=== PATIENT | male | born 1945 | race Two or more races ===

== ENCOUNTER 2021-07-24 15:26 | Emergency (ER) | payer MEDICARE, SELFPAY ==
--- NOTE | ~2021-07-24 | CT_ITS ---
EXAMINATION: CT SOFT TISSUE NECK WITHOUT CONTRAST CLINICAL INFORMATION: Left-sided neck pain. Dysphagia. Difficulty opening mouth. COMPARISON: None TECHNIQUE: Helical imaging was performed in the axial plane with generation of coronal and sagittal reformatted images. This CT examination was performed using dose optimization techniques as appropriate, variously including the following: *Automated exposure control *Adjustment of mA and/or kV according to patient size (this includes techniques or standardized protocols for targeted exams where dose is matched to indication/reason for exam; i.e. extremities or head) *Use of iterative reconstruction technique DLP: 623 mGy-cm FINDINGS: No cervical adenopathy is identified. The parotid glands are homogeneous in attenuation. The submandibular glands are normal. No contour abnormality or pathologic enhancement is seen within the oral cavity or pharyngeal mucosal space. The laryngeal structures are normal. The parapharyngeal fat is preserved. The carotid sheath vasculature opacify normally. No extra mucosal soft tissue mass or fluid collection is seen. No retropharyngeal fluid collection is seen. The thyroid gland is normal. The superior mediastinum is unremarkable. The lung apices are clear. The mastoid air cells and visualized portions of the paranasal sinuses are well-aerated. There is anterior subluxation of the main tibial condyles whereby the left condylar process is perched on the anterior temporal eminence, and the right condylar process is partially subluxed onto the anterior temporal eminence. The degree of subluxation is greater than expected for the positioning of the mandible (jaw relatively closed). End plate osteophytes present at C4-C5, C5-C6 and C6-C7 with accompanying loss of disc space height at C6-C7 and uncovertebral arthrosis. No periapical disease is identified. No osseous abnormalities are seen. The imaged portions of the brain parenchyma are unremarkable. CT/CT soft tissue neck wo con IMPRESSION: No acute soft tissue abnormality to explain the patient's symptom pathology. Anterior subluxation of the mandibular condyles with respect to the mandibular fossae, left greater than right. The clinical significance of this is unclear.
[2021-07-24 15:37] VITALS: BP 134/79; PULSE 80; RESP 18; TEMP 37; O2SAT 96; BMI 30.7
--- NOTE | 2021-07-24 16:46 | ED.GENADULT ---
HPI - General Adult General Chief complaint: General Medical Stated complaint: Neck pain Time Seen by Provider: 07/24/21 16:46 Source: patient and family Mode of arrival: ambulatory Limitations: no limitations History of Present Illness HPI narrative: 76 y/o male presenting with a sore, stiff neck for the last 2 days without any known injury. His pain is worse with movement. It is located on the left anteriolateral aspect of the neck. He reports he feels like something is poking him when he eats and swallows. He is also having a hard time completely opening his jaw because of the pain in his neck. No trouble closing his mouth. He has had no choking episodes. No fever, chills, headache, AMS, ear pain or dental pain. He has multiple medical comorbdities and just recently moved here from [place]. He does not have a PCP in the yet. He comes with his daughter who helps provide history and translate. MD complaint: left sided neck pain Onset (ago): day(s) (2) Location: neck Radiation: non-radiation Severity: moderate Severity scale (1-10): 6 Quality: aching Pain Consistency: intermittent Relieving factors: rest Exacerbating factors: movement Associated symptoms: denies other symptoms Treatments prior to arrival: none Related Data Previous Rx's Medication Instructions Recorded cyclobenzaprine 5 mg tablet 5 mg PO BID PRN #10 tab 07/24/21 Allergies Allergy/AdvReac Type Severity Reaction Status Date / Time No Known Allergies Allergy Verified 07/24/21 15:37 Review of Systems Review of Systems: Constitutional: No Fever, No Chills ENT/Mouth: No sore throat, No Rhinorrhea, No Swallowing Difficulty, No dental pain, No ear pain Eyes: No Eye Pain, No Swelling, No Redness Cardiovascular: No Chest Pain, No SOB, No Orthopnea, + Edema Respiratory: No Cough, No Sputum, No Wheezing, No dyspnea Gastrointestinal: No Nausea, No Vomiting, No Diarrhea, No abdominal Pain Genitourinary: No Dysuria, No Urinary Frequency, No Hematuria Musculoskeletal: + joint pain, + Myalgias Skin: + Skin Lesions, No rash Neuro: No Weakness, No Numbness, No Dizziness, No Headache Heme/Lymph: No Bruising, No Lymphadenopathy PMFSH Past Medical History Medical History (Updated 07/24/21 @ 18:44 by KENJI Koo) Alzheimer's dementia Diabetes HTN (hypertension) Kidney failure Social History Social History Advance Directives: No Advance Directives Information Provided: Yes Physical Exam Vital Signs: Vital Signs: Last Vital Signs Temp 98.5 F 07/24/21 18:29 Pulse 78 07/24/21 18:29 Resp 16 07/24/21 18:29 BP 168/88 H 07/24/21 18:29 Pulse Ox 98 07/24/21 18:29 Body Mass Index 30.7 Appearance: Alert, elderly male laying on the stretcher No acute distress. Eyes: Pupils equal, round and reactive to light. Cataracts present bilaterally ENT: Pharynx normal. Poor dentition without any dental tenderness. Normal TM's bilaterally. No mastoid tenderness. No mandibualr tenderness. Able to open and close jaw. No malocclusion Neck: increased anterior soft tissue/adipose tissue of the neck, no erythema or warmth. soft tissue tenderness on the left side along SCM. no LAD. Pain with rotation to the right. CVS: Normal heart rate and rhythm. Pulses normal. Respiratory: No respiratory distress. Breath sounds normal. Abdomen: Soft and nontender. +BS x4 Skin: Skin warm and dry. Normal skin color. Normal skin turgor. No rashes. Extremities: 2+ lower extremity edema. Neuro: awake and alert, speaks in clear sentences (Portuguese), moves all extremities, came in w/ wheelchair (uses walker at home) Course Course Course Narrative: 76 yo male presenting with nontraumatic left sided neck pain, worse with ROM and palpation. Also reports of FB sensation when he eats and difficulty opening mouth completely (not completely appreciated on exam but daughter reports this). Given his anatomy it is difficult to examine the soft tissues of his neck. Will get CT scan for further evaluation. Reevaluation(s) Reevaluation #1: CT scan showing anterior sublux L>R of the manibular condyles. He has full ROM of this mandible and no problem closing his jaw. Case was d/w and imaging reviewed by Dr. Pickens who also examined the patient. Most likely a chronic finding, possible TMJ. Will give medication to help with spasm in the neck/muscle strain and have him f/u with [facility]. Staff wreath and garland maker hand used to communicate findings and recommendations. Stable for d/c home with outpatient follow up. Discharge Plan Discharge Clinical Impression: TMJ (temporomandibular joint disorder) Neck muscle strain Qualifiers: Encounter type: initial encounter Qualified Code(s): S16.1XXA - Strain of muscle, fascia and tendon at neck level, initial encounter Patient Disposition: Home, Self-Care Instructions: Cervical Strain (ED), Temporomandibular Disorder (ED) Additional Instructions: CT scan showed loose joints in your jaw. No intervention is required at this time. Recommend following up with a oromaxofacial surgeon for further assessment. Take the prescribed medication as needed for neck pain. Use ice and/or heat to the side of your neck as needed for pain. If you develop new or worsening symptoms call 911 or come back to the ER for further evaluation. Prescriptions: New cyclobenzaprine 5 mg tablet 5 mg PO BID PRN (Reason: muscle spasm) Qty: 10 RF: 0 Interventions: ED Discharge Assessment Last Done: 07/24/21 19:53 Discharge Date/Time: 07/24/21 19:58 Print Language: Portuguese
[2021-07-24 18:29] VITALS: BP 168/88; PULSE 78; RESP 16; TEMP 36.9; O2SAT 98
== END 2021-07-24 19:58 | disposition home or self-care (01) ==
PROVIDERS: Emergency Provider Internal Medicine
DX: S16.1XXA Strain of muscle, fascia and tendon at neck level, initial encounter (principal); M54.2 Cervicalgia; M26.603 Bilateral temporomandibular joint disorder, unspecified; X58.XXXA Exposure to other specified factors, initial encounter; Y93.9 Activity, unspecified; Y92.9 Unspecified place or not applicable; Y99.9 Unspecified external cause status; Z79.899 Other long term (current) drug therapy
CPT/HCPCS: 70490; 99284

== ENCOUNTER 2021-09-05 15:18 | Inpatient (IN) | payer MEDICARE, MEDICAID, SELFPAY ==
--- NOTE | ~2021-09-05 | CT_ITS ---
CT HEAD WITHOUT CONTRAST CLINICAL INFORMATION: Confusion. COMPARISON: None available. TECHNIQUE: Contiguous axial imaging was performed from the skull base to vertex without intravenous administration of contrast. This CT examination was performed using dose optimization techniques as appropriate, variously including the following: *Automated exposure control *Adjustment of mA and/or kV according to patient size (this includes techniques or standardized protocols for targeted exams where dose is matched to indication/reason for exam; i.e. extremities or head) *Use of iterative reconstruction technique FINDINGS: There is global cerebral volume loss, there is moderate chronic microangiopathy, and there is atherosclerotic calcification throughout the intracranial arterial vasculature. There is no intracranial hemorrhage, hydrocephalus, extra-axial surface collection, midline shift, or other herniation pattern. Perez to white matter differentiation is diffusely maintained without evidence of an evolved acute territorial infarct. The basilar cisterns are preserved. No significant soft tissue abnormality. No acute osseous abnormality. The paranasal sinuses and the mastoid air cells are well aerated. CT/CT head/brain wo con IMPRESSION: - No acute intracranial abnormality. - There is global cerebral volume loss, there is moderate chronic microangiopathy, and there is atherosclerotic calcification throughout the intracranial arterial vasculature.
--- NOTE | ~2021-09-05 | XR_ITS ---
EXAMINATION: XR CHEST CLINICAL INFORMATION: Confusion COMPARISON: None TECHNIQUE: 2 views of the chest were obtained. FINDINGS: The cardiac silhouette is enlarged. Hilar and mediastinal contours are unremarkable. The lungs are clear. There is bilateral lateral pleural thickening. This may be related to prominent extra pleural fat. There is no pleural effusion. There are degenerative changes of the spine. XR/XR chest 2V IMPRESSION: Enlarged cardiac silhouette. Bilateral lateral pleural thickening probably related to prominent extrapleural fat.
[2021-09-05 15:29] VITALS: BP 135/60; PULSE 110; RESP 18; TEMP 37.3; O2SAT 92; BMI 39.1
--- NOTE | 2021-09-05 15:49 | ECG_ITS ---
Test Reason : WEAKNESS Blood Pressure : / mmHG Vent. Rate : 106 BPM Atrial Rate : 375 BPM P-R Int : 000 ms QRS Dur : 074 ms QT Int : 316 ms P-R-T Axes : 000 040 094 degrees QTc Int : 419 ms Atrial flutter with variable A-V block Low voltage QRS Abnormal ECG No previous ECGs available Referred By: Darius Wells Electronically Signed By:CRUZITO ACEVES MD
--- NOTE | 2021-09-05 15:53 | ED_ITS ---
HPI - General Adult General Chief complaint: General Medical Stated complaint: Weakness, difficulty ambulating Time Seen by Provider: 09/05/21 15:28 Source: patient and family History of Present Illness HPI narrative: Per the patient's son he is much weaker today than his baseline. He has recently been out of his medications from [place]. He has a history of insulin-dependent diabetes. No fevers chills or cough. Positive abdominal distension. No vomiting or diarrhea. Positive urinary incontinence. Positive bilateral pedal edema which is new. Apparently no prior history of similar issues. He denies any other significant focal pain. Related Data Home Medications Medication Instructions Recorded Confirmed allopurinol 300 mg tablet 1 tab PO DAILY 09/05/21 09/05/21 apixaban 5 mg tablet (Eliquis) 1 tab PO BID 09/05/21 09/05/21 citalopram 10 mg tablet 1 tab PO DAILY 09/05/21 09/05/21 donepezil 10 mg tablet 1 tab PO QPM 09/05/21 09/05/21 gabapentin 800 mg tablet 1 tab PO BID 09/05/21 09/05/21 glimepiride 4 mg tablet 1 tab PO BID 09/05/21 09/05/21 irbesartan 300 mg tablet 1 tab PO DAILY 09/05/21 09/05/21 magnesium oxide 1 tab PO DAILY 09/05/21 09/05/21 memantine 10 mg tablet 1 tab PO BID 09/05/21 09/05/21 metoprolol tartrate 100 mg tablet 1 tab PO BID 09/05/21 09/05/21 bcaxfvww-tge-hazje acid 0.4 1 tab PO DAILY 09/05/21 09/05/21 mg-lycopene 300 mcg-lutein 250 mcg tablet (CertaVite Senior) pantoprazole 40 mg tablet,delayed 1 tab PO DAILY 09/05/21 09/05/21 release Previous Rx's Medication Instructions Recorded atorvastatin 40 mg tablet (Lipitor) 40 mg PO BEDTIME #30 tab 09/09/21 bumetanide 1 mg tablet 1 tab PO DAILY #0 tab 09/09/21 Allergies Allergy/AdvReac Type Severity Reaction Status Date / Time No Known Allergies Allergy Verified 09/05/21 20:27 Review of Systems Constitutional: Constitutional: Denies fever(s) Comments: Confusion mental status changes and generalized weakness with inability to walk as of today Cardiovascular: Comments: No chest pain Respiratory: Comments: No dyspnea or cough Gastrointestinal: Comments: Positive abdominal distention without nausea vomiting or diarrhea Genitourinary: Comments: Urinary incontinence at home Musculoskeletal: Comments: Bilateral peripheral edema Integumentary/Breasts: Comments: Redness of bilateral feet and toes Neurologic: Comments: No focal weakness. Positive confusion. Positive generalized weakness PMFSH Past Medical History Medical History Alzheimer's dementia Diabetes HTN (hypertension) Kidney failure Social History Social History Household Members: Family and Children Housing: Apartment Do you presently have visiting nurse or other home services: No Unable to assess alcohol history related to: Unknown Alcohol intake: never Patient Tobacco Use Status: Tobacco use Unknown service: No Current occupational status: retired Physical Exam Vital Signs: Vital Signs: Last Vital Signs Temp 98.7 F 09/09/21 15:13 Pulse 72 09/09/21 15:13 Resp 19 09/09/21 15:13 BP 153/82 H 09/09/21 15:13 Pulse Ox 93 09/09/21 15:13 Body Mass Index 39.1 Const: Other: Generally weak appearing. No acute distress Resp: Other: Clear and equal bilaterally without wheezes rales or rhonchi Cardio: Other: Regular rate and rhythm without murmurs rubs or gallops GI: Other: Soft, nontender. Positive distention. Tympanic to percussion Skin: Other: Warm pink and dry. Bilateral feet with venous stasis changes. Left 3rd toe dorsal aspect with small 0.5 cm circumferential necrotic eschar. No significant surrounding erythema or discharge Neuro: Other: No focal findings Extrem: Other: Bilateral pedal edema, equal Course Course Course Narrative: Mental status change in a diabetic patient was been off his med hernandez. Diabetic ketoacidosis Sepsis Urinary tract infection Dehydration Electrolyte imbalance Acute kidney injury Intracranial hemorrhage or stroke less likely Abdominal distension. Ascites Liver failure Hepatic encephalopathy IV fluids Reevaluation(s) Reevaluation #1: 8:24 p.m.. Workup in emergency department so far shows persistent hyperglycemia despite IV fluids [place]. [place] [address]. D-dimer is normal Potassium is 6. Treated with calcium IV, Kayexalate p.o., insulin IV. Creatinine is 1.96 Continue IV fluids. Hospitalization 8:56 p.m.. Lactic acid is 4.3. Second L of IV fluid artery ordered. Patient is 5 ft 9 in tall. Patient is obese with a BMI > 39. [place] body weight of 70 kilos. Will order total of 2100 mL. No source of infection identified but patient with high white count and high lactic acid. Medical Decision Making Lab Data Result diagrams: 09/09/21 06:06 09/09/21 06:06 Labs: Lab Results 09/05/21 09/05/21 09/05/21 Range/Units 16:05 16:05 16:05 WBC 17.6 H (4.8-10.8) X10*3/uL RBC 4.28 L (4.60-5.80) X10*6/uL Hgb 15.1 (14.0-18.0) g/dl Hct 43.5 (42-52) % MCV 101.6 H (80-98) fL MCH 35.3 H (27.0-33.0) pg MCHC 34.7 (31.0-36.0) g/dl RDW 12.5 (11.0-16.0) % Plt Count 188 (160-400) X10*3/uL MPV 11.7 (9.4-12.4) fL Immature Gran % (Auto) 0.5 H (0.0-0.4) % Neut % (Auto) 86.9 H (45-73) % Lymph % (Auto) 5.9 L (20-40) % [place] % (Auto) 6.2 (2-11) % Eos % (Auto) 0.2 (0-4) % Baso % (Auto) 0.3 (0-2) % Lymph # (Auto) 1.0 L (1.2-4.9) X10*3/uL [place] # (Auto) 1.1 (0.1-1.2) X10*3/uL Eos # (Auto) 0.0 (0.0-0.4) X10*3/uL Baso # (Auto) 0.1 (0.0-0.2) X10*3/uL Abs Immat Gran (auto) 0.08 H (0.00-0.03) X10*3/uL Absolute Neuts (auto) 15.3 H (2.0-8.3) X10*3/uL Absolute Nucleated RBC 0.000 (0.0-0.012) X10*3/uL Nucleated RBC % (auto) 0.0 (0.0-0.2) /100WBC PT 14.9 H (9.9-13.0) SEC INR 1.3 H (0.9-1.1) D-Dimer < 200 NG/ML Sodium (135-145) mmol/L Potassium (3.3-5.1) mmol/L Chloride (96-108) mmol/L Carbon Dioxide (22-29) mmol/L Anion Gap (12-20) BUN (9-16) mg/dL Creatinine (0.5-1.4) mg/dL Estim Creat Clear Calc Estimated GFR POC Glucose (60-115) mg/dL Random Glucose (60-115) mg/dL Lactic Acid (0.5-2.0) mmol/L Lactic Acid Fup @ 2Hr (0.5-2.0) mmol/L Calcium (8.4-10.2) mg/dL Total Bilirubin (0.0-1.0) mg/dL AST (5-37) U/L ALT (0-40) U/L Alkaline Phosphatase (39-117) U/L Ammonia (13-55) umol/L Troponin I High Sens 14.3 (<3.5-35.0) ng/L B-Natriuretic Peptide 310 H (<100) pg/mL Total Protein (6.5-8.0) g/dL Albumin (3.5-5.0) g/dL Lipase (8-78) U/L TSH Urine Color Urine Appearance Urine pH (5.0-8.0) Ur Specific [place] (1.005-1.025) Urine Protein (NEG-TRACE) MG/DL Urine Glucose (UA) (NEG) MG/DL Urine Ketones (NEG) MG/DL Urine Blood (NEG) Urine Nitrite (NEG) Ur Leukocyte Esterase (NEG) Urine RBC (0) /HPF Urine WBC (0-4) /HPF Ur Squamous Epith Cells /LPF Urine Bacteria /LPF Hyaline Casts /LPF Urine Mucus /LPF Urine Opiates Screen (Not Detect) Urine Fentanyl Screen (Not Detect) Ur Barbiturates Screen (Not Detect) Ur Phencyclidine Scrn (Not Detect) Ur Amphetamines Screen (Not Detect) U Benzodiazepines Scrn (Not Detect) Urine Cocaine Screen (Not Detect) U Marijuana (THC) Screen (Not Detect) Ethyl Alcohol mg/dL Acetone, Qual Coronavirus (PCR) (Negative) Influenza Type A (PCR) (Negative) Influenza Type B (PCR) (Negative) RSV RNA Qual (PCR) (Negative) 09/05/21 09/05/21 09/05/21 Range/Units 16:05 16:05 16:05 WBC (4.8-10.8) X10*3/uL RBC (4.60-5.80) X10*6/uL Hgb (14.0-18.0) g/dl Hct (42-52) % MCV (80-98) fL MCH (27.0-33.0) pg MCHC (31.0-36.0) g/dl RDW (11.0-16.0) % Plt Count (160-400) X10*3/uL MPV (9.4-12.4) fL Immature Gran % (Auto) (0.0-0.4) % Neut % (Auto) (45-73) % Lymph % (Auto) (20-40) % [place] % (Auto) (2-11) % Eos % (Auto) (0-4) % Baso % (Auto) (0-2) % Lymph # (Auto) (1.2-4.9) X10*3/uL [place] # (Auto) (0.1-1.2) X10*3/uL Eos # (Auto) (0.0-0.4) X10*3/uL Baso # (Auto) (0.0-0.2) X10*3/uL Abs Immat Gran (auto) (0.00-0.03) X10*3/uL Absolute Neuts (auto) (2.0-8.3) X10*3/uL Absolute Nucleated RBC (0.0-0.012) X10*3/uL Nucleated RBC % (auto) (0.0-0.2) /100WBC PT (9.9-13.0) SEC INR (0.9-1.1) D-Dimer NG/ML Sodium (135-145) mmol/L Potassium (3.3-5.1) mmol/L Chloride (96-108) mmol/L Carbon Dioxide (22-29) mmol/L Anion Gap (12-20) BUN (9-16) mg/dL Creatinine (0.5-1.4) mg/dL Estim Creat Clear Calc Estimated GFR POC Glucose (60-115) mg/dL Random Glucose (60-115) mg/dL Lactic Acid (0.5-2.0) mmol/L Lactic Acid Fup @ 2Hr (0.5-2.0) mmol/L Calcium (8.4-10.2) mg/dL Total Bilirubin (0.0-1.0) mg/dL AST (5-37) U/L ALT (0-40) U/L Alkaline Phosphatase (39-117) U/L Ammonia (13-55) umol/L Troponin I High Sens (<3.5-35.0) ng/L B-Natriuretic Peptide (<100) pg/mL Total Protein (6.5-8.0) g/dL Albumin (3.5-5.0) g/dL Lipase (8-78) U/L TSH Cancelled Urine Color Urine Appearance Urine pH (5.0-8.0) Ur Specific [place] (1.005-1.025) Urine Protein (NEG-TRACE) MG/DL Urine Glucose (UA) (NEG) MG/DL Urine Ketones (NEG) MG/DL Urine Blood (NEG) Urine Nitrite (NEG) Ur Leukocyte Esterase (NEG) Urine RBC (0) /HPF Urine WBC (0-4) /HPF Ur Squamous Epith Cells /LPF Urine Bacteria /LPF Hyaline Casts /LPF Urine Mucus /LPF Urine Opiates Screen (Not Detect) Urine Fentanyl Screen (Not Detect) Ur Barbiturates Screen (Not Detect) Ur Phencyclidine Scrn (Not Detect) Ur Amphetamines Screen (Not Detect) U Benzodiazepines Scrn (Not Detect) Urine Cocaine Screen (Not Detect) U Marijuana (THC) Screen (Not Detect) Ethyl Alcohol < 10 mg/dL Acetone, Qual Cancelled Coronavirus (PCR) NEGATIVE (Negative) Influenza Type A (PCR) NEGATIVE (Negative) Influenza Type B (PCR) NEGATIVE (Negative) RSV RNA Qual (PCR) NEGATIVE (Negative) 09/05/21 09/05/21 09/05/21 Range/Units 17:26 17:26 17:26 WBC (4.8-10.8) X10*3/uL RBC (4.60-5.80) X10*6/uL Hgb (14.0-18.0) g/dl Hct (42-52) % MCV (80-98) fL MCH (27.0-33.0) pg MCHC (31.0-36.0) g/dl RDW (11.0-16.0) % Plt Count (160-400) X10*3/uL MPV (9.4-12.4) fL Immature Gran % (Auto) (0.0-0.4) % Neut % (Auto) (45-73) % Lymph % (Auto) (20-40) % [place] % (Auto) (2-11) % Eos % (Auto) (0-4) % Baso % (Auto) (0-2) % Lymph # (Auto) (1.2-4.9) X10*3/uL [place] # (Auto) (0.1-1.2) X10*3/uL Eos # (Auto) (0.0-0.4) X10*3/uL Baso # (Auto) (0.0-0.2) X10*3/uL Abs Immat Gran (auto) (0.00-0.03) X10*3/uL Absolute Neuts (auto) (2.0-8.3) X10*3/uL Absolute Nucleated RBC (0.0-0.012) X10*3/uL Nucleated RBC % (auto) (0.0-0.2) /100WBC PT (9.9-13.0) SEC INR (0.9-1.1) D-Dimer NG/ML Sodium 131 L (135-145) mmol/L Potassium 6.0 H* (3.3-5.1) mmol/L Chloride 96 (96-108) mmol/L Carbon Dioxide 25 (22-29) mmol/L Anion Gap 16 (12-20) BUN 42 H (9-16) mg/dL Creatinine 1.96 H (0.5-1.4) mg/dL Estim Creat Clear Calc 41.0 Estimated GFR 33 POC Glucose (60-115) mg/dL Random Glucose 467 H* (60-115) mg/dL Lactic Acid 3.6 H* (0.5-2.0) mmol/L Lactic Acid Fup @ 2Hr (0.5-2.0) mmol/L Calcium 8.7 (8.4-10.2) mg/dL Total Bilirubin 1.0 (0.0-1.0) mg/dL AST 15 (5-37) U/L ALT 13 (0-40) U/L Alkaline Phosphatase 103 (39-117) U/L Ammonia 17 (13-55) umol/L Troponin I High Sens (<3.5-35.0) ng/L B-Natriuretic Peptide (<100) pg/mL Total Protein 6.6 (6.5-8.0) g/dL Albumin 3.6 (3.5-5.0) g/dL Lipase 14 (8-78) U/L TSH 1.69 Urine Color Urine Appearance Urine pH (5.0-8.0) Ur Specific [place] (1.005-1.025) Urine Protein (NEG-TRACE) MG/DL Urine Glucose (UA) (NEG) MG/DL Urine Ketones (NEG) MG/DL Urine Blood (NEG) Urine Nitrite (NEG) Ur Leukocyte Esterase (NEG) Urine RBC (0) /HPF Urine WBC (0-4) /HPF Ur Squamous Epith Cells /LPF Urine Bacteria /LPF Hyaline Casts /LPF Urine Mucus /LPF Urine Opiates Screen (Not Detect) Urine Fentanyl Screen (Not Detect) Ur Barbiturates Screen (Not Detect) Ur Phencyclidine Scrn (Not Detect) Ur Amphetamines Screen (Not Detect) U Benzodiazepines Scrn (Not Detect) Urine Cocaine Screen (Not Detect) U Marijuana (THC) Screen (Not Detect) Ethyl Alcohol mg/dL Acetone, Qual Negative Coronavirus (PCR) (Negative) Influenza Type A (PCR) (Negative) Influenza Type B (PCR) (Negative) RSV RNA Qual (PCR) (Negative) 09/05/21 09/05/21 09/05/21 Range/Units 19:41 19:41 20:13 WBC (4.8-10.8) X10*3/uL RBC (4.60-5.80) X10*6/uL Hgb (14.0-18.0) g/dl Hct (42-52) % MCV (80-98) fL MCH (27.0-33.0) pg MCHC (31.0-36.0) g/dl RDW (11.0-16.0) % Plt Count (160-400) X10*3/uL MPV (9.4-12.4) fL Immature Gran % (Auto) (0.0-0.4) % Neut % (Auto) (45-73) % Lymph % (Auto) (20-40) % [place] % (Auto) (2-11) % Eos % (Auto) (0-4) % Baso % (Auto) (0-2) % Lymph # (Auto) (1.2-4.9) X10*3/uL [place] # (Auto) (0.1-1.2) X10*3/uL Eos # (Auto) (0.0-0.4) X10*3/uL Baso # (Auto) (0.0-0.2) X10*3/uL Abs Immat Gran (auto) (0.00-0.03) X10*3/uL Absolute Neuts (auto) (2.0-8.3) X10*3/uL Absolute Nucleated RBC (0.0-0.012) X10*3/uL Nucleated RBC % (auto) (0.0-0.2) /100WBC PT (9.9-13.0) SEC INR (0.9-1.1) D-Dimer NG/ML Sodium (135-145) mmol/L Potassium (3.3-5.1) mmol/L Chloride (96-108) mmol/L Carbon Dioxide (22-29) mmol/L Anion Gap (12-20) BUN (9-16) mg/dL Creatinine (0.5-1.4) mg/dL Estim Creat Clear Calc Estimated GFR POC Glucose 469 H* (60-115) mg/dL Random Glucose (60-115) mg/dL Lactic Acid (0.5-2.0) mmol/L Lactic Acid Fup @ 2Hr (0.5-2.0) mmol/L Calcium (8.4-10.2) mg/dL Total Bilirubin (0.0-1.0) mg/dL AST (5-37) U/L ALT (0-40) U/L Alkaline Phosphatase (39-117) U/L Ammonia (13-55) umol/L Troponin I High Sens (<3.5-35.0) ng/L B-Natriuretic Peptide (<100) pg/mL Total Protein (6.5-8.0) g/dL Albumin (3.5-5.0) g/dL Lipase (8-78) U/L TSH Urine Color YELLOW Urine Appearance CLEAR Urine pH 6.0 (5.0-8.0) Ur Specific [place] 1.010 (1.005-1.025) Urine Protein NEG (NEG-TRACE) MG/DL Urine Glucose (UA) >=1000 H (NEG) MG/DL Urine Ketones 5 (NEG) MG/DL Urine Blood TRACE (NEG) Urine Nitrite NEG (NEG) Ur Leukocyte Esterase NEG (NEG) Urine RBC 0-2 (0) /HPF Urine WBC 0 (0-4) /HPF Ur Squamous Epith Cells TRACE /LPF Urine Bacteria TRACE /LPF Hyaline Casts 1-4 /LPF Urine Mucus TRACE /LPF Urine Opiates Screen Not Detected (Not Detect) Urine Fentanyl Screen Not Detected (Not Detect) Ur Barbiturates Screen Not Detected (Not Detect) Ur Phencyclidine Scrn Not Detected (Not Detect) Ur Amphetamines Screen Not Detected (Not Detect) U Benzodiazepines Scrn Not Detected (Not Detect) Urine Cocaine Screen Not Detected (Not Detect) U Marijuana (THC) Screen Not Detected (Not Detect) Ethyl Alcohol mg/dL Acetone, Qual Coronavirus (PCR) (Negative) Influenza Type A (PCR) (Negative) Influenza Type B (PCR) (Negative) RSV RNA Qual (PCR) (Negative) 09/05/21 Range/Units 20:15 WBC (4.8-10.8) X10*3/uL RBC (4.60-5.80) X10*6/uL Hgb (14.0-18.0) g/dl Hct (42-52) % MCV (80-98) fL MCH (27.0-33.0) pg MCHC (31.0-36.0) g/dl RDW (11.0-16.0) % Plt Count (160-400) X10*3/uL MPV (9.4-12.4) fL Immature Gran % (Auto) (0.0-0.4) % Neut % (Auto) (45-73) % Lymph % (Auto) (20-40) % [place] % (Auto) (2-11) % Eos % (Auto) (0-4) % Baso % (Auto) (0-2) % Lymph # (Auto) (1.2-4.9) X10*3/uL [place] # (Auto) (0.1-1.2) X10*3/uL Eos # (Auto) (0.0-0.4) X10*3/uL Baso # (Auto) (0.0-0.2) X10*3/uL Abs Immat Gran (auto) (0.00-0.03) X10*3/uL Absolute Neuts (auto) (2.0-8.3) X10*3/uL Absolute Nucleated RBC (0.0-0.012) X10*3/uL Nucleated RBC % (auto) (0.0-0.2) /100WBC PT (9.9-13.0) SEC INR (0.9-1.1) D-Dimer NG/ML Sodium (135-145) mmol/L Potassium (3.3-5.1) mmol/L Chloride (96-108) mmol/L Carbon Dioxide (22-29) mmol/L Anion Gap (12-20) BUN (9-16) mg/dL Creatinine (0.5-1.4) mg/dL Estim Creat Clear Calc Estimated GFR POC Glucose (60-115) mg/dL Random Glucose (60-115) mg/dL Lactic Acid (0.5-2.0) mmol/L Lactic Acid Fup @ 2Hr 4.3 H* (0.5-2.0) mmol/L Calcium (8.4-10.2) mg/dL Total Bilirubin (0.0-1.0) mg/dL AST (5-37) U/L ALT (0-40) U/L Alkaline Phosphatase (39-117) U/L Ammonia (13-55) umol/L Troponin I High Sens (<3.5-35.0) ng/L B-Natriuretic Peptide (<100) pg/mL Total Protein (6.5-8.0) g/dL Albumin (3.5-5.0) g/dL Lipase (8-78) U/L TSH Urine Color Urine Appearance Urine pH (5.0-8.0) Ur Specific [place] (1.005-1.025) Urine Protein (NEG-TRACE) MG/DL Urine Glucose (UA) (NEG) MG/DL Urine Ketones (NEG) MG/DL Urine Blood (NEG) Urine Nitrite (NEG) Ur Leukocyte Esterase (NEG) Urine RBC (0) /HPF Urine WBC (0-4) /HPF Ur Squamous Epith Cells /LPF Urine Bacteria /LPF Hyaline Casts /LPF Urine Mucus /LPF Urine Opiates Screen (Not Detect) Urine Fentanyl Screen (Not Detect) Ur Barbiturates Screen (Not Detect) Ur Phencyclidine Scrn (Not Detect) Ur Amphetamines Screen (Not Detect) U Benzodiazepines Scrn (Not Detect) Urine Cocaine Screen (Not Detect) U Marijuana (THC) Screen (Not Detect) Ethyl Alcohol mg/dL Acetone, Qual Coronavirus (PCR) (Negative) Influenza Type A (PCR) (Negative) Influenza Type B (PCR) (Negative) RSV RNA Qual (PCR) (Negative) Discharge Plan Discharge Clinical Impression: Acute kidney injury, Acute hyperglycemia, Acute hyperkalemia Patient Disposition: Admitted As Inpatient Interventions: Admission Worksheet (ED) Last Done: 09/06/21 18:38 Discharge Date/Time: 09/06/21 18:54
[2021-09-05] MEDS: 0.9 % Sodium Chloride 500 ML IV ×2 (16:20→23:04)
[2021-09-05 16:31] LABS: Basophils Absolute Auto 0.1 X10*3/uL (0.0-0.2); Basophils Percent Auto 0.3 % (0-2); Eosinophils Percent Auto 0.2 % (0-4); Hematocrit 43.5 % (42-52); Hemoglobin 15.1 g/dl (14.0-18.0); Imm Gran Abs Auto 0.08 X10*3/uL (0.00-0.03); Imm Gran Pct Auto 0.5 % (0.0-0.4); Lymphocytes Percent Auto 5.9 % (20-40); MANUAL DIFF FLAG NO; Mean Corpuscular HGB Conc 34.7 g/dl (31.0-36.0); Mean Corpuscular Hemoglobin 35.3 pg (27.0-33.0); Mean Corpuscular Volume 101.6 fL (80-98); Mean Platelet Volume 11.7 fL (9.4-12.4); Monocytes Absolute Auto 1.1 X10*3/uL (0.1-1.2); Monocytes Percent Auto 6.2 % (2-11); Neutrophils Absolute Auto 15.3 X10*3/uL (2.0-8.3); Neutrophils Percent Auto 86.9 % (45-73); Platelet Count 188 X10*3/uL (160-400); Red Blood Count 4.28 X10*6/uL (4.60-5.80); Red Cell Distribution Width 12.5 % (11.0-16.0); White Blood Count 17.6 X10*3/uL (4.8-10.8)
[2021-09-05 16:37] LABS: INTERNATIONAL NORM RATIO 1.3 (0.9-1.1); Prothrombin Time 14.9 SEC (9.9-13.0)
[2021-09-05 16:48] LABS: D Dimer < 200 NG/ML
--- NOTE | 2021-09-05 16:50 | PC.NURSE ---
pt eating a large napper grinder and multiple drinks.
[2021-09-05 16:57] LABS: B Type Natriuretic Peptide 310 pg/mL (<100); Troponin-I High Sensitivity 14.3 ng/L (<3.5-35.0)
[2021-09-05 17:13] LABS: Ethanol < 10 mg/dL
[2021-09-05 17:15] VITALS: BP 132/62; PULSE 90; RESP 16; TEMP 36.9; O2SAT 96
[2021-09-05 17:49] LABS: Ammonia 17 umol/L (13-55)
[2021-09-05 18:05] LABS: Lactic Acid 3.6 mmol/L (0.5-2.0)
[2021-09-05 18:08] LABS: Alanine Aminotransferase 13 U/L (0-40); Albumin Level 3.6 g/dL (3.5-5.0); Alkaline Phosphatase 103 U/L (39-117); Anion Gap 16 (12-20); Aspartate Amino Transferase 15 U/L (5-37); Blood Urea Nitrogen 42 mg/dL (9-16); Calcium 8.7 mg/dL (8.4-10.2); Carbon Dioxide 25 mmol/L (22-29); Chloride 96 mmol/L (96-108); Estimated Glomerular Filt Rate 33; Glucose Random 467 mg/dL (60-115); Lipase 14 U/L (8-78); Sodium 131 mmol/L (135-145); Total Protein 6.6 g/dL (6.5-8.0)
[2021-09-05 18:12] LABS: Acetone, serum QL Negative (Negative)
[2021-09-05 18:23] LABS: Thyroid Stimulating Hormone 1.69 uIU/mL (0.32-4.0)
[2021-09-05] MEDS: Calcium Chloride 1 GM/10 ML SYRINGE IVPUSH (18:25)
[2021-09-05] MEDS: Sodium Polystyrene Sulfon/Sorb 15 GM/60 ML ORAL.SUSP 30 GM PO (18:25)
[2021-09-05] MEDS: Insulin Regular, Human 100 UNIT/ML 3 ML VIAL 10 UNIT IVPUSH ×2 (18:25→20:33)
[2021-09-05] MEDS: 0.9 % Sodium Chloride 1,000 ML 999 ML IV ×2 (18:27→20:30)
[2021-09-05 19:30] LABS: Reflex Lactate? Lactic Acid Added
[2021-09-05 19:48] LABS: Appearance Urine CLEAR; Color Urine YELLOW; Glucose Urine UA >=1000 MG/DL (NEG); Leukocyte Esterase Urine NEG (NEG); Nitrite Urine NEG (NEG); UACC Culture Trigger NO; Urine Blood TRACE (NEG); Urine Ketones 5 MG/DL (NEG); Urine Protein NEG (NEG-TRACE)
[2021-09-05 19:56] LABS: Squamous Epithelial Cell Urine TRACE /LPF
[2021-09-05 19:57] LABS: Bacteria Urine TRACE /LPF; Mucus Urine TRACE /LPF; RBC Urine 0-2 /HPF (0); WBC Urine 0 /HPF (0-4)
[2021-09-05 20:00] VITALS: BP 147/76; PULSE 79; RESP 16; TEMP 36.5; O2SAT 95
[2021-09-05 20:06] LABS: Amphetamine Screen Urine Not Detected (Not Detect); Barbiturates, Urine Not Detected (Not Detect); Benzodiazepines Screen Urine Not Detected (Not Detect); Cannabinoid Screen Urine Not Detected (Not Detect); Cocaine Screen Urine Not Detected (Not Detect); Fentanyl, urine Not Detected (Not Detect); Opiate Screen Urine Not Detected (Not Detect); Phencyclidine Screen Urine Not Detected (Not Detect)
[2021-09-05 20:18] LABS: Glucose, Whole Blood 469 mg/dL (60-115)
[2021-09-05] MEDS: Apixaban 5 MG TABLET PO (20:18)
[2021-09-05 20:25] VITALS: BP 162/77; PULSE 90; RESP 16; TEMP 37.1; O2SAT 96
--- NOTE | 2021-09-05 20:27 | PC.NURSE ---
Pt's POC glucose checked is 466. Dr Wells made aware. Plan for more insulin and fluids. Per Priscilla, pt ok for dinner
[2021-09-05 20:56] LABS: ~Lactic Acid-LAB USE ONLY 4.3 mmol/L (0.5-2.0)
[2021-09-05 21:11] LABS: Influenza A PCR NEGATIVE (Negative); Influenza B PCR NEGATIVE (Negative); Resp Syncy Virus RNA Qual PCR NEGATIVE (Negative); SARS COV2 PCR INHOUSE NEGATIVE (Negative)
[2021-09-05 22:20] LABS: Reflex Lactate? 2 Y
[2021-09-05 22:59] VITALS: BP 155/51; PULSE 92; RESP 19
[2021-09-05] MEDS: Piperacillin Sodium/Tazobactam 3.375 GM in 0.9 % Sodium Chloride 50 ML IV (23:04)
--- NOTE | 2021-09-05 23:08 | P.HPHOSP_ITS ---
History of Present Illness Date of Service: 09/05/21 Chief Complaint: Generalized weakness 76-year-old male with a past medical history of hypertension, hyperlipidemia, diabetes, dementia presented to the hospital with a chief complaint of generalized weakness. As reported by the patient's son at bedside patient usually needs help for his activities of daily living. Today patient noted to be more weak and brought him to the hospital for further management. Also mentioned that patient has been eating and drinking okay. Denies any falls or trauma. Denies patient complaining of any chest pain palpitations lightheadedness or dizziness. Complains of chronic cough. Denies any urinary symptoms. Denies any abdominal pain. pt's son not able to recal most pt medical hsitory; mentions the he helps with all pts ADLs Review of all other systems is negative except mentioned above ER course: Per ER team patient on presentation noted to have stable vital; on labs noted to have leukocytosis, lactic acidosis; urinalysis was negative chest x-ray was negative. Also noted to have elevated creatinine and potassium. Patient received insulin dextrose and Kayexalate in the ER. No EKG changes reported. Patient was given Zosyn. Admitted to the hospital for further management. [facility] Medical History (Updated 09/05/21 @ 20:30 by Darius Wells MD) Alzheimer's dementia Diabetes HTN (hypertension) Kidney failure Pertinent family history: Reviewed; diabetes runs in the family Social History Alcohol intake: never Smoked in Last 30 Days: No Use of substances other than those prescribed or required for medical reasons: No Advance Directives: No Advance Directives Information Provided: No Meds Allergies Allergy/AdvReac Type Severity Reaction Status Date / Time No Known Allergies Allergy Verified 09/05/21 20:27 Active Medications: Current Medications Acetaminophen (Acetaminophen 325 Mg Tablet) 650 mg PO Q6H PRN PRN Reason: Pain, Mild (Pain Scale 1-3) Dextrose (Dextrose 50 % 25 Gm/50 Ml Vial) 25 gm IVPUSH Q15M PRN; Protocol PRN Reason: per Hypoglycemia Standing Ord. Glucose (Glucose Gel 15 Gm Gel..Gram.) 15 gm PO Q15M PRN; Protocol PRN Reason: per Hypoglycemia Standing Ord. Sodium Chloride (Ns) 1,000 mls @ 50 mls/hr IVCONT .Q20H [facility] Piperacillin Sod/Tazobactam (Sod 2.25 gm/ Sodium Chloride) 50 mls @ 100 mls/hr IV Q6H [facility] Insulin Glargine (Insulin Glargine,Hum.Rec.Anlog 100 Unit/Ml 10 Ml Vial) 10 unit SUBCUT BEDTIME [facility] Insulin Human Lispro (Insulin Lispro 100 Unit/Ml 3 Ml Vial) 0 unit SUBCUT QIDACHS [facility]; Protocol Melatonin (Melatonin 3 Mg Tablet) 6 mg PO BEDTIME PRN PRN Reason: Insomnia Senna (Sennosides 8.6 Mg Tablet) 17.2 mg PO BEDTIME PRN PRN Reason: Constipation Sodium Chloride (0.9 % Sodium Chloride Flush 3 Ml Syringe) 3 ml IVFLUSH QSIAFT [facility] Home Medications Medication Instructions Recorded Confirmed Last Taken Type allopurinol 300 mg tablet 1 tab PO DAILY 09/05/21 09/05/21 Unknown History apixaban 5 mg tablet (Eliquis) 1 tab PO BID 09/05/21 09/05/21 Unknown History atorvastatin 10 mg tablet 1 tab PO DAILY 09/05/21 09/05/21 Unknown History bumetanide 1 mg tablet 1 tab PO BID 09/05/21 09/05/21 Unknown History citalopram 10 mg tablet 1 tab PO DAILY 09/05/21 09/05/21 Unknown History donepezil 10 mg tablet 1 tab PO QPM 09/05/21 09/05/21 Unknown History gabapentin 800 mg tablet 1 tab PO BID 09/05/21 09/05/21 Unknown History glimepiride 4 mg tablet 1 tab PO BID 09/05/21 09/05/21 Unknown History irbesartan 300 mg tablet 1 tab PO DAILY 09/05/21 09/05/21 Unknown History magnesium oxide 1 tab PO DAILY 09/05/21 09/05/21 Unknown History memantine 10 mg tablet 1 tab PO BID 09/05/21 09/05/21 Unknown History metoprolol tartrate 100 mg tablet 1 tab PO BID 09/05/21 09/05/21 Unknown History ovisfpha-qih-xqxvq acid 0.4 1 tab PO DAILY 09/05/21 09/05/21 Unknown History mg-lycopene 300 mcg-lutein 250 mcg tablet ([employer]ite Senior) pantoprazole 40 mg tablet,delayed 1 tab PO DAILY 09/05/21 09/05/21 Unknown History release Physical Exam Vital Signs and Narrative: Vital Signs: Last Vital Signs Temp 98.8 F 09/05/21 20:25 Pulse 92 09/05/21 22:59 Resp 19 09/05/21 22:59 BP 155/51 H 09/05/21 22:59 Pulse Ox 96 09/05/21 20:25 Body Mass Index 39.1 Gen: Appears be in no acute distress HEENT: NCAT, Moist mucosa. Pulmonary: Vesicular breath sounds, fair air entry CVS: Normal S1-S2 Abdomen: BS+, Soft, Nontender Extremities: Warm well perfused Neuro: Alert and awake. Results Labs CBC and Chem 7: 09/05/21 16:05 09/05/21 23:24 Labs: Laboratory Results - last 24 hr 09/05/21 09/05/21 09/05/21 16:05 16:05 16:05 MCV 101.6 H MCH 35.3 H MCHC 34.7 RDW 12.5 Plt Count 188 MPV 11.7 Immature Gran % (Auto) 0.5 H Neut % (Auto) 86.9 H Lymph % (Auto) 5.[address] [place] % (Auto) 6.2 Eos % (Auto) 0.2 Baso % (Auto) 0.3 Lymph # (Auto) 1.[address] [place] # (Auto) 1.1 Eos # (Auto) 0.0 Baso # (Auto) 0.1 Abs Immat Gran (auto) 0.08 H Absolute Neuts (auto) 15.3 H Absolute Nucleated RBC 0.000 Nucleated RBC % (auto) 0.0 PT 14.9 H INR 1.3 H D-Dimer < 200 Anion Gap Estim Creat Clear Calc Estimated GFR POC Glucose Random Glucose Lactic Acid Lactic Acid Fup @ 2Hr Calcium Total Bilirubin AST ALT Alkaline Phosphatase Ammonia Troponin I High Sens 14.3 B-Natriuretic Peptide 310 H Total Protein Albumin Lipase TSH Urine Color Urine Appearance Urine pH Ur Specific [place] Urine Protein Urine Glucose (UA) Urine Ketones Urine Blood Urine Nitrite Ur Leukocyte Esterase Urine RBC Urine WBC Ur Squamous Epith Cells Urine Bacteria Hyaline Casts Urine Mucus Urine Opiates Screen Urine Fentanyl Screen Ur Barbiturates Screen Ur Phencyclidine Scrn Ur Amphetamines Screen U Benzodiazepines Scrn Urine Cocaine Screen U Marijuana (THC) Screen Ethyl Alcohol Acetone, Qual Coronavirus (PCR) Influenza Type A (PCR) Influenza Type B (PCR) RSV RNA Qual (PCR) 09/05/21 09/05/21 09/05/21 16:05 16:05 16:05 MCV MCH MCHC RDW Plt Count MPV Immature Gran % (Auto) Neut % (Auto) Lymph % (Auto) [place] % (Auto) Eos % (Auto) Baso % (Auto) Lymph # (Auto) [place] # (Auto) Eos # (Auto) Baso # (Auto) Abs Immat Gran (auto) Absolute Neuts (auto) Absolute Nucleated RBC Nucleated RBC % (auto) PT INR D-Dimer Anion Gap Estim Creat Clear Calc Estimated GFR POC Glucose Random Glucose Lactic Acid Lactic Acid Fup @ 2Hr Calcium Total Bilirubin AST ALT Alkaline Phosphatase Ammonia Troponin I High Sens B-Natriuretic Peptide Total Protein Albumin Lipase TSH Cancelled Urine Color Urine Appearance Urine pH Ur Specific [place] Urine Protein Urine Glucose (UA) Urine Ketones Urine Blood Urine Nitrite Ur Leukocyte Esterase Urine RBC Urine WBC Ur Squamous Epith Cells Urine Bacteria Hyaline Casts Urine Mucus Urine Opiates Screen Urine Fentanyl Screen Ur Barbiturates Screen Ur Phencyclidine Scrn Ur Amphetamines Screen U Benzodiazepines Scrn Urine Cocaine Screen U Marijuana (THC) Screen Ethyl Alcohol < 10 Acetone, Qual Cancelled Coronavirus (PCR) NEGATIVE Influenza Type A (PCR) NEGATIVE Influenza Type B (PCR) NEGATIVE RSV RNA Qual (PCR) NEGATIVE 09/05/21 09/05/21 09/05/21 17:26 17:26 17:26 MCV MCH MCHC RDW Plt Count MPV Immature Gran % (Auto) Neut % (Auto) Lymph % (Auto) [place] % (Auto) Eos % (Auto) Baso % (Auto) Lymph # (Auto) [place] # (Auto) Eos # (Auto) Baso # (Auto) Abs Immat Gran (auto) Absolute Neuts (auto) Absolute Nucleated RBC Nucleated RBC % (auto) PT INR D-Dimer Anion Gap 16 Estim Creat Clear Calc 41.0 Estimated GFR 33 POC Glucose Random Glucose 467 H* Lactic Acid 3.6 H* Lactic Acid Fup @ 2Hr Calcium 8.7 Total Bilirubin 1.0 AST 15 ALT 13 Alkaline Phosphatase 103 Ammonia 17 Troponin I High Sens B-Natriuretic Peptide Total Protein 6.6 Albumin 3.6 Lipase 14 TSH 1.69 Urine Color Urine Appearance Urine pH Ur Specific [place] Urine Protein Urine Glucose (UA) Urine Ketones Urine Blood Urine Nitrite Ur Leukocyte Esterase Urine RBC Urine WBC Ur Squamous Epith Cells Urine Bacteria Hyaline Casts Urine Mucus Urine Opiates Screen Urine Fentanyl Screen Ur Barbiturates Screen Ur Phencyclidine Scrn Ur Amphetamines Screen U Benzodiazepines Scrn Urine Cocaine Screen U Marijuana (THC) Screen Ethyl Alcohol Acetone, Qual Negative Coronavirus (PCR) Influenza Type A (PCR) Influenza Type B (PCR) RSV RNA Qual (PCR) 09/05/21 09/05/21 09/05/21 19:41 19:41 20:13 MCV MCH MCHC RDW Plt Count MPV Immature Gran % (Auto) Neut % (Auto) Lymph % (Auto) [place] % (Auto) Eos % (Auto) Baso % (Auto) Lymph # (Auto) [place] # (Auto) Eos # (Auto) Baso # (Auto) Abs Immat Gran (auto) Absolute Neuts (auto) Absolute Nucleated RBC Nucleated RBC % (auto) PT INR D-Dimer Anion Gap Estim Creat Clear Calc Estimated GFR POC Glucose 469 H* Random Glucose Lactic Acid Lactic Acid Fup @ 2Hr Calcium Total Bilirubin AST ALT Alkaline Phosphatase Ammonia Troponin I High Sens B-Natriuretic Peptide Total Protein Albumin Lipase TSH Urine Color YELLOW Urine Appearance CLEAR Urine pH 6.0 Ur Specific [place] 1.010 Urine Protein NEG Urine Glucose (UA) >=1000 H Urine Ketones 5 Urine Blood TRACE Urine Nitrite NEG Ur Leukocyte Esterase NEG Urine RBC 0-2 Urine WBC 0 Ur Squamous Epith Cells TRACE Urine Bacteria TRACE Hyaline Casts 1-4 Urine Mucus TRACE Urine Opiates Screen Not Detected Urine Fentanyl Screen Not Detected Ur Barbiturates Screen Not Detected Ur Phencyclidine Scrn Not Detected Ur Amphetamines Screen Not Detected U Benzodiazepines Scrn Not Detected Urine Cocaine Screen Not Detected U Marijuana (THC) Screen Not Detected Ethyl Alcohol Acetone, Qual Coronavirus (PCR) Influenza Type A (PCR) Influenza Type B (PCR) RSV RNA Qual (PCR) 09/05/21 20:15 MCV MCH MCHC RDW Plt Count MPV Immature Gran % (Auto) Neut % (Auto) Lymph % (Auto) [place] % (Auto) Eos % (Auto) Baso % (Auto) Lymph # (Auto) [place] # (Auto) Eos # (Auto) Baso # (Auto) Abs Immat Gran (auto) Absolute Neuts (auto) Absolute Nucleated RBC Nucleated RBC % (auto) PT INR D-Dimer Anion Gap Estim Creat Clear Calc Estimated GFR POC Glucose Random Glucose Lactic Acid Lactic Acid Fup @ 2Hr 4.3 H* Calcium Total Bilirubin AST ALT Alkaline Phosphatase Ammonia Troponin I High Sens B-Natriuretic Peptide Total Protein Albumin Lipase TSH Urine Color Urine Appearance Urine pH Ur Specific [place] Urine Protein Urine Glucose (UA) Urine Ketones Urine Blood Urine Nitrite Ur Leukocyte Esterase Urine RBC Urine WBC Ur Squamous Epith Cells Urine Bacteria Hyaline Casts Urine Mucus Urine Opiates Screen Urine Fentanyl Screen Ur Barbiturates Screen Ur Phencyclidine Scrn Ur Amphetamines Screen U Benzodiazepines Scrn Urine Cocaine Screen U Marijuana (THC) Screen Ethyl Alcohol Acetone, Qual Coronavirus (PCR) Influenza Type A (PCR) Influenza Type B (PCR) RSV RNA Qual (PCR) Imaging Radiologist's Impressions: Impressions Head CT 09/05/21 15:49 IMPRESSION: - No acute intracranial abnormality. - There is global cerebral volume loss, there is moderate chronic microangiopathy, and there is atherosclerotic calcification throughout the intracranial arterial vasculature. Chest X-Ray 09/05/21 15:50 IMPRESSION: Enlarged cardiac silhouette. Bilateral lateral pleural thickening probably related to prominent extrapleural fat. Assessment and Plan (1) Acute kidney injury: Status: Acute (2) Acute hyperglycemia: Status: Acute (3) Acute hyperkalemia: Status: Acute 76-year-old male with a past medical history of hypertension, hyperlipidemia, diabetes, dementia presented to the hospital with a chief complaint of generalized weakness. Noted to have JAMES/hyperkalemia/question sepsis with a clear source. Admitted for further management. Generalized weakness: Multifactorial. Supportive care. Gentle IV fluids. JAMES: ? hx CKD - unknown baseline. Continue IV fluids. Monitor renal function. Avoid nephrotoxins. Hold home Bulmaro inhibitors. Hold home bumex for now. Hyperkalemia: Reportedly EKG showed no acute findings. Received insulin dextrose. Repeat BMP. Patient was also given Kayexalate in the ER. Sepsis: Patient noted to have lactic acidosis, tachycardia, leukocytosis. Unclear source. Patient complains of chronic dry cough. Continue Zosyn. Follow the fever curve. Diabetes: Insulin sliding scale. Hold home medications. Dementia: Continue home donepezil. Hx Afib:on eliquis; rate controlled; c/ home metoprolol for all other chronic medical conditions c/w home meds Will defer to AM team to obtain records from PCP DVT prophylaxis: SCD boots Code status: Full code Quality Stroke Does the patient have a stroke diagnosis?: No VTE Prior VTE?: No VTE Risk Level:: Medical - low VTE Device Contraindication: Treatment Not Indicated VTE Drug Contraindication: N/A - Med Ordered
[2021-09-05 23:22] LABS: Glucose, Whole Blood 410 mg/dL (60-115)
--- NOTE | 2021-09-05 23:43 | PC.NURSE ---
Med rec prformed by this RN at 2300. All meds confirmed by pharmacy and bottles provided by family. When report given to Jasmin LANE, Jasmin made aware that insulin is only medication still outstanding in med rec pending confirmation of dosing from family
[2021-09-05 23:55] LABS: ~Lactic Acid-LAB USE ONLY 3.1 mmol/L (0.5-2.0)
[2021-09-05 23:56] LABS: Anion Gap 15 (12-20); Blood Urea Nitrogen 38 mg/dL (9-16); Calcium 8.8 mg/dL (8.4-10.2); Carbon Dioxide 24 mmol/L (22-29); Chloride 99 mmol/L (96-108); Creatinine Clr Calc Pharmacy 43.9; Estimated Glomerular Filt Rate 36; Glucose Random 467 mg/dL (60-115); Potassium 5.1 mmol/L (3.3-5.1); Sodium 133 mmol/L (135-145)
[2021-09-06] VITALS (9 sets, daily range): BP systolic 124–172; BP diastolic 62–90; PULSE 82–103; RESP 14–20; TEMP 36.7; O2SAT 97–100
--- NOTE | 2021-09-06 | ECG_ITS ---
Test Reason : HIGH POTASSIUM Blood Pressure : / mmHG Vent. Rate : 069 BPM Atrial Rate : 070 BPM P-R Int : 000 ms QRS Dur : 082 ms QT Int : 404 ms P-R-T Axes : 000 072 096 degrees QTc Int : 432 ms Atrial fibrillation Low voltage QRS Nonspecific ST and T wave abnormality Abnormal ECG When compared with ECG of 05-SEP-2021 16:11, Atrial fibrillation has replaced Atrial flutter Vent. rate has decreased BY 37 BPM Referred By: Sue Wild Electronically Signed By:CRUZITO ACEVES MD
--- NOTE | 2021-09-06 | ECG_ITS ---
Test Reason : REPEAT EKG Blood Pressure : / mmHG Vent. Rate : 071 BPM Atrial Rate : 065 BPM P-R Int : 000 ms QRS Dur : 082 ms QT Int : 392 ms P-R-T Axes : 000 067 083 degrees QTc Int : 425 ms Atrial fibrillation Nonspecific T wave abnormality Abnormal ECG When compared with ECG of 06-SEP-2021 14:20, No significant change was found Referred By: Anum Hall Electronically Signed By:CRUZITO ACEVES MD
[2021-09-06 00:20] LABS: Troponin-I High Sensitivity 94.6 ng/L (<3.5-35.0)
[2021-09-06] MEDS: 0.9 % Sodium Chloride 1,000 ML 50 ML IVCONT (00:26)
[2021-09-06] MEDS: Piperacillin Sodium/Tazobactam 2.25 GM in 0.9 % Sodium Chloride 50 ML IV ×4 (04:50→23:41)
--- NOTE | 2021-09-06 04:52 | PC.NURSE ---
medication due at 0330 is not available till pharmacy comes in.
[2021-09-06 07:15] LABS: MANUAL DIFF FLAG NO
[2021-09-06 07:23] LABS: Basophils Percent Auto 0.3 % (0-2); Eosinophils Absolute Auto 0.2 X10*3/uL (0.0-0.4); Eosinophils Percent Auto 1.8 % (0-4); Hematocrit 39.2 % (42-52); Hemoglobin 13.3 g/dl (14.0-18.0); Imm Gran Abs Auto 0.03 X10*3/uL (0.00-0.03); Imm Gran Pct Auto 0.3 % (0.0-0.4); Lymphocytes Absolute Auto 1.1 X10*3/uL (1.2-4.9); Lymphocytes Percent Auto 11.5 % (20-40); Mean Corpuscular HGB Conc 33.9 g/dl (31.0-36.0); Mean Corpuscular Hemoglobin 34.5 pg (27.0-33.0); Mean Corpuscular Volume 101.6 fL (80-98); Mean Platelet Volume 10.9 fL (9.4-12.4); Monocytes Absolute Auto 0.9 X10*3/uL (0.1-1.2); Monocytes Percent Auto 9.2 % (2-11); Neutrophils Absolute Auto 7.1 X10*3/uL (2.0-8.3); Neutrophils Percent Auto 76.9 % (45-73); Platelet Count 152 X10*3/uL (160-400); Red Blood Count 3.86 X10*6/uL (4.60-5.80); Red Cell Distribution Width 12.3 % (11.0-16.0); White Blood Count 9.3 X10*3/uL (4.8-10.8)
[2021-09-06 07:48] LABS: Anion Gap 13 (12-20); Blood Urea Nitrogen 32 mg/dL (9-16); Calcium 8.7 mg/dL (8.4-10.2); Carbon Dioxide 26 mmol/L (22-29); Chloride 101 mmol/L (96-108); Creatinine Clr Calc Pharmacy 53.2; Estimated Glomerular Filt Rate 45; Glucose Random 361 mg/dL (60-115); Potassium 4.5 mmol/L (3.3-5.1); Sodium 135 mmol/L (135-145)
[2021-09-06 08:10] LABS: Glucose, Whole Blood 316 mg/dL (60-115)
[2021-09-06] MEDS: Insulin Lispro 100 UNIT/ML 3 ML VIAL SUBCUT ×4 (08:14→20:42)
[2021-09-06] MEDS: Omeprazole 20 MG CAPSULE.DR PO (08:15)
[2021-09-06] MEDS: Atorvastatin Calcium 10 MG TABLET PO (08:15)
[2021-09-06] MEDS: Memantine HCl 10 MG TABLET PO ×2 (08:15→20:46)
[2021-09-06] MEDS: Apixaban 5 MG TABLET PO (08:15)
[2021-09-06] MEDS: Gabapentin 400 MG CAPSULE 800 MG PO ×2 (08:15→20:24)
[2021-09-06] MEDS: Escitalopram Oxalate 5 MG TABLET PO (08:15)
[2021-09-06] MEDS: allopurinoL 300 MG TABLET PO (08:15)
[2021-09-06] MEDS: Multivitamin TABLET 1 TAB PO (08:15)
[2021-09-06] MEDS: 0.9 % Sodium Chloride Flush 3 ML SYRINGE IVFLUSH ×2 (08:37→23:41)
[2021-09-06] MEDS: Metoprolol Tartrate 100 MG TABLET PO ×2 (08:38→20:46)
[2021-09-06 09:41] LABS: Troponin-I High Sensitivity 275.5 ng/L (<3.5-35.0)
[2021-09-06 09:47] LABS: Alanine Aminotransferase 13 U/L (0-40); Albumin Level 3.4 g/dL (3.5-5.0); Alkaline Phosphatase 93 U/L (39-117); Aspartate Amino Transferase 16 U/L (5-37); Bilirubin Direct 0.4 mg/dL (0.0-0.5); Total Protein 6.2 g/dL (6.5-8.0)
[2021-09-06 11:17] LABS: Glucose, Whole Blood 321 mg/dL (60-115)
[2021-09-06] MEDS: Lactated Ringers 1,000 ML 100 ML IVCONT ×2 (11:24→22:58)
--- NOTE | 2021-09-06 11:31 | MHC.CM.PN ---
Attempted to meet with patient in regards to discharge planning. Nursing care currently being provided. Will attempt to meet again. Continue to monitor for d/c needs.
--- NOTE | 2021-09-06 13:24 | PM.IMPN ---
Progress Note: A&P (1) NSTEMI (non-ST elevated myocardial infarction): Status: Acute (2) Atrial fibrillation: Status: Acute (3) Acute kidney injury: Status: Acute (4) Diabetes mellitus: Status: Acute Assessment and Plan: 76-year-old male with a past medical history of hypertension, hyperlipidemia, diabetes, dementia presented to the hospital with a chief complaint of generalized weakness.? Noted to have JAMES/hyperkalemia/question sepsis with a clear source.? Admitted for further management. NSTEMI. Troponin range 14.3, 64.6, 275.5 ? secondary OK from hyperglycemia, dehydration Start heparin at 8pm (last dose of eliquis at 0800) Echo Cardiology following JAMES ? hx CKD unknown baseline. Continue IV fluids.? Monitor renal function.? Avoid nephrotoxins.? Hold home Bulmaro inhibitors and bumex for now. Hyperkalemia. resolved EKG showed no acute findings.? Received insulin dextrose, Kayexalate in the ER. Repeat BMP.? Diabetes with hyperglemia Insulin sliding scale.? Hold home medications. Dementia Continue home donepezil. Hx Afib rate controlled; c/ home metoprolol DVT prophylaxis:?Heparin drip Code status:? Full code Attending Dr. Morel Subjective Subjective Date of Service: 09/06/21 Review of Systems Follow up weakness, hyperglycemia denies chest pain, sob, nausea, vomiting Physical Exam Vital Signs: Vital Signs: Last Vital Signs Temp 98.8 F 09/05/21 20:25 Pulse 82 09/06/21 11:35 Resp 20 09/06/21 11:35 BP 124/74 09/06/21 11:35 Pulse Ox 97 09/06/21 11:35 Body Mass Index 39.1 Appearing in no acute distress lung sounds are clear to auscultation heart regular rate rhythm, clear S1, S2 positive bowel sounds, abdomen is soft, nontender neuro patient is alert x3, no focal deficits Objective Data Current Medications Acetaminophen (Acetaminophen 325 Mg Tablet) 650 mg PO Q6H PRN PRN Reason: Pain, Mild (Pain Scale 1-3) Allopurinol (Allopurinol 300 Mg Tablet) 300 mg PO DAILY [facility] Last Admin: 09/06/21 08:15 Dose: 300 mg Documented by: Apixaban (Apixaban 5 Mg Tablet) 5 mg PO BID [facility] Last Admin: 09/06/21 08:15 Dose: 5 mg Documented by: Atorvastatin Calcium (Atorvastatin Calcium 10 Mg Tablet) 10 mg PO DAILY [facility] Last Admin: 09/06/21 08:15 Dose: 10 mg Documented by: Dextrose (Dextrose 50 % 25 Gm/50 Ml Vial) 25 gm IVPUSH Q15M PRN; Protocol PRN Reason: per Hypoglycemia Standing Ord. Donepezil HCl (Donepezil Hcl 10 Mg Tablet) 10 mg PO BEDTIME [facility] Last Admin: 09/06/21 07:27 Dose: Not Given Documented by: Escitalopram Oxalate (Escitalopram Oxalate 5 Mg Tablet) 5 mg PO DAILY [facility] Last Admin: 09/06/21 08:15 Dose: 5 mg Documented by: Gabapentin (Gabapentin 400 Mg Capsule) 800 mg PO BID [facility] Last Admin: 09/06/21 08:15 Dose: 800 mg Documented by: Glucose (Glucose Gel 15 Gm Gel..Gram.) 15 gm PO Q15M PRN; Protocol PRN Reason: per Hypoglycemia Standing Ord. Piperacillin Sod/Tazobactam (Sod 2.25 gm/ Sodium Chloride) 50 mls @ 100 mls/hr IV Q6H [facility] Last Admin: 09/06/21 11:24 Dose: 100 mls/hr Documented by: Lactated Ringer's (Lr) 1,000 mls @ 100 mls/hr IVCONT .Q10H [facility] Last Admin: 09/06/21 11:24 Dose: 100 mls/hr Documented by: Insulin Glargine (Insulin Glargine,Hum.Rec.Anlog 100 Unit/Ml 10 Ml Vial) 10 unit SUBCUT BEDTIME [facility] Insulin Human Lispro (Insulin Lispro 100 Unit/Ml 3 Ml Vial) 0.1 - 10 unit SUBCUT QIDACHS [facility]; Protocol Last Admin: 09/06/21 11:23 Dose: 8 unit Documented by: Melatonin (Melatonin 3 Mg Tablet) 6 mg PO BEDTIME PRN PRN Reason: Insomnia Memantine (Memantine Hcl 10 Mg Tablet) 10 mg PO BID [facility] Last Admin: 09/06/21 08:15 Dose: 10 mg Documented by: Metoprolol Tartrate (Metoprolol Tartrate 100 Mg Tablet) 100 mg PO BID [facility]; Protocol Last Admin: 09/06/21 08:38 Dose: 100 mg Documented by: Multivitamins/Vitamin C (Multivitamin Tablet) 1 tab PO DAILY [facility] Last Admin: 09/06/21 08:15 Dose: 1 tab Documented by: Omeprazole (Omeprazole 20 Mg Capsule.Dr) 20 mg PO DAILY [facility] Last Admin: 09/06/21 08:15 Dose: 20 mg Documented by: Senna (Sennosides 8.6 Mg Tablet) 17.2 mg PO BEDTIME PRN PRN Reason: Constipation Sodium Chloride (0.9 % Sodium Chloride Flush 3 Ml Syringe) 3 ml IVFLUSH QSHIFT [facility] Last Admin: 09/06/21 08:37 Dose: 3 ml Documented by: Labs CBC & Chem 7: 09/06/21 07:05 09/06/21 07:05 Labs: Laboratory Results - last 24 hr 09/05/21 09/05/21 09/05/21 16:05 16:05 16:05 MCV 101.6 H MCH 35.3 H MCHC 34.7 RDW 12.5 Plt Count 188 MPV 11.7 Immature Gran % (Auto) 0.5 H Neut % (Auto) 86.9 H Lymph % (Auto) 5.9 L [place] % (Auto) 6.2 Eos % (Auto) 0.2 Baso % (Auto) 0.3 Lymph # (Auto) 1.0 L [place] # (Auto) 1.1 Eos # (Auto) 0.0 Baso # (Auto) 0.1 Abs Immat Gran (auto) 0.08 H Absolute Neuts (auto) 15.3 H Absolute Nucleated RBC 0.000 Nucleated RBC % (auto) 0.0 PT 14.9 H INR 1.3 H D-Dimer < 200 Anion Gap Estim Creat Clear Calc Estimated GFR POC Glucose Random Glucose Lactic Acid Lactic Acid Fup @ 2Hr Lactic Acid Fup @ 4Hr Calcium Total Bilirubin Direct Bilirubin AST ALT Alkaline Phosphatase Ammonia Troponin I High Sens 14.3 B-Natriuretic Peptide 310 H Total Protein Albumin Lipase TSH Urine Color Urine Appearance Urine pH Ur Specific [place] Urine Protein Urine Glucose (UA) Urine Ketones Urine Blood Urine Nitrite Ur Leukocyte Esterase Urine RBC Urine WBC Ur Squamous Epith Cells Urine Bacteria Hyaline Casts Urine Mucus Urine Opiates Screen Urine Fentanyl Screen Ur Barbiturates Screen Ur Phencyclidine Scrn Ur Amphetamines Screen U Benzodiazepines Scrn Urine Cocaine Screen U Marijuana (THC) Screen Ethyl Alcohol Acetone, Qual Coronavirus (PCR) Influenza Type A (PCR) Influenza Type B (PCR) RSV RNA Qual (PCR) 10/11/21 10/11/21 10/11/21 16:05 16:05 16:05 MCV MCH MCHC RDW Plt Count MPV Immature Gran % (Auto) Neut % (Auto) Lymph % (Auto) [place] % (Auto) Eos % (Auto) Baso % (Auto) Lymph # (Auto) [place] # (Auto) Eos # (Auto) Baso # (Auto) Abs Immat Gran (auto) Absolute Neuts (auto) Absolute Nucleated RBC Nucleated RBC % (auto) PT INR D-Dimer Anion Gap Estim Creat Clear Calc Estimated GFR POC Glucose Random Glucose Lactic Acid Lactic Acid Fup @ 2Hr Lactic Acid Fup @ 4Hr Calcium Total Bilirubin Direct Bilirubin AST ALT Alkaline Phosphatase Ammonia Troponin I High Sens B-Natriuretic Peptide Total Protein Albumin Lipase TSH Cancelled Urine Color Urine Appearance Urine pH Ur Specific [place] Urine Protein Urine Glucose (UA) Urine Ketones Urine Blood Urine Nitrite Ur Leukocyte Esterase Urine RBC Urine WBC Ur Squamous Epith Cells Urine Bacteria Hyaline Casts Urine Mucus Urine Opiates Screen Urine Fentanyl Screen Ur Barbiturates Screen Ur Phencyclidine Scrn Ur Amphetamines Screen U Benzodiazepines Scrn Urine Cocaine Screen U Marijuana (THC) Screen Ethyl Alcohol < 10 Acetone, Qual Cancelled Coronavirus (PCR) NEGATIVE Influenza Type A (PCR) NEGATIVE Influenza Type B (PCR) NEGATIVE RSV RNA Qual (PCR) NEGATIVE 09/05/21 09/05/21 09/05/21 17:26 17:26 17:26 MCV MCH MCHC RDW Plt Count MPV Immature Gran % (Auto) Neut % (Auto) Lymph % (Auto) [place] % (Auto) Eos % (Auto) Baso % (Auto) Lymph # (Auto) [place] # (Auto) Eos # (Auto) Baso # (Auto) Abs Immat Gran (auto) Absolute Neuts (auto) Absolute Nucleated RBC Nucleated RBC % (auto) PT INR D-Dimer Anion Gap 16 Estim Creat Clear Calc 41.0 Estimated GFR 33 POC Glucose Random Glucose 467 H* Lactic Acid 3.6 H* Lactic Acid Fup @ 2Hr Lactic Acid Fup @ 4Hr Calcium 8.7 Total Bilirubin 1.0 Direct Bilirubin AST 15 ALT 13 Alkaline Phosphatase 103 Ammonia 17 Troponin I High Sens B-Natriuretic Peptide Total Protein 6.6 Albumin 3.6 Lipase 14 TSH 1.69 Urine Color Urine Appearance Urine pH Ur Specific [place] Urine Protein Urine Glucose (UA) Urine Ketones Urine Blood Urine Nitrite Ur Leukocyte Esterase Urine RBC Urine WBC Ur Squamous Epith Cells Urine Bacteria Hyaline Casts Urine Mucus Urine Opiates Screen Urine Fentanyl Screen Ur Barbiturates Screen Ur Phencyclidine Scrn Ur Amphetamines Screen U Benzodiazepines Scrn Urine Cocaine Screen U Marijuana (THC) Screen Ethyl Alcohol Acetone, Qual Negative Coronavirus (PCR) Influenza Type A (PCR) Influenza Type B (PCR) RSV RNA Qual (PCR) 09/05/21 09/05/21 09/05/21 19:41 19:41 20:13 MCV MCH MCHC RDW Plt Count MPV Immature Gran % (Auto) Neut % (Auto) Lymph % (Auto) [place] % (Auto) Eos % (Auto) Baso % (Auto) Lymph # (Auto) Good[place] # (Auto) Eos # (Auto) Baso # (Auto) Abs Immat Gran (auto) Absolute Neuts (auto) Absolute Nucleated RBC Nucleated RBC % (auto) PT INR D-Dimer Anion Gap Estim Creat Clear Calc Estimated GFR POC Glucose 469 H* Random Glucose Lactic Acid Lactic Acid Fup @ 2Hr Lactic Acid Fup @ 4Hr Calcium Total Bilirubin Direct Bilirubin AST ALT Alkaline Phosphatase Ammonia Troponin I High Sens B-Natriuretic Peptide Total Protein Albumin Lipase TSH Urine Color YELLOW Urine Appearance CLEAR Urine pH 6.0 Ur Specific [place] 1.010 Urine Protein NEG Urine Glucose (UA) >=1000 H Urine Ketones 5 Urine Blood TRACE Urine Nitrite NEG Ur Leukocyte Esterase NEG Urine RBC 0-2 Urine WBC 0 Ur Squamous Epith Cells TRACE Urine Bacteria TRACE Hyaline Casts 1-4 Urine Mucus TRACE Urine Opiates Screen Not Detected Urine Fentanyl Screen Not Detected Ur Barbiturates Screen Not Detected Ur Phencyclidine Scrn Not Detected Ur Amphetamines Screen Not Detected U Benzodiazepines Scrn Not Detected Urine Cocaine Screen Not Detected U Marijuana (THC) Screen Not Detected Ethyl Alcohol Acetone, Qual Coronavirus (PCR) Influenza Type A (PCR) Influenza Type B (PCR) RSV RNA Qual (PCR) 09/05/21 09/05/21 09/05/21 20:15 22:57 23:24 MCV MCH MCHC RDW Plt Count MPV Immature Gran % (Auto) Neut % (Auto) Lymph % (Auto) [place] % (Auto) Eos % (Auto) Baso % (Auto) Lymph # (Auto) [place] # (Auto) Eos # (Auto) Baso # (Auto) Abs Immat Gran (auto) Absolute Neuts (auto) Absolute Nucleated RBC Nucleated RBC % (auto) PT INR D-Dimer Anion Gap Estim Creat Clear Calc Estimated GFR POC Glucose 410 H* Random Glucose Lactic Acid Lactic Acid Fup @ 2Hr 4.3 H* Lactic Acid Fup @ 4Hr 3.1 H* Calcium Total Bilirubin Direct Bilirubin AST ALT Alkaline Phosphatase Ammonia Troponin I High Sens B-Natriuretic Peptide Total Protein Albumin Lipase TSH Urine Color Urine Appearance Urine pH Ur Specific [place] Urine Protein Urine Glucose (UA) Urine Ketones Urine Blood Urine Nitrite Ur Leukocyte Esterase Urine RBC Urine WBC Ur Squamous Epith Cells Urine Bacteria Hyaline Casts Urine Mucus Urine Opiates Screen Urine Fentanyl Screen Ur Barbiturates Screen Ur Phencyclidine Scrn Ur Amphetamines Screen U Benzodiazepines Scrn Urine Cocaine Screen U Marijuana (THC) Screen Ethyl Alcohol Acetone, Qual Coronavirus (PCR) Influenza Type A (PCR) Influenza Type B (PCR) RSV RNA Qual (PCR) 09/05/21 09/05/21 09/06/21 23:24 23:24 07:05 MCV 101.6 H MCH 34.5 H MCHC 33.9 RDW 12.3 Plt Count 152 L MPV 10.9 Immature Gran % (Auto) 0.3 Neut % (Auto) 76.9 H Lymph % (Auto) 11.5 L [place] % (Auto) 9.2 Eos % (Auto) 1.8 Baso % (Auto) 0.3 Lymph # (Auto) 1.1 L [place] # (Auto) 0.9 Eos # (Auto) 0.2 Baso # (Auto) 0.0 Abs Immat Gran (auto) 0.03 Absolute Neuts (auto) 7.1 Absolute Nucleated RBC 0.000 Nucleated RBC % (auto) 0.0 PT INR D-Dimer Anion Gap 15 Estim Creat Clear Calc 43.9 Estimated GFR 36 POC Glucose Random Glucose 467 H* Lactic Acid Lactic Acid Fup @ 2Hr Lactic Acid Fup @ 4Hr Calcium 8.8 Total Bilirubin Direct Bilirubin AST ALT Alkaline Phosphatase Ammonia Troponin I High Sens 94.6 H* D B-Natriuretic Peptide Total Protein Albumin Lipase TSH Urine Color Urine Appearance Urine pH Ur Specific [place] Urine Protein Urine Glucose (UA) Urine Ketones Urine Blood Urine Nitrite Ur Leukocyte Esterase Urine RBC Urine WBC Ur Squamous Epith Cells Urine Bacteria Hyaline Casts Urine Mucus Urine Opiates Screen Urine Fentanyl Screen Ur Barbiturates Screen Ur Phencyclidine Scrn Ur Amphetamines Screen U Benzodiazepines Scrn Urine Cocaine Screen U Marijuana (THC) Screen Ethyl Alcohol Acetone, Qual Coronavirus (PCR) Influenza Type A (PCR) Influenza Type B (PCR) RSV RNA Qual (PCR) 09/06/21 09/06/21 09/06/21 07:05 07:05 08:06 MCV MCH MCHC RDW Plt Count MPV Immature Gran % (Auto) Neut % (Auto) Lymph % (Auto) [place] % (Auto) Eos % (Auto) Baso % (Auto) Lymph # (Auto) [place] # (Auto) Eos # (Auto) Baso # (Auto) Abs Immat Gran (auto) Absolute Neuts (auto) Absolute Nucleated RBC Nucleated RBC % (auto) PT INR D-Dimer Anion Gap 13 Estim Creat Clear Calc 53.2 Estimated GFR 45 POC Glucose 316 H Random Glucose 361 H* Lactic Acid Lactic Acid Fup @ 2Hr Lactic Acid Fup @ 4Hr Calcium 8.7 Total Bilirubin 1.0 Direct Bilirubin 0.4 AST 16 ALT 13 Alkaline Phosphatase 93 Ammonia Troponin I High Sens 275.5 H* D B-Natriuretic Peptide Total Protein 6.2 L Albumin 3.4 L Lipase TSH Urine Color Urine Appearance Urine pH Ur Specific [place] Urine Protein Urine Glucose (UA) Urine Ketones Urine Blood Urine Nitrite Ur Leukocyte Esterase Urine RBC Urine WBC Ur Squamous Epith Cells Urine Bacteria Hyaline Casts Urine Mucus Urine Opiates Screen Urine Fentanyl Screen Ur Barbiturates Screen Ur Phencyclidine Scrn Ur Amphetamines Screen U Benzodiazepines Scrn Urine Cocaine Screen U Marijuana (THC) Screen Ethyl Alcohol Acetone, Qual Coronavirus (PCR) Influenza Type A (PCR) Influenza Type B (PCR) RSV RNA Qual (PCR) 09/06/21 11:14 MCV MCH MCHC RDW Plt Count MPV Immature Gran % (Auto) Neut % (Auto) Lymph % (Auto) [place] % (Auto) Eos % (Auto) Baso % (Auto) Lymph # (Auto) [place] # (Auto) Eos # (Auto) Baso # (Auto) Abs Immat Gran (auto) Absolute Neuts (auto) Absolute Nucleated RBC Nucleated RBC % (auto) PT INR D-Dimer Anion Gap Estim Creat Clear Calc Estimated GFR POC Glucose 321 H Random Glucose Lactic Acid Lactic Acid Fup @ 2Hr Lactic Acid Fup @ 4Hr Calcium Total Bilirubin Direct Bilirubin AST ALT Alkaline Phosphatase Ammonia Troponin I High Sens B-Natriuretic Peptide Total Protein Albumin Lipase TSH Urine Color Urine Appearance Urine pH Ur Specific [place] Urine Protein Urine Glucose (UA) Urine Ketones Urine Blood Urine Nitrite Ur Leukocyte Esterase Urine RBC Urine WBC Ur Squamous Epith Cells Urine Bacteria Hyaline Casts Urine Mucus Urine Opiates Screen Urine Fentanyl Screen Ur Barbiturates Screen Ur Phencyclidine Scrn Ur Amphetamines Screen U Benzodiazepines Scrn Urine Cocaine Screen U Marijuana (THC) Screen Ethyl Alcohol Acetone, Qual Coronavirus (PCR) Influenza Type A (PCR) Influenza Type B (PCR) RSV RNA Qual (PCR) Quality Stroke Does the patient have a stroke diagnosis?: No VTE Prior VTE?: No VTE Risk Level:: Medical - low VTE Device Contraindication: Treatment Not Indicated VTE Drug Contraindication: N/A - Med Ordered
--- NOTE | 2021-09-06 14:17 | MHC.CM.PN ---
Addendum entered by Chaya Saul 09/06/21 14:19: Patient received 2 covid vaccines in [place]. Original Note: Attempted to meet with patient in regards to discharge planning. Patient has a history of dementia. Met with patient's daughter in law, Migd[place] and senior clinical research associate. Patient was living in [place] until about 2 months ago. Patient is now living with his son and daughter in law, uses a walker for mobility and had no services prior to coming to the hospital. PCP verified as Shasta Villafana. However, his first appointment with her is 09/28/2021. Services will not be able to be obtained until this PCP appointment is completed. Copy of HCP obtained from [facility]. IMM explained and signed. Patient will need BLS transportation when medically stable. Continue to monitor for d/c needs.
[2021-09-06 15:20] LABS: Troponin-I High Sensitivity 691.6 ng/L (<3.5-35.0)
--- NOTE | 2021-09-06 15:41 | PM.CNCAR ---
History of Present Illness History of Present Illness Date of Service: 09/06/21 Requesting physician: Sue Wild Consult reason: atrial fibrillation and troponin elevation Chief complaint: Hyperkalemia Narrative: I was requested to see [place] in cardiology consultation today for elevated troponins. History was obtained from the chart and from his [id number]. Patient not able to provide much history. He on however questioning denies any chest pain or shortness of breath. He was brought in by family because he was extremely weak and he had urinary accident yesterday. He was not able to get up or function and therefore the family got concerned and brought him to the emergency room. Day before he did have similar symptoms but that subsided. He has had no fever or chills. He does have cough but nonproductive. Denies any urinary symptoms. No chest pain or shortness of breath. No palpitations. He was recently brought back from [place] by his son who has not seen him in 7 years. This was due to poor care in [place] by his extended family members. He does have dementia but recently his memory has worsened. He does have prior history of diabetes. No prior history of any cardiac issues as per the daughter in law. Not known atrial fibrillation as per her. He has never had a heart attack or any cardiac revascularization procedures. On admission noted to have marked hyperglycemia, acute kidney injury, lactic acidosis, leukocytosis. He has been started on antibiotics. Source of infection is unknown at this point in time. He has been hydrated. His creatinine is down trended. His troponin was done for unclear reasons as patient did not have any ischemic symptoms. There been rising with last troponin in the 600 range. Review of Systems Review of Systems: Yes Unobtainable due to mental status Neurologic: Reports confusion Psychiatric: Psychiatric: Reports confusion [facility] Past Medical History Medical History Alzheimer's dementia Diabetes HTN (hypertension) Kidney failure Social History Social History Alcohol intake: never Smoked in Last 30 Days: No Use of substances other than those prescribed or required for medical reasons: No Advance Directives: No Advance Directives Information Provided: No service: No Current occupational status: retired Meds Allergies Allergy/AdvReac Type Severity Reaction Status Date / Time No Known Allergies Allergy Verified 09/05/21 20:27 Active Medications: Current Medications Acetaminophen (Acetaminophen 325 Mg Tablet) 650 mg PO Q6H PRN PRN Reason: Pain, Mild (Pain Scale 1-3) Allopurinol (Allopurinol 300 Mg Tablet) 300 mg PO DAILY [facility] Last Admin: 09/06/21 08:15 Dose: 300 mg Documented by: Atorvastatin Calcium (Atorvastatin Calcium 10 Mg Tablet) 10 mg PO DAILY [facility] Last Admin: 09/06/21 08:15 Dose: 10 mg Documented by: Dextrose (Dextrose 50 % 25 Gm/50 Ml Vial) 25 gm IVPUSH Q15M PRN; Protocol PRN Reason: per Hypoglycemia Standing Ord. Donepezil HCl (Donepezil Hcl 10 Mg Tablet) 10 mg PO BEDTIME [facility] Last Admin: 09/06/21 07:27 Dose: Not Given Documented by: Escitalopram Oxalate (Escitalopram Oxalate 5 Mg Tablet) 5 mg PO DAILY [facility] Last Admin: 09/06/21 08:15 Dose: 5 mg Documented by: Gabapentin (Gabapentin 400 Mg Capsule) 800 mg PO BID [facility] Last Admin: 09/06/21 08:15 Dose: 800 mg Documented by: Glucose (Glucose Gel 15 Gm Gel..Gram.) 15 gm PO Q15M PRN; Protocol PRN Reason: per Hypoglycemia Standing Ord. Heparin Sodium (Porcine) (Heparin Sodium,Porcine 5,000 Unit/Ml Vial) 4,800 unit 40 unit/kg (4800 unit) IVPUSH PROTOCOL BOLUS PRN; Protocol PRN Reason: 40 unit/kg - Heparin Protocol Heparin Sodium (Porcine) (Heparin Sodium,Porcine 5,000 Unit/Ml Vial) 9,600 unit 80 unit/kg (9600 unit) IVPUSH PROTOCOL BOLUS PRN; Protocol PRN Reason: 80 unit/kg - Heparin Protocol Piperacillin Sod/Tazobactam (Sod 2.25 gm/ Sodium Chloride) 50 mls @ 100 mls/hr IV Q6H [facility] Last Infusion: 09/06/21 13:37 Dose: Infused Documented by: Lactated Ringer's (Lr) 1,000 mls @ 100 mls/hr IVCONT .Q10H [facility] Last Admin: 09/06/21 11:24 Dose: 100 mls/hr Documented by: Heparin Sodium/Sodium Chloride () 25,000 unit in 250 mls @ 0 mls/hr IVCONT .Q0M [facility]; Protocol Insulin Glargine (Insulin Glargine,Hum.Rec.Anlog 100 Unit/Ml 10 Ml Vial) 10 unit SUBCUT BEDTIME [facility] Insulin Human Lispro (Insulin Lispro 100 Unit/Ml 3 Ml Vial) 0.1 - 10 unit SUBCUT QIDACHS [facility]; Protocol Last Admin: 09/06/21 11:23 Dose: 8 unit Documented by: Melatonin (Melatonin 3 Mg Tablet) 6 mg PO BEDTIME PRN PRN Reason: Insomnia Memantine (Memantine Hcl 10 Mg Tablet) 10 mg PO BID [facility] Last Admin: 09/06/21 08:15 Dose: 10 mg Documented by: Metoprolol Tartrate (Metoprolol Tartrate 100 Mg Tablet) 100 mg PO BID [facility]; Protocol Last Admin: 09/06/21 08:38 Dose: 100 mg Documented by: Multivitamins/Vitamin C (Multivitamin Tablet) 1 tab PO DAILY [facility] Last Admin: 09/06/21 08:15 Dose: 1 tab Documented by: Omeprazole (Omeprazole 20 Mg Capsule.Dr) 20 mg PO DAILY [facility] Last Admin: 09/06/21 08:15 Dose: 20 mg Documented by: Senna (Sennosides 8.6 Mg Tablet) 17.2 mg PO BEDTIME PRN PRN Reason: Constipation Sodium Chloride (0.9 % Sodium Chloride Flush 3 Ml Syringe) 3 ml IVFLUSH QSHIFT [facility] Last Admin: 09/06/21 08:37 Dose: 3 ml Documented by: Home Medications Medication Instructions Recorded Confirmed Last Taken Type allopurinol 300 mg tablet 1 tab PO DAILY 09/05/21 09/05/21 Unknown History apixaban 5 mg tablet (Eliquis) 1 tab PO BID 09/05/21 09/05/21 Unknown History atorvastatin 10 mg tablet 1 tab PO DAILY 09/05/21 09/05/21 Unknown History bumetanide 1 mg tablet 1 tab PO BID 09/05/21 09/05/21 Unknown History citalopram 10 mg tablet 1 tab PO DAILY 09/05/21 09/05/21 Unknown History donepezil 10 mg tablet 1 tab PO QPM 09/05/21 09/05/21 Unknown History gabapentin 800 mg tablet 1 tab PO BID 09/05/21 09/05/21 Unknown History glimepiride 4 mg tablet 1 tab PO BID 09/05/21 09/05/21 Unknown History irbesartan 300 mg tablet 1 tab PO DAILY 09/05/21 09/05/21 Unknown History magnesium oxide 1 tab PO DAILY 09/05/21 09/05/21 Unknown History memantine 10 mg tablet 1 tab PO BID 09/05/21 09/05/21 Unknown History metoprolol tartrate 100 mg tablet 1 tab PO BID 09/05/21 09/05/21 Unknown History hiqjggmn-[id number] acid 0.4 1 tab PO DAILY 09/05/21 09/05/21 Unknown History mg-lycopene 300 mcg-lutein 250 mcg tablet (CertaVite Senior) pantoprazole 40 mg tablet,delayed 1 tab PO DAILY 09/05/21 09/05/21 Unknown History release Physical Exam Vital Signs: Vital Signs: Last Vital Signs Temp 98.8 F 09/05/21 20:25 Pulse 82 09/06/21 11:35 Resp 20 09/06/21 11:35 BP 124/74 09/06/21 11:35 Pulse Ox 97 09/06/21 11:35 Body Mass Index 39.1 Const: General: cooperative, comfortable, confusion and lethargic Nutritional Appearance: obese Orientation/consciousness: confusion and lethargic HENMT: Head: Yes normocephalic and Yes atraumatic Neck: Neck: Yes trachea midline, Yes supple and Yes no JVD Resp: Effort & Inspection: normal respiratory effort Auscultation: clear to auscultation bilaterally Cardio: Jugular venous distension: no JVD Palpation: normal PMI Rate: regular rate Rhythm: abnormal rhythm irregularly irregular Heart sounds: S1 normal heart sound present, S2 normal heart sound present, no click, no gallops, no murmurs and no rubs GI: Inspection: Yes obesity Auscultation: normal bowel sounds Skin: General skin exam: no rashes or lesions noted Neuro: General: no focal motor deficits and confusion Extrem: General: Yes no clubbing, cyanosis or edema Results Labs and Meds Result diagrams: 09/06/21 07:05 09/06/21 07:05 Lab results: Laboratory Results - last 24 hr 09/05/21 09/05/21 09/05/21 16:05 16:05 16:05 WBC 17.6 H RBC 4.28 L Hgb 15.1 Hct 43.5 MCV 101.6 H MCH 35.3 H MCHC 34.7 RDW 12.5 Plt Count 188 MPV 11.7 Immature Gran % (Auto) 0.5 H Neut % (Auto) 86.9 H Lymph % (Auto) 5.9 L Morrison % (Auto) 6.2 Eos % (Auto) 0.2 Baso % (Auto) 0.3 Lymph # (Auto) 1.0 L Morrison # (Auto) 1.1 Eos # (Auto) 0.0 Baso # (Auto) 0.1 Abs Immat Gran (auto) 0.08 H Absolute Neuts (auto) 15.3 H Absolute Nucleated RBC 0.000 Nucleated RBC % (auto) 0.0 PT 14.9 H INR 1.3 H D-Dimer < 200 Sodium Potassium Chloride Carbon Dioxide Anion Gap BUN Creatinine Estim Creat Clear Calc Estimated GFR POC Glucose Random Glucose Lactic Acid Lactic Acid Fup @ 2Hr Lactic Acid Fup @ 4Hr Calcium Total Bilirubin Direct Bilirubin AST ALT Alkaline Phosphatase Ammonia Troponin I High Sens 14.3 B-Natriuretic Peptide 310 H Total Protein Albumin Lipase TSH Urine Color Urine Appearance Urine pH Ur Specific [place] Urine Protein Urine Glucose (UA) Urine Ketones Urine Blood Urine Nitrite Ur Leukocyte Esterase Urine RBC Urine WBC Ur Squamous Epith Cells Urine Bacteria Hyaline Casts Urine Mucus Urine Opiates Screen Urine Fentanyl Screen Ur Barbiturates Screen Ur Phencyclidine Scrn Ur Amphetamines Screen U Benzodiazepines Scrn Urine Cocaine Screen U Marijuana (THC) Screen Ethyl Alcohol Acetone, Qual Coronavirus (PCR) Influenza Type A (PCR) Influenza Type B (PCR) RSV RNA Qual (PCR) 09/05/21 09/05/21 09/05/21 16:05 16:05 16:05 WBC RBC Hgb Hct MCV MCH MCHC RDW Plt Count MPV Immature Gran % (Auto) Neut % (Auto) Lymph % (Auto) Morrison % (Auto) Eos % (Auto) Baso % (Auto) Lymph # (Auto) [place] # (Auto) Eos # (Auto) Baso # (Auto) Abs Immat Gran (auto) Absolute Neuts (auto) Absolute Nucleated RBC Nucleated RBC % (auto) PT INR D-Dimer Sodium Potassium Chloride Carbon Dioxide Anion Gap BUN Creatinine Estim Creat Clear Calc Estimated GFR POC Glucose Random Glucose Lactic Acid Lactic Acid Fup @ 2Hr Lactic Acid Fup @ 4Hr Calcium Total Bilirubin Direct Bilirubin AST ALT Alkaline Phosphatase Ammonia Troponin I High Sens B-Natriuretic Peptide Total Protein Albumin Lipase TSH Cancelled Urine Color Urine Appearance Urine pH Ur Specific [place] Urine Protein Urine Glucose (UA) Urine Ketones Urine Blood Urine Nitrite Ur Leukocyte Esterase Urine RBC Urine WBC Ur Squamous Epith Cells Urine Bacteria Hyaline Casts Urine Mucus Urine Opiates Screen Urine Fentanyl Screen Ur Barbiturates Screen Ur Phencyclidine Scrn Ur Amphetamines Screen U Benzodiazepines Scrn Urine Cocaine Screen U Marijuana (THC) Screen Ethyl Alcohol < 10 Acetone, Qual Cancelled Coronavirus (PCR) NEGATIVE Influenza Type A (PCR) NEGATIVE Influenza Type B (PCR) NEGATIVE RSV RNA Qual (PCR) NEGATIVE 09/05/21 09/05/21 09/05/21 17:26 17:26 17:26 WBC RBC Hgb Hct MCV MCH MCHC RDW Plt Count MPV Immature Gran % (Auto) Neut % (Auto) Lymph % (Auto) [place] % (Auto) Eos % (Auto) Baso % (Auto) Lymph # (Auto) [place] # (Auto) Eos # (Auto) Baso # (Auto) Abs Immat Gran (auto) Absolute Neuts (auto) Absolute Nucleated RBC Nucleated RBC % (auto) PT INR D-Dimer Sodium 131 L Potassium 6.0 H* Chloride 96 Carbon Dioxide 25 Anion Gap 16 BUN 42 H Creatinine 1.96 H Estim Creat Clear Calc 41.0 Estimated GFR 33 POC Glucose Random Glucose 467 H* Lactic Acid 3.6 H* Lactic Acid Fup @ 2Hr Lactic Acid Fup @ 4Hr Calcium 8.7 Total Bilirubin 1.0 Direct Bilirubin AST 15 ALT 13 Alkaline Phosphatase 103 Ammonia 17 Troponin I High Sens B-Natriuretic Peptide Total Protein 6.6 Albumin 3.6 Lipase 14 TSH 1.69 Urine Color Urine Appearance Urine pH Ur Specific [place] Urine Protein Urine Glucose (UA) Urine Ketones Urine Blood Urine Nitrite Ur Leukocyte Esterase Urine RBC Urine WBC Ur Squamous Epith Cells Urine Bacteria Hyaline Casts Urine Mucus Urine Opiates Screen Urine Fentanyl Screen Ur Barbiturates Screen Ur Phencyclidine Scrn Ur Amphetamines Screen U Benzodiazepines Scrn Urine Cocaine Screen U Marijuana (THC) Screen Ethyl Alcohol Acetone, Qual Negative Coronavirus (PCR) Influenza Type A (PCR) Influenza Type B (PCR) RSV RNA Qual (PCR) 09/05/21 09/05/21 09/05/21 19:41 19:41 20:13 WBC RBC Hgb Hct MCV MCH MCHC RDW Plt Count MPV Immature Gran % (Auto) Neut % (Auto) Lymph % (Auto) [place] % (Auto) Eos % (Auto) Baso % (Auto) Lymph # (Auto) [place] # (Auto) Eos # (Auto) Baso # (Auto) Abs Immat Gran (auto) Absolute Neuts (auto) Absolute Nucleated RBC Nucleated RBC % (auto) PT INR D-Dimer Sodium Potassium Chloride Carbon Dioxide Anion Gap BUN Creatinine Estim Creat Clear Calc Estimated GFR POC Glucose 469 H* Random Glucose Lactic Acid Lactic Acid Fup @ 2Hr Lactic Acid Fup @ 4Hr Calcium Total Bilirubin Direct Bilirubin AST ALT Alkaline Phosphatase Ammonia Troponin I High Sens B-Natriuretic Peptide Total Protein Albumin Lipase TSH Urine Color YELLOW Urine Appearance CLEAR Urine pH 6.0 Ur Specific [place] 1.010 Urine Protein NEG Urine Glucose (UA) >=1000 H Urine Ketones 5 Urine Blood TRACE Urine Nitrite NEG Ur Leukocyte Esterase NEG Urine RBC 0-2 Urine WBC 0 Ur Squamous Epith Cells TRACE Urine Bacteria TRACE Hyaline Casts 1-4 Urine Mucus TRACE Urine Opiates Screen Not Detected Urine Fentanyl Screen Not Detected Ur Barbiturates Screen Not Detected Ur Phencyclidine Scrn Not Detected Ur Amphetamines Screen Not Detected U Benzodiazepines Scrn Not Detected Urine Cocaine Screen Not Detected U Marijuana (THC) Screen Not Detected Ethyl Alcohol Acetone, Qual Coronavirus (PCR) Influenza Type A (PCR) Influenza Type B (PCR) RSV RNA Qual (PCR) 09/05/21 09/05/21 09/05/21 20:15 22:57 23:24 WBC RBC Hgb Hct MCV MCH MCHC RDW Plt Count MPV Immature Gran % (Auto) Neut % (Auto) Lymph % (Auto) [place] % (Auto) Eos % (Auto) Baso % (Auto) Lymph # (Auto) [place] # (Auto) Eos # (Auto) Baso # (Auto) Abs Immat Gran (auto) Absolute Neuts (auto) Absolute Nucleated RBC Nucleated RBC % (auto) PT INR D-Dimer Sodium Potassium Chloride Carbon Dioxide Anion Gap BUN Creatinine Estim Creat Clear Calc Estimated GFR POC Glucose 410 H* Random Glucose Lactic Acid Lactic Acid Fup @ 2Hr 4.3 H* Lactic Acid Fup @ 4Hr 3.1 H* Calcium Total Bilirubin Direct Bilirubin AST ALT Alkaline Phosphatase Ammonia Troponin I High Sens B-Natriuretic Peptide Total Protein Albumin Lipase TSH Urine Color Urine Appearance Urine pH Ur Specific [place] Urine Protein Urine Glucose (UA) Urine Ketones Urine Blood Urine Nitrite Ur Leukocyte Esterase Urine RBC Urine WBC Ur Squamous Epith Cells Urine Bacteria Hyaline Casts Urine Mucus Urine Opiates Screen Urine Fentanyl Screen Ur Barbiturates Screen Ur Phencyclidine Scrn Ur Amphetamines Screen U Benzodiazepines Scrn Urine Cocaine Screen U Marijuana (THC) Screen Ethyl Alcohol Acetone, Qual Coronavirus (PCR) Influenza Type A (PCR) Influenza Type B (PCR) RSV RNA Qual (PCR) 09/05/21 09/05/21 09/06/21 23:24 23:24 07:05 WBC 9.3 RBC 3.86 L Hgb 13.3 L Hct 39.2 L MCV 101.6 H MCH 34.5 H MCHC 33.9 RDW 12.3 Plt Count 152 L MPV 10.9 Immature Gran % (Auto) 0.3 Neut % (Auto) 76.9 H Lymph % (Auto) 11.5 L [place] % (Auto) 9.2 Eos % (Auto) 1.8 Baso % (Auto) 0.3 Lymph # (Auto) 1.1 L [place] # (Auto) 0.9 Eos # (Auto) 0.2 Baso # (Auto) 0.0 Abs Immat Gran (auto) 0.03 Absolute Neuts (auto) 7.1 Absolute Nucleated RBC 0.000 Nucleated RBC % (auto) 0.0 PT INR D-Dimer Sodium 133 L Potassium 5.1 Chloride 99 Carbon Dioxide 24 Anion Gap 15 BUN 38 H Creatinine 1.83 H Estim Creat Clear Calc 43.9 Estimated GFR 36 POC Glucose Random Glucose 467 H* Lactic Acid Lactic Acid Fup @ 2Hr Lactic Acid Fup @ 4Hr Calcium 8.8 Total Bilirubin Direct Bilirubin AST ALT Alkaline Phosphatase Ammonia Troponin I High Sens 94.6 H* D B-Natriuretic Peptide Total Protein Albumin Lipase TSH Urine Color Urine Appearance Urine pH Ur Specific [place] Urine Protein Urine Glucose (UA) Urine Ketones Urine Blood Urine Nitrite Ur Leukocyte Esterase Urine RBC Urine WBC Ur Squamous Epith Cells Urine Bacteria Hyaline Casts Urine Mucus Urine Opiates Screen Urine Fentanyl Screen Ur Barbiturates Screen Ur Phencyclidine Scrn Ur Amphetamines Screen U Benzodiazepines Scrn Urine Cocaine Screen U Marijuana (THC) Screen Ethyl Alcohol Acetone, Qual Coronavirus (PCR) Influenza Type A (PCR) Influenza Type B (PCR) RSV RNA Qual (PCR) 09/06/21 09/06/21 09/06/21 07:05 07:05 08:06 WBC RBC Hgb Hct MCV MCH MCHC RDW Plt Count MPV Immature Gran % (Auto) Neut % (Auto) Lymph % (Auto) [place] % (Auto) Eos % (Auto) Baso % (Auto) Lymph # (Auto) [place] # (Auto) Eos # (Auto) Baso # (Auto) Abs Immat Gran (auto) Absolute Neuts (auto) Absolute Nucleated RBC Nucleated RBC % (auto) PT INR D-Dimer Sodium 135 Potassium 4.5 Chloride 101 Carbon Dioxide 26 Anion Gap 13 BUN 32 H Creatinine 1.51 H Estim Creat Clear Calc 53.2 Estimated GFR 45 POC Glucose 316 H Random Glucose 361 H* Lactic Acid Lactic Acid Fup @ 2Hr Lactic Acid Fup @ 4Hr Calcium 8.7 Total Bilirubin 1.0 Direct Bilirubin 0.4 AST 16 ALT 13 Alkaline Phosphatase 93 Ammonia Troponin I High Sens 275.5 H* D B-Natriuretic Peptide Total Protein 6.2 L Albumin 3.4 L Lipase TSH Urine Color Urine Appearance Urine pH Ur Specific [place] Urine Protein Urine Glucose (UA) Urine Ketones Urine Blood Urine Nitrite Ur Leukocyte Esterase Urine RBC Urine WBC Ur Squamous Epith Cells Urine Bacteria Hyaline Casts Urine Mucus Urine Opiates Screen Urine Fentanyl Screen Ur Barbiturates Screen Ur Phencyclidine Scrn Ur Amphetamines Screen U Benzodiazepines Scrn Urine Cocaine Screen U Marijuana (THC) Screen Ethyl Alcohol Acetone, Qual Coronavirus (PCR) Influenza Type A (PCR) Influenza Type B (PCR) RSV RNA Qual (PCR) 09/06/21 09/06/21 11:14 14:27 WBC RBC Hgb Hct MCV MCH MCHC RDW Plt Count MPV Immature Gran % (Auto) Neut % (Auto) Lymph % (Auto) [place] % (Auto) Eos % (Auto) Baso % (Auto) Lymph # (Auto) [place] # (Auto) Eos # (Auto) Baso # (Auto) Abs Immat Gran (auto) Absolute Neuts (auto) Absolute Nucleated RBC Nucleated RBC % (auto) PT INR D-Dimer Sodium Potassium Chloride Carbon Dioxide Anion Gap BUN Creatinine Estim Creat Clear Calc Estimated GFR POC Glucose 321 H Random Glucose Lactic Acid Lactic Acid Fup @ 2Hr Lactic Acid Fup @ 4Hr Calcium Total Bilirubin Direct Bilirubin AST ALT Alkaline Phosphatase Ammonia Troponin I High Sens 691.6 H* D B-Natriuretic Peptide Total Protein Albumin Lipase TSH Urine Color Urine Appearance Urine pH Ur Specific [place] Urine Protein Urine Glucose (UA) Urine Ketones Urine Blood Urine Nitrite Ur Leukocyte Esterase Urine RBC Urine WBC Ur Squamous Epith Cells Urine Bacteria Hyaline Casts Urine Mucus Urine Opiates Screen Urine Fentanyl Screen Ur Barbiturates Screen Ur Phencyclidine Scrn Ur Amphetamines Screen U Benzodiazepines Scrn Urine Cocaine Screen U Marijuana (THC) Screen Ethyl Alcohol Acetone, Qual Coronavirus (PCR) Influenza Type A (PCR) Influenza Type B (PCR) RSV RNA Qual (PCR) Imaging Radiologist's impression: Impressions Head CT 09/05/21 15:49 IMPRESSION: - No acute intracranial abnormality. - There is global cerebral volume loss, there is moderate chronic microangiopathy, and there is atherosclerotic calcification throughout the intracranial arterial vasculature. Chest X-Ray 09/05/21 15:50 IMPRESSION: Enlarged cardiac silhouette. Bilateral lateral pleural thickening probably related to prominent extrapleural fat. Assessment and Plan (1) NSTEMI (non-ST elevated myocardial infarction): Status: Acute Elevated troponin rising with no symptoms and EKG changes. It appears to be secondary to his acute medical process including acidosis and acute kidney injury. Patient has no ischemic symptoms at this point time. However as he has underlying atrial fibrillation can start him on IV heparin and then switch him to oral anticoagulant therapy. Echocardiogram needs to be pursued. Continue to trend troponin to see the peak. Metoprolol and high-intensity statin therapy. (2) Atrial fibrillation: Status: Acute Atrial fibrillation currently rate control. Unknown duration. Continue metoprolol therapy as above. Echocardiogram as above. Eventually will switch from IV heparin to oral anticoagulant therapy with Eliquis based on his renal function improvement. Most likely will be 5 mg b.i.d.. Will follow with you Procedures Date of Service Date of Service: 09/06/21
[2021-09-06 15:52] LABS: Hematocrit 40.1 % (42-52); Hemoglobin 13.4 g/dl (14.0-18.0); Mean Corpuscular HGB Conc 33.4 g/dl (31.0-36.0); Mean Corpuscular Hemoglobin 34.3 pg (27.0-33.0); Mean Corpuscular Volume 102.6 fL (80-98); Mean Platelet Volume 11.1 fL (9.4-12.4); Platelet Count 159 X10*3/uL (160-400); Red Blood Count 3.91 X10*6/uL (4.60-5.80); Red Cell Distribution Width 12.6 % (11.0-16.0)
[2021-09-06 15:57] LABS: INTERNATIONAL NORM RATIO 1.3 (0.9-1.1); Prothrombin Time 14.9 SEC (9.9-13.0)
[2021-09-06 16:00] LABS: PTT Heparin Drip 38.5 SEC (53-77.9)
--- NOTE | 2021-09-06 17:12 | PC.NURSE ---
Updated pt and family on plan of care.
[2021-09-06 17:25] LABS: Glucose, Whole Blood 294 mg/dL (60-115)
[2021-09-06] MEDS: Aspirin 81 MG TAB.CHEW PO (18:01)
[2021-09-06 20:17] LABS: Glucose, Whole Blood 416 mg/dL (60-115)
[2021-09-06] MEDS: Heparin Sodium,Porcine/1/2NS 25,000 UNIT/250 ML IV.SOLN 16.83 UNIT IVCONT (20:20)
[2021-09-06] MEDS: Donepezil HCl 10 MG TABLET PO (20:24)
[2021-09-06] MEDS: Insulin Glargine,Hum.rec.anlog 100 UNIT/ML 10 ML VIAL 10 UNIT SUBCUT (20:38)
[2021-09-06] MEDS: Atorvastatin Calcium 40 MG TABLET PO (20:49)
[2021-09-07] VITALS (7 sets, daily range): BP systolic 116–154; BP diastolic 70–85; PULSE 68–99; RESP 15–17; TEMP 36.2–36.8; O2SAT 95–98
--- NOTE | 2021-09-07 00:37 | PC.NURSE ---
This nurse started Heparin gtt @2000 running at 14u/kg/hr based off of weight 124.6kg. PTTHD to be drawn at 0200. POC 416 Patient received 10units Lantus, 10units Humalog reported to and there was no additional humalog ordered to be given at this time.
[2021-09-07 02:30] LABS: PTT Heparin Drip 162.1 SEC (53-77.9)
[2021-09-07 04:35] LABS: Hematocrit 38.5 % (42-52); Hemoglobin 13.3 g/dl (14.0-18.0); Mean Corpuscular HGB Conc 34.5 g/dl (31.0-36.0); Mean Corpuscular Hemoglobin 35.4 pg (27.0-33.0); Mean Corpuscular Volume 102.4 fL (80-98); Mean Platelet Volume 10.7 fL (9.4-12.4); Platelet Count 150 X10*3/uL (160-400); Red Blood Count 3.76 X10*6/uL (4.60-5.80); Red Cell Distribution Width 12.5 % (11.0-16.0); White Blood Count 7.2 X10*3/uL (4.8-10.8)
[2021-09-07 04:45] LABS: PTT Heparin Drip 65.1 SEC (53-77.9)
[2021-09-07 05:10] LABS: Anion Gap 12 (12-20); Blood Urea Nitrogen 27 mg/dL (9-16); Calcium 8.3 mg/dL (8.4-10.2); Carbon Dioxide 28 mmol/L (22-29); Chloride 102 mmol/L (96-108); Creatinine Clr Calc Pharmacy 53.6; Estimated Glomerular Filt Rate 46; Glucose Random 359 mg/dL (60-115); Potassium 4.8 mmol/L (3.3-5.1); Sodium 137 mmol/L (135-145)
[2021-09-07] MEDS: Piperacillin Sodium/Tazobactam 2.25 GM in 0.9 % Sodium Chloride 50 ML IV (05:35)
[2021-09-07] MEDS: Lactated Ringers 1,000 ML 100 ML IVCONT (05:39)
--- NOTE | 2021-09-07 06:14 | PC.NURSE ---
care assumed 23:15...napping overnight..easily aroused..denies pain or sob...heparin drip 14 units/kg/hr...2am ptt-sr=870.1 heparin drip held per protocol...serial ptt's drawn...heparin drip restarted 10 units/kg/hr at 5am after ptt down to <93...for 11am ptt-hd....respirations easy...sao2 96-97% with 2 l/m cannula...asleep cyclic sao2 trends from 97% to transient 86%..? undiagnosed sleep apnea...asymptomatic when awakened
[2021-09-07 07:03] LABS: INTERNATIONAL NORM RATIO 1.2 (0.9-1.1); Prothrombin Time 13.6 SEC (9.9-13.0)
[2021-09-07 07:13] LABS: Glucose, Whole Blood 320 mg/dL (60-115)
[2021-09-07] MEDS: Insulin Lispro 100 UNIT/ML 3 ML VIAL SUBCUT ×6 (07:24→21:18)
[2021-09-07] MEDS: Gabapentin 400 MG CAPSULE 800 MG PO ×2 (07:25→21:17)
[2021-09-07] MEDS: Memantine HCl 10 MG TABLET PO ×2 (07:25→21:17)
[2021-09-07] MEDS: Metoprolol Tartrate 100 MG TABLET PO ×2 (07:25→21:16)
[2021-09-07] MEDS: allopurinoL 300 MG TABLET PO (07:25)
[2021-09-07] MEDS: Escitalopram Oxalate 5 MG TABLET PO (07:26)
[2021-09-07] MEDS: Atorvastatin Calcium 40 MG TABLET PO (07:26)
[2021-09-07] MEDS: Omeprazole 20 MG CAPSULE.DR PO (07:26)
[2021-09-07] MEDS: Aspirin 81 MG TAB.CHEW PO (07:26)
[2021-09-07] MEDS: Multivitamin TABLET 1 TAB PO (07:26)
[2021-09-07 08:01] LABS: Troponin-I High Sensitivity 443.5 ng/L (<3.5-35.0)
--- NOTE | 2021-09-07 09:30 | CA_ITS ---
Transthoracic Echocardiogram Patient (Last, First, Middle): Dayton Corcoran, Gender: Male Date of : 1945 Age: 76 Procedure Date: 09/07/2021 Procedure Type: Transthoracic Echocardiogram Location: ICU Height: 175.26 cm Weight: 120.2 kg BSA: 2.33 m2 Heart Rate: bpm BP: 116 / 70 mmHg Clinic Administrator: THIERRY Referring MD: Sue Wild NP [employer]: Luke Chavarria MD Symptoms: Nstemi Study Quality: Fair ECG Rhythm: Sinus Conclusions: - 1. Normal LV systolic function with mild LVH 2. Mildly dilated left atrium 3. Normal cardiac valvular Doppler 4. Normal RV systolic pressure 5. No gross pericardial effusion Findings Procedure Information Contrast agent, definity, is being given per protocol without apparent complications. Left Ventricle Normal left ventricular size and systolic function. There is mildly increased left ventricular wall thickness. The visually estimated ejection fraction is between 60-65%. There is no evidence of regional wall motion abnormalities. Diastolic function is indeterminate on the basis of available data. Right Ventricle Normal right ventricular cavity size and systolic function. Atria The left atrium is mildly dilated. Interatrial shunt cannot be excluded. The right atrium is normal in size. Aortic Valve Normal aortic valve structure and function. There is no aortic valve stenosis. There is no aortic valve regurgitation. Mitral Valve There is mild anterior mitral leaflet thickening. There is trace mitral valve regurgitation. There is no mitral valve stenosis. Pulmonic Valve The pulmonic valve was not well visualized. Tricuspid Valve Likely normal tricuspid valve structure and function. There is trace tricuspid valve regurgitation. The right ventricular systolic pressure is normal. The right ventricular systolic pressure is 19 mmHg. Normal right atrial pressure. There is no evidence of pulmonary hypertension. Great Vessels All visible segments of the aorta are normal in size. The pulmonary artery was not well visualized. Venous The inferior vena cava is normal in size and collapses greater than 50% with inspiration. Pericardium/Pleural There is no evidence of pericardial effusion. Prior Study Comparison No prior study available for comparison. Measurements 2D Linear Measurements IVSd: 1.22 0.6-0.9/0.6-1.0 cm LVIDd: 4.85 3.9-5.3/4.2-5.9 cm LVIDd Index: 2.08 2.4-3.2/2.2-3.1 cm/m2 LVIDs: 3.43 2.0-3.6 cm LVPWd: 1.26 0.7-1.1 cm Ao Root: 3.80 2.1-3.5 cm LA Diam: 4.40 2.7-3.8/3.0-4.0 cm LAIDs Index: 1.89 1.5-2.3 cm/m2 LV Mass: 290.94 67-162/88-224 g LV Mass Index: 124.87 43-95/49-115 g/m2 LVOT Diam: 2.30 3.0+(-)1.3 cm 2D Systolic Function EF 4C: 60.50 >55% EF 2C: 66.20 >55% EF BiP: 64.00 >55% Mitral Valve MV Pk E: 1.16 MV Decel Time: 160.00 E'Lateral: 10.10 E'Medial: 11.10 E/E' Med: 10.50 E/E' Lat: 11.50 PHT: 47.00 MVA PHT: 4.68 Decel Harmon: 7.25 Aortic Valve AoV Pk Fuentes: 1.13 AoV Mn Fuentes: 0.67 AoV VTI: 0.29 AoV Pk Grad: 5.00 Aov Mn Grad: 2.00 ELENA Cont.VTI: 2.36 LVOT LVOT Pk Fuentes: 0.71 LVOT Mn Fuentes: 0.45 LVOT VTI: 0.17 LVOT Pk Grad: 2.00 LVOT Mn Grad: 1.00 LVOT Diam: 2.30 LVOT Area: 4.15 Diastolic Function MV Pk E: 1.16 E'Medial: 11.10 E/E' Med: 10.50 E' Laterial: 10.10 E/E' Lat: 11.50 Tricuspid Valve TR Pk Fuentes: 2.01 TR Pk Grad: 16.00 RA Press: 3.00 RVSP: 19.00 Great Vessels Aorta Ao Root-2D: 3.80 2.0-3.7 cm Ao Asc: 3.60 2.1-3.4 cm Pulmonary Valve PV Pk Fuentes: 0.88 Peak PV Grad: 3.00 Updated in Other Vendor System with Status of Final Luke Chavarria MD electronically signed on 09/07/2021 4:29:24 PM with status of Final
[2021-09-07 11:11] LABS: Glucose, Whole Blood 255 mg/dL (60-115)
--- NOTE | 2021-09-07 11:43 | P.PNIM_ITS ---
Progress Note: A&P (1) Diabetes mellitus: Status: Acute (2) Atrial fibrillation: Status: Acute (3) NSTEMI (non-ST elevated myocardial infarction): Status: Acute (4) Acute kidney injury: Status: Acute Assessment and Plan: 76-year-old male with a past medical history of hypertension, hyperlipidemia, diabetes, dementia presented to the hospital with a chief complaint of generalized weakness.? Noted to have JAMES/hyperkalemia/question sepsis with a c lear source.? Admitted for further management. NSTEMI. Troponin range 14.3, 64.6, 275.5, 691.6 trending down ? secondary AK from hyperglycemia, dehydration Start heparin at 8pm 09/06 (last dose of eliquis at 0800) Echo pending asa, statin Cardiology following JAMES ? hx CKD unknown baseline. Continue IV fluids.? Monitor renal function.? Avoid nephrotoxins.? Hold home Bulmaro inhibitors and bumex for now. Hyperkalemia.? resolved EKG showed no acute findings.? Received insulin dextrose, Kayexalate in the ER. Repeat BMP.? Diabetes with hyperglemia Insulin sliding scale.? Hold home medications. Dementia Continue home donepezil. Hx Afib rate controlled; c/ home metoprolol DVT prophylaxis:?Heparin drip Code status:? Full code Attending Dr. Morel Subjective Subjective Date of Service: 09/07/21 Review of Systems Follow up NSTEMI no chest pain or sob resting in bed good appetite Physical Exam Vital Signs: Vital Signs: Last Vital Signs Temp 97.1 F 09/07/21 08:00 Pulse 71 09/07/21 08:00 Resp 17 09/07/21 08:00 BP 144/85 H 09/07/21 08:00 Pulse Ox 98 09/07/21 08:00 Body Mass Index 39.1 Appearing in no acute distress lung sounds are clear to auscultation heart regular rate rhythm, clear S1, S2 positive bowel sounds, abdomen is soft, nontender neuro patient is alert x3, no focal deficits Objective Data Current Medications Acetaminophen (Acetaminophen 325 Mg Tablet) 650 mg PO Q6H PRN PRN Reason: Pain, Mild (Pain Scale 1-3) Allopurinol (Allopurinol 300 Mg Tablet) 300 mg PO DAILY [facility] Last Admin: 09/07/21 07:25 Dose: 300 mg Documented by: Aspirin (Aspirin 81 Mg Tab.Chew) 81 mg PO DAILY [facility] Last Admin: 09/07/21 07:26 Dose: 81 mg Documented by: Atorvastatin Calcium (Atorvastatin Calcium 40 Mg Tablet) 40 mg PO DAILY [facility] Last Admin: 09/07/21 07:26 Dose: 40 mg Documented by: Dextrose (Dextrose 50 % 25 Gm/50 Ml Vial) 25 gm IVPUSH Q15M PRN; Protocol PRN Reason: per Hypoglycemia Standing Ord. Donepezil HCl (Donepezil Hcl 10 Mg Tablet) 10 mg PO BEDTIME [facility] Last Admin: 09/06/21 20:24 Dose: 10 mg Documented by: Escitalopram Oxalate (Escitalopram Oxalate 5 Mg Tablet) 5 mg PO DAILY [facility] Last Admin: 09/07/21 07:26 Dose: 5 mg Documented by: Gabapentin (Gabapentin 400 Mg Capsule) 800 mg PO BID [facility] Last Admin: 09/07/21 07:25 Dose: 800 mg Documented by: Glucose (Glucose Gel 15 Gm Gel..Gram.) 15 gm PO Q15M PRN; Protocol PRN Reason: per Hypoglycemia Standing Ord. Heparin Sodium (Porcine) (Heparin Sodium,Porcine 5,000 Unit/Ml Vial) 4,800 unit 40 unit/kg (4800 unit) IVPUSH PROTOCOL BOLUS PRN; Protocol PRN Reason: 40 unit/kg - Heparin Protocol Heparin Sodium (Porcine) (Heparin Sodium,Porcine 5,000 Unit/Ml Vial) 9,600 unit 80 unit/kg (9600 unit) IVPUSH PROTOCOL BOLUS PRN; Protocol PRN Reason: 80 unit/kg - Heparin Protocol Piperacillin Sod/Tazobactam (Sod 2.25 gm/ Sodium Chloride) 50 mls @ 100 mls/hr IV Q6H [facility] Last Infusion: 09/07/21 06:12 Dose: Infused Documented by: Lactated Ringer's (Lr) 1,000 mls @ 100 mls/hr IVCONT .Q10H [facility] Last Admin: 09/07/21 05:39 Dose: 100 mls/hr Documented by: Heparin Sodium/Sodium Chloride () 25,000 unit in 250 mls @ 0 mls/hr IVCONT .Q0M [facility]; Protocol Last Titration: 09/07/21 05:00 Dose: 10 units/kg/hr, 12.02 mls/hr Documented by: Insulin Glargine (Insulin Glargine,Hum.Rec.Anlog 100 Unit/Ml 10 Ml Vial) 10 unit SUBCUT BEDTIME [facility] Last Admin: 09/06/21 20:38 Dose: 10 unit Documented by: Insulin Human Lispro (Insulin Lispro 100 Unit/Ml 3 Ml Vial) 0.1 - 10 unit SUBCUT QIDACHS [facility]; Protocol Last Admin: 09/07/21 07:24 Dose: 8 unit Documented by: Melatonin (Melatonin 3 Mg Tablet) 6 mg PO BEDTIME PRN PRN Reason: Insomnia Memantine (Memantine Hcl 10 Mg Tablet) 10 mg PO BID [facility] Last Admin: 09/07/21 07:25 Dose: 10 mg Documented by: Metoprolol Tartrate (Metoprolol Tartrate 100 Mg Tablet) 100 mg PO BID [facility]; Protocol Last Admin: 09/07/21 07:25 Dose: 100 mg Documented by: Multivitamins/Vitamin C (Multivitamin Tablet) 1 tab PO DAILY [facility] Last Admin: 09/07/21 07:26 Dose: 1 tab Documented by: Omeprazole (Omeprazole 20 Mg Capsule.) 20 mg PO DAILY [facility] Last Admin: 09/07/21 07:26 Dose: 20 mg Documented by: Senna (Sennosides 8.6 Mg Tablet) 17.2 mg PO BEDTIME PRN PRN Reason: Constipation Sodium Chloride (0.9 % Sodium Chloride Flush 3 Ml Syringe) 3 ml IVFLUSH QSHIFT [facility] Last Admin: 09/07/21 09:10 Dose: Not Given Documented by: Labs CBC & Chem 7: 09/07/21 04:28 09/07/21 04:28 Labs: Laboratory Results - last 24 hr 09/06/21 09/06/21 09/06/21 14:27 15:46 15:46 MCV 102.6 H MCH 34.3 H MCHC 33.4 RDW 12.6 Plt Count 159 L MPV 11.1 Absolute Nucleated RBC 0.000 Nucleated RBC % (auto) 0.0 PT 14.9 H INR 1.3 H PTT (Heparin Protocol) 38.5 L Anion Gap Estim Creat Clear Calc Estimated GFR POC Glucose Random Glucose Calcium Troponin I High Sens 691.6 H* D 09/06/21 09/06/21 09/07/21 17:16 20:10 01:55 MCV MCH MCHC RDW Plt Count MPV Absolute Nucleated RBC Nucleated RBC % (auto) PT 13.6 H INR 1.2 H PTT (Heparin Protocol) 162.1 H* D Anion Gap Estim Creat Clear Calc Estimated GFR POC Glucose 294 H 416 H* Random Glucose Calcium Troponin I High Sens 09/07/21 09/07/21 09/07/21 03:24 04:28 04:28 MCV 102.4 H MCH 35.4 H MCHC 34.5 RDW 12.5 Plt Count 150 L MPV 10.7 Absolute Nucleated RBC 0.000 Nucleated RBC % (auto) 0.0 PT Cancelled INR Cancelled PTT (Heparin Protocol) 103.0 H D Anion Gap Estim Creat Clear Calc Estimated GFR POC Glucose Random Glucose Calcium Troponin I High Sens 09/07/21 09/07/21 09/07/21 04:28 04:28 04:28 MCV MCH MCHC RDW Plt Count MPV Absolute Nucleated RBC Nucleated RBC % (auto) PT INR PTT (Heparin Protocol) 65.1 D Anion Gap 12 Estim Creat Clear Calc 53.6 Estimated GFR 46 POC Glucose Random Glucose 359 H* Calcium 8.3 L Troponin I High Sens 443.5 H* 09/07/21 09/07/21 07:10 11:08 MCV MCH MCHC RDW Plt Count MPV Absolute Nucleated RBC Nucleated RBC % (auto) PT INR PTT (Heparin Protocol) Anion Gap Estim Creat Clear Calc Estimated GFR POC Glucose 320 H 255 H Random Glucose Calcium Troponin I High Sens Microbiology Microbiology Results: Microbiology 09/05/21 17:26 Blood - Venous Blood Culture - Preliminary No growth after 24 hours. 09/05/21 16:05 Blood - Venous Blood Culture - Preliminary No growth after 24 hours. Quality Stroke Does the patient have a stroke diagnosis?: No VTE Prior VTE?: No VTE Risk Level:: Medical - low VTE Device Contraindication: Treatment Not Indicated VTE Drug Contraindication: N/A - Med Ordered
[2021-09-07 11:53] LABS: PTT Heparin Drip 92.1 SEC (53-77.9)
[2021-09-07 16:50] LABS: Glucose, Whole Blood 348 mg/dL (60-115)
[2021-09-07] MEDS: Heparin Sodium,Porcine/1/2NS 25,000 UNIT/250 ML IV.SOLN 9.62 UNIT IVCONT (16:54)
[2021-09-07 19:30] LABS: PTT Heparin Drip 76.4 SEC (53-77.9)
[2021-09-07 20:43] LABS: Glucose, Whole Blood 294 mg/dL (60-115)
[2021-09-07] MEDS: Donepezil HCl 10 MG TABLET PO (21:16)
[2021-09-07] MEDS: Insulin Glargine,Hum.rec.anlog 100 UNIT/ML 10 ML VIAL 18 UNIT SUBCUT (21:19)
[2021-09-07] MEDS: 0.9 % Sodium Chloride Flush 3 ML SYRINGE IVFLUSH (21:19)
[2021-09-08] VITALS (9 sets, daily range): BP systolic 130–174; BP diastolic 70–87; PULSE 67–89; RESP 15–18; TEMP 36.2–36.8; O2SAT 93–99
[2021-09-08 02:59] LABS: PTT Heparin Drip 58.3 SEC (53-77.9)
[2021-09-08 06:18] LABS: PTT Heparin Drip 73.6 SEC (53-77.9)
[2021-09-08 07:32] LABS: Glucose, Whole Blood 215 mg/dL (60-115)
[2021-09-08] MEDS: Metoprolol Tartrate 100 MG TABLET PO ×2 (07:58→21:44)
[2021-09-08] MEDS: Atorvastatin Calcium 40 MG TABLET PO (07:59)
[2021-09-08] MEDS: Memantine HCl 10 MG TABLET PO ×2 (07:59→21:42)
[2021-09-08] MEDS: Gabapentin 400 MG CAPSULE 800 MG PO ×2 (07:59→21:42)
[2021-09-08] MEDS: allopurinoL 300 MG TABLET PO (07:59)
[2021-09-08] MEDS: Multivitamin TABLET 1 TAB PO (07:59)
[2021-09-08] MEDS: Omeprazole 20 MG CAPSULE.DR PO (08:00)
[2021-09-08] MEDS: Aspirin 81 MG TAB.CHEW PO (08:00)
[2021-09-08] MEDS: Escitalopram Oxalate 5 MG TABLET PO (08:00)
[2021-09-08] MEDS: Insulin Lispro 100 UNIT/ML 3 ML VIAL SUBCUT ×8 (08:01→21:43)
[2021-09-08 11:37] LABS: Glucose, Whole Blood 363 mg/dL (60-115)
--- NOTE | 2021-09-08 12:45 | P.PNIM_ITS ---
Subjective Subjective Date of Service: 09/08/21 Interval History: Seen and examined this morning Follow-up for NSTEMI No chest pain, palpitations Review of Systems Review of Systems: Yes all other systems are reviewed and are negative Constitutional Constitutional: Denies chills and Denies fever(s) Cardiovascular Cardiovascular: Denies chest pain Respiratory Respiratory: Denies cough Gastrointestinal Gastrointestinal: Denies abdominal pain Physical Exam Vital Signs: Vital Signs: Last Vital Signs Temp 97.1 F 09/08/21 12:00 Pulse 78 09/08/21 12:00 Resp 18 09/08/21 07:22 BP 130/78 09/08/21 12:00 Pulse Ox 96 09/08/21 12:00 Body Mass Index 39.1 Const: Nutritional Appearance: overweight Orientation/consciousness: patient oriented x3 HENMT: Head: Yes normocephalic and Yes atraumatic Eyes: Sclerae: sclerae normal Chest: Chest palpation & inspection: normal inspection of the chest Resp: Effort & Inspection: normal respiratory effort and no respiratory distress Cardio: Rate: regular rate Rhythm: regular rhythm GI: Palpation (GI): Soft to palpation and nontender Neuro: General: patient oriented x3 Cranial nerves: Yes CN's II-XII intact bilaterally and Yes Bilaterally intact EOM present Extrem: Other: no leg edema Objective Data Active Medications Acetaminophen (Acetaminophen 325 Mg Tablet) 650 mg PO Q6H PRN PRN Reason: Pain, Mild (Pain Scale 1-3) Allopurinol (Allopurinol 300 Mg Tablet) 300 mg PO DAILY [facility] Last Admin: 09/08/21 07:59 Dose: 300 mg Documented by: RAFITA Aspirin (Aspirin 81 Mg Tab.Chew) 81 mg PO DAILY [facility] Last Admin: 09/08/21 08:00 Dose: 81 mg Documented by: RAFITA Atorvastatin Calcium (Atorvastatin Calcium 40 Mg Tablet) 40 mg PO DAILY [facility] Last Admin: 09/08/21 07:59 Dose: 40 mg Documented by: RAFITA Dextrose (Dextrose 50 % 25 Gm/50 Ml Vial) 25 gm IVPUSH Q15M PRN; Protocol PRN Reason: per Hypoglycemia Standing Ord. Donepezil HCl (Donepezil Hcl 10 Mg Tablet) 10 mg PO BEDTIME [facility] Last Admin: 09/07/21 21:16 Dose: 10 mg Documented by: JOSEPHINE Escitalopram Oxalate (Escitalopram Oxalate 5 Mg Tablet) 5 mg PO DAILY [facility] Last Admin: 09/08/21 08:00 Dose: 5 mg Documented by: RAFITA Gabapentin (Gabapentin 400 Mg Capsule) 800 mg PO BID [facility] Last Admin: 09/08/21 07:59 Dose: 800 mg Documented by: RAFITA Glucose (Glucose Gel 15 Gm Gel..Gram.) 15 gm PO Q15M PRN; Protocol PRN Reason: per Hypoglycemia Standing Ord. Heparin Sodium (Porcine) (Heparin Sodium,Porcine 5,000 Unit/Ml Vial) 4,800 unit 40 unit/kg (4800 unit) IVPUSH PROTOCOL BOLUS PRN; Protocol PRN Reason: 40 unit/kg - Heparin Protocol Heparin Sodium (Porcine) (Heparin Sodium,Porcine 5,000 Unit/Ml Vial) 9,600 unit 80 unit/kg (9600 unit) IVPUSH PROTOCOL BOLUS PRN; Protocol PRN Reason: 80 unit/kg - Heparin Protocol Heparin Sodium/Sodium Chloride () 25,000 unit in 250 mls @ 0 mls/hr IVCONT .Q0M [facility]; Protocol Stop: 09/08/21 19:59 Last Titration: 09/08/21 06:22 Dose: 8 units/kg/hr, 9.62 mls/hr Documented by: JOSE ARMANDO Cosigned by: TRACI Insulin Glargine (Insulin Glargine,Hum.Rec.Anlog 100 Unit/Ml 10 Ml Vial) 18 unit SUBCUT BEDTIME [facility] Last Admin: 09/07/21 21:19 Dose: 18 unit Documented by: JOSEPHINE Insulin Human Lispro (Insulin Lispro 100 Unit/Ml 3 Ml Vial) 0.1 - 10 unit SUBCUT QIDAS [facility]; Protocol Last Admin: 09/08/21 12:23 Dose: 10 unit Documented by: NAWAF Insulin Human Lispro (Insulin Lispro 100 Unit/Ml 3 Ml Vial) 2 unit SUBCUT QIDAS [facility] Last Admin: 09/08/21 12:24 Dose: 2 unit Documented by: NAWAF Melatonin (Melatonin 3 Mg Tablet) 6 mg PO BEDTIME PRN PRN Reason: Insomnia Memantine (Memantine Hcl 10 Mg Tablet) 10 mg PO BID [facility] Last Admin: 09/08/21 07:59 Dose: 10 mg Documented by: HO.N-ASKEP Metoprolol Tartrate (Metoprolol Tartrate 100 Mg Tablet) 100 mg PO BID [facility]; Protocol Last Admin: 09/08/21 07:58 Dose: 100 mg Documented by: ANTON-ROOPA Multivitamins/Vitamin C (Multivitamin Tablet) 1 tab PO DAILY [facility] Last Admin: 09/08/21 07:59 Dose: 1 tab Documented by: ANTON-ASKEP Omeprazole (Omeprazole 20 Mg Capsule.Dr) 20 mg PO DAILY [facility] Last Admin: 09/08/21 08:00 Dose: 20 mg Documented by: ANTON-JUAN FRANCISCOEP Senna (Sennosides 8.6 Mg Tablet) 17.2 mg PO BEDTIME PRN PRN Reason: Constipation Sodium Chloride (0.9 % Sodium Chloride Flush 3 Ml Syringe) 3 ml IVFLUSH QSHIFT [facility] Last Admin: 09/08/21 08:06 Dose: Not Given Documented by: ANTON-ROOPA Non-Admin Reason: IV Running Labs CBC & Chem 7: 09/07/21 04:28 09/07/21 04:28 Labs: Laboratory Results - last 24 hr 09/07/21 09/07/21 09/07/21 16:46 19:08 20:40 PTT (Heparin Protocol) 76.4 POC Glucose 348 H 294 H 09/08/21 09/08/21 09/08/21 02:45 05:44 07:29 PTT (Heparin Protocol) 58.3 D 73.6 D POC Glucose 215 H 09/08/21 11:32 PTT (Heparin Protocol) POC Glucose 363 H* Microbiology Microbiology Results: Microbiology 09/05/21 17:26 Blood Culture - Preliminary Blood - Venous No growth after 48 hours. 09/05/21 16:05 Blood Culture - Preliminary Blood - Venous No growth after 48 hours. Assessment and Plan (1) Atrial fibrillation: Status: Acute (2) NSTEMI (non-ST elevated myocardial infarction): Status: Acute (3) Diabetes mellitus: Status: Acute Assessment and Plan: 76-year-old male with a past medical history of hypertension, hyperlipidemia, diabetes, dementia presented to the hospital with a chief complaint of generalized weakness.? Noted to have JAMES/hyperkalemia/question sepsis with unclear source.? Admitted for further management. NSTEMI. Troponin range 14.3, 64.6, 275.5, 691.6 no chest pain, EKG changes heparin x 48 hours Echo LVEF 60-65% no WMA continue asa, statin dose increased Cardiology following Afib rate controlled continue home dose metoprolol resume home eliquis after 48 hrs of heparin Renal insufficiency unknown baseline. Creatinine trending down Monitor renal function.? Hold home Bulmaro inhibitors and bumex for now. Hyperkalemia.? resolved EKG showed no acute findings.? Received insulin dextrose, Kayexalate in the ER. Repeat BMP.? Diabetes with hyperglemia Insulin sliding scale.? Premeal insulin added, lantus increased Glimepiride on hold Dementia Continue home donepezil, aricept Mood continue SSRI DVT prophylaxis:?Heparin drip Code status:? Full code Attending Dr. Morel Quality Stroke Does the patient have a stroke diagnosis?: No VTE Prior VTE?: No VTE Risk Level:: Medical - low VTE Device Contraindication: Treatment Not Indicated VTE Drug Contraindication: N/A - Med Ordered
[2021-09-08 16:04] LABS: Glucose, Whole Blood 283 mg/dL (60-115)
[2021-09-08] MEDS: Heparin Sodium,Porcine/1/2NS 25,000 UNIT/250 ML IV.SOLN 9.62 UNIT IVCONT (16:11)
--- NOTE | 2021-09-08 20:07 | CONS_ITS ---
DATE OF SERVICE: 09/07/2021 REASON FOR CONSULTATION: I was asked to see this patient to assist in evaluation and management of patient's acute kidney injury as reflected by creatinine of 1.96 on admission on , which come down to 1.5 on September 07. HISTORY OF PRESENT ILLNESS: In summary, the patient is a 76-year-old gentleman with history of hypertension, hyperlipidemia, diabetes, dementia, was admitted to the hospital with generalized weakness. The patient is a poor historian. Information obtained from electronic medical record. In the emergency room, the patient is noted to have elevated white blood cell count, lactic acidosis, acute kidney injury, and potassium is 6.0. His hospital course included IV fluids, antibiotics, and renal functions improved. Creatinine down to 1.5. Potassium is now in the normal range. PAST MEDICAL HISTORY: Notable for diabetes, hypertension, stage 3 chronic kidney disease, appears to be his baseline creatinine 1.5 along with dementia. MEDICATIONS: His medications on admission include allopurinol, Eliquis, Lipitor, Bumex, Neurontin, Amaryl, Avapro, , metoprolol, and Protonix. His Avapro has been placed on hold as has Bumex. ALLERGIES: HE HAS NO KNOWN DRUG ALLERGIES. REVIEW OF SYSTEMS: Unobtainable. PHYSICAL EXAMINATION: VITAL SIGNS: Blood pressure 140/70, heart rate in the 70s. HEAD: Atraumatic, normocephalic. Mucous membranes moist. NECK: Supple. LUNGS: Breath sounds bilaterally. CARDIAC: Regular rate and rhythm. ABDOMEN: Soft. Nontender. Good bowel sounds. No CVA tenderness. EXTREMITIES: Shows no edema. LABORATORY DATA: Showed a serum creatinine of 1.96 on admission, now down to 1.5 today. Potassium was 6.0 on admission, now down to 4.8. Hemoglobin of 13.3, hematocrit 38.5, white blood count 7.2, platelet count 150. Urine studies showed marked sugar in the urine. No protein by dipstick. IMPRESSION: A 76-year-old with multiple chronic medical problems, admitted with acute kidney injury and hyperkalemia along with generalized weakness. 1. Acute kidney injury. Renal function is better. Now on on IV fluids. Suspect he is at his baseline with creatinine 1.5. 2. Stage 3 chronic kidney disease. 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 3. Hypertension. Need to monitor him and have to need increase his blood pressure medications now as outpatient. 4. Generalized weakness. Seems to be getting better. SUGGESTIONS: At this time include continue to check renal function, urine output, and blood pressure. We will check urine protein-creatinine ratio. Continue to hold the NSAID, and continue to hold the LEI inhibitor and diuretic at this time. We will follow with the team. MD OSEAS Hayes/SANDEEP / [phone]
[2021-09-08 20:36] LABS: Glucose, Whole Blood 338 mg/dL (60-115)
[2021-09-08] MEDS: 0.9 % Sodium Chloride Flush 3 ML SYRINGE IVFLUSH (21:42)
[2021-09-08] MEDS: Donepezil HCl 10 MG TABLET PO (21:42)
[2021-09-08] MEDS: Insulin Glargine,Hum.rec.anlog 100 UNIT/ML 10 ML VIAL 18 UNIT SUBCUT (21:43)
[2021-09-09] VITALS (7 sets, daily range): BP systolic 138–169; BP diastolic 72–82; PULSE 62–81; RESP 18–20; TEMP 36–37.1; O2SAT 93–98
[2021-09-09 06:15] LABS: Hematocrit 40.8 % (42-52); Mean Corpuscular HGB Conc 34.3 g/dl (31.0-36.0); Mean Corpuscular Hemoglobin 35.1 pg (27.0-33.0); Mean Corpuscular Volume 102.3 fL (80-98); Platelet Count 173 X10*3/uL (160-400); Red Blood Count 3.99 X10*6/uL (4.60-5.80); Red Cell Distribution Width 12.2 % (11.0-16.0); White Blood Count 8.2 X10*3/uL (4.8-10.8)
[2021-09-09 06:28] LABS: PTT Heparin Drip 73.5 SEC (53-77.9)
--- NOTE | 2021-09-09 06:59 | P.CDIC_ITS ---
CDI Concurrent Query Documentation Clarification: PHYSICIAN'S DOCUMENTATION REQUEST Date of Query: 09/09/21 0659 Patient Name: Dayton Corcoran Admit Date: 09/05/21 Dear Doctor, A review of the medical record indicates additional documentation may be needed. Please review below and update the documentation accordingly. Risk Factors/Clinical Indicators/Treatments WBC 17 LA 4.3 Blood culture negative Per H&P: ? Sepsis Recognized standard criteria for this condition and other infectious definitions includes: Sepsis Systemic manifestations of infection, with 2 or more SIRS criteria which include: * Fever > 100.4?F or hypothermia < 96.8?F * Leukocytosis ? WBC > 12,000 or leukopenia, WBC < 4,000, or > 10% bands * Tachycardia- > 90 beats/minute * Tachypnea- RR > 20 breaths/minute or PaCO2 < 32mmHg Source: [employer] Manual 2013 Documentation should include the known or suspected organism, and the underlying infection, such as UTI or pneumonia Severe Sepsis Sepsis with associated acute organ dysfunction, such as renal or respiratory failure Documentation should indicate the association between the sepsis and the organ dysfunction Septic Shock Severe sepsis with associated with circulatory failure, evidenced by hypotension and hypoperfusion Based on the above information and the recognized standard for sepsis, could you please clarify in the Progress Notes if this diagnoses is still accurate and reflective of the patient's condition to ensure quality of the medical record. * Sepsis is/was present and is a clinical diagnosis based on (please include this additional support in the medical record) * After study, Sepsis has been ruled out * Other (please specify) * Unable to determine Use of terms such as suspected, likely, concern for, or probable (associated with a specific diagnosis that is being evaluated, monitored, or treated as if it exists) are acceptable and can be coded in the inpatient setting, when documented at the time of discharge. Thank you, Juanita Jeong RN Extension: [phone] Please use your independent medical judgment in providing your response. THIS QUERY IS PART OF THE PERMANENT MEDICAL RECORD Provider Response: Other Other Diagnosis: No sepsis
[2021-09-09 07:08] LABS: Anion Gap 15 (12-20); Blood Urea Nitrogen 18 mg/dL (9-16); Calcium 9.4 mg/dL (8.4-10.2); Carbon Dioxide 29 mmol/L (22-29); Chloride 98 mmol/L (96-108); Creatinine Clr Calc Pharmacy 59.5; Estimated Glomerular Filt Rate 51; Glucose Random 256 mg/dL (60-115); Sodium 137 mmol/L (135-145)
[2021-09-09 07:27] LABS: Glucose, Whole Blood 232 mg/dL (60-115)
[2021-09-09] MEDS: 0.9 % Sodium Chloride Flush 3 ML SYRINGE IVFLUSH (07:42)
[2021-09-09] MEDS: Insulin Lispro 100 UNIT/ML 3 ML VIAL SUBCUT ×6 (07:42→17:11)
[2021-09-09] MEDS: Gabapentin 400 MG CAPSULE 800 MG PO (09:15)
[2021-09-09] MEDS: Atorvastatin Calcium 40 MG TABLET PO (09:16)
[2021-09-09] MEDS: allopurinoL 300 MG TABLET PO (09:16)
[2021-09-09] MEDS: Omeprazole 20 MG CAPSULE.DR PO (09:16)
[2021-09-09] MEDS: Metoprolol Tartrate 100 MG TABLET PO (09:17)
[2021-09-09] MEDS: Memantine HCl 10 MG TABLET PO (09:17)
[2021-09-09] MEDS: Multivitamin TABLET 1 TAB PO (09:17)
[2021-09-09] MEDS: Escitalopram Oxalate 5 MG TABLET PO (09:18)
[2021-09-09] MEDS: Aspirin 81 MG TAB.CHEW PO (09:18)
[2021-09-09] MEDS: Apixaban 5 MG TABLET PO (09:18)
[2021-09-09 11:26] LABS: Glucose, Whole Blood 280 mg/dL (60-115)
[2021-09-09 12:06] LABS: Creatinine Urine 59.33 mg/dL; Total Protein Urine Random 23 mg/dL (<12)
--- NOTE | 2021-09-09 12:28 | P.DS_ITS ---
DS: Providers Provider Date of Service: 09/09/21 Date of admission: 09/05/21 22:47 Date of discharge: 09/09/21 Primary care physician: Kathy Villafana MD Consults: 09/05/21 23:06 Consult to Nephrology Routine Consulting Provider: Everett Matthews Reason for consultation: JAMES/hyperkalemia 09/06/21 09:49 Consult to Cardiology Routine Consulting Provider: Luke Chavarria Reason for consultation: elevated troponin Has provider been notified: No Attending physician on discharge: Oscar Morel Discharging clinician: Anum Hall DS: Diagnosis Discharge Diagnosis (1) NSTEMI (non-ST elevated myocardial infarction): Status: Acute (2) Atrial fibrillation: Status: Acute (3) Diabetes mellitus: Status: Acute DS: Summary Hospital Course Hospital Course: From H&P on day of admission 76-year-old male with a past medical history of hypertension, hyperlipidemia, diabetes, dementia presented to the hospital with a chief complaint of generalized weakness. As reported by the patient's son at bedside patient usually needs help for his activities of daily living.? Today patient noted to be more weak and brought him to the hospital for further management. Also mentioned that patient has been eating and drinking okay.? Denies any falls or trauma. Denies patient complaining of any chest pain palpitations lightheadedness or dizziness. Complains of chronic cough. Denies any urinary symptoms. Denies any abdominal pain. pt's son not able to recal most pt medical hsitory; mentions the he helps with all pts ADLs Review of all other systems is negative except mentioned above ER course: Per ER team patient on presentation noted to have stable vital; on labs noted to have leukocytosis, lactic acidosis; urinalysis was negative chest x-ray was negative.? Also noted to have elevated creatinine and potassium.? Patient received insulin dextrose and Kayexalate in the ER.? No EKG changes reported. Patient was given Zosyn.? Admitted to the hospital for further management. NSTEMI. Troponin range 14.3, 64.6, 275.5, 691.6. He was not noted to have any chest pain, no EKG changes. He was evaluated by Cardiology and recommended to be treated with heparin x 48 hours. He had Echo which showed LVEF 60-65% no WMA. He was continued on asa and dose of statin was increased from 10 mg to 40 mg. The patient does not require any further inpatient cardiac workup. He should call to schedule follow-up appointment with Cardiology as an outpatient. Afib.Rate has remained controlled. He was continued on home dose metoprolol. His dose of Eliquis was resumed after completing 48 hours of anticoagulation with heparin. Renal insufficiency. unknown baseline.? Creatinine was initially 1.96. His Bumex and Arb were held and Creatinine has been trending down and is 1.35 on day of discharge. dose of bumex will be reduced to once daily. should have outpat ient follow up with pcp to follow renal function. hyperkalemia resolved with kayexalate, insulin and dextrose in ED Initially there was concern for infection due to leukocytosis and elevated lacti c acid. No source of infection was identified. Urinalysis, chest x-ray were unremarkable and blood cultures have remained negative Leukocytosis may have been secondary to dehydration/hemoconcentration and resolved on day 2 of admission. Time Spent with Patient Time attestation: Total time spent providing and/or coordinating discharge services: Discharge coordination time: Greater than 30 minutes Quality: Stroke Does the patient have a stroke diagnosis?: No Physical Exam Vital Signs: Vital Signs: Last Vital Signs Temp 96.8 F 09/09/21 10:57 Pulse 62 09/09/21 10:57 Resp 18 09/09/21 10:57 BP 138/72 09/09/21 10:57 Pulse Ox 96 09/09/21 10:57 Body Mass Index 39.1 Const: Nutritional Appearance: overweight Orientation/consciousness: patient oriented x3 HENMT: Head: Yes normocephalic and Yes atraumatic Eyes: Sclerae: sclerae normal Chest: Chest palpation & inspection: normal inspection of the chest Resp: Effort & Inspection: normal respiratory effort and no respiratory distress GI: Palpation (GI): Soft to palpation and nontender Neuro: General: patient oriented x3 Cranial nerves: Yes CN's II-XII intact bilaterally and Yes Bilaterally intact EOM present Extrem: Other: no leg edema DS: Data Data Completed and Pending Labs on day of discharge: Laboratory Results - last 24 hr 09/08/21 09/08/21 09/09/21 16:00 20:31 06:06 WBC RBC Hgb Hct MCV MCH MCHC RDW Plt Count MPV Absolute Nucleated RBC Nucleated RBC % (auto) PTT (Heparin Protocol) 73.5 Sodium Potassium Chloride Carbon Dioxide Anion Gap BUN Creatinine Estim Creat Clear Calc Estimated GFR POC Glucose 283 H 338 H Random Glucose Calcium U Random Total Protein Urine Creatinine 09/09/21 09/09/21 09/09/21 06:06 06:06 07:21 WBC 8.2 RBC 3.99 L Hgb 14.0 Hct 40.8 L MCV 102.3 H MCH 35.1 H MCHC 34.3 RDW 12.2 Plt Count 173 MPV 11.0 Absolute Nucleated RBC 0.000 Nucleated RBC % (auto) 0.0 PTT (Heparin Protocol) Sodium 137 Potassium 5.0 Chloride 98 Carbon Dioxide 29 Anion Gap 15 BUN 18 H Creatinine 1.35 Estim Creat Clear Calc 59.5 Estimated GFR 51 POC Glucose 232 H Random Glucose 256 H Calcium 9.4 D U Random Total Protein Urine Creatinine 09/09/21 09/09/21 10:57 11:38 WBC RBC Hgb Hct MCV MCH MCHC RDW Plt Count MPV Absolute Nucleated RBC Nucleated RBC % (auto) PTT (Heparin Protocol) Sodium Potassium Chloride Carbon Dioxide Anion Gap BUN Creatinine Estim Creat Clear Calc Estimated GFR POC Glucose 280 H Random Glucose Calcium U Random Total Protein 23 H Urine Creatinine 59.33 Preliminary micro results at discharge 09/05/21 17:26 Blood Culture - Preliminary Blood - Venous No growth after 48 hours. 09/05/21 16:05 Blood Culture - Preliminary Blood - Venous No growth after 48 hours. Discharge Plan Discharge Patient Disposition: Home, Self-Care Discharge Diagnosis: NSTEMI DM afib Referrals: Kathy Villafana MD [Primary Care Provider] - 1 Week Luke Chavarria MD [Physician] - 1 Week Discharge Medications: New atorvastatin [Lipitor] 40 mg tablet 40 mg PO BEDTIME Qty: 30 RF: 0 Continued metoprolol tartrate 100 mg tablet 1 tab PO BID RF: 0 citalopram 10 mg tablet 1 tab PO DAILY RF: 0 gabapentin 800 mg tablet 1 tab PO BID RF: 0 glimepiride 4 mg tablet 1 tab PO BID RF: 0 memantine 10 mg tablet 1 tab PO BID RF: 0 Eliquis 5 mg tablet 1 tab PO BID RF: 0 donepezil 10 mg tablet 1 tab PO QPM RF: 0 pantoprazole 40 mg tablet,delayed release (/EC) 1 tab PO DAILY RF: 0 allopurinol 300 mg tablet 1 tab PO DAILY RF: 0 irbesartan 300 mg tablet 1 tab PO DAILY RF: 0 magnesium oxide 250 mg magnesium tablet 1 tab PO DAILY RF: 0 CertaVite Senior 0.4-300-250 mg-mcg-mcg tablet 1 tab PO DAILY RF: 0 Changed bumetanide 1 mg tablet 1 tab PO DAILY Qty: 0 RF: 0 Discontinued atorvastatin 10 mg tablet 1 tab PO DAILY RF: 0 Discharge Orders: Discharge Order (Routine); Ordered 09/09/21 Ordered By: Anum Hall Diet: advance to usual diet Activity on Discharge: As tolerated Stand Alone Forms: Patient Portal Discharge page Care Plan Goals: Stay healthy and the hospital Health Concerns: NSTEMI atrial fibrillation uncontrolled Diabetes Plan of Treatment: Call to schedule follow-up appointment with PCP for follow up of blood pressure and blood sugar. Call to schedule follow-up with programmer operator numerical control. Dose of Lipitor has been increased Dose of bumex has been decreased to once daily. monitor for shortness of breath and leg swelling. monitor weight daily. follow low sodium diet Assessment: 76 year old male who presented with weakness, found to have NSTEMI s/p 48 hours of heparin
--- NOTE | 2021-09-09 13:49 | PC.NURSE ---
Addendum entered by Gloria Calvo RN 09/09/21 17:39: AMBULANCE ELECTRICAL MACHINE BUILDER NOW. FAMILY (DAUGHTER IN LAW DHARA) CALLED AND NOTIFIED THAT PATIENT IS LEAVING NOW. BELONGINGS SENT WITH AMBULANCE. Original Note: SON BELTRAN BEDSIDE TO REVIEW DISCHARGE INSTRUCTIONS WITH PATIENT AND DAIRY NUTRITION SPECIALIST. SON TAKING BELONGINGS HOME. AMBULANCE SCHEDULED FOR 1500. IV AND TELEPACK REMOVED.
[2021-09-09 16:42] LABS: Glucose, Whole Blood 312 mg/dL (60-115)
== END 2021-09-09 17:39 | disposition home or self-care (01) | DRG 637 ==
LOC: HO.ED 20:30 → HO.EDOVER 22:55 → HO.ICU 09-06 17:58 → HO.IMC 09-08 00:28
PROVIDERS: Family Medicine; Internal Medicine Nephrology; Nurse Practitioner Acute Care; Admitting Provider Hospitalist; Emergency Provider Emergency Medicine; PCP General Practice; Visit Provider Physician Assistant Medical
DX: E11.10 Type 2 diabetes mellitus with ketoacidosis without coma (principal); I21.A1 Myocardial infarction type 2; N39.0 Urinary tract infection, site not specified; N17.9 Acute kidney failure, unspecified; E87.5 Hyperkalemia; E78.5 Hyperlipidemia, unspecified; I48.91 Unspecified atrial fibrillation; Z20.822 Contact with and (suspected) exposure to COVID-19; G30.9 Alzheimer's disease, unspecified; E86.0 Dehydration; F02.80 Dementia in other diseases classified elsewhere, unspecified severity, without behavioral disturbance, psychotic disturbance, mood disturbance, and anxiety; I12.9 Hypertensive chronic kidney disease with stage 1 through stage 4 chronic kidney disease, or unspecified chronic kidney disease; E11.22 Type 2 diabetes mellitus with diabetic chronic kidney disease; N18.30 Chronic kidney disease, stage 3 unspecified; Z79.01 Long term (current) use of anticoagulants; Z79.899 Other long term (current) drug therapy
CPT/HCPCS: 0241U; 36415; 70450; 71046; 80048; 80053; 80076; 80307; 81001; 82009; 82077; 82140; 82947; 83605; 83690; 83880; 84156; 84443; 84484; 85025; 85027; 85379; 85610; 85730; 87040; 93005; 93306; 96361; 96365; 96375; 96376; 99285; J2543

== ENCOUNTER → 2021-10-04 08:20 | Outpatient (REF) | payer MEDICARE, MEDICAID, SELFPAY ==
--- NOTE | ~2021-10-04 | NM_ITS ---
Myocardial perfusion study Indication: Atrial fibrillation with abnormal troponin during hospitalization to evaluate for myocardial ischemia Technique: The patient was brought in for a Lexiscan perfusion study on 10/04/2021. Patient performed low-level exercise and was injected 0.4 mg of Lexiscan intravenously. Within a minute of injection, 40 mCi of sestamibi was given intravenously. Images were obtained using the SPECT gamma camera interlaced with the gating device. Images were obtained in supine position. Resting perfusion study was performed on 10/05/2021. Patient was administered 40 mCi of sestamibi intravenously at rest. Images were then obtained in supine position. Images obtained with and without CT attenuation. Total DLP 127 mGy-cm. Images were processed with the software and compared side to side in short axis, horizontal long axis and vertical long axis views. Findings: The stress perfusion study showed nonattenuated images show mildly to moderately reduced uptake in the distal anterior and moderately reduced uptake in the apex of the LV myocardium. Attenuation corrected images show severely reduced apex and moderately reduced uptake in the distal anterior and mildly reduced uptake septum of the LV myocardium.. The gated study shows normal LV systolic function with calculated LVEF of 59%. LV cavity is normal in size. The gated study shows normal systolic wall thickening and contraction of segments. Resting study shows nonattenuated images show normal uptake of radiotracer in all segments of LV myocardium. Gating at rest reveals normal systolic wall motion with ejection fraction at greater than 55%. The findings are consistent with mild to moderate intensity reversible defect in the distal anterior and apex of the LV myocardium suggestive of ischemia in the mid to distal LAD territory.. NM/NM roseann perf SPECT rest & str Impression: 1. Myocardial perfusion imaging study shows mild to moderate intensity mid to distal LAD territory ischemia 2. Gated LVEF is 59% 3. Transient ischemic dilatation not present EKG is nondiagnostic for ischemia
--- NOTE | 2021-10-04 08:26 | CA_ITS ---
Acquisition Time: 2021-10-04 08:37:56 Total Exercise Time: 00:02:00 Test Indications: ABN EKG, AFIB Medications: SEE CHART Protocol: LEXISCAN Max HR: 092 BPM 63% of Pred: 144 BPM Max BP: 128/088 mmHG Max Work Load: 1.0 METS Pharmacological stress test with Lexiscan injection, while sitting and kicking his legs, without anginal symptoms, with isolated PVCs, with normotensive response to injection, with nondiagnostic EKG for ischemia. Nuclear images pending. Test reviewed with Dr Salguero. Referred By: Luke Chavarria Overread By: VELVET LOYOLA
--- NOTE | 2021-10-04 08:26 | HM_ITS ---
Conclusion: 1. Patient was monitored for 3 days and 2 hours. 2. Baseline rhythm is atrial fibrillation with average heart rate of 69 beats per minute. 3. No significant pauses greater than 3 seconds noted 4. Total of 230 PVCs noted consistent with 0.23% of total burden consistent with occasional PVCs 5. No patient reported events MTDD
== END ==
LOC: HO.CARD 08:20
PROVIDERS: PCP General Practice; Visit Provider Internal Medicine Cardiovascular Disease
DX: I21.4 Non-ST elevation (NSTEMI) myocardial infarction (principal); I48.91 Unspecified atrial fibrillation; E11.9 Type 2 diabetes mellitus without complications
CPT/HCPCS: 78452; 93017; 93242; A9500; J0280; J2785

== ENCOUNTER 2021-10-07 10:37 | Inpatient (IN) | payer MEDICARE, MEDICAID, SELFPAY ==
--- NOTE | ~2021-10-07 | US_ITS ---
EXAMINATION: US VENOUS ULTRASOUND WITH DOPPLER LOWER EXTREMITY, RIGHT CLINICAL INFORMATION: Infection distally.. Rule out DVT. COMPARISON: None TECHNIQUE: Ultrasound of the deep veins is performed from the hip to the calf with compression sonography and color and pulse Doppler assessment. Spectral analysis with color-flow imaging is performed. FINDINGS: There is normal venous compression and respiratory variation and augmented flow. The visualized common femoral vein, superficial femoral vein, profunda femoral vein, popliteal vein, and the trifurcation region shows no evidence of deep venous thrombosis. There is no significant popliteal fossa cyst. No popliteal artery aneurysm. US/US venous duplex LE RT IMPRESSION: No acute DVT demonstrated in the right lower extremity.
--- NOTE | ~2021-10-07 | XR_ITS ---
EXAMINATION: XR FOOT, RIGHT CLINICAL INFORMATION: Wound with swelling and process. COMPARISON: None TECHNIQUE: AP, lateral, and oblique views of the right foot. FINDINGS: There is a healing fracture of the distal fibula with some periosteal new bone formation and fracture lines still evident but with probable bony union. There is no evidence of acute fracture or dislocation of the right foot. Calcaneal spurs sites of insertion of Achilles and plantar tendons are evident. There is posttraumatic change seen involving the base of the first proximal phalanx. There is soft tissue prominence about the medial aspect of the first interphalangeal joint with soft tissue defect consistent. No gas within the soft tissues identified and no erosive change of adjacent bone is seen. There also appears to be some soft tissue prominence about the second and third phalanges with a soft tissue defect about the medial aspect of the second toe. Joint spaces are maintained. There is a 1 mm radiopaque density seen about the plantar aspect mid metatarsals without adjacent bony abnormality. XR/XR foot RT 2V IMPRESSION: Healing distal right fibular fracture. Calcaneal spurs. Edema involving the first through third toes with asymmetric soft tissue density about the medial aspect of the first phalanx with soft tissue defects present involving the first and second toes which may represent lacerations or drainage sites.
--- NOTE | ~2021-10-07 | XR_ITS ---
EXAMINATION: XR CHEST CLINICAL INFORMATION: Lower extremity swelling COMPARISON: September 05, 2021 TECHNIQUE: 2 views of the chest were obtained. FINDINGS: There is no evidence of acute parenchymal disease, pneumothorax, or pleural effusion. The cardiopericardial silhouette is enlarged. No evidence of pulmonary edema. There is calcific tendinitis of the left shoulder. Powerpack and leads seen about the anterior left chest wall extending to the left axilla. Bilateral pleural thickening again seen consistent with endothoracic fat deposition. XR/XR chest 2V IMPRESSION: No acute disease. Cardiomegaly without pulmonary edema.
--- NOTE | ~2021-10-07 | US_ITS ---
EXAMINATION: DUPLEX DOPPLER ULTRASOUND OF THE RIGHT LOWER EXTREMITY ARTERIAL SYSTEM. CLINICAL INFORMATION: Distal infection COMPARISON: None TECHNIQUE: Real-time ultrasound and Doppler techniques (integrating B-mode 2D vascular images, Doppler spectral analysis and color flow Doppler imaging) were utilized to interrogate the right lower extremity arterial system. FINDINGS: The common femoral artery has a triphasic waveform with peak systolic velocity of 84 cm/s. The profunda femoral artery has a triphasic waveform with peak systolic velocity of 71 cm/s. The proximal superficial femoral artery has a triphasic waveform with peak systolic velocity of 90 cm/s. The mid superficial femoral artery has a triphasic waveform with peak systolic velocity of 143 cm/s. The distal superficial femoral artery has a triphasic waveform with peak systolic velocity of 64 cm/s. The popliteal artery has a triphasic waveform with peak systolic velocity of 91 cm/s. The distal posterior tibial artery has a triphasic waveform with peak soft velocity of 82 cm second. US/US arterial duplex LE RT IMPRESSION: No evidence of hemodynamically significant stenosis of visualized portions of the right lower extremity arterial system.
[2021-10-07 10:47] VITALS: BP 100/61; PULSE 84; RESP 18; TEMP 36.8; O2SAT 93; BMI 28.7
--- NOTE | 2021-10-07 11:08 | ED.EXTPRO ---
HPI - Extremity Problem General Chief complaint: Extremity Problem <Dianne Murphy NP - Last Filed: 10/07/21 16:38> Stated complaint: swollen feet <Dianne Murphy NP - Last Filed: 10/07/21 16:38> Time Seen by Provider: 10/07/21 10:59 <Dianne Murphy NP - Last Filed: 10/07/21 16:38> Source: family and logistics operations director <Dianne Murphy NP - Last Filed: 10/07/21 16:38> Mode of arrival: wheelchair <Dianne Murphy NP - Last Filed: 10/07/21 16:38> Limitations: language barrier and altered mental status (dementia) <Dianne Murphy NP - Last Filed: 10/07/21 16:38> History of Present Illness HPI Narrative: 76 yo male with pmh afib on eliquis, NIDDM, HTN, dementia, HLD here with complaints of lower extremity swelling bilateral R >L over the last several days. Today with waking son noticed right lower extremity wounds. No known injury or trauma. Patient denies pain. HPI limited d/t dementia so obtained from both family and son at bedside. NO SOB, chest pain, fevers, chills, pain in the LE or weight gain. Of note the patient was discharged from this facility on 09/09/2021 after being admitted for an acute kidney injury/NSTEMI (Had echo which showed EF 60-65% with no WMA). The patient's Bumex was held during admission and was decreased from 1 mg twice daily to 1 mg daily on discharge. <Dianne Murphy NP - Last Filed: 10/07/21 16:38> Related Data Home medications: Home Medications Medication Instructions Recorded Confirmed apixaban 5 mg tablet (Eliquis) 1 tab PO BID 09/05/21 10/07/21 citalopram 10 mg tablet 1 tab PO DAILY 09/05/21 10/07/21 donepezil 10 mg tablet 1 tab PO QPM 09/05/21 10/07/21 gabapentin 800 mg tablet 1 tab PO BID 09/05/21 10/07/21 glimepiride 4 mg tablet 1 tab PO BID 09/05/21 10/07/21 irbesartan 300 mg tablet 1 tab PO DAILY 09/05/21 10/07/21 magnesium oxide 1 tab PO DAILY 09/05/21 10/07/21 memantine 10 mg tablet 1 tab PO BID 09/05/21 10/07/21 metoprolol tartrate 100 mg tablet 1 tab PO BID 09/05/21 10/07/21 agmvfuhz-qvd-fhxst acid 0.4 1 tab PO DAILY 09/05/21 10/07/21 mg-lycopene 300 mcg-lutein 250 mcg tablet (CertaVite Senior) pantoprazole 40 mg tablet,delayed 1 tab PO DAILY 09/05/21 10/07/21 release acetaminophen 500 mg tablet 1 tab PO Q6H PRN 10/07/21 10/07/21 allopurinol 100 mg tablet 0.5 tab PO DAILY 10/07/21 10/07/21 carboxymethylcellulose sodium 0.5 1 drp OPHTHALMIC (EYE) Q4-6H PRN 10/07/21 10/07/21 % eye drops (Refresh Tears) diphenhydramine HCl 25 mg tablet 0.5 tab PO BEDTIME PRN 10/07/21 10/07/21 (Banophen) insulin glargine 100 unit/mL (3 30 unit SUBCUT QPM 10/07/21 10/07/21 mL) subcutaneous pen (Lantus Solostar U-100 Insulin) insulin lispro 200 unit/mL (3 mL) 0 - 14 unit SUBCUT TIDAC 10/07/21 10/07/21 subcutaneous pen (Humalog KwikPen U-200 Insulin) Previous Rx's Medication Instructions Recorded atorvastatin 40 mg tablet (Lipitor) 40 mg PO BEDTIME #30 tab 09/09/21 bumetanide 1 mg tablet 1 tab PO DAILY #0 tab 09/09/21 <Dianne Murphy NP - Last Filed: 10/07/21 16:38> Allergies/Adverse reactions: Allergies Allergy/AdvReac Type Severity Reaction Status Date / Time No Known Allergies Allergy Verified 09/05/21 20:27 <Dianne Murphy NP - Last Filed: 10/07/21 16:38> Review of Systems Review of Systems: Yes all other systems are reviewed and are negative <Dianne Murphy NP - Last Filed: 10/07/21 16:38> Constitutional: Constitutional: Reports no additional constitutional complaints, Denies body ache(s), Denies chills, Denies fever(s), Denies headache(s) and Denies weakness <Dianne Murphy NP - Last Filed: 10/07/21 16:38> Eyes: Eyes: Reports no additional eye complaints and Denies change in vision <Dianne Murphy NAVAL SCIENCE TEACHER - Last Filed: 10/07/21 16:38> ENT: Reports system reviewed and no additional complaints, except as documented, Denies dizziness, Denies headache(s), Denies nasal congestion, Denies nasal discharge and Denies neck pain <Dianne Murphy NP - Last Filed: 10/07/21 16:38> Cardiovascular: Cardiovascular: Reports no additional cardiovascular complaints, Denies chest pain, Reports leg edema and Denies dyspnea <Dianne Murphy NP - Last Filed: 10/07/21 16:38> Respiratory: Respiratory: Reports no additional respiratory complaints, Denies cough and Denies dyspnea <Dianne Murphy NAVAL SCIENCE TEACHER - Last Filed: 10/07/21 16:38> Gastrointestinal: Gastrointestinal: Reports no additional gastrointestinal complaints, Denies abdominal pain, Denies diarrhea, Denies nausea and Denies vomiting <Dianne Murphy NP - Last Filed: 10/07/21 16:38> Genitourinary: Genitourinary: Denies urinary incontinence <Dianne Murphy NP - Last Filed: 10/07/21 16:38> Musculoskeletal: Musculoskeletal: Reports no additional musculoskeletal complaints, Denies back pain, Denies arthralgias, Denies joint swelling, Denies neck pain, Denies numbness and Denies tingling <Dianne Murphy NP - Last Filed: 10/07/21 16:38> Integumentary/Breasts: Skin/Breast: Reports system reviewed and no additional complaints, except as docu, Denies rash and Reports wounds <Dianne Murphy NP - Last Filed: 10/07/21 16:38> Neurologic: Reports system reviewed and no additional complaints, except as documented, Denies Abnormal speech present, Denies dizziness, Denies headache(s), Denies numbness, Denies tingling and Denies weakness <Dianne Murphy NP - Last Filed: 10/07/21 16:38> PMFSH Past Medical History Attestation statement: The following information was validated with the patient. <Dianne Murphy NP - Last Filed: 10/07/21 16:38> Source: old records reviewed and nursing notes reviewed <Dianne Murphy NP - Last Filed: 10/07/21 16:38> Medical History: Medical History (Updated 10/07/21 @ 16:26 by KENJI Holland) Alzheimer's dementia Atrial fibrillation Diabetes Heart failure with preserved ejection fraction HLD (hyperlipidemia) HTN (hypertension) Kidney failure NSTEMI (non-ST elevated myocardial infarction) <Dianne Murphy NP - Last Filed: 10/07/21 16:38> Surgical History: Surgical History No pertinent past surgical history <Dianne Murphy NP - Last Filed: 10/07/21 16:38> Social History Social History: Social History (Updated 10/07/21 @ 16:21 by KENJI Holland) Household Members: Family and Children Housing: Apartment Do you presently have visiting nurse or other home services: No Alcohol intake: never Patient Tobacco Use Status: Never used Tobacco Use of substances other than those prescribed or required for medical reasons: No Advance Directives: No service: No Current occupational status: retired <Dainne Murphy NP - Last Filed: 10/07/21 16:38> Physical Exam Vital Signs: Vital Signs: Last Vital Signs Temp 98.8 F 10/07/21 15:33 Pulse 84 10/07/21 15:33 Resp 14 10/07/21 15:33 BP 118/52 L 10/07/21 15:33 Pulse Ox 96 10/07/21 15:33 Body Mass Index 28.7 <Dianne Murphy NP - Last Filed: 10/07/21 16:38> Vital Signs: Last Vital Signs Temp 98.8 F 10/07/21 15:33 Pulse 84 10/07/21 15:33 Resp 14 10/07/21 15:33 BP 118/52 L 10/07/21 15:33 Pulse Ox 96 10/07/21 15:33 Body Mass Index 28.7 <Iain Spaulding MD - Last Filed: 10/07/21 14:06> Const: General: cooperative, healthy appearing, comfortable and no acute distress <Dianne Murphy NP - Last Filed: 10/07/21 16:38> Orientation/consciousness: patient oriented x3 <Dianne Murphy NP - Last Filed: 10/07/21 16:38> Limitations: no limitations <Dianne Murphy NP - Last Filed: 10/07/21 16:38> HENMT: Head: Yes normal to inspection <Dianne Murphy NP - Last Filed: 10/07/21 16:38> Ears: hearing grossly normal bilaterally <Dianne Murphy NP - Last Filed: 10/07/21 16:38> General nose exam: Normal external nose present <Dianne Murphy NP - Last Filed: 10/07/21 16:38> Face and sinus: Yes normal facial exam <Dianne Murphy NP - Last Filed: 10/07/21 16:38> Mouth: Normal oral and palatal mucosa present <Dianne Murphy NP - Last Filed: 10/07/21 16:38> Throat: Yes posterior oropharynx normal <Dianne Murphy NP - Last Filed: 10/07/21 16:38> Eyes: General: appearance normal, both eyes and all related structures <Dianne Murphy NP - Last Filed: 10/07/21 16:38> Pupils: Equal, round and reactive pupils present <Dianne Murphy NP - Last Filed: 10/07/21 16:38> Neck: Neck: Yes normal visual inspection <Dianne Murphy NP - Last Filed: 10/07/21 16:38> Chest: Chest palpation & inspection: normal inspection of the chest <Dianne Murphy NP - Last Filed: 10/07/21 16:38> Resp: Effort & Inspection: normal respiratory effort <Dianne Murphy NP - Last Filed: 10/07/21 16:38> Auscultation: clear to auscultation bilaterally <Dianne Murphy NP - Last Filed: 10/07/21 16:38> Cardio: Rate: regular rate <Dianne Murphy NAVAL SCIENCE TEACHER - Last Filed: 10/07/21 16:38> Rhythm: regular rhythm <Dianne Murphy NAVAL SCIENCE TEACHER - Last Filed: 10/07/21 16:38> Peripheral pulses: Peripheral pulses 2+ throughout <Dianne Murphy NAVAL SCIENCE TEACHER - Last Filed: 10/07/21 16:38> GI: Inspection: Yes normal to inspection <Dianne Murphy NAVAL SCIENCE TEACHER - Last Filed: 10/07/21 16:38> Palpation (GI): Soft to palpation and nontender <Dianne Murphy NAVAL SCIENCE TEACHER - Last Filed: 10/07/21 16:38> Auscultation: normal bowel sounds <Dianne Murphy NAVAL SCIENCE TEACHER - Last Filed: 10/07/21 16:38> Back/Spine/Pelvis: Thoracic/Lumbar Spine: thoracic and lumbar spine normal to inspection <Dianne Murphy NAVAL SCIENCE TEACHER - Last Filed: 10/07/21 16:38> Skin: General skin exam: no rashes or lesions noted <Dianne Murphy NAVAL SCIENCE TEACHER - Last Filed: 10/07/21 16:38> Neuro: General: patient oriented x3, no focal motor deficits and normal sensation to monofilament <Dianne Murphy NAVAL SCIENCE TEACHER - Last Filed: 10/07/21 16:38> Cranial nerves: Yes Equal, round and reactive pupils present <Dianne Murphy NAVAL SCIENCE TEACHER - Last Filed: 10/07/21 16:38> Cognition (Neuro): normal cognition <Dianne Murphy NP - Last Filed: 10/07/21 16:38> Speech: No Abnormal speech present <Dianne Murphy NP - Last Filed: 10/07/21 16:38> Gait exam (Neuro): Normal gait present <Dianne Murphy NP - Last Filed: 10/07/21 16:38> Motor exam (neuro): 5/5 motor strength present throughout <Dianne Murphy NP - Last Filed: 10/07/21 16:38> Extrem: Other: +DP pulse. Difficult to palpte PT pulse. FROM. Sensation normal. <Dianne Murphy NP - Last Filed: 10/07/21 16:38> General: Yes normal to inspection <Dianne Murphy NP - Last Filed: 10/07/21 16:38> Course Course Course Narrative: 76-year-old male with a past medical history of dementia here with his son who is his primary caregiver with complaints of bilateral lower extremity swelling right greater than left noticed over the last few days with wounds noticed on the right foot today with waking. No known injury or trauma. No fevers, chills, weight gain, shortness of breath, chest pain. Patient's Bumex was decreased on his last discharge summary and August after being admitted for an acute kidney injury. On exam the patient has wounds noted over the right 1st through 4th digits with blistering and erythema. Palpable DP pulses. Difficult to palpate a PT pulse but patient has full range of motion and sensation is intact. Likely underlying vascular disease. Due to dementia it is difficult to determine if there was any injury or trauma. Therefore, will check x-rays, obtain labs, US(arterial/venous). Son expresses concern over taking care of his father at home as his father requires total care and his son has been doing most of this at home. He is seeking additional help in the home and is interested in home care nursing or [employer] services. He does not want his father placed in a short-term rehab. Therefore, will involve case management 1400-reviewed labs. Labs show James with mild hyper K. No EKG changes. Gentle hydration ordered. Imaging unremarkable. Due to underlying diabetes will admit for IV antibiotics. Patient meeting SIRS criteria. Inflammatory markers are pending. At this time infection suspected. Antibiotics ordered. 1445-Spoke to Dr Regan who accepted admission. <Dianne Murphy NP - Last Filed: 10/07/21 16:38> Reevaluation(s) Reevaluation #1: Discussed with SOIL BIOLOGY TEACHER, patient with severly infected foot will admit for antibiotics and rule out osteo <Iain Spaulding MD - Last Filed: 10/07/21 14:06> Time: 14:06 <Iain Spaulding MD - Last Filed: 10/07/21 14:06> MDM - Extremity (Nontraumatic) Medical Records Attestation: I reviewed the patient's medical records. <Dianne Murphy NP - Last Filed: 10/07/21 16:38> Lab Data Attestation: I reviewed the patient's lab results. <Dianne Murphy NP - Last Filed: 10/07/21 16:38> Result diagrams: : 10/07/21 12:49 10/07/21 13:27 <Dianne Murphy NP - Last Filed: 10/07/21 16:38> Labs: Lab Results 10/07/21 10/07/21 10/07/21 Range/Units 12:49 12:49 12:49 WBC 10.7 (4.8-10.8) X10*3/uL RBC 4.31 L (4.60-5.80) X10*6/uL Hgb 15.0 (14.0-18.0) g/dl Hct 44.1 (42.0-52.0) % MCV 102.3 H (80.0-98.0) fL MCH 34.8 H (27.0-33.0) pg MCHC 34.0 (31.0-36.0) g/dl RDW 12.7 (11.0-16.0) % Plt Count 147 L (160-400) X10*3/uL MPV 11.5 (9.4-12.4) fL Immature Gran % (Auto) 0.4 (0.0-0.4) % Neut % (Auto) 77.7 H (45-73) % Lymph % (Auto) 11.9 L (20-40) % [place] % (Auto) 8.0 (2-11) % Eos % (Auto) 1.7 (0-4) % Baso % (Auto) 0.3 (0-2) % Lymph # (Auto) 1.3 (1.2-4.9) X10*3/uL [place] # (Auto) 0.9 (0.1-1.2) X10*3/uL Eos # (Auto) 0.2 (0.0-0.4) X10*3/uL Baso # (Auto) 0.0 (0.0-0.2) X10*3/uL Abs Immat Gran (auto) 0.04 H (0.00-0.03) X10*3/uL Absolute Neuts (auto) 8.3 (2.0-8.3) x10*3/uL Absolute Nucleated RBC 0.000 (0.0-0.012) X10*3/uL Nucleated RBC % (auto) 0.0 (0.0-0.2) /100WBC ESR (0-15) MM/HR Sodium (135-145) mmol/L Potassium (3.3-5.1) mmol/L Chloride (96-108) mmol/L Carbon Dioxide (22-29) mmol/L Anion Gap (12-20) BUN (9-16) mg/dL Creatinine (0.5-1.4) mg/dL Estim Creat Clear Calc Estimated GFR Random Glucose (60-115) mg/dL Lactic Acid (0.5-2.0) mmol/L Calcium (8.4-10.2) mg/dL Magnesium (1.6-2.6) mg/dL Total Bilirubin (0.0-1.0) mg/dL Direct Bilirubin (0.0-0.5) mg/dL AST (5-37) U/L ALT (0-40) U/L Alkaline Phosphatase (39-117) U/L Troponin I High Sens 4.7 D (<3.5-35.0) ng/L C-Reactive Protein (< or = 0.50) mg/dL B-Natriuretic Peptide 164 H Cancelled (<100) pg/mL Total Protein (6.5-8.0) g/dL Albumin (3.5-5.0) g/dL 10/07/21 10/07/21 10/07/21 Range/Units 12:49 13:27 13:27 WBC (4.8-10.8) X10*3/uL RBC (4.60-5.80) X10*6/uL Hgb (14.0-18.0) g/dl Hct (42.0-52.0) % MCV (80.0-98.0) fL MCH (27.0-33.0) pg MCHC (31.0-36.0) g/dl RDW (11.0-16.0) % Plt Count (160-400) X10*3/uL MPV (9.4-12.4) fL Immature Gran % (Auto) (0.0-0.4) % Neut % (Auto) (45-73) % Lymph % (Auto) (20-40) % [place] % (Auto) (2-11) % Eos % (Auto) (0-4) % Baso % (Auto) (0-2) % Lymph # (Auto) (1.2-4.9) X10*3/uL [place] # (Auto) (0.1-1.2) X10*3/uL Eos # (Auto) (0.0-0.4) X10*3/uL Baso # (Auto) (0.0-0.2) X10*3/uL Abs Immat Gran (auto) (0.00-0.03) X10*3/uL Absolute Neuts (auto) (2.0-8.3) x10*3/uL Absolute Nucleated RBC (0.0-0.012) X10*3/uL Nucleated RBC % (auto) (0.0-0.2) /100WBC ESR 42 H (0-15) MM/HR Sodium 134 L (135-145) mmol/L Potassium 5.3 H (3.3-5.1) mmol/L Chloride 94 L (96-108) mmol/L Carbon Dioxide 29 (22-29) mmol/L Anion Gap 16 (12-20) BUN 42 H D (9-16) mg/dL Creatinine 1.97 H (0.5-1.4) mg/dL Estim Creat Clear Calc 36.1 Estimated GFR 33 Random Glucose 298 H (60-115) mg/dL Lactic Acid 1.8 (0.5-2.0) mmol/L Calcium 9.5 (8.4-10.2) mg/dL Magnesium 1.9 (1.6-2.6) mg/dL Total Bilirubin 1.3 H (0.0-1.0) mg/dL Direct Bilirubin 0.5 (0.0-0.5) mg/dL AST 21 (5-37) U/L ALT 18 (0-40) U/L Alkaline Phosphatase 108 (39-117) U/L Troponin I High Sens (<3.5-35.0) ng/L C-Reactive Protein 2.26 H (< or = 0.50) mg/dL B-Natriuretic Peptide (<100) pg/mL Total Protein 7.6 D (6.5-8.0) g/dL Albumin 4.0 (3.5-5.0) g/dL <Dianne Murphy NP - Last Filed: 10/07/21 16:38> Lab Results 10/07/21 10/07/21 10/07/21 Range/Units 12:49 12:49 12:49 WBC 10.7 (4.8-10.8) X10*3/uL RBC 4.31 L (4.60-5.80) X10*6/uL Hgb 15.0 (14.0-18.0) g/dl Hct 44.1 (42.0-52.0) % MCV 102.3 H (80.0-98.0) fL MCH 34.8 H (27.0-33.0) pg MCHC 34.0 (31.0-36.0) g/dl RDW 12.7 (11.0-16.0) % Plt Count 147 L (160-400) X10*3/uL MPV 11.5 (9.4-12.4) fL Immature Gran % (Auto) 0.4 (0.0-0.4) % Neut % (Auto) 77.7 H (45-73) % Lymph % (Auto) 11.9 L (20-40) % [place] % (Auto) 8.0 (2-11) % Eos % (Auto) 1.7 (0-4) % Baso % (Auto) 0.3 (0-2) % Lymph # (Auto) 1.3 (1.2-4.9) X10*3/uL [place] # (Auto) 0.9 (0.1-1.2) X10*3/uL Eos # (Auto) 0.2 (0.0-0.4) X10*3/uL Baso # (Auto) 0.0 (0.0-0.2) X10*3/uL Abs Immat Gran (auto) 0.04 H (0.00-0.03) X10*3/uL Absolute Neuts (auto) 8.3 (2.0-8.3) x10*3/uL Absolute Nucleated RBC 0.000 (0.0-0.012) X10*3/uL Nucleated RBC % (auto) 0.0 (0.0-0.2) /100WBC ESR (0-15) MM/HR Sodium (135-145) mmol/L Potassium (3.3-5.1) mmol/L Chloride (96-108) mmol/L Carbon Dioxide (22-29) mmol/L Anion Gap (12-20) BUN (9-16) mg/dL Creatinine (0.5-1.4) mg/dL Estim Creat Clear Calc Estimated GFR Random Glucose (60-115) mg/dL Lactic Acid (0.5-2.0) mmol/L Calcium (8.4-10.2) mg/dL Magnesium (1.6-2.6) mg/dL Total Bilirubin (0.0-1.0) mg/dL Direct Bilirubin (0.0-0.5) mg/dL AST (5-37) U/L ALT (0-40) U/L Alkaline Phosphatase (39-117) U/L Troponin I High Sens 4.7 D (<3.5-35.0) ng/L C-Reactive Protein (< or = 0.50) mg/dL B-Natriuretic Peptide 164 H Cancelled (<100) pg/mL Total Protein (6.5-8.0) g/dL Albumin (3.5-5.0) g/dL 10/07/21 10/07/21 10/07/21 Range/Units 12:49 13:27 13:27 WBC (4.8-10.8) X10*3/uL RBC (4.60-5.80) X10*6/uL Hgb (14.0-18.0) g/dl Hct (42.0-52.0) % MCV (80.0-98.0) fL MCH (27.0-33.0) pg MCHC (31.0-36.0) g/dl RDW (11.0-16.0) % Plt Count (160-400) X10*3/uL MPV (9.4-12.4) fL Immature Gran % (Auto) (0.0-0.4) % Neut % (Auto) (45-73) % Lymph % (Auto) (20-40) % [place] % (Auto) (2-11) % Eos % (Auto) (0-4) % Baso % (Auto) (0-2) % Lymph # (Auto) (1.2-4.9) X10*3/uL [place] # (Auto) (0.1-1.2) X10*3/uL Eos # (Auto) (0.0-0.4) X10*3/uL Baso # (Auto) (0.0-0.2) X10*3/uL Abs Immat Gran (auto) (0.00-0.03) X10*3/uL Absolute Neuts (auto) (2.0-8.3) x10*3/uL Absolute Nucleated RBC (0.0-0.012) X10*3/uL Nucleated RBC % (auto) (0.0-0.2) /100WBC ESR 42 H (0-15) MM/HR Sodium 134 L (135-145) mmol/L Potassium 5.3 H (3.3-5.1) mmol/L Chloride 94 L (96-108) mmol/L Carbon Dioxide 29 (22-29) mmol/L Anion Gap 16 (12-20) BUN 42 H D (9-16) mg/dL Creatinine 1.97 H (0.5-1.4) mg/dL Estim Creat Clear Calc 36.1 Estimated GFR 33 Random Glucose 298 H (60-115) mg/dL Lactic Acid 1.8 (0.5-2.0) mmol/L Calcium 9.5 (8.4-10.2) mg/dL Magnesium 1.9 (1.6-2.6) mg/dL Total Bilirubin 1.3 H (0.0-1.0) mg/dL Direct Bilirubin 0.5 (0.0-0.5) mg/dL AST 21 (5-37) U/L ALT 18 (0-40) U/L Alkaline Phosphatase 108 (39-117) U/L Troponin I High Sens (<3.5-35.0) ng/L C-Reactive Protein 2.26 H (< or = 0.50) mg/dL B-Natriuretic Peptide (<100) pg/mL Total Protein 7.6 D (6.5-8.0) g/dL Albumin 4.0 (3.5-5.0) g/dL <Iain Spaulding MD - Last Filed: 10/07/21 14:06> Imaging Data foot xray: Attestation: I personally reviewed and interpreted this imaging study as follows: <Dianne Murphy NP - Last Filed: 10/07/21 16:38> Radiologist's impression: IMPRESSION: Healing distal right fibular fracture. ? Calcaneal spurs. ? Edema involving the first through third toes with asymmetric soft tissue density about the medial aspect of the first phalanx with soft tissue defects present involving the first and second toes which may represent lacerations or drainage sites. <Dianne Murphy NP - Last Filed: 10/07/21 16:38> Chest x-ray: Attestation: I personally reviewed and interpreted this imaging study as follows: <Dianne Murphy NP - Last Filed: 10/07/21 16:38> Radiologist's impression: [place] [id number] XRay Report Signed Patient: Dayton Corcoran MR#: [id number] : 1945 Acct:[id number] Age/Sex: 76 / M ADM Date: 10/07/21 Loc: HO.ED Attending Dr: Ordering Physician: Dianne Murphy NP Date of Service: 10/07/21 Procedure(s): XR chest 2V Accession Number(s): [id number] cc: Dianne Murphy NP~ EXAMINATION: XR CHEST CLINICAL INFORMATION: Lower extremity swelling COMPARISON: September 05, 2021 TECHNIQUE: 2 views of the chest were obtained. FINDINGS: There is no evidence of acute parenchymal disease, pneumothorax, or pleural effusion. The cardiopericardial silhouette is enlarged. No evidence of pulmonary edema. There is calcific tendinitis of the left shoulder. Powerpack and leads seen about the anterior left chest wall extending to the left axilla. Bilateral pleural thickening again seen consistent with endothoracic fat deposition. XR/XR chest 2V IMPRESSION: No acute disease. ? Cardiomegaly without pulmonary edema. <Dianne Murphy NP - Last Filed: 10/07/21 16:38> Venous US: Attestation: I personally reviewed and interpreted this imaging study as follows: <Dianne Murphy NP - Last Filed: 10/07/21 16:38> Radiologist's impression: FINDINGS: There is normal venous compression and respiratory variation and augmented flow. The visualized common femoral vein, superficial femoral vein, profunda femoral vein, popliteal vein, and the trifurcation region shows no evidence of deep venous thrombosis. ? There is no significant popliteal fossa cyst. No popliteal artery aneurysm. US/US venous duplex LE RT IMPRESSION: No acute DVT demonstrated in the right lower extrem <Dianne Murphy NP - Last Filed: 10/07/21 16:38> arterial US: Attestation: I personally reviewed and interpreted this imaging study as follows: <Dianne Murphy NP - Last Filed: 10/07/21 16:38> Radiologist's impression: FINDINGS: The common femoral artery has a triphasic waveform with peak systolic velocity of 84 cm/s. The profunda femoral artery has a triphasic waveform with peak systolic velocity of 71 cm/s. The proximal superficial femoral artery has a triphasic waveform with peak systolic velocity of 90 cm/s. The mid superficial femoral artery has a triphasic waveform with peak systolic velocity of 143 cm/s. The distal superficial femoral artery has a triphasic waveform with peak systolic velocity of 64 cm/s. The popliteal artery has a triphasic waveform with peak systolic velocity of 91 cm/s. The distal posterior tibial artery has a triphasic waveform with peak soft velocity of 82 cm second.? US/US arterial duplex LE RT IMPRESSION: No evidence of hemodynamically significant stenosis of visualized portions of the right lower extremity arterial system.? <Dianne Murphy NP - Last Filed: 10/07/21 16:38> ECG Data Attestation EKG: I personally reviewed and interpreted this ECG as follows: <Dianne Murphy NP - Last Filed: 10/07/21 16:38> ECG interpretation date: 10/07/21 <Dianne Murphy NP - Last Filed: 10/07/21 16:38> ECG interpretation time: 13:15 <Dianne Murphy NP - Last Filed: 10/07/21 16:38> Interpretation: AFib with rate of 95 normal QRS, normal QT <Dianne Murphy NP - Last Filed: 10/07/21 16:38> Discharge Plan Discharge Clinical Impression: Cellulitis, JAMES (acute kidney injury) <Dianne Murphy NP - Last Filed: 10/07/21 16:38> Patient Disposition: Admitted As Inpatient <Dianne Murphy NP - Last Filed: 10/07/21 16:38>
--- NOTE | 2021-10-07 11:18 | ECG_ITS ---
Test Reason : EXTREMITY PROB Blood Pressure : / mmHG Vent. Rate : 095 BPM Atrial Rate : 000 BPM P-R Int : 000 ms QRS Dur : 080 ms QT Int : 336 ms P-R-T Axes : 000 043 064 degrees QTc Int : 422 ms Atrial fibrillation Low voltage QRS Nonspecific T wave abnormality Abnormal ECG Heart rate has increased T wave amplitude has decreased in Lateral leads Referred By: Dianne Murphy Electronically Signed By:CRUZITO ACEVES MD
[2021-10-07 12:54] LABS: MANUAL DIFF FLAG NO
[2021-10-07 12:58] LABS: Basophils Percent Auto 0.3 % (0-2); Eosinophils Absolute Auto 0.2 X10*3/uL (0.0-0.4); Eosinophils Percent Auto 1.7 % (0-4); Hematocrit 44.1 % (42.0-52.0); Imm Gran Abs Auto 0.04 X10*3/uL (0.00-0.03); Imm Gran Pct Auto 0.4 % (0.0-0.4); Lymphocytes Absolute Auto 1.3 X10*3/uL (1.2-4.9); Lymphocytes Percent Auto 11.9 % (20-40); Mean Corpuscular Hemoglobin 34.8 pg (27.0-33.0); Mean Corpuscular Volume 102.3 fL (80.0-98.0); Mean Platelet Volume 11.5 fL (9.4-12.4); Monocytes Absolute Auto 0.9 X10*3/uL (0.1-1.2); Neutrophils Absolute Auto 8.3 x10*3/uL (2.0-8.3); Neutrophils Percent Auto 77.7 % (45-73); Platelet Count 147 X10*3/uL (160-400); Red Blood Count 4.31 X10*6/uL (4.60-5.80); Red Cell Distribution Width 12.7 % (11.0-16.0); White Blood Count 10.7 X10*3/uL (4.8-10.8)
[2021-10-07 13:20] LABS: Troponin-I High Sensitivity 4.7 ng/L (<3.5-35.0)
[2021-10-07 13:28] LABS: B Type Natriuretic Peptide 164 pg/mL (<100)
[2021-10-07 13:50] LABS: Lactic Acid 1.8 mmol/L (0.5-2.0)
[2021-10-07 13:55] LABS: Alanine Aminotransferase 18 U/L (0-40); Alkaline Phosphatase 108 U/L (39-117); Anion Gap 16 (12-20); Aspartate Amino Transferase 21 U/L (5-37); Bilirubin Direct 0.5 mg/dL (0.0-0.5); Bilirubin Total 1.3 mg/dL (0.0-1.0); Blood Urea Nitrogen 42 mg/dL (9-16); Calcium 9.5 mg/dL (8.4-10.2); Carbon Dioxide 29 mmol/L (22-29); Chloride 94 mmol/L (96-108); Creatinine Clr Calc Pharmacy 36.1; Estimated Glomerular Filt Rate 33; Glucose Random 298 mg/dL (60-115); Magnesium 1.9 mg/dL (1.6-2.6); Potassium 5.3 mmol/L (3.3-5.1); Sodium 134 mmol/L (135-145); Total Protein 7.6 g/dL (6.5-8.0)
[2021-10-07 14:11] LABS: C Reactive Protein 2.26 mg/dL (< or = 0.50)
--- NOTE | 2021-10-07 14:29 | PHA.MEDREC ---
Pharmacy Consult ? Medication Reconciliation Pharmacy has completed the medication reconciliation. Patient had prescription bottles for Allopurinol 300 mg and 100 mg 1/2. Called [facility] to verify patient should only be taking 100 mg 1/2 tablet daily. Vickie Puentes, LenyD
[2021-10-07 14:48] LABS: Erythrocyte Sedimentation Rate 42 MM/HR (0-15)
[2021-10-07] MEDS: Piperacillin Sodium/Tazobactam 3.375 GM in 0.9 % Sodium Chloride 50 ML IV (14:58)
[2021-10-07] MEDS: 0.9 % Sodium Chloride 500 ML 999 ML IV (14:59)
[2021-10-07 15:33] VITALS: BP 118/52; PULSE 84; RESP 14; TEMP 37.1; O2SAT 96
[2021-10-07 15:48] LABS: Appearance Urine CLEAR; Color Urine YELLOW; Glucose Urine UA >=1000 MG/DL (NEG); Leukocyte Esterase Urine NEG (NEG); Nitrite Urine NEG (NEG); UACC Culture Trigger NO; Urine Blood TRACE (NEG); Urine Ketones NEG (NEG); Urine Protein NEG (NEG-TRACE)
--- NOTE | 2021-10-07 15:51 | PM.IMHP ---
History of Present Illness Date of Service: 10/07/21 Attending physician on admission: Ariel Koch Chief Complaint: Right foot wound This is a 76-year-old Haitian-speaking male who presents to the emergency department with right foot wound. History is primarily obtained from his nfvgrroo-kl-xip at the bedside. The patient was in his usual state of health when he woke up this morning and his granddaughter noticed redness, swelling and blistering of his right foot. They maintain that his foot looked absolutely normal yesterday when he went to bed. He denies any pain, fever, chills. He does have somewhat decreased sensation in his right leg but denies any recent trauma. He was given a bath last night and he denies that the water was too hot. Today he had a large blister on his great toe and when they took off his sandal, the blister opened. Today in the emergency department he was afebrile, lab work revealed no leukocytosis. He was noted to have acute kidney injury with a creatinine of 1.97 with associated hyperkalemia with potassium of 5.3. His wylxessf-xe-prs states his dose of allopurinol was changed from 300 mg daily to 50 mg daily but yesterday he was accidentally given both doses. X-ray of the right foot showed edema. Arterial Doppler showed no evidence of hemodynamically significant stenosis of the right lower extremity and venous duplex showed no evidence of acute DVT. He was given a dose of IV antibiotics in the decision was made to admit him for further management. Review of Systems Review of Systems: Yes all other systems are reviewed and are negative Constitutional: Constitutional: Denies chills and Denies fever(s) Cardiovascular: Cardiovascular: Denies chest pain Respiratory: Respiratory: Denies cough Gastrointestinal: Gastrointestinal: Denies abdominal pain [facility] Medical History (Updated 10/07/21 @ 16:26 by KENJI Holland) Alzheimer's dementia Atrial fibrillation Diabetes Heart failure with preserved ejection fraction HLD (hyperlipidemia) HTN (hypertension) Kidney failure NSTEMI (non-ST elevated myocardial infarction) Functional capacity: uses cane/walker Pertinent family history: There is no history of heart disease or stroke in his mother or father. Surgical History No pertinent past surgical history Social History (Updated 10/07/21 @ 16:21 by KENJI Holland) Household Members: Family and Children Housing: Apartment Do you presently have visiting nurse or other home services: No Alcohol intake: never Patient Tobacco Use Status: Never used Tobacco Use of substances other than those prescribed or required for medical reasons: No Advance Directives: No service: No Current occupational status: retired Meds Allergies Allergy/AdvReac Type Severity Reaction Status Date / Time No Known Allergies Allergy Verified 09/05/21 20:27 Active Medications: Current Medications Acetaminophen (Acetaminophen 325 Mg Tablet) 650 mg PO Q6H PRN PRN Reason: Pain, Mild (Pain Scale 1-3) Apixaban (Apixaban 5 Mg Tablet) 5 mg PO BID [facility] Atorvastatin Calcium (Atorvastatin Calcium 40 Mg Tablet) 40 mg PO BEDTIME [facility] Dextrose (Dextrose 50 % 25 Gm/50 Ml Vial) 25 gm IVPUSH Q15M PRN; Protocol PRN Reason: per Hypoglycemia Standing Ord. Diphenhydramine HCl (Diphenhydramine Hcl 25 Mg Tablet) 12.5 mg PO BEDTIME PRN PRN Reason: Insomnia Docusate Sodium (Docusate Sodium 100 Mg Capsule) 100 mg PO DAILY PRN PRN Reason: Constipation Donepezil HCl (Donepezil Hcl 10 Mg Tablet) 10 mg PO QPM [facility] Glucose (Glucose Gel 15 Gm Gel..Gram.) 15 gm PO Q15M PRN; Protocol PRN Reason: per Hypoglycemia Standing Ord. Vancomycin HCl 1,250 mg/ (Sodium Chloride) 250 mls @ 166.667 mls/hr IV ONCE ONE Stop: 10/07/21 16:16 Piperacillin Sod/Tazobactam (Sod 2.25 gm/ Sodium Chloride) 50 mls @ 100 mls/hr IV Q6H [facility] Insulin Glargine (Insulin Glargine,Hum.Rec.Anlog 100 Unit/Ml 10 Ml Vial) 30 unit SUBCUT QPM [facility] Insulin Human Lispro (Insulin Lispro 100 Unit/Ml 3 Ml Vial) 0 unit SUBCUT QIDACHS [facility]; Protocol Memantine (Memantine Hcl 10 Mg Tablet) 10 mg PO BID [facility] Metoprolol Tartrate (Metoprolol Tartrate 100 Mg Tablet) 100 mg PO BID [facility]; Protocol Multivitamins/Vitamin C (Multivitamin Tablet) 1 tab PO DAILY [facility] Non-Formulary Medication (Citalopram) 1 tab PO DAILY [facility] Non-Formulary Medication (Magnesium Oxide) 1 tab PO DAILY [facility] Non-Formulary Medication (Carboxymethylcellulose Sodium [Refresh Tears]) 1 drop EYE-BOTH Q4-6H PRN PRN Reason: Dry Eye(S) Non-Formulary Medication (Pantoprazole) 1 tab PO DAILY [facility] Ondansetron HCl (Ondansetron Hcl 4 Mg/2 Ml Vial) 4 mg IVPUSH Q8H PRN PRN Reason: Nausea and Vomiting Pharmacy Consult (Consult Rx Perform Med Rec) 1 each MISCELLANE ONCE PRN PRN Reason: Consult order Pharmacy Consult (Consult Rx Vancomycin Dosing) 1 each MISCELLANE DAILY PRN PRN Reason: Consult order Sodium Chloride (0.9 % Sodium Chloride Flush 3 Ml Syringe) 3 ml IVFLUSH QSHIFT [facility] Home Medications Medication Instructions Recorded Confirmed Last Taken Type apixaban 5 mg tablet (Eliquis) 1 tab PO BID 09/05/21 10/07/21 10/06/21 History citalopram 10 mg tablet 1 tab PO DAILY 09/05/21 10/07/21 10/06/21 History donepezil 10 mg tablet 1 tab PO QPM 09/05/21 10/07/21 10/06/21 History gabapentin 800 mg tablet 1 tab PO BID 09/05/21 10/07/21 10/06/21 History glimepiride 4 mg tablet 1 tab PO BID 09/05/21 10/07/21 10/06/21 History irbesartan 300 mg tablet 1 tab PO DAILY 09/05/21 10/07/21 10/06/21 History magnesium oxide 1 tab PO DAILY 09/05/21 10/07/21 10/06/21 History memantine 10 mg tablet 1 tab PO BID 09/05/21 10/07/21 10/06/21 History metoprolol tartrate 100 mg tablet 1 tab PO BID 09/05/21 10/07/21 10/06/21 History jdqooeki-qpk-zcnhy acid 0.4 1 tab PO DAILY 09/05/21 10/07/21 10/06/21 History mg-lycopene 300 mcg-lutein 250 mcg tablet ([facility]) pantoprazole 40 mg tablet,delayed 1 tab PO DAILY 09/05/21 10/07/21 10/06/21 History release acetaminophen 500 mg tablet 1 tab PO Q6H PRN 10/07/21 10/07/21 10/06/21 History allopurinol 100 mg tablet 0.5 tab PO DAILY 10/07/21 10/07/21 10/06/21 History carboxymethylcellulose sodium 0.5 1 drp OPHTHALMIC (EYE) Q4-6H PRN 10/07/21 10/07/21 Unknown History % eye drops (Refresh Tears) diphenhydramine HCl 25 mg tablet 0.5 tab PO BEDTIME PRN 10/07/21 10/07/21 Unknown History (Banophen) insulin glargine 100 unit/mL (3 30 unit SUBCUT QPM 10/07/21 10/07/21 10/06/21 History mL) subcutaneous pen (Lantus Solostar U-100 Insulin) insulin lispro 200 unit/mL (3 mL) 0 - 14 unit SUBCUT TIDAC 10/07/21 10/07/21 10/06/21 History subcutaneous pen (Humalog KwikPen U-200 Insulin) Physical Exam Vital Signs and Narrative: Vital Signs: Last Vital Signs Temp 98.8 F 10/07/21 15:33 Pulse 84 10/07/21 15:33 Resp 14 10/07/21 15:33 BP 118/52 L 10/07/21 15:33 Pulse Ox 96 10/07/21 15:33 Body Mass Index 28.7 Const: General: healthy appearing, comfortable, no acute distress, alert and awake Eyes: Pupils: Equal, round and reactive pupils present Resp: Effort & Inspection: normal respiratory effort, able to speak in complete sentences and no respiratory distress Cardio: Jugular venous distension: no JVD Rate: regular rate Heart sounds: S1 normal heart sound present and S2 normal heart sound present GI: Inspection: No distended Palpation (GI): Soft to palpation and nontender Skin: Other: Neuro: Cranial nerves: Yes Equal, round and reactive pupils present Extrem: Other: palpable DP pulse right leg Results Labs CBC and Chem 7: 10/07/21 12:49 10/07/21 13:27 Labs: Laboratory Results - last 24 hr 10/07/21 10/07/21 10/07/21 12:49 12:49 12:49 MCV 102.3 H MCH 34.8 H MCHC 34.0 RDW 12.7 Plt Count 147 L MPV 11.5 Immature Gran % (Auto) 0.4 Neut % (Auto) 77.7 H Lymph % (Auto) 11.9 L [place] % (Auto) 8.0 Eos % (Auto) 1.7 Baso % (Auto) 0.3 Lymph # (Auto) 1.3 [place] # (Auto) 0.9 Eos # (Auto) 0.2 Baso # (Auto) 0.0 Abs Immat Gran (auto) 0.04 H Absolute Neuts (auto) 8.3 Absolute Nucleated RBC 0.000 Nucleated RBC % (auto) 0.0 ESR Anion Gap Estim Creat Clear Calc Estimated GFR Random Glucose Lactic Acid Calcium Magnesium Total Bilirubin Direct Bilirubin AST ALT Alkaline Phosphatase Troponin I High Sens 4.7 D C-Reactive Protein B-Natriuretic Peptide 164 H Cancelled Total Protein Albumin Urine Color Urine Appearance Urine pH Ur Specific [place] Urine Protein Urine Glucose (UA) Urine Ketones Urine Blood Urine Nitrite Ur Leukocyte Esterase 10/07/21 10/07/21 10/07/21 12:49 13:27 13:27 MCV MCH MCHC RDW Plt Count MPV Immature Gran % (Auto) Neut % (Auto) Lymph % (Auto) [place] % (Auto) Eos % (Auto) Baso % (Auto) Lymph # (Auto) [place] # (Auto) Eos # (Auto) Baso # (Auto) Abs Immat Gran (auto) Absolute Neuts (auto) Absolute Nucleated RBC Nucleated RBC % (auto) ESR 42 H Anion Gap 16 Estim Creat Clear Calc 36.1 Estimated GFR 33 Random Glucose 298 H Lactic Acid 1.8 Calcium 9.5 Magnesium 1.9 Total Bilirubin 1.3 H Direct Bilirubin 0.5 AST 21 ALT 18 Alkaline Phosphatase 108 Troponin I High Sens C-Reactive Protein 2.26 H B-Natriuretic Peptide Total Protein 7.6 D Albumin 4.0 Urine Color Urine Appearance Urine pH Ur Specific [place] Urine Protein Urine Glucose (UA) Urine Ketones Urine Blood Urine Nitrite Ur Leukocyte Esterase 10/07/21 15:41 MCV MCH MCHC RDW Plt Count MPV Immature Gran % (Auto) Neut % (Auto) Lymph % (Auto) [place] % (Auto) Eos % (Auto) Baso % (Auto) Lymph # (Auto) [place] # (Auto) Eos # (Auto) Baso # (Auto) Abs Immat Gran (auto) Absolute Neuts (auto) Absolute Nucleated RBC Nucleated RBC % (auto) ESR Anion Gap Estim Creat Clear Calc Estimated GFR Random Glucose Lactic Acid Calcium Magnesium Total Bilirubin Direct Bilirubin AST ALT Alkaline Phosphatase Troponin I High Sens C-Reactive Protein B-Natriuretic Peptide Total Protein Albumin Urine Color YELLOW Urine Appearance CLEAR Urine pH 6.0 Ur Specific [place] 1.010 Urine Protein NEG Urine Glucose (UA) >=1000 H Urine Ketones NEG Urine Blood TRACE Urine Nitrite NEG Ur Leukocyte Esterase NEG Imaging Radiologist's Impressions: Impressions Chest X-Ray 10/07/21 11:19 IMPRESSION: No acute disease. Cardiomegaly without pulmonary edema. Foot X-Ray 10/07/21 11:29 IMPRESSION: Healing distal right fibular fracture. Calcaneal spurs. Edema involving the first through third toes with asymmetric soft tissue density about the medial aspect of the first phalanx with soft tissue defects present involving the first and second toes which may represent lacerations or drainage sites. Duplex Scan Lower Extremity Artery 10/07/21 11:31 IMPRESSION: No evidence of hemodynamically significant stenosis of visualized portions of the right lower extremity arterial system. Venous Duplex 10/07/21 11:31 IMPRESSION: No acute DVT demonstrated in the right lower extremity. Assessment and Plan (1) JAMES (acute kidney injury): Status: Acute (2) Wound of right foot: Status: Acute This is a 76-year-old Haitian-speaking male with a history of dementia, atrial fibrillation on Eliquis diabetes, HFpEF, HTN, HLD, recent nstemi who presents to the ED with right foot wound found to have JAMES Right foot wound denies trauma, exposure to heat/cold but given decreased sensation and dementia either is a possibility does not appear acutely infected at this time, but given risk for infection will continue empiric abx for now surgical consult JAMES gentle IVF hold allopurinol, Bumex, irbesartan Monitor renal function daily Hyperkalemia Likely related to JAMES an LEI-inhibitor use Hold LEI-inhibitor Follow BNP HFpEF no evidence of volume overload at this time Hold Bumex Follow volume status closely HTN Blood pressure controlled Hold irbesartan, Bumex for JAMES Continue metoprolol DM hold glimeperide continue lantus SSI, POCs, ada diet Atrial fibrillation Heart rate controlled Continue metoprolol, anticoagulation with Eliquis dementia continue namenda, aricept HLD continue atorvastatin Mood Continue Lexapro GERD Continue omeprazole DVT prophylaxis-Eliquis code status-code Quality Stroke Does the patient have a stroke diagnosis?: No VTE Prior VTE?: No VTE Risk Level:: Medical - moderate - high VTE Device Contraindication: Treatment Not Indicated VTE Drug Contraindication: N/A - Med Ordered
[2021-10-07 15:56] LABS: Mucus Urine TRACE /LPF; RBC Urine 0 /HPF (0); Squamous Epithelial Cell Urine TRACE /LPF; WBC Urine 0 /HPF (0-4)
[2021-10-07 16:21] LABS: COVID-19 Test Negative (Negative)
--- NOTE | 2021-10-07 16:27 | PC.NURSE ---
pt resting comfortably at this time. pt is pending admission fot diabetic foot ulcer, pt and family have been updated as to plan of care. awaiting hospitalist for admission orders
[2021-10-07 17:41] LABS: Glucose, Whole Blood 336 mg/dL (60-115)
--- NOTE | 2021-10-07 17:57 | PM.CNGS ---
History of Present Illness Consult details Consult date: 10/07/21 Reason for consult: wound care Requesting physician: Anum Hall Narrative: This is a 76-year-old gentleman with a history of mild dementia and diabetes mellitus who was brought into the emergency department by his family after they noticed blisters and drainage from his right foot. His [id number] reports that his foot was normal in appearance last night but also says that he recently saw his building cleaner and was noted to have significant edema at that time. She reports that the edema has improved. She also states that the blister up on the the right great toe popped after he put his sandals on in that it has decreased in size significantly since then. There is no known history of trauma. The patient denies pain in the right foot. There is no history of fever or chills. Patient moved from [place] recently to live with his son and [id number] because of inability to care for himself independently. Review of Systems Review of Systems: Unreliable due to mental status. He does not report fever or chills. He denies chest pain, shortness of breath and cough. He has no pain in the right foot or leg. [facility] Past Medical History Medical History Alzheimer's dementia Atrial fibrillation Diabetes Heart failure with preserved ejection fraction HLD (hyperlipidemia) HTN (hypertension) Kidney failure NSTEMI (non-ST elevated myocardial infarction) Functional capacity: uses cane/walker Surgical History Surgical History No pertinent past surgical history Social History Social History Household Members: Family and Children Housing: Apartment Do you presently have visiting nurse or other home services: No Alcohol intake: never Patient Tobacco Use Status: Never used Tobacco Use of substances other than those prescribed or required for medical reasons: No Advance Directives: No service: No Current occupational status: retired Meds Allergies Allergy/AdvReac Type Severity Reaction Status Date / Time No Known Allergies Allergy Verified 09/05/21 20:27 Active Medications: Current Medications Acetaminophen (Acetaminophen 325 Mg Tablet) 650 mg PO Q6H PRN PRN Reason: Pain, Mild (Pain Scale 1-3) Apixaban (Apixaban 5 Mg Tablet) 5 mg PO BID [facility] Artificial Tears (Artificial Tears 15 Ml Drops) 1 drop EYE-BOTH Q4H PRN PRN Reason: Dry Eyes Atorvastatin Calcium (Atorvastatin Calcium 40 Mg Tablet) 40 mg PO BEDTIME [facility] Dextrose (Dextrose 50 % 25 Gm/50 Ml Vial) 25 gm IVPUSH Q15M PRN; Protocol PRN Reason: per Hypoglycemia Standing Ord. Diphenhydramine HCl (Diphenhydramine Hcl 25 Mg Tablet) 12.5 mg PO BEDTIME PRN PRN Reason: Insomnia Docusate Sodium (Docusate Sodium 100 Mg Capsule) 100 mg PO DAILY PRN PRN Reason: Constipation Donepezil HCl (Donepezil Hcl 10 Mg Tablet) 10 mg PO BEDTIME [facility] Escitalopram Oxalate (Escitalopram Oxalate 5 Mg Tablet) 5 mg PO DAILY [facility] Glucose (Glucose Gel 15 Gm Gel..Gram.) 15 gm PO Q15M PRN; Protocol PRN Reason: per Hypoglycemia Standing Ord. Piperacillin Sod/Tazobactam (Sod 2.25 gm/ Sodium Chloride) 50 mls @ 100 mls/hr IV Q6H [facility] Vancomycin HCl 1,500 mg/ (Sodium Chloride) 500 mls @ 333.333 mls/hr IV ONCE ONE Stop: 10/07/21 18:29 Lactated Ringer's (Lr) 1,000 mls @ 80 mls/hr IVCONT .[id number] [facility] Stop: 10/08/21 04:59 Insulin Glargine (Insulin Glargine,Hum.Rec.Anlog 100 Unit/Ml 10 Ml Vial) 30 unit SUBCUT BEDTIME [facility] Insulin Human Lispro (Insulin Lispro 100 Unit/Ml 3 Ml Vial) 0 unit SUBCUT QIDACHS [facility]; Protocol Magnesium Oxide (Magnesium Oxide 400 Mg Tablet) 200 mg PO DAILY [facility] Memantine (Memantine Hcl 10 Mg Tablet) 10 mg PO BID [facility] Metoprolol Tartrate (Metoprolol Tartrate 100 Mg Tablet) 100 mg PO BID [facility]; Protocol Multivitamins/Vitamin C (Multivitamin Tablet) 1 tab PO DAILY [facility] Omeprazole (Omeprazole 20 Mg Capsule.Dr) 20 mg PO DAILY [facility] Ondansetron HCl (Ondansetron Hcl 4 Mg/2 Ml Vial) 4 mg IVPUSH Q8H PRN PRN Reason: Nausea and Vomiting Pharmacy Consult (Consult Rx Perform Med Rec) 1 each MISCELLANE ONCE PRN PRN Reason: Consult order Pharmacy Consult (Consult Rx Vancomycin Dosing) 1 each MISCELLANE DAILY PRN PRN Reason: Consult order Sodium Chloride (0.9 % Sodium Chloride Flush 3 Ml Syringe) 3 ml IVFLUSH [facility] Medications Medication Instructions Recorded Confirmed Last Taken Type apixaban 5 mg tablet (Eliquis) 1 tab PO BID 09/05/21 10/07/21 10/06/21 History citalopram 10 mg tablet 1 tab PO DAILY 09/05/21 10/07/21 10/06/21 History donepezil 10 mg tablet 1 tab PO QPM 09/05/21 10/07/21 10/06/21 History gabapentin 800 mg tablet 1 tab PO BID 09/05/21 10/07/21 10/06/21 History glimepiride 4 mg tablet 1 tab PO BID 09/05/21 10/07/21 10/06/21 History irbesartan 300 mg tablet 1 tab PO DAILY 09/05/21 10/07/21 10/06/21 History magnesium oxide 1 tab PO DAILY 09/05/21 10/07/21 10/06/21 History memantine 10 mg tablet 1 tab PO BID 09/05/21 10/07/21 10/06/21 History metoprolol tartrate 100 mg tablet 1 tab PO BID 09/05/21 10/07/21 10/06/21 History deoenitg-kyd-lvxpf acid 0.4 1 tab PO DAILY 09/05/21 10/07/21 10/06/21 History mg-lycopene 300 mcg-lutein 250 mcg tablet ([facility]) pantoprazole 40 mg tablet,delayed 1 tab PO DAILY 09/05/21 10/07/21 10/06/21 History release acetaminophen 500 mg tablet 1 tab PO Q6H PRN 10/07/21 10/07/21 10/06/21 History allopurinol 100 mg tablet 0.5 tab PO DAILY 10/07/21 10/07/21 10/06/21 History carboxymethylcellulose sodium 0.5 1 drp OPHTHALMIC (EYE) Q4-6H PRN 10/07/21 10/07/21 Unknown History % eye drops (Refresh Tears) diphenhydramine HCl 25 mg tablet 0.5 tab PO BEDTIME PRN 10/07/21 10/07/21 Unknown History (Banophen) insulin glargine 100 unit/mL (3 30 unit SUBCUT QPM 10/07/21 10/07/21 10/06/21 History mL) subcutaneous pen (Lantus Solostar U-100 Insulin) insulin lispro 200 unit/mL (3 mL) 0 - 14 unit SUBCUT TIDAC 10/07/21 10/07/21 10/06/21 History subcutaneous pen (Humalog KwikPen U-200 Insulin) Physical Exam Vital Signs: Vital Signs: Last Vital Signs Temp 98.8 F 10/07/21 15:33 Pulse 84 10/07/21 15:33 Resp 14 10/07/21 15:33 BP 118/52 L 10/07/21 15:33 Pulse Ox 96 10/07/21 15:33 Body Mass Index 28.7 Const: Other: Alert, cooperative, in no apparent distress HENMT: Head: Yes normocephalic and Yes atraumatic Eyes: General: appearance normal, both eyes and all related structures Neck: Neck: Yes trachea midline and Yes supple Resp: Effort & Inspection: normal respiratory effort Auscultation: clear to auscultation bilaterally Cardio: Rate: regular rate Rhythm: regular rhythm GI: Other: Soft, nontender, nondistended Extrem: Other: There is blistering and erythema involving right toes 1 through 4. The great toe is more significantly involved with blistering extending to the base. There is a demarcation along the plantar aspect of the foot just proximal to the level of the toes. Dorsalis pedis pulses are palpable. There is no pitting. Feet are warm. Results Labs Result diagrams: 10/07/21 12:49 10/07/21 13:27 Labs: Abnormal lab results 10/07/21 10/07/21 10/07/21 Range/Units 12:49 12:49 12:49 RBC 4.31 L (4.60-5.80) X10*6/uL MCV 102.3 H (80.0-98.0) fL MCH 34.8 H (27.0-33.0) pg Plt Count 147 L (160-400) X10*3/uL Neut % (Auto) 77.7 H (45-73) % Lymph % (Auto) 11.9 L (20-40) % Abs Immat Gran (auto) 0.04 H (0.00-0.03) X10*3/uL ESR 42 H (0-15) MM/HR Sodium (135-145) mmol/L Potassium (3.3-5.1) mmol/L Chloride (96-108) mmol/L BUN (9-16) mg/dL Creatinine (0.5-1.4) mg/dL POC Glucose (60-115) mg/dL Random Glucose (60-115) mg/dL Total Bilirubin (0.0-1.0) mg/dL C-Reactive Protein (< or = 0.50) mg/dL B-Natriuretic Peptide 164 H (<100) pg/mL Urine Glucose (UA) (NEG) MG/DL 10/07/21 10/07/21 10/07/21 Range/Units 13:27 15:41 17:37 RBC (4.60-5.80) X10*6/uL MCV (80.0-98.0) fL MCH (27.0-33.0) pg Plt Count (160-400) X10*3/uL Neut % (Auto) (45-73) % Lymph % (Auto) (20-40) % Abs Immat Gran (auto) (0.00-0.03) X10*3/uL ESR (0-15) MM/HR Sodium 134 L (135-145) mmol/L Potassium 5.3 H (3.3-5.1) mmol/L Chloride 94 L (96-108) mmol/L BUN 42 H D (9-16) mg/dL Creatinine 1.97 H (0.5-1.4) mg/dL POC Glucose 336 H (60-115) mg/dL Random Glucose 298 H (60-115) mg/dL Total Bilirubin 1.3 H (0.0-1.0) mg/dL C-Reactive Protein 2.26 H (< or = 0.50) mg/dL B-Natriuretic Peptide (<100) pg/mL Urine Glucose (UA) >=1000 H (NEG) MG/DL Short CBC 10/07/21 Range/Units 12:49 WBC 10.7 (4.8-10.8) X10*3/uL Hgb 15.0 (14.0-18.0) g/dl Hct 44.1 (42.0-52.0) % Plt Count 147 L (160-400) X10*3/uL BMP 10/07/21 13:27 Sodium 134 L Potassium 5.3 H Chloride 94 L Carbon Dioxide 29 BUN 42 H D Creatinine 1.97 H Calcium 9.5 Liver Function 10/07/21 Range/Units 13:27 Total Bilirubin 1.3 H (0.0-1.0) mg/dL Direct Bilirubin 0.5 (0.0-0.5) mg/dL AST 21 (5-37) U/L ALT 18 (0-40) U/L Alkaline Phosphatase 108 (39-117) U/L Albumin 4.0 (3.5-5.0) g/dL Urine 10/07/21 Range/Units 15:41 Urine Color YELLOW Urine Appearance CLEAR Urine pH 6.0 (5.0-8.0) Ur Specific [place] 1.010 (1.005-1.025) Urine Protein NEG (NEG-TRACE) MG/DL Urine Glucose (UA) >=1000 H (NEG) MG/DL All other labs normal. Assessment and Plan (1) Wound of right foot: Status: Acute (2) Cellulitis: Status: Acute (3) JAMES (acute kidney injury): Status: Acute (4) Diabetes mellitus: Status: Acute 76-year-old male with history of mild dementia, diabetes mellitus with peripheral neuropathy presenting with acute kidney injury and right foot wounds, bullae, etiology unclear. The presence of fully and fairly clear line of demarcation on the plantar aspect of the foot raises the possibility of burn injury though the 5th toe appears spared which would be somewhat unusual. There may be an element of cellulitis. Will begin local care with Silvadene and dry sterile dressing. Debridement of the bullae may be needed. Antibiotic therapy has been initiated with vancomycin and Zosyn. Discussed with daughter in law. Will follow along. Note history of atrial fibrillation. Chronically anticoagulated on apixaban. Procedures Date of Service Date of Service: 10/07/21
[2021-10-07] MEDS: vancomycin HCL 1,500 MG in 0.9 % Sodium Chloride 500 ML 333.33 MG IV (17:59)
--- NOTE | 2021-10-07 18:25 | PHA.PROG ---
Admission Date/Time: October 07, 2021 15:35 Indication: Skin/ Skin Structure Weight in k.718 kg Adjusted body weight in Kg: [place] body weight in Kg: Obesity Dosing Indication % IBW: Serum Creatinine - Last 168 Hours 10/07/21 13:27 Creatinine 1.97 H Estimated CrCl and GFR - Last 168 Hours 10/07/21 13:27 Estim Creat Clear Calc 36.1 Estimated GFR 33 Vancomycin Loading Dose: 1500mg Current Vancomycin Dosing Regimen: 1000mg q24 (12 hours post load) Vancomycin Monitoring using AUC goal of 400 - 600 range with trough as surrogate marker: auc 517, trough 17.2 Date and Time for next Vancomycin Level to be drawn: draw 10/09 @0500 Pharmacist Comments on Vancomycin Plan: goal is to get to goal AUC faster (hence load and maintenance dose starting 12 hours later) Vancomycin dosing will take advantage of [employer] as a clinical decision support tool that uses Bayesian modeling to calculate individual patient's pharmacokinetic parameters and forecast the patient's drug concentration time course with the target goal AUC 24 range of 400 - 600 mg/L/hr.
[2021-10-07 18:27] VITALS: BP 124/67; PULSE 88; TEMP 37.1
[2021-10-07 19:09] VITALS: BP 142/76; PULSE 85; RESP 16; TEMP 36.9; O2SAT 96
[2021-10-07] MEDS: Lactated Ringers 1,000 ML 80 ML IVCONT (19:52)
--- NOTE | 2021-10-07 19:56 | PC.NURSE ---
FAMILY MEMBER A BEDSIDE AND PATIENT UPSET ABOUT NOT RECEIVING INSULIN WITH DINNER TONIGHT. INFORMING FAMILY MEMBER THAT THIS RN WILL BE BACK IN A FEW MINUTES TO RECHECK HIS SUGAR AND HAVE HIS NIGHT TIME MEDICATIONS. FAMILY SEEMS SATISFIED WITH HIS RESPONSE
[2021-10-07 20:20] LABS: Glucose, Whole Blood 352 mg/dL (60-115)
[2021-10-07 20:22] VITALS: BP 159/82; PULSE 71
[2021-10-07] MEDS: Donepezil HCl 10 MG TABLET PO (20:22)
[2021-10-07] MEDS: Atorvastatin Calcium 40 MG TABLET PO (20:22)
[2021-10-07] MEDS: Memantine HCl 10 MG TABLET PO (20:22)
[2021-10-07] MEDS: Metoprolol Tartrate 100 MG TABLET PO (20:22)
[2021-10-07] MEDS: Apixaban 5 MG TABLET PO (20:23)
[2021-10-07] MEDS: Insulin Lispro 100 UNIT/ML 3 ML VIAL SUBCUT (20:23)
[2021-10-07] MEDS: Insulin Glargine,Hum.rec.anlog 100 UNIT/ML 10 ML VIAL 30 UNIT SUBCUT (20:23)
[2021-10-07] MEDS: Piperacillin Sodium/Tazobactam 2.25 GM in 0.9 % Sodium Chloride 50 ML IV (20:24)
[2021-10-07 22:46] VITALS: BP 168/75; PULSE 95; RESP 18; TEMP 36.6; O2SAT 98
[2021-10-07 23:00] LABS: Glucose, Whole Blood 390 mg/dL (60-115)
--- NOTE | 2021-10-07 23:06 | PC.NURSE ---
P patient BS on arrival [phone] Clark notified E will monitor
--- NOTE | 2021-10-07 23:07 | PC.NURSE ---
Patient yemeni speaking only,alert to name ,bed alarm on for safety,telesiter in place
[2021-10-08] VITALS: BP 168/73; PULSE 80; RESP 17; TEMP 36.8; O2SAT 95
[2021-10-08] MEDS: Insulin Lispro 100 UNIT/ML 3 ML VIAL SUBCUT ×5 (00:31→21:40)
[2021-10-08] MEDS: Piperacillin Sodium/Tazobactam 2.25 GM in 0.9 % Sodium Chloride 50 ML IV ×4 (04:16→21:39)
[2021-10-08 05:34] LABS: MANUAL DIFF FLAG NO
[2021-10-08 05:49] LABS: Basophils Percent Auto 0.2 % (0-2); Eosinophils Absolute Auto 0.1 X10*3/uL (0.0-0.4); Eosinophils Percent Auto 1.2 % (0-4); Hematocrit 39.1 % (42.0-52.0); Hemoglobin 13.7 g/dl (14.0-18.0); Imm Gran Abs Auto 0.02 X10*3/uL (0.00-0.03); Imm Gran Pct Auto 0.2 % (0.0-0.4); Lymphocytes Absolute Auto 1.4 X10*3/uL (1.2-4.9); Lymphocytes Percent Auto 14.6 % (20-40); Mean Corpuscular Hemoglobin 35.1 pg (27.0-33.0); Mean Corpuscular Volume 100.3 fL (80.0-98.0); Mean Platelet Volume 11.8 fL (9.4-12.4); Monocytes Percent Auto 10.5 % (2-11); Neutrophils Percent Auto 73.3 % (45-73); Platelet Count 143 X10*3/uL (160-400); Red Cell Distribution Width 12.5 % (11.0-16.0); White Blood Count 9.5 X10*3/uL (4.8-10.8)
[2021-10-08 05:56] LABS: Anion Gap 16 (12-20); Blood Urea Nitrogen 38 mg/dL (9-16); Calcium 8.6 mg/dL (8.4-10.2); Carbon Dioxide 27 mmol/L (22-29); Chloride 99 mmol/L (96-108); Creatinine Clr Calc Pharmacy 41.6; Estimated Glomerular Filt Rate 39; Glucose Random 258 mg/dL (60-115); Potassium 4.8 mmol/L (3.3-5.1); Sodium 137 mmol/L (135-145)
[2021-10-08 06:19] VITALS: BMI 28.7
[2021-10-08 07:59] LABS: Glucose, Whole Blood 263 mg/dL (60-115)
[2021-10-08 08:00] VITALS: BP 157/74; PULSE 81; RESP 18; TEMP 36.2; O2SAT 94
[2021-10-08] MEDS: vancomycin HCL 1,000 MG in 0.9 % Sodium Chloride 250 ML 270 MG IV (08:11)
[2021-10-08] MEDS: 0.9 % Sodium Chloride Flush 3 ML SYRINGE IVFLUSH ×2 (08:12→17:01)
[2021-10-08] MEDS: Magnesium Oxide 400 MG TABLET 200 MG PO (08:12)
[2021-10-08 08:13] VITALS: BP 150/64; PULSE 74
[2021-10-08] MEDS: Multivitamin TABLET 1 TAB PO (08:13)
[2021-10-08] MEDS: Escitalopram Oxalate 5 MG TABLET PO (08:13)
[2021-10-08] MEDS: Metoprolol Tartrate 100 MG TABLET PO ×2 (08:13→21:41)
[2021-10-08] MEDS: Apixaban 5 MG TABLET PO ×2 (08:13→21:41)
[2021-10-08] MEDS: Memantine HCl 10 MG TABLET PO ×2 (08:13→21:41)
[2021-10-08] MEDS: Omeprazole 20 MG CAPSULE.DR PO (08:13)
--- NOTE | 2021-10-08 10:32 | P.PNIM_ITS ---
Subjective Subjective Date of Service: 10/08/21 Interval History: cc: right foot erythema, blister interval hsitory: no new complaints Cardiovascular Cardiovascular: Reports no additional cardiovascular complaints Respiratory Respiratory: Reports no additional respiratory complaints Physical Exam Vital Signs: Vital Signs: Last Vital Signs Temp 97.1 F 10/08/21 08:00 Pulse 74 10/08/21 08:13 Resp 18 10/08/21 08:00 BP 150/64 H 10/08/21 08:13 Pulse Ox 94 10/08/21 08:00 Body Mass Index 28.7 General: AO X 3, no acute distress Resp: CTA bilateral, no accessory muscles used CVS: S1,S2,RRR GI: soft, non tender, non distended Neuro: motor grossly intact, alert Psych: appropriate affect, appropriate insight blistering and erythema involving right toes 1 through 4. The great toe is more significantly involved with blistering extending to the base.? There is a demarcation along the plantar aspect of the foot just proximal to the level of the toes.? Dorsalis pedis pulses are palpable.? There is no pitting.? Feet are warm. Objective Data Active Medications Acetaminophen (Acetaminophen 325 Mg Tablet) 650 mg PO Q6H PRN PRN Reason: Pain, Mild (Pain Scale 1-3) Apixaban (Apixaban 5 Mg Tablet) 5 mg PO BID [facility] Last Admin: 10/08/21 08:13 Dose: 5 mg Documented by: GETACHEW Artificial Tears (Artificial Tears 15 Ml Drops) 1 drop EYE-BOTH Q4H PRN PRN Reason: Dry Eyes Atorvastatin Calcium (Atorvastatin Calcium 40 Mg Tablet) 40 mg PO BEDTIME [facility] Last Admin: 10/07/21 20:22 Dose: 40 mg Documented by: MAYANK Dextrose (Dextrose 50 % 25 Gm/50 Ml Vial) 25 gm IVPUSH Q15M PRN; Protocol PRN Reason: per Hypoglycemia Standing Ord. Diphenhydramine HCl (Diphenhydramine Hcl 25 Mg Tablet) 12.5 mg PO BEDTIME PRN PRN Reason: Insomnia Docusate Sodium (Docusate Sodium 100 Mg Capsule) 100 mg PO DAILY PRN PRN Reason: Constipation Donepezil HCl (Donepezil Hcl 10 Mg Tablet) 10 mg PO BEDTIME [facility] Last Admin: 10/07/21 20:22 Dose: 10 mg Documented by: MAYANK Escitalopram Oxalate (Escitalopram Oxalate 5 Mg Tablet) 5 mg PO DAILY [facility] Last Admin: 10/08/21 08:13 Dose: 5 mg Documented by: GETACHEW Glucose (Glucose Gel 15 Gm Gel..Gram.) 15 gm PO Q15M PRN; Protocol PRN Reason: per Hypoglycemia Standing Ord. Piperacillin Sod/Tazobactam (Sod 2.25 gm/ Sodium Chloride) 50 mls @ 100 mls/hr IV Q6H [facility] Last Admin: 10/08/21 10:12 Dose: 100 mls/hr Documented by: GETACHEW Vancomycin HCl 1,000 mg/ (Sodium Chloride) 270 mls @ 270 mls/hr IV Q24H [facility] Last Infusion: 10/08/21 09:47 Dose: 0 mls/hr Documented by: GETACHEW Insulin Glargine (Insulin Glargine,Hum.Rec.Anlog 100 Unit/Ml 10 Ml Vial) 30 unit SUBCUT BEDTIME [facility] Last Admin: 10/07/21 20:23 Dose: 30 unit Documented by: MAYANK Insulin Human Lispro (Insulin Lispro 100 Unit/Ml 3 Ml Vial) 0 unit SUBCUT QIDACHS [facility]; Protocol Last Admin: 10/08/21 08:12 Dose: 6 unit Documented by: GETACHEW Magnesium Oxide (Magnesium Oxide 400 Mg Tablet) 200 mg PO DAILY [facility] Last Admin: 10/08/21 08:12 Dose: 200 mg Documented by: GETACHEW Memantine (Memantine Hcl 10 Mg Tablet) 10 mg PO BID [facility] Last Admin: 10/08/21 08:13 Dose: 10 mg Documented by: GETACHEW Metoprolol Tartrate (Metoprolol Tartrate 100 Mg Tablet) 100 mg PO BID [facility]; Protocol Last Admin: 10/08/21 08:13 Dose: 100 mg Documented by: GETACHEW Multivitamins/Vitamin C (Multivitamin Tablet) 1 tab PO DAILY [facility] Last Admin: 10/08/21 08:13 Dose: 1 tab Documented by: GETACHEW Omeprazole (Omeprazole 20 Mg Capsule.Dr) 20 mg PO DAILY [facility] Last Admin: 10/08/21 08:13 Dose: 20 mg Documented by: GETACHEW Ondansetron HCl (Ondansetron Hcl 4 Mg/2 Ml Vial) 4 mg IVPUSH Q8H PRN PRN Reason: Nausea and Vomiting Pharmacy Consult (Consult Rx Perform Med Rec) 1 each MISCELLANE ONCE PRN PRN Reason: Consult order Pharmacy Consult (Consult Rx Vancomycin Dosing) 1 each MISCELLANE DAILY PRN PRN Reason: Consult order Sodium Chloride (0.9 % Sodium Chloride Flush 3 Ml Syringe) 3 ml IVFLUSH QSHIFT [facility] Last Admin: 10/08/21 08:12 Dose: 3 ml Documented by: GETACHEW Labs CBC & Chem 7: 10/08/21 05:14 10/08/21 05:14 Labs: Laboratory Results - last 24 hr 10/07/21 10/07/21 10/07/21 12:49 12:49 12:49 MCV 102.3 H MCH 34.8 H MCHC 34.0 RDW 12.7 Plt Count 147 L MPV 11.5 Immature Gran % (Auto) 0.4 Neut % (Auto) 77.7 H Lymph % (Auto) 11.9 L Wise % (Auto) 8.0 Eos % (Auto) 1.7 Baso % (Auto) 0.3 Lymph # (Auto) 1.3 Wise # (Auto) 0.9 Eos # (Auto) 0.2 Baso # (Auto) 0.0 Abs Immat Gran (auto) 0.04 H Absolute Neuts (auto) 8.3 Absolute Nucleated RBC 0.000 Nucleated RBC % (auto) 0.0 ESR Anion Gap Estim Creat Clear Calc Estimated GFR POC Glucose Random Glucose Lactic Acid Calcium Magnesium Total Bilirubin Direct Bilirubin AST ALT Alkaline Phosphatase Troponin I High Sens 4.7 D C-Reactive Protein B-Natriuretic Peptide 164 H Cancelled Total Protein Albumin Urine Color Urine Appearance Urine pH Ur Specific Rex Urine Protein Urine Glucose (UA) Urine Ketones Urine Blood Urine Nitrite Ur Leukocyte Esterase Urine RBC Urine WBC Ur Squamous Epith Cells Urine Bacteria Urine Mucus COVID-19 (REMY) COVID-19 Clin Com 10/07/21 10/07/21 10/07/21 12:49 13:27 13:27 MCV MCH MCHC RDW Plt Count MPV Immature Gran % (Auto) Neut % (Auto) Lymph % (Auto) Wise % (Auto) Eos % (Auto) Baso % (Auto) Lymph # (Auto) Wise # (Auto) Eos # (Auto) Baso # (Auto) Abs Immat Gran (auto) Absolute Neuts (auto) Absolute Nucleated RBC Nucleated RBC % (auto) ESR 42 H Anion Gap 16 Estim Creat Clear Calc 36.1 Estimated GFR 33 POC Glucose Random Glucose 298 H Lactic Acid 1.8 Calcium 9.5 Magnesium 1.9 Total Bilirubin 1.3 H Direct Bilirubin 0.5 AST 21 ALT 18 Alkaline Phosphatase 108 Troponin I High Sens C-Reactive Protein 2.26 H B-Natriuretic Peptide Total Protein 7.6 D Albumin 4.0 Urine Color Urine Appearance Urine pH Ur Specific Rex Urine Protein Urine Glucose (UA) Urine Ketones Urine Blood Urine Nitrite Ur Leukocyte Esterase Urine RBC Urine WBC Ur Squamous Epith Cells Urine Bacteria Urine Mucus COVID-19 (REMY) COVID-19 [email or web address] 10/07/21 10/07/21 10/07/21 15:41 15:41 17:37 MCV MCH MCHC RDW Plt Count MPV Immature Gran % (Auto) Neut % (Auto) Lymph % (Auto) Wise % (Auto) Eos % (Auto) Baso % (Auto) Lymph # (Auto) Wise # (Auto) Eos # (Auto) Baso # (Auto) Abs Immat Gran (auto) Absolute Neuts (auto) Absolute Nucleated RBC Nucleated RBC % (auto) ESR Anion Gap Estim Creat Clear Calc Estimated GFR POC Glucose 336 H Random Glucose Lactic Acid Calcium Magnesium Total Bilirubin Direct Bilirubin AST ALT Alkaline Phosphatase Troponin I High Sens C-Reactive Protein B-Natriuretic Peptide Total Protein Albumin Urine Color YELLOW Urine Appearance CLEAR Urine pH 6.0 Ur Specific Rex 1.010 Urine Protein NEG Urine Glucose (UA) >=1000 H Urine Ketones NEG Urine Blood TRACE Urine Nitrite NEG Ur Leukocyte Esterase NEG Urine RBC 0 Urine WBC 0 Ur Squamous Epith Cells TRACE Urine Bacteria NONE Urine Mucus TRACE COVID-19 (REMY) Negative COVID-19 [employer] See Note 10/07/21 10/07/21 10/08/21 20:15 22:56 05:14 MCV 100.3 H MCH 35.1 H MCHC 35.0 RDW 12.5 Plt Count 143 L MPV 11.8 Immature Gran % (Auto) 0.2 Neut % (Auto) 73.3 H Lymph % (Auto) 14.6 L Wise % (Auto) 10.5 Eos % (Auto) 1.2 Baso % (Auto) 0.2 Lymph # (Auto) 1.4 Wise # (Auto) 1.0 Eos # (Auto) 0.1 Baso # (Auto) 0.0 Abs Immat Gran (auto) 0.02 Absolute Neuts (auto) 7.0 Absolute Nucleated RBC 0.000 Nucleated RBC % (auto) 0.0 ESR Anion Gap Estim Creat Clear Calc Estimated GFR POC Glucose 352 H* 390 H* Random Glucose Lactic Acid Calcium Magnesium Total Bilirubin Direct Bilirubin AST ALT Alkaline Phosphatase Troponin I High Sens C-Reactive Protein B-Natriuretic Peptide Total Protein Albumin Urine Color Urine Appearance Urine pH Ur Specific Rex Urine Protein Urine Glucose (UA) Urine Ketones Urine Blood Urine Nitrite Ur Leukocyte Esterase Urine RBC Urine WBC Ur Squamous Epith Cells Urine Bacteria Urine Mucus COVID-19 (REMY) COVID-19 [employer] 10/08/21 10/08/21 05:14 07:46 MCV MCH MCHC RDW Plt Count MPV Immature Gran % (Auto) Neut % (Auto) Lymph % (Auto) Wise % (Auto) Eos % (Auto) Baso % (Auto) Lymph # (Auto) Wise # (Auto) Eos # (Auto) Baso # (Auto) Abs Immat Gran (auto) Absolute Neuts (auto) Absolute Nucleated RBC Nucleated RBC % (auto) ESR Anion Gap 16 Estim Creat Clear Calc 41.6 Estimated GFR 39 POC Glucose 263 H Random Glucose 258 H Lactic Acid Calcium 8.6 D Magnesium Total Bilirubin Direct Bilirubin AST ALT Alkaline Phosphatase Troponin I High Sens C-Reactive Protein B-Natriuretic Peptide Total Protein Albumin Urine Color Urine Appearance Urine pH Ur Specific Rex Urine Protein Urine Glucose (UA) Urine Ketones Urine Blood Urine Nitrite Ur Leukocyte Esterase Urine RBC Urine WBC Ur Squamous Epith Cells Urine Bacteria Urine Mucus COVID-19 (REMY) COVID-19 [employer] Assessment and Plan (1) Wound of right foot: Status: Acute (2) JAMES (acute kidney injury): Status: Acute (3) Diabetes mellitus: Status: Acute Assessment and Plan: 76-year-old male with a history of dementia, atrial fibrillation on Eliquis diabetes, HFpEF, HTN, HLD, recent nstemi presented to the ED with right foot wound found to have JAMES Right foot wound denies trauma, exposure to heat/cold but given decreased sensation and dementia either is a possibility possible superimposed cellulitis,l continue empiric abx for now surgical appreciated, continue silvadene JAMES holding allopurinol, Bumex, irbesartan Monitor renal function improving, close to baseline Hyperkalemia Likely related to JAMES and ARB resolved HFpEF no evidence of volume overload at this time Hold Bumex Follow volume status closely HTN Blood pressure controlled Hold irbesartan, Bumex for JAMES Continue metoprolol DM with hyperglycemia hold glimeperide continue lantus SSI, POCs, ada diet monitor poc permanent Atrial fibrillation Heart rate controlled Continue metoprolol, anticoagulation with Eliquis dementia continue namenda, aricept HLD continue atorvastatin Mood Continue Lexapro GERD Continue omeprazole DVT prophylaxis-Eliquis code status-code Quality Stroke Does the patient have a stroke diagnosis?: No VTE Prior VTE?: No VTE Risk Level:: Medical - moderate - high VTE Device Contraindication: Treatment Not Indicated VTE Drug Contraindication: N/A - Med Ordered
[2021-10-08 11:50] LABS: Glucose, Whole Blood 258 mg/dL (60-115)
--- NOTE | 2021-10-08 13:28 | P.PNGS_ITS ---
Subjective Subjective Date of Service: 10/08/21 Interval history: Offers no complaints, denies foot pain. Physical Exam Vital Signs: Vital Signs: Last Vital Signs Temp 97.1 F 10/08/21 08:00 Pulse 74 10/08/21 08:13 Resp 18 10/08/21 08:00 BP 150/64 H 10/08/21 08:13 Pulse Ox 94 10/08/21 08:00 Body Mass Index 28.7 Const: Other: Alert, cooperative, in no apparent distress Extrem: Other: New blistering of right 5th toe and mild discoloration left 2nd and 3rd toes, otherwise stable findings, bullae right 1st through 4th toes with rupture of bulla right great toe, underlying dermal tissue appears clean and healthy, no proximal progression of process Objective Data Active Medications Acetaminophen (Acetaminophen 325 Mg Tablet) 650 mg PO Q6H PRN PRN Reason: Pain, Mild (Pain Scale 1-3) Apixaban (Apixaban 5 Mg Tablet) 5 mg PO BID [facility] Last Admin: 10/08/21 08:13 Dose: 5 mg Documented by: GETACHEW Artificial Tears (Artificial Tears 15 Ml Drops) 1 drop EYE-BOTH Q4H PRN PRN Reason: Dry Eyes Atorvastatin Calcium (Atorvastatin Calcium 40 Mg Tablet) 40 mg PO BEDTIME [facility] Last Admin: 10/07/21 20:22 Dose: 40 mg Documented by: MAYANK Dextrose (Dextrose 50 % 25 Gm/50 Ml Vial) 25 gm IVPUSH Q15M PRN; Protocol PRN Reason: per Hypoglycemia Standing Ord. Diphenhydramine HCl (Diphenhydramine Hcl 25 Mg Tablet) 12.5 mg PO BEDTIME PRN PRN Reason: Insomnia Docusate Sodium (Docusate Sodium 100 Mg Capsule) 100 mg PO DAILY PRN PRN Reason: Constipation Donepezil HCl (Donepezil Hcl 10 Mg Tablet) 10 mg PO BEDTIME [facility] Last Admin: 10/07/21 20:22 Dose: 10 mg Documented by: MAYANK Escitalopram Oxalate (Escitalopram Oxalate 5 Mg Tablet) 5 mg PO DAILY [facility] Last Admin: 10/08/21 08:13 Dose: 5 mg Documented by: GETACHEW Glucose (Glucose Gel 15 Gm Gel..Gram.) 15 gm PO Q15M PRN; Protocol PRN Reason: per Hypoglycemia Standing Ord. Piperacillin Sod/Tazobactam (Sod 2.25 gm/ Sodium Chloride) 50 mls @ 100 mls/hr IV Q6H [facility] Last Infusion: 10/08/21 10:54 Dose: 0 mls/hr Documented by: GETACHEW Vancomycin HCl 1,000 mg/ (Sodium Chloride) 270 mls @ 270 mls/hr IV Q24H [facility] Last Infusion: 10/08/21 09:47 Dose: 0 mls/hr Documented by: GETACHEW Insulin Glargine (Insulin Glargine,Hum.Rec.Anlog 100 Unit/Ml 10 Ml Vial) 30 unit SUBCUT BEDTIME [facility] Last Admin: 10/07/21 20:23 Dose: 30 unit Documented by: MAYANK Insulin Human Lispro (Insulin Lispro 100 Unit/Ml 3 Ml Vial) 0 unit SUBCUT QIDACHS [facility]; Protocol Last Admin: 10/08/21 12:03 Dose: 6 unit Documented by: GETACHEW Magnesium Oxide (Magnesium Oxide 400 Mg Tablet) 200 mg PO DAILY [facility] Last Admin: 10/08/21 08:12 Dose: 200 mg Documented by: GETACHEW Memantine (Memantine Hcl 10 Mg Tablet) 10 mg PO BID [facility] Last Admin: 10/08/21 08:13 Dose: 10 mg Documented by: GETACHEW Metoprolol Tartrate (Metoprolol Tartrate 100 Mg Tablet) 100 mg PO BID [facility]; Prot ocol Last Admin: 10/08/21 08:13 Dose: 100 mg Documented by: GETACHEW Multivitamins/Vitamin C (Multivitamin Tablet) 1 tab PO DAILY [facility] Last Admin: 10/08/21 08:13 Dose: 1 tab Documented by: GETACHEW Omeprazole (Omeprazole 20 Mg Capsule.Dr) 20 mg PO DAILY [facility] Last Admin: 10/08/21 08:13 Dose: 20 mg Documented by: GETACHEW Ondansetron HCl (Ondansetron Hcl 4 Mg/2 Ml Vial) 4 mg IVPUSH Q8H PRN PRN Reason: Nausea and Vomiting Pharmacy Consult (Consult Rx Perform Med Rec) 1 each MISCELLANE ONCE PRN PRN Reason: Consult order Pharmacy Consult (Consult Rx Vancomycin Dosing) 1 each MISCELLANE DAILY PRN PRN Reason: Consult order Silver Sulfadiazine (Silver Sulfadiazine 1 % Cream 20 Gm Tube) 1 appl TOPICAL DAILY [facility] Last Admin: 10/08/21 11:56 Dose: Not Given Documented by: GETACHEW Non-Admin Reason: Previously Administered Sodium Chloride (0.9 % Sodium Chloride Flush 3 Ml Syringe) 3 ml IVFLUSH QSHIFT [facility] Last Admin: 10/08/21 08:12 Dose: 3 ml Documented by: GETACHEW Labs CBC & Chem 7: 10/08/21 05:14 10/08/21 05:14 Labs: Laboratory Results - last 24 hr 10/07/21 10/07/21 10/07/21 12:49 12:49 13:27 MCV MCH MCHC RDW Plt Count MPV Immature Gran % (Auto) Neut % (Auto) Lymph % (Auto) Atkinson % (Auto) Eos % (Auto) Baso % (Auto) Lymph # (Auto) Atkinson # (Auto) Eos # (Auto) Baso # (Auto) Abs Immat Gran (auto) Absolute Neuts (auto) Absolute Nucleated RBC Nucleated RBC % (auto) ESR 42 H Anion Gap 16 Estim Creat Clear Calc 36.1 Estimated GFR 33 POC Glucose Random Glucose 298 H Lactic Acid Calcium 9.5 Magnesium 1.9 Total Bilirubin 1.3 H Direct Bilirubin 0.5 AST 21 ALT 18 Alkaline Phosphatase 108 C-Reactive Protein 2.26 H B-Natriuretic Peptide 164 H Total Protein 7.6 D Albumin 4.0 Urine Color Urine Appearance Urine pH Ur Specific [place] Urine Protein Urine Glucose (UA) Urine Ketones Urine Blood Urine Nitrite Ur Leukocyte Esterase Urine RBC Urine WBC Ur Squamous Epith Cells Urine Bacteria Urine Mucus COVID-19 (REMY) COVID-19 Clin Com 10/07/21 10/07/21 10/07/21 13:27 15:41 15:41 MCV MCH MCHC RDW Plt Count MPV Immature Gran % (Auto) Neut % (Auto) Lymph % (Auto) Atkinson % (Auto) Eos % (Auto) Baso % (Auto) Lymph # (Auto) Atkinson # (Auto) Eos # (Auto) Baso # (Auto) Abs Immat Gran (auto) Absolute Neuts (auto) Absolute Nucleated RBC Nucleated RBC % (auto) ESR Anion Gap Estim Creat Clear Calc Estimated GFR POC Glucose Random Glucose Lactic Acid 1.8 Calcium Magnesium Total Bilirubin Direct Bilirubin AST ALT Alkaline Phosphatase C-Reactive Protein B-Natriuretic Peptide Total Protein Albumin Urine Color YELLOW Urine Appearance CLEAR Urine pH 6.0 Ur Specific [place] 1.010 Urine Protein NEG Urine Glucose (UA) >=1000 H Urine Ketones NEG Urine Blood TRACE Urine Nitrite NEG Ur Leukocyte Esterase NEG Urine RBC 0 Urine WBC 0 Ur Squamous Epith Cells TRACE Urine Bacteria NONE Urine Mucus TRACE COVID-19 (REMY) Negative COVID-19 Clin Com See Note 10/07/21 10/07/21 10/07/21 17:37 20:15 22:56 MCV MCH MCHC RDW Plt Count MPV Immature Gran % (Auto) Neut % (Auto) Lymph % (Auto) Atkinson % (Auto) Eos % (Auto) Baso % (Auto) Lymph # (Auto) Atkinson # (Auto) Eos # (Auto) Baso # (Auto) Abs Immat Gran (auto) Absolute Neuts (auto) Absolute Nucleated RBC Nucleated RBC % (auto) ESR Anion Gap Estim Creat Clear Calc Estimated GFR POC Glucose 336 H 352 H* 390 H* Random Glucose Lactic Acid Calcium Magnesium Total Bilirubin Direct Bilirubin AST ALT Alkaline Phosphatase C-Reactive Protein B-Natriuretic Peptide Total Protein Albumin Urine Color Urine Appearance Urine pH Ur Specific [place] Urine Protein Urine Glucose (UA) Urine Ketones Urine Blood Urine Nitrite Ur Leukocyte Esterase Urine RBC Urine WBC Ur Squamous Epith Cells Urine Bacteria Urine Mucus COVID-19 (REMY) COVID-19 Clin Com 10/08/21 10/08/21 10/08/21 05:14 05:14 07:46 MCV 100.3 H MCH 35.1 H MCHC 35.0 RDW 12.5 Plt Count 143 L MPV 11.8 Immature Gran % (Auto) 0.2 Neut % (Auto) 73.3 H Lymph % (Auto) 14.6 L Atkinson % (Auto) 10.5 Eos % (Auto) 1.2 Baso % (Auto) 0.2 Lymph # (Auto) 1.4 Atkinson # (Auto) 1.0 Eos # (Auto) 0.1 Baso # (Auto) 0.0 Abs Immat Gran (auto) 0.02 Absolute Neuts (auto) 7.0 Absolute Nucleated RBC 0.000 Nucleated RBC % (auto) 0.0 ESR Anion Gap 16 Estim Creat Clear Calc 41.6 Estimated GFR 39 POC Glucose 263 H Random Glucose 258 H Lactic Acid Calcium 8.6 D Magnesium Total Bilirubin Direct Bilirubin AST ALT Alkaline Phosphatase C-Reactive Protein B-Natriuretic Peptide Total Protein Albumin Urine Color Urine Appearance Urine pH Ur Specific [place] Urine Protein Urine Glucose (UA) Urine Ketones Urine Blood Urine Nitrite Ur Leukocyte Esterase Urine RBC Urine WBC Ur Squamous Epith Cells Urine Bacteria Urine Mucus COVID-19 (REMY) COVID-19 Conjecta Com 10/08/21 11:42 MCV MCH MCHC RDW Plt Count MPV Immature Gran % (Auto) Neut % (Auto) Lymph % (Auto) Atkinson % (Auto) Eos % (Auto) Baso % (Auto) Lymph # (Auto) Atkinson # (Auto) Eos # (Auto) Baso # (Auto) Abs Immat Gran (auto) Absolute Neuts (auto) Absolute Nucleated RBC Nucleated RBC % (auto) ESR Anion Gap Estim Creat Clear Calc Estimated GFR POC Glucose 258 H Random Glucose Lactic Acid Calcium Magnesium Total Bilirubin Direct Bilirubin AST ALT Alkaline Phosphatase C-Reactive Protein B-Natriuretic Peptide Total Protein Albumin Urine Color Urine Appearance Urine pH Ur Specific [place] Urine Protein Urine Glucose (UA) Urine Ketones Urine Blood Urine Nitrite Ur Leukocyte Esterase Urine RBC Urine WBC Ur Squamous Epith Cells Urine Bacteria Urine Mucus COVID-19 (REMY) COVID-19 Conjecta Com Procedures Date of Service Date of Service: 10/08/21 Progress Note: A&P Assessment and plan (1) Wound of right foot: Status: Acute (2) Cellulitis: Status: Acute (3) Diabetes mellitus: Status: Acute Assessment and Plan: 76-year-old male with mild dementia and diabetes mellitus with peripheral neuropathy, presenting with new wounds of the right foot, etiology unclear. There is new mild slightly dusky and erythematous discoloration of the left 2nd and 3rd toes this morning. Loose skin from ruptured bulla right great toe excised at bedside this morning using a Betadine prep, forceps and scissors. Dry sterile dressing applied. Will begin daily Silvadene dressings. Continue antibiotic coverage with Zosyn and vancomycin. Fall Risk Details Current Medications: Current Medications Acetaminophen (Acetaminophen 325 Mg Tablet) 650 mg PO Q6H PRN PRN Reason: Pain, Mild (Pain Scale 1-3) Apixaban (Apixaban 5 Mg Tablet) 5 mg PO BID [facility] Last Admin: 10/08/21 08:13 Dose: 5 mg Documented by: Artificial Tears (Artificial Tears 15 Ml Drops) 1 drop EYE-BOTH Q4H PRN PRN Reason: Dry Eyes Atorvastatin Calcium (Atorvastatin Calcium 40 Mg Tablet) 40 mg PO BEDTIME [facility] Last Admin: 10/07/21 20:22 Dose: 40 mg Documented by: Dextrose (Dextrose 50 % 25 Gm/50 Ml Vial) 25 gm IVPUSH Q15M PRN; Protocol PRN Reason: per Hypoglycemia Standing Ord. Diphenhydramine HCl (Diphenhydramine Hcl 25 Mg Tablet) 12.5 mg PO BEDTIME PRN PRN Reason: Insomnia Docusate Sodium (Docusate Sodium 100 Mg Capsule) 100 mg PO DAILY PRN PRN Reason: Constipation Donepezil HCl (Donepezil Hcl 10 Mg Tablet) 10 mg PO BEDTIME [facility] Last Admin: 10/07/21 20:22 Dose: 10 mg Documented by: Escitalopram Oxalate (Escitalopram Oxalate 5 Mg Tablet) 5 mg PO DAILY [facility] Last Admin: 10/08/21 08:13 Dose: 5 mg Documented by: Glucose (Glucose Gel 15 Gm Gel..Gram.) 15 gm PO Q15M PRN; Protocol PRN Reason: per Hypoglycemia Standing Ord. Piperacillin Sod/Tazobactam (Sod 2.25 gm/ Sodium Chloride) 50 mls @ 100 mls/hr IV Q6H [facility] Last Infusion: 10/08/21 10:54 Dose: Infused Documented by: Vancomycin HCl 1,000 mg/ (Sodium Chloride) 270 mls @ 270 mls/hr IV Q24H [facility] Last Infusion: 10/08/21 09:47 Dose: Infused Documented by: Insulin Glargine (Insulin Glargine,Hum.Rec.Anlog 100 Unit/Ml 10 Ml Vial) 30 unit SUBCUT BEDTIME [facility] Last Admin: 10/07/21 20:23 Dose: 30 unit Documented by: Insulin Human Lispro (Insulin Lispro 100 Unit/Ml 3 Ml Vial) 0 unit SUBCUT QIDACHS [facility]; Protocol Last Admin: 10/08/21 12:03 Dose: 6 unit Documented by: Magnesium Oxide (Magnesium Oxide 400 Mg Tablet) 200 mg PO DAILY [facility] Last Admin: 10/08/21 08:12 Dose: 200 mg Documented by: Memantine (Memantine Hcl 10 Mg Tablet) 10 mg PO BID [facility] Last Admin: 10/08/21 08:13 Dose: 10 mg Documented by: Metoprolol Tartrate (Metoprolol Tartrate 100 Mg Tablet) 100 mg PO BID [facility]; Protocol Last Admin: 10/08/21 08:13 Dose: 100 mg Documented by: Multivitamins/Vitamin C (Multivitamin Tablet) 1 tab PO DAILY [facility] Last Admin: 10/08/21 08:13 Dose: 1 tab Documented by: Omeprazole (Omeprazole 20 Mg Capsule.Dr) 20 mg PO DAILY [facility] Last Admin: 10/08/21 08:13 Dose: 20 mg Documented by: Ondansetron HCl (Ondansetron Hcl 4 Mg/2 Ml Vial) 4 mg IVPUSH Q8H PRN PRN Reason: Nausea and Vomiting Pharmacy Consult (Consult Rx Perform Med Rec) 1 each MISCELLANE ONCE PRN PRN Reason: Consult order Pharmacy Consult (Consult Rx Vancomycin Dosing) 1 each MISCELLANE DAILY PRN PRN Reason: Consult order Silver Sulfadiazine (Silver Sulfadiazine 1 % Cream 20 Gm Tube) 1 appl TOPICAL DAILY [facility] Last Admin: 10/08/21 11:56 Dose: Not Given Documented by: Sodium Chloride (0.9 % Sodium Chloride Flush 3 Ml Syringe) 3 ml IVFLUSH QSHIFT [facility] Last Admin: 10/08/21 08:12 Dose: 3 ml Documented by: Time Spent With Patient Time: Total time spent is greater than 50% in coordination of care (as documented) at patient's floor/unit and/or counseling patient: Time with patient: less than 15 minutes Quality Stroke Does the patient have a stroke diagnosis?: No VTE Prior VTE?: No VTE Risk Level:: Medical - moderate - high VTE Device Contraindication: Treatment Not Indicated VTE Drug Contraindication: N/A - Med Ordered
[2021-10-08 16:00] VITALS: BP 172/99; PULSE 72; RESP 17; TEMP 36.2; O2SAT 95
[2021-10-08 16:46] LABS: Glucose, Whole Blood 236 mg/dL (60-115)
[2021-10-08 20:38] LABS: Glucose, Whole Blood 262 mg/dL (60-115)
[2021-10-08] MEDS: Insulin Glargine,Hum.rec.anlog 100 UNIT/ML 10 ML VIAL 30 UNIT SUBCUT (21:39)
[2021-10-08 21:41] VITALS: BP 155/84; PULSE 84
[2021-10-08] MEDS: Atorvastatin Calcium 40 MG TABLET PO (21:41)
[2021-10-08] MEDS: Donepezil HCl 10 MG TABLET PO (21:41)
[2021-10-09] VITALS: BP 161/79; PULSE 76; RESP 17; TEMP 36; O2SAT 97
[2021-10-09] MEDS: 0.9 % Sodium Chloride Flush 3 ML SYRINGE IVFLUSH ×4 (00:04→21:48)
[2021-10-09] MEDS: Piperacillin Sodium/Tazobactam 2.25 GM in 0.9 % Sodium Chloride 50 ML IV ×4 (05:21→21:46)
--- NOTE | 2021-10-09 06:06 | PC.NURSE ---
Patients left foot dressing saturated with serosanguenous drainage this morning. Dressing orders call for Silvadine which is unavailable currently. Silvadine also due at 0900, due to this, only outer dressing and bulky gauze were removed and interior gauze left in place. Replaced outer gauze and darling wrap to keep foot dry. Will pass onto day shift to complete dressing change properly.
[2021-10-09] MEDS: vancomycin HCL 1,000 MG in 0.9 % Sodium Chloride 250 ML 270 MG IV (06:38)
[2021-10-09 07:12] LABS: Hematocrit 39.5 % (42.0-52.0); Hemoglobin 13.7 g/dl (14.0-18.0); Mean Corpuscular HGB Conc 34.7 g/dl (31.0-36.0); Mean Corpuscular Hemoglobin 35.1 pg (27.0-33.0); Mean Corpuscular Volume 101.3 fL (80.0-98.0); Mean Platelet Volume 11.5 fL (9.4-12.4); Platelet Count 149 X10*3/uL (160-400); Red Cell Distribution Width 12.6 % (11.0-16.0); White Blood Count 8.6 X10*3/uL (4.8-10.8)
[2021-10-09 07:35] LABS: Anion Gap 15 (12-20); Blood Urea Nitrogen 24 mg/dL (9-16); Calcium 9.1 mg/dL (8.4-10.2); Carbon Dioxide 27 mmol/L (22-29); Chloride 100 mmol/L (96-108); Creatinine Clr Calc Pharmacy 46.5; Estimated Glomerular Filt Rate 44; Glucose Fasting 214 mg/dL (60-99); Sodium 137 mmol/L (135-145)
[2021-10-09 08:00] VITALS: BP 170/89; PULSE 83; RESP 18; TEMP 36; O2SAT 93
[2021-10-09] MEDS: Insulin Lispro 100 UNIT/ML 3 ML VIAL SUBCUT ×7 (08:03→21:47)
[2021-10-09] MEDS: Magnesium Oxide 400 MG TABLET 200 MG PO (08:06)
[2021-10-09 08:07] LABS: Glucose, Whole Blood 236 mg/dL (60-115)
[2021-10-09] MEDS: Multivitamin TABLET 1 TAB PO (08:07)
[2021-10-09] MEDS: Omeprazole 20 MG CAPSULE.DR PO (08:08)
[2021-10-09] MEDS: Escitalopram Oxalate 5 MG TABLET PO (08:08)
[2021-10-09] MEDS: Metoprolol Tartrate 100 MG TABLET PO ×2 (08:08→21:47)
[2021-10-09] MEDS: Apixaban 5 MG TABLET PO ×2 (08:08→21:46)
[2021-10-09] MEDS: Memantine HCl 10 MG TABLET PO ×2 (08:08→21:47)
[2021-10-09] MEDS: Silver Sulfadiazine 1 % Cream 20 GM TUBE 1 APPL TOPICAL (08:58)
--- NOTE | 2021-10-09 09:39 | HE.PHANOTE ---
Vancomycin consult ?Patient had a trough due for 0600 with the Vancomycin due at 0700. The Vanco was given early at 0638 and the trough was drawn during the infusion at 0646. The trough came back at 18 due to it being drawn during the infusion, which does not reflect a true trough. A random will be drawn 1800 to determine next step. Vickie Puentes, LeynD
--- NOTE | 2021-10-09 10:24 | P.PNIM_ITS ---
Subjective Subjective Date of Service: 10/09/21 Interval History: cc: red foot interval history: no new complaints Cardiovascular Cardiovascular: Reports no additional cardiovascular complaints Respiratory Respiratory: Reports no additional respiratory complaints Physical Exam Vital Signs: Vital Signs: Last Vital Signs Temp 96.8 F 10/09/21 08:00 Pulse 83 10/09/21 08:00 Resp 18 10/09/21 08:00 BP 170/89 H 10/09/21 08:00 Pulse Ox 93 10/09/21 08:00 Body Mass Index 28.7 General: AO X 3, no acute distress Resp: CTA bilateral, no accessory muscles used CVS: S1,S2,RRR GI: soft, non tender, non distended Neuro: motor grossly intact, alert Psych: appropriate affect, appropriate insight Extrem Other:?New blistering of right 5th toe and mild discoloration left 2nd and 3rd toes, otherwise stable findings, bullae right 1st through 4th toes with rupture of bulla right great toe, underlying dermal tissue appears clean and healthy, no proximal progression of process Objective Data Active Medications Acetaminophen (Acetaminophen 325 Mg Tablet) 650 mg PO Q6H PRN PRN Reason: Pain, Mild (Pain Scale 1-3) Apixaban (Apixaban 5 Mg Tablet) 5 mg PO BID [facility] Last Admin: 10/09/21 08:08 Dose: 5 mg Documented by: MARIAJOSE Artificial Tears (Artificial Tears 15 Ml Drops) 1 drop EYE-BOTH Q4H PRN PRN Reason: Dry Eyes Atorvastatin Calcium (Atorvastatin Calcium 40 Mg Tablet) 40 mg PO BEDTIME [facility] Last Admin: 10/08/21 21:41 Dose: 40 mg Documented by: ANNABELLA Dextrose (Dextrose 50 % 25 Gm/50 Ml Vial) 25 gm IVPUSH Q15M PRN; Protocol PRN Reason: per Hypoglycemia Standing Ord. Diphenhydramine HCl (Diphenhydramine Hcl 25 Mg Tablet) 12.5 mg PO BEDTIME PRN PRN Reason: Insomnia Docusate Sodium (Docusate Sodium 100 Mg Capsule) 100 mg PO DAILY PRN PRN Reason: Constipation Donepezil HCl (Donepezil Hcl 10 Mg Tablet) 10 mg PO BEDTIME [facility] Last Admin: 10/08/21 21:41 Dose: 10 mg Documented by: ANNABELLA Escitalopram Oxalate (Escitalopram Oxalate 5 Mg Tablet) 5 mg PO DAILY [facility] Last Admin: 10/09/21 08:08 Dose: 5 mg Documented by: MARIAJOSE Glucose (Glucose Gel 15 Gm Gel..Gram.) 15 gm PO Q15M PRN; Protocol PRN Reason: per Hypoglycemia Standing Ord. Piperacillin Sod/Tazobactam (Sod 2.25 gm/ Sodium Chloride) 50 mls @ 100 mls/hr IV Q6H [facility] Last Infusion: 10/09/21 09:31 Dose: 0 mls/hr Documented by: MARIAJOSE Vancomycin HCl 1,000 mg/ (Sodium Chloride) 270 mls @ 270 mls/hr IV Q24H [facility] Last Infusion: 10/09/21 08:14 Dose: 0 mls/hr Documented by: MARIAJOSE Insulin Glargine (Insulin Glargine,Hum.Rec.Anlog 100 Unit/Ml 10 Ml Vial) 30 unit SUBCUT BEDTIME [facility] Last Admin: 10/08/21 21:39 Dose: 30 unit Documented by: ANNABELLA Insulin Human Lispro (Insulin Lispro 100 Unit/Ml 3 Ml Vial) 0 unit SUBCUT QIDACHS [facility]; Protocol Last Admin: 10/09/21 08:03 Dose: 4 unit Documented by: MARIAJOSE Magnesium Oxide (Magnesium Oxide 400 Mg Tablet) 200 mg PO DAILY [facility] Last Admin: 10/09/21 08:06 Dose: 200 mg Documented by: MARIAJOSE Comments: Memantine (Memantine Hcl 10 Mg Tablet) 10 mg PO BID [facility] Last Admin: 10/09/21 08:08 Dose: 10 mg Documented by: MARIAJOSE Metoprolol Tartrate (Metoprolol Tartrate 100 Mg Tablet) 100 mg PO BID [facility]; Protocol Last Admin: 10/09/21 08:08 Dose: 100 mg Documented by: MARIAJOSE Multivitamins/Vitamin C (Multivitamin Tablet) 1 tab PO DAILY [facility] Last Admin: 10/09/21 08:07 Dose: 1 tab Documented by: MARIAJOSE Omeprazole (Omeprazole 20 Mg Capsule.Dr) 20 mg PO DAILY [facility] Last Admin: 10/09/21 08:08 Dose: 20 mg Documented by: MARIAJOSE Ondansetron HCl (Ondansetron Hcl 4 Mg/2 Ml Vial) 4 mg IVPUSH Q8H PRN PRN Reason: Nausea and Vomiting Pharmacy Consult (Consult Rx Perform Med Rec) 1 each MISCELLANE ONCE PRN PRN Reason: Consult order Pharmacy Consult (Consult Rx Vancomycin Dosing) 1 each MISCELLANE DAILY PRN PRN Reason: Consult order Silver Sulfadiazine (Silver Sulfadiazine 1 % Cream 20 Gm Tube) 1 appl TOPICAL DAILY [facility] Last Admin: 10/09/21 08:58 Dose: 1 appl Documented by: MARIAJOSE Sodium Chloride (0.9 % Sodium Chloride Flush 3 Ml Syringe) 3 ml IVFLUSH QSHIFT [facility] Last Admin: 10/09/21 08:03 Dose: 3 ml Documented by: MARIAJOSE Labs CBC & Chem 7: 10/09/21 06:46 10/09/21 06:46 Labs: Laboratory Results - last 24 hr 10/08/21 10/08/21 10/08/21 11:42 16:31 20:30 MCV MCH MCHC RDW Plt Count MPV Absolute Nucleated RBC Nucleated RBC % (auto) Anion Gap Estim Creat Clear Calc Estimated GFR POC Glucose 258 H 236 H 262 H Fasting Glucose Calcium Vancomycin Trough 10/09/21 10/09/21 10/09/21 06:46 06:46 06:46 MCV 101.3 H MCH 35.1 H MCHC 34.7 RDW 12.6 Plt Count 149 L MPV 11.5 Absolute Nucleated RBC 0.000 Nucleated RBC % (auto) 0.0 Anion Gap 15 Estim Creat Clear Calc 46.5 Estimated GFR 44 POC Glucose Fasting Glucose 214 H Calcium 9.1 Vancomycin Trough 18.0 10/09/21 07:47 MCV MCH MCHC RDW Plt Count MPV Absolute Nucleated RBC Nucleated RBC % (auto) Anion Gap Estim Creat Clear Calc Estimated GFR POC Glucose 236 H Fasting Glucose Calcium Vancomycin Trough Microbiology Microbiology Results: Microbiology 10/07/21 13:27 Blood Culture - Preliminary Blood - Venous No growth after 24 hours. 10/07/21 12:49 Blood Culture - Preliminary Blood - Venous No growth after 24 hours. Assessment and Plan (1) Wound of right foot: Status: Acute (2) JAMES (acute kidney injury): Status: Acute (3) Diabetes mellitus: Status: Acute Assessment and Plan: 76-year-old male with a history of dementia, atrial fibrillation on Eliquis diabetes, HFpEF, HTN, HLD, recent nstemi presented to the ED with right foot wound found to have JAMES Right foot wound denies trauma, exposure to heat/cold but given decreased sensation and dementia either is a possibility possible superimposed cellulitis, continue empiric abx with vanc and zosyn, vanc level of 18 not true trough, to be repeated surgical appreciated, s/p bedside excision of ruptured bulla , continue silvadene dressing JAMES holding allopurinol, Bumex, irbesartan Monitor renal function improving, close to baseline, probably around 1.5 Hyperkalemia Likely related to JAMES and ARB resolved HFpEF no evidence of volume overload at this time Hold Bumex Follow volume status closely HTN Blood pressure controlled Hold irbesartan, Bumex for JAMES Continue metoprolol elevated, will add amlodipine DM with hyperglycemia hold glimeperide continue lantus - increased to 35 units, adding preprandial lispro 5 units plus correction POCs permanent Atrial fibrillation Heart rate controlled Continue metoprolol, anticoagulation with Eliquis dementia continue namenda, aricept HLD continue atorvastatin Mood Continue Lexapro GERD Continue omeprazole DVT prophylaxis-Eliquis code status-code Quality Stroke Does the patient have a stroke diagnosis?: No VTE Prior VTE?: No VTE Risk Level:: Medical - moderate - high VTE Device Contraindication: Treatment Not Indicated VTE Drug Contraindication: N/A - Med Ordered
[2021-10-09 11:34] LABS: Glucose, Whole Blood 240 mg/dL (60-115)
--- NOTE | 2021-10-09 12:22 | MHC.CM.PN ---
Addendum entered by Jenise Felipe 10/09/21 15:23: PATIENT DOES HAVE A NON-WHEELED WALKER IN THE HOME Original Note: WITH HELP FROM SUPPORTABILITY ENGINEER, CASE MANAGEMENT MET WITH PATIENT. HE LIVES WITH HIS SON AND [id number] BOTH ARE HCP AGENTS (ON FILE AND VERIFIED) NO DME OR VNA SERVICES IN THE HOME. NO ELDER SERVICES. PLAN IS HOME SUNDAY. CASE MANAGEMENT FOLLOWING FOR ANY DISCHARGE NEEDS. FAMILY WILL TRANSPORT AT TIME OF DC. IMM 10/09 IN CHART
--- NOTE | 2021-10-09 13:21 | PM.PNGS ---
Subjective Subjective Date of Service: 10/09/21 Interval history: No complaints Physical Exam Vital Signs: Vital Signs: Last Vital Signs Temp 96.8 F 10/09/21 08:00 Pulse 83 10/09/21 08:00 Resp 18 10/09/21 08:00 BP 170/89 H 10/09/21 08:00 Pulse Ox 93 10/09/21 08:00 Body Mass Index 28.7 Extrem: Other: Right foot-open areas right great toe and plantar aspect distal foot are clean and healthy appearing with some loose skin present. Hemorrhagic discoloration noted along proximal margin of below right 4th toe Objective Data Active Medications Acetaminophen (Acetaminophen 325 Mg Tablet) 650 mg PO Q6H PRN PRN Reason: Pain, Mild (Pain Scale 1-3) Amlodipine Besylate (Amlodipine Besylate 5 Mg Tablet) 5 mg PO DAILY [facility]; Protocol Apixaban (Apixaban 5 Mg Tablet) 5 mg PO BID [facility] Last Admin: 10/09/21 08:08 Dose: 5 mg Documented by: MARIAJOES Artificial Tears (Artificial Tears 15 Ml Drops) 1 drop EYE-BOTH Q4H PRN PRN Reason: Dry Eyes Atorvastatin Calcium (Atorvastatin Calcium 40 Mg Tablet) 40 mg PO BEDTIME [facility] Last Admin: 10/08/21 21:41 Dose: 40 mg Documented by: ANNABELLA Dextrose (Dextrose 50 % 25 Gm/50 Ml Vial) 25 gm IVPUSH Q15M PRN; Protocol PRN Reason: per Hypoglycemia Standing Ord. Diphenhydramine HCl (Diphenhydramine Hcl 25 Mg Tablet) 12.5 mg PO BEDTIME PRN PRN Reason: Insomnia Docusate Sodium (Docusate Sodium 100 Mg Capsule) 100 mg PO DAILY PRN PRN Reason: Constipation Donepezil HCl (Donepezil Hcl 10 Mg Tablet) 10 mg PO BEDTIME [facility] Last Admin: 10/08/21 21:41 Dose: 10 mg Documented by: ANNABELLA Escitalopram Oxalate (Escitalopram Oxalate 5 Mg Tablet) 5 mg PO DAILY [facility] Last Admin: 10/09/21 08:08 Dose: 5 mg Documented by: MARIAJOSE Glucose (Glucose Gel 15 Gm Gel..Gram.) 15 gm PO Q15M PRN; Protocol PRN Reason: per Hypoglycemia Standing Ord. Piperacillin Sod/Tazobactam (Sod 2.25 gm/ Sodium Chloride) 50 mls @ 100 mls/hr IV Q6H [facility] Last Infusion: 10/09/21 09:31 Dose: 0 mls/hr Documented by: MARIAJOSE Vancomycin HCl 1,000 mg/ (Sodium Chloride) 270 mls @ 270 mls/hr IV Q24H [facility] Last Infusion: 10/09/21 08:14 Dose: 0 mls/hr Documented by: MARIAJOSE Insulin Glargine (Insulin Glargine,Hum.Rec.Anlog 100 Unit/Ml 10 Ml Vial) 35 unit SUBCUT BID [facility] Insulin Human Lispro (Insulin Lispro 100 Unit/Ml 3 Ml Vial) 0 unit SUBCUT QIDACHS [facility]; Protocol Last Admin: 10/09/21 11:46 Dose: 4 unit Documented by: MARIAJOSE Insulin Human Lispro (Insulin Lispro 100 Unit/Ml 3 Ml Vial) 5 unit SUBCUT QIDACHS [facility] Last Admin: 10/09/21 11:46 Dose: 5 unit Documented by: MARIAJOSE Magnesium Oxide (Magnesium Oxide 400 Mg Tablet) 200 mg PO DAILY [facility] Last Admin: 10/09/21 08:06 Dose: 200 mg Documented by: MARIAJOSE Comments: Memantine (Memantine Hcl 10 Mg Tablet) 10 mg PO BID [facility] Last Admin: 10/09/21 08:08 Dose: 10 mg Documented by: AMRIAJOSE Metoprolol Tartrate (Metoprolol Tartrate 100 Mg Tablet) 100 mg PO BID [facility]; Protocol Last Admin: 10/09/21 08:08 Dose: 100 mg Documented by: MARIAJOSE Multivitamins/Vitamin C (Multivitamin Tablet) 1 tab PO DAILY [facility] Last Admin: 10/09/21 08:07 Dose: 1 tab Documented by: MARIAJOSE Omeprazole (Omeprazole 20 Mg Capsule.Dr) 20 mg PO DAILY [facility] Last Admin: 10/09/21 08:08 Dose: 20 mg Documented by: MARIAJOSE Ondansetron HCl (Ondansetron Hcl 4 Mg/2 Ml Vial) 4 mg IVPUSH Q8H PRN PRN Reason: Nausea and Vomiting Pharmacy Consult (Consult Rx Perform Med Rec) 1 each MISCELLANE ONCE PRN PRN Reason: Consult order Pharmacy Consult (Consult Rx Vancomycin Dosing) 1 each MISCELLANE DAILY PRN PRN Reason: Consult order Silver Sulfadiazine (Silver Sulfadiazine 1 % Cream 20 Gm Tube) 1 appl TOPICAL DAILY [facility] Last Admin: 10/09/21 08:58 Dose: 1 appl Documented by: MARIAJOSE Sodium Chloride (0.9 % Sodium Chloride Flush 3 Ml Syringe) 3 ml IVFLUSH QSHIFT [facility] Last Admin: 10/09/21 08:03 Dose: 3 ml Documented by: MARIAJOSE Labs CBC & Chem 7: 10/09/21 06:46 10/09/21 06:46 Labs: Laboratory Results - last 24 hr 10/08/21 10/08/21 10/09/21 16:31 20:30 06:46 MCV MCH MCHC RDW Plt Count MPV Absolute Nucleated RBC Nucleated RBC % (auto) Anion Gap Estim Creat Clear Calc Estimated GFR POC Glucose 236 H 262 H Fasting Glucose Calcium Vancomycin Trough 18.0 10/09/21 10/09/21 10/09/21 06:46 06:46 07:47 MCV 101.3 H MCH 35.1 H MCHC 34.7 RDW 12.6 Plt Count 149 L MPV 11.5 Absolute Nucleated RBC 0.000 Nucleated RBC % (auto) 0.0 Anion Gap 15 Estim Creat Clear Calc 46.5 Estimated GFR 44 POC Glucose 236 H Fasting Glucose 214 H Calcium 9.1 Vancomycin Trough 10/09/21 11:14 MCV MCH MCHC RDW Plt Count MPV Absolute Nucleated RBC Nucleated RBC % (auto) Anion Gap Estim Creat Clear Calc Estimated GFR POC Glucose 240 H Fasting Glucose Calcium Vancomycin Trough Microbiology Microbiology Results: Microbiology 10/07/21 13:27 Blood Culture - Preliminary Blood - Venous No growth after 24 hours. 10/07/21 12:49 Blood Culture - Preliminary Blood - Venous No growth after 24 hours. Procedures Date of Service Date of Service: 10/09/21 Progress Note: A&P Assessment and plan (1) Wound of right foot: Status: Acute (2) Cellulitis: Status: Acute Assessment and Plan: Wound of distal right foot and toes, etiology uncertain, possible burn or cold exposure. The loose skin along edges of ruptured/open bullae right great toe and distal foot debrided. Fully of 2nd 4th and 5th toes opened and partially debrided at bedside, Betadine prep, sharp excision with scissors. Silvadene and bulky dry sterile dressing applied. On vancomycin, Zosyn Fall Risk Details Current Medications: Current Medications Acetaminophen (Acetaminophen 325 Mg Tablet) 650 mg PO Q6H PRN PRN Reason: Pain, Mild (Pain Scale 1-3) Amlodipine Besylate (Amlodipine Besylate 5 Mg Tablet) 5 mg PO DAILY [facility]; Protocol Apixaban (Apixaban 5 Mg Tablet) 5 mg PO BID [facility] Last Admin: 10/09/21 08:08 Dose: 5 mg Documented by: Artificial Tears (Artificial Tears 15 Ml Drops) 1 drop EYE-BOTH Q4H PRN PRN Reason: Dry Eyes Atorvastatin Calcium (Atorvastatin Calcium 40 Mg Tablet) 40 mg PO BEDTIME [facility] Last Admin: 10/08/21 21:41 Dose: 40 mg Documented by: Dextrose (Dextrose 50 % 25 Gm/50 Ml Vial) 25 gm IVPUSH Q15M PRN; Protocol PRN Reason: per Hypoglycemia Standing Ord. Diphenhydramine HCl (Diphenhydramine Hcl 25 Mg Tablet) 12.5 mg PO BEDTIME PRN PRN Reason: Insomnia Docusate Sodium (Docusate Sodium 100 Mg Capsule) 100 mg PO DAILY PRN PRN Reason: Constipation Donepezil HCl (Donepezil Hcl 10 Mg Tablet) 10 mg PO BEDTIME [facility] Last Admin: 10/08/21 21:41 Dose: 10 mg Documented by: Escitalopram Oxalate (Escitalopram Oxalate 5 Mg Tablet) 5 mg PO DAILY [facility] Last Admin: 10/09/21 08:08 Dose: 5 mg Documented by: Glucose (Glucose Gel 15 Gm Gel..Gram.) 15 gm PO Q15M PRN; Protocol PRN Reason: per Hypoglycemia Standing Ord. Piperacillin Sod/Tazobactam (Sod 2.25 gm/ Sodium Chloride) 50 mls @ 100 mls/hr IV Q6H [facility] Last Infusion: 10/09/21 09:31 Dose: Infused Documented by: Vancomycin HCl 1,000 mg/ (Sodium Chloride) 270 mls @ 270 mls/hr IV Q24H [facility] Last Infusion: 10/09/21 08:14 Dose: Infused Documented by: Insulin Glargine (Insulin Glargine,Hum.Rec.Anlog 100 Unit/Ml 10 Ml Vial) 35 unit SUBCUT BID [facility] Insulin Human Lispro (Insulin Lispro 100 Unit/Ml 3 Ml Vial) 0 unit SUBCUT QIDACHS [facility]; Protocol Last Admin: 10/09/21 11:46 Dose: 4 unit Documented by: Insulin Human Lispro (Insulin Lispro 100 Unit/Ml 3 Ml Vial) 5 unit SUBCUT QIDACHS [facility] Last Admin: 10/09/21 11:46 Dose: 5 unit Documented by: Magnesium Oxide (Magnesium Oxide 400 Mg Tablet) 200 mg PO DAILY [facility] Last Admin: 10/09/21 08:06 Dose: 200 mg Documented by: Memantine (Memantine Hcl 10 Mg Tablet) 10 mg PO BID [facility] Last Admin: 10/09/21 08:08 Dose: 10 mg Documented by: Metoprolol Tartrate (Metoprolol Tartrate 100 Mg Tablet) 100 mg PO BID [facility]; Protocol Last Admin: 10/09/21 08:08 Dose: 100 mg Documented by: Multivitamins/Vitamin C (Multivitamin Tablet) 1 tab PO DAILY [facility] Last Admin: 10/09/21 08:07 Dose: 1 tab Documented by: Omeprazole (Omeprazole 20 Mg Capsule.Dr) 20 mg PO DAILY [facility] Last Admin: 10/09/21 08:08 Dose: 20 mg Documented by: Ondansetron HCl (Ondansetron Hcl 4 Mg/2 Ml Vial) 4 mg IVPUSH Q8H PRN PRN Reason: Nausea and Vomiting Pharmacy Consult (Consult Rx Perform Med Rec) 1 each MISCELLANE ONCE PRN PRN Reason: Consult order Pharmacy Consult (Consult Rx Vancomycin Dosing) 1 each MISCELLANE DAILY PRN PRN Reason: Consult order Silver Sulfadiazine (Silver Sulfadiazine 1 % Cream 20 Gm Tube) 1 appl TOPICAL DAILY [facility] Last Admin: 10/09/21 08:58 Dose: 1 appl Documented by: Sodium Chloride (0.9 % Sodium Chloride Flush 3 Ml Syringe) 3 ml IVFLUSH QSHIFT [facility] Last Admin: 10/09/21 08:03 Dose: 3 ml Documented by: Time Spent With Patient Time: Total time spent is greater than 50% in coordination of care (as documented) at patient's floor/unit and/or counseling patient: Time with patient: 15 - 24 minutes Quality Stroke Does the patient have a stroke diagnosis?: No VTE Prior VTE?: No VTE Risk Level:: Medical - moderate - high VTE Device Contraindication: Treatment Not Indicated VTE Drug Contraindication: N/A - Med Ordered
--- NOTE | 2021-10-09 15:18 | MHC.CM.PN ---
SON/HCP BELTRAN VISITED TODAY. 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 LABORER RAGS EXPLAINED THAT PATIENT ANSWERED ALL QUESTIONS APPROPRIATELY WITH THE ASSIST OF FABRICATION AND ASSEMBLY SUPERVISOR PATIENT'S [id number] (2ND HCP) TELLS THIS PROFESSOR OF ENVIRONMENTAL SCIENCE THAT STAFF SHOULD NOT TALK TO A PATIENT WITH DEMENTIA WITHOUT FAMILY PRESENT. THIS PROFESSOR OF ENVIRONMENTAL SCIENCE EXPLAINED THAT CASE MANAGEMENT AND ASSISTANT [employer] FOUND THE PATIENT TO BE ABLE OT ANSWER ALL QUESTIONS APPROPRIATELY AND IF THERE WERE CONCERNS, A CALL WOULD BE PLACED TO FAMILY/HCP. WITH PERMISSION FROM PATIENT, NEW IMM DISCUSSED AND SIGNED BY SON. SON ALSO AWARE THAT PLAN IS LIKELY FOR SUNDAY RETURN TO HOME SON STATES THAT HE WILL PROVIDE TRANSPORTATION. COPY NOW IN CHART ALONG WITH ORIGINAL.
[2021-10-09 16:00] VITALS: BP 186/75; PULSE 78; RESP 17; TEMP 36.1; O2SAT 96
[2021-10-09 16:38] LABS: Glucose, Whole Blood 335 mg/dL (60-115)
[2021-10-09 18:36] LABS: Vancomycin Random 14.8 mcg/mL (15-20)
[2021-10-09 20:18] LABS: Glucose, Whole Blood 290 mg/dL (60-115)
[2021-10-09] MEDS: Atorvastatin Calcium 40 MG TABLET PO (21:46)
[2021-10-09] MEDS: Insulin Glargine,Hum.rec.anlog 100 UNIT/ML 10 ML VIAL 35 UNIT SUBCUT (21:46)
[2021-10-09] MEDS: Donepezil HCl 10 MG TABLET PO (21:46)
[2021-10-09 21:47] VITALS: BP 186/75; PULSE 78
[2021-10-10] VITALS: BP 169/97; PULSE 78; RESP 18; TEMP 36.4; O2SAT 96
[2021-10-10] MEDS: Piperacillin Sodium/Tazobactam 2.25 GM in 0.9 % Sodium Chloride 50 ML IV ×2 (03:45→09:22)
[2021-10-10] MEDS: vancomycin HCL 1,000 MG in 0.9 % Sodium Chloride 250 ML 270 MG IV (06:44)
[2021-10-10 07:03] VITALS: BP 184/83; PULSE 52; RESP 18; TEMP 36.4; O2SAT 95
[2021-10-10 07:17] LABS: Hematocrit 42.1 % (42.0-52.0); Hemoglobin 14.2 g/dl (14.0-18.0); Mean Corpuscular HGB Conc 33.7 g/dl (31.0-36.0); Mean Corpuscular Hemoglobin 34.2 pg (27.0-33.0); Mean Corpuscular Volume 101.4 fL (80.0-98.0); Mean Platelet Volume 10.9 fL (9.4-12.4); Platelet Count 147 X10*3/uL (160-400); Red Blood Count 4.15 X10*6/uL (4.60-5.80); Red Cell Distribution Width 12.7 % (11.0-16.0); White Blood Count 9.9 X10*3/uL (4.8-10.8)
[2021-10-10 07:19] LABS: Glucose, Whole Blood 181 mg/dL (60-115)
[2021-10-10 07:28] LABS: Anion Gap 11 (12-20); Blood Urea Nitrogen 19 mg/dL (9-16); Calcium 9.1 mg/dL (8.4-10.2); Carbon Dioxide 30 mmol/L (22-29); Chloride 99 mmol/L (96-108); Creatinine Clr Calc Pharmacy 46.2; Estimated Glomerular Filt Rate 44; Glucose Fasting 186 mg/dL (60-99); Potassium 4.6 mmol/L (3.3-5.1); Sodium 135 mmol/L (135-145)
[2021-10-10] MEDS: Insulin Lispro 100 UNIT/ML 3 ML VIAL SUBCUT ×4 (07:44→12:20)
[2021-10-10] MEDS: Omeprazole 20 MG CAPSULE.DR PO (07:45)
[2021-10-10] MEDS: Insulin Glargine,Hum.rec.anlog 100 UNIT/ML 10 ML VIAL 35 UNIT SUBCUT (07:46)
[2021-10-10 07:47] VITALS: BP 184/83; PULSE 52
[2021-10-10] MEDS: Magnesium Oxide 400 MG TABLET 200 MG PO (07:47)
[2021-10-10] MEDS: amLODIPine Besylate 5 MG TABLET PO (07:47)
[2021-10-10] MEDS: Multivitamin TABLET 1 TAB PO (07:47)
[2021-10-10] MEDS: Metoprolol Tartrate 100 MG TABLET PO (07:47)
[2021-10-10] MEDS: Escitalopram Oxalate 5 MG TABLET PO (07:47)
[2021-10-10] MEDS: Memantine HCl 10 MG TABLET PO (07:47)
[2021-10-10] MEDS: Apixaban 5 MG TABLET PO (07:48)
[2021-10-10] MEDS: Silver Sulfadiazine 1 % Cream 20 GM TUBE 1 APPL TOPICAL (07:49)
[2021-10-10] MEDS: 0.9 % Sodium Chloride Flush 3 ML SYRINGE IVFLUSH (07:49)
[2021-10-10 12:06] LABS: Glucose, Whole Blood 169 mg/dL (60-115)
--- NOTE | 2021-10-10 12:06 | P.PNGS_ITS ---
Subjective Subjective Date of Service: 10/10/21 Interval history: Patient reports some discomfort at the right foot; no new complaints Physical Exam Vital Signs: Vital Signs: Last Vital Signs Temp 97.5 F 10/10/21 07:03 Pulse 52 10/10/21 07:47 Resp 18 10/10/21 07:03 BP 184/83 H 10/10/21 07:47 Pulse Ox 95 10/10/21 07:03 Body Mass Index 28.7 Const: General: no acute distress Nutritional Appearance: well nourished Orientation/consciousness: patient oriented x3 Limitations: no limitations HENMT: Head: Yes normocephalic and Yes atraumatic Resp: Effort & Inspection: normal respiratory effort, no cough and not labored Skin: Lesions: lesion noted (multiple blisters of the great toe thru 5 th toe right foot; neuropathy) vesicle right dorsal foot Rashes: no rashes Trauma: other (? scald burn) Neuro: General: patient oriented x3 Extrem: Ankle/foot/toe images: 1. 2. Objective Data Active Medications Acetaminophen (Acetaminophen 325 Mg Tablet) 650 mg PO Q6H PRN PRN Reason: Pain, Mild (Pain Scale 1-3) Amlodipine Besylate (Amlodipine Besylate 5 Mg Tablet) 5 mg PO DAILY [facility]; Protocol Last Admin: 10/10/21 07:47 Dose: 5 mg Documented by: NATALIIA Apixaban (Apixaban 5 Mg Tablet) 5 mg PO BID [facility] Last Admin: 10/10/21 07:48 Dose: 5 mg Documented by: NATALIIA Artificial Tears (Artificial Tears 15 Ml Drops) 1 drop EYE-BOTH Q4H PRN PRN Reason: Dry Eyes Atorvastatin Calcium (Atorvastatin Calcium 40 Mg Tablet) 40 mg PO BEDTIME [facility] Last Admin: 10/09/21 21:46 Dose: 40 mg Documented by: YAMIL Dextrose (Dextrose 50 % 25 Gm/50 Ml Vial) 25 gm IVPUSH Q15M PRN; Protocol PRN Reason: per Hypoglycemia Standing Ord. Diphenhydramine HCl (Diphenhydramine Hcl 25 Mg Tablet) 12.5 mg PO BEDTIME PRN PRN Reason: Insomnia Docusate Sodium (Docusate Sodium 100 Mg Capsule) 100 mg PO DAILY PRN PRN Reason: Constipation Donepezil HCl (Donepezil Hcl 10 Mg Tablet) 10 mg PO BEDTIME [facility] Last Admin: 10/09/21 21:46 Dose: 10 mg Documented by: YAMIL Escitalopram Oxalate (Escitalopram Oxalate 5 Mg Tablet) 5 mg PO DAILY [facility] Last Admin: 10/10/21 07:47 Dose: 5 mg Documented by: NATALIIA Glucose (Glucose Gel 15 Gm Gel..Gram.) 15 gm PO Q15M PRN; Protocol PRN Reason: per Hypoglycemia Standing Ord. Piperacillin Sod/Tazobactam (Sod 2.25 gm/ Sodium Chloride) 50 mls @ 100 mls/hr IV Q6H [facility] Last Infusion: 10/10/21 10:20 Dose: 0 mls/hr Documented by: NATALIIA Vancomycin HCl 1,000 mg/ (Sodium Chloride) 270 mls @ 270 mls/hr IV Q24H [facility] Last Infusion: 10/10/21 08:06 Dose: 0 mls/hr Documented by: NATALIIA Insulin Glargine (Insulin Glargine,Hum.Rec.Anlog 100 Unit/Ml 10 Ml Vial) 35 unit SUBCUT BID [facility] Last Admin: 10/10/21 07:46 Dose: 35 unit Documented by: NATALIIA Insulin Human Lispro (Insulin Lispro 100 Unit/Ml 3 Ml Vial) 0 unit SUBCUT QIDACHS [facility]; Protocol Last Admin: 10/10/21 07:44 Dose: 2 unit Documented by: NATALIIA Insulin Human Lispro (Insulin Lispro 100 Unit/Ml 3 Ml Vial) 5 unit SUBCUT QIDACHS [facility] Last Admin: 10/10/21 07:44 Dose: 5 unit Documented by: NATALIIA Magnesium Oxide (Magnesium Oxide 400 Mg Tablet) 200 mg PO DAILY [facility] Last Admin: 10/10/21 07:47 Dose: 200 mg Documented by: NATALIIA Memantine (Memantine Hcl 10 Mg Tablet) 10 mg PO BID [facility] Last Admin: 10/10/21 07:47 Dose: 10 mg Documented by: NATALIIA Metoprolol Tartrate (Metoprolol Tartrate 100 Mg Tablet) 100 mg PO BID [facility]; Protocol Last Admin: 10/10/21 07:47 Dose: 100 mg Documented by: NATALIIA Multivitamins/Vitamin C (Multivitamin Tablet) 1 tab PO DAILY [facility] Last Admin: 10/10/21 07:47 Dose: 1 tab Documented by: NATALIIA Omeprazole (Omeprazole 20 Mg Capsule.Dr) 20 mg PO DAILY [facility] Last Admin: 10/10/21 07:45 Dose: 20 mg Documented by: NATALIIA Ondansetron HCl (Ondansetron Hcl 4 Mg/2 Ml Vial) 4 mg IVPUSH Q8H PRN PRN Reason: Nausea and Vomiting Pharmacy Consult (Consult Rx Perform Med Rec) 1 each MISCELLANE ONCE PRN PRN Reason: Consult order Pharmacy Consult (Consult Rx Vancomycin Dosing) 1 each MISCELLANE DAILY PRN PRN Reason: Consult order Silver Sulfadiazine (Silver Sulfadiazine 1 % Cream 20 Gm Tube) 1 appl TOPICAL DAILY [facility] Last Admin: 10/10/21 07:49 Dose: 1 appl Documented by: NATALIIA Sodium Chloride (0.9 % Sodium Chloride Flush 3 Ml Syringe) 3 ml IVFLUSH QSHIFT [facility] Last Admin: 10/10/21 07:49 Dose: 3 ml Documented by: NATALIIA Labs CBC & Chem 7: 10/10/21 07:01 10/10/21 07:01 Labs: Laboratory Results - last 24 hr 10/09/21 10/09/21 10/09/21 16:31 17:47 20:08 MCV MCH MCHC RDW Plt Count MPV Absolute Nucleated RBC Nucleated RBC % (auto) Anion Gap Estim Creat Clear Calc Estimated GFR POC Glucose 335 H 290 H Fasting Glucose Calcium Vancomycin Trough Random Vancomycin 14.8 L 10/10/21 10/10/21 10/10/21 07:01 07:01 07:01 MCV 101.4 H MCH 34.2 H MCHC 33.7 RDW 12.7 Plt Count 147 L MPV 10.9 Absolute Nucleated RBC 0.000 Nucleated RBC % (auto) 0.0 Anion Gap 11 L Estim Creat Clear Calc 46.2 Estimated GFR 44 POC Glucose Fasting Glucose 186 H Calcium 9.1 Vancomycin Trough 21.0 H Random Vancomycin 10/10/21 07:06 MCV MCH MCHC RDW Plt Count MPV Absolute Nucleated RBC Nucleated RBC % (auto) Anion Gap Estim Creat Clear Calc Estimated GFR POC Glucose 181 H Fasting Glucose Calcium Vancomycin Trough Random Vancomycin Microbiology Microbiology Results: Microbiology 10/07/21 13:27 Blood Culture - Preliminary Blood - Venous No growth after 48 hours. 10/07/21 12:49 Blood Culture - Preliminary Blood - Venous No growth after 48 hours. Procedures Date of Service Date of Service: 10/10/21 Progress Note: A&P Assessment and plan (1) Wound of right foot: Status: Acute (2) Cellulitis: Status: Acute (3) Diabetes mellitus: Status: Acute Assessment and Plan: 76-year-old male patient presenting with a blistered lesion involving multiple toes and dorsum of the right foot of unknown etiology. Findings are suggestive of a scald burn. Wounds were examined today and no further treatment required. Wounds were redressed with Silvadene cream and dry sterile dressings. Recommend: Continue daily wound care with Silvadene dressings, fluff gauze between the toes followed by Kerlix wrap. Should follow-up with wound care as an outpatient. Fall Risk Details Current Medications: Current Medications Acetaminophen (Acetaminophen 325 Mg Tablet) 650 mg PO Q6H PRN PRN Reason: Pain, Mild (Pain Scale 1-3) Amlodipine Besylate (Amlodipine Besylate 5 Mg Tablet) 5 mg PO DAILY [facility]; Protocol Last Admin: 10/10/21 07:47 Dose: 5 mg Documented by: Apixaban (Apixaban 5 Mg Tablet) 5 mg PO BID [facility] Last Admin: 10/10/21 07:48 Dose: 5 mg Documented by: Artificial Tears (Artificial Tears 15 Ml Drops) 1 drop EYE-BOTH Q4H PRN PRN Reason: Dry Eyes Atorvastatin Calcium (Atorvastatin Calcium 40 Mg Tablet) 40 mg PO BEDTIME [facility] Last Admin: 10/09/21 21:46 Dose: 40 mg Documented by: Dextrose (Dextrose 50 % 25 Gm/50 Ml Vial) 25 gm IVPUSH Q15M PRN; Protocol PRN Reason: per Hypoglycemia Standing Ord. Diphenhydramine HCl (Diphenhydramine Hcl 25 Mg Tablet) 12.5 mg PO BEDTIME PRN PRN Reason: Insomnia Docusate Sodium (Docusate Sodium 100 Mg Capsule) 100 mg PO DAILY PRN PRN Reason: Constipation Donepezil HCl (Donepezil Hcl 10 Mg Tablet) 10 mg PO BEDTIME [facility] Last Admin: 10/09/21 21:46 Dose: 10 mg Documented by: Escitalopram Oxalate (Escitalopram Oxalate 5 Mg Tablet) 5 mg PO DAILY [facility] Last Admin: 10/10/21 07:47 Dose: 5 mg Documented by: Glucose (Glucose Gel 15 Gm Gel..Gram.) 15 gm PO Q15M PRN; Protocol PRN Reason: per Hypoglycemia Standing Ord. Piperacillin Sod/Tazobactam (Sod 2.25 gm/ Sodium Chloride) 50 mls @ 100 mls/hr IV Q6H [facility] Last Infusion: 10/10/21 10:20 Dose: Infused Documented by: Vancomycin HCl 1,000 mg/ (Sodium Chloride) 270 mls @ 270 mls/hr IV Q24H [facility] Last Infusion: 10/10/21 08:06 Dose: Infused Documented by: Insulin Glargine (Insulin Glargine,Hum.Rec.Anlog 100 Unit/Ml 10 Ml Vial) 35 unit SUBCUT BID [facility] Last Admin: 10/10/21 07:46 Dose: 35 unit Documented by: Insulin Human Lispro (Insulin Lispro 100 Unit/Ml 3 Ml Vial) 0 unit SUBCUT QIDACHS [facility]; Protocol Last Admin: 10/10/21 07:44 Dose: 2 unit Documented by: Insulin Human Lispro (Insulin Lispro 100 Unit/Ml 3 Ml Vial) 5 unit SUBCUT QIDACHS [facility] Last Admin: 10/10/21 07:44 Dose: 5 unit Documented by: Magnesium Oxide (Magnesium Oxide 400 Mg Tablet) 200 mg PO DAILY [facility] Last Admin: 10/10/21 07:47 Dose: 200 mg Documented by: Memantine (Memantine Hcl 10 Mg Tablet) 10 mg PO BID [facility] Last Admin: 10/10/21 07:47 Dose: 10 mg Documented by: Metoprolol Tartrate (Metoprolol Tartrate 100 Mg Tablet) 100 mg PO BID [facility]; Protocol Last Admin: 10/10/21 07:47 Dose: 100 mg Documented by: Multivitamins/Vitamin C (Multivitamin Tablet) 1 tab PO DAILY [facility] Last Admin: 10/10/21 07:47 Dose: 1 tab Documented by: Omeprazole (Omeprazole 20 Mg Capsule.Dr) 20 mg PO DAILY [facility] Last Admin: 10/10/21 07:45 Dose: 20 mg Documented by: Ondansetron HCl (Ondansetron Hcl 4 Mg/2 Ml Vial) 4 mg IVPUSH Q8H PRN PRN Reason: Nausea and Vomiting Pharmacy Consult (Consult Rx Perform Med Rec) 1 each MISCELLANE ONCE PRN PRN Reason: Consult order Pharmacy Consult (Consult Rx Vancomycin Dosing) 1 each MISCELLANE DAILY PRN PRN Reason: Consult order Silver Sulfadiazine (Silver Sulfadiazine 1 % Cream 20 Gm Tube) 1 appl TOPICAL DAILY [facility] Last Admin: 10/10/21 07:49 Dose: 1 appl Documented by: Sodium Chloride (0.9 % Sodium Chloride Flush 3 Ml Syringe) 3 ml IVFLUSH QSHIFT [facility] Last Admin: 10/10/21 07:49 Dose: 3 ml Documented by: Time Spent With Patient Time: Total time spent is greater than 50% in coordination of care (as documented) at patient's floor/unit and/or counseling patient: Time with patient: 15 - 24 minutes Quality Stroke Does the patient have a stroke diagnosis?: No VTE Prior VTE?: No VTE Risk Level:: Medical - moderate - high VTE Device Contraindication: Treatment Not Indicated VTE Drug Contraindication: N/A - Med Ordered
--- NOTE | 2021-10-10 12:14 | W.MHC.F2F ---
Service Date Service Date: 10/10/21 Encounter Date of encounter: 10/10/21 Reasons for Services Reason for senior care: wound care (daily silvadene ), medication management, medication treatment and teach disease management Reason for physical therapy: home safety and mobility, therapeutic exercises, gait/transfer training and energy conservation Homebound: Leaving the home is medically contraindicated at this time without the asist of a device and/or another person due th the listed conditions above and below. Certification: Based on the above findings, I certify that this patient is confined to the home and needs intermittent senior care care, physical therapy and/or speech therapy, or continues to need occupational therapy. The patient is under my care, and I have initiated the establishment of the plan of care. The patient will be followed by a physician who will periodically review the plan of care.
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
--- NOTE | 2021-10-10 13:55 | MHC.CM.PN ---
PT DISCHARGING HOME W/[facility] FOR [employer]M FOR DRESSING CHANGES, PT LEONEL ALSO NEED FOLLOW-UP W/[facility], PT'S SON TO TRANSPORT. 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
--- NOTE | 2021-10-18 09:02 | MHC.CM.PN ---
pt lives c his son and daughter in law. they hellp care for him. pt uses a walker c ambulation and is active c [facility] and home PT. a ref. for this [facility] [place] [facility] [place] [facility] [place] [facility]. pt's son or daughter in law will transport home [place]. this interview was conducted c pt's daughter in law who speaks georgian. dc plan is home c resumption of vna svcs. cm to cont. to follow.
== END 2021-10-10 14:56 | disposition home health service (06) | DRG 935 ==
LOC: HO.ED 14:58 → HO.EDOVER 16:11 → HO.S3 21:25
PROVIDERS: Nurse Practitioner Family; Admitting Provider Physician Assistant Medical; Emergency Provider Emergency Medicine Emergency Medical Services; PCP General Practice; Visit Provider Internal Medicine
DX: T25.221A Burn of second degree of right foot, initial encounter (principal); L03.115 Cellulitis of right lower limb; N17.9 Acute kidney failure, unspecified; T31.0 Burns involving less than 10% of body surface; X08.8XXA Exposure to other specified smoke, fire and flames, initial encounter; Y93.E1 Activity, personal bathing and showering; Y92.002 Bathroom of unspecified non-institutional (private) residence as the place of occurrence of the external cause; G30.9 Alzheimer's disease, unspecified; F02.80 Dementia in other diseases classified elsewhere, unspecified severity, without behavioral disturbance, psychotic disturbance, mood disturbance, and anxiety; E78.5 Hyperlipidemia, unspecified; E87.5 Hyperkalemia; E11.42 Type 2 diabetes mellitus with diabetic polyneuropathy; E11.65 Type 2 diabetes mellitus with hyperglycemia; N18.30 Chronic kidney disease, stage 3 unspecified; E11.22 Type 2 diabetes mellitus with diabetic chronic kidney disease; K21.9 Gastro-esophageal reflux disease without esophagitis; F39 Unspecified mood [affective] disorder; I48.91 Unspecified atrial fibrillation; Z20.822 Contact with and (suspected) exposure to COVID-19; Z79.4 Long term (current) use of insulin; Z79.01 Long term (current) use of anticoagulants; Z79.899 Other long term (current) drug therapy
CPT/HCPCS: 36415; 71046; 73620; 78452; 80048; 80076; 80202; 81001; 82947; 83605; 83735; 83880; 84484; 85025; 85027; 85652; 86140; 87040; 87635; 93005; 93017; 93242; 93926; 93971; 96365; 99285; A9500; J2543; J2785; J3370

== ENCOUNTER 2021-10-17 12:38 | Inpatient (IN) | payer MEDICARE, MEDICAID, SELFPAY ==
--- NOTE | ~2021-10-17 | XR_ITS ---
EXAMINATION: XR FOOT, RIGHT CLINICAL INFORMATION: Right foot pain COMPARISON: Radiographs right foot 10/07/2021 TECHNIQUE: Right foot is imaged in 5 views. FINDINGS: There is no interval acute or healing fracture, dislocation, destructive process. No interval periostitis. No gas tracking in the soft tissues. There are chronic appearing posttraumatic changes distal fibular shaft again noted. The subtalar joint is unremarkable. There are posterior and plantar calcaneal spurs. The subtalar joint is unremarkable. There is mild dorsal spurring from the midfoot. There is old healed posttraumatic injury lateral base first proximal phalanx. XR/XR foot RT min 3V IMPRESSION: No acute bony abnormality when compared with recent study 10/07/2021. No destructive process. No gas tracking in soft tissue planes.
[2021-10-17 12:51] VITALS: BP 114/53; BP 96/57; PULSE 72; PULSE 80; RESP 20; TEMP 36.7; O2SAT 95; O2SAT 97; BMI 34.0
--- NOTE | 2021-10-17 12:52 | ED_ITS ---
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 because the elevated blood sugar, history is limited secondary to his dementia Onset (ago): day(s) (1) Radiation: non-radiation Severity: moderate Pain Consistency: constant Exacerbating factors: none Related Data Home Medications Medication Instructions Recorded Confirmed apixaban 5 mg tablet (Eliquis) 1 tab PO BID 09/05/21 10/17/21 citalopram 10 mg tablet 1 tab PO DAILY 09/05/21 10/17/21 donepezil 10 mg tablet 1 tab PO QPM 09/05/21 10/17/21 glimepiride 4 mg tablet 1 tab PO BID 09/05/21 10/17/21 magnesium oxide 1 tab PO DAILY 09/05/21 10/17/21 memantine 10 mg tablet 1 tab PO BID 09/05/21 10/17/21 metoprolol tartrate 100 mg tablet 1 tab PO BID 09/05/21 10/17/21 wjweatsw-hfu-jmnty acid 0.4 1 tab PO DAILY 09/05/21 10/17/21 mg-lycopene 300 mcg-lutein 250 mcg tablet (CertaVite Senior) pantoprazole 40 mg tablet,delayed 1 tab PO DAILY 09/05/21 10/17/21 release acetaminophen 500 mg tablet 1 tab PO Q6H PRN 10/07/21 10/17/21 allopurinol 100 mg tablet 0.5 tab PO DAILY 10/07/21 10/17/21 carboxymethylcellulose sodium 0.5 1 drp OPHTHALMIC (EYE) Q4-6H PRN 10/07/21 10/17/21 % eye drops (Refresh Tears) diphenhydramine HCl 25 mg tablet 0.5 tab PO BEDTIME PRN 10/07/21 10/17/21 (Banophen) insulin glargine 100 unit/mL (3 30 unit SUBCUT QPM 10/07/21 10/17/21 mL) subcutaneous pen (Lantus Solostar U-100 Insulin) gabapentin 600 mg tablet 1 tab PO BID 10/17/21 10/17/21 insulin lispro protamine-lispro 76 unit SUBCUT TID 10/17/21 10/17/21 100 unit/mL (50-50) subcutaneous susp (Humalog Mix 50-50 Insuln U-100) Previous Rx's Medication Instructions Recorded atorvastatin 40 mg tablet (Lipitor) 40 mg PO BEDTIME #30 tab 09/09/21 bumetanide 1 mg tablet 1 tab PO DAILY #0 tab 09/09/21 amlodipine 10 mg tablet 10 mg PO DAILY #30 tab 10/10/21 doxycycline hyclate 100 mg capsule 100 mg PO BID #10 cap 10/10/21 silver sulfadiazine 1 % topical 1 appl TOPICAL DAILY #50 g 10/11/21 cream (SSD) Allergies Allergy/AdvReac Type Severity Reaction Status Date / Time No Known Allergies Allergy Verified 09/05/21 20:27 Review of Systems Review of Systems: Yes all other systems are reviewed and are negative Cardiovascular: Cardiovascular: Reports no additional cardiovascular complaints, Denies syncope and Denies rapid heart rate Respiratory: Respiratory: Reports no additional respiratory complaints Gastrointestinal: Gastrointestinal: Reports no additional gastrointestinal complaints Musculoskeletal: Musculoskeletal: Reports no additional musculoskeletal complaints Neurologic: Denies syncope [facility] Past Medical History Medical History Alzheimer's dementia Atrial fibrillation Diabetes Heart failure with preserved ejection fraction HLD (hyperlipidemia) HTN (hypertension) Kidney failure NSTEMI (non-ST elevated myocardial infarction) Surgical History No pertinent past surgical history Social History Social History Household Members: Family Housing: House Do you presently have visiting nurse or other home services: No Alcohol intake: never Patient Tobacco Use Status: Never used Tobacco Use of substances other than those prescribed or required for medical reasons: No Advance Directives: Yes Advance Directives on File: Yes Advance Directives Date on File: 09/06/21 service: No Current occupational status: retired Physical Exam Vital Signs: Vital Signs: Last Vital Signs Temp 97.6 F 10/17/21 19:33 Pulse 73 10/17/21 19:33 Resp 14 10/17/21 19:33 BP 121/78 10/17/21 19:33 Pulse Ox 96 10/17/21 19:33 Body Mass Index 34.0 Const: General: cooperative, comfortable and no acute distress Nutritional Appearance: average body habitus HENMT: Head: Yes normal to inspection Face and sinus: Yes normal facial exam Mouth: Normal oral and palatal mucosa present Throat: Yes posterior oropharynx normal Neck: Neck: Yes normal visual inspection and Yes full ROM Chest: Chest palpation & inspection: normal inspection of the chest Resp: Effort & Inspection: normal respiratory effort Auscultation: clear to auscultation bilaterally Cardio: Jugular venous distension: no JVD Rate: regular rate Rhythm: regular rhythm GI: Inspection: Yes normal to inspection Palpation (GI): Soft to palpation, not firm and nontender Neuro: General: no focal motor deficits Cranial nerves: Yes CN's II-XII intact bilaterally Extrem: Other: Rt foot there are stitches Course Course Course Narrative: I spoke with surgery Dr Orr ,he know the pt from prior admission,per dr Zamora actually the foot is much better. Given the elevated blood sugr more than 500,given the worsening renal funtion test,given the lactic acidosis it is reasonable to admit the pt for OBS Medical Decision Making Lab Data Result diagrams: 10/17/21 13:13 10/17/21 13:13 Labs: Lab Results 10/17/21 10/17/21 10/17/21 Range/Units 13:01 13:13 13:13 WBC 10.3 (4.8-10.8) X10*3/uL RBC 4.56 L (4.60-5.80) X10*6/uL Hgb 15.8 (14.0-18.0) g/dl Hct 45.8 (42.0-52.0) % MCV 100.4 H (80.0-98.0) fL MCH 34.6 H (27.0-33.0) pg MCHC 34.5 (31.0-36.0) g/dl RDW 12.3 (11.0-16.0) % Plt Count 193 D (160-400) X10*3/uL MPV 12.0 (9.4-12.4) fL Immature Gran % (Auto) 0.4 (0.0-0.4) % Neut % (Auto) 80.2 H (45-73) % Lymph % (Auto) 10.6 L (20-40) % [place] % (Auto) 7.4 (2-11) % Eos % (Auto) 1.0 (0-4) % Baso % (Auto) 0.4 (0-2) % Lymph # (Auto) 1.1 L (1.2-4.9) X10*3/uL [place] # (Auto) 0.8 (0.1-1.2) X10*3/uL Eos # (Auto) 0.1 (0.0-0.4) X10*3/uL Baso # (Auto) 0.0 (0.0-0.2) X10*3/uL Abs Immat Gran (auto) 0.04 H (0.00-0.03) X10*3/uL Absolute Neuts (auto) 8.2 (2.0-8.3) x10*3/uL Absolute Nucleated RBC 0.000 (0.0-0.012) X10*3/uL Nucleated RBC % (auto) 0.0 (0.0-0.2) /100WBC ESR (0-15) MM/HR Sodium 130 L (135-145) mmol/L Potassium 4.9 (3.3-5.1) mmol/L Chloride 87 L (96-108) mmol/L Carbon Dioxide 31 H (22-29) mmol/L Anion Gap 17 (12-20) BUN 55 H D (9-16) mg/dL Creatinine 2.69 H (0.5-1.4) mg/dL Estim Creat Clear Calc 31.3 Estimated GFR 23 POC Glucose 498 H* (60-115) mg/dL Random Glucose 551 H* (60-115) mg/dL Lactic Acid (0.5-2.0) mmol/L Calcium 9.6 (8.4-10.2) mg/dL Total Bilirubin 0.8 (0.0-1.0) mg/dL AST 17 (5-37) U/L ALT 17 (0-40) U/L Alkaline Phosphatase 123 H (39-117) U/L Total Protein 7.7 (6.5-8.0) g/dL Albumin 4.1 (3.5-5.0) g/dL 10/17/21 10/17/21 10/17/21 Range/Units 13:13 13:14 14:39 WBC (4.8-10.8) X10*3/uL RBC (4.60-5.80) X10*6/uL Hgb (14.0-18.0) g/dl Hct (42.0-52.0) % MCV (80.0-98.0) fL MCH (27.0-33.0) pg MCHC (31.0-36.0) g/dl RDW (11.0-16.0) % Plt Count (160-400) X10*3/uL MPV (9.4-12.4) fL Immature Gran % (Auto) (0.0-0.4) % Neut % (Auto) (45-73) % Lymph % (Auto) (20-40) % [place] % (Auto) (2-11) % Eos % (Auto) (0-4) % Baso % (Auto) (0-2) % Lymph # (Auto) (1.2-4.9) X10*3/uL [place] # (Auto) (0.1-1.2) X10*3/uL Eos # (Auto) (0.0-0.4) X10*3/uL Baso # (Auto) (0.0-0.2) X10*3/uL Abs Immat Gran (auto) (0.00-0.03) X10*3/uL Absolute Neuts (auto) (2.0-8.3) x10*3/uL Absolute Nucleated RBC (0.0-0.012) X10*3/uL Nucleated RBC % (auto) (0.0-0.2) /100WBC ESR 53 H (0-15) MM/HR Sodium (135-145) mmol/L Potassium (3.3-5.1) mmol/L Chloride (96-108) mmol/L Carbon Dioxide (22-29) mmol/L Anion Gap (12-20) BUN (9-16) mg/dL Creatinine (0.5-1.4) mg/dL Estim Creat Clear Calc Estimated GFR POC Glucose 395 H* (60-115) mg/dL Random Glucose (60-115) mg/dL Lactic Acid 2.6 H* (0.5-2.0) mmol/L Calcium (8.4-10.2) mg/dL Total Bilirubin (0.0-1.0) mg/dL AST (5-37) U/L ALT (0-40) U/L Alkaline Phosphatase (39-117) U/L Total Protein (6.5-8.0) g/dL Albumin (3.5-5.0) g/dL Imaging Data rt foot: Radiologist's impression: XR FOOT, RIGHT CLINICAL INFORMATION: Right foot pain? COMPARISON: Radiographs right foot 10/07/2021? TECHNIQUE: Right foot is imaged in 5 views. FINDINGS: There is no interval acute or healing fracture, dislocation, destructive process. No interval periostitis. No gas tracking in the soft tissues. There are chronic appearing posttraumatic changes distal fibular shaft again noted. The subtalar joint is unremarkable. There are posterior and plantar calcaneal spurs. The subtalar joint is unremarkable. There is mild dorsal spurring from the midfoot. There is old healed posttraumatic injury lateral base first proximal phalanx.? XR/XR foot RT min 3V IMPRESSION: No acute bony abnormality when compared with recent study 10/07/2021. No destructive process. No gas tracking in soft tissue planes. Dictated By: Iain Frias MD Signed By: <Electronically signed by Iain Frias MD in OV> 10/17/21 1505 DD/ 1408 TD/TT:? Senior Microstrategy Developer: MONTILLA Discharge Plan Discharge Clinical Impression: Hyperglycemia, Renal failure (ARF), acute on chronic, Diabetic foot infection Patient Disposition: Admitted As Inpatient
[2021-10-17 13:05] LABS: Glucose, Whole Blood 498 mg/dL (60-115)
[2021-10-17 13:21] LABS: MANUAL DIFF FLAG NO
[2021-10-17 13:24] LABS: Basophils Percent Auto 0.4 % (0-2); Eosinophils Absolute Auto 0.1 X10*3/uL (0.0-0.4); Hematocrit 45.8 % (42.0-52.0); Hemoglobin 15.8 g/dl (14.0-18.0); Imm Gran Abs Auto 0.04 X10*3/uL (0.00-0.03); Imm Gran Pct Auto 0.4 % (0.0-0.4); Lymphocytes Absolute Auto 1.1 X10*3/uL (1.2-4.9); Lymphocytes Percent Auto 10.6 % (20-40); Mean Corpuscular HGB Conc 34.5 g/dl (31.0-36.0); Mean Corpuscular Hemoglobin 34.6 pg (27.0-33.0); Mean Corpuscular Volume 100.4 fL (80.0-98.0); Monocytes Absolute Auto 0.8 X10*3/uL (0.1-1.2); Monocytes Percent Auto 7.4 % (2-11); Neutrophils Absolute Auto 8.2 x10*3/uL (2.0-8.3); Neutrophils Percent Auto 80.2 % (45-73); Platelet Count 193 X10*3/uL (160-400); Red Blood Count 4.56 X10*6/uL (4.60-5.80); Red Cell Distribution Width 12.3 % (11.0-16.0); White Blood Count 10.3 X10*3/uL (4.8-10.8)
[2021-10-17] MEDS: Insulin Lispro 100 UNIT/ML 3 ML VIAL 12 UNIT SUBCUT (13:25)
[2021-10-17] MEDS: 0.9 % Sodium Chloride 1,000 ML 999 ML IVCONT ×2 (13:25→15:07)
[2021-10-17 13:38] LABS: Lactic Acid 2.6 mmol/L (0.5-2.0)
[2021-10-17 13:38] LABS: Alanine Aminotransferase 17 U/L (0-40); Albumin Level 4.1 g/dL (3.5-5.0); Alkaline Phosphatase 123 U/L (39-117); Anion Gap 17 (12-20); Aspartate Amino Transferase 17 U/L (5-37); Bilirubin Total 0.8 mg/dL (0.0-1.0); Blood Urea Nitrogen 55 mg/dL (9-16); Calcium 9.6 mg/dL (8.4-10.2); Carbon Dioxide 31 mmol/L (22-29); Chloride 87 mmol/L (96-108); Creatinine Clr Calc Pharmacy 31.3; Estimated Glomerular Filt Rate 23; Glucose Random 551 mg/dL (60-115); Potassium 4.9 mmol/L (3.3-5.1); Sodium 130 mmol/L (135-145); Total Protein 7.7 g/dL (6.5-8.0)
[2021-10-17 14:24] VITALS: BP 125/61; PULSE 69; RESP 20; O2SAT 95
[2021-10-17 14:43] LABS: Glucose, Whole Blood 395 mg/dL (60-115)
[2021-10-17 15:19] LABS: Reflex Lactate? Lactic Acid Added
[2021-10-17 15:20] LABS: Erythrocyte Sedimentation Rate 53 MM/HR (0-15)
[2021-10-17 16:22] VITALS: BP 105/58; PULSE 68; RESP 16; O2SAT 96
[2021-10-17 16:28] LABS: Glucose, Whole Blood 299 mg/dL (60-115)
[2021-10-17 16:30] LABS: COVID-19 Test Negative (Negative); ~Lactic Acid-LAB USE ONLY 1.7 mmol/L (0.5-2.0)
[2021-10-17] MEDS: Piperacillin Sodium/Tazobactam 2.25 GM in 0.9 % Sodium Chloride 50 ML IV ×2 (16:32→23:42)
[2021-10-17] MEDS: 0.9 % Sodium Chloride Flush 3 ML SYRINGE IVFLUSH (16:33)
[2021-10-17] MEDS: Insulin Glargine,Hum.rec.anlog 100 UNIT/ML 10 ML VIAL 10 UNIT SUBCUT (16:33)
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
--- NOTE | 2021-10-17 16:59 | PM.EVENT ---
Event Note Date of Service: 10/17/21 Event Note: Patient came to the hospital because of uncontrolled diabetes and james on CKD, diabetic foot right-sided- he has completed antibiotic for 1 week as per the family. Patient sugars were fluctuating since his the insulin regimen was adjusted out patiently Patient denies any new complaint: Denies any new complaint of chest pain or shortness of breath or abdominal pain or fever or chills or nausea or vomiting Denies any cough Denies any weakness or numbness. physical exam: Appearance: Alert.? Oriented X3.? not in distress.? Eyes: Pupils equal, round and reactive to light.? Sclera nonicteric.? ENT: Pharynx normal.? Moist mucous membranes. cvs: rrr, [id number] , no murmur res: clear to auscultation ,no rhonchii or wheezing abd: no rebound or guarding ,nt, bs present. ext pulses present , no cyanosis ,Gait well balanced well coordinated. neuro: axo3 , nonfocal. Assessment and plan coordinated in H&P note Agree with plan Lab imaging reviewed Has elevated creatinine to 2.69, no leukocytosis, no fever or tachycardia. Patient received the 2 L bolus in ED? Question probably JAMES Patient was seen by surgery in the ED and thought to be his foot is slightly better than before. We will hold diuretics for now, avoid for IV fluid, p.o. hydration encouraged. ID and surgery evaluation Lactic acid resolved Diabetes : Hyperglycemia improving with insulin Will continue to monitor given 10 units of Lantus now and also fingersticks with sliding scale ordered. Med reconciliation still pending. Monitor renal function electrolytes in a.m. if the renal function does not improve will add Nephro evaluation.
--- NOTE | 2021-10-17 17:20 | P.CONGS_ITS ---
History of Present Illness Consult details Consult date: 10/17/21 Narrative: 76M referred for recent toe blisters. He was admitted to the hospital today after his blood sugars were noted to be in the 400's at home. He was actually just discharged from the hospital last week. He had cellulitis of his right toes at that time from what appeared to be scald injuries with inital blisters. These have been improving since then. He had some drainage before but the son says that the blistered areas have all dried up. The redness of his foot has also practically resolved. He denies any new pain on the right foot. He does state that this actually looks and feels much better. Review of Systems Constitutional: Constitutional: Denies chills and Denies fever(s) Cardiovascular: Cardiovascular: Denies chest pain, Denies dyspnea and Denies dyspnea on exertion Respiratory: Respiratory: Denies cough, Denies dyspnea and Denies dyspnea on exertion Gastrointestinal: Gastrointestinal: Denies hematochezia and Denies change in bowel habits Genitourinary: Genitourinary: Denies hematuria and Denies difficulty urinating Musculoskeletal: Musculoskeletal: Denies back pain and Denies limited range of motion Neurologic: Denies focal weakness and Denies convulsions Psychiatric: Psychiatric: Denies depression and Denies mood swings PMFSH Past Medical History Medical History Alzheimer's dementia Atrial fibrillation Diabetes Heart failure with preserved ejection fraction HLD (hyperlipidemia) HTN (hypertension) Kidney failure NSTEMI (non-ST elevated myocardial infarction) Surgical History Surgical History No pertinent past surgical history Social History Social History Household Members: Children Housing: Apartment Do you presently have visiting nurse or other home services: No Alcohol intake: never Patient Tobacco Use Status: Never used Tobacco Advance Directives Date on File: 09/06/21 service: No Current occupational status: retired [employer] Allergies Allergy/AdvReac Type Severity Reaction Status Date / Time No Known Allergies Allergy Verified 09/05/21 20:27 Active Medications: Current Medications Dextrose (Dextrose 50 % 25 Gm/50 Ml Vial) 25 gm IVPUSH Q15M PRN; Protocol PRN Reason: per Hypoglycemia Standing Ord. Glucose (Glucose Gel 15 Gm Gel..Gram.) 15 gm PO Q15M PRN; Protocol PRN Reason: per Hypoglycemia Standing Ord. Piperacillin Sod/Tazobactam (Sod 2.25 gm/ Sodium Chloride) 50 mls @ 100 mls/hr IV Q6H [facility] Last Infusion: 10/17/21 17:07 Dose: Infused Documented by: Insulin Human Lispro (Insulin Lispro 100 Unit/Ml 3 Ml Vial) [facility]; Protocol Pharmacy Consult (Consult Rx Perform Med Rec) 1 each MISCELLANE ONCE PRN PRN Reason: Consult order Sodium Chloride (0.9 % Sodium Chloride Flush 3 Ml Syringe) 3 ml IVFLUSH [facility] Last Admin: 10/17/21 16:33 Dose: 3 ml Documented by: Home Medications Medication Instructions Recorded Confirmed Last Taken Type apixaban 5 mg tablet (Eliquis) 1 tab PO BID 09/05/21 10/17/21 10/17/21 History citalopram 10 mg tablet 1 tab PO DAILY 09/05/21 10/17/21 10/17/21 History donepezil 10 mg tablet 1 tab PO QPM 09/05/21 10/17/21 10/16/21 History glimepiride 4 mg tablet 1 tab PO BID 09/05/21 10/17/21 10/17/21 History magnesium oxide 1 tab PO DAILY 09/05/21 10/17/21 10/17/21 History memantine 10 mg tablet 1 tab PO BID 09/05/21 10/17/21 10/17/21 History metoprolol tartrate 100 mg tablet 1 tab PO BID 09/05/21 10/17/21 10/17/21 History ydgrcqis-jkm-xybhh acid 0.4 1 tab PO DAILY 09/05/21 10/17/21 10/17/21 History mg-lycopene 300 mcg-lutein 250 mcg tablet (CertaVite Senior) pantoprazole 40 mg tablet,delayed 1 tab PO DAILY 09/05/21 10/17/21 10/17/21 History release acetaminophen 500 mg tablet 1 tab PO Q6H PRN 10/07/21 10/17/21 10/17/21 History allopurinol 100 mg tablet 0.5 tab PO DAILY 10/07/21 10/17/21 10/17/21 History carboxymethylcellulose sodium 0.5 1 drp OPHTHALMIC (EYE) Q4-6H PRN 10/07/21 10/17/21 10/17/21 History % eye drops (Refresh Tears) diphenhydramine HCl 25 mg tablet 0.5 tab PO BEDTIME PRN 10/07/21 10/17/21 10/16/21 History (Banophen) insulin glargine 100 unit/mL (3 30 unit SUBCUT QPM 10/07/21 10/17/21 10/16/21 History mL) subcutaneous pen (Lantus Solostar U-100 Insulin) gabapentin 600 mg tablet 1 tab PO BID 10/17/21 10/17/21 10/17/21 History insulin lispro protamine-lispro 76 unit SUBCUT TID 10/17/21 10/17/21 10/17/21 History 100 unit/mL (50-50) subcutaneous susp (Humalog Mix 50-50 Insuln U-100) Physical Exam Vital Signs: Vital Signs: Last Vital Signs Temp 98.1 F 10/17/21 12:51 Pulse 68 10/17/21 16:22 Resp 16 10/17/21 16:22 BP 105/58 L 10/17/21 16:22 Pulse Ox 96 10/17/21 16:22 Body Mass Index 34.0 Const: General: comfortable and no acute distress Orientation/consciousness: patient oriented x3 Neck: Neck: Yes no lymphadenopathy Resp: Auscultation: clear to auscultation bilaterally Cardio: Rhythm: regular rhythm GI: Palpation (GI): Soft to palpation, nontender and no guarding Neuro: General: patient oriented x3 Extrem: Other: right big toe ulcer is now completely reepithelialized; the blisters on toes 2-4 have all dried up, and there is some superficial scabbing on the plantar areas that are well demarcated; there is no new cellulitis, or pus Results Labs Result diagrams: 10/18/21 06:03 10/18/21 06:03 Labs: Abnormal lab results 10/17/21 10/17/21 10/17/21 Range/Units 13:01 13:13 13:13 RBC 4.56 L (4.60-5.80) X10*6/uL MCV 100.4 H (80.0-98.0) fL MCH 34.6 H (27.0-33.0) pg Neut % (Auto) 80.2 H (45-73) % Lymph % (Auto) 10.6 L (20-40) % Lymph # (Auto) 1.1 L (1.2-4.9) X10*3/uL Abs Immat Gran (auto) 0.04 H (0.00-0.03) X10*3/uL ESR (0-15) MM/HR Sodium 130 L (135-145) mmol/L Chloride 87 L (96-108) mmol/L Carbon Dioxide 31 H (22-29) mmol/L BUN 55 H D (9-16) mg/dL Creatinine 2.69 H (0.5-1.4) mg/dL POC Glucose 498 H* (60-115) mg/dL Random Glucose 551 H* (60-115) mg/dL Lactic Acid (0.5-2.0) mmol/L Alkaline Phosphatase 123 H (39-117) U/L 10/17/21 10/17/21 10/17/21 Range/Units 13:13 13:14 14:39 RBC (4.60-5.80) X10*6/uL MCV (80.0-98.0) fL MCH (27.0-33.0) pg Neut % (Auto) (45-73) % Lymph % (Auto) (20-40) % Lymph # (Auto) (1.2-4.9) X10*3/uL Abs Immat Gran (auto) (0.00-0.03) X10*3/uL ESR 53 H (0-15) MM/HR Sodium (135-145) mmol/L Chloride (96-108) mmol/L Carbon Dioxide (22-29) mmol/L BUN (9-16) mg/dL Creatinine (0.5-1.4) mg/dL POC Glucose 395 H* (60-115) mg/dL Random Glucose (60-115) mg/dL Lactic Acid 2.6 H* (0.5-2.0) mmol/L Alkaline Phosphatase (39-117) U/L 10/17/21 Range/Units 16:21 RBC (4.60-5.80) X10*6/uL MCV (80.0-98.0) fL MCH (27.0-33.0) pg Neut % (Auto) (45-73) % Lymph % (Auto) (20-40) % Lymph # (Auto) (1.2-4.9) X10*3/uL Abs Immat Gran (auto) (0.00-0.03) X10*3/uL ESR (0-15) MM/HR Sodium (135-145) mmol/L Chloride (96-108) mmol/L Carbon Dioxide (22-29) mmol/L BUN (9-16) mg/dL Creatinine (0.5-1.4) mg/dL POC Glucose 299 H (60-115) mg/dL Random Glucose (60-115) mg/dL Lactic Acid (0.5-2.0) mmol/L Alkaline Phosphatase (39-117) U/L Short CBC 10/17/21 Range/Units 13:13 WBC 10.3 (4.8-10.8) X10*3/uL Hgb 15.8 (14.0-18.0) g/dl Hct 45.8 (42.0-52.0) % Plt Count 193 D (160-400) X10*3/uL BMP 10/17/21 13:13 Sodium 130 L Potassium 4.9 Chloride 87 L Carbon Dioxide 31 H BUN 55 H D Creatinine 2.69 H Calcium 9.6 Liver Function 10/17/21 Range/Units 13:13 Total Bilirubin 0.8 (0.0-1.0) mg/dL AST 17 (5-37) U/L ALT 17 (0-40) U/L Alkaline Phosphatase 123 H (39-117) U/L Albumin 4.1 (3.5-5.0) g/dL All other labs normal. Assessment and Plan (1) Wound of right foot: Status: Acute He had multiple blisters on the toes last week, along with an ulcer on the big toe. These have all improved significantly. The cellulitis has also resolved. He does not require debridement at this time.These areas do not appear to be acutely infected. I doubt that his elevated blood sugars are related to these previous toe blisters. Procedures Date of Service Date of Service: 10/17/21
[2021-10-17 18:11] LABS: Glucose, Whole Blood 322 mg/dL (60-115)
[2021-10-17] MEDS: Insulin Lispro 100 UNIT/ML 3 ML VIAL SUBCUT ×3 (18:25→23:48)
[2021-10-17 19:33] VITALS: BP 121/78; PULSE 73; RESP 14; TEMP 36.4; O2SAT 96
[2021-10-17 19:57] LABS: Glucose, Whole Blood 455 mg/dL (60-115)
[2021-10-17 20:33] VITALS: BP 131/68; PULSE 76
[2021-10-17] MEDS: Metoprolol Tartrate 100 MG TABLET PO (20:33)
[2021-10-17] MEDS: Donepezil HCl 10 MG TABLET PO (20:35)
[2021-10-17] MEDS: Apixaban 5 MG TABLET PO (20:35)
[2021-10-17] MEDS: Memantine HCl 10 MG TABLET PO (20:35)
[2021-10-17] MEDS: Atorvastatin Calcium 40 MG TABLET PO (20:35)
[2021-10-17] MEDS: Gabapentin 600 MG TABLET PO (20:36)
[2021-10-17] MEDS: Insulin Glargine,Hum.rec.anlog 100 UNIT/ML 10 ML VIAL 15 UNIT SUBCUT ×2 (20:38→23:49)
--- NOTE | 2021-10-17 20:42 | PC.NURSE ---
pt a&o, no sob or chest pain. Spoke to hospitalist in regards to poc care. Medicated per jan. Right foot marked and pedal pulse by Doppler are marked.
[2021-10-17 22:57] VITALS: BP 117/79; PULSE 63; RESP 14; TEMP 36.4; O2SAT 96
[2021-10-17 23:32] LABS: Glucose, Whole Blood 425 mg/dL (60-115)
--- NOTE | 2021-10-17 23:50 | PC.NURSE ---
Repeat poc was elevated, notified hospitalist of elevated poc . Additional insulin ordered.
--- NOTE | 2021-10-17 23:58 | PC.NURSE ---
attempted to call report. RN will call back
[2021-10-18] VITALS (9 sets, daily range): BP systolic 120–147; BP diastolic 66–79; PULSE 68–80; RESP 15–18; TEMP 36.2–37.1; O2SAT 92–95; BMI 34.2
[2021-10-18] MEDS: 0.9 % Sodium Chloride Flush 3 ML SYRINGE IVFLUSH ×3 (00:06→16:47)
--- NOTE | 2021-10-18 00:57 | PC.NURSE ---
Called to give report, Rn will call back.
[2021-10-18 04:19] LABS: Glucose, Whole Blood 333 mg/dL (60-115)
[2021-10-18] MEDS: Piperacillin Sodium/Tazobactam 2.25 GM in 0.9 % Sodium Chloride 50 ML IV ×2 (05:34→10:24)
[2021-10-18 06:50] LABS: Anion Gap 17 (12-20); Blood Urea Nitrogen 46 mg/dL (9-16); Calcium 9.1 mg/dL (8.4-10.2); Carbon Dioxide 27 mmol/L (22-29); Chloride 95 mmol/L (96-108); Creatinine Clr Calc Pharmacy 42.6; Estimated Glomerular Filt Rate 33; Glucose Random 349 mg/dL (60-115); Potassium 4.5 mmol/L (3.3-5.1); Sodium 134 mmol/L (135-145)
[2021-10-18 06:56] LABS: Hematocrit 42.9 % (42.0-52.0); Hemoglobin 15.2 g/dl (14.0-18.0); Mean Corpuscular HGB Conc 35.4 g/dl (31.0-36.0); Mean Corpuscular Hemoglobin 35.2 pg (27.0-33.0); Mean Corpuscular Volume 99.3 fL (80.0-98.0); Mean Platelet Volume 12.4 fL (9.4-12.4); Platelet Count 168 X10*3/uL (160-400); Red Blood Count 4.32 X10*6/uL (4.60-5.80); White Blood Count 7.9 X10*3/uL (4.8-10.8)
[2021-10-18 07:26] LABS: Glucose, Whole Blood 319 mg/dL (60-115)
[2021-10-18] MEDS: Metoprolol Tartrate 100 MG TABLET PO ×2 (08:00→20:48)
[2021-10-18] MEDS: Magnesium Oxide 400 MG TABLET 200 MG PO (08:00)
[2021-10-18] MEDS: Memantine HCl 10 MG TABLET PO ×2 (08:00→20:48)
[2021-10-18] MEDS: Omeprazole 20 MG CAPSULE.DR PO (08:00)
[2021-10-18] MEDS: Multivitamin TABLET 1 TAB PO (08:00)
[2021-10-18] MEDS: Escitalopram Oxalate 5 MG TABLET PO (08:00)
[2021-10-18] MEDS: allopurinoL 100 MG TABLET 50 MG PO (08:01)
[2021-10-18] MEDS: amLODIPine Besylate 10 MG TABLET PO (08:01)
[2021-10-18] MEDS: Gabapentin 600 MG TABLET PO ×2 (08:01→20:49)
[2021-10-18] MEDS: Insulin Lispro 100 UNIT/ML 3 ML VIAL SUBCUT ×4 (08:01→20:49)
[2021-10-18] MEDS: Apixaban 5 MG TABLET PO ×2 (08:01→20:49)
--- NOTE | 2021-10-18 08:46 | P.CDIC_ITS ---
CDI Concurrent Query Documentation Clarification: PHYSICIAN'S DOCUMENTATION REQUEST Date of Query: 10/18/21 0847 Patient Name: Dayton Forrest Admit Date: 10/17/21 Dear Doctor, A review of the medical record indicates additional documentation may be needed. Please review below and update the documentation accordingly. Clinical Indicators: The following clinical information was noted in the record: Risk Factors/Clinical Indicators/Treatments BUN 55 Creatinine 2.69 Per ED note 10/17/21: Acute/Chronic Renal Failure Per MD progress note 10/09/21: baseline probably around 1.5 Please clarify which of the following accurately represents the patient's renal status: * Acute renal failure - see criteria * Acute renal failure with suspected ATN * Acute renal failure with other pathology (medullary, papillary, or cortical necrosis) * Acute renal failure (with type, appropriate) on Chronic Kidney Disease (CKD) - see criteria * Acute kidney injury (non-traumatic) - see criteria * CKD, please provide stage - see criteria * Other (please specify) * Unable to determine Criteria for JAMES* Stages of Chronic Kidney Disease* 1. Increase in serum creatinine by ? 0.3 mg/dL Level Description GFR (?26.5 micromol/L) within 48 hours, or G1 Normal or High > 90 2. Increase in serum creatinine to ?1.5 times baseline, G2 Mildly decreased 60 ? 89 which is known or presumed to have occurred within 7 days, or G3a Mildly to moderately decreased 45 ? 59 3. Urine volume <0.5 mL/kg/hour for six hours G3b Moderately to severely decreased 30 - 44 G4 Severely decreased 15 ? 29 G5 Kidney failure < 15 *Source: Kidney Disease: Improving Global Outcomes (KDIGO) 2012 Use of terms such as suspected, likely, concern for, or probable (associated with a specific diagnosis that is being evaluated, monitored, or treated as if it exists) are acceptable and can be coded in the inpatient setting, when documented at the time of discharge. Thank you, Juanita Jeong RN Extension: [phone] Please use your independent medical judgment in providing your response. THIS QUERY IS PART OF THE PERMANENT MEDICAL RECORD Provider Response: Other Other Diagnosis: acute on chronic renal failure
--- NOTE | 2021-10-18 09:08 | MHC.CM.PN ---
pt lives c his son and daughter in law. they hellp care for him. pt uses a walker c ambulation and is active c [facility] for n[facility] and home PT. [place] for [place] [facility] [place] also [place] [facility] [place] [facility] pt's son or daughter in law [place] transport [place] this interview was conducted c pt's daughter in law who speaks khmer. dc plan is home c resumption of vna sv[facility]. cm to cont. to follow.
[2021-10-18 11:16] LABS: Glucose, Whole Blood 399 mg/dL (60-115)
--- NOTE | 2021-10-18 15:02 | W.PM.IDCN ---
History of Present Illness Data of Consult Service Date: 10/18/21 Requesting physician: Chidi Ramirez Primary Care Provider: MD MARIANNE Lzoada Reason for consult: right foot possible infection,hyperglycemia He presents with increased blood sugar per family. He has no fever or chills He was recently treated 10/10 for concern over diabetic foot infection with Zosyn and Vancomycin Area is much improved Review of Systems Review of Systems: Yes all other systems are reviewed and are negative PMFSH Past Medical History Medical History Alzheimer's dementia Atrial fibrillation Diabetes Heart failure with preserved ejection fraction HLD (hyperlipidemia) HTN (hypertension) Kidney failure NSTEMI (non-ST elevated myocardial infarction) Family History Family history: reviewed and not pertinent Surgical History Surgical History No pertinent past surgical history Social History Social History Household Members: Children Housing: Apartment Do you presently have visiting nurse or other home services: No Alcohol intake: never Patient Tobacco Use Status: Never used Tobacco Advance Directives Date on File: 09/06/21 service: No Current occupational status: retired Meds Allergies Allergy/AdvReac Type Severity Reaction Status Date / Time No Known Allergies Allergy Verified 09/05/21 20:27 Active Medications: Current Medications Acetaminophen (Acetaminophen 325 Mg Tablet) 1 mg PO Q6H PRN PRN Reason: pain Allopurinol (Allopurinol 100 Mg Tablet) 50 mg PO DAILY [facility] Last Admin: 10/18/21 08:01 Dose: 50 mg Documented by: Amlodipine Besylate (Amlodipine Besylate 10 Mg Tablet) 10 mg PO DAILY [facility]; Protocol Last Admin: 10/18/21 08:01 Dose: 10 mg Documented by: Apixaban (Apixaban 5 Mg Tablet) 5 mg PO BID [facility] Last Admin: 10/18/21 08:01 Dose: 5 mg Documented by: Artificial Tears (Artificial Tears 15 Ml Drops) 1 drop EYE-BOTH Q4H PRN PRN Reason: DRY EYES Atorvastatin Calcium (Atorvastatin Calcium 40 Mg Tablet) 40 mg PO BEDTIME [facility] Last Admin: 10/17/21 20:35 Dose: 40 mg Documented by: Dextrose (Dextrose 50 % 25 Gm/50 Ml Vial) 25 gm IVPUSH Q15M PRN; Protocol PRN Reason: per Hypoglycemia Standing Ord. Diphenhydramine HCl (Diphenhydramine Hcl 25 Mg Tablet) 12.5 mg PO BEDTIME PRN PRN Reason: Insomnia Donepezil HCl (Donepezil Hcl 10 Mg Tablet) 10 mg PO BEDTIME [facility] Last Admin: 10/17/21 20:35 Dose: 10 mg Documented by: Escitalopram Oxalate (Escitalopram Oxalate 5 Mg Tablet) 5 mg PO DAILY [facility] Last Admin: 10/18/21 08:00 Dose: 5 mg Documented by: Gabapentin (Gabapentin 600 Mg Tablet) 600 mg PO BID [facility] Last Admin: 10/18/21 08:01 Dose: 600 mg Documented by: Glucose (Glucose Gel 15 Gm Gel..Gram.) 15 gm PO Q15M PRN; Protocol PRN Reason: per Hypoglycemia Standing Ord. Insulin Glargine (Insulin Glargine,Hum.Rec.Anlog 100 Unit/Ml 10 Ml Vial) 30 unit SUBCUT QPM [facility] Insulin Human Lispro (Insulin Lispro 100 Unit/Ml 3 Ml Vial) 0 unit SUBCUT QIDACHS [facility]; Protocol Last Admin: 10/18/21 11:52 Dose: 10 unit Documented by: Magnesium Oxide (Magnesium Oxide 400 Mg Tablet) 200 mg PO DAILY [facility] Last Admin: 10/18/21 08:00 Dose: 200 mg Documented by: Memantine (Memantine Hcl 10 Mg Tablet) 10 mg PO BID [facility] Last Admin: 10/18/21 08:00 Dose: 10 mg Documented by: Metoprolol Tartrate (Metoprolol Tartrate 100 Mg Tablet) 100 mg PO BID [facility]; Protocol Last Admin: 10/18/21 08:00 Dose: 100 mg Documented by: Multivitamins/Vitamin C (Multivitamin Tablet) 1 tab PO DAILY [facility] Last Admin: 10/18/21 08:00 Dose: 1 tab Documented by: Non-Formulary Medication (Glimepiride) 1 tab PO BID [facility] Non-Formulary Medication (Insulin Lispro Protamin-Lispro [Humalog Mix 50-50 Insuln U-100]) 76 unit SUBCUT TID [facility] Omeprazole (Omeprazole 20 Mg Capsule.) 20 mg PO DAILY@0630 [facility] Pharmacy Consult (Consult Rx Perform Med Rec) 1 each MISCELLANE ONCE PRN PRN Reason: Consult order Silver Sulfadiazine (Silver Sulfadiazine 1 % Cream 20 Gm Tube) 1 appl TOPICAL DAILY [facility] Sodium Chloride (0.9 % Sodium Chloride Flush 3 Ml Syringe) 3 ml IVFLUSH [facility] Last Admin: 10/18/21 08:02 Dose: 3 ml Documented by: Home Medications Medication Instructions Recorded Confirmed Last Taken Type apixaban 5 mg tablet (Eliquis) 1 tab PO BID 09/05/21 10/17/21 10/17/21 History citalopram 10 mg tablet 1 tab PO DAILY 09/05/21 10/17/21 10/17/21 History donepezil 10 mg tablet 1 tab PO QPM 09/05/21 10/17/21 10/16/21 History glimepiride 4 mg tablet 1 tab PO BID 09/05/21 10/17/21 10/17/21 History magnesium oxide 1 tab PO DAILY 09/05/21 10/17/21 10/17/21 History memantine 10 mg tablet 1 tab PO BID 09/05/21 10/17/21 10/17/21 History metoprolol tartrate 100 mg tablet 1 tab PO BID 09/05/21 10/17/21 10/17/21 History qjbmrgna-nze-eulki acid 0.4 1 tab PO DAILY 09/05/21 10/17/21 10/17/21 History mg-lycopene 300 mcg-lutein 250 mcg tablet ([employer]ite Senior) pantoprazole 40 mg tablet,delayed 1 tab PO DAILY 09/05/21 10/17/21 10/17/21 History release acetaminophen 500 mg tablet 1 tab PO Q6H PRN 10/07/21 10/17/21 10/17/21 History allopurinol 100 mg tablet 0.5 tab PO DAILY 10/07/21 10/17/21 10/17/21 History carboxymethylcellulose sodium 0.5 1 drp OPHTHALMIC (EYE) Q4-6H PRN 10/07/21 10/17/21 10/17/21 History % eye drops (Refresh Tears) diphenhydramine HCl 25 mg tablet 0.5 tab PO BEDTIME PRN 10/07/21 10/17/21 10/16/21 History (Banophen) insulin glargine 100 unit/mL (3 30 unit SUBCUT QPM 10/07/21 10/17/21 10/16/21 History mL) subcutaneous pen (Lantus Solostar U-100 Insulin) gabapentin 600 mg tablet 1 tab PO BID 10/17/21 10/17/21 10/17/21 History insulin lispro protamine-lispro 76 unit SUBCUT TID 10/17/21 10/17/21 10/17/21 History 100 unit/mL (50-50) subcutaneous susp (Humalog Mix 50-50 Insuln U-100) Physical Exam Vital Signs: Vital Signs: Last Vital Signs Temp 98.3 F 10/18/21 11:24 Pulse 73 10/18/21 11:24 Resp 18 10/18/21 11:24 BP 120/66 10/18/21 11:24 Pulse Ox 94 10/18/21 11:24 Body Mass Index 34.2 Const: General: cooperative HENMT: Head: Yes normal to inspection Ears: hearing grossly normal bilaterally Mouth: Normal oral and palatal mucosa present Eyes: General: appearance normal, both eyes and all related structures Resp: Effort & Inspection: normal respiratory effort Cardio: Rate: regular rate Rhythm: regular rhythm GI: Palpation (GI): Soft to palpation and nontender Extrem: Other: right foot external skin area healing first through fifth toe Results Labs CBC & Chem 7: 10/18/21 06:03 10/18/21 06:03 Labs: Short CBC 10/18/21 Range/Units 06:03 WBC 7.9 (4.8-10.8) X10*3/uL Hgb 15.2 (14.0-18.0) g/dl Hct 42.9 (42.0-52.0) % Plt Count 168 (160-400) X10*3/uL BMP 10/18/21 06:03 Sodium 134 L Potassium 4.5 Chloride 95 L Carbon Dioxide 27 BUN 46 H Creatinine 1.98 H Calcium 9.1 Microbiology Microbiology Results: Microbiology 10/17/21 13:14 Blood - Venous Blood Culture - Preliminary Prelim: GPC Gram Stain only Assessment and Plan (1) Hyperglycemia: Status: Acute (2) Wound of right foot: Status: Acute Wound looks stable and not acutely infected at this time He was treated for prior infection earlier in month and has no osteomyelitis seen on XR Would not give antibiotics at this time Follow Vascular,Dr Frye
[2021-10-18 16:20] LABS: Glucose, Whole Blood 458 mg/dL (60-115)
[2021-10-18] MEDS: Insulin Lispro 100 UNIT/ML 3 ML VIAL 10 UNIT SUBCUT (16:47)
[2021-10-18] MEDS: glipiZIDE 10 MG TABLET PO (16:47)
--- NOTE | 2021-10-18 18:04 | HO.PM.IMPN ---
Subjective Subjective Date of Service: 10/18/21 Interval History: seen in f/u for blisters, ulcer of right foot, doesn't appear infected, no signficant pain Review of Systems no fever or chills no pain in the foot Physical Exam Vital Signs: Vital Signs: Last Vital Signs Temp 97.7 F 10/18/21 15:39 Pulse 80 10/18/21 15:39 Resp 17 10/18/21 15:39 BP 137/68 10/18/21 15:39 Pulse Ox 95 10/18/21 15:39 Body Mass Index 34.2 Const: Other: General: AO X 3, no acute distress Resp: CTA bilateral CVS: S1,S2,RRR GI: +BS, NT, no distention Skin: Neuro: motor grossly intact Psych: appropriate affect Objective Data Active Medications Acetaminophen (Acetaminophen 325 Mg Tablet) 1 mg PO Q6H PRN PRN Reason: pain Allopurinol (Allopurinol 100 Mg Tablet) 50 mg PO DAILY [facility] Last Admin: 10/18/21 08:01 Dose: 50 mg Documented by: JOHNIE Amlodipine Besylate (Amlodipine Besylate 10 Mg Tablet) 10 mg PO DAILY [facility]; Protocol Last Admin: 10/18/21 08:01 Dose: 10 mg Documented by: JOHNIE Apixaban (Apixaban 5 Mg Tablet) 5 mg PO BID [facility] Last Admin: 10/18/21 08:01 Dose: 5 mg Documented by: JOHNIE Artificial Tears (Artificial Tears 15 Ml Drops) 1 drop EYE-BOTH Q4H PRN PRN Reason: DRY EYES Atorvastatin Calcium (Atorvastatin Calcium 40 Mg Tablet) 40 mg PO BEDTIME [facility] Last Admin: 10/17/21 20:35 Dose: 40 mg Documented by: ERIC Dextrose (Dextrose 50 % 25 Gm/50 Ml Vial) 25 gm IVPUSH Q15M PRN; Protocol PRN Reason: per Hypoglycemia Standing Ord. Diphenhydramine HCl (Diphenhydramine Hcl 25 Mg Tablet) 12.5 mg PO BEDTIME PRN PRN Reason: Insomnia Donepezil HCl (Donepezil Hcl 10 Mg Tablet) 10 mg PO BEDTIME [facility] Last Admin: 10/17/21 20:35 Dose: 10 mg Documented by: ERIC Escitalopram Oxalate (Escitalopram Oxalate 5 Mg Tablet) 5 mg PO DAILY [facility] Last Admin: 10/18/21 08:00 Dose: 5 mg Documented by: JOHNIE Gabapentin (Gabapentin 600 Mg Tablet) 600 mg PO BID [facility] Last Admin: 10/18/21 08:01 Dose: 600 mg Documented by: JOHNIE Glipizide (Glipizide 10 Mg Tablet) 10 mg PO BID@0630,1630 [facility] Last Admin: 10/18/21 16:47 Dose: 10 mg Documented by: CEZAR Glucose (Glucose Gel 15 Gm Gel..Gram.) 15 gm PO Q15M PRN; Protocol PRN Reason: per Hypoglycemia Standing Ord. Insulin Glargine (Insulin Glargine,Hum.Rec.Anlog 100 Unit/Ml 10 Ml Vial) 40 unit SUBCUT BEDTIME [facility] Insulin Human Lispro (Insulin Lispro 100 Unit/Ml 3 Ml Vial) 0 unit SUBCUT QIDACHS [facility]; Protocol Last Admin: 10/18/21 16:48 Dose: 10 unit Documented by: CEZAR Insulin Human Lispro (Insulin Lispro 100 Unit/Ml 3 Ml Vial) 10 unit SUBCUT TIDAC [facility] Last Admin: 10/18/21 16:47 Dose: 10 unit Documented by: CEZAR Magnesium Oxide (Magnesium Oxide 400 Mg Tablet) 200 mg PO DAILY [facility] Last Admin: 10/18/21 08:00 Dose: 200 mg Documented by: JOHNIE Memantine (Memantine Hcl 10 Mg Tablet) 10 mg PO BID [facility] Last Admin: 10/18/21 08:00 Dose: 10 mg Documented by: JOHNIE Metoprolol Tartrate (Metoprolol Tartrate 100 Mg Tablet) 100 mg PO BID [facility]; Protocol Last Admin: 10/18/21 08:00 Dose: 100 mg Documented by: JOHNIE Multivitamins/Vitamin C (Multivitamin Tablet) 1 tab PO DAILY [facility] Last Admin: 10/18/21 08:00 Dose: 1 tab Documented by: JOHNIE Omeprazole (Omeprazole 20 Mg Capsule.Dr) 20 mg PO DAILY@0630 [facility] Pharmacy Consult (Consult Rx Perform Med Rec) 1 each MISCELLANE ONCE PRN PRN Reason: Consult order Silver Sulfadiazine (Silver Sulfadiazine 1 % Cream 20 Gm Tube) 1 appl TOPICAL DAILY [facility] Last Admin: 10/18/21 15:07 Dose: Not Given Documented by: JOHNIE Non-Admin Reason: Med Not Available Sodium Chloride (0.9 % Sodium Chloride Flush 3 Ml Syringe) 3 ml IVFLUSH QSHIFT [facility] Last Admin: 10/18/21 16:47 Dose: 3 ml Documented by: CEZAR Labs CBC & Chem 7: 10/18/21 06:03 10/18/21 06:03 Labs: Laboratory Results - last 24 hr 10/17/21 10/17/21 10/17/21 13:13 18:07 19:52 MCV MCH MCHC RDW Plt Count MPV Absolute Nucleated RBC Nucleated RBC % (auto) Anion Gap BUN 55 H D Creatinine 2.69 H Estim Creat Clear Calc Estimated GFR POC Glucose 322 H 455 H* Random Glucose Calcium 10/17/21 10/18/21 10/18/21 23:26 04:15 06:03 MCV 99.3 H MCH 35.2 H MCHC 35.4 RDW 12.0 Plt Count 168 MPV 12.4 Absolute Nucleated RBC 0.000 Nucleated RBC % (auto) 0.0 Anion Gap BUN Creatinine Estim Creat Clear Calc Estimated GFR POC Glucose 425 H* 333 H Random Glucose Calcium 10/18/21 10/18/21 10/18/21 06:03 07:16 11:02 MCV MCH MCHC RDW Plt Count MPV Absolute Nucleated RBC Nucleated RBC % (auto) Anion Gap 17 BUN 46 H Creatinine 1.98 H Estim Creat Clear Calc 42.6 Estimated GFR 33 POC Glucose 319 H 399 H* Random Glucose 349 H D Calcium 9.1 10/18/21 16:14 MCV MCH MCHC RDW Plt Count MPV Absolute Nucleated RBC Nucleated RBC % (auto) Anion Gap BUN Creatinine Estim Creat Clear Calc Estimated GFR POC Glucose 458 H* Random Glucose Calcium Microbiology Microbiology Results: Microbiology 10/17/21 14:10 Blood Culture - Preliminary Blood - Venous No growth after 24 hours. 10/17/21 13:14 Blood Culture - Preliminary Blood - Venous Prelim: GPC Gram Stain only Assessment and Plan (1) Diabetic foot infection: Status: Acute (2) Renal failure (ARF), acute on chronic: Status: Acute Assessment and Plan: ? 76-year-old Divehi-speaking male presenting to the ER with elevated blood sugars.? He lives with the patient's son and he reported that his blood sugars have been over 500.? He has been recently treated for a diabetic foot infection to his right foot and this infection seems to be improving significantly. Difficulty to control diabetes, increase Lantus, add pre meal insulin and sliding scale Diabetic foot infection. Had been on doxycycline at home--and infection resolved. No need for further Abx according to myself, ID and surgery JAMES on CKD. Likely from dehydration and hypoglycemia received 2 L of IV fluids in the ER , improved, recheck tomorrow Hyponatremia. sodium likely Pseudo from hyperglycemia Hypertension. ? controlled, no change DVT prophylaxis with heparin Quality Stroke Does the patient have a stroke diagnosis?: No VTE Prior VTE?: No VTE Risk Level:: Medical - moderate - high VTE Device Contraindication: N/A - Device Ordered VTE Drug Contraindication: N/A - Med Ordered
[2021-10-18 18:41] LABS: Glucose, Whole Blood 490 mg/dL (60-115)
[2021-10-18] MEDS: Insulin Glargine,Hum.rec.anlog 100 UNIT/ML 10 ML VIAL 40 UNIT SUBCUT (19:02)
[2021-10-18] MEDS: Insulin Regular, Human 100 UNIT/ML 3 ML VIAL 10 UNIT IVPUSH (19:11)
[2021-10-18 20:15] LABS: Glucose, Whole Blood 380 mg/dL (60-115)
[2021-10-18] MEDS: Donepezil HCl 10 MG TABLET PO (20:48)
[2021-10-18] MEDS: Atorvastatin Calcium 40 MG TABLET PO (20:49)
[2021-10-18 23:02] LABS: Glucose, Whole Blood 288 mg/dL (60-115)
[2021-10-18 23:20] LABS: Anion Gap 17 (12-20); Blood Urea Nitrogen 45 mg/dL (9-16); Calcium 8.9 mg/dL (8.4-10.2); Carbon Dioxide 22 mmol/L (22-29); Chloride 100 mmol/L (96-108); Estimated Glomerular Filt Rate 32; Glucose Random 309 mg/dL (60-115); Potassium 5.3 mmol/L (3.3-5.1); Sodium 134 mmol/L (135-145)
--- NOTE | 2021-10-18 23:52 | PC.NURSE ---
blood sugar [phone], tonight. Dr Ramirez ordered Regular insulin 10 units IV and was administered at 19:15. Blood sugar after 1 hrs 380, Dr Clark was notified, scheduled Lispro per sliding scale 10 units SC administered. BMP ordered,and results reported to DR Calrk
[2021-10-19] VITALS (9 sets, daily range): BP systolic 135–160; BP diastolic 70–96; PULSE 62–73; RESP 16–18; TEMP 36.1–36.7; O2SAT 92–98
[2021-10-19] MEDS: 0.9 % Sodium Chloride Flush 3 ML SYRINGE IVFLUSH ×3 (01:29→16:58)
[2021-10-19] MEDS: Omeprazole 20 MG CAPSULE.DR PO (06:35)
[2021-10-19] MEDS: glipiZIDE 10 MG TABLET PO ×2 (06:35→16:58)
[2021-10-19 07:27] LABS: Glucose, Whole Blood 216 mg/dL (60-115)
[2021-10-19] MEDS: Insulin Lispro 100 UNIT/ML 3 ML VIAL SUBCUT ×4 (08:07→22:03)
[2021-10-19] MEDS: amLODIPine Besylate 10 MG TABLET PO (08:08)
[2021-10-19] MEDS: Insulin Lispro 100 UNIT/ML 3 ML VIAL 10 UNIT SUBCUT ×3 (08:08→16:58)
[2021-10-19] MEDS: Memantine HCl 10 MG TABLET PO ×2 (08:08→22:03)
[2021-10-19] MEDS: Apixaban 5 MG TABLET PO ×2 (08:08→22:03)
[2021-10-19] MEDS: Escitalopram Oxalate 5 MG TABLET PO (08:09)
[2021-10-19] MEDS: Metoprolol Tartrate 100 MG TABLET PO ×2 (08:09→22:03)
[2021-10-19] MEDS: Gabapentin 600 MG TABLET PO ×2 (08:09→22:03)
[2021-10-19] MEDS: Multivitamin TABLET 1 TAB PO (08:09)
[2021-10-19] MEDS: allopurinoL 100 MG TABLET 50 MG PO (08:09)
[2021-10-19] MEDS: Magnesium Oxide 400 MG TABLET 200 MG PO (08:10)
[2021-10-19] MEDS: Silver Sulfadiazine 1 % Cream 20 GM TUBE 1 APPL TOPICAL (08:16)
--- NOTE | 2021-10-19 10:55 | PM.CNGS ---
History of Present Illness Consult details Consult date: 10/19/21 Reason for consult: wound care Narrative: Very pleasant 76-year-old gentleman with a history of renal insufficiency and diabetes presented with nonhealing right foot ulcers. It is difficult to ascertain the duration of these ulcers. It has been painful for some time. He has complete motor and sensation intact. He had no difficulty ambulating. He now presents to us for vascular evaluation. Review of Systems Review of Systems: Yes all other systems are reviewed and are negative Constitutional: Constitutional: Reports no additional constitutional complaints ENT: Reports Normal hearing present Cardiovascular: Cardiovascular: Denies chest pain, Denies chest pain at rest, Denies chest pain with activity and Denies pedal edema Respiratory: Respiratory: Denies cough Gastrointestinal: Gastrointestinal: Denies abdominal pain Musculoskeletal: Musculoskeletal: Denies abnormal gait, Denies muscle cramps and Denies radiating pain into limb Integumentary/Breasts: Skin/Breast: Denies skin ulcer and Denies wounds Neurologic: Reports Normal hearing present and Denies abnormal gait Psychiatric: Psychiatric: Reports no additional psychiatric complaints PMFSH Past Medical History Medical History Alzheimer's dementia Atrial fibrillation Diabetes Heart failure with preserved ejection fraction HLD (hyperlipidemia) HTN (hypertension) Kidney failure NSTEMI (non-ST elevated myocardial infarction) Family History Family history: reviewed and not pertinent Surgical History Surgical History No pertinent past surgical history Social History Social History Household Members: Children Housing: Apartment Do you presently have visiting nurse or other home services: No Alcohol intake: never Patient Tobacco Use Status: Never used Tobacco Advance Directives Date on File: 09/06/21 service: No Current occupational status: retired Meds Allergies Allergy/AdvReac Type Severity Reaction Status Date / Time No Known Allergies Allergy Verified 09/05/21 20:27 Active Medications: Current Medications Acetaminophen (Acetaminophen 325 Mg Tablet) 1 mg PO Q6H PRN PRN Reason: pain Allopurinol (Allopurinol 100 Mg Tablet) 50 mg PO DAILY [facility] Last Admin: 10/19/21 08:09 Dose: 50 mg Documented by: Amlodipine Besylate (Amlodipine Besylate 10 Mg Tablet) 10 mg PO DAILY [facility]; Protocol Last Admin: 10/19/21 08:08 Dose: 10 mg Documented by: Apixaban (Apixaban 5 Mg Tablet) 5 mg PO BID [facility] Last Admin: 10/19/21 08:08 Dose: 5 mg Documented by: Artificial Tears (Artificial Tears 15 Ml Drops) 1 drop EYE-BOTH Q4H PRN PRN Reason: DRY EYES Atorvastatin Calcium (Atorvastatin Calcium 40 Mg Tablet) 40 mg PO BEDTIME [facility] Last Admin: 10/18/21 20:49 Dose: 40 mg Documented by: Dextrose (Dextrose 50 % 25 Gm/50 Ml Vial) 25 gm IVPUSH Q15M PRN; Protocol PRN Reason: per Hypoglycemia Standing Ord. Diphenhydramine HCl (Diphenhydramine Hcl 25 Mg Tablet) 12.5 mg PO BEDTIME PRN PRN Reason: Insomnia Donepezil HCl (Donepezil Hcl 10 Mg Tablet) 10 mg PO BEDTIME [facility] Last Admin: 10/18/21 20:48 Dose: 10 mg Documented by: Escitalopram Oxalate (Escitalopram Oxalate 5 Mg Tablet) 5 mg PO DAILY [facility] Last Admin: 10/19/21 08:09 Dose: 5 mg Documented by: Gabapentin (Gabapentin 600 Mg Tablet) 600 mg PO BID [facility] Last Admin: 10/19/21 08:09 Dose: 600 mg Documented by: Glipizide (Glipizide 10 Mg Tablet) 10 mg PO BID@0630,1630 [facility] Last Admin: 10/19/21 06:35 Dose: 10 mg Documented by: Glucose (Glucose Gel 15 Gm Gel..Gram.) 15 gm PO Q15M PRN; Protocol PRN Reason: per Hypoglycemia Standing Ord. Insulin Glargine (Insulin Glargine,Hum.Rec.Anlog 100 Unit/Ml 10 Ml Vial) 40 unit SUBCUT BEDTIME [facility] Last Admin: 10/18/21 19:02 Dose: 40 unit Documented by: Insulin Human Lispro (Insulin Lispro 100 Unit/Ml 3 Ml Vial) 0 unit SUBCUT QIDACHS [facility]; Protocol Last Admin: 10/19/21 08:07 Dose: 4 unit Documented by: Insulin Human Lispro (Insulin Lispro 100 Unit/Ml 3 Ml Vial) 10 unit SUBCUT TIDAC [facility] Last Admin: 10/19/21 08:08 Dose: 10 unit Documented by: Magnesium Oxide (Magnesium Oxide 400 Mg Tablet) 200 mg PO DAILY [facility] Last Admin: 10/19/21 08:10 Dose: 200 mg Documented by: Memantine (Memantine Hcl 10 Mg Tablet) 10 mg PO BID [facility] Last Admin: 10/19/21 08:08 Dose: 10 mg Documented by: Metoprolol Tartrate (Metoprolol Tartrate 100 Mg Tablet) 100 mg PO BID [facility]; Protocol Last Admin: 10/19/21 08:09 Dose: 100 mg Documented by: Multivitamins/Vitamin C (Multivitamin Tablet) 1 tab PO DAILY [facility] Last Admin: 10/19/21 08:09 Dose: 1 tab Documented by: Omeprazole (Omeprazole 20 Mg Capsule.Dr) 20 mg PO DAILY@0630 [facility] Last Admin: 10/19/21 06:35 Dose: 20 mg Documented by: Pharmacy Consult (Consult Rx Perform Med Rec) 1 each MISCELLANE ONCE PRN PRN Reason: Consult order Silver Sulfadiazine (Silver Sulfadiazine 1 % Cream 20 Gm Tube) 1 appl TOPICAL DAILY [facility] Last Admin: 10/19/21 08:16 Dose: 1 appl Documented by: Sodium Chloride (0.9 % Sodium Chloride Flush 3 Ml Syringe) 3 ml IVFLUSH QSHIFT [facility] Last Admin: 10/19/21 08:08 Dose: 3 ml Documented by: Home Medications Medication Instructions Recorded Confirmed Last Taken Type apixaban 5 mg tablet (Eliquis) 1 tab PO BID 09/05/21 10/17/21 10/17/21 History citalopram 10 mg tablet 1 tab PO DAILY 09/05/21 10/17/21 10/17/21 History donepezil 10 mg tablet 1 tab PO QPM 09/05/21 10/17/21 10/16/21 History glimepiride 4 mg tablet 1 tab PO BID 09/05/21 10/17/21 10/17/21 History magnesium oxide 1 tab PO DAILY 09/05/21 10/17/21 10/17/21 History memantine 10 mg tablet 1 tab PO BID 09/05/21 10/17/21 10/17/21 History metoprolol tartrate 100 mg tablet 1 tab PO BID 09/05/21 10/17/21 10/17/21 History mtxdmbdt-mki-szort acid 0.4 1 tab PO DAILY 1010/17/21 10/17/21 History mg-lycopene 300 mcg-lutein 250 mcg tablet (CertaVite Senior) pantoprazole 40 mg tablet,delayed 1 tab PO DAILY 09/05/21 10/17/21 10/17/21 History release acetaminophen 500 mg tablet 1 tab PO Q6H PRN 10/07/21 10/17/21 10/17/21 History allopurinol 100 mg tablet 0.5 tab PO DAILY 10/07/21 10/17/21 10/17/21 History carboxymethylcellulose sodium 0.5 1 drp OPHTHALMIC (EYE) Q4-6H PRN 10/07/21 10/17/21 10/17/21 History % eye drops (Refresh Tears) diphenhydramine HCl 25 mg tablet 0.5 tab PO BEDTIME PRN 10/07/21 10/17/21 10/16/21 History (Banophen) insulin glargine 100 unit/mL (3 30 unit SUBCUT QPM 10/07/21 10/17/21 10/16/21 History mL) subcutaneous pen (Lantus Solostar U-100 Insulin) gabapentin 600 mg tablet 1 tab PO BID 10/17/21 10/17/21 10/17/21 History insulin lispro protamine-lispro 76 unit SUBCUT TID 10/17/21 10/17/21 10/17/21 History 100 unit/mL (50-50) subcutaneous susp (Humalog Mix 50-50 Insuln U-100) Physical Exam Vital Signs: Vital Signs: Last Vital Signs Temp 97.2 F 10/19/21 08:00 Pulse 65 10/19/21 08:09 Resp 18 10/19/21 08:00 BP 160/96 H 10/19/21 08:09 Pulse Ox 92 10/19/21 08:00 Body Mass Index 34.2 Const: General: cooperative, healthy appearing and comfortable Orientation/consciousness: oriented to person, oriented to place and oriented to time HENMT: Head: Yes normal to inspection Neck: Neck: Yes normal visual inspection Carotids: no bruits Chest: Chest palpation & inspection: normal inspection of the chest Resp: Effort & Inspection: normal respiratory effort and able to speak in complete sentences Auscultation: clear to auscultation bilaterally, no crackles, no rales, no rhonchi and no wheezes Cardio: Rate: regular rate Rhythm: regular rhythm Heart sounds: S1 normal heart sound present and S2 normal heart sound present Bruits: no carotid bruits Peripheral pulses: Peripheral pulses 2+ throughout GI: Inspection: Yes normal to inspection Skin: Other: Right foot ulcerations toes 1 through 5. Left foot within normal limits no evidence of ulceration Wounds: no wounds Hair: normal Neuro: General: oriented to person, oriented to place and oriented to time Cranial nerves: Yes CN's II-XII intact bilaterally and Yes Normal hearing present Cognition (Neuro): normal cognition Motor exam (neuro): 5/5 motor strength present throughout Extrem: Other: venous exam: No significant superficial varicosities or spider telangiectasias, minimal edema General: No clubbing, No cyanosis and No edema Psych: Appearance: grossly normal Mental Status: mental status grossly normal Speech and movement: Normal speech and movement present Results Labs Result diagrams: 10/18/21 06:03 10/18/21 22:21 Labs: Abnormal lab results 10/18/21 10/18/21 10/18/21 Range/Units 11:02 16:14 18:38 Sodium (135-145) mmol/L Potassium (3.3-5.1) mmol/L BUN (9-16) mg/dL Creatinine (0.5-1.4) mg/dL POC Glucose 399 H* 458 H* 490 H* (60-115) mg/dL Random Glucose (60-115) mg/dL 10/18/21 10/18/21 10/18/21 Range/Units 20:12 22:21 22:58 Sodium 134 L (135-145) mmol/L Potassium 5.3 H (3.3-5.1) mmol/L BUN 45 H (9-16) mg/dL Creatinine 2.06 H (0.5-1.4) mg/dL POC Glucose 380 H* 288 H (60-115) mg/dL Random Glucose 309 H (60-115) mg/dL 10/19/21 Range/Units 07:23 Sodium (135-145) mmol/L Potassium (3.3-5.1) mmol/L BUN (9-16) mg/dL Creatinine (0.5-1.4) mg/dL POC Glucose 216 H (60-115) mg/dL Random Glucose (60-115) mg/dL [facility] 10/18/21 22:21 Sodium 134 L Potassium 5.3 H Chloride 100 Carbon Dioxide 22 BUN 45 H Creatinine 2.06 H Calcium 8.9 All other labs normal. Assessment and Plan (1) Trash foot: Status: Acute This patient has unusual ulcers of toes 1 through 5. The concerning part is that he does have palpable pulses. They are newer in onset. And they are black and and discolored. He may have a thromboembolic event. Ideally would like to get a CTA but due to his renal functions will get noninvasive arterial testing. He will require formal anticoagulation until the source of this thromboembolic event is ascertained. At the current time would recommend dry protective dressings. Will follow with you. Thank you for allowing us to assist in his care. Procedures Date of Service Date of Service: 10/19/21
[2021-10-19 11:07] LABS: Glucose, Whole Blood 221 mg/dL (60-115)
--- NOTE | 2021-10-19 13:00 | CA_ITS ---
Transthoracic Echocardiogram Patient (Last, First, Middle): [place] Oquendo Angel Gender: Male Date of : 1945 Age: 76 Procedure Date: 10/19/2021 Procedure Type: Transthoracic E[place] [facility] [place]: 185.42 cm Weight: 113.4 kg BSA: 2.37 m2 Heart Rate: bpm BP: 135 / 86 mmHg Observer Helper: THIERRY Referring MD: Chidi Ramirez MD Outside Sales Inspector: Luke Chavarria MD Symptoms: embolism to toes, assess LV and RV function Study Quality: Fair ECG Rhythm: Atrial Fibrillation Conclusions: - 1. Normal LV systolic function with mild LVH 2. Mildly dilated left atrium 3. Normal cardiac valvular Doppler 4. Normal RV systolic pressure 5. No pericardial effusion Findings Left Ventricle Normal left ventricular size and systolic function. There is mildly increased left ventricular wall thickness. The visually estimated ejection fraction is between 55-60%. Spectral Doppler is indicative of an impaired relaxation filling pattern. E/E prime ratio is between 8 and 15 consistent with indeterminate filling pressures. Right Ventricle Normal right ventricular cavity size and systolic function. Atria The left atrium is mildly dilated. Interatrial shunt cannot be excluded. The right atrium was not well visualized. Aortic Valve The aortic valve was not well visualized. There is no aortic valve stenosis. There is no aortic valve regurgitation. Mitral Valve Likely normal mitral valve structure and function. There is trace mitral valve regurgitation. There is no mitral valve stenosis. Pulmonic Valve The pulmonic valve was not well visualized. Tricuspid Valve There is no evidence of pulmonary hypertension. Great Vessels All visible segments of the aorta are normal in size. The pulmonary artery was not well visualized. Venous The inferior vena cava is normal in size and collapses greater than 50% with inspiration. Pericardium/Pleural There is no evidence of pericardial effusion. Prior Study Comparison No significant change compared to prior study dated: 09/07/2021. Measurements 2D Linear Measurements IVSd: 1.25 0.6-0.9/0.6-1.0 cm LVIDd: 5.31 3.9-5.3/4.2-5.9 cm LVIDd Index: 2.24 2.4-3.2/2.2-3.1 cm/m2 LVIDs: 3.54 2.0-3.6 cm LVPWd: 1.28 0.7-1.1 cm LV Mass: 345.46 67-162/88-224 g LV Mass Index: 145.76 43-95/49-115 g/m2 2D Systolic Function EF 4C: 61.60 >55% EF 2C: 60.90 >55% EF BiP: 58.40 >55% Mitral Valve MV Pk E: 0.96 MV Decel Time: 188.00 E'Lateral: 9.57 E'Medial: 8.59 E/E' Med: 11.10 E/E' Lat: 10.00 PHT: 55.00 MVA PHT: 4.00 Decel Victoria: 5.08 Diastolic Function MV Pk E: 0.96 E'Medial: 8.59 E/E' Med: 11.10 E' Laterial: 9.57 E/E' Lat: 10.00 Tricuspid Valve TR Pk Fuentes: 2.25 TR Pk Grad: 20.00 RA Press: 3.00 RVSP: 23.00 Updated in Other Vendor System with Status of Final Luke Chavarria MD electronically signed on 10/19/2021 4:23:23 PM with status of Final
[2021-10-19 16:31] LABS: Glucose, Whole Blood 272 mg/dL (60-115)
--- NOTE | 2021-10-19 18:18 | HO.PM.IMPN ---
Subjective Subjective Date of Service: 10/19/21 Interval History: seen in f/u for blisters, ulcer of right foot, doesn't appear infected, no signficant pain, hyperglycemia is better Review of Systems no fever or chills no pain in the foot Physical Exam Vital Signs: Vital Signs: Last Vital Signs Temp 98 F 10/19/21 15:33 Pulse 62 10/19/21 15:33 Resp 18 10/19/21 15:33 BP 140/78 H 10/19/21 15:33 Pulse Ox 92 10/19/21 15:33 Body Mass Index 34.2 Const: Other: General: AO X 3, no acute distress Resp: CTA bilateral CVS: S1,S2,RRR GI: +BS, NT, no distention Skin: Neuro: motor grossly intact Psych: appropriate affect Objective Data Active Medications Acetaminophen (Acetaminophen 325 Mg Tablet) 1 mg PO Q6H PRN PRN Reason: pain Allopurinol (Allopurinol 100 Mg Tablet) 50 mg PO DAILY [facility] Last Admin: 10/19/21 08:09 Dose: 50 mg Documented by: ZAHRAA Amlodipine Besylate (Amlodipine Besylate 10 Mg Tablet) 10 mg PO DAILY [facility]; Protocol Last Admin: 10/19/21 08:08 Dose: 10 mg Documented by: ZAHRAA Apixaban (Apixaban 5 Mg Tablet) 5 mg PO BID [facility] Last Admin: 10/19/21 08:08 Dose: 5 mg Documented by: ZAHRAA Artificial Tears (Artificial Tears 15 Ml Drops) 1 drop EYE-BOTH Q4H PRN PRN Reason: DRY EYES Atorvastatin Calcium (Atorvastatin Calcium 40 Mg Tablet) 40 mg PO BEDTIME [facility] Last Admin: 10/18/21 20:49 Dose: 40 mg Documented by: CEZAR Dextrose (Dextrose 50 % 25 Gm/50 Ml Vial) 25 gm IVPUSH Q15M PRN; Protocol PRN Reason: per Hypoglycemia Standing Ord. Diphenhydramine HCl (Diphenhydramine Hcl 25 Mg Tablet) 12.5 mg PO BEDTIME PRN PRN Reason: Insomnia Donepezil HCl (Donepezil Hcl 10 Mg Tablet) 10 mg PO BEDTIME [facility] Last Admin: 10/18/21 20:48 Dose: 10 mg Documented by: CEZAR Escitalopram Oxalate (Escitalopram Oxalate 5 Mg Tablet) 5 mg PO DAILY [facility] Last Admin: 10/19/21 08:09 Dose: 5 mg Documented by: ZAHRAA Gabapentin (Gabapentin 600 Mg Tablet) 600 mg PO BID [facility] Last Admin: 10/19/21 08:09 Dose: 600 mg Documented by: ZAHRAA Glipizide (Glipizide 10 Mg Tablet) 10 mg PO BID@0630,1630 [facility] Last Admin: 10/19/21 16:58 Dose: 10 mg Documented by: ZAHRAA Glucose (Glucose Gel 15 Gm Gel..Gram.) 15 gm PO Q15M PRN; Protocol PRN Reason: per Hypoglycemia Standing Ord. Insulin Glargine (Insulin Glargine,Hum.Rec.Anlog 100 Unit/Ml 10 Ml Vial) 48 unit SUBCUT BEDTIME [facility] Insulin Human Lispro (Insulin Lispro 100 Unit/Ml 3 Ml Vial) 0 unit SUBCUT QIDACHS [facility]; Protocol Last Admin: 10/19/21 16:57 Dose: 6 unit Documented by: ZAHRAA Insulin Human Lispro (Insulin Lispro 100 Unit/Ml 3 Ml Vial) 10 unit SUBCUT TIDAC [facility] Last Admin: 10/19/21 16:58 Dose: 10 unit Documented by: ZAHRAA Magnesium Oxide (Magnesium Oxide 400 Mg Tablet) 200 mg PO DAILY [facility] Last Admin: 10/19/21 08:10 Dose: 200 mg Documented by: ZAHRAA Memantine (Memantine Hcl 10 Mg Tablet) 10 mg PO BID [facility] Last Admin: 10/19/21 08:08 Dose: 10 mg Documented by: ZAHRAA Metoprolol Tartrate (Metoprolol Tartrate 100 Mg Tablet) 100 mg PO BID [facility]; Protocol Last Admin: 10/19/21 08:09 Dose: 100 mg Documented by: ZAHRAA Multivitamins/Vitamin C (Multivitamin Tablet) 1 tab PO DAILY [facility] Last Admin: 10/19/21 08:09 Dose: 1 tab Documented by: ZAHRAA Omeprazole (Omeprazole 20 Mg Capsule.) 20 mg PO DAILY@0630 [facility] Last Admin: 10/19/21 06:35 Dose: 20 mg Documented by: FLAKO Pharmacy Consult (Consult Rx Perform Med Rec) 1 each MISCELLANE ONCE PRN PRN Reason: Consult order Silver Sulfadiazine (Silver Sulfadiazine 1 % Cream 20 Gm Tube) 1 appl TOPICAL DAILY [facility] Last Admin: 10/19/21 08:16 Dose: 1 appl Documented by: ZAHRAA Sodium Chloride (0.9 % Sodium Chloride Flush 3 Ml Syringe) 3 ml IVFLUSH QSHIFT [facility] Last Admin: 10/19/21 16:58 Dose: 3 ml Documented by: ZAHRAA Labs CBC & Chem 7: 10/18/21 06:03 10/18/21 22:21 Labs: Laboratory Results - last 24 hr 10/18/21 10/18/21 10/18/21 18:38 20:12 22:21 Anion Gap 17 Estim Creat Clear Calc 41.0 Estimated GFR 32 POC Glucose 490 H* 380 H* Random Glucose 309 H Calcium 8.9 10/18/21 10/19/21 10/19/21 22:58 07:23 10:49 Anion Gap Estim Creat Clear Calc Estimated GFR POC Glucose 288 H 216 H 221 H Random Glucose Calcium 10/19/21 16:27 Anion Gap Estim Creat Clear Calc Estimated GFR POC Glucose 272 H Random Glucose Calcium Microbiology Microbiology Results: Microbiology 10/17/21 14:10 Blood Culture - Preliminary Blood - Venous No growth after 48 hours. 10/17/21 13:14 Blood Culture - Preliminary Blood - Venous Gram positive cocci Assessment and Plan (1) Trash foot: Status: Acute (2) PAD (peripheral artery disease): Status: Acute Assessment and Plan: ? 76-year-old Mongolian-speaking male presenting to the ER with elevated blood sugars.? He lives with the patient's son and he reported that his blood sugars have been over 500.? He has been recently treated for a diabetic foot infection to his right foot and this infection seems to be improving significantly. Diabetes with hyperglycemia, sugar levels are better. Increasing Lantus to 48, pre meal insulin 10, SSI, glipizide 10 bid Diabetic foot infection. Had been on doxycycline at home--and infection resolved. No need for further Abx according to myself, ID and surgery There is concern of possible embolism, so getting limitte echo to rule out clots and is on Dr. wilbert evaluated and will torrie for outpatient follow up JAMES on CKD--increase with IVF, will additional fluid today given that Creatine is going up Hyponatremia. sodium likely Pseudo from hyperglycemia Hypertension. ? controlled, no change DVT prophylaxis with heparin Quality Stroke Does the patient have a stroke diagnosis?: No VTE Prior VTE?: No VTE Risk Level:: Medical - moderate - high VTE Device Contraindication: N/A - Device Ordered VTE Drug Contraindication: N/A - Med Ordered
[2021-10-19 21:45] LABS: Glucose, Whole Blood 325 mg/dL (60-115)
[2021-10-19] MEDS: Donepezil HCl 10 MG TABLET PO (22:03)
[2021-10-19] MEDS: Atorvastatin Calcium 40 MG TABLET PO (22:03)
[2021-10-19] MEDS: Insulin Glargine,Hum.rec.anlog 100 UNIT/ML 10 ML VIAL 48 UNIT SUBCUT (22:04)
[2021-10-20] VITALS (8 sets, daily range): BP systolic 117–164; BP diastolic 64–90; PULSE 63–73; RESP 16–18; TEMP 36.3–37; O2SAT 93–96
[2021-10-20] MEDS: 0.9 % Sodium Chloride Flush 3 ML SYRINGE IVFLUSH ×2 (00:20→07:59)
[2021-10-20 06:20] LABS: Glucose, Whole Blood 283 mg/dL (60-115)
[2021-10-20] MEDS: Omeprazole 20 MG CAPSULE.DR PO (06:30)
[2021-10-20] MEDS: glipiZIDE 10 MG TABLET PO ×2 (06:30→16:46)
[2021-10-20 07:23] LABS: Glucose, Whole Blood 280 mg/dL (60-115)
[2021-10-20] MEDS: Insulin Lispro 100 UNIT/ML 3 ML VIAL SUBCUT ×4 (07:57→20:36)
[2021-10-20] MEDS: Multivitamin TABLET 1 TAB PO (07:58)
[2021-10-20] MEDS: Magnesium Oxide 400 MG TABLET 200 MG PO (07:58)
[2021-10-20] MEDS: Escitalopram Oxalate 5 MG TABLET PO (07:58)
[2021-10-20] MEDS: Memantine HCl 10 MG TABLET PO ×2 (07:58→20:36)
[2021-10-20] MEDS: Insulin Lispro 100 UNIT/ML 3 ML VIAL 10 UNIT SUBCUT (07:58)
[2021-10-20] MEDS: Apixaban 5 MG TABLET PO ×2 (07:58→20:36)
[2021-10-20] MEDS: amLODIPine Besylate 10 MG TABLET PO (07:59)
[2021-10-20] MEDS: Metoprolol Tartrate 100 MG TABLET PO ×2 (07:59→20:37)
[2021-10-20] MEDS: Gabapentin 600 MG TABLET PO ×2 (07:59→20:36)
[2021-10-20] MEDS: allopurinoL 100 MG TABLET 50 MG PO (07:59)
[2021-10-20 10:11] LABS: Estimated Average Glucose 229 mg/dL; Hemoglobin A1c % 9.6 %
[2021-10-20 10:13] LABS: Anion Gap 15 (12-20); Blood Urea Nitrogen 42 mg/dL (9-16); Calcium 9.3 mg/dL (8.4-10.2); Carbon Dioxide 29 mmol/L (22-29); Chloride 97 mmol/L (96-108); Creatinine Clr Calc Pharmacy 42.6; Estimated Glomerular Filt Rate 33; Glucose Random 363 mg/dL (60-115); Potassium 4.9 mmol/L (3.3-5.1); Sodium 136 mmol/L (135-145)
[2021-10-20 11:21] LABS: Glucose, Whole Blood 295 mg/dL (60-115)
--- NOTE | 2021-10-20 11:36 | HO.PM.IMPN ---
Subjective Subjective Date of Service: 10/20/21 Interval History: patient seen and examined at bedside with the help of ornamental machine operator. His son and hlidkhuj-to-bna were both present in a spoke to them and discuss patient's case in detail. Specifically his insulin regimen and his hyperglycemia. Patient himself denies any chest pain, no abdominal pain nausea or vomiting, no diarrhea constipation, no urinary symptoms and no lower extremity edema. Review of Systems Review of Systems: Yes all other systems are reviewed and are negative Physical Exam Vital Signs: Vital Signs: Last Vital Signs Temp 98.6 F 10/20/21 08:00 Pulse 73 10/20/21 08:00 Resp 18 10/20/21 08:00 BP 141/67 H 10/20/21 08:00 Pulse Ox 95 10/20/21 08:00 Body Mass Index 34.2 Const: General: cooperative and no acute distress Orientation/consciousness: patient oriented x3 Resp: Effort & Inspection: normal respiratory effort, able to speak in complete sentences and abnormal respiratory pattern Auscultation: clear to auscultation bilaterally Cardio: Rate: regular rate Rhythm: regular rhythm GI: Palpation (GI): Soft to palpation Auscultation: normal bowel sounds Skin: Other: Right digit 1-5 ulcers, no changes, mildly tender Neuro: General: patient oriented x3 Extrem: General: Yes normal to inspection and Yes no pedal edema Objective Data Active Medications Acetaminophen (Acetaminophen 325 Mg Tablet) 1 mg PO Q6H PRN PRN Reason: pain Allopurinol (Allopurinol 100 Mg Tablet) 50 mg PO DAILY [facility] Last Admin: 10/20/21 07:59 Dose: 50 mg Documented by: JOHNIE Amlodipine Besylate (Amlodipine Besylate 10 Mg Tablet) 10 mg PO DAILY [facility]; Protocol Last Admin: 10/20/21 07:59 Dose: 10 mg Documented by: JOHNIE Apixaban (Apixaban 5 Mg Tablet) 5 mg PO BID [facility] Last Admin: 10/20/21 07:58 Dose: 5 mg Documented by: JOHNIE Artificial Tears (Artificial Tears 15 Ml Drops) 1 drop EYE-BOTH Q4H PRN PRN Reason: DRY EYES Atorvastatin Calcium (Atorvastatin Calcium 40 Mg Tablet) 40 mg PO BEDTIME [facility] Last Admin: 10/19/21 22:03 Dose: 40 mg Documented by: CEZAR Dextrose (Dextrose 50 % 25 Gm/50 Ml Vial) 25 gm IVPUSH Q15M PRN; Protocol PRN Reason: per Hypoglycemia Standing Ord. Diphenhydramine HCl (Diphenhydramine Hcl 25 Mg Tablet) 12.5 mg PO BEDTIME PRN PRN Reason: Insomnia Donepezil HCl (Donepezil Hcl 10 Mg Tablet) 10 mg PO BEDTIME [facility] Last Admin: 10/19/21 22:03 Dose: 10 mg Documented by: CEZAR Escitalopram Oxalate (Escitalopram Oxalate 5 Mg Tablet) 5 mg PO DAILY [facility] Last Admin: 10/20/21 07:58 Dose: 5 mg Documented by: JOHNIE Gabapentin (Gabapentin 600 Mg Tablet) 600 mg PO BID [facility] Last Admin: 10/20/21 07:59 Dose: 600 mg Documented by: JOHNIE Glipizide (Glipizide 10 Mg Tablet) 10 mg PO BID@0630,1630 [facility] Last Admin: 10/20/21 06:30 Dose: 10 mg Documented by: NATALIE Glucose (Glucose Gel 15 Gm Gel..Gram.) 15 gm PO Q15M PRN; Protocol PRN Reason: per Hypoglycemia Standing Ord. Insulin Glargine (Insulin Glargine,Hum.Rec.Anlog 100 Unit/Ml 10 Ml Vial) 48 unit SUBCUT BEDTIME [facility] Last Admin: 10/19/21 22:04 Dose: 48 unit Documented by: CEZAR Insulin Human Lispro (Insulin Lispro 100 Unit/Ml 3 Ml Vial) 0 unit SUBCUT QIDACHS [facility]; Protocol Last Admin: 10/20/21 07:57 Dose: 6 unit Documented by: JOHNIE Insulin Human Lispro (Insulin Lispro 100 Unit/Ml 3 Ml Vial) 15 unit SUBCUT TIDAC [facility] Magnesium Oxide (Magnesium Oxide 400 Mg Tablet) 200 mg PO DAILY [facility] Last Admin: 10/20/21 07:58 Dose: 200 mg Documented by: JOHNIE Memantine (Memantine Hcl 10 Mg Tablet) 10 mg PO BID [facility] Last Admin: 10/20/21 07:58 Dose: 10 mg Documented by: JOHNIE Metoprolol Tartrate (Metoprolol Tartrate 100 Mg Tablet) 100 mg PO BID [facility]; Protocol Last Admin: 10/20/21 07:59 Dose: 100 mg Documented by: JOHNIE Multivitamins/Vitamin C (Multivitamin Tablet) 1 tab PO DAILY [facility] Last Admin: 10/20/21 07:58 Dose: 1 tab Documented by: JOHNIE Omeprazole (Omeprazole 20 Mg Capsule.) 20 mg PO DAILY@0630 [facility] Last Admin: 10/20/21 06:30 Dose: 20 mg Documented by: NATALIE Pharmacy Consult (Consult Rx Perform Med Rec) 1 each MISCELLANE ONCE PRN PRN Reason: Consult order Silver Sulfadiazine (Silver Sulfadiazine 1 % Cream 20 Gm Tube) 1 appl TOPICAL DAILY [facility] Last Admin: 10/19/21 08:16 Dose: 1 appl Documented by: ZAHRAA Sodium Chloride (0.9 % Sodium Chloride Flush 3 Ml Syringe) 3 ml IVFLUSH QSHIFT [facility] Last Admin: 10/20/21 07:59 Dose: 3 ml Documented by: JOHNIE Labs CBC & Chem 7: 10/18/21 06:03 10/20/21 09:36 Labs: Laboratory Results - last 24 hr 10/19/21 10/19/21 10/20/21 16:27 20:36 06:16 Anion Gap Estim Creat Clear Calc Estimated GFR POC Glucose 272 H 325 H 283 H Random Glucose Estimat Average Glucose Hemoglobin A1c % Calcium 10/20/21 10/20/21 10/20/21 07:20 09:36 09:36 Anion Gap 15 Estim Creat Clear Calc 42.6 Estimated GFR 33 POC Glucose 280 H Random Glucose 363 H* Estimat Average Glucose 229 Hemoglobin A1c % 9.6 Calcium 9.3 10/20/21 11:13 Anion Gap Estim Creat Clear Calc Estimated GFR POC Glucose 295 H Random Glucose Estimat Average Glucose Hemoglobin A1c % Calcium Microbiology Microbiology Results: Microbiology 10/17/21 14:10 Blood Culture - Preliminary Blood - Venous No growth after 48 hours. 10/17/21 13:14 Blood Culture - Preliminary Blood - Venous Gram positive cocci Assessment and Plan (1) PAD (peripheral artery disease): Status: Acute (2) Trash foot: Status: Acute (3) Hyperglycemia: Status: Acute (4) Renal failure (ARF), acute on chronic: Status: Acute (5) Wound of right foot: Status: Acute Assessment and Plan: 76-year-old Mosotho-speaking male presenting to the ER with elevated blood sugars.? He lives with the patient's son and he reported that his blood sugars have been over 500s. according to the son and his , patient was on 75 of lispro t.i.d, when he was in [place] but his insulin was changed by his primary care physician due to 2 episodes of hypoglycemia.? Patient was also treated for a diabetic foot infection to his right foot and this infection seems to be improving significantly. # hyperglycemia secondary to poorly controlled diabetes - his glucose remains elevated, his Lantus was increased to 40 units, he has mostly pre meal high readings, will increase his lispro to 15 t.i.d., 50 of Lantus, continue sliding scale insulin, continue glipizide 10 units b.i.d.. - I have spoke to his daughter along his son and advised them to keep a log of his glucose 4 times a day for at least 1 week on discharge, and take that to PCP for further insulin adjustment if necessary. - Continue diabetic diet - pock q.i.d. a.c. H # Diabetic foot infection - patient also has history of PVD - right toes appear more necrotic then infected at this time - arterial Doppler showed no evidence of hemodynamically significant stenosis - vascular surgery following, recommends outpatient follow-up - at this time will continue Eliquis per vascular surgery recommendation # JAMES on CKD - initially worsened but has slightly improved this morning, at this time will continue IV fluids and follow BMP, if worsens with fluid, consider discontinuing fluids, - can follow-up outpatient # Hyponatremia - resolved with better glucose control - sodium likely Pseudo from hyperglycemia # Hypertension. ? controlled, no change DVT prophylaxis with Eliquis disposition: Most likely discharge in a.m., pending improvement of his JAMES Quality Stroke Does the patient have a stroke diagnosis?: No VTE Prior VTE?: No VTE Risk Level:: Medical - moderate - high VTE Device Contraindication: N/A - Device Ordered VTE Drug Contraindication: N/A - Med Ordered
[2021-10-20] MEDS: Insulin Lispro 100 UNIT/ML 3 ML VIAL 15 UNIT SUBCUT ×2 (11:40→16:45)
[2021-10-20] MEDS: Silver Sulfadiazine 1 % Cream 20 GM TUBE 1 APPL TOPICAL (15:30)
[2021-10-20] MEDS: Lactated Ringers 1,000 ML 100 ML IVCONT (15:30)
[2021-10-20 16:06] LABS: Glucose, Whole Blood 237 mg/dL (60-115)
[2021-10-20 19:52] LABS: Glucose, Whole Blood 286 mg/dL (60-115)
[2021-10-20] MEDS: Insulin Glargine,Hum.rec.anlog 100 UNIT/ML 10 ML VIAL 50 UNIT SUBCUT (20:36)
[2021-10-20] MEDS: Donepezil HCl 10 MG TABLET PO (20:36)
[2021-10-20] MEDS: Atorvastatin Calcium 40 MG TABLET PO (20:36)
[2021-10-21] MEDS: Lactated Ringers 1,000 ML 100 ML IVCONT ×2 (01:20→07:55)
[2021-10-21 03:47] VITALS: BP 133/81; PULSE 84; RESP 18; O2SAT 96
[2021-10-21 07:03] VITALS: BP 137/77; PULSE 73; RESP 18; TEMP 36.1; O2SAT 96
[2021-10-21 07:15] LABS: Glucose, Whole Blood 219 mg/dL (60-115)
[2021-10-21 07:23] LABS: Anion Gap 14 (12-20); Blood Urea Nitrogen 37 mg/dL (9-16); Calcium 9.3 mg/dL (8.4-10.2); Carbon Dioxide 28 mmol/L (22-29); Chloride 98 mmol/L (96-108); Creatinine Clr Calc Pharmacy 54.5; Estimated Glomerular Filt Rate 44; Glucose Random 214 mg/dL (60-115); Potassium 4.9 mmol/L (3.3-5.1); Sodium 135 mmol/L (135-145)
[2021-10-21] MEDS: Insulin Lispro 100 UNIT/ML 3 ML VIAL SUBCUT ×2 (07:51→12:03)
[2021-10-21] MEDS: amLODIPine Besylate 10 MG TABLET PO (07:51)
[2021-10-21] MEDS: Insulin Lispro 100 UNIT/ML 3 ML VIAL 15 UNIT SUBCUT ×2 (07:51→12:03)
[2021-10-21] MEDS: glipiZIDE 10 MG TABLET PO (07:52)
[2021-10-21] MEDS: Omeprazole 20 MG CAPSULE.DR PO (07:52)
[2021-10-21] MEDS: Magnesium Oxide 400 MG TABLET 200 MG PO (07:52)
[2021-10-21] MEDS: allopurinoL 100 MG TABLET 50 MG PO (07:52)
[2021-10-21] MEDS: 0.9 % Sodium Chloride Flush 3 ML SYRINGE IVFLUSH (07:52)
[2021-10-21] MEDS: Memantine HCl 10 MG TABLET PO (07:52)
[2021-10-21] MEDS: Metoprolol Tartrate 100 MG TABLET PO (07:52)
[2021-10-21] MEDS: Gabapentin 600 MG TABLET PO (07:52)
[2021-10-21] MEDS: Multivitamin TABLET 1 TAB PO (07:52)
[2021-10-21] MEDS: Apixaban 5 MG TABLET PO (07:52)
[2021-10-21] MEDS: Escitalopram Oxalate 5 MG TABLET PO (07:52)
[2021-10-21] MEDS: Silver Sulfadiazine 1 % Cream 20 GM TUBE 1 APPL TOPICAL (07:55)
[2021-10-21 10:53] VITALS: BP 126/73; PULSE 54; RESP 18; TEMP 35.5; O2SAT 92
[2021-10-21 11:26] LABS: Glucose, Whole Blood 249 mg/dL (60-115)
[2021-10-21 14:32] VITALS: BP 126/73; PULSE 54; O2SAT 92
--- NOTE | 2021-10-21 15:19 | MHC.CM.PN ---
Per Medical, Patient will be medically cleared for dc to home today with services(to resume tomorrow). Patient was active with [facility], who has been notified of today's dc. Second IMM addressed with Patient and his Son and the original has been given to him and a copy placed on the chart.
--- NOTE | 2021-10-21 15:30 | MHC.CM.PN ---
CM confirmed with Action/Dispatch/Emily at [phone] that Patient cannot be transported by chair van in his own motorized w/c, nor could his motoerized w/c travel in an ambulance, while Patirnt is on a stretcher.CM spoke with Patient's Daughter/
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
== END 2021-10-21 17:00 | disposition home health service (06) | DRG 638 ==
LOC: HO.ED 15:25 → HO.EDOVER 15:57 → HO.IMC 23:20
PROVIDERS: Hospitalist; Internal Medicine; Admitting Provider Internal Medicine; Emergency Provider Emergency Medicine; PCP General Practice; Visit Provider Physician Assistant Medical
DX: E11.65 Type 2 diabetes mellitus with hyperglycemia (principal); N17.9 Acute kidney failure, unspecified; E87.1 Hypo-osmolality and hyponatremia; G30.9 Alzheimer's disease, unspecified; E11.51 Type 2 diabetes mellitus with diabetic peripheral angiopathy without gangrene; E11.22 Type 2 diabetes mellitus with diabetic chronic kidney disease; F02.80 Dementia in other diseases classified elsewhere, unspecified severity, without behavioral disturbance, psychotic disturbance, mood disturbance, and anxiety; Z20.822 Contact with and (suspected) exposure to COVID-19; Z79.4 Long term (current) use of insulin; Z79.899 Other long term (current) drug therapy
CPT/HCPCS: 36415; 73630; 80048; 80053; 82947; 83036; 83605; 85025; 85027; 85652; 87040; 87205; 87635; 93308; 96360; 96361; 97163; 99285; J2543; Q9957

== ENCOUNTER 2021-10-26 13:29 | Outpatient (RCR) | payer MEDICARE, MEDICAID, SELFPAY | END 2021-12-28 15:06 | disposition home or self-care (01) | LOC: HO.WCC 13:29 | PROVIDERS: PCP General Practice; Visit Provider Surgery | DX: Z09 Encounter for follow-up examination after completed treatment for conditions other than malignant neoplasm (principal); S90.424D Blister (nonthermal), right lesser toe(s), subsequent encounter; E11.9 Type 2 diabetes mellitus without complications; M62.271 Nontraumatic ischemic infarction of muscle, right ankle and foot; F03.90 Unspecified dementia, unspecified severity, without behavioral disturbance, psychotic disturbance, mood disturbance, and anxiety; Z86.31 Personal history of diabetic foot ulcer | CPT/HCPCS: 11042; 97597; 99212; 99215 ==

== ENCOUNTER → 2021-11-15 13:42 | Outpatient (BNVA) | payer MEDICARE, MEDICAID, SELFPAY | PROVIDERS: PCP General Practice; Visit Provider Surgery Vascular Surgery | DX: I83.11 Varicose veins of right lower extremity with inflammation (principal) | CPT/HCPCS: 99202 ==

== ENCOUNTER → 2021-11-22 14:38 | Outpatient (BNVA) | payer MEDICARE, MEDICAID, SELFPAY | PROVIDERS: PCP General Practice; Referring Provider General Practice; Visit Provider Nurse Practitioner Family | DX: I25.2 Old myocardial infarction (principal); I48.91 Unspecified atrial fibrillation; I10 Essential (primary) hypertension; R94.39 Abnormal result of other cardiovascular function study; G30.9 Alzheimer's disease, unspecified; F02.80 Dementia in other diseases classified elsewhere, unspecified severity, without behavioral disturbance, psychotic disturbance, mood disturbance, and anxiety; N17.9 Acute kidney failure, unspecified | CPT/HCPCS: 99212 ==

== ENCOUNTER → 2021-11-24 13:17 | Outpatient (BNVA) | payer MEDICARE, MEDICAID, SELFPAY | PROVIDERS: PCP General Practice; Referring Provider General Practice; Visit Provider Nurse Practitioner Family ==

== ENCOUNTER 2021-12-13 07:56 | Outpatient (REF) | payer MEDICARE, SELFPAY ==
--- NOTE | ~2021-12-13 | US_ITS ---
EXAMINATION: RIGHT and LEFT LOWER EXTREMITY VENOUS ULTRASOUND (Reflux Exam) CLINICAL INDICATION: leg pain and varicose veins. COMPARISON: Previous right lower extremity venous ultrasound September 2021 TECHNIQUE: Color flow triplex imaging and compression Doppler was performed to evaluate both the deep and the superficial systems bilaterally. To evaluate the superficial system, the examination was performed in the upright position. Color-flow Doppler ultrasound and compression ultrasound were utilized. In addition, maneuvers were utilized to demonstrate reflux. FINDINGS: 1. DEEP VENOUS ULTRASOUND OF THE RIGHT LOWER EXTREMITY: Respiratory variation, normal compression and augmented flow are noted in the right common femoral vein as well as the right popliteal vein and there is no evidence of deep venous thrombosis at these locations. There is a small amount of thrombus seen in the saphenofemoral junction. There is no evidence of reflux in the deep system in either the common femoral vein or the popliteal vein. There is no evidence of a Cleveland's cyst. 2. SUPERFICIAL ULTRASOUND WITH DOPPLER OF RIGHT LOWER EXTREMITY: The right great saphenous vein at the saphenofemoral junction measures 11 mm, at the mid thigh 4 mm, szazo-pbu-aiml 5 mm, osvir-ify-orph 4 mm, at mid calf 3 mm and at the ankle measures 4 mm. There is once second reflux in the right great saphenous vein in the proximal thigh and 1.3 seconds reflux in the mid calf. The right small saphenous vein measures 2 mm and shows no reflux. There is a 3 mm kitchen and bath designer in the mid thigh that does not demonstrate reflux. There is a 4 mm kitchen and bath designer in the mid calf that demonstrates 1.7 second reflux. There are varicosities in the proximal thigh and distal calf measuring 3 mm that do not demonstrate reflux. 3. DEEP VENOUS ULTRASOUND OF THE LEFT LOWER EXTREMITY: Respiratory variation, normal compression and augmented flow are noted in the left common femoral vein as well as the left popliteal vein and there is no evidence of deep venous thrombosis at these locations. There is no evidence of reflux in the deep system in either the common femoral vein or the popliteal vein. . There is no evidence of a Cleveland's cyst. 4. SUPERFICIAL ULTRASOUND WITH DOPPLER OF LEFT LOWER EXTREMITY: Left great saphenous vein at the saphenofemoral junction measures 9 mm, at the mid thigh 5 mm, kxrpv-sju-zpdk 4 mm, mtmqy-lsy-klhc 4 mm, at mid calf 4 mm and not seen at the ankle . Left greater saphenous vein is occluded at the saphenofemoral junction and in the proximal thigh. There is reflux seen in the left greater saphenous vein in the mid calf measuring 0.9 seconds The left small saphenous vein measures 4-5 mm and shows no reflux. There is a kitchen and bath designer in the mid calf that measures 4 mm and does not demonstrate reflux. There are varicosities in the mid and distal calf that measures 0.3 cm and demonstrate 1.8 and 2.5 second reflux. US/US venous duplex LE BI IMPRESSION: Right: Small amount of thrombus at the saphenofemoral junction. This is new from September 2021 exam. No deep venous reflux. Right greater saphenous vein reflux in the proximal thigh measuring 1 second and in the mid calf measuring 1.3 seconds. Reflux in a calf kitchen and bath designer measuring 1.7 seconds. Left: No DVT or deep venous reflux. Occluded left greater saphenous vein at the saphenofemoral junction and proximal thigh. Reflux in the left greater saphenous vein in the mid calf measuring 0.9 seconds. Reflux in varicosities in the calf measuring 1.8 and 2.5 seconds.
== END 2021-12-13 07:57 | disposition home or self-care (01) ==
LOC: HO.US 07:56
PROVIDERS: Visit Provider Surgery Vascular Surgery
DX: I83.11 Varicose veins of right lower extremity with inflammation (principal)
CPT/HCPCS: 93970

== ENCOUNTER 2021-12-20 15:23 | Outpatient (REF) | payer MEDICARE, SELFPAY ==
[2021-12-20 16:55] LABS: Alanine Aminotransferase 18 U/L (0-40); Alkaline Phosphatase 110 U/L (39-117); Anion Gap 17 (12-20); Aspartate Amino Transferase 20 U/L (5-37); Bilirubin Total 0.6 mg/dL (0.0-1.0); Blood Urea Nitrogen 39 mg/dL (9-16); Calcium 9.8 mg/dL (8.4-10.2); Carbon Dioxide 30 mmol/L (22-29); Chloride 95 mmol/L (96-108); Estimated Glomerular Filt Rate 32; Glucose Random 301 mg/dL (60-115); Potassium 4.6 mmol/L (3.3-5.1); Sodium 137 mmol/L (135-145); Total Protein 7.6 g/dL (6.5-8.0)
[2021-12-20 17:15] LABS: T4 Thyroxine 6.4 ug/dL (4.5-12.0); Thyroid Stimulating Hormone 3.61 uIU/mL (0.32-4.0)
[2021-12-20 17:40] LABS: Folate > 20.0 ng/mL (> or = 4.0); Vitamin B12 723 pg/mL (200-900)
== END 2021-12-20 15:24 | disposition home or self-care (01) ==
LOC: HO.LAB 15:23
PROVIDERS: Visit Provider Psychiatry & Neurology Neurology
DX: G30.9 Alzheimer's disease, unspecified (principal)
CPT/HCPCS: 36415; 80053; 82607; 82746; 84436; 84443

== ENCOUNTER → 2021-12-22 15:19 | Outpatient (BNVA) | payer MEDICARE, SELFPAY | PROVIDERS: PCP General Practice; Visit Provider Surgery Vascular Surgery | DX: I83.11 Varicose veins of right lower extremity with inflammation (principal) | CPT/HCPCS: 99212 ==

== ENCOUNTER 2021-12-23 08:38 | Emergency (ER) | payer MEDICARE, SELFPAY ==
--- NOTE | ~2021-12-23 | CT_ITS ---
EXAMINATION: CT HEAD WITHOUT CONTRAST CLINICAL INFORMATION: Dizziness COMPARISON: Previous head CT August 2021 TECHNIQUE: Contiguous axial imaging was performed from the skull base to vertex without intravenous administration of contrast. This CT examination was performed using dose optimization techniques as appropriate, variously including the following: *Automated exposure control *Adjustment of mA and/or kV according to patient size (this includes techniques or standardized protocols for targeted exams where dose is matched to indication/reason for exam; i.e. extremities or head) *Use of iterative reconstruction technique DLP: 909 mGy-cm FINDINGS: There is no evidence of an extra-axial collection. There is no evidence of intra-axial or axial hemorrhage. Ventricles and extra-axial CSF spaces are prominent suggestive of mild generalized atrophy. There is nonspecific periventricular white matter disease. No mass, mass effect or infarct is seen. There is evidence of atherosclerotic disease. Review of bone windows is normal. Visualized paranasal sinuses, mastoid air cells and middle ears are clear. There is skin thickening and increased attenuation of the subcutaneous fat of the scalp over the right parietal bone. This is unchanged from previous exam and may represent post surgical or posttraumatic changes. CT/CT head/brain wo con IMPRESSION: No acute intracranial pathology. Of generalized atrophy and nonspecific periventricular white matter disease to August 2021 exam.
[2021-12-23 08:46] VITALS: BP 132/78; BP 136/66; PULSE 90; PULSE 92; RESP 18; TEMP 37.3; O2SAT 95; O2SAT 99; BMI 40.2
--- NOTE | 2021-12-23 08:48 | ECG_ITS ---
Test Reason : altered mental status Blood Pressure : / mmHG Vent. Rate : 081 BPM Atrial Rate : 000 BPM P-R Int : 000 ms QRS Dur : 086 ms QT Int : 320 ms P-R-T Axes : 000 064 107 degrees QTc Int : 371 ms Atrial fibrillation Abnormal ECG When compared with ECG of 07-OCT-2021 14:16, QT has shortened Referred By: Emily Seymour Electronically Signed By:PANKAJ BRASWELL MD
--- NOTE | 2021-12-23 08:49 | ED_ITS ---
HPI - General Adult General Chief complaint: Dizziness Stated complaint: weakness Time Seen by Provider: 12/23/21 08:48 Source: EMS Mode of arrival: EMS Limitations: other (Alzheimer's dementia) History of Present Illness HPI narrative: The patient is brought to the emergency room by EMS. Patient has history of Al zheimer's dementia and cannot provide significant history. Patient states that he feels well and has no idea why he is here. However, this morning, patient's family noted that the patient is weaker than usual. On a normal day, patient is able to get up and walk, today he was unable to get out of bed. When EMS arrived to the patient's residence, patient was too weak to sit up and needed assistance. Also, the family noted that the patient had urinary incontinence which is new for the patient. Patient cannot provide significant history but states that he has no abdominal pain, no chest pain, no headache, patient states that he feels completely normal Related Data Home Medications Medication Instructions Recorded Confirmed apixaban 5 mg tablet 1 tab PO BID 09/05/21 11/23/21 (Eliquis) citalopram 10 mg tablet 1 tab PO DAILY 09/05/21 11/23/21 donepezil 10 mg tablet 1 tab PO QPM 09/05/21 11/23/21 glimepiride 4 mg tablet 1 tab PO BID 09/05/21 11/23/21 magnesium oxide 1 tab PO DAILY 09/05/21 11/23/21 memantine 10 mg tablet 1 tab PO BID 09/05/21 11/23/21 metoprolol tartrate 100 mg 1 tab PO BID 09/05/21 11/23/21 tablet kxhwjlzz-zbi-[id number] acid 0.4 1 tab PO DAILY 09/05/21 11/23/21 mg-lycopene 300 mcg-lutein 250 mcg tablet (CertaVite Senior) pantoprazole 40 mg 1 tab PO DAILY 09/05/21 11/23/21 tablet,delayed release acetaminophen 500 mg tablet 1 tab PO Q6H PRN 10/07/21 11/23/21 allopurinol 100 mg tablet 0.5 tab PO DAILY 10/07/21 11/23/21 carboxymethylcellulose 1 drp OPHTHALMIC (EYE) 10/07/21 11/23/21 sodium 0.5 Q4-6H PRN % eye drops (Refresh Tears) diphenhydramine HCl 25 mg 0.5 tab PO BEDTIME PRN 10/07/21 11/23/21 tablet (Banophen) gabapentin 600 mg tablet 1 tab PO BID 10/17/21 11/23/21 alcohol swabs (Alcohol Prep 1 pad TOPICAL TID 12/22/21 Pads) amlodipine 5 mg tablet 5 mg PO DAILY 12/22/21 insulin lispro 76 unit SUBCUT BID 12/22/21 protamine-lispro 100 unit/mL (50-50) subcutaneous susp (Humalog Mix 50-50 Insuln U-100) insulin syringe-needle U-100 #10 ea 12/22/21 1 mL 31 gauge x 04/10 Previous Rx's Medication Instructions Recorded atorvastatin 40 mg tablet 40 mg PO BEDTIME #30 tab 09/09/21 (Lipitor) bumetanide 1 mg tablet 1 tab PO DAILY #0 tab 09/09/21 amlodipine 10 mg tablet 10 mg PO DAILY #30 tab 10/10/21 silver sulfadiazine 1 % topical 1 appl TOPICAL DAILY #50 g 10/11/21 cream (SSD) insulin glargine 100 unit/mL (3 50 unit (0.5 mL) SUBCUT QPM #0 ml 10/21/21 mL) subcutaneous pen (Lantus Solostar U-100 Insulin) insulin lispro 100 unit/mL 10 unit (0.1 mL) SUBCUT TIDAC #10 10/21/21 subcutaneous solution (Humalog ml U-100 Insulin) lancets (Lancets,Ultra Thin) #100 ea 10/21/21 Allergies Allergy/AdvReac Type Severity Reaction Status Date / Time No Known Allergies Allergy Verified 12/22/21 15:24 Review of Systems Verdana 4l Review of Systems: Verdana 4d Verdana 4d Constitutional : Denies fever chills ENT/Mouth : No Hearing loss, No Ear Pain, No Nasal Congestion, No Sinus Pain, No Hoarseness, No sore throat, No Rhinorrhea, No Swallowing Difficulty Eyes: No Eye Pain, No Swelling, No Redness, No ForeignForeign Body, No Discharge, No Vision Changes Cardiovascular : No Chest Pain, No SOB, No Dyspnea on Exertion, No Orthopnea, No Edema, No Palpitations Respiratory : No Cough, No Sputum, No Wheezing, No Smoke Exposure, No Dyspnea Gastrointestinal : No Nausea, No Vomiting, No Diarrhea, No Constipation, No abdominal Pain, No Hematochezia, No Melena Genitourinary : no irregular bleeding, No Dysuria, No Urinary Frequency, No Hematuria, No Urinary Incontinence, No Urgency, No Flank Pain, No Urinary Flow Changes, No Hesitancy Musculoskeletal : No joint pain, No Myalgias, No Joint Swelling Skin : No Skin Lesions, No rash Neuro : No Weakness, No Numbness, No Paresthesias, No Loss of Consciousness, No Dizziness, No Headache Psych : No Anxiety/Panic, No Depression, No SI/HI/AH/VH, No Social Issues, Heme/Lymph: No Bruising, No Bleeding,No Lymphadenopathy Endocrine : No Polyuria, No Polydipsia, No Temperature Intolerance [facility] Past Medical History Medical History Alzheimer's dementia Atrial fibrillation Diabetes Diabetes mellitus Diabetic foot infection Heart failure with preserved ejection fraction HLD (hyperlipidemia) HTN (hypertension) Kidney failure NSTEMI (non-ST elevated myocardial infarction) Trash foot Surgical History No pertinent past surgical history Family History Family History Father No problems noted. Mother No problems noted. 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 Oriented X1. No acute distress. Eyes: Pupils equal, round and reactive to light. ENT: Pharynx normal. Neck: Normal inspection. Neck supple. No lymph nodes noted. No crepitus CVS: Normal heart rate and rhythm. Pulses normal. Normal S1 and S2 Respiratory: No respiratory distress. Breath sounds normal. No Wheezing. No rales Abdomen: Soft and nontender. No rigidity. No distention. Skin: Skin warm and dry. Normal skin color. Normal skin turgor. Extremities: No lower extremity edema. No Lacerations. No Rash Neuro: Oriented X 3. No motor deficit. No sensory deficit. Moving all extermities. No slurred speech. Course Course Course Narrative: Just arrived. Patient voices no complaints. Unfortunately he is a poor historian due to history of Alzheimer's. Patient agrees to have labs drawn and provide a urine. Patient's son is not at bedside. Patient has an appointment for head CT in 1 hour, which was ordered by Neurology as an outpatient. The son explains that for a few weeks patient has had trouble walking and losing balance, falling towards 1 side. Patient has also an EEG pending. I discussed with the patient with EEG will have to be done as scheduled in an outpatient basis. Patient is on also requesting physical therapy for home. Case management and PT consult pending at this time, patient states that he feels well, has no chest pain or shortness of breath, lying comfortably in bed. Patient's son clarified that the weakness has been ongoing for approximately 6 months since the patient moved from [place] to [place]. The son states that it is likely that the patient was unable to get out of bed and he could not hold the urine any longer and he urinated on himself. I discussed the labs and CT scan with the patient and his son. Case Management and Physical therapy consult pending. Physician observation started at 13:20 230pm I received a phone call from our Case Management, patient will be going home with physical therapy Started complaining that the case management team was taking too long for the evaluation. It was explained to the patient that the insurance approval for home PT was pending. Patient remained asymptomatic, cooperative, the patient's son started complaining that the patient has not had his home medications. A dose of his morning meds were offered. It was explained to the patient's son that the patient's nurse is with a critical patient and cannot leave bedside at the moment but once she is available she will get the patient's medications. Patient asked how long it is going to be until the ambulance will car pick up driver the patient. Right now in its to 50, patient's son was informed that the ambulance was walk for 16:00. Patient's son states that that he wants to take his father home, it was advised for him to stay until the ambulance gets here for save transfer home, we would feed patient has not mentioned above give the patient his home medications. Patient's son apologize for his behavior earlier today, states that he understands that the hospital is very busy and we were short staffed. Son requested to have the ambulance canceled and he would like to take his father home. Discussed with Case Management, S ambulance has been canceled. On the way out of the ED, patient's son said that he was very grateful for everything that we did stated and apologized once again Medical Decision Making Lab Data Result diagrams: 12/23/21 08:58 12/23/21 08:58 Labs: Lab Results 12/23/21 12/23/21 12/23/21 Range/Units 08:54 08:58 08:58 WBC 8.8 (4.8-10.8) X10*3/uL RBC 4.49 L (4.60-5.80) X10*6/uL Hgb 15.2 (14.0-18.0) g/dl Hct 44.6 (42.0-52.0) % MCV 99.3 H (80.0-98.0) fL MCH 33.9 H (27.0-33.0) pg MCHC 34.1 (31.0-36.0) g/dl RDW 12.3 (11.0-16.0) % Plt Count 171 (160-400) X10*3/uL MPV 10.8 (9.4-12.4) fL Immature Gran % (Auto) 0.3 (0.0-0.4) % Neut % (Auto) 68.6 (45-73) % Lymph % (Auto) 14.9 L (20-40) % [place] % (Auto) 11.9 H (2-11) % Eos % (Auto) 3.8 (0-4) % Baso % (Auto) 0.5 (0-2) % Lymph # (Auto) 1.3 (1.2-4.9) X10*3/uL [place] # (Auto) 1.1 (0.1-1.2) X10*3/uL Eos # (Auto) 0.3 (0.0-0.4) X10*3/uL Baso # (Auto) 0.0 (0.0-0.2) X10*3/uL Abs Immat Gran (auto) 0.03 (0.00-0.03) X10*3/uL Absolute Neuts (auto) 6.0 (2.0-8.3) x10*3/uL Absolute Nucleated RBC 0.000 (0.0-0.012) X10*3/uL Nucleated RBC % (auto) 0.0 (0.0-0.2) /100WBC Sodium 137 (135-145) mmol/L Potassium 4.6 (3.3-5.1) mmol/L Chloride 94 L (96-108) mmol/L Carbon Dioxide 32 H (22-29) mmol/L Anion Gap 16 (12-20) BUN 38 H (9-16) mg/dL Creatinine 2.14 H (0.5-1.4) mg/dL Estim Creat Clear Calc 37.0 Estimated GFR 30 POC Glucose (60-115) mg/dL Random Glucose 251 H (60-115) mg/dL Calcium 9.4 (8.4-10.2) mg/dL Total Bilirubin 1.0 (0.0-1.0) mg/dL Direct Bilirubin 0.5 (0.0-0.5) mg/dL AST 19 (5-37) U/L ALT 17 (0-40) U/L Alkaline Phosphatase 117 (39-117) U/L Troponin I High Sens (<3.5-35.0) ng/L B-Natriuretic Peptide (<100) pg/mL Total Protein 7.4 (6.5-8.0) g/dL Albumin 3.9 (3.5-5.0) g/dL Urine Color Urine Appearance Urine pH (5.0-8.0) Ur Specific [place] (1.005-1.025) Urine Protein (NEG-TRACE) MG/DL Urine Glucose (UA) (NEG) MG/DL Urine Ketones (NEG) MG/DL Urine Blood (NEG) Urine Nitrite (NEG) Ur Leukocyte Esterase (NEG) Urine RBC (0) /HPF Urine WBC (0-4) /HPF Ur Squamous Epith Cells /LPF Ur Renal Epithelial Cell /LPF Urine Bacteria /LPF Hyaline Casts /LPF COVID-19 (REMY) Negative (Negative) COVID-19 Clin Com See Note 12/23/21 12/23/21 12/23/21 Range/Units 08:58 09:20 14:40 WBC (4.8-10.8) X10*3/uL RBC (4.60-5.80) X10*6/uL Hgb (14.0-18.0) g/dl Hct (42.0-52.0) % MCV (80.0-98.0) fL MCH (27.0-33.0) pg MCHC (31.0-36.0) g/dl RDW (11.0-16.0) % Plt Count (160-400) X10*3/uL MPV (9.4-12.4) fL Immature Gran % (Auto) (0.0-0.4) % Neut % (Auto) (45-73) % Lymph % (Auto) (20-40) % [place] % (Auto) (2-11) % Eos % (Auto) (0-4) % Baso % (Auto) (0-2) % Lymph # (Auto) (1.2-4.9) X10*3/uL [place] # (Auto) (0.1-1.2) X10*3/uL Eos # (Auto) (0.0-0.4) X10*3/uL Baso # (Auto) (0.0-0.2) X10*3/uL Abs Immat Gran (auto) (0.00-0.03) X10*3/uL Absolute Neuts (auto) (2.0-8.3) x10*3/uL Absolute Nucleated RBC (0.0-0.012) X10*3/uL Nucleated RBC % (auto) (0.0-0.2) /100WBC Sodium (135-145) mmol/L Potassium (3.3-5.1) mmol/L Chloride (96-108) mmol/L Carbon Dioxide (22-29) mmol/L Anion Gap (12-20) BUN (9-16) mg/dL Creatinine (0.5-1.4) mg/dL Estim Creat Clear Calc Estimated GFR POC Glucose 222 H (60-115) mg/dL Random Glucose (60-115) mg/dL Calcium (8.4-10.2) mg/dL Total Bilirubin (0.0-1.0) mg/dL Direct Bilirubin (0.0-0.5) mg/dL AST (5-37) U/L ALT (0-40) U/L Alkaline Phosphatase (39-117) U/L Troponin I High Sens 4.2 (<3.5-35.0) ng/L B-Natriuretic Peptide 182 H (<100) pg/mL Total Protein (6.5-8.0) g/dL Albumin (3.5-5.0) g/dL Urine Color YELLOW Urine Appearance CLEAR Urine pH 5.5 (5.0-8.0) Ur Specific [place] 1.025 (1.005-1.025) Urine Protein 2+ H (NEG-TRACE) MG/DL Urine Glucose (UA) 100 H (NEG) MG/DL Urine Ketones NEG (NEG) MG/DL Urine Blood 2+ H (NEG) Urine Nitrite NEG (NEG) Ur Leukocyte Esterase NEG (NEG) Urine RBC 5-9 H (0) /HPF Urine WBC 0-2 (0-4) /HPF Ur Squamous Epith Cells 1+ /LPF Ur Renal Epithelial Cell 1+ /LPF Urine Bacteria NONE /LPF Hyaline Casts 10-14 /LPF COVID-19 (REMY) (Negative) COVID-19 Clin Com Imaging Data Head CT: Radiologist's impression: FINDINGS: There is no evidence of an extra-axial collection. There is no evidence of intra-axial or axial hemorrhage. Ventricles and extra-axial CSF spaces are prominent suggestive of mild generalized atrophy. There is nonspecific periventricular white matter disease. No mass, mass effect or infarct is seen. There is evidence of atherosclerotic disease. Review of bone windows is normal. Visualized paranasal sinuses, mastoid air cells and middle ears are clear. There is skin thickening and increased attenuation of the subcutaneous fat of the scalp over the right parietal bone. This is unchanged from previous exam and may represent post surgical or posttraumatic changes. ? CT/CT head/brain wo con IMPRESSION: No acute intracranial pathology. Of generalized atrophy and nonspecific periventricular white matter disease to August 2021 exam. Discharge Plan Discharge Clinical Impression: Weakness Patient Disposition: Home, Self-Care Instructions: Weakness (ED) Additional Instructions: Please follow-up with your primary care physician tomorrow. Patient going home with PT at home. If you have any worsening or new symptoms, please return to the emergency room or call 911 Prescriptions: No Action metoprolol tartrate 100 mg tablet 1 tab PO BID 0RF citalopram 10 mg tablet 1 tab PO DAILY 0RF glimepiride 4 mg tablet 1 tab PO BID 0RF memantine 10 mg tablet 1 tab PO BID 0RF Eliquis 5 mg tablet 1 tab PO BID 0RF donepezil 10 mg tablet 1 tab PO QPM 0RF pantoprazole 40 mg tablet,delayed release (DR/EC) 1 tab PO DAILY 0RF magnesium oxide 250 mg magnesium tablet 1 tab PO DAILY 0RF CertaVite Senior 0.4-300-250 mg-mcg-mcg tablet 1 tab PO DAILY 0RF atorvastatin [Lipitor] 40 mg tablet 40 mg PO BEDTIME Qty: 30 0RF bumetanide 1 mg tablet 1 tab PO DAILY Qty: 0 0RF allopurinol 100 mg tablet 0.5 tab PO DAILY 0RF acetaminophen 500 mg tablet 1 tab PO Q6H PRN (Reason: pain) 0RF carboxymethylcellulose sodium [Refresh Tears] 0.5 % drops 1 drp ophthalmic (eye) Q4-6H PRN (Reason: Dry Eye(S)) 0RF diphenhydramine HCl [Banophen] 25 mg tablet 0.5 tab PO BEDTIME PRN (Reason: Insomnia) 0RF amlodipine 10 mg tablet 10 mg PO DAILY Qty: 30 0RF silver sulfadiazine [SSD] 1 % cream 1 appl topical DAILY Qty: 50 0RF Rx Instructions: apply a 1.5 mm thickness gabapentin 600 mg tablet 1 tab PO BID 0RF insulin lispro [Humalog U-100 Insulin] 100 unit/mL Solution 10 unit subcut TIDAC Qty: 10 0RF Lantus Solostar U-100 Insulin 100 unit/mL (3 mL) insulin pen 50 unit subcut QPM Qty: 0 0RF (DME) lancets [Lancets,Ultra Thin] Misc See Rx Instructions .Route Qty: 100 0RF Rx Instructions: As directed alcohol swabs [Alcohol Prep Pads] Pads, Medicated 1 pad topical TID 0RF Humalog Mix 50-50 Insuln U-100 100 unit/mL (50-50) suspension 76 unit subcut BID 0RF (DME) insulin syringe-needle U-100 1 mL 31 gauge x 5/16 syringe See Rx Instructions ea subcut TID Qty: 10 0RF Rx Instructions: As directed amlodipine 5 mg tablet 5 mg PO DAILY 0RF Referrals: [facility] [Other] - 2 days (PHYSICAL THERAPY WILL BE ARRANGED BY [facility]. )
[2021-12-23 09:03] LABS: MANUAL DIFF FLAG NO
[2021-12-23 09:05] LABS: Hematocrit 44.6 % (42.0-52.0); Hemoglobin 15.2 g/dl (14.0-18.0); Imm Gran Pct Auto 0.3 % (0.0-0.4); Mean Corpuscular HGB Conc 34.1 g/dl (31.0-36.0); Mean Corpuscular Hemoglobin 33.9 pg (27.0-33.0); Mean Corpuscular Volume 99.3 fL (80.0-98.0); Mean Platelet Volume 10.8 fL (9.4-12.4); Neutrophils Percent Auto 68.6 % (45-73); Platelet Count 171 X10*3/uL (160-400); Red Blood Count 4.49 X10*6/uL (4.60-5.80); Red Cell Distribution Width 12.3 % (11.0-16.0); White Blood Count 8.8 X10*3/uL (4.8-10.8)
[2021-12-23 09:06] LABS: Basophils Percent Auto 0.5 % (0-2); Eosinophils Absolute Auto 0.3 X10*3/uL (0.0-0.4); Eosinophils Percent Auto 3.8 % (0-4); Imm Gran Abs Auto 0.03 X10*3/uL (0.00-0.03); Lymphocytes Absolute Auto 1.3 X10*3/uL (1.2-4.9); Lymphocytes Percent Auto 14.9 % (20-40); Monocytes Absolute Auto 1.1 X10*3/uL (0.1-1.2); Monocytes Percent Auto 11.9 % (2-11)
[2021-12-23 09:26] LABS: COVID-19 Test Negative (Negative)
[2021-12-23 09:26] LABS: B Type Natriuretic Peptide 182 pg/mL (<100)
[2021-12-23 09:27] LABS: Alanine Aminotransferase 17 U/L (0-40); Albumin Level 3.9 g/dL (3.5-5.0); Alkaline Phosphatase 117 U/L (39-117); Anion Gap 16 (12-20); Aspartate Amino Transferase 19 U/L (5-37); Bilirubin Direct 0.5 mg/dL (0.0-0.5); Blood Urea Nitrogen 38 mg/dL (9-16); Calcium 9.4 mg/dL (8.4-10.2); Carbon Dioxide 32 mmol/L (22-29); Chloride 94 mmol/L (96-108); Estimated Glomerular Filt Rate 30; Glucose Random 251 mg/dL (60-115); Potassium 4.6 mmol/L (3.3-5.1); Sodium 137 mmol/L (135-145); Total Protein 7.4 g/dL (6.5-8.0)
[2021-12-23 09:32] LABS: Appearance Urine CLEAR; Color Urine YELLOW; Glucose Urine UA 100 MG/DL (NEG); Leukocyte Esterase Urine NEG (NEG); Nitrite Urine NEG (NEG); PH 5.5 (5.0-8.0); Specific Gravity - Urine 1.025 (1.005-1.025); UACC Culture Trigger NO; Urine Blood 2+ (NEG); Urine Ketones NEG (NEG); Urine Protein 2+ MG/DL (NEG-TRACE)
[2021-12-23 09:41] VITALS: BP 125/77; PULSE 88; RESP 17; O2SAT 93
[2021-12-23 09:55] LABS: Troponin-I High Sensitivity 4.2 ng/L (<3.5-35.0)
[2021-12-23 10:10] LABS: Renal Epithelial Cells Urine 1+ /LPF; Squamous Epithelial Cell Urine 1+ /LPF; WBC Urine 0-2 /HPF (0-4)
[2021-12-23 11:48] VITALS: BP 133/70; PULSE 77; RESP 16; O2SAT 96
[2021-12-23 11:51] VITALS: BP 133/70; PULSE 77; O2SAT 96
[2021-12-23 12:37] VITALS: BP 130/63; PULSE 70; RESP 17; O2SAT 94
--- NOTE | 2021-12-23 14:34 | MHC.CM.ED ---
Received case management consult from Dr Seymour. Patient came to ER due to dizziness. Work up essentially negative. Physical therapy eval completed. Home therapy is recommended. Per [facility] at [facility], they will provide these services. T/W spoke [facility] patient's son/HCP, [place] via telephone with help of [place] telephone airport location manager. Patient will need BLS tranpsort to get home. [facility] BLS booked. Med [facility] with chart. Patient, [place]ley, and Dr Seymour aware. Continue to monitor for d/c needs.
[2021-12-23 14:44] LABS: Glucose, Whole Blood 222 mg/dL (60-115)
== END 2021-12-23 15:12 | disposition home or self-care (01) ==
PROVIDERS: Emergency Provider Emergency Medicine; PCP General Practice
DX: R42 Dizziness and giddiness (principal); G30.9 Alzheimer's disease, unspecified; R06.02 Shortness of breath; R32 Unspecified urinary incontinence; E11.9 Type 2 diabetes mellitus without complications; F02.80 Dementia in other diseases classified elsewhere, unspecified severity, without behavioral disturbance, psychotic disturbance, mood disturbance, and anxiety; R53.1 Weakness; Z20.822 Contact with and (suspected) exposure to COVID-19; Z79.899 Other long term (current) drug therapy; Z79.4 Long term (current) use of insulin
CPT/HCPCS: 70450; 80048; 80076; 81001; 82947; 83880; 84484; 85025; 87635; 93005; 97162; 99284

== ENCOUNTER → 2022-03-22 14:03 | Outpatient (REF) | payer MEDICARE, SELFPAY | LOC: HO.SL 14:03 | PROVIDERS: PCP General Practice; Visit Provider General Practice | DX: G47.33 Obstructive sleep apnea (adult) (pediatric) (principal) | CPT/HCPCS: 95806 ==

== ENCOUNTER → 2022-05-08 13:43 | Outpatient (BNVA) | payer MEDICARE, SELFPAY | PROVIDERS: PCP General Practice; Referring Provider General Practice; Visit Provider Internal Medicine Cardiovascular Disease | DX: R06.02 Shortness of breath (principal); I48.91 Unspecified atrial fibrillation; I25.10 Atherosclerotic heart disease of native coronary artery without angina pectoris; I25.2 Old myocardial infarction; Z79.01 Long term (current) use of anticoagulants; Z79.899 Other long term (current) drug therapy | CPT/HCPCS: 99212 ==

== ENCOUNTER → 2022-05-14 20:29 | Outpatient (REF) | payer MEDICARE, SELFPAY | LOC: HO.SL 20:29 | PROVIDERS: Visit Provider General Practice | DX: G47.33 Obstructive sleep apnea (adult) (pediatric) (principal) | CPT/HCPCS: 95811 ==

== ENCOUNTER 2022-07-06 19:20 | Emergency (ER) | payer MEDICARE, SELFPAY ==
--- NOTE | 2022-07-06 | ECG_ITS ---
Test Reason : WEAKNESS Blood Pressure : / mmHG Vent. Rate : 073 BPM Atrial Rate : 000 BPM P-R Int : 000 ms QRS Dur : 084 ms QT Int : 322 ms P-R-T Axes : 000 050 152 degrees QTc Int : 354 ms Atrial fibrillation Nonspecific T wave abnormality Abnormal ECG When compared with ECG of 23-DEC-2021 08:51, No significant changes seen Referred By: Generic ED Physician Electronically Signed By:EMERSON LIANG
--- NOTE | ~2022-07-06 | CT_ITS ---
EXAMINATION: CT HEAD WITHOUT CONTRAST CLINICAL INFORMATION: Weakness. COMPARISON: CT head 12/15/2021 TECHNIQUE: Contiguous axial imaging was performed from the skull base to vertex without intravenous administration of contrast. Coronal and sagittal reformatted images are performed at CT scanner This CT examination was performed using dose optimization techniques as appropriate, variously including the following: *Automated exposure control *Adjustment of mA and/or kV according to patient size (this includes techniques or standardized protocols for targeted exams where dose is matched to indication/reason for exam; i.e. extremities or head) *Use of iterative reconstruction technique DLP: 867 mGy-cm FINDINGS: There is no evidence of acute intracranial hemorrhage or territorial infarction. No abnormal mass effect or midline shift is seen. Perez to white matter differentiation is well preserved. No extra-axial fluid collections are identified. There is generalized global volume loss. There is moderate prominence of the ventricles and the sulci . There is mild hypodensity of the periventricular white matter due to chronic small vessel ischemic disease. There are vascular calcifications of the internal carotid arteries bilaterally. The osseous structures and soft tissues are normal. The mastoid air cells and visualized portions of the paranasal sinuses are well aerated. CT/CT head/brain wo con IMPRESSION: No acute intracranial pathology.
--- NOTE | ~2022-07-06 | XR_ITS ---
EXAMINATION: XR CHEST CLINICAL INFORMATION: Weakness COMPARISON: Chest xray on 10/07/21 TECHNIQUE: 2 views of the chest were obtained. FINDINGS: No significant abnormality is noted involving the heart, lungs, mediastinum, bony thorax or soft tissues. XR/XR chest 2V IMPRESSION: Unremarkable examination.
--- NOTE | ~2022-07-06 | XR_ITS ---
EXAMINATION: XR RIBS, BILATERAL CLINICAL INFORMATION: Fall. Pain. COMPARISON: None TECHNIQUE: 3 views of the bilateral ribs were obtained. FINDINGS: Lungs are clear. No consolidation, pneumothorax, or pleural effusion. The cardiomediastinal silhouette and pulmonary vasculature are normal. No acute abnormality of the ribs. Ribs are intact. No fractures are identified. Multilevel degenerative spondylosis of the spine. XR/XR ribs BI min 4V w CXR1V IMPRESSION: No displaced rib fractures.
--- NOTE | ~2022-07-06 | XR_ITS ---
EXAMINATION: XR ELBOW, RIGHT CLINICAL INFORMATION: Fall with pain COMPARISON: None TECHNIQUE: AP, lateral, and oblique views of the right elbow. FINDINGS: No fracture or dislocation. Alignment is anatomic. Joint spaces are maintained. No elbow joint effusion. The soft tissues are unremarkable. XR/XR elbow RT 2V IMPRESSION: Normal right elbow.
[2022-07-06 19:25] VITALS: BP 138/80; PULSE 81; RESP 18; TEMP 37.1; O2SAT 95; BMI 36.6
[2022-07-06 19:31] VITALS: BP 138/80; PULSE 73; RESP 16; TEMP 37.1; O2SAT 95
--- NOTE | 2022-07-06 19:37 | ED_ITS ---
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 Patient reports that when he moves around he sometimes gets lightheaded and dizzy. He does not feel dizzy at rest. Patient denies any associated vision changes, headache, nausea, vomiting, abdominal pain, chest pain, diarrhea, fevers or chills. Related Data Home Medications Medication Instructions Recorded Confirmed apixaban 5 mg tablet (Eliquis) 1 tab PO BID 09/05/21 05/08/22 citalopram 10 mg tablet 1 tab PO DAILY 09/05/21 05/08/22 donepezil 10 mg tablet 1 tab PO QPM 09/05/21 05/08/22 glimepiride 4 mg tablet 1 tab PO BID 09/05/21 05/08/22 [id number] acid 0.4 1 tab PO DAILY 09/05/21 05/08/22 mg-lycopene 300 mcg-lutein 250 mcg tablet (CertaVite Senior) acetaminophen 500 mg tablet 1 tab PO Q6H PRN pain 10/07/21 05/08/22 allopurinol 100 mg tablet 0.5 tab PO DAILY gout pain 10/07/21 05/08/22 carboxymethylcellulose sodium 0.5 1 drp ophthalmic (eye) Q4-6H PRN 10/07/21 05/08/22 % eye drops (Refresh Tears) Dry Eye(S) diphenhydramine HCl 25 mg tablet 0.5 tab PO BEDTIME PRN Insomnia 10/07/21 05/08/22 (Banophen) gabapentin 600 mg tablet 1 tab PO BID 10/17/21 05/08/22 alcohol swabs (Alcohol Prep Pads) 1 pad topical TID 12/22/21 05/08/22 insulin lispro protamine-lispro 76 unit subcut BID 12/22/21 05/08/22 100 unit/mL (50-50) subcutaneous susp (Humalog Mix 50-50 Insuln U-100) insulin syringe-needle U-100 1 mL #10 ea 12/22/21 05/08/22 31 gauge x 5/16 bumetanide 1 mg tablet 1 mg PO DAILY 05/08/22 05/08/22 magnesium oxide 250 mg PO DAILY 05/08/22 05/08/22 memantine 10 mg tablet 10 mg PO BID 05/08/22 05/08/22 metoprolol tartrate 100 mg tablet 100 mg PO BID 05/08/22 05/08/22 pantoprazole 40 mg tablet,delayed 40 mg PO DAILY 05/08/22 05/08/22 release Previous Rx's Medication Instructions Recorded atorvastatin 40 mg tablet (Lipitor) 40 mg PO BEDTIME #30 tabs 09/09/21 amlodipine 10 mg tablet 10 mg PO DAILY #30 tabs 10/10/21 silver sulfadiazine 1 % topical 1 appl topical DAILY #50 grams 10/11/21 cream (SSD) insulin glargine 100 unit/mL (3 50 unit (0.5 mL) subcut QPM #0 mL 10/21/21 mL) subcutaneous pen (Lantus Solostar U-100 Insulin) insulin lispro 100 unit/mL 10 unit (0.1 mL) subcut TIDAC #10 10/21/21 subcutaneous solution (Humalog mL U-100 Insulin) lancets (Lancets,Ultra Thin) #100 ea 10/21/21 Allergies Allergy/AdvReac Type Severity Reaction Status Date / Time No Known Allergies Allergy Verified 12/22/21 15:24 Review of Systems Review of Systems: Yes all other systems are reviewed and are negative Constitutional: Constitutional: Reports no additional constitutional complaints, Denies body ache(s), Denies chills, Denies fever(s), Denies headache(s) and Reports weakness Eyes: Eyes: Reports no additional eye complaints and Denies change in vision ENT: Reports system reviewed and no additional complaints, except as documented, Reports dizziness, Denies headache(s), Denies nasal congestion, Denies nasal discharge and Denies neck pain Cardiovascular: Cardiovascular: Reports no additional cardiovascular complaints, Denies chest pain, Denies leg edema and Denies dyspnea Respiratory: Respiratory: Reports no additional respiratory complaints, Denies cough and Denies dyspnea Gastrointestinal: Gastrointestinal: Reports no additional gastrointestinal complaints, Denies abdominal pain, Denies diarrhea, Denies nausea and Denies vomiting Genitourinary: Genitourinary: Denies urinary incontinence Musculoskeletal: Musculoskeletal: Reports no additional musculoskeletal complaints, Denies back pain, Denies arthralgias, Denies joint swelling, Denies neck pain, Denies numbness and Denies tingling Integumentary/Breasts: Skin/Breast: Reports system reviewed and no additional complaints, except as docu and Denies rash Neurologic: Reports system reviewed and no additional complaints, except as documented, Denies Abnormal speech present, Reports dizziness, Denies headache(s), Denies numbness, Denies tingling and Reports weakness PMFSH Past Medical History Attestation statement: The following information was validated with the patient. Source: old records reviewed and nursing notes reviewed Medical History Alzheimer's dementia Atrial fibrillation Diabetes Diabetes mellitus Diabetic foot infection Heart failure with preserved ejection fraction HLD (hyperlipidemia) HTN (hypertension) Kidney failure NSTEMI (non-ST elevated myocardial infarction) Trash foot Surgical History No pertinent past surgical history Family History Family History Father No problems noted. Mother No problems noted. Social History Social History Household Members: Children Housing: Apartment Do you presently have visiting nurse or other home services: No Alcohol intake: never Patient Tobacco Use Status: Never used Tobacco Advance Directives: Yes Advance Directives on File: Yes Advance Directives Date on File: 09/06/21 service: No Current occupational status: retired Physical Exam Vital Signs: Vital Signs: Last Vital Signs Temp 98.1 F 07/06/22 21:30 Pulse 72 07/06/22 21:30 Resp 18 07/06/22 21:30 BP 127/66 07/06/22 21:30 Pulse Ox 94 07/06/22 21:30 O2 Del Method 07/06/22 21:30 BMI result Body Mass Index 36.6 Const: General: cooperative, healthy appearing, comfortable and no acute distress Orientation/consciousness: oriented to person and oriented to place Limitations: no limitations HEENT: Head: Yes normal to inspection Ears: hearing grossly normal bilaterally General nose exam: Normal external nose present Face and sinus: Yes normal facial exam Mouth: Normal oral and palatal mucosa present Throat: Yes posterior oropharynx normal Eyes: General: appearance normal, both eyes and all related structures Pupils: Equal, round and reactive pupils present Neck: Neck: Yes normal visual inspection Chest: Chest palpation & inspection: normal inspection of the chest Resp: Effort & Inspection: normal respiratory effort Auscultation: clear to auscultation bilaterally Cardio: Rate: regular rate Rhythm: regular rhythm Peripheral pulses: Peripheral pulses 2+ throughout GI: Inspection: Yes normal to inspection Palpation (GI): Soft to palpation and nontender Auscultation: normal bowel sounds Back/Spine/Pelvis: Thoracic/Lumbar Spine: thoracic and lumbar spine normal to inspection Skin: General skin exam: no rashes or lesions noted Neuro: General: oriented to person, oriented to place, moves all extremities, no focal motor deficits and normal sensation to monofilament Cranial nerves: Yes CN's II-XII intact bilaterally, Yes Equal, round and reactive pupils present, Yes Bilaterally intact EOM present, Yes Nystagmus not present, Yes Normal facial strength present and Yes Midline tongue present Cognition (Neuro): normal cognition Speech: No Abnormal speech present Gait exam (Neuro): Normal gait present Motor exam (neuro): 5/5 motor strength present throughout Sensory Exam: Normal double simultaneous stimulation for sensation Extrem: General: Yes normal to inspection Course Course Course Narrative: 2100- I was called into the room by nursing. Per family the patient was dropped by EMS while being brought down the stairs from the apartment. They tell me the patient struck his back and right elbow. There was no head strike from the fall. I re-examined the patient. He does have some tenderness over the lateral elbow with full range of motion. No obvious bruising or swelling. Patient also has 2 linear abrasions noted over the left upper back and some tenderness over the posterior ribs bilaterally. No crepitus, ecchymosis, or deformity. Will check x-rays. Reevaluation(s) Reevaluation #1: 2100-labs are at baseline. Patient does have mild hyperglycemia but did not take his evening medications. Patient does take a 50 50 lispro which we do not have on formulary here. Therefore I spoke to family and they are agreeable for the patient to receive 5 units of short-acting lispro. So far things are looking okay. I did speak to the family. They are not interested in any short- term rehab placement and the son who is the patient's EDUCATION NURSE feels comfortable with him going home today if everything is normal Reevaluation #2: 4610-additional imaging shows no acute finding. UA is negative for infection. Patient will be discharged home in care of family. MDM - Weakness MDM Narrative Medical decision making narrative: 77-year-old male who presents with 1 day of generalized weakness with no other complaints except some dizziness which he describes as feeling lightheaded when he moves around. Exam is nonfocal. Vitals are stable. Due to age and patient not being a great historian due to underlying dementia will check EKG, labs, UA, chest x-ray, CT head Differential Diagnosis Differential diagnosis: Likely UTI, anemia and dehydration Medical Records Attestation: I reviewed the patient's medical records. Lab Data Attestation: I reviewed the patient's lab results. Result diagrams: 07/06/22 19:44 07/06/22 19:44 Labs: Lab Results 07/06/22 07/06/22 07/06/22 Range/Units 19:44 19:44 19:44 WBC 10.2 (4.8-10.8) X10*3/uL RBC 4.29 L (4.60-5.80) X10*6/uL Hgb 14.8 (14.0-18.0) g/dl Hct 42.5 (42.0-52.0) % MCV 99.1 H (80.0-98.0) fL MCH 34.5 H (27.0-33.0) pg MCHC 34.8 (31.0-36.0) g/dl RDW 12.0 (11.0-16.0) % Plt Count 163 (160-400) X10*3/uL MPV 10.7 (9.4-12.4) fL Immature Gran % (Auto) 0.4 (0.0-0.4) % Neut % (Auto) 73.5 H (45-73) % Lymph % (Auto) 14.4 L (20-40) % [place] % (Auto) 9.9 (2-11) % Eos % (Auto) 1.4 (0-4) % Baso % (Auto) 0.4 (0-2) % Lymph # (Auto) 1.5 (1.2-4.9) X10*3/uL [place] # (Auto) 1.0 (0.1-1.2) X10*3/uL Eos # (Auto) 0.1 (0.0-0.4) X10*3/uL Baso # (Auto) 0.0 (0.0-0.2) X10*3/uL Abs Immat Gran (auto) 0.04 H (0.00-0.03) X10*3/uL Absolute Neuts (auto) 7.5 (2.0-8.3) x10*3/uL Absolute Nucleated RBC 0.000 (0.0-0.012) X10*3/uL Nucleated RBC % (auto) 0.0 (0.0-0.2) /100WBC Sodium 135 (135-145) mmol/L Potassium 4.6 (3.3-5.1) mmol/L Chloride 92 L (96-108) mmol/L Carbon Dioxide 30 H (22-29) mmol/L Anion Gap 18 (12-20) BUN 32 H (9-16) mg/dL Creatinine 2.17 H (0.5-1.4) mg/dL Estim Creat Clear Calc 38.5 Estimated GFR 30 POC Glucose (60-115) mg/dL Random Glucose 360 H* (60-115) mg/dL Calcium 8.6 D (8.4-10.2) mg/dL Magnesium 1.8 (1.6-2.6) mg/dL Total Bilirubin 0.7 (0.0-1.0) mg/dL Direct Bilirubin 0.4 (0.0-0.5) mg/dL AST 21 (5-37) U/L ALT 21 (0-40) U/L Alkaline Phosphatase 108 (39-117) U/L Troponin I High Sens 3.8 (<3.5-35.0) ng/L Total Protein 6.8 (6.5-8.0) g/dL Albumin 3.7 (3.5-5.0) g/dL Urine Color Urine Appearance Urine pH (5.0-8.0) Ur Specific [place] (1.005-1.025) Urine Protein (NEG-TRACE) MG/DL Urine Glucose (UA) (NEG) MG/DL Urine Ketones (NEG) MG/DL Urine Blood (NEG) Urine Nitrite (NEG) Ur Leukocyte Esterase (NEG) Urine RBC (0) /HPF Urine WBC (0-4) /HPF Ur Squamous Epith Cells /LPF Urine Bacteria /LPF COVID-19 (REMY) (Negative) COVID-19 Clin Com 07/06/22 07/06/22 07/06/22 Range/Units 19:44 22:15 23:09 WBC (4.8-10.8) X10*3/uL RBC (4.60-5.80) X10*6/uL Hgb (14.0-18.0) g/dl Hct (42.0-52.0) % MCV (80.0-98.0) fL MCH (27.0-33.0) pg MCHC (31.0-36.0) g/dl RDW (11.0-16.0) % Plt Count (160-400) X10*3/uL MPV (9.4-12.4) fL Immature Gran % (Auto) (0.0-0.4) % Neut % (Auto) (45-73) % Lymph % (Auto) (20-40) % [place] % (Auto) (2-11) % Eos % (Auto) (0-4) % Baso % (Auto) (0-2) % Lymph # (Auto) (1.2-4.9) X10*3/uL [place] # (Auto) (0.1-1.2) X10*3/uL Eos # (Auto) (0.0-0.4) X10*3/uL Baso # (Auto) (0.0-0.2) X10*3/uL Abs Immat Gran (auto) (0.00-0.03) X10*3/uL Absolute Neuts (auto) (2.0-8.3) x10*3/uL Absolute Nucleated RBC (0.0-0.012) X10*3/uL Nucleated RBC % (auto) (0.0-0.2) /100WBC Sodium (135-145) mmol/L Potassium (3.3-5.1) mmol/L Chloride (96-108) mmol/L Carbon Dioxide (22-29) mmol/L Anion Gap (12-20) BUN (9-16) mg/dL Creatinine (0.5-1.4) mg/dL Estim Creat Clear Calc Estimated GFR POC Glucose 367 H* (60-115) mg/dL Random Glucose (60-115) mg/dL Calcium (8.4-10.2) mg/dL Magnesium (1.6-2.6) mg/dL Total Bilirubin (0.0-1.0) mg/dL Direct Bilirubin (0.0-0.5) mg/dL AST (5-37) U/L ALT (0-40) U/L Alkaline Phosphatase (39-117) U/L Troponin I High Sens (<3.5-35.0) ng/L Total Protein (6.5-8.0) g/dL Albumin (3.5-5.0) g/dL Urine Color YELLOW Urine Appearance CLEAR Urine pH 6.0 (5.0-8.0) Ur Specific [place] 1.010 (1.005-1.025) Urine Protein NEG (NEG-TRACE) MG/DL Urine Glucose (UA) >=1000 H (NEG) MG/DL Urine Ketones NEG (NEG) MG/DL Urine Blood TRACE (NEG) Urine Nitrite NEG (NEG) Ur Leukocyte Esterase NEG (NEG) Urine RBC 0-2 (0) /HPF Urine WBC 0-2 (0-4) /HPF Ur Squamous Epith Cells TRACE /LPF Urine Bacteria NONE /LPF COVID-19 (REMY) Negative (Negative) COVID-19 Clin Com See Note Imaging Data Chest x-ray: Attestation: I personally reviewed and interpreted this imaging study as follows: Radiologist's impression: [address] [address] XRay Report Signed Patient: Dayton Oquendo MR#: [id number] : 1945 Acct:[id number] Age/Sex: 77 / M ADM Date: 07/06/22 Loc: .ED Attending Dr: Ordering Physician: Dianne Murphy NP Date of Service: 07/06/22 Procedure(s): XR chest 2V Accession Number(s): [id number] cc: Katherine,Dianne [employer] SUPERINTENDENT~ EXAMINATION: XR CHEST CLINICAL INFORMATION: Weakness COMPARISON: Chest xray on 10/07/21 TECHNIQUE: 2 views of the chest were obtained. FINDINGS: No significant abnormality is noted involving the heart, lungs, mediastinum, bony thorax or soft tissues. XR/XR chest 2V IMPRESSION: Unremarkable examination. CT scan - head: Attestation: I personally reviewed and interpreted this imaging study as follows: Radiologist's impression: FINDINGS: There is no evidence of acute intracranial hemorrhage or territorial infarction. No abnormal mass effect or midline shift is seen. Perez to white matter differentiation is well preserved. No extra-axial fluid collections are identified. There is generalized global volume loss. There is moderate prominence of the ventricles and the sulci . There is mild hypodensity of the periventricular white matter due to chronic small vessel ischemic disease. There are vascular calcifications of the internal carotid arteries bilaterally. The osseous structures and soft tissues are normal. The mastoid air cells and visualized portions of the paranasal sinuses are well aerated. ? CT/CT head/brain wo con IMPRESSION: No acute intracranial pathology. ribs/cxr: Attestation: I personally reviewed and interpreted this imaging study as follows: Radiologist's impression: [place] [address] XRay Report Signed Patient: Dayton Oquendo MR#: [id number] : 1945 Acct:[id number] Age/Sex: 77 / M ADM Date: 07/06/22 Loc: .ED Attending Dr: Ordering Physician: Dianne Murphy NP Date of Service: 07/06/22 Procedure(s): XR ribs BI min 4V w CXR1V Accession Number(s): [id number] cc: Dianne Murphy NP~ EXAMINATION: XR RIBS, BILATERAL CLINICAL INFORMATION: Fall. Pain. COMPARISON: None TECHNIQUE: 3 views of the bilateral ribs were obtained. FINDINGS: Lungs are clear. No consolidation, pneumothorax, or pleural effusion. The cardiomediastinal silhouette and pulmonary vasculature are normal. No acute abnormality of the ribs. Ribs are intact. No fractures are identified. Multilevel degenerative spondylosis of the spine. XR/XR ribs BI min 4V w CXR1V IMPRESSION: No displaced rib fractures. ? elbow xray: Attestation: I personally reviewed and interpreted this imaging study as follows: Radiologist's impression: [facility] [address] [place] [address] XRay Report Signed Patient: Dayton Oquendo MR#: [id number] : 1945 Acct:[id number] Age/Sex: 77 / M ADM Date: 07/06/22 Loc: HO.ED Attending Dr: Ordering Physician: Dianne Murphy NP Date of Service: 07/06/22 Procedure(s): XR elbow RT 2V Accession Number(s): [id number] cc: Dianne Murphy NP~ EXAMINATION: XR ELBOW, RIGHT CLINICAL INFORMATION: Fall with pain? COMPARISON: None? TECHNIQUE: AP, lateral, and oblique views of the right elbow. FINDINGS: No fracture or dislocation. Alignment is anatomic. Joint spaces are maintained. No elbow joint effusion. The soft tissues are unremarkable. ? XR/XR elbow RT 2V IMPRESSION: Normal right elbow. ECG Data Attestation: I personally reviewed and interpreted this ECG as follows: ECG interpretation date: 07/06/22 ECG interpretation time: 19:25 Interpretation: AFib with rate of 73, normal QRS, normal QT Discharge Plan Discharge Clinical Impression: Weakness, Falls, Contusion of elbow, Back contusion Patient Disposition: Home, Self-Care Instructions: Contusion in Adults (ED), Weakness (ED) Additional Instructions: He can take all of his medications when he gets home including his insulin His blood sugar was mildly elevated while he was here in the emergency room however he did not get his normal medications before coming in. His lab work and imaging all look normal Follow-up with his primary care doctor as needed We discussed short-term rehab and or physical therapy but you declined this Prescriptions: No Action citalopram 10 mg tablet 1 tab PO DAILY glimepiride 4 mg tablet 1 tab PO BID Eliquis 5 mg tablet 1 tab PO BID donepezil 10 mg tablet 1 tab PO QPM CertaVite Senior 0.4-300-250 mg-mcg-mcg tablet 1 tab PO DAILY atorvastatin [Lipitor] 40 mg tablet 40 mg PO BEDTIME Qty: 30 0RF metoprolol tartrate 100 mg tablet 100 mg PO BID pantoprazole 40 mg tablet,delayed release (DR/EC) 40 mg PO DAILY memantine 10 mg tablet 10 mg PO BID magnesium oxide 250 mg magnesium tablet 250 mg PO DAILY allopurinol 100 mg tablet 0.5 tab PO DAILY acetaminophen 500 mg tablet 1 tab PO Q6H PRN (Reason: pain) carboxymethylcellulose sodium [Refresh Tears] 0.5 % drops 1 drp ophthalmic (eye) Q4-6H PRN (Reason: Dry Eye(S)) diphenhydramine HCl [Banophen] 25 mg tablet 0.5 tab PO BEDTIME PRN (Reason: Insomnia) amlodipine 10 mg tablet 10 mg PO DAILY Qty: 30 0RF silver sulfadiazine [SSD] 1 % cream 1 appl topical DAILY Qty: 50 0RF Rx Instructions: apply a 1.5 mm thickness gabapentin 600 mg tablet 1 tab PO BID insulin lispro [Humalog U-100 Insulin] 100 unit/mL Solution 10 unit subcut TIDAC Qty: 10 0RF Lantus Solostar U-100 Insulin 100 unit/mL (3 mL) insulin pen 50 unit subcut QPM Qty: 0 0RF (DME) lancets [Lancets,Ultra Thin] Misc See Rx Instructions .Route Qty: 100 0RF Rx Instructions: As directed alcohol swabs [Alcohol Prep Pads] Pads, Medicated 1 pad topical TID Humalog Mix 50-50 Insuln U-100 100 unit/mL (50-50) suspension 76 unit subcut BID (DME) insulin syringe-needle U-100 1 mL 31 gauge x 5/16 syringe See Rx Instructions subcut TID Qty: 10 Rx Instructions: As directed bumetanide 1 mg tablet 1 mg PO DAILY Referrals: Physician,Unknown J [Primary Care Provider] - Interventions: ED Discharge Assessment Last Done: 07/06/22 23:33 Discharge Date/Time: 07/06/22 23:33 Print Language: Prydeinig
[2022-07-06 19:50] LABS: Basophils Percent Auto 0.4 % (0-2); Eosinophils Absolute Auto 0.1 X10*3/uL (0.0-0.4); Eosinophils Percent Auto 1.4 % (0-4); Hematocrit 42.5 % (42.0-52.0); Hemoglobin 14.8 g/dl (14.0-18.0); Imm Gran Abs Auto 0.04 X10*3/uL (0.00-0.03); Imm Gran Pct Auto 0.4 % (0.0-0.4); Lymphocytes Absolute Auto 1.5 X10*3/uL (1.2-4.9); Lymphocytes Percent Auto 14.4 % (20-40); MANUAL DIFF FLAG NO; Mean Corpuscular HGB Conc 34.8 g/dl (31.0-36.0); Mean Corpuscular Hemoglobin 34.5 pg (27.0-33.0); Mean Corpuscular Volume 99.1 fL (80.0-98.0); Mean Platelet Volume 10.7 fL (9.4-12.4); Monocytes Percent Auto 9.9 % (2-11); Neutrophils Absolute Auto 7.5 x10*3/uL (2.0-8.3); Neutrophils Percent Auto 73.5 % (45-73); Platelet Count 163 X10*3/uL (160-400); Red Blood Count 4.29 X10*6/uL (4.60-5.80); White Blood Count 10.2 X10*3/uL (4.8-10.8)
[2022-07-06 20:15] LABS: Troponin-I High Sensitivity 3.8 ng/L (<3.5-35.0)
[2022-07-06 20:20] LABS: COVID-19 Test Negative (Negative)
[2022-07-06 20:21] LABS: Alanine Aminotransferase 21 U/L (0-40); Albumin Level 3.7 g/dL (3.5-5.0); Alkaline Phosphatase 108 U/L (39-117); Anion Gap 18 (12-20); Aspartate Amino Transferase 21 U/L (5-37); Bilirubin Direct 0.4 mg/dL (0.0-0.5); Bilirubin Total 0.7 mg/dL (0.0-1.0); Blood Urea Nitrogen 32 mg/dL (9-16); Calcium 8.6 mg/dL (8.4-10.2); Carbon Dioxide 30 mmol/L (22-29); Chloride 92 mmol/L (96-108); Creatinine Clr Calc Pharmacy 38.5; Estimated Glomerular Filt Rate 30; Glucose Random 360 mg/dL (60-115); Magnesium 1.8 mg/dL (1.6-2.6); Potassium 4.6 mmol/L (3.3-5.1); Sodium 135 mmol/L (135-145); Total Protein 6.8 g/dL (6.5-8.0)
[2022-07-06] MEDS: Insulin Lispro 100 UNIT/ML 3 ML VIAL SUBCUT (21:24)
[2022-07-06 21:30] VITALS: BP 127/66; PULSE 72; RESP 18; TEMP 36.7; O2SAT 94
[2022-07-06 22:19] LABS: Glucose, Whole Blood 367 mg/dL (60-115)
[2022-07-06 23:14] LABS: Appearance Urine CLEAR; Color Urine YELLOW; Glucose Urine UA >=1000 MG/DL (NEG); Leukocyte Esterase Urine NEG (NEG); Nitrite Urine NEG (NEG); UACC Culture Trigger NO; Urine Blood TRACE (NEG); Urine Ketones NEG (NEG); Urine Protein NEG (NEG-TRACE)
[2022-07-06 23:23] LABS: RBC Urine 0-2 /HPF (0); Squamous Epithelial Cell Urine TRACE /LPF; WBC Urine 0-2 /HPF (0-4)
== END 2022-07-06 23:33 | disposition home or self-care (01) ==
PROVIDERS: Nurse Practitioner Family; Emergency Provider Internal Medicine
DX: R42 Dizziness and giddiness (principal); R53.1 Weakness; S50.01XA Contusion of right elbow, initial encounter; S20.222A Contusion of left back wall of thorax, initial encounter; W04.XXXA Fall while being carried or supported by other persons, initial encounter; I10 Essential (primary) hypertension; E78.5 Hyperlipidemia, unspecified; E11.9 Type 2 diabetes mellitus without complications; Z20.822 Contact with and (suspected) exposure to COVID-19; Z79.01 Long term (current) use of anticoagulants; Z79.4 Long term (current) use of insulin; Y93.89 Activity, other specified; Y92.038 Other place in apartment as the place of occurrence of the external cause; Y99.9 Unspecified external cause status
CPT/HCPCS: 36415; 70450; 71046; 71101; 71111; 73070; 80048; 80076; 81001; 82947; 83735; 84484; 85025; 87635; 93005; 99284; 99285

== ENCOUNTER 2022-08-23 18:18 | Emergency (ER) | payer MEDICARE, SELFPAY | END 2022-08-23 20:24 | disposition left against medical advice (07) | PROVIDERS: Emergency Provider Emergency Medicine | DX: M54.9 Dorsalgia, unspecified (principal); M54.2 Cervicalgia; I10 Essential (primary) hypertension; E11.9 Type 2 diabetes mellitus without complications; E78.5 Hyperlipidemia, unspecified; I48.91 Unspecified atrial fibrillation; G30.9 Alzheimer's disease, unspecified ==

== ENCOUNTER 2022-09-19 18:35 | Emergency (ER) | payer MEDICARE, SELFPAY ==
--- NOTE | ~2022-09-19 | XR_ITS ---
EXAMINATION: XR CHEST CLINICAL INFORMATION: Chest pain. COMPARISON: Chest radiograph 07/06/2022. TECHNIQUE: Frontal view of the chest was obtained. FINDINGS: Stable appearance of the cardiomediastinal silhouette. EKG wires overlie the chest. No focal airspace opacities, pleural effusions or pneumothorax. No acute osseous abnormalities. XR/XR chest 1V IMPRESSION: No acute cardiopulmonary findings.
--- NOTE | 2022-09-19 18:40 | ECG_ITS ---
Test Reason : CHEST PAIN Blood Pressure : / mmHG Vent. Rate : 075 BPM Atrial Rate : 000 BPM P-R Int : 000 ms QRS Dur : 084 ms QT Int : 458 ms P-R-T Axes : 000 034 038 degrees QTc Int : 511 ms Atrial fibrillation with premature ventricular or aberrantly conducted complexes Possible Inferior infarct , age undetermined Abnormal ECG When compared with ECG of 06-JUL-2022 19:25, No significant changes seen Referred By: Johnson Yarbrough Electronically Signed By:CRUZITO ACEVES MD
--- NOTE | 2022-09-19 18:45 | ED.CHESTPAIN ---
HPI - Chest Pain General Chief Complaint: Chest Pain Stated Complaint: CHEST PAIN X 1HOUR Time Seen by Provider: 09/19/22 18:39 Source: patient Mode of arrival: EMS Limitations: other (Poor historian) History of Present Illness HPI narrative: 77-year-old male history of NSTEMI, atrial fibrillation anticoagulated on Eliquis, Alzheimer's dementia, coronary artery disease, hypertension, JAMES presents to the emergency department complaints of shortness of breath x2 days and chest pain x1 hour. Patient reports that he has been feeling a little bit more short of breath than usual without rest and with exertion. He is also reporting 06/04 substernal nonradiating chest pain that started about an hour prior to his arrival, patient reports that he was given medication by the ambulance which helped him, he was given 325 of aspirin, patient reports that he is pain-free at this time. His only complaint is shortness of breath. Patient poor historian however tells me he feels okay at this time. Denies fevers, chills, cough, nausea, vomiting, abdominal pain, headache, vision changes, dizziness, weakness. Related Data Home Medications Medication Instructions Recorded Confirmed apixaban 5 mg tablet (Eliquis) 1 tab PO BID 09/05/21 05/08/22 citalopram 10 mg tablet 1 tab PO DAILY 09/05/21 05/08/22 donepezil 10 mg tablet 1 tab PO QPM 09/05/21 05/08/22 glimepiride 4 mg tablet 1 tab PO BID 09/05/21 05/08/22 pmesqalw-lkc-wzvys acid 0.4 1 tab PO DAILY 09/05/21 05/08/22 mg-lycopene 300 mcg-lutein 250 mcg tablet (CertaVite Senior) acetaminophen 500 mg tablet 1 tab PO Q6H PRN pain 10/07/21 05/08/22 allopurinol 100 mg tablet 0.5 tab PO DAILY gout pain 10/07/21 05/08/22 carboxymethylcellulose sodium 0.5 1 drp ophthalmic (eye) Q4-6H PRN 10/07/21 05/08/22 % eye drops (Refresh Tears) Dry Eye(S) diphenhydramine HCl 25 mg tablet 0.5 tab PO BEDTIME PRN Insomnia 10/07/21 05/08/22 (Banophen) gabapentin 600 mg tablet 1 tab PO BID 10/17/21 05/08/22 alcohol swabs (Alcohol Prep Pads) 1 pad topical TID 12/22/21 05/08/22 insulin lispro protamine-lispro 76 unit subcut BID 12/22/21 05/08/22 100 unit/mL (50-50) subcutaneous susp (Humalog Mix 50-50 Insuln U-100) insulin syringe-needle U-100 1 mL #10 ea 12/22/21 05/08/22 31 gauge x 04/10 bumetanide 1 mg tablet 1 mg PO DAILY 05/08/22 05/08/22 magnesium oxide 250 mg PO DAILY 05/08/22 05/08/22 memantine 10 mg tablet 10 mg PO BID 05/08/22 05/08/22 metoprolol tartrate 100 mg tablet 100 mg PO BID 05/08/22 05/08/22 pantoprazole 40 mg tablet,delayed 40 mg PO DAILY 05/08/22 05/08/22 release Previous Rx's Medication Instructions Recorded atorvastatin 40 mg tablet (Lipitor) 40 mg PO BEDTIME #30 tabs 09/09/21 amlodipine 10 mg tablet 10 mg PO DAILY #30 tabs 10/10/21 silver sulfadiazine 1 % topical 1 appl topical DAILY #50 grams 10/11/21 cream (SSD) insulin glargine 100 unit/mL (3 50 unit (0.5 mL) subcut QPM #0 mL 10/21/21 mL) subcutaneous pen (Lantus Solostar U-100 Insulin) insulin lispro 100 unit/mL 10 unit (0.1 mL) subcut TIDAC #10 10/21/21 subcutaneous solution (Humalog mL U-100 Insulin) lancets (Lancets,Ultra Thin) #100 ea 10/21/21 Allergies Allergy/AdvReac Type Severity Reaction Status Date / Time No Known Allergies Allergy Verified 12/22/21 15:24 Review of Systems Review of Systems: Constitutional : No Weight loss, No Fever, No Chills, No Fatigue, No Malaise ENT/Mouth : No sore throat, No Rhinorrhea Eyes: No Eye Pain, No Swelling, No Redness Cardiovascular : + Chest Pain, + SOB, + Dyspnea on Exertion, No Orthopnea, No Edema, No Palpitations Respiratory : No Cough, No Sputum, No Wheezing Gastrointestinal : No Nausea, No Vomiting, No Diarrhea, No Constipation, No abdominal Pain, No Hematochezia, No Melena Genitourinary : No Dysuria, No Urinary Frequency, No Hematuria, Musculoskeletal : No joint pain, No Myalgias, No Joint Swelling Skin : No Skin Lesions, No rash Neuro : No Weakness, No Numbness, No Dizziness, No Headache Psych : No Anxiety/Panic, No Depression All other systems reviewed and are negative Yes all other systems are reviewed and are negative [facility] Past Medical History Attestation statement: The following information was validated with the patient. Source: old records reviewed and nursing notes reviewed Medical History Alzheimer's dementia Atrial fibrillation Diabetes Diabetes mellitus Diabetic foot infection Heart failure with preserved ejection fraction HLD (hyperlipidemia) HTN (hypertension) Kidney failure NSTEMI (non-ST elevated myocardial infarction) Trash foot Surgical History No pertinent past surgical history Family History Family History Father No problems noted. Mother No problems noted. Social History Social History Household Members: Children Housing: Apartment Do you presently have visiting nurse or other home services: No Alcohol intake: never Patient Tobacco Use Status: Never used Tobacco Use of substances other than those prescribed or required for medical reasons: No Advance Directives: Yes Advance Directives on File: Yes Advance Directives Date on File: 09/06/21 service: No Current occupational status: retired Physical Exam Vital Signs: Vital Signs: Last Vital Signs Temp 97.6 F 09/19/22 23:56 Pulse 60 09/19/22 23:56 Resp 16 09/19/22 23:56 BP 134/77 09/19/22 23:56 Pulse Ox 98 09/19/22 23:56 O2 Del Method 09/19/22 23:56 BMI result Body Mass Index 35.2 vss Appearance: Alert.? Oriented X3.? No acute distress.? Head: Normocephalic, atraumatic, no step-offs or deformities Eyes: Pupils equal, round and reactive to light.? ENT: Pharynx normal.??External ears normal, TMs normal bilaterally and EAC's normal. No pain with manipulation of external ears bilaterally. No mastoid tenderness. Neck: Normal inspection.? Neck supple.? CVS: Normal heart rate and rhythm.? Pulses normal.? Respiratory: No respiratory distress.? Breath sounds normal.? Abdomen: Soft and nontender.? Skin: Skin warm and dry.? Normal skin color.? Normal skin turgor.? Extremities: 3+ non pitting edema from knee down b/l.? No calf ttp. 4/5 strength to bilateral upper and lower extremities Back: No midline tenderness, no C-spine tenderness, full range of motion, no CVA tenderness bilaterally Neuro: Oriented X 3.? No motor deficit.? No sensory deficit. CN 2-12 intact NIHSS-0 Course Reevaluation(s) Reevaluation #1: CBC within patients baseline. Chemistry initially with potassium of 5.3, no EKG changes to suggest hyperkalemia, patient given Lokelma 10 and responded well, potassium now 4.6. Patient is noted to have an acute on chronic kidney injury responded slightly to fluids however it appears to be at patient's baseline, no need for admission for JAMES. Advised him to follow-up with his PCP for close monitoring of BUN and creatinine. Patient's troponin negative x2, ekg non ischemic. BNP of 161 however no signs of fluid overload on imaging. Urine clean. COVID negative. D-dimer within normal limits, unlikely PE/DVT and patient is anticoagulated. CXR without acute findings. Ambulatory trial was done, patient is saturating 94-95% with ambulation, was able to ambulate with steady gait with walker without difficulties feels well at complaining of shortness of breath or chest pain. Upon re-evaluation of patient he tells me he is feeling completely better, denies any medical complaints denies chest pain, shortness of breath, headache, dizziness, vision changes. Neuro exam is nonfocal . He is feeling well family at the bedside tell me he is acting his normal self and they do not note any abnormalities. At this time patient will be discharged with prompt PCP and cardiology follow-up. Patient may require Holter monitor to evaluate for dysrhythmia as or a echo to further evaluate his cardiac concerns. Time: 00:31 MDM - Chest Pain MDM Narrative Medical decision making narrative: 1849 77 yo m presents w/ cp X 1 hour now resolved after asa and sob X2 days. Poor historian PE benign. However 3+ nonpitting edema bl Will rule out ACS, CHF, pneumonia. Unlikely that this is PE as patient is anticoagulated on Eliquis. Plan- labs, imaging, urine,e kg, bnp, trop. Medical Records Data Attestation: I reviewed the patient's medical records. Lab Data Attestation: I reviewed the patient's lab results. Result diagrams: 09/19/22 19:18 09/19/22 22:51 Labs: Lab Results 09/19/22 09/19/22 09/19/22 Range/Units 19:18 19:18 19:18 WBC 8.7 (4.8-10.8) X10*3/uL RBC 4.41 L (4.60-5.80) X10*6/uL Hgb 15.0 (14.0-18.0) g/dl Hct 43.8 (42.0-52.0) % MCV 99.3 H (80.0-98.0) fL MCH 34.0 H (27.0-33.0) pg MCHC 34.2 (31.0-36.0) g/dl RDW 12.0 (11.0-16.0) % Plt Count 170 (160-400) X10*3/uL MPV 11.2 (9.4-12.4) fL Immature Gran % (Auto) 0.3 (0.0-0.4) % Neut % (Auto) 69.0 (45-73) % Lymph % (Auto) 18.7 L (20-40) % [place] % (Auto) 9.8 (2-11) % Eos % (Auto) 1.6 (0-4) % Baso % (Auto) 0.6 (0-2) % Lymph # (Auto) 1.6 (1.2-4.9) X10*3/uL [place]hing # (Auto) 0.9 (0.1-1.2) X10*3/uL Eos # (Auto) 0.1 (0.0-0.4) X10*3/uL Baso # (Auto) 0.1 (0.0-0.2) X10*3/uL Abs Immat Gran (auto) 0.03 (0.00-0.03) X10*3/uL Absolute Neuts (auto) 6.0 (2.0-8.3) x10*3/uL Absolute Nucleated RBC 0.000 (0.0-0.012) X10*3/uL Nucleated RBC % (auto) 0.0 (0.0-0.2) /100WBC D-Dimer High Sensitivty NG/ML Sodium 139 (135-145) mmol/L Potassium 5.3 H (3.3-5.1) mmol/L Chloride 95 L (96-108) mmol/L Carbon Dioxide 26 (22-29) mmol/L Anion Gap 23 H (12-20) BUN 46 H (9-16) mg/dL Creatinine 2.46 H (0.5-1.4) mg/dL Estim Creat Clear Calc 34.3 Estimated GFR 26 Random Glucose 240 H (60-115) mg/dL Calcium 9.3 D (8.4-10.2) mg/dL Magnesium 2.3 (1.6-2.6) mg/dL Troponin I High Sens < 3.5 (<3.5-35.0) ng/L B-Natriuretic Peptide (<100) pg/mL Urine Color Urine Appearance Urine pH (5.0-9.0) Ur Specific [place] (1.005-1.025) Urine Protein (Neg-Trace) mg/dL Urine Glucose (UA) (Negative) mg/dL Urine Ketones (Negative) mg/dL Urine Blood (Negative) Urine Nitrite (Negative) Ur Leukocyte Esterase (Negative) COVID-19 (REMY) (Negative) COVID-19 Clin Com 09/19/22 09/19/22 09/19/22 Range/Units 19:18 19:18 20:45 WBC (4.8-10.8) X10*3/uL RBC (4.60-5.80) X10*6/uL Hgb (14.0-18.0) g/dl Hct (42.0-52.0) % MCV (80.0-98.0) fL MCH (27.0-33.0) pg MCHC (31.0-36.0) g/dl RDW (11.0-16.0) % Plt Count (160-400) X10*3/uL MPV (9.4-12.4) fL Immature Gran % (Auto) (0.0-0.4) % Neut % (Auto) (45-73) % Lymph % (Auto) (20-40) % [place] % (Auto) (2-11) % Eos % (Auto) (0-4) % Baso % (Auto) (0-2) % Lymph # (Auto) (1.2-4.9) X10*3/uL [place] # (Auto) (0.1-1.2) X10*3/uL Eos # (Auto) (0.0-0.4) X10*3/uL Baso # (Auto) (0.0-0.2) X10*3/uL Abs Immat Gran (auto) (0.00-0.03) X10*3/uL Absolute Neuts (auto) (2.0-8.3) x10*3/uL Absolute Nucleated RBC (0.0-0.012) X10*3/uL Nucleated RBC % (auto) (0.0-0.2) /100WBC D-Dimer High Sensitivty NG/ML Sodium (135-145) mmol/L Potassium (3.3-5.1) mmol/L Chloride (96-108) mmol/L Carbon Dioxide (22-29) mmol/L Anion Gap (12-20) BUN (9-16) mg/dL Creatinine (0.5-1.4) mg/dL Estim Creat Clear Calc Estimated GFR Random Glucose (60-115) mg/dL Calcium (8.4-10.2) mg/dL Magnesium (1.6-2.6) mg/dL Troponin I High Sens (<3.5-35.0) ng/L B-Natriuretic Peptide 161 H (<100) pg/mL Urine Color Yellow Urine Appearance Clear Urine pH 5.5 (5.0-9.0) Ur Specific [place] 1.010 (1.005-1.025) Urine Protein Negative (Neg-Trace) mg/dL Urine Glucose (UA) 100 H (Negative) mg/dL Urine Ketones Negative (Negative) mg/dL Urine Blood Negative (Negative) Urine Nitrite Negative (Negative) Ur Leukocyte Esterase Negative (Negative) COVID-19 (REMY) Negative (Negative) COVID-19 Clin Com See Note 09/19/22 09/19/22 09/19/22 Range/Units 22:51 22:51 22:51 WBC (4.8-10.8) X10*3/uL RBC (4.60-5.80) X10*6/uL Hgb (14.0-18.0) g/dl Hct (42.0-52.0) % MCV (80.0-98.0) fL MCH (27.0-33.0) pg MCHC (31.0-36.0) g/dl RDW (11.0-16.0) % Plt Count (160-400) X10*3/uL MPV (9.4-12.4) fL Immature Gran % (Auto) (0.0-0.4) % Neut % (Auto) (45-73) % Lymph % (Auto) (20-40) % [place] % (Auto) (2-11) % Eos % (Auto) (0-4) % Baso % (Auto) (0-2) % Lymph # (Auto) (1.2-4.9) X10*3/uL [place] # (Auto) (0.1-1.2) X10*3/uL Eos # (Auto) (0.0-0.4) X10*3/uL Baso # (Auto) (0.0-0.2) X10*3/uL Abs Immat Gran (auto) (0.00-0.03) X10*3/uL Absolute Neuts (auto) (2.0-8.3) x10*3/uL Absolute Nucleated RBC (0.0-0.012) X10*3/uL Nucleated RBC % (auto) (0.0-0.2) /100WBC D-Dimer High Sensitivty < 150 NG/ML Sodium 138 (135-145) mmol/L Potassium 4.6 (3.3-5.1) mmol/L Chloride 96 (96-108) mmol/L Carbon Dioxide 28 (22-29) mmol/L Anion Gap 19 (12-20) BUN 43 H (9-16) mg/dL Creatinine 2.39 H (0.5-1.4) mg/dL Estim Creat Clear Calc 35.3 Estimated GFR 27 Random Glucose 252 H (60-115) mg/dL Calcium 8.4 D (8.4-10.2) mg/dL Magnesium (1.6-2.6) mg/dL Troponin I High Sens < 3.5 (<3.5-35.0) ng/L B-Natriuretic Peptide (<100) pg/mL Urine Color Urine Appearance Urine pH (5.0-9.0) Ur Specific [place] (1.005-1.025) Urine Protein (Neg-Trace) mg/dL Urine Glucose (UA) (Negative) mg/dL Urine Ketones (Negative) mg/dL Urine Blood (Negative) Urine Nitrite (Negative) Ur Leukocyte Esterase (Negative) COVID-19 (REMY) (Negative) COVID-19 Clin Com ECG Data ECG #1: Attestation: I personally reviewed and interpreted this ECG as follows: ECG interpretation date: 09/20/22 ECG interpretation time: 00:35 Prior ECG tracings: available for review Interpretation: Ventricular rate of 75, CT variable, QT/QTC slightly prolonged , EKG with atrial fibrillation with PVCs. When compared to previous EKG slightly prolonged QT however no signs of acute ischemia at this time. Critical Care Time Critical Care Time Critical Care Time: No Discharge Plan Discharge Clinical Impression: Chest pain, Shortness of breath, [id number] kidney injury Patient Disposition: Home, Self-Care Instructions: Chest Pain (DC), Shortness of Breath (ED) Additional Instructions: Take your medications as prescribed. If you were prescribed antibiotics today, it is important that you take your medication to their entirety, do not skip any doses, do not finish them early. Follow-up with your primary care provider this week. Return to the emergency department with new or worsening symptoms. Such as fevers, chills, chest pain, shortness of breath, nausea, vomiting, dizziness, headache, vision changes, lethargy In case of emergency call 911 Your laboratory studies initially showed an elevated potassium level, your given a medication and potassium level corrected itself. Please follow-up with your PCP for close observation of potassium level as well as your BUN and creatinine levels which are kidney markers. Prescriptions: No Action citalopram 10 mg tablet 1 tab PO DAILY glimepiride 4 mg tablet 1 tab PO BID Eliquis 5 mg tablet 1 tab PO BID donepezil 10 mg tablet 1 tab PO QPM CertaVite Senior 0.4-300-250 mg-mcg-mcg tablet 1 tab PO DAILY atorvastatin [Lipitor] 40 mg tablet 40 mg PO BEDTIME Qty: 30 0RF metoprolol tartrate 100 mg tablet 100 mg PO BID pantoprazole 40 mg tablet,delayed release (DR/EC) 40 mg PO DAILY memantine 10 mg tablet 10 mg PO BID magnesium oxide 250 mg magnesium tablet 250 mg PO DAILY allopurinol 100 mg tablet 0.5 tab PO DAILY acetaminophen 500 mg tablet 1 tab PO Q6H PRN (Reason: pain) carboxymethylcellulose sodium [Refresh Tears] 0.5 % drops 1 drp ophthalmic (eye) Q4-6H PRN (Reason: Dry Eye(S)) diphenhydramine HCl [Banophen] 25 mg tablet 0.5 tab PO BEDTIME PRN (Reason: Insomnia) amlodipine 10 mg tablet 10 mg PO DAILY Qty: 30 0RF silver sulfadiazine [SSD] 1 % cream 1 appl topical DAILY Qty: 50 0RF Rx Instructions: apply a 1.5 mm thickness gabapentin 600 mg tablet 1 tab PO BID insulin lispro [Humalog U-100 Insulin] 100 unit/mL Solution 10 unit subcut TIDAC Qty: 10 0RF Lantus Solostar U-100 Insulin 100 unit/mL (3 mL) insulin pen 50 unit subcut QPM Qty: 0 0RF (DME) lancets [Lancets,Ultra Thin] Misc See Rx Instructions .Route Qty: 100 0RF Rx Instructions: As directed alcohol swabs [Alcohol Prep Pads] Pads, Medicated 1 pad topical TID Humalog Mix 50-50 Insuln U-100 100 unit/mL (50-50) suspension 76 unit subcut BID (DME) insulin syringe-needle U-100 1 mL 31 gauge x 5/16 syringe See Rx Instructions subcut TID Qty: 10 Rx Instructions: As directed bumetanide 1 mg tablet 1 mg PO DAILY Referrals: [facility] [place] [facility] [Provider Group] - 1 week Physician,Unknown J [Primary Care Provider] - 2 days Stand Alone Forms: Work/School Release
[2022-09-19 18:57] VITALS: BP 127/70; BP 144/107; PULSE 110; PULSE 70; RESP 16; TEMP 37; O2SAT 94; O2SAT 95; BMI 35.2
--- NOTE | 2022-09-19 19:04 | PC.NURSE ---
Pt. on shelter monitor at this time
--- NOTE | 2022-09-19 19:04 | PC.NURSE ---
Obtaining EKG at this time. Family at bedside
[2022-09-19 19:05] VITALS: BP 127/70; PULSE 70; RESP 16; TEMP 37; O2SAT 95
--- NOTE | 2022-09-19 19:10 | PC.NURSE ---
Awaiting urine spec. at this time. Pt. attempted to urinate but cannot go at this time.
--- NOTE | 2022-09-19 19:21 | PC.NURSE ---
Blood work sent as ordered. IV access place. Still waiting on urine spec. at this time
[2022-09-19 19:23] LABS: MANUAL DIFF FLAG NO
[2022-09-19 19:25] LABS: Basophils Absolute Auto 0.1 X10*3/uL (0.0-0.2); Basophils Percent Auto 0.6 % (0-2); Eosinophils Absolute Auto 0.1 X10*3/uL (0.0-0.4); Eosinophils Percent Auto 1.6 % (0-4); Hematocrit 43.8 % (42.0-52.0); Imm Gran Abs Auto 0.03 X10*3/uL (0.00-0.03); Imm Gran Pct Auto 0.3 % (0.0-0.4); Lymphocytes Absolute Auto 1.6 X10*3/uL (1.2-4.9); Lymphocytes Percent Auto 18.7 % (20-40); Mean Corpuscular HGB Conc 34.2 g/dl (31.0-36.0); Mean Corpuscular Volume 99.3 fL (80.0-98.0); Mean Platelet Volume 11.2 fL (9.4-12.4); Monocytes Absolute Auto 0.9 X10*3/uL (0.1-1.2); Monocytes Percent Auto 9.8 % (2-11); Platelet Count 170 X10*3/uL (160-400); Red Blood Count 4.41 X10*6/uL (4.60-5.80); White Blood Count 8.7 X10*3/uL (4.8-10.8)
--- NOTE | 2022-09-19 19:31 | PC.NURSE ---
Pt. states that he is unable to urinate. Telling this RN that he feels as though he really has to go, has attempted x2 since being here at appx. 1900, but is unable to go. Notified KENJI Goncalves. PA aware, states that he has been here for less than an hour
[2022-09-19 19:38] LABS: COVID-19 Test Negative (Negative); IDNOW Serial# 16C4AD1C
[2022-09-19 19:45] LABS: Magnesium 2.3 mg/dL (1.6-2.6)
[2022-09-19 19:50] LABS: B Type Natriuretic Peptide 161 pg/mL (<100); Troponin-I High Sensitivity < 3.5 ng/L (<3.5-35.0)
[2022-09-19 20:01] VITALS: BP 127/56; PULSE 60; RESP 16; TEMP 36.8; O2SAT 96
--- NOTE | 2022-09-19 20:04 | PC.NURSE ---
Pt reports experiencing flank pain, pt is a/o x2, pt is connceted on the telemetry and it shows a-fib on the moniotr. BP is normal.Edema on his extremities + 1. will continue to monitor.
[2022-09-19 20:18] LABS: Anion Gap 23 (12-20); Blood Urea Nitrogen 46 mg/dL (9-16); Calcium 9.3 mg/dL (8.4-10.2); Carbon Dioxide 26 mmol/L (22-29); Chloride 95 mmol/L (96-108); Creatinine Clr Calc Pharmacy 34.3; Estimated Glomerular Filt Rate 26; Glucose Random 240 mg/dL (60-115); Potassium 5.3 mmol/L (3.3-5.1); Sodium 139 mmol/L (135-145)
[2022-09-19 21:00] LABS: Appearance Urine Clear; Color Urine Yellow; Glucose Urine UA 100 mg/dL (Negative); Leukocyte Esterase Urine Negative (Negative); Nitrite Urine Negative (Negative); PH 5.5 (5.0-9.0); Urine Blood Negative (Negative); Urine Ketones Negative (Negative); Urine Protein Negative (Neg-Trace)
[2022-09-19] MEDS: Sodium Zirconium Cyclosilicate 10 GM POWD.PACK PO (21:00)
[2022-09-19] MEDS: 0.9 % Sodium Chloride 1,000 ML 999 ML IV (21:00)
[2022-09-19 23:06] LABS: D Dimer High Sensitivity < 150 NG/ML
[2022-09-19 23:12] LABS: Anion Gap 19 (12-20); Blood Urea Nitrogen 43 mg/dL (9-16); Calcium 8.4 mg/dL (8.4-10.2); Carbon Dioxide 28 mmol/L (22-29); Chloride 96 mmol/L (96-108); Creatinine Clr Calc Pharmacy 35.3; Estimated Glomerular Filt Rate 27; Glucose Random 252 mg/dL (60-115); Potassium 4.6 mmol/L (3.3-5.1); Sodium 138 mmol/L (135-145)
[2022-09-19 23:19] LABS: Troponin-I High Sensitivity < 3.5 ng/L (<3.5-35.0)
[2022-09-19 23:56] VITALS: BP 134/77; PULSE 60; RESP 16; TEMP 36.4; O2SAT 98
--- NOTE | 2022-09-20 00:11 | PC.NURSE ---
Pt ambulate with a walker and assistance from staff. Heart rate increased from 64 at start point to 80. Pt able to follow instructions, coordination was good, and oxygen at 97.
--- NOTE | 2022-09-20 00:36 | ECG_ITS ---
Test Reason : REPEAT Blood Pressure : / mmHG Vent. Rate : 071 BPM Atrial Rate : 000 BPM P-R Int : 000 ms QRS Dur : 084 ms QT Int : 470 ms P-R-T Axes : 000 051 259 degrees QTc Int : 510 ms Atrial fibrillation Low voltage QRS Nonspecific T wave abnormality Anterior leads Lateral leads Prolonged QT Abnormal ECG When compared with ECG of 19-SEP-2022 19:04, Nonspecific T wave abnormality, improved in Inferior leads Referred By: Johnson Yarbrough Electronically Signed By:CRUZITO ACEVES MD
== END 2022-09-20 01:10 | disposition home or self-care (01) ==
PROVIDERS: Physician Assistant; Emergency Provider Emergency Medicine
DX: R07.89 Other chest pain (principal); R06.02 Shortness of breath; Z20.822 Contact with and (suspected) exposure to COVID-19; Z79.899 Other long term (current) drug therapy
CPT/HCPCS: 36415; 71045; 80048; 81003; 83735; 83880; 84484; 85025; 85379; 87635; 93005; 99283; 99285

== ENCOUNTER 2023-03-28 21:03 | Emergency (ER) | payer MEDICARE, SELFPAY ==
--- NOTE | ~2023-03-28 | CT_ITS ---
EXAMINATION: CT HEAD WITHOUT CONTRAST CLINICAL INFORMATION: Altered mental status. COMPARISON: CT head 07/06/2022. TECHNIQUE: Contiguous axial imaging was performed from the skull base to vertex without intravenous administration of contrast. This CT examination was performed using dose optimization techniques as appropriate, variously including the following: *Automated exposure control *Adjustment of mA and/or kV according to patient size (this includes techniques or standardized protocols for targeted exams where dose is matched to indication/reason for exam; i.e. extremities or head) *Use of iterative reconstruction technique DLP: 873 mGy-cm FINDINGS: There is no evidence of acute intracranial hemorrhage or edematous territorial infarction. A few foci of hypoattenuation in the periventricular and deep white matter are consistent with mild microangiopathy. Perez-white matter differentiation is preserved. Proportional prominence of the ventricles and sulcal spaces. No evidence for obstructive hydrocephalus. No abnormal mass effect or midline shift. No extra-axial fluid collections. Stable mild asymmetric soft tissue stranding in the right frontal scalp at the vertex (11:28). No acute osseous or soft tissue abnormalities. The mastoid air cells and paranasal sinuses are clear. Bilateral lens extraction. CT/CT head/brain wo IV con IMPRESSION: No evidence of acute intracranial hemorrhage or edematous territorial infarction.
--- NOTE | 2023-03-28 21:19 | ECG_ITS ---
Test Reason : FALL Blood Pressure : / mmHG Vent. Rate : 075 BPM Atrial Rate : 000 BPM P-R Int : 000 ms QRS Dur : 082 ms QT Int : 352 ms P-R-T Axes : 000 036 120 degrees QTc Int : 393 ms Atrial fibrillation Possible Inferior infarct (cited on or before 28-MAR-2023) Abnormal ECG When compared with ECG of 20-SEP-2022 00:51, QT has shortened Referred By: Emily Seymour Electronically Signed By:PANKAJ BRASWELL MD
[2023-03-28 21:21] VITALS: BP 116/58; BP 164/55; PULSE 74; RESP 16; TEMP 36.8; O2SAT 93; O2SAT 95; BMI 39.6
--- NOTE | 2023-03-28 21:21 | ED.GENADULT ---
HPI - General Adult General Chief complaint: Fall Stated complaint: Lethargic.Weakness,Fall 3 days ago Time Seen by Provider: 03/28/23 21:10 Source: family Mode of arrival: EMS Limitations: no limitations and other (Alzheimer's) History of Present Illness HPI narrative: Patient comes emergency room via EMS from home. The patient's son is at bedside, reports that the patient fell 3 days ago. Patient told his family that he was feeling well. For the last couple of days, he has been at baseline. Today, patient seemed more tired than usual, usually patient is able to walk but today it seemed to be harder for him. Patient has no complaints. Related Data Home Medications Medication Instructions Recorded Confirmed apixaban 5 mg tablet (Eliquis) 1 tab PO BID 09/05/21 05/08/22 citalopram 10 mg tablet 1 tab PO DAILY 09/05/21 05/08/22 donepezil 10 mg tablet 1 tab PO QPM 09/05/21 05/08/22 glimepiride 4 mg tablet 1 tab PO BID 09/05/21 05/08/22 xmtwysfo-acd-qobjy acid 0.4 1 tab PO DAILY 09/05/21 05/08/22 mg-lycopene 300 mcg-lutein 250 mcg tablet (CertaVite Senior) acetaminophen 500 mg tablet 1 tab PO Q6H PRN pain 10/07/21 05/08/22 allopurinol 100 mg tablet 0.5 tab PO DAILY gout pain 10/07/21 05/08/22 carboxymethylcellulose sodium 0.5 1 drp ophthalmic (eye) Q4-6H PRN 10/07/21 05/08/22 % eye drops (Refresh Tears) Dry Eye(S) diphenhydramine HCl 25 mg tablet 0.5 tab PO BEDTIME PRN Insomnia 10/07/21 05/08/22 (Banophen) gabapentin 600 mg tablet 1 tab PO BID 10/17/21 05/08/22 alcohol swabs (Alcohol Prep Pads) 1 pad topical TID 12/22/21 05/08/22 insulin lispro protamine-lispro 76 unit subcut BID 12/22/21 05/08/22 100 unit/mL (50-50) subcutaneous susp (Humalog Mix 50-50 Insuln U-100) insulin syringe-needle U-100 1 mL #10 ea 12/22/21 05/08/22 31 gauge x 04/10 bumetanide 1 mg tablet 1 mg PO DAILY 05/08/22 05/08/22 magnesium oxide 250 mg PO DAILY 05/08/22 05/08/22 memantine 10 mg tablet 10 mg PO BID 05/08/22 05/08/22 metoprolol tartrate 100 mg tablet 100 mg PO BID 05/08/22 05/08/22 pantoprazole 40 mg tablet,delayed 40 mg PO DAILY 05/08/22 05/08/22 release Previous Rx's Medication Instructions Recorded atorvastatin 40 mg tablet (Lipitor) 40 mg PO BEDTIME #30 tabs 09/09/21 amlodipine 10 mg tablet 10 mg PO DAILY #30 tabs 10/10/21 silver sulfadiazine 1 % topical 1 appl topical DAILY #50 grams 10/11/21 cream (SSD) insulin glargine 100 unit/mL (3 50 unit (0.5 mL) subcut QPM #0 mL 10/21/21 mL) subcutaneous pen (Lantus Solostar U-100 Insulin) insulin lispro 100 unit/mL 10 unit (0.1 mL) subcut TIDAC #10 10/21/21 subcutaneous solution (Humalog mL U-100 Insulin) lancets (Lancets,Ultra Thin) #100 ea 10/21/21 Allergies Allergy/AdvReac Type Severity Reaction Status Date / Time No Known Allergies Allergy Verified 12/22/21 15:24 Review of Systems Review of Systems: Patient states he feels well, denies everything. Patient poor historian, history of Alzheimer's Yes Unobtainable due to mental condition [facility] Past Medical History Medical History Alzheimer's dementia Atrial fibrillation Diabetes Diabetes mellitus Diabetic foot infection Heart failure with preserved ejection fraction HLD (hyperlipidemia) HTN (hypertension) Kidney failure NSTEMI (non-ST elevated myocardial infarction) Trash foot Surgical History No pertinent past surgical history Family History Family History Father No problems noted. Mother No problems noted. Social History Social History Household Members: Children Housing: Apartment Do you presently have visiting nurse or other home services: No Alcohol intake: never Patient Tobacco Use Status: Never used Tobacco Advance Directives: Yes Advance Directives on File: Yes Advance Directives Date on File: 09/06/21 service: No Current occupational status: retired Physical Exam ED Vital Signs: Vital Signs - 24 hr 03/28/23 21:21 Temperature 98.2 F Pulse Rate 74 Respiratory Rate 16 Blood Pressure 116/58 L Pulse Oximetry 93 Oxygen Delivery Method Room Air BMI result Body Mass Index 39.6 Const Other: Appearance: Alert. Oriented X1. No acute distress. Eyes: Pupils equal, round and reactive to light. ENT: Pharynx normal. Neck: Normal inspection. Neck supple. No lymph nodes noted. No crepitus CVS: Normal heart rate and rhythm. Pulses normal. Normal S1 and S2 Respiratory: No respiratory distress. Breath sounds normal. No Wheezing. No rales Abdomen: Soft and nontender. No rigidity. No distention. Skin: Skin warm and dry. Normal skin color. Normal skin turgor. Extremities: Trace pitting edema bilaterally. No Lacerations. No Rash Neuro: Oriented X1. No motor deficit. No sensory deficit. Moving all extremities. No slurred speech. CN 2 through 12 grossly intact Psych: calm, cooperative, normal affect Course Course Course Narrative: -patient denies any pain, states he feels well. -of patient's labs, imaging and EKG pending. Medical Decision Making Medical Decision Making [facility] Narrative: -interpretation of head CT, chronic changes, possible old infarctions, no intracranial bleed. -patient's white blood cell count within normal limits, creatinine at baseline, potassium at baseline, urinalysis negative for UTI. -I discussed the labs with the patient's family, also discussed with the patient if they require any additional services at home, case management/PT, they respectfully declined, they said that they are managing the patient will at her Differential Diagnosis Differential Diagnoses: The differential diagnosis associated with the presentation includes (UTI, deconditioning) Lab Data [facility] Lab Attestation statement: I reviewed the patient's lab results. 03/28/23 21:41 03/28/23 21:41 Labs: Lab Results 03/28/23 03/28/23 03/28/23 Range/Units 21:41 21:41 21:41 WBC 7.5 (4.8-10.8) X10*3/uL RBC 4.35 L (4.60-5.80) X10*6/uL Hgb 15.0 (14.0-18.0) g/dl Hct 42.7 (42.0-52.0) % MCV 98.2 H (80.0-98.0) fL MCH 34.5 H (27.0-33.0) pg MCHC 35.1 (31.0-36.0) g/dl RDW 12.1 (11.0-16.0) % Plt Count 175 (160-400) X10*3/uL MPV 11.5 (9.4-12.4) fL Immature Gran % (Auto) 0.1 (0.0-0.4) % Neut % (Auto) 63.1 (45-73) % Lymph % (Auto) 24.7 (20-40) % Kenton % (Auto) 8.6 (2-11) % Eos % (Auto) 2.7 (0-4) % Baso % (Auto) 0.8 (0-2) % Lymph # (Auto) 1.9 (1.2-4.9) X10*3/uL Kenton # (Auto) 0.6 (0.1-1.2) X10*3/uL Eos # (Auto) 0.2 (0.0-0.4) X10*3/uL Baso # (Auto) 0.1 (0.0-0.2) X10*3/uL Abs Immat Gran (auto) 0.01 (0.00-0.03) X10*3/uL Absolute Neuts (auto) 4.7 (2.0-8.3) x10*3/uL Absolute Nucleated RBC 0.000 (0.0-0.012) X10*3/uL Nucleated RBC % (auto) 0.0 (0.0-0.2) /100WBC PT 16.1 H (10.0-13.1) SEC INR 1.4 H (0.9-1.1) Sodium 135 (135-145) mmol/L Potassium 4.5 (3.3-5.1) mmol/L Chloride 95 L (96-108) mmol/L Carbon Dioxide 27 (22-29) mmol/L Anion Gap 18 (12-20) BUN 58 H (9-16) mg/dL Creatinine 2.74 H (0.5-1.4) mg/dL Estim Creat Clear Calc 28.6 Estimated GFR 23 Random Glucose 214 H (60-115) mg/dL Calcium 8.9 (8.4-10.2) mg/dL Magnesium 2.5 (1.6-2.6) mg/dL Total Bilirubin 0.7 (0.0-1.0) mg/dL Direct Bilirubin 0.2 (0.0-0.5) mg/dL AST 21 (5-37) U/L ALT 17 (0-40) U/L Alkaline Phosphatase 100 (39-117) U/L Ammonia (13-55) umol/L Troponin I High Sens (<3.5-35.0) ng/L B-Natriuretic Peptide (<100) pg/mL Total Protein 6.6 (6.5-8.0) g/dL Albumin 3.8 (3.5-5.0) g/dL Urine Color Urine Appearance Urine pH (5.0-9.0) Ur Specific Herald (1.005-1.025) Urine Protein (Neg-Trace) mg/dL Urine Glucose (UA) (Negative) mg/dL Urine Ketones (Negative) mg/dL Urine Blood (Negative) Urine Nitrite (Negative) Ur Leukocyte Esterase (Negative) 03/28/23 03/28/23 03/28/23 Range/Units 21:41 21:41 21:41 WBC (4.8-10.8) X10*3/uL RBC (4.60-5.80) X10*6/uL Hgb (14.0-18.0) g/dl Hct (42.0-52.0) % MCV (80.0-98.0) fL MCH (27.0-33.0) pg MCHC (31.0-36.0) g/dl RDW (11.0-16.0) % Plt Count (160-400) X10*3/uL MPV (9.4-12.4) fL Immature Gran % (Auto) (0.0-0.4) % Neut % (Auto) (45-73) % Lymph % (Auto) (20-40) % Kenton % (Auto) (2-11) % Eos % (Auto) (0-4) % Baso % (Auto) (0-2) % Lymph # (Auto) (1.2-4.9) X10*3/uL Kenton # (Auto) (0.1-1.2) X10*3/uL Eos # (Auto) (0.0-0.4) X10*3/uL Baso # (Auto) (0.0-0.2) X10*3/uL Abs Immat Gran (auto) (0.00-0.03) X10*3/uL Absolute Neuts (auto) (2.0-8.3) x10*3/uL Absolute Nucleated RBC (0.0-0.012) X10*3/uL Nucleated RBC % (auto) (0.0-0.2) /100WBC PT (10.0-13.1) SEC INR (0.9-1.1) Sodium (135-145) mmol/L Potassium (3.3-5.1) mmol/L Chloride (96-108) mmol/L Carbon Dioxide (22-29) mmol/L Anion Gap (12-20) BUN (9-16) mg/dL Creatinine (0.5-1.4) mg/dL Estim Creat Clear Calc Estimated GFR Random Glucose (60-115) mg/dL Calcium (8.4-10.2) mg/dL Magnesium (1.6-2.6) mg/dL Total Bilirubin (0.0-1.0) mg/dL Direct Bilirubin (0.0-0.5) mg/dL AST (5-37) U/L ALT (0-40) U/L Alkaline Phosphatase (39-117) U/L Ammonia 26 (13-55) umol/L Troponin I High Sens 3.0 (<3.5-35.0) ng/L B-Natriuretic Peptide 158 H (<100) pg/mL Total Protein (6.5-8.0) g/dL Albumin (3.5-5.0) g/dL Urine Color Urine Appearance Urine pH (5.0-9.0) Ur Specific Herald (1.005-1.025) Urine Protein (Neg-Trace) mg/dL Urine Glucose (UA) (Negative) mg/dL Urine Ketones (Negative) mg/dL Urine Blood (Negative) Urine Nitrite (Negative) Ur Leukocyte Esterase (Negative) 03/28/23 Range/Units 21:44 WBC (4.8-10.8) X10*3/uL RBC (4.60-5.80) X10*6/uL Hgb (14.0-18.0) g/dl Hct (42.0-52.0) % MCV (80.0-98.0) fL MCH (27.0-33.0) pg MCHC (31.0-36.0) g/dl RDW (11.0-16.0) % Plt Count (160-400) X10*3/uL MPV (9.4-12.4) fL Immature Gran % (Auto) (0.0-0.4) % Neut % (Auto) (45-73) % Lymph % (Auto) (20-40) % Kenton % (Auto) (2-11) % Eos % (Auto) (0-4) % Baso % (Auto) (0-2) % Lymph # (Auto) (1.2-4.9) X10*3/uL Kenton # (Auto) (0.1-1.2) X10*3/uL Eos # (Auto) (0.0-0.4) X10*3/uL Baso # (Auto) (0.0-0.2) X10*3/uL Abs Immat Gran (auto) (0.00-0.03) X10*3/uL Absolute Neuts (auto) (2.0-8.3) x10*3/uL Absolute Nucleated RBC (0.0-0.012) X10*3/uL Nucleated RBC % (auto) (0.0-0.2) /100WBC PT (10.0-13.1) SEC INR (0.9-1.1) Sodium (135-145) mmol/L Potassium (3.3-5.1) mmol/L Chloride (96-108) mmol/L Carbon Dioxide (22-29) mmol/L Anion Gap (12-20) BUN (9-16) mg/dL Creatinine (0.5-1.4) mg/dL Estim Creat Clear Calc Estimated GFR Random Glucose (60-115) mg/dL Calcium (8.4-10.2) mg/dL Magnesium (1.6-2.6) mg/dL Total Bilirubin (0.0-1.0) mg/dL Direct Bilirubin (0.0-0.5) mg/dL AST (5-37) U/L ALT (0-40) U/L Alkaline Phosphatase (39-117) U/L Ammonia (13-55) umol/L Troponin I High Sens (<3.5-35.0) ng/L B-Natriuretic Peptide (<100) pg/mL Total Protein (6.5-8.0) g/dL Albumin (3.5-5.0) g/dL Urine Color Yellow Urine Appearance Clear Urine pH 5.0 (5.0-9.0) Ur Specific Herald 1.015 (1.005-1.025) Urine Protein Negative (Neg-Trace) mg/dL Urine Glucose (UA) 250 H (Negative) mg/dL Urine Ketones Negative (Negative) mg/dL Urine Blood Negative (Negative) Urine Nitrite Negative (Negative) Ur Leukocyte Esterase Negative (Negative) Radiology Impression Discussion of test interpretation with radiology: I have reviewed the radiologist's reading. Radiologist Impression: INDINGS: There is no evidence of acute intracranial hemorrhage or edematous territorial infarction. A few foci of hypoattenuation in the periventricular and deep white matter are consistent with mild microangiopathy. Perez-white matter differentiation is preserved. Proportional prominence of the ventricles and sulcal spaces. No evidence for obstructive hydrocephalus. No abnormal mass effect or midline shift. No extra-axial fluid collections. Stable mild asymmetric soft tissue stranding in the right frontal scalp at the vertex (11:28). No acute osseous or soft tissue abnormalities. The mastoid air cells and paranasal sinuses are clear. Bilateral lens extraction. ? CT/CT head/brain wo IV con IMPRESSION: No evidence of acute intracranial hemorrhage or edematous territorial infarction. Discharge Plan Discharge Clinical Impression: Generalized weakness Patient Disposition: Home, Self-Care Instructions: Weakness (ED) Additional Instructions: Please follow-up with your primary care physician tomorrow. If you have any worsening or new symptoms, please return to the emergency room or call 911 Prescriptions: No Action citalopram 10 mg tablet 1 tab PO DAILY glimepiride 4 mg tablet 1 tab PO BID Eliquis 5 mg tablet 1 tab PO BID donepezil 10 mg tablet 1 tab PO QPM CertaVite Senior 0.4-300-250 mg-mcg-mcg tablet 1 tab PO DAILY atorvastatin [Lipitor] 40 mg tablet 40 mg PO BEDTIME Qty: 30 0RF metoprolol tartrate 100 mg tablet 100 mg PO BID pantoprazole 40 mg tablet,delayed release (DR/EC) 40 mg PO DAILY memantine 10 mg tablet 10 mg PO BID magnesium oxide 250 mg magnesium tablet 250 mg PO DAILY allopurinol 100 mg tablet 0.5 tab PO DAILY acetaminophen 500 mg tablet 1 tab PO Q6H PRN (Reason: pain) carboxymethylcellulose sodium [Refresh Tears] 0.5 % drops 1 drp ophthalmic (eye) Q4-6H PRN (Reason: Dry Eye(S)) diphenhydramine HCl [Banophen] 25 mg tablet 0.5 tab PO BEDTIME PRN (Reason: Insomnia) amlodipine 10 mg tablet 10 mg PO DAILY Qty: 30 0RF silver sulfadiazine [SSD] 1 % cream 1 appl topical DAILY Qty: 50 0RF Rx Instructions: apply a 1.5 mm thickness gabapentin 600 mg tablet 1 tab PO BID insulin lispro [Humalog U-100 Insulin] 100 unit/mL Solution 10 unit subcut TIDAC Qty: 10 0RF Lantus Solostar U-100 Insulin 100 unit/mL (3 mL) insulin pen 50 unit subcut QPM Qty: 0 0RF (DME) lancets [Lancets,Ultra Thin] Misc See Rx Instructions .Route Qty: 100 0RF Rx Instructions: As directed alcohol swabs [Alcohol Prep Pads] Pads, Medicated 1 pad topical TID Humalog Mix 50-50 Insuln U-100 100 unit/mL (50-50) suspension 76 unit subcut BID (DME) insulin syringe-needle U-100 1 mL 31 gauge x 5/16 syringe See Rx Instructions subcut TID Qty: 10 Rx Instructions: As directed bumetanide 1 mg tablet 1 mg PO DAILY
[2023-03-28 21:50] LABS: MANUAL DIFF FLAG NO
[2023-03-28 21:51] LABS: Basophils Absolute Auto 0.1 X10*3/uL (0.0-0.2); Basophils Percent Auto 0.8 % (0-2); Eosinophils Absolute Auto 0.2 X10*3/uL (0.0-0.4); Eosinophils Percent Auto 2.7 % (0-4); Hematocrit 42.7 % (42.0-52.0); Imm Gran Abs Auto 0.01 X10*3/uL (0.00-0.03); Imm Gran Pct Auto 0.1 % (0.0-0.4); Lymphocytes Absolute Auto 1.9 X10*3/uL (1.2-4.9); Lymphocytes Percent Auto 24.7 % (20-40); Mean Corpuscular HGB Conc 35.1 g/dl (31.0-36.0); Mean Corpuscular Hemoglobin 34.5 pg (27.0-33.0); Mean Corpuscular Volume 98.2 fL (80.0-98.0); Mean Platelet Volume 11.5 fL (9.4-12.4); Monocytes Absolute Auto 0.6 X10*3/uL (0.1-1.2); Monocytes Percent Auto 8.6 % (2-11); Neutrophils Absolute Auto 4.7 x10*3/uL (2.0-8.3); Neutrophils Percent Auto 63.1 % (45-73); Platelet Count 175 X10*3/uL (160-400); Red Blood Count 4.35 X10*6/uL (4.60-5.80); Red Cell Distribution Width 12.1 % (11.0-16.0); White Blood Count 7.5 X10*3/uL (4.8-10.8)
[2023-03-28 21:52] LABS: Appearance Urine Clear; Color Urine Yellow; Glucose Urine UA 250 mg/dL (Negative); Leukocyte Esterase Urine Negative (Negative); Nitrite Urine Negative (Negative); Specific Gravity - Urine 1.015 (1.005-1.025); Urine Blood Negative (Negative); Urine Ketones Negative (Negative); Urine Protein Negative (Neg-Trace)
[2023-03-28 21:57] LABS: INTERNATIONAL NORM RATIO 1.4 (0.9-1.1); Prothrombin Time 16.1 SEC (10.0-13.1)
[2023-03-28 22:10] LABS: Alanine Aminotransferase 17 U/L (0-40); Albumin Level 3.8 g/dL (3.5-5.0); Alkaline Phosphatase 100 U/L (39-117); Anion Gap 18 (12-20); Aspartate Amino Transferase 21 U/L (5-37); Bilirubin Direct 0.2 mg/dL (0.0-0.5); Bilirubin Total 0.7 mg/dL (0.0-1.0); Blood Urea Nitrogen 58 mg/dL (9-16); Calcium 8.9 mg/dL (8.4-10.2); Carbon Dioxide 27 mmol/L (22-29); Chloride 95 mmol/L (96-108); Creatinine Clr Calc Pharmacy 28.6; Estimated Glomerular Filt Rate 23; Glucose Random 214 mg/dL (60-115); Magnesium 2.5 mg/dL (1.6-2.6); Potassium 4.5 mmol/L (3.3-5.1); Sodium 135 mmol/L (135-145); Total Protein 6.6 g/dL (6.5-8.0)
[2023-03-28 22:15] LABS: B Type Natriuretic Peptide 158 pg/mL (<100)
[2023-03-28 22:19] LABS: Ammonia 26 umol/L (13-55)
== END 2023-03-28 23:27 | disposition home or self-care (01) ==
PROVIDERS: Emergency Provider Emergency Medicine
DX: R53.1 Weakness (principal); G30.9 Alzheimer's disease, unspecified; F02.80 Dementia in other diseases classified elsewhere, unspecified severity, without behavioral disturbance, psychotic disturbance, mood disturbance, and anxiety; E11.9 Type 2 diabetes mellitus without complications; I11.0 Hypertensive heart disease with heart failure; I50.30 Unspecified diastolic (congestive) heart failure; E78.5 Hyperlipidemia, unspecified; I48.91 Unspecified atrial fibrillation; Z79.01 Long term (current) use of anticoagulants; Z79.899 Other long term (current) drug therapy; Z79.4 Long term (current) use of insulin; Z79.02 Long term (current) use of antithrombotics/antiplatelets
CPT/HCPCS: 36415; 70450; 80048; 80076; 81003; 82140; 83735; 83880; 84484; 85025; 85610; 93005; 99283; 99284

== ENCOUNTER 2023-08-17 10:04 | Inpatient (IN) | payer MEDICARE, SELFPAY ==
[2023-08-17] VITALS (22 sets, daily range): BP systolic 60–135; BP diastolic 40–73; PULSE 58–103; RESP 12–25; TEMP 35.9–37.1; O2SAT 78–100; BMI 35.8
--- NOTE | 2023-08-17 | ECG_ITS ---
Test Reason : FALL Blood Pressure : / mmHG Vent. Rate : 070 BPM Atrial Rate : 000 BPM P-R Int : 000 ms QRS Dur : 074 ms QT Int : 338 ms P-R-T Axes : 000 025 143 degrees QTc Int : 365 ms Atrial fibrillation Possible Inferior infarct (cited on or before 28-MAR-2023) Abnormal ECG When compared with ECG of 28-MAR-2023 21:23, No significant change was found Referred By: Subhash Corey Electronically Signed By:LISBETH RIVERA
--- NOTE | ~2023-08-17 | US_ITS ---
EXAMINATION: US VENOUS WITH DOPPLER UPPER EXTREMITY, RIGHT CLINICAL INFORMATION: Right arm swelling and pain. COMPARISON: None available. TECHNIQUE: Ultrasound of the upper extremity is performed using compression sonography and color and pulse Doppler flow with assessment of augmentation of flow. There is also imaging and Doppler assessment of the jugular and subclavian veins. Spectral analysis with color-flow imaging is performed. FINDINGS: Respiratory variation, normal compression, and augmented flow are noted throughout the upper extremity including the axillary, brachial, cubital, and radial and ulnar veins. There is normal flow in the internal jugular and subclavian veins. There is no evidence of DVT. There is acute appearing thrombus in the right cephalic vein from the mid arm to the wrist consistent with thrombophlebitis. US/US venous duplex UE RT IMPRESSION: Acute thrombophlebitis of the cephalic vein from the wrist to the mid arm. No DVT demonstrated in the right upper extremity.
--- NOTE | ~2023-08-17 | XR_ITS ---
EXAMINATION: XR CHEST CLINICAL INFORMATION: Hypoxia and hypotension. Evaluate for pneumonia. COMPARISON: 09/19/2022 TECHNIQUE: Frontal view of the chest was obtained. FINDINGS: Lungs are well expanded. No acute abnormality. No consolidation or pleural effusion. There appears to be chronic mild prominence of the mediastinal fat. Chronic haziness at the left cardiophrenic angle corresponds to area of epicardial fat pad. Pulmonary vascular pattern is normal. The visualized bones are intact. XR/XR chest 1V IMPRESSION: No radiographic evidence of pneumonia. No acute abnormality compared to 09/19/2022.
--- NOTE | ~2023-08-17 | US_ITS ---
EXAMINATION: US VENOUS WITH DOPPLER UPPER EXTREMITY, LEFT CLINICAL INFORMATION: Pain and swelling COMPARISON: None available. TECHNIQUE: Ultrasound of the upper extremity is performed using compression sonography and color and pulse Doppler flow with assessment of augmentation of flow. There is also imaging and Doppler assessment of the jugular and subclavian veins. Spectral analysis with color-flow imaging is performed. FINDINGS: Respiratory variation, normal compression, and augmented flow are noted throughout the upper extremity including the axillary, brachial, and radial and ulnar veins. There is normal flow in the subclavian veins. There is no visible deep or superficial thrombophlebitis. If the patient's symptoms progress, a followup ultrasound in 5 -7 days might be of value to exclude proximal propagation from a nonvisualized distal arm vein. US/US venous duplex UE LT IMPRESSION: No DVT demonstrated in the left upper extremity.
--- NOTE | ~2023-08-17 | XR_ITS ---
EXAMINATION: XR CHEST CLINICAL INFORMATION: Central line placement. COMPARISON: Previous of the same day. TECHNIQUE: Frontal view of the chest was obtained. FINDINGS: The cardiomediastinal silhouette is stable. There has been interval placement of a right central line which terminates at the level of lower SVC. There is no pneumothorax. There is no focal consolidation or pleural effusion. The bony structures and soft tissues are unremarkable. XR/XR chest 1V IMPRESSION: Right central line in place. No pneumothorax.
[2023-08-17 10:18] LABS: Glucose, Whole Blood 248 mg/dL (60-115)
--- NOTE | 2023-08-17 10:45 | ED_ITS ---
HPI - Fall General Chief Complaint: Fall Stated Complaint: fall, seizure activity before fall, per ems Time Seen by Provider: 08/17/23 10:32 Source: family ( son and [id number]) Mode of arrival: EMS Limitations: language barrier ( patient's icoqijqz-my-jgq speaks Romanian and [place] Islander, signs speaks [place] Islander, flange turner was used) and altered mental status History of Present Illness HPI Narrative: 78-year-old male who is brought to emergency department for evaluation a fall at home. The information came from the patient's son and [id number]. the patient has been living with his family for approximately 3 years. According to his family he was not ill in any way until this morning when he got up to go to the bathroom. He was using his walker to go from the bedroom to the bathroom, his son was assisting him, the patient then fell backwards and the son caught him and lowered to the ground. The son states that he started shaking and the daughter long noted that the patient has eyes rolled into the back of his head. Patient had a brief moment of loss of consciousness. he did not make it to the bathroom and he was incontinent of stool. According to the family he has been eating and drinking well. He has had a cough which has been nonproductive over the last 2-3 days. He did not have a documented fever or chills. He did not complain of chest pain, shortness of breath. He had no nausea, vomiting, diarrhea or change in his bowel movements. Related Data Home Medications Medication Instructions Recorded Confirmed apixaban 5 mg tablet (Eliquis) 1 tab PO BID 09/05/21 05/08/22 citalopram 10 mg tablet 1 tab PO DAILY 09/05/21 05/08/22 donepezil 10 mg tablet 1 tab PO QPM 09/05/21 05/08/22 glimepiride 4 mg tablet 1 tab PO BID 09/05/21 05/08/22 kynihywg-whn-ubyre acid 0.4 1 tab PO DAILY 09/05/21 05/08/22 mg-lycopene 300 mcg-lutein 250 mcg tablet (CertaVite Senior) acetaminophen 500 mg tablet 1 tab PO Q6H PRN pain 10/07/21 05/08/22 allopurinol 100 mg tablet 0.5 tab PO DAILY gout pain 10/07/21 05/08/22 carboxymethylcellulose sodium 0.5 1 drp ophthalmic (eye) Q4-6H PRN 10/07/21 05/08/22 % eye drops (Refresh Tears) Dry Eye(S) diphenhydramine HCl 25 mg tablet 0.5 tab PO BEDTIME PRN Insomnia 10/07/21 05/08/22 (Banophen) gabapentin 600 mg tablet 1 tab PO BID 10/17/21 05/08/22 alcohol swabs (Alcohol Prep Pads) 1 pad topical TID 12/22/21 05/08/22 insulin lispro protamine-lispro 76 unit subcut BID 12/22/21 05/08/22 100 unit/mL (50-50) subcutaneous susp (Humalog Mix 50-50 Insuln U-100) insulin syringe-needle U-100 1 mL #10 ea 12/22/21 05/08/22 31 gauge x 5/16 bumetanide 1 mg tablet 1 mg PO DAILY 05/08/22 05/08/22 magnesium oxide 250 mg PO DAILY 05/08/22 05/08/22 memantine 10 mg tablet 10 mg PO BID 05/08/22 05/08/22 metoprolol tartrate 100 mg tablet 100 mg PO BID 05/08/22 05/08/22 pantoprazole 40 mg tablet,delayed 40 mg PO DAILY 05/08/22 05/08/22 release Previous Rx's Medication Instructions Recorded atorvastatin 40 mg tablet (Lipitor) 40 mg PO BEDTIME #30 tabs 09/09/21 amlodipine 10 mg tablet 10 mg PO DAILY #30 tabs 10/10/21 silver sulfadiazine 1 % topical 1 appl topical DAILY #50 grams 10/11/21 cream (SSD) insulin glargine 100 unit/mL (3 50 unit (0.5 mL) subcut QPM #0 mL 10/21/21 mL) subcutaneous pen (Lantus Solostar U-100 Insulin) insulin lispro 100 unit/mL 10 unit (0.1 mL) subcut TIDAC #10 10/21/21 subcutaneous solution (Humalog mL U-100 Insulin) lancets (Lancets,Ultra Thin) #100 ea 10/21/21 Allergies Allergy/AdvReac Type Severity Reaction Status Date / Time No Known Allergies Allergy Verified 12/22/21 15:24 Review of Systems 2 Review of Systems: Yes Unobtainable due to mental status [facility] Past Medical History [facility] Narrative: social history: Son and phrdxzto-sl-ert. He does not smoke cigarettes, drink alcohol use drugs Medical History Alzheimer's dementia Atrial fibrillation Diabetes Diabetes mellitus Diabetic foot infection Heart failure with preserved ejection fraction HLD (hyperlipidemia) HTN (hypertension) Kidney failure NSTEMI (non-ST elevated myocardial infarction) Trash foot Surgical History No pertinent past surgical history Family History Family History Father No problems noted. Mother No problems noted. Social History Social History Household Members: Children Housing: Apartment Do you presently have visiting nurse or other home services: No Alcohol intake: never Patient Tobacco Use Status: Never used Tobacco Smoked in Last 30 Days: No Use of substances other than those prescribed or required for medical reasons: No Advance Directives: Yes Advance Directives on File: Yes Advance Directives Date on File: 09/06/21 service: No Current occupational status: retired Physical Exam 2 Vital Signs: Vital Signs: Last Vital Signs Temp 96.7 F L 08/17/23 14:20 Pulse 62 08/17/23 14:20 Resp 14 08/17/23 14:20 BP 125/72 08/17/23 14:20 Pulse Ox 100 08/17/23 13:56 O2 Del Method Oxymask 08/17/23 13:56 O2 Flow Rate 3 08/17/23 13:56 BMI result Body Mass Index 35.8 vital signs did reveal low blood pressure otherwise unremarkable exam: General: Awake, alert in no distress, patient has dementia and according the family he has no complaints at this time Head: Normocephalic, atraumatic EENT: PERRL, Lids normal, sclera normal, conjunctiva normal, nose normal , ears normal, throat without erythema or exudates Neck: Supple, no adenopathy, trachea midline and nontender Lung: breath sounds symmetric, no wheezing, rales or rhonchi Chest: symmetric movement, nontender Heart: regular rate and rhythm, normal S1, S2 no murmurs or rubs Abdomen: soft, non-tender, nondistended, normal bowel sounds Back: no vertebral tenderness, no CVAT Extremities: no deformities, moves all extremities symmetrically, trace to 1+ pitting edema bilaterally symmetric Skin: no rashes, no lesion, normal color and warmth Neuro: Awake, alert, oriented, normal speech, cranial nerves intact, moves all extremities symmetrically Psych: Pleasant, cooperative Medications Administered Discontinued Medications Generic Name Dose Route Start Last Admin Trade Name Freq PRN Reason Stop Dose Admin Sodium Chloride 2,259 mls @ 2,259 mls/hr 08/17/23 10:43 08/17/23 12:33 Ns IV 08/17/23 11:42 Infused .Q1H STA Infusion Sodium Chloride 100 mls @ 100 mls/hr 08/17/23 12:24 08/17/23 13:26 Ns IV 08/17/23 13:23 100 mls/hr ONCE ONE Administration Sodium Chloride 100 mls @ 100 mls/hr 08/17/23 12:24 08/17/23 13:27 Ns IV 08/17/23 13:23 100 mls/hr ONCE ONE Administration Prothrombin Complex Concent ( 80 mls @ 480 mls/hr 08/17/23 12:26 08/17/23 14:17 Human) 2,000 unit/ IV IV 08/17/23 12:35 480 mls/hr Miscellaneous Supplies .Q10M ONE Administration Pantoprazole Sodium 80 mg 08/17/23 13:43 08/17/23 14:18 Pantoprazole Sodium 40 Mg/10 Ml Vial IVPUSH 08/17/23 13:44 80 mg ONCE ONE Administration Medical Decision Making Medical Decision Making MDM Narrative: 78-year-old male history of diabetes, congestive heart failure, hyperlipidemia, diabetes mellitus, atrial fibrillation, incident, Alzheimer's disease, kidney disease, diabetes, hypertension who is brought to emergency department for evaluation a fall at home. The fall was witnessed, the patient was walking to the bathroom using his walker and then fell backwards, began to shake and had a brief syncopal episode. The patient was not ill prior to his syncope. The patient the was found to be hypoxic with O2 saturation of 78% corrected with OxyMask 4 L and hypotensive with a blood pressure of 73/55 here in the emergency department. Following evaluation was ordered: CBC, CMP, influenza, COVID, PT/INR, PTT, troponin, EKG, alcohol level, BA and he, CK, drug screen, ethanol level, lactic acid, lipase, urinalysis, blood cultures x2, chest x-ray, CT scan of the head without IV contrast 1341: Patient's laboratory evaluation did reveal anemia with an H&H of 11 and 33.6- macrocytic with MCV of 104 however this is a decrease from an H&H of 15 and 42.7 on 03/28/2023 - given the patient to melanotic stools acute drop in his hematocrit and hemoglobin is most likely the cause was syncopal episode the patient was very difficult to get IV access and IV access was established by ultrasound by our physician assistant professor surgical technology Manuel Yarbrough. patient was ordered to get 2 units of O positive blood until type and screen patient also received 2 L of normal saline IV. I did discuss over tiger text, the patient's presentation Dm. he recommended admission, PPI IV and the endoscopy/colonoscopy tomorrow if patient stabilized [id number] patient was evaluated by Dr. noble patient was ordered to get Lasix 40 mg IV and then the patient will be transfused 3 rd unit of packed red blood Differential Diagnosis Differential Diagnoses: The differential diagnosis associated with the presentation includes differential diagnosis includes was not limited to syncope/ near-syncope, arrhythmia, myocardial infarction, myocardial ischemia, anemia, electrolyte abnormality, pneumonia, congestive heart failure, urinary tract infect Admission/Observation Consideration of admission/observation: Escalation of care including admission/observation considered Consult Healthcare Provider Management of the patient was discussed with: Hospitalist Lab Data MDM Lab Attestation statement: I reviewed the patient's lab results. my interpretation patient's laboratory evaluation as follows: Anemia with an H&H of 11.6.6- macrocytic with MCV of 104, INR elevated 1.3. Glucose elevated 374 BUN creatinine elevated 47 and 2.49-this is chronic. High sensitive troponin I was below detectable limits. Ethanol was below detectable limits. COVID influenza were negative. 08/17/23 10:44 08/17/23 10:40 Labs: Lab Results 08/17/23 08/17/23 08/17/23 Range/Units 10:15 10:40 10:44 WBC 9.9 (4.8-10.8) X10*3/uL RBC 3.23 L D (4.60-5.80) X10*6/uL Hgb 11.4 L D (14.0-18.0) g/dl Hct 33.6 L D (42.0-52.0) % MCV 104.0 H (80.0-98.0) fL MCH 35.3 H (27.0-33.0) pg MCHC 33.9 (31.0-36.0) g/dl RDW 12.5 (11.0-16.0) % Plt Count 207 (160-400) X10*3/uL MPV 11.8 (9.4-12.4) fL Immature Gran % (Auto) 0.6 H (0.0-0.4) % Neut % (Auto) 60.6 (45-73) % Lymph % (Auto) 27.6 (20-40) % Ada % (Auto) 8.5 (2-11) % Eos % (Auto) 2.2 (0-4) % Baso % (Auto) 0.5 (0-2) % Lymph # (Auto) 2.7 (1.2-4.9) X10*3/uL Ada # (Auto) 0.8 (0.1-1.2) X10*3/uL Eos # (Auto) 0.2 (0.0-0.4) X10*3/uL Baso # (Auto) 0.1 (0.0-0.2) X10*3/uL Abs Immat Gran (auto) 0.06 H (0.00-0.03) X10*3/uL Absolute Neuts (auto) 6.0 (2.0-8.3) x10*3/uL Absolute Nucleated RBC 0.000 (0.0-0.012) X10*3/uL Nucleated RBC % (auto) 0.0 (0.0-0.2) /100WBC PT (11.1-13.3) SEC INR (0.9-1.1) APTT (26.0-36.4) SEC VBG pH (7.32-7.43) VBG pCO2 mmHg VBG pO2 mmHg VBG HCO3 (22-26) mmol/L VBG O2 Saturation % VBG Base Excess mmol/L Sodium 136 (135-145) mmol/L Potassium 5.1 (3.3-5.1) mmol/L Chloride 97 (96-108) mmol/L Carbon Dioxide 26 (22-29) mmol/L Anion Gap 18 (12-20) BUN 47 H (9-16) mg/dL Creatinine 2.49 H (0.5-1.4) mg/dL Estim Creat Clear Calc 31.7 Estimated GFR 25 POC Glucose 248 H (60-115) mg/dL Random Glucose 374 H* (60-115) mg/dL Lactic Acid (0.5-2.0) mmol/L Calcium 8.0 L D (8.4-10.2) mg/dL Total Bilirubin 0.6 (0.0-1.0) mg/dL AST 20 (5-37) U/L ALT 14 (0-40) U/L Alkaline Phosphatase 81 (39-117) U/L Total Creatine Kinase 54 (38-174) U/L Troponin I High Sens < 2.7 (<3.5-35.0) ng/L B-Natriuretic Peptide 147 H (<100) pg/mL Total Protein 5.8 L (6.5-8.0) g/dL Albumin 3.1 L (3.5-5.0) g/dL Lipase 12 (8-78) U/L Stool Occult Blood (NEGATIVE) Ethyl Alcohol < 10 mg/dL COVID-19 (REMY) (Negative) COVID-19 Clin Com Influenza Type A (STEPHANIE) (Negative) Influenza Type B (STEPHANIE) (Negative) Influenza A & B Note Blood Type Antibody Screen Crossmatch 08/17/23 08/17/23 08/17/23 Range/Units 10:45 10:49 11:16 WBC (4.8-10.8) X10*3/uL RBC (4.60-5.80) X10*6/uL Hgb (14.0-18.0) g/dl Hct (42.0-52.0) % MCV (80.0-98.0) fL MCH (27.0-33.0) pg MCHC (31.0-36.0) g/dl RDW (11.0-16.0) % Plt Count (160-400) X10*3/uL MPV (9.4-12.4) fL Immature Gran % (Auto) (0.0-0.4) % Neut % (Auto) (45-73) % Lymph % (Auto) (20-40) % Ada % (Auto) (2-11) % Eos % (Auto) (0-4) % Baso % (Auto) (0-2) % Lymph # (Auto) (1.2-4.9) X10*3/uL Ada # (Auto) (0.1-1.2) X10*3/uL Eos # (Auto) (0.0-0.4) X10*3/uL Baso # (Auto) (0.0-0.2) X10*3/uL Abs Immat Gran (auto) (0.00-0.03) X10*3/uL Absolute Neuts (auto) (2.0-8.3) x10*3/uL Absolute Nucleated RBC (0.0-0.012) X10*3/uL Nucleated RBC % (auto) (0.0-0.2) /100WBC PT 16.0 H (11.1-13.3) SEC INR 1.3 H (0.9-1.1) APTT 30.8 (26.0-36.4) SEC VBG pH 7.29 L (7.32-7.43) VBG pCO2 58 mmHg VBG pO2 37 mmHg VBG HCO3 28 H (22-26) mmol/L VBG O2 Saturation 51.0 % VBG Base Excess 1.0 mmol/L Sodium (135-145) mmol/L Potassium (3.3-5.1) mmol/L Chloride (96-108) mmol/L Carbon Dioxide (22-29) mmol/L Anion Gap (12-20) BUN (9-16) mg/dL Creatinine (0.5-1.4) mg/dL Estim Creat Clear Calc Estimated GFR POC Glucose (60-115) mg/dL Random Glucose (60-115) mg/dL Lactic Acid (0.5-2.0) mmol/L Calcium (8.4-10.2) mg/dL Total Bilirubin (0.0-1.0) mg/dL AST (5-37) U/L ALT (0-40) U/L Alkaline Phosphatase (39-117) U/L Total Creatine Kinase (38-174) U/L Troponin I High Sens (<3.5-35.0) ng/L B-Natriuretic Peptide (<100) pg/mL Total Protein (6.5-8.0) g/dL Albumin (3.5-5.0) g/dL Lipase (8-78) U/L Stool Occult Blood (NEGATIVE) Ethyl Alcohol mg/dL COVID-19 (REMY) Negative (Negative) COVID-19 Clin Com See Note Influenza Type A (STEPHANIE) Negative (Negative) Influenza Type B (STEPHANIE) Negative (Negative) Influenza A & B Note See Note Blood Type Antibody Screen Crossmatch 08/17/23 08/17/23 08/17/23 Range/Units 11:58 12:18 13:08 WBC (4.8-10.8) X10*3/uL RBC (4.60-5.80) X10*6/uL Hgb (14.0-18.0) g/dl Hct (42.0-52.0) % MCV (80.0-98.0) fL MCH (27.0-33.0) pg MCHC (31.0-36.0) g/dl RDW (11.0-16.0) % Plt Count (160-400) X10*3/uL MPV (9.4-12.4) fL Immature Gran % (Auto) (0.0-0.4) % Neut % (Auto) (45-73) % Lymph % (Auto) (20-40) % Ada % (Auto) (2-11) % Eos % (Auto) (0-4) % Baso % (Auto) (0-2) % Lymph # (Auto) (1.2-4.9) X10*3/uL Ada # (Auto) (0.1-1.2) X10*3/uL Eos # (Auto) (0.0-0.4) X10*3/uL Baso # (Auto) (0.0-0.2) X10*3/uL Abs Immat Gran (auto) (0.00-0.03) X10*3/uL Absolute Neuts (auto) (2.0-8.3) x10*3/uL Absolute Nucleated RBC (0.0-0.012) X10*3/uL Nucleated RBC % (auto) (0.0-0.2) /100WBC PT (11.1-13.3) SEC INR (0.9-1.1) APTT (26.0-36.4) SEC VBG pH (7.32-7.43) VBG pCO2 mmHg VBG pO2 mmHg VBG HCO3 (22-26) mmol/L VBG O2 Saturation % VBG Base Excess mmol/L Sodium (135-145) mmol/L Potassium (3.3-5.1) mmol/L Chloride (96-108) mmol/L Carbon Dioxide (22-29) mmol/L Anion Gap (12-20) BUN (9-16) mg/dL Creatinine (0.5-1.4) mg/dL Estim Creat Clear Calc Estimated GFR POC Glucose (60-115) mg/dL Random Glucose (60-115) mg/dL Lactic Acid 3.9 H* (0.5-2.0) mmol/L Calcium (8.4-10.2) mg/dL Total Bilirubin (0.0-1.0) mg/dL AST (5-37) U/L ALT (0-40) U/L Alkaline Phosphatase (39-117) U/L Total Creatine Kinase (38-174) U/L Troponin I High Sens (<3.5-35.0) ng/L B-Natriuretic Peptide (<100) pg/mL Total Protein (6.5-8.0) g/dL Albumin (3.5-5.0) g/dL Lipase (8-78) U/L Stool Occult Blood POSITIVE (NEGATIVE) Ethyl Alcohol mg/dL COVID-19 (REMY) (Negative) COVID-19 Clin Com Influenza Type A (STEPHANIE) (Negative) Influenza Type B (STEPHANIE) (Negative) Influenza A & B Note Blood Type A Positive Antibody Screen NEGATIVE Crossmatch See Detail Critical Care Time Critical Care Time Critical Care Time: Yes Total Critical Care Time: 130 Attestation: Critical Care: The patient was critically ill with a high probability of imminent or life threatening deterioration. I spent greater than 30 minutes of discontinuous time evaluating the patient,delivering critical care at the bedside, discussing and evaluating pertinent data with consultants. Critical care time does not include time spent performing separately billable procedures or teaching. Total time spent performing critical care was 130 minutes. Discharge Plan Discharge Clinical Impression: Acute gastrointestinal bleeding, Acute anemia Syncope Qualifiers: Encounter type: initial encounter Prescriptions: No Action citalopram 10 mg tablet 1 tab PO DAILY glimepiride 4 mg tablet 1 tab PO BID Eliquis 5 mg tablet 1 tab PO BID donepezil 10 mg tablet 1 tab PO QPM CertaVite Senior 0.4-300-250 mg-mcg-mcg tablet 1 tab PO DAILY atorvastatin [Lipitor] 40 mg tablet 40 mg PO BEDTIME Qty: 30 0RF metoprolol tartrate 100 mg tablet 100 mg PO BID pantoprazole 40 mg tablet,delayed release (DR/EC) 40 mg PO DAILY memantine 10 mg tablet 10 mg PO BID magnesium oxide 250 mg magnesium tablet 250 mg PO DAILY allopurinol 100 mg tablet 0.5 tab PO DAILY acetaminophen 500 mg tablet 1 tab PO Q6H PRN (Reason: pain) carboxymethylcellulose sodium [Refresh Tears] 0.5 % drops 1 drp ophthalmic (eye) Q4-6H PRN (Reason: Dry Eye(S)) diphenhydramine HCl [Banophen] 25 mg tablet 0.5 tab PO BEDTIME PRN (Reason: Insomnia) amlodipine 10 mg tablet 10 mg PO DAILY Qty: 30 0RF silver sulfadiazine [SSD] 1 % cream 1 appl topical DAILY Qty: 50 0RF Rx Instructions: apply a 1.5 mm thickness gabapentin 600 mg tablet 1 tab PO BID insulin lispro [Humalog U-100 Insulin] 100 unit/mL Solution 10 unit subcut TIDAC Qty: 10 0RF Lantus Solostar U-100 Insulin 100 unit/mL (3 mL) insulin pen 50 unit subcut QPM Qty: 0 0RF (DME) lancets [Lancets,Ultra Thin] Misc See Rx Instructions .Route Qty: 100 0RF Rx Instructions: As directed alcohol swabs [Alcohol Prep Pads] Pads, Medicated 1 pad topical TID Humalog Mix 50-50 Insuln U-100 100 unit/mL (50-50) suspension 76 unit subcut BID (DME) insulin syringe-needle U-100 1 mL 31 gauge x 5/16 syringe See Rx Instructions subcut TID Qty: 10 Rx Instructions: As directed bumetanide 1 mg tablet 1 mg PO DAILY
[2023-08-17] MEDS: 0.9 % Sodium Chloride 2,259 ML 2259 ML IV (10:53)
[2023-08-17 10:55] LABS: MANUAL DIFF FLAG NO
[2023-08-17 10:58] LABS: VBG HCO3 28 mmol/L (22-26); VBG pCO2 58 mmHg; VBG pH 7.29 (7.32-7.43); VBG pO2 37 mmHg
--- NOTE | 2023-08-17 10:58 | PC.NURSE ---
pt BIBA from home where he lives with his son. pt wolof speaking only. pt had a slight fall according to family where he uses a walker , pt lowered himself to the floor but then fell backwards. pt with no HS, no LOC, pt is on thinners. pt with no complaints. he is incontinent of stool .family reports pt had ? seizure like activity where his eyes rolled back and he was shaking . pt BP low, 60/40. was brought in on a NRB at 15L as EMS unable to get O2. adult forehead prob started on pt and found his SaO2 to be 77% on Room air. changed pt to oxymask at 4L satting at 99% 20G IV placed in RAC. sepsis fluids started. will attempt for second IV. anticipate blood cultures to be drawn.
[2023-08-17 10:59] LABS: Venous Blood Gas Refer to POC result
[2023-08-17 11:11] LABS: INTERNATIONAL NORM RATIO 1.3 (0.9-1.1)
[2023-08-17 11:12] LABS: Basophils Absolute Auto 0.1 X10*3/uL (0.0-0.2); Basophils Percent Auto 0.5 % (0-2); Eosinophils Absolute Auto 0.2 X10*3/uL (0.0-0.4); Eosinophils Percent Auto 2.2 % (0-4); Hematocrit 33.6 % (42.0-52.0); Hemoglobin 11.4 g/dl (14.0-18.0); Imm Gran Abs Auto 0.06 X10*3/uL (0.00-0.03); Imm Gran Pct Auto 0.6 % (0.0-0.4); Lymphocytes Absolute Auto 2.7 X10*3/uL (1.2-4.9); Lymphocytes Percent Auto 27.6 % (20-40); Mean Corpuscular HGB Conc 33.9 g/dl (31.0-36.0); Mean Corpuscular Hemoglobin 35.3 pg (27.0-33.0); Mean Platelet Volume 11.8 fL (9.4-12.4); Monocytes Absolute Auto 0.8 X10*3/uL (0.1-1.2); Monocytes Percent Auto 8.5 % (2-11); Neutrophils Percent Auto 60.6 % (45-73); Platelet Count 207 X10*3/uL (160-400); Red Blood Count 3.23 X10*6/uL (4.60-5.80); Red Cell Distribution Width 12.5 % (11.0-16.0); White Blood Count 9.9 X10*3/uL (4.8-10.8)
--- NOTE | 2023-08-17 11:13 | PC.NURSE ---
family refusing to allow ED staff to attempt to get the blood work. informed family of protocol and necessity for rapid blood work. family reports I dont care, hes not a toy, get a professional . called placed to phlebotomy at 11:12 who reports it might be a while
[2023-08-17 11:14] LABS: Partial Thromboplastin Time 30.8 SEC (26.0-36.4)
--- NOTE | 2023-08-17 11:23 | PC.NURSE ---
MD made aware of delay in lab work including blood cultures due to family request for phlebotomy.
[2023-08-17 11:26] LABS: Troponin-I High Sensitivity < 2.7 ng/L (<3.5-35.0)
[2023-08-17 11:32] LABS: Alanine Aminotransferase 14 U/L (0-40); Albumin Level 3.1 g/dL (3.5-5.0); Alkaline Phosphatase 81 U/L (39-117); Anion Gap 18 (12-20); Aspartate Amino Transferase 20 U/L (5-37); Bilirubin Total 0.6 mg/dL (0.0-1.0); Blood Urea Nitrogen 47 mg/dL (9-16); Carbon Dioxide 26 mmol/L (22-29); Chloride 97 mmol/L (96-108); Creatinine Clr Calc Pharmacy 31.7; Estimated Glomerular Filt Rate 25; Ethanol < 10 mg/dL; Glucose Random 374 mg/dL (60-115); Lipase 12 U/L (8-78); Potassium 5.1 mmol/L (3.3-5.1); Sodium 136 mmol/L (135-145); Total Protein 5.8 g/dL (6.5-8.0)
--- NOTE | 2023-08-17 11:40 | PC.NURSE ---
pt incontinent of stool. now that BP has slightly corrected incontinence care provided. noticed large amound maroon colored stool in brief c/o GI bleed. made aware, OBX ordered
[2023-08-17 11:41] LABS: B Type Natriuretic Peptide 147 pg/mL (<100)
--- NOTE | 2023-08-17 11:45 | PC.NURSE ---
phlebotomy at bedside to attempt blood draw
[2023-08-17 11:50] LABS: COVID-19 Test Negative (Negative); IDNOW Serial# 08D9AD1C
[2023-08-17 11:51] LABS: IDNOW Serial# 9DB6401D
[2023-08-17 11:52] LABS: Influenza A Negative (Negative); Influenza B2 Negative (Negative)
--- NOTE | 2023-08-17 12:20 | PC.NURSE ---
pt incontinent of another large amount of maroon colored stool. 2 units PRBCs ordered. plan to administer each over 30 min.
[2023-08-17 12:23] LABS: Lactic Acid 3.9 mmol/L (0.5-2.0)
[2023-08-17 12:24] LABS: OBS1 POSITIVE (NEGATIVE)
[2023-08-17 12:25] LABS: OBS Int Ctl Valid YES
--- NOTE | 2023-08-17 12:39 | PC.NURSE ---
pt on elequis, last took med yesterday
[2023-08-17 14:03] LABS: Reflex Lactate? Lactic Acid Added
[2023-08-17] MEDS: Hum Prothrombin Cplx(PCC)4Fact 2,000 UNIT in Container,Empty 0 ML 480 UNIT IV ×2 (14:17→19:35)
[2023-08-17] MEDS: Pantoprazole Sodium 40 MG/10 ML VIAL 80 MG IVPUSH (14:18)
--- NOTE | 2023-08-17 15:15 | PC.NURSE ---
pt with 20G IV in RAC as well as u/s guided 18G in the LAC
--- NOTE | 2023-08-17 15:22 | P.HPHOSP_ITS ---
History of Present Illness Date of Service: 08/17/23 Chief Complaint: GIB 78-year-old male who is brought to emergency department for evaluation a fall at home. The information came from the patient's son and [id number]. the patient has been living with his family for approximately 3 years. According to his family he was not ill in any way until this morning when he got up to go to the bathroom. He was using his walker to go from the bedroom to the bathroom, his son was assisting him, the patient then fell backwards and the son caught him and lowered to the ground. The son states that he started shaking and the daughter long noted that the patient has eyes rolled into the back of his head. Patient had a brief moment of loss of consciousness. he did not make it to the bathroom and he was incontinent of stool. According to the family he has been eating and drinking well. He has had a cough which has been nonproductive over the last 2-3 days. He did not have a documented fever or chills. He did not complain of chest pain, shortness of breath. He had no nausea, vomiting, diarrhea or change in his bowel movements. In ER..HGb stable initially. Multiple episodes of maroon stool. Given 2 units of blood 3rd unit pending. Lasix to be given before 3rd unit. FFP ordered to be given after. Also receive Concentra. Review of Systems 2 Review of Systems: Denies chest pain Denies shortness of breath Denies nausea vomiting diarrhea Denies fever chills [facility] Medical History (Updated 08/17/23 @ 15:37 by Sharan Pelletier DO) Trash foot Diabetic foot infection Heart failure with preserved ejection fraction HLD (hyperlipidemia) Diabetes mellitus Atrial fibrillation NSTEMI (non-ST elevated myocardial infarction) Alzheimer's dementia Kidney failure Diabetes HTN (hypertension) Family History Father No problems noted. Mother No problems noted. Surgical History No pertinent past surgical history Social History Household Members: Children Housing: Apartment Do you presently have visiting nurse or other home services: No Alcohol intake: never Patient Tobacco Use Status: Never used Tobacco Smoked in Last 30 Days: No Use of substances other than those prescribed or required for medical reasons: No Advance Directives: Yes Advance Directives on File: Yes Advance Directives Date on File: 09/06/21 service: No Current occupational status: retired Meds Allergies Allergy/AdvReac Type Severity Reaction Status Date / Time No Known Allergies Allergy Verified 12/22/21 15:24 Active Medications: Current Medications Acetaminophen (Acetaminophen 325 Mg Tablet) 650 mg PO Q6H PRN PRN Reason: Pain, Mild (Pain Scale 1-3) Sodium Chloride (Ns) 100 mls @ 100 mls/hr IV ONCE ONE Stop: 08/17/23 15:29 Sodium Chloride (Ns) 100 mls @ 100 mls/hr IV ONCE ONE Stop: 08/17/23 16:14 Ondansetron HCl (Ondansetron Hcl 4 Mg/2 Ml Vial) 4 mg IVPUSH Q8H PRN PRN Reason: Nausea and Vomiting Pantoprazole Sodium (Pantoprazole Sodium 40 Mg/10 Ml Vial) 80 mg IVPUSH Q12H REYNALDO Sodium Chloride (0.9 % Sodium Chloride Flush 3 Ml Syringe) 3 ml IVFLUSH QSHIFT REYNALDO Home Medications Medication Instructions Recorded Confirmed Last Taken Type apixaban 5 mg tablet (Eliquis) 1 tab PO BID 09/05/21 08/17/23 10/17/21 History donepezil 10 mg tablet 1 tab PO QPM 09/05/21 08/17/23 10/16/21 History glimepiride 4 mg tablet 1 tab PO BID 09/05/21 08/17/23 10/17/21 History oxmzcwgn-ety-tvojr acid 0.4 1 tab PO DAILY 09/05/21 08/17/23 10/17/21 History mg-lycopene 300 mcg-lutein 250 mcg tablet ([facility] acetaminophen 500 mg tablet 1 tab PO Q6H PRN pain 10/07/21 08/17/23 10/17/21 History allopurinol 100 mg tablet 0.5 tab PO DAILY gout pain 10/07/21 08/17/23 10/17/21 History carboxymethylcellulose sodium 0.5 1 drp ophthalmic (eye) Q4-6H PRN 10/07/21 08/17/23 10/17/21 History % eye drops (Refresh Tears) Dry Eye(S) diphenhydramine HCl 25 mg tablet 0.5 tab PO BEDTIME PRN Insomnia 10/07/21 08/17/23 10/16/21 History (Banophen) gabapentin 600 mg tablet 1 tab PO BID 10/17/21 08/17/23 10/17/21 History insulin syringe-needle U-100 1 mL #10 ea 12/22/21 05/08/22 Unknown History 31 gauge x 04/10 bumetanide 1 mg tablet 1 mg PO DAILY@0900,1200 05/08/22 08/17/23 Unknown History magnesium oxide 250 mg PO DAILY 05/08/22 08/17/23 Unknown History memantine 10 mg tablet 10 mg PO BID 05/08/22 08/17/23 Unknown History metoprolol tartrate 100 mg tablet 100 mg PO BID 05/08/22 08/17/23 Unknown History amlodipine 5 mg tablet 5 mg PO QAM 08/17/23 08/17/23 Unknown History cetirizine 10 mg tablet 10 mg PO DAILY congestion 08/17/23 08/17/23 Unknown History citalopram 20 mg tablet 20 mg PO BEDTIME 08/17/23 08/17/23 Unknown History fluocinolone 0.01 % topical body 1 appl topical Q2W 08/17/23 08/17/23 Unknown History oil insulin NPH-regular 70-30 U-100 76 unit subcut BID 08/17/23 08/17/23 Unknown History insulin 100 unit/mL subcutaneous pen (Novolin 70-30 FlexPen U-100 Insulin) ketoconazole 2 % shampoo 1 appl topical Q2W 08/17/23 08/17/23 Unknown History triamcinolone acetonide 0.1 % 1 appl topical BID 08/17/23 08/17/23 Unknown History topical cream Physical Exam 2 Vital Signs and Narrative: Vital Signs: Last Vital Signs Temp 96.7 F L 08/17/23 14:20 Pulse 75 08/17/23 14:49 Resp 17 08/17/23 14:49 BP 119/69 08/17/23 14:49 Pulse Ox 100 08/17/23 14:49 O2 Del Method Aerosol Mask 08/17/23 14:49 O2 Flow Rate 3 08/17/23 14:49 BMI result Body Mass Index 35.8 Const: Other: Awake alert no acute distress Resp: Other: Clear to auscultation bilaterally no rales rhonchi or wheezes Cardio: Other: No S4; positive S1-S2; no S3 murmurs rubs or gallops GI: Other: Soft nontender nondistended normoactive bowel sounds : Other: Maroon heme-positive stool noted Neuro: Other: Cranial nerves 2-12 grossly intact as tested. Motor 5/5 all extremities sensation intact. Not ambulated Extrem: Other: No edema bilaterally Results Labs 08/17/23 10:44 08/17/23 10:40 Labs: Laboratory Results - last 24 hr 08/17/23 08/17/23 08/17/23 10:15 10:40 10:44 MCV 104.0 H MCH 35.3 H MCHC 33.9 RDW 12.5 Plt Count 207 MPV 11.8 Immature Gran % (Auto) 0.6 H Neut % (Auto) 60.6 Lymph % (Auto) 27.6 [place] % (Auto) 8.5 Eos % (Auto) 2.2 Baso % (Auto) 0.5 Lymph # (Auto) 2.7 [place] # (Auto) 0.8 Eos # (Auto) 0.2 Baso # (Auto) 0.1 Abs Immat Gran (auto) 0.06 H Absolute Neuts (auto) 6.0 Absolute Nucleated RBC 0.000 Nucleated RBC % (auto) 0.0 PT INR APTT VBG pH VBG pCO2 VBG pO2 VBG HCO3 VBG O2 Saturation VBG Base Excess Anion Gap 18 Estim Creat Clear Calc 31.7 Estimated GFR 25 POC Glucose 248 H Random Glucose 374 H* Lactic Acid Calcium 8.0 L D Total Bilirubin 0.6 AST 20 ALT 14 Alkaline Phosphatase 81 Total Creatine Kinase 54 B-Natriuretic Peptide 147 H Total Protein 5.8 L Albumin 3.1 L Lipase 12 Stool Occult Blood Ethyl Alcohol < 10 COVID-19 (REMY) COVID-19 Clin Com Influenza Type A (STEPHANIE) Influenza Type B (STEPHANIE) Influenza A & B Note Blood Type Antibody Screen Crossmatch 08/17/23 08/17/23 08/17/23 10:45 10:49 11:16 MCV MCH MCHC RDW Plt Count MPV Immature Gran % (Auto) Neut % (Auto) Lymph % (Auto) [place] % (Auto) Eos % (Auto) Baso % (Auto) Lymph # (Auto) [place] # (Auto) Eos # (Auto) Baso # (Auto) Abs Immat Gran (auto) Absolute Neuts (auto) Absolute Nucleated RBC Nucleated RBC % (auto) PT 16.0 H INR 1.3 H APTT 30.8 VBG pH 7.29 L VBG pCO2 58 VBG pO2 37 VBG HCO3 28 H VBG O2 Saturation 51.0 VBG Base Excess 1.0 Anion Gap Estim Creat Clear Calc Estimated GFR POC Glucose Random Glucose Lactic Acid Calcium Total Bilirubin AST ALT Alkaline Phosphatase Total Creatine Kinase B-Natriuretic Peptide Total Protein Albumin Lipase Stool Occult Blood Ethyl Alcohol COVID-19 (REMY) Negative COVID-19 Cigital Com See Note Influenza Type A (STEPHANIE) Negative Influenza Type B (STEPHANIE) Negative Influenza A & B Note See Note Blood Type Antibody Screen Crossmatch 08/17/23 08/17/23 08/17/23 11:58 12:18 13:08 MCV MCH MCHC RDW Plt Count MPV Immature Gran % (Auto) Neut % (Auto) Lymph % (Auto) [place] % (Auto) Eos % (Auto) Baso % (Auto) Lymph # (Auto) [place] # (Auto) Eos # (Auto) Baso # (Auto) Abs Immat Gran (auto) Absolute Neuts (auto) Absolute Nucleated RBC Nucleated RBC % (auto) PT INR APTT VBG pH VBG pCO2 VBG pO2 VBG HCO3 VBG O2 Saturation VBG Base Excess Anion Gap Estim Creat Clear Calc Estimated GFR POC Glucose Random Glucose Lactic Acid 3.9 H* Calcium Total Bilirubin AST ALT Alkaline Phosphatase Total Creatine Kinase B-Natriuretic Peptide Total Protein Albumin Lipase Stool Occult Blood POSITIVE Ethyl Alcohol COVID-19 (REMY) COVID-19 Clin Com Influenza Type A (STEPHANIE) Influenza Type B (STEPHANIE) Influenza A & B Note Blood Type A Positive Antibody Screen NEGATIVE Crossmatch See Detail Imaging Radiologist's Impressions: Impressions Chest X-Ray 08/17/23 11:33 IMPRESSION: No radiographic evidence of pneumonia. No acute abnormality compared to 09/19/2022. Assessment and Plan (1) Acute gastrointestinal bleeding: Status: Acute (2) Atrial fibrillation: Qualifiers: Atrial fibrillation type: longstanding persistent Qualified Code(s): I 48.11 - Longstanding persistent atrial fibrillation Status: Acute (3) Diabetes mellitus: Qualifiers: Diabetes mellitus type: type 2 Diabetes mellitus group home insulin use: with group home use Diabetes mellitus complication status: with skin complications Status: Acute (4) CAD (coronary artery disease): Status: Acute Plan 78-year-old male with history of atrial fibrillation on Eliquis, Alzheimer's dementia, diabetes, HFpEF , CAD presents with several stools of maroon foul- smelling stool. (Heme-positive). In the emergency room given Kcentra along with PRBCs x2. Current hemodynamically stable with sats maintained at 3 liters/minute. Given 1 dose of IV pantoprazole. Volume resuscitation with saline completed. 1. Lower GI bleed -repeat H&H pending; will give 3rd unit of PRBC with Lasix to proceed -received Kcentra; will give 1 unit FFP given Eliquis use -GI consult (done); will keep NPO after midnight pending colonoscopy in a.m. -q.4 hours vital signs with sats. . . 2. Atrial fibrillation -concurrently rate control; will hold p.o. meds -last echo 2020 demonstrates LVEF 55-60% -Eliquis on hold secondary to 1. -pulse dose with IV Lopressor as needed to control heart rate 3. CKD 3 -creatinine appears at baseline -avoid nephrotoxic agents -follow renals/divalents 4.DMII -will hold all oral agents at this time -lispro correctional scale -adjust as clinically indicated Full code Pneumatics Patient will require at least 2 midnights going forward to ascertain etiology of GIB and symptomatic support with IV fluids and blood products. This cannot be achieved a lesser acute setting Time Spent With Patient Time: Total time managing care of this patient today ____ minutes. Quality Stroke Does the patient have a stroke diagnosis?: No VTE Prior VTE?: No VTE Risk Level:: Medical - moderate - high VTE Device Contraindication: N/A - Device Ordered VTE Drug Contraindication: Treatment Not Indicated
--- NOTE | 2023-08-17 15:35 | PHA.MEDREC ---
Addendum entered by Blessing Barbour RPh 08/22/23 16:36: BUMEX WAS ENTERED DAILY@0900,1200. PT MISSED 1200 DOSE 08/22/23. DR VANCE CALLED TO REQUEST NOW DOSE OF BUMEX AND ADJUSTMENT TO ORDER FOR FUTURE DOSING. CORRECTIONS MADE TO DOSING TO REFLECT BID@0900,1200 AND NOW DOSE PUT IN @1637. Original Note: Pharmacy Consult ? Medication Reconciliation Pharmacy has completed the medication reconciliation. Patient had list of medications from med box. Confirmed with family medications outside of medication box. Claim history state Novolog 50/50 but family report it was changed. They reported patient is on Novolog 70/30 76 units BID. Vickie Puentes, PharmD
[2023-08-17 15:37] LABS: Hematocrit 37.6 % (42.0-52.0); Hemoglobin 12.7 g/dl (14.0-18.0)
[2023-08-17] MEDS: Furosemide 40 MG/4 ML VIAL IVPUSH (15:41)
[2023-08-17 15:53] LABS: ~Lactic Acid-LAB USE ONLY 2.3 mmol/L (0.5-2.0)
--- NOTE | 2023-08-17 16:35 | PC.NURSE ---
pt incontinent for a total of 5 times so far with maroon colors stool
[2023-08-17 16:54] LABS: Appearance Urine Clear; Color Urine Yellow; Glucose Urine UA Negative (Negative); Leukocyte Esterase Urine Negative (Negative); Nitrite Urine Negative (Negative); Specific Gravity - Urine 1.015 (1.005-1.025); Urine Blood Negative (Negative); Urine Ketones Negative (Negative); Urine Protein Trace mg/dL (Neg-Trace)
--- NOTE | 2023-08-17 16:55 | PC.NURSE ---
catheter, tolerates well, UA sent. blood transfusing at this time
[2023-08-17 17:33] LABS: Reflex Lactate? 2 Y
[2023-08-17] MEDS: 0.9 % Sodium Chloride Flush 3 ML SYRINGE IVFLUSH ×2 (17:49→23:48)
--- NOTE | 2023-08-17 18:32 | PC.NURSE ---
pt incont large amount of stool for the 3rd time this hour, very loose and bloody. picture taken via tiger by RN Toña Tay and sent to MD Pelletier. plan to talk to ICU to upgrade care per MD Pelletier. MD Seymour at bedside to place central line.
--- NOTE | 2023-08-17 19:02 | PC.NURSE ---
dr galicia placed R central line, awaiting CXR confirmation.
[2023-08-17 19:04] LABS: ~Lactic Acid-LAB USE ONLY 2.2 mmol/L (0.5-2.0)
[2023-08-17 19:08] LABS: MANUAL DIFF FLAG NO
[2023-08-17 19:23] LABS: Basophils Percent Auto 0.2 % (0-2); Eosinophils Absolute Auto 0.1 X10*3/uL (0.0-0.4); Eosinophils Percent Auto 0.5 % (0-4); Imm Gran Pct Auto 0.5 % (0.0-0.4); Lymphocytes Absolute Auto 1.1 X10*3/uL (1.2-4.9); Lymphocytes Percent Auto 6.2 % (20-40); Mean Corpuscular HGB Conc 33.7 g/dl (31.0-36.0); Mean Corpuscular Hemoglobin 34.3 pg (27.0-33.0); Mean Corpuscular Volume 101.9 fL (80.0-98.0); Mean Platelet Volume 12.9 fL (9.4-12.4); Monocytes Absolute Auto 1.3 X10*3/uL (0.1-1.2); Monocytes Percent Auto 6.9 % (2-11); Neutrophils Absolute Auto 15.7 x10*3/uL (2.0-8.3); Neutrophils Percent Auto 85.7 % (45-73); Platelet Count 160 X10*3/uL (160-400); Red Blood Count 3.73 X10*6/uL (4.60-5.80); Red Cell Distribution Width 14.6 % (11.0-16.0); White Blood Count 18.4 X10*3/uL (4.8-10.8)
--- NOTE | 2023-08-17 19:24 | PC.NURSE ---
report given to ICU
[2023-08-17] MEDS: Famotidine/PF 20 MG/2 ML VIAL IVPUSH (19:38)
[2023-08-17] MEDS: methylPREDNISolone Sod Succ 125 MG/2 ML VIAL IVPUSH (19:38)
[2023-08-17] MEDS: diphenhydrAMINE HCL 50 MG/ML VIAL IVPUSH (19:38)
[2023-08-17 19:52] LABS: Amphetamine Screen Urine Not Detected (Not Detect); Barbiturates, Urine Not Detected (Not Detect); Benzodiazepines Screen Urine Not Detected (Not Detect); Cannabinoid Screen Urine Not Detected (Not Detect); Cocaine Screen Urine Not Detected (Not Detect); Fentanyl, urine Not Detected (Not Detect); Opiate Screen Urine Not Detected (Not Detect); Phencyclidine Screen Urine Not Detected (Not Detect)
--- NOTE | 2023-08-17 19:59 | PC.NURSE ---
Pt reporting itchiness in on his bottom developing redness on buttocks. Provider Lion notified. Pt medicated per jan. Alicia care performed. Pt positioning adjusted for comfort with assist from allied health teacher Jabier Pts son and daughter in law remain at bedside. Plan of care ongoing.
--- NOTE | 2023-08-17 20:41 | PC.NURSE ---
Pt requesting tv volume lowered. Pt reporting he is tired. Vitals stable. Plan of care ongoing.
--- NOTE | 2023-08-17 21:47 | PC.NURSE ---
Pts son and daughter in law remain at bedside. Pts son does not want any info being given on behalf of his father to anyone. Pts son Hadley de jesus would like to be called @ [phone] or can also reach daughter in law Migdalia @ [phone]
--- NOTE | 2023-08-17 23:01 | PM.CCPN ---
Subjective Subjective Date of Service: 08/17/23 Critical Care Time (minutes): 60 Comment: Mr. Jorgito Reynoso [id number] male history of atrial fibrillation on Eliquis, Alzheimer's dementia, diabetes, HFpEF , CAD? who was brought to the emergency room after a witnessed syncopal event with incontinence of stool at home.? In the ER he was found to be hypotensive, hypoxic and anemic and had multiple episodes of maroon stool.? He was transfused with 3 units blood and 1 unit of FFP and was given a dose of Kcentra.? Physical Exam Vital Signs: Vital Signs: Last Vital Signs Temp 98.7 F 08/17/23 22:46 Pulse 103 H 08/17/23 22:46 Resp 25 H 08/17/23 22:46 BP 94/52 L 08/17/23 22:46 Pulse Ox 97 08/17/23 22:46 O2 Del Method Nasal Cannula 08/17/23 22:46 O2 Flow Rate 3 08/17/23 22:46 BMI result Body Mass Index 35.8 Const: General: no acute distress, alert and awake Nutritional Appearance: obese HEENT: Ears: external ear abnormal (bilateral auricular swelling r/t minor transfusion reaction) Resp: Effort & Inspection: normal respiratory effort Auscultation: clear to auscultation bilaterally, no crackles, no rales, no rhonchi and no wheezes Cardio: Rate: regular rate Rhythm: regular rhythm Heart sounds: no gallops, no murmurs and no rubs GI: Inspection: Yes normal to inspection Palpation (GI): Soft to palpation, nontender and no guarding Auscultation: normal bowel sounds Skin: General skin exam: no rashes or lesions noted Neuro: Cranial nerves: Yes CN's II-XII intact bilaterally Motor exam (neuro): 5/5 motor strength present throughout Objective Data Labs 08/18/23 05:17 08/18/23 05:17 Labs: Laboratory Results - last 24 hr 08/17/23 08/17/23 08/17/23 10:15 10:40 10:44 WBC 9.9 RBC 3.23 L D Hgb 11.4 L D Hct 33.6 L D MCV 104.0 H MCH 35.3 H MCHC 33.9 RDW 12.5 Plt Count 207 MPV 11.8 Immature Gran % (Auto) 0.6 H Neut % (Auto) 60.6 Lymph % (Auto) 27.6 [place] % (Auto) 8.5 Eos % (Auto) 2.2 Baso % (Auto) 0.5 Lymph # (Auto) 2.7 [place] # (Auto) 0.8 Eos # (Auto) 0.2 Baso # (Auto) 0.1 Abs Immat Gran (auto) 0.06 H Absolute Neuts (auto) 6.0 Absolute Nucleated RBC 0.000 Nucleated RBC % (auto) 0.0 PT INR APTT VBG pH VBG pCO2 VBG pO2 VBG HCO3 VBG O2 Saturation VBG Base Excess Sodium 136 Potassium 5.1 Chloride 97 Carbon Dioxide 26 Anion Gap 18 BUN 47 H Creatinine 2.49 H Estim Creat Clear Calc 31.7 Estimated GFR 25 POC Glucose 248 H Random Glucose 374 H* Lactic Acid Lactic Acid F/U @ 2Hr Lactic Acid F/U @ 4Hr Calcium 8.0 L D Total Bilirubin 0.6 AST 20 ALT 14 Alkaline Phosphatase 81 Total Creatine Kinase 54 Troponin I High Sens < 2.7 B-Natriuretic Peptide 147 H Total Protein 5.8 L Albumin 3.1 L Lipase 12 Urine Color Urine Appearance Urine pH Ur Specific [place] Urine Protein Urine Glucose (UA) Urine Ketones Urine Blood Urine Nitrite Ur Leukocyte Esterase Stool Occult Blood Urine Opiates Screen Urine Fentanyl Screen Ur Barbiturates Screen Ur Phencyclidine Scrn Ur Amphetamines Screen U Benzodiazepines Scrn Urine Cocaine Screen U Marijuana (THC) Screen Ethyl Alcohol < 10 COVID-19 (REMY) COVID-19 Clin Com Influenza Type A (STEPHANIE) Influenza Type B (STEPHANIE) Influenza A & B Note Blood Type Antibody Screen Crossmatch 08/17/23 08/17/23 08/17/23 10:45 10:49 11:16 WBC RBC Hgb Hct MCV MCH MCHC RDW Plt Count MPV Immature Gran % (Auto) Neut % (Auto) Lymph % (Auto) [place] % (Auto) Eos % (Auto) Baso % (Auto) Lymph # (Auto) [place] # (Auto) Eos # (Auto) Baso # (Auto) Abs Immat Gran (auto) Absolute Neuts (auto) Absolute Nucleated RBC Nucleated RBC % (auto) PT 16.0 H INR 1.3 H APTT 30.8 VBG pH 7.29 L VBG pCO2 58 VBG pO2 37 VBG HCO3 28 H VBG O2 Saturation 51.0 VBG Base Excess 1.0 Sodium Potassium Chloride Carbon Dioxide Anion Gap BUN Creatinine Estim Creat Clear Calc Estimated GFR POC Glucose Random Glucose Lactic Acid Lactic Acid F/U @ 2Hr Lactic Acid F/U @ 4Hr Calcium Total Bilirubin AST ALT Alkaline Phosphatase Total Creatine Kinase Troponin I High Sens B-Natriuretic Peptide Total Protein Albumin Lipase Urine Color Urine Appearance Urine pH Ur Specific [place] Urine Protein Urine Glucose (UA) Urine Ketones Urine Blood Urine Nitrite Ur Leukocyte Esterase Stool Occult Blood Urine Opiates Screen Urine Fentanyl Screen Ur Barbiturates Screen Ur Phencyclidine Scrn Ur Amphetamines Screen U Benzodiazepines Scrn Urine Cocaine Screen U Marijuana (THC) Screen Ethyl Alcohol COVID-19 (REMY) Negative COVID-19 Clin Com See Note Influenza Type A (STEPHANIE) Negative Influenza Type B (STEPHANIE) Negative Influenza A & B Note See Note Blood Type Antibody Screen Crossmatch 08/17/23 08/17/23 08/17/23 11:58 12:18 13:28 WBC RBC Hgb Hct MCV MCH MCHC RDW Plt Count MPV Immature Gran % (Auto) Neut % (Auto) Lymph % (Auto) [place] % (Auto) Eos % (Auto) Baso % (Auto) Lymph # (Auto) [place] # (Auto) Eos # (Auto) Baso # (Auto) Abs Immat Gran (auto) Absolute Neuts (auto) Absolute Nucleated RBC Nucleated RBC % (auto) PT INR APTT VBG pH VBG pCO2 VBG pO2 VBG HCO3 VBG O2 Saturation VBG Base Excess Sodium Potassium Chloride Carbon Dioxide Anion Gap BUN Creatinine Estim Creat Clear Calc Estimated GFR POC Glucose Random Glucose Lactic Acid 3.9 H* Lactic Acid F/U @ 2Hr Lactic Acid F/U @ 4Hr Calcium Total Bilirubin AST ALT Alkaline Phosphatase Total Creatine Kinase Troponin I High Sens B-Natriuretic Peptide Total Protein Albumin Lipase Urine Color Urine Appearance Urine pH Ur Specific [place] Urine Protein Urine Glucose (UA) Urine Ketones Urine Blood Urine Nitrite Ur Leukocyte Esterase Stool Occult Blood POSITIVE Urine Opiates Screen Urine Fentanyl Screen Ur Barbiturates Screen Ur Phencyclidine Scrn Ur Amphetamines Screen U Benzodiazepines Scrn Urine Cocaine Screen U Marijuana (THC) Screen Ethyl Alcohol COVID-19 (REMY) COVID-19 Clin Com Influenza Type A (STEPHANIE) Influenza Type B (STEPHANIE) Influenza A & B Note Blood Type A Positive Antibody Screen NEGATIVE Crossmatch See Detail 08/17/23 08/17/23 08/17/23 15:29 16:43 18:10 WBC 18.4 H RBC 3.73 L Hgb 12.7 L Hct 37.6 L MCV 101.9 H MCH 34.3 H MCHC 33.7 RDW 14.6 Plt Count 160 MPV 12.9 H Immature Gran % (Auto) 0.5 H Neut % (Auto) 85.7 H Lymph % (Auto) 6.2 L [place] % (Auto) 6.9 Eos % (Auto) 0.5 Baso % (Auto) 0.2 Lymph # (Auto) 1.1 L [place] # (Auto) 1.3 H Eos # (Auto) 0.1 Baso # (Auto) 0.0 Abs Immat Gran (auto) 0.10 H Absolute Neuts (auto) 15.7 H Absolute Nucleated RBC 0.000 Nucleated RBC % (auto) 0.0 PT INR APTT VBG pH VBG pCO2 VBG pO2 VBG HCO3 VBG O2 Saturation VBG Base Excess Sodium Potassium Chloride Carbon Dioxide Anion Gap BUN Creatinine Estim Creat Clear Calc Estimated GFR POC Glucose Random Glucose Lactic Acid Lactic Acid F/U @ 2Hr 2.3 H* Lactic Acid F/U @ 4Hr 2.2 H* Calcium Total Bilirubin AST ALT Alkaline Phosphatase Total Creatine Kinase Troponin I High Sens B-Natriuretic Peptide Total Protein Albumin Lipase Urine Color Yellow Urine Appearance Clear Urine pH 5.0 Ur Specific [place] 1.015 Urine Protein Trace Urine Glucose (UA) Negative Urine Ketones Negative Urine Blood Negative Urine Nitrite Negative Ur Leukocyte Esterase Negative Stool Occult Blood Urine Opiates Screen Not Detected Urine Fentanyl Screen Not Detected Ur Barbiturates Screen Not Detected Ur Phencyclidine Scrn Not Detected Ur Amphetamines Screen Not Detected U Benzodiazepines Scrn Not Detected Urine Cocaine Screen Not Detected U Marijuana (THC) Screen Not Detected Ethyl Alcohol COVID-19 (REMY) COVID-19 Clin Com Influenza Type A (STEPHANIE) Influenza Type B (STEPHANIE) Influenza A & B Note Blood Type Antibody Screen Crossmatch Progress Note: A&P Assessment and plan (1) Acute gastrointestinal bleeding: Status: Acute (2) Acute anemia: Status: Acute (3) Syncope: Status: Acute (4) Diabetes mellitus: Status: Acute (5) Atrial fibrillation: Status: Acute (6) CAD (coronary artery disease): Status: Acute (7) Alzheimer's dementia: Status: Acute Plan Assessment: 78-year-old male history of atrial fibrillation on Eliquis, Alzheimer's dementia, diabetes, HFpEF, CAD admitted for management of GI bleed and symptomatic anemia. Plan: Neuro: ? no acute issues Cardiac: no acute issues.? Underlying AFib is currently rate controlled. Last echo 2020 demonstrates LVEF 55-60% Eliquis on hold secondary to GI bleed.? Pulmonary:? no acute issues Renal: ? No acute issues.? Underlying CKD 3, creatinine appears at baseline.? Avoid nephrotoxic agents. GI:? Lower GI bleed. H&H of .6- macrocytic with MCV of 104; this is a decrease from an H&H of .7 in March 2023. Received 3 units PRBCs, 1 unit FFP, Kcentra.? Plan for colonoscopy in a.m. ? Appreciate Gastroenterology service care. ID: ? No acute issues. Heme/Onc: ? As above. Psych:? No acute issues. Miscellaneous:? No acute issues. Prophylaxis: ? Pneumatic compression boots.? IV Protonix. Case discussed with Dr. Guevara. Quality Stroke Does the patient have a stroke diagnosis?: No VTE Prior VTE?: No VTE Risk Level:: Medical - moderate - high VTE Device Contraindication: N/A - Device Ordered VTE Drug Contraindication: Treatment Not Indicated
[2023-08-17 23:20] LABS: Glucose, Whole Blood 346 mg/dL (60-115)
[2023-08-18] VITALS (13 sets, daily range): BP systolic 127–165; BP diastolic 65–93; PULSE 89–108; RESP 15–20; TEMP 36.1–37.2; O2SAT 94–99; BMI 37.1
[2023-08-18] MEDS: PEG 3350/Na Sulf,Bicarb,Cl/KCL 4,000 ML SOLN.RECON 4000 ML PO (00:13)
[2023-08-18 00:42] LABS: Hematocrit 38.5 % (42.0-52.0); Hemoglobin 13.3 g/dl (14.0-18.0); Mean Corpuscular HGB Conc 34.5 g/dl (31.0-36.0); Mean Corpuscular Hemoglobin 33.5 pg (27.0-33.0); Platelet Count 145 X10*3/uL (160-400); Red Blood Count 3.97 X10*6/uL (4.60-5.80); Red Cell Distribution Width 15.3 % (11.0-16.0); White Blood Count 13.6 X10*3/uL (4.8-10.8)
[2023-08-18] MEDS: Insulin Lispro 100 UNIT/ML 3 ML VIAL SUBCUT ×4 (01:13→16:21)
[2023-08-18] MEDS: Pantoprazole Sodium 40 MG/10 ML VIAL 80 MG IVPUSH (01:26)
--- NOTE | 2023-08-18 04:24 | PC.NURSE ---
CARE ASSUMED 23:15...AWAKE..ALERT...VAGUE RESPONSES...NICHOLS...RESPIRATIONS EASY WITH O2 2 L/M....ATRIAL FIB WITH CONTROLLED HR...ABDOMEN OBESE...DENIED NAUSEA OR PAIN...NPO STATUS...CONFIRMED WITH ICU DIAL EQUIPMENT ENGINEER ORDER FOR COLYTE PREP...PATIENT DRINKING COLYTE WITHOUT DIFFICULTY..INCONTINANT MULTIPLE BLOODY STOOLS OVERNIGHT...STOOLS REMAIN BLOODY DESPITE 3/4 OF PREP TAKEN...ICU DIAL EQUIPMENT ENGINEER AWARE...FOR AM LABS ORDERED..HS H/H STABLE...ELEVATED POC GLUCOSE AT HS...SLIDING SCALE COVERAGE ORDERED BY ICU DIAL EQUIPMENT ENGINEER
--- NOTE | 2023-08-18 04:48 | PM.EVENT ---
Documented by User: Leti Skinner NP 08/18/23 04:57 Event Note Date of Service: 08/18/23 Event Note: Received a call from ED physician, Dr. Seymour; Pt was given solumedrol 125mg, Benadryl 50mg, Famotidine 20mg for hives noted accross the abdomen and groin and swelling to bilateral ears after receiving blood products. The blood bank was notified. No further testing warranted, however, patient should be pre-medicated with benadryl prior to any future transfusions. Upon arrival to the ICU, the patient's ears still appear swollen. Hives no longer present. Time Spent With Patient Time: Total time managing care of this patient today ____ minutes. Documented by User: Maxi Guevara MD 08/18/23 10:19 Event Note Date of Service: 08/18/23
[2023-08-18 05:32] LABS: VBG Base Excess 0.6 mmol/L; VBG HCO3 25 mmol/L (22-26); VBG pCO2 40 mmHg; VBG pO2 53 mmHg
[2023-08-18 05:47] LABS: Glucose, Whole Blood 333 mg/dL (60-115)
[2023-08-18 06:15] LABS: Basophils Percent Auto 0.1 % (0-2); Hematocrit 36.5 % (42.0-52.0); Hemoglobin 12.6 g/dl (14.0-18.0); Imm Gran Abs Auto 0.07 X10*3/uL (0.00-0.03); Imm Gran Pct Auto 0.6 % (0.0-0.4); Lymphocytes Absolute Auto 0.6 X10*3/uL (1.2-4.9); Lymphocytes Percent Auto 4.8 % (20-40); MANUAL DIFF FLAG SCAN; Mean Corpuscular HGB Conc 34.5 g/dl (31.0-36.0); Mean Corpuscular Hemoglobin 33.7 pg (27.0-33.0); Mean Corpuscular Volume 97.6 fL (80.0-98.0); Mean Platelet Volume 12.4 fL (9.4-12.4); Monocytes Absolute Auto 0.1 X10*3/uL (0.1-1.2); Monocytes Percent Auto 1.2 % (2-11); NRBC Pct Auto 0.3 /100WBC (0.0-0.2); Neutrophils Absolute Auto 11.2 x10*3/uL (2.0-8.3); Neutrophils Percent Auto 93.3 % (45-73); Platelet Count 141 X10*3/uL (160-400); Red Blood Count 3.74 X10*6/uL (4.60-5.80); Red Cell Distribution Width 15.4 % (11.0-16.0); SCAN SMEAR FLAG 1
[2023-08-18 06:18] LABS: INTERNATIONAL NORM RATIO 1.1 (0.9-1.1); Prothrombin Time 13.3 SEC (11.1-13.3)
[2023-08-18 06:37] LABS: Alanine Aminotransferase 16 U/L (0-40); Albumin Level 3.4 g/dL (3.5-5.0); Alkaline Phosphatase 78 U/L (39-117); Anion Gap 19 (12-20); Aspartate Amino Transferase 19 U/L (5-37); Bilirubin Total 0.7 mg/dL (0.0-1.0); Blood Urea Nitrogen 69 mg/dL (9-16); Calcium 8.1 mg/dL (8.4-10.2); Carbon Dioxide 22 mmol/L (22-29); Chloride 102 mmol/L (96-108); Creatinine Clr Calc Pharmacy 35.9; Estimated Glomerular Filt Rate 28; Glucose Random 410 mg/dL (60-115); Magnesium 1.9 mg/dL (1.6-2.6); Phosphorus 3.1 mg/dL (2.7-4.5); Potassium 4.6 mmol/L (3.3-5.1); Sodium 138 mmol/L (135-145); Total Protein 6.3 g/dL (6.5-8.0)
[2023-08-18 06:56] LABS: SLIDE REVIEW VERIFIED
[2023-08-18 07:07] LABS: Venous Blood Gas Refer to POC result
--- NOTE | 2023-08-18 07:07 | P.CNGI_ITS ---
History of Present Illness Data of Consult Service Date: 08/18/23 Requesting physician: Maxi Guevara Primary Care Provider: Kathy Villafana MD HPI Reason for consult: Acute blood loss anemia 78 yr w/ hx of HTN, HLP, DM, CAD, a-fib-on eliquis, ckd and dementia who I am seeing for acute blood loss anemia. Unable to obtain hx from patient, hx of dementia Per chart Patient feel at home and had syncopal episode. Prior to that he had been well. Whilst in ED he had multiple episodes of maroon stool which have persisted till this morning. He was trnsfused 3 units of PRBC and K centra as well as FFP. He did not complain of chest pain, shortness of breath. He had no nausea, vomiting, diarrhea or change in his bowel movements. Review of Systems 2 Review of Systems: Yes Unobtainable due to mental status PMFSH Past Medical History Medical History (Updated 08/17/23 @ 15:37 by Sharan Pelletier DO) Trash foot Diabetic foot infection Heart failure with preserved ejection fraction HLD (hyperlipidemia) Diabetes mellitus Atrial fibrillation NSTEMI (non-ST elevated myocardial infarction) Alzheimer's dementia Kidney failure Diabetes HTN (hypertension) Family History Family History Father No problems noted. Mother No problems noted. Surgical History Surgical History No pertinent past surgical history Social History Social History Household Members: Family Housing: Apartment Do you presently have visiting nurse or other home services: No Alcohol intake: never Patient Tobacco Use Status: Never used Tobacco Smoked in Last 30 Days: No e-Cigarette/Vaping Use: Never Used Patient Interested in Nicotine Replacement: No Patient Given Instructions on How to Stop Smoking: No Second Hand Smoke Exposure: No Use of substances other than those prescribed or required for medical reasons: No Currently Displaying Signs/Symptoms of Drug Intoxication Withdrawal: No Any prior treatment program specific to substance use: No Advance Directives: Yes Advance Directives on File: Yes Advance Directives Date on File: 09/06/21 Do you have thoughts of harming others: None Do you have a plan to hurt others: No Plan Recently lost weight without trying: No Nutrition Risks: No Nutritional Risk Poor oral hygiene: No service: No Current occupational status: retired Meds Allergies Allergy/AdvReac Type Severity Reaction Status Date / Time No Known Allergies Allergy Verified 12/22/21 15:24 Active Medications: Current Medications Acetaminophen (Acetaminophen 325 Mg Tablet) 650 mg PO Q6H PRN PRN Reason: Pain, Mild (Pain Scale 1-3) Dextrose (Dextrose 50 % 25 Gm/50 Ml Syringe) 25 gm IVPUSH Q15M PRN; Protocol PRN Reason: per Hypoglycemia Standing Ord. Glucose (Glucose Gel 15 Gm Gel..Gram.) 15 gm PO Q15M PRN; Protocol PRN Reason: per Hypoglycemia Standing Ord. Insulin Human Lispro (Insulin Lispro 100 Unit/Ml 3 Ml Vial) 0 unit SUBCUT Q6H [facility]; Protocol Last Admin: 08/18/23 05:54 Dose: 8 unit Ondansetron HCl (Ondansetron Hcl 4 Mg/2 Ml Vial) 4 mg IVPUSH Q8H PRN PRN Reason: Nausea and Vomiting Pantoprazole Sodium (Pantoprazole Sodium 40 Mg/10 Ml Vial) 80 mg IVPUSH Q12H [facility] Last Admin: 08/18/23 01:26 Dose: 80 mg Sodium Chloride (0.9 % Sodium Chloride Flush 3 Ml Syringe) [facility] Last Admin: 08/17/23 23:48 Dose: 3 ml Home Medications Medication Instructions Recorded Confirmed Last Taken Type apixaban 5 mg tablet (Eliquis) 1 tab PO BID 09/05/21 08/17/23 10/17/21 History donepezil 10 mg tablet 1 tab PO QPM 09/05/21 08/17/23 10/16/21 History glimepiride 4 mg tablet 1 tab PO BID 09/05/21 08/17/23 10/17/21 History dqtgetws-fkf-ovvoc acid 0.4 1 tab PO DAILY 09/05/21 08/17/23 10/17/21 History mg-lycopene 300 mcg-lutein 250 mcg tablet (Certa[employer]ite Senior) acetaminophen 500 mg tablet 1 tab PO Q6H PRN pain 10/07/21 08/17/23 10/17/21 History allopurinol 100 mg tablet 0.5 tab PO DAILY gout pain 11/11/1508/17/23 10/17/21 History carboxymethylcellulose sodium 0.5 1 drp ophthalmic (eye) Q4-6H PRN 10/07/21 08/17/23 10/17/21 History % eye drops (Refresh Tears) Dry Eye(S) diphenhydramine HCl 25 mg tablet 0.5 tab PO BEDTIME PRN Insomnia 10/07/21 08/17/23 10/16/21 History (Banophen) gabapentin 600 mg tablet 1 tab PO BID 10/17/21 08/17/23 10/17/21 History insulin syringe-needle U-100 1 mL #10 ea 12/22/21 05/08/22 Unknown History 31 gauge x 16 bumetanide 1 mg tablet 1 mg PO DAILY@0900,1200 05/08/22 08/17/23 Unknown History magnesium oxide 250 mg PO DAILY 05/08/22 08/17/23 Unknown History memantine 10 mg tablet 10 mg PO BID 05/08/22 08/17/23 Unknown History metoprolol tartrate 100 mg tablet 100 mg PO BID 05/08/22 08/17/23 Unknown History amlodipine 5 mg tablet 5 mg PO QAM 08/17/23 08/17/23 Unknown History cetirizine 10 mg tablet 10 mg PO DAILY congestion 08/17/23 08/17/23 Unknown History citalopram 20 mg tablet 20 mg PO BEDTIME 08/17/23 08/17/23 Unknown History fluocinolone 0.01 % topical body 1 appl topical Q2W 08/17/23 08/17/23 Unknown History oil insulin NPH-regular 70-30 U-100 76 unit subcut BID 08/17/23 08/17/23 Unknown History insulin 100 unit/mL subcutaneous pen (Novolin 70-30 FlexPen U-100 Insulin) ketoconazole 2 % shampoo 1 appl topical Q2W 08/17/23 08/17/23 Unknown History triamcinolone acetonide 0.1 % 1 appl topical BID 08/17/23 08/17/23 Unknown History topical cream Physical Exam 2 Vital Signs: Vital Signs: Last Vital Signs Temp 98.1 F 08/18/23 03:46 Pulse 95 08/18/23 04:00 Resp 17 08/18/23 04:00 BP 129/65 08/18/23 04:00 Pulse Ox 97 08/18/23 04:00 O2 Del Method Nasal Cannula 08/18/23 04:00 O2 Flow Rate 2 08/18/23 04:00 BMI result Body Mass Index 37.1 EXAM: GENERAL: The patient is obese, pleasantly confused VITAL SIGNS:see workflow HEENT: Nonicteric sclerae, PERRLA, EOMI. Oropharynx clear. Moist mucous membranes. Conjunctivae appear well perfused. No thyroid mass. CHEST: Chest wall is nontender. HEART: Regular rate and rhythm without murmurs. LUNGS: Clear to auscultation bilaterally. ABDOMEN: Soft, positive bowel sounds, nontender, no organomegaly.no flank tenderness, bloody stool o/p noted SKIN: No rash, no excessive bruising, petechiae, or purpura. NEUROLOGIC: Cranial nerves II-XII intact without motor/sensory deficit. Const: General: no acute distress, alert and awake Nutritional Appearance: obese HEENT: Ears: external ear abnormal (bilateral auricular swelling r/t minor transfusion reaction) Resp: Effort & Inspection: normal respiratory effort Auscultation: clear to auscultation bilaterally, no crackles, no rales, no rhonchi and no wheezes Cardio: Rate: regular rate Rhythm: regular rhythm Heart sounds: no gallops, no murmurs and no rubs GI: Inspection: Yes normal to inspection Palpation (GI): Soft to palpation, nontender and no guarding Auscultation: normal bowel sounds Skin: General skin exam: no rashes or lesions noted Neuro: Cranial nerves: Yes CN's II-XII intact bilaterally Motor exam (neuro): 5/5 motor strength present throughout Extrem: General: Yes normal to inspection Psych: Attitude: cooperative Results Labs 08/18/23 05:17 08/18/23 05:17 Labs: Short CBC 08/17/23 08/17/23 08/18/23 Range/Units 10:44 15:29 00:10 WBC 9.9 18.4 H 13.6 H (4.8-10.8) X10*3/uL Hgb 11.4 L D 12.7 L 13.3 L (14.0-18.0) g/dl Hct 33.6 L D 37.6 L 38.5 L (42.0-52.0) % Plt Count 207 160 145 L (160-400) X10*3/uL 08/18/23 Range/Units 05:17 WBC 12.0 H (4.8-10.8) X10*3/uL Hgb 12.6 L (14.0-18.0) g/dl Hct 36.5 L (42.0-52.0) % Plt Count 141 L (160-400) X10*3/uL BMP 08/17/23 08/18/23 10:40 05:17 Sodium 136 138 Potassium 5.1 4.6 Chloride 97 102 Carbon Dioxide 26 22 BUN 47 H 69 H Creatinine 2.49 H 2.24 H Calcium 8.0 L D 8.1 L Cardiac Enzymes 08/17/23 Range/Units 10:40 Total Creatine Kinase 54 (38-174) U/L Liver Function 08/17/23 08/18/23 Range/Units 10:40 05:17 Total Bilirubin 0.6 0.7 (0.0-1.0) mg/dL AST 20 19 (5-37) U/L ALT 14 16 (0-40) U/L Alkaline Phosphatase 81 78 (39-117) U/L Albumin 3.1 L 3.4 L (3.5-5.0) g/dL Urine 08/17/23 Range/Units 16:43 Urine Color Yellow Urine Appearance Clear Urine pH 5.0 (5.0-9.0) Ur Specific [place] 1.015 (1.005-1.025) Urine Protein Trace (Neg-Trace) mg/dL Urine Glucose (UA) Negative (Negative) mg/dL Assessment and Plan (1) Acute gastrointestinal bleeding: Status: Acute Plan 1/ Acute GI bleed with maroon stool output, ddx: diverticular bleed, dieulafoy, upper GI bleed with rapid transit Plan: 1/ Cont with high dose PPI 2/ can add octreotide for splanchnic vasoconstriction 3/ tansfuse HGB 9-10 g/dl as target 4/ hold anti coagulants 5/ EGD and colo today Time Spent With Patient Time: Total time managing care of this patient today ____ minutes. Procedures Date of Service Date of Service: 08/18/23
[2023-08-18] MEDS: 0.9 % Sodium Chloride Flush 3 ML SYRINGE IVFLUSH ×3 (07:42→20:07)
--- NOTE | 2023-08-18 08:39 | HO.ANESPROP2 ---
HPI - Anesthesia Eval Consult details Narrative: GI bleed PMFSH Active Problems Active Problems: All Active Problems (Updated 08/17/23 @ 15:37 by Sharan Pelletier DO) Acute gastrointestinal bleeding (Acute) Acute anemia (Acute) Syncope (Acute) Diabetes mellitus (Acute) CAD (coronary artery disease) (Acute) HTN (hypertension) (Acute) Alzheimer's dementia (Acute) Abnormal nuclear stress test (Acute) Atrial fibrillation (Acute) NSTEMI (non-ST elevated myocardial infarction) (Acute) Varicose veins of right lower extremity with inflammation (Acute) Hyperglycemia (Acute) Wound of right foot (Acute) Cellulitis (Acute) JAMES (acute kidney injury) (Acute) Acute hyperglycemia (Acute) Past Medical History Medical History (Updated 08/17/23 @ 15:37 by Sharan Pelletier DO) Trash foot Diabetic foot infection Heart failure with preserved ejection fraction HLD (hyperlipidemia) Diabetes mellitus Atrial fibrillation NSTEMI (non-ST elevated myocardial infarction) Alzheimer's dementia Kidney failure Diabetes HTN (hypertension) Family History Family History Father No problems noted. Mother No problems noted. Family history of problems with anesthesia: No Surgical History Surgical History No pertinent past surgical history History of Problems with Anesthesia: No Social History Social History Household Members: Family Housing: Apartment Do you presently have visiting nurse or other home services: No Alcohol intake: never Patient Tobacco Use Status: Never used Tobacco Smoked in Last 30 Days: No e-Cigarette/Vaping Use: Never Used Patient Interested in Nicotine Replacement: No Patient Given Instructions on How to Stop Smoking: No Second Hand Smoke Exposure: No Use of substances other than those prescribed or required for medical reasons: No Currently Displaying Signs/Symptoms of Drug Intoxication Withdrawal: No Any prior treatment program specific to substance use: No Advance Directives: Yes Advance Directives on File: Yes Advance Directives Date on File: 09/06/21 Do you have thoughts of harming others: None Do you have a plan to hurt others: No Plan Recently lost weight without trying: No Nutrition Risks: No Nutritional Risk Poor oral hygiene: No service: No Current occupational status: retired Meds Allergies Allergy/AdvReac Type Severity Reaction Status Date / Time No Known Allergies Allergy Verified 12/22/21 15:24 Active Medications: Current Medications Acetaminophen (Acetaminophen 325 Mg Tablet) 650 mg PO Q6H PRN PRN Reason: Pain, Mild (Pain Scale 1-3) Dextrose (Dextrose 50 % 25 Gm/50 Ml Syringe) 25 gm IVPUSH Q15M PRN; Protocol PRN Reason: per Hypoglycemia Standing Ord. Glucose (Glucose Gel 15 Gm Gel..Gram.) 15 gm PO Q15M PRN; Protocol PRN Reason: per Hypoglycemia Standing Ord. Insulin Human Lispro (Insulin Lispro 100 Unit/Ml 3 Ml Vial) 0 unit SUBCUT Q6H REYNALDO; Protocol Last Admin: 08/18/23 05:54 Dose: 8 unit Ondansetron HCl (Ondansetron Hcl 4 Mg/2 Ml Vial) 4 mg IVPUSH Q8H PRN PRN Reason: Nausea and Vomiting Pantoprazole Sodium (Pantoprazole Sodium 40 Mg/10 Ml Vial) 80 mg IVPUSH Q12H [facility] Last Admin: 08/18/23 01:26 Dose: 80 mg Sodium Chloride (0.9 % Sodium Chloride Flush 3 Ml Syringe) 3 ml IVFLUSH QSHIFT [facility] Last Admin: 08/18/23 07:42 Dose: 3 ml Home Medications Medication Instructions Recorded Confirmed Last Taken Type apixaban 5 mg tablet (Eliquis) 1 tab PO BID 09/05/21 08/17/23 10/17/21 History donepezil 10 mg tablet 1 tab PO QPM 09/05/21 08/17/23 10/16/21 History glimepiride 4 mg tablet 1 tab PO BID 09/05/21 08/17/23 10/17/21 History klepmduw-tmc-rwcrr acid 0.4 1 tab PO DAILY 09/05/21 08/17/23 10/17/21 History mg-lycopene 300 mcg-lutein 250 mcg tablet (CertaVite Senior) acetaminophen 500 mg tablet 1 tab PO Q6H PRN pain 10/07/21 08/17/23 10/17/21 History allopurinol 100 mg tablet 0.5 tab PO DAILY gout pain 10/07/21 08/17/23 10/17/21 History carboxymethylcellulose sodium 0.5 1 drp ophthalmic (eye) Q4-6H PRN 10/07/21 08/17/23 10/17/21 History % eye drops (Refresh Tears) Dry Eye(S) diphenhydramine HCl 25 mg tablet 0.5 tab PO BEDTIME PRN Insomnia 10/07/21 08/17/23 10/16/21 History (Banophen) gabapentin 600 mg tablet 1 tab PO BID 10/17/21 08/17/23 10/17/21 History insulin syringe-needle U-100 1 mL #10 ea 12/22/21 05/08/22 Unknown History 31 gauge x 04/10 bumetanide 1 mg tablet 1 mg PO DAILY@0900,1200 05/08/22 08/17/23 Unknown History magnesium oxide 250 mg PO DAILY 05/08/22 08/17/23 Unknown History memantine 10 mg tablet 10 mg PO BID 05/08/22 08/17/23 Unknown History metoprolol tartrate 100 mg tablet 100 mg PO BID 05/08/22 08/17/23 Unknown History amlodipine 5 mg tablet 5 mg PO QAM 08/17/23 08/17/23 Unknown History cetirizine 10 mg tablet 10 mg PO DAILY congestion 08/17/23 08/17/23 Unknown History citalopram 20 mg tablet 20 mg PO BEDTIME 08/17/23 08/17/23 Unknown History fluocinolone 0.01 % topical body 1 appl topical Q2W 08/17/23 08/17/23 Unknown History oil insulin NPH-regular 70-30 U-100 76 unit subcut BID 08/17/23 08/17/23 Unknown History insulin 100 unit/mL subcutaneous pen (Novolin 70-30 FlexPen U-100 Insulin) ketoconazole 2 % shampoo 1 appl topical Q2W 08/17/23 08/17/23 Unknown History triamcinolone acetonide 0.1 % 1 appl topical BID 08/17/23 08/17/23 Unknown History topical cream Exam Exam Date and Time: August 18, 2023 0839 Height,Weight and Vital Signs: Height 5 ft 11 in Weight 120.7 kg Last Vital Signs Temp 98.4 F 08/18/23 08:00 Pulse 100 08/18/23 08:00 Resp 17 08/18/23 08:00 BP 147/73 H 08/18/23 08:00 Pulse Ox 96 08/18/23 08:00 O2 Del Method Nasal Cannula 08/18/23 08:00 O2 Flow Rate 3 08/18/23 08:00 Pertinent Lab Results Pertinent Lab Results: Laboratory Tests 08/17/23 08/17/23 08/17/23 10:15 10:40 10:44 WBC 9.9 RBC 3.23 L D Hgb 11.4 L D Hct 33.6 L D MCV 104.0 H MCH 35.3 H MCHC 33.9 RDW 12.5 Plt Count 207 MPV 11.8 Immature Gran % (Auto) 0.6 H Neut % (Auto) 60.6 Lymph % (Auto) 27.6 Dukes % (Auto) 8.5 Eos % (Auto) 2.2 Baso % (Auto) 0.5 Lymph # (Auto) 2.7 Dukes # (Auto) 0.8 Eos # (Auto) 0.2 Baso # (Auto) 0.1 Abs Immat Gran (auto) 0.06 H Absolute Neuts (auto) 6.0 Absolute Nucleated RBC 0.000 Nucleated RBC % (auto) 0.0 Smear Tech's Comments PT INR APTT VBG pH VBG pCO2 VBG pO2 VBG HCO3 VBG O2 Saturation VBG Base Excess Sodium 136 Potassium 5.1 Chloride 97 Carbon Dioxide 26 Anion Gap 18 BUN 47 H Creatinine 2.49 H Estim Creat Clear Calc 31.7 Estimated GFR 25 POC Glucose 248 H Random Glucose 374 H* Lactic Acid Lactic Acid F/U @ 2Hr Lactic Acid F/U @ 4Hr Calcium 8.0 L D Phosphorus Magnesium Total Bilirubin 0.6 AST 20 ALT 14 Alkaline Phosphatase 81 Total Creatine Kinase 54 Troponin I High Sens < 2.7 B-Natriuretic Peptide 147 H Total Protein 5.8 L Albumin 3.1 L Lipase 12 Urine Color Urine Appearance Urine pH Ur Specific [place] Urine Protein Urine Glucose (UA) Urine Ketones Urine Blood Urine Nitrite Ur Leukocyte Esterase Stool Occult Blood Urine Opiates Screen Urine Fentanyl Screen Ur Barbiturates Screen Ur Phencyclidine Scrn Ur Amphetamines Screen U Benzodiazepines Scrn Urine Cocaine Screen U Marijuana (THC) Screen Ethyl Alcohol < 10 COVID-19 (REMY) COVID-19 Clin Com Influenza Type A (STEPHANIE) Influenza Type B (STEPHANIE) Influenza A & B Note Blood Type Antibody Screen Crossmatch 08/17/23 08/17/23 08/17/23 10:45 10:49 11:16 WBC RBC Hgb Hct MCV MCH MCHC RDW Plt Count MPV Immature Gran % (Auto) Neut % (Auto) Lymph % (Auto) Dukes % (Auto) Eos % (Auto) Baso % (Auto) Lymph # (Auto) Dukes # (Auto) Eos # (Auto) Baso # (Auto) Abs Immat Gran (auto) Absolute Neuts (auto) Absolute Nucleated RBC Nucleated RBC % (auto) Smear Tech's Comments PT 16.0 H INR 1.3 H APTT 30.8 VBG pH 7.29 L VBG pCO2 58 VBG pO2 37 VBG HCO3 28 H VBG O2 Saturation 51.0 VBG Base Excess 1.0 Sodium Potassium Chloride Carbon Dioxide Anion Gap BUN Creatinine Estim Creat Clear Calc Estimated GFR POC Glucose Random Glucose Lactic Acid Lactic Acid F/U @ 2Hr Lactic Acid F/U @ 4Hr Calcium Phosphorus Magnesium Total Bilirubin AST ALT Alkaline Phosphatase Total Creatine Kinase Troponin I High Sens B-Natriuretic Peptide Total Protein Albumin Lipase Urine Color Urine Appearance Urine pH Ur Specific [place] Urine Protein Urine Glucose (UA) Urine Ketones Urine Blood Urine Nitrite Ur Leukocyte Esterase Stool Occult Blood Urine Opiates Screen Urine Fentanyl Screen Ur Barbiturates Screen Ur Phencyclidine Scrn Ur Amphetamines Screen U Benzodiazepines Scrn Urine Cocaine Screen U Marijuana (THC) Screen Ethyl Alcohol COVID-19 (REMY) Negative COVID-19 Clin Com See Note Influenza Type A (STEPHANIE) Negative Influenza Type B (STEPHANIE) Negative Influenza A & B Note See Note Blood Type Antibody Screen Crossmatch 08/17/23 08/17/23 08/17/23 11:58 12:18 13:28 WBC RBC Hgb Hct MCV MCH MCHC RDW Plt Count MPV Immature Gran % (Auto) Neut % (Auto) Lymph % (Auto) Dukes % (Auto) Eos % (Auto) Baso % (Auto) Lymph # (Auto) Dukes # (Auto) Eos # (Auto) Baso # (Auto) Abs Immat Gran (auto) Absolute Neuts (auto) Absolute Nucleated RBC Nucleated RBC % (auto) Smear Tech's Comments PT INR APTT VBG pH VBG pCO2 VBG pO2 VBG HCO3 VBG O2 Saturation VBG Base Excess Sodium Potassium Chloride Carbon Dioxide Anion Gap BUN Creatinine Estim Creat Clear Calc Estimated GFR POC Glucose Random Glucose Lactic Acid 3.9 H* Lactic Acid F/U @ 2Hr Lactic Acid F/U @ 4Hr Calcium Phosphorus Magnesium Total Bilirubin AST ALT Alkaline Phosphatase Total Creatine Kinase Troponin I High Sens B-Natriuretic Peptide Total Protein Albumin Lipase Urine Color Urine Appearance Urine pH Ur Specific [place] Urine Protein Urine Glucose (UA) Urine Ketones Urine Blood Urine Nitrite Ur Leukocyte Esterase Stool Occult Blood POSITIVE Urine Opiates Screen Urine Fentanyl Screen Ur Barbiturates Screen Ur Phencyclidine Scrn Ur Amphetamines Screen U Benzodiazepines Scrn Urine Cocaine Screen U Marijuana (THC) Screen Ethyl Alcohol COVID-19 (REMY) COVID-19 Clin Com Influenza Type A (STEPHANIE) Influenza Type B (STEPHANIE) Influenza A & B Note Blood Type A Positive Antibody Screen NEGATIVE Crossmatch See Detail 08/17/23 08/17/23 08/17/23 15:29 16:43 18:10 WBC 18.4 H RBC 3.73 L Hgb 12.7 L Hct 37.6 L MCV 101.9 H MCH 34.3 H MCHC 33.7 RDW 14.6 Plt Count 160 MPV 12.9 H Immature Gran % (Auto) 0.5 H Neut % (Auto) 85.7 H Lymph % (Auto) 6.2 L Dukes % (Auto) 6.9 Eos % (Auto) 0.5 Baso % (Auto) 0.2 Lymph # (Auto) 1.1 L Dukes # (Auto) 1.3 H Eos # (Auto) 0.1 Baso # (Auto) 0.0 Abs Immat Gran (auto) 0.10 H Absolute Neuts (auto) 15.7 H Absolute Nucleated RBC 0.000 Nucleated RBC % (auto) 0.0 Smear Tech's Comments PT INR APTT VBG pH VBG pCO2 VBG pO2 VBG HCO3 VBG O2 Saturation VBG Base Excess Sodium Potassium Chloride Carbon Dioxide Anion Gap BUN Creatinine Estim Creat Clear Calc Estimated GFR POC Glucose Random Glucose Lactic Acid Lactic Acid F/U @ 2Hr 2.3 H* Lactic Acid F/U @ 4Hr 2.2 H* Calcium Phosphorus Magnesium Total Bilirubin AST ALT Alkaline Phosphatase Total Creatine Kinase Troponin I High Sens B-Natriuretic Peptide Total Protein Albumin Lipase Urine Color Yellow Urine Appearance Clear Urine pH 5.0 Ur Specific [place] 1.015 Urine Protein Trace Urine Glucose (UA) Negative Urine Ketones Negative Urine Blood Negative Urine Nitrite Negative Ur Leukocyte Esterase Negative Stool Occult Blood Urine Opiates Screen Not Detected Urine Fentanyl Screen Not Detected Ur Barbiturates Screen Not Detected Ur Phencyclidine Scrn Not Detected Ur Amphetamines Screen Not Detected U Benzodiazepines Scrn Not Detected Urine Cocaine Screen Not Detected U Marijuana (THC) Screen Not Detected Ethyl Alcohol COVID-19 (REMY) COVID-19 Clin Com Influenza Type A (STEPHANIE) Influenza Type B (STEPHANIE) Influenza A & B Note Blood Type Antibody Screen Crossmatch 08/17/23 08/18/23 08/18/23 23:16 00:10 05:17 WBC 13.6 H 12.0 H RBC 3.97 L 3.74 L Hgb 13.3 L 12.6 L Hct 38.5 L 36.5 L MCV 97.0 97.6 MCH 33.5 H 33.7 H MCHC 34.5 34.5 RDW 15.3 15.4 Plt Count 145 L 141 L MPV 12.0 12.4 Immature Gran % (Auto) 0.6 H Neut % (Auto) 93.3 H Lymph % (Auto) 4.8 L Dukes % (Auto) 1.2 L Eos % (Auto) 0.0 Baso % (Auto) 0.1 Lymph # (Auto) 0.6 L Dukes # (Auto) 0.1 Eos # (Auto) 0.0 Baso # (Auto) 0.0 Abs Immat Gran (auto) 0.07 H Absolute Neuts (auto) 11.2 H Absolute Nucleated RBC 0.000 0.040 H Nucleated RBC % (auto) 0.0 0.3 H Smear Tech's Comments VERIFIED PT 13.3 INR 1.1 APTT VBG pH VBG pCO2 VBG pO2 VBG HCO3 VBG O2 Saturation VBG Base Excess Sodium 138 Potassium 4.6 Chloride 102 Carbon Dioxide 22 Anion Gap 19 BUN 69 H Creatinine 2.24 H Estim Creat Clear Calc 35.9 Estimated GFR 28 POC Glucose 346 H Random Glucose 410 H* Lactic Acid Lactic Acid F/U @ 2Hr Lactic Acid F/U @ 4Hr Calcium 8.1 L Phosphorus 3.1 Magnesium 1.9 Total Bilirubin 0.7 AST 19 ALT 16 Alkaline Phosphatase 78 Total Creatine Kinase Troponin I High Sens B-Natriuretic Peptide Total Protein 6.3 L Albumin 3.4 L Lipase Urine Color Urine Appearance Urine pH Ur Specific [place] Urine Protein Urine Glucose (UA) Urine Ketones Urine Blood Urine Nitrite Ur Leukocyte Esterase Stool Occult Blood Urine Opiates Screen Urine Fentanyl Screen Ur Barbiturates Screen Ur Phencyclidine Scrn Ur Amphetamines Screen U Benzodiazepines Scrn Urine Cocaine Screen U Marijuana (THC) Screen Ethyl Alcohol COVID-19 (REMY) COVID-19 Clin Com Influenza Type A (STEPHANIE) Influenza Type B (STEPHANIE) Influenza A & B Note Blood Type Antibody Screen Crossmatch 08/18/23 08/18/23 05:27 05:43 WBC RBC Hgb Hct MCV MCH MCHC RDW Plt Count MPV Immature Gran % (Auto) Neut % (Auto) Lymph % (Auto) Dukes % (Auto) Eos % (Auto) Baso % (Auto) Lymph # (Auto) Dukes # (Auto) Eos # (Auto) Baso # (Auto) Abs Immat Gran (auto) Absolute Neuts (auto) Absolute Nucleated RBC Nucleated RBC % (auto) Smear Tech's Comments PT INR APTT VBG pH 7.40 VBG pCO2 40 VBG pO2 53 VBG HCO3 25 VBG O2 Saturation 80.0 VBG Base Excess 0.6 Sodium Potassium Chloride Carbon Dioxide Anion Gap BUN Creatinine Estim Creat Clear Calc Estimated GFR POC Glucose 333 H Random Glucose Lactic Acid Lactic Acid F/U @ 2Hr Lactic Acid F/U @ 4Hr Calcium Phosphorus Magnesium Total Bilirubin AST ALT Alkaline Phosphatase Total Creatine Kinase Troponin I High Sens B-Natriuretic Peptide Total Protein Albumin Lipase Urine Color Urine Appearance Urine pH Ur Specific [place] Urine Protein Urine Glucose (UA) Urine Ketones Urine Blood Urine Nitrite Ur Leukocyte Esterase Stool Occult Blood Urine Opiates Screen Urine Fentanyl Screen Ur Barbiturates Screen Ur Phencyclidine Scrn Ur Amphetamines Screen U Benzodiazepines Scrn Urine Cocaine Screen U Marijuana (THC) Screen Ethyl Alcohol COVID-19 (REMY) COVID-19 Clin Com Influenza Type A (STEPHANIE) Influenza Type B (STEPHANIE) Influenza A & B Note Blood Type Antibody Screen Crossmatch Airway Mallampati Class: III TM Dist: >3cm Neck ROM: Full Heart: IRRR Lungs: CTA Assessment and Plan Assessment Anesthesia Assessment: Anesthesia Plan Discussed and Chart Reviewed Final Anesthetic Review Family History of Problems with Anesthesia: No History of Problems with Anesthesia: No NPO: Yes ASA Class: III and Emergency Final Preanesthetic Review: No Changes in Pt Med Stat, Meds/Allgs Chart Reviewed, Consent Obtained/Reviewed and Anes Risks/Benef Reviewed Patient Risk: High Procedure Risk: Low Anesthetic Plan Anesthetic Plan: MAC: Disposition: Inp. Admit - ICU
--- NOTE | 2023-08-18 10:12 | MHC.SHP ---
Pre-Procedural Eval Section A Date of Service: 08/18/23 The patient is an INPATIENT: Yes The History & Physical has been completed within 30 days and I have reviewed it.: Yes Section B Chief Complaint: GIB Allergies: Allergies Allergy/AdvReac Type Severity Reaction Status Date / Time No Known Allergies Allergy Verified 12/22/21 15:24 Plan Diagnosis/Plan: Unchanged I have reviewed the history and physical and performed a pertinent physical examination on my patient. No changes have occurred unless specified. Time Spent With Patient Time: Total time managing care of this patient today ____ minutes.
--- NOTE | 2023-08-18 10:12 | W.PM.OPN ---
Operative Note Operative Note Date of Service: 08/18/23 Narrative: Procedure Description: EGD Indication: acute Gi bleed Anesthesia: MAC, also given reglan 5 mg IV FLEXIBLE TRANSORAL UPPER GASTROINTESTINAL ENDOSCOPY UPPER ENDOSCOPY Consent: Indications for the procedure and potential complications of bleeding, perforation, reaction to medications and missed diagnosis were discussed with the patient and informed consent was obtained. Instrument: Olympus GIF H 190 J mid size upper endoscope Monitoring: Vital signs and clinical assessment, continuous EKG monitoring, Pulse oximetry, Carbon Dioxide monitoring and blood pressure monitoring were done throughout the procedure. Procedure: The patient was placed in the left lateral decubitis position and pre-procedure medications were administered and a bite block was placed. The endoscope was inserted into the mouth and advanced under direct vision to the third part of duodenum. A careful inspection was made as the upper endoscope was withdrawn including a retroflexed examination of the proximal stomach; Findings and interventions are described below. Findings: Larynx:normal Esophagus: GE junction at 40 cm, diaphragm hiatus at 40 cm, no varices or esophagitis. Stomach: Patchy gastric erythema. Grade 2 flap valve on retroflexed examination of the cardia. At the cardia lesser curve side a superficial ulcer noted measuring about 10-12 mm with adherent clot and oozing noted. There was a large amount of clot in the fundus. To improve visualization the clots were pushed down with rat tooth and net. The ulcer was injected with 2 cc of epinephrine and then the clot was debrided. there was ozzing still noted around what appeared to be a visible vessel. The OTC clip was attached to the scope and then deployed over the area of concern. there was still some oozing so hemospray was liberally sprayed. Duodenum: Normal bulb and descending duodenum, Intervention: control of bleeding, injection of epinephrine Impression/Findings: Bleeding ulcer with adherent clot estela grade IIb s/p clip and hemospray, unable to fully visualize fundus due to clot PLAN: cont with High dose PPI, can put on drip transfuse if needed, may consider repeat EGD in 48 hrs to re evaluate the fundus will see how he does clinically avoid eliquis, heparin may need more FFP, K centra consider rechecking INR and APTT albeit it not perfect for NOAC monitoring
--- NOTE | 2023-08-18 10:19 | PM.CCPN ---
Subjective Subjective Date of Service: 08/18/23 Interval History: This 78-year-old gentleman with underlying Alzheimer's, AFib on Eliquis, diastolic heart failure, coronary artery disease admitted on 08/17/2023 with melanotic stools, initially to general medical booth. Patient received Kcentra and blood product/IV fluid support. He was hemodynamically stable. While in ER patient had another episode of bleeding, at that time bright red blood per rectum and with concern for necessity for close monitoring he was monitored in the intensive care unit overnight with no rebleeding. Patient was evaluated by Gastroenterology and had EGD with demonstration of gastric ulcer with a clot. Critical Care Time (minutes): 0 Physical Exam Vital Signs: Vital Signs: Last Vital Signs Temp 98.4 F 08/18/23 08:00 Pulse 100 08/18/23 08:00 Resp 17 08/18/23 08:00 BP 147/73 H 08/18/23 08:00 Pulse Ox 96 08/18/23 08:00 O2 Del Method Nasal Cannula 08/18/23 08:00 O2 Flow Rate 3 08/18/23 08:00 BMI result Body Mass Index 37.1 Const: General: no acute distress, alert and awake Eyes: Sclerae: sclerae normal EOM: EOMs intact bilaterally Neck: Neck: Yes no lymphadenopathy, Yes trachea midline and Yes supple Resp: Effort & Inspection: normal respiratory effort and no respiratory distress Auscultation: clear to auscultation bilaterally Cardio: Rate: regular rate Rhythm: regular rhythm Heart sounds: no gallops, no murmurs and no rubs GI: Palpation (GI): Soft to palpation and Other GI palpation findings present ( Nontender) Auscultation: normal bowel sounds Extrem: General: No clubbing, No cyanosis and Yes edema (1+ bilateral) Objective Data Labs 08/18/23 05:17 08/18/23 05:17 Labs: Laboratory Results - last 24 hr 08/17/23 08/17/23 08/17/23 10:15 10:40 10:44 WBC 9.9 RBC 3.23 L D Hgb 11.4 L D Hct 33.6 L D MCV 104.0 H MCH 35.3 H MCHC 33.9 RDW 12.5 Plt Count 207 MPV 11.8 Immature Gran % (Auto) 0.6 H Neut % (Auto) 60.6 Lymph % (Auto) 27.6 [place] % (Auto) 8.5 Eos % (Auto) 2.2 Baso % (Auto) 0.5 Lymph # (Auto) 2.7 [place] # (Auto) 0.8 Eos # (Auto) 0.2 Baso # (Auto) 0.1 Abs Immat Gran (auto) 0.06 H Absolute Neuts (auto) 6.0 Absolute Nucleated RBC 0.000 Nucleated RBC % (auto) 0.0 Smear Tech's Comments PT INR APTT VBG pH VBG pCO2 VBG pO2 VBG HCO3 VBG O2 Saturation VBG Base Excess Sodium 136 Potassium 5.1 Chloride 97 Carbon Dioxide 26 Anion Gap 18 BUN 47 H Creatinine 2.49 H Estim Creat Clear Calc 31.7 Estimated GFR 25 POC Glucose 248 H Random Glucose 374 H* Lactic Acid Lactic Acid F/U @ 2Hr Lactic Acid F/U @ 4Hr Calcium 8.0 L D Phosphorus Magnesium Total Bilirubin 0.6 AST 20 ALT 14 Alkaline Phosphatase 81 Total Creatine Kinase 54 Troponin I High Sens < 2.7 B-Natriuretic Peptide 147 H Total Protein 5.8 L Albumin 3.1 L Lipase 12 Urine Color Urine Appearance Urine pH Ur Specific [place] Urine Protein Urine Glucose (UA) Urine Ketones Urine Blood Urine Nitrite Ur Leukocyte Esterase Stool Occult Blood Urine Opiates Screen Urine Fentanyl Screen Ur Barbiturates Screen Ur Phencyclidine Scrn Ur Amphetamines Screen U Benzodiazepines Scrn Urine Cocaine Screen U Marijuana (THC) Screen Ethyl Alcohol < 10 COVID-19 (REMY) COVID-19 Clin Com Influenza Type A (STEPHANIE) Influenza Type B (STEPHANIE) Influenza A & B Note Blood Type Antibody Screen Crossmatch 08/17/23 08/17/23 08/17/23 10:45 10:49 11:16 WBC RBC Hgb Hct MCV MCH MCHC RDW Plt Count MPV Immature Gran % (Auto) Neut % (Auto) Lymph % (Auto) [place] % (Auto) Eos % (Auto) Baso % (Auto) Lymph # (Auto) [place] # (Auto) Eos # (Auto) Baso # (Auto) Abs Immat Gran (auto) Absolute Neuts (auto) Absolute Nucleated RBC Nucleated RBC % (auto) Smear Tech's Comments PT 16.0 H INR 1.3 H APTT 30.8 VBG pH 7.29 L VBG pCO2 58 VBG pO2 37 VBG HCO3 28 H VBG O2 Saturation 51.0 VBG Base Excess 1.0 Sodium Potassium Chloride Carbon Dioxide Anion Gap BUN Creatinine Estim Creat Clear Calc Estimated GFR POC Glucose Random Glucose Lactic Acid Lactic Acid F/U @ 2Hr Lactic Acid F/U @ 4Hr Calcium Phosphorus Magnesium Total Bilirubin AST ALT Alkaline Phosphatase Total Creatine Kinase Troponin I High Sens B-Natriuretic Peptide Total Protein Albumin Lipase Urine Color Urine Appearance Urine pH Ur Specific [place] Urine Protein Urine Glucose (UA) Urine Ketones Urine Blood Urine Nitrite Ur Leukocyte Esterase Stool Occult Blood Urine Opiates Screen Urine Fentanyl Screen Ur Barbiturates Screen Ur Phencyclidine Scrn Ur Amphetamines Screen U Benzodiazepines Scrn Urine Cocaine Screen U Marijuana (THC) Screen Ethyl Alcohol COVID-19 (REMY) Negative COVID-19 Clin Com See Note Influenza Type A (STEPHANIE) Negative Influenza Type B (STEPHANIE) Negative Influenza A & B Note See Note Blood Type Antibody Screen Crossmatch 08/17/23 08/17/23 08/17/23 11:58 12:18 13:28 WBC RBC Hgb Hct MCV MCH MCHC RDW Plt Count MPV Immature Gran % (Auto) Neut % (Auto) Lymph % (Auto) [place] % (Auto) Eos % (Auto) Baso % (Auto) Lymph # (Auto) [place] # (Auto) Eos # (Auto) Baso # (Auto) Abs Immat Gran (auto) Absolute Neuts (auto) Absolute Nucleated RBC Nucleated RBC % (auto) Smear Tech's Comments PT INR APTT VBG pH VBG pCO2 VBG pO2 VBG HCO3 VBG O2 Saturation VBG Base Excess Sodium Potassium Chloride Carbon Dioxide Anion Gap BUN Creatinine Estim Creat Clear Calc Estimated GFR POC Glucose Random Glucose Lactic Acid 3.9 H* Lactic Acid F/U @ 2Hr Lactic Acid F/U @ 4Hr Calcium Phosphorus Magnesium Total Bilirubin AST ALT Alkaline Phosphatase Total Creatine Kinase Troponin I High Sens B-Natriuretic Peptide Total Protein Albumin Lipase Urine Color Urine Appearance Urine pH Ur Specific [place] Urine Protein Urine Glucose (UA) Urine Ketones Urine Blood Urine Nitrite Ur Leukocyte Esterase Stool Occult Blood POSITIVE Urine Opiates Screen Urine Fentanyl Screen Ur Barbiturates Screen Ur Phencyclidine Scrn Ur Amphetamines Screen U Benzodiazepines Scrn Urine Cocaine Screen U Marijuana (THC) Screen Ethyl Alcohol COVID-19 (REMY) COVID-19 Clin Com Influenza Type A (STEPHANIE) Influenza Type B (STEPHANIE) Influenza A & B Note Blood Type A Positive Antibody Screen NEGATIVE Crossmatch See Detail 08/17/23 08/17/23 08/17/23 15:29 16:43 18:10 WBC 18.4 H RBC 3.73 L Hgb 12.7 L Hct 37.6 L MCV 101.9 H MCH 34.3 H MCHC 33.7 RDW 14.6 Plt Count 160 MPV 12.9 H Immature Gran % (Auto) 0.5 H Neut % (Auto) 85.7 H Lymph % (Auto) 6.2 L [place] % (Auto) 6.9 Eos % (Auto) 0.5 Baso % (Auto) 0.2 Lymph # (Auto) 1.1 L [place] # (Auto) 1.3 H Eos # (Auto) 0.1 Baso # (Auto) 0.0 Abs Immat Gran (auto) 0.10 H Absolute Neuts (auto) 15.7 H Absolute Nucleated RBC 0.000 Nucleated RBC % (auto) 0.0 Smear Tech's Comments PT INR APTT VBG pH VBG pCO2 VBG pO2 VBG HCO3 VBG O2 Saturation VBG Base Excess Sodium Potassium Chloride Carbon Dioxide Anion Gap BUN Creatinine Estim Creat Clear Calc Estimated GFR POC Glucose Random Glucose Lactic Acid Lactic Acid F/U @ 2Hr 2.3 H* Lactic Acid F/U @ 4Hr 2.2 H* Calcium Phosphorus Magnesium Total Bilirubin AST ALT Alkaline Phosphatase Total Creatine Kinase Troponin I High Sens B-Natriuretic Peptide Total Protein Albumin Lipase Urine Color Yellow Urine Appearance Clear Urine pH 5.0 Ur Specific [place] 1.015 Urine Protein Trace Urine Glucose (UA) Negative Urine Ketones Negative Urine Blood Negative Urine Nitrite Negative Ur Leukocyte Esterase Negative Stool Occult Blood Urine Opiates Screen Not Detected Urine Fentanyl Screen Not Detected Ur Barbiturates Screen Not Detected Ur Phencyclidine Scrn Not Detected Ur Amphetamines Screen Not Detected U Benzodiazepines Scrn Not Detected Urine Cocaine Screen Not Detected U Marijuana (THC) Screen Not Detected Ethyl Alcohol COVID-19 (REMY) COVID-19 Clin Com Influenza Type A (STEPHANIE) Influenza Type B (STEPHANIE) Influenza A & B Note Blood Type Antibody Screen Crossmatch 08/17/23 08/18/23 08/18/23 23:16 00:10 05:17 WBC 13.6 H 12.0 H RBC 3.97 L 3.74 L Hgb 13.3 L 12.6 L Hct 38.5 L 36.5 L MCV 97.0 97.6 MCH 33.5 H 33.7 H MCHC 34.5 34.5 RDW 15.3 15.4 Plt Count 145 L 141 L MPV 12.0 12.4 Immature Gran % (Auto) 0.6 H Neut % (Auto) 93.3 H Lymph % (Auto) 4.8 L [place] % (Auto) 1.2 L Eos % (Auto) 0.0 Baso % (Auto) 0.1 Lymph # (Auto) 0.6 L [place] # (Auto) 0.1 Eos # (Auto) 0.0 Baso # (Auto) 0.0 Abs Immat Gran (auto) 0.07 H Absolute Neuts (auto) 11.2 H Absolute Nucleated RBC 0.000 0.040 H Nucleated RBC % (auto) 0.0 0.3 H Smear Tech's Comments VERIFIED PT 13.3 INR 1.1 APTT VBG pH VBG pCO2 VBG pO2 VBG HCO3 VBG O2 Saturation VBG Base Excess Sodium 138 Potassium 4.6 Chloride 102 Carbon Dioxide 22 Anion Gap 19 BUN 69 H Creatinine 2.24 H Estim Creat Clear Calc 35.9 Estimated GFR 28 POC Glucose 346 H Random Glucose 410 H* Lactic Acid Lactic Acid F/U @ 2Hr Lactic Acid F/U @ 4Hr Calcium 8.1 L Phosphorus 3.1 Magnesium 1.9 Total Bilirubin 0.7 AST 19 ALT 16 Alkaline Phosphatase 78 Total Creatine Kinase Troponin I High Sens B-Natriuretic Peptide Total Protein 6.3 L Albumin 3.4 L Lipase Urine Color Urine Appearance Urine pH Ur Specific [place] Urine Protein Urine Glucose (UA) Urine Ketones Urine Blood Urine Nitrite Ur Leukocyte Esterase Stool Occult Blood Urine Opiates Screen Urine Fentanyl Screen Ur Barbiturates Screen Ur Phencyclidine Scrn Ur Amphetamines Screen U Benzodiazepines Scrn Urine Cocaine Screen U Marijuana (THC) Screen Ethyl Alcohol COVID-19 (REMY) COVID-19 Clin Com Influenza Type A (STEPHANIE) Influenza Type B (STEPHANIE) Influenza A & B Note Blood Type Antibody Screen Crossmatch 08/18/23 08/18/23 05:27 05:43 WBC RBC Hgb Hct MCV MCH MCHC RDW Plt Count MPV Immature Gran % (Auto) Neut % (Auto) Lymph % (Auto) [place] % (Auto) Eos % (Auto) Baso % (Auto) Lymph # (Auto) [place] # (Auto) Eos # (Auto) Baso # (Auto) Abs Immat Gran (auto) Absolute Neuts (auto) Absolute Nucleated RBC Nucleated RBC % (auto) Smear Tech's Comments PT INR APTT VBG pH 7.40 VBG pCO2 40 VBG pO2 53 VBG HCO3 25 VBG O2 Saturation 80.0 VBG Base Excess 0.6 Sodium Potassium Chloride Carbon Dioxide Anion Gap BUN Creatinine Estim Creat Clear Calc Estimated GFR POC Glucose 333 H Random Glucose Lactic Acid Lactic Acid F/U @ 2Hr Lactic Acid F/U @ 4Hr Calcium Phosphorus Magnesium Total Bilirubin AST ALT Alkaline Phosphatase Total Creatine Kinase Troponin I High Sens B-Natriuretic Peptide Total Protein Albumin Lipase Urine Color Urine Appearance Urine pH Ur Specific [place] Urine Protein Urine Glucose (UA) Urine Ketones Urine Blood Urine Nitrite Ur Leukocyte Esterase Stool Occult Blood Urine Opiates Screen Urine Fentanyl Screen Ur Barbiturates Screen Ur Phencyclidine Scrn Ur Amphetamines Screen U Benzodiazepines Scrn Urine Cocaine Screen U Marijuana (THC) Screen Ethyl Alcohol COVID-19 (REMY) COVID-19 Clin Com Influenza Type A (STEPHANIE) Influenza Type B (STEPHANIE) Influenza A & B Note Blood Type Antibody Screen Crossmatch Progress Note: A&P Assessment and plan (1) Upper GI bleed: Status: Acute (2) Gastric ulcer: Status: Acute (3) Acute gastrointestinal bleeding: Status: Acute (4) Diabetes mellitus: Status: Acute (5) CAD (coronary artery disease): Status: Acute (6) HTN (hypertension): Status: Acute (7) Alzheimer's dementia: Status: Acute (8) Atrial fibrillation: Status: Acute Plan Assessment: 78-year-old gentleman admitted with upper GI bleed secondary to gastric also on the background of Eliquis use for underlying AFib Plan: Neuro: No acute issues. Underlying Alzheimer's disease. Cardiac: No acute issues. Underlying AFib, no longer on anticoagulation. Underlying diastolic heart failure and CAD. Pulmonary: No acute issues. Renal: No acute issues. Endo: No acute issues. GI: Upper GI bleed with gastric ulcer with visible clot on EGD. Gastroenterology service appreciated. PPI drip for 72 hours. Per GI, patient had high clot burden and some melena is expected. ID: No acute issues Heme/Onc: Acute blood loss anemia secondary to upper GI bleed. Hemoglobin stabilized. Continue to monitor hemoglobin level. Psych: No acute issues. Miscellaneous: No acute issues. Prophylaxis: PPI drip Diet: NPO Quality Stroke Does the patient have a stroke diagnosis?: No VTE Prior VTE?: No VTE Risk Level:: Medical - moderate - high VTE Device Contraindication: N/A - Device Ordered VTE Drug Contraindication: Treatment Not Indicated
[2023-08-18] MEDS: Pantoprazole Sodium 80 MG in 0.9 % Sodium Chloride 80 ML 10 MG IV ×2 (12:22→22:04)
[2023-08-18 12:31] LABS: Glucose, Whole Blood 390 mg/dL (60-115)
[2023-08-18] MEDS: Acetaminophen 325 MG TABLET 650 MG PO (15:41)
[2023-08-18 15:57] LABS: Glucose, Whole Blood 361 mg/dL (60-115)
[2023-08-18 20:55] LABS: Glucose, Whole Blood 345 mg/dL (60-115)
[2023-08-18 23:57] LABS: Glucose, Whole Blood 367 mg/dL (60-115)
[2023-08-19] VITALS (10 sets, daily range): BP systolic 130–153; BP diastolic 72–87; PULSE 81–142; RESP 17–20; TEMP 35.9–37.1; O2SAT 93–97
--- NOTE | 2023-08-19 | ECG_ITS ---
Test Reason : Tachycardia Blood Pressure : / mmHG Vent. Rate : 128 BPM Atrial Rate : 000 BPM P-R Int : 000 ms QRS Dur : 076 ms QT Int : 310 ms P-R-T Axes : 000 039 -86 degrees QTc Int : 452 ms Atrial fibrillation with rapid ventricular response with premature ventricular or aberrantly conducted complexes Low voltage QRS Possible Inferior infarct (cited on or before 28-MAR-2023) Possible Anterolateral infarct , age undetermined Abnormal ECG When compared with ECG of 17-AUG-2023 10:42, Vent. rate has increased Referred By: Sharan Pelletier Electronically Signed By:LISBETH RIVERA
[2023-08-19] MEDS: Insulin Lispro 100 UNIT/ML 3 ML VIAL SUBCUT ×5 (00:16→20:24)
[2023-08-19 07:11] LABS: Glucose, Whole Blood 342 mg/dL (60-115)
[2023-08-19] MEDS: Pantoprazole Sodium 80 MG in 0.9 % Sodium Chloride 80 ML 10 MG IV ×2 (07:36→17:21)
[2023-08-19 08:13] LABS: MANUAL DIFF FLAG NO
[2023-08-19 08:20] LABS: Basophils Percent Auto 0.2 % (0-2); Eosinophils Percent Auto 0.1 % (0-4); Hematocrit 36.4 % (42.0-52.0); Hemoglobin 12.1 g/dl (14.0-18.0); Imm Gran Abs Auto 0.07 X10*3/uL (0.00-0.03); Imm Gran Pct Auto 0.5 % (0.0-0.4); Lymphocytes Absolute Auto 1.2 X10*3/uL (1.2-4.9); Lymphocytes Percent Auto 9.4 % (20-40); Mean Corpuscular HGB Conc 33.2 g/dl (31.0-36.0); Mean Corpuscular Hemoglobin 33.1 pg (27.0-33.0); Mean Corpuscular Volume 99.5 fL (80.0-98.0); Mean Platelet Volume 12.4 fL (9.4-12.4); Monocytes Absolute Auto 1.2 X10*3/uL (0.1-1.2); Monocytes Percent Auto 9.3 % (2-11); Neutrophils Absolute Auto 10.5 x10*3/uL (2.0-8.3); Neutrophils Percent Auto 80.5 % (45-73); Platelet Count 148 X10*3/uL (160-400); Red Blood Count 3.66 X10*6/uL (4.60-5.80); Red Cell Distribution Width 15.2 % (11.0-16.0); White Blood Count 13.1 X10*3/uL (4.8-10.8)
[2023-08-19 08:25] LABS: INTERNATIONAL NORM RATIO 0.9 (0.9-1.1); Prothrombin Time 11.2 SEC (11.1-13.3)
[2023-08-19 08:40] LABS: Alanine Aminotransferase 15 U/L (0-40); Albumin Level 3.6 g/dL (3.5-5.0); Alkaline Phosphatase 74 U/L (39-117); Anion Gap 19 (12-20); Aspartate Amino Transferase 30 U/L (5-37); Bilirubin Total 0.9 mg/dL (0.0-1.0); Blood Urea Nitrogen 45 mg/dL (9-16); Calcium 9.2 mg/dL (8.4-10.2); Carbon Dioxide 22 mmol/L (22-29); Chloride 103 mmol/L (96-108); Creatinine Clr Calc Pharmacy 47.3; Estimated Glomerular Filt Rate 39; Glucose Random 346 mg/dL (60-115); Sodium 140 mmol/L (135-145); Total Protein 6.5 g/dL (6.5-8.0)
[2023-08-19] MEDS: 0.9 % Sodium Chloride Flush 3 ML SYRINGE IVFLUSH ×3 (08:40→20:25)
[2023-08-19] MEDS: Metoprolol Tartrate 5 MG/5 ML VIAL IVPUSH ×2 (08:40→10:26)
[2023-08-19] MEDS: Metoprolol Tartrate 25 MG TABLET PO ×3 (10:26→20:24)
--- NOTE | 2023-08-19 10:59 | PM.GIPN ---
Subjective Subjective Date of Service: 08/19/23 Interval History: seems v stable tolerating PO clears hemodynamics are stable, as is HGB comfortable in the chair Critical Care Time (minutes): 0 Physical Exam Vital Signs: Vital Signs: Last Vital Signs Temp 97.8 F 08/19/23 07:37 Pulse 102 H 08/19/23 10:32 Resp 20 08/19/23 07:37 BP 153/77 H 08/19/23 10:32 Pulse Ox 94 08/19/23 07:37 O2 Del Method Room Air 08/19/23 07:37 O2 Flow Rate 1 08/19/23 03:51 BMI result Body Mass Index 37.1 EXAM: GENERAL: The patient is comfortable, central neck line noted VITAL SIGNS:see workflow HEENT: Nonicteric sclerae, PERRLA, EOMI. Oropharynx clear. Moist mucous membranes. Conjunctivae appear well perfused. No thyroid mass. CHEST: Chest wall is nontender. HEART: Regular rate and rhythm without murmurs. LUNGS: Clear to auscultation bilaterally. ABDOMEN: Soft, positive bowel sounds, nontender, no organomegaly.no flank tenderness SKIN: No rash, no excessive bruising, petechiae, or purpura. NEUROLOGIC: Cranial nerves II-XII intact without motor/sensory deficit. psych- dementia Objective Data Labs 08/19/23 05:51 08/19/23 05:51 Labs: Laboratory Results - last 24 hr 08/18/23 08/18/23 08/18/23 12:27 15:52 20:51 WBC RBC Hgb Hct MCV MCH MCHC RDW Plt Count MPV Immature Gran % (Auto) Neut % (Auto) Lymph % (Auto) [place] % (Auto) Eos % (Auto) Baso % (Auto) Lymph # (Auto) [place] # (Auto) Eos # (Auto) Baso # (Auto) Abs Immat Gran (auto) Absolute Neuts (auto) Absolute Nucleated RBC Nucleated RBC % (auto) PT INR Sodium Potassium Chloride Carbon Dioxide Anion Gap BUN Creatinine Estim Creat Clear Calc Estimated GFR POC Glucose 390 H* 361 H* 345 H Random Glucose Calcium Total Bilirubin AST ALT Alkaline Phosphatase Total Protein Albumin 08/18/23 08/19/23 08/19/23 23:52 05:51 07:07 WBC 13.1 H RBC 3.66 L Hgb 12.1 L Hct 36.4 L MCV 99.5 H MCH 33.1 H MCHC 33.2 RDW 15.2 Plt Count 148 L MPV 12.4 Immature Gran % (Auto) 0.5 H Neut % (Auto) 80.5 H Lymph % (Auto) 9.4 L [place] % (Auto) 9.3 Eos % (Auto) 0.1 Baso % (Auto) 0.2 Lymph # (Auto) 1.2 [place] # (Auto) 1.2 Eos # (Auto) 0.0 Baso # (Auto) 0.0 Abs Immat Gran (auto) 0.07 H Absolute Neuts (auto) 10.5 H Absolute Nucleated RBC 0.000 Nucleated RBC % (auto) 0.0 PT 11.2 INR 0.9 Sodium 140 Potassium 4.0 Chloride 103 Carbon Dioxide 22 Anion Gap 19 BUN 45 H Creatinine 1.70 H Estim Creat Clear Calc 47.3 Estimated GFR 39 POC Glucose 367 H* 342 H Random Glucose 346 H Calcium 9.2 D Total Bilirubin 0.9 AST 30 ALT 15 Alkaline Phosphatase 74 Total Protein 6.5 Albumin 3.6 Procedures Date of Service Date of Service: 08/19/23 Progress Note: A&P Assessment and plan (1) Gastric ulcer: Status: Acute (2) Acute gastrointestinal bleeding: Status: Acute Plan 1/ Acute blod loss anemia, from gastric ulcer, s/p clip and hemospray PLAN: 1/ hold eliquis 2/ Repeat EGD Sunday before recommencing eliquis also to re eval fundus which was sub optimally visualized due to clot burden 3/ cont IV PPI for the moment, advance diet 4/ check h pylori stool antigen Time Spent With Patient Time: Total time managing care of this patient today ____ minutes. Quality Stroke Does the patient have a stroke diagnosis?: No VTE Prior VTE?: No VTE Risk Level:: Medical - moderate - high VTE Device Contraindication: N/A - Device Ordered VTE Drug Contraindication: Treatment Not Indicated
[2023-08-19 11:11] LABS: Glucose, Whole Blood 375 mg/dL (60-115)
--- NOTE | 2023-08-19 11:55 | HO.POSTANES ---
Post Anesthesia Evaluation Post Anesthesia Evaluation Date of Service: 08/19/23 Vital Signs: Vital Signs Temp Pulse Resp BP Pulse Ox O2 Del Method O2 Flow Rate 08/19/23 11:26 97.3 F 81 20 133/75 96 Room Air 08/19/23 10:32 102 H 153/77 H 08/19/23 08:51 95 08/19/23 07:52 142 H 08/19/23 07:37 97.8 F 118 H 20 152/79 H 94 Room Air 08/19/23 03:51 96.8 F 93 18 130/72 97 Nasal Cannula 1 Anesthesia: Monitored Mental Status: Awake Pain Control: Satisfactory Nausea/Vomiting: None Hydration: Adequate Anesthesia-Related Issues: No Anes. Related Issues
--- NOTE | 2023-08-19 13:46 | HO.PM.IMPN ---
Subjective Subjective Date of Service: 08/19/23 Interval History: Episodic atrial fibrillation with rapid ventricular response. Responded well to Lopressor. No further acute bleeding. Patient states feels better Review of Systems Denies chest pain Denies shortness of breath Denies nausea vomiting diarrhea Denies fever chills Physical Exam Vital Signs: Vital Signs: Last Vital Signs Temp 96.7 F L 08/19/23 13:05 Pulse 81 08/19/23 11:26 Resp 20 08/19/23 11:26 BP 133/75 08/19/23 11:26 Pulse Ox 96 08/19/23 11:26 O2 Del Method Room Air 08/19/23 11:26 O2 Flow Rate 1 08/19/23 03:51 BMI result Body Mass Index 37.1 Const: Other: Awake alert no acute distress Resp: Other: Clear to auscultation bilaterally no rales rhonchi or wheezes Cardio: Other: No S4; positive S1-S2; no S3 murmurs rubs or gallops GI: Other: Soft nontender nondistended normoactive bowel sounds : Other: Maroon heme-positive stool noted Neuro: Other: Cranial nerves 2-12 grossly intact as tested. Motor 5/5 all extremities sensation intact. Not ambulated Extrem: Other: No edema bilaterally Objective Data Active Medications Acetaminophen (Acetaminophen 325 Mg Tablet) 650 mg PO Q6H PRN PRN Reason: Pain, Mild (Pain Scale 1-3) Last Admin: 08/18/23 15:41 Dose: 650 mg Documented By: SIA Dextrose (Dextrose 50 % 25 Gm/50 Ml Syringe) 25 gm IVPUSH Q15M PRN; Protocol PRN Reason: per Hypoglycemia Standing Ord. Glucose (Glucose Gel 15 Gm Gel..Gram.) 15 gm PO Q15M PRN; Protocol PRN Reason: per Hypoglycemia Standing Ord. Pantoprazole Sodium 80 mg/ (Sodium Chloride) 100 mls @ 10 mls/hr IV .Q10H [facility] Last Admin: 08/19/23 07:36 Dose: 8 mg/hr, 10 mls/hr Documented By: SIA Insulin Human Lispro (Insulin Lispro 100 Unit/Ml 3 Ml Vial) 0 unit SUBCUT QIDACHS [facility]; Protocol Last Admin: 08/19/23 12:10 Dose: 10 unit Documented By: SIA Metoprolol Tartrate (Metoprolol Tartrate 25 Mg Tablet) 25 mg PO TID [facility]; Protocol Last Admin: 08/19/23 10:26 Dose: 25 mg Documented By: SIA Ondansetron HCl (Ondansetron Hcl 4 Mg/2 Ml Vial) 4 mg IVPUSH Q8H PRN PRN Reason: Nausea and Vomiting Sodium Chloride (0.9 % Sodium Chloride Flush 3 Ml Syringe) 3 ml IVFLUSH QSHIFT [facility] Last Admin: 08/19/23 08:40 Dose: 3 ml Documented By: SIA Labs 08/19/23 05:51 08/19/23 05:51 Labs: Laboratory Results - last 24 hr 08/18/23 08/18/23 08/18/23 15:52 20:51 23:52 MCV MCH MCHC RDW Plt Count MPV Immature Gran % (Auto) Neut % (Auto) Lymph % (Auto) [place] % (Auto) Eos % (Auto) Baso % (Auto) Lymph # (Auto) [place] # (Auto) Eos # (Auto) Baso # (Auto) Abs Immat Gran (auto) Absolute Neuts (auto) Absolute Nucleated RBC Nucleated RBC % (auto) PT INR Anion Gap Estim Creat Clear Calc Estimated GFR POC Glucose 361 H* 345 H 367 H* Random Glucose Calcium Total Bilirubin AST ALT Alkaline Phosphatase Total Protein Albumin 08/19/23 08/19/23 08/19/23 05:51 07:07 11:07 MCV 99.5 H MCH 33.1 H MCHC 33.2 RDW 15.2 Plt Count 148 L MPV 12.4 Immature Gran % (Auto) 0.5 H Neut % (Auto) 80.5 H Lymph % (Auto) 9.4 L [place] % (Auto) 9.3 Eos % (Auto) 0.1 Baso % (Auto) 0.2 Lymph # (Auto) 1.2 [place] # (Auto) 1.2 Eos # (Auto) 0.0 Baso # (Auto) 0.0 Abs Immat Gran (auto) 0.07 H Absolute Neuts (auto) 10.5 H Absolute Nucleated RBC 0.000 Nucleated RBC % (auto) 0.0 PT 11.2 INR 0.9 Anion Gap 19 Estim Creat Clear Calc 47.3 Estimated GFR 39 POC Glucose 342 H 375 H* Random Glucose 346 H Calcium 9.2 D Total Bilirubin 0.9 AST 30 ALT 15 Alkaline Phosphatase 74 Total Protein 6.5 Albumin 3.6 Assessment and Plan (1) Upper GI bleed: Status: Acute (2) Atrial fibrillation: Status: Acute Plan 78-year-old male with history of atrial fibrillation on Eliquis, Alzheimer's dementia, diabetes, HFpEF , CAD presents with several stools of maroon foul-smelling stool. (Heme-positive). In the emergency room given Kcentra along with PRBCs x2. Current hemodynamically stable with sats maintained at 3 liters/minute. Given 1 dose of IV pantoprazole. Volume resuscitation with saline completed. 1.Upper GI bleed -no further bleeding -EGD results noted -will continue to hold Eliquis pending repeat endoscopy 08/21/2023 2. Atrial fibrillation -concurrently rate control; responding to beta-blockade -last echo 2020 demonstrates LVEF 55-60% -Eliquis on hold secondary to 1. -pulse dose with IV Lopressor as needed to control heart rate; oral metoprolol initiated 3. CKD 3 -creatinine appears at baseline... HD as per Renal -avoid nephrotoxic agents -follow renals/divalents 4.DMII -will hold all oral agents at this time -lispro correctional scale -adjust as clinically indicated Full code Pneumatics Time Spent With Patient Time: Total time managing care of this patient today ____ minutes. Quality Stroke Does the patient have a stroke diagnosis?: No VTE Prior VTE?: No VTE Risk Level:: Medical - moderate - high VTE Device Contraindication: N/A - Device Ordered VTE Drug Contraindication: Treatment Not Indicated
--- NOTE | 2023-08-19 13:52 | MHC.CM.PN ---
EMR REVIEWED, CM CONTACTED PT'S SON/HCP [facility] AT 13:25PM VIA PHONE CATERING DIRECTOR, [facility] REPORTS PT LIVES W/HIM AND DIL. PT CAN WALK W/WALKER BUT NOT VERY FAR AND NEEDS SOMEONE W/HIM, PT HAS WALKER,W/C, SHOWER CHAIR, BEDSIDE COMMODE FOR DME, [facility] IS DAILY CLINICAL RN LIAISON THROUGH [facility] AND PT HAS A [facility] CM WHO IS VERY INVOLVED AND ASSISTS W/ANY NEEDS. PER [facility] GOAL IS HOME W/RESUMP OF CLINICAL RN LIAISON. [facility] VERIFIES PCP/HCP ON FILE IS CORRECT. PLAN FOR REPEAT EGD SUNDAY AND ANTIC D/C BY WEDNESDAY 08/22
[2023-08-19 16:05] LABS: Glucose, Whole Blood 342 mg/dL (60-115)
[2023-08-19 20:13] LABS: Glucose, Whole Blood 297 mg/dL (60-115)
[2023-08-19] MEDS: Insulin Glargine,Hum.rec.anlog 100 UNIT/ML 10 ML VIAL 20 UNIT SUBCUT (20:25)
[2023-08-20] MEDS: Pantoprazole Sodium 80 MG in 0.9 % Sodium Chloride 80 ML 10 MG IV ×3 (03:01→23:46)
[2023-08-20 03:14] VITALS: BP 143/81; PULSE 108; RESP 18; TEMP 37; O2SAT 97
[2023-08-20 07:16] LABS: MANUAL DIFF FLAG NO
[2023-08-20 07:21] LABS: Basophils Percent Auto 0.2 % (0-2); Eosinophils Percent Auto 0.1 % (0-4); Hematocrit 34.1 % (42.0-52.0); Hemoglobin 11.7 g/dl (14.0-18.0); Imm Gran Abs Auto 0.07 X10*3/uL (0.00-0.03); Imm Gran Pct Auto 0.5 % (0.0-0.4); Lymphocytes Absolute Auto 0.9 X10*3/uL (1.2-4.9); Lymphocytes Percent Auto 7.1 % (20-40); Mean Corpuscular HGB Conc 34.3 g/dl (31.0-36.0); Mean Corpuscular Volume 99.1 fL (80.0-98.0); Monocytes Absolute Auto 0.9 X10*3/uL (0.1-1.2); Monocytes Percent Auto 7.1 % (2-11); Neutrophils Absolute Auto 11.2 x10*3/uL (2.0-8.3); Platelet Count 146 X10*3/uL (160-400); Red Blood Count 3.44 X10*6/uL (4.60-5.80); Red Cell Distribution Width 15.2 % (11.0-16.0); White Blood Count 13.2 X10*3/uL (4.8-10.8)
[2023-08-20 07:25] LABS: Prothrombin Time 11.6 SEC (11.1-13.3)
[2023-08-20 07:30] LABS: Glucose, Whole Blood 322 mg/dL (60-115)
[2023-08-20 07:45] LABS: Alanine Aminotransferase 16 U/L (0-40); Albumin Level 3.5 g/dL (3.5-5.0); Alkaline Phosphatase 76 U/L (39-117); Anion Gap 19 (12-20); Aspartate Amino Transferase 40 U/L (5-37); Blood Urea Nitrogen 33 mg/dL (9-16); Calcium 8.7 mg/dL (8.4-10.2); Carbon Dioxide 22 mmol/L (22-29); Chloride 101 mmol/L (96-108); Estimated Glomerular Filt Rate 46; Glucose Random 330 mg/dL (60-115); Potassium 4.3 mmol/L (3.3-5.1); Sodium 138 mmol/L (135-145); Total Protein 6.4 g/dL (6.5-8.0)
[2023-08-20 07:46] VITALS: BP 153/72; PULSE 99; RESP 18; TEMP 36.2; O2SAT 92
[2023-08-20] MEDS: Insulin Lispro 100 UNIT/ML 3 ML VIAL SUBCUT ×4 (08:33→21:27)
[2023-08-20] MEDS: Metoprolol Tartrate 25 MG TABLET PO ×3 (08:35→21:26)
[2023-08-20] MEDS: 0.9 % Sodium Chloride Flush 3 ML SYRINGE IVFLUSH ×3 (08:35→21:27)
[2023-08-20 11:14] LABS: Glucose, Whole Blood 329 mg/dL (60-115)
--- NOTE | 2023-08-20 11:22 | HO.PM.IMPN ---
Subjective Subjective Date of Service: 08/20/23 Interval History: Patient sitting comfortably offers no acute complaints history obtained via chief accounting officer son at bedside concern that patient has difficulty swallowing food, noted to have 1 moderate blood tinged stool, denies abdominal pain, no headache no lightheadedness, no dizziness, no nausea, no vomiting, no abdominal pain no other acute issues overnight. Review of Systems All other system reviewed and negative Physical Exam Vital Signs: Vital Signs: Last Vital Signs Temp 97.2 F 08/20/23 07:46 Pulse 99 08/20/23 07:46 Resp 18 08/20/23 07:46 BP 153/72 H 08/20/23 07:46 Pulse Ox 92 08/20/23 07:46 O2 Del Method Room Air 08/20/23 07:46 O2 Flow Rate 1 08/19/23 16:00 BMI result Body Mass Index 37.1 Const: Other: General awake alert, resting comfortably in no acute distress. Neck supple, no JVD. CVS regular rate rhythm, Respiratory lungs clear to auscultation, no respiratory distress, no wheeze, no rhonchi. Gastrointestinal abdomen soft, distended, nontender, bowel sounds audible, no guarding , no rigidity. Extremities no edema. Neuro nonfocal Skin no rash Objective Data Active Medications Acetaminophen (Acetaminophen 325 Mg Tablet) 650 mg PO Q6H PRN PRN Reason: Pain, Mild (Pain Scale 1-3) Last Admin: 08/18/23 15:41 Dose: 650 mg Documented By: SIA Dextrose (Dextrose 50 % 25 Gm/50 Ml Syringe) 25 gm IVPUSH Q15M PRN; Protocol PRN Reason: per Hypoglycemia Standing Ord. Glucose (Glucose Gel 15 Gm Gel..Gram.) 15 gm PO Q15M PRN; Protocol PRN Reason: per Hypoglycemia Standing Ord. Pantoprazole Sodium 80 mg/ (Sodium Chloride) 100 mls @ 10 mls/hr IV .Q10H [facility] Last Admin: 08/20/23 03:01 Dose: 8 mg/hr, 10 mls/hr Documented By: DUSTIN Insulin Glargine (Insulin Glargine,Hum.Rec.Anlog 100 Unit/Ml 10 Ml Vial) 20 unit SUBCUT BEDTIME [facility] Last Admin: 08/19/23 20:25 Dose: 20 unit Documented By: DUSTIN Insulin Human Lispro (Insulin Lispro 100 Unit/Ml 3 Ml Vial) 0 unit SUBCUT QIDACHS [facility]; Protocol Last Admin: 08/20/23 08:33 Dose: 8 unit Documented By: SIA Metoprolol Tartrate (Metoprolol Tartrate 25 Mg Tablet) 25 mg PO TID [facility]; Protocol Last Admin: 08/20/23 08:35 Dose: 25 mg Documented By: SIA Ondansetron HCl (Ondansetron Hcl 4 Mg/2 Ml Vial) 4 mg IVPUSH Q8H PRN PRN Reason: Nausea and Vomiting Sodium Chloride (0.9 % Sodium Chloride Flush 3 Ml Syringe) 3 ml IVFLUSH QSHIFT [facility] Last Admin: 08/20/23 08:35 Dose: 3 ml Documented By: SIA Labs 08/20/23 06:54 08/20/23 06:54 Labs: Laboratory Results - last 24 hr 08/19/23 08/19/23 08/20/23 15:49 19:48 06:54 MCV 99.1 H MCH 34.0 H MCHC 34.3 RDW 15.2 Plt Count 146 L MPV 12.0 Immature Gran % (Auto) 0.5 H Neut % (Auto) 85.0 H Lymph % (Auto) 7.[address] [place] % (Auto) 7.1 Eos % (Auto) 0.1 Baso % (Auto) 0.2 Lymph # (Auto) 0.[address] [place] # (Auto) 0.9 Eos # (Auto) 0.0 Baso # (Auto) 0.0 Abs Immat Gran (auto) 0.07 H Absolute Neuts (auto) 11.2 H Absolute Nucleated RBC 0.000 Nucleated RBC % (auto) 0.0 PT 11.6 INR 1.0 Anion Gap 19 Estim Creat Clear Calc 54.0 Estimated GFR 46 POC Glucose 342 H 297 H Random Glucose 330 H Calcium 8.7 Total Bilirubin 1.0 AST 40 H ALT 16 Alkaline Phosphatase 76 Total Protein 6.4 L Albumin 3.5 Blood Type A Positive Antibody Screen NEGATIVE 08/20/23 08/20/23 07:23 11:09 MCV MCH MCHC RDW Plt Count MPV Immature Gran % (Auto) Neut % (Auto) Lymph % (Auto) [place] % (Auto) Eos % (Auto) Baso % (Auto) Lymph # (Auto) [place] # (Auto) Eos # (Auto) Baso # (Auto) Abs Immat Gran (auto) Absolute Neuts (auto) Absolute Nucleated RBC Nucleated RBC % (auto) PT INR Anion Gap Estim Creat Clear Calc Estimated GFR POC Glucose 322 H 329 H Random Glucose Calcium Total Bilirubin AST ALT Alkaline Phosphatase Total Protein Albumin Blood Type Antibody Screen Assessment and Plan (1) Upper GI bleed: Status: Acute (2) Atrial fibrillation: Status: Acute Plan 78-year-old male with history of atrial fibrillation on Eliquis, Alzheimer's dementia, diabetes, HFpEF , CAD presents with several stools of maroon foul-smelling stool. (Heme-positive). In the emergency room given Kcentra along with PRBCs x2. Current hemodynamically stable with sats maintained at 3 liters/minute. Given 1 dose of IV pantoprazole. Volume resuscitation with saline completed. 1.Upper GI bleed -denies abdominal pain , hematocrit dropped but above transfusion threshold, had blood in stool this morning, melanotic stool yesterday -EGD results noted -difficulty swallowing will change diet to mechanical soft likely due to recent upper endoscopy -will continue to hold Eliquis pending repeat endoscopy 08/21/2023 2. Atrial fibrillation -continue metoprolol , stable heart rate -last echo 2020 demonstrates LVEF 55-60% -Eliquis on hold secondary to above -pulse dose with IV Lopressor as needed to control heart rate 3. CKD 3 -creatinine appears at baseline -avoid nephrotoxic agents 4.DMII -elevated blood sugars , in 200-300 range will increase dose of insulin sliding scale, will reduce dose of Lantus tonight since patient will be NPO for upper endoscopy. 5. Obesity recommended low-calorie diet Full code Pneumatics Patient need continued inpatient hospitalization for repeat upper endoscopy Time Spent With Patient Time: Total time managing care of this patient today ____ minutes. Quality Stroke Does the patient have a stroke diagnosis?: No VTE Prior VTE?: No VTE Risk Level:: Medical - moderate - high VTE Device Contraindication: N/A - Device Ordered VTE Drug Contraindication: Treatment Not Indicated
[2023-08-20 11:24] VITALS: BP 131/71; PULSE 91; RESP 24; TEMP 37.2; O2SAT 91
[2023-08-20 15:56] VITALS: BP 122/70; PULSE 87; RESP 17; TEMP 36.6; O2SAT 90
[2023-08-20 16:38] LABS: Glucose, Whole Blood 288 mg/dL (60-115)
[2023-08-20] MEDS: Magnesium Hydrox/Alum Hydrox 30 ML ORAL.SUSP PO (18:12)
[2023-08-20 19:29] VITALS: BP 152/84; PULSE 81; RESP 18; TEMP 36.2; O2SAT 92
[2023-08-20 20:49] LABS: Glucose, Whole Blood 272 mg/dL (60-115)
[2023-08-21] VITALS (11 sets, daily range): BP systolic 118–179; BP diastolic 68–90; PULSE 76–99; RESP 16–24; TEMP 36.1–37.2; O2SAT 88–100
[2023-08-21 07:12] LABS: Hematocrit 34.7 % (42.0-52.0); Hemoglobin 11.8 g/dl (14.0-18.0); Mean Corpuscular Hemoglobin 33.8 pg (27.0-33.0); Mean Corpuscular Volume 99.4 fL (80.0-98.0); Mean Platelet Volume 12.5 fL (9.4-12.4); Platelet Count 141 X10*3/uL (160-400); Red Blood Count 3.49 X10*6/uL (4.60-5.80); Red Cell Distribution Width 14.9 % (11.0-16.0); White Blood Count 12.3 X10*3/uL (4.8-10.8)
[2023-08-21 07:41] LABS: Glucose, Whole Blood 322 mg/dL (60-115)
[2023-08-21] MEDS: Acetaminophen 325 MG TABLET 650 MG PO ×2 (08:27→21:00)
[2023-08-21] MEDS: Pantoprazole Sodium 80 MG in 0.9 % Sodium Chloride 80 ML 10 MG IV (08:29)
[2023-08-21] MEDS: 0.9 % Sodium Chloride Flush 3 ML SYRINGE IVFLUSH ×3 (08:30→20:54)
[2023-08-21] MEDS: Metoprolol Tartrate 25 MG TABLET PO ×3 (08:36→20:52)
--- NOTE | 2023-08-21 11:41 | MHC.CM.PN ---
EMR REVIEWED, PT NPO, PLAN FOR UPPER ENDOSCOPY TODAY, NO PLAN FOR D/C, ANTIC PT WILL RETURN HOME W/24HR CARE ONCE MEDICALLY CLEARED, CM WILL CONT TO FOLLOW D/C NEEDS.
[2023-08-21 11:44] LABS: Glucose, Whole Blood 349 mg/dL (60-115)
[2023-08-21] MEDS: Insulin Lispro 100 UNIT/ML 3 ML VIAL SUBCUT ×3 (12:04→20:52)
[2023-08-21 13:36] LABS: Glucose, Whole Blood 280 mg/dL (60-115)
--- NOTE | 2023-08-21 14:16 | P.CONAN_ITS ---
HPI - Anesthesia Eval Consult details Narrative: for second look gastric ulcer PMFSH Active Problems Active Problems: All Active Problems (Updated 08/18/23 @ 10:26 by Maxi Guevara MD) Gastric ulcer (Acute) Upper GI bleed (Acute) Acute gastrointestinal bleeding (Acute) Acute anemia (Acute) Syncope (Acute) Diabetes mellitus (Acute) CAD (coronary artery disease) (Acute) HTN (hypertension) (Acute) Alzheimer's dementia (Acute) Abnormal nuclear stress test (Acute) Atrial fibrillation (Acute) NSTEMI (non-ST elevated myocardial infarction) (Acute) Varicose veins of right lower extremity with inflammation (Acute) Hyperglycemia (Acute) Wound of right foot (Acute) Cellulitis (Acute) JAMES (acute kidney injury) (Acute) Acute hyperglycemia (Acute) Past Medical History Medical History Trash foot Diabetic foot infection Heart failure with preserved ejection fraction HLD (hyperlipidemia) Diabetes mellitus Atrial fibrillation NSTEMI (non-ST elevated myocardial infarction) Alzheimer's dementia Kidney failure Diabetes HTN (hypertension) Family History Family History Father No problems noted. Mother No problems noted. Family history of problems with anesthesia: No Surgical History Surgical History No pertinent past surgical history History of Problems with Anesthesia: No Social History Social History Household Members: Family Housing: Apartment Do you presently have visiting nurse or other home services: No Alcohol intake: never Patient Tobacco Use Status: Never used Tobacco Smoked in Last 30 Days: No e-Cigarette/Vaping Use: Never Used Patient Interested in Nicotine Replacement: No Patient Given Instructions on How to Stop Smoking: No Second Hand Smoke Exposure: No Use of substances other than those prescribed or required for medical reasons: No Currently Displaying Signs/Symptoms of Drug Intoxication Withdrawal: No Any prior treatment program specific to substance use: No Have you been hit, kicked, punched, or otherwise hurt by someone within the past year? If so, by whom?: No Are you DNR?: No Advance Directives: Yes Advance Directives on File: Yes Advance Directives Date on File: 09/06/21 Do you have thoughts of harming others: None Do you have a plan to hurt others: No Plan Recently lost weight without trying: No Eating poorly because of decreased appetite: No Nutrition Risks: No Nutritional Risk Poor oral hygiene: No service: No Current occupational status: retired Meds Allergies Allergy/AdvReac Type Severity Reaction Status Date / Time No Known Allergies Allergy Verified 12/22/21 15:24 Active Medications: Current Medications Acetaminophen (Acetaminophen 325 Mg Tablet) 650 mg PO Q6H PRN PRN Reason: Pain, Mild (Pain Scale 1-3) Last Admin: 08/21/23 08:27 Dose: 650 mg Al Hydroxide/Mg Hydroxide (Magnesium Hydrox/Alum Hydrox 30 Ml Oral.Susp) 30 ml PO Q6H PRN PRN Reason: heart burn Last Admin: 08/20/23 18:12 Dose: 30 ml Benzocaine (Throat Lozenge, Medicated Lozenge) 1 lozenge MUCOUS MEM Q2H PRN PRN Reason: Sore Throat Dextrose (Dextrose 50 % 25 Gm/50 Ml Syringe) 25 gm IVPUSH Q15M PRN; Protocol PRN Reason: per Hypoglycemia Standing Ord. Glucose (Glucose Gel 15 Gm Gel..Gram.) 15 gm PO Q15M PRN; Protocol PRN Reason: per Hypoglycemia Standing Ord. Pantoprazole Sodium 80 mg/ (Sodium Chloride) 100 mls @ 10 mls/hr IV .Q10H REYNALDO Last Admin: 08/21/23 08:29 Dose: 8 mg/hr, 10 mls/hr Lactated Ringer's (Lr) 1,000 mls @ 100 mls/hr IVCONT .Q10H [facility] Insulin Glargine (Insulin Glargine,Hum.Rec.Anlog 100 Unit/Ml 10 Ml Vial) 10 unit SUBCUT BEDTIME [facility] Last Admin: 08/20/23 21:21 Dose: Not Given Insulin Human Lispro (Insulin Lispro 100 Unit/Ml 3 Ml Vial) 0 unit SUBCUT QIDACHS [facility]; Protocol Last Admin: 08/21/23 12:04 Dose: 8 unit Metoprolol Tartrate (Metoprolol Tartrate 25 Mg Tablet) 25 mg PO TID [facility]; Protocol Last Admin: 08/21/23 08:36 Dose: 25 mg Ondansetron HCl (Ondansetron Hcl 4 Mg/2 Ml Vial) 4 mg IVPUSH Q8H PRN PRN Reason: Nausea and Vomiting Sodium Chloride (0.9 % Sodium Chloride Flush 3 Ml Syringe) [facility] Last Admin: 08/21/23 08:30 Dose: 3 ml Home Medications Medication Instructions Recorded Confirmed Last Taken Type apixaban 5 mg tablet (Eliquis) 1 tab PO BID 09/05/21 08/17/23 10/17/21 History donepezil 10 mg tablet 1 tab PO QPM 09/05/21 08/17/23 10/16/21 History glimepiride 4 mg tablet 1 tab PO BID 09/05/21 08/17/23 10/17/21 History rzlztcpu-nqs-engla acid 0.4 1 tab PO DAILY 09/05/21 08/17/23 10/17/21 History mg-lycopene 300 mcg-lutein 250 mcg tablet ([employer] Senior) acetaminophen 500 mg tablet 1 tab PO Q6H PRN pain 10/07/21 08/17/23 10/17/21 History allopurinol 100 mg tablet 0.5 tab PO DAILY gout pain 10/07/21 08/17/23 10/17/21 History carboxymethylcellulose sodium 0.5 1 drp ophthalmic (eye) Q4-6H PRN 10/07/21 08/17/23 10/17/21 History % eye drops (Refresh Tears) Dry Eye(S) diphenhydramine HCl 25 mg tablet 0.5 tab PO BEDTIME PRN Insomnia 10/07/21 08/17/23 10/16/21 History (Banophen) gabapentin 600 mg tablet 1 tab PO BID 10/17/21 08/17/23 10/17/21 History insulin syringe-needle U-100 1 mL #10 ea 12/22/21 05/08/22 Unknown History 31 gauge x 04/10 bumetanide 1 mg tablet 1 mg PO DAILY@0900,1200 05/08/22 08/17/23 Unknown History magnesium oxide 250 mg PO DAILY 05/08/22 08/17/23 Unknown History memantine 10 mg tablet 10 mg PO BID 05/08/22 08/17/23 Unknown History metoprolol tartrate 100 mg tablet 100 mg PO BID 05/08/22 08/17/23 Unknown History amlodipine 5 mg tablet 5 mg PO QAM 08/17/23 08/17/23 Unknown History cetirizine 10 mg tablet 10 mg PO DAILY congestion 08/17/23 08/17/23 Unknown History citalopram 20 mg tablet 20 mg PO BEDTIME 08/17/23 08/17/23 Unknown History fluocinolone 0.01 % topical body 1 appl topical Q2W 08/17/23 08/17/23 Unknown History oil insulin NPH-regular 70-30 U-100 76 unit subcut BID 08/17/23 08/17/23 Unknown History insulin 100 unit/mL subcutaneous pen (Novolin 70-30 FlexPen U-100 Insulin) ketoconazole 2 % shampoo 1 appl topical Q2W 08/17/23 08/17/23 Unknown History triamcinolone acetonide 0.1 % 1 appl topical BID 08/17/23 08/17/23 Unknown History topical cream Exam Exam Date and Time: August 21, 2023 141 Height,Weight and Vital Signs: Height 5 ft 11 in Weight 120.7 kg Last Vital Signs Temp 97.4 F 08/21/23 11:09 Pulse 86 08/21/23 11:09 Resp 17 08/21/23 11:09 BP 149/83 H 08/21/23 11:09 Pulse Ox 94 08/21/23 11:09 O2 Del Method Room Air 08/21/23 11:09 O2 Flow Rate 1 08/19/23 16:00 Pertinent Lab Results Pertinent Lab Results: Laboratory Tests 08/17/23 08/17/23 08/17/23 10:15 10:40 10:44 WBC 9.9 RBC 3.23 L D Hgb 11.4 L D Hct 33.6 L D MCV 104.0 H MCH 35.3 H MCHC 33.9 RDW 12.5 Plt Count 207 MPV 11.8 Immature Gran % (Auto) 0.6 H Neut % (Auto) 60.6 Lymph % (Auto) 27.6 [place] % (Auto) 8.5 Eos % (Auto) 2.2 Baso % (Auto) 0.5 Lymph # (Auto) 2.7 [place] # (Auto) 0.8 Eos # (Auto) 0.2 Baso # (Auto) 0.1 Abs Immat Gran (auto) 0.06 H Absolute Neuts (auto) 6.0 Absolute Nucleated RBC 0.000 Nucleated RBC % (auto) 0.0 Smear Tech's Comments PT INR APTT VBG pH VBG pCO2 VBG pO2 VBG HCO3 VBG O2 Saturation VBG Base Excess Sodium 136 Potassium 5.1 Chloride 97 Carbon Dioxide 26 Anion Gap 18 BUN 47 H Creatinine 2.49 H Estim Creat Clear Calc 31.7 Estimated GFR 25 POC Glucose 248 H Random Glucose 374 H* Lactic Acid Lactic Acid F/U @ 2Hr Lactic Acid F/U @ 4Hr Calcium 8.0 L D Phosphorus Magnesium Total Bilirubin 0.6 AST 20 ALT 14 Alkaline Phosphatase 81 Total Creatine Kinase 54 Troponin I High Sens < 2.7 B-Natriuretic Peptide 147 H Total Protein 5.8 L Albumin 3.1 L Lipase 12 Urine Color Urine Appearance Urine pH Ur Specific [place] Urine Protein Urine Glucose (UA) Urine Ketones Urine Blood Urine Nitrite Ur Leukocyte Esterase Stool Occult Blood Urine Opiates Screen Urine Fentanyl Screen Ur Barbiturates Screen Ur Phencyclidine Scrn Ur Amphetamines Screen U Benzodiazepines Scrn Urine Cocaine Screen U Marijuana (THC) Screen Ethyl Alcohol < 10 COVID-19 (REMY) COVID-19 Clin Com Influenza Type A (STEPHANIE) Influenza Type B (STEPHANIE) Influenza A & B Note Blood Type Antibody Screen Crossmatch 08/17/23 08/17/23 08/17/23 10:45 10:49 11:16 WBC RBC Hgb Hct MCV MCH MCHC RDW Plt Count MPV Immature Gran % (Auto) Neut % (Auto) Lymph % (Auto) [place] % (Auto) Eos % (Auto) Baso % (Auto) Lymph # (Auto) [place] # (Auto) Eos # (Auto) Baso # (Auto) Abs Immat Gran (auto) Absolute Neuts (auto) Absolute Nucleated RBC Nucleated RBC % (auto) Smear Tech's Comments PT 16.0 H INR 1.3 H APTT 30.8 VBG pH 7.29 L VBG pCO2 58 VBG pO2 37 VBG HCO3 28 H VBG O2 Saturation 51.0 VBG Base Excess 1.0 Sodium Potassium Chloride Carbon Dioxide Anion Gap BUN Creatinine Estim Creat Clear Calc Estimated GFR POC Glucose Random Glucose Lactic Acid Lactic Acid F/U @ 2Hr Lactic Acid F/U @ 4Hr Calcium Phosphorus Magnesium Total Bilirubin AST ALT Alkaline Phosphatase Total Creatine Kinase Troponin I High Sens B-Natriuretic Peptide Total Protein Albumin Lipase Urine Color Urine Appearance Urine pH Ur Specific [place] Urine Protein Urine Glucose (UA) Urine Ketones Urine Blood Urine Nitrite Ur Leukocyte Esterase Stool Occult Blood Urine Opiates Screen Urine Fentanyl Screen Ur Barbiturates Screen Ur Phencyclidine Scrn Ur Amphetamines Screen U Benzodiazepines Scrn Urine Cocaine Screen U Marijuana (THC) Screen Ethyl Alcohol COVID-19 (REMY) Negative COVID-19 Clin Com See Note Influenza Type A (STEPHANIE) Negative Influenza Type B (STEPHANIE) Negative Influenza A & B Note See Note Blood Type Antibody Screen Crossmatch 08/17/23 08/17/23 08/17/23 11:58 12:18 13:28 WBC RBC Hgb Hct MCV MCH MCHC RDW Plt Count MPV Immature Gran % (Auto) Neut % (Auto) Lymph % (Auto) [place] % (Auto) Eos % (Auto) Baso % (Auto) Lymph # (Auto) [place] # (Auto) Eos # (Auto) Baso # (Auto) Abs Immat Gran (auto) Absolute Neuts (auto) Absolute Nucleated RBC Nucleated RBC % (auto) Smear Tech's Comments PT INR APTT VBG pH VBG pCO2 VBG pO2 VBG HCO3 VBG O2 Saturation VBG Base Excess Sodium Potassium Chloride Carbon Dioxide Anion Gap BUN Creatinine Estim Creat Clear Calc Estimated GFR POC Glucose Random Glucose Lactic Acid 3.9 H* Lactic Acid F/U @ 2Hr Lactic Acid F/U @ 4Hr Calcium Phosphorus Magnesium Total Bilirubin AST ALT Alkaline Phosphatase Total Creatine Kinase Troponin I High Sens B-Natriuretic Peptide Total Protein Albumin Lipase Urine Color Urine Appearance Urine pH Ur Specific [place] Urine Protein Urine Glucose (UA) Urine Ketones Urine Blood Urine Nitrite Ur Leukocyte Esterase Stool Occult Blood POSITIVE Urine Opiates Screen Urine Fentanyl Screen Ur Barbiturates Screen Ur Phencyclidine Scrn Ur Amphetamines Screen U Benzodiazepines Scrn Urine Cocaine Screen U Marijuana (THC) Screen Ethyl Alcohol COVID-19 (REMY) COVID-19 Clin Com Influenza Type A (STEPHANIE) Influenza Type B (STEPHANIE) Influenza A & B Note Blood Type A Positive Antibody Screen NEGATIVE Crossmatch See Detail 08/17/23 08/17/23 08/17/23 15:29 16:43 18:10 WBC 18.4 H RBC 3.73 L Hgb 12.7 L Hct 37.6 L MCV 101.9 H MCH 34.3 H MCHC 33.7 RDW 14.6 Plt Count 160 MPV 12.9 H Immature Gran % (Auto) 0.5 H Neut % (Auto) 85.7 H Lymph % (Auto) 6.2 L [place] % (Auto) 6.9 Eos % (Auto) 0.5 Baso % (Auto) 0.2 Lymph # (Auto) 1.1 L [place] # (Auto) 1.3 H Eos # (Auto) 0.1 Baso # (Auto) 0.0 Abs Immat Gran (auto) 0.10 H Absolute Neuts (auto) 15.7 H Absolute Nucleated RBC 0.000 Nucleated RBC % (auto) 0.0 Smear Tech's Comments PT INR APTT VBG pH VBG pCO2 VBG pO2 VBG HCO3 VBG O2 Saturation VBG Base Excess Sodium Potassium Chloride Carbon Dioxide Anion Gap BUN Creatinine Estim Creat Clear Calc Estimated GFR POC Glucose Random Glucose Lactic Acid Lactic Acid F/U @ 2Hr 2.3 H* Lactic Acid F/U @ 4Hr 2.2 H* Calcium Phosphorus Magnesium Total Bilirubin AST ALT Alkaline Phosphatase Total Creatine Kinase Troponin I High Sens B-Natriuretic Peptide Total Protein Albumin Lipase Urine Color Yellow Urine Appearance Clear Urine pH 5.0 Ur Specific [place] 1.015 Urine Protein Trace Urine Glucose (UA) Negative Urine Ketones Negative Urine Blood Negative Urine Nitrite Negative Ur Leukocyte Esterase Negative Stool Occult Blood Urine Opiates Screen Not Detected Urine Fentanyl Screen Not Detected Ur Barbiturates Screen Not Detected Ur Phencyclidine Scrn Not Detected Ur Amphetamines Screen Not Detected U Benzodiazepines Scrn Not Detected Urine Cocaine Screen Not Detected U Marijuana (THC) Screen Not Detected Ethyl Alcohol COVID-19 (REMY) COVID-19 Clin Com Influenza Type A (STEPHANIE) Influenza Type B (STEPHANIE) Influenza A & B Note Blood Type Antibody Screen Crossmatch 08/17/23 08/18/23 08/18/23 23:16 00:10 05:17 WBC 13.6 H 12.0 H RBC 3.97 L 3.74 L Hgb 13.3 L 12.6 L Hct 38.5 L 36.5 L MCV 97.0 97.6 MCH 33.5 H 33.7 H MCHC 34.5 34.5 RDW 15.3 15.4 Plt Count 145 L 141 L MPV 12.0 12.4 Immature Gran % (Auto) 0.6 H Neut % (Auto) 93.3 H Lymph % (Auto) 4.8 L [place] % (Auto) 1.2 L Eos % (Auto) 0.0 Baso % (Auto) 0.1 Lymph # (Auto) 0.6 L [place] # (Auto) 0.1 Eos # (Auto) 0.0 Baso # (Auto) 0.0 Abs Immat Gran (auto) 0.07 H Absolute Neuts (auto) 11.2 H Absolute Nucleated RBC 0.000 0.040 H Nucleated RBC % (auto) 0.0 0.3 H Smear Tech's Comments VERIFIED PT 13.3 INR 1.1 APTT VBG pH VBG pCO2 VBG pO2 VBG HCO3 VBG O2 Saturation VBG Base Excess Sodium 138 Potassium 4.6 Chloride 102 Carbon Dioxide 22 Anion Gap 19 BUN 69 H Creatinine 2.24 H Estim Creat Clear Calc 35.9 Estimated GFR 28 POC Glucose 346 H Random Glucose 410 H* Lactic Acid Lactic Acid F/U @ 2Hr Lactic Acid F/U @ 4Hr Calcium 8.1 L Phosphorus 3.1 Magnesium 1.9 Total Bilirubin 0.7 AST 19 ALT 16 Alkaline Phosphatase 78 Total Creatine Kinase Troponin I High Sens B-Natriuretic Peptide Total Protein 6.3 L Albumin 3.4 L Lipase Urine Color Urine Appearance Urine pH Ur Specific [place] Urine Protein Urine Glucose (UA) Urine Ketones Urine Blood Urine Nitrite Ur Leukocyte Esterase Stool Occult Blood Urine Opiates Screen Urine Fentanyl Screen Ur Barbiturates Screen Ur Phencyclidine Scrn Ur Amphetamines Screen U Benzodiazepines Scrn Urine Cocaine Screen U Marijuana (THC) Screen Ethyl Alcohol COVID-19 (REMY) COVID-19 Clin Com Influenza Type A (STEPHANIE) Influenza Type B (STEPHANIE) Influenza A & B Note Blood Type Antibody Screen Crossmatch 08/18/23 08/18/23 08/18/23 05:27 05:43 12:27 WBC RBC Hgb Hct MCV MCH MCHC RDW Plt Count MPV Immature Gran % (Auto) Neut % (Auto) Lymph % (Auto) [place] % (Auto) Eos % (Auto) Baso % (Auto) Lymph # (Auto) [place] # (Auto) Eos # (Auto) Baso # (Auto) Abs Immat Gran (auto) Absolute Neuts (auto) Absolute Nucleated RBC Nucleated RBC % (auto) Smear Tech's Comments PT INR APTT VBG pH 7.40 VBG pCO2 40 VBG pO2 53 VBG HCO3 25 VBG O2 Saturation 80.0 VBG Base Excess 0.6 Sodium Potassium Chloride Carbon Dioxide Anion Gap BUN Creatinine Estim Creat Clear Calc Estimated GFR POC Glucose 333 H 390 H* Random Glucose Lactic Acid Lactic Acid F/U @ 2Hr Lactic Acid F/U @ 4Hr Calcium Phosphorus Magnesium Total Bilirubin AST ALT Alkaline Phosphatase Total Creatine Kinase Troponin I High Sens B-Natriuretic Peptide Total Protein Albumin Lipase Urine Color Urine Appearance Urine pH Ur Specific [place] Urine Protein Urine Glucose (UA) Urine Ketones Urine Blood Urine Nitrite Ur Leukocyte Esterase Stool Occult Blood Urine Opiates Screen Urine Fentanyl Screen Ur Barbiturates Screen Ur Phencyclidine Scrn Ur Amphetamines Screen U Benzodiazepines Scrn Urine Cocaine Screen U Marijuana (THC) Screen Ethyl Alcohol COVID-19 (REMY) COVID-19 Clin Com Influenza Type A (STEPHANIE) Influenza Type B (STEPHANIE) Influenza A & B Note Blood Type Antibody Screen Crossmatch 08/18/23 08/18/23 08/18/23 15:52 20:51 23:52 WBC RBC Hgb Hct MCV MCH MCHC RDW Plt Count MPV Immature Gran % (Auto) Neut % (Auto) Lymph % (Auto) [place] % (Auto) Eos % (Auto) Baso % (Auto) Lymph # (Auto) [place] # (Auto) Eos # (Auto) Baso # (Auto) Abs Immat Gran (auto) Absolute Neuts (auto) Absolute Nucleated RBC Nucleated RBC % (auto) Smear Tech's Comments PT INR APTT VBG pH VBG pCO2 VBG pO2 VBG HCO3 VBG O2 Saturation VBG Base Excess Sodium Potassium Chloride Carbon Dioxide Anion Gap BUN Creatinine Estim Creat Clear Calc Estimated GFR POC Glucose 361 H* 345 H 367 H* Random Glucose Lactic Acid Lactic Acid F/U @ 2Hr Lactic Acid F/U @ 4Hr Calcium Phosphorus Magnesium Total Bilirubin AST ALT Alkaline Phosphatase Total Creatine Kinase Troponin I High Sens B-Natriuretic Peptide Total Protein Albumin Lipase Urine Color Urine Appearance Urine pH Ur Specific [place] Urine Protein Urine Glucose (UA) Urine Ketones Urine Blood Urine Nitrite Ur Leukocyte Esterase Stool Occult Blood Urine Opiates Screen Urine Fentanyl Screen Ur Barbiturates Screen Ur Phencyclidine Scrn Ur Amphetamines Screen U Benzodiazepines Scrn Urine Cocaine Screen U Marijuana (THC) Screen Ethyl Alcohol COVID-19 (REMY) COVID-19 Clin Com Influenza Type A (STEPHANIE) Influenza Type B (STEPHANIE) Influenza A & B Note Blood Type Antibody Screen Crossmatch 08/19/23 08/19/23 08/19/23 05:51 07:07 11:07 WBC 13.1 H RBC 3.66 L Hgb 12.1 L Hct 36.4 L MCV 99.5 H MCH 33.1 H MCHC 33.2 RDW 15.2 Plt Count 148 L MPV 12.4 Immature Gran % (Auto) 0.5 H Neut % (Auto) 80.5 H Lymph % (Auto) 9.4 L [place] % (Auto) 9.3 Eos % (Auto) 0.1 Baso % (Auto) 0.2 Lymph # (Auto) 1.2 [place] # (Auto) 1.2 Eos # (Auto) 0.0 Baso # (Auto) 0.0 Abs Immat Gran (auto) 0.07 H Absolute Neuts (auto) 10.5 H Absolute Nucleated RBC 0.000 Nucleated RBC % (auto) 0.0 Smear Tech's Comments PT 11.2 INR 0.9 APTT VBG pH VBG pCO2 VBG pO2 VBG HCO3 VBG O2 Saturation VBG Base Excess Sodium 140 Potassium 4.0 Chloride 103 Carbon Dioxide 22 Anion Gap 19 BUN 45 H Creatinine 1.70 H Estim Creat Clear Calc 47.3 Estimated GFR 39 POC Glucose 342 H 375 H* Random Glucose 346 H Lactic Acid Lactic Acid F/U @ 2Hr Lactic Acid F/U @ 4Hr Calcium 9.2 D Phosphorus Magnesium Total Bilirubin 0.9 AST 30 ALT 15 Alkaline Phosphatase 74 Total Creatine Kinase Troponin I High Sens B-Natriuretic Peptide Total Protein 6.5 Albumin 3.6 Lipase Urine Color Urine Appearance Urine pH Ur Specific [place] Urine Protein Urine Glucose (UA) Urine Ketones Urine Blood Urine Nitrite Ur Leukocyte Esterase Stool Occult Blood Urine Opiates Screen Urine Fentanyl Screen Ur Barbiturates Screen Ur Phencyclidine Scrn Ur Amphetamines Screen U Benzodiazepines Scrn Urine Cocaine Screen U Marijuana (THC) Screen Ethyl Alcohol COVID-19 (REMY) COVID-19 Clin Com Influenza Type A (STEPHANIE) Influenza Type B (STEPHANIE) Influenza A & B Note Blood Type Antibody Screen Crossmatch 08/19/23 08/19/23 08/20/23 15:49 19:48 06:54 WBC 13.2 H RBC 3.44 L Hgb 11.7 L Hct 34.1 L MCV 99.1 H MCH 34.0 H MCHC 34.3 RDW 15.2 Plt Count 146 L MPV 12.0 Immature Gran % (Auto) 0.5 H Neut % (Auto) 85.0 H Lymph % (Auto) 7.1 L [place] % (Auto) 7.1 Eos % (Auto) 0.1 Baso % (Auto) 0.2 Lymph # (Auto) 0.9 L [place] # (Auto) 0.9 Eos # (Auto) 0.0 Baso # (Auto) 0.0 Abs Immat Gran (auto) 0.07 H Absolute Neuts (auto) 11.2 H Absolute Nucleated RBC 0.000 Nucleated RBC % (auto) 0.0 Smear Tech's Comments PT 11.6 INR 1.0 APTT VBG pH VBG pCO2 VBG pO2 VBG HCO3 VBG O2 Saturation VBG Base Excess Sodium 138 Potassium 4.3 Chloride 101 Carbon Dioxide 22 Anion Gap 19 BUN 33 H Creatinine 1.49 H Estim Creat Clear Calc 54.0 Estimated GFR 46 POC Glucose 342 H 297 H Random Glucose 330 H Lactic Acid Lactic Acid F/U @ 2Hr Lactic Acid F/U @ 4Hr Calcium 8.7 Phosphorus Magnesium Total Bilirubin 1.0 AST 40 H ALT 16 Alkaline Phosphatase 76 Total Creatine Kinase Troponin I High Sens B-Natriuretic Peptide Total Protein 6.4 L Albumin 3.5 Lipase Urine Color Urine Appearance Urine pH Ur Specific [place] Urine Protein Urine Glucose (UA) Urine Ketones Urine Blood Urine Nitrite Ur Leukocyte Esterase Stool Occult Blood Urine Opiates Screen Urine Fentanyl Screen Ur Barbiturates Screen Ur Phencyclidine Scrn Ur Amphetamines Screen U Benzodiazepines Scrn Urine Cocaine Screen U Marijuana (THC) Screen Ethyl Alcohol COVID-19 (REMY) COVID-19 Clin Com Influenza Type A (STEPHANIE) Influenza Type B (STEPHANIE) Influenza A & B Note Blood Type A Positive Antibody Screen NEGATIVE Crossmatch 08/20/23 08/20/23 08/20/23 07:23 11:09 16:34 WBC RBC Hgb Hct MCV MCH MCHC RDW Plt Count MPV Immature Gran % (Auto) Neut % (Auto) Lymph % (Auto) [place] % (Auto) Eos % (Auto) Baso % (Auto) Lymph # (Auto) [place] # (Auto) Eos # (Auto) Baso # (Auto) Abs Immat Gran (auto) Absolute Neuts (auto) Absolute Nucleated RBC Nucleated RBC % (auto) Smear Tech's Comments PT INR APTT VBG pH VBG pCO2 VBG pO2 VBG HCO3 VBG O2 Saturation VBG Base Excess Sodium Potassium Chloride Carbon Dioxide Anion Gap BUN Creatinine Estim Creat Clear Calc Estimated GFR POC Glucose 322 H 329 H 288 H Random Glucose Lactic Acid Lactic Acid F/U @ 2Hr Lactic Acid F/U @ 4Hr Calcium Phosphorus Magnesium Total Bilirubin AST ALT Alkaline Phosphatase Total Creatine Kinase Troponin I High Sens B-Natriuretic Peptide Total Protein Albumin Lipase Urine Color Urine Appearance Urine pH Ur Specific [place] Urine Protein Urine Glucose (UA) Urine Ketones Urine Blood Urine Nitrite Ur Leukocyte Esterase Stool Occult Blood Urine Opiates Screen Urine Fentanyl Screen Ur Barbiturates Screen Ur Phencyclidine Scrn Ur Amphetamines Screen U Benzodiazepines Scrn Urine Cocaine Screen U Marijuana (THC) Screen Ethyl Alcohol COVID-19 (REMY) COVID-19 Clin Com Influenza Type A (STEPHANIE) Influenza Type B (STEPHANIE) Influenza A & B Note Blood Type Antibody Screen Crossmatch 08/20/23 08/21/23 08/21/23 19:45 05:56 07:33 WBC 12.3 H RBC 3.49 L Hgb 11.8 L Hct 34.7 L MCV 99.4 H MCH 33.8 H MCHC 34.0 RDW 14.9 Plt Count 141 L MPV 12.5 H Immature Gran % (Auto) Neut % (Auto) Lymph % (Auto) [place] % (Auto) Eos % (Auto) Baso % (Auto) Lymph # (Auto) [place] # (Auto) Eos # (Auto) Baso # (Auto) Abs Immat Gran (auto) Absolute Neuts (auto) Absolute Nucleated RBC 0.000 Nucleated RBC % (auto) 0.0 Smear Tech's Comments PT INR APTT VBG pH VBG pCO2 VBG pO2 VBG HCO3 VBG O2 Saturation VBG Base Excess Sodium Potassium Chloride Carbon Dioxide Anion Gap BUN Creatinine Estim Creat Clear Calc Estimated GFR POC Glucose 272 H 322 H Random Glucose Lactic Acid Lactic Acid F/U @ 2Hr Lactic Acid F/U @ 4Hr Calcium Phosphorus Magnesium Total Bilirubin AST ALT Alkaline Phosphatase Total Creatine Kinase Troponin I High Sens B-Natriuretic Peptide Total Protein Albumin Lipase Urine Color Urine Appearance Urine pH Ur Specific [place] Urine Protein Urine Glucose (UA) Urine Ketones Urine Blood Urine Nitrite Ur Leukocyte Esterase Stool Occult Blood Urine Opiates Screen Urine Fentanyl Screen Ur Barbiturates Screen Ur Phencyclidine Scrn Ur Amphetamines Screen U Benzodiazepines Scrn Urine Cocaine Screen U Marijuana (THC) Screen Ethyl Alcohol COVID-19 (REMY) COVID-19 Clin Com Influenza Type A (STEPHANIE) Influenza Type B (STEPHANIE) Influenza A & B Note Blood Type Antibody Screen Crossmatch 08/21/23 08/21/23 11:40 13:32 WBC RBC Hgb Hct MCV MCH MCHC RDW Plt Count MPV Immature Gran % (Auto) Neut % (Auto) Lymph % (Auto) [place] % (Auto) Eos % (Auto) Baso % (Auto) Lymph # (Auto) [place] # (Auto) Eos # (Auto) Baso # (Auto) Abs Immat Gran (auto) Absolute Neuts (auto) Absolute Nucleated RBC Nucleated RBC % (auto) Smear Tech's Comments PT INR APTT VBG pH VBG pCO2 VBG pO2 VBG HCO3 VBG O2 Saturation VBG Base Excess Sodium Potassium Chloride Carbon Dioxide Anion Gap BUN Creatinine Estim Creat Clear Calc Estimated GFR POC Glucose 349 H 280 H Random Glucose Lactic Acid Lactic Acid F/U @ 2Hr Lactic Acid F/U @ 4Hr Calcium Phosphorus Magnesium Total Bilirubin AST ALT Alkaline Phosphatase Total Creatine Kinase Troponin I High Sens B-Natriuretic Peptide Total Protein Albumin Lipase Urine Color Urine Appearance Urine pH Ur Specific [place] Urine Protein Urine Glucose (UA) Urine Ketones Urine Blood Urine Nitrite Ur Leukocyte Esterase Stool Occult Blood Urine Opiates Screen Urine Fentanyl Screen Ur Barbiturates Screen Ur Phencyclidine Scrn Ur Amphetamines Screen U Benzodiazepines Scrn Urine Cocaine Screen U Marijuana (THC) Screen Ethyl Alcohol COVID-19 (REMY) COVID-19 Clin Com Influenza Type A (STEPHANIE) Influenza Type B (STEPHANIE) Influenza A & B Note Blood Type Antibody Screen Crossmatch Airway Mallampati Class: II TM Dist: <=3cm Neck ROM: Limited Lungs: cta Assessment and Plan Assessment Anesthesia Assessment: Anesthesia Plan Discussed and Chart Reviewed Final Anesthetic Review Family History of Problems with Anesthesia: No History of Problems with Anesthesia: No ASA Class: IV Final Preanesthetic Review: No Changes in Pt Med Stat, Meds/Allgs Chart Reviewed, Consent Obtained/Reviewed and Anes Risks/Benef Reviewed Patient Risk: Intermediate Procedure Risk: Intermediate Anesthetic Plan Anesthetic Plan: MAC: Disposition: Standard PACU
--- NOTE | 2023-08-21 14:20 | MHC.SHP ---
Pre-Procedural Eval Section A Date of Service: 08/21/23 The patient is an INPATIENT: Yes The History & Physical has been completed within 30 days and I have reviewed it.: Yes Section B Chief Complaint: GIB Allergies: Allergies Allergy/AdvReac Type Severity Reaction Status Date / Time No Known Allergies Allergy Verified 12/22/21 15:24 Plan Diagnosis/Plan: Unchanged I have reviewed the history and physical and performed a pertinent physical examination on my patient. No changes have occurred unless specified. Time Spent With Patient Time: Total time managing care of this patient today ____ minutes.
--- NOTE | 2023-08-21 14:21 | W.PM.OPN ---
Operative Note Operative Note Date of Service: 08/21/23 Narrative: Procedure Description: EGD Indication: follow up EGD to reassess for bleeding and non visualized areas on the first EGD Anesthesia: MAC FLEXIBLE TRANSORAL UPPER GASTROINTESTINAL ENDOSCOPY UPPER ENDOSCOPY Consent: Indications for the procedure and potential complications of bleeding, perforation, reaction to medications and missed diagnosis were discussed with the patient and informed consent was obtained. Instrument: Olympus GIF H 190 J mid size upper endoscope Monitoring: Vital signs and clinical assessment, continuous EKG monitoring, Pulse oximetry, Carbon Dioxide monitoring and blood pressure monitoring were done throughout the procedure. Procedure: The patient was placed in the left lateral decubitis position and pre-procedure medications were administered and a bite block was placed. The endoscope was inserted into the mouth and advanced under direct vision to the third part of duodenum. A careful inspection was made as the upper endoscope was withdrawn including a retroflexed examination of the proximal stomach; Findings and interventions are described below. Findings: Larynx:normal Esophagus: GE junction at 45 cm, diaphragm hiatus at 45 cm, no varices Stomach: Patchy gastric erythema with granular mucosa. Biopsies were obtained for H pylori. Grade 2 flap valve on retroflexed examination of the cardia. OTC clip from prior EGD noted, no bleeding noted but surrounding erythema. Duodenum: Normal bulb and descending duodenum, Intervention: Biopsies as noted above Impression/Findings: no active bleeding gastritis clip over ulcer, PLAN: add carafate 1 g QID for 1 week, cont with high dose PPI restart eliquis in 48 hours, if re bleeds consider risk -benefit ratio and d/c'ing eliquis if h pylori pos then treat o/p GI f/u ok to eat regular diet today
--- NOTE | 2023-08-21 15:44 | HO.PM.IMPN ---
Subjective Subjective Date of Service: 08/21/23 Interval History: Patient resting comfortably, offers no acute complaints history obtained via associate director career services, son at bedside concern the patient looks short of breath to him and also noted to have elevated blood sugars, no recurrent GI bleed overnight, remains hemodynamically stable, no chest pain, no palpitations, is NPO for repeat upper endoscopy this afternoon blood sugar to 220. Review of Systems All other system reviewed and negative Physical Exam Vital Signs: Vital Signs: Last Vital Signs Temp 97 F 08/21/23 14:50 Pulse 78 08/21/23 15:20 Resp 16 08/21/23 15:20 BP 118/73 08/21/23 15:20 Pulse Ox 98 08/21/23 15:20 O2 Del Method Nasal Cannula 08/21/23 15:20 O2 Flow Rate 2 08/21/23 15:20 BMI result Body Mass Index 37.1 Const: Other: General awake alert, resting comfortably in no acute distress. Neck supple, no JVD. CVS regular rate rhythm, Respiratory lungs clear to auscultation, no respiratory distress, no wheeze, no rhonchi. Gastrointestinal abdomen soft, distended, nontender, bowel sounds audible, no guarding , no rigidity. Extremities no edema. Neuro non focal Skin no rash Objective Data Active Medications Acetaminophen (Acetaminophen 325 Mg Tablet) 650 mg PO Q6H PRN PRN Reason: Pain, Mild (Pain Scale 1-3) Last Admin: 08/21/23 08:27 Dose: 650 mg Documented By: JAIRO Al Hydroxide/Mg Hydroxide (Magnesium Hydrox/Alum Hydrox 30 Ml Oral.Susp) 30 ml PO Q6H PRN PRN Reason: heart burn Last Admin: 08/20/23 18:12 Dose: 30 ml Documented By: SIA Benzocaine (Throat Lozenge, Medicated Lozenge) 1 lozenge MUCOUS MEM Q2H PRN PRN Reason: Sore Throat Dextrose (Dextrose 50 % 25 Gm/50 Ml Syringe) 25 gm IVPUSH Q15M PRN; Protocol PRN Reason: per Hypoglycemia Standing Ord. Glucose (Glucose Gel 15 Gm Gel..Gram.) 15 gm PO Q15M PRN; Protocol PRN Reason: per Hypoglycemia Standing Ord. Pantoprazole Sodium 80 mg/ (Sodium Chloride) 100 mls @ 10 mls/hr IV .Q10H [facility] Last Admin: 08/21/23 08:29 Dose: 8 mg/hr, 10 mls/hr Documented By: JAIRO Lactated Ringer's (Lr) 1,000 mls @ 100 mls/hr IVCONT .Q10H REPLACED BY [facility] Insulin Glargine (Insulin Glargine,Hum.Rec.Anlog 100 Unit/Ml 10 Ml Vial) 10 unit SUBCUT BEDTIME REPLACED BY [facility] Last Admin: 08/20/23 21:21 Dose: Not Given Documented By: JUANA Non-Admin Reason: NPO midnight. Held per Insulin Human Lispro (Insulin Lispro 100 Unit/Ml 3 Ml Vial) 0 unit SUBCUT QIDACHS REPLACED BY [facility]; Protocol Last Admin: 08/21/23 12:04 Dose: 8 unit Documented By: JAIRO Comments: given per Metoprolol Tartrate (Metoprolol Tartrate 25 Mg Tablet) 25 mg PO TID REPLACED BY [facility]; Protocol Last Admin: 08/21/23 08:36 Dose: 25 mg Documented By: JAIRO Ondansetron HCl (Ondansetron Hcl 4 Mg/2 Ml Vial) 4 mg IVPUSH Q8H PRN PRN Reason: Nausea and Vomiting Sodium Chloride (0.9 % Sodium Chloride Flush 3 Ml Syringe) 3 ml IVFLUSH QSHIFT REPLACED BY [facility] Last Admin: 08/21/23 08:30 Dose: 3 ml Documented By: JAIRO Labs 08/21/23 05:56 08/20/23 06:54 Labs: Laboratory Results - last 24 hr 08/20/23 08/20/23 08/21/23 16:34 19:45 05:56 MCV 99.4 H MCH 33.8 H MCHC 34.0 RDW 14.9 Plt Count 141 L MPV 12.5 H Absolute Nucleated RBC 0.000 Nucleated RBC % (auto) 0.0 POC Glucose 288 H 272 H 08/21/23 08/21/23 08/21/23 07:33 11:40 13:32 MCV MCH MCHC RDW Plt Count MPV Absolute Nucleated RBC Nucleated RBC % (auto) POC Glucose 322 H 349 H 280 H Assessment and Plan (1) Upper GI bleed: Status: Acute (2) Atrial fibrillation: Status: Acute Plan 78-year-old male with history of atrial fibrillation on Eliquis, Alzheimer's dementia, diabetes, HFpEF , CAD presents with several stools of maroon foul-smelling stool. (Heme-positive). In the emergency room given Kcentra along with PRBCs x2. Current hemodynamically stable with sats maintained at 3 liters/minute. Given 1 dose of IV pantoprazole. Volume resuscitation with saline completed. 1.Upper GI bleed -denies abdominal pain , hematocrit is stable -repeat endoscopy showed no active bleeding,gastritis,clip over ulcer, GI recommend carafate 1 g QID for 1 week, high dose PPI,restart eliquis in 48 hours, if re bleeds consider risk -benefit ratio and d/c'ing eliquis ,if h pylori pos then treat, o/p GI f/u Will resume diabetic diet 2. Atrial fibrillation -continue metoprolol , stable heart rate -last echo 2020 demonstrates LVEF 55-60% -Eliquis on hold secondary to above - IV Lopressor as needed to control heart rate 3. CKD 3 -creatinine appears at baseline -avoid nephrotoxic agents 4.DMII -elevated blood sugars , in 200-300 range will increase dose of insulin sliding scale, and placed back on Lantus 20 units at bedtime 5. Obesity recommended low-calorie diet Full code Pneumatics Patient need continued inpatient hospitalization for closed GI monitoring after repeat endoscopy Time Spent With Patient Time: Total time managing care of this patient today ____ minutes. Quality Stroke Does the patient have a stroke diagnosis?: No VTE Prior VTE?: No VTE Risk Level:: Medical - moderate - high VTE Device Contraindication: N/A - Device Ordered VTE Drug Contraindication: Treatment Not Indicated
[2023-08-21] MEDS: Magnesium Hydrox/Alum Hydrox 30 ML ORAL.SUSP PO (16:00)
[2023-08-21 16:32] LABS: Glucose, Whole Blood 332 mg/dL (60-115)
[2023-08-21] MEDS: Lactated Ringers 1,000 ML 100 ML IVCONT (17:02)
[2023-08-21] MEDS: Omeprazole 40 MG CAPSULE.DR PO (17:03)
[2023-08-21] MEDS: Sucralfate 1 GM TABLET PO ×2 (17:23→20:51)
[2023-08-21 19:52] LABS: Glucose, Whole Blood 343 mg/dL (60-115)
[2023-08-21] MEDS: Insulin Glargine,Hum.rec.anlog 100 UNIT/ML 10 ML VIAL 20 UNIT SUBCUT (20:52)
[2023-08-22] VITALS (8 sets, daily range): BP systolic 115–169; BP diastolic 62–91; PULSE 64–103; RESP 18–24; TEMP 36.2–37.6; O2SAT 90–95
--- NOTE | 2023-08-22 00:57 | PC.NURSE ---
Assumed care of patient 19:00 (08/21). [place] speaking only. Merchandising Representative utilized. See biophysical assessment and EMAR for full details. Bed alarm on, in room camera and safety measures in place. Handoff report given 23:15.
[2023-08-22] MEDS: Lactated Ringers 1,000 ML 100 ML IVCONT (01:29)
[2023-08-22] MEDS: Omeprazole 40 MG CAPSULE.DR PO ×2 (04:45→16:31)
[2023-08-22 07:33] LABS: Hematocrit 33.2 % (42.0-52.0); Hemoglobin 11.2 g/dl (14.0-18.0); Mean Corpuscular HGB Conc 33.7 g/dl (31.0-36.0); Mean Corpuscular Hemoglobin 33.5 pg (27.0-33.0); Mean Corpuscular Volume 99.4 fL (80.0-98.0); Mean Platelet Volume 12.5 fL (9.4-12.4); Platelet Count 150 X10*3/uL (160-400); Red Blood Count 3.34 X10*6/uL (4.60-5.80); Red Cell Distribution Width 14.9 % (11.0-16.0); White Blood Count 13.3 X10*3/uL (4.8-10.8)
[2023-08-22 07:49] LABS: Glucose, Whole Blood 244 mg/dL (60-115)
[2023-08-22] MEDS: Furosemide 100 MG/10 ML VIAL 60 MG IVPUSH (08:10)
[2023-08-22] MEDS: Sucralfate 1 GM TABLET PO ×4 (08:11→21:38)
[2023-08-22] MEDS: Insulin Lispro 100 UNIT/ML 3 ML VIAL SUBCUT ×4 (08:11→21:51)
[2023-08-22] MEDS: amLODIPine Besylate 5 MG TABLET PO (08:11)
[2023-08-22] MEDS: Metoprolol Tartrate 100 MG TABLET PO ×2 (08:11→21:39)
[2023-08-22] MEDS: 0.9 % Sodium Chloride Flush 3 ML SYRINGE IVFLUSH ×2 (08:37→16:38)
[2023-08-22 11:15] LABS: Glucose, Whole Blood 304 mg/dL (60-115)
--- NOTE | 2023-08-22 12:42 | HO.POSTANES ---
Post Anesthesia Evaluation Post Anesthesia Evaluation Date of Service: 08/22/23 Vital Signs: Vital Signs Temp Pulse Resp BP Pulse Ox O2 Del Method O2 Flow Rate 08/22/23 11:25 99.1 F 94 18 148/80 H 92 Room Air 08/22/23 07:41 99.6 F 64 24 H 131/91 H 95 Nasal Cannula 2 08/22/23 03:27 97.7 F 103 H 20 169/85 H 92 Nasal Cannula 2 Anesthesia: Monitored Mental Status: Awake Pain Control: Satisfactory Nausea/Vomiting: None Hydration: Adequate Anesthesia-Related Issues: No Anes. Related Issues
[2023-08-22] MEDS: Magnesium Hydrox/Alum Hydrox 30 ML ORAL.SUSP PO (12:45)
--- NOTE | 2023-08-22 14:15 | MHC.CM.PN ---
PT is recommending STR for pt. This CM met with pt, and son/HCP with staff respiratory therapist to discuss STR/preferences. Pts son is agreeable for STR, he would like to stay in the [place] area if possible, and avoid [place] (due to his [id number] passing while there). CM will continue to follow.
[2023-08-22 16:18] LABS: Glucose, Whole Blood 389 mg/dL (60-115)
--- NOTE | 2023-08-22 16:23 | HO.PM.IMPN ---
Subjective Subjective Date of Service: 08/22/23 Interval History: History obtained via conference interpreter patient resting comfortably denies chest pain, no palpitation although noted to have mild tachypnea vital stable, tolerating diet with no nausea no vomiting no abdominal pain [place] catheter in place, no recurrent GI bleeding noted. Review of Systems All other system reviewed and negative Physical Exam Vital Signs: Vital Signs: Last Vital Signs Temp 97.6 F 08/22/23 16:00 Pulse 72 08/22/23 16:00 Resp 19 08/22/23 16:00 BP 147/74 H 08/22/23 16:00 Pulse Ox 90 L 08/22/23 16:00 O2 Del Method Room Air 08/22/23 16:00 O2 Flow Rate 2 08/22/23 07:41 BMI result Body Mass Index 37.1 Const: Other: General awake alert, resting comfortably in no acute distress. Neck supple, no JVD. CVS regular rate rhythm, Respiratory lungs bilateral expiratory wheeze , no respiratory distress, question baseline use of abdominal muscles for breathing. Gastrointestinal abdomen soft, distended, nontender, bowel sounds audible, no guarding , no rigidity. Extremities no edema. Neuro non focal Skin no rash Objective Data Active Medications Acetaminophen (Acetaminophen 325 Mg Tablet) 650 mg PO Q6H PRN PRN Reason: Pain, Mild (Pain Scale 1-3) Last Admin: 08/21/23 21:00 Dose: 650 mg Documented By: JUANA Al Hydroxide/Mg Hydroxide (Magnesium Hydrox/Alum Hydrox 30 Ml Oral.Susp) 30 ml PO Q6H PRN PRN Reason: heart burn Last Admin: 08/22/23 12:45 Dose: 30 ml Documented By: JAIRO Amlodipine Besylate (Amlodipine Besylate 5 Mg Tablet) 5 mg PO DAILY [facility]; Protocol Last Admin: 08/22/23 08:11 Dose: 5 mg Documented By: JAIRO Atorvastatin Calcium (Atorvastatin Calcium 40 Mg Tablet) 40 mg PO BEDTIME [facility] Benzocaine (Throat Lozenge, Medicated Lozenge) 1 lozenge MUCOUS MEM Q2H PRN PRN Reason: Sore Throat Bumetanide (Bumetanide 1 Mg Tablet) 1 mg PO DAILY@0900,1200 [facility]; Protocol Dextrose (Dextrose 50 % 25 Gm/50 Ml Syringe) 25 gm IVPUSH Q15M PRN; Protocol PRN Reason: per Hypoglycemia Standing Ord. Donepezil HCl (Donepezil Hcl 10 Mg Tablet) 10 mg PO BEDTIME [facility] Escitalopram Oxalate (Escitalopram Oxalate 10 Mg Tablet) 10 mg PO BEDTIME [facility] Gabapentin (Gabapentin 600 Mg Tablet) 600 mg PO BID [facility] Glucose (Glucose Gel 15 Gm Gel..Gram.) 15 gm PO Q15M PRN; Protocol PRN Reason: per Hypoglycemia Standing Ord. Insulin Glargine (Insulin Glargine,Hum.Rec.Anlog 100 Unit/Ml 10 Ml Vial) 20 unit SUBCUT BEDTIME [facility] Last Admin: 08/21/23 20:52 Dose: 20 unit Documented By: JUANA Insulin Human Lispro (Insulin Lispro 100 Unit/Ml 3 Ml Vial) 0 unit SUBCUT QIDAS [facility]; Protocol Last Admin: 08/22/23 12:42 Dose: 12 unit Documented By: JAIRO Metoprolol Tartrate (Metoprolol Tartrate 100 Mg Tablet) 100 mg PO BID [facility]; Protocol Last Admin: 08/22/23 08:11 Dose: 100 mg Documented By: JAIRO Omeprazole (Omeprazole 40 Mg Capsule.) 40 mg PO BID@0630,1630 [facility] Last Admin: 08/22/23 04:45 Dose: 40 mg Documented By: MANUEL Ondansetron HCl (Ondansetron Hcl 4 Mg/2 Ml Vial) 4 mg IVPUSH Q8H PRN PRN Reason: Nausea and Vomiting Sodium Chloride (0.9 % Sodium Chloride Flush 3 Ml Syringe) [facility] Last Admin: 08/22/23 08:37 Dose: 3 ml Documented By: JAIRO Sucralfate (Sucralfate 1 Gm Tablet) 1 gm PO QIDACHS [facility] Last Admin: 08/22/23 12:43 Dose: 1 gm Documented By: JAIRO Labs 08/22/23 06:32 08/20/23 06:54 Labs: Laboratory Results - last 24 hr 08/21/23 08/21/23 08/22/23 16:28 19:48 06:32 MCV 99.4 H MCH 33.5 H MCHC 33.7 RDW 14.9 Plt Count 150 L MPV 12.5 H Absolute Nucleated RBC 0.000 Nucleated RBC % (auto) 0.0 POC Glucose 332 H 343 H Hold Green Top See Note 08/22/23 08/22/23 08/22/23 07:45 11:11 16:13 MCV MCH MCHC RDW Plt Count MPV Absolute Nucleated RBC Nucleated RBC % (auto) POC Glucose 244 H 304 H 389 H* Hold Green Top Assessment and Plan (1) Upper GI bleed: Status: Acute (2) Atrial fibrillation: Status: Acute Plan 78-year-old male with history of atrial fibrillation on Eliquis, Alzheimer's dementia, diabetes, HFpEF , CAD presents with several stools of maroon foul-smelling stool. (Heme-positive). In the emergency room given Kcentra along with PRBCs x2. Current hemodynamically stable with sats maintained at 3 liters/minute. Given 1 dose of IV pantoprazole. Volume resuscitation with saline completed. 1.Upper GI bleed -denies abdominal pain , hematocrit is stable -repeat endoscopy showed no active bleeding,gastritis,clip over ulcer, GI recommend carafate 1 g QID for 1 week, high dose PPI,restart eliquis in 48 hours,( start 08/23) if re bleeds consider risk -benefit ratio and d/c'ing eliquis ,if h pylori pos then treat, o/p GI f/u on diabetic diet 2. Atrial fibrillation -continue metoprolol 100 mg b.i.d. , stable heart rate -last echo 2020 demonstrates LVEF 55-60% -Eliquis on hold secondary to above 3. CKD 3 -creatinine appears at baseline -avoid nephrotoxic agents 4.DMII -elevated blood sugars , in 200-300 range will increase dose of insulin sliding scale, and placed back on Lantus 20 units at bedtime 5. Obesity recommended low-calorie diet 6. Acute on chronic heart failure with preserved EF noted to have fluid overload this morning with bilateral wheeze, no JVD, no leg edema treated with 1 dose of IV Lasix with good response continue home dose of Bumex 1 mg b.i.d. DC IV fluids, stable oxygenation 93% on room air 7. Mood order/Alzheimer's dementia continue Aricept and Lexapro Full code Pneumatics Disposition patient was noted to weak with transfers therefore PT eval obtained, patient lives at home with some Patient need continued inpatient hospitalization for closed GI monitoring after repeat endoscopy and monitoring of respiratory status Time Spent With Patient Time: Total time managing care of this patient today ____ minutes. Quality Stroke Does the patient have a stroke diagnosis?: No VTE Prior VTE?: No VTE Risk Level:: Medical - moderate - high VTE Device Contraindication: N/A - Device Ordered VTE Drug Contraindication: Treatment Not Indicated
[2023-08-22] MEDS: Acetaminophen 325 MG TABLET 650 MG PO (16:31)
[2023-08-22] MEDS: Bumetanide 1 MG TABLET PO (16:38)
[2023-08-22 19:39] LABS: Glucose, Whole Blood 299 mg/dL (60-115)
[2023-08-22] MEDS: Donepezil HCl 10 MG TABLET PO (21:38)
[2023-08-22] MEDS: Gabapentin 600 MG TABLET PO (21:38)
[2023-08-22] MEDS: Atorvastatin Calcium 40 MG TABLET PO (21:38)
[2023-08-22] MEDS: Escitalopram Oxalate 10 MG TABLET PO (21:39)
[2023-08-22 21:41] LABS: Glucose, Whole Blood 282 mg/dL (60-115)
[2023-08-22] MEDS: Insulin Glargine,Hum.rec.anlog 100 UNIT/ML 10 ML VIAL 20 UNIT SUBCUT (21:52)
[2023-08-23 03:31] VITALS: BP 137/74; PULSE 75; RESP 20; TEMP 36.2; O2SAT 92
[2023-08-23] MEDS: Omeprazole 40 MG CAPSULE.DR PO ×2 (06:14→17:15)
[2023-08-23] MEDS: 0.9 % Sodium Chloride Flush 3 ML SYRINGE IVFLUSH ×4 (06:15→21:59)
[2023-08-23 07:16] LABS: Hematocrit 34.7 % (42.0-52.0); Hemoglobin 11.9 g/dl (14.0-18.0); Mean Corpuscular HGB Conc 34.3 g/dl (31.0-36.0); Mean Corpuscular Hemoglobin 33.7 pg (27.0-33.0); Mean Corpuscular Volume 98.3 fL (80.0-98.0); Mean Platelet Volume 12.3 fL (9.4-12.4); Platelet Count 131 X10*3/uL (160-400); Red Blood Count 3.53 X10*6/uL (4.60-5.80); White Blood Count 10.6 X10*3/uL (4.8-10.8)
[2023-08-23 07:17] VITALS: BP 128/69; PULSE 88; RESP 18; TEMP 36.3; O2SAT 96
[2023-08-23 07:24] LABS: Glucose, Whole Blood 243 mg/dL (60-115)
[2023-08-23 07:34] LABS: Anion Gap 14 (12-20); Blood Urea Nitrogen 23 mg/dL (9-16); Calcium 8.6 mg/dL (8.4-10.2); Carbon Dioxide 27 mmol/L (22-29); Chloride 96 mmol/L (96-108); Creatinine Clr Calc Pharmacy 58.7; Estimated Glomerular Filt Rate 50; Glucose Random 238 mg/dL (60-115); Potassium 4.2 mmol/L (3.3-5.1); Sodium 133 mmol/L (135-145)
[2023-08-23] MEDS: Insulin Lispro 100 UNIT/ML 3 ML VIAL SUBCUT ×4 (08:30→21:59)
[2023-08-23] MEDS: amLODIPine Besylate 5 MG TABLET PO (08:30)
[2023-08-23] MEDS: Metoprolol Tartrate 100 MG TABLET PO ×2 (08:30→21:59)
[2023-08-23] MEDS: Gabapentin 600 MG TABLET PO ×2 (08:30→21:59)
[2023-08-23] MEDS: Sucralfate 1 GM TABLET PO ×4 (08:30→21:59)
[2023-08-23] MEDS: Bumetanide 1 MG TABLET PO ×2 (08:31→11:40)
[2023-08-23 11:16] VITALS: BP 141/79; PULSE 82; RESP 18; TEMP 36.9; O2SAT 96
[2023-08-23 11:28] LABS: Glucose, Whole Blood 333 mg/dL (60-115)
--- NOTE | 2023-08-23 13:57 | MHC.CM.PN ---
EMR reviewed and per MD rounds, pt is medically cleared for D/C to STR. No bed offers at this time, and [facility]. Will continue to seek STR bed for pt.
--- NOTE | 2023-08-23 14:06 | P.PNIM_ITS ---
Subjective Subjective Date of Service: 08/23/23 Interval History: seen and examined this morning history obtained with assistance of american sign language interpreter patient awake, alert - with no specific complaints Review of Systems Review of Systems: Yes all other systems are reviewed and are negative Constitutional Constitutional: Denies fever(s) Cardiovascular Cardiovascular: Denies chest pain and Denies dyspnea Respiratory Respiratory: Denies dyspnea Gastrointestinal Gastrointestinal: Denies abdominal pain Physical Exam 2 Vital Signs: Vital Signs: Last Vital Signs Temp 98.4 F 08/23/23 11:16 Pulse 82 08/23/23 11:16 Resp 18 08/23/23 11:16 BP 141/79 H 08/23/23 11:16 Pulse Ox 96 08/23/23 11:16 O2 Del Method Room Air 08/23/23 11:16 O2 Flow Rate 2 08/23/23 07:17 BMI result Body Mass Index 37.1 Const: General: cooperative, comfortable, no acute distress, alert and awake Resp: Effort & Inspection: normal respiratory effort, able to speak in complete sentences, no respiratory distress and no use of accessory muscles Cardio: Rate: regular rate GI: Inspection: No distended Palpation (GI): Soft to palpation and nontender Neuro: General: moves all extremities Extrem: General: Yes no pedal edema Objective Data Active Medications Acetaminophen (Acetaminophen 325 Mg Tablet) 650 mg PO Q6H PRN PRN Reason: Pain, Mild (Pain Scale 1-3) Last Admin: 08/22/23 16:31 Dose: 650 mg Documented By: JAIRO Al Hydroxide/Mg Hydroxide (Magnesium Hydrox/Alum Hydrox 30 Ml Oral.Susp) 30 ml PO Q6H PRN PRN Reason: heart burn Last Admin: 08/22/23 12:45 Dose: 30 ml Documented By: JAIRO Amlodipine Besylate (Amlodipine Besylate 5 Mg Tablet) 5 mg PO DAILY [facility]; Protocol Last Admin: 08/23/23 08:30 Dose: 5 mg Documented By: ALISSA Atorvastatin Calcium (Atorvastatin Calcium 40 Mg Tablet) 40 mg PO BEDTIME [facility] Last Admin: 08/22/23 21:38 Dose: 40 mg Documented By: ANALY Benzocaine (Throat Lozenge, Medicated Lozenge) 1 lozenge MUCOUS MEM Q2H PRN PRN Reason: Sore Throat Bumetanide (Bumetanide 1 Mg Tablet) 1 mg PO BID@0900,1200 [facility]; Protocol Last Admin: 08/23/23 11:40 Dose: 1 mg Documented By: SIA Dextrose (Dextrose 50 % 25 Gm/50 Ml Syringe) 25 gm IVPUSH Q15M PRN; Protocol PRN Reason: per Hypoglycemia Standing Ord. Donepezil HCl (Donepezil Hcl 10 Mg Tablet) 10 mg PO BEDTIME [facility] Last Admin: 08/22/23 21:38 Dose: 10 mg Documented By: ANALY Escitalopram Oxalate (Escitalopram Oxalate 10 Mg Tablet) 10 mg PO BEDTIME [facility] Last Admin: 08/22/23 21:39 Dose: 10 mg Documented By: ANALY Gabapentin (Gabapentin 600 Mg Tablet) 600 mg PO BID [facility] Last Admin: 08/23/23 08:30 Dose: 600 mg Documented By: ALISSA Glucose (Glucose Gel 15 Gm Gel..Gram.) 15 gm PO Q15M PRN; Protocol PRN Reason: per Hypoglycemia Standing Ord. Insulin Glargine (Insulin Glargine,Hum.Rec.Anlog 100 Unit/Ml 10 Ml Vial) 20 unit SUBCUT BEDTIME [facility] Last Admin: 08/22/23 21:52 Dose: 20 unit Documented By: ANALY Insulin Human Lispro (Insulin Lispro 100 Unit/Ml 3 Ml Vial) 0 unit SUBCUT QIDACHS [facility]; Protocol Last Admin: 08/23/23 11:40 Dose: 12 unit Documented By: SIA Metoprolol Tartrate (Metoprolol Tartrate 100 Mg Tablet) 100 mg PO BID [facility]; Protocol Last Admin: 08/23/23 08:30 Dose: 100 mg Documented By: ALISSA Omeprazole (Omeprazole 40 Mg Capsule.) 40 mg PO BID@0630,1630 [facility] Last Admin: 08/23/23 06:14 Dose: 40 mg Documented By: BEATRICE Ondansetron HCl (Ondansetron Hcl 4 Mg/2 Ml Vial) 4 mg IVPUSH Q8H PRN PRN Reason: Nausea and Vomiting Sodium Chloride (0.9 % Sodium Chloride Flush 3 Ml Syringe) 3 ml IVFLUSH QSHIFT [facility] Last Admin: 08/23/23 08:31 Dose: 3 ml Documented By: ALISSA Sucralfate (Sucralfate 1 Gm Tablet) 1 gm PO QIDACHS [facility] Last Admin: 08/23/23 11:39 Dose: 1 gm Documented By: SIA Labs 08/23/23 06:35 08/23/23 06:35 Labs: Laboratory Results - last 24 hr 08/22/23 08/22/23 08/22/23 16:13 19:36 21:31 MCV MCH MCHC RDW Plt Count MPV Absolute Nucleated RBC Nucleated RBC % (auto) Anion Gap Estim Creat Clear Calc Estimated GFR POC Glucose 389 H* 299 H 282 H Random Glucose Calcium 08/23/23 08/23/23 08/23/23 06:35 07:20 11:25 MCV 98.3 H MCH 33.7 H MCHC 34.3 RDW 15.0 Plt Count 131 L MPV 12.3 Absolute Nucleated RBC 0.000 Nucleated RBC % (auto) 0.0 Anion Gap 14 Estim Creat Clear Calc 58.7 Estimated GFR 50 POC Glucose 243 H 333 H Random Glucose 238 H Calcium 8.6 Assessment and Plan (1) Upper GI bleed: Status: Acute (2) Gastric ulcer: Status: Acute Plan 78-year-old male with history of atrial fibrillation on Eliquis, Alzheimer's dementia, diabetes, HFpEF , CAD presents with several stools of maroon foul- smelling stool. (Heme-positive). In the emergency room given Kcentra along with PRBCs x2. Current hemodynamically stable with sats maintained at 3 liters/minute. Given 1 dose of IV pantoprazole. Volume resuscitation with saline completed. Upper GI bleed/acute blood loss anemia due to gastric ulcer received kcentra, FFP and multiple units on blood on admission initial EGD 08/18 -superficial ulcer with adherent clot and oozing s/p clip repeat EGD 08/21 with no active bleeding noted bx obtained and pending denies abdominal pain, hematocrit stable GI recommend carafate 1 g QID for 1 week, high dose PPI, can consider restarting eliquis start 08/24; if re bleeds consider risk - benefit ratio and d/c'ing eliquis, if h pylori pos then treat, o/p GI f/u on diabetic diet Atrial fibrillation continue metoprolol 100 mg b.i.d. , stable heart rate last echo 2020 demonstrates LVEF 55-60% Eliquis on hold secondary to above JAMES on CKD 3 creatinine appears back to baseline -avoid nephrotoxic agents DMII -elevated blood sugars , in 200-300 range will increase dose of insulin sliding scale, and placed back on Lantus 20 units at bedtime on 70/30 at baseline Morbid Obesity BMI 37 recommended low-calorie diet Acute on chronic heart failure with preserved EF noted to have fluid overload this morning with bilateral wheeze, no JVD, no leg edema treated with 1 dose of IV Lasix with good response continue home dose of Bumex 1 mg b.i.d. DC IV fluids, stable oxygenation 93% on room air Mood order/Alzheimer's dementia continue Aricept and Lexapro Full code dvt prophylaxis - Pneumatics dispo - PT rec STR - case management aware Patient need continued inpatient hospitalization for closed GI monitoring after repeat endoscopy and monitoring of respiratory status Time Spent With Patient Time: Total time managing care of this patient today ____ minutes. Quality Stroke Does the patient have a stroke diagnosis?: No VTE Prior VTE?: No VTE Risk Level:: Medical - moderate - high VTE Device Contraindication: N/A - Device Ordered VTE Drug Contraindication: Treatment Not Indicated
[2023-08-23 15:49] VITALS: BP 137/75; PULSE 86; RESP 20; TEMP 36.2; O2SAT 95
[2023-08-23 16:13] LABS: Glucose, Whole Blood 295 mg/dL (60-115)
[2023-08-23] MEDS: Acetaminophen 325 MG TABLET 650 MG PO (17:32)
[2023-08-23 20:00] VITALS: BP 124/61; PULSE 69; RESP 18; TEMP 36.5; O2SAT 93
[2023-08-23 20:38] LABS: Glucose, Whole Blood 248 mg/dL (60-115)
[2023-08-23] MEDS: Atorvastatin Calcium 40 MG TABLET PO (21:59)
[2023-08-23] MEDS: Donepezil HCl 10 MG TABLET PO (21:59)
[2023-08-23] MEDS: Throat Lozenge, Medicated LOZENGE 1 LOZENGE MUCOUS MEM (21:59)
[2023-08-23] MEDS: Escitalopram Oxalate 10 MG TABLET PO (21:59)
[2023-08-23] MEDS: Insulin Glargine,Hum.rec.anlog 100 UNIT/ML 10 ML VIAL 20 UNIT SUBCUT (21:59)
[2023-08-23 23:17] VITALS: BP 145/85; PULSE 71; RESP 20; TEMP 36.2; O2SAT 93
[2023-08-24 03:04] VITALS: BP 129/61; PULSE 71; RESP 20; TEMP 36.2; O2SAT 92
[2023-08-24] MEDS: Omeprazole 40 MG CAPSULE.DR PO ×2 (06:29→17:03)
[2023-08-24 07:39] LABS: Glucose, Whole Blood 174 mg/dL (60-115)
[2023-08-24 08:00] VITALS: BP 140/78; PULSE 88; RESP 20; TEMP 36.7; O2SAT 97
[2023-08-24] MEDS: Bumetanide 1 MG TABLET PO ×2 (08:09→11:47)
[2023-08-24] MEDS: Insulin Lispro 100 UNIT/ML 3 ML VIAL SUBCUT ×3 (08:09→17:03)
[2023-08-24] MEDS: Apixaban 5 MG TABLET PO (08:09)
[2023-08-24] MEDS: Gabapentin 600 MG TABLET PO (08:10)
[2023-08-24] MEDS: Metoprolol Tartrate 100 MG TABLET PO (08:10)
[2023-08-24] MEDS: Sucralfate 1 GM TABLET PO ×3 (08:10→17:03)
[2023-08-24] MEDS: amLODIPine Besylate 5 MG TABLET PO (08:10)
[2023-08-24] MEDS: 0.9 % Sodium Chloride Flush 3 ML SYRINGE IVFLUSH ×2 (08:10→17:03)
[2023-08-24 08:58] VITALS: BP 140/78; PULSE 88; O2SAT 97
[2023-08-24 11:23] VITALS: BP 132/70; PULSE 73; RESP 20; TEMP 36.2; O2SAT 96
[2023-08-24 11:23] LABS: Glucose, Whole Blood 332 mg/dL (60-115)
--- NOTE | 2023-08-24 11:30 | MHC.CM.PN ---
[facility] has offered pt a bed pending insurance auth. This CM met with pt w/ nursing instructor, and pt is accepting the bed offer. This CM and nursing instructor contacted pts son Hadley who is also in agreement. This CM notified [facility] that pt accepts bed offer and to go for auth. CM will continue to follow.
--- NOTE | 2023-08-24 13:17 | P.PNIM_ITS ---
Subjective Subjective Date of Service: 08/24/23 Interval History: seen and examined this morning follow up for GI bleeding right arm noted to be swollen - US c/w throbophlebitis pt awake, alert, reports a little pain with palpation of right upper extremity Review of Systems Review of Systems: Yes all other systems are reviewed and are negative Constitutional Constitutional: Denies chills and Denies fever(s) Cardiovascular Cardiovascular: Denies chest pain and Denies dyspnea Respiratory Respiratory: Denies dyspnea Gastrointestinal Gastrointestinal: Denies abdominal pain Physical Exam 2 Vital Signs: Vital Signs: Last Vital Signs Temp 97.1 F 08/24/23 11:23 Pulse 73 08/24/23 11:23 Resp 20 08/24/23 11:23 BP 132/70 08/24/23 11:23 Pulse Ox 96 08/24/23 11:23 O2 Del Method Nasal Cannula 08/24/23 11:23 O2 Flow Rate 1 08/24/23 11:23 BMI result Body Mass Index 37.1 Const: General: cooperative, comfortable, no acute distress, alert and awake Resp: Effort & Inspection: normal respiratory effort, able to speak in complete sentences, no respiratory distress and no use of accessory muscles Cardio: Rate: regular rate GI: Inspection: No distended Palpation (GI): Soft to palpation and nontender Skin: Other: RUE induration noted with overlying erythema; mild tenderness to palpation, mild swelling Neuro: General: moves all extremities Extrem: General: Yes no pedal edema Objective Data Active Medications Acetaminophen (Acetaminophen 325 Mg Tablet) 650 mg PO Q6H PRN PRN Reason: Pain, Mild (Pain Scale 1-3) Last Admin: 08/23/23 17:32 Dose: 650 mg Documented By: SIA Al Hydroxide/Mg Hydroxide (Magnesium Hydrox/Alum Hydrox 30 Ml Oral.Susp) 30 ml PO Q6H PRN PRN Reason: heart burn Last Admin: 08/22/23 12:45 Dose: 30 ml Documented By: JAIRO Amlodipine Besylate (Amlodipine Besylate 5 Mg Tablet) 5 mg PO DAILY [facility]; Protocol Last Admin: 08/24/23 08:10 Dose: 5 mg Documented By: FLORENCIA Apixaban (Apixaban 5 Mg Tablet) 5 mg PO BID [facility] Last Admin: 08/24/23 08:09 Dose: 5 mg Documented By: FLORENCIA Atorvastatin Calcium (Atorvastatin Calcium 40 Mg Tablet) 40 mg PO BEDTIME [facility] Last Admin: 08/23/23 21:59 Dose: 40 mg Documented By: ADA Benzocaine (Throat Lozenge, Medicated Lozenge) 1 lozenge MUCOUS MEM Q2H PRN PRN Reason: Sore Throat Last Admin: 08/23/23 21:59 Dose: 1 lozenge Documented By: ADA Bumetanide (Bumetanide 1 Mg Tablet) 1 mg PO BID@0900,1200 [facility]; Protocol Last Admin: 08/24/23 11:47 Dose: 1 mg Documented By: FLORENCIA Dextrose (Dextrose 50 % 25 Gm/50 Ml Syringe) 25 gm IVPUSH Q15M PRN; Protocol PRN Reason: per Hypoglycemia Standing Ord. Donepezil HCl (Donepezil Hcl 10 Mg Tablet) 10 mg PO BEDTIME [facility] Last Admin: 08/23/23 21:59 Dose: 10 mg Documented By: ADA Escitalopram Oxalate (Escitalopram Oxalate 10 Mg Tablet) 10 mg PO BEDTIME [facility] Last Admin: 08/23/23 21:59 Dose: 10 mg Documented By: ADA Gabapentin (Gabapentin 600 Mg Tablet) 600 mg PO BID [facility] Last Admin: 08/24/23 08:10 Dose: 600 mg Documented By: FLORENCIA Glucose (Glucose Gel 15 Gm Gel..Gram.) 15 gm PO Q15M PRN; Protocol PRN Reason: per Hypoglycemia Standing Ord. Insulin Glargine (Insulin Glargine,Hum.Rec.Anlog 100 Unit/Ml 10 Ml Vial) 20 unit SUBCUT BEDTIME [facility] Last Admin: 08/23/23 21:59 Dose: 20 unit Documented By: ADA Insulin Human Lispro (Insulin Lispro 100 Unit/Ml 3 Ml Vial) 0 unit SUBCUT QIDACHS [facility]; Protocol Last Admin: 08/24/23 11:47 Dose: 12 unit Documented By: FLORENCIA Metoprolol Tartrate (Metoprolol Tartrate 100 Mg Tablet) 100 mg PO BID [facility]; Protocol Last Admin: 08/24/23 08:10 Dose: 100 mg Documented By: FLORENCIA Omeprazole (Omeprazole 40 Mg Capsule.Dr) 40 mg PO BID@0630,1630 [facility] Last Admin: 08/24/23 06:29 Dose: 40 mg Documented By: SAMI Ondansetron HCl (Ondansetron Hcl 4 Mg/2 Ml Vial) 4 mg IVPUSH Q8H PRN PRN Reason: Nausea and Vomiting Sodium Chloride (0.9 % Sodium Chloride Flush 3 Ml Syringe) 3 ml IVFLUSH QSHIFT [facility] Last Admin: 08/24/23 08:10 Dose: 3 ml Documented By: FLORENCIA Sucralfate (Sucralfate 1 Gm Tablet) 1 gm PO QIDACHS [facility] Last Admin: 08/24/23 11:47 Dose: 1 gm Documented By: FLORENCIA Labs 08/23/23 06:35 08/23/23 06:35 Labs: Laboratory Results - last 24 hr 08/23/23 08/23/23 08/24/23 16:09 20:34 07:34 POC Glucose 295 H 248 H 174 H 08/24/23 11:07 POC Glucose 332 H Assessment and Plan (1) Thrombophlebitis arm: Status: Acute (2) Gastric ulcer: Status: Acute Plan 78-year-old male with history of atrial fibrillation on Eliquis, Alzheimer's dementia, diabetes, HFpEF , CAD presents with several stools of maroon foul- smelling stool. (Heme-positive). In the emergency room given Kcentra along with PRBCs x2. Current hemodynamically stable with sats maintained at 3 liters/minute. Given 1 dose of IV pantoprazole. Volume resuscitation with saline completed. Upper GI bleed/acute blood loss anemia due to gastric ulcer received kcentra, FFP and multiple units on blood on admission initial EGD 08/18 -superficial ulcer with adherent clot and oozing s/p clip repeat EGD 08/21 with no active bleeding noted bx for h. pylori obtained and pending denies abdominal pain, hematocrit stable GI recommend carafate 1 g QID for 1 week, high dose PPI, if re bleeds consider risk - benefit ratio and d/c'ing eliquis, if h pylori pos then treat, o/p GI f/u extensive discussion with son/HCP about risks/benefits of resuming AC with Eliquis with director athletic. understands risk of rebleed -wishes to resume AC Superficial thrombophlebitis of RUE already resumed on AC elevate arm and warm compresses Atrial fibrillation continue metoprolol 100 mg b.i.d. , stable heart rate last echo 2020 demonstrates LVEF 55-60% Eliquis resume as above JAMES on CKD 3 creatinine appears back to baseline DMII elevated blood sugars , in 200-300 range- SSI dosing previously increased will increase Lantus to 25U at bedtime on 70/30 at baseline - non formulary Morbid Obesity BMI 37 recommended low-calorie diet Acute on chronic heart failure with preserved EF noted to have fluid overload 08/22 with bilateral wheeze, no JVD, no leg edema treated with 1 dose of IV Lasix with good response continue home dose of Bumex 1 mg b.i.d. DC IV fluids, stable oxygenation Mood order/Alzheimer's dementia continue Aricept and Lexapro Full code dvt prophylaxis - eliquis Attending - Dr. Morel dispo - PT rec STR - case management aware Patient need continued inpatient hospitalization for close monitoring cbc, and safe dispositio Time Spent With Patient Time: Total time managing care of this patient today ____ minutes. Quality Stroke Does the patient have a stroke diagnosis?: No VTE Prior VTE?: No VTE Risk Level:: Medical - moderate - high VTE Device Contraindication: N/A - Device Ordered VTE Drug Contraindication: Treatment Not Indicated
--- NOTE | 2023-08-24 15:28 | MHC.CM.PN ---
Second IMM given 08/24. Auth obtained, and pt is medically cleared for D/C to [facility] for STR. Transport set up for 6pm this evening via BLS/[facility]. Pts son Armando notified by this CM w/ typewriter operator automatic, and pts son in agreement with this plan.
[2023-08-24 15:51] VITALS: BP 136/66; PULSE 80; RESP 20; TEMP 36.6; O2SAT 97
[2023-08-24 16:18] LABS: Glucose, Whole Blood 307 mg/dL (60-115)
--- NOTE | 2023-08-24 16:18 | P.DS_ITS ---
DS: Providers Provider Date of Service: 08/24/23 Date of admission: 08/17/23 15:07 Date of discharge: 08/24/23 Primary care physician: Kathy Villafana MD Attending physician on discharge: Oscar Morel Discharging clinician: Anum Hall DS: Diagnosis Discharge Diagnosis (1) Thrombophlebitis arm: Status: Acute (2) Gastric ulcer: Status: Acute (3) Upper GI bleed: Status: Acute (4) Acute anemia: Status: Acute (5) Atrial fibrillation: Status: Acute DS: Summary Hospital Course Hospital Course: From H&P on the day of admission 78-year-old male who is brought to emergency department for evaluation a fall at home. The information came from the patient's son and [id number]. the patient has been living with his family for approximately 3 years. According to his family he was not ill in any way until this morning when he got up to go to the bathroom. He was using his walker to go from the bedroom to the bathroom, his son was assisting him, the patient then fell backwards and the son caught him and lowered to the ground. The son states that he started shaking and the daughter long noted that the patient has eyes rolled into the back of his head. Patient had a brief moment of loss of consciousness. he did not make it to the bathroom and he was incontinent of stool. According to the family he has been eating and drinking well. He has had a cough which has been nonproductive over the last 2-3 days. He did not have a documented fever or chills. He did not complain of chest pain, shortness of breath. He had no nausea, vomiting, diarrhea or change in his bowel movements. In ER..HGb stable initially. Multiple episodes of maroon stool. Given 2 units of blood 3rd unit pending. Lasix to be given before 3rd unit. FFP ordered to be given after. Also receive Concentra. 78-year-old male with history of atrial fibrillation on Eliquis, Alzheimer's dementia, diabetes, HFpEF , CAD presents with several stools of maroon foul- smelling stool. (Heme-positive). In the emergency room given Kcentra along with PRBCs x2. required ICU level of care for close monitoring given active bleeding. he was downgraded to the medical floor after initial EGD. Upper GI bleed/acute blood loss anemia due to gastric ulcer received kcentra, FFP and multiple units on blood on admission initial EGD 08/18 -superficial ulcer with adherent clot and oozing s/p clip repeat EGD 08/21 with no active bleeding noted bx for h. pylori obtained and pending denies abdominal pain, hematocrit stable GI recommend carafate 1 g QID for 1 week, high dose PPI, if re bleeds consider risk - benefit ratio and d/c'ing eliquis, if h pylori pos then treat, o/p GI f/u extensive discussion with son/HCP about risks/benefits of resuming AC with Eliquis with layer out plate glass. understands risk of rebleed -wishes to resume AC monitor for signs of bleeding and repeat CBC on Sunday Superficial thrombophlebitis of RUE US from 08/24 showing acute thrombophlebitis of the cephalic vein already resumed on AC with eliquis elevate arm and warm compresses Atrial fibrillation continue metoprolol 100 mg b.i.d. , stable heart rate last echo 2020 demonstrates LVEF 55-60% Eliquis resumed as above JAMES on CKD 3 creatinine appears back to baseline DMII elevated blood sugars , in 200-300 range- SSI dosing previously increased will increase Lantus to 25U at bedtime on at baseline - non formulary Morbid Obesity BMI 37 recommended low-calorie diet Acute on chronic heart failure with preserved EF noted to have fluid overload 08/22 with bilateral wheeze, no JVD, no leg edema treated with 1 dose of IV Lasix with good response continue home dose of Bumex 1 mg b.i.d. wean oxygen as tolerated Time Spent with Patient Time attestation: Total time managing care of this patient today ____ minutes. Discharge coordination time: Greater than 30 minutes Quality: Safe Use of Opioids Does Pt have an Active Cancer Diagnosis on the Problem List?: No Quality: Stroke Does the patient have a stroke diagnosis?: No Physical Exam 2 Vital Signs: Vital Signs: Last Vital Signs Temp 97.9 F 08/24/23 15:51 Pulse 80 08/24/23 15:51 Resp 20 08/24/23 15:51 BP 136/66 08/24/23 15:51 Pulse Ox 97 08/24/23 15:51 O2 Del Method Nasal Cannula 08/24/23 15:51 O2 Flow Rate 1 08/24/23 15:51 BMI result Body Mass Index 37.1 Const: General: cooperative, comfortable, no acute distress, alert and awake Resp: Effort & Inspection: normal respiratory effort, able to speak in complete sentences, no respiratory distress and no use of accessory muscles Cardio: Rate: regular rate GI: Inspection: No distended Palpation (GI): Soft to palpation and nontender Skin: Other: RUE induration noted with overlying erythema; mild tenderness to palpation, mild swelling Neuro: General: moves all extremities DS: Data Data Completed and Pending Completed studies during hospitalization [Text1]: Pending at discharge 08/21/23 14:50 Surgical [PTH] Routine Procedures Excision of Right Foot Skin, External Approach (10/07/21) Labs on day of discharge: Laboratory Results - last 24 hr 08/23/23 08/24/23 08/24/23 20:34 07:34 11:07 POC Glucose 248 H 174 H 332 H Discharge Plan Discharge Anticipated Discharge Date/Time: 08/24/23 18:00 Patient Disposition: Home, Self-Care Discharge Diagnosis: gastric ulcer upper GI bleed thrombophlebitis Referrals: Kelsie Mcmullen [Outside] - 1 Week Kathy Villafana MD [Primary Care Provider] - 1 Week Discharge Medications: New omeprazole 40 mg Capsule,Delayed Release(Dr/Ec) 40 mg PO BID@0630,1630 30 Days Qty: 60 0RF insulin glargine [Lantus U-100 Insulin] 100 unit/mL Solution 25 unit subcut BEDTIME Qty: 10 0RF sucralfate 1 gram Tablet 1 g PO QIDACHS 5 Days Qty: 20 0RF insulin lispro [Humalog KwikPen Insulin] 100 unit/mL Insulin Pen 10 unit SUBCUT TIDAC Qty: 15 0RF insulin lispro [Humalog KwikPen Insulin] 100 unit/mL insulin pen 0 sliding scale dose SUBCUT QIDACHS Qty: 15 0RF Rx Instructions: Blood Sugar: <150 - 0 units 151-200 - 2 units 201-250 - 4 units 251-300 - 6 units 301-350 - 8 units >350 - 10 units Continued Eliquis 5 mg tablet 1 tab PO BID donepezil 10 mg tablet 1 tab PO QPM CertaVite Senior 0.4-300-250 mg-mcg-mcg tablet 1 tab PO DAILY atorvastatin [Lipitor] 40 mg tablet 40 mg PO BEDTIME Qty: 30 0RF metoprolol tartrate 100 mg tablet 100 mg PO BID memantine 10 mg tablet 10 mg PO BID magnesium oxide 250 mg magnesium tablet 250 mg PO DAILY allopurinol 100 mg tablet 0.5 tab PO DAILY acetaminophen 500 mg tablet 1 tab PO Q6H PRN (Reason: pain) carboxymethylcellulose sodium [Refresh Tears] 0.5 % drops 1 drp ophthalmic (eye) Q4-6H PRN (Reason: Dry Eye(S)) diphenhydramine HCl [Banophen] 25 mg tablet 0.5 tab PO BEDTIME PRN (Reason: Insomnia) gabapentin 600 mg tablet 1 tab PO BID (DME) lancets [Lancets,Ultra Thin] Misc See Rx Instructions .Route Qty: 100 0RF Rx Instructions: As directed ketoconazole 2 % shampoo 1 appl topical Q2W Rx Instructions: APPLY THE MORNING AFTER FLUCINOLONE OIL cetirizine 10 mg tablet 10 mg PO DAILY amlodipine 5 mg tablet 5 mg PO QAM triamcinolone acetonide 0.1 % cream 1 appl topical BID citalopram 20 mg tablet 20 mg PO BEDTIME fluocinolone 0.01 % oil 1 appl topical Q2W Rx Instructions: APPLY IN THE EVENING AND WASH WITH KETOCONAZOLE IN THE MORNING (DME) insulin syringe-needle U-100 1 mL 31 gauge x 5/16 syringe See Rx Instructions subcut TID Qty: 10 Rx Instructions: As directed bumetanide 1 mg tablet 1 mg PO BID@0900,1200 Discontinued glimepiride 4 mg tablet 1 tab PO BID Novolin 70-30 FlexPen U-100 100 unit/mL (70-30) Insulin Pen 76 unit SUBCUT BID Discharge Orders: Discharge Order (Routine); Ordered 08/24/23 Ordered By: Anum Hall Activity on Discharge: As tolerated Stand Alone Forms: Patient Portal Discharge page Care Plan Goals: see below Health Concerns: acute Gi bleeding/blood loss anemia secondary to gastric ulcer acute thrombophlebitis of RUE JAMES on CKD3 Plan of Treatment: Gastric ulcer - continue high dose PPI, carafate for 4 more days, will need outpatient follow up with GI h/o atrial fibrillation - resumed back on Eliquis - monitor for signs of bleeding. repeat CBC Sunday - on 70/30 at baseline. not formulary. was converted to Lantus. blood sugar still elevated. rec lantus 25u, premeal insulin 10U tid. follow point of care closely and adjust insulin according. glimeperide stopped. for thrombophlebitis - continue eliquis, recommend to keep arm elevated, and warm compresses wean oxygen as tolerated will need follow up with PCP - call to [facility] appointment Assessment: see discharge summary
[2023-08-24] MEDS: Acetaminophen 325 MG TABLET 650 MG PO (17:03)
[2023-08-24] MEDS: Magnesium Hydrox/Alum Hydrox 30 ML ORAL.SUSP PO (17:03)
--- NOTE | 2023-08-28 14:01 | P.CDIM_ITS ---
PROVIDER RESPONSE TEXT: To clarify, the appropriate diagnosis supported by the clinical indicators: Diabetes mellitus Type 2 with hyperglycemia QUERY TEXT: PHYSICIAN'S DOCUMENTATION REQUEST Date of Query: 08/20/2023 12:11 PM EDT Patient Name: Dayton Oquendo Admit Date: 08/17/2023 Dear Citlaly Tellez, A review of the medical record indicates additional documentation may be needed. Please review below and update the documentation accordingly. Clinical Indicators: PN: DM II will hold all oral agents lispro correctional scale POC glucose 375 H 322 H Insulin Please clarify the following regarding the Complications of Diabetes Mellitus (DM): Diabetes mellitus Type 2 with hyperglycemia Other please specify Other (explain)Clinically unable to determine (explain)Thank you, Marian Fabian, CCS, CDIS Use of terms such as suspected, likely, concern for, or probable (associated with a specific diagnosi s that is being evaluated, monitored, or treated as if it exists) are acceptable and can be coded in the inpatient se tting, when documented at the time of discharge. Please use your independent medical judgment in providing your response. THIS QUERY IS PART OF THE PERMANENT MEDICAL RECORD
--- NOTE | 2023-08-28 14:05 | P.CDIM_ITS ---
PROVIDER RESPONSE TEXT: To clarify, the appropriate diagnosis supported by the clinical indicators: Long lasting persistent atrial fibrillation: episodes of continuous AF that last more than 12 months QUERY TEXT: PHYSICIAN'S DOCUMENTATION REQUEST Date of Query: 08/22/2023 08:28 AM EDT Patient Name: Dayton qOuendo Admit Date: 08/17/2023 Dear Citlaly Tellez, A review of the medical record indicates additional documentation may be needed. Please review below and update the documentation accordingly. Clinical Indicators: PN: Atrial fibrillation concurrently rate control last echo 2020 demonstrates LVEF 55-60% Eliquis on hold secondary to 1 pulse dose with IV Lopressor as needed to control heart rate. If possible, please provide further specificity regarding atrial fibrillation, such as: Paroxysmal atrial fibrillation: terminates spontaneously or with intervention within 7 days of onset Persistent atrial fibrillation: episodes of continuous AF that last more than 7 days and do not self- terminate Long lasting persistent atrial fibrillation: episodes of continuous AF that last more than 12 months Chronic or Permanent atrial fibrillation: when a decision has been made to accept the presence of AF and there is no further attempt to restore or maintain sinus rhythm Other (explain)Clinically unable to determine (explain)Thank you, Marian Fabian, CCS, CDIS Use of terms such as suspected, likely, concern for, or probable (associated with a specific diagnosi s that is being evaluated, monitored, or treated as if it exists) are acceptable and can be coded in the inpatient se tting, when documented at the time of discharge. Please use your independent medical judgment in providing your response. THIS QUERY IS PART OF THE PERMANENT MEDICAL RECORD
== END 2023-08-24 18:48 | disposition home or self-care (01) | DRG 377 ==
LOC: HO.ED 13:33 → HO.EDOVER 16:26 → HO.IMC 17:56 → HO.ICU 18:51 → HO.IMC 08-18 11:02
PROVIDERS: Hospitalist; Internal Medicine Gastroenterology; Internal Medicine Pulmonary Disease; Nurse Practitioner Family; Admitting Provider Hospitalist; Emergency Provider Emergency Medicine Emergency Medical Services; PCP General Practice; Visit Provider Physician Assistant Medical
PROC: 0DJ08ZZ Inspection of Upper Intestinal Tract, Via Natural or Artificial Opening Endoscopic (ICD-10-PCS; CPT 43235; principal; 2023-08-18 09:00)
DX: K25.4 Chronic or unspecified gastric ulcer with hemorrhage (principal); I50.33 Acute on chronic diastolic (congestive) heart failure; I13.0 Hypertensive heart and chronic kidney disease with heart failure and stage 1 through stage 4 chronic kidney disease, or unspecified chronic kidney disease; D62 Acute posthemorrhagic anemia; I48.11 Longstanding persistent atrial fibrillation; G30.9 Alzheimer's disease, unspecified; F02.80 Dementia in other diseases classified elsewhere, unspecified severity, without behavioral disturbance, psychotic disturbance, mood disturbance, and anxiety; N18.30 Chronic kidney disease, stage 3 unspecified; E11.22 Type 2 diabetes mellitus with diabetic chronic kidney disease; D63.1 Anemia in chronic kidney disease; E11.65 Type 2 diabetes mellitus with hyperglycemia; I25.10 Atherosclerotic heart disease of native coronary artery without angina pectoris; F39 Unspecified mood [affective] disorder; E66.01 Morbid (severe) obesity due to excess calories; I95.9 Hypotension, unspecified; I80.8 Phlebitis and thrombophlebitis of other sites; Z68.37 Body mass index [BMI] 37.0-37.9, adult; E78.5 Hyperlipidemia, unspecified; Z20.822 Contact with and (suspected) exposure to COVID-19; Z79.4 Long term (current) use of insulin; Z79.01 Long term (current) use of anticoagulants; Z79.899 Other long term (current) drug therapy
CPT/HCPCS: 36415; 71045; 80048; 80053; 80307; 81003; 82272; 82550; 82803; 82947; 83605; 83690; 83735; 83880; 84100; 84484; 85014; 85018; 85025; 85027; 85610; 85730; 86850; 86900; 86901; 86920; 86923; 87502; 87635; 88305; 88342; 93005; 93971; 97116; 97162; 99285; C1758; J0171; J1200; J1940; J2371; J2765; J2930; J3010; J7168; P9016; P9017

== ENCOUNTER → 2023-08-17 10:42 | Outpatient (BNV) | payer MEDICARE, SELFPAY | PROVIDERS: Emergency Provider Emergency Medicine Emergency Medical Services; PCP General Practice; Visit Provider Hospitalist | DX: I48.11 Longstanding persistent atrial fibrillation (principal); I80.8 Phlebitis and thrombophlebitis of other sites; K92.2 Gastrointestinal hemorrhage, unspecified; D64.9 Anemia, unspecified | CPT/HCPCS: 99223; 99232; 99233; 99239 ==

== ENCOUNTER → 2023-08-17 15:07 | Outpatient (BNV) | payer MEDICARE, SELFPAY | PROVIDERS: Admitting Provider Hospitalist; Emergency Provider Emergency Medicine Emergency Medical Services; PCP General Practice; Visit Provider Internal Medicine Gastroenterology | DX: K92.2 Gastrointestinal hemorrhage, unspecified (principal) | CPT/HCPCS: 43239; 43255; 99232 ==

== ENCOUNTER → 2023-08-17 15:07 | Outpatient (BNV) | payer MEDICARE, SELFPAY | PROVIDERS: Admitting Provider Hospitalist; Emergency Provider Emergency Medicine Emergency Medical Services; PCP General Practice; Visit Provider Internal Medicine Pulmonary Disease | DX: K25.0 Acute gastric ulcer with hemorrhage (principal); E11.9 Type 2 diabetes mellitus without complications; I25.10 Atherosclerotic heart disease of native coronary artery without angina pectoris; I10 Essential (primary) hypertension; G30.9 Alzheimer's disease, unspecified; F02.80 Dementia in other diseases classified elsewhere, unspecified severity, without behavioral disturbance, psychotic disturbance, mood disturbance, and anxiety; I48.11 Longstanding persistent atrial fibrillation | CPT/HCPCS: 99232 ==

== ENCOUNTER → 2023-08-17 15:07 | Outpatient (BNV) | payer MEDICARE, SELFPAY | PROVIDERS: Admitting Provider Hospitalist; Emergency Provider Emergency Medicine Emergency Medical Services; PCP General Practice; Visit Provider Nurse Practitioner Family | DX: K92.2 Gastrointestinal hemorrhage, unspecified (principal); D64.9 Anemia, unspecified; R55 Syncope and collapse; E11.9 Type 2 diabetes mellitus without complications; I48.11 Longstanding persistent atrial fibrillation; I25.10 Atherosclerotic heart disease of native coronary artery without angina pectoris; G30.9 Alzheimer's disease, unspecified; F02.80 Dementia in other diseases classified elsewhere, unspecified severity, without behavioral disturbance, psychotic disturbance, mood disturbance, and anxiety | CPT/HCPCS: 99291; 99499 ==

== ENCOUNTER 2023-09-16 13:54 | Emergency (ER) | payer MEDICARE, SELFPAY ==
--- NOTE | ~2023-09-16 | XR_ITS ---
EXAMINATION: XR CHEST CLINICAL INFORMATION: Hypoxia. COMPARISON: Chest x-ray 08/17/2023 TECHNIQUE: 2 views of the chest were obtained. FINDINGS: The lungs are well-expanded and clear of acute pneumonic process. There is focal atelectatic changes left lung base. There is a small pleural effusion. Rest of the lungs are clear. The heart size and pulmonary vascularity is normal. No gross bony abnormality is seen. XR/XR chest 2V IMPRESSION: Small left pleural effusion with underlying left lower lobe atelectasis.
--- NOTE | 2023-09-16 14:10 | ED_ITS ---
HPI - General Adult General Chief complaint: Skin/Abscess/Foreign Body Stated complaint: ITCHY R ARM Time Seen by Provider: 09/16/23 14:51 Source: patient, family and EMS Mode of arrival: EMS History of Present Illness HPI narrative: 78-year-old male with history DM, CAD, atrial fibrillation on Eliquis, HLD, AHF with preserved ejection fraction, NSTEMI, Alzheimer's, kidney failure, HTN, hx recent UGIB 2/2 gastric ulcer presenting to the emergency department from home via EMS with complaint of itching to right posterior arm since last night. He has dementia and is a poor historian. Family reports that he was scratching at the right elbow area starting last night. this morning the area was found to be red, bruised and excoritated. there was an open area that was bleeding. they gave benadryl and called 911. he was placed on 2L NC for Spo2 92%. he has not been coughing or c/o SOB MD complaint: right posterior arm itching Onset (ago): day(s) (1) Location: right and upper extremity Radiation: distal Severity: moderate Quality: other (itching) Pain Consistency: other (improved) Relieving factors: medication Exacerbating factors: none Associated symptoms: denies other symptoms Treatments prior to arrival: other (benadryl) Related Data Home Medications Medication Instructions Recorded Confirmed apixaban 5 mg tablet (Eliquis) 1 tab PO BID 09/05/21 08/17/23 donepezil 10 mg tablet 1 tab PO QPM 09/05/21 08/17/23 czribknm-ywv-soiqs acid 0.4 1 tab PO DAILY 09/05/21 08/17/23 mg-lycopene 300 mcg-lutein 250 mcg tablet (CertaVite Senior) acetaminophen 500 mg tablet 1 tab PO Q6H PRN pain 10/07/21 08/17/23 allopurinol 100 mg tablet 0.5 tab PO DAILY gout pain 10/07/21 08/17/23 carboxymethylcellulose sodium 0.5 1 drp ophthalmic (eye) Q4-6H PRN 10/07/21 08/17/23 % eye drops (Refresh Tears) Dry Eye(S) diphenhydramine HCl 25 mg tablet 0.5 tab PO BEDTIME PRN Insomnia 10/07/21 08/17/23 (Banophen) gabapentin 600 mg tablet 1 tab PO BID 10/17/21 08/17/23 insulin syringe-needle U-100 1 mL #10 ea 12/22/21 05/08/22 31 gauge x 16 bumetanide 1 mg tablet 1 mg PO BID@0900,1200 05/08/22 08/22/23 magnesium oxide 250 mg PO DAILY 05/08/22 08/17/23 memantine 10 mg tablet 10 mg PO BID 05/08/22 08/17/23 metoprolol tartrate 100 mg tablet 100 mg PO BID 05/08/22 08/17/23 amlodipine 5 mg tablet 5 mg PO QAM 08/17/23 08/17/23 cetirizine 10 mg tablet 10 mg PO DAILY congestion 08/17/23 08/17/23 citalopram 20 mg tablet 20 mg PO BEDTIME 08/17/23 08/17/23 fluocinolone 0.01 % topical body 1 appl topical Q2W 08/17/23 08/17/23 oil ketoconazole 2 % shampoo 1 appl topical Q2W 08/17/23 08/17/23 triamcinolone acetonide 0.1 % 1 appl topical BID 08/17/23 08/17/23 topical cream Previous Rx's Medication Instructions Recorded atorvastatin 40 mg tablet (Lipitor) 40 mg PO BEDTIME #30 tabs 09/09/21 lancets (Lancets,Ultra Thin) #100 ea 10/21/21 insulin glargine 100 unit/mL 25 unit (0.25 mL) subcut BEDTIME 08/24/23 subcutaneous solution (Lantus #10 mL U-100 Insulin) insulin lispro 100 unit/mL 0 sliding scale dose subcut 08/24/23 subcutaneous pen (Humalog KwikPen QIDACHS #15 mL (U-100) Insulin) insulin lispro 100 unit/mL 10 unit (0.1 mL) subcut TIDAC #15 08/24/23 subcutaneous pen (Humalog KwikPen mL (U-100) Insulin) omeprazole 40 mg capsule,delayed 40 mg PO BID@0630,1630 30 days #60 08/24/23 release caps sucralfate 1 gram tablet 1 g PO QIDACHS 5 days #20 tabs 08/24/23 triamcinolone acetonide 0.5 % 1 appl topical BID #15 grams 09/16/23 topical ointment Allergies Allergy/AdvReac Type Severity Reaction Status Date / Time No Known Allergies Allergy Verified 12/22/21 15:24 Review of Systems 2 Review of Systems: Yes all other systems are reviewed and are negative [facility] Past Medical History Medical History Trash foot Diabetic foot infection Heart failure with preserved ejection fraction HLD (hyperlipidemia) Diabetes mellitus Atrial fibrillation NSTEMI (non-ST elevated myocardial infarction) Alzheimer's dementia Kidney failure Diabetes HTN (hypertension) Surgical History No pertinent past surgical history Family History Family History Father No problems noted. Mother No problems noted. Social History Social History Household Members: Family Housing: Apartment Do you presently have visiting nurse or other home services: No Alcohol intake: never Patient Tobacco Use Status: Never used Tobacco e-Cigarette/Vaping Use: Never Used Second Hand Smoke Exposure: No Advance Directives: Yes Advance Directives on File: Yes Advance Directives Date on File: 09/06/21 service: No Current occupational status: retired Physical Exam ED Vital Signs: Vital Signs - 24 hr 09/16/23 14:15 09/16/23 15:58 Temperature 97.1 F 97.9 F Pulse Rate 76 67 Respiratory Rate 20 16 Blood Pressure 115/75 148/67 H Pulse Oximetry 95 96 Oxygen Delivery Method Nasal Cannula Room Air BMI result Body Mass Index 34.5 Appearance: Alert. No acute distress. Head: normocephalic, atraumatic. Eyes: Pupils equal, round and reactive to light. ENT: Pharynx normal. No tonsillar swelling or exudate. Neck: Normal inspection. Neck supple. CVS: Normal heart rate and rhythm. Pulses normal. Respiratory: No respiratory distress. Breath sounds normal. Abdomen: Soft and nontender. +BS x4 Skin: Skin warm and dry. Normal skin color. Normal skin turgor. No rashes. Extremities: No lower extremity edema. No joint swelling. right posterior arm with moderate area of excoriation, linear areas of ecchymosis/hyperpigmentation, small <1cm open area just distal to the area Neuro/psych: awake and alert, answers simple questions. Course Course Course Narrative: This is a rapid medical exam: Additional HPI, ROS, PE not included below will be deferred to primary provider. Patient is a 70-year-old male with history DM, CAD, atrial fibrillation on Eliquis, HLD, AHF with preserved ejection fraction, NSTEMI, Alzheimer's, kidney failure, HTN presenting to the emergency department with complaint of itching to right posterior arm since last night. Family reports patient was scratching area excessively. EMS states patient did not take any of his medications today. Patient noted to have O2 sat of 90-92% on room air so patient placed on 4lpm of O2 via NC by EMS. Family denies any recent cough, fever, or worsening dyspnea. Family states he is supposed to be on home O2 but does not currently have any. Patient unable to report symptoms due to dementia. Patient admitted one month ago for acute anemia due to GI bleed, family denies any recent hematochezia or melena. Son is HCP. Plan: labs, CXR Medications Administered Discontinued Medications Generic Name Dose Route Start Last Admin Trade Name Freq PRN Reason Stop Dose Admin Triamcinolone Acetonide 1 appl 09/16/23 15:13 09/16/23 15:51 Triamcinolone Acet 0.5 % Oint 15 Gm Tube TOPICAL 09/16/23 15:14 1 appl ONCE ONE Administration Medical Decision Making Medical Decision Making [facility] Narrative: 78 yo male presenting with itchy, excoriated rash to right posterior arm that started last night. labs done given poor historian and are unremarkable. cxr w/ small pleural effusion on the left. taken off o2 and SpO2 96%, no resp distress. covid and flu negative topical steroids applied. avoiding PO prednisone given recent GI bleed/ulcer no further itching. he is at his baseline family comfortable w/ discharge home. they have appt w/ PCP 09/19 Differential Diagnosis Differential Diagnoses: The differential diagnosis associated with the presentation includes cellulitis, contact dermatitis, allergic dermatitis, vasculitis Lab Data [facility] Lab Attestation statement: I reviewed the patient's lab results. improved anemia, stable CKD 09/16/23 14:31 09/16/23 14:31 Labs: Lab Results 09/16/23 Range/Units 14:31 WBC 6.5 (4.8-10.8) X10*3/uL RBC 4.03 L (4.60-5.80) X10*6/uL Hgb 12.9 L (14.0-18.0) g/dl Hct 40.0 L (42.0-52.0) % MCV 99.3 H (80.0-98.0) fL MCH 32.0 (27.0-33.0) pg MCHC 32.3 (31.0-36.0) g/dl RDW 14.0 (11.0-16.0) % Plt Count 180 D (160-400) X10*3/uL MPV 11.1 (9.4-12.4) fL Immature Gran % (Auto) 0.3 (0.0-0.4) % Neut % (Auto) 69.3 (45-73) % Lymph % (Auto) 17.4 L (20-40) % [place] % (Auto) 9.2 (2-11) % Eos % (Auto) 3.2 (0-4) % Baso % (Auto) 0.6 (0-2) % Lymph # (Auto) 1.1 L (1.2-4.9) X10*3/uL [place] # (Auto) 0.6 (0.1-1.2) X10*3/uL Eos # (Auto) 0.2 (0.0-0.4) X10*3/uL Baso # (Auto) 0.0 (0.0-0.2) X10*3/uL Abs Immat Gran (auto) 0.02 (0.00-0.03) X10*3/uL Absolute Neuts (auto) 4.5 (2.0-8.3) x10*3/uL Absolute Nucleated RBC 0.000 (0.0-0.012) X10*3/uL Nucleated RBC % (auto) 0.0 (0.0-0.2) /100WBC PT 15.0 H D (11.1-13.3) SEC INR 1.2 H (0.9-1.1) Sodium 138 (135-145) mmol/L Potassium 5.1 D (3.3-5.1) mmol/L Chloride 98 (96-108) mmol/L Carbon Dioxide 25 (22-29) mmol/L Anion Gap 20 (12-20) BUN 26 H (9-16) mg/dL Creatinine 1.76 H (0.5-1.4) mg/dL Estim Creat Clear Calc 38.9 Estimated GFR 38 Random Glucose 306 H (60-115) mg/dL Calcium 9.5 D (8.4-10.2) mg/dL Total Bilirubin 1.0 (0.0-1.0) mg/dL AST 25 (5-37) U/L ALT 23 (0-40) U/L Alkaline Phosphatase 113 (39-117) U/L Total Protein 7.8 (6.5-8.0) g/dL Albumin 3.9 (3.5-5.0) g/dL COVID-19 (REMY) Negative (Negative) COVID-19 Clin Com See Note Influenza Type A (STEPHANIE) Negative (Negative) Influenza Type B (STEPHANIE) Negative (Negative) Influenza A & B Note See Note Independent Interpretation I performed an independent interpretation of an: Plain X-Ray Interpretation: cxr - small left pleural effusion w/ blunting of costophrenic angle Radiology Impression Discussion of test interpretation with radiology: I have reviewed the radiologist's reading. Radiologist Impression: EXAMINATION: XR CHEST CLINICAL INFORMATION: Hypoxia. COMPARISON: Chest x-ray 08/17/2023 TECHNIQUE: 2 views of the chest were obtained. FINDINGS: The lungs are well-expanded and clear of acute pneumonic process. There is focal atelectatic changes left lung base. There is a small pleural effusion. Rest of the lungs are clear. The heart size and pulmonary vascularity is normal. No gross bony abnormality is seen. XR/XR chest 2V IMPRESSION: Small left pleural effusion with underlying left lower lobe atelectasi Independent Historian Clinical information obtained from an independent historian. History obtained from or confirmed by: Other (adult children at bedside) External Record Review External record reviewed: Inpatient record, Outpatient record and Prior outpatient labs Prescription Management I considered prescription management with: Pain Medication and Antibiotic Chronic Conditions Patient?s care impacted by: Other (anemia, recent GI bleed, afib) Critical Care Time Critical Care Time Critical Care Time: No Discharge Plan Discharge Clinical Impression: Rash Patient Disposition: Home, Self-Care Instructions: Acute Rash (ED) Additional Instructions: Lab workup today was unremarkable. Recommend treating the rash with the prescribed steroid ointment. Keep the area clean and covered Change the dressing and reapply the ointment in the morning Give Benadryl 25-50 mg as needed for itching You can also try applying an ice pack when itchy Follow up with his primary care doctor If he develops new or worsening symptoms call 911 or come back to the ER for further evaluation. El an?lisis de laboratorio de hoy no fue nada especial. Se recomienda tratar la erupci?n con la pomada con esteroides prescrita. Mantenga el ?mike limpia y cubierta Camb[place] el vendaje y vuelva a aplicar la pomada por la ma?santiago. Administre Benadryl 25-50 mg seg?n sea necesario para la picaz?n Tambi?n puedes intentar aplicar amy bolsa de hielo cuando te pica. Marybel un seguimiento con fernandez m?dico de atenci?n primaria. Si desarrolla s?ntomas nuevos o que empeoran, llame al 911 o regrese a la deborah de emergencias para amy evaluaci?n adicional. Prescriptions: New triamcinolone acetonide 0.5 % ointment 1 appl topical BID Qty: 15 1RF No Action Eliquis 5 mg tablet 1 tab PO BID donepezil 10 mg tablet 1 tab PO QPM CertaVite Senior 0.4-300-250 mg-mcg-mcg tablet 1 tab PO DAILY atorvastatin [Lipitor] 40 mg tablet 40 mg PO BEDTIME Qty: 30 0RF metoprolol tartrate 100 mg tablet 100 mg PO BID memantine 10 mg tablet 10 mg PO BID magnesium oxide 250 mg magnesium tablet 250 mg PO DAILY allopurinol 100 mg tablet 0.5 tab PO DAILY acetaminophen 500 mg tablet 1 tab PO Q6H PRN (Reason: pain) carboxymethylcellulose sodium [Refresh Tears] 0.5 % drops 1 drp ophthalmic (eye) Q4-6H PRN (Reason: Dry Eye(S)) diphenhydramine HCl [Banophen] 25 mg tablet 0.5 tab PO BEDTIME PRN (Reason: Insomnia) gabapentin 600 mg tablet 1 tab PO BID (DME) lancets [Lancets,Ultra Thin] Misc See Rx Instructions .Route Qty: 100 0RF Rx Instructions: As directed ketoconazole 2 % shampoo 1 appl topical Q2W Rx Instructions: APPLY THE MORNING AFTER FLUCINOLONE OIL cetirizine 10 mg tablet 10 mg PO DAILY amlodipine 5 mg tablet 5 mg PO QAM triamcinolone acetonide 0.1 % cream 1 appl topical BID citalopram 20 mg tablet 20 mg PO BEDTIME fluocinolone 0.01 % oil 1 appl topical Q2W Rx Instructions: APPLY IN THE EVENING AND WASH WITH KETOCONAZOLE IN THE MORNING omeprazole 40 mg Capsule,Delayed Release(Dr/Ec) 40 mg PO BID@0630,1630 30 Days Qty: 60 0RF insulin glargine [Lantus U-100 Insulin] 100 unit/mL Solution 25 unit subcut BEDTIME Qty: 10 0RF sucralfate 1 gram Tablet 1 g PO QIDACHS 5 Days Qty: 20 0RF insulin lispro [Humalog KwikPen Insulin] 100 unit/mL Insulin Pen 10 unit SUBCUT TIDAC Qty: 15 0RF insulin lispro [Humalog KwikPen Insulin] 100 unit/mL insulin pen 0 sliding scale dose SUBCUT QIDACHS Qty: 15 0RF Rx Instructions: Blood Sugar: <150 - 0 units 151-200 - 2 units 201-250 - 4 units 251-300 - 6 units 301-350 - 8 units >350 - 10 units (DME) insulin syringe-needle U-100 1 mL 31 gauge x 5/16 syringe See Rx Instructions subcut TID Qty: 10 Rx Instructions: As directed bumetanide 1 mg tablet 1 mg PO BID@0900,1200 Referrals: Kathy Villafana MD [Primary Care Provider] - Interventions: ED Discharge Assessment Last Done: 09/16/23 16:10 Discharge Date/Time: 09/16/23 16:11 Print Language: Nigerian
[2023-09-16 14:15] VITALS: BP 115/75; BP 156/82; PULSE 62; PULSE 76; RESP 20; TEMP 36.2; O2SAT 95; O2SAT 96; BMI 34.5
[2023-09-16 14:36] LABS: MANUAL DIFF FLAG NO
[2023-09-16 14:41] LABS: Basophils Percent Auto 0.6 % (0-2); Eosinophils Absolute Auto 0.2 X10*3/uL (0.0-0.4); Eosinophils Percent Auto 3.2 % (0-4); Hemoglobin 12.9 g/dl (14.0-18.0); Imm Gran Abs Auto 0.02 X10*3/uL (0.00-0.03); Imm Gran Pct Auto 0.3 % (0.0-0.4); Lymphocytes Absolute Auto 1.1 X10*3/uL (1.2-4.9); Lymphocytes Percent Auto 17.4 % (20-40); Mean Corpuscular HGB Conc 32.3 g/dl (31.0-36.0); Mean Corpuscular Volume 99.3 fL (80.0-98.0); Mean Platelet Volume 11.1 fL (9.4-12.4); Monocytes Absolute Auto 0.6 X10*3/uL (0.1-1.2); Monocytes Percent Auto 9.2 % (2-11); Neutrophils Absolute Auto 4.5 x10*3/uL (2.0-8.3); Neutrophils Percent Auto 69.3 % (45-73); Platelet Count 180 X10*3/uL (160-400); Red Blood Count 4.03 X10*6/uL (4.60-5.80); White Blood Count 6.5 X10*3/uL (4.8-10.8)
[2023-09-16 14:46] LABS: INTERNATIONAL NORM RATIO 1.2 (0.9-1.1)
[2023-09-16 14:58] LABS: Alanine Aminotransferase 23 U/L (0-40); Albumin Level 3.9 g/dL (3.5-5.0); Alkaline Phosphatase 113 U/L (39-117); Anion Gap 20 (12-20); Aspartate Amino Transferase 25 U/L (5-37); Blood Urea Nitrogen 26 mg/dL (9-16); Calcium 9.5 mg/dL (8.4-10.2); Carbon Dioxide 25 mmol/L (22-29); Chloride 98 mmol/L (96-108); Creatinine Clr Calc Pharmacy 38.9; Estimated Glomerular Filt Rate 38; Glucose Random 306 mg/dL (60-115); Potassium 5.1 mmol/L (3.3-5.1); Sodium 138 mmol/L (135-145); Total Protein 7.8 g/dL (6.5-8.0)
[2023-09-16 15:03] LABS: COVID-19 Test Negative (Negative); IDNOW Serial# 08D9AD1C
[2023-09-16 15:05] LABS: IDNOW Serial# BCCEAD1C; Influenza A Negative (Negative); Influenza B2 Negative (Negative)
--- NOTE | 2023-09-16 15:28 | MHC.EDTECH ---
Brought patient a pillow.
[2023-09-16] MEDS: Triamcinolone Acet 0.5 % Oint 15 GM TUBE 1 APPL TOPICAL (15:51)
[2023-09-16 15:58] VITALS: BP 148/67; PULSE 67; RESP 16; TEMP 36.6; O2SAT 96
--- NOTE | 2023-09-16 16:04 | PC.NURSE ---
ointment applied to R upper arm followed by non adhesive gauze then wrapped with roll gauze for protection. pt tolerated well. daughter given instructions on care.
--- NOTE | 2023-09-16 16:08 | PC.NURSE ---
pt cleared for discharge. discharge instructions reviewed with pt and family at bedside. pt left via wheelchair, family vehicle. vss
== END 2023-09-16 16:11 | disposition home or self-care (01) ==
PROVIDERS: Registered Nurse Emergency; Emergency Provider Emergency Medicine; PCP General Practice
DX: L50.0 Allergic urticaria (principal); R09.02 Hypoxemia; Z11.52 Encounter for screening for COVID-19; Z20.822 Contact with and (suspected) exposure to COVID-19; Z79.899 Other long term (current) drug therapy
CPT/HCPCS: 36415; 71046; 80053; 85025; 85610; 87502; 87635; 99283

== ENCOUNTER 2023-10-08 14:15 | Outpatient (REF) | payer MEDICARE, SELFPAY ==
[2023-10-08 16:34] LABS: Anion Gap 18 (12-20); Blood Urea Nitrogen 35 mg/dL (9-16); Calcium 9.2 mg/dL (8.4-10.2); Carbon Dioxide 30 mmol/L (22-29); Chloride 94 mmol/L (96-108); Estimated Glomerular Filt Rate 29; Phosphorus 4.3 mg/dL (2.7-4.5); Potassium 4.7 mmol/L (3.3-5.1); Sodium 137 mmol/L (135-145)
[2023-10-08 16:51] LABS: Vitamin D 25-OH Total 44.6 ng/mL (>30)
[2023-10-09 16:29] LABS: PTHI 114 pg/mL (16-77)
== END 2023-10-08 14:16 | disposition home or self-care (01) ==
LOC: HO.HHCL 14:15
PROVIDERS: Visit Provider Student in an Organized Health Care Education/Training Program
DX: I12.9 Hypertensive chronic kidney disease with stage 1 through stage 4 chronic kidney disease, or unspecified chronic kidney disease (principal); E11.22 Type 2 diabetes mellitus with diabetic chronic kidney disease; N18.32 Chronic kidney disease, stage 3b; E83.9 Disorder of mineral metabolism, unspecified
CPT/HCPCS: 36415; 80051; 82306; 82310; 82565; 83970; 84100; 84520

== ENCOUNTER 2023-10-11 15:10 | Outpatient (REF) | payer MEDICARE, SELFPAY ==
[2023-10-11 17:04] LABS: Creatinine Urine 106.82 mg/dL; Protein/Creatinine Ratio, Ur 0.27 (<0.2); Total Protein Urine Random 29 mg/dL (<12)
== END 2023-10-11 15:11 | disposition home or self-care (01) ==
LOC: HO.HHCLNP 15:10
PROVIDERS: Visit Provider Student in an Organized Health Care Education/Training Program
DX: E11.21 Type 2 diabetes mellitus with diabetic nephropathy (principal); E11.22 Type 2 diabetes mellitus with diabetic chronic kidney disease; I12.9 Hypertensive chronic kidney disease with stage 1 through stage 4 chronic kidney disease, or unspecified chronic kidney disease; N18.32 Chronic kidney disease, stage 3b; N18.9 Chronic kidney disease, unspecified
CPT/HCPCS: 82570; 84156

== ENCOUNTER 2023-11-12 16:47 | Emergency (ER) | payer MEDICARE, SELFPAY ==
--- NOTE | ~2023-11-12 | XR_ITS ---
EXAMINATION: XR CHEST CLINICAL INFORMATION: Shortness of breath COMPARISON: 09/16/2023 TECHNIQUE: Frontal view of the chest was obtained. FINDINGS: No significant abnormality is noted involving the heart, lungs, mediastinum, bony thorax or soft tissues. Previously seen left-sided pleural effusion and small left lower lobe infiltrate has resolved. Probable subpleural fat on the right. XR/XR chest 1V IMPRESSION: No acute intrathoracic disease.
[2023-11-12 17:11] VITALS: BP 138/70; PULSE 85; O2SAT 97
[2023-11-12 17:13] VITALS: BMI 27.3
--- NOTE | 2023-11-12 17:16 | ED.GENADULT ---
HPI - General Adult General Chief complaint: Weakness Stated complaint: WEAKNESS SOB DEMENTIA NON VERBAL Time Seen by Provider: 11/12/23 17:08 Source: patient, family and EMS Mode of arrival: EMS Limitations: altered mental status History of Present Illness HPI narrative: 78-year-old male with history of atrial fibrillation on Eliquis, Alzheimer's dementia, diabetes, HFpEF , CAD, upper GI bleed status post clip 08/18 comes here as for last 2 days with feeling little off coughing other family member also sick with same, noted to have temperature of 100.1 , was saturating 88% when EMS reached patient feel weak and had difficulty in walking more than usual Related Data Home Medications Medication Instructions Recorded Confirmed apixaban 5 mg tablet (Eliquis) 1 tab PO BID 09/05/21 08/17/23 donepezil 10 mg tablet 1 tab PO QPM 09/05/21 08/17/23 jiumxhlf-qeu-fnves acid 0.4 1 tab PO DAILY 09/05/21 08/17/23 mg-lycopene 300 mcg-lutein 250 mcg tablet (CertaVite Senior) acetaminophen 500 mg tablet 1 tab PO Q6H PRN pain 10/07/21 08/17/23 allopurinol 100 mg tablet 0.5 tab PO DAILY gout pain 10/07/21 08/17/23 carboxymethylcellulose sodium 0.5 1 drp ophthalmic (eye) Q4-6H PRN 10/07/21 08/17/23 % eye drops (Refresh Tears) Dry Eye(S) diphenhydramine HCl 25 mg tablet 0.5 tab PO BEDTIME PRN Insomnia 10/07/21 08/17/23 (Banophen) gabapentin 600 mg tablet 1 tab PO BID 10/17/21 08/17/23 insulin syringe-needle U-100 1 mL #10 ea 12/22/21 05/08/22 31 gauge x /16 bumetanide 1 mg tablet 1 mg PO BID@0900,1200 05/08/22 08/22/23 magnesium oxide 250 mg PO DAILY 05/08/22 08/17/23 memantine 10 mg tablet 10 mg PO BID 05/08/22 08/17/23 metoprolol tartrate 100 mg tablet 100 mg PO BID 05/08/22 08/17/23 amlodipine 5 mg tablet 5 mg PO QAM 08/17/23 08/17/23 cetirizine 10 mg tablet 10 mg PO DAILY congestion 08/17/23 08/17/23 citalopram 20 mg tablet 20 mg PO BEDTIME 08/17/23 08/17/23 fluocinolone 0.01 % topical body 1 appl topical Q2W 08/17/23 08/17/23 oil ketoconazole 2 % shampoo 1 appl topical Q2W 08/17/23 08/17/23 triamcinolone acetonide 0.1 % 1 appl topical BID 08/17/23 08/17/23 topical cream Previous Rx's Medication Instructions Recorded atorvastatin 40 mg tablet (Lipitor) 40 mg PO BEDTIME #30 tabs 09/09/21 lancets (Lancets,Ultra Thin) #100 ea 10/21/21 insulin glargine 100 unit/mL 25 unit (0.25 mL) subcut BEDTIME 08/24/23 subcutaneous solution (Lantus #10 mL U-100 Insulin) insulin lispro 100 unit/mL 0 sliding scale dose subcut 08/24/23 subcutaneous pen (Humalog KwikPen QIDACHS #15 mL (U-100) Insulin) insulin lispro 100 unit/mL 10 unit (0.1 mL) subcut TIDAC #15 08/24/23 subcutaneous pen (Humalog KwikPen mL (U-100) Insulin) omeprazole 40 mg capsule,delayed 40 mg PO BID@0630,1630 30 days #60 08/24/23 release caps sucralfate 1 gram tablet 1 g PO QIDACHS 5 days #20 tabs 08/24/23 triamcinolone acetonide 0.5 % 1 appl topical BID #15 grams 09/16/23 topical ointment benzonatate 200 mg capsule 200 mg PO TID PRN cough #30 caps 11/12/23 Allergies Allergy/AdvReac Type Severity Reaction Status Date / Time No Known Allergies Allergy Verified 12/22/21 15:24 Review of Systems Review of Systems: Yes Unobtainable due to mental status PMFSH Past Medical History Medical History CAD (coronary artery disease) Trash foot Diabetic foot infection Heart failure with preserved ejection fraction HLD (hyperlipidemia) Diabetes mellitus Atrial fibrillation NSTEMI (non-ST elevated myocardial infarction) Alzheimer's dementia Kidney failure Diabetes HTN (hypertension) Surgical History No pertinent past surgical history Family History Family History Father No problems noted. Mother No problems noted. Social History Social History Household Members: Family Housing: Apartment Do you presently have visiting nurse or other home services: No Alcohol intake: never Patient Tobacco Use Status: Never used Tobacco Smoked in Last 30 Days: No e-Cigarette/Vaping Use: Never Used Second Hand Smoke Exposure: No Use of substances other than those prescribed or required for medical reasons: No Advance Directives: Yes Advance Directives on File: Yes Advance Directives Date on File: 09/06/21 service: No Current occupational status: retired Physical Exam ED Vital Signs: Vital Signs - 24 hr 11/12/23 17:19 11/12/23 17:41 11/12/23 19:52 Temperature 98.8 F 100.1 F 98.5 F Pulse Rate 78 82 80 Respiratory Rate 16 16 16 Blood Pressure 111/57 L 142/69 H 120/43 L Pulse Oximetry 100 98 97 Oxygen Delivery Method Room Air Nasal Cannula Room Air Oxygen Flow Rate 2 BMI result Body Mass Index 27.3 Appearance: Alert. Oriented X1-2 No acute distress. febrile to touch Eyes: PERRLA, No Nystagmus ENT: Pharynx normal. Oral Mucosa moist Neck: Normal inspection. Neck supple. CVS: Irregularly irregular heart rate no murmur rub or gallop. Pulses normal. Respiratory: No respiratory distress. Equal air entry bilateral, no wheezing/rales/rhonchi Abdomen: Soft and nontender. Bowel sounds are present, no mass palpable, no CVA tenderness Skin: Skin warm and dry. Normal skin color. Normal skin turgor. Extremities:2+ lower extremity edema. No calf tenderness Neuro: Oriented X 2 moving all 4 Medications Administered Discontinued Medications Generic Name Dose Route Start Last Admin Trade Name Freq PRN Reason Stop Dose Admin Acetaminophen 650 mg 11/12/23 17:38 11/12/23 20:12 Acetaminophen 325 Mg Tablet PO 11/12/23 17:39 650 mg ONCE ONE Administration Medical Decision Making Medical Decision Making MDM Narrative: Patient with COVID positive saturating 95% on room air chest x-ray negative for any infiltrate other family member sick patient feels safe to go home at this time follow up as outpatient Differential Diagnosis Differential Diagnoses: The differential diagnosis associated with the presentation includes COVID/pneumonia/CHF/UTI/metabolic Admission/Observation Consideration of admission/observation: Escalation of care including admission/observation considered Lab Data [facility] Lab Attestation statement: I reviewed the patient's lab results. 11/12/23 18:38 11/12/23 18:38 Labs: Lab Results 11/12/23 11/12/23 11/12/23 Range/Units 18:19 18:38 18:39 WBC 6.2 (4.8-10.8) X10*3/uL RBC 3.64 L (4.60-5.80) X10*6/uL Hgb 11.3 L (14.0-18.0) g/dl Hct 34.9 L (42.0-52.0) % MCV 95.9 (80.0-98.0) fL MCH 31.0 (27.0-33.0) pg MCHC 32.4 (31.0-36.0) g/dl RDW 14.5 (11.0-16.0) % Plt Count 145 L (160-400) X10*3/uL MPV 11.5 (9.4-12.4) fL Immature Gran % (Auto) 1.1 H (0.0-0.4) % Neut % (Auto) 65.2 (45-73) % Lymph % (Auto) 16.4 L (20-40) % [place] % (Auto) 16.2 H (2-11) % Eos % (Auto) 0.6 (0-4) % Baso % (Auto) 0.5 (0-2) % Lymph # (Auto) 1.0 L (1.2-4.9) X10*3/uL [place] # (Auto) 1.0 (0.1-1.2) X10*3/uL Eos # (Auto) 0.0 (0.0-0.4) X10*3/uL Baso # (Auto) 0.0 (0.0-0.2) X10*3/uL Abs Immat Gran (auto) 0.07 H (0.00-0.03) X10*3/uL Absolute Neuts (auto) 4.0 (2.0-8.3) x10*3/uL Absolute Nucleated RBC 0.000 (0.0-0.012) X10*3/uL Nucleated RBC % (auto) 0.0 (0.0-0.2) /100WBC PT 16.5 H (11.1-13.3) SEC INR 1.4 H (0.9-1.1) Sodium 138 (135-145) mmol/L Potassium 4.6 (3.3-5.1) mmol/L Chloride 97 (96-108) mmol/L Carbon Dioxide 31 H (22-29) mmol/L Anion Gap 15 (12-20) BUN 27 H (9-16) mg/dL Creatinine 1.83 H (0.5-1.4) mg/dL Estim Creat Clear Calc 33.2 Estimated GFR 36 Random Glucose 256 H (60-115) mg/dL Lactic Acid 1.5 (0.5-2.0) mmol/L Calcium 8.6 D (8.4-10.2) mg/dL Magnesium 2.4 (1.6-2.6) mg/dL Total Bilirubin 0.6 (0.0-1.0) mg/dL AST 29 (5-37) U/L ALT 19 (0-40) U/L Alkaline Phosphatase 105 (39-117) U/L Troponin I High Sens 19.6 D (<3.5-35.0) ng/L B-Natriuretic Peptide 496 H (<100) pg/mL Total Protein 7.0 (6.5-8.0) g/dL Albumin 3.5 (3.5-5.0) g/dL Influenza Type A (PCR) NEGATIVE (Negative) Influenza Type B (PCR) NEGATIVE (Negative) RSV RNA Qual (PCR) NEGATIVE (Negative) SARS-CoV-2 RNA (RT-PCR) POSITIVE A (Negative) Independent Interpretation I performed an independent interpretation of an: EKG and Plain X-Ray Interpretation: Atrial fibrillation with ventricular rate 74 beats per minute nonspecific ST T wave changes no acute ST elevation no acute ischemia Radiology Impression Discussion of test interpretation with radiology: I have reviewed the radiologist's reading. Radiologist Impression: [id number] [place] [address] XRay Report Signed Patient: Dayton Oquendo MR#: [id number] : 1945 Acct:[id number] Age/Sex: 78 / M ADM Date: 11/12/23 Loc: .ED Attending Dr: Ordering Physician: Josef Lundberg MD Date of Service: 11/12/23 Procedure(s): XR chest 1V Accession Number(s): [id number] cc: Kathy Villafana; Josef Lundberg MD~ EXAMINATION: XR CHEST CLINICAL INFORMATION: Shortness of breath COMPARISON: 09/16/2023 TECHNIQUE: Frontal view of the chest was obtained. FINDINGS: No significant abnormality is noted involving the heart, lungs, mediastinum, bony thorax or soft tissues. Previously seen left-sided pleural effusion and small left lower lobe infiltrate has resolved. Probable subpleural fat on the right. XR/XR chest 1V IMPRESSION: No acute intrathoracic disease. Discharge Plan Discharge Clinical Impression: COVID-19 Patient Disposition: Home, Self-Care Instructions: COVID-19 (Coronavirus Disease 2019) (ED) Additional Instructions: Drink plenty of fluids Cough drops as prescribed Report to the ED if increased shortness of breath Beber mucho l?quido [place] para la tos seg?n lo prescrito Informe al servicio de urgencias si aumenta la dificultad para respirar. Prescriptions: New benzonatate 200 mg capsule 200 mg PO TID PRN (Reason: cough) Qty: 30 0RF No Action Eliquis 5 mg tablet 1 tab PO BID donepezil 10 mg tablet 1 tab PO QPM CertaVite Senior 0.4-300-250 mg-mcg-mcg tablet 1 tab PO DAILY atorvastatin [Lipitor] 40 mg tablet 40 mg PO BEDTIME Qty: 30 0RF metoprolol tartrate 100 mg tablet 100 mg PO BID memantine 10 mg tablet 10 mg PO BID magnesium oxide 250 mg magnesium tablet 250 mg PO DAILY allopurinol 100 mg tablet 0.5 tab PO DAILY acetaminophen 500 mg tablet 1 tab PO Q6H PRN (Reason: pain) carboxymethylcellulose sodium [Refresh Tears] 0.5 % drops 1 drp ophthalmic (eye) Q4-6H PRN (Reason: Dry Eye(S)) diphenhydramine HCl [Banophen] 25 mg tablet 0.5 tab PO BEDTIME PRN (Reason: Insomnia) gabapentin 600 mg tablet 1 tab PO BID (DME) lancets [Lancets,Ultra Thin] Misc See Rx Instructions .Route Qty: 100 0RF Rx Instructions: As directed ketoconazole 2 % shampoo 1 appl topical Q2W Rx Instructions: APPLY THE MORNING AFTER FLUCINOLONE OIL cetirizine 10 mg tablet 10 mg PO DAILY amlodipine 5 mg tablet 5 mg PO QAM triamcinolone acetonide 0.1 % cream 1 appl topical BID citalopram 20 mg tablet 20 mg PO BEDTIME fluocinolone 0.01 % oil 1 appl topical Q2W Rx Instructions: APPLY IN THE EVENING AND WASH WITH KETOCONAZOLE IN THE MORNING omeprazole 40 mg Capsule,Delayed Release(Dr/Ec) 40 mg PO BID@0630,1630 30 Days Qty: 60 0RF insulin glargine [Lantus U-100 Insulin] 100 unit/mL Solution 25 unit subcut BEDTIME Qty: 10 0RF sucralfate 1 gram Tablet 1 g PO QIDACHS 5 Days Qty: 20 0RF insulin lispro [Humalog KwikPen Insulin] 100 unit/mL Insulin Pen 10 unit SUBCUT TIDAC Qty: 15 0RF insulin lispro [Humalog KwikPen Insulin] 100 unit/mL insulin pen 0 sliding scale dose SUBCUT QIDACHS Qty: 15 0RF Rx Instructions: Blood Sugar: <150 - 0 units 151-200 - 2 units 201-250 - 4 units 251-300 - 6 units 301-350 - 8 units >350 - 10 units triamcinolone acetonide 0.5 % ointment 1 appl topical BID Qty: 15 1RF (DME) insulin syringe-needle U-100 1 mL 31 gauge x 5/16 syringe See Rx Instructions subcut TID Qty: 10 Rx Instructions: As directed bumetanide 1 mg tablet 1 mg PO BID@0900,1200 Print Language: Finnish
[2023-11-12 17:19] VITALS: BP 111/57; PULSE 78; RESP 16; TEMP 37.1; O2SAT 100
--- NOTE | 2023-11-12 17:29 | ECG_ITS ---
Test Reason : SOB Blood Pressure : / mmHG Vent. Rate : 074 BPM Atrial Rate : 000 BPM P-R Int : 000 ms QRS Dur : 082 ms QT Int : 242 ms P-R-T Axes : 000 078 190 degrees QTc Int : 268 ms Atrial fibrillation Nonspecific ST and T wave abnormality Abnormal ECG When compared with ECG of 19-AUG-2023 08:28, Vent. rate has decreased BY 54 BPM Borderline criteria for Anterolateral infarct are no longer Present Borderline criteria for Inferior infarct are no longer Present ST no longer depressed in Inferior leads Nonspecific T wave abnormality now evident in Anterior leads Referred By: Josef Lundberg Electronically Signed By:PANKAJ BRASWELL MD
[2023-11-12 17:41] VITALS: BP 142/69; PULSE 82; RESP 16; TEMP 37.8; O2SAT 98
--- NOTE | 2023-11-12 18:45 | PC.NURSE ---
pt difficult stick. attempted for IV multiple times with no luck. Dr. Pickens placed 20G IV to LAC with ultrasound. labs drawn and sent. pt alert delayed responses. pt son at bedside sts pt is at baseline since stroke 2 years ago, just seems more weak than normal. pt resting quietly on stretcher in no apparent distress. rr even/unlabored. pt on 2L O2 via NC sating 98%. call gamez within reach. plan of care ongoing.
[2023-11-12 18:46] LABS: MANUAL DIFF FLAG NO
[2023-11-12 18:48] LABS: Basophils Percent Auto 0.5 % (0-2); Eosinophils Percent Auto 0.6 % (0-4); Hematocrit 34.9 % (42.0-52.0); Hemoglobin 11.3 g/dl (14.0-18.0); Imm Gran Abs Auto 0.07 X10*3/uL (0.00-0.03); Imm Gran Pct Auto 1.1 % (0.0-0.4); Lymphocytes Percent Auto 16.4 % (20-40); Mean Corpuscular HGB Conc 32.4 g/dl (31.0-36.0); Mean Corpuscular Volume 95.9 fL (80.0-98.0); Mean Platelet Volume 11.5 fL (9.4-12.4); Monocytes Percent Auto 16.2 % (2-11); Neutrophils Percent Auto 65.2 % (45-73); Platelet Count 145 X10*3/uL (160-400); Red Blood Count 3.64 X10*6/uL (4.60-5.80); Red Cell Distribution Width 14.5 % (11.0-16.0); White Blood Count 6.2 X10*3/uL (4.8-10.8)
[2023-11-12 18:53] LABS: INTERNATIONAL NORM RATIO 1.4 (0.9-1.1); Prothrombin Time 16.5 SEC (11.1-13.3)
[2023-11-12 18:57] LABS: Lactic Acid 1.5 mmol/L (0.5-2.0)
[2023-11-12 19:01] LABS: Alanine Aminotransferase 19 U/L (0-40); Albumin Level 3.5 g/dL (3.5-5.0); Alkaline Phosphatase 105 U/L (39-117); Anion Gap 15 (12-20); Aspartate Amino Transferase 29 U/L (5-37); Bilirubin Total 0.6 mg/dL (0.0-1.0); Blood Urea Nitrogen 27 mg/dL (9-16); Calcium 8.6 mg/dL (8.4-10.2); Carbon Dioxide 31 mmol/L (22-29); Chloride 97 mmol/L (96-108); Creatinine Clr Calc Pharmacy 33.2; Estimated Glomerular Filt Rate 36; Glucose Random 256 mg/dL (60-115); Magnesium 2.4 mg/dL (1.6-2.6); Potassium 4.6 mmol/L (3.3-5.1); Sodium 138 mmol/L (135-145)
[2023-11-12 19:02] LABS: Influenza A PCR NEGATIVE (Negative); Influenza B PCR NEGATIVE (Negative); Resp Syncy Virus RNA Qual PCR NEGATIVE (Negative); SARS COV2 PCR INHOUSE POSITIVE (Negative)
[2023-11-12 19:06] LABS: B Type Natriuretic Peptide 496 pg/mL (<100)
[2023-11-12 19:08] LABS: Troponin-I High Sensitivity 19.6 ng/L (<3.5-35.0)
[2023-11-12 19:52] VITALS: BP 120/43; PULSE 80; RESP 16; TEMP 36.9; O2SAT 97
--- NOTE | 2023-11-12 20:11 | PC.NURSE ---
delay in medication administration due to previous shift.
[2023-11-12] MEDS: Acetaminophen 325 MG TABLET 650 MG PO (20:12)
--- NOTE | 2023-11-12 20:53 | PC.NURSE ---
pt ambulated with steady gait a this time. family at bedside.
== END 2023-11-12 20:54 | disposition home or self-care (01) ==
PROVIDERS: Emergency Provider Internal Medicine; PCP General Practice
DX: U07.1 COVID-19 (principal); R06.02 Shortness of breath; F03.90 Unspecified dementia, unspecified severity, without behavioral disturbance, psychotic disturbance, mood disturbance, and anxiety; I48.91 Unspecified atrial fibrillation; Z79.01 Long term (current) use of anticoagulants; Z79.899 Other long term (current) drug therapy
CPT/HCPCS: 0241U; 36415; 71045; 80053; 83605; 83735; 83880; 84484; 85025; 85610; 87040; 93005; 99283; 99285

== ENCOUNTER → 2023-11-12 17:29 | Outpatient (BNV) | payer MEDICARE, SELFPAY | PROVIDERS: Emergency Provider Internal Medicine; PCP General Practice; Visit Provider Internal Medicine Cardiovascular Disease | DX: I48.91 Unspecified atrial fibrillation (principal) | CPT/HCPCS: 93010 ==

== ENCOUNTER 2024-02-20 14:58 | Outpatient (REF) | payer MEDICARE, SELFPAY ==
[2024-02-20 16:43] LABS: Anion Gap 18 (12-20); Blood Urea Nitrogen 35 mg/dL (9-16); Calcium 9.5 mg/dL (8.4-10.2); Carbon Dioxide 27 mmol/L (22-29); Chloride 99 mmol/L (96-108); Cholesterol 159 mg/dL (<200); Estimated Glomerular Filt Rate 35; Glucose Random 244 mg/dL (60-115); HDL Cholesterol 44 mg/dL (>40); LDL Cholesterol Calculated 78 mg/dL (<100); Potassium 4.5 mmol/L (3.3-5.1); Sodium 139 mmol/L (135-145); Triglycerides 186 mg/dL (<150)
[2024-02-21 06:50] LABS: ~HepC Num1 0.24 S/CO (0.00-0.79); ~Hepatitis C Antibody Nonreactive (Nonreactive)
== END 2024-02-20 14:59 | disposition home or self-care (01) ==
LOC: HO.HHCL 14:58
PROVIDERS: Visit Provider General Practice
DX: E11.40 Type 2 diabetes mellitus with diabetic neuropathy, unspecified (principal); Z79.4 Long term (current) use of insulin
CPT/HCPCS: 36415; 80048; 80061; 86803

== ENCOUNTER 2024-05-16 22:19 | Inpatient (IN) | payer OTHER, SELFPAY ==
--- NOTE | ~2024-05-16 | XR_ITS ---
EXAMINATION: XR CHEST CLINICAL INFORMATION: Fever. COMPARISON: 11/12/2023. TECHNIQUE: Frontal view of the chest was obtained. FINDINGS: The cardiomediastinal silhouette is stable. There is blunting of the left costophrenic angle/pleural thickening. The lungs are otherwise clear. The bony structures and soft tissues are unremarkable. XR/XR chest 1V IMPRESSION: Blunting of the left costophrenic angle/pleural thickening. This could be related to a small pleural effusion versus chronic pleural change. No other significant abnormality seen.
--- NOTE | ~2024-05-16 | CT_ITS ---
EXAMINATION: CT ABDOMEN AND PELVIS WITHOUT CONTRAST CLINICAL INFORMATION: Fever. Lactic acidosis. COMPARISON: None available. TECHNIQUE: Multidetector volumetric imaging was performed from the superior aspect of the liver through the pubic symphysis. Sagittal and coronal reformatted images were obtained on the technologist's workstation. This CT examination was performed using dose optimization techniques as appropriate, variously including the following: *Automated exposure control *Adjustment of mA and/or kV according to patient size (this includes techniques or standardized protocols for targeted exams where dose is matched to indication/reason for exam; i.e. extremities or head) *Use of iterative reconstruction technique DLP: 911 mGy-cm FINDINGS: LUNG BASES: There is dependent change at the lung bases. LIVER, GALLBLADDER, AND BILIARY TREE: The liver is normal in size, shape, and attenuation. No focal hepatic lesion or biliary ductal dilatation is present. The gallbladder is unremarkable with no evidence of radiopaque gallstones, gallbladder wall thickening, or obvious pericholecystic inflammatory changes. PANCREAS: Atrophic. SPLEEN: Unremarkable. ADRENAL GLANDS: Unremarkable. KIDNEYS AND URETERS: The kidneys are normal in size, shape, and attenuation. No hydronephrosis, hydroureter, or calculi seen. No perinephric stranding. BLADDER: Unremarkable. GASTROINTESTINAL TRACT: There is retained stool throughout the colon particularly within the rectum with rectal expansion up to 9.3 cm in rectal thickening. The appendix is visualized and is within normal limits. ABDOMINAL WALL: No significant hernia is appreciated. LYMPH NODES: Normal. VASCULAR: Unremarkable. PELVIC VISCERA: Unremarkable. OSSEOUS STRUCTURES: Diffuse [id number] thoracolumbar degenerative change. CT/CT abdomen pelvis wo IV con IMPRESSION: 1. There is retained stool throughout the colon particularly within the rectum with rectal expansion up to 9.3 cm and rectal wall thickening. 2. No other evidence of bowel obstruction. 3. The appendix is visualized and is within normal limits. 4. No evidence of renal or ureteral stone or obstruction. Fleischner guidelines were followed.
[2024-05-16 22:23] VITALS: BP 132/80; PULSE 71; O2SAT 94
[2024-05-16 22:30] VITALS: BP 126/66; PULSE 67; RESP 17; TEMP 36.8; O2SAT 94; BMI 38.7
[2024-05-16 22:34] VITALS: BP 126/66; PULSE 67; RESP 18; TEMP 38.1; O2SAT 95
[2024-05-16 22:34] LABS: Glucose, Whole Blood 325 mg/dL (60-115)
[2024-05-16 23:07] LABS: Basophils Absolute Auto 0.1 X10*3/uL (0.0-0.2); Basophils Percent Auto 0.6 % (0-2); Eosinophils Absolute Auto 0.1 X10*3/uL (0.0-0.4); Eosinophils Percent Auto 1.2 % (0-4); Hematocrit 37.8 % (42.0-52.0); Hemoglobin 12.7 g/dl (14.0-18.0); Imm Gran Abs Auto 0.03 X10*3/uL (0.00-0.03); Imm Gran Pct Auto 0.3 % (0.0-0.4); Lymphocytes Absolute Auto 1.3 X10*3/uL (1.2-4.9); Lymphocytes Percent Auto 12.9 % (20-40); MANUAL DIFF FLAG NO; Mean Corpuscular HGB Conc 33.6 g/dl (31.0-36.0); Mean Corpuscular Hemoglobin 30.6 pg (27.0-33.0); Mean Corpuscular Volume 91.1 fL (80.0-98.0); Mean Platelet Volume 11.4 fL (9.4-12.4); Monocytes Absolute Auto 0.8 X10*3/uL (0.1-1.2); Monocytes Percent Auto 8.2 % (2-11); Neutrophils Absolute Auto 7.6 x10*3/uL (2.0-8.3); Neutrophils Percent Auto 76.8 % (45-73); Platelet Count 201 X10*3/uL (160-400); Red Blood Count 4.15 X10*6/uL (4.60-5.80); Red Cell Distribution Width 14.5 % (11.0-16.0); White Blood Count 9.9 X10*3/uL (4.8-10.8)
[2024-05-16 23:21] LABS: Lactic Acid 4.3 mmol/L (0.5-2.0)
[2024-05-16 23:22] LABS: Alanine Aminotransferase 17 U/L (0-40); Alkaline Phosphatase 112 U/L (39-117); Anion Gap 17 (12-20); Aspartate Amino Transferase 22 U/L (5-37); Bilirubin Total 0.5 mg/dL (0.0-1.0); Blood Urea Nitrogen 35 mg/dL (9-16); Calcium 9.2 mg/dL (8.4-10.2); Carbon Dioxide 26 mmol/L (22-29); Chloride 96 mmol/L (96-108); Creatinine Clr Calc Pharmacy 36.4; Estimated Glomerular Filt Rate 31; Glucose Random 341 mg/dL (60-115); Potassium 4.3 mmol/L (3.3-5.1); Sodium 135 mmol/L (135-145); Total Protein 7.8 g/dL (6.5-8.0)
--- NOTE | 2024-05-16 23:23 | ED_ITS ---
HPI - Weakness General Chief complaint: Weakness Stated complaint: Dizzy, chills, general weakness, BGL of 441 Time Seen by Provider: 05/16/24 23:21 Source: patient and family Mode of arrival: EMS Limitations: altered mental status History of Present Illness ED Provider: benjamin LOPES Narrative: Patient is 79 years old with history of dementia, AFib on Eliquis, diabetes mellitus, CHF, hypotension, CKD stage 3 lives with his daughter who noticed the patient is not eating much for last 24 hours feeling more lethargic and sleepy felt very dizzy earlier almost passed out having lot of chills occasional cough no fever at home no other family member sick Related Data Home Medications ?Medication ?Instructions ?Recorded ?Confirmed apixaban 5 mg tablet (Eliquis) 1 tab PO BID 09/05/21 08/17/23 donepezil 10 mg tablet 1 tab PO QPM 09/05/21 08/17/23 tbxapigx-aia-fsbjj acid 0.4 1 tab PO DAILY 09/05/21 08/17/23 mg-lycopene 300 mcg-lutein 250 mcg tablet (CertaVite Senior) acetaminophen 500 mg tablet 1 tab PO Q6H PRN pain 10/07/21 08/17/23 allopurinol 100 mg tablet 0.5 tab PO DAILY gout pain 10/07/21 08/17/23 carboxymethylcellulose sodium 0.5 1 drp ophthalmic (eye) Q4-6H PRN 10/07/21 08/17/23 % eye drops (Refresh Tears) Dry Eye(S) diphenhydramine HCl 25 mg tablet 0.5 tab PO BEDTIME PRN Insomnia 10/07/21 08/17/23 (Banophen) gabapentin 600 mg tablet 1 tab PO BID 10/17/21 08/17/23 insulin syringe-needle U-100 1 mL #10 ea 12/22/21 05/08/22 31 gauge x 5/16 bumetanide 1 mg tablet 1 mg PO BID@0900,1200 05/08/22 08/22/23 magnesium oxide 250 mg PO DAILY 05/08/22 08/17/23 memantine 10 mg tablet 10 mg PO BID 05/08/22 08/17/23 metoprolol tartrate 100 mg tablet 100 mg PO BID 05/08/22 08/17/23 amlodipine 5 mg tablet 5 mg PO QAM 08/17/23 08/17/23 cetirizine 10 mg tablet 10 mg PO DAILY congestion 08/17/23 08/17/23 citalopram 20 mg tablet 20 mg PO BEDTIME 08/17/23 08/17/23 fluocinolone 0.01 % topical body 1 appl topical Q2W 08/17/23 08/17/23 oil ketoconazole 2 % shampoo 1 appl topical Q2W 08/17/23 08/17/23 triamcinolone acetonide 0.1 % 1 appl topical BID 08/17/23 08/17/23 topical cream Previous Rx's ?Medication ?Instructions ?Recorded atorvastatin 40 mg tablet (Lipitor) 40 mg PO BEDTIME #30 tabs 09/09/21 lancets (Lancets,Ultra Thin) #100 ea 10/21/21 insulin glargine 100 unit/mL 25 unit (0.25 mL) subcut BEDTIME 08/24/23 subcutaneous solution (Lantus #10 mL U-100 Insulin) insulin lispro 100 unit/mL 0 sliding scale dose subcut 08/24/23 subcutaneous pen (Humalog KwikPen QIDACHS #15 mL (U-100) Insulin) insulin lispro 100 unit/mL 10 unit (0.1 mL) subcut TIDAC #15 08/24/23 subcutaneous pen (Humalog KwikPen mL (U-100) Insulin) omeprazole 40 mg capsule,delayed 40 mg PO BID@0630,1630 30 days #60 08/24/23 release caps sucralfate 1 gram tablet 1 g PO QIDACHS 5 days #20 tabs 08/24/23 triamcinolone acetonide 0.5 % 1 appl topical BID #15 grams 09/16/23 topical ointment benzonatate 200 mg capsule 200 mg PO TID PRN cough #30 caps 11/12/23 Allergies Allergy/AdvReac Type Severity Reaction Status Date / Time No Known Allergies Allergy Verified 05/16/24 22:33 Review of Systems 2 Review of Systems: Yes all other systems are reviewed and are negative PMFSH Past Medical History Attestation statement: The following information was validated with the patient. Medical History CAD (coronary artery disease) Trash foot Diabetic foot infection Heart failure with preserved ejection fraction HLD (hyperlipidemia) Diabetes mellitus Atrial fibrillation NSTEMI (non-ST elevated myocardial infarction) Alzheimer's dementia Kidney failure Diabetes HTN (hypertension) Surgical History No pertinent past surgical history Family History Family History Father No problems noted. Mother No problems noted. Social History Social History Household Members: Family Housing: Apartment Do you presently have visiting nurse or other home services: No Alcohol intake: never Patient Tobacco Use Status: Never used Tobacco Smoked in Last 30 Days: No e-Cigarette/Vaping Use: Never Used Second Hand Smoke Exposure: No Advance Directives: Yes Advance Directives on File: Yes Advance Directives Date on File: 09/06/21 Do you have a plan to hurt others: No Plan service: No Current occupational status: retired Physical Exam 2 Vital Signs: Vital Signs: Last Vital Signs Temp 97.6 F 05/17/24 06:12 Pulse 59 05/17/24 06:12 Resp 14 05/17/24 06:12 BP 150/80 H 05/17/24 06:12 Pulse Ox 97 05/17/24 06:12 O2 Del Method Room Air 05/17/24 06:12 BMI result Body Mass Index 38.7 Appearance: Lethargic abese. No acute distress. Eyes: No pallor or icterus ENT: Pharynx normal. Oral Mucosa dry Neck: Normal inspection. Neck supple. CVS: Irregularly irregular heart rate Pulses normal. Respiratory: No respiratory distress. Equal air entry bilateral, no wheezing/rales/rhonchi Abdomen: Soft and nontender. Bowel sounds are present, no mass palpable, no CVA tenderness Skin: Skin warm and dry. Normal skin color. Normal skin turgor. Extremities: No lower extremity edema. No calf tenderness Neuro: Oriented X 3. No motor deficit. No sensory deficit.No cerebellar signs , cranial nerves II-XII intact Medications Administered Generic Name Dose Route Start Last Admin Trade Name Freq PRN Reason Stop Dose Admin Insulin Glargine 18 unit 05/17/24 03:45 05/17/24 04:10 Insulin Glargine,Hum.Rec.Anlog 100 Unit/Ml 10 Ml Vial SUBCUT Not Given BEDTIME REYNALDO Discontinued Medications Generic Name Dose Route Start Last Admin Trade Name Demetrio PRN Reason Stop Dose Admin Acetaminophen 650 mg 05/16/24 23:24 05/16/24 23:45 Acetaminophen 325 Mg Tablet PO 05/16/24 23:25 650 mg ONCE ONE Administration Sodium Chloride 1,000 mls @ 999 mls/hr 05/16/24 23:24 05/17/24 01:03 Ns IV 05/17/24 00:24 Infused .Q1H1M ONE Infusion Ceftriaxone Sodium 1 gm/ 50 mls @ 100 mls/hr 05/17/24 00:57 05/17/24 01:28 Sodium Chloride IV 05/17/24 01:26 Infused ONCE ONE Infusion Polyethylene Glycol 17 gm 05/17/24 03:39 05/17/24 04:26 Polyethylene Glycol 3350 17 Gm Powd.Pack PO 05/17/24 03:40 17 gm ONCE ONE Administration Medical Decision Making Medical Decision Making [facility] Narrative: Patient with dementia AFib diabetes CHF gout hypertension CKD comes here for low-grade fever with chills etiology is not clear likely viral COVID influenza RSV negative chest x-ray without any infiltrate was given dose of Rocephin will admit patient for fever likely viral/bacteremia, patient has lactic acidosis with history of CKD could be contributing improved after IV fluids patient's mental status improved during stay in the ER will admit patient for further management Differential Diagnosis Differential Diagnoses: The differential diagnosis associated with the presentation includes Pneumonia/metabolic/bacteremia/UTI/viral/dehydration Admission/Observation Consideration of admission/observation: Escalation of care including admission/observation considered Consult Healthcare Provider Management of the patient was discussed with: Hospitalist Lab Data [facility] Lab Attestation statement: I reviewed the patient's lab results. 05/17/24 04:59 05/17/24 04:59 Labs: Lab Results 05/16/24 05/16/24 05/16/24 Range/Units 22:27 23:02 23:14 WBC 9.9 (4.8-10.8) X10*3/uL RBC 4.15 L (4.60-5.80) X10*6/uL Hgb 12.7 L (14.0-18.0) g/dl Hct 37.8 L (42.0-52.0) % MCV 91.1 (80.0-98.0) fL MCH 30.6 (27.0-33.0) pg MCHC 33.6 (31.0-36.0) g/dl RDW 14.5 (11.0-16.0) % Plt Count 201 D (160-400) X10*3/uL MPV 11.4 (9.4-12.4) fL Immature Gran % (Auto) 0.3 (0.0-0.4) % Neut % (Auto) 76.8 H (45-73) % Lymph % (Auto) 12.9 L (20-40) % [place] % (Auto) 8.2 (2-11) % Eos % (Auto) 1.2 (0-4) % Baso % (Auto) 0.6 (0-2) % Lymph # (Auto) 1.3 (1.2-4.9) X10*3/uL [place] # (Auto) 0.8 (0.1-1.2) X10*3/uL Eos # (Auto) 0.1 (0.0-0.4) X10*3/uL Baso # (Auto) 0.1 (0.0-0.2) X10*3/uL Abs Immat Gran (auto) 0.03 (0.00-0.03) X10*3/uL Absolute Neuts (auto) 7.6 (2.0-8.3) x10*3/uL Absolute Nucleated RBC 0.000 (0.0-0.012) X10*3/uL Nucleated RBC % (auto) 0.0 (0.0-0.2) /100WBC Sodium 135 (135-145) mmol/L Potassium 4.3 (3.3-5.1) mmol/L Chloride 96 (96-108) mmol/L Carbon Dioxide 26 (22-29) mmol/L Anion Gap 17 (12-20) BUN 35 H (9-16) mg/dL Creatinine 2.09 H (0.5-1.4) mg/dL Estim Creat Clear Calc 36.4 Estimated GFR 31 POC Glucose 325 H (60-115) mg/dL Random Glucose 341 H (60-115) mg/dL Lactic Acid 4.3 H* (0.5-2.0) mmol/L Lactic Acid F/U @ 2Hr (0.5-2.0) mmol/L Calcium 9.2 (8.4-10.2) mg/dL Total Bilirubin 0.5 (0.0-1.0) mg/dL AST 22 (5-37) U/L ALT 17 (0-40) U/L Alkaline Phosphatase 112 (39-117) U/L Troponin I High Sens 15.2 (<3.5-35.0) ng/L Total Protein 7.8 (6.5-8.0) g/dL Albumin 4.0 (3.5-5.0) g/dL Urine Color Yellow Urine Appearance Clear Urine pH 5.0 (5.0-9.0) Ur Specific [place] 1.020 (1.005-1.025) Urine Protein 30 (1+) H (Neg-Trace) mg/dL Urine Glucose (UA) >=1000 H (Negative) mg/dL Urine Ketones Trace (Negative) mg/dL Urine Blood Negative (Negative) Urine Nitrite Negative (Negative) Ur Leukocyte Esterase Negative (Negative) Urine RBC 0-2 (0-2) /HPF Urine WBC 0-5 (0-5) /HPF Ur Squamous Epith Cells 0-2 (0-2) /HPF Urine Bacteria None Seen (None Seen) Hyaline Casts 11-20 (0-2) /LPF Influenza Type A (PCR) (Negative) Influenza Type B (PCR) (Negative) RSV RNA Qual (PCR) (Negative) SARS-CoV-2 RNA (RT-PCR) (Negative) 05/16/24 05/17/24 05/17/24 Range/Units 23:32 00:57 01:23 WBC (4.8-10.8) X10*3/uL RBC (4.60-5.80) X10*6/uL Hgb (14.0-18.0) g/dl Hct (42.0-52.0) % MCV (80.0-98.0) fL MCH (27.0-33.0) pg MCHC (31.0-36.0) g/dl RDW (11.0-16.0) % Plt Count (160-400) X10*3/uL MPV (9.4-12.4) fL Immature Gran % (Auto) (0.0-0.4) % Neut % (Auto) (45-73) % Lymph % (Auto) (20-40) % [place] % (Auto) (2-11) % Eos % (Auto) (0-4) % Baso % (Auto) (0-2) % Lymph # (Auto) (1.2-4.9) X10*3/uL [place] # (Auto) (0.1-1.2) X10*3/uL Eos # (Auto) (0.0-0.4) X10*3/uL Baso # (Auto) (0.0-0.2) X10*3/uL Abs Immat Gran (auto) (0.00-0.03) X10*3/uL Absolute Neuts (auto) (2.0-8.3) x10*3/uL Absolute Nucleated RBC (0.0-0.012) X10*3/uL Nucleated RBC % (auto) (0.0-0.2) /100WBC Sodium (135-145) mmol/L Potassium (3.3-5.1) mmol/L Chloride (96-108) mmol/L Carbon Dioxide (22-29) mmol/L Anion Gap (12-20) BUN (9-16) mg/dL Creatinine (0.5-1.4) mg/dL Estim Creat Clear Calc Estimated GFR POC Glucose 189 H (60-115) mg/dL Random Glucose (60-115) mg/dL Lactic Acid (0.5-2.0) mmol/L Lactic Acid F/U @ 2Hr 2.6 H* (0.5-2.0) mmol/L Calcium (8.4-10.2) mg/dL Total Bilirubin (0.0-1.0) mg/dL AST (5-37) U/L ALT (0-40) U/L Alkaline Phosphatase (39-117) U/L Troponin I High Sens (<3.5-35.0) ng/L Total Protein (6.5-8.0) g/dL Albumin (3.5-5.0) g/dL Urine Color Urine Appearance Urine pH (5.0-9.0) Ur Specific [place] (1.005-1.025) Urine Protein (Neg-Trace) mg/dL Urine Glucose (UA) (Negative) mg/dL Urine Ketones (Negative) mg/dL Urine Blood (Negative) Urine Nitrite (Negative) Ur Leukocyte Esterase (Negative) Urine RBC (0-2) /HPF Urine WBC (0-5) /HPF Ur Squamous Epith Cells (0-2) /HPF Urine Bacteria (None Seen) Hyaline Casts (0-2) /LPF Influenza Type A (PCR) NEGATIVE (Negative) Influenza Type B (PCR) NEGATIVE (Negative) RSV RNA Qual (PCR) NEGATIVE (Negative) SARS-CoV-2 RNA (RT-PCR) NEGATIVE (Negative) 05/17/24 Range/Units 02:55 WBC (4.8-10.8) X10*3/uL RBC (4.60-5.80) X10*6/uL Hgb (14.0-18.0) g/dl Hct (42.0-52.0) % MCV (80.0-98.0) fL MCH (27.0-33.0) pg MCHC (31.0-36.0) g/dl RDW (11.0-16.0) % Plt Count (160-400) X10*3/uL MPV (9.4-12.4) fL Immature Gran % (Auto) (0.0-0.4) % Neut % (Auto) (45-73) % Lymph % (Auto) (20-40) % [place] % (Auto) (2-11) % Eos % (Auto) (0-4) % Baso % (Auto) (0-2) % Lymph # (Auto) (1.2-4.9) X10*3/uL [place] # (Auto) (0.1-1.2) X10*3/uL Eos # (Auto) (0.0-0.4) X10*3/uL Baso # (Auto) (0.0-0.2) X10*3/uL Abs Immat Gran (auto) (0.00-0.03) X10*3/uL Absolute Neuts (auto) (2.0-8.3) x10*3/uL Absolute Nucleated RBC (0.0-0.012) X10*3/uL Nucleated RBC % (auto) (0.0-0.2) /100WBC Sodium (135-145) mmol/L Potassium (3.3-5.1) mmol/L Chloride (96-108) mmol/L Carbon Dioxide (22-29) mmol/L Anion Gap (12-20) BUN (9-16) mg/dL Creatinine (0.5-1.4) mg/dL Estim Creat Clear Calc Estimated GFR POC Glucose 201 H (60-115) mg/dL Random Glucose (60-115) mg/dL Lactic Acid (0.5-2.0) mmol/L Lactic Acid F/U @ 2Hr (0.5-2.0) mmol/L Calcium (8.4-10.2) mg/dL Total Bilirubin (0.0-1.0) mg/dL AST (5-37) U/L ALT (0-40) U/L Alkaline Phosphatase (39-117) U/L Troponin I High Sens (<3.5-35.0) ng/L Total Protein (6.5-8.0) g/dL Albumin (3.5-5.0) g/dL Urine Color Urine Appearance Urine pH (5.0-9.0) Ur Specific [place] (1.005-1.025) Urine Protein (Neg-Trace) mg/dL Urine Glucose (UA) (Negative) mg/dL Urine Ketones (Negative) mg/dL Urine Blood (Negative) Urine Nitrite (Negative) Ur Leukocyte Esterase (Negative) Urine RBC (0-2) /HPF Urine WBC (0-5) /HPF Ur Squamous Epith Cells (0-2) /HPF Urine Bacteria (None Seen) Hyaline Casts (0-2) /LPF Influenza Type A (PCR) (Negative) Influenza Type B (PCR) (Negative) RSV RNA Qual (PCR) (Negative) SARS-CoV-2 RNA (RT-PCR) (Negative) Independent Interpretation I performed an independent interpretation of an: EKG Interpretation: Atrial fibrillation heart rate 60 beats per minute nonspecific ST T wave changes no acute ischemia Critical Care Time Critical Care Time Critical Care Time: Yes Total Critical Care Time: 55 Attestation: The patient was critically ill with a high probability of imminent or life threatening deterioration. I spent greater than 60???minutes of discontinuous time evaluating the patient,delivering critical care at the bedside, discussing and evaluating pertinent data with consultants. Critical care time does not include time spent performing separately billable procedures or teaching. Total time spent performing critical care was 55???minutes. Discharge Plan Discharge Clinical Impression: Fever, Pre-syncope, Lactic acidosis Patient Disposition: Admitted As Inpatient
[2024-05-16 23:27] LABS: Appearance Urine Clear; Color Urine Yellow; Glucose Urine UA >=1000 mg/dL (Negative); Leukocyte Esterase Urine Negative (Negative); Nitrite Urine Negative (Negative); UMIC TRIGGER UACC YES; Urine Blood Negative (Negative); Urine Ketones Trace mg/dL (Negative); Urine Protein 30 (1+) mg/dL (Neg-Trace)
[2024-05-16 23:29] LABS: Troponin-I High Sensitivity 15.2 ng/L (<3.5-35.0)
[2024-05-16 23:40] LABS: Bacteria Urine None Seen (None Seen); RBC Urine 0-2 /HPF (0-2); Squamous Epithelial Cell Urine 0-2 /HPF (0-2); WBC Urine 0-5 /HPF (0-5)
[2024-05-16] MEDS: 0.9 % Sodium Chloride 1,000 ML 999 ML IV (23:44)
[2024-05-16] MEDS: Acetaminophen 325 MG TABLET 650 MG PO (23:45)
[2024-05-17] VITALS (12 sets, daily range): BP systolic 123–150; BP diastolic 60–80; PULSE 51–67; RESP 12–18; TEMP 36.1–37.3; O2SAT 95–98
[2024-05-17 00:22] LABS: Influenza A PCR NEGATIVE (Negative); Influenza B PCR NEGATIVE (Negative); Resp Syncy Virus RNA Qual PCR NEGATIVE (Negative); SARS COV2 PCR INHOUSE NEGATIVE (Negative)
[2024-05-17 01:01] LABS: Glucose, Whole Blood 189 mg/dL (60-115)
[2024-05-17 01:05] LABS: Reflex Lactate? Lactic Acid Added
[2024-05-17] MEDS: cefTRIAXone sodium 1 GM in 0.9 % Sodium Chloride 50 ML IV (01:17)
[2024-05-17 01:44] LABS: ~Lactic Acid-LAB USE ONLY 2.6 mmol/L (0.5-2.0)
[2024-05-17 03:00] LABS: Glucose, Whole Blood 201 mg/dL (60-115)
[2024-05-17 03:25] LABS: Reflex Lactate? 2 Y
--- NOTE | 2024-05-17 03:37 | PM.IMHP ---
History of Present Illness Date of Service: 05/17/24 Chief Complaint: Generalized weakness This is a 79-year-old male with pertinent history of Alzheimer's dementia, atrial fibrillation on Eliquis, insulin-dependent diabetes mellitus, congestive heart failure with preserved ejection fraction, coronary artery disease, gout, hypertension, mood disorder, gastroesophageal reflux disease, CKD stage 3 who presents to the emergency department evaluation of dizziness and generalized weakness. Patient states he has been feeling unwell for the last couple of days. Patient with poor p.o. intake about 24 hours prior to presentation. States he felt dizzy when he tried to get up and walk. Did not pass out. Also admits fevers and chills. No sick contacts. He denies cough, dysuria, change in urinary habits, change in bowel habits. No chest discomfort, palpitations, shortness of breath, nausea or vomiting. In the emergency department, imaging without any acute abnormality. Patient found to be febrile at 100.5. Lactic acid 4.3. Review of Systems Constitutional: Constitutional: Reports chills, Reports fever(s), Reports lethargy, Reports malaise, Reports poor appetite and Reports weakness Cardiovascular: Cardiovascular: Reports no additional cardiovascular complaints Respiratory: Respiratory: Reports no additional respiratory complaints Gastrointestinal: Gastrointestinal: Reports no additional gastrointestinal complaints Genitourinary: Genitourinary: Reports no additional male genitourinary complaints Neurologic: Reports weakness [facility] Medical History CAD (coronary artery disease) Trash foot Diabetic foot infection Heart failure with preserved ejection fraction HLD (hyperlipidemia) Diabetes mellitus Atrial fibrillation NSTEMI (non-ST elevated myocardial infarction) Alzheimer's dementia Kidney failure Diabetes HTN (hypertension) Family History Father No problems noted. Mother No problems noted. Surgical History No pertinent past surgical history Social History Household Members: Family Housing: Apartment Do you presently have visiting nurse or other home services: No Alcohol intake: never Patient Tobacco Use Status: Never used Tobacco Smoked in Last 30 Days: No e-Cigarette/Vaping Use: Never Used Second Hand Smoke Exposure: No Advance Directives: Yes Advance Directives on File: Yes Advance Directives Date on File: 09/06/21 Do you have a plan to hurt others: No Plan service: No Current occupational status: retired Meds Allergies Allergy/AdvReac Type Severity Reaction Status Date / Time No Known Allergies Allergy Verified 05/16/24 22:33 Home Medications ?Medication ?Instructions ?Recorded ?Confirmed ?Last Taken ?Type apixaban 5 mg tablet (Eliquis) 1 tab PO BID 09/05/21 08/17/23 10/17/21 History donepezil 10 mg tablet 1 tab PO QPM 09/05/21 08/17/23 10/16/21 History puaisadv-upi-mdwre acid 0.4 1 tab PO DAILY 09/05/21 08/17/23 10/17/21 History mg-lycopene 300 mcg-lutein 250 mcg tablet (Certa[employer]ite Senior) acetaminophen 500 mg tablet 1 tab PO Q6H PRN pain 10/07/21 08/17/23 10/17/21 History allopurinol 100 mg tablet 0.5 tab PO DAILY gout pain 10/07/21 08/17/23 10/17/21 History carboxymethylcellulose sodium 0.5 1 drp ophthalmic (eye) Q4-6H PRN 10/07/21 08/17/23 10/17/21 History % eye drops (Refresh Tears) Dry Eye(S) diphenhydramine HCl 25 mg tablet 0.5 tab PO BEDTIME PRN Insomnia 10/07/21 08/17/23 10/16/21 History (Banophen) gabapentin 600 mg tablet 1 tab PO BID 10/17/21 08/17/23 10/17/21 History insulin syringe-needle U-100 1 mL #10 ea 12/22/21 05/08/22 Unknown History 31 gauge x 16 bumetanide 1 mg tablet 1 mg PO BID@0900,1200 05/08/22 08/22/23 Unknown History magnesium oxide 250 mg PO DAILY 05/08/22 08/17/23 Unknown History memantine 10 mg tablet 10 mg PO BID 05/08/22 08/17/23 Unknown History metoprolol tartrate 100 mg tablet 100 mg PO BID 06/13/22 09/22/23 Unknown History amlodipine 5 mg tablet 5 mg PO QAM 08/17/23 08/17/23 Unknown History cetirizine 10 mg tablet 10 mg PO DAILY congestion 08/17/23 08/17/23 Unknown History citalopram 20 mg tablet 20 mg PO BEDTIME 08/17/23 08/17/23 Unknown History fluocinolone 0.01 % topical body 1 appl topical Q2W 08/17/23 08/17/23 Unknown History oil ketoconazole 2 % shampoo 1 appl topical Q2W 08/17/23 08/17/23 Unknown History triamcinolone acetonide 0.1 % 1 appl topical BID 08/17/23 08/17/23 Unknown History topical cream Physical Exam Vital Signs and Narrative: Vital Signs: Last Vital Signs Temp 97.6 F 05/17/24 02:18 Pulse 60 05/17/24 02:18 Resp 12 05/17/24 02:18 BP 138/69 05/17/24 02:18 Pulse Ox 95 05/17/24 02:18 O2 Del Method Room Air 05/17/24 02:18 BMI result Body Mass Index 38.7 Middle-aged male lying in bed in no distress Neck supple, no JVD Regular rate and rhythm, S1-S2 heard Regular breath sounds bilaterally, no wheezing or crackles appreciated Abdomen soft nontender, no guarding, no rigidity Patient is awake, alert and oriented to self, place, time and person ; no focal motor deficit Psych: Normal mood No pedal edema Results Labs 05/16/24 23:02 05/16/24 23:02 Labs: Laboratory Results - last 24 hr 05/16/24 05/16/24 05/16/24 22:27 23:02 23:14 MCV 91.1 MCH 30.6 MCHC 33.6 RDW 14.5 Plt Count 201 D MPV 11.4 Immature Gran % (Auto) 0.3 Neut % (Auto) 76.8 H Lymph % (Auto) 12.9 L [place] % (Auto) 8.2 Eos % (Auto) 1.2 Baso % (Auto) 0.6 Lymph # (Auto) 1.3 [place] # (Auto) 0.8 Eos # (Auto) 0.1 Baso # (Auto) 0.1 Abs Immat Gran (auto) 0.03 Absolute Neuts (auto) 7.6 Absolute Nucleated RBC 0.000 Nucleated RBC % (auto) 0.0 Anion Gap 17 Estim Creat Clear Calc 36.4 Estimated GFR 31 POC Glucose 325 H Random Glucose 341 H Lactic Acid 4.3 H* Lactic Acid F/U @ 2Hr Calcium 9.2 Total Bilirubin 0.5 AST 22 ALT 17 Alkaline Phosphatase 112 Troponin I High Sens 15.2 Total Protein 7.8 Albumin 4.0 Urine Color Yellow Urine Appearance Clear Urine pH 5.0 Ur Specific [place] 1.020 Urine Protein 30 (1+) H Urine Glucose (UA) >=1000 H Urine Ketones Trace Urine Blood Negative Urine Nitrite Negative Ur Leukocyte Esterase Negative Urine RBC 0-2 Urine WBC 0-5 Ur Squamous Epith Cells 0-2 Urine Bacteria None Seen Hyaline Casts 11-20 Influenza Type A (PCR) Influenza Type B (PCR) RSV RNA Qual (PCR) SARS-CoV-2 RNA (RT-PCR) 05/16/24 05/17/24 05/17/24 23:32 00:57 01:23 MCV MCH MCHC RDW Plt Count MPV Immature Gran % (Auto) Neut % (Auto) Lymph % (Auto) [place] % (Auto) Eos % (Auto) Baso % (Auto) Lymph # (Auto) [place] # (Auto) Eos # (Auto) Baso # (Auto) Abs Immat Gran (auto) Absolute Neuts (auto) Absolute Nucleated RBC Nucleated RBC % (auto) Anion Gap Estim Creat Clear Calc Estimated GFR POC Glucose 189 H Random Glucose Lactic Acid Lactic Acid F/U @ 2Hr 2.6 H* Calcium Total Bilirubin AST ALT Alkaline Phosphatase Troponin I High Sens Total Protein Albumin Urine Color Urine Appearance Urine pH Ur Specific [place] Urine Protein Urine Glucose (UA) Urine Ketones Urine Blood Urine Nitrite Ur Leukocyte Esterase Urine RBC Urine WBC Ur Squamous Epith Cells Urine Bacteria Hyaline Casts Influenza Type A (PCR) NEGATIVE Influenza Type B (PCR) NEGATIVE RSV RNA Qual (PCR) NEGATIVE SARS-CoV-2 RNA (RT-PCR) NEGATIVE 05/17/24 02:55 MCV MCH MCHC RDW Plt Count MPV Immature Gran % (Auto) Neut % (Auto) Lymph % (Auto) [place] % (Auto) Eos % (Auto) Baso % (Auto) Lymph # (Auto) [place] # (Auto) Eos # (Auto) Baso # (Auto) Abs Immat Gran (auto) Absolute Neuts (auto) Absolute Nucleated RBC Nucleated RBC % (auto) Anion Gap Estim Creat Clear Calc Estimated GFR POC Glucose 201 H Random Glucose Lactic Acid Lactic Acid F/U @ 2Hr Calcium Total Bilirubin AST ALT Alkaline Phosphatase Troponin I High Sens Total Protein Albumin Urine Color Urine Appearance Urine pH Ur Specific [place] Urine Protein Urine Glucose (UA) Urine Ketones Urine Blood Urine Nitrite Ur Leukocyte Esterase Urine RBC Urine WBC Ur Squamous Epith Cells Urine Bacteria Hyaline Casts Influenza Type A (PCR) Influenza Type B (PCR) RSV RNA Qual (PCR) SARS-CoV-2 RNA (RT-PCR) Imaging Radiologist's Impressions: Impressions Chest X-Ray 05/17/24 00:15 IMPRESSION: Blunting of the left costophrenic angle/pleural thickening. This could be related to a small pleural effusion versus chronic pleural change. No other significant abnormality seen. Abdomen/Pelvis CT 05/17/24 02:15 IMPRESSION: 1. There is retained stool throughout the colon particularly within the rectum with rectal expansion up to 9.3 cm and rectal wall thickening. 2. No other evidence of bowel obstruction. 3. The appendix is visualized and is within normal limits. 4. No evidence of renal or ureteral stone or obstruction. Fleischner guidelines were followed. Assessment and Plan (1) Fever: Status: Acute (2) Pre-syncope: Status: Acute (3) Lactic acidosis: Status: Acute Plan This is a 79-year-old male with pertinent history of Alzheimer's dementia, atrial fibrillation on Eliquis, insulin-dependent diabetes mellitus, congestive heart failure with preserved ejection fraction, coronary artery disease, gout, hypertension, mood disorder, gastroesophageal reflux disease, CKD stage 3 who presents to the emergency department evaluation of dizziness and generalized weakness. #. Fever: Febrile up to 100.5 in the ER. Chest x-ray and CT abdomen without any acute abnormality. UA not concerning for UTI. Patient given IV ceftriaxone in the ER. Hold off on further antibiotics, unclear etiology of infection. Bacterial versus viral. Follow blood cultures. Obtaining respiratory viral panel #. Orthostatic presyncope in the setting of above. Resuscitated with IV crystalloids in the ER. Repeat orthostatics in a.m. #. Acute lactic acidosis: Improved with IV crystalloids #. Insulin-dependent diabetes mellitus with hyperglycemia: Initiating basal plus insulin regimen #. Atrial fibrillation: Rate controlled in the ER. On Eliquis #. CKD stage 3: Creatinine at baseline. #. Gastroesophageal reflux disease: On PPI #. Congestive heart failure with preserved ejection fraction: No decompensation during admission. #. Coronary artery disease: On high-intensity statin. Not on antiplatelet agent #. Alzheimer's dementia/mood disorder: Continue home mood stabilizers and donepezil. Maintain sleep-wake cycle #. Hypertension: Continue home antihypertensives Med rec pending DVT prophylaxis: Nasim Full code Admit as inpatient and will require two night minimum hospital stay for monitoring of hemodynamics, follow blood cultures, evaluation of fever (as above), which is not possible in a lesser acute setting. Quality Stroke Does the patient have a stroke diagnosis?: No VTE Prior VTE?: No VTE Risk Level:: Medical - moderate - high VTE Device Contraindication: Treatment Not Indicated VTE Drug Contraindication: N/A - Med Ordered
--- NOTE | 2024-05-17 04:10 | PC.NURSE ---
Glargine not given here because prior to arrival family administered 75U Glargine. Confirmed with Dr. Parish nichols not to give. patient blood sugar remains stable at this time
[2024-05-17] MEDS: polyethylene glycoL 3350 17 GM POWD.PACK PO (04:26)
[2024-05-17 05:15] LABS: MANUAL DIFF FLAG NO
[2024-05-17 05:18] LABS: Basophils Absolute Auto 0.1 X10*3/uL (0.0-0.2); Basophils Percent Auto 0.7 % (0-2); Eosinophils Absolute Auto 0.2 X10*3/uL (0.0-0.4); Eosinophils Percent Auto 2.4 % (0-4); Hematocrit 37.6 % (42.0-52.0); Hemoglobin 12.4 g/dl (14.0-18.0); Imm Gran Abs Auto 0.02 X10*3/uL (0.00-0.03); Imm Gran Pct Auto 0.2 % (0.0-0.4); Lymphocytes Absolute Auto 1.7 X10*3/uL (1.2-4.9); Lymphocytes Percent Auto 19.1 % (20-40); Mean Corpuscular Hemoglobin 30.2 pg (27.0-33.0); Mean Corpuscular Volume 91.7 fL (80.0-98.0); Mean Platelet Volume 11.6 fL (9.4-12.4); Monocytes Absolute Auto 0.8 X10*3/uL (0.1-1.2); Monocytes Percent Auto 8.8 % (2-11); Neutrophils Absolute Auto 5.9 x10*3/uL (2.0-8.3); Neutrophils Percent Auto 68.8 % (45-73); Platelet Count 175 X10*3/uL (160-400); Red Cell Distribution Width 14.6 % (11.0-16.0); White Blood Count 8.6 X10*3/uL (4.8-10.8)
[2024-05-17 05:29] LABS: ~Lactic Acid-LAB USE ONLY 2.7 mmol/L (0.5-2.0)
[2024-05-17 05:31] LABS: Anion Gap 15 (12-20); Blood Urea Nitrogen 34 mg/dL (9-16); Calcium 8.4 mg/dL (8.4-10.2); Carbon Dioxide 26 mmol/L (22-29); Chloride 99 mmol/L (96-108); Estimated Glomerular Filt Rate 31; Glucose Random 233 mg/dL (60-115); Potassium 4.1 mmol/L (3.3-5.1); Sodium 136 mmol/L (135-145)
--- NOTE | 2024-05-17 05:47 | ECG_ITS ---
Test Reason : WEAKNESS Blood Pressure : / mmHG Vent. Rate : 060 BPM Atrial Rate : 000 BPM P-R Int : 000 ms QRS Dur : 084 ms QT Int : 470 ms P-R-T Axes : 000 056 098 degrees QTc Int : 470 ms Atrial fibrillation Nonspecific ST and T wave abnormality Abnormal ECG When compared with ECG of 12-NOV-2023 18:38, Nonspecific T wave abnormality no longer evident in Inferior leads QT has lengthened Referred By: Angela Lugo Electronically Signed By:Brendon Joaquin
[2024-05-17 07:37] LABS: Glucose, Whole Blood 222 mg/dL (60-115)
[2024-05-17] MEDS: Insulin Lispro 100 UNIT/ML 3 ML VIAL SUBCUT ×4 (08:39→21:39)
[2024-05-17] MEDS: 0.9 % Sodium Chloride Flush 3 ML SYRINGE IVFLUSH ×3 (08:42→21:43)
[2024-05-17 09:04] LABS: Adenovirus PCR Not Detected (Not Detect.); Bordetella parapertussis PCR Not Detected (Not Detect.); Bordetella pertussis PCR Not Detected (Not Detect.); Chlamydia pneumoniae PCR Not Detected (Not Detect.); Coronavirus 229E PCR Not Detected (Not Detect.); Coronavirus HKU1 PCR Not Detected (Not Detect.); Coronavirus NL63 PCR Not Detected (Not Detect.); Coronavirus OC43 PCR Not Detected (Not Detect.); Human metapneumovirus PCR Not Detected (Not Detect.); Influenza A PCR Not Detected (Not Detect.); Influenza B PCR Not Detected (Not Detect.); Mycoplasma pneumoniae PCR Not Detected (Not Detect.); Parainfluenza 1 PCR Not Detected (Not Detect.); Parainfluenza 2 PCR Not Detected (Not Detect.); Parainfluenza 3 PCR Not Detected (Not Detect.); Parainfluenza 4 PCR Not Detected (Not Detect.); RSV PCR Not Detected (Not Detect.); Rhino/Enterovirus PCR Not Detected (Not Detect.)
[2024-05-17 09:29] LABS: SARS-CoV-2 PCR Not Detected (Not Detect.)
--- NOTE | 2024-05-17 10:08 | PHA.MEDREC ---
Pharmacy Consult ? Medication Reconciliation Pharmacy has completed the medication reconciliation. Spoke with patients daughter in law over the phone (Migdalia) to confirm medications. She had a list with her that matched our claim history. She confirmed Novolog 70/30 mix BID: 50 units if BG is 150 or less and 76 units if BG is >150. Migdalia emphasized that patient does not speak up when he is in pain from severe heartburn. Migdalia believes his magnesium oxide 250 mg was discontinued. She reported that he took his medications yesterday.
--- NOTE | 2024-05-17 11:03 | P.PNIM_ITS ---
Subjective Subjective Date of Service: 05/17/24 Interval History: no complaints this morning Physical Exam 2 Vital Signs: Vital Signs: Last Vital Signs Temp 98.4 F 05/17/24 09:20 Pulse 55 05/17/24 09:20 Resp 15 05/17/24 09:20 BP 130/60 05/17/24 09:20 Pulse Ox 95 05/17/24 09:20 O2 Del Method Room Air 05/17/24 09:20 BMI result Body Mass Index 38.7 Appearance: Lethargic abese. No acute distress. Eyes: No pallor or icterus ENT: Pharynx normal. Oral Mucosa dry Neck: Normal inspection. Neck supple. CVS: Irregularly irregular heart rate Pulses normal. Respiratory: No respiratory distress. Equal air entry bilateral, no wheezing/rales/rhonchi Abdomen: Soft and nontender. Bowel sounds are present, no mass palpable, no CVA tenderness Skin: Skin warm and dry. Normal skin color. Normal skin turgor. Extremities: No lower extremity edema. No calf tenderness Neuro: Oriented X 3. No motor deficit. No sensory deficit.No cerebellar signs , cranial nerves II-XII intact Objective Data Active Medications Acetaminophen (Acetaminophen 325 Mg Tablet) 650 mg PO Q6H PRN PRN Reason: Pain, Mild (Pain Scale 1-3), fever or headache Allopurinol (Allopurinol 100 Mg Tablet) 50 mg PO DAILY [facility] Amlodipine Besylate (Amlodipine Besylate 5 Mg Tablet) 5 mg PO DAILY [facility]; Protocol Apixaban (Apixaban 5 Mg Tablet) 5 mg PO BID [facility] Atorvastatin Calcium (Atorvastatin Calcium 40 Mg Tablet) 40 mg PO BEDTIME [facility] Bumetanide (Bumetanide 1 Mg Tablet) 1 mg PO BID@0900,1200 [facility]; Protocol Calcium Carbonate (Calcium Carbonate 750 Mg Tab.Chew) 750 mg PO Q4H PRN PRN Reason: Heartburn Donepezil HCl (Donepezil Hcl 10 Mg Tablet) 10 mg PO BEDTIME [facility] Gabapentin (Gabapentin 400 Mg Capsule) 800 mg PO BID [facility] Glucose (Glucose Gel 15 Gm Gel..Gram.) 15 gm PO Q15M PRN; Protocol PRN Reason: per Hypoglycemia Standing Ord. Dextrose (D10) 250 mls @ 750 mls/hr IV Q15M PRN; Protocol PRN Reason: per Hypoglycemia Standing Ord. Insulin Glargine (Insulin Glargine,Hum.Rec.Anlog 100 Unit/Ml 10 Ml Vial) 18 unit SUBCUT BEDTIME [facility] Last Admin: 05/17/24 04:10 Dose: Not Given Documented By: KELVIN Non-Admin Reason: Previously Administered Insulin Human Lispro (Insulin Lispro 100 Unit/Ml 3 Ml Vial) 0 unit SUBCUT QIDACHS [facility] [place]; Protocol Last Admin: 05/17/24 08:39 Dose: 4 unit Documented By: FELY Magnesium Hydroxide (Milk Of Magnesia 30 Ml Oral.Susp) 30 ml PO DAILY PRN PRN Reason: Constipation Melatonin (Melatonin 3 Mg Tablet) 6 mg PO BEDTIME PRN PRN Reason: Insomnia Memantine (Memantine Hcl 10 Mg Tablet) 10 mg PO BID [facility] Metoprolol Tartrate (Metoprolol Tartrate 100 Mg Tablet) 100 mg PO BID [facility] [place]; Protocol Omeprazole (Omeprazole 20 Mg Capsule.Dr) 20 mg PO BID@0630,1630 [facility] [place] Sodium Chloride (0.9 % Sodium Chloride Flush 3 Ml Syringe) 3 ml IVFLUSH QSHIFT [facility] Last Admin: 05/17/24 08:42 Dose: 3 ml Documented By: FELY Sucralfate (Sucralfate 1 Gm Tablet) 1 gm PO TIDAC [facility] Labs 05/17/24 04:59 05/17/24 04:59 Labs: Laboratory Results - last 24 hr 05/16/24 05/16/24 05/16/24 22:27 23:02 23:14 MCV 91.1 MCH 30.6 MCHC 33.6 RDW 14.5 Plt Count 201 D MPV 11.4 Immature Gran % (Auto) 0.3 Neut % (Auto) 76.8 H Lymph % (Auto) 12.9 L [place] % (Auto) 8.2 Eos % (Auto) 1.2 Baso % (Auto) 0.6 Lymph # (Auto) 1.3 [place] # (Auto) 0.8 Eos # (Auto) 0.1 Baso # (Auto) 0.1 Abs Immat Gran (auto) 0.03 Absolute Neuts (auto) 7.6 Absolute Nucleated RBC 0.000 Nucleated RBC % (auto) 0.0 Anion Gap 17 Estim Creat Clear Calc 36.4 Estimated GFR 31 POC Glucose 325 H Random Glucose 341 H Lactic Acid 4.3 H* Lactic Acid F/U @ 2Hr Lactic Acid F/U @ 4Hr Calcium 9.2 Total Bilirubin 0.5 AST 22 ALT 17 Alkaline Phosphatase 112 Troponin I High Sens 15.2 Total Protein 7.8 Albumin 4.0 Urine Color Yellow Urine Appearance Clear Urine pH 5.0 Ur Specific [place] 1.020 Urine Protein 30 (1+) H Urine Glucose (UA) >=1000 H Urine Ketones Trace Urine Blood Negative Urine Nitrite Negative Ur Leukocyte Esterase Negative Urine RBC 0-2 Urine WBC 0-5 Ur Squamous Epith Cells 0-2 Urine Bacteria None Seen Hyaline Casts 11-20 Respiratory Panel [place] Adenovirus (Rapid PCR) B.pert (TEM-PCR) B.parapertussis DNA PCR C. pneumoniae DNA (PCR) Coronavirus OC43 (PCR) Coronavirus HKU1 (PCR) Coronavirus 229E (PCR) Coronavirus NL63 (PCR) Human Metapneumovir PCR Influenza A (RT-PCR) Influenza Type A (PCR) Influenza B (RT-PCR) Influenza Type B (PCR) M. pneumoniae (PCR) Parainfluenza 1 (PCR) Parainfluenza 2 (PCR) Parainfluenza 3 (PCR) Parainfluenza 4 (PCR) RSV (PCR) RSV RNA Qual (PCR) Entero/Rhino (PCR) SARS-CoV-2 RNA (RT-PCR) 05/16/24 05/17/24 05/17/24 23:32 00:57 01:23 MCV MCH MCHC RDW Plt Count MPV Immature Gran % (Auto) Neut % (Auto) Lymph % (Auto) [place] % (Auto) Eos % (Auto) Baso % (Auto) Lymph # (Auto) [place] # (Auto) Eos # (Auto) Baso # (Auto) Abs Immat Gran (auto) Absolute Neuts (auto) Absolute Nucleated RBC Nucleated RBC % (auto) Anion Gap Estim Creat Clear Calc Estimated GFR POC Glucose 189 H Random Glucose Lactic Acid Lactic Acid F/U @ 2Hr 2.6 H* Lactic Acid F/U @ 4Hr Calcium Total Bilirubin AST ALT Alkaline Phosphatase Troponin I High Sens Total Protein Albumin Urine Color Urine Appearance Urine pH Ur Specific [place] Urine Protein Urine Glucose (UA) Urine Ketones Urine Blood Urine Nitrite Ur Leukocyte Esterase Urine RBC Urine WBC Ur Squamous Epith Cells Urine Bacteria Hyaline Casts Respiratory Panel [place] Adenovirus (Rapid PCR) B.pert (TEM-PCR) B.parapertussis DNA PCR C. pneumoniae DNA (PCR) Coronavirus OC43 (PCR) Coronavirus HKU1 (PCR) Coronavirus 229E (PCR) Coronavirus NL63 (PCR) Human Metapneumovir PCR Influenza A (RT-PCR) Influenza Type A (PCR) NEGATIVE Influenza B (RT-PCR) Influenza Type B (PCR) NEGATIVE M. pneumoniae (PCR) Parainfluenza 1 (PCR) Parainfluenza 2 (PCR) Parainfluenza 3 (PCR) Parainfluenza 4 (PCR) RSV (PCR) RSV RNA Qual (PCR) NEGATIVE Entero/Rhino (PCR) SARS-CoV-2 RNA (RT-PCR) NEGATIVE 05/17/24 05/17/24 05/17/24 02:55 04:59 06:11 MCV 91.7 MCH 30.2 MCHC 33.0 RDW 14.6 Plt Count 175 MPV 11.6 Immature Gran % (Auto) 0.2 Neut % (Auto) 68.8 Lymph % (Auto) 19.1 L [place] % (Auto) 8.8 Eos % (Auto) 2.4 Baso % (Auto) 0.7 Lymph # (Auto) 1.7 [place] # (Auto) 0.8 Eos # (Auto) 0.2 Baso # (Auto) 0.1 Abs Immat Gran (auto) 0.02 Absolute Neuts (auto) 5.9 Absolute Nucleated RBC 0.000 Nucleated RBC % (auto) 0.0 Anion Gap 15 Estim Creat Clear Calc 37.0 Estimated GFR 31 POC Glucose 201 H Random Glucose 233 H Lactic Acid Lactic Acid F/U @ 2Hr Lactic Acid F/U @ 4Hr 2.7 H* Calcium 8.4 D Total Bilirubin AST ALT Alkaline Phosphatase Troponin I High Sens Total Protein Albumin Urine Color Urine Appearance Urine pH Ur Specific [place] Urine Protein Urine Glucose (UA) Urine Ketones Urine Blood Urine Nitrite Ur Leukocyte Esterase Urine RBC Urine WBC Ur Squamous Epith Cells Urine Bacteria Hyaline Casts Respiratory Panel [place] See Note Adenovirus (Rapid PCR) Not Detected B.pert (TEM-PCR) Not Detected B.parapertussis DNA PCR Not Detected C. pneumoniae DNA (PCR) Not Detected Coronavirus OC43 (PCR) Not Detected Coronavirus HKU1 (PCR) Not Detected Coronavirus 229E (PCR) Not Detected Coronavirus NL63 (PCR) Not Detected Human Metapneumovir PCR Not Detected Influenza A (RT-PCR) Not Detected Influenza Type A (PCR) Influenza B (RT-PCR) Not Detected Influenza Type B (PCR) M. pneumoniae (PCR) Not Detected Parainfluenza 1 (PCR) Not Detected Parainfluenza 2 (PCR) Not Detected Parainfluenza 3 (PCR) Not Detected Parainfluenza 4 (PCR) Not Detected RSV (PCR) Not Detected RSV RNA Qual (PCR) Entero/Rhino (PCR) Not Detected SARS-CoV-2 RNA (RT-PCR) Not Detected 05/17/24 07:33 MCV MCH MCHC RDW Plt Count MPV Immature Gran % (Auto) Neut % (Auto) Lymph % (Auto) [place] % (Auto) Eos % (Auto) Baso % (Auto) Lymph # (Auto) [place] # (Auto) Eos # (Auto) Baso # (Auto) Abs Immat Gran (auto) Absolute Neuts (auto) Absolute Nucleated RBC Nucleated RBC % (auto) Anion Gap Estim Creat Clear Calc Estimated GFR POC Glucose 222 H Random Glucose Lactic Acid Lactic Acid F/U @ 2Hr Lactic Acid F/U @ 4Hr Calcium Total Bilirubin AST ALT Alkaline Phosphatase Troponin I High Sens Total Protein Albumin Urine Color Urine Appearance Urine pH Ur Specific [place] Urine Protein Urine Glucose (UA) Urine Ketones Urine Blood Urine Nitrite Ur Leukocyte Esterase Urine RBC Urine WBC Ur Squamous Epith Cells Urine Bacteria Hyaline Casts Respiratory Panel [place] Adenovirus (Rapid PCR) B.pert (TEM-PCR) B.parapertussis DNA PCR C. pneumoniae DNA (PCR) Coronavirus OC43 (PCR) Coronavirus HKU1 (PCR) Coronavirus 229E (PCR) Coronavirus NL63 (PCR) Human Metapneumovir PCR Influenza A (RT-PCR) Influenza Type A (PCR) Influenza B (RT-PCR) Influenza Type B (PCR) M. pneumoniae (PCR) Parainfluenza 1 (PCR) Parainfluenza 2 (PCR) Parainfluenza 3 (PCR) Parainfluenza 4 (PCR) RSV (PCR) RSV RNA Qual (PCR) Entero/Rhino (PCR) SARS-CoV-2 RNA (RT-PCR) Assessment and Plan (1) Fever: Status: Acute Plan 79M PMH alzheimers dementia, chronic afib, cad, hfpef, dm, ckd 3, presented with fever and weakness fever not sepsis possible viral monitor off abx, follow up cultures orthostatic hypotension improved with ivf acute lactic acidosis not due sepsis, resolved chronic afib eliquis metoprolol dm basal bolus insulin ckd 3 stable hfref bumex maintenance now that hes euvolemic cad statin, not on antiplatelet? alzheimers dementia aricept, obesity weight lsos recommended full code dvt prophylaxis - eliquis reason for continued hospitalization: monitor fever, cx Quality Stroke Does the patient have a stroke diagnosis?: No VTE Prior VTE?: No VTE Risk Level:: Medical - moderate - high VTE Device Contraindication: Treatment Not Indicated VTE Drug Contraindication: N/A - Med Ordered
[2024-05-17 11:06] LABS: Glucose, Whole Blood 261 mg/dL (60-115)
[2024-05-17] MEDS: Bumetanide 1 MG TABLET PO (11:40)
[2024-05-17] MEDS: Sucralfate 1 GM TABLET PO ×2 (11:40→16:58)
[2024-05-17] MEDS: amLODIPine Besylate 5 MG TABLET PO (11:40)
[2024-05-17 16:24] LABS: Glucose, Whole Blood 213 mg/dL (60-115)
[2024-05-17] MEDS: Omeprazole 20 MG CAPSULE.DR PO (16:58)
--- NOTE | 2024-05-17 17:38 | PC.NURSE ---
Family brought in Novolog Mix 70/30. Pharmacy called, states they family can bring this medication home and does not need to be brought to pharmacy.
[2024-05-17 20:38] LABS: Glucose, Whole Blood 253 mg/dL (60-115)
[2024-05-17] MEDS: Gabapentin 400 MG CAPSULE 800 MG PO (21:36)
[2024-05-17] MEDS: Atorvastatin Calcium 40 MG TABLET PO (21:36)
[2024-05-17] MEDS: Apixaban 5 MG TABLET PO (21:36)
[2024-05-17] MEDS: Memantine HCl 10 MG TABLET PO (21:37)
[2024-05-17] MEDS: Donepezil HCl 10 MG TABLET PO (21:37)
[2024-05-17] MEDS: Insulin Glargine,Hum.rec.anlog 100 UNIT/ML 10 ML VIAL 18 UNIT SUBCUT (21:39)
[2024-05-18] VITALS (7 sets, daily range): BP systolic 122–162; BP diastolic 63–75; PULSE 60–73; RESP 14–18; TEMP 36–36.2; O2SAT 95–97
[2024-05-18 06:09] LABS: Mean Corpuscular HGB Conc 33.3 g/dl (31.0-36.0); Mean Corpuscular Hemoglobin 30.5 pg (27.0-33.0); Mean Corpuscular Volume 91.4 fL (80.0-98.0); Mean Platelet Volume 11.4 fL (9.4-12.4); Platelet Count 158 X10*3/uL (160-400); Red Blood Count 3.94 X10*6/uL (4.60-5.80); Red Cell Distribution Width 14.6 % (11.0-16.0); White Blood Count 6.3 X10*3/uL (4.8-10.8)
[2024-05-18 06:24] LABS: Anion Gap 15 (12-20); Blood Urea Nitrogen 28 mg/dL (9-16); Carbon Dioxide 27 mmol/L (22-29); Chloride 100 mmol/L (96-108); Creatinine Clr Calc Pharmacy 48.2; Estimated Glomerular Filt Rate 43; Glucose Fasting 260 mg/dL (60-99); Potassium 4.2 mmol/L (3.3-5.1); Sodium 138 mmol/L (135-145)
[2024-05-18] MEDS: Omeprazole 20 MG CAPSULE.DR PO ×2 (06:32→16:54)
[2024-05-18 07:25] LABS: Glucose, Whole Blood 240 mg/dL (60-115)
[2024-05-18] MEDS: Insulin Lispro 100 UNIT/ML 3 ML VIAL SUBCUT ×3 (07:41→16:53)
[2024-05-18] MEDS: 0.9 % Sodium Chloride Flush 3 ML SYRINGE IVFLUSH ×3 (07:42→22:50)
[2024-05-18] MEDS: Gabapentin 400 MG CAPSULE 800 MG PO ×2 (07:42→22:49)
[2024-05-18] MEDS: Bumetanide 1 MG TABLET PO ×2 (07:42→11:36)
[2024-05-18] MEDS: Sucralfate 1 GM TABLET PO ×3 (07:42→16:54)
[2024-05-18] MEDS: allopurinoL 100 MG TABLET 50 MG PO (07:43)
[2024-05-18] MEDS: amLODIPine Besylate 5 MG TABLET PO (07:43)
[2024-05-18] MEDS: Metoprolol Tartrate 100 MG TABLET PO ×2 (07:43→22:50)
[2024-05-18] MEDS: Apixaban 5 MG TABLET PO ×2 (07:43→22:50)
[2024-05-18] MEDS: Memantine HCl 10 MG TABLET PO ×2 (07:43→22:50)
--- NOTE | 2024-05-18 10:24 | HO.PM.IMPN ---
Subjective Subjective Date of Service: 05/18/24 Interval History: feeling better Physical Exam Vital Signs: Vital Signs: Last Vital Signs Temp 96.8 F 05/18/24 07:20 Pulse 73 05/18/24 07:43 Resp 18 05/18/24 07:20 BP 152/75 H 05/18/24 07:43 Pulse Ox 95 05/18/24 07:20 O2 Del Method Room Air 05/18/24 07:20 BMI result Body Mass Index 38.7 Appearance: Lethargic abese. No acute distress. Eyes: No pallor or icterus ENT: Pharynx normal. Oral Mucosa dry Neck: Normal inspection. Neck supple. CVS: Irregularly irregular heart rate Pulses normal. Respiratory: No respiratory distress. Equal air entry bilateral, no wheezing/rales/rhonchi Abdomen: Soft and nontender. Bowel sounds are present, no mass palpable, no CVA tenderness Skin: Skin warm and dry. Normal skin color. Normal skin turgor. Extremities: No lower extremity edema. No calf tenderness Neuro: Oriented X 3. No motor deficit. No sensory deficit.No cerebellar signs , cranial nerves II-XII intact Objective Data Active Medications Acetaminophen (Acetaminophen 325 Mg Tablet) 650 mg PO Q6H PRN PRN Reason: Pain, Mild (Pain Scale 1-3), fever or headache Allopurinol (Allopurinol 100 Mg Tablet) 50 mg PO DAILY [facility] Last Admin: 05/18/24 07:43 Dose: 50 mg Documented By: NELLY Amlodipine Besylate (Amlodipine Besylate 5 Mg Tablet) 5 mg PO DAILY [facility]; Protocol Last Admin: 05/18/24 07:43 Dose: 5 mg Documented By: NELLY Apixaban (Apixaban 5 Mg Tablet) 5 mg PO BID [facility] Last Admin: 05/18/24 07:43 Dose: 5 mg Documented By: NELLY Atorvastatin Calcium (Atorvastatin Calcium 40 Mg Tablet) 40 mg PO BEDTIME [facility] Last Admin: 05/17/24 21:36 Dose: 40 mg Documented By: PRASANNA Bumetanide (Bumetanide 1 Mg Tablet) 1 mg PO BID@0900,1200 [facility]; Protocol Last Admin: 05/18/24 07:42 Dose: 1 mg Documented By: NELLY Calcium Carbonate (Calcium Carbonate 750 Mg Tab.Chew) 750 mg PO Q4H PRN PRN Reason: Heartburn Donepezil HCl (Donepezil Hcl 10 Mg Tablet) 10 mg PO BEDTIME [facility] Last Admin: 05/17/24 21:37 Dose: 10 mg Documented By: PRASANNA Gabapentin (Gabapentin 400 Mg Capsule) 800 mg PO BID [facility] Last Admin: 05/18/24 07:42 Dose: 800 mg Documented By: NELLY Glucose (Glucose Gel 15 Gm Gel..Gram.) 15 gm PO Q15M PRN; Protocol PRN Reason: per Hypoglycemia Standing Ord. Dextrose (D10) 250 mls @ 750 mls/hr IV Q15M PRN; Protocol PRN Reason: per Hypoglycemia Standing Ord. Insulin Glargine (Insulin Glargine,Hum.Rec.Anlog 100 Unit/Ml 10 Ml Vial) 18 unit SUBCUT BEDTIME [facility] Last Admin: 05/17/24 21:39 Dose: 18 unit Documented By: PRASANNA Insulin Human Lispro (Insulin Lispro 100 Unit/Ml 3 Ml Vial) 0 unit SUBCUT QIDACHS [facility]; Protocol Last Admin: 05/18/24 07:41 Dose: 4 unit Documented By: NELLY Magnesium Hydroxide (Milk Of Magnesia 30 Ml Oral.Susp) 30 ml PO DAILY PRN PRN Reason: Constipation Melatonin (Melatonin 3 Mg Tablet) 6 mg PO BEDTIME PRN PRN Reason: Insomnia Memantine (Memantine Hcl 10 Mg Tablet) 10 mg PO BID [facility] Last Admin: 05/18/24 07:43 Dose: 10 mg Documented By: NELLY Metoprolol Tartrate (Metoprolol Tartrate 100 Mg Tablet) 100 mg PO BID [facility]; Protocol Last Admin: 05/18/24 07:43 Dose: 100 mg Documented By: NELLY Omeprazole (Omeprazole 20 Mg Capsule.Dr) 20 mg PO BID@0630,1630 [facility] Last Admin: 05/18/24 06:32 Dose: 20 mg Documented By: PRASANNA Sodium Chloride (0.9 % Sodium Chloride Flush 3 Ml Syringe) 3 ml IVFLUSH QSHIFT [facility] Last Admin: 05/18/24 07:42 Dose: 3 ml Documented By: NELLY Sucralfate (Sucralfate 1 Gm Tablet) 1 gm PO TIDAC [facility] Last Admin: 05/18/24 07:42 Dose: 1 gm Documented By: NELLY Labs 05/18/24 05:52 05/18/24 05:52 Labs: Laboratory Results - last 24 hr 05/17/24 05/17/24 05/17/24 11:01 16:13 20:33 MCV MCH MCHC RDW Plt Count MPV Absolute Nucleated RBC Nucleated RBC % (auto) Anion Gap Estim Creat Clear Calc Estimated GFR POC Glucose 261 H 213 H 253 H Fasting Glucose Calcium 05/18/24 05/18/24 05:52 07:19 MCV 91.4 MCH 30.5 MCHC 33.3 RDW 14.6 Plt Count 158 L MPV 11.4 Absolute Nucleated RBC 0.000 Nucleated RBC % (auto) 0.0 Anion Gap 15 Estim Creat Clear Calc 48.2 Estimated GFR 43 POC Glucose 240 H Fasting Glucose 260 H Calcium 9.0 D Microbiology Microbiology Results: Microbiology 05/16/24 23:36 Blood Culture - Preliminary Blood - Venous Prelim: GPC Gram Stain only 05/16/24 23:36 Blood Culture - Preliminary Blood - Venous No growth after 24 hours. Assessment and Plan (1) Fever: Status: Acute Plan 79M PMH alzheimers dementia, chronic afib, cad, hfpef, dm, ckd 3, presented with fever and weakness fever not sepsis possible viral no further fevers 1/2 bcx with gpc, suspect contaminant, but given fever, continue to monitor inpateint orthostatic hypotension improved with ivf acute lactic acidosis not due sepsis, resolved chronic afib eliquis metoprolol dm basal bolus insulin ckd 3 stable hfref bumex maintenance now that hes euvolemic cad statin, not on antiplatelet? alzheimers dementia aricept, obesity weight lsos recommended full code dvt prophylaxis - eliquis reason for continued hospitalization: follow up cx Quality Stroke Does the patient have a stroke diagnosis?: No VTE Prior VTE?: No VTE Risk Level:: Medical - moderate - high VTE Device Contraindication: Treatment Not Indicated VTE Drug Contraindication: N/A - Med Ordered
[2024-05-18 11:25] LABS: Glucose, Whole Blood 357 mg/dL (60-115)
[2024-05-18 16:12] LABS: Glucose, Whole Blood 347 mg/dL (60-115)
--- NOTE | 2024-05-18 16:15 | PC.NURSE ---
Pt male family member is very loud and speaking down to park superintendent, security asked to come and speak with this individual to lower his voice and respect the staff.
--- NOTE | 2024-05-18 16:38 | MHC.CM.PN ---
CM MET WITH PT AND SON, BELTRAN, WITH A POLICE LIE[employer]ENANT PT LIVES WITH BELTRAN AND HIS FAMILY, AND BELTRAN IS HIS DIMENSION SPECIFICATION INSPECTOR, AND PROVIDES 24/7 CARE PT HAS A WALKER, COMMODE AND SHOWER CHAIR IN THE HOME HCP ON FILE PCP: DANELLE REYES IMM DELIVERED DCP: HOME, RESUME 24/7 CARE SON TO TRANSPORT
[2024-05-18] MEDS: Insulin Lispro 100 UNIT/ML 3 ML VIAL 10 UNIT SUBCUT (16:54)
[2024-05-18 17:50] LABS: Glucose, Whole Blood 400 mg/dL (60-115)
[2024-05-18] MEDS: Insulin Regular, Human 100 UNIT/ML 10 ML VIAL 10 UNIT IVPUSH (18:12)
[2024-05-18 18:43] LABS: Glucose, Whole Blood 379 mg/dL (60-115)
[2024-05-18 20:39] LABS: Glucose, Whole Blood 289 mg/dL (60-115)
[2024-05-18] MEDS: Donepezil HCl 10 MG TABLET PO (22:50)
[2024-05-18] MEDS: Atorvastatin Calcium 40 MG TABLET PO (22:50)
--- NOTE | 2024-05-18 23:12 | MHC.PIE ---
p; poc 289. note; pt family brought in insuline novolog from home - novolog 50 u given per orders. note; admelog s/s and admelog 10u still scheduled? admelog s/s and 10u held. i; dr perez notified hold admelog e; will cont to monitor
[2024-05-19 03:49] VITALS: BP 155/70; PULSE 58; RESP 18; TEMP 36.2; O2SAT 97
[2024-05-19] MEDS: Omeprazole 20 MG CAPSULE.DR PO (05:41)
[2024-05-19 07:13] VITALS: BP 137/71; PULSE 54; RESP 16; TEMP 36; O2SAT 95
[2024-05-19 07:37] LABS: Glucose, Whole Blood 180 mg/dL (60-115)
[2024-05-19] MEDS: Memantine HCl 10 MG TABLET PO (08:05)
[2024-05-19] MEDS: Sucralfate 1 GM TABLET PO ×2 (08:05→11:51)
[2024-05-19] MEDS: Gabapentin 400 MG CAPSULE 800 MG PO (08:05)
[2024-05-19] MEDS: Apixaban 5 MG TABLET PO (08:06)
[2024-05-19] MEDS: allopurinoL 100 MG TABLET 50 MG PO (08:07)
[2024-05-19] MEDS: Insulin Lispro 100 UNIT/ML 3 ML VIAL SUBCUT ×2 (08:07→11:50)
[2024-05-19] MEDS: Insulin Lispro 100 UNIT/ML 3 ML VIAL 10 UNIT SUBCUT ×2 (08:07→11:50)
[2024-05-19 08:09] VITALS: BP 111/57
[2024-05-19] MEDS: amLODIPine Besylate 5 MG TABLET PO (08:09)
[2024-05-19 08:10] VITALS: BP 111/57; PULSE 68
[2024-05-19] MEDS: Bumetanide 1 MG TABLET PO ×2 (08:10→11:51)
[2024-05-19] MEDS: Metoprolol Tartrate 100 MG TABLET PO (08:10)
[2024-05-19] MEDS: 0.9 % Sodium Chloride Flush 3 ML SYRINGE IVFLUSH (08:15)
--- NOTE | 2024-05-19 09:12 | PM.DS ---
DS: Providers Provider Date of Service: 05/19/24 Date of admission: 05/17/24 03:36 Primary care physician: Kathy Villafana MD DS: Diagnosis Discharge Diagnosis (1) Fever: Status: Acute DS: Summary Hospital Course Hospital Course: from initial hpi: 79-year-old male with pertinent history of Alzheimer's dementia, atrial fibrillation on Eliquis, insulin-dependent diabetes mellitus, congestive heart failure with preserved ejection fraction, coronary artery disease, gout, hypertension, mood disorder, gastroesophageal reflux disease, CKD stage 3 who presents to the emergency department evaluation of dizziness and generalized weakness. Patient states he has been feeling unwell for the last couple of days. Patient with poor p.o. intake about 24 hours prior to presentation. States he felt dizzy when he tried to get up and walk. Did not pass out. Also admits fevers and chills. No sick contacts. He denies cough, dysuria, change in urinary habits, change in bowel habits. No chest discomfort, palpitations, shortness of breath, nausea or vomiting. In the emergency department, imaging without any acute abnormality. Patient found to be febrile at 100.5. Lactic acid 4.3. hospital course: Patient was admitted for fevers, this was not sepsis and likely viral. Patient's fevers did not recur during hospitalization without antibiotic treatment. Blood cultures grew Gram-positive cocci but this ended up being coag-negative staph which is most likely a contaminant. Orthostatic hypotension resolved with IV fluids. For chronic AFib was continued on Eliquis and metoprolol. For diabetes with hyperglycemia was continued on basal bolus insulin but patient seemed in sensitive to lispro, was treated with his home medication of NovoLog mix and sugars became better controlled. For CKD 3 remained stable for chronic systolic CHF he was continued on Bumex maintenance after becoming euvolemic. Coronary disease was continued on statin. For Alzheimer's dementia was continued on Aricept. For obesity weight loss recommended. Patient is feeling better will be discharged home. Time Attestation Discharge Coordination Time (in mins): 35 Quality: Safe Use of Opioids Does Pt have an Active Cancer Diagnosis on the Problem List?: No Quality: Stroke Does the patient have a stroke diagnosis?: No Physical Exam Vital Signs: Vital Signs: Last Vital Signs Temp 96.8 F 05/19/24 07:13 Pulse 68 05/19/24 08:10 Resp 16 05/19/24 07:13 BP 111/57 L 05/19/24 08:10 Pulse Ox 95 05/19/24 07:13 O2 Del Method Room Air 05/19/24 07:13 BMI result Body Mass Index 38.7 Appearance: ao times 3, no acute disterss Eyes: No pallor or icterus ENT: Pharynx normal. Oral Mucosa dry Neck: Normal inspection. Neck supple. CVS: Irregularly irregular heart rate Pulses normal. Respiratory: No respiratory distress. Equal air entry bilateral, no wheezing/rales/rhonchi Abdomen: Soft and nontender. Bowel sounds are present, no mass palpable, no CVA tenderness Skin: Skin warm and dry. Normal skin color. Normal skin turgor. Extremities: No lower extremity edema. No calf tenderness Neuro: Oriented X 3. No motor deficit. No sensory deficit.No cerebellar signs , cranial nerves II-XII intact DS: Data Data Completed and Pending Completed studies during hospitalization [Text1]: Procedures Control Bleeding in Gastrointestinal Tract, Via Natural or Artificial Opening Endoscopic (08/17/23) Excision of Right Foot Skin, External Approach (10/07/21) Excision of Stomach, Pylorus, Via Natural or Artificial Opening Endoscopic, Diagnostic (08/17/23) Introduction of Mineral-based Topical Hemostatic Agent into Upper GI, Via Natural or Artificial Opening Endoscopic, [employer] 6 (08/17/23) Introduction of Other Therapeutic Substance into Upper GI, Via Natural or Artificial Opening Endoscopic (08/17/23) Transfusion of Nonautologous Frozen Plasma into Peripheral Vein, Percutaneous Approach (08/17/23) Transfusion of Nonautologous Red Blood Cells into Peripheral Vein, Percutaneous Approach (08/17/23) Labs on day of discharge: Laboratory Results - last 24 hr 05/18/24 05/18/24 05/18/24 11:15 16:01 17:46 POC Glucose 357 H* 347 H 400 H* 05/18/24 05/18/24 05/19/24 18:37 20:35 07:15 POC Glucose 379 H* 289 H 180 H Preliminary micro results at discharge 05/16/24 23:36 Blood Culture - Preliminary Blood - Venous No growth after 48 hours. Discharge Plan Discharge Anticipated Discharge Date/Time: 05/19/24 09:11 Patient Disposition: Home, Self-Care Discharge Diagnosis: viral syndrome Referrals: Kathy Villafana MD [Primary Care Provider] - 1 Week Discharge Medications: Continued Eliquis 5 mg tablet 1 tab PO BID donepezil 10 mg tablet 1 tab PO QPM CertaVite Senior 0.4-300-250 mg-mcg-mcg tablet 1 tab PO DAILY atorvastatin [Lipitor] 40 mg tablet 40 mg PO BEDTIME Qty: 30 0RF metoprolol tartrate 100 mg tablet 100 mg PO BID memantine 10 mg tablet 10 mg PO BID allopurinol 100 mg tablet 0.5 tab PO DAILY acetaminophen 500 mg tablet 1 tab PO Q6H PRN (Reason: pain) diphenhydramine HCl [Banophen] 25 mg tablet 0.5 tab PO BEDTIME PRN (Reason: Insomnia) (DME) lancets [Lancets,Ultra Thin] Misc See Rx Instructions .Route Qty: 100 0RF Rx Instructions: As directed ketoconazole 2 % shampoo 1 appl topical 2XW Rx Instructions: APPLY THE MORNING AFTER FLUCINOLONE OIL cetirizine 10 mg tablet 10 mg PO DAILY amlodipine 5 mg tablet 5 mg PO QAM gabapentin 800 mg tablet 800 mg PO BID omeprazole 20 mg capsule,delayed release(DR/EC) 20 mg PO BID alum-mag hydroxide-simeth [Antacid-Antigas] 200-200-20 mg/5 mL suspension 5 ml PO Q6H PRN (Reason: Heartburn) insulin asp prt-insulin aspart [Novolog Mix 70-30 U-100 Insuln] 100 unit/mL (70-30) solution 50 - 76 unit subcut BIDWM Rx Instructions: BG 150 or less: 50 units BG >150: 76 units sucralfate 1 gram tablet 1 g PO TIDAC (DME) insulin syringe-needle U-100 1 mL 31 gauge x 5/16 syringe See Rx Instructions subcut TID Qty: 10 Rx Instructions: As directed bumetanide 1 mg tablet 1 mg PO BID@0900,1200 Discharge Orders: Discharge Order (Routine); Ordered 05/19/24 Ordered By: Ariel Koch Diet: Advance to usual diet Activity on Discharge: As tolerated Stand Alone Forms: Patient Portal Discharge page Print Language: Belarusian Care Plan Goals: manage sugars Health Concerns: viral syndrome Plan of Treatment: continue regular care at home Assessment: see above
[2024-05-19 09:15] LABS: Glucose, Whole Blood 246 mg/dL (60-115)
[2024-05-19 11:41] LABS: Glucose, Whole Blood 195 mg/dL (60-115)
[2024-05-19 11:51] VITALS: BP 142/81
--- NOTE | 2024-05-19 12:46 | MHC.CM.PN ---
PT WILL DC HOME TODAY WITH RESUMPTION OF LINING SCRUBBER / FAMILY 18/06 CARE SON TO TRANSPORT
== END 2024-05-19 15:04 | disposition home or self-care (01) | DRG 866 ==
LOC: HO.ED 23:21 → HO.EDOVER 05-17 03:46 → HO.S3 05-17 08:05
PROVIDERS: Admitting Provider Student in an Organized Health Care Education/Training Program; Emergency Provider Internal Medicine; PCP General Practice; Visit Provider Internal Medicine
DX: B34.9 Viral infection, unspecified (principal); I13.0 Hypertensive heart and chronic kidney disease with heart failure and stage 1 through stage 4 chronic kidney disease, or unspecified chronic kidney disease; I50.32 Chronic diastolic (congestive) heart failure; E87.21 Acute metabolic acidosis; I48.20 Chronic atrial fibrillation, unspecified; I25.10 Atherosclerotic heart disease of native coronary artery without angina pectoris; N18.30 Chronic kidney disease, stage 3 unspecified; I95.1 Orthostatic hypotension; E11.65 Type 2 diabetes mellitus with hyperglycemia; K21.9 Gastro-esophageal reflux disease without esophagitis; E66.9 Obesity, unspecified; Z68.38 Body mass index [BMI] 38.0-38.9, adult; E11.22 Type 2 diabetes mellitus with diabetic chronic kidney disease; G30.9 Alzheimer's disease, unspecified; F02.80 Dementia in other diseases classified elsewhere, unspecified severity, without behavioral disturbance, psychotic disturbance, mood disturbance, and anxiety; Z20.822 Contact with and (suspected) exposure to COVID-19; Z79.4 Long term (current) use of insulin; Z79.01 Long term (current) use of anticoagulants; Z79.899 Other long term (current) drug therapy
CPT/HCPCS: 0241U; 36415; 71045; 74176; 80048; 80053; 81001; 82947; 83605; 84484; 85025; 85027; 87040; 87076; 87147; 87185; 87205; 87633; 93005; 99285; J0696

== ENCOUNTER 2024-05-17 03:36 | Outpatient (BNV) | payer MEDICARE, SELFPAY | END 2024-05-17 05:47 | PROVIDERS: Admitting Provider Student in an Organized Health Care Education/Training Program; Emergency Provider Internal Medicine; PCP General Practice; Visit Provider Internal Medicine Cardiovascular Disease | DX: I48.91 Unspecified atrial fibrillation (principal) | CPT/HCPCS: 93010 ==

== ENCOUNTER → 2024-05-17 03:36 | Outpatient (BNV) | payer MEDICARE, SELFPAY | PROVIDERS: Admitting Provider Student in an Organized Health Care Education/Training Program; Emergency Provider Internal Medicine; PCP General Practice; Visit Provider Student in an Organized Health Care Education/Training Program | DX: R50.9 Fever, unspecified (principal) | CPT/HCPCS: 99223; 99232; 99239; 99499 ==

== ENCOUNTER 2024-06-26 17:33 | Emergency (ER) | payer OTHER, SELFPAY ==
--- NOTE | ~2024-06-26 | CT_ITS ---
EXAMINATION: CT ABDOMEN AND PELVIS WITHOUT CONTRAST CLINICAL INFORMATION: Rectal bleeding and pain. COMPARISON: 05/17/2024 TECHNIQUE: Multidetector volumetric imaging was performed from the superior aspect of the liver through the pubic symphysis. Sagittal and coronal reformatted images were obtained on the technologist's workstation. This CT examination was performed using dose optimization techniques as appropriate, variously including the following: *Automated exposure control *Adjustment of mA and/or kV according to patient size (this includes techniques or standardized protocols for targeted exams where dose is matched to indication/reason for exam; i.e. extremities or head) *Use of iterative reconstruction technique DLP: 1069 mGy-cm FINDINGS: LUNG BASES: The heart size is normal. No pericardial effusion. Multivessel coronary artery atherosclerotic calcification. Trace left pleural effusion is present.. HEPATOBILIARY: Liver has normal size, shape, and attenuation. Gallbladder has a normal appearance. No dilated bile ducts. PANCREAS: No acute findings within the atrophied pancreas. No edema, pancreatic ductal dilatation or mass. SPLEEN: Normal. ADRENAL GLANDS: Normal. KIDNEYS AND URETERS: Kidneys are normal in size. No nephrolithiasis or hydronephrosis. The ureters are unremarkable. BLADDER: Unremarkable. BOWEL AND PERITONEUM: No dilated bowel loops. There appears to be a metallic clip of the proximal stomach. The appendix is normal. No edematous thickening of bowel acevedo. No specific source of bleeding is identified. There is no perirectal or perianal fluid collection. The rectum, which contains some relatively dense inspissated fecal material, measures up to 6.3 cm transverse compared to 8 cm on 05/17/2024. ABDOMINAL WALL: Mild edema of subcutaneous tissues. A very small fat-containing umbilical hernia is present. VASCULATURE: Abdominal aorta is normal in caliber. No retroperitoneal hematoma. LYMPH NODES: No pathologic sized lymph nodes in the abdomen or pelvis. No inguinal lymphadenopathy. PELVIC VISCERA: There is prostatomegaly. Prostate gland is 5.5 cm transverse dimension. MUSCULOSKELETAL: No acute abnormalities within the visualized degenerated spine. Chronic severe loss of disc height and vacuum disc phenomenon at L5-S1. CT/CT abdomen pelvis wo IV con IMPRESSION: There is a decreased amount of fecal material in the rectum compared to 05/17/2024. It is possible that a stool ball/inspissated fecal material in the rectum is a source of symptoms. Correlate for any history of constipation. However, there is no overt proctitis and no evidence of colitis or bowel obstruction.
[2024-06-26 17:36] VITALS: BP 110/70; PULSE 60; O2SAT 96; BMI 36.9
[2024-06-26 17:43] VITALS: BP 138/68; PULSE 61; RESP 19; TEMP 36.8; O2SAT 93
[2024-06-26 18:04] LABS: MANUAL DIFF FLAG NO
[2024-06-26 18:06] LABS: Basophils Percent Auto 0.5 % (0-2); Eosinophils Absolute Auto 0.2 X10*3/uL (0.0-0.4); Hematocrit 38.3 % (42.0-52.0); Hemoglobin 12.6 g/dl (14.0-18.0); Imm Gran Abs Auto 0.01 X10*3/uL (0.00-0.03); Imm Gran Pct Auto 0.1 % (0.0-0.4); Lymphocytes Absolute Auto 1.2 X10*3/uL (1.2-4.9); Lymphocytes Percent Auto 15.5 % (20-40); Mean Corpuscular HGB Conc 32.9 g/dl (31.0-36.0); Mean Corpuscular Hemoglobin 30.4 pg (27.0-33.0); Mean Corpuscular Volume 92.5 fL (80.0-98.0); Mean Platelet Volume 11.4 fL (9.4-12.4); Monocytes Absolute Auto 0.6 X10*3/uL (0.1-1.2); Monocytes Percent Auto 7.1 % (2-11); Neutrophils Absolute Auto 5.7 x10*3/uL (2.0-8.3); Neutrophils Percent Auto 73.8 % (45-73); Platelet Count 185 X10*3/uL (160-400); Red Blood Count 4.14 X10*6/uL (4.60-5.80); Red Cell Distribution Width 14.8 % (11.0-16.0); White Blood Count 7.8 X10*3/uL (4.8-10.8)
--- NOTE | 2024-06-26 18:08 | PC.NURSE ---
pt biba from home. vss and up to date. nsr on the cardiac catheterization technician. pt recently discharged from [facility] w/ GI bleed. 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 pt is +thinners (eloquis).pt denies any abd pain/dizziness/lightheadedness. hx dementia. confused/altered baseline. 20gIV placed in the left forearm - labs obtained/sent to lab. access wrapped w/ curex bandage for safety precautions. no sob/wob noted. respirations even/unlabored. plan of care ongoing. call gamez placed within reach.
[2024-06-26 18:13] LABS: INTERNATIONAL NORM RATIO 1.4 (0.9-1.1); Prothrombin Time 16.7 SEC (11.1-13.3)
--- NOTE | 2024-06-26 18:13 | ED.GENADULT ---
HPI - General Adult General Chief complaint: GI Bleed Stated complaint: RECTAL BLEEDING Time Seen by Provider: 06/26/24 17:53 Source: patient, family, RN notes reviewed, old records reviewed and search analyst Mode of arrival: EMS Limitations: language barrier History of Present Illness ED Provider: Kiet HPI narrative: 79 year odl primarily Dominican speaking male with history of Alzheimer's dementia, atrial fibrillation on Eliquis, diabetes, heart failure with preserved ejection fraction, hyperlipidemia, hypertension, coronary artery disease, chronic kidney disease, history of GI bleed presents for evaluation of bloody stool. Per the patient's son and through a program developer, the patient apparently had a small amount of dark red blood in his brief after having a bowel movement today Per the patient and his son, the patient has appeared to be in his normal state of health He has not complained of any dizziness, weakness The patient's son is concerned the patient may have constipation He is concerned, as last July, the patient had a severe GI bleed requiring multiple blood transfusions, and the patient remains on anticoagulation Related Data Home Medications ?Medication ?Instructions ?Recorded ?Confirmed apixaban 5 mg tablet (Eliquis) 1 tab PO BID 09/05/21 05/17/24 donepezil 10 mg tablet 1 tab PO QPM 09/05/21 05/17/24 jnrzekyl-iyw-hngoe acid 0.4 1 tab PO DAILY 09/05/21 05/17/24 mg-lycopene 300 mcg-lutein 250 mcg tablet (CertaVite Senior) acetaminophen 500 mg tablet 1 tab PO Q6H PRN pain 10/07/21 05/17/24 allopurinol 100 mg tablet 0.5 tab PO DAILY gout pain 10/07/21 05/17/24 diphenhydramine HCl 25 mg tablet 0.5 tab PO BEDTIME PRN Insomnia 10/07/21 05/17/24 (Banophen) insulin syringe-needle U-100 1 mL #10 ea 12/22/21 05/08/22 31 gauge x 16 bumetanide 1 mg tablet 1 mg PO BID@0900,1200 05/08/22 05/17/24 memantine 10 mg tablet 10 mg PO BID 05/08/22 05/17/24 metoprolol tartrate 100 mg tablet 100 mg PO BID 05/08/22 05/17/24 amlodipine 5 mg tablet 5 mg PO QAM 09/22/23 06/22/24 cetirizine 10 mg tablet 10 mg PO DAILY congestion 08/17/23 05/17/24 ketoconazole 2 % shampoo 1 appl topical 2XW 08/17/23 05/17/24 aluminum-mag hydroxide-simethicone 5 ml PO Q6H PRN Heartburn 05/17/24 05/17/24 200 mg-200 mg-20 mg/5 mL oral susp (Antacid-Antigas) gabapentin 800 mg tablet 800 mg PO BID 05/17/24 05/17/24 insulin aspar prt-insulin aspart 50 - 76 unit subcut BIDWM 05/17/24 05/17/24 100 unit/mL (70-30) subcutaneous soln (Novolog Mix 70-30 U-100 Insuln) omeprazole 20 mg capsule,delayed 20 mg PO BID 05/17/24 05/17/24 release sucralfate 1 gram tablet 1 g PO TIDAC 05/17/24 05/17/24 Previous Rx's ?Medication ?Instructions ?Recorded atorvastatin 40 mg tablet (Lipitor) 40 mg PO BEDTIME #30 tabs 09/09/21 lancets (Lancets,Ultra Thin) #100 ea 10/21/21 hydrocortisone acetate 25 mg 25 mg MI BID #12 ea 06/26/24 rectal suppository (Anusol-HC) magnesium citrate (OneLAX 300 ml PO DAILY PRN constipation 06/26/24 Magnesium Citrate oral solution) #296 mL polyethylene glycol 3350 17 17 g PO DAILY 2 weeks #238 grams 06/26/24 gram/dose oral powder (Miralax) Allergies Allergy/AdvReac Type Severity Reaction Status Date / Time No Known Allergies Allergy Verified 06/26/24 17:40 Review of Systems Constitutional: Constitutional: Denies body ache(s), Denies chills and Denies headache(s) Eyes: Eyes: Denies blurry vision ENT: Denies vertigo, Denies dizziness and Denies headache(s) Cardiovascular: Cardiovascular: Denies chest pain and Denies dyspnea Respiratory: Respiratory: Denies cough and Denies dyspnea Gastrointestinal: Gastrointestinal: Denies abdominal pain, Denies melena, Reports hematochezia, Reports change in stool character and Denies loose stools Musculoskeletal: Musculoskeletal: Denies back pain Integumentary/Breasts: Skin/Breast: Denies rash Neurologic: Denies vertigo, Denies dizziness and Denies headache(s) [facility] Past Medical History Medical History CAD (coronary artery disease) Trash foot Diabetic foot infection Heart failure with preserved ejection fraction HLD (hyperlipidemia) Diabetes mellitus Atrial fibrillation NSTEMI (non-ST elevated myocardial infarction) Alzheimer's dementia Kidney failure Diabetes HTN (hypertension) Surgical History No pertinent past surgical history Family History Family History Father No problems noted. Mother No problems noted. Social History Social History Household Members: Family Household Members Other:: sons and daughter in law Housing: Apartment Do you presently have visiting nurse or other home services: No Alcohol intake: never Patient Tobacco Use Status: Never used Tobacco Smoked in Last 30 Days: No e-Cigarette/Vaping Use: Never Used Second Hand Smoke Exposure: No Use of substances other than those prescribed or required for medical reasons: No Advance Directives: Yes Advance Directives on File: Yes Advance Directives Date on File: 09/06/21 Do you have a plan to hurt others: No Plan service: No Current occupational status: retired Physical Exam ED Vital Signs: Vital Signs - 24 hr 06/26/24 17:43 06/26/24 20:00 Temperature 98.2 F 98.1 F Pulse Rate 61 56 Respiratory Rate 19 15 Blood Pressure 138/68 140/71 H Pulse Oximetry 93 93 Oxygen Delivery Method Room Air Room Air BMI result Body Mass Index 36.9 Const General: healthy appearing, comfortable, no acute distress, alert and awake Nutritional Appearance: well nourished Orientation/consciousness: patient oriented x3 HENMT Head: Yes normocephalic and Yes atraumatic Eyes Eyelids: Yes eyelids normal Conjunctivae: conjunctivae normal Sclerae: sclerae normal Corneas: corneas normal Pupils: Equal, round and reactive pupils present EOM: EOMs intact bilaterally Neck Neck: Yes full ROM Resp Effort & Inspection: normal respiratory effort, able to speak in complete sentences and not labored Cardio Rate: regular rate Rhythm: regular rhythm GI Inspection: No distended Palpation (GI): Soft to palpation, not firm, nontender, no guarding and not rigid Rectal Exam - Male: Yes visual inspection normal, Yes normal sphincter tone, No Abnormal stool present (Light brown stool), Yes heme positive stool, No External hemorrhoid(s) present and No mass Skin General skin exam: elasticity normal Neuro General: patient oriented x3 Cranial nerves: Yes Equal, round and reactive pupils present and Yes Bilaterally intact EOM present Cognition (Neuro): normal cognition Extrem Other: Moving all extremities well without any obvious deformities Course Reevaluation(s) Reevaluation #1: Patient's hemoglobin hematocrit are essentially flat. His hemoglobin did drop from 12.6 and 12.5, but this also may be related to tripping with IV fluids. The patient is stable for discharge at this time. He was given strict return precautions to keep an eye on black or bloody bowel movements. We will treat his constipation with MiraLax and magnesium citrate. He will also be given Anusol suppositories for likely internal hemorrhoids Time: 21:19 Medications Administered Discontinued Medications Generic Name Dose Route Start Last Admin Trade Name Freq PRN Reason Stop Dose Admin Sodium Chloride 1,000 mls @ 999 mls/hr 06/26/24 18:30 06/26/24 20:14 Ns IV 06/26/24 19:30 Infused .Q1H1M REYNALDO Infusion Medical Decision Making Medical Decision Making [facility] Narrative: 79-year-old male with past medical history as documented above presents for evaluation of bloody stool. He is quite well appearing, vital signs within normal limits, rectal exam shows light brown stool. Most likely diagnosis at this time is internal hemorrhoids given the reported constipation. The patient is anticoagulated, we will get a CT scan of the abdomen pelvis as the patient does have a long history of Parkinson's and is an unreliable historian. Differential Diagnosis Differential Diagnoses: The differential diagnosis associated with the presentation includes GI bleed Constipation Internal hemorrhoids External hemorrhoids Lab Data [facility] Lab Attestation statement: I reviewed the patient's lab results. Patient has no leukocytosis. He does have a mild normocytic anemia which is at or just above his baseline of around 12. Hematocrit 38.3, again consistent with his baseline. Patient's chemistries are significant for a BUN of 32 and a creatinine of 1.95. He does have history of chronic kidney disease and this is consistent with his baseline of between 1.8 and 2.1 dating back to August of last year. The patient's glucose is elevated to 291 but no evidence of DKA as the patient's anion gap is 16, his carbon dioxide is 28. Electrolytes are otherwise within normal limits 06/26/24 21:05 06/26/24 17:57 Labs: Lab Results 06/26/24 06/26/24 06/26/24 Range/Units 17:57 18:30 21:05 WBC 7.8 (4.8-10.8) X10*3/uL RBC 4.14 L (4.60-5.80) X10*6/uL Hgb 12.6 L 12.5 L (14.0-18.0) g/dl Hct 38.3 L 37.1 L (42.0-52.0) % MCV 92.5 (80.0-98.0) fL MCH 30.4 (27.0-33.0) pg MCHC 32.9 (31.0-36.0) g/dl RDW 14.8 (11.0-16.0) % Plt Count 185 (160-400) X10*3/uL MPV 11.4 (9.4-12.4) fL Immature Gran % (Auto) 0.1 (0.0-0.4) % Neut % (Auto) 73.8 H (45-73) % Lymph % (Auto) 15.5 L (20-40) % Marin % (Auto) 7.1 (2-11) % Eos % (Auto) 3.0 (0-4) % Baso % (Auto) 0.5 (0-2) % Lymph # (Auto) 1.2 (1.2-4.9) X10*3/uL Marin # (Auto) 0.6 (0.1-1.2) X10*3/uL Eos # (Auto) 0.2 (0.0-0.4) X10*3/uL Baso # (Auto) 0.0 (0.0-0.2) X10*3/uL Abs Immat Gran (auto) 0.01 (0.00-0.03) X10*3/uL Absolute Neuts (auto) 5.7 (2.0-8.3) x10*3/uL Absolute Nucleated RBC 0.000 (0.0-0.012) X10*3/uL Nucleated RBC % (auto) 0.0 (0.0-0.2) /100WBC PT 16.7 H (11.1-13.3) SEC INR 1.4 H (0.9-1.1) APTT 35.9 (26.0-36.8) SEC Sodium 139 (135-145) mmol/L Potassium 4.3 (3.3-5.1) mmol/L Chloride 99 (96-108) mmol/L Carbon Dioxide 28 (22-29) mmol/L Anion Gap 16 (12-20) BUN 32 H (9-16) mg/dL Creatinine 1.95 H (0.5-1.4) mg/dL Estim Creat Clear Calc 40.4 Estimated GFR 33 Random Glucose 291 H (60-115) mg/dL Calcium 9.2 (8.4-10.2) mg/dL Total Bilirubin 0.7 (0.0-1.0) mg/dL AST 29 (5-37) U/L ALT 18 (0-40) U/L Alkaline Phosphatase 104 (39-117) U/L Troponin I High Sens 5.1 D (<3.5-35.0) ng/L Total Protein 7.9 (6.5-8.0) g/dL Albumin 4.0 (3.5-5.0) g/dL Stool Occult Blood POSITIVE (NEGATIVE) Discharge Plan Discharge Clinical Impression: Acute constipation, Bright red blood per rectum Patient Disposition: Home, Self-Care Instructions: Constipation (ED), Rectal Bleeding (ED), High Fiber Diet (ED) Additional Instructions: Your workup in the ER today was reassuring. Your blood counts were stable and did not drop significantly. Your CT scan did show moderate constipation which is likely contributing to the minimal blood in the bowel movements. Keep a close eye for any worsening black or bloody stool You may follow-up with your GI doctor Return for new or worsening symptoms Increase fluid and fiber intake in your diet Take magnesium citrate and MiraLax as directed Prescriptions: New polyethylene glycol 3350 [Miralax] 17 gram/dose powder 17 g PO DAILY 14 Days Qty: 238 0RF magnesium citrate [OneLAX Magnesium Citrate] Solution 300 ml PO DAILY PRN (Reason: constipation) Qty: 296 0RF hydrocortisone acetate [Anusol-HC] 25 mg suppository 25 mg MI BID Qty: 12 0RF No Action Eliquis 5 mg tablet 1 tab PO BID donepezil 10 mg tablet 1 tab PO QPM CertaVite Senior 0.4-300-250 mg-mcg-mcg tablet 1 tab PO DAILY atorvastatin [Lipitor] 40 mg tablet 40 mg PO BEDTIME Qty: 30 0RF metoprolol tartrate 100 mg tablet 100 mg PO BID memantine 10 mg tablet 10 mg PO BID allopurinol 100 mg tablet 0.5 tab PO DAILY acetaminophen 500 mg tablet 1 tab PO Q6H PRN (Reason: pain) diphenhydramine HCl [Banophen] 25 mg tablet 0.5 tab PO BEDTIME PRN (Reason: Insomnia) (DME) lancets [Lancets,Ultra Thin] Misc See Rx Instructions .Route Qty: 100 0RF Rx Instructions: As directed ketoconazole 2 % shampoo 1 appl topical 2XW Rx Instructions: APPLY THE MORNING AFTER FLUCINOLONE OIL cetirizine 10 mg tablet 10 mg PO DAILY amlodipine 5 mg tablet 5 mg PO QAM gabapentin 800 mg tablet 800 mg PO BID omeprazole 20 mg capsule,delayed release(DR/EC) 20 mg PO BID alum-mag hydroxide-simeth [Antacid-Antigas] 200-200-20 mg/5 mL suspension 5 ml PO Q6H PRN (Reason: Heartburn) insulin asp prt-insulin aspart [Novolog Mix 70-30 U-100 Insuln] 100 unit/mL (70-30) solution 50 - 76 unit subcut BIDWM Rx Instructions: BG 150 or less: 50 units BG >150: 76 units sucralfate 1 gram tablet 1 g PO TIDAC (DME) insulin syringe-needle U-100 1 mL 31 gauge x 5/16 syringe See Rx Instructions subcut TID Qty: 10 Rx Instructions: As directed bumetanide 1 mg tablet 1 mg PO BID@0900,1200 Print Language: Dominican
[2024-06-26 18:15] LABS: Partial Thromboplastin Time 35.9 SEC (26.0-36.8)
[2024-06-26 18:23] LABS: Alanine Aminotransferase 18 U/L (0-40); Alkaline Phosphatase 104 U/L (39-117); Anion Gap 16 (12-20); Aspartate Amino Transferase 29 U/L (5-37); Bilirubin Total 0.7 mg/dL (0.0-1.0); Blood Urea Nitrogen 32 mg/dL (9-16); Calcium 9.2 mg/dL (8.4-10.2); Carbon Dioxide 28 mmol/L (22-29); Chloride 99 mmol/L (96-108); Creatinine Clr Calc Pharmacy 40.4; Estimated Glomerular Filt Rate 33; Glucose Random 291 mg/dL (60-115); Potassium 4.3 mmol/L (3.3-5.1); Sodium 139 mmol/L (135-145); Total Protein 7.9 g/dL (6.5-8.0)
[2024-06-26 18:29] LABS: Troponin-I High Sensitivity 5.1 ng/L (<3.5-35.0)
[2024-06-26 18:35] LABS: OBS Int Ctl Valid YES; OBS1 POSITIVE (NEGATIVE)
--- NOTE | 2024-06-26 18:40 | PC.NURSE ---
pt to CT at this time.
[2024-06-26] MEDS: 0.9 % Sodium Chloride 1,000 ML 999 ML IV (18:45)
[2024-06-26 20:00] VITALS: BP 140/71; PULSE 56; RESP 15; TEMP 36.7; O2SAT 93
[2024-06-26 21:12] LABS: Hematocrit 37.1 % (42.0-52.0); Hemoglobin 12.5 g/dl (14.0-18.0)
[2024-06-26 21:42] VITALS: BP 140/71; PULSE 56; RESP 15; TEMP 36.7; O2SAT 93
== END 2024-06-26 21:43 | disposition home or self-care (01) ==
PROVIDERS: Physician Assistant; Emergency Provider Emergency Medicine; PCP General Practice
DX: K59.00 Constipation, unspecified (principal); K62.5 Hemorrhage of anus and rectum; E11.9 Type 2 diabetes mellitus without complications; I10 Essential (primary) hypertension; E78.5 Hyperlipidemia, unspecified; I48.91 Unspecified atrial fibrillation; Z79.01 Long term (current) use of anticoagulants; Z79.899 Other long term (current) drug therapy; Z79.02 Long term (current) use of antithrombotics/antiplatelets; Z79.4 Long term (current) use of insulin
CPT/HCPCS: 36415; 74176; 80053; 82272; 84484; 85014; 85018; 85025; 85610; 85730; 96360; 99284

== ENCOUNTER 2024-09-19 23:52 | Emergency (ER) | payer OTHER, SELFPAY ==
--- NOTE | ~2024-09-19 | XR_ITS ---
EXAMINATION: XR CHEST CLINICAL INFORMATION: Cough. COMPARISON: May 17, 2024 TECHNIQUE: Frontal view of the chest was obtained. FINDINGS: The cardiomediastinal silhouette is stable. There appears to be chronic blunting of the left costophrenic angle. The right lung is clear. The bony structures and soft tissues are unremarkable. There has been no significant interval change. The bony structures and soft tissues are unremarkable. XR/XR chest 1V IMPRESSION: Chronic blunting of the left costophrenic angle. No acute cardiopulmonary process. Electronically signed by: Nazario Joyner MD 09/20/2024 02:28 AM EDT
[2024-09-20 00:04] VITALS: BP 120/75; BP 127/62; PULSE 55; PULSE 58; RESP 16; TEMP 36.3; O2SAT 100; O2SAT 98; BMI 34.8
--- NOTE | 2024-09-20 00:11 | ECG_ITS ---
Test Reason : DYSPNEA Blood Pressure : / mmHG Vent. Rate : 053 BPM Atrial Rate : 000 BPM P-R Int : 000 ms QRS Dur : 082 ms QT Int : 430 ms P-R-T Axes : 000 039 082 degrees QTc Int : 403 ms Atrial fibrillation with slow ventricular response Low voltage QRS Possible Inferior infarct , age undetermined Abnormal ECG When compared with ECG of 17-MAY-2024 05:50, QT has shortened Referred By: Josef Lundberg Electronically Signed By:Brendon Joaquin
[2024-09-20 01:16] LABS: Influenza A PCR NEGATIVE (Negative); Influenza B PCR NEGATIVE (Negative); Resp Syncy Virus RNA Qual PCR NEGATIVE (Negative); SARS COV2 PCR INHOUSE NEGATIVE (Negative)
--- NOTE | 2024-09-20 01:38 | ED.SOB ---
HPI - SOB/Dyspnea General Chief Complaint: Dyspnea Stated Complaint: COUGH FOR 2DAYS Time Seen by Provider: 09/19/24 23:56 Source: patient and family Mode of arrival: EMS Limitations: no limitations Related Data Home Medications ?Medication ?Instructions ?Recorded ?Confirmed apixaban 5 mg tablet (Eliquis) 1 tab PO BID 09/05/21 05/17/24 donepezil 10 mg tablet 1 tab PO QPM 09/05/21 05/17/24 alwhphdw-orw-xwcwu acid 0.4 1 tab PO DAILY 09/05/21 05/17/24 mg-lycopene 300 mcg-lutein 250 mcg tablet (CertaVite Senior) acetaminophen 500 mg tablet 1 tab PO Q6H PRN pain 10/07/21 05/17/24 allopurinol 100 mg tablet 0.5 tab PO DAILY gout pain 10/07/21 05/17/24 diphenhydramine HCl 25 mg tablet 0.5 tab PO BEDTIME PRN Insomnia 10/07/21 05/17/24 (Banophen) insulin syringe-needle U-100 1 mL #10 ea 12/22/21 05/08/22 31 gauge x 16 bumetanide 1 mg tablet 1 mg PO BID@0900,1200 05/08/22 05/17/24 memantine 10 mg tablet 10 mg PO BID 05/08/22 05/17/24 metoprolol tartrate 100 mg tablet 100 mg PO BID 05/08/22 05/17/24 amlodipine 5 mg tablet 5 mg PO QAM 08/17/23 05/17/24 cetirizine 10 mg tablet 10 mg PO DAILY congestion 08/17/23 05/17/24 ketoconazole 2 % shampoo 1 appl topical 2XW 08/17/23 05/17/24 aluminum-mag hydroxide-simethicone 5 ml PO Q6H PRN Heartburn 05/17/24 05/17/24 200 mg-200 mg-20 mg/5 mL oral susp (Antacid-Antigas) gabapentin 800 mg tablet 800 mg PO BID 05/17/24 05/17/24 insulin aspar prt-insulin aspart 50 - 76 unit subcut BIDWM 05/17/24 05/17/24 100 unit/mL (70-30) subcutaneous soln (Novolog Mix 70-30 U-100 Insuln) omeprazole 20 mg capsule,delayed 20 mg PO BID 05/17/24 05/17/24 release sucralfate 1 gram tablet 1 g PO TIDAC 05/17/24 05/17/24 Previous Rx's ?Medication ?Instructions ?Recorded atorvastatin 40 mg tablet (Lipitor) 40 mg PO BEDTIME #30 tabs 09/09/21 lancets (Lancets,Ultra Thin) #100 ea 10/21/21 hydrocortisone acetate 25 mg 25 mg AK BID #12 ea 06/26/24 rectal suppository (Anusol-HC) magnesium citrate (OneLAX 300 ml PO DAILY PRN constipation 06/26/24 Magnesium Citrate oral solution) #296 mL polyethylene glycol 3350 17 17 g PO DAILY 2 weeks #238 grams 06/26/24 gram/dose oral powder (Miralax) cefuroxime axetil 500 mg tablet 500 mg PO BID 7 days #14 tabs 09/20/24 Allergies Allergy/AdvReac Type Severity Reaction Status Date / Time No Known Allergies Allergy Verified 09/20/24 00:07 [facility] Past Medical History Medical History CAD (coronary artery disease) Trash foot Diabetic foot infection Heart failure with preserved ejection fraction HLD (hyperlipidemia) Diabetes mellitus Atrial fibrillation NSTEMI (non-ST elevated myocardial infarction) Alzheimer's dementia Kidney failure Diabetes HTN (hypertension) Surgical History No pertinent past surgical history Family History Family History Father No problems noted. Mother No problems noted. Social History Social History Household Members: Family Household Members Other:: sons and daughter in law Housing: Apartment Do you presently have visiting nurse or other home services: No Alcohol intake: never Patient Tobacco Use Status: Never used Tobacco Smoked in Last 30 Days: No e-Cigarette/Vaping Use: Never Used Second Hand Smoke Exposure: No Use of substances other than those prescribed or required for medical reasons: No Advance Directives: Yes Advance Directives on File: Yes Advance Directives Date on File: 09/06/21 Do you have a plan to hurt others: No Plan service: No Current occupational status: retired Physical Exam Vital Signs: Vital Signs: Last Vital Signs Temp 98.0 F 09/20/24 02:07 Pulse 60 09/20/24 02:07 Resp 16 09/20/24 02:07 BP 128/63 09/20/24 02:07 Pulse Ox 98 09/20/24 02:07 O2 Del Method Room Air 09/20/24 02:07 BMI result Body Mass Index 34.8 Medications Administered Discontinued Medications Generic Name Dose Route Start Last Admin Trade Name Freq PRN Reason Stop Dose Admin Cefuroxime Axetil 500 mg 09/20/24 01:44 09/20/24 01:56 Cefuroxime Axetil 500 Mg Tablet PO 09/20/24 01:45 500 mg ONCE ONE Administration Medical Decision Making Lab Data Labs: Lab Results 09/20/24 Range/Units 00:32 Influenza Type A (PCR) NEGATIVE (Negative) Influenza Type B (PCR) NEGATIVE (Negative) RSV RNA Qual (PCR) NEGATIVE (Negative) SARS-CoV-2 RNA (RT-PCR) NEGATIVE (Negative) Discharge Plan Discharge Clinical Impression: Acute bronchitis Patient Disposition: Home, Self-Care Instructions: Acute Bronchitis (ED) Additional Instructions: Take antibiotic as prescribed Cough drops as prescribed Report to the ER if worsening of shortness a breath/cough or chest pain Prescriptions: New cefuroxime axetil 500 mg tablet 500 mg PO BID 7 Days Qty: 14 0RF No Action Eliquis 5 mg tablet 1 tab PO BID donepezil 10 mg tablet 1 tab PO QPM CertaVite Senior 0.4-300-250 mg-mcg-mcg tablet 1 tab PO DAILY atorvastatin [Lipitor] 40 mg tablet 40 mg PO BEDTIME Qty: 30 0RF metoprolol tartrate 100 mg tablet 100 mg PO BID memantine 10 mg tablet 10 mg PO BID allopurinol 100 mg tablet 0.5 tab PO DAILY acetaminophen 500 mg tablet 1 tab PO Q6H PRN (Reason: pain) diphenhydramine HCl [Banophen] 25 mg tablet 0.5 tab PO BEDTIME PRN (Reason: Insomnia) (DME) lancets [Lancets,Ultra Thin] Misc See Rx Instructions .Route Qty: 100 0RF Rx Instructions: As directed ketoconazole 2 % shampoo 1 appl topical 2XW Rx Instructions: APPLY THE MORNING AFTER FLUCINOLONE OIL cetirizine 10 mg tablet 10 mg PO DAILY amlodipine 5 mg tablet 5 mg PO QAM gabapentin 800 mg tablet 800 mg PO BID omeprazole 20 mg capsule,delayed release(DR/EC) 20 mg PO BID alum-mag hydroxide-simeth [Antacid-Antigas] 200-200-20 mg/5 mL suspension 5 ml PO Q6H PRN (Reason: Heartburn) insulin asp prt-insulin aspart [Novolog Mix 70-30 U-100 Insuln] 100 unit/mL (70-30) solution 50 - 76 unit subcut BIDWM Rx Instructions: BG 150 or less: 50 units BG >150: 76 units sucralfate 1 gram tablet 1 g PO TIDAC polyethylene glycol 3350 [Miralax] 17 gram/dose powder 17 g PO DAILY 14 Days Qty: 238 0RF magnesium citrate [OneLAX Magnesium Citrate] Solution 300 ml PO DAILY PRN (Reason: constipation) Qty: 296 0RF hydrocortisone acetate [Anusol-HC] 25 mg suppository 25 mg AK BID Qty: 12 0RF (DME) insulin syringe-needle U-100 1 mL 31 gauge x 5/16 syringe See Rx Instructions subcut TID Qty: 10 Rx Instructions: As directed bumetanide 1 mg tablet 1 mg PO BID@0900,1200 Interventions: ED Discharge Assessment Last Done: 09/20/24 02:07 Discharge Date/Time: 09/20/24 02:08 Print Language: Montserratian
[2024-09-20] MEDS: cefuroxime axetiL 500 MG TABLET PO (01:56)
--- NOTE | 2024-09-20 01:59 | PC.NURSE ---
Medicated per Jan, reviewed discharge instructions with pt. pt verbalized understanding, no sign of respiratory distress, pt wheeled by family.
[2024-09-20 02:00] VITALS: BP 128/63; PULSE 60; RESP 16; TEMP 36.7; O2SAT 98
[2024-09-20 02:07] VITALS: BP 128/63; PULSE 60; RESP 16; TEMP 36.7; O2SAT 98
== END 2024-09-20 02:08 | disposition home or self-care (01) ==
PROVIDERS: Emergency Provider Internal Medicine; PCP General Practice
DX: J20.9 Acute bronchitis, unspecified (principal); R05.9 Cough, unspecified; E11.9 Type 2 diabetes mellitus without complications; I10 Essential (primary) hypertension; E78.5 Hyperlipidemia, unspecified; Z03.818 Encounter for observation for suspected exposure to other biological agents ruled out
CPT/HCPCS: 0241U; 71045; 93005; 99283; 99285

== ENCOUNTER → 2024-09-20 00:11 | Outpatient (BNV) | payer OTHER, SELFPAY | PROVIDERS: Emergency Provider Internal Medicine; PCP General Practice; Visit Provider Internal Medicine Cardiovascular Disease | DX: I48.91 Unspecified atrial fibrillation (principal) | CPT/HCPCS: 93010 ==

== ENCOUNTER 2024-11-25 09:35 | Inpatient (IN) | payer OTHER, SELFPAY ==
--- NOTE | ~2024-11-25 | XR_ITS ---
EXAMINATION: XR CHEST CLINICAL INFORMATION: PROD COUGH COMPARISON: Chest 09/20/2024 TECHNIQUE: 2 views of the chest were obtained. FINDINGS: The lungs are well-expanded and clear. The heart size is enlarged. Pulmonary vascularity is normal. There is moderate spondylosis throughout dorsal spine. No aggressive lytic or sclerotic process seen. XR/XR chest 2V IMPRESSION: Unremarkable chest exam. Electronically signed by: Demond Barajas MD 11/25/2024 11:44 AM [facility]
--- NOTE | ~2024-11-25 | XR_ITS ---
EXAMINATION: XR CHEST CLINICAL INFORMATION: shortness of brath, hypoxia COMPARISON: Chest 11/25/2024 TECHNIQUE: Frontal view of the chest was obtained. FINDINGS: There is cardiomegaly with bilateral prominent pulmonary vascularity suggestive of mild congestion. There is no pleural effusion or consolidation seen. Moderate right lateral dorsal spine spondylosis is noted. XR/XR chest 1V IMPRESSION: Cardiomegaly with mild CHF. Electronically signed by: Demond Barajas MD 11/28/2024 10:27 AM [facility]
[2024-11-25 10:11] VITALS: BP 126/48; PULSE 67; RESP 18; TEMP 36.3; O2SAT 95; BMI 32.1
[2024-11-25 10:43] LABS: MANUAL DIFF FLAG NO
[2024-11-25 10:46] LABS: Basophils Absolute Auto 0.1 X10*3/uL (0.0-0.2); Eosinophils Absolute Auto 0.3 X10*3/uL (0.0-0.4); Eosinophils Percent Auto 4.8 % (0-4); Hematocrit 38.1 % (42.0-52.0); Hemoglobin 12.4 g/dl (14.0-18.0); Imm Gran Abs Auto 0.01 X10*3/uL (0.00-0.03); Imm Gran Pct Auto 0.2 % (0.0-0.4); Mean Corpuscular HGB Conc 32.5 g/dl (31.0-36.0); Mean Corpuscular Hemoglobin 30.8 pg (27.0-33.0); Mean Corpuscular Volume 94.8 fL (80.0-98.0); Mean Platelet Volume 12.3 fL (9.4-12.4); Monocytes Absolute Auto 0.8 X10*3/uL (0.1-1.2); Monocytes Percent Auto 13.3 % (2-11); Neutrophils Absolute Auto 3.9 x10*3/uL (2.0-8.3); Neutrophils Percent Auto 63.7 % (45-73); Platelet Count 159 X10*3/uL (160-400); Red Blood Count 4.02 X10*6/uL (4.60-5.80); Red Cell Distribution Width 15.3 % (11.0-16.0); White Blood Count 6.1 X10*3/uL (4.8-10.8)
[2024-11-25 11:01] LABS: Anion Gap 14 (12-20); Blood Urea Nitrogen 33 mg/dL (9-16); Calcium 8.4 mg/dL (8.4-10.2); Carbon Dioxide 26 mmol/L (22-29); Chloride 99 mmol/L (96-108); Creatinine Clr Calc Pharmacy 33.7; Estimated Glomerular Filt Rate 29; Glucose Random 339 mg/dL (60-115); Potassium 4.3 mmol/L (3.3-5.1); Sodium 135 mmol/L (135-145)
[2024-11-25 11:31] LABS: Influenza A PCR NEGATIVE (Negative); Influenza B PCR NEGATIVE (Negative); Resp Syncy Virus RNA Qual PCR POSITIVE (Negative); SARS COV2 PCR INHOUSE NEGATIVE (Negative)
[2024-11-25 14:27] VITALS: BP 148/75; PULSE 88; RESP 16; TEMP 36.3; O2SAT 97
[2024-11-25 15:17] LABS: Glucose, Whole Blood 328 mg/dL (60-115)
[2024-11-25 15:35] VITALS: PULSE 63; RESP 18; O2SAT 98
[2024-11-25] MEDS: Albuterol/Iprat 2.5/0.5MG 3 ML AMPUL.NEB INHALE (15:39)
--- NOTE | 2024-11-25 16:10 | ED_ITS ---
HPI - URI/Sore Throat General Chief Complaint: Upper Respiratory Symptoms Stated Complaint: Cough Time Seen by Provider: 11/25/24 14:37 Source: patient, family (SON/ HCP), RN notes reviewed, old records reviewed and granulator (chilean) Mode of arrival: ambulatory Limitations: language barrier History of Present Illness ED Provider: MORGAN STOKES PA-C HPI Narrative: 79 year old Moldovan speaking male hx of Alzheimer's dementia, atrial fibrillation on Eliquis, insulin-dependent diabetes mellitus, congestive heart failure with preserved ejection fraction, coronary artery disease, gout, hypertension, mood disorder, gastroesophageal reflux disease, CKD stage 3 presents to the ED today with his HCP (son) for evaluation of productive cough and chest discomfort which began yesterday. He states he does not know the color of his sputum as he swallows it. He also admits to increasing SOB on exertion. He does not feel SOB while at rest. He does not wear home O2. Denies fever, chills, headache, sore throat, N/V, abd pain, diarrhea, constipation. No known sick contacts. Related Data Home Medications ?Medication ?Instructions ?Recorded ?Confirmed apixaban 5 mg tablet (Eliquis) 5 mg PO BID 09/05/21 11/25/24 donepezil 10 mg tablet 1 tab PO BEDTIME 09/05/21 11/25/24 lngyvltw-nnt-qxxyr acid 0.4 1 tab PO DAILY 09/05/21 11/25/24 mg-lycopene 300 mcg-lutein 250 mcg tablet (CertaVite Senior) allopurinol 100 mg tablet 50 mg PO DAILY gout pain 10/07/21 11/25/24 insulin syringe-needle U-100 1 mL #10 ea 12/22/21 05/08/22 31 gauge x 5/16 bumetanide 1 mg tablet 1 mg PO BID@0900,1200 05/08/22 11/25/24 memantine 10 mg tablet 10 mg PO BID 05/08/22 11/25/24 metoprolol tartrate 100 mg tablet 100 mg PO BID 05/08/22 11/25/24 amlodipine 5 mg tablet 5 mg PO DAILY 08/17/23 11/25/24 cetirizine 10 mg tablet 10 mg PO DAILY congestion 08/17/23 11/25/24 gabapentin 800 mg tablet 800 mg PO BID 05/17/24 11/25/24 insulin aspar prt-insulin aspart 30 - 76 unit subcut BIDWM 05/17/24 11/25/24 100 unit/mL (70-30) subcutaneous soln (Novolog Mix 70-30 U-100 Insuln) omeprazole 20 mg capsule,delayed 20 mg PO BID 05/17/24 11/25/24 release sucralfate 1 gram tablet 1 g PO TIDAC 05/17/24 11/25/24 magnesium oxide 250 mg PO DAILY 11/25/24 11/25/24 Previous Rx's ?Medication ?Instructions ?Recorded atorvastatin 40 mg tablet (Lipitor) 40 mg PO BEDTIME #30 tabs 09/09/21 lancets (Lancets,Ultra Thin) #100 ea 10/21/21 Allergies Allergy/AdvReac Type Severity Reaction Status Date / Time No Known Allergies Allergy Verified 11/25/24 10:14 Review of Systems 2 Review of Systems: Yes all other systems are reviewed and are negative PMFSH Past Medical History Attestation statement: The following information was validated with the patient. Source: old records reviewed, obtained from family and nursing notes reviewed Medical History CAD (coronary artery disease) Trash foot Diabetic foot infection Heart failure with preserved ejection fraction HLD (hyperlipidemia) Diabetes mellitus Atrial fibrillation NSTEMI (non-ST elevated myocardial infarction) Alzheimer's dementia Kidney failure Diabetes HTN (hypertension) Surgical History No pertinent past surgical history Family History Family History Father No problems noted. Mother No problems noted. Social History Social History Household Members: Family Household Members Other:: sons and daughter in law Housing: Apartment Do you presently have visiting nurse or other home services: No Alcohol intake: never Patient Tobacco Use Status: Never used Tobacco Smoked in Last 30 Days: No e-Cigarette/Vaping Use: Never Used Second Hand Smoke Exposure: No Use of substances other than those prescribed or required for medical reasons: No Currently Displaying Signs/Symptoms of Drug Intoxication Withdrawal: No Advance Directives: Yes Advance Directives on File: Yes Advance Directives Date on File: 09/06/21 Do you have a plan to hurt others: No Plan Recently lost weight without trying: No How much weight loss: Unsure Eating poorly because of decreased appetite: No Nutrition screen score: 2 Poor oral hygiene: No service: No Current occupational status: retired Physical Exam 2 Vital Signs: Vital Signs: Last Vital Signs Temp 98.2 F 11/29/24 08:00 Pulse 90 11/29/24 08:00 Resp 14 11/29/24 08:00 BP 135/66 11/29/24 08:00 Pulse Ox 98 11/29/24 08:00 O2 Del Method CPAP 11/29/24 08:00 O2 Flow Rate 3 11/29/24 00:00 FiO2 40 11/29/24 01:20 BMI result Body Mass Index 34.9 hypertensive, vitals otherwise wnl General: Well appearing, in no acute distress. Skin: Warm, dry, intact Head: Normocephalic, atraumatic. EENT: Hearing is intact b/l. Conjunctiva clear. PERRLA. EOM intact. Moist mucous membranes.? Neck: Supple without LAD Cardiac: Chest wall symmetric. rrr Lungs: Normal respiratory effort without accessory muscle use. minimal scattered expiratory wheezes. no crackles. Abdomen: obese, soft, non-tender, non-distended. No rebound tenderness or guarding. Positive BS x4. Back: No midline spinous or paraspinal tenderness. No step off deformity. Ext: + 1+ pitting edema to LE Neuro: AOx2 (baseline). Normal speech. unsteady gait. Course Course Course Narrative: CBC without leukocytosis or left shift. Anemia of chronic disease. H&H stable and above transfusion threshold. VBG showing metabolic alkalosis. Chemistry without acute electrolyte abnormality requiring intervention. Renal function appears to be around baseline secondary to CKD. Random glucose 339. His family member at bedside states that he did have a sugary breakfast prior to arrival in the ED and has not taken his novolog. BNP 224 - CXR does not demonstrate notable pleural effusion. No infiltrate or consolidation to suggest pnuemonia. Trop 2.8 - ACS unlikely. EKG showing chronic rate controlled afib with a rate of 73 bpm, no acute ischemic changes or ST elevations. He tested negative for covid, flu. He tested positive for RSV. > he is saturating 98% on RA at rest. during ambulatory trial, patient's oxygen saturation dropped to 86-87%. patient reported feeling more short of breath. IV steroids held at this time d/t patient's hyperglycemia. discussed with hospitalist dr. ramirez who has accepted patient admission to medicine for hypoxia secondary to RSV infection. patient and son/ hcp agreeable. Medications Administered Generic Name Dose Route Start Last Admin Trade Name Freq PRN Reason Stop Dose Admin Acetaminophen 650 mg 11/25/24 18:21 11/28/24 13:25 Acetaminophen 325 Mg Tablet PO 650 mg Q6H PRN Administration Pain, Mild 1-3,fever,headache Albuterol/Ipratropium 3 ml 11/26/24 08:00 11/29/24 07:35 Albuterol/Iprat 2.5/0.5mg 3 Ml Ampul.Neb INHALE 3 ml RQ4H WHILE AWAKE REYNALDO Administration Albuterol/Ipratropium 3 ml 11/28/24 21:53 11/28/24 22:11 Albuterol/Iprat 2.5/0.5mg 3 Ml Ampul.Neb INHALE 3 ml Q4H PRN Administration Wheezing Allopurinol 50 mg 11/26/24 09:00 11/29/24 08:29 Allopurinol 100 Mg Tablet PO 50 mg DAILY REYNALDO Administration Amlodipine Besylate 5 mg 11/26/24 09:00 11/29/24 08:31 Amlodipine Besylate 5 Mg Tablet PO 5 mg DAILY REYNALDO Administration Protocol Atorvastatin Calcium 40 mg 11/25/24 22:00 11/28/24 21:13 Atorvastatin Calcium 40 Mg Tablet PO 40 mg BEDTIME REYNALDO Administration Donepezil HCl 10 mg 11/25/24 22:00 11/28/24 21:13 Donepezil Hcl 10 Mg Tablet PO 10 mg BEDTIME REYNALDO Administration Gabapentin 800 mg 11/25/24 22:00 11/29/24 08:29 Gabapentin 400 Mg Capsule PO 800 mg BID REYNALDO Administration Guaifenesin 5 ml 11/25/24 18:23 11/28/24 21:16 Guaifenesin 100 Mg/5 Ml 5 Ml Liquid PO 5 ml Q4H PRN Administration Cough Heparin Sodium/Sodium Chloride 25,000 unit in 250 mls @ 0 mls/hr 11/28/24 10:30 11/29/24 04:35 Heparin Sodium,Porcine/1/2ns IVCONT 6.94 units/kg/hr .Q0M REYNALDO 7.77 mls/hr Titration Protocol Per Protocol Bumetanide 25 mg/ IV 100 mls @ 1 mls/hr 11/29/24 07:45 11/29/24 08:53 Miscellaneous Supplies IVCONT 0.25 mg/hr .Q24H REYNALDO 1 mls/hr Administration 0.25 MG/HR Insulin Human Lispro 0 unit 11/27/24 11:30 11/29/24 08:32 Insulin Lispro 100 Unit/Ml 3 Ml Vial SUBCUT 2 unit QIDACHS [facility] Administration Protocol Loratadine 10 mg 11/26/24 09:00 11/29/24 08:31 Loratadine 10 Mg Tablet PO 10 mg DAILY REYNALDO Administration Magnesium Oxide 200 mg 11/26/24 09:00 11/29/24 08:30 Magnesium Oxide 400 Mg Tablet PO 200 mg DAILY REYNALDO Administration Memantine 10 mg 11/27/24 21:00 11/29/24 08:31 Memantine Hcl 10 Mg Tablet PO 10 mg BID REYNALDO Administration Metoprolol Tartrate 100 mg 11/27/24 16:45 11/29/24 08:31 Metoprolol Tartrate 100 Mg Tablet PO 100 mg BID REYNALDO Administration Protocol Multivitamins/Vitamin C 1 tab 11/26/24 09:00 11/29/24 08:31 Multivitamin Tablet PO 1 tab DAILY REYNALDO Administration Nitroglycerin 1 inch 11/28/24 14:00 11/29/24 08:32 Nitroglycerin 2 % Oint 1 Gm Packet TRANSDERMA 1 inch RQ6H WHILE AWAKE REYANLDO Administration Pt Own (Insulin Asp 30 - 76 unit 11/25/24 20:00 11/29/24 08:32 Prt-Insulin Aspart [ SUBCUT 60 unit Novolog Mix 70-30 U- BIDWM REYNALDO Administration 100 Insuln] Omeprazole 20 mg 11/26/24 06:30 11/29/24 08:29 Omeprazole 20 Mg Capsule. PO 20 mg BID@0630,1630 REYNALDO Administration Sodium Chloride 3 ml 11/26/24 00:00 11/29/24 08:33 0.9 % Sodium Chloride Flush 3 Ml Syringe IVFLUSH 3 ml QSHIFT REYNALDO Administration Sucralfate 1 gm 11/26/24 07:30 11/29/24 08:30 Sucralfate 1 Gm Tablet PO 1 gm TIDAC REYNALDO Administration Discontinued Medications Generic Name Dose Route Start Last Admin Trade Name Duongq PRN Reason Stop Dose Admin Albuterol/Ipratropium 3 ml 11/25/24 15:35 11/25/24 15:39 Albuterol/Iprat 2.5/0.5mg 3 Ml Ampul.Neb INHALE 11/25/24 15:36 3 ml ONCE ONE Administration Apixaban 5 mg 11/25/24 22:00 11/28/24 08:36 Apixaban 5 Mg Tablet PO 5 mg BID REYNALDO Administration Bumetanide 1 mg 11/27/24 16:45 11/27/24 16:56 Bumetanide 1 Mg Tablet PO 1 mg BID@0900,1200 [facility] Administration Protocol Bumetanide 1 mg 11/28/24 09:00 11/28/24 17:01 Bumetanide 1 Mg/4 Ml Vial IVPUSH 1 mg BID@0900,1700 [facility] Administration Protocol Sodium Chloride 1,000 mls @ 999 mls/hr 11/25/24 16:30 11/25/24 19:20 Ns IV 11/25/24 17:30 Infused .Q1H1M REYNALDO Infusion Insulin Human Regular 5 unit 11/25/24 16:26 11/25/24 17:53 Insulin Regular, Human 100 Unit/Ml 10 Ml Vial IVPUSH 11/25/24 16:27 Not Given ONCE ONE Methylprednisolone Sodium Succinate 20 mg 11/26/24 15:00 11/27/24 14:29 Methylprednisolone Sod Succ 40 Mg/Ml Vial IVPUSH 20 mg Q12H REYNALDO Administration Metoprolol Tartrate 5 mg 11/26/24 22:10 11/26/24 23:08 Metoprolol Tartrate 5 Mg/5 Ml Vial IVPUSH 11/26/24 22:11 5 mg ONCE ONE Administration Protocol Medical Decision Making Medical Decision Making MDM Narrative: 79 year old Moldovan speaking male hx of Alzheimer's dementia, atrial fibrillation on Eliquis, insulin-dependent diabetes mellitus, congestive heart failure with preserved ejection fraction, coronary artery disease, gout, hypertension, mood disorder, gastroesophageal reflux disease, CKD stage 3 presents to the ED today with his HCP (son) for evaluation of productive cough which began yesterday. Vital signs stable. He is satting 98% on RA. O2 dropped to 87% during ambulation. Lungs with minimal scattered expiratory wheezes. No noted respiratory distress, tripoding, increased effort of breathing. Differential diagnosis includes viral syndrome, bronchitis, pnuemonia, CHF, ACS, arrhythmia, pleural effusion. Lower suspicion for PE as patient is anticoagulated on Eliquis and has adventitious lung sounds. Plan for labs, ekg, viral swabs, CXR, re-evaluation. Differential Diagnosis Differential Diagnoses: The differential diagnosis associated with the presentation includes as above. Admission/Observation Consideration of admission/observation: Escalation of care including admission/observation considered Patient admitted to medicine for hypoxia with ambulation secondary to RSV infection. Consult Healthcare Provider Management of the patient was discussed with: Hospitalist (Dr. Ramirez) Lab Data MDM Lab Attestation statement: I reviewed the patient's lab results. as above. 11/28/24 09:17 11/28/24 09:18 Labs: Lab Results 11/25/24 11/25/24 11/25/24 Range/Units 10:30 10:34 15:13 WBC 6.1 (4.8-10.8) X10*3/uL RBC 4.02 L (4.60-5.80) X10*6/uL Hgb 12.4 L (14.0-18.0) g/dl Hct 38.1 L (42.0-52.0) % MCV 94.8 (80.0-98.0) fL MCH 30.8 (27.0-33.0) pg MCHC 32.5 (31.0-36.0) g/dl RDW 15.3 (11.0-16.0) % Plt Count 159 L (160-400) X10*3/uL MPV 12.3 (9.4-12.4) fL Immature Gran % (Auto) 0.2 (0.0-0.4) % Neut % (Auto) 63.7 (45-73) % Lymph % (Auto) 17.0 L (20-40) % [place] % (Auto) 13.3 H (2-11) % Eos % (Auto) 4.8 H (0-4) % Baso % (Auto) 1.0 (0-2) % Lymph # (Auto) 1.0 L (1.2-4.9) X10*3/uL [place] # (Auto) 0.8 (0.1-1.2) X10*3/uL Eos # (Auto) 0.3 (0.0-0.4) X10*3/uL Baso # (Auto) 0.1 (0.0-0.2) X10*3/uL Abs Immat Gran (auto) 0.01 (0.00-0.03) X10*3/uL Absolute Neuts (auto) 3.9 (2.0-8.3) x10*3/uL Absolute Nucleated RBC 0.000 (0.0-0.012) X10*3/uL Nucleated RBC % (auto) 0.0 (0.0-0.2) /100WBC VBG pH (7.32-7.43) VBG pCO2 mmHg VBG pO2 mmHg VBG HCO3 (22-26) mmol/L VBG O2 Saturation % VBG Base Excess mmol/L Sodium 135 (135-145) mmol/L Potassium 4.3 (3.3-5.1) mmol/L Chloride 99 (96-108) mmol/L Carbon Dioxide 26 (22-29) mmol/L Anion Gap 14 (12-20) BUN 33 H (9-16) mg/dL Creatinine 2.18 H (0.5-1.4) mg/dL Estim Creat Clear Calc 33.7 Estimated GFR 29 POC Glucose 328 H (60-115) mg/dL Random Glucose 339 H (60-115) mg/dL Calcium 8.4 D (8.4-10.2) mg/dL Troponin I High Sens (<3.5-35.0) ng/L B-Natriuretic Peptide (<100) pg/mL Influenza Type A (PCR) NEGATIVE (Negative) Influenza Type B (PCR) NEGATIVE (Negative) RSV RNA Qual (PCR) POSITIVE A (Negative) SARS-CoV-2 RNA (RT-PCR) NEGATIVE (Negative) 11/25/24 11/25/24 11/25/24 Range/Units 17:03 17:08 19:03 WBC (4.8-10.8) X10*3/uL RBC (4.60-5.80) X10*6/uL Hgb (14.0-18.0) g/dl Hct (42.0-52.0) % MCV (80.0-98.0) fL MCH (27.0-33.0) pg MCHC (31.0-36.0) g/dl RDW (11.0-16.0) % Plt Count (160-400) X10*3/uL MPV (9.4-12.4) fL Immature Gran % (Auto) (0.0-0.4) % Neut % (Auto) (45-73) % Lymph % (Auto) (20-40) % [place] % (Auto) (2-11) % Eos % (Auto) (0-4) % Baso % (Auto) (0-2) % Lymph # (Auto) (1.2-4.9) X10*3/uL [place] # (Auto) (0.1-1.2) X10*3/uL Eos # (Auto) (0.0-0.4) X10*3/uL Baso # (Auto) (0.0-0.2) X10*3/uL Abs Immat Gran (auto) (0.00-0.03) X10*3/uL Absolute Neuts (auto) (2.0-8.3) x10*3/uL Absolute Nucleated RBC (0.0-0.012) X10*3/uL Nucleated RBC % (auto) (0.0-0.2) /100WBC VBG pH 7.51 H (7.32-7.43) VBG pCO2 34 mmHg VBG pO2 61 mmHg VBG HCO3 28 H (22-26) mmol/L VBG O2 Saturation 87.0 % VBG Base Excess 5.6 mmol/L Sodium (135-145) mmol/L Potassium (3.3-5.1) mmol/L Chloride (96-108) mmol/L Carbon Dioxide (22-29) mmol/L Anion Gap (12-20) BUN (9-16) mg/dL Creatinine (0.5-1.4) mg/dL Estim Creat Clear Calc Estimated GFR POC Glucose 297 H (60-115) mg/dL Random Glucose (60-115) mg/dL Calcium (8.4-10.2) mg/dL Troponin I High Sens 2.8 (<3.5-35.0) ng/L B-Natriuretic Peptide 224 H (<100) pg/mL Influenza Type A (PCR) (Negative) Influenza Type B (PCR) (Negative) RSV RNA Qual (PCR) (Negative) SARS-CoV-2 RNA (RT-PCR) (Negative) 11/25/24 11/25/24 11/26/24 Range/Units 20:00 20:43 07:17 WBC (4.8-10.8) X10*3/uL RBC (4.60-5.80) X10*6/uL Hgb (14.0-18.0) g/dl Hct (42.0-52.0) % MCV (80.0-98.0) fL MCH (27.0-33.0) pg MCHC (31.0-36.0) g/dl RDW (11.0-16.0) % Plt Count (160-400) X10*3/uL MPV (9.4-12.4) fL Immature Gran % (Auto) (0.0-0.4) % Neut % (Auto) (45-73) % Lymph % (Auto) (20-40) % [place] % (Auto) (2-11) % Eos % (Auto) (0-4) % Baso % (Auto) (0-2) % Lymph # (Auto) (1.2-4.9) X10*3/uL [place] # (Auto) (0.1-1.2) X10*3/uL Eos # (Auto) (0.0-0.4) X10*3/uL Baso # (Auto) (0.0-0.2) X10*3/uL Abs Immat Gran (auto) (0.00-0.03) X10*3/uL Absolute Neuts (auto) (2.0-8.3) x10*3/uL Absolute Nucleated RBC (0.0-0.012) X10*3/uL Nucleated RBC % (auto) (0.0-0.2) /100WBC VBG pH (7.32-7.43) VBG pCO2 mmHg VBG pO2 mmHg VBG HCO3 (22-26) mmol/L VBG O2 Saturation % VBG Base Excess mmol/L Sodium (135-145) mmol/L Potassium (3.3-5.1) mmol/L Chloride (96-108) mmol/L Carbon Dioxide (22-29) mmol/L Anion Gap (12-20) BUN (9-16) mg/dL Creatinine (0.5-1.4) mg/dL Estim Creat Clear Calc Estimated GFR POC Glucose 282 H 278 H 226 H (60-115) mg/dL Random Glucose (60-115) mg/dL Calcium (8.4-10.2) mg/dL Troponin I High Sens (<3.5-35.0) ng/L B-Natriuretic Peptide (<100) pg/mL Influenza Type A (PCR) (Negative) Influenza Type B (PCR) (Negative) RSV RNA Qual (PCR) (Negative) SARS-CoV-2 RNA (RT-PCR) (Negative) 11/26/24 11/26/24 11/26/24 Range/Units 11:09 16:07 20:31 WBC (4.8-10.8) X10*3/uL RBC (4.60-5.80) X10*6/uL Hgb (14.0-18.0) g/dl Hct (42.0-52.0) % MCV (80.0-98.0) fL MCH (27.0-33.0) pg MCHC (31.0-36.0) g/dl RDW (11.0-16.0) % Plt Count (160-400) X10*3/uL MPV (9.4-12.4) fL Immature Gran % (Auto) (0.0-0.4) % Neut % (Auto) (45-73) % Lymph % (Auto) (20-40) % [place] % (Auto) (2-11) % Eos % (Auto) (0-4) % Baso % (Auto) (0-2) % Lymph # (Auto) (1.2-4.9) X10*3/uL [place] # (Auto) (0.1-1.2) X10*3/uL Eos # (Auto) (0.0-0.4) X10*3/uL Baso # (Auto) (0.0-0.2) X10*3/uL Abs Immat Gran (auto) (0.00-0.03) X10*3/uL Absolute Neuts (auto) (2.0-8.3) x10*3/uL Absolute Nucleated RBC (0.0-0.012) X10*3/uL Nucleated RBC % (auto) (0.0-0.2) /100WBC VBG pH (7.32-7.43) VBG pCO2 mmHg VBG pO2 mmHg VBG HCO3 (22-26) mmol/L VBG O2 Saturation % VBG Base Excess mmol/L Sodium (135-145) mmol/L Potassium (3.3-5.1) mmol/L Chloride (96-108) mmol/L Carbon Dioxide (22-29) mmol/L Anion Gap (12-20) BUN (9-16) mg/dL Creatinine (0.5-1.4) mg/dL Estim Creat Clear Calc Estimated GFR POC Glucose 266 H 277 H 328 H (60-115) mg/dL Random Glucose (60-115) mg/dL Calcium (8.4-10.2) mg/dL Troponin I High Sens (<3.5-35.0) ng/L B-Natriuretic Peptide (<100) pg/mL Influenza Type A (PCR) (Negative) Influenza Type B (PCR) (Negative) RSV RNA Qual (PCR) (Negative) SARS-CoV-2 RNA (RT-PCR) (Negative) 11/27/24 Range/Units 07:42 WBC (4.8-10.8) X10*3/uL RBC (4.60-5.80) X10*6/uL Hgb (14.0-18.0) g/dl Hct (42.0-52.0) % MCV (80.0-98.0) fL MCH (27.0-33.0) pg MCHC (31.0-36.0) g/dl RDW (11.0-16.0) % Plt Count (160-400) X10*3/uL MPV (9.4-12.4) fL Immature Gran % (Auto) (0.0-0.4) % Neut % (Auto) (45-73) % Lymph % (Auto) (20-40) % [place] % (Auto) (2-11) % Eos % (Auto) (0-4) % Baso % (Auto) (0-2) % Lymph # (Auto) (1.2-4.9) X10*3/uL [place] # (Auto) (0.1-1.2) X10*3/uL Eos # (Auto) (0.0-0.4) X10*3/uL Baso # (Auto) (0.0-0.2) X10*3/uL Abs Immat Gran (auto) (0.00-0.03) X10*3/uL Absolute Neuts (auto) (2.0-8.3) x10*3/uL Absolute Nucleated RBC (0.0-0.012) X10*3/uL Nucleated RBC % (auto) (0.0-0.2) /100WBC VBG pH (7.32-7.43) VBG pCO2 mmHg VBG pO2 mmHg VBG HCO3 (22-26) mmol/L VBG O2 Saturation % VBG Base Excess mmol/L Sodium (135-145) mmol/L Potassium (3.3-5.1) mmol/L Chloride (96-108) mmol/L Carbon Dioxide (22-29) mmol/L Anion Gap (12-20) BUN (9-16) mg/dL Creatinine (0.5-1.4) mg/dL Estim Creat Clear Calc Estimated GFR POC Glucose 342 H (60-115) mg/dL Random Glucose (60-115) mg/dL Calcium (8.4-10.2) mg/dL Troponin I High Sens (<3.5-35.0) ng/L B-Natriuretic Peptide (<100) pg/mL Influenza Type A (PCR) (Negative) Influenza Type B (PCR) (Negative) RSV RNA Qual (PCR) (Negative) SARS-CoV-2 RNA (RT-PCR) (Negative) Independent Interpretation I performed an independent interpretation of an: EKG and Plain X-Ray Interpretation: CXR without infiltrate, consolidation or notable pleural effusion EKG showing atrial fibrillation with a rate of 73 beats per minute, QT to 56, QTC 282, no acute ischemic changes or ST elevations Radiology Impression Discussion of test interpretation with radiology: I have reviewed the radiologist's reading. Radiologist Impression: EXAMINATION: XR CHEST CLINICAL INFORMATION: PROD COUGH COMPARISON: Chest 09/20/2024 TECHNIQUE: 2 views of the chest were obtained. FINDINGS: The lungs are well-expanded and clear. The heart size is enlarged. Pulmonary vascularity is normal. There is moderate spondylosis throughout dorsal spine. No aggressive lytic or sclerotic process seen. XR/XR chest 2V IMPRESSION: Unremarkable chest exam. Electronically signed by: Demond Barajas MD 11/25/2024 11:44 AM EST Independent Historian Clinical information obtained from an independent historian. History obtained from or confirmed by: Other (god son/ god daughter (HCP)) External Record Review External record reviewed: Inpatient record, Office record, Outpatient record, Prior outpatient labs, Prior outpatient radiology, Primary care record and Outside ED record Chronic Conditions Patient?s care impacted by: Diabetes and Other (CHF) Social Determinants Patient?s care significantly limited by Social Determinants of Health including: Other Social Determinant of Health Procedures Procedure Narrative Procedure Narrative: Ultrasound-guided IV 18 gauge 1-3/4 inch IV placed in left upper extremity, adequate blood return, flushes well secured with Tegaderm Performed by Gianna Bragg PA-C Critical Care Time Critical Care Time Critical Care Time: Yes Total Critical Care Time: 35 Attestation: Critical care time in the amount of 35 minutes has been provided to the patient in terms of direct patient care, frequent reevaluation, consultation with hospitalist, review and interpretation of medical data and results, and management of potentially life-threatening conditions. This is all outside of any medical procedures. Discharge Plan Discharge Clinical Impression: Respiratory syncytial virus (RSV), Hypoxia Patient Disposition: Admitted As Inpatient Interventions: Admission Worksheet (ED) Last Done: 11/25/24 19:33 Discharge Date/Time: 11/25/24 20:42
--- NOTE | 2024-11-25 16:22 | MHC.EDTECH ---
PATIENT O2 PRIOR TO AMBULATION WAS 98 AFTER AMBULATION TRIAL 02 DROPPED TO 87
--- NOTE | 2024-11-25 16:26 | ECG_ITS ---
Test Reason : SOB Blood Pressure : / mmHG Vent. Rate : 073 BPM Atrial Rate : 000 BPM P-R Int : 000 ms QRS Dur : 098 ms QT Int : 256 ms P-R-T Axes : 000 057 237 degrees QTc Int : 282 ms Atrial fibrillation Cannot rule out Inferior infarct (cited on or before 20-SEP-2024) Abnormal ECG When compared with ECG of 20-SEP-2024 00:15, Nonspecific T wave abnormality now evident in Inferior leads QT has shortened Referred By: Karuna Hearn Electronically Signed By:PANKAJ BRASWELL MD
[2024-11-25 16:49] VITALS: BP 128/72; PULSE 80; RESP 18; TEMP 36.9; O2SAT 95
[2024-11-25 17:15] LABS: VBG Base Excess 5.6 mmol/L; VBG HCO3 28 mmol/L (22-26); VBG pCO2 34 mmHg; VBG pH 7.51 (7.32-7.43); VBG pO2 61 mmHg
[2024-11-25 17:15] LABS: Venous Blood Gas Refer to POC result
[2024-11-25] MEDS: 0.9 % Sodium Chloride 1,000 ML 999 ML IV (17:41)
[2024-11-25 17:56] LABS: B Type Natriuretic Peptide 224 pg/mL (<100)
[2024-11-25 18:01] LABS: Troponin-I High Sensitivity 2.8 ng/L (<3.5-35.0)
[2024-11-25 18:21] VITALS: BMI 34.9
--- NOTE | 2024-11-25 18:24 | P.HPHOSP_ITS ---
History of Present Illness Date of Service: 11/25/24 Chief Complaint: cough A 79-year-old male with a history of CAD, DM, Alzheimer's dementia, HLD, CKD stage 3, and chronic AFib presents with a cough and chest discomfort but no fever. CXR is unremarkable, and RSV testing is positive. Oxygen saturation is 95?98% on room air but drops to 87% with ambulation, causing the patient to become winded. He was treated with one updraft. Notably, he is not vaccinated against RSV. Review of Systems 2 Review of Systems: cough, shortness of breath Yes all other systems are reviewed and are negative [facility] Medical History CAD (coronary artery disease) Trash foot Diabetic foot infection Heart failure with preserved ejection fraction HLD (hyperlipidemia) Diabetes mellitus Atrial fibrillation NSTEMI (non-ST elevated myocardial infarction) Alzheimer's dementia Kidney failure Diabetes HTN (hypertension) Family History Father No problems noted. Mother No problems noted. Surgical History No pertinent past surgical history Social History Household Members: Family Household Members Other:: sons and daughter in law Housing: Apartment Do you presently have visiting nurse or other home services: No Alcohol intake: never Patient Tobacco Use Status: Never used Tobacco Smoked in Last 30 Days: No e-Cigarette/Vaping Use: Never Used Second Hand Smoke Exposure: No Use of substances other than those prescribed or required for medical reasons: No Currently Displaying Signs/Symptoms of Drug Intoxication Withdrawal: No Advance Directives: Yes Advance Directives on File: Yes Advance Directives Date on File: 09/06/21 Do you have a plan to hurt others: No Plan Recently lost weight without trying: No How much weight loss: Unsure Eating poorly because of decreased appetite: No Nutrition screen score: 2 Poor oral hygiene: No service: No Current occupational status: retired Meds Allergies Allergy/AdvReac Type Severity Reaction Status Date / Time No Known Allergies Allergy Verified 11/25/24 10:14 Active Medications: Current Medications Glucose (Glucose Gel 15 Gm Gel..Gram.) 15 gm PO Q15M PRN; Protocol PRN Reason: per Hypoglycemia Standing Ord. Dextrose (D10) 250 mls @ 750 mls/hr IV Q15M PRN; Protocol PRN Reason: per Hypoglycemia Standing Ord. Insulin Human Lispro (Insulin Lispro 100 Unit/Ml 3 Ml Vial) 0 unit SUBCUT QIDACHS [facility]; Protocol Home Medications ?Medication ?Instructions ?Recorded ?Confirmed ?Last Taken ?Type apixaban 5 mg tablet (Eliquis) 5 mg PO BID 09/05/21 11/25/24 11/25/24 History donepezil 10 mg tablet 1 tab PO BEDTIME 09/05/21 11/25/24 11/24/24 History piakwteq-zfp-hjnck acid 0.4 1 tab PO DAILY 09/05/21 11/25/24 11/25/24 History mg-lycopene 300 mcg-lutein 250 mcg tablet (CertaVite Senior) allopurinol 100 mg tablet 50 mg PO DAILY gout pain 10/07/21 11/25/24 11/25/24 History insulin syringe-needle U-100 1 mL #10 ea 12/22/21 05/08/22 Unknown History 31 gauge x 04/10 bumetanide 1 mg tablet 1 mg PO BID@0900,1200 05/08/22 11/25/24 11/25/24 History memantine 10 mg tablet 10 mg PO BID 05/08/22 11/25/24 11/25/24 History metoprolol tartrate 100 mg tablet 100 mg PO BID 05/08/22 11/25/24 11/25/24 History amlodipine 5 mg tablet 5 mg PO DAILY 08/17/23 11/25/24 11/25/24 History cetirizine 10 mg tablet 10 mg PO DAILY congestion 08/17/23 11/25/24 11/25/24 History gabapentin 800 mg tablet 800 mg PO BID 05/17/24 11/25/24 11/25/24 History insulin aspar prt-insulin aspart 30 - 76 unit subcut BIDWM 05/17/24 11/25/24 11/25/24 History 100 unit/mL (70-30) subcutaneous soln (Novolog Mix 70-30 U-100 Insuln) omeprazole 20 mg capsule,delayed 20 mg PO BID 05/17/24 11/25/2424 History release sucralfate 1 gram tablet 1 g PO TIDAC 05/17/24 11/25/24 11/25/24 History magnesium oxide 250 mg PO DAILY 11/25/24 11/25/24 11/25/24 History Physical Exam 2 Vital Signs and Narrative: Vital Signs: Last Vital Signs Temp 98.5 F 11/25/24 16:49 Pulse 80 11/25/24 16:49 Resp 18 11/25/24 16:49 BP 128/72 11/25/24 16:49 Pulse Ox 95 11/25/24 16:49 O2 Del Method Room Air 11/25/24 16:49 BMI result Body Mass Index 32.1 General: AO X 3, no acute distress Resp: CTA bilateral CVS: S1,S2,RRR GI: +BS, NT, no distention Skin: No rash Neuro: motor grossly intact Psych: appropriate affect Results Labs 11/25/24 10:30 11/25/24 10:30 Labs: Laboratory Results - last 24 hr 11/25/24 11/25/24 11/25/24 10:30 10:34 15:13 MCV 94.8 MCH 30.8 MCHC 32.5 RDW 15.3 Plt Count 159 L MPV 12.3 Immature Gran % (Auto) 0.2 Neut % (Auto) 63.7 Lymph % (Auto) 17.0 L [place] % (Auto) 13.3 H Eos % (Auto) 4.8 H Baso % (Auto) 1.0 Lymph # (Auto) 1.0 L [place] # (Auto) 0.8 Eos # (Auto) 0.3 Baso # (Auto) 0.1 Abs Immat Gran (auto) 0.01 Absolute Neuts (auto) 3.9 Absolute Nucleated RBC 0.000 Nucleated RBC % (auto) 0.0 VBG pH VBG pCO2 VBG pO2 VBG HCO3 VBG O2 Saturation VBG Base Excess Anion Gap 14 Estim Creat Clear Calc 33.7 Estimated GFR 29 POC Glucose 328 H Random Glucose 339 H Calcium 8.4 D Troponin I High Sens B-Natriuretic Peptide Influenza Type A (PCR) NEGATIVE Influenza Type B (PCR) NEGATIVE RSV RNA Qual (PCR) POSITIVE A SARS-CoV-2 RNA (RT-PCR) NEGATIVE 11/25/24 11/25/24 17:03 17:08 MCV MCH MCHC RDW Plt Count MPV Immature Gran % (Auto) Neut % (Auto) Lymph % (Auto) [place] % (Auto) Eos % (Auto) Baso % (Auto) Lymph # (Auto) [place] # (Auto) Eos # (Auto) Baso # (Auto) Abs Immat Gran (auto) Absolute Neuts (auto) Absolute Nucleated RBC Nucleated RBC % (auto) VBG pH 7.51 H VBG pCO2 34 VBG pO2 61 VBG HCO3 28 H VBG O2 Saturation 87.0 VBG Base Excess 5.6 Anion Gap Estim Creat Clear Calc Estimated GFR POC Glucose Random Glucose Calcium Troponin I High Sens 2.8 B-Natriuretic Peptide 224 H Influenza Type A (PCR) Influenza Type B (PCR) RSV RNA Qual (PCR) SARS-CoV-2 RNA (RT-PCR) Imaging Radiologist's Impressions: Impressions Chest X-Ray 11/25/24 10:15 IMPRESSION: Unremarkable chest exam. Electronically signed by: Demond Barajas MD 11/25/2024 11:44 AM [facility] [place] and Plan (1) Respiratory syncytial virus (RSV): Status: Acute Plan A 79-year-old male with a history of CAD, DM, Alzheimer's dementia, HLD, CKD stage 3, and chronic AFib presents with a cough and chest discomfort but no fever. CXR is unremarkable, and RSV testing is positive. Oxygen saturation is 95?98% on room air but drops to 87% with ambulation, causing the patient to become winded. He was treated with one updraft. Notably, he is not vaccinated against RSV. RSV, hypoxia with ambulation -conservative management -updraft PRN -robitussin for cough -O2 PRN Diabetes with hyperglycemai -Sliding scale insulin (refusin admelong in the ED and would only take Novolog) Chronic afib, rate controlled on metoprolol -continue eliquis GERD PPI Dementia, continue Memantine and Donezepil DVT prophylaxis, eliquis Full code Observeration overnight Quality Stroke Does the patient have a stroke diagnosis?: No VTE Prior VTE?: No VTE Risk Level:: Medical - moderate - high VTE Device Contraindication: N/A - Device Ordered VTE Drug Contraindication: N/A - Med Ordered
[2024-11-25 19:07] LABS: Glucose, Whole Blood 297 mg/dL (60-115)
--- NOTE | 2024-11-25 19:11 | PC.NURSE ---
report given to DOMINGO Huston pt to be moved to overflow bed #1
--- NOTE | 2024-11-25 19:21 | PC.NURSE ---
pt brought to overflow at this time, pt 1A into hospital bed. pt skin noted to be in tact. precautions in place at this time, respirations even and unlabored. vss.
--- NOTE | 2024-11-25 19:38 | PC.NURSE ---
Addendum entered by Betzaida Puga 11/25/24 19:59: per pharmacist, label will be placed on medication and medication may be administered per provider order Original Note: pt noted to have an open bottle of novolog at bedside, pharmacy contacted, reports they will contact this RN for further instruction on the bottle and where to keep it.
[2024-11-25 20:04] LABS: Glucose, Whole Blood 282 mg/dL (60-115)
--- NOTE | 2024-11-25 20:24 | PHA.MEDREC ---
Addendum entered by Carmine Buchanan [facility] 11/25/24 20:42: med rec reviewed Original Note: Pharmacy Consult ? Medication Reconciliation Pharmacy has completed the medication reconciliation. Spoke to patients son at bedside through cutter and presser service(Jose). Son didn't know all of patient medications. His main concern was giving his father insulin Novolog Mix 70-30 U-100 30-76 units BID per sliding scale( *son refuses to use interchangeable insulin* son wants his father to have the Novolog 70-30 from home*) Md aware and approve patient home medication as long as is was sealed. Son was Very upset that his father didn't have anything to eat all day. Son eventually went home and brought back patient medbox list. Utilized list and claims to confirm med list.
--- NOTE | 2024-11-25 20:24 | PC.NURSE ---
pt medicated per mar with own insulin, placed back into belongings bag for transport.
[2024-11-25 20:40] VITALS: BP 145/67; PULSE 85; RESP 16; TEMP 37; O2SAT 91
[2024-11-25 20:58] LABS: Glucose, Whole Blood 278 mg/dL (60-115)
[2024-11-25] MEDS: Gabapentin 400 MG CAPSULE 800 MG PO (22:22)
[2024-11-25] MEDS: Apixaban 5 MG TABLET PO (22:22)
[2024-11-25] MEDS: Donepezil HCl 10 MG TABLET PO (22:22)
[2024-11-25] MEDS: Atorvastatin Calcium 40 MG TABLET PO (22:22)
[2024-11-25] MEDS: 0.9 % Sodium Chloride Flush 3 ML SYRINGE IVFLUSH (22:50)
[2024-11-26] VITALS (12 sets, daily range): BP systolic 143–195; BP diastolic 72–88; PULSE 80–130; RESP 16–22; TEMP 36.8–37.4; O2SAT 85–95
[2024-11-26] MEDS: Omeprazole 20 MG CAPSULE.DR PO ×2 (05:34→18:05)
[2024-11-26 07:32] LABS: Glucose, Whole Blood 226 mg/dL (60-115)
[2024-11-26] MEDS: Albuterol/Iprat 2.5/0.5MG 3 ML AMPUL.NEB INHALE ×3 (08:22→15:49)
[2024-11-26] MEDS: Magnesium Oxide 400 MG TABLET 200 MG PO (08:58)
[2024-11-26] MEDS: Gabapentin 400 MG CAPSULE 800 MG PO ×2 (08:58→19:21)
[2024-11-26] MEDS: Multivitamin TABLET 1 TAB PO (08:59)
[2024-11-26] MEDS: Sucralfate 1 GM TABLET PO ×3 (08:59→18:05)
[2024-11-26] MEDS: Apixaban 5 MG TABLET PO ×2 (08:59→19:22)
[2024-11-26] MEDS: amLODIPine Besylate 5 MG TABLET PO (08:59)
[2024-11-26] MEDS: Loratadine 10 MG TABLET PO (09:00)
[2024-11-26] MEDS: 0.9 % Sodium Chloride Flush 3 ML SYRINGE IVFLUSH ×3 (09:00→19:36)
[2024-11-26] MEDS: allopurinoL 100 MG TABLET 50 MG PO (09:00)
[2024-11-26 11:23] LABS: Glucose, Whole Blood 266 mg/dL (60-115)
--- NOTE | 2024-11-26 13:43 | HO.PM.IMPN ---
Subjective Subjective Date of Service: 11/26/24 Interval History: feels better Review of Systems cough, shortness of breath Physical Exam Vital Signs: Vital Signs: Last Vital Signs Temp 99.3 F 11/26/24 07:59 Pulse 80 11/26/24 11:44 Resp 18 11/26/24 11:44 BP 170/85 H 11/26/24 08:59 Pulse Ox 92 11/26/24 07:59 O2 Del Method Room Air 11/26/24 07:59 BMI result Body Mass Index 34.9 Const: Other: General: AO X 3, no acute distress Resp: rhonchi CVS: S1,S2,RRR GI: +BS, NT, no distention Skin: No rash Neuro: motor grossly intact Psych: appropriate affect Objective Data Active Medications Acetaminophen (Acetaminophen 325 Mg Tablet) 650 mg PO Q6H PRN PRN Reason: Pain, Mild 1-3,fever,headache Albuterol/Ipratropium (Albuterol/Iprat 2.5/0.5mg 3 Ml Ampul.Neb) 3 ml INHALE RQ4H WHILE AWAKE [facility] Last Admin: 11/26/24 11:44 Dose: 3 ml Documented By: ALEJANDRO Allopurinol (Allopurinol 100 Mg Tablet) 50 mg PO DAILY [facility] Last Admin: 11/26/24 09:00 Dose: 50 mg Documented By: KACIE Amlodipine Besylate (Amlodipine Besylate 5 Mg Tablet) 5 mg PO DAILY [facility]; Protocol Last Admin: 11/26/24 08:59 Dose: 5 mg Documented By: KACIE Apixaban (Apixaban 5 Mg Tablet) 5 mg PO BID [facility] Last Admin: 11/26/24 08:59 Dose: 5 mg Documented By: KACIE Atorvastatin Calcium (Atorvastatin Calcium 40 Mg Tablet) 40 mg PO BEDTIME [facility] Last Admin: 11/25/24 22:22 Dose: 40 mg Documented By: JONAH Calcium Carbonate (Calcium Carbonate 750 Mg Tab.Chew) 750 mg PO Q4H PRN PRN Reason: Heartburn Donepezil HCl (Donepezil Hcl 10 Mg Tablet) 10 mg PO BEDTIME [facility] Last Admin: 11/25/24 22:22 Dose: 10 mg Documented By: JONAH Gabapentin (Gabapentin 400 Mg Capsule) 800 mg PO BID [facility] Last Admin: 11/26/24 08:58 Dose: 800 mg Documented By: KACIE Glucose (Glucose Gel 15 Gm Gel..Gram.) 15 gm PO Q15M PRN; Protocol PRN Reason: per Hypoglycemia Standing Ord. Guaifenesin (Guaifenesin 100 Mg/5 Ml 5 Ml Liquid) 5 ml PO Q4H PRN PRN Reason: Cough Dextrose (D10) 250 mls @ 750 mls/hr IV Q15M PRN; Protocol PRN Reason: per Hypoglycemia Standing Ord. Loratadine (Loratadine 10 Mg Tablet) 10 mg PO DAILY [facility] Last Admin: 11/26/24 09:00 Dose: 10 mg Documented By: KACIE Magnesium Hydroxide (Milk Of Magnesia 30 Ml Oral.Susp) 30 ml PO DAILY PRN PRN Reason: Constipation Magnesium Oxide (Magnesium Oxide 400 Mg Tablet) 200 mg PO DAILY [facility] Last Admin: 11/26/24 08:58 Dose: 200 mg Documented By: KACIE Melatonin (Melatonin 3 Mg Tablet) 6 mg PO BEDTIME PRN PRN Reason: Insomnia Multivitamins/Vitamin C (Multivitamin Tablet) 1 tab PO DAILY [facility] Last Admin: 11/26/24 08:59 Dose: 1 tab Documented By: KACIE Pt Own (Insulin Asp Prt-Insulin Aspart [ Novolog Mix 70-30 U- 100 Insuln] 30 - 76 unit SUBCUT BIDWM [facility] Last Admin: 11/26/24 08:56 Dose: 50 unit Documented By: KACIE Omeprazole (Omeprazole 20 Mg Capsule.) 20 mg PO BID@0630,1630 [facility] Last Admin: 11/26/24 05:34 Dose: 20 mg Documented By: JONAH Ondansetron HCl (Ondansetron Hcl 4 Mg/2 Ml Vial) 4 mg IVPUSH Q8H PRN PRN Reason: Nausea and Vomiting Sodium Chloride (0.9 % Sodium Chloride Flush 3 Ml Syringe) 3 ml IVFLUSH QSHIFT [facility] Last Admin: 11/26/24 09:00 Dose: 3 ml Documented By: KACIE Sucralfate (Sucralfate 1 Gm Tablet) 1 gm PO TIDAC [facility] Last Admin: 11/26/24 11:57 Dose: 1 gm Documented By: KACIE Labs 11/25/24 10:30 11/25/24 10:30 Labs: Laboratory Results - last 24 hr 11/25/24 11/25/24 11/25/24 15:13 17:03 17:08 VBG pH 7.51 H VBG pCO2 34 VBG pO2 61 VBG HCO3 28 H VBG O2 Saturation 87.0 VBG Base Excess 5.6 POC Glucose 328 H Troponin I High Sens 2.8 B-Natriuretic Peptide 224 H 11/25/24 11/25/24 11/25/24 19:03 20:00 20:43 VBG pH VBG pCO2 VBG pO2 VBG HCO3 VBG O2 Saturation VBG Base Excess POC Glucose 297 H 282 H 278 H Troponin I High Sens B-Natriuretic Peptide 11/26/24 11/26/24 07:17 11:09 VBG pH VBG pCO2 VBG pO2 VBG HCO3 VBG O2 Saturation VBG Base Excess POC Glucose 226 H 266 H Troponin I High Sens B-Natriuretic Peptide Assessment and Plan (1) Respiratory syncytial virus (RSV): Status: Acute Plan A 79-year-old male with a history of CAD, DM, Alzheimer's dementia, HLD, CKD stage 3, and chronic AFib presents with a cough and chest discomfort but no fever. CXR is unremarkable, and RSV testing is positive. Oxygen saturation is 95?98% on room air but drops to 87% with ambulation, causing the patient to become winded. He was treated with one updraft. Notably, he is not vaccinated against RSV. RSV, hypoxia with ambulation -conservative management -updraft PRN -robitussin for cough -O2 PRN -check ambulatory O2 Diabetes with hyperglycemai -he will only take his home Novolog Chronic afib, rate controlled on metoprolol -continue eliquis GERD PPI Dementia, continue Memantine and Donezepil DVT prophylaxis, eliquis Full code possible dc later Quality Stroke Does the patient have a stroke diagnosis?: No VTE Prior VTE?: No VTE Risk Level:: Medical - moderate - high VTE Device Contraindication: N/A - Device Ordered VTE Drug Contraindication: N/A - Med Ordered
--- NOTE | 2024-11-26 14:11 | PM.DS ---
DS: Providers Provider Date of admission: 11/25/24 18:21 Primary care physician: Kathy Villafana MD Consults: 11/25/24 21:09 Consult to Wound Care Routine Reason for consultation: blanchable redness to coccyx DS: Diagnosis Discharge Diagnosis (1) Respiratory syncytial virus (RSV): Status: Acute Physical Exam Vital Signs: Vital Signs: Last Vital Signs Temp 99.3 F 11/26/24 07:59 Pulse 80 11/26/24 11:44 Resp 18 11/26/24 11:44 BP 170/85 H 11/26/24 08:59 Pulse Ox 92 11/26/24 07:59 O2 Del Method Room Air 11/26/24 07:59 BMI result Body Mass Index 34.9 DS: Data Data Completed and Pending Completed studies during hospitalization [Text1]: Procedures Control Bleeding in Gastrointestinal Tract, Via Natural or Artificial Opening Endoscopic (08/17/23) Excision of Right Foot Skin, External Approach (10/07/21) Excision of Stomach, Pylorus, Via Natural or Artificial Opening Endoscopic, Diagnostic (08/17/23) Introduction of Mineral-based Topical Hemostatic Agent into Upper GI, Via Natural or Artificial Opening Endoscopic, [employer] 6 (08/17/23) Introduction of Other Therapeutic Substance into Upper GI, Via Natural or Artificial Opening Endoscopic (08/17/23) Transfusion of Nonautologous Frozen Plasma into Peripheral Vein, Percutaneous Approach (08/17/23) Transfusion of Nonautologous Red Blood Cells into Peripheral Vein, Percutaneous Approach (08/17/23) Labs on day of discharge: Laboratory Results - last 24 hr 11/25/24 11/25/24 11/25/24 15:13 17:03 17:08 VBG pH 7.51 H VBG pCO2 34 VBG pO2 61 VBG HCO3 28 H VBG O2 Saturation 87.0 VBG Base Excess 5.6 POC Glucose 328 H Troponin I High Sens 2.8 B-Natriuretic Peptide 224 H 11/25/24 11/25/24 11/25/24 19:03 20:00 20:43 VBG pH VBG pCO2 VBG pO2 VBG HCO3 VBG O2 Saturation VBG Base Excess POC Glucose 297 H 282 H 278 H Troponin I High Sens B-Natriuretic Peptide 11/26/24 11/26/24 07:17 11:09 VBG pH VBG pCO2 VBG pO2 VBG HCO3 VBG O2 Saturation VBG Base Excess POC Glucose 226 H 266 H Troponin I High Sens B-Natriuretic Peptide Discharge Plan Discharge Referrals: Kathy Villafana MD [Primary Care Provider] - 1 Week Discharge Medications: No Action Eliquis 5 mg tablet 5 mg PO BID donepezil 10 mg tablet 1 tab PO BEDTIME CertaVite Senior 0.4-300-250 mg-mcg-mcg tablet 1 tab PO DAILY atorvastatin [Lipitor] 40 mg tablet 40 mg PO BEDTIME Qty: 30 0RF metoprolol tartrate 100 mg tablet 100 mg PO BID memantine 10 mg tablet 10 mg PO BID allopurinol 100 mg tablet 50 mg PO DAILY (DME) lancets [Lancets,Ultra Thin] Misc See Rx Instructions .Route Qty: 100 0RF Rx Instructions: As directed cetirizine 10 mg tablet 10 mg PO DAILY amlodipine 5 mg tablet 5 mg PO DAILY magnesium oxide 250 mg magnesium tablet 250 mg PO DAILY gabapentin 800 mg tablet 800 mg PO BID omeprazole 20 mg capsule,delayed release(DR/EC) 20 mg PO BID insulin asp prt-insulin aspart [Novolog Mix 70-30 U-100 Insuln] 100 unit/mL (70-30) solution 30 - 76 unit subcut BIDWM Rx Instructions: BG 150 or less: 50 units BG >150: 76 units sucralfate 1 gram tablet 1 g PO TIDAC (DME) insulin syringe-needle U-100 1 mL 31 gauge x 5/16 syringe See Rx Instructions subcut TID Qty: 10 Rx Instructions: As directed bumetanide 1 mg tablet 1 mg PO BID@0900,1200 Print Language: Cameroonian
[2024-11-26] MEDS: guaiFENesin 100 MG/5 ML 5 ML LIQUID PO ×2 (14:19→19:28)
--- NOTE | 2024-11-26 14:20 | MHC.CM.PN ---
PT SURENDRA W/SON WHOIS HIS ADMINISTRATIVE MEDICAL DIRECTOR HE HAS OWN TRANSPORTAION HOME DPLAN HOME W/FAMILY
[2024-11-26] MEDS: methylPREDNISolone Sod Succ 40 MG/ML VIAL 20 MG IVPUSH (15:18)
[2024-11-26 16:10] LABS: Glucose, Whole Blood 277 mg/dL (60-115)
[2024-11-26] MEDS: Acetaminophen 325 MG TABLET 650 MG PO (19:21)
[2024-11-26] MEDS: Atorvastatin Calcium 40 MG TABLET PO (19:21)
[2024-11-26] MEDS: Donepezil HCl 10 MG TABLET PO (19:22)
[2024-11-26 20:44] LABS: Glucose, Whole Blood 328 mg/dL (60-115)
--- NOTE | 2024-11-26 22:00 | PC.NURSE ---
HR:123, RR:22, BP: 143/74, Pt placed on tele, and continuos O2 monitor, Dr. Lugo made aware. New orders placed.
[2024-11-26] MEDS: Metoprolol Tartrate 5 MG/5 ML VIAL IVPUSH (23:08)
[2024-11-27] VITALS (9 sets, daily range): BP systolic 135–160; BP diastolic 67–74; PULSE 63–97; RESP 18–20; TEMP 36.2–37.1; O2SAT 90–96
[2024-11-27] MEDS: methylPREDNISolone Sod Succ 40 MG/ML VIAL 20 MG IVPUSH ×2 (02:27→14:29)
[2024-11-27] MEDS: Omeprazole 20 MG CAPSULE.DR PO ×2 (05:46→16:56)
[2024-11-27 07:49] LABS: Glucose, Whole Blood 342 mg/dL (60-115)
[2024-11-27] MEDS: Albuterol/Iprat 2.5/0.5MG 3 ML AMPUL.NEB INHALE ×4 (08:00→19:46)
[2024-11-27] MEDS: Sucralfate 1 GM TABLET PO ×3 (08:16→16:56)
[2024-11-27] MEDS: Gabapentin 400 MG CAPSULE 800 MG PO ×2 (08:17→20:01)
[2024-11-27] MEDS: Magnesium Oxide 400 MG TABLET 200 MG PO (08:17)
[2024-11-27] MEDS: Multivitamin TABLET 1 TAB PO (08:17)
[2024-11-27] MEDS: allopurinoL 100 MG TABLET 50 MG PO (08:17)
[2024-11-27] MEDS: Apixaban 5 MG TABLET PO ×2 (08:18→20:01)
[2024-11-27] MEDS: Loratadine 10 MG TABLET PO (08:18)
[2024-11-27] MEDS: amLODIPine Besylate 5 MG TABLET PO (08:18)
[2024-11-27] MEDS: 0.9 % Sodium Chloride Flush 3 ML SYRINGE IVFLUSH ×3 (08:20→20:01)
[2024-11-27] MEDS: Acetaminophen 325 MG TABLET 650 MG PO (09:35)
[2024-11-27] MEDS: guaiFENesin 100 MG/5 ML 5 ML LIQUID PO ×2 (09:38→15:57)
--- NOTE | 2024-11-27 10:15 | P.PNIM_ITS ---
Subjective Subjective Date of Service: 11/27/24 Interval History: he is feeling better but still on oxygen blood sugars high Physical Exam 2 Vital Signs: Vital Signs: Last Vital Signs Temp 97.3 F 11/27/24 07:37 Pulse 79 11/27/24 08:00 Resp 18 11/27/24 08:00 BP 160/71 H 11/27/24 07:37 Pulse Ox 94 11/27/24 07:37 O2 Del Method Nasal Cannula 11/27/24 07:37 O2 Flow Rate 3.0 11/27/24 07:37 BMI result Body Mass Index 34.9 Const: Other: General: AO X 3, no acute distress Resp: some wheezing riana, normal effort CVS: S1,S2,RRR GI: +BS, NT, no distention Skin: No rash Neuro: motor grossly intact Psych: appropriate affect m Objective Data Active Medications Acetaminophen (Acetaminophen 325 Mg Tablet) 650 mg PO Q6H PRN PRN Reason: Pain, Mild 1-3,fever,headache Last Admin: 11/27/24 09:35 Dose: 650 mg Documented By: KACIE Albuterol/Ipratropium (Albuterol/Iprat 2.5/0.5mg 3 Ml Ampul.Neb) 3 ml INHALE RQ4H WHILE AWAKE [facility] Last Admin: 11/27/24 08:00 Dose: 3 ml Documented By: ALBA Allopurinol (Allopurinol 100 Mg Tablet) 50 mg PO DAILY [facility] Last Admin: 11/27/24 08:17 Dose: 50 mg Documented By: KACIE Amlodipine Besylate (Amlodipine Besylate 5 Mg Tablet) 5 mg PO DAILY [facility]; Protocol Last Admin: 11/27/24 08:18 Dose: 5 mg Documented By: KACIE Apixaban (Apixaban 5 Mg Tablet) 5 mg PO BID [facility] Last Admin: 11/27/24 08:18 Dose: 5 mg Documented By: KACIE Atorvastatin Calcium (Atorvastatin Calcium 40 Mg Tablet) 40 mg PO BEDTIME [facility] Last Admin: 11/26/24 19:21 Dose: 40 mg Documented By: JONAH Calcium Carbonate (Calcium Carbonate 750 Mg Tab.Chew) 750 mg PO Q4H PRN PRN Reason: Heartburn Donepezil HCl (Donepezil Hcl 10 Mg Tablet) 10 mg PO BEDTIME [facility] Last Admin: 11/26/24 19:22 Dose: 10 mg Documented By: JONAH Gabapentin (Gabapentin 400 Mg Capsule) 800 mg PO BID [facility] Last Admin: 11/27/24 08:17 Dose: 800 mg Documented By: KACIE Glucose (Glucose Gel 15 Gm Gel..Gram.) 15 gm PO Q15M PRN; Protocol PRN Reason: per Hypoglycemia Standing Ord. Guaifenesin (Guaifenesin 100 Mg/5 Ml 5 Ml Liquid) 5 ml PO Q4H PRN PRN Reason: Cough Last Admin: 11/27/24 09:38 Dose: 5 ml Documented By: KACIE Dextrose (D10) 250 mls @ 750 mls/hr IV Q15M PRN; Protocol PRN Reason: per Hypoglycemia Standing Ord. Insulin Human Lispro (Insulin Lispro 100 Unit/Ml 3 Ml Vial) 0 unit SUBCUT QIDACHS [facility]; Protocol Loratadine (Loratadine 10 Mg Tablet) 10 mg PO DAILY [facility] Last Admin: 11/27/24 08:18 Dose: 10 mg Documented By: KACIE Magnesium Hydroxide (Milk Of Magnesia 30 Ml Oral.Susp) 30 ml PO DAILY PRN PRN Reason: Constipation Magnesium Oxide (Magnesium Oxide 400 Mg Tablet) 200 mg PO DAILY [facility] Last Admin: 11/27/24 08:17 Dose: 200 mg Documented By: KACIE Melatonin (Melatonin 3 Mg Tablet) 6 mg PO BEDTIME PRN PRN Reason: Insomnia Methylprednisolone Sodium Succinate (Methylprednisolone Sod Succ 40 Mg/Ml Vial) 20 mg IVPUSH Q12H [facility] Last Admin: 11/27/24 02:27 Dose: 20 mg Documented By: JONAH Multivitamins/Vitamin C (Multivitamin Tablet) 1 tab PO DAILY [facility] Last Admin: 11/27/24 08:17 Dose: 1 tab Documented By: KACIE Pt Own (Insulin Asp Prt-Insulin Aspart [ Novolog Mix 70-30 U- 100 Insuln] 30 - 76 unit SUBCUT BIDWM [facility] Last Admin: 11/27/24 07:55 Dose: 60 unit Documented By: KACIE Omeprazole (Omeprazole 20 Mg Capsule.) 20 mg PO BID@0630,1630 [facility] Last Admin: 11/27/24 05:46 Dose: 20 mg Documented By: HO.OR[place]V Ondansetron HCl (Ondansetron Hcl 4 Mg/2 Ml Vial) 4 mg IVPUSH Q8H PRN PRN Reason: Nausea and Vomiting Sodium Chloride (0.9 % Sodium Chloride Flush 3 Ml Syringe) 3 ml IVFLUSH QSHIFT [facility] Last Admin: 11/27/24 08:20 Dose: 3 ml Documented By: KACIE Sucralfate (Sucralfate 1 Gm Tablet) 1 gm PO TIDAC [facility] Last Admin: 11/27/24 08:16 Dose: 1 gm Documented By: KACIE Labs 11/25/24 10:30 11/25/24 10:30 Labs: Laboratory Results - last 24 hr 11/26/24 11/26/24 11/26/24 11:09 16:07 20:31 POC Glucose 266 H 277 H 328 H 11/27/24 07:42 POC Glucose 342 H Assessment and Plan (1) Respiratory syncytial virus (RSV): Status: Acute Plan A 79-year-old male with a history of CAD, DM, Alzheimer's dementia, HLD, CKD stage 3, and chronic AFib presents with a cough and chest discomfort but no fever. CXR is unremarkable, and RSV testing is positive. Oxygen saturation is 95?98% on room air but drops to 87% with ambulation, causing the patient to become winded. He was treated with one updraft. Notably, he is not vaccinated against RSV. RSV, hypoxia with ambulation -conservative management -iv steroid today and change to po tomorrow -updraft PRN -robitussin for cough -O2 PRN Diabetes with hyperglycemai -continue home Novolog 70/30 bid -add sliding scale Chronic afib, rate controlled on metoprolol -continue eliquis GERD PPI Dementia, continue Memantine and Donezepil DVT prophylaxis, eliquis Full code possible dc later Quality Stroke Does the patient have a stroke diagnosis?: No VTE Prior VTE?: No VTE Risk Level:: Medical - moderate - high VTE Device Contraindication: N/A - Device Ordered VTE Drug Contraindication: N/A - Med Ordered
[2024-11-27 11:41] LABS: Glucose, Whole Blood 385 mg/dL (60-115)
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
[2024-11-27] MEDS: Insulin Lispro 100 UNIT/ML 3 ML VIAL SUBCUT ×2 (12:28→20:58)
--- NOTE | 2024-11-27 12:54 | MHC.CM.PN ---
Per MD patient changed to inpatient status. IMM delivered via jacquard twine polisher operator. Not medically cleared for dc. Son updated.
[2024-11-27 16:29] LABS: Glucose, Whole Blood 405 mg/dL (60-115)
--- NOTE | 2024-11-27 16:47 | ECG_ITS ---
Test Reason : CP Blood Pressure : / mmHG Vent. Rate : 118 BPM Atrial Rate : 000 BPM P-R Int : 000 ms QRS Dur : 082 ms QT Int : 320 ms P-R-T Axes : 000 018 247 degrees QTc Int : 448 ms Atrial fibrillation with rapid ventricular response Low voltage QRS Possible Inferior infarct (cited on or before 20-SEP-2024) ST & T wave abnormality, consider lateral ischemia Abnormal ECG When compared with ECG of 25-NOV-2024 16:54, Significant changes have occurred Referred By: Karuna Hearn Electronically Signed By:PANKAJ BRASWELL MD
[2024-11-27] MEDS: Bumetanide 1 MG TABLET PO (16:56)
[2024-11-27] MEDS: Metoprolol Tartrate 100 MG TABLET PO (16:56)
--- NOTE | 2024-11-27 17:54 | PC.NURSE ---
Pt had an elevated blood sugar of 401 and elevated heart rate of 130s. MD was contacted and approved the [facility] request to give home dose of 76 units of novolog 70/30 and ordered metoprolol and bumex with good effect. HR is now stable in 90s
[2024-11-27] MEDS: Donepezil HCl 10 MG TABLET PO (20:01)
[2024-11-27] MEDS: Memantine HCl 10 MG TABLET PO (20:01)
[2024-11-27] MEDS: Atorvastatin Calcium 40 MG TABLET PO (20:01)
[2024-11-27 20:48] LABS: Glucose, Whole Blood 344 mg/dL (60-115)
--- NOTE | 2024-11-27 23:19 | PC.NURSE ---
2245- DESK MAINTENANCE PLANNING CLERK ALERTED ME THAT FAMILY CALLED FOR AN UPDATE, BEING NOT IN SIGHT SHE SUGGESTED TO THEM CALL BACK WITHOUT MAKING ME AWARE. THEREFORE, CALL PLACED TO NUMBER ON CONTACTS, DHARA, AND GAVE PATIENT UPDATE, FAMILY MEMBER WAS THANKFUL FOR CALL BACK AND STATED SHE WOULD CALL IN MORNING OR PLACE CALL TO HER IF ANY CHANGES OR QUESTIONS. STATED i WOULD. WILL CONTINUE TO MONITOR CLOSELY.
[2024-11-28] VITALS (21 sets, daily range): BP systolic 123–196; BP diastolic 68–99; PULSE 65–135; RESP 18–30; TEMP 36.3–39.5; O2SAT 91–100; BMI 34.4
--- NOTE | 2024-11-28 | ECG_ITS ---
Test Reason : SOB Blood Pressure : / mmHG Vent. Rate : 082 BPM Atrial Rate : 000 BPM P-R Int : 000 ms QRS Dur : 078 ms QT Int : 340 ms P-R-T Axes : 000 086 070 degrees QTc Int : 397 ms Atrial fibrillation Abnormal ECG When compared with ECG of 27-NOV-2024 16:47, Borderline criteria for Inferior infarct are no longer Present ST no longer depressed in Anterolateral leads T wave inversion no longer evident in Inferior leads T wave inversion no longer evident in Anterolateral leads Referred By: Chidi Ramirez Electronically Signed By:PANKAJ BRASWELL MD
[2024-11-28] MEDS: Omeprazole 20 MG CAPSULE.DR PO ×2 (05:58→15:34)
--- NOTE | 2024-11-28 07:00 | CA_ITS ---
Transthoracic Echocardiogram Patient (Last, First, Middle): [place] Oquendo A Gender: Male Date of : 1945 Age: 79 Procedure Date: 11/28/2024 Procedure Type: Transthoracic Echocardiogram Location: [facility] [place] Height: 167.64 cm Weight: 104.33 kg BSA: 2.12 m2 Heart Rate: bpm BP: 118 / 60 mmHg Commercial Review Appraiser: THIERRY Referring MD: Chidi Ramirez MD [employer] Blasting: Luke Chavarria MD Symptoms: Heart failure, troponin Study Quality: Technically Difficult/Definity ECG Rhythm: Atrial Fibrillation Conclusions: - 1. 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 At least moderately dilated left atrium 3. Mild mitral regurgitation 4. Normal RV systolic pressure with mildly elevated right atrial pressures Findings Procedure Information Contrast agent, definity, is being given per protocol without apparent complications. Left Ventricle Normal left ventricular cavity size. There is mildly increased left ventricular wall thickness. The left ventricular systolic function is severely decreased. The visually estimated ejection fraction is between 20 25%. Wall Motion Rest Echo Findings The entire apex, the mid anterior, mid inferior, mid anterolateral, mid inferoseptal, mid anteroseptal, and mid inferolateral segments are akinetic. All other scored wall segments showed normal motion. Right Ventricle The right ventricle was not well visualized. Normal right ventricular cavity size. Atria The left atrium is moderately dilated. Interatrial shunt cannot be excluded. The right atrium was not well visualized. Aortic Valve The aortic valve was not well visualized. There is mild calcification of the aortic valve. There is no aortic valve stenosis. There is no aortic valve regurgitation. Mitral Valve There is mild anterior and posterior mitral leaflet thickening. There is mild mitral annular calcification. There is mild mitral valve regurgitation. There is no mitral valve stenosis. Pulmonic Valve The pulmonic valve was not well visualized. Tricuspid Valve There is mild tricuspid valve regurgitation. Mildly elevated right atrial pressure. There is no evidence of pulmonary hypertension. Great Vessels The aorta was not well visualized. The pulmonary artery was not well visualized. Venous The inferior vena cava is mildly dilated and collapses less than 50% with inspiration. Pericardium/Pleural The pericardium was not well visualized. Prior Study Comparison Significant changes compared to prior study. severely reduced LV ejection fraction with multiple regional wall motion abnormality Measurements 2D Linear Measurements IVSd: 1.39 0.6-0.9/0.6-1.0 cm LVIDd: 5.18 3.9-5.3/4.2-5.9 cm LVIDd Index: 2.44 2.4-3.2/2.2-3.1 cm/m2 LVIDs: 4.21 2.0-3.6 cm LVPWd: 1.30 0.7-1.1 cm Ao Root: 3.40 2.1-3.5 cm LA Diam: 4.50 2.7-3.8/3.0-4.0 cm LAIDs Index: 2.12 1.5-2.3 cm/m2 LV Mass: 362.39 67-162/88-224 g LV Mass Index: 170.94 43-95/49-115 g/m2 LVOT Diam: 2.40 3.0+(-)1.3 cm 2D Systolic Function EF 4C: 27.60 >55% EF 2C: 13.60 >55% EF BiP: 22.00 >55% Mitral Valve MV Pk E: 0.99 MV Decel Time: 145.00 E'Lateral: 11.50 E'Medial: 8.70 E/E' Med: 11.30 E/E' Lat: 8.60 PHT: 43.00 MVA PHT: 5.12 Decel Emmet: 6.78 Aortic Valve AoV Pk Fuentes: 1.10 AoV Mn Fuentes: 0.71 AoV VTI: 0.21 AoV Pk Grad: 5.00 Aov Mn Grad: 2.00 ELENA Cont.VTI: 2.50 LVOT LVOT Pk Fuentes: 0.69 LVOT Mn Fuentes: 0.44 LVOT VTI: 0.12 LVOT Pk Grad: 2.00 LVOT Mn Grad: 1.00 LVOT Diam: 2.40 LVOT Area: 4.52 Diastolic Function MV Pk E: 0.99 E'Medial: 8.70 E/E' Med: 11.30 E' Laterial: 11.50 E/E' Lat: 8.60 Right Ventricle TAPSE (mm): 29.00 TVS' Fuentes: 13.00 Tricuspid Valve TR Pk Fuentes: 2.08 TR Pk Grad: 17.00 RA Press: 8.00 RVSP: 25.00 Great Vessels Aorta Ao Root-2D: 3.40 2.0-3.7 cm Ao Asc: 3.50 2.1-3.4 cm Pulmonary Valve PV Pk Fuentes: 0.88 Peak PV Grad: 3.00 Updated in Other Vendor System with Status of Final Luke Chavarria MD electronically signed on 11/28/2024 12:19:44 PM with status of Final
[2024-11-28 07:52] LABS: Glucose, Whole Blood 159 mg/dL (60-115)
[2024-11-28 08:01] LABS: ABG HCO3 32 mmol/L (22-26); ABG pCO2 58 mmHg (32-45); ABG pH 7.35 (7.35-7.45); ABG pO2 81 mmHg (83-108)
--- NOTE | 2024-11-28 08:06 | PC.NURSE ---
Pt is on tele. wind tunnel technician contacted this RN to report a heart rate in the 180s. This RN checked on patient. Pt HR was in 120s and sat 81% on 3L. Respiratory at bedside, Patient was switched to an oxy mask on 15L and recovered to 91% although still tachypneic and belly breathing with crackles. MD reported to bedside and opted to traige patient to med/tele. Pt was moved at 8:05am family contacted.
[2024-11-28] MEDS: Bumetanide 1 MG/4 ML VIAL IVPUSH ×2 (08:35→17:01)
[2024-11-28] MEDS: Metoprolol Tartrate 100 MG TABLET PO ×2 (08:35→21:15)
[2024-11-28] MEDS: 0.9 % Sodium Chloride Flush 3 ML SYRINGE IVFLUSH ×3 (08:35→21:15)
[2024-11-28] MEDS: Sucralfate 1 GM TABLET PO ×2 (08:35→15:34)
[2024-11-28] MEDS: Magnesium Oxide 400 MG TABLET 200 MG PO (08:36)
[2024-11-28] MEDS: amLODIPine Besylate 5 MG TABLET PO (08:36)
[2024-11-28] MEDS: Multivitamin TABLET 1 TAB PO (08:36)
[2024-11-28] MEDS: allopurinoL 100 MG TABLET 50 MG PO (08:36)
[2024-11-28] MEDS: Insulin Lispro 100 UNIT/ML 3 ML VIAL SUBCUT ×2 (08:36→11:40)
[2024-11-28] MEDS: Memantine HCl 10 MG TABLET PO ×2 (08:36→21:13)
[2024-11-28] MEDS: Apixaban 5 MG TABLET PO (08:36)
[2024-11-28] MEDS: Loratadine 10 MG TABLET PO (08:36)
[2024-11-28] MEDS: Gabapentin 400 MG CAPSULE 800 MG PO ×2 (08:37→21:13)
[2024-11-28 09:30] LABS: Hemoglobin 13.1 g/dl (14.0-18.0); Mean Corpuscular HGB Conc 32.8 g/dl (31.0-36.0); Mean Corpuscular Hemoglobin 30.7 pg (27.0-33.0); Mean Corpuscular Volume 93.7 fL (80.0-98.0); Mean Platelet Volume 11.9 fL (9.4-12.4); Platelet Count 181 X10*3/uL (160-400); Red Blood Count 4.27 X10*6/uL (4.60-5.80); Red Cell Distribution Width 16.1 % (11.0-16.0); White Blood Count 14.7 X10*3/uL (4.8-10.8)
[2024-11-28 09:44] LABS: Anion Gap 16 (12-20); Blood Urea Nitrogen 37 mg/dL (9-16); Calcium 8.4 mg/dL (8.4-10.2); Carbon Dioxide 27 mmol/L (22-29); Chloride 98 mmol/L (96-108); Creatinine Clr Calc Pharmacy 40.4; Estimated Glomerular Filt Rate 34; Glucose Random 201 mg/dL (60-115); Potassium 4.7 mmol/L (3.3-5.1); Sodium 136 mmol/L (135-145)
[2024-11-28 09:51] LABS: B Type Natriuretic Peptide 861 pg/mL (<100)
[2024-11-28 09:59] LABS: Lactic Acid 2.5 mmol/L (0.5-2.0)
[2024-11-28 10:02] LABS: Troponin-I High Sensitivity 1049.1 ng/L (<3.5-35.0)
--- NOTE | 2024-11-28 10:28 | HO.PM.IMPN ---
Subjective Subjective Date of Service: 11/28/24 Interval History: Pt seen and examined. Pt was initially admitted for RSV related respiratory distress and was progressing along, right at the begining of the shift, he bacame acute more short of breath with paradoxical breathing, rales on exam, anxious was given IV Bumex, CXR is showing intersitial edema per my review, put on BiPAP and transfer to med/tele.. BNP level is > 800, and troponin I level previously normal on 11/25 is now > 1000. ABG show pH 7/35/81/PCO2 58. ICU consultation requested. Echo done Physical Exam Vital Signs: Vital Signs: Last Vital Signs Temp 99.3 F 11/28/24 08:41 Pulse 109 H 11/28/24 08:41 Resp 28 H 11/28/24 08:41 BP 169/81 H 11/28/24 08:41 Pulse Ox 96 11/28/24 08:41 O2 Del Method BiPAP 11/28/24 08:41 O2 Flow Rate 15 11/28/24 07:39 BMI result Body Mass Index 34.9 General: AO X 3, anxious Resp: bilateral rales, parodoxical breathing patter CVS: S1,S2, iregular ireuglar, 2+ pedal edema GI: +BS, NT, no distention Skin: No rash Neuro: motor grossly intact Psych: appropriate affect Objective Data Active Medications Acetaminophen (Acetaminophen 325 Mg Tablet) 650 mg PO Q6H PRN PRN Reason: Pain, Mild 1-3,fever,headache Last Admin: 11/27/24 09:35 Dose: 650 mg Documented By: KACIE Albuterol/Ipratropium (Albuterol/Iprat 2.5/0.5mg 3 Ml Ampul.Neb) 3 ml INHALE RQ4H WHILE AWAKE [facility] Last Admin: 11/28/24 08:39 Dose: Not Given Documented By: AKASH Non-Admin Reason: pt hr is 140 Allopurinol (Allopurinol 100 Mg Tablet) 50 mg PO DAILY [facility] Last Admin: 11/28/24 08:36 Dose: 50 mg Documented By: RUFUS Amlodipine Besylate (Amlodipine Besylate 5 Mg Tablet) 5 mg PO DAILY [facility]; Protocol Last Admin: 11/28/24 08:36 Dose: 5 mg Documented By: RUFUS Atorvastatin Calcium (Atorvastatin Calcium 40 Mg Tablet) 40 mg PO BEDTIME [facility] Last Admin: 11/27/24 20:01 Dose: 40 mg Documented By: FLAKO Bumetanide (Bumetanide 1 Mg/4 Ml Vial) 1 mg IVPUSH BID@0900,1700 [facility]; Protocol Last Admin: 11/28/24 08:35 Dose: 1 mg Documented By: RUFUS Calcium Carbonate (Calcium Carbonate 750 Mg Tab.Chew) 750 mg PO Q4H PRN PRN Reason: Heartburn Donepezil HCl (Donepezil Hcl 10 Mg Tablet) 10 mg PO BEDTIME [facility] Last Admin: 11/27/24 20:01 Dose: 10 mg Documented By: FLAKO Gabapentin (Gabapentin 400 Mg Capsule) 800 mg PO BID [facility] Last Admin: 11/28/24 08:37 Dose: 800 mg Documented By: RUFUS Glucose (Glucose Gel 15 Gm Gel..Gram.) 15 gm PO Q15M PRN; Protocol PRN Reason: per Hypoglycemia Standing Ord. Guaifenesin (Guaifenesin 100 Mg/5 Ml 5 Ml Liquid) 5 ml PO Q4H PRN PRN Reason: Cough Last Admin: 11/27/24 15:57 Dose: 5 ml Documented By: JOSE MANUEL Heparin Sodium (Porcine) (Heparin Sodium,Porcine 5,000 Unit/Ml Vial) 4,500 unit 40 unit/kg (4500 unit) IVPUSH PROTOCOL BOLUS PRN; Protocol PRN Reason: 40 unit/kg - Heparin Protocol Heparin Sodium (Porcine) (Heparin Sodium,Porcine 5,000 Unit/Ml Vial) 9,100 unit 80 unit/kg (9100 unit) IVPUSH PROTOCOL BOLUS PRN; Protocol PRN Reason: 80 unit/kg - Heparin Protocol Dextrose (D10) 250 mls @ 750 mls/hr IV Q15M PRN; Protocol PRN Reason: per Hypoglycemia Standing Ord. Heparin Sodium/Sodium Chloride (Heparin Sodium,Porcine/1/2ns) 25,000 unit in 250 mls @ 0 mls/hr IVCONT .Q0M [facility]; Protocol Insulin Human Lispro (Insulin Lispro 100 Unit/Ml 3 Ml Vial) 0 unit SUBCUT QIDACHS [facility]; Protocol Last Admin: 11/28/24 08:36 Dose: 2 unit Documented By: RUFUS Loratadine (Loratadine 10 Mg Tablet) 10 mg PO DAILY [facility] Last Admin: 11/28/24 08:36 Dose: 10 mg Documented By: RUFUS Magnesium Hydroxide (Milk Of Magnesia 30 Ml Oral.Susp) 30 ml PO DAILY PRN PRN Reason: Constipation Magnesium Oxide (Magnesium Oxide 400 Mg Tablet) 200 mg PO DAILY [facility] Last Admin: 11/28/24 08:36 Dose: 200 mg Documented By: RUFUS Melatonin (Melatonin 3 Mg Tablet) 6 mg PO BEDTIME PRN PRN Reason: Insomnia Memantine (Memantine Hcl 10 Mg Tablet) 10 mg PO BID [facility] Last Admin: 11/28/24 08:36 Dose: 10 mg Documented By: RUFUS Metoprolol Tartrate (Metoprolol Tartrate 100 Mg Tablet) 100 mg PO BID [facility]; Protocol Last Admin: 11/28/24 08:35 Dose: 100 mg Documented By: RUFUS Multivitamins/Vitamin C (Multivitamin Tablet) 1 tab PO DAILY [facility] Last Admin: 11/28/24 08:36 Dose: 1 tab Documented By: RUFUS Nitroglycerin (Nitroglycerin 2 % Oint 1 Gm Packet) 1 inch TRANSDERMA RQ6H WHILE AWAKE [facility] Pt Own (Insulin Asp Prt-Insulin Aspart [ Novolog Mix 70-30 U- 100 Insuln] 30 - 76 unit SUBCUT BIDWM [facility] Last Admin: 11/28/24 08:37 Dose: 60 unit Documented By: RUFUS Omeprazole (Omeprazole 20 Mg Capsule.Dr) 20 mg PO BID@0630,1630 [facility] Last Admin: 11/28/24 05:58 Dose: 20 mg Documented By: FLAKO Ondansetron HCl (Ondansetron Hcl 4 Mg/2 Ml Vial) 4 mg IVPUSH Q8H PRN PRN Reason: Nausea and Vomiting Sodium Chloride (0.9 % Sodium Chloride Flush 3 Ml Syringe) 3 ml IVFLUSH QSHIFT [facility] Last Admin: 11/28/24 08:35 Dose: 3 ml Documented By: RUFUS Sucralfate (Sucralfate 1 Gm Tablet) 1 gm PO TIDAC [facility] Last Admin: 11/28/24 08:35 Dose: 1 gm Documented By: RUFUS Labs 11/28/24 09:17 11/28/24 09:18 Labs: Laboratory Results - last 24 hr 11/27/24 11/27/24 11/27/24 11:35 16:24 20:39 MCV MCH MCHC RDW Plt Count MPV Absolute Nucleated RBC Nucleated RBC % (auto) O2 Saturation ABG pH at Pt Temp ABG pCO2 at Pt Temp ABG pO2 at Pt Temp ABG HCO3 ABG Base Excess (Actual) Anion Gap Estim Creat Clear Calc Estimated GFR POC Glucose 385 H* 405 H* 344 H Random Glucose Lactic Acid Calcium Troponin I High Sens B-Natriuretic Peptide 11/28/24 11/28/24 11/28/24 07:48 07:51 09:17 MCV 93.7 MCH 30.7 MCHC 32.8 RDW 16.1 H Plt Count 181 MPV 11.9 Absolute Nucleated RBC 0.000 Nucleated RBC % (auto) 0.0 O2 Saturation 92.0 ABG pH at Pt Temp 7.35 ABG pCO2 at Pt Temp 58 H ABG pO2 at Pt Temp 81 L ABG HCO3 32 H ABG Base Excess (Actual) 5.0 Anion Gap Estim Creat Clear Calc Estimated GFR POC Glucose 159 H Random Glucose Lactic Acid 2.5 H* Calcium Troponin I High Sens 1049.1 H* D B-Natriuretic Peptide 11/28/24 09:18 MCV MCH MCHC RDW Plt Count MPV Absolute Nucleated RBC Nucleated RBC % (auto) O2 Saturation ABG pH at Pt Temp ABG pCO2 at Pt Temp ABG pO2 at Pt Temp ABG HCO3 ABG Base Excess (Actual) Anion Gap 16 Estim Creat Clear Calc 40.4 Estimated GFR 34 POC Glucose Random Glucose 201 H Lactic Acid Calcium 8.4 Troponin I High Sens B-Natriuretic Peptide 861 H Assessment and Plan (1) Respiratory syncytial virus (RSV): Status: Acute Plan A 79-year-old male with a history of CAD, DM, Alzheimer's dementia, HLD, CKD stage 3, and chronic AFib presents with a cough and chest discomfort but no fever. CXR is unremarkable, and RSV testing is positive. Oxygen saturation is 95?98% on room air but drops to 87% with ambulation, causing the patient to become winded. Patient was admitted for management for RSV with hypoxia and has have ups and dows but overall was progressing until the morning of 11/28/24 when became acutely more short of breath with significantly hypoxia in into 80s and work up now showing acute NSTEMI, and heart failure. Acute NSTEMI likely ischemic with multiple comorbidities including dementia, CKD, diabetes -starting IV heparin without bolus given that he's eliquis, continue metoprolol, hold ASA for now, continue statin. Nitro past -cardiology has discussed treatment option with the family and given multiple comorbidities, likely not candidate for intervention and therefore will treat medically as above Heart failure--pre-rodríguez echo showing suppress EF, -monitor I/O, electrolytes and BMP -Continue IV Bumex -consider LEI later after discussing with renal CKD/cardiorenal syndorme -Nephrology consult RSV, hypoxia with ambulation -conservative management -hold IV steroid due to tendency for hyperglycemia -updraft PRN -robitussin for cough -O2 PRN Elevated WBC d/t steroid Acute lactic acidosis--not due to sepsis, rather d/t hypoxia for heart failure and NSTEMI Diabetes with hyperglycemai -continue home Novolog 70/30 bid, dose adjusted per sugar level -add sliding scale Chronic afib, rate controlled on metoprolol -continue eliquis (now interim heparin) GERD PPI Dementia, continue Memantine and Donezepil DVT prophylaxis, eliquis/hparin Full code, will discuss goals of care with family Quality Stroke Does the patient have a stroke diagnosis?: No VTE Prior VTE?: No VTE Risk Level:: Medical - moderate - high VTE Device Contraindication: N/A - Device Ordered VTE Drug Contraindication: N/A - Med Ordered
--- NOTE | 2024-11-28 10:44 | P.CONCA_ITS ---
History of Present Illness History of Present Illness Date of Service: 11/28/24 Requesting physician: Chidi Guerreroira [facility] Consult reason: other (Acute respiratory failure) Chief complaint: RSV Narrative: I was consulted emergently to see this patient in cardiology consultation today for sudden acute respiratory distress along with elevated troponin as well as elevated BNP. Patient was admitted to [facility] floor for symptoms of increasing cough and shortness of breath and was subsequently diagnose with respiratory failure due to RSV. Patient has multiple comorbidities including cognitive dysfunction due to dementia and does not participate in much of his care, taken care of by his family, I son Hadley who is his healthcare proxy, chronic atrial fibrillation oral anticoagulation therapy, obesity, chronic kidney disease stage 3, question CAD details unknown, question CHF on diuretics at home, diabetes. Patient yesterday was still having ambulatory hypoxemia and was kept overnight in the hospital for the same. Received steroid yesterday and plan was for discharge today. However this morning developed sudden respiratory distress. Patient does not provide much history. When asked whether he was having any chest pain he denied any chest pain. EKG done yesterday showed atrial fibrillation rapid ventricular response with ST depression anterior leads. Troponin done this morning shows a troponin of 1000. He did receive Eliquis last night. BNP is in the 700 range which is much higher than his baseline BNP. He has respiratory distress with significant hypoxemia and hypercarbia, started on CPAP therapy. He was given IV Bumex. Difficult to obtain much more history. EKG not done this morning. Echocardiogram done at bedside, preliminary reviewed showed distal LAD wall motion abnormality reduced LV ejection fraction which compared to last echocardiogram 2020 shows changes. Review of Systems 2 Review of Systems: Yes Unobtainable due to mental status PMFSH Past Medical History Medical History CAD (coronary artery disease) Trash foot Diabetic foot infection Heart failure with preserved ejection fraction HLD (hyperlipidemia) Diabetes mellitus Atrial fibrillation NSTEMI (non-ST elevated myocardial infarction) Alzheimer's dementia Kidney failure Diabetes HTN (hypertension) Family History Family History Father No problems noted. Mother No problems noted. Surgical History Surgical History No pertinent past surgical history Social History Social History Household Members: Family Household Members Other:: sons and daughter in law Housing: Apartment Do you presently have visiting nurse or other home services: No Alcohol intake: never Patient Tobacco Use Status: Never used Tobacco Smoked in Last 30 Days: No e-Cigarette/Vaping Use: Never Used Second Hand Smoke Exposure: No Use of substances other than those prescribed or required for medical reasons: No Currently Displaying Signs/Symptoms of Drug Intoxication Withdrawal: No Advance Directives: Yes Advance Directives on File: Yes Advance Directives Date on File: 09/06/21 Do you have a plan to hurt others: No Plan Recently lost weight without trying: No How much weight loss: Unsure Eating poorly because of decreased appetite: No Nutrition screen score: 2 Poor oral hygiene: No service: No Current occupational status: retired [employer] Allergies Allergy/AdvReac Type Severity Reaction Status Date / Time No Known Allergies Allergy Verified 11/25/24 10:14 Active Medications: Current Medications Acetaminophen (Acetaminophen 325 Mg Tablet) 650 mg PO Q6H PRN PRN Reason: Pain, Mild 1-3,fever,headache Last Admin: 11/27/24 09:35 Dose: 650 mg Albuterol/Ipratropium (Albuterol/Iprat 2.5/0.5mg 3 Ml Ampul.Neb) 3 ml INHALE RQ4H WHILE AWAKE [facility] Last Admin: 11/28/24 08:39 Dose: Not Given Allopurinol (Allopurinol 100 Mg Tablet) 50 mg PO DAILY [facility] Last Admin: 11/28/24 08:36 Dose: 50 mg Amlodipine Besylate (Amlodipine Besylate 5 Mg Tablet) 5 mg PO DAILY [facility]; Protocol Last Admin: 11/28/24 08:36 Dose: 5 mg Atorvastatin Calcium (Atorvastatin Calcium 40 Mg Tablet) 40 mg PO BEDTIME [facility] Last Admin: 11/27/24 20:01 Dose: 40 mg Bumetanide (Bumetanide 1 Mg/4 Ml Vial) 1 mg IVPUSH BID@0900,1700 [facility]; Protocol Last Admin: 11/28/24 08:35 Dose: 1 mg Calcium Carbonate (Calcium Carbonate 750 Mg Tab.Chew) 750 mg PO Q4H PRN PRN Reason: Heartburn Donepezil HCl (Donepezil Hcl 10 Mg Tablet) 10 mg PO BEDTIME [facility] Last Admin: 11/27/24 20:01 Dose: 10 mg Gabapentin (Gabapentin 400 Mg Capsule) 800 mg PO BID [facility] Last Admin: 11/28/24 08:37 Dose: 800 mg Glucose (Glucose Gel 15 Gm Gel..Gram.) 15 gm PO Q15M PRN; Protocol PRN Reason: per Hypoglycemia Standing Ord. Guaifenesin (Guaifenesin 100 Mg/5 Ml 5 Ml Liquid) 5 ml PO Q4H PRN PRN Reason: Cough Last Admin: 11/27/24 15:57 Dose: 5 ml Heparin Sodium (Porcine) (Heparin Sodium,Porcine 5,000 Unit/Ml Vial) 4,500 unit 40 unit/kg (4500 unit) IVPUSH PROTOCOL BOLUS PRN; Protocol PRN Reason: 40 unit/kg - Heparin Protocol Heparin Sodium (Porcine) (Heparin Sodium,Porcine 5,000 Unit/Ml Vial) 9,100 unit 80 unit/kg (9100 unit) IVPUSH PROTOCOL BOLUS PRN; Protocol PRN Reason: 80 unit/kg - Heparin Protocol Dextrose (D10) 250 mls @ 750 mls/hr IV Q15M PRN; Protocol PRN Reason: per Hypoglycemia Standing Ord. Heparin Sodium/Sodium Chloride (Heparin Sodium,Porcine/1/2ns) 25,000 unit in 250 mls @ 0 mls/hr IVCONT .Q0M [facility]; Protocol Insulin Human Lispro (Insulin Lispro 100 Unit/Ml 3 Ml Vial) 0 unit SUBCUT QIDACHS [facility]; Protocol Last Admin: 11/28/24 08:36 Dose: 2 unit Loratadine (Loratadine 10 Mg Tablet) 10 mg PO DAILY [facility] Last Admin: 11/28/24 08:36 Dose: 10 mg Magnesium Hydroxide (Milk Of Magnesia 30 Ml Oral.Susp) 30 ml PO DAILY PRN PRN Reason: Constipation Magnesium Oxide (Magnesium Oxide 400 Mg Tablet) 200 mg PO DAILY [facility] Last Admin: 11/28/24 08:36 Dose: 200 mg Melatonin (Melatonin 3 Mg Tablet) 6 mg PO BEDTIME PRN PRN Reason: Insomnia Memantine (Memantine Hcl 10 Mg Tablet) 10 mg PO BID [facility] Last Admin: 11/28/24 08:36 Dose: 10 mg Metoprolol Tartrate (Metoprolol Tartrate 100 Mg Tablet) 100 mg PO BID [facility]; Protocol Last Admin: 11/28/24 08:35 Dose: 100 mg Multivitamins/Vitamin C (Multivitamin Tablet) 1 tab PO DAILY [facility] Last Admin: 11/28/24 08:36 Dose: 1 tab Nitroglycerin (Nitroglycerin 2 % Oint 1 Gm Packet) 1 inch TRANSDERMA RQ6H WHILE AWAKE [facility] Pt Own (Insulin Asp Prt-Insulin Aspart [ Novolog Mix 70-30 U- 100 Insuln] 30 - 76 unit SUBCUT BIDWM [facility] Last Admin: 11/28/24 08:37 Dose: 60 unit Omeprazole (Omeprazole 20 Mg Capsule.Dr) 20 mg PO BID@0630,1630 [facility] Last Admin: 11/28/24 05:58 Dose: 20 mg Ondansetron HCl (Ondansetron Hcl 4 Mg/2 Ml Vial) 4 mg IVPUSH Q8H PRN PRN Reason: Nausea and Vomiting Sodium Chloride (0.9 % Sodium Chloride Flush 3 Ml Syringe) 3 ml IVFLUSH QSHIFT [facility] Last Admin: 11/28/24 08:35 Dose: 3 ml Sucralfate (Sucralfate 1 Gm Tablet) 1 gm PO TIDAC [facility] Last Admin: 11/28/24 08:35 Dose: 1 gm Home Medications ?Medication ?Instructions ?Recorded ?Confirmed ?Last Taken ?Type apixaban 5 mg tablet (Eliquis) 5 mg PO BID 09/05/21 11/25/24 11/25/24 History donepezil 10 mg tablet 1 tab PO BEDTIME 09/05/21 11/25/24 11/24/24 History jqqevisv-kpv-kejjl acid 0.4 1 tab PO DAILY 09/05/21 11/25/24 11/25/24 History mg-lycopene 300 mcg-lutein 250 mcg tablet (CertaVite Senior) allopurinol 100 mg tablet 50 mg PO DAILY gout pain 10/07/21 11/25/24 11/25/24 History insulin syringe-needle U-100 1 mL #10 ea 12/22/21 05/08/22 Unknown History 31 gauge x 04/10 bumetanide 1 mg tablet 1 mg PO BID@0900,1200 05/08/22 11/25/24 11/25/24 History memantine 10 mg tablet 10 mg PO BID 05/08/22 11/25/24 11/25/24 History metoprolol tartrate 100 mg tablet 100 mg PO BID 05/08/22 11/25/24 11/25/24 History amlodipine 5 mg tablet 5 mg PO DAILY 08/17/23 11/25/24 11/25/24 History cetirizine 10 mg tablet 10 mg PO DAILY congestion 08/17/23 11/25/24 11/25/24 History gabapentin 800 mg tablet 800 mg PO BID 05/17/24 11/25/24 11/25/24 History insulin aspar prt-insulin aspart 30 - 76 unit subcut BIDWM 05/17/24 11/25/24 11/25/24 History 100 unit/mL (70-30) subcutaneous soln (Novolog Mix 70-30 U-100 Insuln) omeprazole 20 mg capsule,delayed 20 mg PO BID 05/17/24 11/25/24 11/25/24 History release sucralfate 1 gram tablet 1 g PO TIDAC 05/17/24 11/25/24 11/25/24 History magnesium oxide 250 mg PO DAILY 11/25/24 11/25/24 11/25/24 History Physical Exam 2 Vital Signs: Vital Signs: Last Vital Signs Temp 99.3 F 11/28/24 08:41 Pulse 109 H 11/28/24 08:41 Resp 28 H 11/28/24 08:41 BP 169/81 H 11/28/24 08:41 Pulse Ox 96 11/28/24 08:41 O2 Del Method BiPAP 11/28/24 08:41 O2 Flow Rate 15 11/28/24 07:39 BMI result Body Mass Index 34.9 Const: General: cooperative, alert, awake and in distress moderate and respiratory Nutritional Appearance: obese HEENT: Head: Yes normocephalic and Yes atraumatic Neck: Neck: Yes trachea midline, Yes supple and Yes JVD Resp: Effort & Inspection: decreased respiratory effort and respiratory distress Auscultation: no wheezes Cardio: Jugular venous distension: JVD Rate: tachycardic Rhythm: a bnormal rhythm irregularly irregular Heart sounds: S1 normal heart sound present, S2 normal heart sound present, no click, no gallops, no murmurs and no rubs GI: Auscultation: normal bowel sounds Skin: General skin exam: no rashes or lesions noted Neuro: General: moves all extremities Extrem: General: No clubbing, No cyanosis and Yes edema Psych: Appearance: grossly normal Objective Labs and Meds 11/28/24 09:17 11/28/24 09:18 Lab results: Laboratory Results - last 24 hr 11/27/24 11/27/24 11/27/24 11:35 16:24 20:39 WBC RBC Hgb Hct MCV MCH MCHC RDW Plt Count MPV Absolute Nucleated RBC Nucleated RBC % (auto) O2 Saturation ABG pH at Pt Temp ABG pCO2 at Pt Temp ABG pO2 at Pt Temp ABG HCO3 ABG Base Excess (Actual) Sodium Potassium Chloride Carbon Dioxide Anion Gap BUN Creatinine Estim Creat Clear Calc Estimated GFR POC Glucose 385 H* 405 H* 344 H Random Glucose Lactic Acid Calcium Troponin I High Sens B-Natriuretic Peptide 11/28/24 11/28/24 11/28/24 07:48 07:51 09:17 WBC 14.7 H RBC 4.27 L Hgb 13.1 L Hct 40.0 L MCV 93.7 MCH 30.7 MCHC 32.8 RDW 16.1 H Plt Count 181 MPV 11.9 Absolute Nucleated RBC 0.000 Nucleated RBC % (auto) 0.0 O2 Saturation 92.0 ABG pH at Pt Temp 7.35 ABG pCO2 at Pt Temp 58 H ABG pO2 at Pt Temp 81 L ABG HCO3 32 H ABG Base Excess (Actual) 5.0 Sodium Potassium Chloride Carbon Dioxide Anion Gap BUN Creatinine Estim Creat Clear Calc Estimated GFR POC Glucose 159 H Random Glucose Lactic Acid 2.5 H* Calcium Troponin I High Sens 1049.1 H* D B-Natriuretic Peptide 11/28/24 09:18 WBC RBC Hgb Hct MCV MCH MCHC RDW Plt Count MPV Absolute Nucleated RBC Nucleated RBC % (auto) O2 Saturation ABG pH at Pt Temp ABG pCO2 at Pt Temp ABG pO2 at Pt Temp ABG HCO3 ABG Base Excess (Actual) Sodium 136 Potassium 4.7 Chloride 98 Carbon Dioxide 27 Anion Gap 16 BUN 37 H Creatinine 1.90 H Estim Creat Clear Calc 40.4 Estimated GFR 34 POC Glucose Random Glucose 201 H Lactic Acid Calcium 8.4 Troponin I High Sens B-Natriuretic Peptide 861 H Imaging Radiologist's impression: Impressions Chest X-Ray 11/28/24 09:00 IMPRESSION: Cardiomegaly with mild CHF. Electronically signed by: Demond Barajas MD 11/28/2024 10:27 AM [facility] Assessment and Plan (1) Acute respiratory failure: Status: Acute Acute respiratory failure in this elderly gentleman admitted for hypoxemic respiratory failure related to RSV virus with underlying history of CAD, diabetes, chronic atrial fibrillation, chronic kidney disease, diabetes, hypertension, heart failure preserved ejection fraction. Acute findings suggestive of elevated troponins along with EKG findings suggestive of ischemia in the LAD territory with echocardiogram finding showing wall motion abnormality which could represent either stress-induced cardiomyopathy most likely ischemic LAD territory ischemia. He has high likelihood of having underlying coronary artery disease given his multiple risk factors. Given his multiple comorbidities, discussed with family management will be conservative. At this point time I would switch him to IV Bumex drip. Strict intake and output chart needs to be pursued. Patient appears to be significantly fluid overloaded at this point in time. Continue supportive care. Switch to IV heparin without bolus. Can hold off on aspirin therapy for now as he just received full oral anticoagulation yesterday with prior history of GI bleed. Continue high- intensity statin therapy. Continue metoprolol for rate control and anti ischemic therapy as he is on chronic metoprolol therapy. Also start nitrates for preload reduction as well as anti ischemic therapy. Will review echocardiogram. Overall prognosis is guarded. Discussed with Nephrology given that his renal function is overall stable if he can be started on angiotensin receptor gabriela for afterload reduction. If not an blood pressure remains elevated can start on amlodipine therapy Will follow with you. Greater than 40 minutes was spent in managing his complex care and discussing the case with hospitalist team as well as his family. Procedures Date of Service Date of Service: 11/28/24
[2024-11-28 11:15] LABS: PTT Heparin Drip 34.4 SEC (53-77.9)
[2024-11-28 11:27] LABS: Reflex Lactate? Lactic Acid Added
[2024-11-28] MEDS: Albuterol/Iprat 2.5/0.5MG 3 ML AMPUL.NEB INHALE ×4 (11:44→22:11)
[2024-11-28] MEDS: Heparin Sodium,Porcine/1/2NS 25,000 UNIT/250 ML IV.SOLN 10 UNIT IVCONT (11:44)
[2024-11-28 11:58] LABS: ABG Refer to POC result
[2024-11-28 12:05] LABS: Glucose, Whole Blood 166 mg/dL (60-115)
[2024-11-28 12:22] LABS: ~Lactic Acid-LAB USE ONLY 1.9 mmol/L (0.5-2.0)
[2024-11-28] MEDS: Acetaminophen 325 MG TABLET 650 MG PO (13:25)
[2024-11-28] MEDS: Nitroglycerin 2 % Oint 1 GM Packet 1 INCH TRANSDERMA ×2 (13:26→21:13)
--- NOTE | 2024-11-28 14:41 | HO.WOUND ---
Wound Consult: Initial 79yr old male [place] [facility] [place] - See progress notes and H&P for detailed history.? Wound consult placed for bridge of nose and coccyx wound POA.? Patient agreeable to assessment and photo documentation.? Citizen [place] speaking patient tobacco wetter present. Coccyx and Buttock Etiology: ?MASD (Moisture Associated Skin Damage) Measurements: 1cm x 0.1cm x 0.1cm Wound Bed: Linear split along base of coccyx fold red clean wound bed Drainage / Odor: scant serosang Edges: ? mirrired and linear and attached Alicia wound: ?Moisture - red pink intact blanchable tissue - No Induration, Fluctuance or Warmth noted Pain: denies Goals of Treatment: ? Barrier cream to aid in protection from moisture and friction Bridge of nose - light pink intact blanchable tissue over bony prominence. no BIPAP in use at this time no topical interventions needed at this time. Should patient return to Bipap use - Mepilex lite foam dressing should be applied under device to protect from friction and to aid in pressure redistribution. Recommendations: 1. Turn and Reposition every 2 hours and as needed for patient comfort.? Use pillows or wedges to support off loading positions. 2. Off Load all bony prominences with use of pillows and heel boots if needed.? Apply Preventative foams where needed. ? 3. Monitor for incontinence and moisture control, use barrier creams when needed for prevention and treatment. 4. Provide adequate and supplemental nutrition.? 5.Continue low air loss mattress. 6. When applicable maintain blood glucose levels per Providers order. 7. Bridge of nose - When BIPAP in use apply Mepilex lite under device to protect from friction. Change every other day and PRN. 8. Coccyx and Buttocks - Off Load Pressure with Q2hr turns and use of pillows. Cleanse with PH balanced wipes, pat dry. Apply barrier cream twice daily and PRN. Re-consult wound care Nurse for wound deterioration or wound changes.
[2024-11-28 15:13] LABS: Glucose, Whole Blood 75 mg/dL (60-115)
--- NOTE | 2024-11-28 16:08 | P.CONNP_ITS ---
History of Present Illness Reason for Consult Consult date: 11/28/24 Chief Complaint Chief complaint: RSV History of Present Illness Narrative: 79-year-old male with CKD 3 B, CAD, DM, Alzheimer's dementia, HLD and chronic AFib presented to [facility] with cough and chest discomfort without fever. CXR is unremarkable, and RSV testing has been positive. Oxygen saturation is 95?98% on room air but drops to 87% with ambulation, causing the patient to become SOB. Patient was admitted for management for RSV with hypoxia. He became acutely more short of breath with significantly hypoxia in into 80s and work up now showed acute NSTEMI, and heart failure. Nephrology has been consulted to assist in his clinical care during his current hospital stay. Review of Systems Review of Systems Yes all other systems are reviewed and are negative PMFSH Past Medical History Medical History CAD (coronary artery disease) Trash foot Diabetic foot infection Heart failure with preserved ejection fraction HLD (hyperlipidemia) Diabetes mellitus Atrial fibrillation NSTEMI (non-ST elevated myocardial infarction) Alzheimer's dementia Kidney failure Diabetes HTN (hypertension) Family History Family History Father No problems noted. Mother No problems noted. Surgical History Surgical History No pertinent past surgical history Social History Social History Household Members: Family Household Members Other:: sons and daughter in law Housing: Apartment Do you presently have visiting nurse or other home services: No Alcohol intake: never Patient Tobacco Use Status: Never used Tobacco Smoked in Last 30 Days: No e-Cigarette/Vaping Use: Never Used Second Hand Smoke Exposure: No Use of substances other than those prescribed or required for medical reasons: No Currently Displaying Signs/Symptoms of Drug Intoxication Withdrawal: No Advance Directives: Yes Advance Directives on File: Yes Advance Directives Date on File: 09/06/21 Do you have a plan to hurt others: No Plan Recently lost weight without trying: No How much weight loss: Unsure Eating poorly because of decreased appetite: No Nutrition screen score: 2 Poor oral hygiene: No service: No Current occupational status: retired Meds Allergies Allergy/AdvReac Type Severity Reaction Status Date / Time No Known Allergies Allergy Verified 11/25/24 10:14 Active Medications: Current Medications Acetaminophen (Acetaminophen 325 Mg Tablet) 650 mg PO Q6H PRN PRN Reason: Pain, Mild 1-3,fever,headache Last Admin: 11/28/24 13:25 Dose: 650 mg Albuterol/Ipratropium (Albuterol/Iprat 2.5/0.5mg 3 Ml Ampul.Neb) 3 ml INHALE RQ4H WHILE AWAKE [facility] Last Admin: 11/28/24 15:17 Dose: 3 ml Allopurinol (Allopurinol 100 Mg Tablet) 50 mg PO DAILY [facility] Last Admin: 11/28/24 08:36 Dose: 50 mg Amlodipine Besylate (Amlodipine Besylate 5 Mg Tablet) 5 mg PO DAILY [facility]; Protocol Last Admin: 11/28/24 08:36 Dose: 5 mg Atorvastatin Calcium (Atorvastatin Calcium 40 Mg Tablet) 40 mg PO BEDTIME [facility] Last Admin: 11/27/24 20:01 Dose: 40 mg Bumetanide (Bumetanide 1 Mg/4 Ml Vial) 1 mg IVPUSH BID@0900,1700 [facility]; Protocol Last Admin: 11/28/24 08:35 Dose: 1 mg Calcium Carbonate (Calcium Carbonate 750 Mg Tab.Chew) 750 mg PO Q4H PRN PRN Reason: Heartburn Donepezil HCl (Donepezil Hcl 10 Mg Tablet) 10 mg PO BEDTIME [facility] Last Admin: 11/27/24 20:01 Dose: 10 mg Gabapentin (Gabapentin 400 Mg Capsule) 800 mg PO BID [facility] Last Admin: 11/28/24 08:37 Dose: 800 mg Glucose (Glucose Gel 15 Gm Gel..Gram.) 15 gm PO Q15M PRN; Protocol PRN Reason: per Hypoglycemia Standing Ord. Guaifenesin (Guaifenesin 100 Mg/5 Ml 5 Ml Liquid) 5 ml PO Q4H PRN PRN Reason: Cough Last Admin: 11/27/24 15:57 Dose: 5 ml Heparin Sodium (Porcine) (Heparin Sodium,Porcine 5,000 Unit/Ml Vial) 4,500 unit 40 unit/kg (4500 unit) IVPUSH PROTOCOL BOLUS PRN; Protocol PRN Reason: 40 unit/kg - Heparin Protocol Heparin Sodium (Porcine) (Heparin Sodium,Porcine 5,000 Unit/Ml Vial) 9,100 unit 80 unit/kg (9100 unit) IVPUSH PROTOCOL BOLUS PRN; Protocol PRN Reason: 80 unit/kg - Heparin Protocol Dextrose (D10) 250 mls @ 750 mls/hr IV Q15M PRN; Protocol PRN Reason: per Hypoglycemia Standing Ord. Heparin Sodium/Sodium Chloride (Heparin Sodium,Porcine/1/2ns) 25,000 unit in 250 mls @ 0 mls/hr IVCONT .Q0M [facility]; Protocol Last Admin: 11/28/24 11:44 Dose: 8.94 units/kg/hr, 10 mls/hr Insulin Human Lispro (Insulin Lispro 100 Unit/Ml 3 Ml Vial) 0 unit SUBCUT QIDACHS [facility]; Protocol Last Admin: 11/28/24 15:29 Dose: Not Given Loratadine (Loratadine 10 Mg Tablet) 10 mg PO DAILY [facility] Last Admin: 11/28/24 08:36 Dose: 10 mg Magnesium Hydroxide (Milk Of Magnesia 30 Ml Oral.Susp) 30 ml PO DAILY PRN PRN Reason: Constipation Magnesium Oxide (Magnesium Oxide 400 Mg Tablet) 200 mg PO DAILY [facility] Last Admin: 11/28/24 08:36 Dose: 200 mg Melatonin (Melatonin 3 Mg Tablet) 6 mg PO BEDTIME PRN PRN Reason: Insomnia Memantine (Memantine Hcl 10 Mg Tablet) 10 mg PO BID [facility] Last Admin: 11/28/24 08:36 Dose: 10 mg Metoprolol Tartrate (Metoprolol Tartrate 100 Mg Tablet) 100 mg PO BID [facility]; Protocol Last Admin: 11/28/24 08:35 Dose: 100 mg Multivitamins/Vitamin C (Multivitamin Tablet) 1 tab PO DAILY [facility] Last Admin: 11/28/24 08:36 Dose: 1 tab Nitroglycerin (Nitroglycerin 2 % Oint 1 Gm Packet) 1 inch TRANSDERMA RQ6H WHILE AWAKE [facility] Last Admin: 11/28/24 13:26 Dose: 1 inch Pt Own (Insulin Asp Prt-Insulin Aspart [ Novolog Mix 70-30 U- 100 Insuln] 30 - 76 unit SUBCUT BIDWM [facility] Last Admin: 11/28/24 08:37 Dose: 60 unit Omeprazole (Omeprazole 20 Mg Capsule.) 20 mg PO BID@0630,1630 [facility] Last Admin: 11/28/24 15:34 Dose: 20 mg Ondansetron HCl (Ondansetron Hcl 4 Mg/2 Ml Vial) 4 mg IVPUSH Q8H PRN PRN Reason: Nausea and Vomiting Sodium Chloride (0.9 % Sodium Chloride Flush 3 Ml Syringe) 3 ml IVFLUSH QSHIFT [facility] Last Admin: 11/28/24 15:34 Dose: 3 ml Sucralfate (Sucralfate 1 Gm Tablet) 1 gm PO TIDAC [facility] Last Admin: 11/28/24 15:34 Dose: 1 gm Home Medications ?Medication ?Instructions ?Recorded ?Confirmed ?Last Taken ?Type apixaban 5 mg tablet (Eliquis) 5 mg PO BID 09/05/21 11/25/24 11/25/24 History donepezil 10 mg tablet 1 tab PO BEDTIME 09/05/21 11/25/24 11/24/24 History xxydepnc-ajx-mrrvf acid 0.4 1 tab PO DAILY 09/05/21 11/25/24 11/25/24 History mg-lycopene 300 mcg-lutein 250 mcg tablet ([employer]ite Senior) allopurinol 100 mg tablet 50 mg PO DAILY gout pain 10/07/21 11/25/24 11/25/24 History insulin syringe-needle U-100 1 mL #10 ea 12/22/21 05/08/22 Unknown History 31 gauge x 04/10 bumetanide 1 mg tablet 1 mg PO BID@0900,1200 05/08/22 11/25/24 11/25/24 History memantine 10 mg tablet 10 mg PO BID 05/08/22 11/25/24 11/25/24 History metoprolol tartrate 100 mg tablet 100 mg PO BID 05/08/22 11/25/24 11/25/24 History amlodipine 5 mg tablet 5 mg PO DAILY 08/17/23 11/25/24 11/25/24 History cetirizine 10 mg tablet 10 mg PO DAILY congestion 08/17/23 11/25/24 11/25/24 History gabapentin 800 mg tablet 800 mg PO BID 05/17/24 11/25/24 11/25/24 History insulin aspar prt-insulin aspart 30 - 76 unit subcut BIDWM 05/17/24 11/25/24 11/25/24 History 100 unit/mL (70-30) subcutaneous soln (Novolog Mix 70-30 U-100 Insuln) omeprazole 20 mg capsule,delayed 20 mg PO BID 05/17/24 11/25/24 11/25/24 History release sucralfate 1 gram tablet 1 g PO TIDAC 05/17/24 11/25/24 11/25/24 History magnesium oxide 250 mg PO DAILY 11/25/24 11/25/24 11/25/24 History Physical Exam Vital Signs: Last Vital Signs Temp 98.9 F 11/28/24 15:06 Pulse 80 11/28/24 15:19 Resp 18 11/28/24 15:19 BP 123/75 11/28/24 15:06 Pulse Ox 95 11/28/24 15:06 O2 Del Method Nasal Cannula 11/28/24 15:06 O2 Flow Rate 4 11/28/24 15:06 BMI result Body Mass Index 34.4 Const General: comfortable and no acute distress HEENT Head: Yes normocephalic Mouth: Normal oral and palatal mucosa present Eyes EOM: EOMs intact bilaterally Neck Neck: Yes supple Resp Auscultation: clear to auscultation bilaterally Cardio Jugular venous distension: no JVD Rate: regular rate GI Palpation (GI): Soft to palpation Auscultation: normal bowel sounds General: Yes no CVA tenderness Back/Spine/Pelvis Back: no CVA tenderness Skin General skin exam: no rashes or lesions noted Neuro General: moves all extremities Results Lab Results 11/28/24 09:17 11/28/24 09:18 Lab results: Chemistry 11/28/24 09:18 Sodium 136 Potassium 4.7 Carbon Dioxide 27 BUN 37 H Creatinine 1.90 H Calcium 8.4 Hematology 11/28/24 09:17 WBC 14.7 H Hgb 13.1 L Plt Count 181 Assessment and Plan (1) CKD stage 3b, GFR 30-44 ml/min: Status: Acute Plan Has underlying CKD 3. Renal function close to baseline Had been having hypervolemia with hypoxia; Getting diuresis Will hold ACEI until current acute issues have resolved Could start SGLT2 i; C/W rest of current supportive care for now Shall continue to closely follow up Procedures Date of Service Date of Service: 11/28/24
[2024-11-28 17:01] LABS: Glucose, Whole Blood 111 mg/dL (60-115)
[2024-11-28 19:22] LABS: PTT Heparin Drip 63.4 SEC (53-77.9)
[2024-11-28 21:02] LABS: Glucose, Whole Blood 140 mg/dL (60-115)
[2024-11-28] MEDS: Donepezil HCl 10 MG TABLET PO (21:13)
[2024-11-28] MEDS: Atorvastatin Calcium 40 MG TABLET PO (21:13)
[2024-11-28] MEDS: guaiFENesin 100 MG/5 ML 5 ML LIQUID PO (21:16)
[2024-11-29] VITALS (17 sets, daily range): BP systolic 116–154; BP diastolic 66–89; PULSE 76–97; RESP 14–24; TEMP 36.2–37.1; O2SAT 87–98
--- NOTE | 2024-11-29 | ECG_ITS ---
Test Reason : nstemi Blood Pressure : / mmHG Vent. Rate : 074 BPM Atrial Rate : 000 BPM P-R Int : 000 ms QRS Dur : 078 ms QT Int : 464 ms P-R-T Axes : 000 062 163 degrees QTc Int : 515 ms Atrial fibrillation Low voltage QRS Cannot rule out Anterior infarct , age undetermined ST & Marked T-wave abnormality, consider inferolateral ischemia Prolonged QT Abnormal ECG When compared with ECG of 28-NOV-2024 10:52, T wave inversion now evident in Inferior leads T wave inversion now evident in Anterolateral leads QT has lengthened Referred By: Chidi Calderon Electronically Signed By:PANKAJ BRASWELL MD
[2024-11-29 03:52] LABS: PTT Heparin Drip 81.3 SEC (53-77.9)
[2024-11-29 07:28] LABS: Glucose, Whole Blood 185 mg/dL (60-115)
[2024-11-29] MEDS: Albuterol/Iprat 2.5/0.5MG 3 ML AMPUL.NEB INHALE ×4 (07:35→19:30)
[2024-11-29] MEDS: Gabapentin 400 MG CAPSULE 800 MG PO ×2 (08:29→22:00)
[2024-11-29] MEDS: allopurinoL 100 MG TABLET 50 MG PO (08:29)
[2024-11-29] MEDS: Omeprazole 20 MG CAPSULE.DR PO ×2 (08:29→17:09)
[2024-11-29] MEDS: Sucralfate 1 GM TABLET PO ×3 (08:30→17:09)
[2024-11-29] MEDS: Magnesium Oxide 400 MG TABLET 200 MG PO (08:30)
[2024-11-29] MEDS: Multivitamin TABLET 1 TAB PO (08:31)
[2024-11-29] MEDS: amLODIPine Besylate 5 MG TABLET PO (08:31)
[2024-11-29] MEDS: Metoprolol Tartrate 100 MG TABLET PO ×2 (08:31→22:58)
[2024-11-29] MEDS: Memantine HCl 10 MG TABLET PO ×2 (08:31→22:00)
[2024-11-29] MEDS: Loratadine 10 MG TABLET PO (08:31)
[2024-11-29] MEDS: Insulin Lispro 100 UNIT/ML 3 ML VIAL SUBCUT ×3 (08:32→22:00)
[2024-11-29] MEDS: Nitroglycerin 2 % Oint 1 GM Packet 1 INCH TRANSDERMA ×3 (08:32→22:57)
[2024-11-29] MEDS: 0.9 % Sodium Chloride Flush 3 ML SYRINGE IVFLUSH ×2 (08:33→13:17)
[2024-11-29] MEDS: Bumetanide 25 MG in Container,Empty 0 ML IVCONT (08:53)
--- NOTE | 2024-11-29 10:21 | P.PNIM_ITS ---
Subjective Subjective Date of Service: 11/29/24 Interval History: F/u on acute NSTEMI and heart failure. He was admitted for RSV relaed dyspnea, and during hospitalization has developped acute [place] complicated by heart failure, acute hypoxic respiratory failure necessitating BiPAP and CPAP. .He did well overnight, more comfortable. stil with signs of fluid overload, they are not able to reliably measure urine output d/t incontinence. Physical Exam 2 Vital Signs: Vital Signs: Last Vital Signs Temp 98.2 F 11/29/24 08:00 Pulse 90 11/29/24 08:00 Resp 14 11/29/24 08:00 BP 135/66 11/29/24 08:00 Pulse Ox 98 11/29/24 08:00 O2 Del Method CPAP 11/29/24 08:00 O2 Flow Rate 3 11/29/24 00:00 FiO2 40 11/29/24 01:20 BMI result Body Mass Index 34.4 Const: Other: General: AO X 3, no acute distress Resp: CTA bilateral CVS: S1,S2, iregular iregular. 2 + pedal edema GI: +BS, NT, no distention Skin: No rash Neuro: motor grossly intact Psych: appropriate affect Objective Data Active Medications Acetaminophen (Acetaminophen 325 Mg Tablet) 650 mg PO Q6H PRN PRN Reason: Pain, Mild 1-3,fever,headache Last Admin: 11/28/24 13:25 Dose: 650 mg Documented By: RUFUS Albuterol/Ipratropium (Albuterol/Iprat 2.5/0.5mg 3 Ml Ampul.Neb) 3 ml INHALE RQ4H WHILE AWAKE [facility] Last Admin: 11/29/24 07:35 Dose: 3 ml Documented By: GHISLAINE Comments: scanner not working Albuterol/Ipratropium (Albuterol/Iprat 2.5/0.5mg 3 Ml Ampul.Neb) 3 ml INHALE Q4H PRN PRN Reason: Wheezing Last Admin: 11/28/24 22:11 Dose: 3 ml Documented By: NANCY Allopurinol (Allopurinol 100 Mg Tablet) 50 mg PO DAILY [facility] Last Admin: 11/29/24 08:29 Dose: 50 mg Documented By: RUFUS Amlodipine Besylate (Amlodipine Besylate 5 Mg Tablet) 5 mg PO DAILY [facility]; Protocol Last Admin: 11/29/24 08:31 Dose: 5 mg Documented By: RUFUS Atorvastatin Calcium (Atorvastatin Calcium 40 Mg Tablet) 40 mg PO BEDTIME [facility] Last Admin: 11/28/24 21:13 Dose: 40 mg Documented By: BAUTISTA Calcium Carbonate (Calcium Carbonate 750 Mg Tab.Chew) 750 mg PO Q4H PRN PRN Reason: Heartburn Donepezil HCl (Donepezil Hcl 10 Mg Tablet) 10 mg PO BEDTIME [facility] Last Admin: 11/28/24 21:13 Dose: 10 mg Documented By: BAUTISTA Gabapentin (Gabapentin 400 Mg Capsule) 800 mg PO BID [facility] Last Admin: 11/29/24 08:29 Dose: 800 mg Documented By: RUFUS Glucose (Glucose Gel 15 Gm Gel..Gram.) 15 gm PO Q15M PRN; Protocol PRN Reason: per Hypoglycemia Standing Ord. Guaifenesin (Guaifenesin 100 Mg/5 Ml 5 Ml Liquid) 5 ml PO Q4H PRN PRN Reason: Cough Last Admin: 11/28/24 21:16 Dose: 5 ml Documented By: BAUTISTA Comments: requested for cough Heparin Sodium (Porcine) (Heparin Sodium,Porcine 5,000 Unit/Ml Vial) 4,500 unit 40 unit/kg (4500 unit) IVPUSH PROTOCOL BOLUS PRN; Protocol PRN Reason: 40 unit/kg - Heparin Protocol Heparin Sodium (Porcine) (Heparin Sodium,Porcine 5,000 Unit/Ml Vial) 9,100 unit 80 unit/kg (9100 unit) IVPUSH PROTOCOL BOLUS PRN; Protocol PRN Reason: 80 unit/kg - Heparin Protocol Dextrose (D10) 250 mls @ 750 mls/hr IV Q15M PRN; Protocol PRN Reason: per Hypoglycemia Standing Ord. Heparin Sodium/Sodium Chloride (Heparin Sodium,Porcine/1/2ns) 25,000 unit in 250 mls @ 0 mls/hr IVCONT .Q0M [facility]; Protocol Last Titration: 11/29/24 04:35 Dose: 6.94 units/kg/hr, 7.77 mls/hr Documented By: BAUTISTA Co-signed By: ZULEYMA Bumetanide 25 mg/ IV (Miscellaneous Supplies) 100 mls @ 1 mls/hr IVCONT .Q24H [facility] Last Admin: 11/29/24 08:53 Dose: 0.25 mg/hr, 1 mls/hr Documented By: RUFUS Insulin Human Lispro (Insulin Lispro 100 Unit/Ml 3 Ml Vial) 0 unit SUBCUT QIDACHS [facility]; Protocol Last Admin: 11/29/24 08:32 Dose: 2 unit Documented By: RUFUS Loratadine (Loratadine 10 Mg Tablet) 10 mg PO DAILY [facility] Last Admin: 11/29/24 08:31 Dose: 10 mg Documented By: RUFUS Magnesium Hydroxide (Milk Of Magnesia 30 Ml Oral.Susp) 30 ml PO DAILY PRN PRN Reason: Constipation Magnesium Oxide (Magnesium Oxide 400 Mg Tablet) 200 mg PO DAILY [facility] Last Admin: 11/29/24 08:30 Dose: 200 mg Documented By: RUFUS Melatonin (Melatonin 3 Mg Tablet) 6 mg PO BEDTIME PRN PRN Reason: Insomnia Memantine (Memantine Hcl 10 Mg Tablet) 10 mg PO BID [facility] Last Admin: 11/29/24 08:31 Dose: 10 mg Documented By: RUFUS Metoprolol Tartrate (Metoprolol Tartrate 100 Mg Tablet) 100 mg PO BID [facility]; Protocol Last Admin: 11/29/24 08:31 Dose: 100 mg Documented By: RUFUS Multivitamins/Vitamin C (Multivitamin Tablet) 1 tab PO DAILY [facility] Last Admin: 11/29/24 08:31 Dose: 1 tab Documented By: RUFUS Nitroglycerin (Nitroglycerin 2 % Oint 1 Gm Packet) 1 inch TRANSDERMA RQ6H WHILE AWAKE [facility] Last Admin: 11/29/24 08:32 Dose: 1 inch Documented By: RUFUS Pt Own (Insulin Asp Prt-Insulin Aspart [ Novolog Mix 70-30 U- 100 Insuln] 30 - 76 unit SUBCUT BIDWM [facility] Last Admin: 11/29/24 08:32 Dose: 60 unit Documented By: RUFUS Comments: poc= 185 Omeprazole (Omeprazole 20 Mg Capsule.) 20 mg PO BID@0630,1630 [facility] Last Admin: 11/29/24 08:29 Dose: 20 mg Documented By: RUFUS Ondansetron HCl (Ondansetron Hcl 4 Mg/2 Ml Vial) 4 mg IVPUSH Q8H PRN PRN Reason: Nausea and Vomiting Sodium Chloride (0.9 % Sodium Chloride Flush 3 Ml Syringe) 3 ml IVFLUSH QSHIFT [facility] Last Admin: 11/29/24 08:33 Dose: 3 ml Documented By: RUFUS Sucralfate (Sucralfate 1 Gm Tablet) 1 gm PO TIDAC [facility] Last Admin: 11/29/24 08:30 Dose: 1 gm Documented By: RUFUS Labs 11/28/24 09:17 11/28/24 09:18 Labs: Laboratory Results - last 24 hr 11/28/24 11/28/24 11/28/24 10:53 11:16 11:48 aPTT Heparin Protocol 34.4 L POC Glucose 166 H Lactic Acid F/U @ 2Hr 1.9 11/28/24 11/28/24 11/28/24 15:09 16:57 18:23 aPTT Heparin Protocol 63.4 D POC Glucose 75 111 Lactic Acid F/U @ 2Hr 11/28/24 11/29/24 11/29/24 20:59 03:29 07:22 aPTT Heparin Protocol 81.3 H D POC Glucose 140 H 185 H Lactic Acid F/U @ 2Hr Assessment and Plan (1) Respiratory syncytial virus (RSV): Status: Acute Plan A 79-year-old male with a history of CAD, DM, Alzheimer's dementia, HLD, CKD stage 3, and chronic AFib presents with a cough and chest discomfort but no fever. CXR is unremarkable, and RSV testing is positive. Oxygen saturation is 95?98% on room air but drops to 87% with ambulation, causing the patient to become winded. Patient was admitted for management for RSV with hypoxia and has have ups and dows but overall was progressing until the morning of 11/28/24 when became acutely more short of breath with significantly hypoxia in into 80s and work up now showing acute NSTEMI, and heart failure. Acute NSTEMI likely ischemic with multiple comorbidities including dementia, CKD, diabetes -continue IV heparin for 48 hrs, holding ASA for now. Continue metoprololol, and statin -cardiology has discussed treatment option with the family and given multiple comorbidities, likely not candidate for intervention and therefore medical management, family (son) agrees Heart failure--echo--1. Severely reduced LV ejection fraction 20-25% with wall motion abnormality in multiple coronary distribution, could represent stress-induced cardiomyopathy -monitor I/O, electrolytes and BMP -Continue IV Bumex, change to drip -consider LEI CKD/cardiorenal syndorme -Nephrology consult -monitor BMP RSV, -conservative management -hold IV steroid due to tendency for hyperglycemia -updraft PRN -robitussin for cough -O2 PRN Elevated WBC d/t steroid Acute lactic acidosis--not due to sepsis, rather d/t hypoxia for heart failure and NSTEMI Diabetes with hyperglycemia, blood sugars are much better -continue home Novolog 70/30 bid, dose adjusted per sugar level -sliding with admelo Chronic afib, rate controlled on metoprolol -continue, restart eliquis when off heparin GERD PPI Dementia, continue Memantine and Donezepil DVT prophylaxis, eliquis/hparin Full code, will discuss goals of care with family Quality Stroke Does the patient have a stroke diagnosis?: No VTE Prior VTE?: No VTE Risk Level:: Medical - moderate - high VTE Device Contraindication: N/A - Device Ordered VTE Drug Contraindication: N/A - Med Ordered
[2024-11-29 11:41] LABS: Hematocrit 37.2 % (42.0-52.0); Mean Corpuscular HGB Conc 32.3 g/dl (31.0-36.0); Mean Corpuscular Hemoglobin 30.3 pg (27.0-33.0); Mean Corpuscular Volume 93.9 fL (80.0-98.0); PLT CLUMP 1; Red Blood Count 3.96 X10*6/uL (4.60-5.80); Red Cell Distribution Width 16.3 % (11.0-16.0)
[2024-11-29 11:42] LABS: Glucose, Whole Blood 240 mg/dL (60-115)
[2024-11-29 11:46] LABS: PTT Heparin Drip 53.3 SEC (53-77.9)
[2024-11-29 11:53] LABS: B Type Natriuretic Peptide 548 pg/mL (<100)
[2024-11-29] MEDS: Heparin Sodium,Porcine/1/2NS 25,000 UNIT/250 ML IV.SOLN 7.77 UNIT IVCONT (12:03)
[2024-11-29 12:15] LABS: Anion Gap 16 (12-20); Blood Urea Nitrogen 38 mg/dL (9-16); Calcium 8.4 mg/dL (8.4-10.2); Carbon Dioxide 28 mmol/L (22-29); Chloride 97 mmol/L (96-108); Creatinine Clr Calc Pharmacy 39.2; Estimated Glomerular Filt Rate 34; Glucose Random 249 mg/dL (60-115); Potassium 4.6 mmol/L (3.3-5.1); Sodium 136 mmol/L (135-145)
[2024-11-29] MEDS: guaiFENesin 100 MG/5 ML 5 ML LIQUID PO ×3 (12:21→23:00)
[2024-11-29 12:30] LABS: Troponin-I High Sensitivity 790.1 ng/L (<3.5-35.0)
[2024-11-29] MEDS: Aspirin 81 MG TAB.CHEW PO (13:16)
[2024-11-29 13:20] LABS: Mean Platelet Volume 12.8 fL (9.4-12.4); Platelet Count 143 X10*3/uL (160-400); White Blood Count 6.7 X10*3/uL (4.8-10.8)
--- NOTE | 2024-11-29 13:39 | PM.PNCARD ---
Subjective Subjective Date of Service: 11/29/24 Principal diagnosis: Acute hypoxemic respiratory failure, CHF. Interval history: Echocardiogram assess shows severe LV systolic dysfunction with wall motion abnormality which could represent ischemic versus takotsubo cardiomyopathy. Clinically much improved after diuresis. Intake and output chart is not accurately do noted. Patient denies any chest pain or shortness of breath although history is limited. Review of Systems Review of Systems Yes Unobtainable due to mental status Physical Exam Vital Signs: Last Vital Signs Temp 97.1 F 11/29/24 12:00 Pulse 81 11/29/24 13:16 Resp 16 11/29/24 12:00 BP 116/69 11/29/24 13:16 Pulse Ox 97 11/29/24 12:00 O2 Del Method CPAP 11/29/24 12:00 O2 Flow Rate 3 11/29/24 00:00 FiO2 40 11/29/24 01:20 BMI result Body Mass Index 34.4 Const General: cooperative, comfortable, alert, awake and in distress mild and respiratory Nutritional Appearance: obese Neck Neck: Yes trachea midline, Yes supple and Yes JVD Resp Effort & Inspection: normal respiratory effort Auscultation: crackles bilateral at the base and no wheezes Cardio Rate: regular rate Rhythm: abnormal rhythm irregularly irregular Heart sounds: S1 normal heart sound present, S2 normal heart sound present, no click, no gallops and no murmurs GI Auscultation: normal bowel sounds Skin General skin exam: no rashes or lesions noted Neuro General: moves all extremities Extrem General: No clubbing, No cyanosis and Yes edema Objective Labs and Meds 11/29/24 10:48 11/29/24 11:41 Lab results: Laboratory Results - last 24 hr 11/28/24 11/28/24 11/28/24 15:09 16:57 18:23 WBC RBC Hgb Hct MCV MCH MCHC RDW Plt Count MPV Absolute Nucleated RBC Nucleated RBC % (auto) Hold Purple Top aPTT Heparin Protocol 63.4 D Hold Blue Top Sodium Potassium Chloride Carbon Dioxide Anion Gap BUN Creatinine Estim Creat Clear Calc Estimated GFR POC Glucose 75 111 Random Glucose Calcium Troponin I High Sens B-Natriuretic Peptide 11/28/24 11/29/24 11/29/24 20:59 03:29 07:22 WBC RBC Hgb Hct MCV MCH MCHC RDW Plt Count MPV Absolute Nucleated RBC Nucleated RBC % (auto) Hold Purple Top aPTT Heparin Protocol 81.3 H D Hold Blue Top Sodium Potassium Chloride Carbon Dioxide Anion Gap BUN Creatinine Estim Creat Clear Calc Estimated GFR POC Glucose 140 H 185 H Random Glucose Calcium Troponin I High Sens B-Natriuretic Peptide 11/29/24 11/29/24 11/29/24 10:48 11:26 11:41 WBC 6.7 RBC 3.96 L Hgb 12.0 L Hct 37.2 L MCV 93.9 MCH 30.3 MCHC 32.3 RDW 16.3 H Plt Count 143 L MPV 12.8 H Absolute Nucleated RBC 0.000 Nucleated RBC % (auto) 0.0 Hold Purple Top SEE NOTE aPTT Heparin Protocol 53.3 D Hold Blue Top SEE NOTE Sodium 136 Potassium 4.6 Chloride 97 Carbon Dioxide 28 Anion Gap 16 BUN 38 H Creatinine 1.94 H Estim Creat Clear Calc 39.2 Estimated GFR 34 POC Glucose 240 H Random Glucose 249 H Calcium 8.4 Troponin I High Sens 790.1 H* B-Natriuretic Peptide 548 H Progress Note: A&P Assessment and plan (1) Acute respiratory failure: Status: Acute Assessment and Plan: Acute hypoxemic respiratory failure most likely due to acute congestive heart failure with markedly reduced LV ejection fraction which appears to be more subacute to acute, possibly ischemic versus takotsubo cardiomyopathy related to his recent viral illness. Viral cardiomyopathy is less likely. Likely that this will need to be manage conservatively. Discussed with the family given his multiple comorbidities including advanced age but more likely severe cognitive dysfunction as well as renal dysfunction. Continue nitrates for now. Continue IV diuresis. Strict intake and output chart needs to be pursued. Continue monitor renal function as well as check BNP tomorrow. Continue IV heparin for 1 more day then eventually transition him to Eliquis for his atrial fibrillation. Low-dose aspirin. Continue high-intensity statin therapy. Continue metoprolol therapy. Continue supportive care with oxygen therapy. Will follow with you Time Spent With Patient Time: Total time managing care of this patient today ____ minutes. Progress Note: Quality Stroke Does the patient have a stroke diagnosis?: No Procedures Date of Service Date of Service: 11/29/24
[2024-11-29 17:00] LABS: Glucose, Whole Blood 351 mg/dL (60-115)
[2024-11-29 18:27] LABS: PTT Heparin Drip 61.4 SEC (53-77.9)
[2024-11-29 21:04] LABS: Glucose, Whole Blood 226 mg/dL (60-115)
[2024-11-29] MEDS: Donepezil HCl 10 MG TABLET PO (22:00)
[2024-11-29] MEDS: Atorvastatin Calcium 40 MG TABLET PO (22:00)
[2024-11-30] VITALS (10 sets, daily range): BP systolic 122–144; BP diastolic 67–84; PULSE 72–90; RESP 15–22; TEMP 36.3–36.6; O2SAT 94–98
[2024-11-30] MEDS: guaiFENesin 100 MG/5 ML 5 ML LIQUID PO ×4 (05:13→22:13)
[2024-11-30] MEDS: Omeprazole 20 MG CAPSULE.DR PO ×2 (05:13→17:10)
[2024-11-30 06:26] LABS: Hematocrit 35.9 % (42.0-52.0); Mean Corpuscular HGB Conc 33.4 g/dl (31.0-36.0); Mean Corpuscular Hemoglobin 30.7 pg (27.0-33.0); Mean Corpuscular Volume 91.8 fL (80.0-98.0); Mean Platelet Volume 11.6 fL (9.4-12.4); Platelet Count 152 X10*3/uL (160-400); Red Blood Count 3.91 X10*6/uL (4.60-5.80); Red Cell Distribution Width 15.9 % (11.0-16.0); White Blood Count 7.4 X10*3/uL (4.8-10.8)
[2024-11-30 06:35] LABS: PTT Heparin Drip 60.9 SEC (53-77.9)
[2024-11-30 06:41] LABS: Anion Gap 13 (12-20); Blood Urea Nitrogen 39 mg/dL (9-16); Calcium 8.4 mg/dL (8.4-10.2); Carbon Dioxide 32 mmol/L (22-29); Chloride 96 mmol/L (96-108); Estimated Glomerular Filt Rate 36; Glucose Random 184 mg/dL (60-115); Potassium 4.1 mmol/L (3.3-5.1); Sodium 137 mmol/L (135-145)
[2024-11-30 07:30] LABS: Glucose, Whole Blood 184 mg/dL (60-115)
[2024-11-30] MEDS: Albuterol/Iprat 2.5/0.5MG 3 ML AMPUL.NEB INHALE ×3 (07:47→15:09)
[2024-11-30] MEDS: 0.9 % Sodium Chloride Flush 3 ML SYRINGE IVFLUSH ×3 (08:24→22:13)
[2024-11-30] MEDS: Loratadine 10 MG TABLET PO (08:25)
[2024-11-30] MEDS: Magnesium Oxide 400 MG TABLET 200 MG PO (08:25)
[2024-11-30] MEDS: Aspirin 81 MG TAB.CHEW PO (08:25)
[2024-11-30] MEDS: amLODIPine Besylate 5 MG TABLET PO (08:25)
[2024-11-30] MEDS: Memantine HCl 10 MG TABLET PO ×2 (08:25→22:12)
[2024-11-30] MEDS: Gabapentin 400 MG CAPSULE 800 MG PO ×2 (08:25→22:12)
[2024-11-30] MEDS: allopurinoL 100 MG TABLET 50 MG PO (08:25)
[2024-11-30] MEDS: Metoprolol Tartrate 100 MG TABLET PO ×2 (08:25→22:13)
[2024-11-30] MEDS: Multivitamin TABLET 1 TAB PO (08:25)
[2024-11-30] MEDS: Sucralfate 1 GM TABLET PO ×3 (08:25→17:10)
[2024-11-30] MEDS: Nitroglycerin 2 % Oint 1 GM Packet 1 INCH TRANSDERMA (08:26)
[2024-11-30] MEDS: Bumetanide 25 MG in Container,Empty 0 ML IVCONT (08:27)
[2024-11-30] MEDS: Insulin Lispro 100 UNIT/ML 3 ML VIAL SUBCUT ×4 (08:28→22:12)
--- NOTE | 2024-11-30 10:40 | PM.PNCARD ---
Subjective Subjective Date of Service: 11/30/24 Principal diagnosis: Acute hypoxemic respiratory failure, CHF. Interval history: Patient was diuresed well. Doing well. Creatinine is improved. He says he feels better with the shortness of breath. Continues to have cough. Leg edema is improved. Review of Systems Constitutional: Reports no additional constitutional complaints Cardiovascular: Denies chest pain, Denies rapid heart rate, Denies palpitations, Reports dyspnea and Denies orthopnea Respiratory: Reports cough, Reports dyspnea and Reports wheezing Gastrointestinal: Reports no additional gastrointestinal complaints Reports system reviewed and no additional complaints, except as documented Endocrine: Denies palpitations Allergic/Immunologic: Reports wheezing Physical Exam Vital Signs: Last Vital Signs Temp 97.7 F 11/30/24 08:00 Pulse 84 11/30/24 08:00 Resp 22 H 11/30/24 08:00 BP 144/84 H 11/30/24 08:00 Pulse Ox 95 11/30/24 08:00 O2 Del Method Nasal Cannula 11/30/24 08:00 O2 Flow Rate 3 11/30/24 08:00 FiO2 40 11/29/24 01:20 BMI result Body Mass Index 34.4 Const General: cooperative, comfortable, alert, awake and in distress mild and respiratory Nutritional Appearance: obese Neck Neck: Yes trachea midline, Yes supple and Yes JVD Resp Effort & Inspection: normal respiratory effort Auscultation: crackles bilateral at the base and no wheezes Cardio Rate: regular rate Rhythm: abnormal rhythm irregularly irregular Heart sounds: S1 normal heart sound present, S2 normal heart sound present, no click, no gallops and no murmurs GI Auscultation: normal bowel sounds Skin General skin exam: no rashes or lesions noted Neuro General: moves all extremities Extrem General: No clubbing, No cyanosis and Yes edema (Improving) Objective Labs and Meds 11/30/24 06:15 11/30/24 06:15 Lab results: Laboratory Results - last 24 hr 11/29/24 11/29/24 11/29/24 10:48 11:26 11:41 WBC 6.7 RBC 3.96 L Hgb 12.0 L Hct 37.2 L MCV 93.9 MCH 30.3 MCHC 32.3 RDW 16.3 H Plt Count 143 L MPV 12.8 H Absolute Nucleated RBC 0.000 Nucleated RBC % (auto) 0.0 Hold Purple Top SEE NOTE aPTT Heparin Protocol 53.3 D Hold Blue Top SEE NOTE Sodium 136 Potassium 4.6 Chloride 97 Carbon Dioxide 28 Anion Gap 16 BUN 38 H Creatinine 1.94 H Estim Creat Clear Calc 39.2 Estimated GFR 34 POC Glucose 240 H Random Glucose 249 H Calcium 8.4 Troponin I High Sens 790.1 H* B-Natriuretic Peptide 548 H 11/29/24 11/29/24 11/29/24 16:49 18:05 20:59 WBC RBC Hgb Hct MCV MCH MCHC RDW Plt Count MPV Absolute Nucleated RBC Nucleated RBC % (auto) Hold Purple Top aPTT Heparin Protocol 61.4 Hold Blue Top Sodium Potassium Chloride Carbon Dioxide Anion Gap BUN Creatinine Estim Creat Clear Calc Estimated GFR POC Glucose 351 H* 226 H Random Glucose Calcium Troponin I High Sens B-Natriuretic Peptide 11/30/24 11/30/24 06:15 07:25 WBC 7.4 RBC 3.91 L Hgb 12.0 L Hct 35.9 L MCV 91.8 MCH 30.7 MCHC 33.4 RDW 15.9 Plt Count 152 L MPV 11.6 Absolute Nucleated RBC 0.000 Nucleated RBC % (auto) 0.0 Hold Purple Top aPTT Heparin Protocol 60.9 Hold Blue Top Sodium 137 Potassium 4.1 Chloride 96 Carbon Dioxide 32 H Anion Gap 13 BUN 39 H Creatinine 1.81 H Estim Creat Clear Calc 42.0 Estimated GFR 36 POC Glucose 184 H Random Glucose 184 H Calcium 8.4 Troponin I High Sens B-Natriuretic Peptide Progress Note: A&P Assessment and plan (1) Acute decompensated heart failure: Status: Acute Assessment and Plan: Acute decompensated congestive heart failure with acute significant LV systolic dysfunction in the pattern suggestive of stress-induced cardiomyopathy although underlying coronary artery disease can not be entirely ruled out. Given his multiple comorbidities will continue to pursue conservative management was discussed in details with the family. For now will continue metoprolol for neurohormonal modulation. Switch to Imdur 60 mg. Discussed with Nephrology if he can be started on angiotensin receptor gabriela if not would switch him to hydralazine therapy and gradually discontinue amlodipine therapy. Continue IV diuresis for 1 more day. Continue supportive care for COPD with bronchodilators consider Xopenex. Continue oxygen therapy. Supportive care. Management was discussed with hospitalist team. Please check BMP and BNP tomorrow and replace electrolytes as needed. Heparin can be discontinued switch to oral Eliquis therapy. Low-dose aspirin and high-intensity statin therapy to be pursued (2) Chronic atrial fibrillation: Status: Acute Assessment and Plan: Chronic atrial fibrillation, currently rate controlled. Continue metoprolol therapy. This point time continue full oral anticoagulation with Eliquis. Will sign of the case, follow-up as need be. Thank you for allowing me to partake in his care Time Spent With Patient Time: Total time managing care of this patient today ____ minutes. Progress Note: Quality Stroke Does the patient have a stroke diagnosis?: No Procedures Date of Service Date of Service: 11/30/24
[2024-11-30] MEDS: Isosorbide Mononitrate 30 MG TAB.ER.24H PO (11:14)
[2024-11-30 11:34] LABS: B Type Natriuretic Peptide 525 pg/mL (<100)
[2024-11-30 11:34] LABS: Glucose, Whole Blood 196 mg/dL (60-115)
--- NOTE | 2024-11-30 11:41 | HO.PM.IMPN ---
Subjective Subjective Date of Service: 11/30/24 Interval History: F/u on acute NSTEMI and heart failure. He was admitted for RSV relaed dyspnea, and during hospitalization has developped acute HI complicated by heart failure, acute hypoxic respiratory failure necessitating BiPAP and CPAP. He is now doing well, diuresing well with Bumex drip respiratory status if much better Physical Exam Vital Signs: Vital Signs: Last Vital Signs Temp 97.6 F 11/30/24 11:19 Pulse 75 11/30/24 11:19 Resp 17 11/30/24 11:19 BP 122/79 11/30/24 11:19 Pulse Ox 98 11/30/24 11:19 O2 Del Method Nasal Cannula 11/30/24 11:19 O2 Flow Rate 3 11/30/24 11:19 FiO2 40 11/29/24 01:20 BMI result Body Mass Index 34.4 Const: Other: General: AO X 3, no acute distress Resp: CTA bilateral CVS: S1,S2, iregular iregular. 2 + pedal edema GI: +BS, NT, no distention Skin: No rash Neuro: motor grossly intact Psych: appropriate affect Objective Data Active Medications Acetaminophen (Acetaminophen 325 Mg Tablet) 650 mg PO Q6H PRN PRN Reason: Pain, Mild 1-3,fever,headache Last Admin: 11/28/24 13:25 Dose: 650 mg Documented By: RUFUS Albuterol/Ipratropium (Albuterol/Iprat 2.5/0.5mg 3 Ml Ampul.Neb) 3 ml INHALE RQ4H WHILE AWAKE [facility] Last Admin: 11/30/24 11:10 Dose: 3 ml Documented By: NIC Albuterol/Ipratropium (Albuterol/Iprat 2.5/0.5mg 3 Ml Ampul.Neb) 3 ml INHALE Q4H PRN PRN Reason: Wheezing Last Admin: 11/28/24 22:11 Dose: 3 ml Documented By: NANCY Allopurinol (Allopurinol 100 Mg Tablet) 50 mg PO DAILY [facility] Last Admin: 11/30/24 08:25 Dose: 50 mg Documented By: RUFUS Amlodipine Besylate (Amlodipine Besylate 5 Mg Tablet) 5 mg PO DAILY [facility]; Protocol Last Admin: 11/30/24 08:25 Dose: 5 mg Documented By: RUFUS Aspirin (Aspirin 81 Mg Tab.Chew) 81 mg PO DAILY [facility] Last Admin: 11/30/24 08:25 Dose: 81 mg Documented By: RUFUS Atorvastatin Calcium (Atorvastatin Calcium 40 Mg Tablet) 40 mg PO BEDTIME [facility] Last Admin: 11/29/24 22:00 Dose: 40 mg Documented By: BAUTISTA Calcium Carbonate (Calcium Carbonate 750 Mg Tab.Chew) 750 mg PO Q4H PRN PRN Reason: Heartburn Donepezil HCl (Donepezil Hcl 10 Mg Tablet) 10 mg PO BEDTIME [facility] Last Admin: 11/29/24 22:00 Dose: 10 mg Documented By: BAUTISTA Gabapentin (Gabapentin 400 Mg Capsule) 800 mg PO BID [facility] Last Admin: 11/30/24 08:25 Dose: 800 mg Documented By: RUFUS Glucose (Glucose Gel 15 Gm Gel..Gram.) 15 gm PO Q15M PRN; Protocol PRN Reason: per Hypoglycemia Standing Ord. Guaifenesin (Guaifenesin 100 Mg/5 Ml 5 Ml Liquid) 5 ml PO Q4H PRN PRN Reason: Cough Last Admin: 11/30/24 08:24 Dose: 5 ml Documented By: RUFUS Dextrose (D10) 250 mls @ 750 mls/hr IV Q15M PRN; Protocol PRN Reason: per Hypoglycemia Standing Ord. Bumetanide 25 mg/ IV (Miscellaneous Supplies) 100 mls @ 1 mls/hr IVCONT .Q24H [facility] Last Admin: 11/30/24 08:27 Dose: 0.25 mg/hr, 1 mls/hr Documented By: RUFUS Insulin Human Lispro (Insulin Lispro 100 Unit/Ml 3 Ml Vial) 0 unit SUBCUT QIDACHS [facility]; Protocol Last Admin: 11/30/24 11:25 Dose: 2 unit Documented By: RUFUS Comments: poc= 196 Isosorbide Mononitrate (Isosorbide Mononitrate 30 Mg Tab.Er.24h) 30 mg PO DAILY [facility]; Protocol Last Admin: 11/30/24 11:14 Dose: 30 mg Documented By: RUFUS Loratadine (Loratadine 10 Mg Tablet) 10 mg PO DAILY [facility] Last Admin: 11/30/24 08:25 Dose: 10 mg Documented By: RUFUS Magnesium Hydroxide (Milk Of Magnesia 30 Ml Oral.Susp) 30 ml PO DAILY PRN PRN Reason: Constipation Magnesium Oxide (Magnesium Oxide 400 Mg Tablet) 200 mg PO DAILY [facility] Last Admin: 11/30/24 08:25 Dose: 200 mg Documented By: RUFUS Melatonin (Melatonin 3 Mg Tablet) 6 mg PO BEDTIME PRN PRN Reason: Insomnia Memantine (Memantine Hcl 10 Mg Tablet) 10 mg PO BID [facility] Last Admin: 11/30/24 08:25 Dose: 10 mg Documented By: RUFUS Metoprolol Tartrate (Metoprolol Tartrate 100 Mg Tablet) 100 mg PO BID [facility]; Protocol Last Admin: 11/30/24 08:25 Dose: 100 mg Documented By: RUFUS Multivitamins/Vitamin C (Multivitamin Tablet) 1 tab PO DAILY [facility] Last Admin: 11/30/24 08:25 Dose: 1 tab Documented By: RUFUS Pt Own (Insulin Asp Prt-Insulin Aspart [ Novolog Mix 70-30 U- 100 Insuln] 30 - 76 unit SUBCUT BIDWM [facility] Last Admin: 11/30/24 08:29 Dose: 60 unit Documented By: RUFUS Comments: poc= 184 Omeprazole (Omeprazole 20 Mg Capsule.) 20 mg PO BID@0630,1630 [facility] Last Admin: 11/30/24 05:13 Dose: 20 mg Documented By: BAUTISTA Ondansetron HCl (Ondansetron Hcl 4 Mg/2 Ml Vial) 4 mg IVPUSH Q8H PRN PRN Reason: Nausea and Vomiting Sodium Chloride (0.9 % Sodium Chloride Flush 3 Ml Syringe) 3 ml IVFLUSH QSHIFT [facility] Last Admin: 11/30/24 08:24 Dose: 3 ml Documented By: RUFUS Sucralfate (Sucralfate 1 Gm Tablet) 1 gm PO TIDAC [facility] Last Admin: 11/30/24 11:14 Dose: 1 gm Documented By: RUFUS Labs 11/30/24 06:15 11/30/24 06:15 Labs: Laboratory Results - last 24 hr 11/29/24 11/29/24 11/29/24 10:48 11:26 11:41 MCV 93.9 MCH 30.3 MCHC 32.3 RDW 16.3 H Plt Count 143 L MPV 12.8 H Absolute Nucleated RBC 0.000 Nucleated RBC % (auto) 0.0 Hold Purple Top SEE NOTE aPTT Heparin Protocol 53.3 D Hold Blue Top SEE NOTE Anion Gap 16 Estim Creat Clear Calc 39.2 Estimated GFR 34 POC Glucose 240 H Random Glucose 249 H Calcium 8.4 Troponin I High Sens 790.1 H* B-Natriuretic Peptide 548 H 11/29/24 11/29/24 11/29/24 16:49 18:05 20:59 MCV MCH MCHC RDW Plt Count MPV Absolute Nucleated RBC Nucleated RBC % (auto) Hold Purple Top aPTT Heparin Protocol 61.4 Hold Blue Top Anion Gap Estim Creat Clear Calc Estimated GFR POC Glucose 351 H* 226 H Random Glucose Calcium Troponin I High Sens B-Natriuretic Peptide 11/30/24 11/30/24 11/30/24 06:15 07:25 11:08 MCV 91.8 MCH 30.7 MCHC 33.4 RDW 15.9 Plt Count 152 L MPV 11.6 Absolute Nucleated RBC 0.000 Nucleated RBC % (auto) 0.0 Hold Purple Top aPTT Heparin Protocol 60.9 Hold Blue Top Anion Gap 13 Estim Creat Clear Calc 42.0 Estimated GFR 36 POC Glucose 184 H Random Glucose 184 H Calcium 8.4 Troponin I High Sens B-Natriuretic Peptide 525 H 11/30/24 11:21 MCV MCH MCHC RDW Plt Count MPV Absolute Nucleated RBC Nucleated RBC % (auto) Hold Purple Top aPTT Heparin Protocol Hold Blue Top Anion Gap Estim Creat Clear Calc Estimated GFR POC Glucose 196 H Random Glucose Calcium Troponin I High Sens B-Natriuretic Peptide Microbiology Microbiology Results: Microbiology 11/28/24 09:18 Blood Culture - Preliminary Blood - Venous No growth after 24 hours. 11/28/24 09:17 Blood Culture - Preliminary Blood - Venous No growth after 24 hours. Assessment and Plan (1) Respiratory syncytial virus (RSV): Status: Acute Plan A 79-year-old male with a history of CAD, DM, Alzheimer's dementia, HLD, CKD stage 3, and chronic AFib presents with a cough and chest discomfort but no fever. CXR is unremarkable, and RSV testing is positive. Oxygen saturation is 95?98% on room air but drops to 87% with ambulation, causing the patient to become winded. Patient was admitted for management for RSV with hypoxia and has have ups and dows but overall was progressing until the morning of 11/28/24 when became acutely more short of breath with significantly hypoxia in into 80s and work up now showing acute NSTEMI, and heart failure. Acute NSTEMI likely ischemic with multiple comorbidities including dementia, CKD, diabetes -completed IV heparin for 48 hrs, continue ASA, metoprololol, and statin -cardiology has discussed treatment option with the family and given multiple comorbidities, likely not candidate for intervention and therefore medical management, family (son) agrees Heart failure--echo--1. Severely reduced LV ejection fraction 20-25% with wall motion abnormality in multiple coronary distribution, could represent stress-induced cardiomyopathy -monitor I/O, electrolytes and BMP -Continue IV Bumex drip -following I/O, bmp and BNP -Bragg for acute I/O and large urine retention CKD/cardiorenal syndorme -Nephrology consult -monitor BMP -Per Nephro--hold LEI/ARB for now RSV, -conservative management -hold IV steroid due to tendency for hyperglycemia -updraft PRN -robitussin for cough -O2 PRN Elevated WBC d/t steroid Acute lactic acidosis--not due to sepsis, rather d/t hypoxia for heart failure and NSTEMI Diabetes with hyperglycemia, blood sugars are much better -continue home Novolog 70/30 bid, dose adjusted per sugar level -sliding with admelo Chronic afib, rate controlled on metoprolol -continue, restart eliquis when off heparin GERD PPI Dementia, continue Memantine and Donezepil DVT prophylaxis, eliquis/hparin Full code, will discuss goals of care with family Quality Stroke Does the patient have a stroke diagnosis?: No VTE Prior VTE?: No VTE Risk Level:: Medical - moderate - high VTE Device Contraindication: N/A - Device Ordered VTE Drug Contraindication: N/A - Med Ordered
[2024-11-30] MEDS: Apixaban 5 MG TABLET PO ×2 (12:09→22:12)
[2024-11-30 16:33] LABS: Glucose, Whole Blood 220 mg/dL (60-115)
[2024-11-30 20:39] LABS: Glucose, Whole Blood 192 mg/dL (60-115)
[2024-11-30] MEDS: Melatonin 3 MG TABLET 6 MG PO (22:11)
[2024-11-30] MEDS: Donepezil HCl 10 MG TABLET PO (22:12)
[2024-11-30] MEDS: Atorvastatin Calcium 40 MG TABLET PO (22:12)
[2024-12-01] VITALS (12 sets, daily range): BP systolic 128–148; BP diastolic 69–88; PULSE 70–96; RESP 18–20; TEMP 36.1–37; O2SAT 93–98
[2024-12-01] MEDS: Omeprazole 20 MG CAPSULE.DR PO ×2 (06:31→17:23)
[2024-12-01 06:57] LABS: Glucose, Whole Blood 101 mg/dL (60-115)
[2024-12-01] MEDS: Albuterol/Iprat 2.5/0.5MG 3 ML AMPUL.NEB INHALE ×4 (07:10→21:38)
[2024-12-01 07:15] LABS: Hematocrit 39.2 % (42.0-52.0); Hemoglobin 12.7 g/dl (14.0-18.0); Mean Corpuscular HGB Conc 32.4 g/dl (31.0-36.0); Mean Corpuscular Hemoglobin 29.9 pg (27.0-33.0); Mean Corpuscular Volume 92.2 fL (80.0-98.0); Mean Platelet Volume 11.6 fL (9.4-12.4); Platelet Count 169 X10*3/uL (160-400); Red Blood Count 4.25 X10*6/uL (4.60-5.80); Red Cell Distribution Width 15.7 % (11.0-16.0); White Blood Count 7.4 X10*3/uL (4.8-10.8)
[2024-12-01 07:24] LABS: PTT Heparin Drip 35.1 SEC (53-77.9)
[2024-12-01 07:29] LABS: Anion Gap 14 (12-20); Blood Urea Nitrogen 42 mg/dL (9-16); Calcium 9.1 mg/dL (8.4-10.2); Carbon Dioxide 34 mmol/L (22-29); Chloride 95 mmol/L (96-108); Creatinine Clr Calc Pharmacy 36.8; Estimated Glomerular Filt Rate 31; Glucose Random 108 mg/dL (60-115); Potassium 4.2 mmol/L (3.3-5.1); Sodium 139 mmol/L (135-145)
[2024-12-01] MEDS: Isosorbide Mononitrate 30 MG TAB.ER.24H PO (08:04)
[2024-12-01] MEDS: guaiFENesin 100 MG/5 ML 5 ML LIQUID PO ×2 (08:04→17:23)
[2024-12-01] MEDS: allopurinoL 100 MG TABLET 50 MG PO (08:05)
[2024-12-01] MEDS: Apixaban 5 MG TABLET PO ×2 (08:05→20:23)
[2024-12-01] MEDS: Sucralfate 1 GM TABLET PO ×3 (08:05→17:23)
[2024-12-01] MEDS: Multivitamin TABLET 1 TAB PO (08:05)
[2024-12-01] MEDS: Loratadine 10 MG TABLET PO (08:05)
[2024-12-01] MEDS: Aspirin 81 MG TAB.CHEW PO (08:05)
[2024-12-01] MEDS: Magnesium Oxide 400 MG TABLET 200 MG PO (08:05)
[2024-12-01] MEDS: amLODIPine Besylate 5 MG TABLET PO (08:05)
[2024-12-01] MEDS: Gabapentin 400 MG CAPSULE 800 MG PO ×2 (08:05→20:23)
[2024-12-01] MEDS: Memantine HCl 10 MG TABLET PO ×2 (08:05→20:22)
[2024-12-01] MEDS: 0.9 % Sodium Chloride Flush 3 ML SYRINGE IVFLUSH ×3 (08:06→20:23)
[2024-12-01] MEDS: Metoprolol Tartrate 100 MG TABLET PO ×2 (08:06→20:23)
--- NOTE | 2024-12-01 08:56 | P.PNNP_ITS ---
Subjective Subjective Date of Service: 12/01/24 Principal diagnosis: Acute hypoxemic respiratory failure, CHF. Interval history: Events noted Physical Exam 2 Vital Signs: Vital Signs: Last Vital Signs Temp 98.6 F 12/01/24 07:24 Pulse 80 12/01/24 07:24 Resp 20 12/01/24 07:24 BP 140/88 H 12/01/24 07:24 Pulse Ox 97 12/01/24 07:24 O2 Del Method Nasal Cannula 12/01/24 07:24 O2 Flow Rate 3 12/01/24 07:24 FiO2 40 11/29/24 01:20 BMI result Body Mass Index 34.4 Awake. Comfortable. Neck is supple. Mucosa moist. Lungs bilateral scattered rhonchi. Heart S1-S2 heard no gallop. Abdomen soft. Extremities no edema. No involuntary movements. No myoclonus. Objective Data Labs 12/01/24 07:04 12/01/24 07:04 Labs: Laboratory Results - last 24 hr 11/30/24 11/30/24 11/30/24 11:08 11:21 16:12 WBC RBC Hgb Hct MCV MCH MCHC RDW Plt Count MPV Absolute Nucleated RBC Nucleated RBC % (auto) aPTT Heparin Protocol Sodium Potassium Chloride Carbon Dioxide Anion Gap BUN Creatinine Estim Creat Clear Calc Estimated GFR POC Glucose 196 H 220 H Random Glucose Calcium B-Natriuretic Peptide 525 H 11/30/24 12/01/24 12/01/24 20:35 06:53 07:04 WBC 7.4 RBC 4.25 L Hgb 12.7 L Hct 39.2 L MCV 92.2 MCH 29.9 MCHC 32.4 RDW 15.7 Plt Count 169 MPV 11.6 Absolute Nucleated RBC 0.000 Nucleated RBC % (auto) 0.0 aPTT Heparin Protocol 35.1 L D Sodium 139 Potassium 4.2 Chloride 95 L Carbon Dioxide 34 H Anion Gap 14 BUN 42 H Creatinine 2.07 H Estim Creat Clear Calc 36.8 Estimated GFR 31 POC Glucose 192 H 101 Random Glucose 108 Calcium 9.1 D B-Natriuretic Peptide Microbiology Microbiology Results: Microbiology 11/28/24 09:18 Blood - Venous Blood Culture - Preliminary No growth after 48 hours. 11/28/24 09:17 Blood - Venous Blood Culture - Preliminary No growth after 48 hours. Procedures Date of Service Date of Service: 12/01/24 Assessment & Plan Assessment and plan (1) CKD stage 3b, GFR 30-44 ml/min: Status: Acute Plan Has underlying CKD 3. Renal function close to baseline Had been having hypervolemia with hypoxia; Getting diuresis Keep O >I Will hold ACEI until current acute issues have resolved Could start SGLT2 i; C/W rest of current supportive care for now Shall continue to closely follow up Time Spent With Patient Time: Total time managing care of this patient today ____ minutes. Progress Note: Quality Stroke Does the patient have a stroke diagnosis?: No
[2024-12-01 10:58] LABS: Glucose, Whole Blood 153 mg/dL (60-115)
[2024-12-01] MEDS: Insulin Lispro 100 UNIT/ML 3 ML VIAL SUBCUT ×3 (11:15→20:23)
--- NOTE | 2024-12-01 12:11 | HO.PM.IMPN ---
Subjective Subjective Date of Service: 12/01/24 Interval History: F/u on acute NSTEMI and heart failure. He was admitted for RSV relaed dyspnea, and during hospitalization has developped acute CO complicated by heart failure, acute hypoxic respiratory failure necessitating BiPAP and CPAP. He is doing well, no acute shortness of breath creatine is slightly higher Physical Exam Vital Signs: Vital Signs: Last Vital Signs Temp 97.0 F 12/01/24 11:10 Pulse 70 12/01/24 11:10 Resp 20 12/01/24 11:10 BP 148/78 H 12/01/24 11:10 Pulse Ox 98 12/01/24 11:10 O2 Del Method Nasal Cannula 12/01/24 11:10 O2 Flow Rate 3 12/01/24 11:10 FiO2 40 11/29/24 01:20 BMI result Body Mass Index 34.4 Const: Other: General: AO X 3, no acute distress Resp: CTA bilateral CVS: S1,S2, iregular iregular GI: +BS, NT, no distention Skin: No rash Neuro: motor grossly intact Psych: appropriate affect Objective Data Active Medications Acetaminophen (Acetaminophen 325 Mg Tablet) 650 mg PO Q6H PRN PRN Reason: Pain, Mild 1-3,fever,headache Last Admin: 11/28/24 13:25 Dose: 650 mg Documented By: RUFUS Albuterol/Ipratropium (Albuterol/Iprat 2.5/0.5mg 3 Ml Ampul.Neb) 3 ml INHALE RQ4H WHILE AWAKE [facility] Last Admin: 12/01/24 11:08 Dose: 3 ml Documented By: ALBA Albuterol/Ipratropium (Albuterol/Iprat 2.5/0.5mg 3 Ml Ampul.Neb) 3 ml INHALE Q4H PRN PRN Reason: Wheezing Last Admin: 11/28/24 22:11 Dose: 3 ml Documented By: NANCY Allopurinol (Allopurinol 100 Mg Tablet) 50 mg PO DAILY [facility] Last Admin: 12/01/24 08:05 Dose: 50 mg Documented By: RUFUS Amlodipine Besylate (Amlodipine Besylate 5 Mg Tablet) 5 mg PO DAILY [facility]; Protocol Last Admin: 12/01/24 08:05 Dose: 5 mg Documented By: RUFUS Apixaban (Apixaban 5 Mg Tablet) 5 mg PO BID [facility] Last Admin: 12/01/24 08:05 Dose: 5 mg Documented By: RUFUS Aspirin (Aspirin 81 Mg Tab.Chew) 81 mg PO DAILY [facility] Last Admin: 12/01/24 08:05 Dose: 81 mg Documented By: RUFUS Atorvastatin Calcium (Atorvastatin Calcium 40 Mg Tablet) 40 mg PO BEDTIME [facility] Last Admin: 11/30/24 22:12 Dose: 40 mg Documented By: BAUTISTA Calcium Carbonate (Calcium Carbonate 750 Mg Tab.Chew) 750 mg PO Q4H PRN PRN Reason: Heartburn Donepezil HCl (Donepezil Hcl 10 Mg Tablet) 10 mg PO BEDTIME [facility] Last Admin: 11/30/24 22:12 Dose: 10 mg Documented By: BAUTISTA Gabapentin (Gabapentin 400 Mg Capsule) 800 mg PO BID [facility] Last Admin: 12/01/24 08:05 Dose: 800 mg Documented By: RUFUS Glucose (Glucose Gel 15 Gm Gel..Gram.) 15 gm PO Q15M PRN; Protocol PRN Reason: per Hypoglycemia Standing Ord. Guaifenesin (Guaifenesin 100 Mg/5 Ml 5 Ml Liquid) 5 ml PO Q4H PRN PRN Reason: Cough Last Admin: 12/01/24 08:04 Dose: 5 ml Documented By: RUFUS Dextrose (D10) 250 mls @ 750 mls/hr IV Q15M PRN; Protocol PRN Reason: per Hypoglycemia Standing Ord. Insulin Human Lispro (Insulin Lispro 100 Unit/Ml 3 Ml Vial) 0 unit SUBCUT QIDACHS [facility]; Protocol Last Admin: 12/01/24 11:15 Dose: 2 unit Documented By: RUFUS Isosorbide Mononitrate (Isosorbide Mononitrate 30 Mg Tab.Er.24h) 30 mg PO DAILY [facility]; Protocol Last Admin: 12/01/24 08:04 Dose: 30 mg Documented By: RUFUS Loratadine (Loratadine 10 Mg Tablet) 10 mg PO DAILY [facility] Last Admin: 12/01/24 08:05 Dose: 10 mg Documented By: RUFUS Magnesium Hydroxide (Milk Of Magnesia 30 Ml Oral.Susp) 30 ml PO DAILY PRN PRN Reason: Constipation Magnesium Oxide (Magnesium Oxide 400 Mg Tablet) 200 mg PO DAILY [facility] Last Admin: 12/01/24 08:05 Dose: 200 mg Documented By: RUFUS Melatonin (Melatonin 3 Mg Tablet) 6 mg PO BEDTIME PRN PRN Reason: Insomnia Last Admin: 11/30/24 22:11 Dose: 6 mg Documented By: BAUTISTA Comments: promote sleep Memantine (Memantine Hcl 10 Mg Tablet) 10 mg PO BID [facility] Last Admin: 12/01/24 08:05 Dose: 10 mg Documented By: RUFUS Metoprolol Tartrate (Metoprolol Tartrate 100 Mg Tablet) 100 mg PO BID [facility]; Protocol Last Admin: 12/01/24 08:06 Dose: 100 mg Documented By: RUFUS Multivitamins/Vitamin C (Multivitamin Tablet) 1 tab PO DAILY [facility] Last Admin: 12/01/24 08:05 Dose: 1 tab Documented By: RUFUS Pt Own (Insulin Asp Prt-Insulin Aspart [ Novolog Mix 70-30 U- 100 Insuln] 30 - 76 unit SUBCUT BIDWM [facility] Last Admin: 12/01/24 08:04 Dose: 40 unit Documented By: RUFUS Comments: poc= 101 Omeprazole (Omeprazole 20 Mg Capsule.Dr) 20 mg PO BID@0630,1630 [facility] Last Admin: 12/01/24 06:31 Dose: 20 mg Documented By: BAUTISTA Ondansetron HCl (Ondansetron Hcl 4 Mg/2 Ml Vial) 4 mg IVPUSH Q8H PRN PRN Reason: Nausea and Vomiting Sodium Chloride (0.9 % Sodium Chloride Flush 3 Ml Syringe) 3 ml IVFLUSH QSHIFT [facility] Last Admin: 12/01/24 08:06 Dose: 3 ml Documented By: RUFUS Sucralfate (Sucralfate 1 Gm Tablet) 1 gm PO TIDAC [facility] Last Admin: 12/01/24 11:15 Dose: 1 gm Documented By: RUFUS Labs 12/01/24 07:04 12/01/24 07:04 Labs: Laboratory Results - last 24 hr 11/30/24 11/30/24 12/01/24 16:12 20:35 06:53 MCV MCH MCHC RDW Plt Count MPV Absolute Nucleated RBC Nucleated RBC % (auto) aPTT Heparin Protocol Anion Gap Estim Creat Clear Calc Estimated GFR POC Glucose 220 H 192 H 101 Random Glucose Calcium 12/01/24 12/01/24 07:04 10:55 MCV 92.2 MCH 29.9 MCHC 32.4 RDW 15.7 Plt Count 169 MPV 11.6 Absolute Nucleated RBC 0.000 Nucleated RBC % (auto) 0.0 aPTT Heparin Protocol 35.1 L D Anion Gap 14 Estim Creat Clear Calc 36.8 Estimated GFR 31 POC Glucose 153 H Random Glucose 108 Calcium 9.1 D Microbiology Microbiology Results: Microbiology 11/28/24 09:18 Blood Culture - Preliminary Blood - Venous No growth after 48 hours. 11/28/24 09:17 Blood Culture - Preliminary Blood - Venous No growth after 48 hours. Assessment and Plan (1) Respiratory syncytial virus (RSV): Status: Acute Plan A 79-year-old male with a history of CAD, DM, Alzheimer's dementia, HLD, CKD stage 3, and chronic AFib presents with a cough and chest discomfort but no fever. CXR is unremarkable, and RSV testing is positive. Oxygen saturation is 95?98% on room air but drops to 87% with ambulation, causing the patient to become winded. Patient was admitted for management for RSV with hypoxia and has have ups and dows but overall was progressing until the morning of 11/28/24 when became acutely more short of breath with significantly hypoxia in into 80s and work up now showing acute NSTEMI, and heart failure. Acute NSTEMI likely ischemic with multiple comorbidities including dementia, CKD, diabetes -completed IV heparin for 48 hrs, continue ASA, metoprololol, and statin -cardiology has discussed treatment option with the family and given multiple comorbidities, likely not candidate for intervention and therefore medical management, family (son) agrees Heart failure--echo showed 1. Severely reduced LV ejection fraction 20-25% with wall motion abnormality in multiple coronary distribution, could represent stress-induced cardiomyopathy -monitor I/O, electrolytes and BMP -Stop IV Bumex d/t rising Cr, resume PO tomorrow -following I/O, bmp and BNP -Bragg for acurate I/O and large urine retention CKD/cardiorenal syndorme, Cr slightly higher but within baseline -Nephrology consult -monitor BMP -Per Nephro--hold LEI/ARB for now RSV, -conservative management -hold IV steroid due to tendency for hyperglycemia -updraft PRN -robitussin for cough -O2 PRN Elevated WBC d/t steroid Acute lactic acidosis--not due to sepsis, rather d/t hypoxia for heart failure and NSTEMI Diabetes with hyperglycemia, blood sugars are much better -continue home Novolog 70/30 bid, dose adjusted per sugar level -sliding with admelog Chronic afib, rate controlled on metoprolol -continuec eliquis GERD PPI Dementia, continue Memantine and Donezepil DVT prophylaxis, eliquis/hparin Full code, will discuss goals of care with family PT annita, but family inclined to take him home with home services Quality Stroke Does the patient have a stroke diagnosis?: No VTE Prior VTE?: No VTE Risk Level:: Medical - moderate - high VTE Device Contraindication: N/A - Device Ordered VTE Drug Contraindication: N/A - Med Ordered
--- NOTE | 2024-12-01 15:27 | MHC.CM.PN ---
Pt has not been medically cleared for DC yet. He is awaiting PT eval to determine DC plan. CM to follow and assist with DC plan.
[2024-12-01 16:26] LABS: Glucose, Whole Blood 182 mg/dL (60-115)
[2024-12-01] MEDS: Bumetanide 1 MG TABLET PO (18:08)
[2024-12-01] MEDS: Melatonin 3 MG TABLET 6 MG PO (20:22)
[2024-12-01 20:23] LABS: Glucose, Whole Blood 194 mg/dL (60-115)
[2024-12-01] MEDS: Atorvastatin Calcium 40 MG TABLET PO (20:23)
[2024-12-01] MEDS: Donepezil HCl 10 MG TABLET PO (20:23)
[2024-12-02] VITALS (9 sets, daily range): BP systolic 130–135; BP diastolic 68–85; PULSE 68–80; RESP 14–20; TEMP 36.2–37.5; O2SAT 92–97
[2024-12-02] MEDS: Omeprazole 20 MG CAPSULE.DR PO ×2 (05:45→17:57)
[2024-12-02 07:16] LABS: Glucose, Whole Blood 144 mg/dL (60-115)
[2024-12-02 07:21] LABS: Hemoglobin 11.7 g/dl (14.0-18.0); Mean Corpuscular HGB Conc 32.5 g/dl (31.0-36.0); Mean Corpuscular Hemoglobin 30.2 pg (27.0-33.0); Mean Corpuscular Volume 92.8 fL (80.0-98.0); Mean Platelet Volume 11.3 fL (9.4-12.4); Platelet Count 177 X10*3/uL (160-400); Red Blood Count 3.88 X10*6/uL (4.60-5.80); Red Cell Distribution Width 15.5 % (11.0-16.0); White Blood Count 8.9 X10*3/uL (4.8-10.8)
[2024-12-02] MEDS: Albuterol/Iprat 2.5/0.5MG 3 ML AMPUL.NEB INHALE ×4 (07:30→20:47)
[2024-12-02 08:15] LABS: Anion Gap 14 (12-20); Blood Urea Nitrogen 49 mg/dL (9-16); Calcium 9.1 mg/dL (8.4-10.2); Carbon Dioxide 34 mmol/L (22-29); Chloride 94 mmol/L (96-108); Creatinine Clr Calc Pharmacy 39.2; Estimated Glomerular Filt Rate 34; Glucose Random 144 mg/dL (60-115); Potassium 4.3 mmol/L (3.3-5.1); Sodium 138 mmol/L (135-145)
[2024-12-02] MEDS: Gabapentin 400 MG CAPSULE 800 MG PO ×2 (10:36→20:39)
[2024-12-02] MEDS: Aspirin 81 MG TAB.CHEW PO (10:37)
[2024-12-02] MEDS: Apixaban 5 MG TABLET PO ×2 (10:37→20:39)
[2024-12-02] MEDS: Loratadine 10 MG TABLET PO (10:37)
[2024-12-02] MEDS: amLODIPine Besylate 5 MG TABLET PO (10:37)
[2024-12-02] MEDS: allopurinoL 100 MG TABLET 50 MG PO (10:37)
[2024-12-02] MEDS: Magnesium Oxide 400 MG TABLET 200 MG PO (10:38)
[2024-12-02] MEDS: Bumetanide 1 MG TABLET PO ×2 (10:38→17:57)
[2024-12-02] MEDS: Sucralfate 1 GM TABLET PO ×3 (10:38→18:16)
[2024-12-02] MEDS: Memantine HCl 10 MG TABLET PO ×2 (10:38→20:39)
[2024-12-02] MEDS: Isosorbide Mononitrate 30 MG TAB.ER.24H PO (10:38)
[2024-12-02] MEDS: Multivitamin TABLET 1 TAB PO (10:39)
[2024-12-02] MEDS: Metoprolol Tartrate 100 MG TABLET PO ×2 (10:39→20:39)
[2024-12-02] MEDS: 0.9 % Sodium Chloride Flush 3 ML SYRINGE IVFLUSH ×3 (10:40→20:41)
[2024-12-02 11:12] LABS: Glucose, Whole Blood 294 mg/dL (60-115)
[2024-12-02] MEDS: Insulin Lispro 100 UNIT/ML 3 ML VIAL SUBCUT ×3 (13:10→20:41)
[2024-12-02] MEDS: guaiFENesin 100 MG/5 ML 5 ML LIQUID PO ×2 (13:10→17:57)
[2024-12-02] MEDS: Acetaminophen 325 MG TABLET 650 MG PO (13:11)
[2024-12-02 15:18] LABS: Glucose, Whole Blood 350 mg/dL (60-115)
--- NOTE | 2024-12-02 17:03 | P.PNIM_ITS ---
Subjective Subjective Date of Service: 12/03/24 Interval History: acute NSTEMI and heart failure Review of Systems sob seems somewhat imporving, still sob with minimal excersion no fevers Physical Exam 2 Vital Signs: Vital Signs: Last Vital Signs Temp 97.3 F 12/02/24 15:33 Pulse 75 12/02/24 15:33 Resp 18 12/02/24 15:33 BP 130/84 12/02/24 15:33 Pulse Ox 94 12/02/24 15:33 O2 Del Method Nasal Cannula 12/02/24 15:33 O2 Flow Rate 2 12/02/24 15:33 FiO2 40 11/29/24 01:20 BMI result Body Mass Index 34.4 General: AO X 3, no acute distress Resp: CTA bilateral CVS: S1,S2, iregular iregular GI: +BS, NT, no distention Skin: No rash Neuro: motor grossly intact Psych: appropriate affect Objective Data Active Medications Acetaminophen (Acetaminophen 325 Mg Tablet) 650 mg PO Q6H PRN PRN Reason: Pain, Mild 1-3,fever,headache Last Admin: 12/02/24 13:11 Dose: 650 mg Documented By: SHRADDHA Albuterol/Ipratropium (Albuterol/Iprat 2.5/0.5mg 3 Ml Ampul.Neb) 3 ml INHALE RQ4H WHILE AWAKE [facility] Last Admin: 12/02/24 15:25 Dose: 3 ml Documented By: ALBA Albuterol/Ipratropium (Albuterol/Iprat 2.5/0.5mg 3 Ml Ampul.Neb) 3 ml INHALE Q4H PRN PRN Reason: Wheezing Last Admin: 11/28/24 22:11 Dose: 3 ml Documented By: NANCY Allopurinol (Allopurinol 100 Mg Tablet) 50 mg PO DAILY [facility] Last Admin: 12/02/24 10:37 Dose: 50 mg Documented By: SHRADDHA Amlodipine Besylate (Amlodipine Besylate 5 Mg Tablet) 5 mg PO DAILY [facility]; Protocol Last Admin: 12/02/24 10:37 Dose: 5 mg Documented By: SHRADDHA Apixaban (Apixaban 5 Mg Tablet) 5 mg PO BID [facility] Last Admin: 12/02/24 10:37 Dose: 5 mg Documented By: SHRADDHA Aspirin (Aspirin 81 Mg Tab.Chew) 81 mg PO DAILY [facility] Last Admin: 12/02/24 10:37 Dose: 81 mg Documented By: SHRADDHA Atorvastatin Calcium (Atorvastatin Calcium 40 Mg Tablet) 40 mg PO BEDTIME [facility] Last Admin: 12/01/24 20:23 Dose: 40 mg Documented By: LINCOLN Bumetanide (Bumetanide 1 Mg Tablet) 1 mg PO BID@0800,1700 [facility]; Protocol Last Admin: 12/02/24 10:38 Dose: 1 mg Documented By: SHRADDHA Calcium Carbonate (Calcium Carbonate 750 Mg Tab.Chew) 750 mg PO Q4H PRN PRN Reason: Heartburn Donepezil HCl (Donepezil Hcl 10 Mg Tablet) 10 mg PO BEDTIME [facility] Last Admin: 12/01/24 20:23 Dose: 10 mg Documented By: LINCOLN Gabapentin (Gabapentin 400 Mg Capsule) 800 mg PO BID [facility] Last Admin: 12/02/24 10:36 Dose: 800 mg Documented By: SHRADDHA Glucose (Glucose Gel 15 Gm Gel..Gram.) 15 gm PO Q15M PRN; Protocol PRN Reason: per Hypoglycemia Standing Ord. Guaifenesin (Guaifenesin 100 Mg/5 Ml 5 Ml Liquid) 5 ml PO Q4H PRN PRN Reason: Cough Last Admin: 12/02/24 13:10 Dose: 5 ml Documented By: SHRADDHA Dextrose (D10) 250 mls @ 750 mls/hr IV Q15M PRN; Protocol PRN Reason: per Hypoglycemia Standing Ord. Insulin Human Lispro (Insulin Lispro 100 Unit/Ml 3 Ml Vial) 0 unit SUBCUT QIDACHS [facility]; Protocol Last Admin: 12/02/24 13:10 Dose: 6 unit Documented By: SHRADDHA Isosorbide Mononitrate (Isosorbide Mononitrate 30 Mg Tab.Er.24h) 30 mg PO DAILY [facility]; Protocol Last Admin: 12/02/24 10:38 Dose: 30 mg Documented By: SHRADDHA Loratadine (Loratadine 10 Mg Tablet) 10 mg PO DAILY [facility] Last Admin: 12/02/24 10:37 Dose: 10 mg Documented By: SHRADDHA Magnesium Hydroxide (Milk Of Magnesia 30 Ml Oral.Susp) 30 ml PO DAILY PRN PRN Reason: Constipation Magnesium Oxide (Magnesium Oxide 400 Mg Tablet) 200 mg PO DAILY [facility] Last Admin: 12/02/24 10:38 Dose: 200 mg Documented By: SHRADDHA Melatonin (Melatonin 3 Mg Tablet) 6 mg PO BEDTIME PRN PRN Reason: Insomnia Last Admin: 12/01/24 20:22 Dose: 6 mg Documented By: LINCOLN Memantine (Memantine Hcl 10 Mg Tablet) 10 mg PO BID [facility] Last Admin: 12/02/24 10:38 Dose: 10 mg Documented By: SHRADDHA Metoprolol Tartrate (Metoprolol Tartrate 100 Mg Tablet) 100 mg PO BID [facility]; Protocol Last Admin: 12/02/24 10:39 Dose: 100 mg Documented By: SHRADDHA Multivitamins/Vitamin C (Multivitamin Tablet) 1 tab PO DAILY [facility] Last Admin: 12/02/24 10:39 Dose: 1 tab Documented By: SHRADDHA Pt Own (Insulin Asp Prt-Insulin Aspart [ Novolog Mix 70-30 U- 100 Insuln] 30 - 76 unit SUBCUT BIDWM [facility] Last Admin: 12/02/24 10:48 Dose: Not Given Documented By: SHRADDHA Non-Admin Reason: No Insulin Coverage Omeprazole (Omeprazole 20 Mg Capsule.) 20 mg PO BID@0630,1630 [facility] Last Admin: 12/02/24 05:45 Dose: 20 mg Documented By: LINCOLN Ondansetron HCl (Ondansetron Hcl 4 Mg/2 Ml Vial) 4 mg IVPUSH Q8H PRN PRN Reason: Nausea and Vomiting Sodium Chloride (0.9 % Sodium Chloride Flush 3 Ml Syringe) 3 ml IVFLUSH QSHIFT [facility] Last Admin: 12/02/24 10:40 Dose: 3 ml Documented By: SHRADDHA Sucralfate (Sucralfate 1 Gm Tablet) 1 gm PO TIDAC [facility] Last Admin: 12/02/24 13:11 Dose: 1 gm Documented By: SHRADDHA Labs 12/03/24 07:02 12/02/24 07:15 Labs: Laboratory Results - last 24 hr 12/01/24 12/02/24 12/02/24 20:19 07:07 07:15 MCV 92.8 MCH 30.2 MCHC 32.5 RDW 15.5 Plt Count 177 MPV 11.3 Absolute Nucleated RBC 0.000 Nucleated RBC % (auto) 0.0 Anion Gap 14 Estim Creat Clear Calc 39.2 Estimated GFR 34 POC Glucose 194 H 144 H Random Glucose 144 H Calcium 9.1 12/02/24 12/02/24 11:05 15:15 MCV MCH MCHC RDW Plt Count MPV Absolute Nucleated RBC Nucleated RBC % (auto) Anion Gap Estim Creat Clear Calc Estimated GFR POC Glucose 294 H 350 H* Random Glucose Calcium Assessment and Plan (1) Respiratory syncytial virus (RSV): Status: Acute Plan 79-year-old male with a history of CAD, DM, Alzheimer's dementia, HLD, CKD stage 3, and chronic AFib presents with a cough and chest discomfort but no fever. CXR is unremarkable, and RSV testing is positive. Oxygen saturation is 95?98% on room air but drops to 87% with ambulation, causing the patient to become winded. Patient was admitted for management for RSV with hypoxia and has have ups and dows but overall was progressing until the morning of 11/28/24 when became acutely more short of breath with significantly hypoxia in into 80s and work up now showing acute NSTEMI, and heart failure. Acute NSTEMI likely ischemic with multiple comorbidities including dementia, CKD, diabetes continue ASA, metoprololol, and statin,completed IV heparin for 48 hrs, cardiology has discussed treatment option with the family and given multiple comorbidities, likely not candidate for intervention and therefore medical management, family (son) agrees Heart failure--echo showed : Severely reduced LV ejection fraction 20-25% with wall motion abnormality in multiple coronary distribution, could represent stress-induced cardiomyopathy plan: monitor I/O: 5.7 liter negative, bmp and BNP Bragg for acurate I/O and large urine retention continue po diuretics ,slowly taper amlodipine dose to 2.5 mg qd and adjusted imdur to 60 mg. CKD/cardiorenal syndorme, Cr slightly higher but within baseline Nephrology following-hold LEI/ARB for now monitor BMP acute hypoxemic respiratory failure -multifactorial chf/rsv /nstemi: RSV-conservative management -hold IV steroid due to tendency for hyperglycemia -updraft PRN -robitussin for cough -O2 PRN,slowly taper Acute lactic acidosis--not due to sepsis, rather d/t hypoxia for heart failure and Nstemi. Diabetes with hyperglycemia, blood sugars are flactuating -continue home Novolog 70/30 bid, dose adjusted per sugar level -sliding with admelog Chronic afib, rate controlled on metoprolol -continuec eliquis GERD PPI Dementia, continue Memantine and Donezepil DVT prophylaxis, eliquis PT eval, but family inclined to take him home with home services, pt rec rehab d/w patient management with the family in detail length with the help of tourist guide, nursing staff present at bedside. Patient refused to go to rehab ,may need home with VNA PT Quality Stroke Does the patient have a stroke diagnosis?: No VTE Prior VTE?: No VTE Risk Level:: Medical - moderate - high VTE Device Contraindication: N/A - Device Ordered VTE Drug Contraindication: N/A - Med Ordered
--- NOTE | 2024-12-02 20:11 | P.PNNP_ITS ---
Subjective Subjective Date of Service: 12/02/24 Principal diagnosis: Acute hypoxemic respiratory failure, CHF. Interval history: Events noted; All recent data reviewed Physical Exam 2 Vital Signs: Vital Signs: Last Vital Signs Temp 97.3 F 12/02/24 15:33 Pulse 75 12/02/24 15:33 Resp 18 12/02/24 15:33 BP 130/84 12/02/24 15:33 Pulse Ox 94 12/02/24 15:33 O2 Del Method Nasal Cannula 12/02/24 15:33 O2 Flow Rate 2 12/02/24 15:33 FiO2 40 11/29/24 01:20 BMI result Body Mass Index 34.4 Const: General: no acute distress Eyes: EOM: EOMs intact bilaterally Resp: Auscultation: diminished lung sounds Cardio: Rate: regular rate GI: Palpation (GI): Soft to palpation Neuro: General: moves all extremities Objective Data Labs 12/02/24 07:15 12/02/24 07:15 Labs: Laboratory Results - last 24 hr 12/01/24 12/02/24 12/02/24 20:19 07:07 07:15 WBC 8.9 RBC 3.88 L Hgb 11.7 L Hct 36.0 L MCV 92.8 MCH 30.2 MCHC 32.5 RDW 15.5 Plt Count 177 MPV 11.3 Absolute Nucleated RBC 0.000 Nucleated RBC % (auto) 0.0 Sodium 138 Potassium 4.3 Chloride 94 L Carbon Dioxide 34 H Anion Gap 14 BUN 49 H Creatinine 1.94 H Estim Creat Clear Calc 39.2 Estimated GFR 34 POC Glucose 194 H 144 H Random Glucose 144 H Calcium 9.1 12/02/24 12/02/24 11:05 15:15 WBC RBC Hgb Hct MCV MCH MCHC RDW Plt Count MPV Absolute Nucleated RBC Nucleated RBC % (auto) Sodium Potassium Chloride Carbon Dioxide Anion Gap BUN Creatinine Estim Creat Clear Calc Estimated GFR POC Glucose 294 H 350 H* Random Glucose Calcium Microbiology Microbiology Results: Microbiology 11/28/24 09:18 Blood - Venous Blood Culture - Preliminary No growth after 48 hours. 11/28/24 09:17 Blood - Venous Blood Culture - Preliminary No growth after 48 hours. Procedures Date of Service Date of Service: 12/02/24 Assessment & Plan Assessment and plan (1) CKD stage 3b, GFR 30-44 ml/min: Status: Acute Plan Has underlying CKD 3. Renal function close to baseline Had been having hypervolemia with hypoxia; Getting diuresis Will hold ACEI until current acute issues have resolved Could start Farxiga; C/W rest of current supportive care for now Shall continue to closely follow up Progress Note: Quality Stroke Does the patient have a stroke diagnosis?: No
[2024-12-02] MEDS: Atorvastatin Calcium 40 MG TABLET PO (20:39)
[2024-12-02] MEDS: Donepezil HCl 10 MG TABLET PO (20:39)
[2024-12-02 20:43] LABS: Glucose, Whole Blood 188 mg/dL (60-115)
[2024-12-03] VITALS (7 sets, daily range): BP systolic 133–140; BP diastolic 62–71; PULSE 61–87; RESP 18–20; TEMP 36.3–36.8; O2SAT 94–98
[2024-12-03] MEDS: Omeprazole 20 MG CAPSULE.DR PO (06:08)
[2024-12-03 07:34] LABS: Glucose, Whole Blood 171 mg/dL (60-115)
[2024-12-03 07:43] LABS: Hematocrit 35.2 % (42.0-52.0); Hemoglobin 11.7 g/dl (14.0-18.0); Mean Corpuscular HGB Conc 33.2 g/dl (31.0-36.0); Mean Corpuscular Hemoglobin 30.5 pg (27.0-33.0); Mean Corpuscular Volume 91.9 fL (80.0-98.0); Platelet Count 168 X10*3/uL (160-400); Red Blood Count 3.83 X10*6/uL (4.60-5.80); Red Cell Distribution Width 15.5 % (11.0-16.0); White Blood Count 7.9 X10*3/uL (4.8-10.8)
[2024-12-03] MEDS: Albuterol/Iprat 2.5/0.5MG 3 ML AMPUL.NEB INHALE ×2 (08:04→11:46)
[2024-12-03] MEDS: Apixaban 5 MG TABLET PO (10:15)
[2024-12-03] MEDS: Bumetanide 1 MG TABLET PO (10:15)
[2024-12-03] MEDS: Aspirin 81 MG TAB.CHEW PO (10:15)
[2024-12-03] MEDS: Magnesium Oxide 400 MG TABLET 200 MG PO (10:15)
[2024-12-03] MEDS: Memantine HCl 10 MG TABLET PO (10:16)
[2024-12-03] MEDS: Sucralfate 1 GM TABLET PO ×2 (10:16→13:00)
[2024-12-03] MEDS: Multivitamin TABLET 1 TAB PO (10:16)
[2024-12-03] MEDS: amLODIPine Besylate 2.5 MG TABLET PO (10:16)
[2024-12-03] MEDS: allopurinoL 100 MG TABLET 50 MG PO (10:16)
[2024-12-03] MEDS: Loratadine 10 MG TABLET PO (10:17)
[2024-12-03] MEDS: Metoprolol Tartrate 100 MG TABLET PO (10:17)
[2024-12-03] MEDS: Isosorbide Mononitrate 60 MG TAB.ER.24H PO (10:17)
[2024-12-03] MEDS: Gabapentin 400 MG CAPSULE 800 MG PO (10:17)
[2024-12-03] MEDS: Insulin Lispro 100 UNIT/ML 3 ML VIAL SUBCUT ×2 (10:18→12:58)
[2024-12-03] MEDS: 0.9 % Sodium Chloride Flush 3 ML SYRINGE IVFLUSH (10:20)
--- NOTE | 2024-12-03 11:38 | P.F2F_ITS ---
Service Date Service Date: 12/03/24 Encounter Date of encounter: 12/03/24 Encounter: diabetes ,chf ,nsetmi,?urinary retention Reasons for Services Signs and symptoms assessed: sob or chest pain or leg swelling or new urinary c/o or retention Reason for retirement: CV/CP assess and/or care, diabetic teaching, monitoring of unstable blood sugar, medication management, medication treatment and teach disease management Reason for physical therapy: home safety and mobility, therapeutic exercises, re store joint function, gait/transfer training, assess need for DME, ADL training, energy conservation and other MD Overseeing Care: Kathy Villafana Homebound: Leaving the home is medically contraindicated at this time without the asist of a device and/or another person due th the listed conditions above and below. Reason homebound: weakness related to hospital stay Homebound supporting statement: Patient is generalised weak post hospitlisation ,has multiple coomorbidites and need help with going to appointments and labs draws as well as PT. Certification: Based on the above findings, I certify that this patient is confined to the home and needs intermittent retirement care, physical therapy and/or speech therapy, or continues to need occupational therapy. The patient is under my care, and I have initiated the establishment of the plan of care. The patient will be followed by a physician who will periodically review the plan of care. Time Spent With Patient Time: Total time managing care of this patient today ____ minutes.
--- NOTE | 2024-12-03 11:40 | P.DS_ITS ---
DS: Providers Provider Date of Service: 12/03/24 Date of admission: 11/27/24 10:31 Date of discharge: 12/03/24 Primary care physician: Kathy Villafana MD Consults: 11/25/24 21:09 Consult to Wound Care Routine Reason for consultation: blanchable redness to coccyx 11/28/24 10:05 Consult to Cardiology Routine Consulting Provider: [facility] [place] [facility] Reason for consultation: NSTEMI, heart failure Has provider been notified: Yes 11/28/24 10:27 Consult to Critical Care Routine Consulting Provider: Jose Ramon Palacios Reason for consultation: Acute Hypoxic resp failure due to NSTEMI, and Heart failure Has provider been notified: Yes 11/28/24 11:09 Consult to Nephrology Routine Consulting Provider: [facility] [place] [facility] Reason for consultation: CKD, cardiorenal syndrome 11/28/24 13:18 Consult to Wound Care Routine Reason for consultation: High risk, BIPAP Attending physician on discharge: Denise Canada Discharging clinician: Denise Canada DS: Diagnosis Discharge Diagnosis (1) CKD stage 3b, GFR 30-44 ml/min: Status: Acute DS: Summary Hospital Course Hospital Course: HPI: 79 y/o Mwith a history of CAD, DM, Alzheimer's dementia, HLD, CKD stage 3, and chronic AFib presents with a cough and chest discomfort but no fever. CXR is unremarkable, and RSV testing is positive. Oxygen saturation is 95?98% on room air but drops to 87% with ambulation, causing the patient to become winded. Patient was admitted for management for RSV with hypoxia and has have ups and dows but overall was progressing until the morning of 11/28/24 when became acutely more short of breath with significantly hypoxia in into 80s and work up now showing acute NSTEMI, and heart failure. Hospital course: Acute NSTEMI likely ischemic with multiple comorbidities including dementia, CKD, diabetes,also had HF with reduced EF: patient received asa ,metoprolol,statin, iv heparin for 48hrs : cardiology has discussed treatment option with the family and given multiple comorbidities, likely not candidate for intervention and therefore medical management. in addition treated for heart failure with diurtics -diursed well , followed by cardiology and nephrology: nephrology recomended to switch to bumex 1 mg po dailyand hold LEI/ARB for now, follow bmp outpatient .cardiology recomended cut amlodipine slowly (now on amlodipine 2.5 mg daily ) and imdur adjusted to 60 mg po daily. acute hypoxemic respiratory failure -multifactorial chf/rsv /nstemi:seems improved , now on baseline oxygen needs, no sob , improved significantly. improved with above supportive care. Elevated WBC d/t steroid, improved. blood cultures negative @48hrs . Acute lactic acidosis--not due to sepsis, rather d/t hypoxia for heart failure and NSTEMI. dm : fs flacutaes , continue diabetic diet. continue current insulin regimen. Chronic afib, rate controlled on metoprolol and continue eliquis . possible ? unriary retention: montelongo removed ,urinating small amounts and bladder scan 178 ml. added flomax, also explained if have new symptoms -might need outpatient urology. d/w family in detail -chf and diabetic education given . if gain weight 2 lb or more in 1 week -need outpatient diurtics adjustment. also advised strongly to lose weight, follow dm diet, moniter fs. plan: moniter bmp in 1 week. bumex adjusted to 1 mg qd ,amlodipine 2.5 qd, imdur 60 mg qd. floamx 0.4 mg po qhs if gain weight 2 lb or more in 1 week -need outpatient diurtics adjustment. also advised strongly to lose weight, follow dm diet, moniter fs. Above management discussed with the patient and his family at the bedside with the help of gluer machine operator and nursing staff present-discussed above management in detail, assessment and plan coordination time spent 40 minute. Patient and patient family declined for rehab, so going home with VNA and PT. Time Attestation Total time managing care of this patient today: 40 mintues. Discharge Coordination Time (in mins): 40 min Quality: Safe Use of Opioids Does Pt have an Active Cancer Diagnosis on the Problem List?: No Quality: Stroke Does the patient have a stroke diagnosis?: No Physical Exam Vital Signs: Vital Signs: Last Vital Signs Temp 97.4 F 12/03/24 07:21 Pulse 71 12/03/24 08:05 Resp 18 12/03/24 08:05 BP 137/65 12/03/24 07:21 Pulse Ox 98 12/03/24 11:23 O2 Del Method Nasal Cannula 12/03/24 07:21 O2 Flow Rate 1 12/03/24 07:21 FiO2 40 11/29/24 01:20 BMI result Body Mass Index 34.4 General: AO X 3, no acute distress Resp: CTA bilateral CVS: S1,S2, iregular iregular GI: +BS, NT, no distention Skin: No rash Neuro: motor grossly intact Psych: appropriate affect DS: Data Data Completed and Pending Completed studies during hospitalization [Text1]: Procedures Control Bleeding in Gastrointestinal Tract, Via Natural or Artificial Opening Endoscopic (08/17/23) Excision of Right Foot Skin, External Approach (10/07/21) Excision of Stomach, Pylorus, Via Natural or Artificial Opening Endoscopic, Diag nostic (08/17/23) Introduction of Mineral-based Topical Hemostatic Agent into Upper GI, Via Natural or Artificial Opening Endoscopic, [employer] 6 (08/17/23) Introduction of Other Therapeutic Substance into Upper GI, Via Natural or Artificial Opening Endoscopic (08/17/23) Transfusion of Nonautologous Frozen Plasma into Peripheral Vein, Percutaneous Approach (08/17/23) Transfusion of Nonautologous Red Blood Cells into Peripheral Vein, Percutaneous Approach (08/17/23) Labs on day of discharge: Laboratory Results - last 24 hr 12/02/24 12/02/24 12/03/24 15:15 20:39 07:02 WBC 7.9 RBC 3.83 L Hgb 11.7 L Hct 35.2 L MCV 91.9 MCH 30.5 MCHC 33.2 RDW 15.5 Plt Count 168 MPV 12.0 Absolute Nucleated RBC 0.000 Nucleated RBC % (auto) 0.0 POC Glucose 350 H* 188 H 12/03/24 07:18 WBC RBC Hgb Hct MCV MCH MCHC RDW Plt Count MPV Absolute Nucleated RBC Nucleated RBC % (auto) POC Glucose 171 H Preliminary micro results at discharge 11/28/24 09:18 Blood Culture - Preliminary Blood - Venous No growth after 48 hours. 11/28/24 09:17 Blood Culture - Preliminary Blood - Venous No growth after 48 hours. Imaging Chest x-ray: Radiologist's impression: ITS Impressions Chest X-Ray 11/25/24 10:15 IMPRESSION: Unremarkable chest exam. Electronically signed by: Demond Barajas MD 11/25/2024 11:44 AM [facility] [place] 11/28/24 09:00 IMPRESSION: Cardiomegaly with mild CHF. Electronically signed by: Demond Barajas MD 11/28/2024 10:27 AM [facility] [place] Discharge Plan Discharge Anticipated Discharge Date/Time: 12/03/24 11:21 Patient Disposition: Home Health Service Discharge Diagnosis: nstemi,chf ,ahrf multifactorial Referrals: Everett Matthews MD [Physician] - 1 Week Kathy Villafana MD [Primary Care Provider] - 1 Week Discharge Medications: New isosorbide mononitrate 60 mg Tablet Extended Release 24 Hr 60 mg PO DAILY Qty: 90 0RF Protocol: Hold for SBP< HOLD for SBP < : 90 aspirin 81 mg Tablet,Chewable 81 mg PO DAILY Qty: 60 0RF tamsulosin [Flomax] 0.4 mg capsule 0.4 mg PO BEDTIME Qty: 60 0RF Continued Eliquis 5 mg tablet 5 mg PO BID donepezil 10 mg tablet 1 tab PO BEDTIME CertaVite Senior 0.4-300-250 mg-mcg-mcg tablet 1 tab PO DAILY atorvastatin [Lipitor] 40 mg tablet 40 mg PO BEDTIME Qty: 30 0RF metoprolol tartrate 100 mg tablet 100 mg PO BID memantine 10 mg tablet 10 mg PO BID allopurinol 100 mg tablet 50 mg PO DAILY (DME) lancets [Lancets,Ultra Thin] Misc See Rx Instructions .Route Qty: 100 0RF Rx Instructions: As directed cetirizine 10 mg tablet 10 mg PO DAILY magnesium oxide 250 mg magnesium tablet 250 mg PO DAILY gabapentin 800 mg tablet 800 mg PO BID omeprazole 20 mg capsule,delayed release(DR/EC) 20 mg PO BID insulin asp prt-insulin aspart [Novolog Mix 70-30 U-100 Insuln] 100 unit/mL (70-30) solution 30 - 76 unit subcut BIDWM Rx Instructions: BG 150 or less: 50 units BG >150: 76 units sucralfate 1 gram tablet 1 g PO TIDAC (DME) insulin syringe-needle U-100 1 mL 31 gauge x 5/16 syringe See Rx Instructions subcut TID Qty: 10 Rx Instructions: As directed Changed amlodipine 5 mg tablet 2.5 mg PO DAILY Qty: 90 0RF bumetanide 1 mg tablet 1 mg PO DAILY Qty: 90 0RF Discharge Orders: Discharge Order (Routine); Ordered 12/03/24 Ordered By: Denise Canada Diet: Advance to usual diet Activity on Discharge: As tolerated Stand Alone Forms: Patient Portal Discharge page Print Language: Honduran Other Ambulatory Orders: Basic Metabolic Panel (Routine) Timeframe: 1 Week Facility: [facility] - Location: Laboratory Ordered By: Denise Canada Care Plan Goals: Acute NSTEMI likely ischemic with multiple comorbidities including dementia, CKD, diabetes,also had HF with reduced EF: patient received asa ,metoprolol,statin, iv heparin for 48hrs : cardiology has discussed treatment option with the family and given multiple comorbidities, likely not candidate for intervention and therefore medical management. in addition treated for heart failure with diurtics -diursed well , followed by cardiology and nephrology: nephrology recomended to switch to bumex 1 mg po daily, follow bmp outpatient .cardiology recomended cut amlodipine slowly (now on amlodipine 2.5 mg daily ) and imdur adjusted to 60 mg po daily. acute hypoxemic respiratory failure -multifactorial chf/rsv /nstemi:seems improved , now on baseline oxygen needs, no sob , improved significantly. dm : fs flacutaes , continue diabetic diet. d/w family in detail -chf and diabetic education given . if gain weight 2 lb or more in 1 week -need outpatient diurtics adjustment. also advised strongly to lose weight, follow dm diet, moniter fs. Patient need to follow up with pcp, nephrology and cardiology. Health Concerns: as above. Plan of Treatment: moniter bmp in 1 week. bumex adjusted to 1 mg qd ,amlodipine 2.5 qd, imdur 60 mg qd. if gain weight 2 lb or more in 1 week -need outpatient diurtics adjustment. also advised strongly to lose weight, follow dm diet, moniter fs. Assessment: as above. Patient Instructions: Heart Failure (DC), Respiratory Syncytial Virus (DC), Chronic Kidney Disease (DC), Diabetes and Exercise (DC)
[2024-12-03 11:58] LABS: Glucose, Whole Blood 246 mg/dL (60-115)
[2024-12-03] MEDS: guaiFENesin 100 MG/5 ML 5 ML LIQUID PO (12:58)
--- NOTE | 2024-12-03 13:14 | P.PNNP_ITS ---
Subjective Subjective Date of Service: 12/03/24 Principal diagnosis: Acute hypoxemic respiratory failure, CHF. Interval history: Events noted; All recent data reviewed Physical Exam 2 Vital Signs: Vital Signs: Last Vital Signs Temp 98.1 F 12/03/24 11:40 Pulse 72 12/03/24 11:47 Resp 18 12/03/24 11:47 BP 133/70 12/03/24 11:40 Pulse Ox 95 12/03/24 11:40 O2 Del Method Nasal Cannula 12/03/24 11:40 O2 Flow Rate 2 12/03/24 11:40 FiO2 40 11/29/24 01:20 BMI result Body Mass Index 34.4 Const: General: comfortable and no acute distress HEENT: Head: Yes normocephalic Mouth: Normal oral and palatal mucosa present Eyes: EOM: EOMs intact bilaterally Neck: Neck: Yes supple Resp: Auscultation: clear to auscultation bilaterally Cardio: Jugular venous distension: no JVD Rate: regular rate GI: Palpation (GI): Soft to palpation Auscultation: normal bowel sounds Skin: General skin exam: no rashes or lesions noted Objective Data Labs 12/03/24 07:02 12/02/24 07:15 Labs: Laboratory Results - last 24 hr 12/02/24 12/02/24 12/03/24 15:15 20:39 07:02 WBC 7.9 RBC 3.83 L Hgb 11.7 L Hct 35.2 L MCV 91.9 MCH 30.5 MCHC 33.2 RDW 15.5 Plt Count 168 MPV 12.0 Absolute Nucleated RBC 0.000 Nucleated RBC % (auto) 0.0 POC Glucose 350 H* 188 H 12/03/24 12/03/24 07:18 11:39 WBC RBC Hgb Hct MCV MCH MCHC RDW Plt Count MPV Absolute Nucleated RBC Nucleated RBC % (auto) POC Glucose 171 H 246 H Microbiology Microbiology Results: Microbiology 11/28/24 09:18 Blood - Venous Blood Culture - Final No growth after 5 days. 11/28/24 09:17 Blood - Venous Blood Culture - Final No growth after 5 days. Procedures Date of Service Date of Service: 12/03/24 Assessment & Plan Assessment and plan (1) CKD stage 3b, GFR 30-44 ml/min: Status: Acute Plan Has underlying CKD 3. Renal function close to baseline Had been having hypervolemia with hypoxia; Getting diuresis-improved Will hold ACEI until current acute issues have resolved Could start Farxiga; C/W rest of current supportive care for now Progress Note: Quality Stroke Does the patient have a stroke diagnosis?: No
--- NOTE | 2024-12-03 13:26 | MHC.CM.PN ---
Second IMM 12/03/24, Pt has been medically cleared for DC, he will go home this afternoon via BLS and have home health services from [facility].
== END 2024-12-03 14:37 | disposition home health service (06) | DRG 189 ==
LOC: HO.ED 17:08 → HO.EDOVER 18:26 → HO.S3 19:25 → HO.IMC 11-28 08:54
PROVIDERS: Physician Assistant Medical; Student in an Organized Health Care Education/Training Program; Admitting Provider Internal Medicine; Emergency Provider Emergency Medicine; PCP General Practice; Visit Provider Internal Medicine
DX: J96.01 Acute respiratory failure with hypoxia (principal); I21.4 Non-ST elevation (NSTEMI) myocardial infarction; I13.0 Hypertensive heart and chronic kidney disease with heart failure and stage 1 through stage 4 chronic kidney disease, or unspecified chronic kidney disease; E87.21 Acute metabolic acidosis; I48.20 Chronic atrial fibrillation, unspecified; I51.81 Takotsubo syndrome; I25.10 Atherosclerotic heart disease of native coronary artery without angina pectoris; I25.5 Ischemic cardiomyopathy; E11.65 Type 2 diabetes mellitus with hyperglycemia; N18.32 Chronic kidney disease, stage 3b; E11.22 Type 2 diabetes mellitus with diabetic chronic kidney disease; R33.9 Retention of urine, unspecified; K21.9 Gastro-esophageal reflux disease without esophagitis; G30.9 Alzheimer's disease, unspecified; B97.4 Respiratory syncytial virus as the cause of diseases classified elsewhere; F02.80 Dementia in other diseases classified elsewhere, unspecified severity, without behavioral disturbance, psychotic disturbance, mood disturbance, and anxiety; Z20.822 Contact with and (suspected) exposure to COVID-19; E78.5 Hyperlipidemia, unspecified; Z79.4 Long term (current) use of insulin; Z79.01 Long term (current) use of anticoagulants; Z79.899 Other long term (current) drug therapy
CPT/HCPCS: 0241U; 36415; 36600; 71045; 71046; 80048; 82803; 82947; 83605; 83880; 84484; 85025; 85027; 85730; 87040; 93005; 93306; 94640; 94660; 97110; 97116; 97162; 99285; C1758; J1644; J1939; J2919; Q9957

== ENCOUNTER → 2024-11-25 10:15 | Outpatient (BNV) | payer OTHER, SELFPAY | PROVIDERS: PCP General Practice; Visit Provider Radiology Diagnostic Radiology | DX: R05.8 Other specified cough (principal) | CPT/HCPCS: 71046 ==

== ENCOUNTER → 2024-11-25 16:26 | Outpatient (BNV) | payer OTHER, SELFPAY | PROVIDERS: Admitting Provider Internal Medicine; Emergency Provider Emergency Medicine; PCP General Practice; Visit Provider Internal Medicine Cardiovascular Disease | DX: I48.91 Unspecified atrial fibrillation (principal) | CPT/HCPCS: 93010 ==

== ENCOUNTER → 2024-11-25 18:21 | Outpatient (BNV) | payer OTHER, SELFPAY | PROVIDERS: Admitting Provider Internal Medicine; Emergency Provider Emergency Medicine; PCP General Practice; Visit Provider Internal Medicine | DX: B33.8 Other specified viral diseases (principal) | CPT/HCPCS: 99223; 99232 ==

== ENCOUNTER 2024-11-27 10:31 | Outpatient (BNV) | payer OTHER, SELFPAY | END 2024-11-27 16:47 | PROVIDERS: Admitting Provider Internal Medicine; Emergency Provider Emergency Medicine; PCP General Practice; Visit Provider Internal Medicine Cardiovascular Disease | DX: I48.91 Unspecified atrial fibrillation (principal) | CPT/HCPCS: 93010 ==

== ENCOUNTER 2024-11-27 10:31 | Outpatient (BNV) | payer OTHER, SELFPAY | END 2024-11-29 11:27 | PROVIDERS: Admitting Provider Internal Medicine; Emergency Provider Emergency Medicine; PCP General Practice; Visit Provider Internal Medicine Cardiovascular Disease | DX: I48.91 Unspecified atrial fibrillation (principal) | CPT/HCPCS: 93010 ==

== ENCOUNTER 2024-11-27 10:31 | Outpatient (BNV) | payer OTHER, SELFPAY | END 2024-11-28 07:00 | PROVIDERS: Admitting Provider Internal Medicine; Emergency Provider Emergency Medicine; PCP General Practice; Visit Provider Internal Medicine Cardiovascular Disease | DX: I50.9 Heart failure, unspecified (principal); I34.0 Nonrheumatic mitral (valve) insufficiency; I36.1 Nonrheumatic tricuspid (valve) insufficiency; I48.91 Unspecified atrial fibrillation | CPT/HCPCS: 93010; 93306 ==

== ENCOUNTER 2024-11-27 10:31 | Outpatient (BNV) | payer OTHER, SELFPAY | END 2024-11-28 09:00 | PROVIDERS: Admitting Provider Internal Medicine; Emergency Provider Emergency Medicine; PCP General Practice; Visit Provider Radiology Diagnostic Radiology | DX: I51.7 Cardiomegaly (principal); I50.9 Heart failure, unspecified | CPT/HCPCS: 71045 ==

== ENCOUNTER → 2024-11-27 10:31 | Outpatient (BNV) | payer OTHER, SELFPAY | PROVIDERS: Admitting Provider Internal Medicine; Emergency Provider Emergency Medicine; PCP General Practice; Visit Provider Internal Medicine Nephrology | DX: N18.32 Chronic kidney disease, stage 3b (principal) | CPT/HCPCS: 99223; 99232 ==

== ENCOUNTER → 2024-11-27 10:31 | Outpatient (BNV) | payer OTHER, SELFPAY | PROVIDERS: Admitting Provider Internal Medicine; Emergency Provider Emergency Medicine; PCP General Practice; Visit Provider Internal Medicine Cardiovascular Disease | DX: J96.00 Acute respiratory failure, unspecified whether with hypoxia or hypercapnia (principal) | CPT/HCPCS: 99223 ==

== ENCOUNTER 2024-12-24 11:42 | Inpatient (IN) | payer OTHER, SELFPAY ==
[2024-12-24] VITALS (7 sets, daily range): BP systolic 140–171; BP diastolic 65–81; PULSE 75–107; RESP 18–22; TEMP 36.2–37.2; O2SAT 92–96; BMI 37.4; BMI 36.1
--- NOTE | ~2024-12-24 | XR_ITS ---
EXAMINATION: XR CHEST CLINICAL INFORMATION: dyspnea COMPARISON: Numerous priors, most recently 11/28/2024, 11/25/2024. TECHNIQUE: AP portable view of the chest was obtained. FINDINGS: Numerous leads overlie the thorax. The cardiac silhouette is largely obscured. There is probable underlying cardiomegaly. The central contours are normal. Vascular congestion in the hilar regions with perihilar opacities. Lungs demonstrate layering small to moderate-sized bilateral pleural effusions, and bilateral lower lobe, middle lobe, and lingular consolidations, possibly on the basis of multifocal pneumonia versus atelectasis from effusion. There is underlying haziness of the interstitium suggesting CHF. The aerated upper lungs are clear. There is no pneumothorax. No acute soft tissue or bone abnormalities. XR/XR chest 1V IMPRESSION: 1. Small to moderate effusions bilaterally with parenchymal opacities throughout the lower lungs bilaterally, possibly atelectasis, alveolar edema, or pneumonia. 2. Cardiomegaly with interstitial and changes of CHF present. Electronically signed by: Shane Griffith MD 12/24/2024 12:38 PM [facility]
--- NOTE | 2024-12-24 11:53 | ECG_ITS ---
Test Reason : SOB Blood Pressure : */* mmHG Vent. Rate : 84 BPM Atrial Rate : * BPM P-R Int : * ms QRS Dur : 82 ms QT Int : 320 ms P-R-T Axes : * 30 5 degrees QTcB Int : 378 ms Atrial fibrillation Low voltage QRS ST elevation consider lateral injury or acute infarct ACUTE [place] / STEMI Abnormal ECG When compared with ECG of 29-Nov-2024 11:27, Minimal criteria for Anterior infarct are no longer Present ST elevation now present in Lateral leads T wave inversion no longer evident in Anterior leads QT has shortened Referred By: Be Shen Electronically Signed By:
--- NOTE | 2024-12-24 12:00 | ED_ITS ---
HPI - General Adult General Chief complaint: Dyspnea Stated complaint: SOB, 80% HOME O2, X3W,RECENT PR,+THINN PER EMS Time Seen by Provider: 12/24/24 11:52 Source: patient Mode of arrival: EMS Limitations: language barrier and other History of Present Illness ED Provider: Mohinder HPI narrative: This is a 79-year-old man with a past medical history of CAD, diabetes mellitus, Alzheimer's dementia, hyperlipidemia, CKD and atrial fibrillation (on Eliquis), recent discharge from the hospital November 2024 for acute decompensated congestive heart failure and NSTEMI who is brought in by EMS for evaluation of dyspnea. History obtained using professional Vietnamese interpretation. History is somewhat limited from the patient due to history of dementia. Son present at the bedside contributes the history. Patient states that he is feeling not great. Patient states feeling dyspnea. He states no chest pain. He states no nausea. He states no pain otherwise. Son states that he called EMS yesterday because his father was having trouble breathing. Son states that the medics checked on him and did not feel the need to bring him to the hospital. Son states that he called again today because he was very shaky and was having difficulty breathing. Son states that follows that complained of any pain, had any vomiting or any trouble eating/drinking. Since states that he has not yet received his Bumex medication this morning. Related Data Home Medications ?Medication ?Instructions ?Recorded ?Confirmed apixaban 5 mg tablet (Eliquis) 5 mg PO BID 09/05/21 12/24/24 donepezil 10 mg tablet 1 tab PO BEDTIME 09/05/21 12/24/24 [id number]-aml-[id number] acid 0.4 1 tab PO DAILY 09/05/21 12/24/24 mg-lycopene 300 mcg-lutein 250 mcg tablet (CertaVite Senior) allopurinol 100 mg tablet 50 mg PO DAILY gout pain 10/07/21 12/24/24 insulin syringe-needle U-100 1 mL #10 ea 12/22/21 05/08/22 31 gauge x 04/10 memantine 10 mg tablet 10 mg PO BID 05/08/22 12/24/24 metoprolol tartrate 100 mg tablet 100 mg PO BID 05/08/22 12/24/24 cetirizine 10 mg tablet 10 mg PO DAILY congestion 08/17/23 12/24/24 gabapentin 800 mg tablet 800 mg PO BID 05/17/24 12/24/24 omeprazole 20 mg capsule,delayed 20 mg PO BID@0630,1630 05/17/24 12/24/24 release sucralfate 1 gram tablet 1 g PO TIDAC 05/17/24 12/24/24 magnesium oxide 250 mg PO DAILY 11/25/24 12/24/24 insulin aspar prt-insulin aspart 76 unit subcut BIDWM 12/24/24 12/24/24 100 unit/mL (70-30) subcutaneous soln (Novolog Mix 70-30 U-100 Insuln) Previous Rx's ?Medication ?Instructions ?Recorded atorvastatin 40 mg tablet (Lipitor) 40 mg PO BEDTIME #30 tabs 09/09/21 lancets (Lancets,Ultra Thin) #100 ea 10/21/21 amlodipine 5 mg tablet 2.5 mg (1/2 x 5 mg) PO DAILY #90 12/03/24 tabs aspirin 81 mg chewable tablet 81 mg PO DAILY #60 tabs 12/03/24 bumetanide 1 mg tablet 1 mg PO DAILY #90 tabs 12/03/24 isosorbide mononitrate 60 mg 60 mg PO DAILY #90 tabs 12/03/24 tablet,extended release 24 hr tamsulosin 0.4 mg capsule (Flomax) 0.4 mg PO BEDTIME #60 caps 12/03/24 Allergies Allergy/AdvReac Type Severity Reaction Status Date / Time No Known Allergies Allergy Verified 12/24/24 12:00 Review of Systems 2 Review of Systems: ROS as per HPI [facility] Past Medical History Medical History CAD (coronary artery disease) Trash foot Diabetic foot infection Heart failure with preserved ejection fraction HLD (hyperlipidemia) Diabetes mellitus Atrial fibrillation NSTEMI (non-ST elevated myocardial infarction) Alzheimer's dementia Kidney failure Diabetes HTN (hypertension) Surgical History No pertinent past surgical history Family History Family History Father No problems noted. Mother No problems noted. Social History Social History Household Members: Family Household Members Other:: sons and daughter in law Housing: Apartment Do you presently have visiting nurse or other home services: No Alcohol intake: never Patient Tobacco Use Status: Never used Tobacco e-Cigarette/Vaping Use: Never Used Second Hand Smoke Exposure: No Advance Directives: Yes Advance Directives on File: Yes Advance Directives Date on File: 09/06/21 service: No Current occupational status: retired Physical Exam ED Vital Signs: Vital Signs - 24 hr 12/24/24 11:55 12/24/24 13:43 12/24/24 15:13 Temperature 97.1 F 97.7 F 97.4 F Pulse Rate 82 77 75 Respiratory Rate 20 20 18 Blood Pressure 160/67 H 156/76 H 156/81 H Pulse Oximetry 96 92 94 Oxygen Delivery Method Nasal Cannula Nasal Cannula Nasal Cannula Oxygen Flow Rate 2 2 BMI result Body Mass Index 37.4 Gen: NAD, awake, alert, oriented to person and current location HEENT: NCAT, EOMI, normal conjunctiva CV: RRR, 2+ pretibial pitting edema Pulm: CTAB, no increased work of breathing GI: Soft, NTND, no rebound, guarding or rigidity Neuro: Grossly non focal Medications Administered Generic Name Dose Route Start Last Admin Trade Name Freq PRN Reason Stop Dose Admin Bumetanide 1 mg 12/24/24 17:00 12/24/24 17:37 Bumetanide 1 Mg/4 Ml Vial IVPUSH 1 mg BID@0900,1700 [facility] Administration Protocol Insulin Human Lispro 0 unit 12/24/24 16:30 12/24/24 18:30 Insulin Lispro 100 Unit/Ml 3 Ml Vial SUBCUT 4 unit QIDACHS [facility] Administration Protocol Omeprazole 20 mg 12/24/24 16:30 12/24/24 17:36 Omeprazole 20 Mg Capsule.Dr PO 20 mg BID@0630,1630 [facility] Administration Sucralfate 1 gm 12/24/24 16:30 12/24/24 17:36 Sucralfate 1 Gm Tablet PO 1 gm TIDAC [facility] Administration Discontinued Medications Generic Name Dose Route Start Last Admin Trade Name Freq PRN Reason Stop Dose Admin Bumetanide 1 mg 12/24/24 12:47 12/24/24 13:41 Bumetanide 1 Mg/4 Ml Vial IVPUSH 12/24/24 12:48 1 mg ONCE ONE Administration Protocol Ceftriaxone Sodium 1 gm 12/24/24 12:48 12/24/24 13:42 Ceftriaxone Sodium 1 Gm Vial IVPUSH 12/24/24 12:49 1 gm ONCE ONE Administration Doxycycline Hyclate 100 mg/ 250 mls @ 166.67 mls/hr 12/24/24 12:48 12/24/24 13:42 Sodium Chloride IV 12/24/24 14:17 166.67 mls/hr ONCE ONE Administration Medical Decision Making Medical Decision Making [facility] Narrative: Differential diagnosis includes, but is not limited to acute decompensated congestive heart failure viral URI, pneumonia, pneumothorax. Patient is afebrile and hemodynamically stable on supplemental oxygen via nasal cannula. I reviewed the patient's labs, EKG and chest x-ray as below. Patient is provided 1 mg IV Bumex given fluid overload on exam with pretibial pitting edema, elevated BNP and bilateral pleural effusions. However, given concern for potential pneumonia on chest x-ray, will treat empirically for community-acquired pneumonia given recent viral illness. Considered azithromycin, but QTC borderline at 442. Thus, we will provide doxycycline. Patient also provided ceftriaxone. I Explained diagnostic results and plan of care with the patient and family who stated understanding. I answered all questions asked by the patient and family. I discussed patient's case and management with admitting hospitalist, Dr. Wild, the patient is admitted in stable and improved condition for further workup and management. Admission/Observation Consideration of admission/observation: Escalation of care including admission/observation considered Consult Healthcare Provider Management of the patient was discussed with: Hospitalist Lab Data [facility] Lab Attestation statement: I reviewed the patient's lab results. I independently reviewed and interpreted the patient's blood work, which demonstrates stable chronic anemia with hemoglobin 10.6 (previous 11.7), thrombocytopenia platelet count 155 (previous range 143-181), patient hepatic by metabolic panel reassuring with improved renal function creatinine 1.42 (previous 1.94), mild hyperglycemia 169 without anion gap elevation to suggest diabetic ketoacidosis and further this is of low suspicion given clinical history, troponin 37 (previous 790), BNP 426 (previous 525). 12/24/24 12:11 12/24/24 12:11 Labs: Lab Results 12/24/24 12/24/24 12/24/24 Range/Units 12:11 12:17 13:24 WBC 7.9 (4.8-10.8) X10*3/uL RBC 3.57 L (4.60-5.80) X10*6/uL Hgb 10.6 L (14.0-18.0) g/dl Hct 33.8 L (42.0-52.0) % MCV 94.7 (80.0-98.0) fL MCH 29.7 (27.0-33.0) pg MCHC 31.4 (31.0-36.0) g/dl RDW 15.2 (11.0-16.0) % Plt Count 155 L (160-400) X10*3/uL MPV 11.4 (9.4-12.4) fL Immature Gran % (Auto) 0.3 (0.0-0.4) % Neut % (Auto) 78.4 H (45-73) % Lymph % (Auto) 11.6 L (20-40) % [place]isco[place] % (Auto) 8.0 (2-11) % Eos % (Auto) 1.3 (0-4) % Baso % (Auto) 0.4 (0-2) % Lymph # (Auto) 0.9 L (1.2-4.9) X10*3/uL [place] # (Auto) 0.6 (0.1-1.2) X10*3/uL Eos # (Auto) 0.1 (0.0-0.4) X10*3/uL Baso # (Auto) 0.0 (0.0-0.2) X10*3/uL Abs Immat Gran (auto) 0.02 (0.00-0.03) X10*3/uL Absolute Neuts (auto) 6.2 (2.0-8.3) x10*3/uL Absolute Nucleated RBC 0.000 (0.0-0.012) X10*3/uL Nucleated RBC % (auto) 0.0 (0.0-0.2) /100WBC VBG pH 7.44 H (7.32-7.43) VBG pCO2 49 mmHg VBG pO2 53 mmHg VBG HCO3 34 H (22-26) mmol/L VBG O2 Saturation 80.0 % VBG Base Excess 8.8 mmol/L Sodium 139 (135-145) mmol/L Potassium 4.7 (3.3-5.1) mmol/L Chloride 99 (96-108) mmol/L Carbon Dioxide 27 (22-29) mmol/L Anion Gap 18 (12-20) BUN 28 H (9-16) mg/dL Creatinine 1.42 H (0.5-1.4) mg/dL Estim Creat Clear Calc 54.3 Estimated GFR 48 Random Glucose 169 H (60-115) mg/dL Calcium 8.9 (8.4-10.2) mg/dL Troponin I High Sens 37.0 H D (<3.5-35.0) ng/L B-Natriuretic Peptide 426 H (<100) pg/mL Influenza Type A (PCR) NEGATIVE (Negative) Influenza Type B (PCR) NEGATIVE (Negative) RSV RNA Qual (PCR) POSITIVE A (Negative) SARS-CoV-2 RNA (RT-PCR) NEGATIVE (Negative) Independent Interpretation I performed an independent interpretation of an: EKG and Plain X-Ray Interpretation: I independently reviewed and interpreted the patient's EKG, which demonstrates atrial fibrillation at 84 beats per minute, QRS 82, QTC 378, no STEMI. I independently reviewed and interpreted the patient's 2nd EKG, which demonstrates atrial fibrillation at 78 beats per minute, QRS 86, QTC 442, no STEMI. I independently reviewed and interpreted the patient's x-ray, which demonstrates bilateral pleural effusions. Radiology Impression Discussion of test interpretation with radiology: I have reviewed the radiologist's reading. Radiologist Impression: XR/XR chest 1V IMPRESSION: 1. Small to moderate effusions bilaterally with parenchymal opacities throughout the lower lungs bilaterally, possibly atelectasis, alveolar edema, or pneumonia. 2. Cardiomegaly with interstitial and changes of CHF present. Electronically signed by: Shane Griffith MD 12/24/2024 12:38 PM [facility] [place], [place] Dictated By: Shane Griffith MD Signed By: <Electronically signed by Shane Griffith MD in OV> 12/24/24 1238 Discharge Plan Discharge Clinical Impression: Pneumonia, CHF exacerbation, Acute hypoxic respiratory failure Patient Disposition: Admitted As Inpatient Interventions: Admission Worksheet (ED) Last Done: 12/24/24 18:00 Discharge Date/Time: 12/24/24 18:49
[2024-12-24 12:18] LABS: MANUAL DIFF FLAG NO
[2024-12-24 12:21] LABS: Basophils Percent Auto 0.4 % (0-2); Eosinophils Absolute Auto 0.1 X10*3/uL (0.0-0.4); Eosinophils Percent Auto 1.3 % (0-4); Hematocrit 33.8 % (42.0-52.0); Hemoglobin 10.6 g/dl (14.0-18.0); Imm Gran Abs Auto 0.02 X10*3/uL (0.00-0.03); Imm Gran Pct Auto 0.3 % (0.0-0.4); Lymphocytes Absolute Auto 0.9 X10*3/uL (1.2-4.9); Lymphocytes Percent Auto 11.6 % (20-40); Mean Corpuscular HGB Conc 31.4 g/dl (31.0-36.0); Mean Corpuscular Hemoglobin 29.7 pg (27.0-33.0); Mean Corpuscular Volume 94.7 fL (80.0-98.0); Mean Platelet Volume 11.4 fL (9.4-12.4); Monocytes Absolute Auto 0.6 X10*3/uL (0.1-1.2); Neutrophils Absolute Auto 6.2 x10*3/uL (2.0-8.3); Neutrophils Percent Auto 78.4 % (45-73); Platelet Count 155 X10*3/uL (160-400); Red Blood Count 3.57 X10*6/uL (4.60-5.80); Red Cell Distribution Width 15.2 % (11.0-16.0); White Blood Count 7.9 X10*3/uL (4.8-10.8)
[2024-12-24 12:24] LABS: VBG Base Excess 8.8 mmol/L; VBG HCO3 34 mmol/L (22-26); VBG pCO2 49 mmHg; VBG pH 7.44 (7.32-7.43); VBG pO2 53 mmHg
[2024-12-24 12:26] LABS: Venous Blood Gas Refer to POC result
[2024-12-24 12:44] LABS: Anion Gap 18 (12-20); Blood Urea Nitrogen 28 mg/dL (9-16); Calcium 8.9 mg/dL (8.4-10.2); Carbon Dioxide 27 mmol/L (22-29); Chloride 99 mmol/L (96-108); Creatinine Clr Calc Pharmacy 54.3; Estimated Glomerular Filt Rate 48; Glucose Random 169 mg/dL (60-115); Potassium 4.7 mmol/L (3.3-5.1); Sodium 139 mmol/L (135-145)
[2024-12-24 12:47] LABS: B Type Natriuretic Peptide 426 pg/mL (<100)
[2024-12-24] MEDS: Bumetanide 1 MG/4 ML VIAL IVPUSH ×2 (13:41→17:37)
[2024-12-24] MEDS: cefTRIAXone sodium 1 GM VIAL IVPUSH (13:42)
[2024-12-24] MEDS: Doxycycline Hyclate 100 MG in 0.9 % Sodium Chloride 250 ML 166.67 MG IV (13:42)
[2024-12-24 14:15] LABS: Influenza A PCR NEGATIVE (Negative); Influenza B PCR NEGATIVE (Negative); Resp Syncy Virus RNA Qual PCR POSITIVE (Negative); SARS COV2 PCR INHOUSE NEGATIVE (Negative)
--- OUTSIDE RECORDS SUMMARY | 2024-12-24 14:36 | XMS_ITS | Encounter Summary ---
Author Organization [employer] Address [address] [facility] 7t [place] [address] Care Team Providers Care Horticulturalist Name Role Phone Kathy Villafana MD Primary Care Provider Encounter Details Date Type Department Care Team (Late st Contact Info) Description 12/12/2022 Orders Only [facility] MED & PEDS [address] [place] [address] Mary Ann Skaggs LPN Social History Tobacco Use Types Packs/Day Years Used Date Smoking Tobacco: Never Assessed Sex and Gender Information Value Date Recorded Sex Assigned at Male 09/25/2022 10:39 AM EDT Legal Sex Male 10:39 AM EDT Gender Identity Male 09/25/2022 10:39 AM EDT Sexual Orientation Straight 09/25/2022 10 :39 AM EDT documented as of this encounter Plan of Treatment Not on file documented as of this encounter Visit Diagnoses Not on filedocumented in this encounter Care Teams Horticulturalist Relationship Specialty Start Date End Date Kathy Villafana MD [address] [place] [id number] PCP - General Family Medicine 08/05/21 [facility] 12/04/24 documented as of this encounter
--- OUTSIDE RECORDS SUMMARY | 2024-12-24 14:36 | XMS_ITS | Encounter Summary ---
Author Organization [employer] Address [address] [facility] 7t [place] [address] Care Team Providers Care Pile Header Name Role Phone Kathy Villafana MD Primary Care Provider Reason for Visit * Reason Onset Date Comments triage 12/06/2022 Encounter Details Date Type Department Care Team (Late st Contact Info) Description 12/06/2022 Telephone [facility] MEDICINE [address] [place], [place] [phone] Kathy Villafana MD [address] [place], [place] [phone] triage Social History Tobacco Use Types Packs/Day Years Used Date Smoking Tobacco: Never Assessed Sex and Gender Information Value Date Recorded Sex Assigned at Male 09/25/2022 10:39 AM EDT Legal Sex Male 10:39 AM EDT Gender Identity Male 09/25/2022 10:39 AM EDT Sexual Orientation Straight 09/25/2022 10 :39 AM EDT documented as of this encounter Miscellaneous Notes * Telephone Encounter - Pilar Sandhu RN - 12/06/2022 3:31 PM EST Call returned to patient for triage. No answer LVM to return call to [facility] triage line. * Telephone Encounter - Abhishek Herman - 12/06/2022 2:25 PM EST Symptom: Constipation Outcome: Schedule an appointment to be seen within 24 hours Reason: No high acuity concerns reported by caller The caller accepted this outcome speaks wolof documented in this encounter Plan of Treatment Not on file documented as of this encounter Visit Diagnoses Not on filedocumented in this encounter Care Teams Pile Header Relationship Specialty Start Date End Date Kathy Villafana MD [address] [place] [address] PCP - General Family Medicine 08/05/21 [facility] 12/04/24 documented as of this encounter
--- OUTSIDE RECORDS SUMMARY | 2024-12-24 14:36 | XMS_ITS | Encounter Summary ---
Author Organization [employer] Address [address] [facility] [address] 7[address] [place] [address] Care Team Providers Care Compatibility Test Engineer Name Role Phone Kathy Villafana MD Primary Care Provider [phone] Encounter Details Date Type Department Care Team (Latest Contact Info) Description 12/16/2024 Travel Social History Tobacco Use Types Packs/Day Years Used Date Smoking Tobacco: Never Passive Smoke Exposure: Never Smokeless Tobacco: Never Alcohol Use Standard Drinks/Week Comments Never 0 (1 standard drink = 0.6 oz pur e alcohol) Depression Answer Date Recorded Patient Health Questionnaire-9 Score 0 02/20/2024 Patient Health Questionnaire-9 Score 0 02/20/2024 Last PHQ-9: Questionnaire Data Not on file 0 02/20/2024 Housing Stability Answer Date Recorded What is your housing situation today? I have rah vinson 02/20/[address] you li ve. Do you have problems with any of the following? None of the above 02/20/2024 Food Insecurity Answer Date Recorded Within the past 12 months, y ou worried that your food would run out before you got money to buy more: Never True 02/20/2024 Within the past 12 months,th e food you bought just didn't last and you didn't have enough money to get more: Never True Transportation Answer Date Recorded In the past 12 months, has l ack of transportation kept you from medical appts, meetings, work or from getting things needed for daily living? No 02/20/2024 Utilities Answer Date Recorded In the past 12 months, has t he electric, gas, oil or water company threatened to shut off services in your home? No 02/20/2024 Depression Answer Date Recorded Patient Health Questionnaire-2 Score 0 02/20/2024 Sex and Gender Information Value Date Recorded Sex Assigned at Male 09/25/2022 10:39 AM EDT Legal Sex Male 10:39 AM EDT Gender Identity Male 09/25/2022 10:39 AM EDT Sexual Orientation Straight 09/25/2022 10 :39 AM EDT documented as of this encounter Plan of Treatment Not on file documented as of this encounter Visit Diagnoses Not on filedocumented in this encounter Additional Health Concerns Assessment Noted Time PHQ-9 Depression Total Score: 0 02/20/20 24 2:34 PM EDT documented as of this encounter Care Teams Compatibility Test Engineer Relationship Specialty Start Date End Date Kathy Villafana MD [address] [place] [id number] PCP - General Family Medicine 08/05/21 [facility] 12/04/24 documented as of this encounter
--- OUTSIDE RECORDS SUMMARY | 2024-12-24 14:36 | XMS_ITS | Encounter Summary ---
Author Organization [employer] Address [address] 7[address] [place] [address] Care Team Providers Care Receiving Coordinator Name Role Phone Kathy Villafana MD Primary Care Provider [phone] Reason for Visit * Reason Onset Date Comments Hospital Follow-up 06/05/2024 Encounter Details Date Type Department Care Team ([facility] st Contact Info) Description 06/05/2024 Telephone [facility] MEDICINE [address] [place], [place] [phone] Kathy Villafana MD [address] [place], [place] [phone] Hospital Follow-up Social History Tobacco Use Types Packs/Day Years [...] encounter Miscellaneous Notes * Telephone Encounter - Gelacio Corcoran - 06/05/2024 11:29 AM EDT Tc from pt requesting a HDF appt. Hospital: [facility] Date of admission: 05/19 Discharge date: 05/21 Diagnosed: Fever and swelling documented in this encounter Plan of Treatment Not on file documented as of this encounter Visit Diagnoses Not on filedocumented in this encounter Additional Health Concerns Assessment Noted Time PHQ-9 Depression Total Score: 0 02/20/20 24 2:34 PM EDT documented as of this encounter Care Teams Receiving Coordinator Relationship Specialty Start Date End Date Kathy Villafana MD [address] [place] [id number] PCP - General Family Medicine 08/05/21 [facility] 12/04/24 documented as of this encounter
--- OUTSIDE RECORDS SUMMARY | 2024-12-24 14:36 | XMS_ITS | Encounter Summary ---
Author Organization [employer] Address 75 [facility] 7t [place] [address] Care Team Providers Care Licensed Therapist Name Role Phone Kathy Villafana MD Primary Care Provider Reason for Visit * Reason Comments Med Refill Encounter Details Date Type Department Care Team ([facility] st Contact Info) Description 05/24/2023 Refill [facility] MEDICINE 230 [place], [place] [phone] Kathy Villafana MD [address] [place], [place] [phone] Social History Tobacco Use Types Packs/Day Years Used Date Smoking Tobacco: Never Passive Smoke Exposure: Never Smokeless Tobacco: Never Alcohol Use Standard Drinks/Week Comments Never 0 (1 standard drink = 0.6 oz pur e alcohol) Depression Answer Date Recorded Patient Health Questionnaire-9 Score 0 01/22/2023 Depression Answer Date Recorded Patient Health Questionnaire-2 Score 0 01/22/2023 Sex and Gender Information Value Date Recorded Sex Assigned at Male 09/25/2022 10:39 AM EDT Legal Sex Male 10:39 AM EDT Gender Identity Male 09/25/2022 10:39 AM EDT Sexual Orientation Straight 09/25/2022 10 :39 AM EDT COVID-19 Exposure Response Date Recorded In the last 10 days, have yo u been in contact with someone who was confirmed or suspected to have Coronavirus/COVID-19? No / Unsure 05/21/2023 2:28 PM EDT documented as of this encounter Plan of Treatment Not on file documented as of this encounter Visit Diagnoses Not on filedocumented in this encounter Additional Health Concerns Assessment Noted Time PHQ-9 Depression Total Score: 0 01/22/20 23 3:42 PM EST documented as of this encounter Care Teams Licensed Therapist Relationship Specialty Start Date End Date Kathy Villafana MD [address] [place] [address] PCP - General Family Medicine 08/05/21 [facility] 12/04/24 documented as of this encounter
--- OUTSIDE RECORDS SUMMARY | 2024-12-24 14:36 | XMS_ITS | Encounter Summary ---
Author Organization [employer] Address [address] [facility] [address] 7[address] [place] [address] Care Team Providers Care Promotion Specialist Name Role Phone Kathy Villafana MD Primary Care Provider [phone] Reason for Visit * Reason Onset Date Comments Prior Authorization 11/17/2024 Encounter Details Date Type Department Care Team ([facility] st Contact Info) Description 11/17/2024 Telephone [facility] MEDICINE 230 [place], [place] [phone] Eliza Field RN [address] [place] [address] Prior Authorization Social History Tobacco Use Types Packs/Day Years [...] encounter Miscellaneous Notes * Telephone Encounter - Eliza Field RN - 11/27/2024 3:14 PM EST Faxed signed PA packet to [facility] as below * Telephone Encounter - Eliza Field RN - 11/17/2024 10:49 AM EST Received request from pharmacy for [employer] 2 reader and supplies PA. PA packet completed and placed on prescriber's desk. Pending signature. documented in this encounter Plan of Treatment Not on file documented as of this encounter Visit Diagnoses Not on filedocumented in this encounter Additional Health Concerns Assessment Noted Time PHQ-9 Depression Total Score: 0 02/20/20 24 2:34 PM EDT documented as of this encounter Care Teams Promotion Specialist Relationship Specialty Start Date End Date Kathy Villafana MD [address] [place] [address] PCP - General Family Medicine 08/05/21 documented as of this encounter
--- OUTSIDE RECORDS SUMMARY | 2024-12-24 14:36 | XMS_ITS | Encounter Summary ---
Author Organization [employer] Address [address] [facility] 7t [place] [address] Care Team Providers Care Culinary Artist Name Role Phone Kathy Villafana MD Primary Care Provider [phone] Encounter Details Date Type Department Care Team (Late st Contact Info) Description 05/22/2023 Abstract [facility] [address] [place], [place] [phone] Tr Tay DDS [address] [place], [place] [phone] Social History Tobacco Use Types Packs/Day Years [...] documented as of this encounter Care Teams Culinary Artist Relationship Specialty Start Date End Date Kathy Villafana MD [address] [place] [address] PCP - General Family Medicine 08/05/21 [facility] 12/04/24 documented as of this encounter
--- OUTSIDE RECORDS SUMMARY | 2024-12-24 14:36 | XMS_ITS | Encounter Summary ---
Author Organization [employer] Address [address] [facility] [address] 7[address] [place] [address] Care Team Providers Care Epic Application Coordinator Name Role Phone Kathy Villafana MD Primary Care Provider [phone] Encounter Details Date Type Department Care Team (Latest Contact Info) Description 12/16/2024 9:15 AM EST [address] [facility] MEDICINE [address] [place], [place] [phone] Kathy Villafana MD [address] [place], [place] [phone] Chronic renal disease, stage IV (CMS/HCC) (Primary Dx); CKD stage 3 secondary to diabetes (CMS/HCC); RSV (acute bronchiolitis due to respiratory syncytial virus) Social History Tobacco Use Types Packs/Day Years [...] AM EDT documented as of this encounter Progress Notes * Kathy Villafana MD - 12/16/2024 9:15 AM EST SUBJECTIVE: Dayton Forrest is a 79 y.o. year old male who presents for hospital discharge followup . Denies recent illness, ER visit, or hospitalization. Patient unable to make it to clinic due to subzero temperatures. We discussed the following with his caregiver, mike Hadley. Cough remains from RSV. Will send Tessalon proVITAL. Need to check BMP to evaluate ability to tolerate Entresto and SGLT2. Familycan bring patient in next week. Acute Concerns: Pharmacy Recommendations for provider: Please follow up on BP management following decrease in amlodipine and bumetanide Per discharge, please consider ordering BMP to monitor renal fx and assess appropriateness of starting an LEI/ARB or Entresto due to patient h/o HF Per 2021 AHA/ACC/HFSA HF guidelines, in patients with symptomatic HFrEF, SGLT2i are recommended to reduce hospitalization for HF and CV mortality. If eGFR remains >25 ml/min/1.73m2 consider initiation of Farxiga 10 mg once daily Background Pharmacist Shama Winter, LenyD and pharmacy stock clerk Regulo Mitchlel contacted patient to discuss upcoming hospital discharge visit for NSTEMI, CHF : Future Appointments Date Time Provider Department Center 12/16/2024 9:15 AM Kathy Villafana MD MEDICINE [facility] Hospital Course and Medication Reconciliation [facility] (11/27/24-12/03/24) Patient presented for evaluation of cough and chest discomfort. Tested positive for RSV. Admitted for management of RSV and hypoxia. Patient was progressing well until the morning of 11/28 where they became more SOB and workup showed acute NSTEMI and HF. Patient received aspirin, metoprolol, statin and IV heparin x 48 hours. HF treated with diuresis. Nephrology recommended switching to bumetanide 1mg once daily and holding LEI/ARB for now. Cardiology recommended cutting amlodipine slowly and adjusted isosorbide dose. Noted to have urinary retention, montelongo catheter removed and patient was urinating small amounts. Started on tamsulosin. Patient discharged home, family declined rehab, to followup with cardiology and urology. Medication changes that occurred during hospitalization include: Added Isosorbide mononitrate ER 60 mg once daily Aspirin 81 mg once daily Tamsulosin 0.4 mg at bedtime Changed Amlodipine 5 mg once daily decreased to 2.5 mg once daily Bumetanide 1 mg twice a day decreased to 1 mg once daily Discontinued: none Preferred Pharmacy: [facility] - [place], [place] - [address] [facility] [address] [facility] [id number] [facility]: Yes Date: 11/17/24 Patient Reported History Spoke with patient's son (HIPAA) who reported all changes were communicated to [facility] who explained which medications patient is to remove from [facility] until they can be updated Reported patient has a follow up with cardiology on 01/05/25 and a follow up on 12/29/24 however unsure what provider that is with Confirmed and agreeable to HDF appointment as listed above Pharmacist Notes Per [employer], there is conflicting primary literature on the use of aspirin (for secondary prevention of ASCVD) with Eliquis. It may be reasonable to use both, however the risk of bleeding-related AEis increased Discrepancy: Per discharge summary they were holding patients LEI/ARB however patient is currently on an LEI/ARB Immunizations The MIIS database was reconciled and patient is indicated for the following immunizations: COVID-19, Influenza (annual), PCV20, RSV (age > 75 yo), Shingrix series (age > 50 yo), and Tetanus (q10 yrs) , HepB Patient Active Problem List Diagnosis Alzheimer's disease ([facility]/HCC) Atrial fibrillation ([facility]/HCC) Type 2 diabetes mellitus with diabetic neuropathy, unspecified ([facility]) Frequent fecal incontinence Gastroesophageal reflux disease History of non-ST elevation myocardial infarction (NSTEMI) Hyperlipidemia Right flank pain Type 2 diabetes mellitus ([facility]/HCC) Urinary incontinence CKD stage 3 secondary to diabetes (CMS/HCC) Generalized edema Hypertension Chronic periodontitis Seborrheic dermatitis Poor mobility Upper GI bleed Type 2 diabetes mellitus with diabetic chronic kidney disease ([facility]/HCC) Hospital discharge follow-up Sebaceous cyst Chronic midline 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 Social History Social History Narrative Lives with son and [id number] and two grandchildren ASSESSMENT/PLAN Problem List Items Addressed This Visit CKD stage 3 secondary to diabetes ([facility]/HCC) Chronic renal disease, stage IV ([facility]/HCC) - Primary Relevant Orders Basic Metabolic Panel Other Visit Diagnoses RSV (acute bronchiolitis due to respiratory syncytial virus) Relevant Medications benzonatate (Tessalon Perles) 100 MG capsule Follow Up: per recall with me or sooner prn No Known Allergies Current Outpatient Medications: Acetaminophen Extra Strength 500 MG tablet, Take 500 mg by mouth every 6 (six) hours if needed., Disp: , Rfl: Alcohol Swabs (Alcohol Prep) 70 % pads, USE DIRECTED THREE TIMES DAILY, Disp: 100 each, Rfl: 11 allopurinol (Zyloprim) 100 MG tablet, TAKE 1/2 TABLET BY MOUTH EVERY MORNING (GOUT), Disp: 45 tablet, Rfl: 3 amLODIPine (Norvasc) 5 MG tablet, Take 0.5 tablets (2.5 mg) by mouth Once per day., Disp: 15 tablet, Rfl: 0 apixaban (Eliquis) 5 MG tablet, TAKE 1 TABLET BY MOUTH TWICE DAILY IN THE MORNING AND IN THE EVENING, Disp: 60 tablet, Rfl: 6 atorvastatin (Lipitor) 40 MG tablet, TAKE 1 TABLET BY MOUTH AT BEDTIME, Disp: 90 tablet, Rfl: 3 benzonatate (Tessalon Perles) 100 MG capsule, Take 1 capsule (100 mg) by mouth if needed in the morning, at noon, and at bedtime for cough for up to 7 days. Do not crush or chew., Disp: 20 capsule, Rfl: 0 Blood Pressure Monitor kit, to monitor blood pressure daily, Disp: , Rfl: bumetanide (Bumex) 1 MG tablet, Take 1 tablet (1 mg) by mouth Once per day., Disp: 30 tablet, Rfl: 0 cetirizine (ZyrTEC) 10 MG tablet, TAKE 1 TABLET BY MOUTH EVERY MORNING, Disp: 90 tablet, Rfl: 0 Clotrimazole Anti-Fungal 1 % cream, APPLY TOPICALLY TO AFFECTED AREA(S) TWICE DAILY FOR 28 DAYS, Disp: , Rfl: Continuous Glucose Director Of Cath Lab ([place] 2 [place]) device, Scan sensor every 8 hours, Disp: 1 each, Rfl: 0 Continuous Glucose Sensor ([place] 2 Sensor) [facility] [place], Apply 1 sensor every 14 days, Disp: 2 each, Rfl: 0 CVS Aspirin Adult Low Dose 81 MG chewable tablet, Chew 1 tablet (81 mg) Once per day., Disp: 30 tablet, Rfl: 0 Diclofenac Sodium 1 % gel, Use twice daily affected areas, Disp: 150 g, Rfl: 0 diphenhydrAMINE (Nell-Dryl) 25 MG tablet, TAKE 1/2 TABLET BY MOUTH AT BEDTIME NEEDED, Disp: 90 tablet, Rfl: 3 donepezil (Aricept) 10 MG tablet, TAKE 1 TABLET BY MOUTH AT BEDTIME, Disp: 90 tablet, Rfl: 0 FREESTYLE LITE test strip, TEST BLOOD SUGAR 3 TIMES A DAY, Disp: 100 strip, Rfl: 11 FT ClearLax 17 GM/SCOOP powder, TAKE 17 GM MIXED IN 8 OUNCES OF WATER ONCE DAILY FOR FOURTEEN DAYS,Disp: , Rfl: gabapentin (Neurontin) 800 MG tablet, Take 1 tablet (800 mg) by mouth 2 times daily., Disp: 180 tablet, Rfl: 3 Nell-Lanta 200-200-20 MG/5ML oral suspension, TAKE 5 ML BY MOUTH EVERY 6 HOURS NEEDED FOR INDIGESTION FOR UP TO 10 DAYS., Disp: 355 mL, Rfl: 3 glucose 4 g chewable tablet, CHEW 4 TABLETS NEEDED FOR low blood sugar (LESS THAN 70mg/dL), Disp: , Rfl: hydrocortisone 2.5 % cream, APPLY A THIN LAYER TO AFFECTED AREA(S) TWICE DAILY por 10-14 DAYS DIRECTED, Disp: , Rfl: insulin aspart protamine-insulin aspart (NovoLOG MIX 70/30) (70-30) 100 UNIT/ML injection, INJECT 76 UNITS SUBCUTANEOUSLY WITH BREAKFAST, AND INJECT 76 UNITS SUBCUTANEOUSLY WITH DINNER, Disp: 50 mL, Rfl: 11 isosorbide mononitrate ER (Imdur) 60 MG 24 hr tablet, Take 1 tablet (60 mg) by mouth Once per day.,Disp: 30 tablet, Rfl: 0 ketoconazole (NIZOral) 2 % shampoo, APPLY TOPICALLY TO SCALP AND alrededor de las orejas THEN RINSETWICE A WEEK, Disp: 120 mL, Rfl: 6 magnesium oxide 250 MG tablet, TAKE 1 TABLET BY MOUTH EVERY MORNING, Disp: 90 tablet, Rfl: 0 memantine (Namenda) 10 MG tablet, Take 1 tablet (10 mg) by mouth 2 times daily. TAKE 1 TABLET BY MOUTH TWICE DAILY IN THE MORNING AND IN THE EVENING, Disp: 180 tablet, Rfl: 3 metoprolol tartrate (Lopressor) 100 MG tablet, TAKE 1 TABLET BY MOUTH TWICE DAILY IN THE MORNING AND IN THE EVENING WITH FOOD, Disp: 180 tablet, Rfl: 0 Misc. Devices (Pulse Oximeter) misc, 1 each if needed in the morning, at noon, in the evening, and at bedtime (shortness of breath)., Disp: 1 each, Rfl: 0 Multiple Vitamins-Minerals (CertaVite Senior/Antioxidant) tablet, TAKE 1 TABLET BY MOUTH EVERY MORNING, Disp: 90 tablet, Rfl: 0 omeprazole (PriLOSEC) [address] capsule, Take 1 capsule by mouth 2 times daily., Disp: , Rfl: OneLax Magnesium Citrate oral solution, leland botella completa amy vez NEEDED FOR CONSTIPATION, Disp: , Rfl: Petrolatum 42 % ointment, APPLY TOPICALLY NEEDED FOR DRY SKIN, Disp: 100 g, Rfl: 3 Refresh Tears 0.5 % ophthalmic solution, PLACE 1 DROP IN EACH EYE EVERY 4 TO 6 HOURS FOR REDNESS, Disp: , Rfl: sucralfate (Carafate) 1 g tablet, TAKE 1 TABLET BY MOUTH THREE TIMES DAILY IN THE MORNING, AT NOON,AND IN THE EVENING BEFORE MEALS, Disp: 90 tablet, Rfl: 3 tamsulosin (Flomax) 0.4 MG 24 hr capsule, Take 1 capsule (0.4 mg) by mouth at bedtime., Disp: 30 capsule, Rfl: 0 triamcinolone (Kenalog) 0.1 % cream, APPLY TOPICALLY TWICE DAILY, Disp: 30 g, Rfl: 3 TRUEplus Lancets 33G misc, TEST BLOOD SUGAR THREE TIMES DAILY, Disp: 100 each, Rfl: 11 UltiCare Insulin Syringe 31G X 5/16 1 ML misc, USE DIRECTED TWICE DAILY, Disp: 100 each, Rfl: 11 Amharic Translation: Provided by [facility] staff member HANNA Da Silva documented in this encounter Plan of Treatment Scheduled Orders Name Type Priority Associated Diagnoses Orde r Schedule Basic Metabolic Panel Lab Routine Chronic renal disease, stage IV (CMS/HCC) Expected: 12/16/2024 (Approximate), Expires: 12/16/2025 documented as of this encounter Visit Diagnoses Diagnosis Chronic renal disease, stage IV (CMS/HCC)- Primary Chronic kidney disease, Stage IV (severe) CKD stage 3 secondary to diabetes (CMS/HCC) RSV (acute bronchiolitis due to respiratory syncytial virus) Acute bronchiolitis due to respiratory syncytial virus (RSV) documented in this encounter Additional Health Concerns Assessment Noted Time PHQ-9 Depression Total Score: 0 02/20/20 24 2:34 PM EDT documented as of this encounter Care Teams Epic Application Coordinator Relationship Specialty Start Date End Date Kathy Villafana MD [address] [place] [id number] PCP - General Family Medicine 08/05/21 [facility] 12/04/24 documented as of this encounter
--- OUTSIDE RECORDS SUMMARY | 2024-12-24 14:36 | XMS_ITS | Encounter Summary ---
Author Organization [employer] Address [address] [facility] [address] [place] [address] Care Team Providers Care Channel Opener Outsoles Name Role Phone Kathy Villafana MD Primary Care Provider [phone] Reason for Visit * Reason Onset Date Comments Med Refill 12/16/2024 Encounter Details Date Type Department Care Team (Late st Contact Info) Description 12/16/2024 Refill [facility] [address] [place], [place] [phone] Kathy Villafana MD [address] [place], [place] [phone] Social History Tobacco Use Types Packs/Day Years [...] encounter Miscellaneous Notes * Telephone Encounter - Ady Lucio - 12/16/2024 2:45 PM EST TC from pt requesting medication refill. Medications needing refill : Isosorbide mononitrate ER 60 mg once daily To be sent to: [facility] [address] [place] [phone] documented in this encounter Plan of Treatment Not on file documented as of this encounter Visit Diagnoses Not on filedocumented in this encounter Additional Health Concerns Assessment Noted Time PHQ-9 Depression Total Score: 0 02/20/20 24 2:34 PM EDT documented as of this encounter Care Teams Channel Opener Outsoles Relationship Specialty Start Date End Date Kathy Villafana MD [address] [place] [id number] PCP - General Family Medicine 08/05/21 [facility] 12/04/24 documented as of this encounter
--- OUTSIDE RECORDS SUMMARY | 2024-12-24 14:36 | XMS_ITS | Encounter Summary ---
Author Organization [employer] Address [address] [facility] 7t [place] [address] Care Team Providers Care Deicer Finisher Name Role Phone Kathy Villafana MD Primary Care Provider [phone] Reason for Visit * Reason Onset Date Comments difficulty with extraction 05/23/2023 Encounter Details Date Type Department Care Team (Late st Contact Info) Description 05/23/2023 Telephone [facility] D[facility] [address] [place], [place] [phone] Tr Tay DDS [address] [place], [place] [phone] difficulty with extraction Social History Tobacco Use Types Packs/Day Years [...] PM EDT documented as of this encounter Miscellaneous Notes * Telephone Encounter - Sejal Lucas - 05/23/2023 12:[address] Tay due to patient condition he is willing to see patient at any time. No room on PAR end. Can lockstitch front maker help with scheduling . * Telephone Encounter - Sejal Lucas - 05/23/2023 10:09 AM EDT `Patient son called in stating that his father had ext on 05/21 and because he has alzheimers he sucks his lips at night and woke up with a lot of blood on mouth and pillow. He doesn't suck his lips during the day only at night. But due to his condition he cant stop. Son does not see wound healing well. No spot on schedule on PAR side for patient to be seen today. Called lockstitch front maker. Recommended to contact you for insight documented in this encounter Plan of Treatment Not on file documented as of this encounter Visit Diagnoses Not on filedocumented in this encounter Additional Health Concerns Assessment Noted Time PHQ-9 Depression Total Score: 0 01/22/20 23 3:42 PM EST documented as of this encounter Care Teams Deicer Finisher Relationship Specialty Start Date End Date Kathy Villafana MD [address] [place] [id number] PCP - General Family Medicine 08/05/21 [facility] 12/04/24 documented as of this encounter
--- OUTSIDE RECORDS SUMMARY | 2024-12-24 14:36 | XMS_ITS | Encounter Summary ---
Author Organization [employer] [facility] Address [address] [facility] 7t [place] [address] Care Team Providers Care Geriatrician Name Role Phone Kathy Villafana MD Primary Care Provider [phone] Reason for Visit * Reason Comments Med Refill Encounter Details Date Type Department Care Team ([facility] st Contact Info) Description 05/16/2023 Refill [facility] [address] [place], [place] [phone] Kathy Villafana MD [address] [place], [place] [phone] Social History Tobacco Use Types Packs/Day Years [...] documented as of this encounter Care Teams Geriatrician Relationship Specialty Start Date End Date Kathy Villafana MD [address] [place], [place] [phone] PCP - General Family Medicine 08/05/21 [facility] 12/04/24 documented as of this encounter
--- OUTSIDE RECORDS SUMMARY | 2024-12-24 14:36 | XMS_ITS | Encounter Summary ---
Author Organization [employer] Address [address] [facility] 7t [place] [address] Care Team Providers Care Percussion Instructor Name Role Phone Kathy Villafana MD Primary Care Provider [phone] Reason for Visit * Reason Comments Transition Of Care (Tcm) HDF scheduled. Encounter Details Date Type Department Care Team (Late st Contact Info) Description 12/03/2024 Patient Outreach [facility] [address] [place], [place] [phone] Kathy Villafana MD [address] [place] [address] Transition Of Care (Tcm) (HDF scheduled. ) Social History Tobacco Use Types Packs/Day Years [...] as of this encounter Miscellaneous Notes * Significant Event - Cristina Herman - 12/03/2024 2:17 PM EST 12/03/24 1320 Hospital Discharges and Admission for [facility] Type of Visit Hospital Admission Date of Admission/Visit 11/25/24 Date of Discharge 12/03/24 [facility] Diagnosis Accute decompensated heart failure Disposition Discharged Home Follow-Up Actions Follow-Up Needed Provider appointment Follow-Up Outcome Spoke to Patient;Booked Appointment Initial Contact Date 12/03/24 ALONSO Mauricio placed outbound call to patient for HDF outreach. Patient's name and were confirmed. Patient educated on the importance of follow up with provider following inpatient admission. Patient offered an HDF appt. Patient is agreeable to an appointment and has been scheduled for 12/16 at9:15am with Dr. Villafana. Patient provided with education on contacting the Health Center with any questions or concerns prior to the scheduled appointment. Patient educated on extended clinic hours on Mondays and Wednesdays, and Walk-In Urgent Care Located in [facility]. Patient provided with after-hours line for [facility], , which offer night time triage service and option to transfer toon call provider if needed. CC scanned discharge summary into patient's chart. Biggest concern for appointment at this time is no concerns. Appropriate screenings completed in anticipation of appointment. documented in this encounter Plan of Treatment Not on file documented as of this encounter Visit Diagnoses Not on filedocumented in this encounter Additional Health Concerns Assessment Noted Time PHQ-9 Depression Total Score: 0 02/20/20 24 2:34 PM EDT documented as of this encounter Care Teams Percussion Instructor Relationship Specialty Start Date End Date Kathy Villafana MD [address] [place] [address] PCP - General Family Medicine 08/05/21 documented as of this encounter
--- OUTSIDE RECORDS SUMMARY | 2024-12-24 14:36 | XMS_ITS | Encounter Summary ---
Author Organization [employer] Address [address] [facility] [address] [place] [address] Care Team Providers Care Poultry Farm Worker Name Role Phone Kathy Villafana MD Primary Care Provider [phone] Reason for Visit * Reason Onset Date Comments Hospital Follow-up 12/03/2024 Encounter Details Date Type Department Care Team ([facility] st Contact Info) Description 12/03/2024 Telephone [facility] [address] [place], [place] [phone] Kathy Villafana MD [address] [place], [place] [phone] Hospital Follow-up Social History Tobacco Use Types [...] encounter Miscellaneous Notes * Telephone Encounter - Sapphire Zapien - 12/03/2024 12:43 PM EST Tc from pt requesting a HDF appt. Hospital: [facility] Date of admission: 11/25/2024 Discharge date: 12/03/2024 Diagnosed: Heart Attack *Send message to [facility] Coordinators documented in this encounter Plan of Treatment Not on file documented as of this encounter Visit Diagnoses Not on filedocumented in this encounter Additional Health Concerns Assessment Noted Time PHQ-9 Depression Total Score: 0 02/20/20 24 2:34 PM EDT documented as of this encounter Care Teams Poultry Farm Worker Relationship Specialty Start Date End Date Kathy Villafana MD [address] [place] [address] PCP - General Family Medicine 08/05/21 [facility] 12/04/24 documented as of this encounter
--- OUTSIDE RECORDS SUMMARY | 2024-12-24 14:36 | XMS_ITS | Encounter Summary ---
Author Organization [employer] Address [address] [facility] 7t [place] [address] Care Team Providers Care Neuro Urologist Name Role Phone Kathy Villafana MD Primary Care Provider [phone] Encounter Details Date Type Department Care Team (Late st Contact Info) Description 01/12/2023 Orders Only [facility] PEDS [address] [place] [address] Mary Ann Skaggs LPN Social History Tobacco [...] on filedocumented in this encounter Care Teams Neuro Urologist Relationship Specialty Start Date End Date Kathy Villafana MD [address] [place] [id number] PCP - General Family Medicine 08/05/21 [facility] 12/04/24 documented as of this encounter
--- OUTSIDE RECORDS SUMMARY | 2024-12-24 14:36 | XMS_ITS | Encounter Summary ---
Author Organization [employer] Address [address] [facility] 7t [place] [address] Care Team Providers Care Professor Of Journalism Name Role Phone Kathy Villafana MD Primary Care Provider [phone] Encounter Details Date Type Department Care Team (Late st Contact Info) Description 12/09/2024 Refill [facility] [address] [place], [place] [phone] Shama Winter PharmD [address] [place], [place] [phone] Social History Tobacco Use Types Packs/Day Years [...] encounter Miscellaneous Notes * Telephone Encounter - Shama iWnter PharmD - 12/09/2024 3:54 PM EST Patient discharged on isosorbide, aspirin, tamsulosin, reduced doses of amlodipine and bumetanide. Please consider sending short term prescriptions to allow for [facility] to be updated. Thank you! documented in this encounter Plan of Treatment Not on file documented as of this encounter Visit Diagnoses Not on filedocumented in this encounter Additional Health Concerns Assessment Noted Time PHQ-9 Depression Total Score: 0 02/20/20 24 2:34 PM EDT documented as of this encounter Care Teams Professor Of Journalism Relationship Specialty Start Date End Date Kathy Villafana MD [address] [place] [address] PCP - General Family Medicine 08/05/21 [facility] 12/04/24 documented as of this encounter
--- OUTSIDE RECORDS SUMMARY | 2024-12-24 14:36 | XMS_ITS | Encounter Summary ---
Author Organization [employer] Address [address] [facility] 7t [place] [address] Care Team Providers Care Pole Setter Name Role Phone Kathy Villafana MD Primary Care Provider [phone] Reason for Visit * Reason Comments Med Refill Encounter Details Date Type Department Care Team (Late st Contact Info) Description 12/01/2022 Refill [facility] [address] [place], [place] [phone] Kathy Villafana MD [address] [place], [place] [phone] Type 2 diabetes mellitus with hyperglycemia, with long-term current use of insulin (CMS/[facility]) Social History Tobacco Use Types Packs/Day Years [...] as of this encounter Visit Diagnoses Diagnosis Type 2 diabetes mellitus with hyperglycemia, with long-term current use of insulin (CMS/HCC) documented in this encounter Care Teams Pole Setter Relationship Specialty Start Date End Date Kathy Villafana MD [address] [place], [place] [phone] PCP - General Family Medicine 08/05/21 [facility] 12/04/24 documented as of this encounter
--- OUTSIDE RECORDS SUMMARY | 2024-12-24 14:36 | XMS_ITS | Clinical Summary ---
Author Organization [employer] Address [address] [facility] [address] [place] [address] Care Team Providers Care [facility] Aides Teacher Name Role Phone Kathy Villafana MD Primary Care Provider [phone] Allergies No known active allergies Medications Blood Pressure Monitor kit to monitor blood pressure daily Active Acetaminophen Extra Strength 500 MG tablet Take 500 mg by mouth every 6 (six) hours if needed. Active Refresh Tears 0.5 % ophthalmic solution PLACE 1 DROP IN EACH EYE EVERY 4 TO 6 HOURS FOR REDNESS Active glucose 4 g chewable tablet CHEW 4 TABLETS NEEDED FOR low blood sugar (LESS THAN 70mg/dL) Active hydrocortisone 2.5 % cream APPLY A THIN LAYER TO AFFECTED AREA(S) TWICE DAILY por 10-14 DAYS DIRECTED Active Clotrimazole Anti-Fungal 1 % cream APPLY TOPICALLY TO AFFECTED AREA(S) TWICE DAILY FOR 28 DAYS Active Misc. Devices (Pulse Oximeter) misc 1 each if needed in the morning, at noon, in the evening, and at bedtime (shortness of breath). 1 each Active TRUEplus Lancets 33G miscIndications: Type 2 diabetes mellitus with hyperglycemia, with long-term current use of insulin ([facility]) TEST BLOOD SUGAR THREE TIMES DAILY 100 each Active gabapentin (Neurontin) 800 MG tablet Take 1 tablet (800 mg) by mouth 2 times daily. 180 tablet 3 024 2024 Active ketoconazole (NIZOral) 2 % shampoo APPLY TOPICALLY TO SCALP AND alrededor de las orejas THEN RINSE TWICE A WEEK 120 mL Active diphenhydrAMINE (Nell-Dryl) 25 MG tablet TAKE 1/2 TABLET BY MOUTH AT BEDTIME NEEDED 90 tablet Active insulin aspart protamine-insuli n aspart (NovoLOG MIX 70/30) (70-30) 100 UNIT/ML injectionIndicat ions:Type 2 diabetes mellitus without complication, with long-term current use of insulin ([facility]) INJECT 76 UNITS SUBCUTANEOUSLY WITH BREAKFAST, AND INJECT 76 UNITS SUBCUTANEOUSLY WITH DINNER 50 mL Active FREESTYLE LITE test strip TEST BLOOD SUGAR 3 TIMES A DAY 100 strip Active allopurinol (Zyloprim) 100 MG tablet TAKE 1/2 TABLET BY MOUTH EVERY MORNING (GOUT) 45 tablet 3 Active Petrolatum 42 % ointment APPLY TOPICALLY NEEDED FOR DRY SKIN 100 g Active Diclofenac Sodium 1 % gelIndications:C hronic midline low back pain without sciatica Use twice daily affected areas 150 g 024 Active Continuous Glucose Events Director (FreeStyle Park 2 Greenleaf) deviceIndication s:Type 2 diabetes mellitus with diabetic neuropathy, with long-term current use of insulin ([facility]) Scan sensor every 8 hours 1 each Active Continuous Glucose Sensor (FreeStyle Park 2 Sensor) miscIndications: Type 2 diabetes mellitus with diabetic neuropathy, with long-term current use of insulin ([facility]) Apply 1 sensor every 14 days 2 each 024 Active apixaban (Eliquis) 5 MG tabletIndication s:Atrial fibrillation, unspecified type ([facility]) TAKE 1 TABLET BY MOUTH TWICE DAILY IN THE MORNING AND IN THE EVENING 60 tablet 6 Active UltiCare Insulin Syringe 31G X 5/16 1 ML misc USE DIRECTED TWICE DAILY 100 each Active triamcinolone (Kenalog) 0.1 % creamIndications :Rash APPLY TOPICALLY TWICE DAILY 30 g 3 024 Active Nell-Lanta 200-200-20 MG/5ML oral suspension TAKE 5 ML BY MOUTH EVERY 6 HOURS NEEDED FOR INDIGESTION FOR UP TO 10 DAYS. 355 mL 3 Active OneLax Magnesium Citrate oral solution leland botella completa amy vez NEEDED FOR CONSTIPATION Active FT ClearLax 17 GM/SCOOP powder TAKE 17 GM MIXED IN 8 OUNCES OF WATER ONCE DAILY FOR FOURTEEN DAYS Active memantine (Namenda) 10 MG tablet Take 1 tablet (10 mg) by mouth 2 times daily. TAKE 1 TABLET BY MOUTH TWICE DAILY IN THE MORNING AND IN THE EVENING 180 tablet 3 Active sucralfate (Carafate) 1 g tablet TAKE 1 TABLET BY MOUTH THREE TIMES DAILY IN THE MORNING, AT NOON, AND IN THE EVENING BEFORE MEALS 90 tablet 3 Active Alcohol Swabs (Alcohol Prep) 70 % pads USE DIRECTED THREE TIMES DAILY 100 each 11 Active donepezil (Aricept) 10 MG tablet TAKE 1 TABLET BY MOUTH AT BEDTIME 90 tablet Active cetirizine (ZyrTEC) 10 MG tablet TAKE 1 TABLET BY MOUTH EVERY MORNING 90 tablet Active metoprolol tartrate (Lopressor) 100 MG tablet TAKE 1 TABLET BY MOUTH TWICE DAILY IN THE MORNING AND IN THE EVENING WITH FOOD 180 tablet Active Multiple Vitamins-Mineral s (CertaVite Senior/Antioxida nt) tablet TAKE 1 TABLET BY MOUTH EVERY MORNING 90 tablet Active magnesium oxide 250 MG tablet TAKE 1 TABLET BY MOUTH EVERY MORNING 90 tablet Active atorvastatin (Lipitor) 40 MG tabletIndication s:Other hyperlipidemia TAKE 1 TABLET BY MOUTH AT BEDTIME 90 tablet 3 Active omeprazole (PriLOSEC) [address] capsule Take 1 capsule by mouth 2 times daily. Active amLODIPine (Norvasc) 5 MG tablet Take 0.5 tablets (2.5 mg) by mouth Once per day. 15 tablet Active bumetanide (Bumex) 1 MG tablet Take 1 tablet (1 mg) by mouth Once per day. 30 tablet Active [facility] Aspirin Adult Low Dose 81 MG chewable tablet Chew 1 tablet (81 mg) Once per day. 30 tablet 01/14/2 025 Active tamsulosin (Flomax) 0.4 MG 24 hr capsule Take 1 capsule (0.4 mg) by mouth at bedtime. 30 capsule 025 Active isosorbide mononitrate ER (Imdur) 60 MG 24 hr tablet Take 1 tablet (60 mg) by mouth Once per day. 30 tablet 025 Active bumetanide (Bumex) 1 MG tablet Take 1 tablet by mouth Once per day. 023 2024 Discontinued(R eorder (will not trigger notification to Pharmacy)) triamcinolone (Kenalog) 0.5 % ointment APPLY TOPICALLY TO AFFECTED AREA(S) TWICE DAILY 023 2024 Discontinued(M ed list cleanup (will not trigger notification to Pharmacy)) atorvastatin (Lipitor) 40 MG tabletIndication s:Other hyperlipidemia TAKE 1 TABLET BY MOUTH AT BEDTIME 90 tablet 3 024 2024 Discontinued Omeprazole 20 MG tablet delayed-release Take 20 mg by mouth 2 times daily. 180 tablet 3 024 2024 Discontinued(M ed list cleanup (will not trigger notification to Pharmacy)) amLODIPine (Norvasc) 5 MG tablet TAKE 1 TABLET BY MOUTH EVERY MORNING 90 tablet 3 024 2024 Discontinued(M ed list cleanup (will not trigger notification to Pharmacy)) [facility] Aspirin Adult Low Dose 81 MG chewable tablet Chew 1 tablet Once per day. 025 2024 Discontinued(R eorder (will not trigger notification to Pharmacy)) isosorbide mononitrate ER (Imdur) 60 MG 24 hr tablet Take 1 tablet by mouth Once per day. 025 2024 Discontinued(R eorder (will not trigger notification to Pharmacy)) tamsulosin (Flomax) 0.4 MG 24 hr capsule Take 1 capsule by mouth at bedtime. 025 2024 Discontinued(R eorder (will not trigger notification to Pharmacy)) amLODIPine (Norvasc) 5 MG tablet Take 0.5 tablets by mouth Once per day. 2024 Discontinued(R eorder (will not trigger notification to Pharmacy)) isosorbide mononitrate ER (Imdur) 60 MG 24 hr tablet Take 1 tablet (60 mg) by mouth Once per day. 30 tablet 025 2024 Discontinued(R eorder (will not trigger notification to Pharmacy)) benzonatate (Tessalon Perles) 100 MG capsuleIndicatio ns:RSV (acute bronchiolitis due to respiratory syncytial virus) Take 1 capsule (100 mg) by mouth if needed in the morning, at noon, and at bedtime for cough for up to 7 days. Do not crush or chew. 20 capsule 025 2024 Active Problems Problem Noted Date Diagnosed Date Chronic renal disease, stage IV 12/16/2024 Obesity, morbid 09/26/2024 Hospital discharge follow-up 07/10/2024 Assessment & Plan (07/10/2024 4:07 PM EDT): Patient of Dr. Villafana, here for a HDF Admitted to [facility] from 05/17-05/19/2024 Patient presented c/o dizziness and generalized weakness, found to be febrile at 100.5 F with a lactic acid of 4.3 mmol/l. The presentation was thought to be likely viral, and his orthostatic hypotension resolved with IVF. Patient subsequently was discharged home. Patient presented subsequently to the ER 06/26/2024 for evaluation of bloody stools. Thought to be most likely due to internal hemorrhoids as patient also reported constipation. Patient discharged home with Miralax, magnesium citrated and hydrocortisone suppository. Pt here accompanied by his family who report patient is doing well, constipation improved and rectal bleeding stopped. Otherwise he is back to baseline Sebaceous cyst 07/10/2024 Assessment & Plan (07/10/2024 4:10 PM EDT): Pt with a hx of recurrent sebaceous cysts on his back, his care transitions manager recently drained one and although there is no active drainage, there is some redness around the point of exit. 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 Patient does not have a severe neuromuscular disease. Patient is completely incapable of standing up from a regular arm chair or any chair in his/her home. Once standing, the patient is able to ambulate with assistance and has tried all the appropriate therapeutic modalities to enable the patient to transfer from a chair to a standing position been tried and failed. Needs PT/OT referral for assessment of medical necessity Assessment & Plan (06/15/2023 5:55 AM EDT): This patient has a mobility limitation that significantly impairs their ability to participate in one or more mobility-related activities of daily living (toileting, feeding, dressing, grooming & bathing in customary locations in the home). This mobility limitation cannot be sufficiently resolved by the use of an appropriately fitted cane or walker.Patient has decreased upper extremity strength, hence is not able to meet his/her needs with a manual wheelchair. Diagnosis: Patient is willing and motivated to use a power mobility device at home. Power mobility device is necessary in the home to get to (MRADLs). Patient has sufficient strength and postural stability to operate a scooter. Patient is able to operate scooter tiller Patient will be referred to PT/OT clinic for [id number] examination, and after evaluation by PT/OT will order a power mobility device. Chronic periodontitis 05/21/2023 Alzheimer's disease 01/22/2023 Assessment & Plan (05/21/2024 10:21 AM EDT): Continue Donepezil 10mg and Memantine 10mg daily Son is [employer], needs assistance with paperwork for medical power or engineering consultant Decided against medical guardianship due to fears he would become responsible for debts of his father Continue day/night cycles Continue gentle redirection during hallucinations Assessment & Plan (06/15/2023 6:06 AM EDT): Continue Donepezil 10mg and Memantine 10mg daily Son is [employer], needs assistance with paperwork for medical power or engineering consultant Decided against medical guardianship due to fears he would become responsible for debts of his father Continue day/night cycles Continue gentle redirection during hallucinations Assessment & Plan (01/25/2023 1:02 PM EST): Continue Donepezil 10mg Son is [employer] and medical power or engineering consultant Atrial fibrillation 01/22/2023 Assessment & Plan (01/25/2023 1:02 PM EST): Continue Eliquis 5mg daily for anticoagulation Type 2 diabetes mellitus wit h diabetic neuropathy, unspecified 01/22/2023 Gastroesophageal reflux disease 01/22/2023 History of non-ST elevation myocardial infarctio n (NSTEMI) 01/22/2023 Hyperlipidemia 01/22/2023 Right flank pain 01/22/2023 Type 2 diabetes mellitus 01/22/2023 Assessment & Plan (09/26/2024 4:16 PM EDT): Current A1c: 8.8 BMP: Cr 1.9 - 2.3 Microalbumin: Foot Exam: failed, referred to podiatry Eye Exam: Due Lipid panel: LDL 78 Lab Results Component Value Date LDLCHOL 60 09/28/2021 ASCVD: Calculate pending updated labs Statin: Yes ASA: No, on Eliquis for afib LEI/ARB: No Encouraged regular aerobic exercise for improved glycemic control Encouraged daily foot checks Encouraged lean protein snacks and to avoid foods high in sugar and simple carbohydrates Treatment Goals: A1c goal: <8% FBG goal: <150 2 hour post prandial goal: <220 Assessment & Plan (07/10/2024 4:09 PM EDT): Patient's family requesting a freestyle park meter so he does not have to prick his fingers Script sent to Pharmacy Blood sugar today elevated Hgb A1c 8.6 which is an improvement from previous one, did not bring his glucometer so no changes until he does. Pt already has a follow up with PCP Assessment & Plan (02/22/2024 2:47 PM EDT): Current A1c: 8.8 BMP: Cr 2.0-2.4 baseline Microalbumin: Foot Exam: failed, referred to podiatry Eye Exam: Discuss at follow up Lipid panel: LDL 78 Lab Results Component Value Date LDLCHOL 60 09/28/2021 ASCVD: Calculate pending updated labs Statin: Yes ASA: No, on Eliquis for afib LEI/ARB: No Encouraged regular aerobic exercise for improved glycemic control Encouraged daily foot checks Encouraged lean protein snacks and to avoid foods high in sugar and simple carbohydrates Treatment Goals: A1c goal: <8% FBG goal: <150 2 hour post prandial goal: <220 Assessment & Plan (06/15/2023 6:05 AM EDT): Current A1c: 8.2 BMP: Cr 2.0-2.2 at baseline, last Cr 2.74 Microalbumin: Foot Exam: failed, diabetic foot ulcer on L 4th toe Eye Exam: Discuss at follow up Lipid panel: ASCVD: Calculate pending updated labs Statin: Yes ASA: No, on Eliquis for afib LEI/ARB: No Encouraged regular aerobic exercise for improved glycemic control Encouraged daily foot checks Encouraged lean protein snacks and to avoid foods high in sugar and simple carbohydrates Treatment Goals: A1c goal: <8% FBG goal: <150 2 hour post prandial goal: <220 Assessment & Plan (01/25/2023 1:03 PM EST): Current A1c: 8.6 BMP: Cr 2.0-2.2 Microalbumin: Foot Exam: Complete at follow up Eye Exam: Discuss at follow up Lipid panel: ASCVD: Calculate pending updated labs Statin: Yes ASA: No LEI/ARB: Yes Encouraged regular aerobic exercise for improved glycemic control Encouraged daily foot checks Encouraged lean protein snacks and to avoid foods high in sugar and simple carbohydrates Treatment Goals: A1c goal: <8% FBG goal: <150 2 hour post prandial goal: <220 Frequent fecal incontinence 10/04/2022 Assessment & Plan (06/15/2023 6:01 AM EDT): Continue diapers constantly Good elvin care Urinary incontinence 10/04/2022 Assessment & Plan (06/15/2023 6:01 AM EDT): Continue diapers Timed toileting Part of dementia Generalized edema 02/20/2022 Hypertension 10/06/2021 Assessment & Plan (09/26/2024 4:18 PM EDT): At goal <140/90 Also with Afib and mild CHF Continue current regimen of Amlodipine and Bumex Assessment & Plan (06/15/2023 6:05 AM EDT): At goal <140/90 Also with Afib and mild CHF Continue current regimen of Amlodipine and Bumex Most recent BNP 153 in 03/2023 CKD stage 3 secondary to diabetes Assessment & Plan (06/15/2023 6:02 AM EDT): 03/2023 Cr 2.73/eGFR 23 Seeing nephrology next week, needs to discuss dialysis planning and whether patient/family would be up for going through that Encounters Date Type Department Care Team Description 12/16/2024 9:15 AM EST Office Visit [facility] [address] [place] [id number] Kathy Villafana MD Chronic renal disease, stage IV (CMS/HCC) (Primary Dx); CKD stage 3 secondary to diabetes (CMS/HCC); RSV (acute bronchiolitis due to respiratory syncytial virus) 12/16/2024 Refill [facility] [address] [place] [address] Kathy Villafana MD 12/16/2024 Travel 12/09/2024 Refill [facility] [address] [place] [address] Shama Winter, Elio 12/03/2024 Patient Outreach [facility] [address] [place] [address] Kathy Villafana MD Transition Of Care (Tcm) (HDF scheduled. ) 12/03/2024 Telephone [facility] [address] [place] [address] Kathy Villafana MD Hospital Follow-up 12/02/2024 Refill [facility] [address] [place] [address] Kathy Villafana MD Other hyperlipidemia 11/25/2024 Orders Only GENERIC EXTERNAL DATA DEPARTMENT Provider, Generic External Data 11/17/2024 Telephone [facility] [address] [place] [address] Eliza Field RNhealthcare prof 10/17/2024 Refill [facility] [address] [place] [address] [facility] 10/15/2024 Refill [facility] [address] [place] [address] Kathy Villafana MD 10/12/2024 Refill [facility] [address] [place] [address] Kathy Villafana MD 09/30/2024 Telephone [facility] [address] [place] [address] Kathy Villafana MD Durable Medical Equipment 09/26/2024 Refill [facility] [address] [place] [address] Kathy Villafana MD from Last 3 Months Social History Tobacco Use Types Packs/Day Years Used Date Smoking Tobacco: Never Passive Smoke Exposure: Never Smokeless Tobacco: Never Tobacco Cessation:Counseling Given: Not Answered Alcohol Use Standard Drinks/Week Comments Never 0 [...] Orientation Straight 09/25/2022 10 :39 AM EDT Last Filed Vital Signs Vital Sign Reading Time Taken Comments Blood Pressure 116/67 09/22/2024 2:28 PM EDT Pulse 65 09/22/2024 2:28 PM EDT Temperature 36.3 ??C (97.3 ??F) 09/22/2024 2:28 PM ED T Respiratory Rate 18 09/22/2024 2:28 PM EDT Oxygen Saturation 97% 09/22/2024 2:28 PM EDT Inhaled Oxygen Concentration - - Weight 120 kg (265 lb) 09/22/2024 2:28 PM EDT pe r patient Height 180.3 cm (5' 11 ) 09/22/2024 2:28 PM EDT Body Mass Index 36.96 09/22/2024 2:28 PM EDT Plan of Treatment Health Maintenance Due Date Last Done Comments Dental Prophylaxis 1945 Pneumococcal Vaccine: 50+ Years (1 of 2 - PCV) 1951 Alcohol/Substance Use Screening 1957 DTaP/Tdap/Td Vaccines (1 - Tdap) 1964 Zoster Vaccines (1 of 2) 1995 RSV Patients and Patients Aged 60 years or older (1 - 1-dose 75+ series) 2020 Dental Oral Exam 11/21/2023 05/21/2023 Dental X-Ray: Bitewings 05/22/2024 05/21/2023 COVID-19 Vaccine (2 - season) 2024 12/21/2021 Influenza Vaccine (#1) 2024 Diabetes: Hemoglobin A1C 12/23/2024 024, 07/10/2024, 02/20/2024, Additional history exists Depression Screening 02/19/2025 02/20/2024, 02/20/20 Diabetes: Foot Exam 02/19/2025 02/20/2024 Lipid Panel 02/19/2025 02/20/2024, 09/28/2021 SDOH Screening 02/19/2025 02/20/2024 Eye Exam 08/29/2025 08/29/2024, 10/0 02/2024, 08/29/2024, Additional history exists Tobacco Screening 12/16/2025 12/16/2024 Dental X-Ray: Full Mouth 05/22/2026 05/21/2023 Hepatitis C Screening Completed 02/20/2024 HIB Vaccines Aged Out No longer eligi ble based on patient's age to complete this topic HPV Vaccines Aged Out No longer eligi ble based on patient's age to complete this topic Hepatitis A Vaccines Aged Out No long er eligible based on patient's age to complete this topic Hepatitis B Vaccines Aged Out No long er eligible based on patient's age to complete this topic IPV Vaccines Aged Out No longer eligi ble based on patient's age to complete this topic Meningococcal Vaccine Aged Out No shakira alicia eligible based on patient's age to complete this topic RSV under 20 months Aged Out No longe r eligible based on patient's age to complete this topic Rotavirus Vaccines Aged Out No longer eligible based on patient's age to complete this topic Procedures Procedure Name Priority Date/Time Associated Diagnosis Comments XR CHEST 1 VIEW Routine 11/28/2024 9:00 AM EST VENOUS BLOOD GAS Routine 11/25/2024 5:08 PM EST HIGH SENSITIVITY TROPONIN I Routine 11/25/2024 5:03 PM EST B TYPE NATRIURETIC PEPTIDE (BNP) Routine 11/25/2024 5:03 PM EST GLUCOSE, WHOLE BLOOD Routine 11/25/2024 3:13 PM EST SARS COV2/INFLUENZA A/B AND RSV RNA QL NAAT Routine 11/25/2024 10:34 AM EST BASIC METABOLIC PANEL Routine 11/25/2024 10:30 AM EST CBC WITH AUTO DIFFERENTIAL Routine 11/25/2024 10:30 AM EST XR CHEST 2 VIEWS Routine 11/25/2024 10:1 5 AM EST POCT GLYCATED HEMOGLOBIN, TOTAL Routine 09/22/2024 2:39 PM EDT Type 2 diabetes mellitus with diabetic neuropathy, with long-term current use of insulin (CMS/HCC) HEPATITIS C AB W/REFL TO HCV RNA, QN, PCR Routine 02/20/2024 3:00 PM EDT Type 2 diabetes mellitus with diabetic neuropathy, with long-term current use of insulin (CMS/HCC) LIPID PANEL, STANDARD Routine 02/20/2024 3:00 PM EDT Type 2 diabetes mellitus with diabetic neuropathy, with long-term current use of insulin (CMS/HCC) DIAGNOSTIC - DIAGNOSTIC IMAGING - INTRAORAL - COMPREHENSIVE SERIES OF RADIOGRAPHIC IMAGES Routine 05/21/2023 2:30 PM EDT PERIODIC ORAL EVALUATION - ESTABLISHED PATIENT Routine 05/21/2023 2:30 PM EDT from Last 3 Months or Most Recently Relevant to Health Maintenance Results * XR Chest 1 View (11/28/2024 9:00 AM EST) Anatomical Region Laterality Modality Chest Radiographic Agueda ging 11/28/2024 9:00 AM EST Narrative 11/28/2024 10:30 AM EST ? [facility] ?[address] ?[place], [place] [address] ?XRay Report ? Signed ? Patient: Nilo Forrest,Dayton Warren ?MR#: ?? [id number] ? : 1945 ?Acct:[id number] ? Age/Sex: 79 / M ?ADM Date: 11/27/24 ? Loc: [facility] ?485-1 ? Attending Dr: Chidi Ramirez MD ? Ordering Physician: Chidi Ramirez MD ?? Date of Service: 11/28/24 ?? Procedure(s): XR chest 1V ?? Accession Number(s): [id number] ? cc: Kathy Villafana; Chidi Ramirez MD ? EXAMINATION: ?? XR CHEST ? CLINICAL INFORMATION: ?? shortness of brath, hypoxia ? COMPARISON: ?? Chest 11/25/2024 ? TECHNIQUE: ?? Frontal view of the chest was obtained. ? FINDINGS: ?? There is cardiomegaly with bilateral prominent pulmonary vascularity ?? suggestive of mild congestion. There is no pleural effusion or ?? consolidation seen. Moderate right lateral dorsal spine spondylosis is ?? noted. ? XR/XR chest 1V ?? IMPRESSION: ?? Cardiomegaly with mild CHF. ? Electronically signed by: ??Demond Barajas MD ??11/28/2024 10:27 AM EST RP ? Dictated By: ?Demond Barajas MD ? Signed By: ?<Electronically signed by Demond Barajas MD in OV> ?11/28/24 1027 ? DD/ 0900 ? TD/TT: 11/28/24 0908 ? Vp Compliance: MSM ? Procedure Note Magdiel Luna - 11/28/[address] [address] XRay Report Signed Patient: Dayton Oquendo AMR#: [id number] : 5Acct:[id number] Age/Sex: 79 / MADM Date: 11/27/24 Loc: .[facility] 485-[address]: Chidi Ramirez MD Ordering Physician: Chidi Ramirez MD Date of Service: 11/28/24 Procedure(s): XR chest 1V Accession Number(s): [id number] cc: Kathy Villafana; Chidi Ramirez MD EXAMINATION: XR CHEST CLINICAL INFORMATION: shortness of brath, hypoxia COMPARISON: Chest 11/25/2024 TECHNIQUE: Frontal view of the chest was obtained. FINDINGS: There is cardiomegaly with bilateral prominent pulmonary vascularity suggestive of mild congestion. There is no pleural effusion or consolidation seen. Moderate right lateral dorsal spine spondylosis is noted. XR/XR chest 1V IMPRESSION: Cardiomegaly with mild CHF. Electronically signed by: Demond Barajas MD 11/28/2024 10:27 AM EST RP Dictated By: Demond Barajas MD Signed By: <Electronically signed by Demond Barajas MD in OV> 11/28/24 1027 DD/ 0900 TD/TT: 11/28/24 0908 Vp Compliance: [facility] External Provider IMG XR PROCEDURES Final Result * (ABNORMAL) VENOUS BLOOD GAS (11/25/2024 5:08 PM EST) VBG pH 7.51(H) 7.32 - 7.43 [facility] Comment:METER #: [id number] additional_comment: [employer] VBG PCO2 34 mmHg [facility] Comment:METER #: [id number] additional_comment: [employer] VBG PO2 61 mmHg [facility] Comment:METER #: [id number] additional_comment: [employer] VBG Base Excess 5.6 mmol/L [facility] Comment:METER #: [id number] additional_comment: [employer] VBG HCO3 28(H) 22 - 26 mmol/L [facility] Comment:METER #: [id number] additional_comment: [employer] O2 Sat, Cas 87.0 % [facility] Comment:METER #: [id number] additional_comment: [employer] 11/25/2024 5:08 PM EST 11/25/2024 5:15 PM EST us Generic External Data Provider LAB BLOOD ORDERAB LES Final Result Performing Organization Address [facility] Co de Phone Number [facility] [address] [place] [phone] * High Sensitivity Troponin I (11/25/2024 5:03 PM EST) Pathologist [facility] TROPONIN I HIGH SENSITIVITY 2.8 <3.5 - 35.0 ng/L [facility] Comment:The Patel high sens itivity Troponin-I results should beused in conjunction with other diagnostic information suchas ECG, clinical observations and information, and patientsymptoms to aid in the diagnosis of UT. 11/25/2024 5:03 PM EST 11/25/2024 5:07 PM EST us Generic External Data Provider LAB BLOOD ORDERAB LES Final Result Performing Organization Address [facility] Phone Number [facility] [address] [place] [phone] * (ABNORMAL) B Type Natriuretic Peptide (BNP) (11/25/2024 5:03 PM EST) Pathologist [facility] B Type Natriuretic Peptide 224(H) <100 pg/mL [facility] Comment:For those patients w ho are being treated with Natrecor(nesiritide, recombinant BNP), BNP testing should beperformed at least two hours post treatment in order toensure that only endogenous levels of BNP are detected. 11/25/2024 5:03 PM EST 11/25/2024 5:07 PM EST us Generic External Data Provider LAB BLOOD ORDERAB LES Final Result Performing Organization Address [facility] Phone Number [facility] [address] [place] [phone] * (ABNORMAL) Glucose, Whole Blood (11/25/2024 3:13 PM EST) Glucose, Whole Blood 328(H) 60 - 115 mg/dL [facility] Comment:METER #: [id number] 11/25/2024 3:13 PM EST 11/25/2024 3:17 PM EST Generic External Data Provider LAB BLOOD ORDERAB LES Final Result Performing Organization Address [facility] de Phone Number [facility] [address] [place] [phone] * (ABNORMAL) SARS-CoV-2 RNA, Influenza A/B, and RSV RNA, Ql NAAT (11/25/2024 10:34 AM EST) Pathologist [facility] Influenza A PCR NEGATIVE Negative [facility] Influenza B PCR NEGATIVE Negative [facility] Resp Syncy Virus RNA Qual PCR POSITIVE(A) Negative [facility] SARS COV2 PCR NEGATIVE Negative [facility] Comment:All test results mus t be correlated with clinical findings.Negative results do not preclude SARS-CoV2, influenza Avirus, influenza B virus and/or RSV infectionand should not be used as the sole basis for treatment orother patient management decisions. Negative results must becombined with clinical observations, patient history, andepidemiological information.This test has not been evaluated for monitoring treatment ofinfection.This test has been authorized by the FDA under an EmergencyUse Authorization (EUA) for use by authorized laboratories.Testing performed on the [employer] [place] GeneXpert utilizingreal-time RT-PCR.All SARS CoV2 and positive influenza A/B results arereported to [facility]. 11/25/2024 10:3 4 AM EST 11/25/2024 10:42 AM EST Generic External Data Provider LAB MICROBIOLOGY - GENERAL ORDERABLES Final Result Performing Organization Address [facility] Co de Phone Number [facility] [address] [place] [phone] * (ABNORMAL) CBC auto differential (11/25/2024 10:30 AM EST) White Blood Count 6.1 4.8 - 10.8 X10*3/uL [facility] Red Blood Count 4.02(L) 4.60 - 5.80 X10*6/uL [facility] Hemoglobin 12.4(L) 14.0 - 18.0 g/dl [facility] Hematocrit 38.1(L) 42.0 - 52.0 % [facility] Mean Corpuscular Volume 94.8 80.0 - 98.0 fL [facility] Mean Corpuscular Hemoglobin 30.8 27.0 - 33.0 pg [facility] Mean Corpuscular HGB Conc 32.5 31.0 - 36.0 g/dl [facility] Red Cell Distribution Width 15.3 11.0 - 16.0 % [facility] Platelet Count 159(L) 160 - 400 X10*3/uL [facility] Mean Platelet Volume 12.3 9.4 - 12.4 fL [facility] Neutrophils Percent Auto 63.7 45 - 73 % [facility] Imm Gran Pct Auto 0.2 0.0 - 0.4 % [facility] Lymphocytes Percent Auto 17.0(L) 20 - 40 % [facility] Monocytes Percent Auto 13.3(H) 2 - 11 % [facility] Eosinophils Percent Auto 4.8(H) 0 - 4 % [facility] Basophils Percent Auto 1.0 0 - 2 % [facility] NRBC Pct Auto 0.0 0.0 - 0.2 /100WBC [facility] Neutrophils Absolute Auto 3.9 2.0 - 8.3 x10*3/uL [facility] Imm Gran Abs Auto 0.01 0.00 - 0.03 X10*3/uL [facility] Lymphocytes Absolute Auto 1.0(L) 1.2 - 4.9 X10*3/uL [facility] Monocytes Absolute Auto 0.8 0.1 - 1.2 X10*3/uL [facility] Eosinophils Absolute Auto 0.3 0.0 - 0.4 X10*3/uL [facility] Basophils Absolute Auto 0.1 0.0 - 0.2 X10*3/uL [facility] NRBC Abs Auto 0.000 0.0 - 0.012 X10*3/uL [facility] 11/25/2024 10:3 0 AM EST 11/25/2024 10:42 AM EST us Generic External Data Provider LAB BLOOD ORDERAB LES Final Result [facility] [address] [place] [phone] * (ABNORMAL) Basic Metabolic Panel (11/25/2024 10:30 AM EST) Sodium 135 135 - 145 mmol/L [facility] Potassium 4.3 3.3 - 5.1 mmol/L [facility] Chloride 99 96 - 108 mmol/L [facility] Carbon Dioxide 26 22 - 29 mmol/L [facility] Anion Gap 14 12 - 20 [facility] Urea Nitrogen (BUN) 33(H) 9 - 16 mg/dL [facility] Creatinine, Serum 2.18(H) 0.5 - 1.4 mg/dL [facility] Creatinine Clr Calc Pharmacy 33.7 [facility] Comment:eGFR (calculated fro m the MDRD study equation) and eCrCl(calculated from the Cockcroft-Gault equation) are based ondifferent parameters and may not yield comparable results.If eCrCl result is absurd, please check patient'sheight/weight. Estimated Glomerular Filt Rate 29 [facility] Comment:Chronic Kidney Disea se: Estimated GFR < 60 mL/min/1.73o1Zyelqg Kidney Disease: Estimated GFR < 15 mL/min/1.73m2 Glucose 339(H) 60 - 115 mg/dL [facility] Calcium 8.4 8.4 - 10.2 mg/dL [facility] 11/25/2024 10:3 0 AM EST 11/25/2024 10:42 AM EST us Generic External Data Provider LAB BLOOD ORDERAB LES Final Result [facility] [address] [facility] [place] [phone] * XR Chest 2 Views (11/25/2024 10:15 AM EST) Anatomical Region Laterality Modality Chest Radiographic Agueda ging 11/25/2024 10:1 5 AM EST Narrative 11/25/2024 11:47 AM EST ? [facility] ?[address] ?[place] [address] ?XRay Report ? Signed ? Patient: Dayton Oquendo ?MR#: ?? [id number] ? : 1945 ?Acct:[id number] ? Age/Sex: 79 / M ?ADM Date: 11/25/24 ? Loc: HO.ED ? Attending Dr: ? Ordering Physician: Generic ED Physician ?? Date of Service: 11/25/24 ?? Procedure(s): XR chest 2V ?? Accession Number(s): [id number] ? cc: Generic ED Physician; Kathy Villafana ? EXAMINATION: ?? XR CHEST ? CLINICAL INFORMATION: ?? PROD COUGH ? COMPARISON: ?? Chest 09/20/2024 ? TECHNIQUE: ?? 2 views of the chest were obtained. ? FINDINGS: ?? The lungs are well-expanded and clear. The heart size is enlarged. ?? Pulmonary vascularity is normal. There is moderate spondylosis ?? throughout dorsal spine. No aggressive lytic or sclerotic process seen. ? XR/XR chest 2V ?? IMPRESSION: ?? Unremarkable chest exam. ? Electronically signed by: ??Demond Barajas MD ??11/25/2024 11:44 AM EST RP ? Dictated By: ?Jenn,Demond S MD ? Signed By: ?<Electronically signed by Demond S Jenn, MD in OV> ?11/25/24 1144 ? DD/ 1015 ? TD/TT: 11/25/24 1059 ? Vp Compliance: MSM ? Procedure Note Donotuseinterpreter, Image - 11/25/[address] [address] XRay Report Signed Patient: Dayton Oquendo AMR#: [id number] : 5Acct:[id number] Age/Sex: 79 / MADM Date: 11/25/24 Loc: HO.ED Attending Dr: Ordering Physician: Generic ED Physician Date of Service: 11/25/24 Procedure(s): XR chest 2V Accession Number(s): [id number] cc: Generic ED Physician; Kathy Villafana EXAMINATION: XR CHEST CLINICAL INFORMATION: PROD COUGH COMPARISON: Chest 09/20/2024 TECHNIQUE: 2 views of the chest were obtained. FINDINGS: The lungs are well-expanded and clear. The heart size is enlarged. Pulmonary vascularity is normal. There is moderate spondylosis throughout dorsal spine. No aggressive lytic or sclerotic process seen. XR/XR chest 2V IMPRESSION: Unremarkable chest exam. Electronically signed by: Demond Barajas MD 11/25/2024 11:44 AM [facility] Dictated By: Demond Barajas MD Signed By: <Electronically signed by Demond Barajas MD in OV> 11/25/24 1144 DD/ 1015 TD/TT: 11/25/24 1059 Vp Compliance: [facility] External Provider IMG XR PROCEDURES Edited Result - Final * (ABNORMAL) POCT HGB A1C (09/22/2024 2:39 PM EDT) Hemoglobin A1C 8.8(A) 4.0 - 6.0 % QC Media Lot # [id number] Lot# Expiration Date Blood 09/22/2024 2:39 PM EDT Kathy Villafana MD POINT OF CARE TEST ENTER/EDIT ORDERABLES Final Result * Hepatitis C Antibody with Reflex to HCV, RNA, Quantitative, Real-Time PCR (02/20/2024 3:00 PM EDT) Hepatitis C Antibody Nonreactive Nonreactive [facility] Comment:Antibodies to HCV no t detected; does not exclude early acuteHCV infection. Blood Venous blood specimen / Unknown 02/20/2024 3:00 PM EDT 02/20/2024 4:04 PM EDT Kathy Villafana MD LAB BLOOD ORDERABLES Final Res ult [facility] [address] [place] [phone] * (ABNORMAL) Lipid Panel, Standard (02/20/2024 3:00 PM EDT) Triglycerides 186(H) <150 mg/dL [facility] Comment:Desirable Triglyceri de: less than 150 mg/dLBorderline High Triglyceride 150-199 mg/dLHigh Triglyceride: 200-499 mg/dLVery High Triglyceride: greater than or equal to 5OO mg/dL Cholesterol 159 <200 mg/dL [facility] Comment:Desirable Cholestero l: less than 200 mg/dLBorderline High Cholesterol: 200-239 mg/dLHigh Cholesterol: greater than 239 mg/dL LDL Cholesterol Calculated 78 <100 mg/dL [facility] Comment:Desirable LDL: less than 100 mg/dLNear Optimal/Above Optimal LDL: 110- 129 mg/dLBorderline High LDL: 130-159 mg/dLHigh LDL: 160-189 mg/dLVery High LDL: greater than or equal to 190 mg/dL HDL Cholesterol 44 >40 mg/dL [facility] Comment:Desirable HDL: great er than 40 mg/dL Note: This HDL assay may give artificially low results in patients with liver disease. Blood Venous blood specimen / Unknown 02/20/2024 3:00 PM EDT 02/20/2024 4:04 PM EDT Kathy Villafana MD LAB BLOOD ORDERABLES Final Res ult [facility] [address] [place] [phone] from Last 3 Months or Most Recently Relevant to Health Maintenance Insurance [facility] Advance Directives Documents on File Type Date Recorded Patient Machine Filler Shredder Expl anation Advance Directives and Livin g Will 06/28/2023 Health Care Proxy Care Teams Home Care And Home Health Aides Teacher Relationship Specialty Start Date End Date Kathy Villafana MD [address] [place] [phone] PCP - General Family Medicine 08/05/21 [facility] 12/04/24
--- OUTSIDE RECORDS SUMMARY | 2024-12-24 14:37 | XMS_ITS | Encounter Summary ---
Author Organization [employer] Address [address] [facility] [place] [address] Care Team Providers Care Art Objects Supervisor Name Role Phone Kathy Villafana MD Primary Care Provider [phone] Encounter Details Date Type Department Care Team (Late st Contact Info) Description 12/20/2023 Abstract [facility] [address] [place], [place] [phone] Kathy Villafana MD [address] [place], [place] [phone] Social History Tobacco Use Types Packs/Day Years Used Date Smoking Tobacco: Never Passive Smoke Exposure: Never Smokeless Tobacco: Never Alcohol Use Standard Drinks/Week Comments Never 0 (1 standard drink = 0.6 oz pur e alcohol) Depression Answer Date Recorded Patient Health Questionnaire-9 Score 0 01/22/2023 Housing Stability Answer Date Recorded What is your housing situation today? I have rah vinson 09/10/[address] you li ve. Do you have problems with any of the following? None of the above 09/10/2023 Food Insecurity Answer Date Recorded Within the past 12 months, y ou worried that your food would run out before you got money to buy more: Never True 09/10/2023 Within the past 12 months,th e food you bought just didn't last and you didn't have enough money to get more: Never True Transportation Answer Date Recorded In the past 12 months, has l ack of transportation kept you from medical appts, meetings, work or from getting things needed for daily living? No 09/10/2023 Utilities Answer Date Recorded In the past 12 months, has t he electric, gas, oil or water company threatened to shut off services in your home? No 09/10/2023 Depression Answer Date Recorded Patient Health Questionnaire-2 [...] documented as of this encounter Care Teams Art Objects Supervisor Relationship Specialty Start Date End Date Kathy Villafana MD [address] [place] [phone] PCP - General Family Medicine 08/05/21 [facility] 12/04/24 documented as of this encounter
--- OUTSIDE RECORDS SUMMARY | 2024-12-24 14:37 | XMS_ITS | Encounter Summary ---
Author Organization [employer] Address [address] [facility] [address] [place] [address] Care Team Providers Care Band Aid Machine Operator Name Role Phone Kathy Villafana MD Primary Care Provider [phone] Reason for Visit * Reason Comments Med Refill Encounter Details Date Type Department Care Team ([facility] st Contact Info) Description 11/28/2023 Refill [facility] [address] [place], [place] [phone] Kathy Villafana MD [address] [place], [place] [phone] Social History Tobacco Use Types Packs/Day Years [...] encounter Miscellaneous Notes * Telephone Encounter - Kathy Villafana MD - 11/28/2023 4:59 PM EST Responded to another way documented in this encounter Plan of Treatment Not on file documented as of this encounter Visit Diagnoses Not on filedocumented in this encounter Additional Health Concerns Assessment Noted Time PHQ-9 Depression Total Score: 0 01/22/20 23 3:42 PM EST documented as of this encounter Care Teams Band Aid Machine Operator Relationship Specialty Start Date End Date Kathy Villafana MD [address] [place] [address] PCP - General Family Medicine 08/05/21 [facility] 12/04/24 documented as of this encounter
--- OUTSIDE RECORDS SUMMARY | 2024-12-24 14:37 | XMS_ITS | Encounter Summary ---
Author Organization [email or web address] [facility] Address [address] [facility] 7t [place] [address] Care Team Providers Care Safety Net Maker Name Role Phone Kathy Villafana MD Primary Care Provider [phone] Reason for Visit * Reason Comments Med Refill Encounter Details Date Type Department Care Team ([facility] st Contact Info) Description 08/18/2023 Refill [facility] [address] [place], [place] [phone] Kathy Villafana MD [address] [place], [place] [phone] Social History Tobacco Use Types Packs/Day Years [...] documented as of this encounter Care Teams Safety Net Maker Relationship Specialty Start Date End Date Kathy Villafana MD [address] [place], [place] [phone] PCP - General Family Medicine 08/05/21 [facility] 12/04/24 documented as of this encounter
--- OUTSIDE RECORDS SUMMARY | 2024-12-24 14:37 | XMS_ITS | Encounter Summary ---
Author Organization [employer] Address [address] [facility] [address] [place] [address] Care Team Providers Care Burglar Alarm Superintendent Name Role Phone Kathy Villafana MD Primary Care Provider Encounter Details Date Type Department Care Team (Late st Contact Info) Description 11/28/2023 Orders Only [facility] [address] [place], [place] [phone] Kathy Villafana MD [address] [place], [place] [phone] Social History Tobacco Use Types Packs/Day Years [...] documented as of this encounter Care Teams Burglar Alarm Superintendent Relationship Specialty Start Date End Date Kathy Villafana MD [address] [place] [address] PCP - General Family Medicine 08/05/21 [facility] 12/04/24 documented as of this encounter
--- OUTSIDE RECORDS SUMMARY | 2024-12-24 14:37 | XMS_ITS | Encounter Summary ---
Author Organization [employer] Address [address] [facility] [facility] [address] [place] [address] Care Team Providers Care Superintendent Mechanical Name Role Phone Kathy Villafana MD Primary Care Provider [phone] Reason for Visit * Reason Onset Date Comments Appointment Request 01/24/2024 Encounter Details Date Type Department Care Team ([facility] st Contact Info) Description 01/24/2024 Telephone [facility] [address] [place], [place] [phone] Kathy Villafana MD [address] [place], [place] [phone] Appointment Request Social History Tobacco Use Types Packs/Day Years [...] encounter Miscellaneous Notes * Telephone Encounter - Mickie Cole - 01/24/2024 10:56 AM EST Tc from pt son requesting to r/s follow up scheduled for 01/24/24. Instruction Librarian unable to schedule due to 30 min appt. Appt has been cancelled. Please contact at [phone] documented in this encounter Plan of Treatment Not on file documented as of this encounter Visit Diagnoses Not on filedocumented in this encounter Additional Health Concerns Assessment Noted Time PHQ-9 Depression Total Score: 0 01/22/20 23 3:42 PM EST documented as of this encounter Care Teams Superintendent Mechanical Relationship Specialty Start Date End Date Kathy Villafana MD [address] [place] [phone] PCP - General Family Medicine 08/05/21 [facility] 12/04/24 documented as of this encounter
--- OUTSIDE RECORDS SUMMARY | 2024-12-24 14:37 | XMS_ITS | Encounter Summary ---
Author Organization [employer] Address [address] [facility] [address] [place] [address] Care Team Providers Care Top Printing Press Operator Name Role Phone Kathy Villafana MD Primary Care Provider [phone] Encounter Details Date Type Department Care Team (Late st Contact Info) Description 09/18/2023 Abstract [facility] [address] [place], [place] [phone] Kathy Villafana MD [address] [place], [place] [phone] Social History Tobacco Use Types Packs/Day Years [...] documented as of this encounter Care Teams Top Printing Press Operator Relationship Specialty Start Date End Date Kathy Villafana MD [address] [place] [address] PCP - General Family Medicine 08/05/21 [facility] 12/04/24 documented as of this encounter
--- OUTSIDE RECORDS SUMMARY | 2024-12-24 14:37 | XMS_ITS | Encounter Summary ---
Author Organization [employer] Address [address] 7[address] [place] [address] Care Team Providers Care Graphics Editor Name Role Phone Kathy Villafana MD Primary Care Provider [phone] Encounter Details Date Type Department Care Team (Late st Contact Info) Description 11/25/2024 Orders Only GENERIC EXTERNAL DATA DEPARTMENT Provider, Generic External Data Social History Tobacco Use Types Packs/Day Years [...] on file documented as of this encounter Procedures Procedure Name Priority Date/Time Associated Diagnosis [...] QL NAAT Routine 11/25/2024 10:34 AM EST CBC WITH AUTO DIFFERENTIAL Routine 11/25/2024 10:30 AM EST BASIC METABOLIC PANEL Routine 11/25/2024 10:30 AM EST XR CHEST 2 VIEWS Routine 11/25/2024 10:1 5 AM EST documented in this encounter Results * XR Chest 1 View (11/28/2024 9:00 AM EST) Anatomical Region Laterality Modality Chest Radiographic Agueda ging 11/28/2024 9:00 AM EST Narrative 11/28/2024 10:30 AM EST ? [facility] ?[address] ?[place] [address] ?XRay Report ? Signed ? Patient: Nilo Adriane,Dayton A ?MR#: ?? [id number] ? : 1945 ?Acct:[id number] ? Age/Sex: 79 / M ?ADM Date: 01/02/25 ? Loc: HO.[facility]C ?485-1 ? Attending Dr: Chidi Ramirez MD ? Ordering Physician: Chidi Ramirez MD ?? Date of Service: 11/28/24 ?? Procedure(s): XR chest 1V ?? Accession Number(s): [id number] ? cc: Kathy Villafana; Chidi Ramirez MD [...] DD/ 0900 ? TD/TT: 11/28/24 0908 ? Assistant Professor Of Religion: MSM ? Procedure Note Johnsaeeveretttim, Image - 11/28/[address] [address] XRay Report Signed Patient: Dayton Oquendo AMR#: [id number] : 5Acct:[id number] Age/Sex: 79 / MADM Date: 11/27/24 Loc: [facility] 485-[address]: Chidi Ramirez MD Ordering Physician: Chidi Ramirez MD Date of Service: 11/28/24 Procedure(s): XR chest 1V Accession Number(s): [id number] cc: Kathy Villafana; Chidi Ramirez MD EXAMINATION: [...] Demond Barajas MD 11/28/2024 10:27 AM EST Dictated By: Demond Barajas MD Signed By: <Electronically signed by Demond Barajas MD in OV> 11/28/24 1027 DD/ 0900 TD/TT: 11/28/24 0908 Assistant Professor Of Religion: SHAHNAZ [facility]anning [facility] External Provider IMG XR PROCEDURES Final Result * (ABNORMAL) VENOUS BLOOD GAS (11/25/2024 5:08 PM EST) VBG pH 7.51(H) 7.32 - 7.43 [facility] Comment:METER #: [id number] additional_comment: [employer] VBG PCO2 34 mmHg [facility] Comment:METER #: [id number] additional_comment: [employer] VBG PO2 61 mmHg [facility] Comment:METER #: [id number] additional_comment: [employer] VBG Base Excess 5.6 mmol/L [facility] Comment:METER #: [id number] additional_comment: [employer] VBG HCO3 28(H) 22 - 26 mmol/L [facility] Comment:METER #: [id number] additional_comment: [employer] O2 Sat, Cas 87.0 % [facility] Comment:METER #: [id number] additional_comment: [employer] 11/25/2024 5:08 PM EST 11/25/2024 5:15 PM EST Generic External Data Provider LAB BLOOD ORDERAB LES Final Result [facility] [address] [place] [address] [place] [phone] * High Sensitivity Troponin I (11/25/2024 5:03 PM EST) [facility] TROPONIN I HIGH SENSITIVITY 2.8 <3.5 - 35.0 ng/L [facility] Comment:The Patel high sens itivity Troponin-I results should beused in conjunction with other diagnostic information suchas ECG, clinical observations and information, and patientsymptoms to aid in the diagnosis of [place]. 11/25/2024 5:03 PM EST 11/25/2024 5:07 PM EST Generic External Data Provider LAB BLOOD ORDERAB LES Final Result Performing Organization Address [facility] Co de Phone Number [facility] [address] [place] [phone] * (ABNORMAL) B Type Natriuretic Peptide (BNP) (11/25/2024 5:03 PM EST) [facility] B Type Natriuretic Peptide 224(H) <100 pg/mL [facility] Comment:For those patients w ho are being treated with Natrecor(nesiritide, recombinant BNP), BNP testing should beperformed at least two hours post treatment in order toensure that only endogenous levels of BNP are detected. 11/25/2024 5:03 PM EST 11/25/2024 5:07 PM EST Generic External Data Provider LAB BLOOD ORDERAB LES Final Result Performing Organization Address [facility]/ZIP Co de Phone Number [facility] [address] [place] [phone] * (ABNORMAL) Glucose, Whole Blood (11/25/2024 3:13 PM EST) [facility] Glucose, Whole Blood 328(H) 60 - 115 mg/dL [facility] Comment:METER #: [id number] 11/25/2024 3:13 PM EST 11/25/2024 3:17 PM EST Generic External Data Provider LAB BLOOD ORDERAB LES Final Result Performing Organization Address [facility] Co de Phone Number [facility] [address] [place] [phone] * (ABNORMAL) SARS-CoV-2 RNA, Influenza A/B, and RSV RNA, Ql NAAT (11/25/2024 10:34 AM EST) Pathologist [facility] Influenza A PCR NEGATIVE Negative [facility] Influenza B PCR NEGATIVE Negative [facility] Resp Syncy Virus RNA Qual PCR POSITIVE(A) Negative [facility] SARS COV2 PCR NEGATIVE Negative [facility] Comment:All test results mus t [...] use by authorized laboratories.Testing performed on the [employer] GeneXpert utilizingreal-time RT-PCR.All SARS CoV2 and positive influenza A/B results arereported to [facility]. 11/25/2024 10:3 4 AM EST 11/25/2024 10:42 AM EST Generic External Data Provider LAB MICROBIOLOGY - GENERAL ORDERABLES Final Result Performing Organization Address [facility]/ZIP Co de Phone Number [facility] [address] [place] [phone] * (ABNORMAL) Basic Metabolic Panel (11/25/2024 10:30 AM EST) Pathologist [facility] Sodium 135 135 - 145 mmol/L [facility] Potassium 4.3 3.3 - 5.1 mmol/L [facility] Chloride 99 96 - 108 mmol/L [facility] Carbon Dioxide 26 22 - 29 mmol/L [facility] Anion Gap 14 12 - 20 [facility] Urea Nitrogen (BUN) 33(H) 9 - 16 mg/dL [facility] Creatinine, Serum 2.18(H) 0.5 - 1.4 mg/dL [facility] Creatinine Clr Calc Pharmacy 33.7 [facility] Comment:eGFR (calculated fro m the MDRD study equation) and eCrCl(calculated from the Cockcroft-Gault equation) are based ondifferent parameters and may not yield comparable results.If eCrCl result is absurd, please check patient'sheight/weight. Estimated Glomerular Filt Rate 29 [facility] Comment:Chronic Kidney Disea se: Estimated GFR < 60 mL/min/1.77g6Lrnlvz Kidney Disease: Estimated GFR < 15 mL/min/1.73m2 Glucose 339(H) 60 - 115 mg/dL [facility] Calcium 8.4 8.4 - 10.2 mg/dL [facility] 11/25/2024 10:3 0 AM EST 11/25/2024 10:42 AM EST us Generic External Data Provider LAB BLOOD ORDERAB LES Final Result [facility] [address] [place] [phone] * (ABNORMAL) CBC auto differential (11/25/2024 10:30 AM EST) White Blood Count 6.1 4.8 - 10.8 X10*3/uL [facility] Red Blood Count 4.02(L) 4.60 - 5.80 X10*6/uL [facility] Hemoglobin 12.4(L) 14.0 - 18.0 g/dl [facility] Hematocrit 38.1(L) 42.0 - 52.0 % [facility] Mean Corpuscular Volume 94.8 80.0 - 98.0 fL [facility] Mean Corpuscular Hemoglobin 30.8 27.0 - 33.0 pg [facility] Mean Corpuscular HGB Conc 32.5 31.0 - 36.0 g/dl [facility] Red Cell Distribution Width 15.3 11.0 - 16.0 % [facility] Platelet Count 159(L) 160 - 400 X10*3/uL [facility] Mean Platelet Volume 12.3 9.4 - 12.4 fL [facility] Neutrophils Percent Auto 63.7 45 - 73 % [facility] Imm Gran Pct Auto 0.2 0.0 - 0.4 % [facility] Lymphocytes Percent Auto 17.0(L) 20 - 40 % [facility] Monocytes Percent Auto 13.3(H) 2 - 11 % [facility] Eosinophils Percent Auto 4.8(H) 0 - 4 % [facility] Basophils Percent Auto 1.0 0 - 2 % [facility] NRBC Pct Auto 0.0 0.0 - 0.2 /100WBC [facility] Neutrophils Absolute Auto 3.9 2.0 - 8.3 x10*3/uL [facility] Imm Gran Abs Auto 0.01 0.00 - 0.03 X10*3/uL [facility] Lymphocytes Absolute Auto 1.0(L) 1.2 - 4.9 X10*3/uL [facility] Monocytes Absolute Auto 0.8 0.1 - 1.2 X10*3/uL [facility] Eosinophils Absolute Auto 0.3 0.0 - 0.4 X10*3/uL [facility] Basophils Absolute Auto 0.1 0.0 - 0.2 X10*3/uL [facility] NRBC Abs Auto 0.000 0.0 - 0.012 X10*3/uL [facility] 11/25/2024 10:3 0 AM EST 11/25/2024 10:42 AM EST us Generic External Data Provider LAB BLOOD ORDERAB LES Final Result [facility] [address] [place] [phone] [phone] * XR Chest 2 Views (11/25/2024 10:15 AM EST) Anatomical Region Laterality Modality Chest Radiographic Agueda ging 11/25/2024 10:1 5 AM EST Narrative 11/25/2024 11:47 AM EST ? [facility] ?[address] ?[place] [address] ?XRay Report ? Signed ? Patient: aDyton Oquendo ?MR#: ?? [id number] ? : 1945 ?Acct:[id number] ? Age/Sex: 79 / M ?ADM Date: 11/25/24 ? Loc: HO.ED ? Attending Dr: ? Ordering Physician: Generic ED Physician ?? Date of Service: 11/25/24 ?? Procedure(s): XR chest 2V ?? Accession Number(s): [id number] ? cc: Generic ED Physician; Kathy Villafana [...] 11:44 AM EST RP ? Dictated By: ?Demond Barajas S MD ? Signed By: ?<Electronically signed by Demond S MD Jenn in OV> ?11/25/24 1144 ? DD/ 1015 ? TD/TT: 11/25/24 1059 ? Assistant Professor Of Religion: MSM ? Procedure Note Magdiel Luna - 11/25/[address] [address] XRay Report Signed Patient: Nilo ForrestDayton AMR#: [id number] : 5Acct:[id number] Age/Sex: 79 / MADM Date: 11/25/24 Loc: HO.ED Attending Dr: Ordering Physician: Generic ED Physician Date of Service: 11/25/24 Procedure(s): XR chest 2V Accession Number(s): [id number] cc: Generic ED Physician; Kathy Villafana EXAMINATION: [...] by: Demond Barajas MD 11/25/2024 11:44 AM EST Dictated By: Demond Barajas MD Signed By: <Electronically signed by Demond Barajas MD in OV> 11/25/24 1144 DD/ 1015 TD/TT: 11/25/24 1059 Assistant Professor Of Religion: SHAHNAZ Channing Home External Provider IMG XR PROCEDURES Edited Result - Final documented in this encounter Visit Diagnoses Not on filedocumented in this encounter Additional Health Concerns Assessment Noted Time PHQ-9 Depression Total Score: 0 02/20/20 24 2:34 PM EDT documented as of this encounter Care Teams Graphics Editor Relationship Specialty Start Date End Date Kathy Villafana MD [address] [place] [phone] PCP - General Family Medicine 08/05/21 documented as of this encounter
--- OUTSIDE RECORDS SUMMARY | 2024-12-24 14:37 | XMS_ITS | Clinical Summary ---
Author Organization [facility] Address [address] [address] Care Team Providers Care Records Tech Name Role Phone Kathy Villafana MD Primary Care Provider [phone] Medications pantoprazole (PROTONIX) 40 MG EC tablet Take 40 mg by mouth 1 (one) time each day 09/14/20 21 Active memantine (NAMENDA) 10 MG tablet 09/19/20 21 Active metoprolol tartrate (LOPRESSOR) 100 MG tablet Take 100 mg by mouth 2 (two) times a day with meals 08/15/20 21 Active magnesium oxide 250 MG tablet Take 1 tablet by mouth 1 (one) time each day 08/17/20 21 Active citalopram (CeleXA) 10 MG tablet Take 10 mg by mouth 1 (one) time each day 08/17/20 21 Active donepezil (ARICEPT) 10 MG tablet Take 10 mg by mouth at bed time 08/15/20 21 Active glimepiride (AMARYL) 4 MG tablet Take 4 mg by mouth 2 (two) times a day 08/17/20 21 Active HumaLOG MIX 50/50 (50-50) 100 UNIT/ML injection INJECT 76 UNITS SUBCUTANEOUSLY THREE TIMES DAILY WITH MEALS 09/14/20 21 Active Multiple Vitamins-Mineral s (CertaVite Senior) tablet Take 1 tablet by mouth 1 (one) time each day 08/17/20 21 Active amLODIPine (NORVASC) 10 MG tablet Take 5 mg by mouth 1 (one) time each day Active allopurinol (ZYLOPRIM) 100 MG tablet Take 0.5 mg by mouth 1 (one) time each day Active Acetaminophen Extra Strength 500 MG tablet Take 500 mg by mouth every 6 (six) hours if needed 11/03/20 21 Active Refresh Tears 0.5 % solution PLACE 1 DROP IN EACH EYE EVERY 4 TO 6 HOURS FOR REDNESS 09/28/20 21 Active glucose 4 g chewable tablet CHEW 4 TABLETS NEEDED FOR low blood sugar (LESS THAN 70mg/dL) 10/13/20 21 Active gabapentin (NEURONTIN) 600 MG tablet 11/04/20 21 Active hydrocortisone 2.5 % cream 10/12/20 21 Active silver sulfADIAZINE (SILVADENE, SSD) 1 % cream APPLY TO THE AFFECTED AREA(S) EVERY DAY (1.5mm CAPA) 10/11/20 21 Active atorvastatin (LIPITOR) 40 MG tablet Take 40 mg by mouth 1 (one) time each day Active apixaban (ELIQUIS) 5 MG tablet Take 5 mg by mouth in the morning and 5 mg in the evening. Active omeprazole (PriLOSEC) [address] capsule Take 40 mg by mouth 1 (one) time daily 30 minutes after same meal 04/26/20 23 Active sucralfate (CARAFATE) 1 g tablet TAKE 1 TABLET BY MOUTH THREE TIMES DAILY IN THE MORNING, AT NOON, AND IN THE EVENING BEFORE MEALS Active bumetanide (BUMEX) 1 MG tabletIndication s:Hypertension Take 1 tablet (1 mg total) by mouth in the morning and 1 tablet (1 mg total) in the evening. 180 tablet 3 08/27/20 24 025 Active Active Problems Problem Noted Date Diagnosed Date Type 2 diabetes mellitus wit h diabetic chronic kidney disease 01/09/2024 Alzheimer's disease 01/22/2023 09/11/2023 Atrial fibrillation 01/22/2023 09/11/2023 Gastroesophageal reflux disease 01/22/2023 09/11/2023 History of non-ST segment elevation myocardial i nfarction 01/22/2023 09/11/2023 Hyperlipidemia 01/22/2023 09/11/2023 Neuropathy due to diabetes mellitus 01/22/2023 09/11/2023 Right flank pain 01/22/2023 09/11/2023 Type 2 diabetes mellitus 01/22/2023 023 Frequent fecal incontinence 10/04/202208/26 Urinary incontinence 10/04/2022 09/11/2023 Generalized edema 02/20/2022 Stage 3b chronic kidney disease 10/06/2021 Hypertension 10/06/2021 Social History Tobacco Use Types Packs/Day Years Used Date Smoking Tobacco: Never Smokeless Tobacco: Never Alcohol Use Standard Drinks/Week Comments Never 0 (1 standard drink = 0.6 oz pur e alcohol) Sex and Gender Information Value Date Recorded Sex Assigned at Not on file Legal Sex Male 8:59 AM EDT Gender Identity Not on file Sexual Orientation Not on file Last Filed Vital Signs Vital Sign Reading Time Taken Comments Blood Pressure 130/80 09/12/2023 3:49 PM EDT Pulse 86 09/12/2023 3:49 PM EDT Temperature - - Respiratory Rate - - Oxygen Saturation 97% 09/12/2023 3:49 PM EDT Inhaled Oxygen Concentration - - Weight 122 kg (268 lb) 09/12/2023 3:49 PM EDT Height - - Body Mass Index - - Plan of Treatment Health Maintenance Due Date Last Done Comments Pneumococcal Vaccine: 65+ Years (1 of 2 - PCV) 1951 Diabetes: Ophthalmology Exam 01/10/2023 Diabetes: Pedal Pulse Checked 01/10/2023 Diabetes: Sensory Foot Exam 01/10/2023 Diabetes: Visual Foot Exam 01/10/2023 Influenza Vaccine (#1) 2024 Diabetes: Hemoglobin A1C 12/23/2024 024, 02/20/2024, 10/08/2023, Additional history exists Hepatitis B Vaccine Aged Out No longe r eligible based on patient's age to complete this topic Insurance [facility] ([id number]) KENJI AUGUSTINE [id number] [facility] ([id number]) [place]JI AUGUSTINE [id number] Care Teams Records Tech Relationship Specialty Start Date End Date Kathy Villafana MD PCP - General General Manager 10/13/21
--- OUTSIDE RECORDS SUMMARY | 2024-12-24 14:37 | XMS_ITS | Encounter Summary ---
Author Organization [employer] Address [address] [place] [address] Care Team Providers Care Collar Runner Name Role Phone Kathy Villafana MD Primary Care Provider [phone] Encounter Details Date Type Department Care Team (Late st Contact Info) Description 09/24/2023 Abstract [facility] [address] [place], [place] [phone] Kathy Villafana MD [address] [place], [place] [phone] Social History Tobacco Use Types Packs/Day Years [...] documented as of this encounter Care Teams Collar Runner Relationship Specialty Start Date End Date Kathy Villafana MD [address] [place] [address] PCP - General Family Medicine 08/05/21 [facility] 12/04/24 documented as of this encounter
--- OUTSIDE RECORDS SUMMARY | 2024-12-24 14:37 | XMS_ITS | Encounter Summary ---
Author Organization [employer] Address [address] [place] [address] Care Team Providers Care Grab Jack Man Name Role Phone Kathy Villafana MD Primary Care Provider [phone] Reason for Visit * Reason Comments Med Refill Encounter Details Date Type Department Care Team ([facility] st Contact Info) Description 11/18/[address] [facility] [address] [place], [place] [phone] Kathy Villafana MD [address] [place], [place] [phone] Type 2 diabetes mellitus with hyperglycemia, with long-term current use of insulin ([facility]) Social History Tobacco Use Types Packs/Day Years [...] hyperglycemia, with long-term current use of insulin ([facility]) documented in this encounter Additional Health Concerns Assessment Noted Time PHQ-9 Depression Total Score: 0 01/22/20 23 3:42 PM EST documented as of this encounter Care Teams Grab Jack Man Relationship Specialty Start Date End Date Kathy Villafana MD [address] [place] [phone] PCP - General Family Medicine 08/05/21 [facility] 12/04/24 documented as of this encounter
--- OUTSIDE RECORDS SUMMARY | 2024-12-24 14:37 | XMS_ITS | Encounter Summary ---
Author Organization [employer] Address [address] [place] [address] Care Team Providers Care Instructor [employer] Name Role Phone Kathy Villafana MD Primary Care Provider [phone] Encounter Details Date Type Department Care Team (Late st Contact Info) Description 11/14/2023 Orders Only [facility] [address] [place], [place] [phone] Kathy Villafana MD [address] [place], [place] [phone] Social History Tobacco Use Types Packs/Day Years [...] documented as of this encounter Care Teams Instructor [employer] Relationship Specialty Start Date End Date Kathy Villafana MD [address] [place] [address] PCP - General Family Medicine 08/05/21 [facility] 12/04/24 documented as of this encounter
--- OUTSIDE RECORDS SUMMARY | 2024-12-24 14:37 | XMS_ITS | Encounter Summary ---
Author Organization [employer] Address [address] [facility] [address] [place] [address] Care Team Providers Care Channel Turner Name Role Phone Kathy Villafana MD Primary Care Provider [phone] Encounter Details Date Type Department Care Team (Late st Contact Info) Description 11/17/2022 Orders Only [facility] [address] [place] [address] Mary Ann Skaggs LPN Social History Tobacco [...] on filedocumented in this encounter Care Teams Channel Turner Relationship Specialty Start Date End Date Kathy Villafana MD [address] [place] [address] PCP - General Family Medicine 08/05/21 [facility] 12/04/24 documented as of this encounter
--- OUTSIDE RECORDS SUMMARY | 2024-12-24 14:37 | XMS_ITS | Encounter Summary ---
Author Organization [employer] Address [address] [place] [address] Care Team Providers Care Licensed Occupational Therapist Name Role Phone Kathy Villafana MD Primary Care Provider [phone] Reason for Visit * Reason Comments Med Refill Encounter Details Date Type Department Care Team ([facility] st Contact Info) Description 12/02/2024 Refill [facility] MED[facility]INE [address] [place], [place] [phone] Kathy Villafana MD [address] [place], [place] [phone] Other hyperlipidemia Social History Tobacco Use Types Packs/Day Years [...] as of this encounter Visit Diagnoses Diagnosis Other hyperlipidemia documented in this encounter Additional Health Concerns Assessment Noted Time PHQ-9 Depression Total Score: 0 02/20/20 24 2:34 PM EDT documented as of this encounter Care Teams Licensed Occupational Therapist Relationship Specialty Start Date End Date Kathy Villafana MD [address] [place] [phone] PCP - General Family Medicine 08/05/21 documented as of this encounter
--- OUTSIDE RECORDS SUMMARY | 2024-12-24 14:37 | XMS_ITS | Encounter Summary ---
Author Organization [facility] Address [address] [place] [address] Phone Care Team Providers Care Electric Shovel Operator Name Role Phone Kathy Villafana MD Primary Care Provider [phone] Reason for Visit * Reason Comments Med Refill Encounter Details Date Type Department Care Team (Late st Contact Info) Description 07/14/2022 Refill [facility] [address] [place] [phone] Salty Kim, DO [address] [place] [phone] Social History Tobacco Use Types Packs/Day Years Used Date Smoking Tobacco: Never Smokeless Tobacco: Never Alcohol Use Standard Drinks/Week Comments Never 0 (1 standard drink = 0.6 oz pur e alcohol) Sex and Gender Information Value Date Recorded Sex Assigned at Not on file Legal Sex Male 8:59 AM EDT Gender Identity Not on file Sexual Orientation Not on file documented as of this encounter Plan of Treatment Not on file documented as of this encounter Visit Diagnoses Not on filedocumented in this encounter Care Teams Electric Shovel Operator Relationship Specialty Start Date End Date Kathy Villafana MD PCP - General Jewelry Jobber 10/13/21 documented as of this encounter
--- NOTE | 2024-12-24 15:27 | P.HPHOSP_ITS ---
History of Present Illness Date of Service: 12/24/24 Attending physician on admission: Oscar Morel Chief Complaint: SOB Pt is a 79-year-old male with a PMH significant for?CAD, Alzheimer's dementia, persistent AFib on Eliquis, insulin-dependent type 2 diabetes, CKD 3, HLD, HTN, gout, and GERD who presents to the ED with?difficulty breathing and SOB for the past few days. Pt with dementia at baseline which inhibits detailed HPI, which is supplemented by family at bedside. Pt was recently admitted to the hospital on 11/25/2024-12/03/2024 for acute hypoxic respiratory failure in the setting of CHF, NSTEMI, and RSV infection. Since discharge pt has continued to have nonproductive cough and SOB, though these significantly increased yesterday. Family called EMS where he was evaluated and vitals were stable, and pt was not brought to the ED. This morning pt was shaking and increasing SOB, and EMS was called again where pt was noted to be satting in the low 80s on RA. No nausea, vomiting, diarrhea, abdominal pain. No noticeable increased lower leg edema. Denies chest pain/pressure, palpitations. In the ED pt was hypertensive up to 160/67 initially satting at 80% on RA. Labs were significant for troponin 37.0 and BNP 426 (similar to prior), otherwise grossly unremarkable and baseline for pt. No leukocytosis. Stable normocytic anemia of 10.6/33.8. Creatinine around baseline at 1.42. No significant electrolyte abnormalities. Continue to test positive for RSV, though negative for flu or COVID. CXR showed iytrg-wg-xxixalyz effusions bilaterally with parenchymal opacities throughout lower lobes bilaterally suggestive of edema vs atelectasis vs pneumonia. EKG demonstrated atrial fibrillation with PVCs but no significant ischemic changes from prior. Pt was treated with Bumex 1 mg IV, ceftriaxone, and doxycycline. Pt will be admitted to the hospital for treatment and further evaluation of acute hypoxic respiratory failure in the setting of pneumonia and acute CHF exacerbation. Review of Systems 2 Review of Systems: Negative except for that which is stated in the HPI [facility] Medical History CAD (coronary artery disease) Trash foot Diabetic foot infection Heart failure with preserved ejection fraction HLD (hyperlipidemia) Diabetes mellitus Atrial fibrillation NSTEMI (non-ST elevated myocardial infarction) Alzheimer's dementia Kidney failure Diabetes HTN (hypertension) Family History Father No problems noted. Mother No problems noted. Surgical History No pertinent past surgical history Social History Household Members: Family Household Members Other:: sons and daughter in law Housing: Apartment Do you presently have visiting nurse or other home services: No Alcohol intake: never Patient Tobacco Use Status: Never used Tobacco e-Cigarette/Vaping Use: Never Used Second Hand Smoke Exposure: No Advance Directives: Yes Advance Directives on File: Yes Advance Directives Date on File: 09/06/21 service: No Current occupational status: retired [employer] Allergies Allergy/AdvReac Type Severity Reaction Status Date / Time No Known Allergies Allergy Verified 12/24/24 12:00 Home Medications ?Medication ?Instructions ?Recorded ?Confirmed ?Last Taken ?Type apixaban 5 mg tablet (Eliquis) 5 mg PO BID 09/05/21 12/24/24 11/25/24 History donepezil 10 mg tablet 1 tab PO BEDTIME 09/05/21 12/24/24 11/24/24 History fcejgmbq-zkm-lrwbf acid 0.4 1 tab PO DAILY 09/05/21 12/24/24 11/25/24 History mg-lycopene 300 mcg-lutein 250 mcg tablet ([facility]) allopurinol 100 mg tablet 50 mg PO DAILY gout pain 10/07/21 12/24/24 11/25/24 History insulin syringe-needle U-100 1 mL #10 ea 12/22/21 05/08/22 Unknown History 31 gauge x 5/16 memantine 10 mg tablet 10 mg PO BID 05/08/22 12/24/24 11/25/24 History metoprolol tartrate 100 mg tablet 100 mg PO BID 05/08/22 12/24/24 11/25/24 History cetirizine 10 mg tablet 10 mg PO DAILY congestion 08/17/23 12/24/24 11/25/24 History gabapentin 800 mg tablet 800 mg PO BID 05/17/24 12/24/24 11/25/24 History omeprazole 20 mg capsule,delayed 20 mg PO BID@0630,1630 05/17/24 12/24/24 11/25/24 History release sucralfate 1 gram tablet 1 g PO TIDAC 05/17/24 12/24/24 11/25/24 History magnesium oxide 250 mg PO DAILY 11/25/24 12/24/24 11/25/24 History insulin aspar prt-insulin aspart 76 unit subcut BIDWM 12/24/24 12/24/24 Unknown History 100 unit/mL (70-30) subcutaneous soln (Novolog Mix 70-30 U-100 Insuln) Physical Exam 2 Vital Signs and Narrative: Vital Signs: Last Vital Signs Temp 97.4 F 12/24/24 15:13 Pulse 75 12/24/24 15:13 Resp 18 12/24/24 15:13 BP 156/81 H 12/24/24 15:13 Pulse Ox 94 12/24/24 15:13 O2 Del Method Nasal Cannula 12/24/24 15:13 O2 Flow Rate 2 12/24/24 15:13 Oxygen Flow Rate 2 12/24/24 11:55 BMI result Body Mass Index 37.4 General: AOx1, not to specific place, time, or situation. In no acute distress Resp: CTA bilaterally CVS: Irregularly irregular rhythm GI: +BS, NT, no distention Skin: Warm, dry Neuro: Cranial nerves II-XII grossly intact bilaterally. Motor grossly intact bilaterally Extremities: 1-2+ bilateral pitting edema Psych: Pleasantly confused Results Labs 12/24/24 12:11 12/24/24 12:11 Labs: Laboratory Results - last 24 hr 12/24/24 12/24/24 12/24/24 12:11 12:17 13:24 MCV 94.7 MCH 29.7 MCHC 31.4 RDW 15.2 Plt Count 155 L MPV 11.4 Immature Gran % (Auto) 0.3 Neut % (Auto) 78.4 H Lymph % (Auto) 11.6 L [place] % (Auto) 8.0 Eos % (Auto) 1.3 Baso % (Auto) 0.4 Lymph # (Auto) 0.9 L [place] # (Auto) 0.6 Eos # (Auto) 0.1 Baso # (Auto) 0.0 Abs Immat Gran (auto) 0.02 Absolute Neuts (auto) 6.2 Absolute Nucleated RBC 0.000 Nucleated RBC % (auto) 0.0 VBG pH 7.44 H VBG pCO2 49 VBG pO2 53 VBG HCO3 34 H VBG O2 Saturation 80.0 VBG Base Excess 8.8 Anion Gap 18 Estim Creat Clear Calc 54.3 Estimated GFR 48 Random Glucose 169 H Calcium 8.9 Troponin I High Sens 37.0 H D B-Natriuretic Peptide 426 H Influenza Type A (PCR) NEGATIVE Influenza Type B (PCR) NEGATIVE RSV RNA Qual (PCR) POSITIVE A SARS-CoV-2 RNA (RT-PCR) NEGATIVE Imaging Radiologist's Impressions: Impressions Chest X-Ray 12/24/24 12:20 IMPRESSION: 1. Small to moderate effusions bilaterally with parenchymal opacities throughout the lower lungs bilaterally, possibly atelectasis, alveolar edema, or pneumonia. 2. Cardiomegaly with interstitial and changes of CHF present. Electronically signed by: Shane Griffith MD 12/24/2024 12:38 PM [facility] Assessment and Plan (1) Acute respiratory failure: Status: Acute (2) Hypoxia: Status: Acute (3) Pneumonia: Status: Acute Plan Pt is a 79-year-old male with a PMH significant for?CAD, Alzheimer's dementia, persistent AFib on Eliquis, insulin-dependent type 2 diabetes, CKD 3, HLD, HTN, gout, and GERD who presents to the ED with?difficulty breathing and SOB for the past few days. Pt will be admitted to the hospital for treatment and further evaluation of acute hypoxic respiratory failure in the setting of pneumonia and acute CHF exacerbation. Acute hypoxic respiratory failure likely multifactorial: in the setting of CHF exacerbation and bibasilar pneumonia Pt desatting into the low 80s on RA, elevated BNP, lower leg edema, CXR showing possible bibasilar pneumonia No sepsis: No tachycardia, tachypnea, fever, or leukocytosis Will treat with Bumex 1 mg IV b.i.d. Will empirically cover with ceftriaxone and doxycycline, started 12/24/2024 Monitor I/O, daily weight, lytes Titrate supplemental O2 >92, wean as tolerated Monitor on telemetry Persistent AFib Continue metoprolol, Eliquis Insulin-dependent type [address] on sliding scale insulin Diabetic diet HTN Amlodipine CAD Aspirin, statin Gout Allopurinol BPH Continue tamsulosin Dementia Continue memantine, donepezil Full Code Attending:? DVT Prophylaxis: Lovenox Pt will require a hospitalization of at least two nights for treatment of?acute hypoxic respiratory failure in the setting of pneumonia and acute CHF exacerbation. Pt will require hospitalization for administration of supplemental oxygen, IV antibiotics, and IV diuretics. Quality Stroke Does the patient have a stroke diagnosis?: No VTE Prior VTE?: No VTE Risk Level:: Medical - moderate - high VTE Device Contraindication: Treatment Not Indicated VTE Drug Contraindication: N/A - Med Ordered
--- NOTE | 2024-12-24 16:10 | PHA.MEDREC ---
Addendum entered by Carmine Buchanan [facility] 12/24/24 16:21: med rec reviewed Original Note: Pharmacy Consult ? Medication Reconciliation Pharmacy has completed the medication reconciliation. Spoke to patient cuauhtemoc Butcher over the phone through [employer] ( #[phone]) to confirm med list. Son states he doesn't know what medications his farther takes because he isn't home to look at his list. Son states patient receives a medBox from [facility] pharmacy. Utilized claims and list from pharmacy to confirm med list.
[2024-12-24] MEDS: Omeprazole 20 MG CAPSULE.DR PO (17:36)
[2024-12-24] MEDS: Sucralfate 1 GM TABLET PO (17:36)
[2024-12-24 18:09] LABS: Glucose, Whole Blood 207 mg/dL (60-115)
[2024-12-24] MEDS: Insulin Lispro 100 UNIT/ML 3 ML VIAL SUBCUT (18:30)
[2024-12-24] MEDS: Memantine HCl 10 MG TABLET PO (22:55)
[2024-12-24] MEDS: Tamsulosin HCL 0.4 MG CAPSULE PO (22:55)
[2024-12-24] MEDS: Donepezil HCl 10 MG TABLET PO (22:55)
[2024-12-24] MEDS: Atorvastatin Calcium 40 MG TABLET PO (22:55)
[2024-12-24] MEDS: Gabapentin 400 MG CAPSULE 800 MG PO (22:55)
[2024-12-24] MEDS: Apixaban 5 MG TABLET PO (22:55)
[2024-12-24] MEDS: Metoprolol Tartrate 100 MG TABLET PO (22:56)
[2024-12-24 23:11] LABS: Glucose, Whole Blood 267 mg/dL (60-115)
[2024-12-24] MEDS: INSULIN ASP PRT INSULIN ASPART 76 EACH SUBCUT (23:13)
[2024-12-24] MEDS: 0.9 % Sodium Chloride Flush 3 ML SYRINGE IVFLUSH (23:15)
[2024-12-25] MEDS: Doxycycline Hyclate 100 MG in 0.9 % Sodium Chloride 250 ML 166.67 MG IV ×2 (02:21→12:10)
[2024-12-25 03:11] VITALS: BP 142/66; PULSE 71; RESP 18; TEMP 36.8; O2SAT 91
[2024-12-25 06:00] VITALS: BMI 36.1
[2024-12-25] MEDS: Omeprazole 20 MG CAPSULE.DR PO ×2 (06:06→16:51)
[2024-12-25] MEDS: Sucralfate 1 GM TABLET PO ×3 (06:06→16:51)
[2024-12-25 07:39] LABS: Anion Gap 14 (12-20); Blood Urea Nitrogen 31 mg/dL (9-16); Calcium 8.7 mg/dL (8.4-10.2); Carbon Dioxide 29 mmol/L (22-29); Chloride 102 mmol/L (96-108); Creatinine Clr Calc Pharmacy 56.5; Estimated Glomerular Filt Rate 51; Potassium 3.9 mmol/L (3.3-5.1); Sodium 141 mmol/L (135-145)
[2024-12-25 07:42] VITALS: BP 134/61; PULSE 62; RESP 20; TEMP 36.5; O2SAT 94
[2024-12-25 07:42] LABS: Glucose Random 54 mg/dL (60-115)
[2024-12-25 07:43] LABS: Glucose, Whole Blood 63 mg/dL (60-115)
[2024-12-25] MEDS: Dextrose 50 % 25 GM/50 ML SYRINGE IVPUSH (07:50)
[2024-12-25] MEDS: 0.9 % Sodium Chloride Flush 3 ML SYRINGE IVFLUSH ×3 (07:58→21:04)
[2024-12-25] MEDS: allopurinoL 100 MG TABLET 50 MG PO (08:15)
[2024-12-25] MEDS: Loratadine 10 MG TABLET PO (08:16)
[2024-12-25] MEDS: Memantine HCl 10 MG TABLET PO ×2 (08:16→21:03)
[2024-12-25] MEDS: Gabapentin 400 MG CAPSULE 800 MG PO ×2 (08:16→21:03)
[2024-12-25] MEDS: Multivitamin TABLET 1 TAB PO (08:16)
[2024-12-25] MEDS: Aspirin 81 MG TAB.CHEW PO (08:16)
[2024-12-25] MEDS: amLODIPine Besylate 2.5 MG TABLET PO (08:16)
[2024-12-25] MEDS: Apixaban 5 MG TABLET PO ×2 (08:16→21:03)
[2024-12-25] MEDS: Metoprolol Tartrate 100 MG TABLET PO ×2 (08:16→21:03)
[2024-12-25] MEDS: Isosorbide Mononitrate 60 MG TAB.ER.24H PO (08:16)
[2024-12-25] MEDS: Magnesium Oxide 400 MG TABLET 200 MG PO (08:17)
[2024-12-25 08:24] LABS: Glucose, Whole Blood 175 mg/dL (60-115)
[2024-12-25] MEDS: Bumetanide 1 MG/4 ML VIAL IVPUSH (08:25)
[2024-12-25 11:25] VITALS: BP 116/54; PULSE 62; RESP 20; TEMP 36.2; O2SAT 94
--- NOTE | 2024-12-25 11:40 | MHC.CM.PN ---
Patient is here with Alzheimer's Dementia; CM spoke with Son/HCP/Hadley @ [phone] and addressed IMM with him (original will be mailed certified letter to Hadley and a copy will be placed on the chart). Patient lives in an apartment with Hadley and he had a [employer] CR[employer]OLOGIST, RN , & PT PULLEY WORKER. DC plan is TBD; when CM spoke with Hadley with the assist of a Telephonic [employer], he said, my father is in the hospital dying. CM has initiated and will follow for dc planning. PCP is Dr. Kathy Villafana and transportation at dc is TBD. CM will follow.
--- NOTE | 2024-12-25 11:48 | HO.PM.IMPN ---
Subjective Subjective Date of Service: 12/25/24 Interval History: seen and examined pleasantly confused -- knows name, but not which hospital or why reports breathing regular Review of Systems Negative except HPI/interval history. Physical Exam Vital Signs: Vital Signs: Last Vital Signs Temp 97.2 F 12/25/24 11:25 Pulse 62 12/25/24 11:25 Resp 20 12/25/24 11:25 BP 116/54 L 12/25/24 11:25 Pulse Ox 94 12/25/24 11:25 O2 Del Method Nasal Cannula 12/25/24 11:25 O2 Flow Rate 2 12/25/24 11:25 Oxygen Flow Rate 2 12/24/24 11:55 BMI result Body Mass Index 36.1 Objective Data Active Medications Acetaminophen (Acetaminophen 325 Mg Tablet) 650 mg PO Q6H PRN PRN Reason: Pain, Mild 1-3,fever,headache Allopurinol (Allopurinol 100 Mg Tablet) 50 mg PO DAILY [facility] Last Admin: 12/25/24 08:15 Dose: 50 mg Documented By: LUCRETIA Amlodipine Besylate (Amlodipine Besylate 2.5 Mg Tablet) 2.5 mg PO DAILY [facility]; Protocol Last Admin: 12/25/24 08:16 Dose: 2.5 mg Documented By: LUCRETIA Apixaban (Apixaban 5 Mg Tablet) 5 mg PO BID [facility] Last Admin: 12/25/24 08:16 Dose: 5 mg Documented By: LUCRETIA Aspirin (Aspirin 81 Mg Tab.Chew) 81 mg PO DAILY [facility] Last Admin: 12/25/24 08:16 Dose: 81 mg Documented By: LUCRETIA Atorvastatin Calcium (Atorvastatin Calcium 40 Mg Tablet) 40 mg PO BEDTIME [facility] Last Admin: 12/24/24 22:55 Dose: 40 mg Documented By: JOHNIE Bumetanide (Bumetanide 1 Mg/4 Ml Vial) 1 mg IVPUSH BID@0900,1700 [facility]; Protocol Last Admin: 12/25/24 08:25 Dose: 1 mg Documented By: LUCRETIA Calcium Carbonate (Calcium Carbonate 750 Mg Tab.Chew) 750 mg PO Q4H PRN PRN Reason: Heartburn Ceftriaxone Sodium (Ceftriaxone Sodium 1 Gm Vial) 1 gm IVPUSH Q24H [facility] Dextrose (Dextrose 50 % 25 Gm/50 Ml Syringe) 25 gm IVPUSH Q15M PRN; Protocol PRN Reason: per Hypoglycemia Standing Ord. Last Admin: 12/25/24 07:50 Dose: 25 gm Documented By: LUCRETIA Donepezil HCl (Donepezil Hcl 10 Mg Tablet) 10 mg PO BEDTIME [facility] Last Admin: 12/24/24 22:55 Dose: 10 mg Documented By: JOHNIE Gabapentin (Gabapentin 400 Mg Capsule) 800 mg PO BID [facility] Last Admin: 12/25/24 08:16 Dose: 800 mg Documented By: LUCRETIA Glucose (Glucose Gel 15 Gm Gel..Gram.) 15 gm PO Q15M PRN; Protocol PRN Reason: per Hypoglycemia Standing Ord. Guaifenesin/Dextromethorphan (Guaifenesin Dm 200/20/10 Ml 10 Ml Syrup) 10 ml PO Q4H PRN PRN Reason: Cough Doxycycline Hyclate 100 mg/ (Sodium Chloride) 250 mls @ 166.67 mls/hr IV Q12H [facility] Last Infusion: 12/25/24 03:58 Dose: Infused Documented By: MAYRA Isosorbide Mononitrate (Isosorbide Mononitrate 60 Mg Tab.Er.24h) 60 mg PO DAILY [facility]; Protocol Last Admin: 12/25/24 08:16 Dose: 60 mg Documented By: LUCRETIA Loratadine (Loratadine 10 Mg Tablet) 10 mg PO DAILY [facility] Last Admin: 12/25/24 08:16 Dose: 10 mg Documented By: LUCRETIA Magnesium Hydroxide (Milk Of Magnesia 30 Ml Oral.Susp) 30 ml PO DAILY PRN PRN Reason: Constipation Magnesium Oxide (Magnesium Oxide 400 Mg Tablet) 200 mg PO DAILY [facility] Last Admin: 12/25/24 08:17 Dose: 200 mg Documented By: LUCRETIA Melatonin (Melatonin 3 Mg Tablet) 6 mg PO BEDTIME PRN PRN Reason: Insomnia Memantine (Memantine Hcl 10 Mg Tablet) 10 mg PO BID [facility] Last Admin: 12/25/24 08:16 Dose: 10 mg Documented By: LUCRETIA Metoprolol Tartrate (Metoprolol Tartrate 100 Mg Tablet) 100 mg PO BID [facility]; Protocol Last Admin: 12/25/24 08:16 Dose: 100 mg Documented By: LUCRETIA Multivitamins/Vitamin C (Multivitamin Tablet) 1 tab PO DAILY [facility] Last Admin: 12/25/24 08:16 Dose: 1 tab Documented By: LUCRETIA Pt Own (Insulin Asp Prt-Insulin Aspart [ Novolog Mix 70-30 U- 100 Insuln] 76 unit SUBCUT BIDWM [facility] Last Admin: 12/25/24 08:31 Dose: Not Given Documented By: LUCRETIA Non-Admin Reason: low poc this AMMD held med Omeprazole (Omeprazole 20 Mg Capsule.Dr) 20 mg PO BID@0630,1630 [facility] Last Admin: 12/25/24 06:06 Dose: 20 mg Documented By: MAYRA Ondansetron HCl (Ondansetron Hcl 4 Mg/2 Ml Vial) 4 mg IVPUSH Q8H PRN PRN Reason: Nausea and Vomiting Sodium Chloride (0.9 % Sodium Chloride Flush 3 Ml Syringe) 3 ml IVFLUSH QSHIFT [facility] Last Admin: 12/25/24 07:58 Dose: 3 ml Documented By: LUCRETIA Sucralfate (Sucralfate 1 Gm Tablet) 1 gm PO TIDAC [facility] Last Admin: 12/25/24 06:06 Dose: 1 gm Documented By: MAYRA Tamsulosin HCl (Tamsulosin Hcl 0.4 Mg Capsule) 0.4 mg PO BEDTIME [facility] Last Admin: 12/24/24 22:55 Dose: 0.4 mg Documented By: NIRMALTYBAI Labs 12/24/24 12:11 12/25/24 06:42 Labs: Laboratory Results - last 24 hr 12/24/24 12/24/24 12/24/24 12:11 12:17 13:24 MCV 94.7 MCH 29.7 MCHC 31.4 RDW 15.2 Plt Count 155 L MPV 11.4 Immature Gran % (Auto) 0.3 Neut % (Auto) 78.4 H Lymph % (Auto) 11.6 L [place] % (Auto) 8.0 Eos % (Auto) 1.3 Baso % (Auto) 0.4 Lymph # (Auto) 0.9 L [place] # (Auto) 0.6 Eos # (Auto) 0.1 Baso # (Auto) 0.0 Abs Immat Gran (auto) 0.02 Absolute Neuts (auto) 6.2 Absolute Nucleated RBC 0.000 Nucleated RBC % (auto) 0.0 VBG pH 7.44 H VBG pCO2 49 VBG pO2 53 VBG HCO3 34 H VBG O2 Saturation 80.0 VBG Base Excess 8.8 Anion Gap 18 Estim Creat Clear Calc 54.3 Estimated GFR 48 POC Glucose Random Glucose 169 H Calcium 8.9 Troponin I High Sens 37.0 H D B-Natriuretic Peptide 426 H Influenza Type A (PCR) NEGATIVE Influenza Type B (PCR) NEGATIVE RSV RNA Qual (PCR) POSITIVE A SARS-CoV-2 RNA (RT-PCR) NEGATIVE 12/24/24 12/24/24 12/24/24 18:00 18:59 20:52 MCV MCH MCHC RDW Plt Count MPV Immature Gran % (Auto) Neut % (Auto) Lymph % (Auto) [place] % (Auto) Eos % (Auto) Baso % (Auto) Lymph # (Auto) [place] # (Auto) Eos # (Auto) Baso # (Auto) Abs Immat Gran (auto) Absolute Neuts (auto) Absolute Nucleated RBC Nucleated RBC % (auto) VBG pH VBG pCO2 VBG pO2 VBG HCO3 VBG O2 Saturation VBG Base Excess Anion Gap Estim Creat Clear Calc Estimated GFR POC Glucose 207 H 267 H Random Glucose Calcium Troponin I High Sens 26.0 B-Natriuretic Peptide Influenza Type A (PCR) Influenza Type B (PCR) RSV RNA Qual (PCR) SARS-CoV-2 RNA (RT-PCR) 12/25/24 12/25/24 12/25/24 06:42 07:31 08:11 MCV MCH MCHC RDW Plt Count MPV Immature Gran % (Auto) Neut % (Auto) Lymph % (Auto) [place] % (Auto) Eos % (Auto) Baso % (Auto) Lymph # (Auto) [place] # (Auto) Eos # (Auto) Baso # (Auto) Abs Immat Gran (auto) Absolute Neuts (auto) Absolute Nucleated RBC Nucleated RBC % (auto) VBG pH VBG pCO2 VBG pO2 VBG HCO3 VBG O2 Saturation VBG Base Excess Anion Gap 14 Estim Creat Clear Calc 56.5 Estimated GFR 51 POC Glucose 63 175 H Random Glucose 54 L* Calcium 8.7 Troponin I High Sens B-Natriuretic Peptide Influenza Type A (PCR) Influenza Type B (PCR) RSV RNA Qual (PCR) SARS-CoV-2 RNA (RT-PCR) Assessment and Plan (1) Acute hypoxic respiratory failure: Status: Acute (2) CHF exacerbation: Status: Acute Plan Pt is a 79-year-old male with a PMH significant for?CAD, Alzheimer's dementia, persistent AFib on Eliquis, insulin-dependent type 2 diabetes, CKD 3, HLD, HTN, gout, and GERD who presents to the ED with?difficulty breathing and SOB for the past few days. Pt will be admitted to the hospital for treatment and further evaluation of acute hypoxic respiratory failure in the setting of pneumonia and acute CHF exacerbation. Acute hypoxic respiratory failure likely multifactorial due to HFrEF (last echo showing 20-25%) + bacterial pneumonia IV bumex IV rocephin/doxy - day #2 i/o; weights monitor on telel Persistent AFib Continue metoprolol, Eliquis Insulin-dependent type 2 diabetes with hypoglycemia this AM with symptoms on 70/30 at home hold all insulin today and add back sliding scale if needed HTN Amlodipine CAD Aspirin, statin Gout Allopurinol BPH Continue tamsulosin Dementia Continue memantine, donepezil Full Code DVT pptx - eliquis Quality Stroke Does the patient have a stroke diagnosis?: No VTE Prior VTE?: No VTE Risk Level:: Medical - moderate - high VTE Device Contraindication: Treatment Not Indicated VTE Drug Contraindication: N/A - Med Ordered
[2024-12-25] MEDS: cefTRIAXone sodium 1 GM VIAL IVPUSH (12:03)
[2024-12-25 13:43] LABS: Glucose, Whole Blood 297 mg/dL (60-115)
[2024-12-25 15:51] VITALS: BP 143/72; PULSE 66; RESP 20; TEMP 36.4; O2SAT 94
[2024-12-25 16:53] LABS: Glucose, Whole Blood 333 mg/dL (60-115)
[2024-12-25 19:48] VITALS: BP 136/73; PULSE 65; RESP 22; TEMP 36.3; O2SAT 92
[2024-12-25 20:49] LABS: Glucose, Whole Blood 340 mg/dL (60-115)
[2024-12-25 21:01] LABS: Glucose, Whole Blood 265 mg/dL (60-115)
[2024-12-25] MEDS: Atorvastatin Calcium 40 MG TABLET PO (21:03)
[2024-12-25] MEDS: Tamsulosin HCL 0.4 MG CAPSULE PO (21:03)
[2024-12-25] MEDS: Donepezil HCl 10 MG TABLET PO (21:03)
[2024-12-25 23:50] VITALS: BP 148/70; PULSE 93; RESP 18; TEMP 36.4; O2SAT 92
[2024-12-26] MEDS: Doxycycline Hyclate 100 MG in 0.9 % Sodium Chloride 250 ML 166.67 MG IV ×2 (00:32→11:53)
[2024-12-26 04:00] VITALS: BP 140/61; PULSE 62; RESP 20; TEMP 36.4; O2SAT 91
[2024-12-26] MEDS: Sucralfate 1 GM TABLET PO ×2 (05:16→11:53)
[2024-12-26] MEDS: Omeprazole 20 MG CAPSULE.DR PO (05:16)
[2024-12-26 06:00] VITALS: BMI 36.4
[2024-12-26 07:02] VITALS: BP 165/82; PULSE 69; RESP 18; TEMP 36.5; O2SAT 95
[2024-12-26 07:08] LABS: Glucose, Whole Blood 233 mg/dL (60-115)
[2024-12-26] MEDS: Loratadine 10 MG TABLET PO (07:43)
[2024-12-26] MEDS: Memantine HCl 10 MG TABLET PO (07:43)
[2024-12-26] MEDS: Apixaban 5 MG TABLET PO (07:43)
[2024-12-26] MEDS: Isosorbide Mononitrate 60 MG TAB.ER.24H PO (07:43)
[2024-12-26] MEDS: Multivitamin TABLET 1 TAB PO (07:43)
[2024-12-26] MEDS: Aspirin 81 MG TAB.CHEW PO (07:43)
[2024-12-26] MEDS: amLODIPine Besylate 2.5 MG TABLET PO (07:43)
[2024-12-26] MEDS: allopurinoL 100 MG TABLET 50 MG PO (07:43)
[2024-12-26] MEDS: Gabapentin 400 MG CAPSULE 800 MG PO (07:44)
[2024-12-26] MEDS: Metoprolol Tartrate 100 MG TABLET PO (07:44)
[2024-12-26] MEDS: Bumetanide 1 MG/4 ML VIAL IVPUSH (07:44)
[2024-12-26] MEDS: Magnesium Oxide 400 MG TABLET 200 MG PO (07:44)
[2024-12-26] MEDS: 0.9 % Sodium Chloride Flush 3 ML SYRINGE IVFLUSH (07:54)
[2024-12-26 10:48] LABS: Anion Gap 13 (12-20); Blood Urea Nitrogen 29 mg/dL (9-16); Calcium 9.2 mg/dL (8.4-10.2); Carbon Dioxide 31 mmol/L (22-29); Chloride 100 mmol/L (96-108); Creatinine Clr Calc Pharmacy 53.6; Estimated Glomerular Filt Rate 48; Glucose Random 257 mg/dL (60-115); Potassium 4.2 mmol/L (3.3-5.1); Sodium 140 mmol/L (135-145)
--- NOTE | 2024-12-26 11:01 | PM.DS ---
DS: Providers Provider Date of Service: 12/26/24 Date of admission: 12/24/24 16:13 Date of discharge: 12/26/24 Primary care physician: Kathy Villafana MD DS: Diagnosis Discharge Diagnosis (1) Acute hypoxic respiratory failure: Status: Acute (2) CHF exacerbation: Status: Acute DS: Summary Hospital Course Hospital Course: HPI From admission H&P: Pt is a 79-year-old male with a PMH significant for?CAD, Alzheimer's dementia, persistent AFib on Eliquis, insulin-dependent type 2 diabetes, CKD 3, HLD, HTN, gout, and GERD who presents to the ED with?difficulty breathing and SOB for the past few days. Pt with dementia at baseline which inhibits detailed HPI, which is supplemented by family at bedside. Pt was recently admitted to the hospital on 11/25/2024-12/03/2024 for acute hypoxic respiratory failure in the setting of CHF, NSTEMI, and RSV infection. Since discharge pt has continued to have nonproductive cough and SOB, though these significantly increased yesterday. Family called EMS where he was evaluated and vitals were stable, and pt was not brought to the ED. This morning pt was shaking and increasing SOB, and EMS was called again where pt was noted to be satting in the low 80s on RA. No nausea, vomiting, diarrhea, abdominal pain. No noticeable increased lower leg edema. Denies chest pain/pressure, palpitations. In the ED pt was hypertensive up to 160/67 initially satting at 80% on RA. Labs were significant for troponin 37.0 and BNP 426 (similar to prior), otherwise grossly unremarkable and baseline for pt. No leukocytosis. Stable normocytic anemia of 10.6/33.8. Creatinine around baseline at 1.42. No significant electrolyte abnormalities. Continue to test positive for RSV, though negative for flu or COVID. CXR showed yeegb-ip-rdrqkiuw effusions bilaterally with parenchymal opacities throughout lower lobes bilaterally suggestive of edema vs atelectasis vs pneumonia. EKG demonstrated atrial fibrillation with PVCs but no significant ischemic changes from prior. Pt was treated with Bumex 1 mg IV, ceftriaxone, and doxycycline. Pt will be admitted to the hospital for treatment and further evaluation of acute hypoxic respiratory failure in the setting of pneumonia and acute CHF exacerbation Hospital Course: Patient was started on IV diuretics for his acute on chronic heart failure with preserved ejection fraction. For his possible bacterial pneumonia, he was initiated on IV doxycycline and ceftriaxone. Over the course of his hospitalization, the patient has diuresed well and is now tolerating his baseline 2 L of oxygen. His blood cultures have remained negative and he has been afebrile. He will be transitioned to oral doxycycline and Ceftin for 5 more days. He can resume his baseline Bumex at 1 mg daily. Of note, the patient has remained persistently positive for RSV since his last admission, although this is unlikely playing a role. Patient's hospital course was complicated by hypoglycemia. His home insulin regimen was adjusted. A discussion was held with the patient's son who manages insulin at home. He seems to have a very clear understanding of how to manage this and can resume what they are doing at home. The patient is seen and examined on day of discharge. He is stable for discharge. Final discharge diagnoses 1. Acute on chronic hypoxic respiratory failure 2. Acute on chronic heart failure with preserved ejection fraction exacerbation 3. Bacterial pneumonia 4. Persistent AFib 5. Insulin-dependent diabetes mellitus with hypo and hyperglycemia 6. Hypertension 7. CKD stage 3 8. Gout 9. BP 10. Alzheimer's dementia Time Attestation Discharge Coordination Time (in mins): 40 Quality: Safe Use of Opioids Does Pt have an Active Cancer Diagnosis on the Problem List?: No Quality: Stroke Does the patient have a stroke diagnosis?: No Physical Exam Vital Signs: Vital Signs: Last Vital Signs Temp 97.7 F 12/26/24 07:02 Pulse 69 12/26/24 07:02 Resp 18 12/26/24 07:02 BP 165/82 H 12/26/24 07:02 Pulse Ox 95 12/26/24 07:02 O2 Del Method Nasal Cannula 12/26/24 07:02 O2 Flow Rate 2 12/26/24 07:02 Oxygen Flow Rate 2 12/24/24 11:55 BMI result Body Mass Index 36.4 Const: Other: General - no acute distress, appears comfortable Cardiovascular - regular rate and rhythm, S1-S2 Lungs - no rales; breathing comfortably on 2L Abdomen - soft, nontender, no rebound or guarding Extremities - min pedal edema Neuro - awake and alert, no focal deficits DS: Data Data Completed and Pending Completed studies during hospitalization [Text1]: Procedures Control Bleeding in Gastrointestinal Tract, Via Natural or Artificial Opening Endoscopic (08/17/23) Excision of Right Foot Skin, External Approach (10/07/21) Excision of Stomach, Pylorus, Via Natural or Artificial Opening Endoscopic, Diagnostic (08/17/23) Insertion of Infusion Device into Upper Vein, Percutaneous Approach (11/27/24) Introduction of Mineral-based Topical Hemostatic Agent into Upper GI, Via Natural or Artificial Opening Endoscopic, [employer] 6 (08/17/23) Introduction of Other Therapeutic Substance into Upper GI, Via Natural or Artificial Opening Endoscopic (08/17/23) Transfusion of Nonautologous Frozen Plasma into Peripheral Vein, Percutaneous Approach (08/17/23) Transfusion of Nonautologous Red Blood Cells into Peripheral Vein, Percutaneous Approach (08/17/23) Labs on day of discharge: Laboratory Results - last 24 hr 12/25/24 12/25/24 12/25/24 11:24 15:50 18:11 Sodium Potassium Chloride Carbon Dioxide Anion Gap BUN Creatinine Estim Creat Clear Calc Estimated GFR POC Glucose 297 H 333 H 340 H Random Glucose Calcium 12/25/24 12/26/24 12/26/24 20:37 07:00 10:19 Sodium 140 Potassium 4.2 Chloride 100 Carbon Dioxide 31 H Anion Gap 13 BUN 29 H Creatinine 1.42 H Estim Creat Clear Calc 53.6 Estimated GFR 48 POC Glucose 265 H 233 H Random Glucose 257 H Calcium 9.2 Discharge Plan Discharge Anticipated Discharge Date/Time: 12/26/24 10:57 Patient Disposition: Home Health Service Discharge Diagnosis: CHF, RSV Referrals: Kathy Villafana MD [Primary Care Provider] - 1 Week Discharge Medications: New doxycycline monohydrate 100 mg capsule 100 mg PO BID Qty: 10 0RF cefuroxime axetil 500 mg tablet 500 mg PO Q12H Qty: 10 0RF Continued Eliquis 5 mg tablet 5 mg PO BID donepezil 10 mg tablet 1 tab PO BEDTIME CertaVite Senior 0.4-300-250 mg-mcg-mcg tablet 1 tab PO DAILY atorvastatin [Lipitor] 40 mg tablet 40 mg PO BEDTIME Qty: 30 0RF metoprolol tartrate 100 mg tablet 100 mg PO BID memantine 10 mg tablet 10 mg PO BID allopurinol 100 mg tablet 50 mg PO DAILY (DME) lancets [Lancets,Ultra Thin] Misc See Rx Instructions .Route Qty: 100 0RF Rx Instructions: As directed cetirizine 10 mg tablet 10 mg PO DAILY magnesium oxide 250 mg magnesium tablet 250 mg PO DAILY isosorbide mononitrate 60 mg Tablet Extended Release 24 Hr 60 mg PO DAILY Qty: 90 0RF Protocol: Hold for SBP< HOLD for SBP < : 90 aspirin 81 mg Tablet,Chewable 81 mg PO DAILY Qty: 60 0RF amlodipine 5 mg tablet 2.5 mg PO DAILY Qty: 90 0RF bumetanide 1 mg tablet 1 mg PO DAILY Qty: 90 0RF tamsulosin [Flomax] 0.4 mg capsule 0.4 mg PO BEDTIME Qty: 60 0RF insulin asp prt-insulin aspart [Novolog Mix 70-30 U-100 Insuln] 100 unit/mL (70-30) solution 76 unit subcut BIDWM Rx Instructions: INJECT 76 UNITS SUBCUTANEOUSLY TWICE DAILY WITH BREAKFAST AND WITH DINNER gabapentin 800 mg tablet 800 mg PO BID omeprazole 20 mg capsule,delayed release(DR/EC) 20 mg PO BID@0630,1630 sucralfate 1 gram tablet 1 g PO TIDAC (DME) insulin syringe-needle U-100 1 mL 31 gauge x 5/16 syringe See Rx Instructions subcut TID Qty: 10 Rx Instructions: As directed Discharge Orders: Discharge Order (Routine); Ordered 12/26/24 Ordered By: Oscar Morel Diet: Advance to usual diet Activity on Discharge: As tolerated Stand Alone Forms: Patient Portal Discharge page Print Language: Armenian Care Plan Goals: To stay healthy and out of the hospital. Health Concerns: see discharge summary Plan of Treatment: see discharge summary Assessment: see discharge summary
[2024-12-26 11:10] VITALS: BP 138/63; PULSE 74; RESP 18; TEMP 36.6; O2SAT 96
[2024-12-26 11:17] LABS: Glucose, Whole Blood 240 mg/dL (60-115)
[2024-12-26] MEDS: cefTRIAXone sodium 1 GM VIAL IVPUSH (11:53)
--- NOTE | 2024-12-26 12:05 | MHC.CM.PN ---
PT MEDICALLY CLEARED FOR DC HOME W/RESUMP OF CAREER ADVISOR/SN/PT (UNSURE OF VNA) AND FAMILY SUPPORT, [place] FOR BLS TRANSPORT AT 3:30. [facility] BOOKING ID#[id number]
[2024-12-26 15:53] VITALS: BP 172/79; PULSE 75; RESP 20; TEMP 36.8; O2SAT 94
== END 2024-12-26 16:11 | disposition home health service (06) | DRG 193 ==
LOC: HO.ED 12:19 → HO.EDOVER 16:36 → HO.IMC 17:09
PROVIDERS: Admitting Provider Student in an Organized Health Care Education/Training Program; Emergency Provider Emergency Medicine; PCP General Practice; Visit Provider Family Medicine
DX: J15.9 Unspecified bacterial pneumonia (principal); I50.33 Acute on chronic diastolic (congestive) heart failure; J96.01 Acute respiratory failure with hypoxia; I13.0 Hypertensive heart and chronic kidney disease with heart failure and stage 1 through stage 4 chronic kidney disease, or unspecified chronic kidney disease; I48.19 Other persistent atrial fibrillation; J98.11 Atelectasis; N18.30 Chronic kidney disease, stage 3 unspecified; E78.5 Hyperlipidemia, unspecified; G30.9 Alzheimer's disease, unspecified; M10.9 Gout, unspecified; E11.649 Type 2 diabetes mellitus with hypoglycemia without coma; N40.0 Benign prostatic hyperplasia without lower urinary tract symptoms; F02.80 Dementia in other diseases classified elsewhere, unspecified severity, without behavioral disturbance, psychotic disturbance, mood disturbance, and anxiety; D63.1 Anemia in chronic kidney disease; E11.65 Type 2 diabetes mellitus with hyperglycemia; B97.4 Respiratory syncytial virus as the cause of diseases classified elsewhere; I25.10 Atherosclerotic heart disease of native coronary artery without angina pectoris; E11.22 Type 2 diabetes mellitus with diabetic chronic kidney disease; Z99.81 Dependence on supplemental oxygen; Z79.4 Long term (current) use of insulin; Z79.01 Long term (current) use of anticoagulants; Z79.82 Long term (current) use of aspirin; Z79.899 Other long term (current) drug therapy
CPT/HCPCS: 0241U; 36415; 71045; 80048; 82803; 82947; 83880; 84484; 85025; 93005; 99285; J0696; J1939

== ENCOUNTER → 2024-12-24 11:53 | Outpatient (BNV) | payer OTHER, SELFPAY | PROVIDERS: Emergency Provider Emergency Medicine; Visit Provider Radiology Diagnostic Radiology | DX: J90 Pleural effusion, not elsewhere classified (principal); I51.7 Cardiomegaly; R91.8 Other nonspecific abnormal finding of lung field | CPT/HCPCS: 71045 ==

== ENCOUNTER → 2024-12-24 16:13 | Outpatient (BNV) | payer OTHER, SELFPAY | PROVIDERS: Admitting Provider Student in an Organized Health Care Education/Training Program; Emergency Provider Emergency Medicine; Visit Provider Student in an Organized Health Care Education/Training Program | DX: J96.00 Acute respiratory failure, unspecified whether with hypoxia or hypercapnia (principal); J18.9 Pneumonia, unspecified organism; J96.01 Acute respiratory failure with hypoxia; I50.9 Heart failure, unspecified | CPT/HCPCS: 99223; 99233 ==

== ENCOUNTER 2025-01-06 14:36 | Emergency (ER) | payer OTHER, SELFPAY ==
--- NOTE | ~2025-01-06 | XR_ITS ---
EXAMINATION: XR CHEST CLINICAL INFORMATION: dyspnea COMPARISON: 12/24/2024. TECHNIQUE: Frontal view of the chest was obtained. FINDINGS: There is leftward rotation. There is cardiac enlargement. There is moderate interstitial pulmonary edema, with layering small to moderate-sized effusions and bibasilar airspace subluxations, presumably atelectasis. Pneumonia is not excluded. XR/XR chest 1V IMPRESSION: Cardiomegaly, CHF with interstitial edema and bilateral small to moderate layering effusions with underlying parenchymal consolidations. Examination is quite similar to the previous. Electronically signed by: Shane Griffith MD 01/06/2025 04:29 PM [facility]
[2025-01-06 14:53] VITALS: BP 136/80; PULSE 71; O2SAT 96
--- NOTE | 2025-01-06 14:53 | ED.GENADULT ---
HPI - General Adult General Chief complaint: Upper Respiratory Symptoms Stated complaint: LOW O2 SAT/90% PER CAREGIVER AFTER PT TOOK NC OFF Time Seen by Provider: 01/06/25 14:53 Source: patient Mode of arrival: EMS Limitations: other (ALZHEIMER'S DEMENTIA) History of Present Illness HPI narrative: This is a 79-year-old man with a past medical history of CAD, Alzheimer's dementia, atrial fibrillation on Eliquis, insulin-dependent diabetes mellitus, CKD, hypertension, hyperlipidemia, gout, GERD, recent admission November 2024 or CHF/RSV/community-acquired pneumonia who is brought in by EMS for evaluation due to concern of low oxygen level. History is limited from the patient due to history of dementia. History is obtained from patient's son who is present at the bedside. History is obtained utilizing professional in-person supervisor home restoration service. Son states that patient was at home and noted that his father had removed his supplemental oxygen nasal cannula. Son states that he believes he does this because it dries his nares. He states that when his father did this he noted that his oxygen level was low at 86%. He states that he reapplied the nasal cannula and that the oxygen returned greater than 94-95%. He states that he uses 2 liters/minute when resting and 4 liters/minute when exerting himself. He states no change or increase oxygen requirement at home. He states no fevers, cough, congestion. She states no traumatic injuries or falls recently. He states no vomiting or changes in bowel habits. He States that he is eating well, urinating normally and use the restroom without difficulty. He apologizes for being here and states that he believes that he overreacted. Related Data Home Medications ?Medication ?Instructions ?Recorded ?Confirmed apixaban 5 mg tablet (Eliquis) 5 mg PO BID 09/05/21 12/24/24 donepezil 10 mg tablet 1 tab PO BEDTIME 09/05/21 12/24/24 sctwnuac-oex-sbcxb acid 0.4 1 tab PO DAILY 09/05/21 12/24/24 mg-lycopene 300 mcg-lutein 250 mcg tablet (CertaVite Senior) allopurinol 100 mg tablet 50 mg PO DAILY gout pain 10/07/21 12/24/24 insulin syringe-needle U-100 1 mL #10 ea 12/22/21 05/08/22 31 gauge x 5/16 memantine 10 mg tablet 10 mg PO BID 05/08/22 12/24/24 metoprolol tartrate 100 mg tablet 100 mg PO BID 05/08/22 12/24/24 cetirizine 10 mg tablet 10 mg PO DAILY congestion 08/17/23 12/24/24 gabapentin 800 mg tablet 800 mg PO BID 05/17/24 12/24/24 omeprazole 20 mg capsule,delayed 20 mg PO BID@0630,1630 05/17/24 12/24/24 release sucralfate 1 gram tablet 1 g PO TIDAC 05/17/24 12/24/24 magnesium oxide 250 mg PO DAILY 11/25/24 12/24/24 insulin aspar prt-insulin aspart 76 unit subcut BIDWM 12/24/24 12/24/24 100 unit/mL (70-30) subcutaneous soln (Novolog Mix 70-30 U-100 Insuln) Previous Rx's ?Medication ?Instructions ?Recorded atorvastatin 40 mg tablet (Lipitor) 40 mg PO BEDTIME #30 tabs 09/09/21 lancets (Lancets,Ultra Thin) #100 ea 10/21/21 amlodipine 5 mg tablet 2.5 mg (1/2 x 5 mg) PO DAILY #90 12/03/24 tabs aspirin 81 mg chewable tablet 81 mg PO DAILY #60 tabs 12/03/24 bumetanide 1 mg tablet 1 mg PO DAILY #90 tabs 12/03/24 isosorbide mononitrate 60 mg 60 mg PO DAILY #90 tabs 12/03/24 tablet,extended release 24 hr tamsulosin 0.4 mg capsule (Flomax) 0.4 mg PO BEDTIME #60 caps 12/03/24 cefuroxime axetil 500 mg tablet 500 mg PO Q12H #10 tabs 12/26/24 doxycycline monohydrate 100 mg 100 mg PO BID #10 caps 12/26/24 capsule Allergies Allergy/AdvReac Type Severity Reaction Status Date / Time No Known Allergies Allergy Verified 01/06/25 16:15 Review of Systems Review of Systems: ROS as per [facility] Past Medical History Medical History CAD (coronary artery disease) Trash foot Diabetic foot infection Heart failure with preserved ejection fraction HLD (hyperlipidemia) Diabetes mellitus Atrial fibrillation NSTEMI (non-ST elevated myocardial infarction) Alzheimer's dementia Kidney failure Diabetes HTN (hypertension) Surgical History No pertinent past surgical history Family History Family History Father No problems noted. Mother No problems noted. Social History Social History Household Members: Children Household Members Other:: sons and daughter in law Housing: Apartment Do you presently have visiting nurse or other home services: Yes Alcohol intake: never Patient Tobacco Use Status: Never used Tobacco e-Cigarette/Vaping Use: Never Used Second Hand Smoke Exposure: No Advance Directives: Yes Advance Directives on File: Yes Advance Directives Date on File: 09/06/21 service: No Current occupational status: retired Physical Exam ED Vital Signs: Vital Signs - 24 hr 01/06/25 16:11 Temperature 98.5 F Pulse Rate 70 Respiratory Rate 18 Blood Pressure 130/70 Pulse Oximetry 96 Oxygen Delivery Method Nasal Cannula BMI result Body Mass Index 44.3 Gen: NAD, AOx3 HEENT: NCAT, EOMI, normal conjunctiva CV: RRR, no lower extremity pitting edema Pulm: CTAB, no increased work of breathing GI: Soft, NTND, no rebound, guarding or rigidity Neuro: Grossly non focal Medical Decision Making Medical Decision Making [facility] Narrative: Differential diagnosis includes, but is not limited to noncompliance with oxygen therapy, CHF, viral URI. Patient is afebrile and hemodynamically stable on home supplemental oxygen. Exam is benign and reassuring. I independently reviewed and interpreted the patient's labs, EKG, chest x-ray and viral testing as below. On re-examination, patient is well-appearing and in no acute distress. ?There is no indication for further emergent evaluation in this otherwise well-appearing patient as above. ?Son is provided written and verbal instructions, educational materials, recommendations for outpatient follow-up, strict return precautions and teach back is performed. ?Patient's son states understanding and agreement with plan of care. ?Patient is discharged home in stable and improved condition. Admission/Observation Consideration of admission/observation: Escalation of care including admission/observation considered Lab Data [facility] Lab Attestation statement: I reviewed the patient's lab results. I independently reviewed and interpreted patient's labs, which demonstrates stable chronic anemia with hemoglobin 10.2 (previous 10.6), unremarkable venous blood gas, unremarkable if metabolic panel (there is hemolyzed potassium of 5.6; baseline renal function with a creatinine 1.85 [previous range 1.34-2.04); hyperglycemia of 323 without complication and reassuring anion gap of 15 I do not suspect diabetic ketoacidosis. Patient is negative for COVID-19, influenza and RSV. 01/06/25 15:40 01/06/25 15:40 Labs: Lab Results 01/06/25 01/06/25 Range/Units 15:40 15:44 WBC 9.1 (4.8-10.8) X10*3/uL RBC 3.42 L (4.60-5.80) X10*6/uL Hgb 10.2 L (14.0-18.0) g/dl Hct 33.1 L (42.0-52.0) % MCV 96.8 (80.0-98.0) fL MCH 29.8 (27.0-33.0) pg MCHC 30.8 L (31.0-36.0) g/dl RDW 15.7 (11.0-16.0) % Plt Count 180 (160-400) X10*3/uL MPV 12.1 (9.4-12.4) fL Immature Gran % (Auto) 0.3 (0.0-0.4) % Neut % (Auto) 85.2 H (45-73) % Lymph % (Auto) 7.4 L (20-40) % Phelps % (Auto) 5.9 (2-11) % Eos % (Auto) 1.0 (0-4) % Baso % (Auto) 0.2 (0-2) % Lymph # (Auto) 0.7 L (1.2-4.9) X10*3/uL Phelps # (Auto) 0.5 (0.1-1.2) X10*3/uL Eos # (Auto) 0.1 (0.0-0.4) X10*3/uL Baso # (Auto) 0.0 (0.0-0.2) X10*3/uL Abs Immat Gran (auto) 0.03 (0.00-0.03) X10*3/uL Absolute Neuts (auto) 7.8 (2.0-8.3) x10*3/uL Absolute Nucleated RBC 0.000 (0.0-0.012) X10*3/uL Nucleated RBC % (auto) 0.0 (0.0-0.2) /100WBC VBG pH 7.50 H (7.32-7.43) VBG pCO2 43 mmHg VBG pO2 149 mmHg VBG HCO3 34 H (22-26) mmol/L VBG O2 Saturation 99.0 % VBG Base Excess 10.1 mmol/L Sodium 139 (135-145) mmol/L Potassium 5.6 H D (3.3-5.1) mmol/L Chloride 102 (96-108) mmol/L Carbon Dioxide 28 (22-29) mmol/L Anion Gap 15 (12-20) BUN 30 H (9-16) mg/dL Creatinine 1.85 H (0.5-1.4) mg/dL Estim Creat Clear Calc TNP Estimated GFR 35 Random Glucose 323 H (60-115) mg/dL Calcium 8.8 (8.4-10.2) mg/dL B-Natriuretic Peptide 430 H (<100) pg/mL Influenza Type A (PCR) NEGATIVE (Negative) Influenza Type B (PCR) NEGATIVE (Negative) RSV RNA Qual (PCR) NEGATIVE (Negative) SARS-CoV-2 RNA (RT-PCR) NEGATIVE (Negative) Independent Interpretation I performed an independent interpretation of an: EKG and Plain X-Ray Interpretation: . On the independently reviewed and interpreted the patient's EKG, which demonstrates atrial fibrillation at 54 beats per minute, QRS 84, QTC 371, no STEMI. Radiology Impression Discussion of test interpretation with radiology: I have reviewed the radiologist's reading. Radiologist Impression: XR/XR chest 1V IMPRESSION: Cardiomegaly, CHF with interstitial edema and bilateral small to moderate layering effusions with underlying parenchymal consolidations. Examination is quite similar to the previous. Electronically signed by: Shane Griffith MD 01/06/2025 04:29 PM [facility] Dictated By: Shane Griffith MD Signed By: <Electronically signed by Shane Griffith MD in OV> 01/06/25 [id number] Independent Historian Clinical information obtained from an independent historian. History obtained from or confirmed by: Other (Patient's son provides history due to history of Alzheimer's dementia) Son provides majority of the history. Discussion with the some with the supervisor home restoration service it appears that the patient's son panicked after finding is follow with his nasal cannula supplemental oxygen removed from his nose with subsequent SpO2 of 86%. Per the son, he is always using at least 2 L per minute supplemental oxygen via nasal cannula while at rest and they will increase this to 4 liters/minute when he is exerting himself. I suspect that the patient's sons anxiety and concern over his father's health contributes to the patient's presentation here to the ED today. Discharge Plan Discharge Clinical Impression: Acute dyspnea, Acute hyperglycemia Patient Disposition: Home, Self-Care Instructions: Dyspnea (ED) Additional Instructions: V?ctor fue evaluado en la deborah de emergencias. Fernandez evaluaci?n fue en general tranquilizadora, incluidos an?lisis de hali, electrocardiograma y radiograf?a de t?rax. Ramiro negativo en pruebas de COVID-19, Influenza y VRS. Marybel un seguimiento con fernandez cardi?logo y m?dico de atenci?n primaria he la pr?xima semana. Regrese a la emergencia si tiene alguna inquietud nueva. Prescriptions: No Action Eliquis 5 mg tablet 5 mg PO BID donepezil 10 mg tablet 1 tab PO BEDTIME CertaVite Senior 0.4-300-250 mg-mcg-mcg tablet 1 tab PO DAILY atorvastatin [Lipitor] 40 mg tablet 40 mg PO BEDTIME Qty: 30 0RF metoprolol tartrate 100 mg tablet 100 mg PO BID memantine 10 mg tablet 10 mg PO BID allopurinol 100 mg tablet 50 mg PO DAILY (DME) lancets [Lancets,Ultra Thin] Misc See Rx Instructions .Route Qty: 100 0RF Rx Instructions: As directed cetirizine 10 mg tablet 10 mg PO DAILY magnesium oxide 250 mg magnesium tablet 250 mg PO DAILY isosorbide mononitrate 60 mg Tablet Extended Release 24 Hr 60 mg PO DAILY Qty: 90 0RF Protocol: Hold for SBP< HOLD for SBP < : 90 aspirin 81 mg Tablet,Chewable 81 mg PO DAILY Qty: 60 0RF amlodipine 5 mg tablet 2.5 mg PO DAILY Qty: 90 0RF bumetanide 1 mg tablet 1 mg PO DAILY Qty: 90 0RF tamsulosin [Flomax] 0.4 mg capsule 0.4 mg PO BEDTIME Qty: 60 0RF insulin asp prt-insulin aspart [Novolog Mix 70-30 U-100 Insuln] 100 unit/mL (70-30) solution 76 unit subcut BIDWM Rx Instructions: INJECT 76 UNITS SUBCUTANEOUSLY TWICE DAILY WITH BREAKFAST AND WITH DINNER doxycycline monohydrate 100 mg capsule 100 mg PO BID Qty: 10 0RF cefuroxime axetil 500 mg tablet 500 mg PO Q12H Qty: 10 0RF gabapentin 800 mg tablet 800 mg PO BID omeprazole 20 mg capsule,delayed release(DR/EC) 20 mg PO BID@0630,1630 sucralfate 1 gram tablet 1 g PO TIDAC (DME) insulin syringe-needle U-100 1 mL 31 gauge x 5/16 syringe See Rx Instructions subcut TID Qty: 10 Rx Instructions: As directed Print Language: Icelandic
--- NOTE | 2025-01-06 14:56 | ECG_ITS ---
Test Reason : SOB Blood Pressure : */* mmHG Vent. Rate : 54 BPM Atrial Rate : * BPM P-R Int : * ms QRS Dur : 84 ms QT Int : 392 ms P-R-T Axes : * 47 80 degrees QTcB Int : 371 ms Atrial fibrillation with slow ventricular response Low voltage QRS Abnormal ECG When compared with ECG of 24-Dec-2024 12:15, Nonspecific T wave abnormality no longer evident in Inferior leads T wave inversion no longer evident in Anterior leads QT has shortened Referred By: Be Shen Electronically Signed By: PANKAJ BRASWELL MD
[2025-01-06 15:45] LABS: MANUAL DIFF FLAG NO
[2025-01-06 15:49] LABS: VBG Base Excess 10.1 mmol/L; VBG HCO3 34 mmol/L (22-26); VBG pCO2 43 mmHg; VBG pO2 149 mmHg
[2025-01-06 15:49] LABS: Venous Blood Gas Refer to POC result
[2025-01-06 15:49] LABS: Basophils Percent Auto 0.2 % (0-2); Eosinophils Absolute Auto 0.1 X10*3/uL (0.0-0.4); Hematocrit 33.1 % (42.0-52.0); Hemoglobin 10.2 g/dl (14.0-18.0); Imm Gran Abs Auto 0.03 X10*3/uL (0.00-0.03); Imm Gran Pct Auto 0.3 % (0.0-0.4); Lymphocytes Absolute Auto 0.7 X10*3/uL (1.2-4.9); Lymphocytes Percent Auto 7.4 % (20-40); Mean Corpuscular HGB Conc 30.8 g/dl (31.0-36.0); Mean Corpuscular Hemoglobin 29.8 pg (27.0-33.0); Mean Corpuscular Volume 96.8 fL (80.0-98.0); Mean Platelet Volume 12.1 fL (9.4-12.4); Monocytes Absolute Auto 0.5 X10*3/uL (0.1-1.2); Monocytes Percent Auto 5.9 % (2-11); Neutrophils Absolute Auto 7.8 x10*3/uL (2.0-8.3); Neutrophils Percent Auto 85.2 % (45-73); Platelet Count 180 X10*3/uL (160-400); Red Blood Count 3.42 X10*6/uL (4.60-5.80); Red Cell Distribution Width 15.7 % (11.0-16.0); White Blood Count 9.1 X10*3/uL (4.8-10.8)
[2025-01-06 16:07] LABS: Anion Gap 15 (12-20); Blood Urea Nitrogen 30 mg/dL (9-16); Calcium 8.8 mg/dL (8.4-10.2); Carbon Dioxide 28 mmol/L (22-29); Chloride 102 mmol/L (96-108); Estimated Glomerular Filt Rate 35; Glucose Random 323 mg/dL (60-115); Potassium 5.6 mmol/L (3.3-5.1); Sodium 139 mmol/L (135-145)
[2025-01-06 16:11] VITALS: BP 130/70; PULSE 70; RESP 18; TEMP 36.9; O2SAT 96; BMI 44.3
[2025-01-06 16:13] LABS: B Type Natriuretic Peptide 430 pg/mL (<100)
--- OUTSIDE RECORDS SUMMARY | 2025-01-06 16:20 | XMS_ITS | Encounter Summary ---
Author Organization [facility] Address [address] [place] [address] [address] [place] [address] Care Team Providers Care Shot Core Drill Operator Helper Name Role Phone Kathy Villafana MD Primary Care Provider [phone] Reason for Visit * Reason Comments Med Refill Encounter Details Date Type Department Care Team ([facility] st Contact Info) Description 05/16/2023 Refill [facility] MEDICINE [address] [place], [place] [phone] Kathy Villafana MD [address] [place], [place] [phone] Social History Tobacco Use Types Packs/Day Years [...] documented as of this encounter Care Teams Shot Core Drill Operator Helper Relationship Specialty Start Date End Date Kathy Villafana MD [address] [place], [place] [phone] PCP - General Family Medicine 08/05/21 [facility] 12/04/24 documented as of this encounter
--- OUTSIDE RECORDS SUMMARY | 2025-01-06 16:20 | XMS_ITS | Encounter Summary ---
Author Organization [employer] Address [address] [facility] [address] [place] [address] Care Team Providers Care Churn Driller Name Role Phone Kathy Villafana MD Primary Care Provider [phone] Encounter Details Date Type Department Care Team (Late st Contact Info) Description 01/12/2023 Orders Only [facility] MED [facility] PEDS [address] [place] [address] Mary Ann Skaggs LPN Social History Tobacco [...] on filedocumented in this encounter Care Teams Churn Driller Relationship Specialty Start Date End Date Kathy Villafana MD [address] [place] [id number] PCP - General Family Medicine 08/05/21 [facility] 12/04/24 documented as of this encounter
--- OUTSIDE RECORDS SUMMARY | 2025-01-06 16:20 | XMS_ITS | Encounter Summary ---
Author Organization [employer] Address [address] [facility] [address] [place] [address] Care Team Providers Care Semiconductor Wafers Etcher Stripper Name Role Phone Kathy Villafana MD Primary Care Provider [phone] Encounter Details Date Type Department Care Team (Late st Contact Info) Description 05/22/2023 Abstract [facility] [address] [place], [place] [phone] Tr Tay DDS [address] [place], [place] [phone] Social History Tobacco Use Types Packs/Day Years [...] documented as of this encounter Care Teams Semiconductor Wafers Etcher Stripper Relationship Specialty Start Date End Date Kathy Villafana MD [address] [place] [address] PCP - General Family Medicine 08/05/21 [facility] 12/04/24 documented as of this encounter
--- OUTSIDE RECORDS SUMMARY | 2025-01-06 16:20 | XMS_ITS | Clinical Summary ---
Author Organization [employer] Address [address] [facility] 7t [place] [address] Care Team Providers Care Bender Hand Name Role Phone Kathy Villafana MD Primary Care Provider [phone] Allergies No known active allergies Medications Blood [...] hyperglycemia, with long-term current use of insulin ([facility]) TEST BLOOD SUGAR THREE TIMES DAILY 100 [...] complication, with long-term current use of insulin ([facility]) INJECT 76 UNITS SUBCUTANEOUSLY WITH BREAKFAST, AND [...] areas 150 g 024 Active Continuous Glucose Fisher Diver Net (FreeStyle Park 2 Howe) deviceIndication s:Type 2 diabetes mellitus with diabetic neuropathy, with long-term current use of insulin ([facility]) Scan sensor every 8 hours 1 each Active Continuous Glucose Sensor (FreeStyle Park 2 Sensor) miscIndications: Type 2 diabetes mellitus with diabetic neuropathy, with long-term current use of insulin ([facility]) Apply 1 sensor every 14 days 2 each 024 Active apixaban (Eliquis) 5 MG tabletIndication s:Atrial fibrillation, unspecified type ([facility]) TAKE 1 TABLET BY MOUTH TWICE DAILY [...] mg) by mouth at bedtime. 30 capsule Active isosorbide mononitrate ER (Imdur) 60 MG [...] cleanup (will not trigger notification to Pharmacy)) Omeprazole 20 MG tablet delayed-release Take 20 [...] Villafana, here for a HDF Admitted to [facility] from 05/17-05/19/2024 Patient presented c/o dizziness and [...] recurrent sebaceous cysts on his back, his manager long term care recently drained one and although there is [...] will be referred to PT/OT clinic for muip-nc-qaye examination, and after evaluation by PT/OT will order a power mobility device. Chronic periodontitis 05/21/2023 Alzheimer's disease 01/22/2023 Assessment & Plan (05/21/2024 10:21 AM EDT): Continue Donepezil 10mg and Memantine 10mg daily Son is DATA ENTRY MANAGER, needs assistance with paperwork for medical power or bankruptcy attorney Decided against medical guardianship due to fears he would become responsible for debts of his father Continue day/night cycles Continue gentle redirection during hallucinations Assessment & Plan (06/15/2023 6:06 AM EDT): Continue Donepezil 10mg and Memantine 10mg daily Son is DATA ENTRY MANAGER, needs assistance with paperwork for medical power or bankruptcy attorney Decided against medical guardianship due to fears he would become responsible for debts of his father Continue day/night cycles Continue gentle redirection during hallucinations Assessment & Plan (01/25/2023 1:02 PM EST): Continue Donepezil 10mg Son is DATA ENTRY MANAGER and medical power or bankruptcy attorney Atrial fibrillation 01/22/2023 Assessment & Plan (01/25/2023 [...] Encounters Date Type Department Care Team Description 01/06/2025 Orders Only GENERIC EXTERNAL DATA DEPARTMENT Provider, Generic External Data 01/02/2025 Telephone [facility] [address] [place] [phone] Kathy Villafana MD Lab Orders 01/02/[address] [address] Kathy Villafana MD Durable Medical Equipment 12/16/2024 9:15 AM EST Office Visit [address] [address] Kathy Villafana MD Chronic renal disease, stage IV (CMS/HCC) (Primary Dx); 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 ) 12/03/2024 Telephone [facility] [address] [place] [address] Kathy Villafana MD Hospital Follow-up 12/02/2024 Refill [facility] [address] [place] [address] Kathy Villafana MD Other hyperlipidemia 11/25/2024 Orders Only GENERIC EXTERNAL DATA DEPARTMENT Provider, Generic External Data 11/17/2024 Telephone [facility] [address] [place] [address] Eliza Field RNchief operator synthesis 10/17/2024 Refill [facility] [address] [place] [address] [facility] 10/15/2024 Refill [facility] [address] [place] [address] Kathy Villafana MD 10/12/2024 Refill [facility] [address] [place] [address] Kathy Villafana MD from Last 3 Months [...] Date Last Done Comments Dental Prophylaxis 1945 Alcohol/Substance Use Screening 1957 DTaP/Tdap/Td Vaccines (1 - Tdap) 1964 Pneumococcal Vaccine: 50+ Years (1 of 2 - PCV) 1964 Zoster Vaccines (1 of 2) 1995 [...] Procedure Name Priority Date/Time Associated Diagnosis Comments VENOUS BLOOD GAS Routine 01/06/2025 3:44 PM EST B TYPE NATRIURETIC PEPTIDE (BNP) Routine 01/06/2025 3:40 PM EST BASIC METABOLIC PANEL Routine 01/06/2025 3:40 PM EST CBC WITH AUTO DIFFERENTIAL Routine 01/06/2025 3:40 PM EST XR CHEST 1 VIEW Routine 11/28/2024 9:00 [...] Recently Relevant to Health Maintenance Results * (ABNORMAL) VENOUS BLOOD GAS (01/06/2025 3:44 PM EST) Only the most recent of2 resultswithin the time period is included. VBG pH 7.50(H) 7.32 - 7.43 [facility] Comment:METER #: [id number] additional_comment: CbDelgadj VBG PCO2 43 mmHg [facility] Comment:METER #: [id number] additional_comment: CbDelgadj VBG PO2 149 mmHg [facility] Comment:METER #: [id number] additional_comment: CbDelgadj VBG Base Excess 10.1 mmol/L [facility] Comment:METER #: [id number] additional_comment: CbDelgadj VBG HCO3 34(H) 22 - 26 mmol/L [facility] Comment:METER #: [id number] additional_comment: CbDelgadj O2 Sat, Cas 99.0 % [facility] Comment:METER #: [id number] additional_comment: CbDelgadj 01/06/2025 3:44 PM EST 01/06/2025 3:49 PM EST us Generic External Data Provider LAB BLOOD ORDERAB LES Final Result [facility] [address] [place] [phone] * (ABNORMAL) CBC auto differential (01/06/2025 3:40 PM EST) Only the most recent of2 resultswithin the time period is included. White Blood Count 9.1 4.8 - 10.8 X10*3/uL [facility] Red Blood Count 3.42(L) 4.60 - 5.80 X10*6/uL [facility] Hemoglobin 10.2(L) 14.0 - 18.0 g/dl [facility] Hematocrit 33.1(L) 42.0 - 52.0 % [facility] Mean Corpuscular Volume 96.8 80.0 - 98.0 fL [facility] Mean Corpuscular Hemoglobin 29.8 27.0 - 33.0 pg [facility] Mean Corpuscular HGB Conc 30.8(L) 31.0 - 36.0 g/dl [facility] Red Cell Distribution Width 15.7 11.0 - 16.0 % [facility] Platelet Count 180 160 - 400 X10*3/uL [facility] Mean Platelet Volume 12.1 9.4 - 12.4 fL [facility] Neutrophils Percent Auto 85.2(H) 45 - 73 % [facility] Imm Gran Pct Auto 0.3 0.0 - 0.4 % [facility] Lymphocytes Percent Auto 7.4(L) 20 - 40 % [facility] Monocytes Percent Auto 5.9 2 - 11 % [facility] Eosinophils Percent Auto 1.0 0 - 4 % [facility] Basophils Percent Auto 0.2 0 - 2 % [facility] NRBC Pct Auto 0.0 0.0 - 0.2 /100WBC [facility] Neutrophils Absolute Auto 7.8 2.0 - 8.3 x10*3/uL [facility] Imm Gran Abs Auto 0.03 0.00 - 0.03 X10*3/uL [facility] Lymphocytes Absolute Auto 0.7(L) 1.2 - 4.9 X10*3/uL [facility] Monocytes Absolute Auto 0.5 0.1 - 1.2 X10*3/uL [facility] Eosinophils Absolute Auto 0.1 0.0 - 0.4 X10*3/uL [facility] Basophils Absolute Auto 0.0 0.0 - 0.2 X10*3/uL [facility] NRBC Abs Auto 0.000 0.0 - 0.012 X10*3/uL [facility] 01/06/2025 3:40 PM EST 01/06/2025 3:43 PM EST Generic External Data Provider LAB BLOOD ORDERAB LES Final Result Performing Organization Address [facility] Co de Phone Number [facility] [address] [place] [phone] * (ABNORMAL) B Type Natriuretic Peptide (BNP) (01/06/2025 3:40 PM EST) Only the most recent of2 resultswithin the time period is included. [facility] B Type Natriuretic Peptide 430(H) <100 pg/mL [facility] Comment:For those patients w ho are being treated with Natrecor(nesiritide, recombinant BNP), BNP testing should beperformed at least two hours post treatment in order toensure that only endogenous levels of BNP are detected. 01/06/2025 3:40 PM EST 01/06/2025 3:43 PM EST [employer] External Data Provider LAB BLOOD ORDERAB LES Final Result Performing Organization Address [facility] Phone Number [facility] [address] [place] [phone] * (ABNORMAL) Basic Metabolic Panel (01/06/2025 3:40 PM EST) Only the most recent of2 resultswithin the time period is included. [facility] Sodium 139 135 - 145 mmol/L [facility] Potassium 5.6(H) 3.3 - 5.1 mmol/L [facility] Comment:Slight Hemolysis.Int erpret result with caution. Chloride 102 96 - 108 mmol/L [facility] Carbon Dioxide 28 22 - 29 mmol/L [facility] Anion Gap 15 12 - 20 [facility] Urea Nitrogen (BUN) 30(H) 9 - 16 mg/dL [facility] Creatinine, Serum 1.85(H) 0.5 - 1.4 mg/dL [facility] Creatinine Clr Calc Pharmacy TNP [facility] Comment:Unable to calculate eCrCL; all parameters not provided. Estimated Glomerular Filt Rate 35 [facility] Comment:Chronic Kidney Disea se: Estimated GFR < 60 mL/min/1.76q6Zxowxp Kidney Disease: Estimated GFR < 15 mL/min/1.73m2 Glucose 323(H) 60 - 115 mg/dL [facility] Calcium 8.8 8.4 - 10.2 mg/dL [facility] 01/06/2025 3:40 PM EST 01/06/2025 3:43 PM EST us Generic External Data Provider LAB BLOOD ORDERAB LES Final Result Performing Organization Address City/State/[facility] Co de Phone Number [facility] [address] [place] [phone] * XR Chest 1 View (11/28/2024 9:00 AM EST) Anatomical Region Laterality Modality Chest Radiographic Agueda ging 11/28/2024 9:00 AM EST Narrative 11/28/2024 10:30 AM EST ? [facility] ?[address] ?[place] [address] ?XRay Report ? Signed ? Patient: Dayton Oquendo ?MR#: ?? [id number] ? : 1945 ?Acct:[id number] ? Age/Sex: 79 / M ?ADM Date: 11/27/24 ? Loc: HO.IMC ?485-1 ? Attending : Chidi Ramirez MD ? Ordering Physician: Chidi Ramirez MD ?? Date of Service: 11/28/24 ?? Procedure(s): XR chest 1V ?? Accession Number(s): [id number] ? cc: Kathy Villafana; Chidi Ramirez MD [...] signed by Demond Barajas MD in OV> ?11/28/241026 ? DD/ 0900 ? TD/TT: 11/28/24 0908 ? Chartered Financial Analyst: MSM ? Procedure Note Donshelbyter, Image - 11/28/[address] [address] XRay Report Signed Patient: Dayton Oquendo AMR#: [id number] : 5Acct:[id number] Age/Sex: 79 / MADM Date: 11/27/24 Loc: [facility] 485-[address]: Chidi Ramirez MD Ordering Physician: Chidi Ramirez MD Date of Service: 11/28/24 Procedure(s): XR chest 1V Accession Number(s): [id number] cc: Kathy Villafana; Chidi Ramirez MD EXAMINATION: [...] 11/28/24 1027 DD/ 0900 TD/TT: 11/28/24 0908 Chartered Financial Analyst: SHAHNAZ [facility] External Provider IMG XR PROCEDURES Final Result * High Sensitivity Troponin I (11/25/2024 5:03 PM EST) [facility] TROPONIN I HIGH SENSITIVITY 2.8 <3.5 - 35.0 ng/L [facility] Comment:The Patel high sens itivity Troponin-I results should beused in conjunction with other diagnostic information suchas ECG, clinical observations and information, and patientsymptoms to aid in the diagnosis of [place]. 11/25/2024 5:03 PM EST 11/25/2024 5:07 PM EST Generic External Data Provider LAB BLOOD ORDERAB LES Final Result Performing Organization Address [facility]/ZIP Co de Phone Number [facility] [address] [place] [phone] * (ABNORMAL) Glucose, Whole Blood (11/25/2024 3:13 PM EST) [facility] Glucose, Whole Blood 328(H) 60 - 115 mg/dL [facility] Comment:METER #: [id number] 11/25/2024 3:13 PM EST 11/25/2024 3:17 PM EST Generic External Data Provider LAB BLOOD ORDERAB LES Final Result Performing Organization Address City/[facility]/ZIP Co de Phone Number [facility] [address] [place] [phone] * (ABNORMAL) SARS-CoV-2 RNA, Influenza A/B, and RSV RNA, Ql NAAT (11/25/2024 10:34 AM EST) [facility] Influenza A PCR NEGATIVE Negative [facility] Influenza B PCR NEGATIVE Negative [facility] Resp Syncy Virus RNA Qual PCR POSITIVE(A) Negative [facility] SARS COV2 PCR NEGATIVE Negative [facility] Comment:All test results mus t [...] use by authorized laboratories.Testing performed on the [employer] GeneXpert utilizingreal-time RT-PCR.All SARS CoV2 and positive influenza A/B results arereported to [facility]. 11/25/2024 10:3 4 AM EST 11/25/2024 10:42 AM EST us Generic External Data Provider LAB MICROBIOLOGY - GENERAL ORDERABLES Final Result Performing Organization Address City/State/[facility] Co de Phone Number [facility] [address] [place] [phone] * XR Chest 2 Views (11/25/2024 10:15 AM EST) Anatomical Region Laterality Modality Chest Radiographic Agueda ging 11/25/2024 10:1 5 AM EST Narrative 11/25/2024 11:47 AM EST ? [facility] ?[address] ?[place] [address] ?XRay Report ? Signed ? Patient: Nilo Forrest,Dayton A ?MR#: ?? [id number] ? : 1945 ?Acct:[id number] ? Age/Sex: 79 / M ?ADM Date: 11/25/24 ? Loc: HO.ED ? Attending Dr: ? Ordering Physician: Generic ED Physician ?? Date of Service: 11/25/24 ?? Procedure(s): XR chest 2V ?? Accession Number(s): [id number] ? cc: Generic ED Physician; Kathy Villafana [...] signed by Demond Barajas MD in OV> ?11/25/24 1144 ? DD/ 1015 ? TD/TT: 11/25/24 1059 ? Chartered Financial Analyst: MSM ? Procedure Note Donshelbyter, Image - 11/25/2024 [place] [address] XRay Report Signed Patient: Dayton Oquendo AMR#: [id number] : 5Acct:[id number] Age/Sex: 79 / MADM Date: 11/25/24 Loc: HO.ED Attending Dr: Ordering Physician: Generic ED Physician Date of Service: 11/25/24 Procedure(s): XR chest 2V Accession Number(s): [id number] cc: Generic ED Physician; Kathy Villafana EXAMINATION: [...] 11/25/24 1144 DD/ 1015 TD/TT: 11/25/24 1059 Chartered Financial Analyst: SHAHNAZ [facility] External Provider IMG XR PROCEDURES Edited [...] Quantitative, Real-Time PCR (02/20/2024 3:00 PM EDT) Pathologist [facility] Hepatitis C Antibody Nonreactive Nonreactive [facility] Comment:Antibodies to HCV no t detected; does not exclude early acuteHCV infection. Blood Venous blood specimen / Unknown 02/20/2024 3:00 PM EDT 02/20/2024 4:04 PM EDT Kathy Villafana MD LAB BLOOD ORDERABLES Final Res ult [facility] [address] [place] [address] [phone] * (ABNORMAL) Lipid Panel, Standard (02/20/2024 3:00 PM EDT) Triglycerides 186(H) <150 mg/dL [facility] Comment:Desirable Triglyceri de: less than 150 mg/dLBorderline High Triglyceride 150-199 mg/dLHigh Triglyceride: 200-499 mg/dLVery High Triglyceride: greater than or equal to 5OO mg/dL Cholesterol 159 <200 mg/dL [facility] Comment:Desirable Cholestero l: less than 200 mg/dLBorderline High Cholesterol: 200-239 mg/dLHigh Cholesterol: greater than 239 mg/dL LDL Cholesterol Calculated 78 <100 mg/dL [facility] Comment:Desirable LDL: less than 100 mg/dLNear Optimal/Above Optimal LDL: 110- 129 mg/dLBorderline High LDL: 130-159 mg/dLHigh LDL: 160-189 mg/dLVery High LDL: greater than or equal to 190 mg/dL HDL Cholesterol 44 >40 mg/dL [facility] Comment:Desirable HDL: great er than 40 mg/dL Note: This HDL assay may give artificially low results in patients with liver disease. Blood Venous blood specimen / Unknown 02/20/2024 3:00 PM EDT 02/20/2024 4:04 PM EDT us Kathy Villafana MD LAB BLOOD ORDERABLES Final Res ult [facility] [address] [place] [phone] from Last 3 Months or Most Recently Relevant to Health Maintenance Insurance [facility] Advance Directives Documents on File Type Date Recorded Patient Jacquard Card Lacer Expl anation Advance Directives and Livin g Will 06/28/2023 Health Care Proxy Care Teams Bender Hand Relationship Specialty Start Date End Date Kathy Villafana MD [address] [place] [address] PCP - General Family Medicine 08/05/21 [facility] 12/04/24
--- OUTSIDE RECORDS SUMMARY | 2025-01-06 16:21 | XMS_ITS | Encounter Summary ---
Author Organization [employer] Address [address] [facility] [address]t [place] [address] Care Team Providers Care Lease Administrator Name Role Phone Kathy Villafana MD Primary Care Provider [phone] Encounter Details Date Type Department Care Team (Late st Contact Info) Description 11/17/2022 Orders Only [facility] [address] [place] [address] Mary Ann Skaggs LPN Social History Tobacco [...] on filedocumented in this encounter Care Teams Lease Administrator Relationship Specialty Start Date End Date Kathy Villafana MD [address] [place] [phone] PCP - General Family Medicine 08/05/21 [facility] 12/04/24 documented as of this encounter
--- OUTSIDE RECORDS SUMMARY | 2025-01-06 16:21 | XMS_ITS | Encounter Summary ---
Author Organization [employer] Address [address] [facility] [address] [place] [address] Care Team Providers Care Journeyman Electrician Name Role Phone Kathy Villafana MD Primary Care Provider [phone] Reason for Visit * Reason Onset Date Comments Hospital Follow-up 12/03/2024 Encounter Details Date Type Department Care Team ([facility] st Contact Info) Description 12/03/2024 Telephone [facility] [address] [place], [place] [phone] Kathy Villafana MD [address] [place], [place] [phone] Hospital Follow-up Social History Tobacco Use Types [...] from pt requesting a HDF appt. Hospital: [facility] Date of admission: 11/25/2024 Discharge date: 12/03/2024 Diagnosed: Heart Attack *Send message to [place] Clinical Care Coordinators documented in this encounter Plan of Treatment Not on file documented as of this encounter Visit Diagnoses Not on filedocumented in this encounter Additional Health Concerns Assessment Noted Time PHQ-9 Depression Total Score: 0 02/20/20 24 2:34 PM EDT documented as of this encounter Care Teams Journeyman Electrician Relationship Specialty Start Date End Date Kathy Villafana MD [address] [place] [address] PCP - General Family Medicine 08/05/21 [facility] 12/04/24 documented as of this encounter
--- OUTSIDE RECORDS SUMMARY | 2025-01-06 16:21 | XMS_ITS | Encounter Summary ---
Author Organization [facility] Address [address] [place] [address] Phone Care Team Providers Care Lumber Stacker Driver Name Role Phone Kathy Villafana MD Primary Care Provider [phone] Reason for Visit * Reason Comments Med Refill Encounter Details Date Type Department Care Team (Late st Contact Info) Description 07/14/2022 Refill [facility] [address] [place] [phone] Salty Kim, DO [address] [place] [phone] Social History Tobacco Use Types Packs/Day Years [...] on filedocumented in this encounter Care Teams Lumber Stacker Driver Relationship Specialty Start Date End Date Kathy Villafana MD PCP - General Farm Machinery Mechanic 10/13/21 documented as of this encounter
--- OUTSIDE RECORDS SUMMARY | 2025-01-06 16:21 | XMS_ITS | Encounter Summary ---
Author Organization [employer] Address [address] [place] [address] Care Team Providers Care Nursing Clerk Name Role Phone Kathy Villafana MD Primary Care Provider [phone] Reason for Visit * Reason Onset Date Comments Appointment Request 01/24/2024 Encounter Details Date Type Department Care Team ([facility] st Contact Info) Description 01/24/2024 Telephone [facility] [address] [place], [place] [phone] Kathy Villafana MD [address] [place], [place] [phone] Appointment Request Social History Tobacco Use Types [...] to r/s follow up scheduled for 01/24/24. Multi Purpose Machine Operator unable to schedule due to 30 min appt. Appt has been cancelled. Please contact at [phone] documented in this encounter Plan of Treatment Not on file documented as of this encounter Visit Diagnoses Not on filedocumented in this encounter Additional Health Concerns Assessment Noted Time PHQ-9 Depression Total Score: 0 01/22/20 23 3:42 PM EST documented as of this encounter Care Teams Nursing Clerk Relationship Specialty Start Date End Date Kahty Villafana MD [address] [place] [phone] PCP - General Family Medicine 08/05/21 [facility] 12/04/24 documented as of this encounter
--- OUTSIDE RECORDS SUMMARY | 2025-01-06 16:21 | XMS_ITS | Encounter Summary ---
Author Organization [employer] [facility] Address [address] [place] [address] 7t [place] [address] Care Team Providers Care Hospitality Intern Name Role Phone Kathy Villafana MD Primary Care Provider [phone] Reason for Visit * Reason Comments Med Refill Encounter Details Date Type Department Care Team ([facility] st Contact Info) Description 08/18/2023 Refill [facility] MEDICINE 230 [place], [place] [phone] Kathy Villafana MD 230 [place], [place] [phone] Social History Tobacco Use Types Packs/Day Years [...] documented as of this encounter Care Teams Hospitality Intern Relationship Specialty Start Date End Date Kathy Villafana MD 230 [place], [place] [phone] PCP - General Family Medicine 08/05/21 [facility] 12/04/24 documented as of this encounter
--- OUTSIDE RECORDS SUMMARY | 2025-01-06 16:21 | XMS_ITS | Encounter Summary ---
Author Organization [employer] Address [address] [facility] 7t [place] [address] Care Team Providers Care Liquor Department Manager Name Role Phone Kathy Villafana MD Primary Care Provider [phone] Reason for Visit * Reason Comments Med Refill Encounter Details Date Type Department Care Team (Late st Contact Info) Description 12/01/2022 Refill [facility] MED & PEDS [address] [place], [place] [phone] Kathy Villafana MD 230 [place], [place] [phone] Type 2 diabetes mellitus with hyperglycemia, with long-term current use of insulin (CMS/[facility]) Social History Tobacco Use Types Packs/Day [...] (CMS/HCC) documented in this encounter Care Teams Liquor Department Manager Relationship Specialty Start Date End Date Kathy Villafana MD 230 [place], [place] [phone] PCP - General Family Medicine 08/05/21 [facility] 12/04/24 documented as of this encounter
--- OUTSIDE RECORDS SUMMARY | 2025-01-06 16:21 | XMS_ITS | Encounter Summary ---
Author Organization [employer] Address [address] [facility] [address] 7t [place] [address] Care Team Providers Care Thermostatic Controls Supervisor Name Role Phone Kathy Villafana MD Primary Care Provider [phone] Reason for Visit * Reason Onset Date Comments Lab Orders 01/02/2025 Encounter Details Date Type Department Care Team ([facility] st Contact Info) Description 01/02/2025 Telephone [facility] MEDICINE [address] [place], [place] [phone] Kathy Villafana MD 230 [place], [place] [phone] Lab Orders Social History Tobacco Use Types Packs/Day Years [...] encounter Miscellaneous Notes * Telephone Encounter - Sandi Dent RN - 01/02/2025 1:27 PM EST TC returned to Vani [phone] in regards to below message. Vani informed [facility] does NOT go out to patients home ONLY for BW draws. Vani advised [facility] will complete BW at home if the patient is being seen for an acute issue and has BW pending. Vani verbalized understanding and reports the patient has [facility] thru [facility]. RN advised Vani to call [facility] to inquire if they can draw the patients blood work with [facility]. Vani advised to return call to [facility] with POC for BW orders. Vani verbalized understanding. Vani to f/u PRN. * Telephone Encounter - Be Colon - 01/02/2025 1:01 PM EST Vani called in requesting for lab order to be placed [facility] since patient's son would like labs to be drawn at home . Orders needed for [facility] or [facility] EKG can be done by Instead/ orders not needed documented in this encounter Plan of Treatment Not on file documented as of this encounter Visit Diagnoses Not on filedocumented in this encounter Additional Health Concerns Assessment Noted Time PHQ-9 Depression Total Score: 0 02/20/20 24 2:34 PM EDT documented as of this encounter Care Teams Thermostatic Controls Supervisor Relationship Specialty Start Date End Date Kathy Villafana MD [address] [place] [address] PCP - General Family Medicine 08/05/21 [facility] 12/04/24 documented as of this encounter
--- OUTSIDE RECORDS SUMMARY | 2025-01-06 16:21 | XMS_ITS | Encounter Summary ---
Author Organization [employer] Address [address] [facility] [address] 7t [place] [address] Care Team Providers Care Ply Cutter Name Role Phone Kathy Villafana MD Primary Care Provider [phone] Reason for Visit * Reason Onset Date Comments Med Refill 12/16/2024 Encounter Details Date Type Department Care Team (Late st Contact Info) Description 12/16/2024 Refill [facility] MEDICINE 230 [place], [place] [phone] Kathy Villafana MD 230 [place], [place] [phone] Social History Tobacco Use Types Packs/Day Years [...] mg once daily To be sent to: [facility] [address] [place] [phone] documented in this encounter Plan of Treatment Not on file documented as of this encounter Visit Diagnoses Not on filedocumented in this encounter Additional Health Concerns Assessment Noted Time PHQ-9 Depression Total Score: 0 02/20/20 24 2:34 PM EDT documented as of this encounter Care Teams Ply Cutter Relationship Specialty Start Date End Date Kathy Villafana MD [address] [place] [address] PCP - General Family Medicine 08/05/21 [facility] 12/04/24 documented as of this encounter
--- OUTSIDE RECORDS SUMMARY | 2025-01-06 16:21 | XMS_ITS | Encounter Summary ---
Author Organization [employer] Address [address] [facility] [address] 7t [place] [address] Care Team Providers Care Medical Anthropology Director Name Role Phone Kathy Villafana MD Primary Care Provider [phone] Encounter Details Date Type Department Care Team (Latest Contact Info) Description 12/16/2024 9:15 AM EST Office Visit [facility] MEDICINE 230 [place], [place] [phone] Kathy Villafana MD 230 [place], [place] [phone] Chronic renal disease, stage IV (CMS/HCC) (Primary [...] Cough remains from RSV. Will send Tess[employer]. Need to check BMP to evaluate ability [...] Winter, LenyD and pharmacy stock clerk Regulo Mitchell contacted patient to discuss upcoming hospital discharge visit for NSTEMI, CHF : Future Appointments Date Time Provider Department Center 12/16/2024 9:15 AM Kathy Villafana MD MEDICINE [facility] Hospital Course and Medication Reconciliation [facility] (11/27/24-12/03/24) Patient presented for evaluation of cough [...] mg once daily Discontinued: none Preferred Pharmacy: [facility] - [place], [place] - [address] [facility] [address] [facility] [id number] Medbox: Yes Date: 11/17/24 Patient Reported History [...] Patient Active Problem List Diagnosis Alzheimer's disease ([facility]/HCC) Atrial fibrillation ([facility]/HCC) Type 2 diabetes mellitus with diabetic neuropathy, unspecified ([facility]) Frequent fecal incontinence Gastroesophageal reflux disease History of non-ST elevation myocardial infarction (NSTEMI) Hyperlipidemia Right flank pain Type 2 diabetes mellitus ([facility]/HCC) Urinary incontinence CKD stage 3 secondary to diabetes (CMS/HCC) Generalized edema Hypertension Chronic periodontitis Seborrheic dermatitis Poor mobility Upper GI bleed Type 2 diabetes mellitus with diabetic chronic kidney disease ([facility]/HCC) Hospital discharge follow-up Sebaceous cyst Chronic midline 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 Social History Social History Narrative Lives with son and [id number] and two grandchildren ASSESSMENT/PLAN Problem List Items Addressed This Visit CKD stage 3 secondary to diabetes ([facility]/HCC) Chronic renal disease, stage IV ([facility]/HCC) - Primary Relevant Orders Basic Metabolic Panel [...] 28 DAYS, Disp: , Rfl: Continuous Glucose Operations Support Analyst ([employer] [place]) device, Scan sensor every 8 hours, Disp: 1 each, Rfl: 0 Continuous Glucose Sensor ([employer] [place] 2 Sensor) [facility], Apply 1 sensor every 14 days, Disp: [...] TWICE DAILY, Disp: 100 each, Rfl: 11 Filipino Translation: Provided by [facility] staff member HANNA Da Silva documented [...] documented as of this encounter Care Teams Medical Anthropology Director Relationship Specialty Start Date End Date Kathy Villafana MD [address] [place] [address] PCP - General Family Medicine 08/05/21 [facility] 12/04/24 documented as of this encounter
--- OUTSIDE RECORDS SUMMARY | 2025-01-06 16:21 | XMS_ITS | Clinical Summary ---
Author Organization [facility] Address [address] [address] Care Team Providers Care Cafeteria Food Server Name Role Phone Kathy Villafana MD Primary Care Provider [phone] Medications pantoprazole (PROTONIX) 40 MG EC tablet [...] patient's age to complete this topic Insurance [facility] ([id number]) KENJI AUGUSTINE [id number] [facility] ([id number]) KENJI AUGUSTINE [id number] Care Teams Cafeteria Food Server Relationship Specialty Start Date End Date Kathy Villafana MD PCP - General Electric Truck Driver 10/13/21
--- OUTSIDE RECORDS SUMMARY | 2025-01-06 16:21 | XMS_ITS | Encounter Summary ---
Author Organization [employer] Address [address] [facility] [address] 7t [place] [address] Care Team Providers Care Pot Firer Name Role Phone Kathy Villafana MD Primary Care Provider [phone] Encounter Details Date Type Department Care Team (Late st Contact Info) Description 12/20/2023 Abstract [facility] MEDICINE 230 [place], [place] [phone] Kathy Villafana MD 230 [place], [place] [phone] Social History Tobacco Use Types Packs/Day Years [...] documented as of this encounter Care Teams Pot Firer Relationship Specialty Start Date End Date Kathy Villfaana MD 230 [place] [address] PCP - General Family Medicine 08/05/21 [facility] 12/04/24 documented as of this encounter
--- OUTSIDE RECORDS SUMMARY | 2025-01-06 16:21 | XMS_ITS | Encounter Summary ---
Author Organization [employer] Address [address] [facility] [address] 7t [place] [address] Care Team Providers Care Line Construction Supervisor Name Role Phone Kathy Villafana MD Primary Care Provider [phone] Encounter Details Date Type Department Care Team (Late st Contact Info) Description 11/14/2023 Orders Only [facility] MEDICINE [address] [place], [place] [phone] Kathy Villafana MD 230 [place], [place] [phone] Social History Tobacco Use Types Packs/Day Years [...] documented as of this encounter Care Teams Line Construction Supervisor Relationship Specialty Start Date End Date Kathy Villafana MD [address] [place] [address] PCP - General Family Medicine 08/05/21 [facility] 12/04/24 documented as of this encounter
--- OUTSIDE RECORDS SUMMARY | 2025-01-06 16:21 | XMS_ITS | Encounter Summary ---
Author Organization [employer] Address [address] [facility] [address] 7t [place] [address] Care Team Providers Care Plate Drying Machine Tender Name Role Phone Kathy Villafana MD Primary Care Provider [phone] Reason for Visit * Reason Comments Med Refill Encounter Details Date Type Department Care Team ([facility] st Contact Info) Description 11/18/[address] [facility] MEDICINE 230 [place], [place] [phone] Kathy Villafana MD 230 [place], [place] [phone] Type 2 diabetes mellitus with hyperglycemia, with long-term current use of insulin ([facility]) Social History Tobacco Use Types Packs/Day Years [...] hyperglycemia, with long-term current use of insulin ([facility]) documented in this encounter Additional Health Concerns Assessment Noted Time PHQ-9 Depression Total Score: 0 01/22/20 23 3:42 PM EST documented as of this encounter Care Teams Plate Drying Machine Tender Relationship Specialty Start Date End Date Kathy Villafana MD [address] [place] [address] PCP - General Family Medicine 08/05/21 [facility] 12/04/24 documented as of this encounter
--- OUTSIDE RECORDS SUMMARY | 2025-01-06 16:21 | XMS_ITS | Encounter Summary ---
Author Organization [email or web address] Address [address] [facility] [address] 7t [place] [address] Care Team Providers Care Seismograph Computer Name Role Phone Kathy Villafana MD Primary Care Provider [phone] Reason for Visit * Reason Comments Med Refill Encounter Details Date Type Department Care Team ([facility] st Contact Info) Description 11/28/2023 Refill [facility] MEDICINE 230 [place], [place] [phone] Kathy Villafana MD 230 [place], [place] [phone] Social History Tobacco Use Types Packs/Day Years [...] documented as of this encounter Care Teams Seismograph Computer Relationship Specialty Start Date End Date Kathy Villafana MD 230 [place] [address] PCP - General Family Medicine 08/05/21 [facility] 12/04/24 documented as of this encounter
--- OUTSIDE RECORDS SUMMARY | 2025-01-06 16:21 | XMS_ITS | Encounter Summary ---
Author Organization [employer] Address [address] [facility] [address] 7t [place] [address] Care Team Providers Care Lagging Machine Operator Name Role Phone Kathy Villafana MD Primary Care Provider [phone] Encounter Details Date Type Department Care Team (Late st Contact Info) Description 09/18/2023 Abstract [facility] MEDICINE 230 [place], [place] [phone] Kathy Villafana MD 230 [place], [place] [phone] Social History Tobacco Use Types Packs/Day Years [...] documented as of this encounter Care Teams Lagging Machine Operator Relationship Specialty Start Date End Date Kathy Villafana MD 230 [place] [address] PCP - General Family Medicine 08/05/21 [facility] 12/04/24 documented as of this encounter
--- OUTSIDE RECORDS SUMMARY | 2025-01-06 16:21 | XMS_ITS | Encounter Summary ---
Author Organization [employer] Address [address] [facility] 7t [place] [address] Care Team Providers Care Occasional Caregiver Name Role Phone Kathy Villafana MD Primary Care Provider [phone] Reason for Visit * Reason Onset Date Comments triage 12/06/2022 Encounter Details Date Type Department Care Team (Late st Contact Info) Description 12/06/2022 Telephone [facility] MEDICINE 230 [place], [place] [phone] Kathy Villafana MD 230 [place], [place] [phone] triage Social History Tobacco Use Types Packs/Day [...] No answer LVM to return call to [facility] triage line. * Telephone Encounter - Abhishek Herman - 12/06/2022 2:25 PM EST Symptom: Constipation Outcome: Schedule an appointment to be seen within 24 hours Reason: No high acuity concerns reported by caller The caller accepted this outcome speaks panamanian documented in this encounter Plan of Treatment Not on file documented as of this encounter Visit Diagnoses Not on filedocumented in this encounter Care Teams Occasional Caregiver Relationship Specialty Start Date End Date Kathy Villafana MD [address] [place] [address] PCP - General Family Medicine 08/05/21 [facility] 12/04/24 documented as of this encounter
--- OUTSIDE RECORDS SUMMARY | 2025-01-06 16:21 | XMS_ITS | Encounter Summary ---
Author Organization [employer] Address [address] [facility] [address] 7t [place] [address] Care Team Providers Care Dentist Private Practice Name Role Phone Kathy Villafana MD Primary Care Provider [phone] Encounter Details Date Type Department Care Team (Late st Contact Info) Description 11/28/2023 Orders Only [facility] MEDICINE 230 [place], [place] [phone] Kathy Villafana MD 230 [place], [place] [phone] Social History Tobacco Use Types Packs/Day Years [...] documented as of this encounter Care Teams Dentist Private Practice Relationship Specialty Start Date End Date Kathy Villafana MD 230 [place] [address] PCP - General Family Medicine 08/05/21 [facility] 12/04/24 documented as of this encounter
--- OUTSIDE RECORDS SUMMARY | 2025-01-06 16:21 | XMS_ITS | Encounter Summary ---
Author Organization [employer] Address [address] [facility] 7t [place] [address] Care Team Providers Care Purchase Price Analyst Name Role Phone Kathy Villafana MD Primary Care Provider [phone] Encounter Details Date Type Department Care Team (Late st Contact Info) Description 12/12/2022 Orders Only [facility] CHC MED & PEDS [address] [place] [address] Mary Ann Skaggs LPN Social History Tobacco [...] on filedocumented in this encounter Care Teams Purchase Price Analyst Relationship Specialty Start Date End Date Kathy Villafana MD [address] [place] [address] PCP - General Family Medicine 08/05/21 [facility] 12/04/24 documented as of this encounter
--- OUTSIDE RECORDS SUMMARY | 2025-01-06 16:21 | XMS_ITS | Encounter Summary ---
Author Organization [email or web address] Address [address] [facility] 7t [place] [address] Care Team Providers Care Program Management Manager Name Role Phone Kathy Villafana MD Primary Care Provider [phone] Encounter Details Date Type Department Care Team (Late st Contact Info) Description 12/09/2024 Refill [facility] MEDICINE 230 [place], [place] [phone] Shama Winter PharmD 230 [place], [place] [phone] Social History Tobacco Use Types Packs/Day Years [...] Miscellaneous Notes * Telephone Encounter - Shama Winter PharmD - 12/09/2024 3:54 PM EST Patient [...] documented as of this encounter Care Teams Program Management Manager Relationship Specialty Start Date End Date Kathy Villafana MD 230 [place] [address] PCP - General Family Medicine 08/05/21 [facility] 12/04/24 documented as of this encounter
--- OUTSIDE RECORDS SUMMARY | 2025-01-06 16:21 | XMS_ITS | Encounter Summary ---
Author Organization [employer] Address [address] [facility] [address] 7t [place] [address] Care Team Providers Care Kitchen Aide Name Role Phone Kathy Villafana MD Primary Care Provider [phone] Encounter Details Date Type Department Care Team [...] documented as of this encounter Care Teams Kitchen Aide Relationship Specialty Start Date End Date Kathy Villafana MD [address] [place] [address] PCP - General Family Medicine 08/05/21 [facility] 12/04/24 documented as of this encounter
--- OUTSIDE RECORDS SUMMARY | 2025-01-06 16:21 | XMS_ITS | Encounter Summary ---
Author Organization [employer] Address [address] [facility] [address] 7t [place] [address] Care Team Providers Care Records Assistant Name Role Phone Kathy Villafana MD Primary Care Provider [phone] Reason for Visit * Reason Onset Date Comments Durable Medical Equipment 01/02/2025 Encounter Details Date Type Department Care Team ([facility] st Contact Info) Description 01/02/2025 Telephone [facility] MEDICINE 230 [place], [place] [phone] Kathy Villafana MD 230 [place], [place] [phone] Durable Medical Equipment Social History Tobacco Use Types Packs/Day Years [...] encounter Miscellaneous Notes * Telephone Encounter - Be Colon - 01/02/2025 12:58 PM EST TC from [facility] with [facility] requesting a Glucometer replacement ( free style lite) Also needing pulse oximeter ( current one broke ) documented in this encounter Plan of Treatment Not on file documented as of this encounter Visit Diagnoses Not on filedocumented in this encounter Additional Health Concerns Assessment Noted Time PHQ-9 Depression Total Score: 0 02/20/20 24 2:34 PM EDT documented as of this encounter Care Teams Records Assistant Relationship Specialty Start Date End Date Kathy Villafana MD [address] [place] [address] PCP - General Family Medicine 08/05/21 [facility] 12/04/24 documented as of this encounter
--- OUTSIDE RECORDS SUMMARY | 2025-01-06 16:21 | XMS_ITS | Encounter Summary ---
Author Organization [employer] Address 75 [facility] 7t [place] [address] Care Team Providers Care Topographical Drafter Name Role Phone Kathy Villafana MD Primary Care Provider [phone] Reason for Visit * Reason Comments Med Refill Encounter Details Date Type Department Care Team ([facility] st Contact Info) Description 05/24/2023 Refill [facility] MEDICINE 230 [place], [place] [phone] Kathy Villafana MD 230 [place], [place] [phone] Social History Tobacco Use Types Packs/Day Years [...] documented as of this encounter Care Teams Topographical Drafter Relationship Specialty Start Date End Date Kathy Villafana MD 230 [place] [address] PCP - General Family Medicine 08/05/21 [facility] 12/04/24 documented as of this encounter
--- OUTSIDE RECORDS SUMMARY | 2025-01-06 16:21 | XMS_ITS | Encounter Summary ---
Author Organization [employer] Address 75 [facility] 7t [place] [address] Care Team Providers Care Informaticist Name Role Phone Kathy Villafana MD Primary Care Provider [phone] Encounter Details Date Type Department Care Team (Late st Contact Info) Description 01/06/2025 Orders Only GENERIC EXTERNAL DATA [...] BLOOD GAS Routine 01/06/2025 3:44 PM EST CBC WITH AUTO DIFFERENTIAL Routine 01/06/2025 3:40 PM EST B TYPE NATRIURETIC PEPTIDE (BNP) Routine 01/06/2025 3:40 PM EST BASIC METABOLIC PANEL Routine 01/06/2025 3:40 PM EST documented in this encounter Results * (ABNORMAL) VENOUS BLOOD GAS (01/06/2025 3:44 PM EST) VBG pH 7.50(H) 7.32 - 7.43 [facility] Comment:METER #: [id number] additional_comment: Margiej VBG PCO2 43 mmHg [facility] Comment:METER #: [id number] additional_comment: Margiej VBG PO2 149 mmHg [facility] Comment:METER #: [id number] additional_comment: Brenden VBG Base Excess 10.1 mmol/L [facility] Comment:METER #: [id number] additional_comment: Margiej VBG HCO3 34(H) 22 - 26 mmol/L [facility] Comment:METER #: [id number] additional_comment: Myrondj O2 Sat, Cas 99.0 % [facility] Comment:METER #: [id number] additional_comment: Myrondj 01/06/2025 3:44 PM EST 01/06/2025 3:49 PM EST us Generic External Data Provider LAB BLOOD ORDERAB LES Final Result Performing Organization Address [facility]/ZIP Co de Phone Number [facility] [address] [place] [phone] * (ABNORMAL) B Type Natriuretic Peptide (BNP) (01/06/2025 3:40 PM EST) [facility] B Type Natriuretic Peptide 430(H) <100 pg/mL [facility] Comment:For those patients w ho are being treated with Natrecor(nesiritide, recombinant BNP), BNP testing should beperformed at least two hours post treatment in order toensure that only endogenous levels of BNP are detected. 01/06/2025 3:40 PM EST 01/06/2025 3:43 PM EST Generic External Data Provider LAB BLOOD ORDERAB LES Final Result Performing Organization Address [facility] de Phone Number [facility] [address] [place] [address] [phone] * (ABNORMAL) Basic Metabolic Panel (01/06/2025 3:40 PM EST) [facility] Sodium 139 135 - 145 mmol/L [facility] Potassium 5.6(H) 3.3 - 5.1 mmol/L [facility] Comment:Slight Hemolysis.Int erpret result with caution. Chloride 102 96 - 108 mmol/L [facility] Carbon Dioxide 28 22 - 29 mmol/L [facility] Anion Gap 15 12 - 20 [facility] Urea Nitrogen (BUN) 30(H) 9 - 16 mg/dL [facility] Creatinine, Serum 1.85(H) 0.5 - 1.4 mg/dL [facility] Creatinine Clr Calc Pharmacy TNP [facility] Comment:Unable to calculate eCrCL; all parameters not provided. Estimated Glomerular Filt Rate 35 [facility] Comment:Chronic Kidney Disea se: Estimated GFR < 60 mL/min/1.34k1Cbsibd Kidney Disease: Estimated GFR < 15 mL/min/1.73m2 Glucose 323(H) 60 - 115 mg/dL [facility] Calcium 8.8 8.4 - 10.2 mg/dL [facility] 01/06/2025 3:40 PM EST 01/06/2025 3:43 PM EST us Generic External Data Provider LAB BLOOD ORDERAB LES Final Result Performing Organization Address City/State/[facility] Co de Phone Number [facility] [address] [place] [address] [phone] * (ABNORMAL) CBC auto differential (01/06/2025 3:40 PM EST) White Blood Count 9.1 4.8 - 10.8 X10*3/uL [facility] Red Blood Count 3.42(L) 4.60 - 5.80 X10*6/uL [facility] Hemoglobin 10.2(L) 14.0 - 18.0 g/dl [facility] Hematocrit 33.1(L) 42.0 - 52.0 % [facility] Mean Corpuscular Volume 96.8 80.0 - 98.0 fL [facility] Mean Corpuscular Hemoglobin 29.8 27.0 - 33.0 pg [facility] Mean Corpuscular HGB Conc 30.8(L) 31.0 - 36.0 g/dl [facility] Red Cell Distribution Width 15.7 11.0 - 16.0 % [facility] Platelet Count 180 160 - 400 X10*3/uL [facility] Mean Platelet Volume 12.1 9.4 - 12.4 fL [facility] Neutrophils Percent Auto 85.2(H) 45 - 73 % [facility] Imm Gran Pct Auto 0.3 0.0 - 0.4 % [facility] Lymphocytes Percent Auto 7.4(L) 20 - 40 % [facility] Monocytes Percent Auto 5.9 2 - 11 % [facility] Eosinophils Percent Auto 1.0 0 - 4 % [facility] Basophils Percent Auto 0.2 0 - 2 % [facility] NRBC Pct Auto 0.0 0.0 - 0.2 /100WBC [facility] Neutrophils Absolute Auto 7.8 2.0 - 8.3 x10*3/uL [facility] Imm Gran Abs Auto 0.03 0.00 - 0.03 X10*3/uL [facility] Lymphocytes Absolute Auto 0.7(L) 1.2 - 4.9 X10*3/uL [facility] Monocytes Absolute Auto 0.5 0.1 - 1.2 X10*3/uL [facility] Eosinophils Absolute Auto 0.1 0.0 - 0.4 X10*3/uL [facility] Basophils Absolute Auto 0.0 0.0 - 0.2 X10*3/uL [facility] NRBC Abs Auto 0.000 0.0 - 0.012 X10*3/uL [facility] 01/06/2025 3:40 PM EST 01/06/2025 3:43 PM EST us Generic External Data Provider LAB BLOOD ORDERAB LES Final Result Performing Organization Address City/State/[facility] Co de Phone Number [facility] [address] [place] [address] [phone] documented in this encounter Visit Diagnoses Not on filedocumented in this encounter Additional Health Concerns Assessment Noted Time PHQ-9 Depression Total Score: 0 02/20/20 24 2:34 PM EDT documented as of this encounter Care Teams Informaticist Relationship Specialty Start Date End Date Kathy Villafana MD [address] [place] [phone] PCP - General Family Medicine 08/05/21 [facility] 12/04/24 documented as of this encounter
--- OUTSIDE RECORDS SUMMARY | 2025-01-06 16:21 | XMS_ITS | Encounter Summary ---
Author Organization [employer] Address 75 [facility] 7t [place] [address] Care Team Providers Care Community Health Nurse Name Role Phone Kathy Villafana MD Primary Care Provider [phone] Reason for Visit * Reason Onset Date Comments difficulty with extraction 05/23/2023 Encounter Details Date Type Department Care Team (Late st Contact Info) Description 05/23/2023 Telephone [facility] ADULT DENTAL [address] [place] [address] Tr Tay DDS [address] [place] [address] difficulty with extraction Social History Tobacco Use [...] time. No room on PAR end. Can front end loader driver help with scheduling . * Telephone Encounter [...] for patient to be seen today. Called front end loader driver. Recommended to contact you for insight documented in this encounter Plan of Treatment Not on file documented as of this encounter Visit Diagnoses Not on filedocumented in this encounter Additional Health Concerns Assessment Noted Time PHQ-9 Depression Total Score: 0 01/22/20 23 3:42 PM EST documented as of this encounter Care Teams Community Health Nurse Relationship Specialty Start Date End Date Kathy Villafana MD [address] [place] [address] PCP - General Family Medicine 08/05/21 [facility] 12/04/24 documented as of this encounter
--- OUTSIDE RECORDS SUMMARY | 2025-01-06 16:21 | XMS_ITS | Encounter Summary ---
Author Organization [employer] Address [address] [facility] [address] 7t [place] [address] Care Team Providers Care Insulation Applicator Name Role Phone Kathy Villafana MD Primary Care Provider [phone] Encounter Details Date Type Department Care Team (Late st Contact Info) Description 09/24/2023 Abstract [facility] MEDICINE [address] [place], [place] [phone] Kathy Villafana MD [address] [place], [place] [phone] Social History Tobacco Use Types Packs/Day Years [...] documented as of this encounter Care Teams Insulation Applicator Relationship Specialty Start Date End Date Kathy Villafana MD [address] [place] [address] PCP - General Family Medicine 08/05/21 [facility] 12/04/24 documented as of this encounter
--- OUTSIDE RECORDS SUMMARY | 2025-01-06 16:21 | XMS_ITS | Encounter Summary ---
Author Organization [employer] Address [address] [facility] [address] 7t [place] [address] Care Team Providers Care Kiln Maintenance Name Role Phone Kathy Villafana MD Primary Care Provider [phone] Reason for Visit * Reason Onset Date Comments Hospital Follow-up 06/05/2024 Encounter Details Date Type Department Care Team ([facility] st Contact Info) Description 06/05/2024 Telephone [facility] MEDICINE [address] [place], [place] [phone] Kathy Villafana MD [address] [place], [place] [phone] Hospital Follow-up Social History Tobacco Use Types [...] from pt requesting a HDF appt. [place] [facility] Date of admission: 05/19 Discharge date: 05/21 Diagnosed: Fever and swelling documented in this encounter Plan of Treatment Not on file documented as of this encounter Visit Diagnoses Not on filedocumented in this encounter Additional Health Concerns Assessment Noted Time PHQ-9 Depression Total Score: 0 02/20/20 24 2:34 PM EDT documented as of this encounter Care Teams Kiln Maintenance Relationship Specialty Start Date End Date Kathy Villafana MD [address] [place] [phone] PCP - General Family Medicine 08/05/21 [facility] 12/04/24 documented as of this encounter
[2025-01-06 16:31] LABS: Influenza A PCR NEGATIVE (Negative); Influenza B PCR NEGATIVE (Negative); Resp Syncy Virus RNA Qual PCR NEGATIVE (Negative); SARS COV2 PCR INHOUSE NEGATIVE (Negative)
--- NOTE | 2025-01-06 17:37 | PC.NURSE ---
pt has been maintaining sats in mid to high 90'2 on 2lpm. pt has been reevaluated by md. 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 pt and family are aware and agreeable to plan.
--- NOTE | 2025-01-06 19:01 | PC.NURSE ---
assumed care of the pt at 1900. report received from [address]. per previous rn patient waiting for ambulance transport back home
[2025-01-06 20:20] VITALS: BP 159/60; PULSE 73; RESP 18; TEMP 36.5; O2SAT 95
== END 2025-01-06 20:21 | disposition home or self-care (01) ==
PROVIDERS: Emergency Provider Emergency Medicine; PCP General Practice
DX: R06.00 Dyspnea, unspecified (principal); E11.65 Type 2 diabetes mellitus with hyperglycemia; I48.91 Unspecified atrial fibrillation; R94.31 Abnormal electrocardiogram [ECG] [EKG]; G30.9 Alzheimer's disease, unspecified; I25.10 Atherosclerotic heart disease of native coronary artery without angina pectoris; F02.80 Dementia in other diseases classified elsewhere, unspecified severity, without behavioral disturbance, psychotic disturbance, mood disturbance, and anxiety; Z79.4 Long term (current) use of insulin; Z79.01 Long term (current) use of anticoagulants; Z79.899 Other long term (current) drug therapy
CPT/HCPCS: 0241U; 36415; 71045; 80048; 82803; 83880; 85025; 93005; 96374; 99283; 99284

== ENCOUNTER → 2025-01-06 14:56 | Outpatient (BNV) | payer OTHER, SELFPAY | PROVIDERS: Emergency Provider Emergency Medicine; PCP General Practice; Visit Provider Internal Medicine Cardiovascular Disease | DX: I48.91 Unspecified atrial fibrillation (principal) | CPT/HCPCS: 93010 ==

== ENCOUNTER → 2025-01-06 16:13 | Outpatient (BNV) | payer OTHER, SELFPAY | PROVIDERS: Emergency Provider Emergency Medicine; PCP General Practice; Visit Provider Radiology Diagnostic Radiology | DX: I51.7 Cardiomegaly (principal); I50.9 Heart failure, unspecified; J81.0 Acute pulmonary edema | CPT/HCPCS: 71045 ==

== ENCOUNTER 2025-01-08 08:02 | Inpatient (IN) | payer OTHER, SELFPAY ==
[2025-01-08] VITALS (16 sets, daily range): BP systolic 113–180; BP diastolic 44–90; PULSE 51–83; RESP 14–28; TEMP 35.8–36.4; O2SAT 82–97; BMI 35.6
--- NOTE | 2025-01-08 | ECG_ITS ---
Test Reason : SOB Blood Pressure : */* mmHG Vent. Rate : 65 BPM Atrial Rate : * BPM P-R Int : * ms QRS Dur : 82 ms QT Int : 382 ms P-R-T Axes : * 40 113 degrees QTcB Int : 397 ms Atrial fibrillation Nonspecific ST and T wave abnormality Abnormal ECG When compared with ECG of 06-Jan-2025 15:18, No significant change was found Referred By: Generic ED Physician Electronically Signed By: PANKAJ BRASWELL MD
--- NOTE | ~2025-01-08 | XR_ITS ---
EXAMINATION: XR CHEST 1 VIEW HISTORY: Shortness of breath, hypoxia, rule out pneumonia, COMPARISON: Comparison is made with the prior examination dated 01/06/2025. FINDINGS: A single AP portable view of the chest performed at 10:40 AM is submitted. Again seen is opacification of both lung bases which may represent atelectasis or pneumonia and pleural effusions. There is mild pulmonary vascular congestion. No pneumothorax. The heart is normal in size. There is degenerative disc disease of the spine. XR/XR chest 1V IMPRESSION: Mild pulmonary vascular congestion. Persistent opacification of both lung bases which may represent atelectasis or pneumonia and pleural fluid. Electronically signed by: Rony Lion MD 01/08/2025 11:05 AM [facility]
--- NOTE | 2025-01-08 08:13 | PC.RT ---
RT assessed pt on EMS arrival. Pt received douneb in route. L/S bilateral diminished wheezes. Pt on 2L NC baseline, SATs 90% on 2L.
--- OUTSIDE RECORDS SUMMARY | 2025-01-08 08:44 | XMS_ITS | Encounter Summary ---
Author Organization [employer] Address 75 [facility] 7t [place] [address] Care Team Providers Care Coat Baster Name Role Phone Kathy Villafana MD Primary Care Provider [phone] Encounter Details Date Type Department Care Team (Late st Contact Info) Description 12/12/2022 Orders Only [facility] MED & PEDS [address] [place] [address] Mary Ann Skaggs LPN Social History Tobacco [...] on filedocumented in this encounter Care Teams Coat Baster Relationship Specialty Start Date End Date Kathy Villafana MD [address] [place] [phone] PCP - General Family Medicine 08/05/21 [facility] 12/04/24 documented as of this encounter
--- OUTSIDE RECORDS SUMMARY | 2025-01-08 08:44 | XMS_ITS | Encounter Summary ---
Author Organization [employer] Address 75 [facility] 7t [place] [address] Care Team Providers Care Heel Seam Rubber Name Role Phone Kathy Villafana MD Primary Care Provider [phone] Encounter Details Date Type Department Care Team (Late st Contact Info) Description 05/22/2023 Abstract [facility] ADULT DENTAL [address] [place], [place] [phone] Tr Tay DDS [address] [place], [place] [phone] Social History Tobacco Use Types Packs/Day Years [...] documented as of this encounter Care Teams Heel Seam Rubber Relationship Specialty Start Date End Date Kathy Villafana MD [address] [place] [address] PCP - General Family Medicine 08/05/21 [facility] 12/04/24 documented as of this encounter
--- OUTSIDE RECORDS SUMMARY | 2025-01-08 08:44 | XMS_ITS | Encounter Summary ---
Author Organization [employer] [facility] Address 75 [facility] 7t [place] [address] Care Team Providers Care Asphalt Plant Operator Name Role Phone Kathy Villafana MD Primary Care Provider [phone] Reason for Visit * Reason Comments Med Refill Encounter Details Date Type Department Care Team ([facility] st Contact Info) Description 05/16/2023 Refill [facility] MEDICINE [address] [place], [place] [phone] Kathy Villafana MD [address] [place], [place] [phone] Social History Tobacco Use Types Packs/Day Years [...] documented as of this encounter Care Teams Asphalt Plant Operator Relationship Specialty Start Date End Date Kathy Villafana MD [address] [place], [place] [phone] PCP - General Family Medicine 08/05/21 [facility] 12/04/24 documented as of this encounter
--- OUTSIDE RECORDS SUMMARY | 2025-01-08 08:44 | XMS_ITS | Encounter Summary ---
Author Organization [employer] Address [address] [facility] [address] 7t [place] [address] Care Team Providers Care Processing Technician Name Role Phone Kathy Villafana MD Primary Care Provider [phone] Reason for Visit * Reason Onset Date Comments Lab Orders 01/02/2025 Encounter Details Date Type Department Care Team ([facility] st Contact Info) Description 01/02/2025 Telephone [facility] MEDICINE [address] [place], [place] [phone] Kathy Villafana MD [address] [place], [place] [phone] Lab Orders Social History Tobacco Use Types [...] 1:27 PM EST TC returned to Vani [phone] in regards to below message. Vani informed [facility] does NOT go out to patients home ONLY for BW draws. Vani advised [facility] will complete BW at home if the patient is being seen for an acute issue and has BW pending. Vani verbalized understanding and reports the patient has [facility] thru [facility]. RN advised Vani to call [facility] to inquire if they can draw the patients blood work with [facility]. Vani advised to return call to [facility] with POC for BW orders. Vani verbalized understanding. Vani to f/u PRN. * Telephone Encounter - Be Colon - 01/02/2025 1:01 PM EST Vani called in requesting for lab order to be placed / [facility] since patient's son would like labs [...] documented as of this encounter Care Teams Processing Technician Relationship Specialty Start Date End Date Kathy Villafana MD [address] [place] [address] PCP - General Family Medicine 08/05/21 [facility] 12/04/24 documented as of this encounter
--- OUTSIDE RECORDS SUMMARY | 2025-01-08 08:44 | XMS_ITS | Encounter Summary ---
Author Organization [employer] Address 75 [facility] 7t [place] [address] Care Team Providers Care Director Behavioral Health Name Role Phone Kathy Villafana MD Primary Care Provider [phone] Reason for Visit * Reason Onset Date Comments difficulty with extraction 05/23/2023 Encounter Details Date Type Department Care Team (Late st Contact Info) Description 05/23/2023 Telephone [facility] ADULT DENTAL [address] [place], [place] [phone] Tr Tay DDS [address] [place], [place] [phone] difficulty with extraction Social History Tobacco Use [...] Miscellaneous Notes * Telephone Encounter - Sejal Lcuas - 05/23/2023 12:[address] Tay due to patient condition he is willing to see patient at any time. No room on PAR end. Can front end architect help with scheduling . * Telephone Encounter [...] to be seen today. Called front end architect. Recommended to contact you for insight documented in this encounter Plan of Treatment Not on file documented as of this encounter Visit Diagnoses Not on filedocumented in this encounter Additional Health Concerns Assessment Noted Time PHQ-9 Depression Total Score: 0 01/22/20 23 3:42 PM EST documented as of this encounter Care Teams Director Behavioral Health Relationship Specialty Start Date End Date Kathy Villafana MD [address] [place] [address] PCP - General Family Medicine 08/05/21 [facility] 12/04/24 documented as of this encounter
--- OUTSIDE RECORDS SUMMARY | 2025-01-08 08:44 | XMS_ITS | Encounter Summary ---
Author Organization [employer] Address 75 [facility] 7t [place] [address] Care Team Providers Care Rn Review Name Role Phone Kathy Villafana MD Primary Care Provider [phone] Reason for Visit * Reason Comments Med Refill Encounter Details Date Type Department Care Team ([facility] st Contact Info) Description 05/24/2023 Refill [facility] MEDICINE [address] [place], [place] [phone] Kathy Villafana MD [address] [place], [place] [phone] Social History Tobacco Use Types Packs/Day Years [...] documented as of this encounter Care Teams Rn Review Relationship Specialty Start Date End Date Kathy Villafana MD [address] [place] [address] PCP - General Family Medicine 08/05/21 [facility] 12/04/24 documented as of this encounter
--- OUTSIDE RECORDS SUMMARY | 2025-01-08 08:44 | XMS_ITS | Encounter Summary ---
Author Organization [employer] Address [address] [facility] [address] [place] [address] Care Team Providers Care Bag Valver Name Role Phone Kathy Villafana MD Primary Care Provider [phone] Reason for Visit * Reason Onset Date Comments Hospital Follow-up 06/05/2024 Encounter Details Date Type Department Care Team ([facility] st Contact Info) Description 06/05/2024 Telephone [facility] MEDICINE [address] [place], [place] [phone] Kathy Villafana MD [address] [place], [place] [phone] Hospital Follow-up Social History Tobacco Use Types [...] from pt requesting a HDF appt. Hospital: [facility] Date of admission: 05/19 Discharge date: 05/21 Diagnosed: Fever and swelling documented in this encounter Plan of Treatment Not on file documented as of this encounter Visit Diagnoses Not on filedocumented in this encounter Additional Health Concerns Assessment Noted Time PHQ-9 Depression Total Score: 0 02/20/20 24 2:34 PM EDT documented as of this encounter Care Teams Bag Valver Relationship Specialty Start Date End Date Kathy Villafana MD [address] [place] [address] PCP - General Family Medicine 08/05/21 [facility] 12/04/24 documented as of this encounter
--- OUTSIDE RECORDS SUMMARY | 2025-01-08 08:44 | XMS_ITS | Encounter Summary ---
Author Organization [employer] Address 75 [facility] 7t [place] [address] Care Team Providers Care Rd Manager Name Role Phone Kathy Villafana MD Primary Care Provider [phone] Encounter Details Date Type Department Care Team (Late st Contact Info) Description 01/12/2023 Orders Only [facility] CHC MED & PEDS [address] [place] [address] Mary Ann Skaggs LPN Social History Tobacco [...] on filedocumented in this encounter Care Teams Rd Manager Relationship Specialty Start Date End Date Kathy Villafana MD [address] [place] [address] PCP - General Family Medicine 08/05/21 [facility] 12/04/24 documented as of this encounter
--- OUTSIDE RECORDS SUMMARY | 2025-01-08 08:44 | XMS_ITS | Encounter Summary ---
Author Organization [employer] Address [address] [facility] [address] [place] [address] Care Team Providers Care Towel Cabinet Repairer Name Role Phone Kathy Villafana MD Primary Care Provider [phone] Reason for Visit * Reason Onset Date Comments Med Refill 12/16/2024 Encounter Details Date Type Department Care Team (Late st Contact Info) Description 12/16/2024 Refill [facility] MEDICINE [address] [place], [place] [phone] Kathy Villafana MD [address] [place], [place] [phone] Social History Tobacco Use Types Packs/Day Years [...] mg once daily To be sent to: [facility] [address] [place] [phone] documented in this encounter Plan of Treatment Not on file documented as of this encounter Visit Diagnoses Not on filedocumented in this encounter Additional Health Concerns Assessment Noted Time PHQ-9 Depression Total Score: 0 02/20/20 24 2:34 PM EDT documented as of this encounter Care Teams Towel Cabinet Repairer Relationship Specialty Start Date End Date Kathy Villafana MD [address] [place] [phone] PCP - General Family Medicine 08/05/21 [facility] 12/04/24 documented as of this encounter
--- OUTSIDE RECORDS SUMMARY | 2025-01-08 08:44 | XMS_ITS | Clinical Summary ---
Author Organization [employer] Address [address] [facility] [address] [place] [address] Care Team Providers Care Director Internal Control Name Role Phone Kathy Villafana MD Primary Care Provider [phone] Allergies No known active allergies Medications Blood [...] long-term current use of insulin ([facility]) TEST BLOOD SUGAR THREE TIMES DAILY 100 [...] long-term current use of insulin ([facility]) INJECT 76 UNITS SUBCUTANEOUSLY WITH BREAKFAST, AND [...] areas 150 g 024 Active Continuous Glucose Steward/Stewardess Banquet (FreeStyle Park 2 Randall) deviceIndication s:Type 2 diabetes mellitus with diabetic neuropathy, with long-term current use of insulin ([facility]) Scan sensor every 8 hours 1 each Active Continuous Glucose Sensor (FreeStyle Park 2 Sensor) miscIndications: Type 2 diabetes mellitus with diabetic neuropathy, with long-term current use of insulin ([facility]) Apply 1 sensor every 14 days 2 each 024 Active apixaban (Eliquis) 5 MG tabletIndication s:Atrial fibrillation, unspecified type ([facility]) TAKE 1 TABLET BY MOUTH TWICE DAILY [...] (81 mg) Once per day. 30 tablet Active tamsulosin (Flomax) 0.4 MG 24 hr capsule Take 1 capsule (0.4 mg) by mouth at bedtime. 30 capsule Active isosorbide mononitrate ER (Imdur) 60 MG 24 hr tablet Take 1 tablet (60 mg) by mouth Once per day. 30 tablet Active isosorbide mononitrate ER (Imdur) 60 MG [...] Villafana, here for a HDF Admitted to [facility] from 05/17-05/19/2024 Patient presented c/o dizziness and [...] recurrent sebaceous cysts on his back, his career education teacher recently drained one and although there is [...] will be referred to PT/OT clinic for [id number] examination, and after evaluation by PT/OT will order a power mobility device. Chronic periodontitis 05/21/2023 Alzheimer's disease 01/22/2023 Assessment & Plan (05/21/2024 10:21 AM EDT): Continue Donepezil 10mg and Memantine 10mg daily Son is [employer]INT [employer], needs assistance with paperwork for medical power or tax attorney Decided against medical guardianship due to fears he would become responsible for debts of his father Continue day/night cycles Continue gentle redirection during hallucinations Assessment & Plan (06/15/2023 6:06 AM EDT): Continue Donepezil 10mg and Memantine 10mg daily Son is [employer], needs assistance with paperwork for medical power or tax attorney Decided against medical guardianship due to fears he would become responsible for debts of his father Continue day/night cycles Continue gentle redirection during hallucinations Assessment & Plan (01/25/2023 1:02 PM EST): Continue Donepezil 10mg Son is PAINT BR[employer] MAK[employer] and medical power or tax attorney Atrial fibrillation 01/22/2023 Assessment & Plan [...] Encounters Date Type Department Care Team Description 01/08/2025 Refill [facility] [address] [place] [phone] Kathy Villafana MD 01/07/2025 Telephone [facility] [address] [place] [address] Ktahy Villafana MD New Med Request 01/06/2025 Orders Only GENERIC EXTERNAL DATA DEPARTMENT Provider, Generic External Data 01/02/2025 Telephone [facility] [address] [place] [address] Kathy Villafana MD Lab Orders 01/02/[address] [address] Kathy Villafana MD Durable Medical Equipment 12/16/2024 9:15 AM EST Office Visit [address] [address] Kathy Villafana MD Chronic renal disease, stage IV (CMS/HCC) (Primary Dx); 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 ) 12/03/2024 Telephone [facility] [address] [place] [phone] Kathy Villafana MD Hospital Follow-up 12/02/2024 Refill [facility] [address] [place] [address] Kathy Villafana MD Other hyperlipidemia 11/25/2024 Orders Only GENERIC EXTERNAL DATA DEPARTMENT Provider, Generic External Data 11/17/2024 Telephone [facility] [address] [place] [address] Eliza Field RNvalue stream leader 10/17/2024 Refill [facility] [address] [place] [address] Yazmin Thomas FNP 10/15/2024 Refill [facility] [address] [place] [address] Kathy Villafana MD 10/12/2024 Refill [facility] [address] [place] [address] Kathy Villafana MD from Last 3 Months [...] is your housing situation today? I have rahmerna vinson 02/20/[address] you [...] Dental X-Ray: [facility] 05/22/2024 05/21/2023 COVID-19 Vaccine ( - season) 2024 12/21/2021 Influenza Vaccine (#1) 2024 Diabetes: Hemoglobin A1C 12/23/2024 024, 07/10/2024, 02/20/2024, Additional history exists Depression Screening 02/19/2025 02/20/2024, 02/20/20 24 Diabetes: Foot Exam 02/19/2025 02/20/2024 Lipid Panel 02/19/2025 02/20/2024, 09/28/2021 SDOH Screening 02/19/2025 02/20/2024 Eye Exam 08/29/2025 08/29/2024, 02/2024, 08/29/2024, Additional history exists Tobacco Screening [...] Diagnosis Comments XR CHEST 1 VIEW Routine 01/06/2025 4:13 PM EST VENOUS BLOOD GAS Routine 01/06/2025 3:44 PM EST B TYPE NATRIURETIC PEPTIDE (BNP) Routine 01/06/2025 3:40 PM EST BASIC METABOLIC PANEL Routine 01/06/2025 3:40 PM EST CBC WITH AUTO DIFFERENTIAL Routine 01/06/2025 3:40 PM EST SARS COV2/INFLUENZA A/B AND RSV RNA QL NAAT Routine 01/06/2025 3:40 PM EST XR CHEST [...] with long-term current use of insulin (CMS/HCC) INTRAORAL - COMPLETE SERIES OF RADIOGRAPHIC IMAGES Routine 05/21/2023 2:30 PM EDT PERIODIC ORAL EVALUATION - ESTABLISHED PATIENT Routine 05/21/2023 2:30 PM EDT from Last 3 Months or Most Recently Relevant to Health Maintenance Results * XR Chest 1 View (01/06/2025 4:13 PM EST) Only the most recent of2 resultswithin the time period is included. Anatomical Region Laterality Modality Chest Radiographic Agueda ging 01/06/2025 4:13 PM EST Narrative 01/06/2025 4:31 PM EST ? [facility] ?[address] ?[place] [address] ?XRay Report ? Signed ? Patient: Nilo Adriane,Dayton A ?MR#: ?? [id number] ? : 1945 ?Acct:[id number] ? Age/Sex: 79 / M ?ADM Date: //25 ? Loc: HO.ED ? Attending Dr: ? Ordering Physician: Be Shen MD ?? Date of Service: 01/06/25 ?? Procedure(s): XR chest 1V ?? Accession Number(s): [id number] ? cc: Kathy Villafana; Be Shen MD ? EXAMINATION: ?? XR CHEST ? CLINICAL INFORMATION: ?? dyspnea ? COMPARISON: ?? 12/24/2024. ? TECHNIQUE: ?? Frontal view of the chest was obtained. ? FINDINGS: ?? There is leftward rotation. ? There is cardiac enlargement. ? There is moderate interstitial pulmonary edema, with layering small to ?? moderate-sized effusions and bibasilar airspace subluxations, ?? presumably atelectasis. Pneumonia is not excluded. ? XR/XR chest 1V ?? IMPRESSION: ?? Cardiomegaly, CHF with interstitial edema and bilateral small to ?? moderate layering effusions with underlying parenchymal consolidations. ?? Examination is quite similar to the previous. ? Electronically signed by: ??Shane Griffith MD ??01/06/2025 04:29 PM EST RP ? Dictated By: ?Shane Griffith MD ? Signed By: ?<Electronically signed by Shane Griffith MD in OV> ?01/06/25 1629 ? DD/ 1613 ? TD/TT: 01/06/25 1622 ? Grinder Operator External Tool: ? Procedure Note Magdiel Luna - 01/06/2025 [place] [address] XRay Report Signed Patient: Dayton Oquendo [facility]#: [id number] : 5Acct:[id number] Age/Sex: 79 / MADM Date: 01/06/25 Loc: HO.ED Attending Dr: Ordering Physician: Be Shen MD Date of Service: 01/06/25 Procedure(s): XR chest 1V Accession Number(s): [id number] cc: Kathy Villafana; Be Shen MD EXAMINATION: XR CHEST CLINICAL INFORMATION: dyspnea COMPARISON: 12/24/2024. TECHNIQUE: Frontal view of the chest was obtained. FINDINGS: There is leftward rotation. There is cardiac enlargement. There is moderate interstitial pulmonary edema, with layering small to moderate-sized effusions and bibasilar airspace subluxations, presumably atelectasis. Pneumonia is not excluded. XR/XR chest 1V IMPRESSION: Cardiomegaly, CHF with interstitial edema and bilateral small to moderate layering effusions with underlying parenchymal consolidations. Examination is quite similar to the previous. Electronically signed by: Shane Griffith MD 01/06/2025 04:29 PM EST Dictated By: Shane Griffith MD Signed By: <Electronically signed by Shane Griffith MD in OV> 01/06/25 1629 DD/ 1613 TD/TT: 01/06/25 1622 Grinder Operator External Tool: [facility] External Provider IMG XR PROCEDURES Final Result * (ABNORMAL) VENOUS BLOOD GAS (01/06/2025 3:44 PM EST) Only the most recent of2 resultswithin the time period is included. VBG pH 7.50(H) 7.32 - 7.43 [facility] Comment:METER #: [id number] additional_comment: Myrondj VBG PCO2 43 mmHg [facility] Comment:METER #: [id number] additional_comment: Lorenzoelgabrielj VBG PO2 149 mmHg [facility] Comment:METER #: [id number] additional_comment: Brenden VBG Base Excess 10.1 mmol/L [facility] Comment:METER #: [id number] additional_comment: Lorenzoelgadj VBG HCO3 34(H) 22 - 26 mmol/L [facility] Comment:METER #: [id number] additional_comment: Yemigadj O2 Sat, Cas 99.0 % [facility] Comment:METER #: [id number] additional_comment: Yemigadj 01/06/2025 3:44 PM EST 01/06/2025 3:49 PM EST Generic External Data Provider LAB BLOOD ORDERAB LES Final Result [facility] [address] [place] [phone] * SARS-CoV-2 RNA, Influenza A/B, and RSV RNA, Ql NAAT (01/06/2025 3:40 PM EST) Only the most recent of2 resultswithin the time period is included. Pathologist [facility] Influenza A PCR NEGATIVE Negative [facility] Influenza B PCR NEGATIVE Negative [facility] Resp Syncy Virus RNA Qual PCR NEGATIVE Negative [facility] SARS COV2 PCR NEGATIVE Negative [facility] Comment:All test results mus t [...] use by authorized laboratories.Testing performed on the [employer] GeneXpert utilizingreal-time RT-PCR.All SARS CoV2 and positive influenza A/B results arereported to [facility]. 01/06/2025 3:40 PM EST 01/06/2025 3:43 PM EST Generic External Data Provider LAB MICROBIOLOGY - GENERAL ORDERABLES Final Result Performing Organization Address [facility] de Phone Number [facility] [address] [place] [phone] * (ABNORMAL) CBC auto differential (01/06/2025 3:40 PM EST) Only the most recent of2 resultswithin the time period is included. Pathologist [facility] White Blood Count 9.1 4.8 - 10.8 X10*3/uL [facility] Red Blood Count 3.42(L) 4.60 - 5.80 X10*6/uL [facility] Hemoglobin 10.2(L) 14.0 - 18.0 g/dl [facility] Hematocrit 33.1(L) 42.0 - 52.0 % [facility] Mean Corpuscular Volume 96.8 80.0 - 98.0 fL [facility] Mean Corpuscular Hemoglobin 29.8 27.0 - 33.0 pg [facility] Mean Corpuscular HGB Conc 30.8(L) 31.0 - 36.0 g/dl [facility] Red Cell Distribution Width 15.7 11.0 - 16.0 % [facility] Platelet Count 180 160 - 400 X10*3/uL [facility] Mean Platelet Volume 12.1 9.4 - 12.4 fL [facility] Neutrophils Percent Auto 85.2(H) 45 - 73 % [facility] Imm Gran Pct Auto 0.3 0.0 - 0.4 % [facility] Lymphocytes Percent Auto 7.4(L) 20 - 40 % [facility] Monocytes Percent Auto 5.9 2 - 11 % [facility] Eosinophils Percent Auto 1.0 0 - 4 % [facility] Basophils Percent Auto 0.2 0 - 2 % [facility] NRBC Pct Auto 0.0 0.0 - 0.2 /100WBC [facility] Neutrophils Absolute Auto 7.8 2.0 - 8.3 x10*3/uL [facility] Imm Gran Abs Auto 0.03 0.00 - 0.03 X10*3/uL [facility] Lymphocytes Absolute Auto 0.7(L) 1.2 - 4.9 X10*3/uL [facility] Monocytes Absolute Auto 0.5 0.1 - 1.2 X10*3/uL [facility] Eosinophils Absolute Auto 0.1 0.0 - 0.4 X10*3/uL [facility] Basophils Absolute Auto 0.0 0.0 - 0.2 X10*3/uL [facility] NRBC Abs Auto 0.000 0.0 - 0.012 X10*3/uL [facility] 01/06/2025 3:40 PM EST 01/06/2025 3:43 PM EST Generic External Data Provider LAB BLOOD ORDERAB LES Final Result Performing Organization Address [facility] de Phone Number [facility] [address] [place] [phone] * (ABNORMAL) B Type Natriuretic Peptide (BNP) (01/06/2025 3:40 PM EST) Only the most recent of2 resultswithin the time period is included. [facility] B Type Natriuretic Peptide 430(H) <100 pg/mL [facility] Comment:For those patients w ho are being treated with Natrecor(nesiritide, recombinant BNP), BNP testing should beperformed at least two hours post treatment in order toensure that only endogenous levels of BNP are detected. 01/06/2025 3:40 PM EST 01/06/2025 3:43 PM EST [employer] External Data Provider LAB BLOOD ORDERAB LES Final Result Performing Organization Address [facility] de Phone Number [facility] [address] [place] [phone] * (ABNORMAL) Basic Metabolic Panel (01/06/2025 3:40 PM EST) Only the most recent of2 resultswithin the time period is included. Pathologist [facility] Sodium 139 135 - 145 mmol/L [facility] Potassium 5.6(H) 3.3 - 5.1 mmol/L [facility] Comment:Slight Hemolysis.Int erpret result with caution. Chloride 102 96 - 108 mmol/L [facility] Carbon Dioxide 28 22 - 29 mmol/L [facility] Anion Gap 15 12 - 20 [facility] Urea Nitrogen (BUN) 30(H) 9 - 16 mg/dL [facility] Creatinine, Serum 1.85(H) 0.5 - 1.4 mg/dL [facility] Creatinine Clr Calc Pharmacy TNP [facility] Comment:Unable to calculate eCrCL; all parameters not provided. Estimated Glomerular Filt Rate 35 [facility] Comment:Chronic Kidney Disea se: Estimated GFR < 60 mL/min/1.25b0Nxbutw Kidney Disease: Estimated GFR < 15 mL/min/1.73m2 Glucose 323(H) 60 - 115 mg/dL [facility] Calcium 8.8 8.4 - 10.2 mg/dL [facility] 01/06/2025 3:40 PM EST 01/06/2025 3:43 PM EST Generic External Data Provider LAB BLOOD ORDERAB LES Final Result Performing Organization Address [facility] Co de Phone Number [facility] [address] [place] [phone] * High Sensitivity Troponin I (11/25/2024 5:03 PM EST) TROPONIN I HIGH SENSITIVITY 2.8 <3.5 - 35.0 ng/L [facility] Comment:The Patel high sens itivity Troponin-I results should beused in conjunction with other diagnostic information suchas ECG, clinical observations and information, and patientsymptoms to aid in the diagnosis of [place]. 11/25/2024 5:03 PM EST 11/25/2024 5:07 PM EST Generic External Data Provider LAB BLOOD ORDERAB LES Final Result Performing Organization Address [facility] Co de Phone Number [facility] [address] [place] [phone] * (ABNORMAL) Glucose, Whole Blood (11/25/2024 3:13 PM EST) Glucose, Whole Blood 328(H) 60 - 115 mg/dL [facility] Comment:METER #: [id number] 11/25/2024 3:13 PM EST 11/25/2024 3:17 PM EST Generic External Data Provider LAB BLOOD ORDERAB LES Final Result Performing Organization Address [facility]/State/ZIP Co de Phone Number [facility] [address] [place] [phone] * XR Chest 2 Views (11/25/2024 10:15 AM EST) Anatomical Region Laterality Modality Chest Radiographic Agueda ging 11/25/2024 10:1 5 AM EST Narrative 11/25/2024 11:47 AM EST ? [facility] ?[address] ?[place] [address] ?XRay Report ? Signed ? Patient: Dayton Oquendo ?MR#: ?? [id number] ? : 1945 ?Acct:[id number] ? Age/Sex: 79 / M ?ADM Date: 11/25/24 ? Loc: HO.ED ? Attending Dr: ? Ordering Physician: Generic ED Physician ?? Date of Service: 11/25/24 ?? Procedure(s): XR chest 2V ?? Accession Number(s): [id number] ? cc: Generic ED Physician; Kathy Villafana [...] DD/ 1015 ? TD/TT: 11/25/24 1059 ? Grinder Operator External Tool: MSM ? Procedure Note Jeremy, Magdiel - 11/25/2024 [facility] [address] [place] [address] XRay Report Signed Patient: Dayton Oquendo [facility]#: [id number] : 5Acct:[id number] Age/Sex: 79 / MADM Date: 11/25/24 Loc: HO.ED Attending Dr: Ordering Physician: Generic ED Physician Date of Service: 11/25/24 Procedure(s): XR chest 2V Accession Number(s): [id number] cc: Generic ED Physician; Kathy Villafana EXAMINATION: [...] by: Demond Barajas MD 11/25/2024 11:44 AM [facility] Dictated By: Demond Barajas MD Signed By: <Electronically signed by Demond Barajas MD in OV> 11/25/24 1144 DD/ 1015 TD/TT: 11/25/24 1059 Grinder Operator External Tool: SHAHNAZ [facility] External Provider IMG XR PROCEDURES Edited Result - Final * (ABNORMAL) POCT HGB A1C (09/22/2024 2:39 PM EDT) Hemoglobin A1C 8.8(A) 4.0 - 6.0 % QC Media Lot # [id number] Lot# Expiration Date ,996 Blood 09/22/2024 2:39 PM EDT Kathy Villafana MD POINT OF CARE TEST ENTER/EDIT ORDERABLES Final Result * Hepatitis C Antibody with Reflex to HCV, RNA, Quantitative, Real-Time PCR (02/20/2024 3:00 PM EDT) Hepatitis C Antibody Nonreactive Nonreactive [facility] Comment:Antibodies to HCV no t detected; does not exclude early acuteHCV infection. Blood Venous blood specimen / Unknown 02/20/2024 3:00 PM EDT 02/20/2024 4:04 PM EDT Kathy Villafana MD LAB BLOOD ORDERABLES Final Res ult Performing Organization Address [facility] de Phone Number [facility] [address] [place] [phone] * (ABNORMAL) Lipid Panel, Standard (02/20/2024 3:00 PM EDT) Triglycerides 186(H) <150 mg/dL [facility] Comment:Desirable Triglyceri de: less than 150 mg/dLBorderline High Triglyceride 150-199 mg/dLHigh Triglyceride: 200-499 mg/dLVery High Triglyceride: greater than or equal to 5OO mg/dL Cholesterol 159 <200 mg/dL [facility] Comment:Desirable Cholestero l: less than 200 mg/dLBorderline High Cholesterol: 200-239 mg/dLHigh Cholesterol: greater than 239 mg/dL LDL Cholesterol Calculated 78 <100 mg/dL [facility] Comment:Desirable LDL: less than 100 mg/dLNear Optimal/Above Optimal LDL: 110- 129 mg/dLBorderline High LDL: 130-159 mg/dLHigh LDL: 160-189 mg/dLVery High LDL: greater than or equal to 190 mg/dL HDL Cholesterol 44 >40 mg/dL [facility] Comment:Desirable HDL: great er than 40 mg/dL Note: This HDL assay may give artificially low results in patients with liver disease. Blood Venous blood specimen / Unknown 02/20/2024 3:00 PM EDT 02/20/2024 4:04 PM EDT us Kathy Villafana MD LAB BLOOD ORDERABLES Final Res ult Performing Organization Address [facility] Co de Phone Number [facility] [address] [place] [phone] from Last 3 Months or Most Recently Relevant to Health Maintenance Insurance [facility] Advance Directives Documents on File Type Date Recorded Patient Spray Technician Expl anation Advance Directives and Livin g Will 06/28/2023 Health Care Proxy Care Teams Director Internal Control Relationship Specialty Start Date End Date Kathy Villafana MD [address] [place] [address] PCP - General Family Medicine 08/05/21 [facility] 12/04/24
--- OUTSIDE RECORDS SUMMARY | 2025-01-08 08:44 | XMS_ITS | Encounter Summary ---
Author Organization [employer] Address 75 [facility] 7t [place] [address] Care Team Providers Care Fire Crew Worker Name Role Phone Kathy Villafana MD Primary Care Provider [phone] Encounter Details Date Type Department Care Team [...] BLOOD GAS Routine 01/06/2025 3:44 PM EST SARS COV2/INFLUENZA A/B AND RSV RNA QL NAAT Routine 01/06/2025 3:40 PM EST CBC WITH AUTO DIFFERENTIAL Routine 01/06/2025 3:40 PM EST B TYPE NATRIURETIC PEPTIDE (BNP) Routine 01/06/2025 3:40 PM EST BASIC METABOLIC PANEL Routine 01/06/2025 3:40 PM EST documented in this encounter Results * XR Chest 1 View (01/06/2025 4:13 PM EST) Anatomical Region Laterality Modality Chest Radiographic Agueda ging 01/06/2025 4:13 PM EST Narrative 01/06/2025 4:31 PM EST ? [facility] ?[address] ?[place] [address] ?XRay Report ? Signed ? Patient: Dayton Oquendo A ?MR#: ?? [id number] ? : 1945 ?Acct:[id number] ? Age/Sex: 79 / M ?ADM Date: 02/11/25 ? Loc: HO.ED ? Attending Dr: ? Ordering Physician: Be Shen MD ?? Date of Service: 01/06/25 ?? Procedure(s): XR chest 1V ?? Accession Number(s): [id number] ? cc: Kathy Villafana; Be Shen MD [...] DD/ 1613 ? TD/TT: 01/06/25 1622 ? Bullet Maker: ? Procedure Note Donshelbyter, Image - 01/06/2025 [place] [id number] XRay Report Signed Patient: Dayton Oquendo AMR#: [id number] : 5Acct:[id number] Age/Sex: 79 / MADM Date: 01/06/25 Loc: HO.ED Attending Dr: Ordering Physician: Be Shen MD Date of Service: 01/06/25 Procedure(s): XR chest 1V Accession Number(s): [id number] cc: Kathy Villafana; Be Shen MD EXAMINATION: [...] 01/06/25 1629 DD/ 1613 TD/TT: 01/06/25 1622 Bullet Maker: [facility] External Provider IMG XR PROCEDURES Final Result * (ABNORMAL) VENOUS BLOOD GAS (01/06/2025 3:44 PM EST) VBG pH 7.50(H) 7.32 - 7.43 [facility] Comment:METER #: [id number] additional_comment: CbDelgadj VBG PCO2 43 mmHg [facility] Comment:METER #: [id number] additional_comment: CbDelgadj VBG PO2 149 mmHg [facility] Comment:METER #: [id number] additional_comment: CbDelgadj VBG Base Excess 10.1 mmol/L [facility] Comment:METER #: [id number] additional_comment: CbDelgadj VBG HCO3 34(H) 22 - 26 mmol/L [facility] Comment:METER #: [id number] additional_comment: CbDelgadj O2 Sat, Cas 99.0 % [facility] Comment:METER #: [id number] additional_comment: CbDelgadj 01/06/2025 3:44 PM EST 01/06/2025 3:49 PM EST Generic External Data Provider LAB BLOOD ORDERAB LES Final Result [facility] [address] [place] [phone] * SARS-CoV-2 RNA, Influenza A/B, and RSV RNA, Ql NAAT (01/06/2025 3:40 PM EST) Influenza A PCR NEGATIVE Negative [facility] Influenza B PCR NEGATIVE Negative [facility] Resp Syncy Virus RNA Qual PCR NEGATIVE Negative [facility] SARS COV2 PCR NEGATIVE Negative [facility] Comment:All test results mus t [...] use by authorized laboratories.Testing performed on the [employer] GeneXpert utilizingreal-time RT-PCR.All SARS CoV2 and positive influenza A/B results arereported to [facility]. 01/06/2025 3:40 PM EST 01/06/2025 3:43 PM EST us Generic External Data Provider LAB MICROBIOLOGY - GENERAL ORDERABLES Final Result Performing Organization Address [facility]/ZIP Co de Phone Number [facility] [address] [place] [phone] * (ABNORMAL) B Type Natriuretic Peptide (BNP) (01/06/2025 3:40 PM EST) Pathologist [facility] B Type Natriuretic Peptide 430(H) <100 pg/mL [facility] Comment:For those patients w ho are being treated with Natrecor(nesiritide, recombinant BNP), BNP testing should beperformed at least two hours post treatment in order toensure that only endogenous levels of BNP are detected. 01/06/2025 3:40 PM EST 01/06/2025 3:43 PM EST Generic External Data Provider LAB BLOOD ORDERAB LES Final Result Performing Organization Address City/[facility]/ZIP Co de Phone Number [facility] [address] [place] [address] [phone] * (ABNORMAL) Basic Metabolic Panel (01/06/2025 3:40 PM EST) [facility] Sodium 139 135 - 145 mmol/L [facility] Potassium 5.6(H) 3.3 - 5.1 mmol/L [facility] Comment:Slight Hemolysis.Int erpret result with caution. Chloride 102 96 - 108 mmol/L [facility] Carbon Dioxide 28 22 - 29 mmol/L [facility] Anion Gap 15 12 - 20 [facility] Urea Nitrogen (BUN) 30(H) 9 - 16 mg/dL [facility] Creatinine, Serum 1.85(H) 0.5 - 1.4 mg/dL [facility] Creatinine Clr Calc Pharmacy TNP [facility] Comment:Unable to calculate eCrCL; all parameters not provided. Estimated Glomerular Filt Rate 35 [facility] Comment:Chronic Kidney Disea se: Estimated GFR < 60 mL/min/1.58k3Yodnea Kidney Disease: Estimated GFR < 15 mL/min/1.73m2 Glucose 323(H) 60 - 115 mg/dL [facility] Calcium 8.8 8.4 - 10.2 mg/dL [facility] 01/06/2025 3:40 PM EST 01/06/2025 3:43 PM EST us Generic External Data Provider LAB BLOOD ORDERAB LES Final Result [facility] [address] [place] [address] [phone] * (ABNORMAL) CBC auto differential (01/06/2025 3:40 PM EST) [facility] White Blood Count 9.1 4.8 - 10.8 X10*3/uL [facility] Red Blood Count 3.42(L) 4.60 - 5.80 X10*6/uL [facility] Hemoglobin 10.2(L) 14.0 - 18.0 g/dl [facility] Hematocrit 33.1(L) 42.0 - 52.0 % [facility] Mean Corpuscular Volume 96.8 80.0 - 98.0 fL [facility] Mean Corpuscular Hemoglobin 29.8 27.0 - 33.0 pg [facility] Mean Corpuscular HGB Conc 30.8(L) 31.0 - 36.0 g/dl [facility] Red Cell Distribution Width 15.7 11.0 - 16.0 % [facility] Platelet Count 180 160 - 400 X10*3/uL [facility] Mean Platelet Volume 12.1 9.4 - 12.4 fL [facility] Neutrophils Percent Auto 85.2(H) 45 - 73 % [facility] Imm Gran Pct Auto 0.3 0.0 - 0.4 % [facility] Lymphocytes Percent Auto 7.4(L) 20 - 40 % [facility] Monocytes Percent Auto 5.9 2 - 11 % [facility] Eosinophils Percent Auto 1.0 0 - 4 % [facility] Basophils Percent Auto 0.2 0 - 2 % [facility] NRBC Pct Auto 0.0 0.0 - 0.2 /100WBC [facility] Neutrophils Absolute Auto 7.8 2.0 - 8.3 x10*3/uL [facility] Imm Gran Abs Auto 0.03 0.00 - 0.03 X10*3/uL [facility] Lymphocytes Absolute Auto 0.7(L) 1.2 - 4.9 X10*3/uL [facility] Monocytes Absolute Auto 0.5 0.1 - 1.2 X10*3/uL [facility] Eosinophils Absolute Auto 0.1 0.0 - 0.4 X10*3/uL [facility] Basophils Absolute Auto 0.0 0.0 - 0.2 X10*3/uL [facility] NRBC Abs Auto 0.000 0.0 - 0.012 X10*3/uL [facility] 01/06/2025 3:40 PM EST 01/06/2025 3:43 PM EST us Generic External Data Provider LAB BLOOD ORDERAB LES Final Result [facility] [address] [place] [phone] [phone] documented in this encounter Visit Diagnoses Not on filedocumented in this encounter Additional Health Concerns Assessment Noted Time PHQ-9 Depression Total Score: 0 02/20/20 24 2:34 PM EDT documented as of this encounter Care Teams Fire Crew Worker Relationship Specialty Start Date End Date Kathy Villafana MD [address] [place] [address] PCP - General Family Medicine 08/05/21 [facility] 12/04/24 documented as of this encounter
--- OUTSIDE RECORDS SUMMARY | 2025-01-08 08:44 | XMS_ITS | Encounter Summary ---
Author Organization [employer] Address [address] [facility] [address] 7t [place] [address] Care Team Providers Care Nuclear Powerplant Mechanic Name Role Phone Kathy Villafana MD Primary Care Provider [phone] Encounter Details Date Type Department Care Team [...] documented as of this encounter Care Teams Nuclear Powerplant Mechanic Relationship Specialty Start Date End Date Kathy Villafana MD [address] [place] [phone] PCP - General Family Medicine 08/05/21 [facility] 12/04/24 documented as of this encounter
--- OUTSIDE RECORDS SUMMARY | 2025-01-08 08:44 | XMS_ITS | Encounter Summary ---
Author Organization [employer] Address 75 [facility] 7t [place] [address] Care Team Providers Care Supervisor Prep Name Role Phone Kathy Villafana MD Primary Care Provider [phone] Reason for Visit * Reason Comments Med Refill Encounter Details Date Type Department Care Team (Late st Contact Info) Description 12/01/2022 Refill [facility] [address] [place], [place] [phone] Kathy Villafana MD [address] [place], [place] [phone] Type 2 diabetes mellitus with hyperglycemia, with long-term current use of insulin (CMS/[facility]) Social History Tobacco Use Types Packs/Day Years [...] (CMS/HCC) documented in this encounter Care Teams Supervisor Prep Relationship Specialty Start Date End Date Kathy Villafana MD [address] [place], [place] [phone] PCP - General Family Medicine 08/05/21 [facility] 12/04/24 documented as of this encounter
--- OUTSIDE RECORDS SUMMARY | 2025-01-08 08:44 | XMS_ITS | Encounter Summary ---
Author Organization [employer] Address [address] [facility] [address] 7t [place] [address] Care Team Providers Care Clerk Travel Reservations Name Role Phone Kathy Villafana MD Primary Care Provider [phone] Reason for Visit * Reason Onset Date Comments Durable Medical Equipment 01/02/2025 Encounter Details Date Type Department Care Team ([facility] st Contact Info) Description 01/02/2025 Telephone [facility] MEDICINE [address] [place], [place] [phone] Kathy Villafana MD [address] [place], [place] [phone] Durable Medical Equipment Social History Tobacco Use [...] documented as of this encounter Care Teams Clerk Travel Reservations Relationship Specialty Start Date End Date Kathy Villafana MD [address] [place] [address] PCP - General Family Medicine 08/05/21 [facility] 12/04/24 documented as of this encounter
--- OUTSIDE RECORDS SUMMARY | 2025-01-08 08:44 | XMS_ITS | Encounter Summary ---
Author Organization [employer] Address [address] [facility] [address] 7t [place] [address] Care Team Providers Care Diagnostic Medical Sonographer Name Role Phone Kathy Villafana MD Primary Care Provider [phone] Reason for Visit * Reason Onset Date Comments Hospital Follow-up 12/03/2024 Encounter Details Date Type Department Care Team ([facility] st Contact Info) Description 12/03/[address] [facility] MEDICINE [address] [place], [place] [phone] Kathy Villafana MD [address] [place], [place] [phone] Hospital Follow-up Social History Tobacco Use Types [...] from pt requesting a HDF appt. [facility]: [facility] Date of admission: 11/25/2024 Discharge date: 12/03/2024 Diagnosed: Heart Attack *Send message to [facility] Clinical Care Coordinators documented in this encounter Plan of Treatment Not on file documented as of this encounter Visit Diagnoses Not on filedocumented in this encounter Additional Health Concerns Assessment Noted Time PHQ-9 Depression Total Score: 0 02/20/20 24 2:34 PM EDT documented as of this encounter Care Teams Diagnostic Medical Sonographer Relationship Specialty Start Date End Date Kathy Villafana MD [address] [place] [address] PCP - General Family Medicine 08/05/21 [facility] 12/04/24 documented as of this encounter
--- OUTSIDE RECORDS SUMMARY | 2025-01-08 08:45 | XMS_ITS | Encounter Summary ---
Author Organization [employer] Address [address] [facility] [address] [place] [address] Care Team Providers Care Head Strength And Conditioning Coach Name Role Phone Kathy Villafana MD Primary Care Provider [phone] Reason for Visit * Reason Comments Med Refill Encounter Details Date Type Department Care Team ([facility] st Contact Info) Description 11/18/2023 Refill [facility] MEDICINE [address] [place], [place] [phone] Kathy Villafana MD [address] [place], [place] [phone] Type 2 diabetes mellitus with hyperglycemia, with long-term current use of insulin ([facility]) Social History Tobacco Use Types [...] hyperglycemia, with long-term current use of insulin ([facility]) documented in this encounter Additional Health Concerns Assessment Noted Time PHQ-9 Depression Total Score: 0 01/22/20 23 3:42 PM EST documented as of this encounter Care Teams Head Strength And Conditioning Coach Relationship Specialty Start Date End Date Kathy Villafana MD [address] [place] [phone] PCP - General Family Medicine 08/05/21 [facility] 12/04/24 documented as of this encounter
--- OUTSIDE RECORDS SUMMARY | 2025-01-08 08:45 | XMS_ITS | Encounter Summary ---
Author Organization [facility] Address [address] [place] [address] Phone Care Team Providers Care Divorce Mediator Name Role Phone Kathy Villafana MD Primary Care Provider [phone] Reason for Visit * Reason Comments Med Refill Encounter Details Date Type Department Care Team (Late st Contact Info) Description 07/14/2022 Refill [facility] [address] [place] [phone] Salty Kim, DO [address] [place] [address] Social History Tobacco Use Types Packs/Day Years [...] on filedocumented in this encounter Care Teams Divorce Mediator Relationship Specialty Start Date End Date Kathy Villafana MD PCP - General Shactor Helper 10/13/21 documented as of this encounter
--- OUTSIDE RECORDS SUMMARY | 2025-01-08 08:45 | XMS_ITS | Encounter Summary ---
Author Organization [facility] Address [address] [facility] 7t [place] [address] Care Team Providers Care Hydrator Operator Name Role Phone Kathy Villafana MD Primary Care Provider [phone] Reason for Visit * Reason Comments Med Refill Encounter Details Date Type Department Care Team ([facility] st Contact Info) Description 08/18/2023 Refill [facility] MEDICINE [address] [place], [place] [phone] Kathy Villafana MD [address] [place], [place] [phone] Social History Tobacco Use Types Packs/Day Years [...] documented as of this encounter Care Teams Hydrator Operator Relationship Specialty Start Date End Date Kathy Villafana MD [address] [place], [place] [phone] PCP - General Family Medicine 08/05/21 [facility] 12/04/24 documented as of this encounter
--- OUTSIDE RECORDS SUMMARY | 2025-01-08 08:45 | XMS_ITS | Encounter Summary ---
Author Organization [employer] Address [address] [facility] 7t [place] [address] Care Team Providers Care Salvage Inspector Wood Parts Name Role Phone Kathy Villafana MD Primary Care Provider [phone] Encounter Details Date Type Department Care Team (Late st Contact Info) Description 11/17/2022 Orders Only [facility] MED & PEDS [address] [place] [address] Mary Ann Skaggs LPN Social History Tobacco [...] on filedocumented in this encounter Care Teams Salvage Inspector Wood Parts Relationship Specialty Start Date End Date Kathy Villafana MD [address] [place] [phone] PCP - General Family Medicine 08/05/21 [facility] 12/04/24 documented as of this encounter
--- OUTSIDE RECORDS SUMMARY | 2025-01-08 08:45 | XMS_ITS | Encounter Summary ---
Author Organization [employer] Address [address] [facility] [address] [place] [address] Care Team Providers Care Hydrodynamics Teacher Name Role Phone Kathy Villafana MD Primary Care Provider [phone] Reason for Visit * Reason Comments Med Refill Encounter Details Date Type Department Care Team ([facility] st Contact Info) Description 11/28/2023 Refill [facility] MEDICINE [address] [place], [place] [phone] Kathy Villafana MD [address] [place], [place] [phone] Social History Tobacco Use Types Packs/Day Years [...] documented as of this encounter Care Teams Hydrodynamics Teacher Relationship Specialty Start Date End Date Kathy Villafana MD [address] [place] [address] PCP - General Family Medicine 08/05/21 [facility] 12/04/24 documented as of this encounter
--- OUTSIDE RECORDS SUMMARY | 2025-01-08 08:45 | XMS_ITS | Clinical Summary ---
Author Organization [facility] Address [address] [address] Care Team Providers Care Parks And Recreation Worker Name Role Phone Kathy Villafana MD Primary Care Provider [phone] Medications pantoprazole (PROTONIX) 40 MG EC tablet [...] patient's age to complete this topic Insurance [facility] ([id number]) [place]ENJI AUGUSTINE [id number] [facility] ([id number]) [place] AUGUSTINE [id number] Care Teams Parks And Recreation Worker Relationship Specialty Start Date End Date Kathy Villafana MD PCP - General Director Records Management 10/13/21
--- OUTSIDE RECORDS SUMMARY | 2025-01-08 08:45 | XMS_ITS | Encounter Summary ---
Author Organization [employer] Address [address] [facility] [address] [place] [address] Care Team Providers Care Kiln Setter Name Role Phone Kathy Villafana MD Primary Care Provider [phone] Encounter Details Date Type Department Care Team (Latest Contact Info) Description 12/16/2024 9:15 AM EST Office Visit [facility] MEDICINE [address] [place], [place] [phone] Kathy Villafana MD [address] [place], [place] [phone] Chronic renal disease, stage IV (CMS/HCC) (Primary [...] Cough remains from RSV. Will send [employer]. Need to check BMP to evaluate ability [...] daily Background Pharmacist Shama Winter, LenyD and foreign exchange student coordinator Regulo Mitchell contacted patient to discuss upcoming hospital discharge visit for NSTEMI, CHF : Future Appointments Date Time Provider Department Center 12/16/2024 9:15 AM Kathy Villafana MD MEDICINE [facility] Hospital Course and Medication Reconciliation [facility] (11/27/24-12/03/24) Patient presented for evaluation of cough [...] mg once daily Discontinued: none Preferred Pharmacy: [facility] - [place], [place] - [address] [facility] 230 [facility] [phone] Medbox: Yes Date: 11/17/24 Patient Reported History [...] Patient Active Problem List Diagnosis Alzheimer's disease ([facility]/HCC) Atrial fibrillation ([facility]/HCC) Type 2 diabetes mellitus with diabetic neuropathy, unspecified ([facility]) Frequent fecal incontinence Gastroesophageal reflux disease History of non-ST elevation myocardial infarction (NSTEMI) Hyperlipidemia Right flank pain Type 2 diabetes mellitus ([facility]/HCC) Urinary incontinence CKD stage 3 secondary to diabetes (CMS/HCC) Generalized edema Hypertension Chronic periodontitis Seborrheic dermatitis Poor mobility Upper GI bleed Type 2 diabetes mellitus with diabetic chronic kidney disease ([facility]/HCC) Hospital discharge follow-up Sebaceous cyst Chronic midline low back pain without sciatica Obesity, morbid ([facility]/HCC) Chronic renal disease, stage IV (CMS/HCC) Past Surgical History: Procedure Laterality Date CATARACT EXTRACTION, BILATERAL No family history on file. Social History Social History Narrative Lives with son and fwftbfet-sw-sbt and two grandchildren ASSESSMENT/PLAN Problem List Items Addressed This Visit CKD stage 3 secondary to diabetes ([facility]/HCC) Chronic renal disease, stage IV ([facility]/HCC) - Primary Relevant Orders Basic [...] 28 DAYS, Disp: , Rfl: Continuous Glucose Circus Train Supervisor ([employer] Mc[place]ath) device, Scan sensor every 8 hours, Disp: 1 each, Rfl: 0 Continuous Glucose Sensor ([employer] 2 Sensor) [facility], Apply 1 sensor every 14 days, [...] Magnesium Citrate oral solution, leland botella completa may vez NEEDED FOR CONSTIPATION, Disp: , Rfl: [...] TWICE DAILY, Disp: 100 each, Rfl: 11 Kittitian Translation: Provided by [facility] staff member HANNA Da Silva documented in [...] as of this encounter Care Teams Kiln Setter Relationship Specialty Start Date End Date Kathy Villafana MD [address] [place] [phone] PCP - General Family Medicine 08/05/21 [facility] 12/04/24 documented as of this encounter
--- OUTSIDE RECORDS SUMMARY | 2025-01-08 08:45 | XMS_ITS | Encounter Summary ---
Author Organization [employer] Address [address] [facility] [address]t [place] [address] Care Team Providers Care Cargo Inspector Name Role Phone Kathy Villafana MD Primary Care Provider [phone] Encounter Details Date Type Department Care Team (Late st Contact Info) Description 09/24/2023 Abstract [facility] MEDICINE [address] [place], [place] [phone] Kathy Villafana MD [address] [place], [place] [phone] Social History Tobacco Use Types Packs/Day Years [...] documented as of this encounter Care Teams Cargo Inspector Relationship Specialty Start Date End Date Kathy Villafana MD [address] [place] [address] PCP - General Family Medicine 08/05/21 [facility] 12/04/24 documented as of this encounter
--- OUTSIDE RECORDS SUMMARY | 2025-01-08 08:45 | XMS_ITS | Encounter Summary ---
Author Organization [employer] Address 75 [facility] 7t [place] [address] Care Team Providers Care Environmental Maintenance Worker Name Role Phone Kathy Villafana MD Primary Care Provider [phone] Reason for Visit * Reason Onset Date Comments triage 12/06/2022 Encounter Details Date Type Department Care Team (Late st Contact Info) Description 12/06/2022 Telephone [facility] MEDICINE [address] [place], [place] [phone] Kathy Villafana MD [address] [place], [place] [phone] triage Social History Tobacco Use Types Packs/Day [...] LVM to return call to [facility] triage line. * Telephone Encounter - Abhishek Herman - 12/06/2022 2:25 PM EST Symptom: Constipation Outcome: Schedule an appointment to be seen within 24 hours Reason: No high acuity concerns reported by caller The caller accepted this outcome speaks austrian documented in this encounter Plan of Treatment Not on file documented as of this encounter Visit Diagnoses Not on filedocumented in this encounter Care Teams Environmental Maintenance Worker Relationship Specialty Start Date End Date Kathy Villafana MD [address] [place] [address] PCP - General Family Medicine 08/05/21 [facility] 12/04/24 documented as of this encounter
--- OUTSIDE RECORDS SUMMARY | 2025-01-08 08:45 | XMS_ITS | Encounter Summary ---
Author Organization [employer] Address [address] [place] [address] Care Team Providers Care Occupational Health Coordinator Name Role Phone Kathy Villafana MD Primary Care Provider [phone] Encounter Details Date Type Department Care Team (Late st Contact Info) Description 09/18/2023 Abstract [facility] MEDICINE [address] [place], [place] [phone] Kathy Villafana MD 230 [place], [place] [phone] Social History Tobacco Use Types Packs/Day Years [...] documented as of this encounter Care Teams Occupational Health Coordinator Relationship Specialty Start Date End Date Kathy Villafana MD [address] [place] [address] PCP - General Family Medicine 08/05/21 [facility] 12/04/24 documented as of this encounter
--- OUTSIDE RECORDS SUMMARY | 2025-01-08 08:45 | XMS_ITS | Encounter Summary ---
Author Organization [employer] Address [address] 7[address] [place] [address] Care Team Providers Care Life Insurance Underwriter Name Role Phone Kathy Villafana MD Primary Care Provider [phone] Encounter Details Date Type Department Care Team (Late st Contact Info) Description 11/14/2023 Orders Only [facility] MEDICINE 230 [place], [place] [phone] Kathy Villafana MD [address] [place], [place] [phone] Social History Tobacco Use Types Packs/Day Years [...] documented as of this encounter Care Teams Life Insurance Underwriter Relationship Specialty Start Date End Date Kathy Villafana MD [address] [place] [address] PCP - General Family Medicine 08/05/21 [facility] 12/04/24 documented as of this encounter
--- OUTSIDE RECORDS SUMMARY | 2025-01-08 08:45 | XMS_ITS | Encounter Summary ---
Author Organization [employer] Address [address] [place] [address] Care Team Providers Care Fish Roe Technician Name Role Phone Kathy Villafana MD Primary Care Provider [phone] Encounter Details Date Type Department Care Team (Late st Contact Info) Description 11/28/2023 Orders Only [facility] MEDICINE 230 [place], [place] [phone] Kathy Villafana MD 230 [place], [place] [phone] Social History Tobacco Use Types Packs/Day Years [...] documented as of this encounter Care Teams Fish Roe Technician Relationship Specialty Start Date End Date Kathy Villafana MD 230 [place] [address] PCP - General Family Medicine 08/05/21 [facility] 12/04/24 documented as of this encounter
--- OUTSIDE RECORDS SUMMARY | 2025-01-08 08:45 | XMS_ITS | Encounter Summary ---
Author Organization [employer] Address [address] [place] [address] Care Team Providers Care Rail Transportation Tabeler Name Role Phone Kathy Villafana MD Primary Care Provider [phone] Encounter Details Date Type Department Care Team (Late st Contact Info) Description 12/20/2023 Abstract [facility] MEDICINE 230 [place], [place] [phone] Kathy Villafana MD [address] [place], [place] [phone] Social History Tobacco Use Types Packs/Day Years [...] documented as of this encounter Care Teams Rail Transportation Tabeler Relationship Specialty Start Date End Date Kathy Villafana MD [address] [place] [address] PCP - General Family Medicine 08/05/21 [facility] 12/04/24 documented as of this encounter
--- OUTSIDE RECORDS SUMMARY | 2025-01-08 08:45 | XMS_ITS | Encounter Summary ---
Author Organization [employer] Address [address] [place] [address] Care Team Providers Care Transmission Line Engineer Name Role Phone Kathy Villafana MD Primary Care Provider [phone] Reason for Visit * Reason Onset Date Comments Appointment Request 01/24/2024 Encounter Details Date Type Department Care Team ([facility] st Contact Info) Description 01/24/2024 Telephone [facility]INE 230 [place], [place] [phone] Kathy Villafana MD 230 [place], [place] [phone] Appointment Request Social History Tobacco Use Types [...] to r/s follow up scheduled for 01/24/24. Fish Cutter unable to schedule due to 30 min appt. Appt has been cancelled. Please contact at [phone] documented in this encounter Plan of Treatment Not on file documented as of this encounter Visit Diagnoses Not on filedocumented in this encounter Additional Health Concerns Assessment Noted Time PHQ-9 Depression Total Score: 0 01/22/20 23 3:42 PM EST documented as of this encounter Care Teams Transmission Line Engineer Relationship Specialty Start Date End Date Kathy Villafana MD [address] [place] [address] PCP - General Family Medicine 08/05/21 [facility] 12/04/24 documented as of this encounter
--- OUTSIDE RECORDS SUMMARY | 2025-01-08 08:45 | XMS_ITS | Encounter Summary ---
Author Organization [employer] Address [address] 7t [place] [address] Care Team Providers Care Microbiology Manager Name Role Phone Kathy Villafana MD Primary Care Provider [phone] Encounter Details Date Type Department Care Team (Late st Contact Info) Description 12/09/2024 Refill [facility] MEDICINE [address] [place], [place] [phone] Shama Winter PharmD 230 [place], [place] [phone] Social History Tobacco Use Types Packs/Day Years [...] documented as of this encounter Care Teams Microbiology Manager Relationship Specialty Start Date End Date Kathy Villafana MD 230 [place] [address] PCP - General Family Medicine 08/05/21 [facility] 12/04/24 documented as of this encounter
--- OUTSIDE RECORDS SUMMARY | 2025-01-08 08:46 | XMS_ITS | Encounter Summary ---
Author Organization [employer] Address [address] 7[address] [place] [address] Care Team Providers Care Correctional Therapy Director Name Role Phone Kathy Villafana MD Primary Care Provider [phone] Reason for Visit * Reason Onset Date Comments New Med Request 01/07/2025 Encounter Details Date Type Department Care Team ([facility] st Contact Info) Description 01/07/2025 Telephone [facility] MEDICINE 230 [place], [place] [phone] Kathy Villafana MD 230 [place], [place] [phone] New Med Request Social History Tobacco Use Types Packs/Day [...] * Telephone Encounter - [employer] - 01/07/2025 4:23 PM EST Tc from Son requesting medication for nose as pt has oxygen and is peeling his nose as he feels discomfort and sometimes has little blood spot due to him wearing his oxygen. documented in this encounter Plan of Treatment Not on file documented as of this encounter Visit Diagnoses Not on filedocumented in this encounter Additional Health Concerns Assessment Noted Time PHQ-9 Depression Total Score: 0 02/20/20 24 2:34 PM EDT documented as of this encounter Care Teams Correctional Therapy Director Relationship Specialty Start Date End Date Kathy Villafana MD [address] [place] [address] PCP - General Family Medicine 08/05/21 [facility] 12/04/24 documented as of this encounter
--- OUTSIDE RECORDS SUMMARY | 2025-01-08 08:46 | XMS_ITS | Encounter Summary ---
Author Organization [employer] Address [address] [place] [address] Care Team Providers Care Work Measurement Engineer Name Role Phone Kathy Villafana MD Primary Care Provider [phone] Reason for Visit * Reason Comments Med Refill Encounter Details Date Type Department Care Team ([facility] st Contact Info) Description 01/08/2025 Refill [facility] MEDICINE 230 [place], [place] [phone] Kathy Villafana MD 230 [place] [address] Social History Tobacco Use Types Packs/Day Years [...] documented as of this encounter Care Teams Work Measurement Engineer Relationship Specialty Start Date End Date Kathy Villafana MD [address] [place] [address] PCP - General Family Medicine 08/05/21 [facility] 12/04/24 documented as of this encounter
[2025-01-08 09:43] LABS: Hematocrit 30.9 % (42.0-52.0); Hemoglobin 9.8 g/dl (14.0-18.0); Mean Corpuscular HGB Conc 31.7 g/dl (31.0-36.0); Mean Corpuscular Hemoglobin 30.2 pg (27.0-33.0); Mean Corpuscular Volume 95.4 fL (80.0-98.0); Mean Platelet Volume 11.6 fL (9.4-12.4); Platelet Count 170 X10*3/uL (160-400); Red Blood Count 3.24 X10*6/uL (4.60-5.80); Red Cell Distribution Width 15.7 % (11.0-16.0)
[2025-01-08 09:44] LABS: WBC ABN SCTR FOR CBC 1
[2025-01-08 09:45] LABS: Venous Blood Gas Refer to POC result
[2025-01-08 09:45] LABS: VBG Base Excess 12.6 mmol/L; VBG HCO3 40 mmol/L (22-26); VBG pCO2 73 mmHg; VBG pH 7.35 (7.32-7.43); VBG pO2 43 mmHg
[2025-01-08 09:49] LABS: INTERNATIONAL NORM RATIO 1.5 (0.9-1.1); Prothrombin Time 17.3 SEC (10.9-12.4)
[2025-01-08 09:52] LABS: Partial Thromboplastin Time 37.2 SEC (26.0-36.8)
[2025-01-08 10:00] LABS: Lactic Acid 1.3 mmol/L (0.5-2.0)
[2025-01-08 10:02] LABS: Alanine Aminotransferase 14 U/L (0-40); Albumin Level 3.6 g/dL (3.5-5.0); Alkaline Phosphatase 96 U/L (39-117); Anion Gap 16 (12-20); Aspartate Amino Transferase 34 U/L (5-37); Bilirubin Total 0.9 mg/dL (0.0-1.0); Blood Urea Nitrogen 40 mg/dL (9-16); Carbon Dioxide 30 mmol/L (22-29); Chloride 98 mmol/L (96-108); Creatinine Clr Calc Pharmacy 40.3; Estimated Glomerular Filt Rate 34; Glucose Random 271 mg/dL (60-115); Potassium 5.4 mmol/L (3.3-5.1); Sodium 139 mmol/L (135-145); Total Protein 7.6 g/dL (6.5-8.0)
[2025-01-08 10:04] LABS: B Type Natriuretic Peptide 563 pg/mL (<100)
[2025-01-08 10:05] LABS: Troponin-I High Sensitivity 8.3 ng/L (<3.5-35.0)
--- NOTE | 2025-01-08 10:06 | PC.NURSE ---
Pt sleeping on stretcher, wakes to voice; pt has dementia and is Vincentian speaking only; family at bedside; pt on humidified O2 at 5 ltr NC; SAO2 95%; LS dim throughout with exp. wheezes; MD at bedside with press operator to speak with family/pt
[2025-01-08 10:08] LABS: Band Neutrophils Percent 2 % (3-5); Basophilic Stippling 1+ (0-2) /OIF; Basophils Percent Manual 1 % (0-2); Lymphocytes Percent Manual 8 % (20-40); Macrocytosis 1+ (5-14) /OIF; Monocytes Percent Manual 2 % (2-11); Neutrophils Percent Manual 87 % (45-73); Ovalocytes 1+ (5-14) /OIF; Platelet Estimate SLIGHTLY DECREASED (NORMAL); Platelet Morphology Comment NORMAL; RBC Morphology NOTED
[2025-01-08 10:13] LABS: Basophils Abs Manual 0.1 X10*3/uL (0.0-0.2); Lymphocytes Absolute Manual 0.6 X10*3/uL (1.2-4.9); Monocytes Absolute Manual 0.2 X10*3/uL (0.1-1.2); White Blood Count 7.9 X10*3/uL (4.8-10.8)
--- NOTE | 2025-01-08 12:52 | ED.SOB ---
HPI - SOB/Dyspnea General Chief Complaint: Dyspnea Stated Complaint: AMS,SOB 84% 4LPM, 93% DUONEB,DEMENTIA PER EMS Time Seen by Provider: 01/08/25 08:49 Source: family (SonHadley who can be reached [phone]) Mode of arrival: EMS Limitations: language barrier (Patient's son and patient's speaks Faroese only, [facility] spanish interpreter/translator used) and other (Patient has dementia, information came with the patient's son) History of Present Illness ED Provider: Dr. Subhash Corey HPI Narrative: 79-year-old male with a PMH significant for CAD, Alzheimer's dementia, persistent AFib on Eliquis, insulin-dependent type 2 diabetes, CKD 3, HLD, HTN, gout, and GERD who presents to the emergency department for evaluation of decreasing O2 saturation values at home. The son states the patient has difficulty keeping his oxygen on secondary to his dementia. The patient uses 2 L of oxygen when he sitting in 4 L of oxygen when he was ambulating. They do use humidified oxygen at home. The son noted that the patient's O2 saturation decreased to 86% which was a significant change therefore he called an ambulance and had the patient brought to the emergency department. The patient has no complaints in the son states that the patient has not had fever, chills, complained of chest pain, nausea or vomiting. The patient was last admitted from 12/24/2024 until 12/26/2024 for acute hypoxia secondary to CHF exacerbation. Patient was initially treated with Bumex, ceftriaxone and doxycycline. He was hospital course was complicated by hypoglycemia. Pt with dementia at baseline which inhibits detailed HPI, which is supplemented by family at bedside. Pt was recently admitted to the hospital on 11/25/2024-12/03/2024 for acute hypoxic respiratory failure in the setting of CHF, NSTEMI, and RSV infection. Since discharge pt has continued to have nonproductive cough and SOB, though these significantly increased yesterday. Family called EMS where he was evaluated and vitals were stable, and pt was not brought to the ED. This morning pt was shaking and increasing SOB, and EMS was called again where pt was noted to be satting in the low 80s on RA. No nausea, vomiting, diarrhea, abdominal pain. No noticeable increased lower leg edema. Denies chest pain/pressure, palpitations. Related Data Home Medications ?Medication ?Instructions ?Recorded ?Confirmed apixaban 5 mg tablet (Eliquis) 5 mg PO BID 09/05/21 12/24/24 donepezil 10 mg tablet 1 tab PO BEDTIME 09/05/21 12/24/24 zvtoppjk-sur-zxuyh acid 0.4 1 tab PO DAILY 09/05/21 12/24/24 mg-lycopene 300 mcg-lutein 250 mcg tablet (CertaVite Senior) allopurinol 100 mg tablet 50 mg PO DAILY gout pain 10/07/21 12/24/24 insulin syringe-needle U-100 1 mL #10 ea 12/22/21 05/08/22 31 gauge x 5/16 memantine 10 mg tablet 10 mg PO BID 05/08/22 12/24/24 metoprolol tartrate 100 mg tablet 100 mg PO BID 05/08/22 12/24/24 cetirizine 10 mg tablet 10 mg PO DAILY congestion 08/17/23 12/24/24 gabapentin 800 mg tablet 800 mg PO BID 05/17/24 12/24/24 omeprazole 20 mg capsule,delayed 20 mg PO BID@0630,1630 05/17/24 12/24/24 release sucralfate 1 gram tablet 1 g PO TIDAC 05/17/24 12/24/24 magnesium oxide 250 mg PO DAILY 11/25/24 12/24/24 insulin aspar prt-insulin aspart 76 unit subcut BIDWM 12/24/24 12/24/24 100 unit/mL (70-30) subcutaneous soln (Novolog Mix 70-30 U-100 Insuln) Previous Rx's ?Medication ?Instructions ?Recorded atorvastatin 40 mg tablet (Lipitor) 40 mg PO BEDTIME #30 tabs 09/09/21 lancets (Lancets,Ultra Thin) #100 ea 10/21/21 amlodipine 5 mg tablet 2.5 mg (1/2 x 5 mg) PO DAILY #90 12/03/24 tabs aspirin 81 mg chewable tablet 81 mg PO DAILY #60 tabs 12/03/24 bumetanide 1 mg tablet 1 mg PO DAILY #90 tabs 12/03/24 isosorbide mononitrate 60 mg 60 mg PO DAILY #90 tabs 12/03/24 tablet,extended release 24 hr tamsulosin 0.4 mg capsule (Flomax) 0.4 mg PO BEDTIME #60 caps 12/03/24 cefuroxime axetil 500 mg tablet 500 mg PO Q12H #10 tabs 12/26/24 doxycycline monohydrate 100 mg 100 mg PO BID #10 caps 12/26/24 capsule Allergies Allergy/AdvReac Type Severity Reaction Status Date / Time No Known Allergies Allergy Verified 01/08/25 08:29 Review of Systems Review of Systems: Yes all other systems are reviewed and are negative [facility] Past Medical History [facility] Narrative: Social history: He lives at home with his son. Medical History CAD (coronary artery disease) Trash foot Diabetic foot infection Heart failure with preserved ejection fraction HLD (hyperlipidemia) Diabetes mellitus Atrial fibrillation NSTEMI (non-ST elevated myocardial infarction) Alzheimer's dementia Kidney failure Diabetes HTN (hypertension) Surgical History No pertinent past surgical history Family History Family History Father No problems noted. Mother No problems noted. Social History Social History Household Members: Children Household Members Other:: sons and daughter in law Housing: Apartment Do you presently have visiting nurse or other home services: Yes Unable to assess alcohol history related to: Unable to respond Alcohol intake: never Patient Tobacco Use Status: Never used Tobacco Smoked in Last 30 Days: No e-Cigarette/Vaping Use: Never Used Second Hand Smoke Exposure: No Use of substances other than those prescribed or required for medical reasons: Unable to respond Advance Directives: Yes Advance Directives on File: Yes Advance Directives Date on File: 09/06/21 Do you have a plan to hurt others: No Plan service: No Current occupational status: retired Physical Exam Vital Signs: Vital Signs: Last Vital Signs Temp 96.9 F 01/08/25 12:00 Pulse 65 01/08/25 14:00 Resp 16 01/08/25 15:02 BP 142/74 H 01/08/25 14:00 Pulse Ox 97 01/08/25 14:00 O2 Del Method High Flow Nasal C annula 01/08/25 14:00 O2 Flow Rate 15 01/08/25 14:00 Oxygen Flow Rate 4 01/08/25 08:25 BMI result Body Mass Index 35.6 Vital signs revealed that he was afebrile, respiratory rate was elevated 28, O2 saturation was 92% on 7 L of oxygen via nasal cannula. Exam: General: Somnolent but does wake up, was able to answer questions and Faroese, recognizes his son Head: Normocephalic, atraumatic EENT: PERRL, Lids normal, sclera normal, conjunctiva normal, nose normal , ears normal, throat without erythema or exudates Neck: Supple, no adenopathy Lung: Diminished breath sounds bilaterally with diffuse rales, no wheezing or rhonchi Chest: symmetric movement, nontender Heart: regular rate and rhythm, normal S1, S2 no murmurs or rubs Abdomen: soft, non-tender, nondistended, normal bowel sounds Back: no vertebral tenderness, no CVAT Extremities: no deformities, trace to 1+ pitting edema bilaterally symmetric Neuro: Somnolent but arousable, does answer questions and Faroese, cranial nerves are intact moves all extremities symmetrically Psych: Pleasant, cooperative Medical Decision Making Medical Decision Making MDM Narrative: 79-year-old male with a PMH significant for CAD, Alzheimer's dementia, persistent AFib on Eliquis, insulin-dependent type 2 diabetes, CKD 3, HLD, HTN, gout, and GERD who presents to the emergency department for evaluation of decreasing O2 saturation values at home. Patient was recently admitted from 12/24/2024 until 12/26/2024 for hypoxia secondary to CHF exacerbation. Patient did require 7 L of oxygen to keep his O2 saturation above 92%. Lung exam did reveal diffuse rales with diminished breath sound at the bases. Extremities did reveal trace to 1+ pitting edema which is symmetric. Differential diagnosis: ?Includes but is not limited to congestive heart failure, myocardial infarction, myocardial ischemia, pneumonia, electrolyte abnormalities, anemia Course: 14:17 My interpretation patient's laboratory evaluation as follows: Chronic normocytic anemia with an H&H of 9.8 and 30.9. PT and INR were elevated 17.3 and 1.5, PTT elevated 37.2-patient was on Eliquis. Venous blood gas revealed a normal pH of 7.37 and an elevated pCO2 of 73 with an elevated bicarb of 40. Patient's BUN and creatinine were elevated 40 and 1.92 - is consistent with his chronic kidney disease. Glucose was elevated 271. BNP was elevated 563. Troponin was detectable but not elevated at 8.3. Chest x-ray is consistent with pulmonary edema. Patient was placed on high-flow oxygen via nasal cannula with improvement of his oxygen initiation . He was also ordered to get Lasix 60 mg IV. I did speak to the patient's son and the patient does have difficulty urinating, bladder scan revealed 330 cc of urine in his bladder. Son states the patient has had Bragg catheters in the past therefore I ordered a Bragg catheter to be placed by nursing so that we can monitor the patient's I's and O's. 15:52 Patient put out a proximally 600 cc of urine after the 1st dose of Lasix. I ordered Bumex 1 mg IV. I did discuss the patient's presentation over tiger text with the covering hospitalist, Dr. Regan and the patient will be admitted to the hospitalist service for further management. Admission/Observation Consideration of admission/observation: Escalation of care including admission/observation considered (Yes) Consult Healthcare Provider Management of the patient was discussed with: Hospitalist Lab Data MDM Lab Attestation statement: I reviewed the patient's lab results. 01/08/25 09:32 01/08/25 09:32 Labs: Lab Results 01/08/25 01/08/25 01/08/25 Range/Units 09:32 09:39 12:19 WBC 7.9 (4.8-10.8) X10*3/uL RBC 3.24 L (4.60-5.80) X10*6/uL Hgb 9.8 L (14.0-18.0) g/dl Hct 30.9 L (42.0-52.0) % MCV 95.4 (80.0-98.0) fL MCH 30.2 (27.0-33.0) pg MCHC 31.7 (31.0-36.0) g/dl RDW 15.7 (11.0-16.0) % Plt Count 170 (160-400) X10*3/uL MPV 11.6 (9.4-12.4) fL Immature Gran % (Auto) Cancelled Neut % (Auto) Cancelled Lymph % (Auto) Cancelled [place] % (Auto) Cancelled Eos % (Auto) Cancelled Baso % (Auto) Cancelled Lymph # (Auto) Cancelled [place] # (Auto) Cancelled Eos # (Auto) Cancelled Baso # (Auto) Cancelled Abs Immat Gran (auto) Cancelled Absolute Neuts (auto) Cancelled Absolute Nucleated RBC 0.000 (0.0-0.012) X10*3/uL Nucleated RBC % (auto) 0.0 (0.0-0.2) /100WBC Neutrophils % (Manual) 87 H (45-73) % Band Neutrophils % 2 L (3-5) % Lymphocytes % (Manual) 8 L (20-40) % Monocytes % (Manual) 2 (2-11) % Basophils % (Manual) 1 (0-2) % Abs Neuts (Manual) 7.0 (2.0-8.3) X10*3/uL Lymphocytes # (Manual) 0.6 L (1.2-4.9) X10*3/uL Monocytes # (Manual) 0.2 (0.1-1.2) X10*3/uL Basophils # (Manual) 0.1 (0.0-0.2) X10*3/uL Platelet Estimate SLIGHTLY DECREASED (NORMAL) Plt Morphology Comment NORMAL RBC Morphology NOTED Basophilic Stippling 1+ (0-2) /OIF Macrocytosis 1+ (5-14) /OIF Ovalocytes 1+ (5-14) /OIF PT 17.3 H (10.9-12.4) SEC INR 1.5 H (0.9-1.1) APTT 37.2 H (26.0-36.8) SEC VBG pH 7.35 (7.32-7.43) VBG pCO2 73 mmHg VBG pO2 43 mmHg VBG HCO3 40 H (22-26) mmol/L VBG O2 Saturation 65.0 % VBG Base Excess 12.6 mmol/L Sodium 139 (135-145) mmol/L Potassium 5.4 H (3.3-5.1) mmol/L Chloride 98 (96-108) mmol/L Carbon Dioxide 30 H (22-29) mmol/L Anion Gap 16 (12-20) BUN 40 H (9-16) mg/dL Creatinine 1.92 H (0.5-1.4) mg/dL Estim Creat Clear Calc 40.3 Estimated GFR 34 Random Glucose 271 H (60-115) mg/dL Lactic Acid 1.3 (0.5-2.0) mmol/L Calcium 9.0 (8.4-10.2) mg/dL Total Bilirubin 0.9 (0.0-1.0) mg/dL AST 34 (5-37) U/L ALT 14 (0-40) U/L Alkaline Phosphatase 96 (39-117) U/L Troponin I High Sens 8.3 D (<3.5-35.0) ng/L B-Natriuretic Peptide 563 H (<100) pg/mL Total Protein 7.6 (6.5-8.0) g/dL Albumin 3.6 (3.5-5.0) g/dL Influenza Type A (PCR) NEGATIVE (Negative) Influenza Type B (PCR) NEGATIVE (Negative) RSV RNA Qual (PCR) NEGATIVE (Negative) SARS-CoV-2 RNA (RT-PCR) NEGATIVE (Negative) 01/08/25 01/08/25 Range/Units 14:39 14:42 WBC (4.8-10.8) X10*3/uL RBC (4.60-5.80) X10*6/uL Hgb (14.0-18.0) g/dl Hct (42.0-52.0) % MCV (80.0-98.0) fL MCH (27.0-33.0) pg MCHC (31.0-36.0) g/dl RDW (11.0-16.0) % Plt Count (160-400) X10*3/uL MPV (9.4-12.4) fL Immature Gran % (Auto) Neut % (Auto) Lymph % (Auto) [place] % (Auto) Eos % (Auto) Baso % (Auto) Lymph # (Auto) [place] # (Auto) Eos # (Auto) Baso # (Auto) Abs Immat Gran (auto) Absolute Neuts (auto) Absolute Nucleated RBC (0.0-0.012) X10*3/uL Nucleated RBC % (auto) (0.0-0.2) /100WBC Neutrophils % (Manual) (45-73) % Band Neutrophils % (3-5) % Lymphocytes % (Manual) (20-40) % Monocytes % (Manual) (2-11) % Basophils % (Manual) (0-2) % Abs Neuts (Manual) (2.0-8.3) X10*3/uL Lymphocytes # (Manual) (1.2-4.9) X10*3/uL Monocytes # (Manual) (0.1-1.2) X10*3/uL Basophils # (Manual) (0.0-0.2) X10*3/uL Platelet Estimate (NORMAL) Plt Morphology Comment RBC Morphology Basophilic Stippling /OIF Macrocytosis /OIF Ovalocytes /OIF PT (10.9-12.4) SEC INR (0.9-1.1) APTT (26.0-36.8) SEC VBG pH 7.32 (7.32-7.43) VBG pCO2 76 mmHg VBG pO2 57 mmHg VBG HCO3 40 H (22-26) mmol/L VBG O2 Saturation 81.0 % VBG Base Excess 11.5 mmol/L Sodium (135-145) mmol/L Potassium (3.3-5.1) mmol/L Chloride (96-108) mmol/L Carbon Dioxide (22-29) mmol/L Anion Gap (12-20) BUN (9-16) mg/dL Creatinine (0.5-1.4) mg/dL Estim Creat Clear Calc Estimated GFR Random Glucose (60-115) mg/dL Lactic Acid (0.5-2.0) mmol/L Calcium (8.4-10.2) mg/dL Total Bilirubin (0.0-1.0) mg/dL AST (5-37) U/L ALT (0-40) U/L Alkaline Phosphatase (39-117) U/L Troponin I High Sens 6.8 (<3.5-35.0) ng/L B-Natriuretic Peptide (<100) pg/mL Total Protein (6.5-8.0) g/dL Albumin (3.5-5.0) g/dL Influenza Type A (PCR) (Negative) Influenza Type B (PCR) (Negative) RSV RNA Qual (PCR) (Negative) SARS-CoV-2 RNA (RT-PCR) (Negative) Independent Interpretation I performed an independent interpretation of an: EKG and Plain X-Ray Interpretation: My interpretation patient's chest x-ray is as follows: Increased interstitial infiltrates consistent with pulmonary edema, possible bilateral pleural effusions My independent interpretation patient's EKG done at 08:43 hours is as follows: Atrial fibrillation with a rate of 65, normal QRS duration and QTC interval, no ST segment elevation, no ST segment depression, no significant T-wave abnormalities, no PACs, no PVCs. Compared to EKG dated 12/24/2024 there is no significant change. Radiology Impression Discussion of test interpretation with radiology: I have reviewed the radiologist's reading. Radiologist Impression: XR chest 1V IMPRESSION: Mild pulmonary vascular congestion. Persistent opacification of both lung bases which may represent atelectasis or pneumonia and pleural fluid. Electronically signed by: Rony Lion MD 01/08/2025 11:05 AM [facility] Independent Historian Clinical information obtained from an independent historian. History obtained from or confirmed by: Other (Son) External Record Review External record reviewed: Inpatient record Chronic Conditions Patient?s care impacted by: Other (Congestive heart failure, chronic kidney disease) Critical Care Time Critical Care Time Critical Care Time: Yes Total Critical Care Time: 45 Attestation: Critical Care: The patient was critically ill with a high probability of imminent or life threatening deterioration. I spent greater than 30 minutes of discontinuous time evaluating the patient,delivering critical care at the bedside, discussing and evaluating pertinent data with consultants. Critical care time does not include time spent performing separately billable procedures or teaching. Total time spent performing critical care was 45 minutes. Discharge Plan Discharge Patient Disposition: Admitted As Inpatient Print Language: Faroese
[2025-01-08 13:09] LABS: Influenza A PCR NEGATIVE (Negative); Influenza B PCR NEGATIVE (Negative); Resp Syncy Virus RNA Qual PCR NEGATIVE (Negative); SARS COV2 PCR INHOUSE NEGATIVE (Negative)
[2025-01-08 14:47] LABS: VBG Base Excess 11.5 mmol/L; VBG HCO3 40 mmol/L (22-26); VBG pCO2 76 mmHg; VBG pH 7.32 (7.32-7.43); VBG pO2 57 mmHg
[2025-01-08 14:48] LABS: Venous Blood Gas Refer to POC result
--- NOTE | 2025-01-08 15:00 | P.HPHOSP_ITS ---
History of Present Illness Date of Service: 01/08/25 Chief Complaint: Hypoxia, heart failure exacerbation A 79-year-old male with a history of coronary artery disease (CAD), diabetes mellitus (DM), Alzheimer's dementia, hyperlipidemia (HLD), stage 3 chronic kidney disease (CKD), chronic atrial fibrillation (AFib), and heart failure with reduced ejection fraction (HFrEF) presented to the emergency department. He has a history of frequent hospitalizations, including three since November 25, most recently from December 24 to for acute hypoxic respiratory failure due to congestive heart failure (CHF) and bacterial pneumonia. He was evaluated and discharged from the ED for a similar presentation just three days prior. He now presents with increasing confusion per family and hypoxia, as he is removing his oxygen. His initial oxygen saturation was 84%, which improved to 94% after treatment with a duoneb, ultimately requiring high-flow oxygen. Testing revealed reassuring arterial blood gas (ABG) results, mildly elevated potassium of 5.4, a BNP of 563, and negative influenza, RSV, and COVID tests. A chest x- ray (CXR) showed mild pulmonary vascular congestion, persistent opacification of both lung bases (possibly representing atelectasis or pneumonia), and pleural effusion. ED treatment consisted of 60mg of IV Lasix and high-flow oxygen. Review of Systems 2 Review of Systems: Yes Unobtainable due to mental status [facility] Medical History CAD (coronary artery disease) Trash foot Diabetic foot infection Heart failure with preserved ejection fraction HLD (hyperlipidemia) Diabetes mellitus Atrial fibrillation NSTEMI (non-ST elevated myocardial infarction) Alzheimer's dementia Kidney failure Diabetes HTN (hypertension) Family History Father No problems noted. Mother No problems noted. Surgical History No pertinent past surgical history Social History Household Members: Family Household Members Other:: sons and daughter in law Housing: Apartment Do you presently have visiting nurse or other home services: Yes Unable to assess alcohol history related to: Unable to respond Alcohol intake: never Patient Tobacco Use Status: Never used Tobacco Smoked in Last 30 Days: No e-Cigarette/Vaping Use: Never Used Second Hand Smoke Exposure: No Use of substances other than those prescribed or required for medical reasons: No Currently Displaying Signs/Symptoms of Drug Intoxication Withdrawal: No Advance Directives: Yes Advance Directives on File: Yes Advance Directives Date on File: 09/06/21 Do you have a plan to hurt others: No Plan Recently lost weight without trying: No Nutrition Risks: No Nutritional Risk service: No Current occupational status: retired [employer] Allergies Allergy/AdvReac Type Severity Reaction Status Date / Time No Known Allergies Allergy Verified 01/08/25 08:29 Home Medications ?Medication ?Instructions ?Recorded ?Confirmed ?Last Taken ?Type apixaban 5 mg tablet (Eliquis) 5 mg PO BID 09/05/21 01/08/25 11/25/24 History donepezil 10 mg tablet 1 tab PO BEDTIME 09/05/21 01/08/25 11/24/24 History fveuyzzn-myu-wrjuo acid 0.4 1 tab PO DAILY 09/05/21 01/08/25 11/25/24 History mg-lycopene 300 mcg-lutein 250 mcg tablet (CertaVite Senior) allopurinol 100 mg tablet 50 mg PO DAILY gout pain 10/07/21 01/08/25 11/25/24 History insulin syringe-needle U-100 1 mL #10 ea 12/22/21 05/08/22 Unknown History 31 gauge x 5/16 memantine 10 mg tablet 10 mg PO BID 05/08/22 01/08/25 11/25/24 History metoprolol tartrate 100 mg tablet 100 mg PO BID 05/08/22 01/08/25 11/25/24 History cetirizine 10 mg tablet 10 mg PO DAILY congestion 08/17/23 01/08/25 11/25/24 History gabapentin 800 mg tablet 800 mg PO BID 05/17/24 01/08/25 11/25/24 History omeprazole 20 mg capsule,delayed 20 mg PO BID@0630,1630 05/17/24 01/08/25 11/25/24 History release sucralfate 1 gram tablet 1 g PO TIDAC 05/17/24 01/08/25 11/25/24 History magnesium oxide 250 mg PO DAILY 11/25/24 01/08/25 11/25/24 History insulin aspar prt-insulin aspart 76 unit subcut BIDWM 12/24/24 01/08/25 Unknown History 100 unit/mL (70-30) subcutaneous soln (Novolog Mix 70-30 U-100 Insuln) aluminum-mag hydroxide-simethicone 5 ml PO Q6H PRN Indigestion 01/08/25 01/08/25 Unknown History 200 mg-200 mg-20 mg/5 mL oral susp (Nell-Lanta) diphenhydramine HCl 25 mg tablet 12.5 mg PO BEDTIME PRN Allergy 01/08/25 01/08/25 Unknown History (Nell-Dryl) Symptoms mineral oil-hydrophil petrolat 1 appl topical DAILY PRN Dry Skin 01/08/25 01/08/25 Unknown History topical ointment (petrolatum topical ointment) triamcinolone acetonide 0.1 % 1 appl topical BID 01/08/25 01/08/25 Unknown History topical cream Physical Exam 2 Vital Signs and Narrative: Vital Signs: Last Vital Signs Temp 96.9 F 01/08/25 12:00 Pulse 65 01/08/25 14:00 Resp 16 01/08/25 14:00 BP 142/74 H 01/08/25 14:00 Pulse Ox 97 01/08/25 14:00 O2 Del Method High Flow Nasal C annula 01/08/25 14:00 O2 Flow Rate 15 01/08/25 14:00 Oxygen Flow Rate 4 01/08/25 08:25 BMI result Body Mass Index 35.6 Results Labs 01/08/25 09:32 01/09/25 09:26 Labs: Laboratory Results - last 24 hr 01/08/25 01/08/25 01/08/25 09:32 09:39 12:19 MCV 95.4 MCH 30.2 MCHC 31.7 RDW 15.7 Plt Count 170 MPV 11.6 Immature Gran % (Auto) Cancelled Neut % (Auto) Cancelled Lymph % (Auto) Cancelled [place] % (Auto) Cancelled Eos % (Auto) Cancelled Baso % (Auto) Cancelled Lymph # (Auto) Cancelled [place] # (Auto) Cancelled Eos # (Auto) Cancelled Baso # (Auto) Cancelled Abs Immat Gran (auto) Cancelled Absolute Neuts (auto) Cancelled Absolute Nucleated RBC 0.000 Nucleated RBC % (auto) 0.0 Neutrophils % (Manual) 87 H Band Neutrophils % 2 L Lymphocytes % (Manual) 8 L Monocytes % (Manual) 2 Basophils % (Manual) 1 Abs Neuts (Manual) 7.0 Lymphocytes # (Manual) 0.6 L Monocytes # (Manual) 0.2 Basophils # (Manual) 0.1 Platelet Estimate SLIGHTLY DECREASED Plt Morphology Comment NORMAL RBC Morphology NOTED Basophilic Stippling 1+ (0-2) Macrocytosis 1+ (5-14) Ovalocytes 1+ (5-14) PT 17.3 H INR 1.5 H APTT 37.2 H VBG pH 7.35 VBG pCO2 73 VBG pO2 43 VBG HCO3 40 H VBG O2 Saturation 65.0 VBG Base Excess 12.6 Anion Gap 16 Estim Creat Clear Calc 40.3 Estimated GFR 34 Random Glucose 271 H Lactic Acid 1.3 Calcium 9.0 Total Bilirubin 0.9 AST 34 ALT 14 Alkaline Phosphatase 96 B-Natriuretic Peptide 563 H Total Protein 7.6 Albumin 3.6 Influenza Type A (PCR) NEGATIVE Influenza Type B (PCR) NEGATIVE RSV RNA Qual (PCR) NEGATIVE SARS-CoV-2 RNA (RT-PCR) NEGATIVE 01/08/25 14:42 MCV MCH MCHC RDW Plt Count MPV Immature Gran % (Auto) Neut % (Auto) Lymph % (Auto) [place] % (Auto) Eos % (Auto) Baso % (Auto) Lymph # (Auto) [place] # (Auto) Eos # (Auto) Baso # (Auto) Abs Immat Gran (auto) Absolute Neuts (auto) Absolute Nucleated RBC Nucleated RBC % (auto) Neutrophils % (Manual) Band Neutrophils % Lymphocytes % (Manual) Monocytes % (Manual) Basophils % (Manual) Abs Neuts (Manual) Lymphocytes # (Manual) Monocytes # (Manual) Basophils # (Manual) Platelet Estimate Plt Morphology Comment RBC Morphology Basophilic Stippling Macrocytosis Ovalocytes PT INR APTT VBG pH 7.32 VBG pCO2 76 VBG pO2 57 VBG HCO3 40 H VBG O2 Saturation 81.0 VBG Base Excess 11.5 Anion Gap Estim Creat Clear Calc Estimated GFR Random Glucose Lactic Acid Calcium Total Bilirubin AST ALT Alkaline Phosphatase B-Natriuretic Peptide Total Protein Albumin Influenza Type A (PCR) Influenza Type B (PCR) RSV RNA Qual (PCR) SARS-CoV-2 RNA (RT-PCR) Imaging Radiologist's Impressions: Impressions Chest X-Ray 01/08/25 09:18 IMPRESSION: Mild pulmonary vascular congestion. Persistent opacification of both lung bases which may represent atelectasis or pneumonia and pleural fluid. Electronically signed by: Rony Lion MD 01/08/2025 11:05 AM EST Assessment and Plan (1) Acute decompensated heart failure: Status: Acute (2) Chronic atrial fibrillation: Status: Acute (3) Acute on chronic hypoxic respiratory failure: Status: Acute Plan A 79-year-old male with a history of CAD, DM, Alzheimer's dementia, HLD, CKD stage 3, and chronic AFib, HFrEF, with frequent hospitalizations (3 since November 25), most recently from 12/24 to 12/26 for acute hypoxic respiratory failure due to CHF and bacterial pneumonia, presented to the ED three days after discharge for a similar presentation. He now presents with confusion and hypoxia and was found to have an HFrEF exacerbation. HFrEF: Recent echo showed a severely reduced LV ejection fraction of 20-25%. Treatment includes IV diuretics. Monitor I/O, weight, BNP, and BMP. Cardiology evaluation if not improving. Acute hypoxic respiratory failure due to the above. Treat the underlying CHF; oxygen goal 92% or better. Confusion due to metabolic encephalopathy with underlying dementia. CKD-3: Cardiorenal syndrome; creatinine within baseline. Diabetes with hyperglycemia: Continue home Novolog 70/30 bid (cannot substitute)--usually 30-76 units per family scale, in addition to Admelog sliding scale. HTN: Norvasc. Chronic AFib: Metoprolol; continue Eliquis. CAD: ASA, statin, metoprolol. GERD: PPI. Dementia: Continue Memantine and Donepezil. Neuropathy: Gabapentin. DVT prophylaxis: Eliquis. Full code. Will discuss goals of care with the family. Admit for at least two midnights for acute hypoxic respiratory failure due to heart failure exacerbation. Given this patient's advanced dementia, frequent hospitalizations with decompensation, and bedbound status, I will discuss goals of care with the family. This discussion will include exploring Do Not Resuscitate (DNR)/Do Not Intubate (DNI) status, hospice options, and focusing on comfort care. Quality Stroke Does the patient have a stroke diagnosis?: No VTE Prior VTE?: No VTE Risk Level:: Medical - moderate - high VTE Device Contraindication: N/A - Device Ordered VTE Drug Contraindication: N/A - Med Ordered
[2025-01-08 15:10] LABS: Troponin-I High Sensitivity 6.8 ng/L (<3.5-35.0)
[2025-01-08] MEDS: Bumetanide 1 MG/4 ML VIAL IVPUSH (16:08)
--- NOTE | 2025-01-08 16:13 | PC.NURSE ---
Pt was sleeping at RN arrival. Easily arousd to voice. oriented to person but unable to answer all other questions. family at bedside and explaining plan of care to patient. Bumex administered. 400ml urine out in montelongo b/f bumex. Remains on high flow and oxymask. Slightly labored resp and increased WOB at rest in bed. plus 2 pitting edema to shins. LS dim. very little air ovement. Did not tolerate rollingfor rectal temp well. Desated on all O2 to 81. was able to participate in rolling
--- NOTE | 2025-01-08 16:43 | P.ACPN_ITS ---
Advanced Care Planning Note Advanced Care Planning Note Time spent (in minutes): 25 Narrative: I met in person with the patient's son and [id number] for a goals of care discussion. We addressed the patient's complex medical history, including advanced dementia, chronic respiratory failure requiring home oxygen, CAD, diabetes, frequent hospitalizations for heart failure, his current hypoxia, his aversion to wearing oxygen, poor appetite, and episodes of hypoglycemia. They acknowledged his recent decline and increasing deconditioning with each hospitalization. We discussed his current high-flow oxygen requirement to maintain oxygen saturation and potential next steps, including BiPAP and mechanical ventilation. We also discussed CPR in the event of cardiac arrest. These topics were explained in simple terms with the assistance of an postdoctoral fellow. They asked thoughtful questions and ultimately decided to make him DNR/DNI, while continuing his current care. The decisions of this conversation was confirmed by pt's RN Jesica Payne. Code status changed to DNR/DNI, will complet MOLST for at later time.
[2025-01-08] MEDS: Sodium Zirconium Cyclosilicate 5 GM POWD.PACK PO (17:13)
--- NOTE | 2025-01-08 17:14 | PC.NURSE ---
WOB is improved since repositioned.
--- NOTE | 2025-01-08 19:35 | PHA.MEDREC ---
Addendum entered by Blessing Barbour RPh 01/08/25 20:20: med rec reviewed by [facility]. utilized list from [facility] pharmacy dated 01/08/25. Original Note: Pharmacy Consult ? Medication Reconciliation Pharmacy has completed the medication reconciliation. Tried calling patients Son/HCP Hadley and did not ansewer so I left a voicemail, never heard back from him. Got patients med box list faxed over to us from [facility] and confirmed patients med rec utilizing that.
[2025-01-08 20:30] LABS: Glucose, Whole Blood 291 mg/dL (60-115)
[2025-01-08 23:10] LABS: Glucose, Whole Blood 374 mg/dL (60-115)
[2025-01-08] MEDS: Insulin Lispro 100 UNIT/ML 3 ML VIAL SUBCUT (23:10)
[2025-01-08] MEDS: Donepezil HCl 10 MG TABLET PO (23:11)
[2025-01-08] MEDS: Apixaban 5 MG TABLET PO (23:11)
[2025-01-08] MEDS: Atorvastatin Calcium 40 MG TABLET PO (23:11)
[2025-01-08] MEDS: Gabapentin 400 MG CAPSULE 800 MG PO (23:11)
[2025-01-08] MEDS: Tamsulosin HCL 0.4 MG CAPSULE PO (23:11)
[2025-01-09] VITALS (16 sets, daily range): BP systolic 129–174; BP diastolic 60–85; PULSE 58–99; RESP 16–20; TEMP 36–36.9; O2SAT 86–97
[2025-01-09] MEDS: 0.9 % Sodium Chloride Flush 3 ML SYRINGE IVFLUSH ×4 (01:08→21:02)
[2025-01-09] MEDS: Morphine Sulfate 4 MG/ML CARTRIDGE IVPUSH (01:14)
[2025-01-09 01:28] LABS: Troponin-I High Sensitivity 6.7 ng/L (<3.5-35.0)
[2025-01-09] MEDS: Omeprazole 20 MG CAPSULE.DR PO ×2 (05:33→17:58)
--- NOTE | 2025-01-09 05:39 | PM.EVENT ---
Event Note Date of Service: 01/09/25 Event Note: Nurse reported hematuria with blood clots. Will hold Eliquis and aspirin. Initiating CBI. Consulted Urology. Closely monitor H&H Time Spent With Patient Time: Total time managing care of this patient today ____ minutes.
[2025-01-09 07:56] LABS: Glucose, Whole Blood 277 mg/dL (60-115)
--- NOTE | 2025-01-09 08:42 | MHC.CM.PN ---
Patient has Advanced Dementia; CM spoke with Son/HCP/Hadley @ [phone] and addressed IMM with him (original will be mailed certified letter to Hadley and a copy has been placed on the chart). Patient lives in an apartment with Hadley and Hadley's Girlfriend;Hadley is his DESIGN PRINTING MACHINE SETTER and Caregiver 18/06. Patient is on home O2 and has VNA services but Hadley could not recall the name of the agencies. Home/resume said services is the goal and CM has initiated and will follow for dc planning. PCP is Dr. Kathy Villafana and Patient will require BLS transport to home.
[2025-01-09] MEDS: Isosorbide Mononitrate 60 MG TAB.ER.24H PO (09:03)
[2025-01-09] MEDS: Magnesium Oxide 400 MG TABLET PO (09:03)
[2025-01-09] MEDS: Gabapentin 400 MG CAPSULE 800 MG PO ×2 (09:03→21:01)
[2025-01-09] MEDS: Loratadine 10 MG TABLET PO (09:04)
[2025-01-09] MEDS: Sucralfate 1 GM TABLET PO ×3 (09:04→17:59)
[2025-01-09] MEDS: allopurinoL 100 MG TABLET 50 MG PO (09:04)
[2025-01-09] MEDS: Insulin Lispro 100 UNIT/ML 3 ML VIAL SUBCUT ×3 (09:04→21:01)
[2025-01-09] MEDS: Multivitamin TABLET 1 TAB PO (09:05)
[2025-01-09] MEDS: Metoprolol Tartrate 100 MG TABLET PO ×2 (09:12→21:01)
[2025-01-09] MEDS: Memantine HCl 10 MG TABLET PO ×2 (09:13→21:01)
[2025-01-09 10:09] LABS: Anion Gap 17 (12-20); Blood Urea Nitrogen 39 mg/dL (9-16); Calcium 9.1 mg/dL (8.4-10.2); Carbon Dioxide 32 mmol/L (22-29); Chloride 95 mmol/L (96-108); Creatinine Clr Calc Pharmacy 44.3; Estimated Glomerular Filt Rate 38; Glucose Random 332 mg/dL (60-115); Potassium 5.2 mmol/L (3.3-5.1); Sodium 139 mmol/L (135-145)
[2025-01-09 10:13] LABS: B Type Natriuretic Peptide 425 pg/mL (<100)
[2025-01-09 10:52] LABS: Glucose, Whole Blood 386 mg/dL (60-115)
[2025-01-09] MEDS: INSULIN ASP PRT INSULIN ASPART 40 EACH SUBCUT (10:56)
[2025-01-09 11:23] LABS: Glucose, Whole Blood 378 mg/dL (60-115)
--- NOTE | 2025-01-09 11:29 | P.PNIM_ITS ---
Subjective Subjective Date of Service: 01/09/25 Interval History: Seen in follow-up for acute hypoxic respiratory failure chronic respiratory failure, CHF exacerbation. Patient continued to be on high-flow overnight however more comfortable and relaxed. He also developed hematuria overnight and required CBI which seemed clear at this point. Physical Exam 2 Vital Signs: Vital Signs: Last Vital Signs Temp 96.8 F 01/09/25 07:30 Pulse 85 01/09/25 07:30 Resp 20 01/09/25 07:48 BP 141/85 H 01/09/25 07:30 Pulse Ox 95 01/09/25 07:30 O2 Del Method High Flow Nasal C annula 01/09/25 07:30 O2 Flow Rate 55 01/09/25 07:30 FiO2 85 01/09/25 07:30 Oxygen Flow Rate 4 01/08/25 08:25 BMI result Body Mass Index 35.6 Const: Other: General: Alert to self, no distress Resp: rales at bases, n CVS: S1,S2, iregular iregular, 2 + leg edema GI: +BS, NT, no distention Skin: No rash Neuro: motor grossly intact Psych: appropriate affect Objective Data Active Medications Acetaminophen (Acetaminophen 325 Mg Tablet) 650 mg PO Q6H PRN PRN Reason: Pain, Mild 1-3,fever,headache Al Hydroxide/Mg Hydroxide (Magnesium Hydrox/Alum Hydrox 30 Ml Oral.Susp) 5 ml PO Q6H PRN PRN Reason: Indigestion Allopurinol (Allopurinol 100 Mg Tablet) 50 mg PO DAILY [facility] Last Admin: 01/09/25 09:04 Dose: 50 mg Documented By: SHAWN Atorvastatin Calcium (Atorvastatin Calcium 40 Mg Tablet) 40 mg PO BEDTIME [facility] Last Admin: 01/08/25 23:11 Dose: 40 mg Documented By: BEATRICE Bumetanide (Bumetanide 1 Mg/4 Ml Vial) 1 mg IVPUSH BID@0900,1700 [facility]; Protocol Calcium Carbonate (Calcium Carbonate 750 Mg Tab.Chew) 750 mg PO Q4H PRN PRN Reason: Heartburn Dextrose (Dextrose 50 % 25 Gm/50 Ml Syringe) 25 gm IVPUSH Q15M PRN; Protocol PRN Reason: per Hypoglycemia Standing Ord. Diphenhydramine HCl (Diphenhydramine Hcl 25 Mg Capsule) 12.5 mg PO BEDTIME PRN PRN Reason: Allergy Symptoms Donepezil HCl (Donepezil Hcl 10 Mg Tablet) 10 mg PO BEDTIME [facility] Last Admin: 01/08/25 23:11 Dose: 10 mg Documented By: BEATRICE Gabapentin (Gabapentin 400 Mg Capsule) 800 mg PO BID [facility] Last Admin: 01/09/25 09:03 Dose: 800 mg Documented By: SHAWN Glucose (Glucose Gel 15 Gm Gel..Gram.) 15 gm PO Q15M PRN; Protocol PRN Reason: per Hypoglycemia Standing Ord. Insulin Human Lispro (Insulin Lispro 100 Unit/Ml 3 Ml Vial) 0 unit SUBCUT QIDACHS [facility]; Protocol Last Admin: 01/09/25 09:04 Dose: 6 unit Documented By: SHAWN Isosorbide Mononitrate (Isosorbide Mononitrate 60 Mg Tab.Er.24h) 60 mg PO DAILY [facility]; Protocol Last Admin: 01/09/25 09:03 Dose: 60 mg Documented By: SHAWN Loratadine (Loratadine 10 Mg Tablet) 10 mg PO DAILY [facility] Last Admin: 01/09/25 09:04 Dose: 10 mg Documented By: SHAWN Magnesium Hydroxide (Milk Of Magnesia 30 Ml Oral.Susp) 30 ml PO DAILY PRN PRN Reason: Constipation Magnesium Oxide (Magnesium Oxide 400 Mg Tablet) 400 mg PO DAILY [facility] Last Admin: 01/09/25 09:03 Dose: 400 mg Documented By: SHAWN Melatonin (Melatonin 3 Mg Tablet) 6 mg PO BEDTIME PRN PRN Reason: Insomnia Memantine (Memantine Hcl 10 Mg Tablet) 10 mg PO BID [facility] Last Admin: 01/09/25 09:13 Dose: 10 mg Documented By: SHAWN Metoprolol Tartrate (Metoprolol Tartrate 100 Mg Tablet) 100 mg PO BID [facility]; Protocol Last Admin: 01/09/25 09:12 Dose: 100 mg Documented By: SHAWN Multi-Ingred Cream/Lotion/Oil/Oint (Mineral Oil/Petrolatum,White 106 Gm Tube) 1 appl TOPICAL DAILY PRN PRN Reason: Dry Skin Multivitamins/Vitamin C (Multivitamin Tablet) 1 tab PO DAILY [facility] Last Admin: 01/09/25 09:05 Dose: 1 tab Documented By: HO.DOUBLEN Pt Own Medication ( Insulin Asp Prt- Insulin Aspart [ Novolog Mix 70-30 U- 100 Insuln] 30 unit SUBCUT BIDWM PRN PRN Reason: BLOOD GLUCOSE > 200 Pt Own Medication ( Insulin Asp Prt- Insulin Aspart [ Novolog Mix 70-30 U- 100 Insuln] 40 unit SUBCUT BIDWM PRN PRN Reason: BLOOD GLUCOSE > 300 Last Admin: 01/09/25 10:56 Dose: 30 unit Documented By: SHAWN Comments: per dr. arango Omeprazole (Omeprazole 20 Mg Capsule.) 20 mg PO BID@0630,1630 [facility] Last Admin: 01/09/25 05:33 Dose: 20 mg Documented By: BEATRICE Ondansetron HCl (Ondansetron Hcl 4 Mg/2 Ml Vial) 4 mg IVPUSH Q8H PRN PRN Reason: Nausea and Vomiting Sodium Chloride (0.9 % Sodium Chloride Flush 3 Ml Syringe) 3 ml IVFLUSH QSHIFT [facility] Last Admin: 01/09/25 09:04 Dose: 3 ml Documented By: SHAWN Sucralfate (Sucralfate 1 Gm Tablet) 1 gm PO TIDAC [facility] Last Admin: 01/09/25 09:04 Dose: 1 gm Documented By: SHAWN Tamsulosin HCl (Tamsulosin Hcl 0.4 Mg Capsule) 0.4 mg PO BEDTIME [facility] Last Admin: 01/08/25 23:11 Dose: 0.4 mg Documented By: BEATRICE Labs 01/08/25 09:32 01/09/25 09:26 Labs: Laboratory Results - last 24 hr 01/08/25 01/08/25 01/08/25 12:19 14:42 20:26 VBG pH 7.32 VBG pCO2 76 VBG pO2 57 VBG HCO3 40 H VBG O2 Saturation 81.0 VBG Base Excess 11.5 Anion Gap Estim Creat Clear Calc Estimated GFR POC Glucose 291 H Random Glucose Calcium B-Natriuretic Peptide Influenza Type A (PCR) NEGATIVE Influenza Type B (PCR) NEGATIVE RSV RNA Qual (PCR) NEGATIVE SARS-CoV-2 RNA (RT-PCR) NEGATIVE 01/08/25 01/09/25 01/09/25 23:06 07:33 09:26 VBG pH VBG pCO2 VBG pO2 VBG HCO3 VBG O2 Saturation VBG Base Excess Anion Gap 17 Estim Creat Clear Calc 44.3 Estimated GFR 38 POC Glucose 374 H* 277 H Random Glucose 332 H Calcium 9.1 B-Natriuretic Peptide 425 H Influenza Type A (PCR) Influenza Type B (PCR) RSV RNA Qual (PCR) SARS-CoV-2 RNA (RT-PCR) 01/09/25 01/09/25 10:48 11:18 VBG pH VBG pCO2 VBG pO2 VBG HCO3 VBG O2 Saturation VBG Base Excess Anion Gap Estim Creat Clear Calc Estimated GFR POC Glucose 386 H* 378 H* Random Glucose Calcium B-Natriuretic Peptide Influenza Type A (PCR) Influenza Type B (PCR) RSV RNA Qual (PCR) SARS-CoV-2 RNA (RT-PCR) Assessment and Plan (1) Acute hypoxic respiratory failure: Status: Inactive (2) CHF exacerbation: Status: Inactive Plan A 79-year-old male with a history of CAD, DM, Alzheimer's dementia, HLD, CKD stage 3, and chronic AFib, HFrEF, with frequent hospitalizations (3 since November 25), most recently from 12/24 to 12/26 for acute hypoxic respiratory failure due to CHF and bacterial pneumonia, presented to the ED three days after discharge for a similar presentation. He now presents with confusion and hypoxia and was found to have an HFrEF exacerbation. HFrEF: Recent echo showed a severely reduced LV ejection fraction of 20-25%. IV Bumex Monitor I/O, weight, BNP, and BMP. Cardiology evaluation if not improving. Acute hypoxic respiratory failure due to the above. Treat the underlying CHF; oxygen goal 92% or better. Confusion due to metabolic encephalopathy with underlying dementia., presently at his baseline CKD-3: Cardiorenal syndrome; creatinine within baseline. Diabetes with hyperglycemia: Continue home Novolog 70/30 bid (cannot substitute)--30 units fof BS > 200 and 40 units if > 300, admelog SSI and diabetic diet. HTN: Norvasc. Chronic AFib: Metoprolol; eliquis on hold due to hematuria CAD: ASA, statin, metoprolol. GERD: PPI. Dementia: Continue Memantine and Donepezil. Neuropathy: Gabapentin. Hematuria--CBI, clamp and change to regular montelongo urology consult pending DVT prophylaxis: Eliquis. Full code. Will discuss goals of care with the family. Admit for at least two midnights for acute hypoxic respiratory failure due to heart failure exacerbation. code: DNR/DNI Quality Stroke Does the patient have a stroke diagnosis?: No VTE Prior VTE?: No VTE Risk Level:: Medical - moderate - high VTE Device Contraindication: N/A - Device Ordered VTE Drug Contraindication: N/A - Med Ordered
[2025-01-09] MEDS: Bumetanide 1 MG/4 ML VIAL IVPUSH ×2 (12:08→18:00)
[2025-01-09 12:45] LABS: Hematocrit 28.9 % (42.0-52.0); Hemoglobin 8.9 g/dl (14.0-18.0); Mean Corpuscular HGB Conc 30.8 g/dl (31.0-36.0); Mean Corpuscular Hemoglobin 29.3 pg (27.0-33.0); Mean Corpuscular Volume 95.1 fL (80.0-98.0); Mean Platelet Volume 11.8 fL (9.4-12.4); Platelet Count 188 X10*3/uL (160-400); Red Blood Count 3.04 X10*6/uL (4.60-5.80); Red Cell Distribution Width 15.9 % (11.0-16.0)
[2025-01-09 16:32] LABS: Glucose, Whole Blood 190 mg/dL (60-115)
[2025-01-09 20:32] LABS: Glucose, Whole Blood 167 mg/dL (60-115)
[2025-01-09] MEDS: Atorvastatin Calcium 40 MG TABLET PO (21:01)
[2025-01-09] MEDS: Tamsulosin HCL 0.4 MG CAPSULE PO (21:01)
[2025-01-09] MEDS: Donepezil HCl 10 MG TABLET PO (21:01)
[2025-01-10] VITALS (10 sets, daily range): BP systolic 118–155; BP diastolic 68–84; PULSE 62–76; RESP 18–20; TEMP 36.1–36.9; O2SAT 93–97
[2025-01-10] MEDS: Omeprazole 20 MG CAPSULE.DR PO ×2 (05:32→16:42)
[2025-01-10 07:30] LABS: Glucose, Whole Blood 108 mg/dL (60-115)
[2025-01-10 08:35] LABS: Hematocrit 30.5 % (42.0-52.0); Hemoglobin 9.4 g/dl (14.0-18.0); Mean Corpuscular HGB Conc 30.8 g/dl (31.0-36.0); Mean Corpuscular Hemoglobin 29.5 pg (27.0-33.0); Mean Corpuscular Volume 95.6 fL (80.0-98.0); Mean Platelet Volume 12.3 fL (9.4-12.4); Platelet Count 175 X10*3/uL (160-400); Red Blood Count 3.19 X10*6/uL (4.60-5.80); Red Cell Distribution Width 15.8 % (11.0-16.0); White Blood Count 7.5 X10*3/uL (4.8-10.8)
[2025-01-10 09:01] LABS: Anion Gap 12 (12-20); Blood Urea Nitrogen 35 mg/dL (9-16); Calcium 8.8 mg/dL (8.4-10.2); Carbon Dioxide 35 mmol/L (22-29); Chloride 99 mmol/L (96-108); Creatinine Clr Calc Pharmacy 53.8; Estimated Glomerular Filt Rate 47; Glucose Random 114 mg/dL (60-115); Sodium 142 mmol/L (135-145)
[2025-01-10] MEDS: Gabapentin 400 MG CAPSULE 800 MG PO ×2 (09:06→20:44)
[2025-01-10] MEDS: Multivitamin TABLET 1 TAB PO (09:07)
[2025-01-10] MEDS: Memantine HCl 10 MG TABLET PO ×2 (09:07→20:44)
[2025-01-10] MEDS: Loratadine 10 MG TABLET PO (09:07)
[2025-01-10] MEDS: Metoprolol Tartrate 100 MG TABLET PO ×2 (09:07→20:44)
[2025-01-10] MEDS: Magnesium Oxide 400 MG TABLET PO (09:07)
[2025-01-10] MEDS: Isosorbide Mononitrate 60 MG TAB.ER.24H PO (09:07)
[2025-01-10] MEDS: Sucralfate 1 GM TABLET PO ×3 (09:07→16:42)
[2025-01-10] MEDS: Bumetanide 1 MG/4 ML VIAL IVPUSH ×2 (09:08→16:42)
[2025-01-10] MEDS: 0.9 % Sodium Chloride Flush 3 ML SYRINGE IVFLUSH ×3 (09:08→20:45)
[2025-01-10] MEDS: allopurinoL 100 MG TABLET 50 MG PO (09:08)
[2025-01-10 11:22] LABS: Glucose, Whole Blood 275 mg/dL (60-115)
--- NOTE | 2025-01-10 11:57 | P.PNIM_ITS ---
Subjective Subjective Date of Service: 01/10/25 Interval History: Seen in follow-up for acute hypoxic respiratory failure chronic respiratory failure, CHF exacerbation. Still on highflow but doing well, no sob, no chest pain. No more hematuria Physical Exam 2 Vital Signs: Vital Signs: Last Vital Signs Temp 97.2 F 01/10/25 11:40 Pulse 65 01/10/25 11:40 Resp 20 01/10/25 11:40 BP 124/73 01/10/25 11:40 Pulse Ox 97 01/10/25 11:40 O2 Del Method High Flow Nasal C annula 01/10/25 11:40 O2 Flow Rate 55 01/10/25 11:40 FiO2 60 01/10/25 11:40 Oxygen Flow Rate 4 01/08/25 08:25 BMI result Body Mass Index 35.6 Const: Other: General: Alert to self, no distress Resp: rales at bases, n CVS: S1,S2, iregular iregular, 1 + leg edema GI: +BS, NT, no distention Skin: No rash Neuro: motor grossly intact Psych: appropriate affect Objective Data Active Medications Acetaminophen (Acetaminophen 325 Mg Tablet) 650 mg PO Q6H PRN PRN Reason: Pain, Mild 1-3,fever,headache Al Hydroxide/Mg Hydroxide (Magnesium Hydrox/Alum Hydrox 30 Ml Oral.Susp) 5 ml PO Q6H PRN PRN Reason: Indigestion Allopurinol (Allopurinol 100 Mg Tablet) 50 mg PO DAILY [facility] Last Admin: 01/10/25 09:08 Dose: 50 mg Documented By: ANABEL Atorvastatin Calcium (Atorvastatin Calcium 40 Mg Tablet) 40 mg PO BEDTIME [facility] Last Admin: 01/09/25 21:01 Dose: 40 mg Documented By: JOHNIE Bumetanide (Bumetanide 1 Mg/4 Ml Vial) 1 mg IVPUSH BID@0900,1700 [facility]; Protocol Last Admin: 01/10/25 09:08 Dose: 1 mg Documented By: ANABEL Calcium Carbonate (Calcium Carbonate 750 Mg Tab.Chew) 750 mg PO Q4H PRN PRN Reason: Heartburn Dextrose (Dextrose 50 % 25 Gm/50 Ml Syringe) 25 gm IVPUSH Q15M PRN; Protocol PRN Reason: per Hypoglycemia Standing Ord. Diphenhydramine HCl (Diphenhydramine Hcl 25 Mg Capsule) 12.5 mg PO BEDTIME PRN PRN Reason: Allergy Symptoms Donepezil HCl (Donepezil Hcl 10 Mg Tablet) 10 mg PO BEDTIME [facility] Last Admin: 01/09/25 21:01 Dose: 10 mg Documented By: JOHNIE Gabapentin (Gabapentin 400 Mg Capsule) 800 mg PO BID [facility] Last Admin: 01/10/25 09:06 Dose: 800 mg Documented By: ANABEL Glucose (Glucose Gel 15 Gm Gel..Gram.) 15 gm PO Q15M PRN; Protocol PRN Reason: per Hypoglycemia Standing Ord. Insulin Human Lispro (Insulin Lispro 100 Unit/Ml 3 Ml Vial) 0 unit SUBCUT QIDACHS [facility]; Protocol Last Admin: 01/10/25 07:27 Dose: Not Given Documented By: ANABEL Non-Admin Reason: No Insulin Coverage Isosorbide Mononitrate (Isosorbide Mononitrate 60 Mg Tab.Er.24h) 60 mg PO DAILY [facility]; Protocol Last Admin: 01/10/25 09:07 Dose: 60 mg Documented By: ANABEL Loratadine (Loratadine 10 Mg Tablet) 10 mg PO DAILY [facility] Last Admin: 01/10/25 09:07 Dose: 10 mg Documented By: ANABEL Magnesium Hydroxide (Milk Of Magnesia 30 Ml Oral.Susp) 30 ml PO DAILY PRN PRN Reason: Constipation Magnesium Oxide (Magnesium Oxide 400 Mg Tablet) 400 mg PO DAILY [facility] Last Admin: 01/10/25 09:07 Dose: 400 mg Documented By: ANABEL Melatonin (Melatonin 3 Mg Tablet) 6 mg PO BEDTIME PRN PRN Reason: Insomnia Memantine (Memantine Hcl 10 Mg Tablet) 10 mg PO BID [facility] Last Admin: 01/10/25 09:07 Dose: 10 mg Documented By: ANABEL Metoprolol Tartrate (Metoprolol Tartrate 100 Mg Tablet) 100 mg PO BID [facility]; Protocol Last Admin: 01/10/25 09:07 Dose: 100 mg Documented By: ANABEL Multi-Ingred Cream/Lotion/Oil/Oint (Mineral Oil/Petrolatum,White 106 Gm Tube) 1 appl TOPICAL DAILY PRN PRN Reason: Dry Skin Multivitamins/Vitamin C (Multivitamin Tablet) 1 tab PO DAILY [facility] Last Admin: 01/10/25 09:07 Dose: 1 tab Documented By: ANABEL Pt Own Medication ( Insulin Asp Prt- Insulin Aspart [ Novolog Mix 70-30 U- 100 Insuln] 30 unit SUBCUT BIDWM PRN PRN Reason: BLOOD GLUCOSE > 200 Pt Own Medication ( Insulin Asp Prt- Insulin Aspart [ Novolog Mix 70-30 U- 100 Insuln] 40 unit SUBCUT BIDWM PRN PRN Reason: BLOOD GLUCOSE > 300 Last Admin: 01/09/25 10:56 Dose: 30 unit Documented By: SHAWN Comments: per dr. arango Omeprazole (Omeprazole 20 Mg Shree.) 20 mg PO BID@0630,1630 [facility] Last Admin: 01/10/25 05:32 Dose: 20 mg Documented By: JOHNIE Ondansetron HCl (Ondansetron Hcl 4 Mg/2 Ml Vial) 4 mg IVPUSH Q8H PRN PRN Reason: Nausea and Vomiting Sodium Chloride (0.9 % Sodium Chloride Flush 3 Ml Syringe) 3 ml IVFLUSH QSHIFT [facility] Last Admin: 01/10/25 09:08 Dose: 3 ml Documented By: ANABEL Sucralfate (Sucralfate 1 Gm Tablet) 1 gm PO TIDAC [facility] Last Admin: 01/10/25 09:07 Dose: 1 gm Documented By: ANABEL Tamsulosin HCl (Tamsulosin Hcl 0.4 Mg Capsule) 0.4 mg PO BEDTIME [facility] Last Admin: 01/09/25 21:01 Dose: 0.4 mg Documented By: JOHNIE Labs 01/10/25 08:12 01/10/25 08:12 Labs: Laboratory Results - last 24 hr 01/09/25 01/09/25 01/09/25 12:13 16:25 20:23 MCV 95.1 MCH 29.3 MCHC 30.8 L RDW 15.9 Plt Count 188 MPV 11.8 Absolute Nucleated RBC 0.000 Nucleated RBC % (auto) 0.0 Anion Gap Estim Creat Clear Calc Estimated GFR POC Glucose 190 H 167 H Random Glucose Calcium 01/10/25 01/10/25 01/10/25 07:22 08:12 11:11 MCV 95.6 MCH 29.5 MCHC 30.8 L RDW 15.8 Plt Count 175 MPV 12.3 Absolute Nucleated RBC 0.000 Nucleated RBC % (auto) 0.0 Anion Gap 12 Estim Creat Clear Calc 53.8 Estimated GFR 47 POC Glucose 108 275 H Random Glucose 114 Calcium 8.8 Microbiology Microbiology Results: Microbiology 01/08/25 09:48 Blood Culture - Preliminary Blood - Venous No growth after 48 hours. 01/08/25 09:32 Blood Culture - Preliminary Blood - Venous No growth after 48 hours. Assessment and Plan (1) Acute hypoxic respiratory failure: Status: Inactive (2) CHF exacerbation: Status: Inactive Plan A 79-year-old male with a history of CAD, DM, Alzheimer's dementia, HLD, CKD stage 3, and chronic AFib, HFrEF, with frequent hospitalizations (3 since November 25), most recently from 12/24 to 12/26 for acute hypoxic respiratory failure due to CHF and bacterial pneumonia, presented to the ED three days after discharge for a similar presentation. He now presents with confusion and hypoxia and was found to have an HFrEF exacerbation. HFrEF: Recent echo showed a severely reduced LV ejection fraction of 20-25%. IV Bumex Monitor I/O, weight, BNP, and BMP. Cardiology evaluation if not improving. Wean off high flow Acute hypoxic respiratory failure due to the above. Treat the underlying CHF; oxygen goal 92% or better. Confusion due to metabolic encephalopathy with underlying dementia., presently at his baseline CKD-3: Cardiorenal syndrome; creatinine within baseline. Diabetes with hyperglycemia: Continue home Novolog 70/30 bid (cannot substitute)--30 units fof BS > 200 and 40 units if > 300, admelog SSI and diabetic diet. HTN: Norvasc. Chronic AFib: Metoprolol; eliquis on hold due to hematuria CAD: ASA, statin, metoprolol. GERD: PPI. Dementia: Continue Memantine and Donepezil. Neuropathy: Gabapentin. Hematuria--CBI, clamp and change to regular [facility] urology consult pending DVT prophylaxis: Eliquis. Full code. Will discuss goals of care with the family. Admit for at least two midnights for acute hypoxic respiratory failure due to heart failure exacerbation. code: DNR/DNI Quality Stroke Does the patient have a stroke diagnosis?: No VTE Prior VTE?: No VTE Risk Level:: Medical - moderate - high VTE Device Contraindication: N/A - Device Ordered VTE Drug Contraindication: N/A - Med Ordered
--- NOTE | 2025-01-10 12:21 | PC.RT ---
Pt taken off HFNC and trialed on faye NC. Pt titrated down to 4L NC SATs 94%. and RN aware.
--- NOTE | 2025-01-10 12:24 | P.CNUR_ITS ---
History of Present Illness Consult details Consult date: 01/10/25 Narrative: CC: hematuria 79-year-old male Extensive coronary history Re presentation for acute on chronic heart failure with reduced ejection fraction Presentation this visit for decreased oxygen saturation with CHF Admitted for IV Lasix and high-flow oxygen Bragg catheter placed with some degree of hematuria only 200 cc residual Hematuria has resolved on 24 hours of CBI Recommend Bragg catheter discharge once IV Lasix therapy is ceased Review of Systems 2 Constitutional: Constitutional: Reports as per HPI and Reports no additional constitutional complaints Cardiovascular: Cardiovascular: Reports as per HPI and Reports no additional cardiovascular complaints Respiratory: Respiratory: Reports as per HPI and Reports no additional respiratory complaints Gastrointestinal: Gastrointestinal: Reports as per HPI and Reports no additional gastrointestinal complaints Genitourinary: Genitourinary: Reports as per HPI Musculoskeletal: Musculoskeletal: Reports no additional musculoskeletal complaints and Reports as per HPI Neurologic: Reports system reviewed and no additional complaints, except as documented and Reports as per HPI [facility] Past Medical History Medical History CAD (coronary artery disease) Trash foot Diabetic foot infection Heart failure with preserved ejection fraction HLD (hyperlipidemia) Diabetes mellitus Atrial fibrillation NSTEMI (non-ST elevated myocardial infarction) Alzheimer's dementia Kidney failure Diabetes HTN (hypertension) Family History Family History Father No problems noted. Mother No problems noted. Surgical History Surgical History No pertinent past surgical history Social History Social History Household Members: Family Household Members Other:: sons and daughter in law Housing: Apartment Do you presently have visiting nurse or other home services: Yes Unable to assess alcohol history related to: Unable to respond Alcohol intake: never Patient Tobacco Use Status: Never used Tobacco e-Cigarette/Vaping Use: Never Used Second Hand Smoke Exposure: No Advance Directives Date on File: 09/06/21 service: No Current occupational status: retired [employer] Allergies Allergy/AdvReac Type Severity Reaction Status Date / Time No Known Allergies Allergy Verified 01/08/25 08:29 Active Medications: Current Medications Acetaminophen (Acetaminophen 325 Mg Tablet) 650 mg PO Q6H PRN PRN Reason: Pain, Mild 1-3,fever,headache Al Hydroxide/Mg Hydroxide (Magnesium Hydrox/Alum Hydrox 30 Ml Oral.Susp) 5 ml PO Q6H PRN PRN Reason: Indigestion Allopurinol (Allopurinol 100 Mg Tablet) 50 mg PO DAILY [facility] Last Admin: 01/10/25 09:08 Dose: 50 mg Atorvastatin Calcium (Atorvastatin Calcium 40 Mg Tablet) 40 mg PO BEDTIME [facility] Last Admin: 01/09/25 21:01 Dose: 40 mg Bumetanide (Bumetanide 1 Mg/4 Ml Vial) 1 mg IVPUSH BID@0900,1700 [facility]; Protocol Last Admin: 01/10/25 09:08 Dose: 1 mg Calcium Carbonate (Calcium Carbonate 750 Mg Tab.Chew) 750 mg PO Q4H PRN PRN Reason: Heartburn Dextrose (Dextrose 50 % 25 Gm/50 Ml Syringe) 25 gm IVPUSH Q15M PRN; Protocol PRN Reason: per Hypoglycemia Standing Ord. Diphenhydramine HCl (Diphenhydramine Hcl 25 Mg Capsule) 12.5 mg PO BEDTIME PRN PRN Reason: Allergy Symptoms Donepezil HCl (Donepezil Hcl 10 Mg Tablet) 10 mg PO BEDTIME [facility] Last Admin: 01/09/25 21:01 Dose: 10 mg Gabapentin (Gabapentin 400 Mg Capsule) 800 mg PO BID [facility] Last Admin: 01/10/25 09:06 Dose: 800 mg Glucose (Glucose Gel 15 Gm Gel..Gram.) 15 gm PO Q15M PRN; Protocol PRN Reason: per Hypoglycemia Standing Ord. Insulin Human Lispro (Insulin Lispro 100 Unit/Ml 3 Ml Vial) 0 unit SUBCUT QIDACHS [facility]; Protocol Last Admin: 01/10/25 07:27 Dose: Not Given Isosorbide Mononitrate (Isosorbide Mononitrate 60 Mg Tab.Er.24h) 60 mg PO DAILY [facility]; Protocol Last Admin: 01/10/25 09:07 Dose: 60 mg Loratadine (Loratadine 10 Mg Tablet) 10 mg PO DAILY [facility] Last Admin: 01/10/25 09:07 Dose: 10 mg Magnesium Hydroxide (Milk Of Magnesia 30 Ml Oral.Susp) 30 ml PO DAILY PRN PRN Reason: Constipation Magnesium Oxide (Magnesium Oxide 400 Mg Tablet) 400 mg PO DAILY [facility] Last Admin: 01/10/25 09:07 Dose: 400 mg Melatonin (Melatonin 3 Mg Tablet) 6 mg PO BEDTIME PRN PRN Reason: Insomnia Memantine (Memantine Hcl 10 Mg Tablet) 10 mg PO BID [facility] Last Admin: 01/10/25 09:07 Dose: 10 mg Metoprolol Tartrate (Metoprolol Tartrate 100 Mg Tablet) 100 mg PO BID [facility]; Protocol Last Admin: 01/10/25 09:07 Dose: 100 mg Multi-Ingred Cream/Lotion/Oil/Oint (Mineral Oil/Petrolatum,White 106 Gm Tube) 1 appl TOPICAL DAILY PRN PRN Reason: Dry Skin Multivitamins/Vitamin C (Multivitamin Tablet) 1 tab PO DAILY [facility] Last Admin: 01/10/25 09:07 Dose: 1 tab Pt Own Medication ( Insulin Asp Prt- Insulin Aspart [ Novolog Mix 70-30 U- 100 Insuln] 30 unit SUBCUT BIDWM PRN PRN Reason: BLOOD GLUCOSE > 200 Pt Own Medication ( Insulin Asp Prt- Insulin Aspart [ Novolog Mix 70-30 U- 100 Insuln] 40 unit SUBCUT BIDWM PRN PRN Reason: BLOOD GLUCOSE > 300 Last Admin: 01/09/25 10:56 Dose: 30 unit Omeprazole (Omeprazole 20 Mg Capsule.Dr) 20 mg PO BID@0630,1630 [facility] Last Admin: 01/10/25 05:32 Dose: 20 mg Ondansetron HCl (Ondansetron Hcl 4 Mg/2 Ml Vial) 4 mg IVPUSH Q8H PRN PRN Reason: Nausea and Vomiting Sodium Chloride (0.9 % Sodium Chloride Flush 3 Ml Syringe) 3 ml IVFLUSH QSHIFT [facility] Last Admin: 01/10/25 09:08 Dose: 3 ml Sucralfate (Sucralfate 1 Gm Tablet) 1 gm PO TIDAC [facility] Last Admin: 01/10/25 09:07 Dose: 1 gm Tamsulosin HCl (Tamsulosin Hcl 0.4 Mg Capsule) 0.4 mg PO BEDTIME [facility] Last Admin: 01/09/25 21:01 Dose: 0.4 mg Home Medications ?Medication ?Instructions ?Recorded ?Confirmed ?Last Taken ?Type apixaban 5 mg tablet (Eliquis) 5 mg PO BID 09/05/21 01/08/25 11/25/24 History donepezil 10 mg tablet 1 tab PO BEDTIME 09/05/21 01/08/25 11/24/24 History elmlnvnm-hdl-jjzub acid 0.4 1 tab PO DAILY 09/05/21 01/08/25 11/25/24 History mg-lycopene 300 mcg-lutein 250 mcg tablet ([employer]ite Senior) allopurinol 100 mg tablet 50 mg PO DAILY gout pain 10/07/21 01/08/25 11/25/24 History insulin syringe-needle U-100 1 mL #10 ea 12/22/21 05/08/22 Unknown History 31 gauge x 04/10 memantine 10 mg tablet 10 mg PO BID 05/08/22 01/08/25 11/25/24 History metoprolol tartrate 100 mg tablet 100 mg PO BID 05/08/22 01/08/25 11/25/24 History cetirizine 10 mg tablet 10 mg PO DAILY congestion 08/17/23 01/08/25 11/25/24 History gabapentin 800 mg tablet 800 mg PO BID 05/17/24 01/08/25 11/25/24 History omeprazole 20 mg capsule,delayed 20 mg PO BID@0630,1630 05/17/24 01/08/25 11/25/24 History release sucralfate 1 gram tablet 1 g PO TIDAC 05/17/24 01/08/25 11/25/24 History magnesium oxide 250 mg PO DAILY 11/25/24 01/08/25 11/25/24 History insulin aspar prt-insulin aspart 76 unit subcut BIDWM 12/24/24 01/08/25 Unknown History 100 unit/mL (70-30) subcutaneous soln (Novolog Mix 70-30 U-100 Insuln) aluminum-mag hydroxide-simethicone 5 ml PO Q6H PRN Indigestion 01/08/25 01/08/25 Unknown History 200 mg-200 mg-20 mg/5 mL oral susp (Nell-Lanta) diphenhydramine HCl 25 mg tablet 12.5 mg PO BEDTIME PRN Allergy 01/08/25 01/08/25 Unknown History (Nell-Dryl) Symptoms mineral oil-hydrophil petrolat 1 appl topical DAILY PRN Dry Skin 01/08/25 01/08/25 Unknown History topical ointment (petrolatum topical ointment) triamcinolone acetonide 0.1 % 1 appl topical BID 01/08/25 01/08/25 Unknown History topical cream Physical Exam 2 Vital Signs: Vital Signs: Last Vital Signs Temp 97.2 F 01/10/25 11:40 Pulse 65 01/10/25 11:40 Resp 20 01/10/25 11:40 BP 124/73 01/10/25 11:40 Pulse Ox 97 01/10/25 11:40 O2 Del Method High Flow Nasal C annula 01/10/25 11:40 O2 Flow Rate 55 01/10/25 11:40 FiO2 60 01/10/25 11:40 Oxygen Flow Rate 4 01/08/25 08:25 BMI result Body Mass Index 35.6 Const: General: cooperative, healthy appearing, comfortable and no acute distress Orientation/consciousness: patient oriented x3 HEENT: Face and sinus: Yes normal facial exam Mouth: moist mucous membranes Neck: Neck: Yes normal visual inspection, Yes full ROM and Yes trachea midline Chest: Chest palpation & inspection: normal inspection of the chest Resp: Effort & Inspection: normal respiratory effort, able to speak in complete sentences and no respiratory distress GI: Inspection: Yes normal to inspection Back/Spine/Pelvis: Cervical Spine: normal cervical lordosis Thoracic/Lumbar Spine: thoracic and lumbar spine normal to inspection Skin: General skin exam: no rashes or lesions noted Neuro: General: patient oriented x3, tone normal and moves all extremities Extrem: General: Yes normal to inspection and Yes capillary refill normal Results Labs 01/10/25 08:12 01/10/25 08:12 Labs: Abnormal lab results 01/09/25 01/09/25 01/09/25 Range/Units 12:13 16:25 20:23 RBC 3.04 L (4.60-5.80) X10*6/uL Hgb 8.9 L (14.0-18.0) g/dl Hct 28.9 L (42.0-52.0) % MCHC 30.8 L (31.0-36.0) g/dl Carbon Dioxide (22-29) mmol/L BUN (9-16) mg/dL Creatinine (0.5-1.4) mg/dL POC Glucose 190 H 167 H (60-115) mg/dL 01/10/25 01/10/25 Range/Units 08:12 11:11 RBC 3.19 L (4.60-5.80) X10*6/uL Hgb 9.4 L (14.0-18.0) g/dl Hct 30.5 L (42.0-52.0) % MCHC 30.8 L (31.0-36.0) g/dl Carbon Dioxide 35 H (22-29) mmol/L BUN 35 H (9-16) mg/dL Creatinine 1.44 H (0.5-1.4) mg/dL POC Glucose 275 H (60-115) mg/dL Short CBC 01/09/25 01/10/25 Range/Units 12:13 08:12 WBC 8.0 7.5 (4.8-10.8) X10*3/uL Hgb 8.9 L 9.4 L (14.0-18.0) g/dl Hct 28.9 L 30.5 L (42.0-52.0) % Plt Count 188 175 (160-400) X10*3/uL BMP 01/10/25 08:12 Sodium 142 Potassium 4.0 D Chloride 99 Carbon Dioxide 35 H BUN 35 H Creatinine 1.44 H Calcium 8.8 All other labs normal. Assessment and Plan (1) Gross hematuria: Status: Acute Plan DC CBI when clear DC Bragg catheter when IV Lasix therapy complete Procedures Date of Service Date of Service: 01/10/25
--- NOTE | 2025-01-10 12:38 | MHC.SL.SWA ---
Speech Pathologist Impression: Risk of Aspiration Due to: History of Pneumonia Dysphasia Diet Status: Liquid Consistency and Strategies for Safe Swallow: Liquid Intake Recommendation: Thin Liquid Intake Strategies: Small Sips Solid Food Consistency: Dietary Recommendations: Regular Additional Modifications to Solid Foods: Given observed slow, methodical chewing, patient should be encouraged to elect softer foods from the regular menu, and avoid tough, difficult to chew solids. It is recommended that while patient is eating for his HFNC to be reduced to less than 40 L, and or switch to NC if possible during meal, with breaks with OXY mask. Oral Medication Intake: Whole with Liquid Please contact the pharmacy regarding appropriate crushable or liquid drug formulations that are available whenever modified delivery is recommended. Compensatory Strategies and Precautions to be Taken for Safe Swallow: Sitting Upright (90 deg) Liquids from Cup Liquids from Straw Small Bites and Sips Alternate Liquids/Solids Supervision While Eating and Drinking for Safe Swallow: None Needed Foods to Avoid: Difficult to chew solids, encourage patient to elect softer foods from regular menu Swallowing Recommended Treatments: Compens. Strategy Educat. Recommendation for Speech: NA:Typical Evaluation Comment: WALLPAPER INSPECTOR AND SHIPPER called in to see patient this morning due to concerns/observations of patient coughing while eating his breakfast. RN reported patient did have HFNC on this morning, current flow is 45L. RT agreed to remove HFNC for this assessment and replaced with OXY mask. Patient presented with most aspects of swallow WFL, has a mildly prolonged pattern of mastication on harder textures. It is recommended that he continue on current diet of REGULAR with THIN liquids, pills whole with liquid. IF possible, it is recommended that when taking meals, HFNC be reduced to at least 40L (studies indicate aspiration risk increases @ flow rates >40L) or use a Cannula + oxymask during meals, with frequent breaks to oxymask for respiration breaks. WALLPAPER INSPECTOR AND SHIPPER to f/u X1 to assure patient's continuing toleration of least restrictive diet. Frequency/Duration: Date Range for Service Req: Timeline to reassess: Tin Flopper Clinican/Clinical Fellow: No Supervisory Statement: I have reviewed and agree with the student/clinical fellow's documentation: N/A Speech Language Pathologist: Toña Fragoso M.A., [facility]-WALLPAPER INSPECTOR AND SHIPPER
[2025-01-10] MEDS: INSULIN ASP PRT INSULIN ASPART 40 EACH SUBCUT ×2 (12:40→20:44)
[2025-01-10] MEDS: Insulin Lispro 100 UNIT/ML 3 ML VIAL SUBCUT ×3 (12:41→20:44)
[2025-01-10 16:40] LABS: Glucose, Whole Blood 198 mg/dL (60-115)
[2025-01-10 20:18] LABS: Glucose, Whole Blood 312 mg/dL (60-115)
[2025-01-10] MEDS: Atorvastatin Calcium 40 MG TABLET PO (20:44)
[2025-01-10] MEDS: Donepezil HCl 10 MG TABLET PO (20:44)
[2025-01-10] MEDS: Tamsulosin HCL 0.4 MG CAPSULE PO (20:44)
[2025-01-10] MEDS: Melatonin 3 MG TABLET 6 MG PO (20:52)
[2025-01-10 23:07] LABS: Glucose, Whole Blood 267 mg/dL (60-115)
[2025-01-11] VITALS (11 sets, daily range): BP systolic 123–159; BP diastolic 65–83; PULSE 35–87; RESP 18–22; TEMP 36.1–36.6; O2SAT 92–98
[2025-01-11] MEDS: Omeprazole 20 MG CAPSULE.DR PO ×2 (05:26→17:06)
[2025-01-11 07:33] LABS: Anion Gap 13 (12-20); Blood Urea Nitrogen 33 mg/dL (9-16); Calcium 8.5 mg/dL (8.4-10.2); Carbon Dioxide 33 mmol/L (22-29); Chloride 98 mmol/L (96-108); Creatinine Clr Calc Pharmacy 58.3; Estimated Glomerular Filt Rate 52; Glucose Random 73 mg/dL (60-115); Potassium 4.2 mmol/L (3.3-5.1); Sodium 140 mmol/L (135-145)
[2025-01-11 07:35] LABS: Glucose, Whole Blood 72 mg/dL (60-115)
[2025-01-11] MEDS: Magnesium Oxide 400 MG TABLET PO (08:58)
[2025-01-11] MEDS: Isosorbide Mononitrate 60 MG TAB.ER.24H PO (08:58)
[2025-01-11] MEDS: Bumetanide 1 MG TABLET 2 MG PO ×2 (08:58→17:06)
[2025-01-11] MEDS: Multivitamin TABLET 1 TAB PO (08:58)
[2025-01-11] MEDS: Gabapentin 400 MG CAPSULE 800 MG PO ×2 (08:58→22:05)
[2025-01-11] MEDS: Metoprolol Tartrate 100 MG TABLET PO ×2 (08:58→22:06)
[2025-01-11] MEDS: allopurinoL 100 MG TABLET 50 MG PO (08:58)
[2025-01-11] MEDS: Sucralfate 1 GM TABLET PO ×3 (08:59→17:06)
[2025-01-11] MEDS: 0.9 % Sodium Chloride Flush 3 ML SYRINGE IVFLUSH ×3 (08:59→22:07)
[2025-01-11] MEDS: Loratadine 10 MG TABLET PO (08:59)
[2025-01-11] MEDS: Memantine HCl 10 MG TABLET PO ×2 (08:59→22:07)
--- NOTE | 2025-01-11 10:14 | P.PNIM_ITS ---
Subjective Subjective Date of Service: 01/11/25 Interval History: Seen in follow-up for acute hypoxic respiratory failure chronic respiratory failure, CHF exacerbation. off high flow and doing well on nasal cannula, no repiratory distress. no more hematuria Physical Exam 2 Vital Signs: Vital Signs: Last Vital Signs Temp 97.4 F 01/11/25 08:00 Pulse 68 01/11/25 08:00 Resp 22 H 01/11/25 08:00 BP 149/67 H 01/11/25 08:00 Pulse Ox 96 01/11/25 08:00 O2 Del Method Nasal Cannula 01/11/25 08:00 O2 Flow Rate 5 01/11/25 08:00 FiO2 60 01/10/25 11:40 Oxygen Flow Rate 4 01/08/25 08:25 BMI result Body Mass Index 35.6 Const: Other: General: Alert to self, no distress Resp: rales at bases, n CVS: S1,S2, iregular iregular, 1 + leg edema GI: +BS, NT, no distention Skin: No rash Neuro: motor grossly intact Psych: appropriate affect Objective Data Active Medications Acetaminophen (Acetaminophen 325 Mg Tablet) 650 mg PO Q6H PRN PRN Reason: Pain, Mild 1-3,fever,headache Al Hydroxide/Mg Hydroxide (Magnesium Hydrox/Alum Hydrox 30 Ml Oral.Susp) 5 ml PO Q6H PRN PRN Reason: Indigestion Allopurinol (Allopurinol 100 Mg Tablet) 50 mg PO DAILY [facility] Last Admin: 01/11/25 08:58 Dose: 50 mg Documented By: ANABEL Apixaban (Apixaban 5 Mg Tablet) 5 mg PO BID [facility] Atorvastatin Calcium (Atorvastatin Calcium 40 Mg Tablet) 40 mg PO BEDTIME [facility] Last Admin: 01/10/25 20:44 Dose: 40 mg Documented By: JOHNIE Bumetanide (Bumetanide 1 Mg Tablet) 2 mg PO BID@0800,1700 [facility]; Protocol Last Admin: 01/11/25 08:58 Dose: 2 mg Documented By: ANABEL Calcium Carbonate (Calcium Carbonate 750 Mg Tab.Chew) 750 mg PO Q4H PRN PRN Reason: Heartburn Dextrose (Dextrose 50 % 25 Gm/50 Ml Syringe) 25 gm IVPUSH Q15M PRN; Protocol PRN Reason: per Hypoglycemia Standing Ord. Diphenhydramine HCl (Diphenhydramine Hcl 25 Mg Capsule) 12.5 mg PO BEDTIME PRN PRN Reason: Allergy Symptoms Donepezil HCl (Donepezil Hcl 10 Mg Tablet) 10 mg PO BEDTIME [facility] Last Admin: 01/10/25 20:44 Dose: 10 mg Documented By: JOHNIE Gabapentin (Gabapentin 400 Mg Capsule) 800 mg PO BID [facility] Last Admin: 01/11/25 08:58 Dose: 800 mg Documented By: ANABEL Glucose (Glucose Gel 15 Gm Gel..Gram.) 15 gm PO Q15M PRN; Protocol PRN Reason: per Hypoglycemia Standing Ord. Insulin Human Lispro (Insulin Lispro 100 Unit/Ml 3 Ml Vial) 0 unit SUBCUT QIDACHS [facility]; Protocol Last Admin: 01/11/25 07:35 Dose: Not Given Documented By: ANABEL Non-Admin Reason: No Insulin Coverage Isosorbide Mononitrate (Isosorbide Mononitrate 60 Mg Tab.Er.24h) 60 mg PO DAILY [facility]; Protocol Last Admin: 01/11/25 08:58 Dose: 60 mg Documented By: ANABEL Loratadine (Loratadine 10 Mg Tablet) 10 mg PO DAILY [facility] Last Admin: 01/11/25 08:59 Dose: 10 mg Documented By: ANABEL Magnesium Hydroxide (Milk Of Magnesia 30 Ml Oral.Susp) 30 ml PO DAILY PRN PRN Reason: Constipation Magnesium Oxide (Magnesium Oxide 400 Mg Tablet) 400 mg PO DAILY [facility] Last Admin: 01/11/25 08:58 Dose: 400 mg Documented By: ANABEL Melatonin (Melatonin 3 Mg Tablet) 6 mg PO BEDTIME PRN PRN Reason: Insomnia Last Admin: 01/10/25 20:52 Dose: 6 mg Documented By: JOHNIE Memantine (Memantine Hcl 10 Mg Tablet) 10 mg PO BID [facility] Last Admin: 01/11/25 08:59 Dose: 10 mg Documented By: ANABEL Metoprolol Tartrate (Metoprolol Tartrate 100 Mg Tablet) 100 mg PO BID [facility]; Protocol Last Admin: 01/11/25 08:58 Dose: 100 mg Documented By: ANABEL Multi-Ingred Cream/Lotion/Oil/Oint (Mineral Oil/Petrolatum,White 106 Gm Tube) 1 appl TOPICAL DAILY PRN PRN Reason: Dry Skin Multivitamins/Vitamin C (Multivitamin Tablet) 1 tab PO DAILY [facility] Last Admin: 01/11/25 08:58 Dose: 1 tab Documented By: ANABEL Pt Own Medication ( Insulin Asp Prt- Insulin Aspart [ Novolog Mix 70-30 U- 100 Insuln] 30 unit SUBCUT BIDWM PRN PRN Reason: BLOOD GLUCOSE > 200 Pt Own Medication ( Insulin Asp Prt- Insulin Aspart [ Novolog Mix 70-30 U- 100 Insuln] 40 unit SUBCUT BIDWM PRN PRN Reason: BLOOD GLUCOSE > 300 Last Admin: 01/10/25 20:44 Dose: 40 unit Documented By: JOHNIE Omeprazole (Omeprazole 20 Mg Capsule.) 20 mg PO BID@0630,1630 [facility] Last Admin: 01/11/25 05:26 Dose: 20 mg Documented By: JOHNIE Ondansetron HCl (Ondansetron Hcl 4 Mg/2 Ml Vial) 4 mg IVPUSH Q8H PRN PRN Reason: Nausea and Vomiting Sodium Chloride (0.9 % Sodium Chloride Flush 3 Ml Syringe) 3 ml IVFLUSH QSHIFT [facility] Last Admin: 01/11/25 08:59 Dose: 3 ml Documented By: ANABEL Sucralfate (Sucralfate 1 Gm Tablet) 1 gm PO TIDAC [facility] Last Admin: 01/11/25 08:59 Dose: 1 gm Documented By: ANABEL Tamsulosin HCl (Tamsulosin Hcl 0.4 Mg Capsule) 0.4 mg PO BEDTIME [facility] Last Admin: 01/10/25 20:44 Dose: 0.4 mg Documented By: JOHNIE Labs 01/10/25 08:12 01/11/25 07:02 Labs: Laboratory Results - last 24 hr 01/10/25 01/10/25 01/10/25 11:11 16:35 20:05 Anion Gap Estim Creat Clear Calc Estimated GFR POC Glucose 275 H 198 H 312 H Random Glucose Calcium 01/10/25 01/11/25 01/11/25 23:04 07:02 07:29 Anion Gap 13 Estim Creat Clear Calc 58.3 Estimated GFR 52 POC Glucose 267 H 72 Random Glucose 73 Calcium 8.5 Microbiology Microbiology Results: Microbiology 01/08/25 09:48 Blood Culture - Preliminary Blood - Venous No growth after 48 hours. 01/08/25 09:32 Blood Culture - Preliminary Blood - Venous No growth after 48 hours. Assessment and Plan (1) Acute hypoxic respiratory failure: Status: Inactive (2) CHF exacerbation: Status: Inactive Plan A 79-year-old male with a history of CAD, DM, Alzheimer's dementia, HLD, CKD stage 3, and chronic AFib, HFrEF, with frequent hospitalizations (3 since November 25), most recently from 12/24 to 12/26 for acute hypoxic respiratory failure due to CHF and bacterial pneumonia, presented to the ED three days after discharge for a similar presentation. He now presents with confusion and hypoxia and was found to have an HFrEF exacerbation. HFrEF: Recent echo showed a severely reduced LV ejection fraction of 20-25%. IV Bumex to PO Bumex today Monitor I/O, weight, BNP, and BMP. Cardiology evaluation if not improving. Titrate O2 to 2 liters Acute hypoxic respiratory failure due to the above. Treat the underlying CHF; oxygen goal 92% or better. Confusion due to metabolic encephalopathy with underlying dementia., presently at his baseline CKD-3: Cardiorenal syndrome; creatinine within baseline. Diabetes with hyperglycemia: Continue home Novolog 70/30 bid (cannot substitute)--30 units fof BS > 200 and 40 units if > 300, admelog SSI and diabetic diet. HTN: Norvasc. Chronic AFib: rate controlled, continue metoprolol. Restart eliquis CAD: ASA, statin, metoprolol. GERD: PPI. Dementia: Continue Memantine and Donepezil. Neuropathy: Gabapentin. Hematuria--resolved, cbi stopped DVT prophylaxis: Eliquis. Full code: DNR/DNI Quality Stroke Does the patient have a stroke diagnosis?: No VTE Prior VTE?: No VTE Risk Level:: Medical - moderate - high VTE Device Contraindication: N/A - Device Ordered VTE Drug Contraindication: N/A - Med Ordered
[2025-01-11 11:38] LABS: Glucose, Whole Blood 258 mg/dL (60-115)
[2025-01-11] MEDS: INSULIN ASP PRT INSULIN ASPART 40 EACH SUBCUT (11:52)
[2025-01-11] MEDS: Insulin Lispro 100 UNIT/ML 3 ML VIAL SUBCUT ×3 (11:52→22:05)
[2025-01-11] MEDS: Apixaban 5 MG TABLET PO ×2 (11:53→22:07)
[2025-01-11 16:54] LABS: Glucose, Whole Blood 180 mg/dL (60-115)
--- NOTE | 2025-01-11 19:45 | PC.NURSE ---
provided daughter Migdalia update through phone call this morning during med pass.
[2025-01-11 20:04] LABS: Glucose, Whole Blood 236 mg/dL (60-115)
[2025-01-11 21:59] LABS: Glucose, Whole Blood 232 mg/dL (60-115)
[2025-01-11] MEDS: Atorvastatin Calcium 40 MG TABLET PO (22:05)
[2025-01-11] MEDS: Acetaminophen 325 MG TABLET 650 MG PO (22:06)
[2025-01-11] MEDS: Donepezil HCl 10 MG TABLET PO (22:06)
[2025-01-11] MEDS: INSULIN ASP PRT INSULIN ASPART 30 EACH SUBCUT (22:07)
[2025-01-11] MEDS: Melatonin 3 MG TABLET 6 MG PO (22:07)
[2025-01-11] MEDS: Tamsulosin HCL 0.4 MG CAPSULE PO (22:07)
[2025-01-11 23:32] LABS: Glucose, Whole Blood 226 mg/dL (60-115)
[2025-01-12] VITALS (8 sets, daily range): BP systolic 127–151; BP diastolic 65–88; PULSE 63–80; RESP 16–20; TEMP 36.1–36.5; O2SAT 96–98
[2025-01-12] MEDS: Omeprazole 20 MG CAPSULE.DR PO ×2 (05:53→16:34)
[2025-01-12 06:52] LABS: Anion Gap 13 (12-20); Blood Urea Nitrogen 34 mg/dL (9-16); Calcium 8.6 mg/dL (8.4-10.2); Carbon Dioxide 37 mmol/L (22-29); Chloride 94 mmol/L (96-108); Creatinine Clr Calc Pharmacy 51.3; Estimated Glomerular Filt Rate 45; Glucose Random 175 mg/dL (60-115); Potassium 4.1 mmol/L (3.3-5.1); Sodium 140 mmol/L (135-145)
[2025-01-12] MEDS: allopurinoL 100 MG TABLET 50 MG PO (07:59)
[2025-01-12] MEDS: Gabapentin 400 MG CAPSULE 800 MG PO ×2 (07:59→21:09)
[2025-01-12] MEDS: Multivitamin TABLET 1 TAB PO (07:59)
[2025-01-12] MEDS: Loratadine 10 MG TABLET PO (07:59)
[2025-01-12] MEDS: Isosorbide Mononitrate 60 MG TAB.ER.24H PO (07:59)
[2025-01-12] MEDS: Apixaban 5 MG TABLET PO (07:59)
[2025-01-12] MEDS: Metoprolol Tartrate 100 MG TABLET PO ×2 (07:59→21:09)
[2025-01-12] MEDS: Magnesium Oxide 400 MG TABLET PO (07:59)
[2025-01-12] MEDS: Memantine HCl 10 MG TABLET PO ×2 (07:59→21:10)
[2025-01-12] MEDS: Bumetanide 1 MG TABLET 2 MG PO ×2 (07:59→16:34)
[2025-01-12] MEDS: 0.9 % Sodium Chloride Flush 3 ML SYRINGE IVFLUSH ×3 (08:00→21:11)
[2025-01-12] MEDS: Insulin Lispro 100 UNIT/ML 3 ML VIAL SUBCUT ×3 (08:00→16:34)
[2025-01-12] MEDS: Sucralfate 1 GM TABLET PO ×3 (08:00→16:34)
[2025-01-12 08:23] LABS: Glucose, Whole Blood 168 mg/dL (60-115)
[2025-01-12 11:06] LABS: Glucose, Whole Blood 298 mg/dL (60-115)
[2025-01-12 11:59] LABS: MANUAL DIFF FLAG NO
[2025-01-12 12:03] LABS: Basophils Percent Auto 0.6 % (0-2); Eosinophils Absolute Auto 0.3 X10*3/uL (0.0-0.4); Eosinophils Percent Auto 4.4 % (0-4); Hematocrit 30.2 % (42.0-52.0); Hemoglobin 9.6 g/dl (14.0-18.0); Imm Gran Abs Auto 0.02 X10*3/uL (0.00-0.03); Imm Gran Pct Auto 0.3 % (0.0-0.4); Lymphocytes Absolute Auto 1.3 X10*3/uL (1.2-4.9); Lymphocytes Percent Auto 20.6 % (20-40); Mean Corpuscular HGB Conc 31.8 g/dl (31.0-36.0); Mean Corpuscular Hemoglobin 29.8 pg (27.0-33.0); Mean Corpuscular Volume 93.8 fL (80.0-98.0); Mean Platelet Volume 12.5 fL (9.4-12.4); Monocytes Absolute Auto 0.7 X10*3/uL (0.1-1.2); Monocytes Percent Auto 10.6 % (2-11); Neutrophils Absolute Auto 3.9 x10*3/uL (2.0-8.3); Neutrophils Percent Auto 63.5 % (45-73); Platelet Count 165 X10*3/uL (160-400); Red Blood Count 3.22 X10*6/uL (4.60-5.80); Red Cell Distribution Width 15.7 % (11.0-16.0); White Blood Count 6.2 X10*3/uL (4.8-10.8)
[2025-01-12] MEDS: INSULIN ASP PRT INSULIN ASPART 30 EACH SUBCUT (12:16)
--- NOTE | 2025-01-12 13:12 | P.PNIM_ITS ---
Subjective Subjective Date of Service: 01/12/25 Interval History: Seen in follow-up for acute hypoxic respiratory failure chronic respiratory failure, CHF exacerbation. off high flow and doing well on nasal cannula, no repiratory distress. no more hematuria Physical Exam 2 Vital Signs: Vital Signs: Last Vital Signs Temp 97.0 F 01/12/25 11:41 Pulse 75 01/12/25 11:41 Resp 20 01/12/25 11:41 BP 127/88 01/12/25 11:41 Pulse Ox 97 01/12/25 11:41 O2 Del Method Large Bore Nasal Cannula 01/12/25 11:41 O2 Flow Rate 2 01/12/25 11:41 FiO2 60 01/10/25 11:40 Oxygen Flow Rate 4 01/08/25 08:25 BMI result Body Mass Index 35.6 Const: Other: General: Alert to self, no distress Resp: rales at bases, n CVS: S1,S2, iregular iregular, 1 + leg edema GI: +BS, NT, no distention Skin: No rash Neuro: motor grossly intact Psych: appropriate affect Objective Data Active Medications Acetaminophen (Acetaminophen 325 Mg Tablet) 650 mg PO Q6H PRN PRN Reason: Pain, Mild 1-3,fever,headache Last Admin: 01/11/25 22:06 Dose: 650 mg Documented By: JOHNIE Al Hydroxide/Mg Hydroxide (Magnesium Hydrox/Alum Hydrox 30 Ml Oral.Susp) 5 ml PO Q6H PRN PRN Reason: Indigestion Allopurinol (Allopurinol 100 Mg Tablet) 50 mg PO DAILY [facility] Last Admin: 01/12/25 07:59 Dose: 50 mg Documented By: LAURENCE Apixaban (Apixaban 5 Mg Tablet) 5 mg PO BID [facility] Last Admin: 01/12/25 07:59 Dose: 5 mg Documented By: LAURENCE Atorvastatin Calcium (Atorvastatin Calcium 40 Mg Tablet) 40 mg PO BEDTIME [facility] Last Admin: 01/11/25 22:05 Dose: 40 mg Documented By: JOHNIE Bumetanide (Bumetanide 1 Mg Tablet) 2 mg PO BID@0800,1700 [facility]; Protocol Last Admin: 01/12/25 07:59 Dose: 2 mg Documented By: LAURENCE Calcium Carbonate (Calcium Carbonate 750 Mg Tab.Chew) 750 mg PO Q4H PRN PRN Reason: Heartburn Dextrose (Dextrose 50 % 25 Gm/50 Ml Syringe) 25 gm IVPUSH Q15M PRN; Protocol PRN Reason: per Hypoglycemia Standing Ord. Diphenhydramine HCl (Diphenhydramine Hcl 25 Mg Capsule) 12.5 mg PO BEDTIME PRN PRN Reason: Allergy Symptoms Donepezil HCl (Donepezil Hcl 10 Mg Tablet) 10 mg PO BEDTIME [facility] Last Admin: 01/11/25 22:06 Dose: 10 mg Documented By: JOHNIE Gabapentin (Gabapentin 400 Mg Capsule) 800 mg PO BID [facility] Last Admin: 01/12/25 07:59 Dose: 800 mg Documented By: LAURENCE Glucose (Glucose Gel 15 Gm Gel..Gram.) 15 gm PO Q15M PRN; Protocol PRN Reason: per Hypoglycemia Standing Ord. Insulin Human Lispro (Insulin Lispro 100 Unit/Ml 3 Ml Vial) 0 unit SUBCUT QIDACHS [facility]; Protocol Last Admin: 01/12/25 12:08 Dose: 1 unit Documented By: LAURENCE Isosorbide Mononitrate (Isosorbide Mononitrate 60 Mg Tab.Er.24h) 60 mg PO DAILY [facility]; Protocol Last Admin: 01/12/25 07:59 Dose: 60 mg Documented By: LAURENCE Loratadine (Loratadine 10 Mg Tablet) 10 mg PO DAILY [facility] Last Admin: 01/12/25 07:59 Dose: 10 mg Documented By: LAURENCE Magnesium Hydroxide (Milk Of Magnesia 30 Ml Oral.Susp) 30 ml PO DAILY PRN PRN Reason: Constipation Magnesium Oxide (Magnesium Oxide 400 Mg Tablet) 400 mg PO DAILY [facility] Last Admin: 01/12/25 07:59 Dose: 400 mg Documented By: LAURENCE Melatonin (Melatonin 3 Mg Tablet) 6 mg PO BEDTIME PRN PRN Reason: Insomnia Last Admin: 01/11/25 22:07 Dose: 6 mg Documented By: JOHNIE Memantine (Memantine Hcl 10 Mg Tablet) 10 mg PO BID [facility] Last Admin: 01/12/25 07:59 Dose: 10 mg Documented By: LAURENCE Metoprolol Tartrate (Metoprolol Tartrate 100 Mg Tablet) 100 mg PO BID [facility]; Protocol Last Admin: 01/12/25 07:59 Dose: 100 mg Documented By: LAURENCE Multi-Ingred Cream/Lotion/Oil/Oint (Mineral Oil/Petrolatum,White 106 Gm Tube) 1 appl TOPICAL DAILY PRN PRN Reason: Dry Skin Multivitamins/Vitamin C (Multivitamin Tablet) 1 tab PO DAILY [facility] Last Admin: 01/12/25 07:59 Dose: 1 tab Documented By: LAURENCE Pt Own Medication ( Insulin Asp Prt- Insulin Aspart [ Novolog Mix 70-30 U- 100 Insuln] 30 unit SUBCUT BIDWM PRN PRN Reason: BLOOD GLUCOSE > 200 Last Admin: 01/12/25 12:16 Dose: 30 unit Documented By: LAURENCE Pt Own Medication ( Insulin Asp Prt- Insulin Aspart [ Novolog Mix 70-30 U- 100 Insuln] 40 unit SUBCUT BIDWM PRN PRN Reason: BLOOD GLUCOSE > 300 Last Admin: 01/11/25 11:52 Dose: 30 unit Omeprazole (Omeprazole 20 Mg Capsule.) 20 mg PO BID@0630,1630 [facility] Last Admin: 01/12/25 05:53 Dose: 20 mg Documented By: JOHNIE Ondansetron HCl (Ondansetron Hcl 4 Mg/2 Ml Vial) 4 mg IVPUSH Q8H PRN PRN Reason: Nausea and Vomiting Sodium Chloride (0.9 % Sodium Chloride Flush 3 Ml Syringe) 3 ml IVFLUSH QSHIFT [facility] Last Admin: 01/12/25 08:00 Dose: 3 ml Documented By: LAURENCE Sucralfate (Sucralfate 1 Gm Tablet) 1 gm PO TIDAC [facility] Last Admin: 01/12/25 12:08 Dose: 1 gm Documented By: LAURENCE Tamsulosin HCl (Tamsulosin Hcl 0.4 Mg Capsule) 0.4 mg PO BEDTIME [facility] Last Admin: 01/11/25 22:07 Dose: 0.4 mg Documented By: JONHIE Labs 01/12/25 06:22 01/12/25 06:22 Labs: Laboratory Results - last 24 hr 01/11/25 01/11/25 01/11/25 16:45 19:23 21:56 MCV MCH MCHC RDW Plt Count MPV Immature Gran % (Auto) Neut % (Auto) Lymph % (Auto) Hendry % (Auto) Eos % (Auto) Baso % (Auto) Lymph # (Auto) [place] # (Auto) Eos # (Auto) Baso # (Auto) Abs Immat Gran (auto) Absolute Neuts (auto) Absolute Nucleated RBC Nucleated RBC % (auto) Hold Purple Top Anion Gap Estim Creat Clear Calc Estimated GFR POC Glucose 180 H 236 H 232 H Random Glucose Calcium 01/11/25 01/12/25 01/12/25 23:29 06:22 07:17 MCV 93.8 MCH 29.8 MCHC 31.8 RDW 15.7 Plt Count 165 MPV 12.5 H Immature Gran % (Auto) 0.3 Neut % (Auto) 63.5 Lymph % (Auto) 20.6 Hendry % (Auto) 10.6 Eos % (Auto) 4.4 H Baso % (Auto) 0.6 Lymph # (Auto) 1.3 [place]ry # (Auto) 0.7 Eos # (Auto) 0.3 Baso # (Auto) 0.0 Abs Immat Gran (auto) 0.02 Absolute Neuts (auto) 3.9 Absolute Nucleated RBC 0.000 Nucleated RBC % (auto) 0.0 Hold Purple Top SEE NOTE Anion Gap 13 Estim Creat Clear Calc 51.3 Estimated GFR 45 POC Glucose 226 H 168 H Random Glucose 175 H Calcium 8.6 01/12/25 10:56 MCV MCH MCHC RDW Plt Count MPV Immature Gran % (Auto) Neut % (Auto) Lymph % (Auto) [place] % (Auto) Eos % (Auto) Baso % (Auto) Lymph # (Auto) [place] # (Auto) Eos # (Auto) Baso # (Auto) Abs Immat Gran (auto) Absolute Neuts (auto) Absolute Nucleated RBC Nucleated RBC % (auto) Hold Purple Top Anion Gap Estim Creat Clear Calc Estimated GFR POC Glucose 298 H Random Glucose Calcium Assessment and Plan (1) Acute hypoxic respiratory failure: Status: Inactive (2) CHF exacerbation: Status: Inactive Plan A 79-year-old male with a history of CAD, DM, Alzheimer's dementia, HLD, CKD stage 3, and chronic AFib, HFrEF, with frequent hospitalizations (3 since November 25), most recently from 12/24 to 12/26 for acute hypoxic respiratory failure due to CHF and bacterial pneumonia, presented to the ED three days after discharge for a similar presentation. He now presents with confusion and hypoxia and was found to have an HFrEF exacerbation. HFrEF: Recent echo showed a severely reduced LV ejection fraction of 20-25%. IV Bumex to PO Bumex 2/16 Monitor I/O, weight, BNP, and BMP. Cardiology evaluation if not improving. Titrate O2 to 2 liters Acute hypoxic respiratory failure due to the above on home O2 Treat the underlying CHF; oxygen goal 92% or better. Confusion due to metabolic encephalopathy with underlying dementia., presently at his baseline CKD-3: Cardiorenal syndrome; creatinine within baseline. Diabetes with hyperglycemia: Continue home Novolog 70/30 bid (cannot substitute)--30 units fof BS > 200 and 40 units if > 300, admelog SSI and diabetic diet. HTN: Norvasc. Chronic AFib: rate controlled, continue metoprolol. Restart eliquis CAD: ASA, statin, metoprolol. Hematuria--montelongo, will hold eliquis, urology following GERD: PPI. Dementia: Continue Memantine and Donepezil. Neuropathy: Gabapentin. Hematuria--resolved, cbi stopped DVT prophylaxis: Eliquis. Full code: DNR/DNI Quality Stroke Does the patient have a stroke diagnosis?: No VTE Prior VTE?: No VTE Risk Level:: Medical - moderate - high VTE Device Contraindication: N/A - Device Ordered VTE Drug Contraindication: N/A - Med Ordered
[2025-01-12 16:12] LABS: Glucose, Whole Blood 204 mg/dL (60-115)
--- NOTE | 2025-01-12 16:56 | PC.NURSE ---
Per urology and MD orders, remove montelongo this AM. This RN went in to remove montelongo during 0830 med pass and noticed slight hematuria within the catheter. MD notified and catheter flushed with larger amout of hematuria draining into the bag. Per MD keep montelongo in place and monitor hematuria as well as hold night time eloquis and if hematuria persists will consider restarting CBI. 1600 Hematuria seems to be slowing down, MD reassess and states that there is no need for CBI at this time
[2025-01-12 20:59] LABS: Glucose, Whole Blood 234 mg/dL (60-115)
[2025-01-12] MEDS: Donepezil HCl 10 MG TABLET PO (21:08)
[2025-01-12] MEDS: Atorvastatin Calcium 40 MG TABLET PO (21:08)
[2025-01-12] MEDS: Acetaminophen 325 MG TABLET 650 MG PO (21:10)
[2025-01-12] MEDS: Melatonin 3 MG TABLET 6 MG PO (21:10)
[2025-01-12] MEDS: Tamsulosin HCL 0.4 MG CAPSULE PO (21:10)
[2025-01-12] MEDS: INSULIN ASP PRT INSULIN ASPART 40 EACH SUBCUT (21:17)
[2025-01-13] VITALS: BP 146/70; PULSE 61; RESP 20; TEMP 36.4; O2SAT 98
[2025-01-13 04:00] VITALS: BP 123/60; PULSE 60; RESP 16; TEMP 36.1; O2SAT 97
[2025-01-13] MEDS: Omeprazole 20 MG CAPSULE.DR PO (06:28)
[2025-01-13 06:36] LABS: Anion Gap 14 (12-20); Blood Urea Nitrogen 37 mg/dL (9-16); Calcium 8.8 mg/dL (8.4-10.2); Carbon Dioxide 37 mmol/L (22-29); Chloride 94 mmol/L (96-108); Creatinine Clr Calc Pharmacy 51.3; Estimated Glomerular Filt Rate 45; Glucose Random 202 mg/dL (60-115); Potassium 3.8 mmol/L (3.3-5.1); Sodium 141 mmol/L (135-145)
[2025-01-13 07:25] VITALS: BP 144/67; PULSE 61; RESP 20; TEMP 36.3; O2SAT 98
[2025-01-13 07:32] LABS: Glucose, Whole Blood 210 mg/dL (60-115)
[2025-01-13 08:25] LABS: MANUAL DIFF FLAG NO
[2025-01-13 08:27] LABS: Basophils Percent Auto 0.7 % (0-2); Eosinophils Absolute Auto 0.3 X10*3/uL (0.0-0.4); Eosinophils Percent Auto 5.4 % (0-4); Hematocrit 31.2 % (42.0-52.0); Hemoglobin 9.8 g/dl (14.0-18.0); Imm Gran Abs Auto 0.02 X10*3/uL (0.00-0.03); Imm Gran Pct Auto 0.3 % (0.0-0.4); Lymphocytes Absolute Auto 1.3 X10*3/uL (1.2-4.9); Lymphocytes Percent Auto 21.6 % (20-40); Mean Corpuscular HGB Conc 31.4 g/dl (31.0-36.0); Mean Corpuscular Hemoglobin 29.3 pg (27.0-33.0); Mean Corpuscular Volume 93.4 fL (80.0-98.0); Mean Platelet Volume 12.9 fL (9.4-12.4); Monocytes Absolute Auto 0.6 X10*3/uL (0.1-1.2); Monocytes Percent Auto 10.3 % (2-11); Neutrophils Absolute Auto 3.8 x10*3/uL (2.0-8.3); Neutrophils Percent Auto 61.7 % (45-73); Platelet Count 177 X10*3/uL (160-400); Red Blood Count 3.34 X10*6/uL (4.60-5.80); Red Cell Distribution Width 15.7 % (11.0-16.0); White Blood Count 6.1 X10*3/uL (4.8-10.8)
[2025-01-13] MEDS: INSULIN ASP PRT INSULIN ASPART 30 EACH SUBCUT (09:29)
[2025-01-13] MEDS: Insulin Lispro 100 UNIT/ML 3 ML VIAL SUBCUT ×2 (09:30→11:31)
[2025-01-13] MEDS: Bumetanide 1 MG TABLET 2 MG PO (09:30)
[2025-01-13] MEDS: Gabapentin 400 MG CAPSULE 800 MG PO (09:30)
[2025-01-13] MEDS: Metoprolol Tartrate 100 MG TABLET PO (09:30)
[2025-01-13] MEDS: Sucralfate 1 GM TABLET PO ×2 (09:31→11:31)
[2025-01-13] MEDS: Multivitamin TABLET 1 TAB PO (09:31)
[2025-01-13] MEDS: Loratadine 10 MG TABLET PO (09:31)
[2025-01-13] MEDS: Isosorbide Mononitrate 60 MG TAB.ER.24H PO (09:31)
[2025-01-13] MEDS: Magnesium Oxide 400 MG TABLET PO (09:31)
[2025-01-13] MEDS: Memantine HCl 10 MG TABLET PO (09:31)
[2025-01-13] MEDS: allopurinoL 100 MG TABLET 50 MG PO (09:31)
[2025-01-13] MEDS: 0.9 % Sodium Chloride Flush 3 ML SYRINGE IVFLUSH (09:32)
--- NOTE | 2025-01-13 10:55 | P.DS_ITS ---
DS: Providers Provider Date of Service: 01/13/25 Date of admission: 01/08/25 16:13 Date of discharge: 01/13/25 Primary care physician: Kathy Villafana MD Consults: 01/08/25 15:41 Consult for Sitter Routine Reason for consultation: agitation and removing tubes 01/09/25 05:39 Consult to Urology Routine Consulting Provider: [facility] [place], [place] Urology Services Reason for consultation: hematuria DS: Diagnosis Discharge Diagnosis (1) Acute hypoxic respiratory failure: Status: Inactive (2) CHF exacerbation: Status: Inactive DS: Summary Hospital Course Hospital Course: Admission hpi Chief Complaint: Hypoxia, heart failure exacerbation A 79-year-old male with a history of coronary artery disease (CAD), diabetes mellitus (DM), Alzheimer's dementia, hyperlipidemia (HLD), stage 3 chronic kidney disease (CKD), chronic atrial fibrillation (AFib), and heart failure with reduced ejection fraction (HFrEF) presented to the emergency department. He has a history of frequent hospitalizations, including three since November 25, most recently from December 24 to for acute hypoxic respiratory failure due to congestive heart failure (CHF) and bacterial pneumonia. He was evaluated and discharged from the ED for a similar presentation just three days prior. He now presents with increasing confusion per family and hypoxia, as he is removing his oxygen. His initial oxygen saturation was 84%, which improved to 94% after treatment with a duoneb, ultimately requiring high-flow oxygen. Testing revealed reassuring arterial blood gas (ABG) results, mildly elevated potassium of 5.4, a BNP of 563, and negative influenza, RSV, and COVID tests. A chest x- ray (CXR) showed mild pulmonary vascular congestion, persistent opacification of both lung bases (possibly representing atelectasis or pneumonia), and pleural effusion. ED treatment consisted of 60mg of IV Lasix and high-flow oxygen. hospital course: A 79-year-old male with a history of CAD, DM, Alzheimer's dementia, HLD, CKD stage 3, chronic AFib, and HFrEF, with frequent hospitalizations (three since November 25)?most recently from 12/24 to 12/26 for acute hypoxic respiratory failure due to CHF and bacterial pneumonia?presented to the ED three days after discharge with a similar presentation. He now presents with confusion and hypoxia and was found to have an acute on chronic HFrEF exacerbation with underlying chronic respiratory failure, for which he is on home oxygen. He was initially hypoxic and refused to wear a nasal cannula, requiring high-flow oxygen. In the ED, he received IV Lasix, and upon admission, his diuretic was changed to IV Bumex 1 mg twice daily with I/O monitoring, daily BMP, and BNP. The patient made gradual improvement, was eventually weaned off high-flow oxygen, and transitioned to a nasal cannula. Once fluid overload was resolved, he was switched from IV Bumex 1 mg to oral Bumex 2 mg twice daily (double his prior home dose). He continues to do well without acute respiratory issues, and his family is very satisfied with his recovery. Problem List & Management: * Acute hypoxic respiratory failure on chronic respiratory failure ? Improved; back on baseline home oxygen. * Confusion due to metabolic encephalopathy with underlying dementia, likely caused by acute hypoxia ? Resolved; back to baseline. * CKD-3 (Cardiorenal syndrome) ? Creatinine within baseline. * Diabetes with hyperglycemia ? Resume home insulin (70/30); family to adjust dose based on meals and sugar levels. * Hypertension ? Continue Norvasc. * Chronic AFib ? Rate controlled; continue Metoprolol, restart Eliquis. * CAD ? Continue Aspirin, statin, Metoprolol. * Hematuria ? Montelongo placed; Eliquis held, urology following. * GERD ? Continue PPI. * Dementia ? Continue Memantine and Donepezil. * Neuropathy ? Continue Gabapentin. * Hematuria ? following montelongo catheter insertion, had CBI, cleared and cbi replaced with montelongo but once restarted on eliquis, hematuria returned but to a lesser extent. Will hold eliquis for 1 week, and monitor and may follow up with urology Time Attestation Discharge Coordination Time (in mins): 45 Quality: Safe Use of Opioids Does Pt have an Active Cancer Diagnosis on the Problem List?: No Quality: Stroke Does the patient have a stroke diagnosis?: No Physical Exam Vital Signs: Vital Signs: Last Vital Signs Temp 97.3 F 01/13/25 07:25 Pulse 61 01/13/25 07:25 Resp 20 01/13/25 07:25 BP 144/67 H 01/13/25 07:25 Pulse Ox 98 01/13/25 07:25 O2 Del Method Nasal Cannula 01/13/25 07:25 O2 Flow Rate 2 01/13/25 07:25 FiO2 60 01/10/25 11:40 Oxygen Flow Rate 4 01/08/25 08:25 BMI result Body Mass Index 35.6 DS: Data Data Completed and Pending Completed studies during hospitalization [Text1]: Procedures Labs on day of discharge: Laboratory Results - last 24 hr 01/12/25 01/12/25 01/12/25 06:22 10:56 16:05 WBC 6.2 RBC 3.22 L Hgb 9.6 L Hct 30.2 L MCV 93.8 MCH 29.8 MCHC 31.8 RDW 15.7 Plt Count 165 MPV 12.5 H Immature Gran % (Auto) 0.3 Neut % (Auto) 63.5 Lymph % (Auto) 20.6 [place] % (Auto) 10.6 Eos % (Auto) 4.4 H Baso % (Auto) 0.6 Lymph # (Auto) 1.3 [place] # (Auto) 0.7 Eos # (Auto) 0.3 Baso # (Auto) 0.0 Abs Immat Gran (auto) 0.02 Absolute Neuts (auto) 3.9 Absolute Nucleated RBC 0.000 Nucleated RBC % (auto) 0.0 Hold Purple Top Sodium Potassium Chloride Carbon Dioxide Anion Gap BUN Creatinine Estim Creat Clear Calc Estimated GFR POC Glucose 298 H 204 H Random Glucose Calcium 01/12/25 01/13/25 01/13/25 20:52 05:57 07:28 WBC 6.1 RBC 3.34 L Hgb 9.8 L Hct 31.2 L MCV 93.4 MCH 29.3 MCHC 31.4 RDW 15.7 Plt Count 177 MPV 12.9 H Immature Gran % (Auto) 0.3 Neut % (Auto) 61.7 Lymph % (Auto) 21.6 [place] % (Auto) 10.3 Eos % (Auto) 5.4 H Baso % (Auto) 0.7 Lymph # (Auto) 1.3 [place] # (Auto) 0.6 Eos # (Auto) 0.3 Baso # (Auto) 0.0 Abs Immat Gran (auto) 0.02 Absolute Neuts (auto) 3.8 Absolute Nucleated RBC 0.000 Nucleated RBC % (auto) 0.0 Hold Purple Top SEE NOTE Sodium 141 Potassium 3.8 Chloride 94 L Carbon Dioxide 37 H Anion Gap 14 BUN 37 H Creatinine 1.51 H Estim Creat Clear Calc 51.3 Estimated GFR 45 POC Glucose 234 H 210 H Random Glucose 202 H Calcium 8.8 Preliminary micro results at discharge 01/08/25 09:48 Blood Culture - Preliminary Blood - Venous No growth after 48 hours. 01/08/25 09:32 Blood Culture - Preliminary Blood - Venous No growth after 48 hours. Discharge Plan Discharge Anticipated Discharge Date/Time: 01/13/25 10:58 Patient Disposition: Home Health Service Discharge Diagnosis: Acute decompensated heart failure Referrals: Corinne HOOKS [Outside] - 1 Week Kathy Villafana MD [Primary Care Provider] - 1 Week Discharge Medications: New bumetanide 1 mg Tablet 2 mg PO BID@0800,1700 Qty: 180 0RF Protocol: Hold for SBP< HOLD for SBP < : 90 Continued donepezil 10 mg tablet 1 tab PO BEDTIME CertaVite Senior 0.4-300-250 mg-mcg-mcg tablet 1 tab PO DAILY atorvastatin [Lipitor] 40 mg tablet 40 mg PO BEDTIME Qty: 30 0RF metoprolol tartrate 100 mg tablet 100 mg PO BID memantine 10 mg tablet 10 mg PO BID allopurinol 100 mg tablet 50 mg PO DAILY (DME) lancets [Lancets,Ultra Thin] Misc See Rx Instructions .Route Qty: 100 0RF Rx Instructions: As directed cetirizine 10 mg tablet 10 mg PO DAILY magnesium oxide 250 mg magnesium tablet 250 mg PO DAILY isosorbide mononitrate 60 mg Tablet Extended Release 24 Hr 60 mg PO DAILY Qty: 90 0RF Protocol: Hold for SBP< HOLD for SBP < : 90 amlodipine 5 mg tablet 2.5 mg PO DAILY Qty: 90 0RF tamsulosin [Flomax] 0.4 mg capsule 0.4 mg PO BEDTIME Qty: 60 0RF insulin asp prt-insulin aspart [Novolog Mix 70-30 U-100 Insuln] 100 unit/mL (70-30) solution 76 unit subcut BIDWM Rx Instructions: INJECT 76 UNITS SUBCUTANEOUSLY TWICE DAILY WITH BREAKFAST AND WITH DINNER gabapentin 800 mg tablet 800 mg PO BID omeprazole 20 mg capsule,delayed release(DR/EC) 20 mg PO BID@0630,1630 sucralfate 1 gram tablet 1 g PO TIDAC diphenhydramine HCl [Nell-Dryl] 25 mg tablet 12.5 mg PO BEDTIME PRN (Reason: Allergy Symptoms) petrolatum Ointment 1 appl TOPICAL DAILY PRN (Reason: Dry Skin) triamcinolone acetonide 0.1 % cream 1 appl topical BID alum-mag hydroxide-simeth [Nell-Lanta] 200-200-20 mg/5 mL Suspension 5 ml PO Q6H PRN (Reason: Indigestion) Rx Instructions: administer between meals and at bedtime (DME) insulin syringe-needle U-100 1 mL 31 gauge x 5/16 syringe See Rx Instructions subcut TID Qty: 10 Rx Instructions: As directed Held Eliquis 5 mg tablet 5 mg PO BID Hold Instructions: Resume on 01/20/25. aspirin 81 mg Tablet,Chewable 81 mg PO DAILY Qty: 60 0RF Hold Instructions: Resume on 01/20/25. Discontinued bumetanide 1 mg tablet 1 mg PO DAILY Qty: 90 0RF Discharge Orders: Discharge Order (Routine); Ordered 01/13/25 Ordered By: Chidi Ramirez Diet: Diabetic diet Activity on Discharge: As tolerated Stand Alone Forms: Patient Portal Discharge page Print Language: Albanian Care Plan Goals: Recovery from heart failure and gross hematuria Health Concerns: Acute on chronic heart failure gross hematuria Plan of Treatment: Take Bumex as recommended (dose has been increased to 2 mg twice daily) Continue using oxygen as before. Because of hematuria ( bleeding in the urine) stop taking aspirin and eliquis for 1 week resume oxygen as before Assessment: see above Discharge Date/Time: 01/13/25 15:00
[2025-01-13 11:14] VITALS: BP 146/69; PULSE 57; RESP 20; TEMP 36.7; O2SAT 96
[2025-01-13 11:16] LABS: Glucose, Whole Blood 259 mg/dL (60-115)
--- NOTE | 2025-01-13 11:54 | MHC.CM.PN ---
Second IMM 01/13. Pt is medically cleared for discharge home with new [facility] services. Pt will transport home via B[facility]. [facility] transport auth received, booking ID#: [id number]. This CM called to speak with pts son/HCP Hadley to address the second IMM and also confirm discharge plans, he will be home to receive his father today.
--- NOTE | 2025-01-13 12:24 | MHC.SLORD ---
Speech Language Pathology Order Status: Patient about to have Bragg changed when OFFICE AUDITOR arrived for visit. Discussed w/ RN and SURGICAL ORDERLY, who report that patient has been tolerating unmodified diet well. He consumed various foods of regular texture, including grilled cheese, pancake, pineapple, and grapes. He reportedly feeds himself and had no overt difficulty swallowing. D/C ST at this time, as patient presents with no further concern at this time. Please re-refer if needed.
--- NOTE | 2025-01-13 12:49 | W.MHC.F2F ---
Service Date Service Date: 01/13/25 Encounter Date of encounter: 01/13/25 Reasons for Services Signs and symptoms assessed: shortness of confusion from heart failure exacerbation Reason for halfway: medication management and teach disease management Reason for physical therapy: therapeutic exercises, gait/transfer training and energy conservation Homebound: Leaving the home is medically contraindicated at this time without the asist of a device and/or another person due th the listed conditions above and below. Reason homebound: fall risk related to blood pressure changes and weakness related to hospital stay Homebound supporting statement: homebound due to dementia, heart failure with shortness of breath on minimal effort and therefore needs the assistance of another person Certification: Based on the above findings, I certify that this patient is confined to the home and needs intermittent halfway care, physical therapy and/or speech therapy, or continues to need occupational therapy. The patient is under my care, and I have initiated the establishment of the plan of care. The patient will be followed by a physician who will periodically review the plan of care. Time Spent With Patient Time: Total time managing care of this patient today ____ minutes.
== END 2025-01-13 15:00 | disposition home health service (06) | DRG 291 ==
LOC: HO.ED 14:38 → HO.EDOVER 16:31 → HO.IMC 19:31
PROVIDERS: Student in an Organized Health Care Education/Training Program; Admitting Provider Internal Medicine; Emergency Provider Emergency Medicine Emergency Medical Services; PCP General Practice; Visit Provider Internal Medicine
DX: I13.0 Hypertensive heart and chronic kidney disease with heart failure and stage 1 through stage 4 chronic kidney disease, or unspecified chronic kidney disease (principal); G93.41 Metabolic encephalopathy; I50.23 Acute on chronic systolic (congestive) heart failure; J96.21 Acute and chronic respiratory failure with hypoxia; I48.20 Chronic atrial fibrillation, unspecified; N18.30 Chronic kidney disease, stage 3 unspecified; G30.9 Alzheimer's disease, unspecified; F02.80 Dementia in other diseases classified elsewhere, unspecified severity, without behavioral disturbance, psychotic disturbance, mood disturbance, and anxiety; Z66 Do not resuscitate; E11.40 Type 2 diabetes mellitus with diabetic neuropathy, unspecified; E11.22 Type 2 diabetes mellitus with diabetic chronic kidney disease; R31.0 Gross hematuria; K21.9 Gastro-esophageal reflux disease without esophagitis; I25.10 Atherosclerotic heart disease of native coronary artery without angina pectoris; Z20.822 Contact with and (suspected) exposure to COVID-19; Z99.81 Dependence on supplemental oxygen; Z79.4 Long term (current) use of insulin; Z79.01 Long term (current) use of anticoagulants; Z79.899 Other long term (current) drug therapy
CPT/HCPCS: 0241U; 36415; 71045; 80048; 80053; 82803; 82947; 83605; 83880; 84484; 85007; 85025; 85027; 85610; 85730; 87040; 92610; 93005; 99283; 99285; C1758; J1939; J2270

== ENCOUNTER → 2025-01-08 08:43 | Outpatient (BNV) | payer OTHER, SELFPAY | PROVIDERS: Emergency Provider Emergency Medicine Emergency Medical Services; PCP General Practice; Visit Provider Internal Medicine Cardiovascular Disease | DX: I48.91 Unspecified atrial fibrillation (principal) | CPT/HCPCS: 93010 ==

== ENCOUNTER → 2025-01-08 09:18 | Outpatient (BNV) | payer OTHER, SELFPAY | PROVIDERS: Emergency Provider Emergency Medicine Emergency Medical Services; PCP General Practice; Visit Provider Radiology Diagnostic Radiology | DX: J96.21 Acute and chronic respiratory failure with hypoxia (principal); J81.1 Chronic pulmonary edema | CPT/HCPCS: 71045 ==

== ENCOUNTER → 2025-01-08 16:13 | Outpatient (BNV) | payer OTHER, SELFPAY | PROVIDERS: Admitting Provider Internal Medicine; Emergency Provider Emergency Medicine Emergency Medical Services; PCP General Practice; Visit Provider Urology | DX: R31.0 Gross hematuria (principal) | CPT/HCPCS: 99222 ==

== ENCOUNTER → 2025-01-08 16:13 | Outpatient (BNV) | payer OTHER, SELFPAY | PROVIDERS: Admitting Provider Internal Medicine; Emergency Provider Emergency Medicine Emergency Medical Services; PCP General Practice; Visit Provider Student in an Organized Health Care Education/Training Program | DX: J96.01 Acute respiratory failure with hypoxia (principal); I50.9 Heart failure, unspecified | CPT/HCPCS: 99232; 99239 ==

== ENCOUNTER 2025-02-27 18:28 | Inpatient (IN) | payer OTHER, SELFPAY ==
--- NOTE | ~2025-02-27 | XR_ITS ---
CLINICAL HISTORY: CHF excerbation, elevated BNP 1 view chest x-ray Comparison: 01/08/2025 Findings: Left basilar consolidation and small pleural effusion. Aeration has improved since prior study. Right lung now clear without infiltrates. No pneumothorax. Heart size enlarged. No acute bony abnormalities. Impression: Left basilar consolidation and small pleural effusion This document has been electronically signed by: Emigdio Lyon MD on 02/28/2025 00:07:49
--- NOTE | ~2025-02-27 | CT_ITS ---
CLINICAL HISTORY: Acute neck pain during exam? Dissection CT head without contrast Comparison: 03/28/2023 Findings: No intracranial mass, midline shift, hydrocephalus, or acute hemorrhage. Moderate chronic ischemic white matter disease with volume loss. No acute process in sinuses or mastoids. No acute bony abnormality. Impression: No acute intracranial process CT angiogram head/ho-chunk of Cloud with contrast, Multiplanar reconstructions and 3D postprocessing Comparison: None Findings: Normal configuration noted in the ho-chunk of Cloud vessels. No acute filling defect or vessel truncation noted. Dural venous sinuses patent without filling defects. No focal aneurysm or central vascular abnormality. No peripheral vascular malformations demonstrated. Impression: No acute vascular abnormalities. CT angiogram of the neck/carotid arteries with contrast, Multiplanar reconstructions and MIPS Comparison: None Findings: Great vessel origins are patent at the level of the aortic arch. Bilateral subclavian arteries are patent without stenosis. Bilateral vertebral artery origins are patent without stenosis. No evidence for vertebral dissection. Right vertebral dominant. Bilateral common carotid arteries are unremarkable. Bilateral carotid bulbs demonstrate no significant plaque. No significant bilateral internal carotid artery stenosis. No significant soft tissue mass or adenopathy. No significant focal bony abnormalities. Minimal left pleural effusion partially visualized. Impression: No significant vascular abnormalities This document has been electronically signed by: Emigdio Lyon MD on 02/27/2025 21:39:59
[2025-02-27 18:36] VITALS: BP 130/82; PULSE 75; O2SAT 93
[2025-02-27 18:39] VITALS: BP 112/55; PULSE 73; RESP 17; TEMP 36.6; O2SAT 93; BMI 31.9
--- NOTE | 2025-02-27 18:59 | ED_ITS ---
HPI - General Adult General Chief complaint: General Medical Stated complaint: weak, diaphoretic, pale lips, neck pain Time Seen by Provider: 02/27/25 18:44 Source: patient and family Mode of arrival: EMS Limitations: no limitations History of Present Illness ED Provider: HPI narrative: Patient is brought by the family for increased weakness for last few days and today while moving his bowels patient had a jerking movements lasted only for few minutes no confusion no vomiting patient according to family been feeling very weak eating okay no vomiting no chest pain no increased shortness a breath no head injury no prior seizure patient does have dementia in his forgetful but son was at home when this happened Related Data Home Medications ?Medication ?Instructions ?Recorded ?Confirmed apixaban 5 mg tablet (Eliquis) 5 mg PO BID 09/05/21 02/27/25 donepezil 10 mg tablet 1 tab PO BEDTIME 09/05/21 02/27/25 [id number] acid 0.4 1 tab PO DAILY 09/05/21 02/27/25 mg-lycopene 300 mcg-lutein 250 mcg tablet (CertaVite Senior) allopurinol 100 mg tablet 50 mg PO DAILY gout pain 10/07/21 02/27/25 insulin syringe-needle U-100 1 mL #10 ea 12/22/21 05/08/22 31 gauge x 04/10 memantine 10 mg tablet 10 mg PO BID 05/08/22 02/27/25 metoprolol tartrate 100 mg tablet 100 mg PO BID 05/08/22 02/27/25 cetirizine 10 mg tablet 10 mg PO DAILY congestion 08/17/23 02/27/25 gabapentin 800 mg tablet 800 mg PO BID 05/17/24 02/27/25 omeprazole 20 mg capsule,delayed 20 mg PO BID@0630,1630 05/17/24 02/27/25 release sucralfate 1 gram tablet 1 g PO TIDAC 05/17/24 02/27/25 magnesium oxide 250 mg PO DAILY 11/25/24 02/27/25 insulin aspar prt-insulin aspart 76 unit subcut BIDWM 12/24/24 02/27/25 100 unit/mL (70-30) subcutaneous soln (Novolog Mix 70-30 U-100 Insuln) diphenhydramine HCl 25 mg tablet 12.5 mg PO BEDTIME PRN Allergy 01/08/25 02/27/25 (Nell-Dryl) Symptoms dapagliflozin propanediol 5 mg 5 mg PO DAILY 02/27/25 02/27/25 tablet (Farxiga) Previous Rx's ?Medication ?Instructions ?Recorded atorvastatin 40 mg tablet (Lipitor) 40 mg PO BEDTIME #30 tabs 09/09/21 lancets (Lancets,Ultra Thin) #100 ea 10/21/21 amlodipine 5 mg tablet 2.5 mg (1/2 x 5 mg) PO DAILY #90 12/03/24 tabs aspirin 81 mg chewable tablet 81 mg PO DAILY #60 tabs 12/03/24 isosorbide mononitrate 60 mg 60 mg PO DAILY #90 tabs 12/03/24 tablet,extended release 24 hr tamsulosin 0.4 mg capsule (Flomax) 0.4 mg PO BEDTIME #60 caps 12/03/24 bumetanide 1 mg tablet 2 mg PO BID@0800,1700 #180 tabs 01/13/25 Allergies Allergy/AdvReac Type Severity Reaction Status Date / Time No Known Allergies Allergy Verified 02/27/25 18:45 Review of Systems 2 Review of Systems: Yes all other systems are reviewed and are negative PMFSH Past Medical History Medical History (Updated 02/28/25 @ 01:05 by Josef Lundberg MD) CHF exacerbation Chronic atrial fibrillation Diabetes mellitus Alzheimer's dementia Acute hypoxic respiratory failure Pneumonia Pneumonia Acute respiratory failure Hypoxia CAD (coronary artery disease) Trash foot Diabetic foot infection Heart failure with preserved ejection fraction HLD (hyperlipidemia) Atrial fibrillation NSTEMI (non-ST elevated myocardial infarction) Kidney failure Diabetes HTN (hypertension) Surgical History No pertinent past surgical history Family History Family History Father No problems noted. Mother No problems noted. Social History Social History Household Members: Family Household Members Other:: sons and daughter in law Housing: Apartment Do you presently have visiting nurse or other home services: Yes Unable to assess alcohol history related to: Unable to respond Alcohol intake: never Patient Tobacco Use Status: Never used Tobacco Smoked in Last 30 Days: No e-Cigarette/Vaping Use: Never Used Second Hand Smoke Exposure: No Use of substances other than those prescribed or required for medical reasons: No Advance Directives: Yes Advance Directives on File: Yes Advance Directives Date on File: 09/06/21 Do you have a plan to hurt others: No Plan service: No Current occupational status: retired Physical Exam ED Vital Signs: Vital Signs - 24 hr 02/27/25 18:39 02/27/25 21:31 Temperature 97.9 F 97.9 F Pulse Rate 73 68 Respiratory Rate 17 12 Blood Pressure 112/55 L 124/56 L Pulse Oximetry 93 100 Oxygen Delivery Method Nasal Cannula Room Air BMI result Body Mass Index 31.9 Appearance: Alert. Oriented X3. No acute distress. Eyes: PERRLA, No Nystagmus ENT: Pharynx normal. Oral Mucosa moist Neck: Normal inspection. Neck supple. CVS: Normal heart rate and rhythm. Pulses normal. Respiratory: No respiratory distress. Equal air entry bilateral, no wheezing/rales/rhonchi Abdomen: Soft and nontender. Bowel sounds are present, no mass palpable, no CVA tenderness Skin: Skin warm and dry. Normal skin color. Normal skin turgor. Extremities: No lower extremity edema. No calf tenderness Neuro: Oriented X 3. No motor deficit. No sensory deficit.No cerebellar signs , cranial nerves II-XII intact Medications Administered Generic Name Dose Route Start Last Admin Trade Name Freq PRN Reason Stop Dose Admin Sodium Chloride 1,000 mls @ 80 mls/hr 02/27/25 23:00 02/27/25 23:23 Ns IVCONT 80 mls/hr .[id number] REYNALDO Administration Sodium Chloride 3 ml 02/28/25 00:00 02/28/25 00:12 0.9 % Sodium Chloride Flush 3 Ml Syringe IVFLUSH Not Given QSHIFT REYNALDO Discontinued Medications Generic Name Dose Route Start Last Admin Trade Name Freq PRN Reason Stop Dose Admin Sodium Chloride 1,000 mls @ 999 mls/hr 02/27/25 21:19 02/27/25 23:00 Ns IV 02/27/25 22:19 Infused .Q1H1M ONE Infusion Iohexol 100 ml 02/27/25 20:33 02/27/25 20:33 Iohexol 350 Mg/Ml 100 Ml Infus..Btl IV 02/27/25 20:34 75 ml ONCE ONE Administration Medical Decision Making Medical Decision Making [facility] Narrative: Patient's brief episode of shaking likely tremors possible seizure CT scan of the head and neck negative for acute noted to have JAMES with creatinine increased from baseline of 1.5-2.48 now patient has received IV fluids patient is taking furosemide likely the cause of prerenal azotemia will admit patient for JAMES with questionable seizure episode Differential Diagnosis Differential Diagnoses: The differential diagnosis associated with the presentation includes Encephalopathy/seizure/carotid artery dissection/vertebral dissection Admission/Observation Consideration of admission/observation: Escalation of care including admission/observation considered Consult Healthcare Provider Management of the patient was discussed with: Hospitalist Lab Data MDM Lab Attestation statement: I reviewed the patient's lab results. 02/27/25 19:51 02/27/25 19:51 Labs: Lab Results 02/27/25 02/27/25 02/27/25 Range/Units 19:51 19:51 19:52 WBC 8.7 (4.8-10.8) X10*3/uL RBC 3.82 L (4.60-5.80) X10*6/uL Hgb 10.9 L (14.0-18.0) g/dl Hct 33.6 L (42.0-52.0) % MCV 88.0 (80.0-98.0) fL MCH 28.5 (27.0-33.0) pg MCHC 32.4 (31.0-36.0) g/dl RDW 15.4 (11.0-16.0) % Plt Count 204 (160-400) X10*3/uL MPV 11.5 (9.4-12.4) fL Immature Gran % (Auto) 0.3 (0.0-0.4) % Neut % (Auto) 70.4 (45-73) % Lymph % (Auto) 16.2 L (20-40) % [place] % (Auto) 10.2 (2-11) % Eos % (Auto) 2.3 (0-4) % Baso % (Auto) 0.6 (0-2) % Lymph # (Auto) 1.4 (1.2-4.9) X10*3/uL [place] # (Auto) 0.9 (0.1-1.2) X10*3/uL Eos # (Auto) 0.2 (0.0-0.4) X10*3/uL Baso # (Auto) 0.1 (0.0-0.2) X10*3/uL Abs Immat Gran (auto) 0.03 (0.00-0.03) X10*3/uL Absolute Neuts (auto) 6.1 (2.0-8.3) x10*3/uL Absolute Nucleated RBC 0.000 (0.0-0.012) X10*3/uL Nucleated RBC % (auto) 0.0 (0.0-0.2) /100WBC PT 17.8 H (10.9-12.4) SEC INR 1.5 H (0.9-1.1) APTT Cancelled 36.6 Sodium 137 (135-145) mmol/L Potassium 4.5 (3.3-5.1) mmol/L Chloride 95 L (96-108) mmol/L Carbon Dioxide 26 (22-29) mmol/L Anion Gap 21 H (12-20) BUN 45 H (9-16) mg/dL Creatinine 2.48 H (0.5-1.4) mg/dL Estim Creat Clear Calc 28.7 Estimated GFR 25 Random Glucose 331 H (60-115) mg/dL Uric Acid 9.7 H (3.4-7.0) mg/dL Calcium 9.1 (8.4-10.2) mg/dL Magnesium 2.8 H (1.6-2.6) mg/dL Total Bilirubin 0.5 (0.0-1.0) mg/dL AST 33 (5-37) U/L ALT 14 (0-40) U/L Alkaline Phosphatase 93 (39-117) U/L Troponin I High Sens 10.3 D (<3.5-35.0) ng/L B-Natriuretic Peptide 222 H (<100) pg/mL Total Protein 7.8 (6.5-8.0) g/dL Albumin 3.8 (3.5-5.0) g/dL TSH 2.20 (0.32-4.0) uIU/mL Influenza Type A (PCR) (Negative) Influenza Type B (PCR) (Negative) RSV RNA Qual (PCR) (Negative) SARS-CoV-2 RNA (RT-PCR) (Negative) 02/27/25 Range/Units 20:36 WBC (4.8-10.8) X10*3/uL RBC (4.60-5.80) X10*6/uL Hgb (14.0-18.0) g/dl Hct (42.0-52.0) % MCV (80.0-98.0) fL MCH (27.0-33.0) pg MCHC (31.0-36.0) g/dl RDW (11.0-16.0) % Plt Count (160-400) X10*3/uL MPV (9.4-12.4) fL Immature Gran % (Auto) (0.0-0.4) % Neut % (Auto) (45-73) % Lymph % (Auto) (20-40) % [place] % (Auto) (2-11) % Eos % (Auto) (0-4) % Baso % (Auto) (0-2) % Lymph # (Auto) (1.2-4.9) X10*3/uL [place] # (Auto) (0.1-1.2) X10*3/uL Eos # (Auto) (0.0-0.4) X10*3/uL Baso # (Auto) (0.0-0.2) X10*3/uL Abs Immat Gran (auto) (0.00-0.03) X10*3/uL Absolute Neuts (auto) (2.0-8.3) x10*3/uL Absolute Nucleated RBC (0.0-0.012) X10*3/uL Nucleated RBC % (auto) (0.0-0.2) /100WBC PT (10.9-12.4) SEC INR (0.9-1.1) APTT Sodium (135-145) mmol/L Potassium (3.3-5.1) mmol/L Chloride (96-108) mmol/L Carbon Dioxide (22-29) mmol/L Anion Gap (12-20) BUN (9-16) mg/dL Creatinine (0.5-1.4) mg/dL Estim Creat Clear Calc Estimated GFR Random Glucose (60-115) mg/dL Uric Acid (3.4-7.0) mg/dL Calcium (8.4-10.2) mg/dL Magnesium (1.6-2.6) mg/dL Total Bilirubin (0.0-1.0) mg/dL AST (5-37) U/L ALT (0-40) U/L Alkaline Phosphatase (39-117) U/L Troponin I High Sens (<3.5-35.0) ng/L B-Natriuretic Peptide (<100) pg/mL Total Protein (6.5-8.0) g/dL Albumin (3.5-5.0) g/dL TSH (0.32-4.0) uIU/mL Influenza Type A (PCR) NEGATIVE (Negative) Influenza Type B (PCR) NEGATIVE (Negative) RSV RNA Qual (PCR) NEGATIVE (Negative) SARS-CoV-2 RNA (RT-PCR) NEGATIVE (Negative) Independent Interpretation I performed an independent interpretation of an: CT Scan Radiology Impression Discussion of test interpretation with radiology: I have reviewed the radiologist's reading. Radiologist Impression: [place] [id number] CT Scan Report Signed Patient: Dayton Oquendo MR#: [id number] : 1945 Acct:[id number] Age/Sex: 79 / M ADM Date: 02/27/25 Loc: .ED Attending Dr: Ordering Physician: Josef Lundberg MD Date of Service: 02/27/25 Procedure(s): CT angio head neck Accession Number(s): [id number] cc: Physician,Unknown ; Josef Lundberg MD~ Report Number: [id number]: Total DLP = 1709.00 mGy-cm CLINICAL HISTORY: Acute neck pain during exam? Dissection CT head without contrast Comparison: 03/28/2023 Findings: No intracranial mass, midline shift, hydrocephalus, or acute hemorrhage. Moderate chronic ischemic white matter disease with volume loss. No acute process in sinuses or mastoids. No acute bony abnormality. Impression: No acute intracranial process CT angiogram head/[place] with contrast, Multiplanar reconstructions and 3D postprocessing Comparison: None Findings: Normal configuration noted in the [place] vessels. No acute filling defect or vessel truncation noted. Dural venous sinuses patent without filling defects. No focal aneurysm or central vascular abnormality. No peripheral vascular malformations demonstrated. Impression: No acute vascular abnormalities. CT angiogram of the neck/carotid arteries with contrast, Multiplanar reconstructions and MIPS Comparison: None Findings: Great vessel origins are patent at the level of the aortic arch. Bilateral subclavian arteries are patent without stenosis. Bilateral vertebral artery origins are patent without stenosis. No evidence for vertebral dissection. Right vertebral dominant. Bilateral common carotid arteries are unremarkable. Bilateral carotid bulbs demonstrate no significant plaque. No significant bilateral internal carotid artery stenosis. No significant soft tissue mass or adenopathy. No significant focal bony abnormalities. Minimal left pleural effusion partially visualized. Impression: No significant vascular abnormalities This document has been electronically signed by: Emigdio Lyon MD on 02/27/2025 21:39:59 Discharge Plan Discharge Clinical Impression: Acute kidney injury superimposed on chronic kidney disease, Seizure Patient Disposition: Admitted As Inpatient
--- NOTE | 2025-02-27 19:09 | ECG_ITS ---
Test Reason : cp Blood Pressure : */* mmHG Vent. Rate : 58 BPM Atrial Rate : * BPM P-R Int : * ms QRS Dur : 82 ms QT Int : 464 ms P-R-T Axes : * 28 -22 degrees QTcB Int : 455 ms Atrial fibrillation with slow ventricular response Nonspecific ST and T wave abnormality Abnormal ECG When compared with ECG of 08-Jan-2025 08:43, No significant changes seen Referred By: Josef Lundberg Electronically Signed By: EMERSON LIANG
[2025-02-27 19:55] LABS: MANUAL DIFF FLAG NO
[2025-02-27 19:59] LABS: Basophils Absolute Auto 0.1 X10*3/uL (0.0-0.2); Basophils Percent Auto 0.6 % (0-2); Eosinophils Absolute Auto 0.2 X10*3/uL (0.0-0.4); Eosinophils Percent Auto 2.3 % (0-4); Hematocrit 33.6 % (42.0-52.0); Hemoglobin 10.9 g/dl (14.0-18.0); Imm Gran Abs Auto 0.03 X10*3/uL (0.00-0.03); Imm Gran Pct Auto 0.3 % (0.0-0.4); Lymphocytes Absolute Auto 1.4 X10*3/uL (1.2-4.9); Lymphocytes Percent Auto 16.2 % (20-40); Mean Corpuscular HGB Conc 32.4 g/dl (31.0-36.0); Mean Corpuscular Hemoglobin 28.5 pg (27.0-33.0); Mean Platelet Volume 11.5 fL (9.4-12.4); Monocytes Absolute Auto 0.9 X10*3/uL (0.1-1.2); Monocytes Percent Auto 10.2 % (2-11); Neutrophils Absolute Auto 6.1 x10*3/uL (2.0-8.3); Neutrophils Percent Auto 70.4 % (45-73); Platelet Count 204 X10*3/uL (160-400); Red Blood Count 3.82 X10*6/uL (4.60-5.80); Red Cell Distribution Width 15.4 % (11.0-16.0); White Blood Count 8.7 X10*3/uL (4.8-10.8)
--- OUTSIDE RECORDS SUMMARY | 2025-02-27 20:06 | XMS_ITS | Encounter Summary ---
Author Organization [email or web address] [facility] Address [address] [place] [address] [address] [place] [address] Care Team Providers Care General Superintendent Name Role Phone Kathy Villafana MD Primary Care Provider [phone] Reason for Visit * Reason Comments Med Refill Encounter Details Date Type Department Care Team (Late st Contact Info) Description 05/16/2023 Refill [facility] [address] [place] [address] [phone] Kathy Villafana MD [address] [place] [place] [address] [phone] Social History Tobacco Use Types Packs/Day Years [...] as of this encounter Plan of Treatment Upcoming Encounters Date Type Department Care Team (Late st Contact Info) Description 05/11/2025 3:45 PM EDT Office Visit [facility] [address] [place] [address] [phone] Kathy Villafana MD [address] [place] [place] [address] [phone] documented as of this encounter Visit Diagnoses Not on filedocumented in this encounter Additional Health Concerns Assessment Noted Time PHQ-9 Depression Total Score: 0 01/22/20 23 3:42 PM EST documented as of this encounter Care Teams General Superintendent Relationship Specialty Start Date End Date Kathy Villafana MD [address] [place] [address] PCP - General Family Medicine 08/05/21 [facility] 12/04/24 Corinne [facility] 01/15/25 documented as of this encounter
--- OUTSIDE RECORDS SUMMARY | 2025-02-27 20:06 | XMS_ITS | Encounter Summary ---
Author Organization [email or web address] Address [address] [facility] [address] [place] [address] Care Team Providers Care Rotary Lithographic Press Operator Name Role Phone Kathy Villafana MD Primary Care Provider [phone] Encounter Details Date Type Department Care Team (Late st Contact Info) Description 01/12/2023 Orders Only [facility] [address] [place] [address] Mary Ann Skaggs LPN Social History Tobacco [...] Description 05/11/2025 3:45 PM EDT Office Visit [facility] [address] [place] [address] Kathy Villafana MD [address] [place] [address] documented as of this encounter Visit Diagnoses Not on filedocumented in this encounter Care Teams Rotary Lithographic Press Operator Relationship Specialty Start Date End Date Kathy Villafana MD [address] [place] [address] PCP - General Family Medicine 08/05/21 [facility] documented as of this encounter
--- OUTSIDE RECORDS SUMMARY | 2025-02-27 20:06 | XMS_ITS | Encounter Summary ---
Author Organization [employer] [facility] Address [address] [facility] 7t [place] [address] Care Team Providers Care Dye House Worker Name Role Phone Kathy Villafana MD Primary Care Provider [phone] Encounter Details Date Type Department Care Team (Late Contact Info) Description 05/22/2023 Abstract [facility] [address] [place], [place] [phone] Tr Tay DDS [address] [place], [place] [phone] Social History Tobacco Use Types Packs/Day Years [...] Upcoming Encounters Date Type Department Care Team ([facility] Contact Info) Description 05/11/2025 3:45 PM EDT Office Visit [facility] [address] [place], [place] [phone] Kathy Villafana MD [address] [place] [address] documented as of this encounter Visit Diagnoses Not on filedocumented in this encounter Additional Health Concerns Assessment Noted Time PHQ-9 Depression Total Score: 0 01/22/20 23 3:42 PM EST documented as of this encounter Care Teams Dye House Worker Relationship Specialty Start Date End Date Kathy Villafana MD [address] [place] [address] PCP - General Family Medicine 08/05/21 [facility] 12/04/24 Corinne [facility] 01/15/25 documented as of this encounter
--- OUTSIDE RECORDS SUMMARY | 2025-02-27 20:06 | XMS_ITS | Encounter Summary ---
Author Organization [employer] Address [address] [facility] [address] [place] [address] Care Team Providers Care Fishing Vessel Deckhand Name Role Phone Kathy Villafana MD Primary Care Provider [phone] Reason for Visit * Reason Onset Date Comments Appointment Request 02/12/2025 Encounter Details Date Type Department Care Team ([facility] st Contact Info) Description 02/12/[address] [facility] [address] [place], [place] [phone] Kathy Villafana MD [address] [place], [place] [phone] Appointment Request Social History Tobacco Use Types [...] encounter Miscellaneous Notes * Telephone Encounter - Rekha Calero [place] - 02/19/2025 11:11 AM EDT Telephone call to patient to schedule the following recall: Visit type: Office visit Appointment notes: f/u Patient agree to appointment on 05/11/25 at 3:45 PM with Broderick. documented in this encounter Plan of Treatment Upcoming Encounters Date Type Department Care Team (Late st Contact Info) Description 05/11/2025 3:45 PM EDT Office Visit [facility] [address] [place] [address] Kathy Villafana MD [address] [place] [address] documented as of this encounter Visit Diagnoses Not on filedocumented in this encounter Additional Health Concerns Assessment Noted Time PHQ-9 Depression Total Score: 0 02/20/20 24 2:34 PM EDT documented as of this encounter Care Teams Fishing Vessel Deckhand Relationship Specialty Start Date End Date Kathy Villafana MD [address] [place] [phone] PCP - General Family Medicine 08/05/21 [facility] 12/04/24 Corinne A 01/15/25 documented as of this encounter
--- OUTSIDE RECORDS SUMMARY | 2025-02-27 20:06 | XMS_ITS | Encounter Summary ---
Author Organization [employer] Address [address] [place] [address] Care Team Providers Care Supervisor Brine Name Role Phone Kathy Villafana MD Primary Care Provider [phone] Encounter Details Date Type Department Care Team (Late st Contact Info) Description 02/09/2025 Telephone [facility] [address] [place], [place] [phone] Kathy Villafana MD [address] [place], [place] [phone] Social History Tobacco Use Types Packs/Day Years [...] Description 05/11/2025 3:45 PM EDT Office Visit [facility] [address] [place] [address] Kathy Villafana MD [address] [place] [address] documented as of this encounter Visit Diagnoses Not on filedocumented in this encounter Additional Health Concerns Assessment Noted Time PHQ-9 Depression Total Score: 0 02/20/20 24 2:34 PM EDT documented as of this encounter Care Teams Supervisor Brine Relationship Specialty Start Date End Date Kathy Villafana MD [address] [place] [phone] PCP - General Family Medicine 08/05/21 [facility] 12/04/24 Corinne A 01/15/25 documented as of this encounter
--- OUTSIDE RECORDS SUMMARY | 2025-02-27 20:06 | XMS_ITS | Encounter Summary ---
Author Organization [employer] Address [address] [facility] 7[address] [place] [address] Care Team Providers Care Radial Drill Operator For Plastic Name Role Phone Kathy Villafana MD Primary Care Provider [phone] Encounter Details Date Type Department Care Team (Late st Contact Info) Description 12/12/2022 Orders Only [facility] [address] [place] [address] Mary Ann Skaggs LPN Social History Tobacco [...] Description 05/11/2025 3:45 PM EDT Office Visit [facility] [address] [place] [address] Kathy Villafana MD [address] [place] [address] documented as of this encounter Visit Diagnoses Not on filedocumented in this encounter Care Teams Radial Drill Operator For Plastic Relationship Specialty Start Date End Date Kathy Villafana MD [address] [place] [address] PCP - General Family Medicine 08/05/21 [facility] documented as of this encounter
--- OUTSIDE RECORDS SUMMARY | 2025-02-27 20:06 | XMS_ITS | Clinical Summary ---
Author Organization [employer] Address [address] [facility] [address] [place] [address] Care Team Providers Care Supervisory Investigative Specialist Name Role Phone Kathy Villafana MD Primary Care Provider [phone] Allergies No known active allergies Medications Blood [...] low blood sugar (LESS THAN 70mg/dL) Active Clotrimazole Anti-Fungal 1 % cream APPLY TOPICALLY TO AFFECTED AREA(S) TWICE DAILY FOR 28 DAYS 023 Active ketoconazole (NIZOral) 2 % shampoo APPLY TOPICALLY TO SCALP AND alrededor de las orejas THEN RINSE TWICE A WEEK 120 mL 6 024 Active insulin aspart protamine-insuli n aspart (NovoLOG MIX 70/30) (70-30) 100 UNIT/ML injectionIndicat ions:Type 2 diabetes mellitus without complication, with long-term current use of insulin ([facility]) INJECT 76 UNITS SUBCUTANEOUSLY WITH BREAKFAST, AND INJECT 76 UNITS SUBCUTANEOUSLY WITH DINNER 50 mL 11 024 Active FREESTYLE LITE test strip TEST BLOOD SUGAR 3 TIMES A DAY 100 strip 11 024 Active allopurinol (Zyloprim) 100 MG tablet TAKE 1/2 TABLET BY MOUTH EVERY MORNING (GOUT) 45 tablet 3 024 Active Petrolatum 42 % ointment APPLY TOPICALLY NEEDED FOR DRY SKIN 100 g 3 Active Diclofenac Sodium 1 % gelIndications:C hronic midline low back pain without sciatica Use twice daily affected areas 150 g Active Continuous Glucose Warehouse Assembly Worker (FreeStyle Park 2 Altha) deviceIndication s:Type 2 diabetes mellitus with diabetic neuropathy, with long-term current use of insulin ([facility]) Scan sensor every 8 hours 1 each Active Continuous Glucose Sensor (FreeStyle Park 2 Sensor) miscIndications: Type 2 diabetes mellitus with diabetic neuropathy, with long-term current use of insulin ([facility]) Apply 1 sensor every 14 days 2 each Active apixaban (Eliquis) 5 MG tabletIndication s:Atrial fibrillation, unspecified type ([facility]) TAKE 1 TABLET BY MOUTH TWICE DAILY IN THE MORNING AND IN THE EVENING 60 tablet 6 Active UltiCare Insulin Syringe 31G X 5/16 1 ML misc USE DIRECTED TWICE DAILY 100 each 11 Active triamcinolone (Kenalog) 0.1 % creamIndications :Rash [...] THREE TIMES DAILY 100 each 11 Active atorvastatin (Lipitor) 40 MG tabletIndication s:Other hyperlipidemia TAKE 1 TABLET BY MOUTH AT BEDTIME 90 tablet 3 Active [facility] Aspirin Adult Low Dose 81 MG chewable tablet Chew 1 tablet (81 mg) Once per day. 30 tablet Active isosorbide mononitrate ER (Imdur) 60 MG 24 hr tablet Take 1 tablet (60 mg) by mouth Once per day. 30 tablet Active metoprolol tartrate (Lopressor) 100 MG tablet TAKE 1 TABLET BY MOUTH TWICE DAILY IN THE MORNING AND IN THE EVENING WITH FOOD 180 tablet Active magnesium oxide 250 MG tablet TAKE 1 TABLET BY MOUTH EVERY MORNING 90 tablet Active donepezil (Aricept) 10 MG tablet TAKE 1 TABLET BY MOUTH AT BEDTIME 90 tablet Active Multiple Vitamins-Mineral s (Cerovite Senior) tablet TAKE 1 TABLET BY MOUTH EVERY MORNING 90 tablet Active white petrolatum gel Apply topically if needed for dry skin. 71 g 1 Active TRUEplus Lancets 33G miscIndications: Type 2 diabetes mellitus with hyperglycemia, with long-term current use of insulin ([facility]) TEST BLOOD SUGAR THREE TIMES DAILY 100 each 11 Active Blood Glucose Monitoring Suppl (FreeStyle Lite) device Inject under the skin 2 times daily. Test daily before all meals/snacks and once before bedtime. 1 each Active Misc. Devices (Pulse Oximeter) misc 1 each if needed (SOB, cough). 1 each Active gabapentin (Neurontin) 800 MG tablet TAKE 1 TABLET BY MOUTH TWICE DAILY IN THE MORNING AND IN THE EVENING 180 tablet 3 Active omeprazole (PriLOSEC) [address] capsule TAKE 1 CAPSULE BY MOUTH TWICE DAILY IN THE MORNING AND IN THE EVENING 180 capsule 3 Active dapagliflozin (Farxiga) 5 MG Take 1 tablet (5 mg) by mouth Once per day. 30 tablet 025 2025 Active bumetanide (Bumex) 1 MG tablet Take 1 tablet (1 mg) by mouth 2 times daily. 60 tablet Active diphenhydrAMINE (Nell-Dryl) 25 MG tablet TAKE 1/2 TABLET BY MOUTH AT BEDTIME NEEDED 90 tablet 3 Active amLODIPine (Norvasc) 2.5 MG tablet TAKE 1 TABLET BY MOUTH EVERY MORNING 30 tablet 11 Active tamsulosin (Flomax) 0.4 MG 24 hr capsule TAKE 1 CAPSULE BY MOUTH AT BEDTIME 30 capsule 11 Active cetirizine (ZyrTEC) 10 MG tablet TAKE 1 TABLET BY MOUTH EVERY MORNING 90 tablet 3 Active hydrocortisone 2.5 % cream APPLY TOPICALLY TO THE AFFECTED AREA(S) THREE TIMES DAILY IN THE MORNING, AT NOON, AND AT BEDTIME 30 g 1 Active gabapentin (Neurontin) 800 MG tablet Take 1 tablet (800 mg) by mouth 2 times daily. 180 tablet 3 024 2024 Discontinued diphenhydrAMINE (Nell-Dryl) 25 MG tablet TAKE 1/2 TABLET BY MOUTH AT BEDTIME NEEDED 90 tablet 3 024 2024 Discontinued(R eorder (will not trigger notification to Pharmacy)) cetirizine (ZyrTEC) 10 MG tablet TAKE 1 TABLET BY MOUTH EVERY MORNING 90 tablet 2024 Discontinued omeprazole (PriLOSEC) [address] capsule Take 1 capsule by mouth 2 times daily. 024 2024 Discontinued amLODIPine (Norvasc) 5 MG tablet Take 0.5 tablets (2.5 mg) by mouth Once per day. 15 tablet 2024 Discontinued bumetanide (Bumex) 1 MG tablet Take 1 tablet (1 mg) by mouth Once per day. 30 tablet 025 2024 Discontinued(D iscontinued by another clinician) tamsulosin (Flomax) 0.4 MG 24 hr capsule Take 1 capsule (0.4 mg) by mouth at bedtime. 30 capsule 025 2024 Discontinued hydrocortisone 2.5 % cream Apply topically in the morning, at noon, and at bedtime. 28 g 1 025 2024 Discontinued bumetanide (Bumex) 1 MG tablet Take 2 tablets by mouth 2 times daily. 2024 Discontinued(R eorder (will not trigger notification to Pharmacy)) Active Problems Problem Noted Date Diagnosed Date Chronic renal disease, stage IV 12/16/2024 Obesity, morbid 09/26/2024 Hospital discharge follow-up 07/10/2024 Assessment & Plan (02/10/2025 7:09 AM EDT): Needs Bumex in his medbox, taking it 1mg BID. I called [employer] to confirm that order, BMP ordered to assess renal and electrolyte status on this dose. If EGFR> 25, will start Farxiga 5mg to try to prevent further CHF exacerbation/hospitalizations Needs more Benadryl, still not sleeping well, but Benadryl helps a little bit. Order placed Assessment & Plan (07/10/2024 4:07 PM EDT): [...] recurrent sebaceous cysts on his back, his spiritual care coordinator recently drained one and although there is [...] will be referred to PT/OT clinic for [id number] examination, and after evaluation by PT/OT will order a power mobility device. Chronic periodontitis 05/21/2023 Alzheimer's disease 01/22/2023 Assessment & Plan (05/21/2024 10:21 AM EDT): Continue Donepezil 10mg and Memantine 10mg daily Son is RUBBER PRESS OPERATOR, needs assistance with paperwork for medical power or conveyor loader Decided against medical guardianship due to fears he would become responsible for debts of his father Continue day/night cycles Continue gentle redirection during hallucinations Assessment & Plan (06/15/2023 6:06 AM EDT): Continue Donepezil 10mg and Memantine 10mg daily Son is RUBBER PRESS OPERATOR, needs assistance with paperwork for medical power or conveyor loader Decided against medical guardianship due to fears he would become responsible for debts of his father Continue day/night cycles Continue gentle redirection during hallucinations Assessment & Plan (01/25/2023 1:02 PM EST): Continue Donepezil 10mg Son is RUBBER PRESS OPERATOR and medical power or conveyor loader Atrial fibrillation 01/22/2023 Assessment & Plan (01/25/2023 [...] Encounters Date Type Department Care Team Description 02/16/2025 Telephone [facility] [address] [place] [phone] Kathy Villafana MD No Show 02/16/2025 Telephone [facility] [address] [place] [phone] Kathy Villafana MD 02/16/2025 Refill [facility] [address] [place] [address] Kathy Villafana MD 02/12/2025 Telephone [facility] [address] [place] [phone] Kathy Villafana MD Appointment Request 02/12/2025 Refill [facility] [address] [place] [phone] Kathy Villafana MD 02/09/2025 2:45 PM EDT Telemedicine [facility] [address] [place] [phone] Kathy Villafana MD Hospital discharge follow-up (Primary Dx); CKD stage 3 secondary to diabetes (CMS/HCC); Dietary counseling; Exercise counseling; Class 2 severe obesity with serious comorbidity and body mass index (BMI) of 36.0 to 36.9 in adult, unspecified obesity type (CMS/HCC); Alzheimer's disease (CMS/HCC); Generalized edema; Poor mobility 02/09/2025 Telephone [facility] [address] [place] [phone] Kathy Villafana MD 02/09/2025 Travel 02/09/2025 Telephone [facility] [address] [place] [phone] Kathy Villafana MD [employer] (Incontinence supply, glove, exam vnyl lg) 02/09/2025 Telephone [facility] [address] [place] [phone] Amairani Knowles, PharmD 02/02/2025 Refill [facility] [address] [place] [phone] Kathy Villafana MD 01/20/2025 Patient Outreach [facility] [address] [place] [phone] Kathy Villafana MD Transition Of Care (Tcm) (HDF- Scheduled) 01/20/2025 Telephone [facility] [address] [place] [phone] Kathy Villafana MD Hospital Follow-up 01/16/2025 Telephone [facility] [address] [place] [phone] Kathy Villafana MD FYI 01/11/2025 Refill [facility] [address] [place] [phone] Kathy Villafana MD Type 2 diabetes mellitus with hyperglycemia, with long-term current use of insulin ([facility]) 01/09/2025 Orders Only [facility] [address] [place] [phone] Kathy Villafana MD 01/08/2025 Orders Only GENERIC EXTERNAL DATA DEPARTMENT Provider, Generic External Data 01/08/2025 Refill [facility] [address] [place] [address] Kathy Villafana MD 01/07/2025 Telephone [facility] [address] [place] [phone] Kathy Villafana MD New Med Request 01/06/2025 Orders Only GENERIC EXTERNAL DATA DEPARTMENT Provider, Generic External Data 01/02/2025 Telephone [facility] [address] [place] [phone] Kathy Villafana MD Lab Orders 01/02/[address] [phone] Kathy Villafana MD Durable Medical Equipment 12/16/2024 9:15 AM EST Office Visit [facility] [address] [place] [phone] Kathy Villafana MD Chronic renal disease, stage IV ([facility]) (Primary Dx); CKD stage 3 secondary to diabetes ([facility]); RSV (acute bronchiolitis due to respiratory syncytial virus) 12/16/2024 Refill [facility] [address] [place] [phone] Kathy Villafana MD 12/16/2024 Travel 12/09/2024 Refill [facility] [address] [place] [address] Shama Winter, PharmD 12/03/2024 Patient Outreach [facility] [address] [place], [place] [phone] Kathy Villafana MD Transition Of Care (Tcm) (HDF scheduled. ) 12/03/2024 Telephone [facility] [address] [place] [phone] Kathy Villafana MD Hospital Follow-up 12/02/2024 Refill [facility] [address] [place] [address] Kathy Villafana MD Other hyperlipidemia from Last 3 Months Social History Tobacco [...] 09/22/2024 2:28 PM EDT Plan of Treatment Upcoming Encounters Date Type Department Care Team (Late st Contact Info) Description 05/11/2025 3:45 PM EDT Office Visit [facility] [address], [place] [phone] Kathy Villafana MD [address] [place], [place] [phone] Health Maintenance Due Date Last Done Comments [...] Influenza Vaccine (#1) 2024 Diabetes: Hemoglobin A1C 12/23/202409/22/2 024, 07/10/2024, 02/20/2024, Additional history exists Depression Screening 02/19/2025 02/20/2024, 02/20/20 Diabetes: Foot Exam 02/19/2025 02/20/2024 Lipid Panel 02/19/2025 02/20/2024, 09/28/2021 SDOH Screening 02/19/2025 02/20/2024 Eye Exam 08/29/2025 08/29/2024, 02/2024, 08/29/2024, Additional history exists Tobacco Screening 02/09/2026 02/09/2025 Dental X-Ray: Full Mouth 05/22/2026 05/21/2023 Hepatitis [...] Associated Diagnosis Comments VENOUS BLOOD GAS Routine 01/08/2025 2:42 PM EST HIGH SENSITIVITY TROPONIN I Routine 01/08/2025 2:39 PM EST SARS COV2/INFLUENZA A/B AND RSV RNA QL NAAT Routine 01/08/2025 12:19 PM EST VENOUS BLOOD GAS Routine 01/08/2025 9:39 AM EST LACTIC ACID Routine 01/08/2025 9:32 AM EST APTT Routine 01/08/2025 9:32 AM EST PROTHROMBIN TIME-INR Routine 01/08/2025 9:32 AM EST XR CHEST 1 VIEW Routine 01/08/2025 9:18 AM EST XR CHEST 1 VIEW Routine 01/06/2025 4:13 PM EST VENOUS BLOOD GAS Routine 01/06/2025 3:44 PM EST B TYPE NATRIURETIC PEPTIDE (BNP) Routine 01/06/2025 3:40 PM EST BASIC METABOLIC PANEL Routine 01/06/2025 3:40 PM EST CBC WITH AUTO DIFFERENTIAL Routine 01/06/2025 3:40 PM EST SARS COV2/INFLUENZA A/B AND RSV RNA QL NAAT Routine 01/06/2025 3:40 PM EST POCT GLYCATED HEMOGLOBIN, TOTAL Routine 09/22/2024 [...] Maintenance Results * (ABNORMAL) VENOUS BLOOD GAS (01/08/2025 2:42 PM EST) Only the most recent of3 resultswithin the time period is included. VBG pH 7.32 7.32 - 7.43 [facility] Comment:METER #: [id number] additional_comment: Gary robles VBG PCO2 76 mmHg [facility] Comment:METER #: [id number] additional_comment: Gary robles VBG PO2 57 mmHg [facility] Comment:METER #: [id number] additional_comment: Gary robles VBG Base Excess 11.5 mmol/L [facility] Comment:METER #: [id number] additional_comment: Gary robles VBG HCO3 40(H) 22 - 26 mmol/L [facility] Comment:METER #: [id number] additional_comment: Gary robles O2 Sat, Cas 81.0 % [facility] Comment:METER #: [id number] additional_comment: Gary robles 01/08/2025 2:42 PM EST 01/08/2025 2:47 PM EST Generic External Data Provider LAB BLOOD ORDERAB LES Final Result Performing Organization Address [facility] Phone Number [facility] [address] [place] [phone] * High Sensitivity Troponin I (01/08/2025 2:39 PM EST) [facility] TROPONIN I HIGH SENSITIVITY 6.8 <3.5 - 35.0 ng/L [facility] Comment:The Patel high sens itivity Troponin-I results should beused in conjunction with other diagnostic information suchas ECG, clinical observations and information, and patientsymptoms to aid in the diagnosis of MT. 01/08/2025 2:39 PM EST 01/08/2025 2:43 PM EST Generic External Data Provider LAB BLOOD ORDERAB LES Final Result Performing Organization Address [facility] Number [facility] [address] [place] [phone] * SARS-CoV-2 RNA, Influenza A/B, and RSV RNA, Ql NAAT (01/08/2025 12:19 PM EST) Only the most recent of2 resultswithin the time period is included. Influenza A PCR NEGATIVE Negative [facility] Influenza B PCR NEGATIVE Negative [facility] Resp Syncy Virus RNA Qual PCR NEGATIVE Negative [facility] SARS COV2 PCR NEGATIVE Negative [facility] Comment:All test results mus t [...] use by authorized laboratories.Testing performed on the [employer] GeneXpert utilizingreal-time RT-PCR.All SARS CoV2 and positive influenza A/B results arereported to [facility]. 01/08/2025 12:1 9 PM EST 01/08/2025 12:21 PM EST Generic External Data Provider LAB MICROBIOLOGY - GENERAL ORDERABLES Final Result Performing Organization Address [facility] Co de Phone Number [facility] [address] [place] [phone] * (ABNORMAL) Partial Thromboplastin Time, Activated (APTT) (01/08/2025 9:32 AM EST) Partial Thromboplastin Time 37.2(H) 26.0 - 36.8 SEC [facility] Comment:For information rega rding the monitoring of direct thrombininhibitors, please refer to Pharmacy. 01/08/2025 9:32 AM EST 01/08/2025 9:39 AM EST Generic External Data Provider LAB BLOOD ORDERAB LES Final Result Performing Organization Address [facility] de Phone Number [facility] [address] [place] [phone] * (ABNORMAL) Prothrombin Time-INR (01/08/2025 9:32 AM EST) Prothrombin Time 17.3(H) 10.9 - 12.4 SEC [facility] INTERNATIONAL NORM RATIO 1.5(H) 0.9 - 1.1 [facility] Comment:INTERNATIONAL NORMAL IZED RATIO (INR) REFERENCE RANGES Reference RangeFor patients not on anticoagulant therapy: 0.9 - 1.1INR ranges for oral anticoagulanttherapy:For prevention and treatment of venous thrombosis and pulmonary embolism: 2.0 - 3.0For acute myocardial infarction with aspirin therapy: 2.0 - 3.0For acute myocardial infarction without aspirin therapy: 3.0 - 4.0For patients with mechanical prosthetic heart valves: 2.5 - 3.5 01/08/2025 9:32 AM EST 01/08/2025 9:39 AM EST Generic External Data Provider LAB BLOOD ORDERAB LES Final Result Performing Organization Address [facility] de Phone Number [facility] [address] [place] [phone] * Lactic Acid (01/08/2025 9:32 AM EST) Lactic Acid 1.3 0.5 - 2.0 mmol/L [facility] 01/08/2025 9:32 AM EST 01/08/2025 9:39 AM EST Generic External Data Provider LAB BLOOD ORDERAB LES Final Result Performing Organization Address [facility] de Phone Number [facility] [address] [place] [phone] * XR Chest 1 View (01/08/2025 9:18 AM EST) Only the most recent of2 resultswithin the time period is included. Anatomical Region Laterality Modality Chest Radiographic Agueda ging 01/08/2025 9:18 AM EST Narrative 01/08/2025 11:08 AM EST ? [facility] ?[address] ?[place] [address] ?XRay Report ? Signed ? Patient: Nilo Adriane,Dayton A ?MR#: ?? [id number] ? : 1945 ?Acct:[id number] ? Age/Sex: 79 / M ?ADM Date: 02/13/25 ? Loc: HO.ED ? Attending Dr: ? Ordering Physician: Subhash Corey MD ?? Date of Service: 01/08/25 ?? Procedure(s): XR chest 1V ?? Accession Number(s): [id number] ? cc: Kathy Villafana; Subhash Corey MD ? EXAMINATION: ??XR CHEST 1 VIEW ? HISTORY: Shortness of breath, hypoxia, rule out pneumonia, ? COMPARISON: Comparison is made with the prior examination dated ?? 01/06/2025. ? FINDINGS: ??A single AP portable view of the chest performed at 10:40 AM ?? is submitted. Again seen is opacification of both lung bases which may ?? represent atelectasis or pneumonia and pleural effusions. ??There is ?? mild pulmonary vascular congestion. No pneumothorax. ??The heart is ?? normal in size. ??There is degenerative disc disease of the spine. ? XR/XR chest 1V ?? IMPRESSION: ?? Mild pulmonary vascular congestion. Persistent opacification of both ?? lung bases which may represent atelectasis or pneumonia and pleural ?? fluid. ? Electronically signed by: ??Rony Lion MD ??01/08/2025 11:05 AM EST ? Dictated By: ?Rony Lion MD ? Signed By: ?<Electronically signed by Rony Lion MD in OV> ?01/08/25 1105 ? DD/ 0918 ? TD/TT: 01/08/25 1053 ? Sales Management Trainee: ? Procedure Note Jeremy, Image - 01/08/[address] [address] XRay Report Signed Patient: Dayton Oquendo AMR#: [id number] : 5Acct:[id number] Age/Sex: 79 / MADM Date: 01/08/25 Loc: HO.ED Attending Dr: Ordering Physician: Subhash Corey MD Date of Service: 01/08/25 Procedure(s): XR chest 1V Accession Number(s): [id number] cc: Kathy Villafana; Subhash Corey MD EXAMINATION: XR CHEST 1 VIEW HISTORY: Shortness of breath, hypoxia, rule out pneumonia, COMPARISON: Comparison is made with the prior examination dated 01/06/2025. FINDINGS: A single AP portable view of the chest performed at 10:40 AM is submitted. Again seen is opacification of both lung bases which may represent atelectasis or pneumonia and pleural effusions. There is mild pulmonary vascular congestion. No pneumothorax. The heart is normal in size. There is degenerative disc disease of the spine. XR/XR chest 1V IMPRESSION: Mild pulmonary vascular congestion. Persistent opacification of both lung bases which may represent atelectasis or pneumonia and pleural fluid. Electronically signed by: Rony Lion MD 01/08/2025 11:05 AM EST RP Dictated By: Rony Lion MD Signed By: <Electronically signed by Rony Lion MD in OV> 01/08/25 1105 DD/ 0918 TD/TT: 01/08/25 1053 Sales Management Trainee: [facility] External Provider IMG XR PROCEDURES Edited Result - Final * (ABNORMAL) CBC auto differential (01/06/2025 3:40 PM EST) White Blood Count 9.1 4.8 - 10.8 X10*3/uL [facility] Red Blood Count 3.42(L) 4.60 - 5.80 X10*6/uL [facility] Hemoglobin 10.2(L) 14.0 - 18.0 g/dl [facility] Hematocrit 33.1(L) 42.0 - 52.0 % [facility] Mean Corpuscular Volume 96.8 80.0 - 98.0 fL [facility] Mean Corpuscular Hemoglobin 29.8 27.0 - 33.0 pg [facility] Mean Corpuscular HGB Conc 30.8(L) 31.0 - 36.0 g/dl [facility] Red Cell Distribution Width 15.7 11.0 - 16.0 % [facility] Platelet Count 180 160 - 400 X10*3/uL [facility] Mean Platelet Volume 12.1 9.4 - 12.4 fL [facility] Neutrophils Percent Auto 85.2(H) 45 - 73 % [facility] Imm Gran Pct Auto 0.3 0.0 - 0.4 % [facility] Lymphocytes Percent Auto 7.4(L) 20 - 40 % [facility] Monocytes Percent Auto 5.9 2 - 11 % [facility] Eosinophils Percent Auto 1.0 0 - 4 % [facility] Basophils Percent Auto 0.2 0 - 2 % [facility] NRBC Pct Auto 0.0 0.0 - 0.2 /100WBC [facility] Neutrophils Absolute Auto 7.8 2.0 - 8.3 x10*3/uL [facility] Imm Gran Abs Auto 0.03 0.00 - 0.03 X10*3/uL [facility] Lymphocytes Absolute Auto 0.7(L) 1.2 - 4.9 X10*3/uL [facility] Monocytes Absolute Auto 0.5 0.1 - 1.2 X10*3/uL [facility] Eosinophils Absolute Auto 0.1 0.0 - 0.4 X10*3/uL [facility] Basophils Absolute Auto 0.0 0.0 - 0.2 X10*3/uL [facility] NRBC Abs Auto 0.000 0.0 - 0.012 X10*3/uL [facility] 01/06/2025 3:40 PM EST 01/06/2025 3:43 PM EST us Generic External Data Provider LAB BLOOD ORDERAB LES Final Result [facility] [address] [place] [phone] [phone] * (ABNORMAL) B Type Natriuretic Peptide (BNP) (01/06/2025 3:40 PM EST) B Type Natriuretic Peptide 430(H) <100 pg/mL [facility] Comment:For those patients w ho are being treated with Natrecor(nesiritide, recombinant BNP), BNP testing should beperformed at least two hours post treatment in order toensure that only endogenous levels of BNP are detected. 01/06/2025 3:40 PM EST 01/06/2025 3:43 PM EST Generic External Data Provider LAB BLOOD ORDERAB LES Final Result Performing Organization Address [facility]/ZIP Co de Phone Number [facility] [address] [place] [address] [phone] * (ABNORMAL) Basic Metabolic Panel (01/06/2025 3:40 PM EST) Sodium 139 135 - 145 mmol/L [facility] Potassium 5.6(H) 3.3 - 5.1 mmol/L [facility] Comment:Slight Hemolysis.Int erpret result with caution. Chloride 102 96 - 108 mmol/L [facility] Carbon Dioxide 28 22 - 29 mmol/L [facility] Anion Gap 15 12 - 20 [facility] Urea Nitrogen (BUN) 30(H) 9 - 16 mg/dL [facility] Creatinine, Serum 1.85(H) 0.5 - 1.4 mg/dL [facility] Creatinine Clr Calc Pharmacy TNP [facility] Comment:Unable to calculate eCrCL; all parameters not provided. Estimated Glomerular Filt Rate 35 [facility] Comment:Chronic Kidney Disea se: Estimated GFR < 60 mL/min/1.76j9Wzczhf Kidney Disease: Estimated GFR < 15 mL/min/1.73m2 Glucose 323(H) 60 - 115 mg/dL [facility] Calcium 8.8 8.4 - 10.2 mg/dL [facility] 01/06/2025 3:40 PM EST 01/06/2025 3:43 PM EST us Generic External Data Provider LAB BLOOD ORDERAB LES Final Result Performing Organization Address City/[facility]/ZIP Co de Phone Number [facility] [address] [place] [address] [phone] * (ABNORMAL) POCT HGB A1C (09/22/2024 2:39 PM EDT) Hemoglobin A1C 8.8(A) 4.0 - 6.0 % QC Media Lot # [id number] Lot# Expiration Date 713 Blood 09/22/2024 2:39 PM EDT Kathy Villafana MD POINT OF CARE TEST ENTER/EDIT ORDERABLES Final Result * Hepatitis C Antibody with Reflex to HCV, RNA, Quantitative, Real-Time PCR (02/20/2024 3:00 PM EDT) Pathologist [facility] Hepatitis C Antibody Nonreactive Nonreactive [facility] Comment:Antibodies to HCV no t detected; does not exclude early acuteHCV infection. Blood Venous blood specimen / Unknown 02/20/2024 3:00 PM EDT 02/20/2024 4:04 PM EDT Kathy Villafana MD LAB BLOOD ORDERABLES Final Res ult [facility] [address] [place] [address] [phone] * (ABNORMAL) Lipid Panel, Standard (02/20/2024 3:00 PM EDT) Triglycerides 186(H) <150 mg/dL [facility] Comment:Desirable Triglyceri de: less than 150 mg/dLBorderline High Triglyceride 150-199 mg/dLHigh Triglyceride: 200-499 mg/dLVery High Triglyceride: greater than or equal to 5OO mg/dL Cholesterol 159 <200 mg/dL [facility] Comment:Desirable Cholestero l: less than 200 mg/dLBorderline High Cholesterol: 200-239 mg/dLHigh Cholesterol: greater than 239 mg/dL LDL Cholesterol Calculated 78 <100 mg/dL [facility] Comment:Desirable LDL: less than 100 mg/dLNear [...] MD LAB BLOOD ORDERABLES Final Res ult [facility] [address] [place] [address] [phone] from Last 3 Months or Most Recently Relevant to Health Maintenance Insurance [facility] Advance Directives Documents on File Type Date Recorded Patient Caddie Expl anation Advance Directives and Livin g Will 06/28/2023 Health Care Proxy Care Teams Supervisory Investigative Specialist Relationship Specialty Start Date End Date Kathy Villafana MD [address] [place] [address] PCP - General Family Medicine 08/05/21 [facility] 12/04/24 Corinne [facility] 01/15/25
--- OUTSIDE RECORDS SUMMARY | 2025-02-27 20:07 | XMS_ITS | Encounter Summary ---
Author Organization [employer] Address [address] [place] [address] Care Team Providers Care Hospital Pharmacy Technician Name Role Phone Kathy Villafana MD Primary Care Provider [phone] Reason for Visit * Reason Onset Date Comments Hospital Follow-up 12/03/2024 Encounter Details Date Type Department Care Team ([facility] st Contact Info) Description 12/03/2024 Telephone [facility] [address] [place], [place] [phone] Kathy Villafana MD 230 [place], [place] [phone] Hospital Follow-up Social History Tobacco Use Types [...] from pt requesting a HDF appt. Hospital: [facility] Date of admission: 11/25/2024 Discharge date: 12/03/2024 Diagnosed: Heart Attack *Send message to [facility] Clinical Care Coordinators documented in this encounter Plan of Treatment Upcoming Encounters Date Type Department Care Team (Late st Contact Info) Description 05/11/2025 3:45 PM EDT Office Visit [facility] [address] [place] [phone] Ktahy Villafana MD [address] [place] [address] documented as of this encounter Visit Diagnoses Not on filedocumented in this encounter Additional Health Concerns Assessment Noted Time PHQ-9 Depression Total Score: 0 02/20/20 24 2:34 PM EDT documented as of this encounter Care Teams Hospital Pharmacy Technician Relationship Specialty Start Date End Date Kathy Villafana MD [address] [place] [address] PCP - General Family Medicine 08/05/21 [facility] 12/04/24 Corinne A 01/15/25 documented as of this encounter
--- OUTSIDE RECORDS SUMMARY | 2025-02-27 20:07 | XMS_ITS | Encounter Summary ---
Author Organization [employer] Address [address] 7[address] [place] [address] Care Team Providers Care Technician Chemical Cleaning Name Role Phone Kathy Villafana MD Primary Care Provider Reason for Visit * Reason Comments Med Refill Encounter Details Date Type Department Care Team ([facility] st Contact Info) Description 11/28/2023 Refill [facility] [address] [place], [place] [phone] Kathy Villafana MD [address] [place], [place] [phone] Social History Tobacco Use Types Packs/Day Years [...] Description 05/11/2025 3:45 PM EDT Office Visit [facility] [address] [place] [address] Kathy Villafana MD [address] [place] [address] documented as of this encounter Visit Diagnoses Not on filedocumented in this encounter Additional Health Concerns Assessment Noted Time PHQ-9 Depression Total Score: 0 01/22/20 23 3:42 PM EST documented as of this encounter Care Teams Technician Chemical Cleaning Relationship Specialty Start Date End Date Kathy Villafana MD [address] [place] [address] PCP - General Family Medicine 08/05/21 [facility] 12/04/24 Corinne BROOKSA 01/15/25 documented as of this encounter
--- OUTSIDE RECORDS SUMMARY | 2025-02-27 20:07 | XMS_ITS | Encounter Summary ---
Author Organization [employer] Address [address] [facility] 7t [place] [address] Care Team Providers Care Machine Oiler Name Role Phone Kathy Villafana MD Primary Care Provider [phone] Reason for Visit * Reason Onset Date Comments triage 12/06/2022 Encounter Details Date Type Department Care Team (Late st Contact Info) Description 12/06/2022 Telephone [facility] [address] [place], [place] [phone] Kathy Villafana MD [address] [place], [place] [phone] triage Social History Tobacco Use Types Packs/Day [...] No answer LVM to return call to [facility] triage line. * Telephone Encounter - Abhishek Herman - 12/06/2022 2:25 PM EST Symptom: Constipation Outcome: Schedule an appointment to be seen within 24 hours Reason: No high acuity concerns reported by caller The caller accepted this outcome speaks tristanian documented in this encounter Plan of Treatment Upcoming Encounters Date Type Department Care Team (Late st Contact Info) Description 05/11/2025 3:45 PM EDT Office Visit [facility] [address] [place] [address] Kathy Villafana MD [address] [place] [address] documented as of this encounter Visit Diagnoses Not on filedocumented in this encounter Care Teams Machine Oiler Relationship Specialty Start Date End Date Kathy Villafana MD [address] [place], [place] [phone] PCP - General Family Medicine 08/05/21 [facility] 12/04/24 Corinne [facility]NA 01/15/25 documented as of this encounter
--- OUTSIDE RECORDS SUMMARY | 2025-02-27 20:07 | XMS_ITS | Encounter Summary ---
Author Organization [employer] Address [address] 7t [place] [address] Care Team Providers Care Wedding Cake Designer Name Role Phone Kathy Villafana MD Primary Care Provider [phone] Encounter Details Date Type Department Care Team (Late st Contact Info) Description 01/09/2025 Orders Only [facility] [address] [place], [place] [phone] Kathy Villafana MD [address] [place], [place] [phone] Social History Tobacco Use Types Packs/Day Years [...] 3:45 PM EDT Office Visit [facility] [address] [place] [address] Kathy Villafana MD [address] [place] [address] documented as of this encounter Visit Diagnoses Not on filedocumented in this encounter Additional Health Concerns Assessment Noted Time PHQ-9 Depression Total Score: 0 02/20/20 24 2:34 PM EDT documented as of this encounter Care Teams Wedding Cake Designer Relationship Specialty Start Date End Date Kathy Villafana MD [address] [place] [phone] PCP - General Family Medicine 08/05/21 [facility] 12/04/24 Corinne A 01/15/25 documented as of this encounter
--- OUTSIDE RECORDS SUMMARY | 2025-02-27 20:07 | XMS_ITS | Encounter Summary ---
Author Organization [employer] Address [address] 7[address] [place] [address] Care Team Providers Care Facilities Specialist Name Role Phone Kathy Villafana MD Primary Care Provider [phone] Encounter Details Date Type Department Care Team (Late st Contact Info) Description 11/14/2023 Orders Only [facility] [address] [place], [place] [phone] Kathy Villafana MD [address] [place], [place] [phone] Social History Tobacco Use Types Packs/Day Years [...] 05/11/2025 3:45 PM EDT Office Visit [facility] [address] [place] [address] Kathy Villafana MD [address] [place] [address] documented as of this encounter Visit Diagnoses Not on filedocumented in this encounter Additional Health Concerns Assessment Noted Time PHQ-9 Depression Total Score: 0 01/22/20 23 3:42 PM EST documented as of this encounter Care Teams Facilities Specialist Relationship Specialty Start Date End Date Kathy Villafana MD [address] [place] [address] PCP - General Family Medicine 08/05/21 [facility] 12/04/24 Corinne BROOKSA 01/15/25 documented as of this encounter
--- OUTSIDE RECORDS SUMMARY | 2025-02-27 20:07 | XMS_ITS | Encounter Summary ---
Author Organization [employer] Address [address] [facility] [address] [facility] [place] [address] Care Team Providers Care Php Programmer Name Role Phone Kathy Villafana MD Primary Care Provider [phone] Reason for Visit * Reason Onset Date Comments Hospital Follow-up 06/05/2024 Encounter Details Date Type Department Care Team ([facility] st Contact Info) Description 06/05/2024 Telephone [facility] [address] [place], [place] [phone] Kathy Villafana MD [address] [place], [place] [phone] Hospital Follow-up Social History Tobacco Use Types [...] from pt requesting a HDF appt. Hospital: [facility] Date of admission: 05/19 Discharge date: 05/21 Diagnosed: Fever and swelling documented in this encounter Plan of Treatment Upcoming Encounters Date Type Department Care Team (Late st Contact Info) Description 05/11/2025 3:45 PM EDT Office Visit [facility] [address] [place] [address] Kathy Villafana MD [address] [place] [address] documented as of this encounter Visit Diagnoses Not on filedocumented in this encounter Additional Health Concerns Assessment Noted Time PHQ-9 Depression Total Score: 0 02/20/20 24 2:34 PM EDT documented as of this encounter Care Teams Php Programmer Relationship Specialty Start Date End Date Kathy Villafana MD [address] [place] [address] PCP - General Family Medicine 08/05/21 [facility] 12/04/24 Corinne [facility]NA 01/15/25 documented as of this encounter
--- OUTSIDE RECORDS SUMMARY | 2025-02-27 20:07 | XMS_ITS | Encounter Summary ---
Author Organization [employer] Address [address] 7[address] [place] [address] Care Team Providers Care Director Business Management Name Role Phone Kathy Villafana MD Primary Care Provider [phone] Encounter Details Date Type Department Care Team (Late st Contact Info) Description 09/18/2023 Abstract [facility] [address] [place], [place] [phone] Kathy Villafana MD [address] [place], [place] [phone] Social History Tobacco Use Types Packs/Day Years [...] Description 05/11/2025 3:45 PM EDT Office Visit [facility] [address] [place] [address] Kathy Villafana MD [address] [place] [address] documented as of this encounter Visit Diagnoses Not on filedocumented in this encounter Additional Health Concerns Assessment Noted Time PHQ-9 Depression Total Score: 0 01/22/20 23 3:42 PM EST documented as of this encounter Care Teams Director Business Management Relationship Specialty Start Date End Date Kathy Villafana MD [address] [place] [address] PCP - General Family Medicine 08/05/21 [facility] 12/04/24 Corinne BROOKSA 01/15/25 documented as of this encounter
--- OUTSIDE RECORDS SUMMARY | 2025-02-27 20:07 | XMS_ITS | Encounter Summary ---
Author Organization [employer] Address [address] 7t [place] [address] Care Team Providers Care Environmental Educator Name Role Phone Kathy Villafana MD Primary Care Provider [phone] Encounter Details Date Type Department Care Team (Late st Contact Info) Description 12/20/2023 Abstract [facility] [address] [place], [place] [phone] Kathy Villafana MD [address] [place], [place] [phone] Social History Tobacco Use Types Packs/Day Years [...] Description 05/11/2025 3:45 PM EDT Office Visit [facility] [address] [place] [address] Kathy Villafana MD [address] [place] [address] documented as of this encounter Visit Diagnoses Not on filedocumented in this encounter Additional Health Concerns Assessment Noted Time PHQ-9 Depression Total Score: 0 01/22/20 23 3:42 PM EST documented as of this encounter Care Teams Environmental Educator Relationship Specialty Start Date End Date Kathy Villafana MD [address] [place] [address] PCP - General Family Medicine 08/05/21 [facility] 12/04/24 Corinne BROOKSA 01/15/25 documented as of this encounter
--- OUTSIDE RECORDS SUMMARY | 2025-02-27 20:07 | XMS_ITS | Encounter Summary ---
Author Organization [employer] Address [address] 7t [place] [address] Care Team Providers Care Coat Fitter Name Role Phone Kathy Villafana MD Primary Care Provider [phone] Encounter Details Date Type Department Care Team (Late st Contact Info) Description 09/24/2023 Abstract [facility]INE 230 [place], [place] [phone] Kathy Villafana MD 230 [place], [place] [phone] Social History Tobacco Use Types Packs/Day Years [...] 05/11/2025 3:45 PM EDT Office Visit [facility]INE [address] [place] [address] Kathy Villafana MD [address] [place] [address] documented as of this encounter Visit Diagnoses Not on filedocumented in this encounter Additional Health Concerns Assessment Noted Time PHQ-9 Depression Total Score: 0 01/22/20 23 3:42 PM EST documented as of this encounter Care Teams Coat Fitter Relationship Specialty Start Date End Date Kathy Villafana MD [address] [place] [address] PCP - General Family Medicine 08/05/21 [facility] 12/04/24 Corinne BROOKSA 01/15/25 documented as of this encounter
--- OUTSIDE RECORDS SUMMARY | 2025-02-27 20:07 | XMS_ITS | Encounter Summary ---
Author Organization [facility] [facility] Address [address] [place] [address] 7t [place] [address] Care Team Providers Care Construction Framer Name Role Phone Kathy Villafana MD Primary Care Provider [phone] Reason for Visit * Reason Comments Med Refill Encounter Details Date Type Department Care Team (Late st Contact Info) Description 08/18/2023 Refill [facility] [address] [place] [address] [phone] Kathy Villafana MD [address] [place] [address] [phone] Social History Tobacco Use Types Packs/Day Years [...] 05/11/2025 3:45 PM EDT Office Visit [facility] [address] [place] [address] [phone] Kathy Villafana MD [address] [place] [address] [phone] documented as of this encounter Visit Diagnoses Not on filedocumented in this encounter Additional Health Concerns Assessment Noted Time PHQ-9 Depression Total Score: 0 01/22/20 23 3:42 PM EST documented as of this encounter Care Teams Construction Framer Relationship Specialty Start Date End Date Kathy Villafana MD [address] [place] [address] PCP - General Family Medicine 08/05/21 [facility] 12/04/24 Corinne [facility] 01/15/25 documented as of this encounter
--- OUTSIDE RECORDS SUMMARY | 2025-02-27 20:07 | XMS_ITS | Encounter Summary ---
Author Organization [employer] Address [address] 7t [place] [address] Care Team Providers Care Round Up Ring Hand Name Role Phone Kathy Villafana MD Primary Care Provider [phone] Encounter Details Date Type Department Care Team (Late st Contact Info) Description 11/28/2023 Orders Only [facility]INE 230 [place], [place] [phone] Kathy Villafana MD [address] [place], [place] [phone] Social History Tobacco Use Types Packs/Day Years [...] Description 05/11/2025 3:45 PM EDT Office Visit [facility] [address] [place] [address] Kathy Villafana MD [address] [place] [address] documented as of this encounter Visit Diagnoses Not on filedocumented in this encounter Additional Health Concerns Assessment Noted Time PHQ-9 Depression Total Score: 0 01/22/20 23 3:42 PM EST documented as of this encounter Care Teams Round Up Ring Hand Relationship Specialty Start Date End Date Kathy Villafana MD [address] [place] [address] PCP - General Family Medicine 08/05/21 [facility] 12/04/24 Corinne BROOKSA 01/15/25 documented as of this encounter
--- OUTSIDE RECORDS SUMMARY | 2025-02-27 20:07 | XMS_ITS | Clinical Summary ---
Author Organization [facility] Address [address] [address] Care Team Providers Care Underground Mine Superintendent Name Role Phone Kathy Villafana MD Primary Care Provider [phone] Medications pantoprazole (PROTONIX) 40 MG EC tablet [...] patient's age to complete this topic Insurance [facility] ([id number]) KENJI AUGUSTINE [id number] [facility] ([id number]) KENJI AUGUSTINE [id number] Care Teams Underground Mine Superintendent Relationship Specialty Start Date End Date Kathy Villafana MD PCP - General Copy Camera Operator 10/13/21
--- OUTSIDE RECORDS SUMMARY | 2025-02-27 20:07 | XMS_ITS | Encounter Summary ---
Author Organization [facility] Address [address] [place] [address] 7t [place] [address] Care Team Providers Care Wad Printing Machine Operator Name Role Phone Kathy Villafana MD Primary Care Provider [phone] Reason for Visit * Reason Comments Med Refill Encounter Details Date Type Department Care Team (Late Contact Info) Description 05/24/2023 Refill [facility]INE [address] [place] [address] [phone] Kathy Villafana MD [address] [place] [address] [phone] Social History Tobacco Use Types Packs/Day Years [...] Upcoming Encounters Date Type Department Care Team ([facility] Contact Info) Description 05/11/2025 3:45 PM EDT Office Visit [facility] 230 [place] [address] Kathy Villafana MD [address] [place] [address] documented as of this encounter Visit Diagnoses Not on filedocumented in this encounter Additional Health Concerns Assessment Noted Time PHQ-9 Depression Total Score: 0 01/22/20 23 3:42 PM EST documented as of this encounter Care Teams Wad Printing Machine Operator Relationship Specialty Start Date End Date Kathy Villafana MD [address] [place] [address] PCP - General Family Medicine 08/05/21 [facility] 12/04/24 Corinne [facility] 01/15/25 documented as of this encounter
--- OUTSIDE RECORDS SUMMARY | 2025-02-27 20:07 | XMS_ITS | Encounter Summary ---
Author Organization [facility] Address [address] [place] [address] Phone Care Team Providers Care Integration Analyst Name Role Phone Kathy Villafana MD Primary Care Provider [phone] Reason for Visit * Reason Comments Med Refill Encounter Details Date Type Department Care Team (Late st Contact Info) Description 07/14/2022 Refill [facility] [address] [place] [phone] Salty Kim, DO [address] [place] [phone] Social History Tobacco Use Types Packs/Day Years [...] on filedocumented in this encounter Care Teams Integration Analyst Relationship Specialty Start Date End Date Kathy Villafana MD PCP - General Agricultural Education Professor 10/13/21 documented as of this encounter
--- OUTSIDE RECORDS SUMMARY | 2025-02-27 20:07 | XMS_ITS | Encounter Summary ---
Author Organization [employer] Address [address] 7t [place] [address] Care Team Providers Care Demolition Expert Name Role Phone Kathy Villafana MD Primary Care Provider Reason for Visit * Reason Onset Date Comments Hospital Follow-up 01/20/2025 Encounter Details Date Type Department Care Team ([facility] st Contact Info) Description 01/20/2025 Telephone [facility] MEDICINE 230 [place], [place] [phone] Kathy Villafana MD 230 [place], [place] [phone] Hospital Follow-up Social History Tobacco Use Types [...] * Telephone Encounter - Sapphire Zapien - 01/20/2025 4:22 PM EST Tc from pt requesting a HDF appt. Hospital: [facility] Date of admission: 01/08/2025 Discharge date: 01/13/2025 Diagnosed:hypoxic respiratory failure *Send message to [facility] Clinical Care Coordinators documented in this encounter Plan of Treatment Upcoming Encounters Date Type Department Care Team (Late st Contact Info) Description 05/11/2025 3:45 PM EDT Office Visit [facility] MEDICINE [address] [place] [phone] Kathy Villafana MD [address] [place] [phone] documented as of this encounter Visit Diagnoses Not on filedocumented in this encounter Additional Health Concerns Assessment Noted Time PHQ-9 Depression Total Score: 0 02/20/20 24 2:34 PM EDT documented as of this encounter Care Teams Demolition Expert Relationship Specialty Start Date End Date Kathy Villafana MD [address] [place] [address] PCP - General Family Medicine 08/05/21 [facility] 12/04/24 Corinne A 01/15/25 documented as of this encounter
--- OUTSIDE RECORDS SUMMARY | 2025-02-27 20:07 | XMS_ITS | Encounter Summary ---
Author Organization [employer] Address [address] [facility] [address] [place] [address] Care Team Providers Care Staff Physical Therapist Name Role Phone Kathy Villafana MD Primary Care Provider [phone] Encounter Details Date Type Department Care Team (Late st Contact Info) Description 11/17/2022 Orders Only [facility] [address] [place] [address] Mary Ann Skaggs LPN Social History Tobacco [...] Description 05/11/2025 3:45 PM EDT Office Visit [facility] [address] [place] [address] Kathy Villafana MD [address] [place] [address] documented as of this encounter Visit Diagnoses Not on filedocumented in this encounter Care Teams Staff Physical Therapist Relationship Specialty Start Date End Date Kathy Villafana MD [address] [place] [address] PCP - General Family Medicine 08/05/21 [facility] documented as of this encounter
--- OUTSIDE RECORDS SUMMARY | 2025-02-27 20:07 | XMS_ITS | Encounter Summary ---
Author Organization [facility] Address [address] [place] [address] Care Team Providers Care Astrophysics Professor Name Role Phone Kathy Villafana MD Primary Care Provider [phone] Reason for Visit * Reason Comments Med Refill Encounter Details Date Type Department Care Team ([facility] st Contact Info) Description 11/18/2023 Refill [facility] [address] [place], [place] [phone] Kathy Villafana MD [address] [place], [place] [phone] Type 2 diabetes mellitus with hyperglycemia, with long-term current use of insulin ([facility]) Social History Tobacco Use Types Packs/Day [...] Description 05/11/2025 3:45 PM EDT Office Visit [facility] [address] [place] [phone] Kathy Villafana MD [address] [place] [phone] documented as of this encounter Visit Diagnoses Diagnosis Type 2 diabetes mellitus with hyperglycemia, with long-term current use of insulin ([facility]) documented in this encounter Additional Health Concerns Assessment Noted Time PHQ-9 Depression Total Score: 0 01/22/20 23 3:42 PM EST documented as of this encounter Care Teams Astrophysics Professor Relationship Specialty Start Date End Date Kathy Villafana MD [address] [place] [phone] PCP - General Family Medicine 08/05/21 [facility] 12/04/24 [facility] 01/15/25 documented as of this encounter
--- OUTSIDE RECORDS SUMMARY | 2025-02-27 20:07 | XMS_ITS | Encounter Summary ---
Author Organization [facility] Address [address] [facility] 7[address] [place] [address] Care Team Providers Care Dental Laboratory Worker Name Role Phone Kathy Villafana MD Primary Care Provider [phone] Reason for Visit * Reason Comments Med Refill Encounter Details Date Type Department Care Team (Late Contact Info) Description 12/01/2022 Refill [facility] [address] [place], [place] [phone] Kathy Villafana MD [address] [place] [phone] Type 2 diabetes mellitus with hyperglycemia, with long-term current use of insulin ([facility]) Social History Tobacco Use Types Packs/Day [...] Encounters Date Type Department Care Team (Late Contact Info) Description 05/11/2025 3:45 PM EDT Office Visit [facility] [address] [place] [phone] Kathy Villafana MD [address] [place], [place] [phone] documented as of this encounter Visit Diagnoses Diagnosis Type 2 diabetes mellitus with hyperglycemia, with long-term current use of insulin (CMS/HCC) documented in this encounter Care Teams Dental Laboratory Worker Relationship Specialty Start Date End Date Kathy Villafana MD [address] [place] [address] PCP - General Family Medicine 08/05/21 [facility] 12/04/24 [facility] 01/15/25 documented as of this encounter
--- OUTSIDE RECORDS SUMMARY | 2025-02-27 20:07 | XMS_ITS | Encounter Summary ---
Author Organization [employer] Address [address] [facility] [address] [place] [address] Care Team Providers Care Manager Media Relations Name Role Phone Kathy Villafana MD Primary Care Provider [phone] Reason for Visit * Reason Onset Date Comments difficulty with extraction 05/23/2023 Encounter Details Date Type Department Care Team (Late st Contact Info) Description 05/23/2023 Telephone [facility] [address] [place], [place] [phone] Tr Tay DDS [address] [place], [place] [phone] difficulty with extraction Social History Tobacco Use [...] room on PAR end. Can front end web developer help with scheduling . * Telephone Encounter [...] to be seen today. Called front end web developer. Recommended to contact you for insight documented in this encounter Plan of Treatment Upcoming Encounters Date Type Department Care Team (Late st Contact Info) Description 05/11/2025 3:45 PM EDT Office Visit [facility] [address] [place] [address] Kathy Villafana MD [address] [place] [address] documented as of this encounter Visit Diagnoses Not on filedocumented in this encounter Additional Health Concerns Assessment Noted Time PHQ-9 Depression Total Score: 0 01/22/20 23 3:42 PM EST documented as of this encounter Care Teams Manager Media Relations Relationship Specialty Start Date End Date Kathy Villafana MD [address] [place] [address] PCP - General Family Medicine 08/05/21 [facility] 12/04/24 [facility] 01/15/25 documented as of this encounter
[2025-02-27 20:11] LABS: Alanine Aminotransferase 14 U/L (0-40); Albumin Level 3.8 g/dL (3.5-5.0); Alkaline Phosphatase 93 U/L (39-117); Anion Gap 21 (12-20); Aspartate Amino Transferase 33 U/L (5-37); Bilirubin Total 0.5 mg/dL (0.0-1.0); Blood Urea Nitrogen 45 mg/dL (9-16); Calcium 9.1 mg/dL (8.4-10.2); Carbon Dioxide 26 mmol/L (22-29); Chloride 95 mmol/L (96-108); Creatinine Clr Calc Pharmacy 28.7; Estimated Glomerular Filt Rate 25; Glucose Random 331 mg/dL (60-115); INTERNATIONAL NORM RATIO 1.5 (0.9-1.1); Magnesium 2.8 mg/dL (1.6-2.6); Potassium 4.5 mmol/L (3.3-5.1); Prothrombin Time 17.8 SEC (10.9-12.4); Sodium 137 mmol/L (135-145); Total Protein 7.8 g/dL (6.5-8.0)
[2025-02-27 20:14] LABS: Partial Thromboplastin Time 36.6 SEC (26.0-36.8)
[2025-02-27 20:16] LABS: B Type Natriuretic Peptide 222 pg/mL (<100)
[2025-02-27 20:17] LABS: Troponin-I High Sensitivity 10.3 ng/L (<3.5-35.0)
[2025-02-27] MEDS: iohexoL 350 MG/ML 100 ML INFUS..BTL IV (20:33)
[2025-02-27 21:18] LABS: Influenza A PCR NEGATIVE (Negative); Influenza B PCR NEGATIVE (Negative); Resp Syncy Virus RNA Qual PCR NEGATIVE (Negative); SARS COV2 PCR INHOUSE NEGATIVE (Negative)
[2025-02-27] MEDS: 0.9 % Sodium Chloride 1,000 ML 999 ML IV (21:29)
[2025-02-27 21:31] VITALS: BP 124/56; PULSE 68; RESP 12; TEMP 36.6; O2SAT 100
--- NOTE | 2025-02-27 22:35 | PHA.MEDREC ---
Pharmacy Consult ? Medication Reconciliation Pharmacy has completed the medication reconciliation.
--- NOTE | 2025-02-27 23:14 | PM.IMHP ---
History of Present Illness Date of Service: 02/27/25 <[facility] - Last Filed: 02/28/25 00:02> Attending physician on admission: Marilu Lugo <[facility] - Last Filed: 02/28/25 00:02> Chief Complaint: Weakness <[facility] - Last Filed: 02/28/25 00:02> Patient is a 79-year-old male Palauan-speaking only with past medical history of pneumonia, atrial fibrillation on anticoagulation, hypertension, gout, hyperlipidemia, CHF, allergic rhinitis, dementia, neuropathy, CAD, GERD, BPH, anemia and patient uses home O2 presents to the emergency department via EMS as family reported patient was exhibiting signs of weakness and possible tremor-like activity at least 2 times in the last 48 hours. Entry Level Automotive Technician was used to initiate HPI with patient but due to dementia patient was not able to elaborate on past medical history or current issues. Patient's son had already returned home. Patient is known to the hospitalist staff due to previous admissions. Overall concerns expressed by emergency provider were JAMES on chronic kidney disease, metabolic acidosis and CHF exacerbation with a noted elevated BNP. Patient did receive 1 L of IV fluid as patient may be dry. Periwick has been administered to monitor intake and output. There is no leukocytosis. Patient is afebrile. With web operations administrator patient denies any chest pain, shortness of breath at rest, abdominal pain, diarrhea or constipation. Patient denies any headaches, vision changes or loss of feeling in the lower extremities. There were no concerns for seizure, tremors or alteration in baseline neuro status during exam for HPI. CTA of the head was completed and was negative for any acute findings. Patient currently able to interact, communicate verbally and there have been no issues with dysphagia including taking medications and eating food and drinking fluids. Patient has no noted deficits on either the right or left side on exam. Patient presented with no current wound issues. It should be noted per nursing staff that patient was living in [place] and was under the care of his son and his son abandon patient and could no longer care for him. Patient's other son who lives in this local area went to [place] and brought his father back to this area and has continued to provide care for some time. Son is also Palauan-speaking but per nursing appeared very worried overall about patient's issues medically. It may be that son and his family are in need of home care support and further education on CHF, dementia and aging. Per nursing staff patient usually walks with a cane. Patient being admitted for JAMES and CHF exacerbation/ elevated BNP with noted weakness for PT eval. <JAGDEEP Mcfarland - Last Filed: 02/28/25 00:02> Review of Systems Review of Systems: Using web operations administrator patient denies any chest pain, shortness of breath at rest, abdominal pain, nausea, vomiting, lower leg pain or loss of feeling in the lower extremities. Patient denies headache, visual changes and difficulty swallowing. Limited review of systems due to dementia. <JAGDEEP Mcfarland - Last Filed: 02/28/25 00:02> Yes all other systems are reviewed and are negative <JAGDEEP Mcfarland - Last Filed: 02/28/25 00:02> [facility] Medical History: Medical History (Updated 02/27/25 @ 23:46 by JAGDEEP Mcfarland) CHF exacerbation Chronic atrial fibrillation Diabetes mellitus Alzheimer's dementia Acute hypoxic respiratory failure Pneumonia Pneumonia Acute respiratory failure Hypoxia CAD (coronary artery disease) Trash foot Diabetic foot infection Heart failure with preserved ejection fraction HLD (hyperlipidemia) Atrial fibrillation NSTEMI (non-ST elevated myocardial infarction) Kidney failure Diabetes HTN (hypertension) <JAGDEEP Mcfarland - Last Filed: 02/28/25 00:02> Cognitive capacity: Patient has dementia, alert to self <JAGDEEP Mcfarland - Last Filed: 02/28/25 00:02> Functional capacity: uses cane/walker <JAGDEEP Mcfarland - Last Filed: 02/28/25 00:02> Family History: Family History Father No problems noted. Mother No problems noted. <JAGDEEP Mcfarland - Last Filed: 02/28/25 00:02> Surgical History: Surgical History No pertinent past surgical history <JAGDEEP Mcfarland - Last Filed: 02/28/25 00:02> Social History: Social History Household Members: Family Household Members Other:: sons and daughter in law Housing: Apartment Do you presently have visiting nurse or other home services: Yes Unable to assess alcohol history related to: Unable to respond Alcohol intake: never Patient Tobacco Use Status: Never used Tobacco Smoked in Last 30 Days: No e-Cigarette/Vaping Use: Never Used Second Hand Smoke Exposure: No Use of substances other than those prescribed or required for medical reasons: No Advance Directives: Yes Advance Directives on File: Yes Advance Directives Date on File: 09/06/21 Do you have a plan to hurt others: No Plan service: No Current occupational status: retired <JAGDEEP Mcfarland - Last Filed: 02/28/25 00:02> Ebola Risk: Travel/Contact With Anyone From Affected Area/s: No <JAGDEEP Mcfarland - Last Filed: 02/28/25 00:02> Has Patient Experienced Ebola Symptoms: No <JAGDEEP Mcfarland - Last Filed: 02/28/25 00:02> Meds Allergies/Adverse reactions: Allergies Allergy/AdvReac Type Severity Reaction Status Date / Time No Known Allergies Allergy Verified 02/27/25 18:45 <JAGDEEP Mcfarland - Last Filed: 02/28/25 00:02> Active Medications: Current Medications Acetaminophen (Acetaminophen 325 Mg Tablet) 650 mg PO Q6H PRN PRN Reason: Pain, Mild 1-3,fever,headache Albuterol/Ipratropium (Albuterol/Iprat 2.5/0.5mg 3 Ml Ampul.Neb) 3 ml INHALE Q4H PRN PRN Reason: Shortness of Breath/Wheezing Calcium Carbonate (Calcium Carbonate 750 Mg Tab.Chew) 750 mg PO Q4H PRN PRN Reason: Heartburn Dextrose (Dextrose 50 % 25 Gm/50 Ml Syringe) 25 gm IVPUSH Q15M PRN; Protocol PRN Reason: per Hypoglycemia Standing Ord. Glucose (Glucose Gel 15 Gm Gel..Gram.) 15 gm PO Q15M PRN; Protocol PRN Reason: per Hypoglycemia Standing Ord. Sodium Chloride (Ns) 1,000 mls @ 80 mls/hr IVCONT .[id number] [facility] Insulin Human Lispro (Insulin Lispro 100 Unit/Ml 3 Ml Vial) 0 unit SUBCUT QIDACHS [facility]; Protocol Magnesium Hydroxide (Milk Of Magnesia 30 Ml Oral.Susp) 30 ml PO DAILY PRN PRN Reason: Constipation Melatonin (Melatonin 3 Mg Tablet) 6 mg PO BEDTIME PRN PRN Reason: Insomnia Ondansetron HCl (Ondansetron Hcl 4 Mg/2 Ml Vial) 4 mg IVPUSH Q8H PRN PRN Reason: Nausea and Vomiting Polyethylene Glycol (Polyethylene Glycol 3350 17 Gm Powd.Pack) 17 gm PO DAILY PRN PRN Reason: Constipation Senna (Sennosides 8.6 Mg Tablet) 17.2 mg PO BEDTIME REYNALDO Sodium Chloride (0.9 % Sodium Chloride Flush 3 Ml Syringe) 3 ml IVFLUSH QSHIFT [facility] <VAHE Mcfarland - Last Filed: 02/28/25 00:02> Home medications: Home Medications ?Medication ?Instructions ?Recorded ?Confirmed ?Last Taken ?Type apixaban 5 mg tablet (Eliquis) 5 mg PO BID 09/05/21 02/27/25 02/27/25 History donepezil 10 mg tablet 1 tab PO BEDTIME 09/05/21 02/27/25 02/27/25 History vgtuyqfa-zfb-czabm acid 0.4 1 tab PO DAILY 09/05/21 02/27/25 02/27/25 History mg-lycopene 300 mcg-lutein 250 mcg tablet (CertaVite Senior) allopurinol 100 mg tablet 50 mg PO DAILY gout pain 10/07/21 02/27/25 02/27/25 History insulin syringe-needle U-100 1 mL #10 ea 12/22/21 05/08/22 02/27/25 History 31 gauge x 04/10 memantine 10 mg tablet 10 mg PO BID 05/08/22 02/27/25 02/27/25 History metoprolol tartrate 100 mg tablet 100 mg PO BID 05/08/22 02/27/25 02/27/25 History cetirizine 10 mg tablet 10 mg PO DAILY congestion 08/17/23 02/27/2502/27/25 History gabapentin 800 mg tablet 800 mg PO BID 05/17/24 02/27/25 02/27/25 History omeprazole 20 mg capsule,delayed 20 mg PO BID@0630,1630 05/17/24 02/27/25 02/27/25 History release sucralfate 1 gram tablet 1 g PO TIDAC 05/17/24 02/27/25 02/27/25 History magnesium oxide 250 mg PO DAILY 11/25/24 02/27/25 02/27/25 History insulin aspar prt-insulin aspart 76 unit subcut BIDWM 12/24/24 02/27/25 02/27/25 History 100 unit/mL (70-30) subcutaneous soln (Novolog Mix 70-30 U-100 Insuln) diphenhydramine HCl 25 mg tablet 12.5 mg PO BEDTIME PRN Allergy 01/08/25 02/27/25 02/27/25 History (Nell-Dryl) Symptoms dapagliflozin propanediol 5 mg 5 mg PO DAILY 02/27/25 02/27/25 02/27/25 History tablet (Farxiga) <[facility] - Last Filed: 02/28/25 00:02> Physical Exam Vital Signs and Narrative: Vital Signs: Last Vital Signs Temp 97.9 F 02/27/25 21:31 Pulse 68 02/27/25 21:31 Resp 12 02/27/25 21:31 BP 124/56 L 02/27/25 21:31 Pulse Ox 100 02/27/25 21:31 O2 Del Method Room Air 02/27/25 21:31 Oxygen Flow Rate 2 02/27/25 18:39 BMI result Body Mass Index 31.9 <[facility] - Last Filed: 02/28/25 00:02> Alert and orientated to self only, unable to provide history. Neuro: CN II-X11 intact, memory poor, recall poor EYES: PERRLA, EOM intact ENT: hearing intact, no issues with swallowing, uvula midline, lips moist, nares patent no epistaxis Cardiac: S1 S2 irregular, no murmur, no JVD, no edema in Lower ext Pulmonary: lungs diminshed B Abdominal: BS active in all 4 quadrants, no guarding, tenderness, rebounding MSK: strength 4/5 upper and lower extremities : no CVA tenderness no bladder distension Extremities: no edema in lower extremities, PT and DP pulses palpable +2 Psych: mood stable, judgement and insight poor Skin: no open wounds seen on exam <[facility] - Last Filed: 02/28/25 00:02> Results Labs CBC and Chem 7: 02/27/25 19:51 02/27/25 19:51 <[facility] - Last Filed: 02/28/25 00:02> Labs: Laboratory Results - last 24 hr 02/27/25 02/27/25 02/27/25 19:51 19:51 19:52 MCV 88.0 MCH 28.5 MCHC 32.4 RDW 15.4 Plt Count 204 MPV 11.5 Immature Gran % (Auto) 0.3 Neut % (Auto) 70.4 Lymph % (Auto) 16.2 L [place] % (Auto) 10.2 Eos % (Auto) 2.3 Baso % (Auto) 0.6 Lymph # (Auto) 1.4 [place] # (Auto) 0.9 Eos # (Auto) 0.2 Baso # (Auto) 0.1 Abs Immat Gran (auto) 0.03 Absolute Neuts (auto) 6.1 Absolute Nucleated RBC 0.000 Nucleated RBC % (auto) 0.0 PT 17.8 H INR 1.5 H APTT Cancelled 36.6 Anion Gap 21 H Estim Creat Clear Calc 28.7 Estimated GFR 25 Random Glucose 331 H Calcium 9.1 Magnesium 2.8 H Total Bilirubin 0.5 AST 33 ALT 14 Alkaline Phosphatase 93 B-Natriuretic Peptide 222 H Total Protein 7.8 Albumin 3.8 Influenza Type A (PCR) Influenza Type B (PCR) RSV RNA Qual (PCR) SARS-CoV-2 RNA (RT-PCR) 02/27/25 20:36 MCV MCH MCHC RDW Plt Count MPV Immature Gran % (Auto) Neut % (Auto) Lymph % (Auto) [place] % (Auto) Eos % (Auto) Baso % (Auto) Lymph # (Auto) [place] # (Auto) Eos # (Auto) Baso # (Auto) Abs Immat Gran (auto) Absolute Neuts (auto) Absolute Nucleated RBC Nucleated RBC % (auto) PT INR APTT Anion Gap Estim Creat Clear Calc Estimated GFR Random Glucose Calcium Magnesium Total Bilirubin AST ALT Alkaline Phosphatase B-Natriuretic Peptide Total Protein Albumin Influenza Type A (PCR) NEGATIVE Influenza Type B (PCR) NEGATIVE RSV RNA Qual (PCR) NEGATIVE SARS-CoV-2 RNA (RT-PCR) NEGATIVE <[facility] Last Filed: 02/28/25 00:02> Imaging Radiologist's Impressions: Great vessel origins are patent at the level of the aortic arch. Bilateral subclavian arteries are patent without stenosis. Bilateral vertebral artery origins are patent without stenosis. No evidence for vertebral dissection. Right vertebral dominant. Bilateral common carotid arteries are unremarkable. Bilateral carotid bulbs demonstrate no significant plaque. No significant bilateral internal carotid artery stenosis. No significant soft tissue mass or adenopathy. No significant focal bony abnormalities. Minimal left pleural effusion partially visualized. Impression: No significant vascular abnormalities <[facility] Last Filed: 02/28/25 00:02> Assessment and Plan (1) JAMES (acute kidney injury): Status: Acute <[facility] Last Filed: 02/28/25 00:02> (2) CHF exacerbation: Qualifiers: Heart failure type: systolic Qualified Code(s): I50.23 - Acute on chronic systolic (congestive) heart failure <[facility] Last Filed: 02/28/25 00:02> Status: Acute <[facility] Last Filed: 02/28/25 00:02> (3) Metabolic acidosis: Status: Acute <[facility] Last Filed: 02/28/25 00:02> (4) CKD stage 3b, GFR 30-44 ml/min: Status: Acute <[facility] Last Filed: 02/28/25 00:02> (5) Chronic atrial fibrillation: Status: Acute <[facility] Last Filed: 02/28/25 00:02> (6) Diabetes mellitus: Qualifiers: Chronic kidney disease stage: stage 3 (moderate) Chronic kidney disease stage 3 subtype: stage 3b (GFR 30-44) Diabetes mellitus complication detail: with chronic kidney disease Diabetes mellitus complication status: with kidney complications Diabetes mellitus security auditor insulin use: with security auditor use Diabetes mellitus type: type 2 Qualified Code(s): E11.22 - Type 2 diabetes mellitus with diabetic chronic kidney disease; N18.32 - Chronic kidney disease, stage 3b; Z79.4 - assisted (current) use of insulin <[facility] - Last Filed: 02/28/25 00:02> Status: Acute <[facility] - Last Filed: 02/28/25 00:02> (7) Alzheimer's dementia: Qualifiers: Alzheimer's disease onset: unspecified onset Dementia behavioral or psychological symptom: without behavioral, psychotic, or mood disturbance or anxiety Dementia severity: unspecified severity Qualified Code(s): G30.9 - Alzheimer's disease, unspecified; F02.80 - Dementia in other diseases classified elsewhere, unspecified severity, without behavioral disturbance, psychotic disturbance, mood disturbance, and anxiety <[facility] - Last Filed: 02/28/25 00:02> Status: Acute <[facility] - Last Filed: 02/28/25 00:02> (8) Weakness: Status: Acute <[facility] - Last Filed: 02/28/25 00:02> (9) Hypermagnesemia: Status: Acute <[facility] - Last Filed: 02/28/25 00:02> Patient is a 79-year-old male Palauan-speaking only with past medical history of pneumonia, atrial fibrillation on anticoagulation, hypertension, gout, hyperlipidemia, CHF, allergic rhinitis, dementia, neuropathy, CAD, GERD, BPH, anemia and patient uses home O2 is being admitted for JAMES, CHF exacerbation and increased weakness requiring physical therapy evaluation. 1. JAMES Patient receive 1 L of IV fluid in the ED. Noting the elevated BNP using caution with additional fluids Nephrology consulted BMP in the morning Strict I's and O's, daily weights, low-sodium diet Avoid nephrotoxic medications including NSAIDs Avoid hypotension Holding gabapentin and allopurinol 2. CHF exacerbation with an elevated BNP of 222 Plan is to gently reintroduce Lasix in the a.m. on 02/28/2025 based on patient's clinical presentation and labs, patient normally on oral Bumex 2 mg twice a day One-view chest x-ray pending All viral studies were negative Daily weights, strict I's and O's, low-sodium diet We will continue metoprolol but it is noted that patient is not currently on an LEI inhibitor prior to this admission. Patient's family may benefit from CHF education. This has been ordered. 3. Metabolic acidosis Likely secondary to JAMES Patient receive gentle hydration Recheck BMP in the morning 4. Chronic kidney disease stage IIIB As above for JAMES, patient will be consulted with Nephrology 5. Chronic atrial fibrillation Continue metoprolol and Eliquis Current rhythm AFib, rate controlled anywhere from 56-61 EKG negative for ischemic changes 6. Diabetes mellitus insulin-dependent Sliding scale insulin ordered Patient normally on NovoLog mix 70 30 and receive 76 units subcutaneously b.i.d. with meals. This insulin is not available on our formulary after review. Medication reconciliation completed, we will ask for appropriate alternative Diabetic diet ordered 7. Alzheimer's dementia Chronic, patient is normally on donepezil and memantine. These medications will be continued. Fall risk measures in place 8. Weakness Family reports increased weakness overall. Patient does use a cane at home. No report of any recent falls. PT eval pending 9. Hypermagnesemia Patient does take magnesium at home. Magnesium elevated and we will hold oral magnesium for now. Anticoagulation ordered for DVT prophylaxis. PPI ordered. Med req completed Patient requires inpatient admission for mild hydration, diuresis as needed, Nephrology consult and physical therapy consult for increased weakness. <Nelly Mendoza, CUSTOMER SALES REPRESENTATIVE-BC - Last Filed: 02/28/25 00:02> Patient is a 79-year-old male Palauan-speaking only with past medical history of pneumonia, atrial fibrillation on anticoagulation, hypertension, gout, hyperlipidemia, CHF, allergic rhinitis, dementia, neuropathy, CAD, GERD, BPH, anemia and patient uses home O2 is being admitted for JAMES, CHF exacerbation and increased weakness requiring physical therapy evaluation. 1. JAMES Patient receive 1 L of IV fluid in the ED. Noting the elevated BNP using caution with additional fluids BMP in the morning Strict I's and O's, daily weights, low-sodium diet Avoid nephrotoxic medications including NSAIDs Avoid hypotension Holding gabapentin and allopurinol nephrology consult if not improving 2. CHF exacerbation with an elevated BNP of 222 Plan is to gently reintroduce Lasix in the a.m. on 02/28/2025 based on patient's clinical presentation and labs, patient normally on oral Bumex 2 mg twice a day One-view chest x-ray pending All viral studies were negative Daily weights, strict I's and O's, low-sodium diet We will continue metoprolol but it is noted that patient is not currently on an LEI inhibitor prior to this admission. Patient's family may benefit from CHF education. This has been ordered. 3. Metabolic acidosis Likely secondary to JAMES Patient receive gentle hydration Recheck BMP in the morning 4. Chronic kidney disease stage IIIB As above for JAMES, 5. Chronic atrial fibrillation Continue metoprolol and Eliquis Current rhythm AFib, rate controlled anywhere from 56-61 EKG negative for ischemic changes 6. Diabetes mellitus insulin-dependent Sliding scale insulin ordered Patient normally on NovoLog mix 70 30 and receive 76 units subcutaneously b.i.d. with meals. This insulin is not available on our formulary after review. Medication reconciliation completed, we will ask for appropriate alternative Diabetic diet ordered 7. Alzheimer's dementia Chronic, patient is normally on donepezil and memantine. These medications will be continued. Fall risk measures in place 8. Weakness Family reports increased weakness overall. Patient does use a cane at home. No report of any recent falls. PT eval pending 9. Hypermagnesemia Patient does take magnesium at home. Magnesium elevated and we will hold oral magnesium for now. Anticoagulation ordered for DVT prophylaxis. PPI ordered. Med req completed Patient requires inpatient admission for mild hydration, diuresis as needed, Nephrology consult and physical therapy consult for increased weakness. <Marilu Lugo MD - Last Filed: 02/28/25 00:10> Quality Stroke Does the patient have a stroke diagnosis?: No <JAGDEEP Mcfarland - Last Filed: 02/28/25 00:02> VTE Prior VTE?: No <JAGDEEP Mcfarland - Last Filed: 02/28/25 00:02> VTE Risk Level:: Medical - moderate - high <JAGDEEP Mcfarland - Last Filed: 02/28/25 00:02> VTE Device Contraindication: Treatment Not Tolerated <JAGDEEP Mcfarland - Last Filed: 02/28/25 00:02> VTE Drug Contraindication: N/A - Med Ordered <JAGDEEP Mcfarland - Last Filed: 02/28/25 00:02>
[2025-02-27] MEDS: 0.9 % Sodium Chloride 1,000 ML 80 ML IVCONT (23:23)
[2025-02-27 23:52] LABS: Uric Acid 9.7 mg/dL (3.4-7.0)
[2025-02-28] VITALS (9 sets, daily range): BP systolic 118–171; BP diastolic 56–80; PULSE 53–77; RESP 12–18; TEMP 36.2–36.6; O2SAT 95–100; BMI 34.8; BMI 36.7
--- NOTE | 2025-02-28 | ECG_ITS ---
Test Reason : BRADYCARDIA Blood Pressure : */* mmHG Vent. Rate : 47 BPM Atrial Rate : * BPM P-R Int : * ms QRS Dur : 82 ms QT Int : 458 ms P-R-T Axes : * 10 32 degrees QTcB Int : 405 ms Atrial fibrillation with slow ventricular response Low voltage QRS Nonspecific ST and T wave abnormality Abnormal ECG When compared with ECG of 27-Feb-2025 19:18, No significant change was found Referred By: Sarath Bennett Electronically Signed By: EMERSON LIANG
[2025-02-28] MEDS: cefTRIAXone sodium 1 GM VIAL IVPUSH (03:26)
[2025-02-28] MEDS: Doxycycline Hyclate 100 MG in 0.9 % Sodium Chloride 250 ML 166.67 MG IV (03:26)
[2025-02-28 03:31] LABS: Basophils Absolute Auto 0.1 X10*3/uL (0.0-0.2); Basophils Percent Auto 0.8 % (0-2); Eosinophils Absolute Auto 0.2 X10*3/uL (0.0-0.4); Eosinophils Percent Auto 3.9 % (0-4); Hematocrit 29.2 % (42.0-52.0); Hemoglobin 9.4 g/dl (14.0-18.0); Imm Gran Abs Auto 0.01 X10*3/uL (0.00-0.03); Imm Gran Pct Auto 0.2 % (0.0-0.4); Lymphocytes Absolute Auto 1.4 X10*3/uL (1.2-4.9); Lymphocytes Percent Auto 23.3 % (20-40); MANUAL DIFF FLAG NO; Mean Corpuscular HGB Conc 32.2 g/dl (31.0-36.0); Mean Corpuscular Hemoglobin 28.1 pg (27.0-33.0); Mean Corpuscular Volume 87.4 fL (80.0-98.0); Mean Platelet Volume 11.4 fL (9.4-12.4); Monocytes Absolute Auto 0.6 X10*3/uL (0.1-1.2); Monocytes Percent Auto 9.3 % (2-11); Neutrophils Absolute Auto 3.8 x10*3/uL (2.0-8.3); Neutrophils Percent Auto 62.5 % (45-73); Platelet Count 207 X10*3/uL (160-400); Red Blood Count 3.34 X10*6/uL (4.60-5.80); Red Cell Distribution Width 15.2 % (11.0-16.0); White Blood Count 6.1 X10*3/uL (4.8-10.8)
[2025-02-28 04:00] LABS: Alanine Aminotransferase 10 U/L (0-40); Albumin Level 3.4 g/dL (3.5-5.0); Alkaline Phosphatase 87 U/L (39-117); Anion Gap 16 (12-20); Aspartate Amino Transferase 27 U/L (5-37); Bilirubin Total 0.4 mg/dL (0.0-1.0); Blood Urea Nitrogen 44 mg/dL (9-16); Calcium 8.5 mg/dL (8.4-10.2); Carbon Dioxide 28 mmol/L (22-29); Chloride 97 mmol/L (96-108); Creatinine Clr Calc Pharmacy 30.3; Estimated Glomerular Filt Rate 27; Glucose Random 319 mg/dL (60-115); Potassium 4.3 mmol/L (3.3-5.1); Sodium 137 mmol/L (135-145); Total Protein 6.9 g/dL (6.5-8.0)
--- NOTE | 2025-02-28 04:37 | PC.NURSE ---
late entry: noted covering hospitalist ordered abx and blood cultures were not drawn. Checked with hospitalist and orders to bc were added. lab came and martita the the blood cultures. abx administered after draw.
[2025-02-28 06:50] LABS: Estimated Average Glucose 200 mg/dL; Hemoglobin A1C 204.8992 umol/L; Hemoglobin A1c % 8.6 % (<6.0); Total Hemoglobin (HGBA1C) 2913.4175 umol/L
[2025-02-28 07:58] LABS: Glucose, Whole Blood 269 mg/dL (60-115)
[2025-02-28] MEDS: Metoprolol Tartrate 100 MG TABLET PO ×2 (08:15→21:14)
[2025-02-28] MEDS: Empagliflozin 10 MG TABLET PO (08:17)
[2025-02-28] MEDS: Sucralfate 1 GM TABLET PO ×2 (08:17→13:09)
[2025-02-28] MEDS: amLODIPine Besylate 2.5 MG TABLET PO (08:17)
[2025-02-28] MEDS: Isosorbide Mononitrate 60 MG TAB.ER.24H PO (08:17)
[2025-02-28] MEDS: Apixaban 5 MG TABLET PO ×2 (08:17→21:14)
[2025-02-28] MEDS: Aspirin 81 MG TAB.CHEW PO (08:17)
[2025-02-28] MEDS: Omeprazole 20 MG CAPSULE.DR PO (08:17)
[2025-02-28] MEDS: Insulin Lispro 100 UNIT/ML 3 ML VIAL SUBCUT ×3 (08:18→21:10)
[2025-02-28] MEDS: Memantine HCl 10 MG TABLET PO ×2 (08:22→21:14)
--- NOTE | 2025-02-28 10:48 | PC.NURSE ---
Patients HR between low 40`s-65bpm with multiple 10 second pauses on monitor. Patient asymptomatic , provider notified
[2025-02-28 11:11] LABS: Appearance Urine Clear; Color Urine Yellow; Glucose Urine UA >=1000 mg/dL (Negative); Leukocyte Esterase Urine Moderate (2+) (Negative); Nitrite Urine Negative (Negative); Specific Gravity - Urine >= 1.030 (1.005-1.025); UMIC TRIGGER UACC YES; Urine Blood Negative (Negative); Urine Ketones Negative (Negative); Urine Protein Negative (Neg-Trace)
[2025-02-28 11:16] LABS: Bacteria Urine None Seen (None Seen); Hyaline Casts Urine 0-2 /LPF (0-2); RBC Urine 0-2 /HPF (0-2); Squamous Epithelial Cell Urine 0-2 /HPF (0-2); UACC Culture Trigger YES; WBC Urine >50 /HPF (0-5)
--- NOTE | 2025-02-28 11:30 | MHC.CM.PN ---
IMM /. Pt with dx dementia. Pt lives at home with pts son/HCP [place], pt has [facility] and [facility] nurse visits. BLS transport. PCP: Dr. Kathy Villafana
[2025-02-28] MEDS: 0.9 % Sodium Chloride 1,000 ML 80 ML IVCONT (11:46)
[2025-02-28 11:53] LABS: Glucose, Whole Blood 264 mg/dL (60-115)
--- NOTE | 2025-02-28 12:43 | HO.PM.IMPN ---
Subjective Subjective Date of Service: 02/28/25 Interval History: seen and evaluated denies any fever or pain tolerating PO Cr remains elevated on O2 supplement Review of Systems Review of Systems: Yes all other systems are reviewed and are negative Physical Exam Vital Signs: Vital Signs: Last Vital Signs Temp 97.6 F 02/28/25 10:55 Pulse 53 02/28/25 10:55 Resp 18 02/28/25 10:55 BP 118/56 L 02/28/25 10:55 Pulse Ox 100 02/28/25 10:55 O2 Del Method Nasal Cannula 02/28/25 10:55 O2 Flow Rate 2 02/28/25 10:55 Oxygen Flow Rate 2 02/27/25 18:39 BMI result Body Mass Index 31.9 Const: Other: Constitutional : Awake, interactive, not in distress Neck : Normal inspection, Supple Cardiovascular : RRR, no JVP, trace lower extremity edema Respiratory : good bilateral air entry, basal fine crackles, wheezes or rhonchi, O2 supplement Gastrointestinal: soft, lax, Normal bowel sounds, Non tender Skin : Warm, Dry Neurological : Alert & oriented to self and place , No focal deficit Objective Data Active Medications Acetaminophen (Acetaminophen 325 Mg Tablet) 650 mg PO Q6H PRN PRN Reason: Pain, Mild 1-3,fever,headache Albuterol/Ipratropium (Albuterol/Iprat 2.5/0.5mg 3 Ml Ampul.Neb) 3 ml INHALE Q4H PRN PRN Reason: Shortness of Breath/Wheezing Amlodipine Besylate (Amlodipine Besylate 2.5 Mg Tablet) 2.5 mg PO DAILY [facility]; Protocol Last Admin: 02/28/25 08:17 Dose: 2.5 mg Documented By: KAMILAH Apixaban (Apixaban 5 Mg Tablet) 5 mg PO BID [facility] Last Admin: 02/28/25 08:17 Dose: 5 mg Documented By: KAMILAH Aspirin (Aspirin 81 Mg Tab.Chew) 81 mg PO DAILY [facility] Last Admin: 02/28/25 08:17 Dose: 81 mg Documented By: KAMILAH Atorvastatin Calcium (Atorvastatin Calcium 40 Mg Tablet) 40 mg PO BEDTIME [facility] Calcium Carbonate (Calcium Carbonate 750 Mg Tab.Chew) 750 mg PO Q4H PRN PRN Reason: Heartburn Ceftriaxone Sodium (Ceftriaxone Sodium 1 Gm Vial) 1 gm IVPUSH Q24H [facility] Stop: 03/07/25 01:59 Last Admin: 02/28/25 03:26 Dose: 1 gm Documented By: AMY Dextrose (Dextrose 50 % 25 Gm/50 Ml Syringe) 25 gm IVPUSH Q15M PRN; Protocol PRN Reason: per Hypoglycemia Standing Ord. Donepezil HCl (Donepezil Hcl 10 Mg Tablet) 10 mg PO BEDTIME [facility] Empagliflozin (Empagliflozin 10 Mg Tablet) 10 mg PO DAILY [facility] Last Admin: 02/28/25 08:17 Dose: 10 mg Documented By: KAMILAH Glucose (Glucose Gel 15 Gm Gel..Gram.) 15 gm PO Q15M PRN; Protocol PRN Reason: per Hypoglycemia Standing Ord. Sodium Chloride (Ns) 1,000 mls @ 80 mls/hr IVCONT .[id number] [facility] Last Admin: 02/28/25 11:46 Dose: 80 mls/hr Documented By: KAMILAH Doxycycline Hyclate 100 mg/ (Sodium Chloride) 250 mls @ 166.67 mls/hr IV Q12H [facility] Stop: 03/07/25 01:59 Last Infusion: 02/28/25 05:44 Dose: Infused Documented By: AMY Insulin Glargine (Insulin Glargine,Hum.Rec.Anlog 100 Unit/Ml 10 Ml Vial) 50 unit SUBCUT BEDTIME [facility] Insulin Human Lispro (Insulin Lispro 100 Unit/Ml 3 Ml Vial) 0 unit SUBCUT QIDACHS [facility]; Protocol Last Admin: 02/28/25 08:18 Dose: 6 unit Documented By: KAMILAH Insulin Human Lispro (Insulin Lispro 100 Unit/Ml 3 Ml Vial) 10 unit SUBCUT BIDAC@3507,9428 [facility] Isosorbide Mononitrate (Isosorbide Mononitrate 60 Mg Tab.Er.24h) 60 mg PO DAILY [facility]; Protocol Last Admin: 02/28/25 08:17 Dose: 60 mg Documented By: KAMILAH Magnesium Hydroxide (Milk Of Magnesia 30 Ml Oral.Susp) 30 ml PO DAILY PRN PRN Reason: Constipation Melatonin (Melatonin 3 Mg Tablet) 6 mg PO BEDTIME PRN PRN Reason: Insomnia Memantine (Memantine Hcl 10 Mg Tablet) 10 mg PO BID [facility] Last Admin: 02/28/25 08:22 Dose: 10 mg Documented By: KAMILAH Metoprolol Tartrate (Metoprolol Tartrate 100 Mg Tablet) 100 mg PO BID [facility]; Protocol Last Admin: 02/28/25 08:15 Dose: 100 mg Documented By: KAMILAH Omeprazole (Omeprazole 20 Mg Capsule.Dr) 20 mg PO DAILY@0630 [facility] Last Admin: 02/28/25 08:17 Dose: 20 mg Documented By: KAMILAH Ondansetron HCl (Ondansetron Hcl 4 Mg/2 Ml Vial) 4 mg IVPUSH Q8H PRN PRN Reason: Nausea and Vomiting Polyethylene Glycol (Polyethylene Glycol 3350 17 Gm Powd.Pack) 17 gm PO DAILY PRN PRN Reason: Constipation Senna (Sennosides 8.6 Mg Tablet) 17.2 mg PO BEDTIME [facility] Sodium Chloride (0.9 % Sodium Chloride Flush 3 Ml Syringe) 3 ml IVFLUSH QSHIFT [facility] Last Admin: 02/28/25 08:18 Dose: Not Given Documented By: KAMILAH Non-Admin Reason: IV Running Sucralfate (Sucralfate 1 Gm Tablet) 1 gm PO TIDAC [facility] Last Admin: 02/28/25 08:17 Dose: 1 gm Documented By: KAMILAH Tamsulosin HCl (Tamsulosin Hcl 0.4 Mg Capsule) 0.4 mg PO BEDTIME [facility] Labs 02/28/25 03:14 02/28/25 03:14 Labs: Laboratory Results - last 24 hr 02/27/25 02/27/25 02/27/25 19:51 19:51 19:52 MCV 88.0 MCH 28.5 MCHC 32.4 RDW 15.4 Plt Count 204 MPV 11.5 Immature Gran % (Auto) 0.3 Neut % (Auto) 70.4 Lymph % (Auto) 16.2 L [place] % (Auto) 10.2 Eos % (Auto) 2.3 Baso % (Auto) 0.6 Lymph # (Auto) 1.4 [place] # (Auto) 0.9 Eos # (Auto) 0.2 Baso # (Auto) 0.1 Abs Immat Gran (auto) 0.03 Absolute Neuts (auto) 6.1 Absolute Nucleated RBC 0.000 Nucleated RBC % (auto) 0.0 PT 17.8 H INR 1.5 H APTT Cancelled 36.6 Anion Gap 21 H Estim Creat Clear Calc 28.7 Estimated GFR 25 POC Glucose Random Glucose 331 H Estimat Average Glucose 200 Hemoglobin A1c % 8.6 H Uric Acid 9.7 H Calcium 9.1 Magnesium 2.8 H Total Bilirubin 0.5 AST 33 ALT 14 Alkaline Phosphatase 93 B-Natriuretic Peptide 222 H Total Protein 7.8 Albumin 3.8 TSH 2.20 Urine Color Urine Appearance Urine pH Ur Specific [place] Urine Protein Urine Glucose (UA) Urine Ketones Urine Blood Urine Nitrite Ur Leukocyte Esterase Urine RBC Urine WBC Ur Squamous Epith Cells Urine Bacteria Hyaline Casts Influenza Type A (PCR) Influenza Type B (PCR) RSV RNA Qual (PCR) SARS-CoV-2 RNA (RT-PCR) 02/27/25 02/28/25 02/28/25 20:36 03:14 07:54 MCV 87.4 MCH 28.1 MCHC 32.2 RDW 15.2 Plt Count 207 MPV 11.4 Immature Gran % (Auto) 0.2 Neut % (Auto) 62.5 Lymph % (Auto) 23.3 [place] % (Auto) 9.3 Eos % (Auto) 3.9 Baso % (Auto) 0.8 Lymph # (Auto) 1.4 [place] # (Auto) 0.6 Eos # (Auto) 0.2 Baso # (Auto) 0.1 Abs Immat Gran (auto) 0.01 Absolute Neuts (auto) 3.8 Absolute Nucleated RBC 0.000 Nucleated RBC % (auto) 0.0 PT INR APTT Anion Gap 16 Estim Creat Clear Calc 30.3 Estimated GFR 27 POC Glucose 269 H Random Glucose 319 H Estimat Average Glucose Hemoglobin A1c % Uric Acid Calcium 8.5 D Magnesium Total Bilirubin 0.4 AST 27 ALT 10 Alkaline Phosphatase 87 B-Natriuretic Peptide Total Protein 6.9 Albumin 3.4 L TSH Urine Color Urine Appearance Urine pH Ur Specific [place] Urine Protein Urine Glucose (UA) Urine Ketones Urine Blood Urine Nitrite Ur Leukocyte Esterase Urine RBC Urine WBC Ur Squamous Epith Cells Urine Bacteria Hyaline Casts Influenza Type A (PCR) NEGATIVE Influenza Type B (PCR) NEGATIVE RSV RNA Qual (PCR) NEGATIVE SARS-CoV-2 RNA (RT-PCR) NEGATIVE 02/28/25 02/28/25 10:59 11:48 MCV MCH MCHC RDW Plt Count MPV Immature Gran % (Auto) Neut % (Auto) Lymph % (Auto) [place] % (Auto) Eos % (Auto) Baso % (Auto) Lymph # (Auto) [place] # (Auto) Eos # (Auto) Baso # (Auto) Abs Immat Gran (auto) Absolute Neuts (auto) Absolute Nucleated RBC Nucleated RBC % (auto) PT INR APTT Anion Gap Estim Creat Clear Calc Estimated GFR POC Glucose 264 H Random Glucose Estimat Average Glucose Hemoglobin A1c % Uric Acid Calcium Magnesium Total Bilirubin AST ALT Alkaline Phosphatase B-Natriuretic Peptide Total Protein Albumin TSH Urine Color Yellow Urine Appearance Clear Urine pH 6.0 Ur Specific [place] >= 1.030 H Urine Protein Negative Urine Glucose (UA) >=1000 H Urine Ketones Negative Urine Blood Negative Urine Nitrite Negative Ur Leukocyte Esterase Moderate (2+) H Urine RBC 0-2 Urine WBC >50 H Ur Squamous Epith Cells 0-2 Urine Bacteria None Seen Hyaline Casts 0-2 Influenza Type A (PCR) Influenza Type B (PCR) RSV RNA Qual (PCR) SARS-CoV-2 RNA (RT-PCR) Assessment and Plan (1) CAP (community acquired pneumonia): Status: Acute (2) Acute kidney injury superimposed on chronic kidney disease: Status: Acute (3) Weakness: Status: Acute (4) Hypermagnesemia: Status: Acute (5) Metabolic acidosis: Status: Acute Plan Patient is a 79-year-old male Serbian-speaking only with past medical history of pneumonia, atrial fibrillation on anticoagulation, hypertension, gout, hyperlipidemia, CHF, allergic rhinitis, dementia, neuropathy, CAD, GERD, BPH, anemia and patient uses home O2 is being admitted for JAMES, CHF exacerbation and increased weakness requiring physical therapy evaluation. Acute kidney injury on CKD3 Cr at 2.3 Strict I's and O's, daily weights, low-sodium diet Avoid nephrotoxic medications including NSAIDs Holding gabapentin and allopurinol gentle Hydration nephrology consult if not improving Diastolic CHF elevated BNP of 222 hold Bumex 2 mg twice a day for JAMES continue metoprolol but it is noted that patient is not currently on an LEI inhibitor prior to this admission. low Na diet Pneumonia CXR showed LLL infiltrates All viral studies were negative Metabolic acidosis Likely secondary to JAMES Patient receive gentle hydration Recheck BMP Chronic atrial fibrillation Continue metoprolol and Eliquis Current rhythm AFib, rate controlled EKG negative for ischemic changes Diabetes mellitus insulin-dependent Sliding scale insulin ordered Lantus 50 units bedtime adjust insulin as needed Diabetic diet ordered Alzheimer's dementia Chronic, patient is normally on donepezil and memantine. Fall risk measures in place Weakness Patient does use a cane at home. No report of any recent falls. PT eval acute Hypermagnesemia Magnesium elevated and we will hold oral magnesium for now. Anticoagulation ordered for DVT prophylaxis. PPI ordered. Patient requires inpatient admission for IV hydration, IV antibiotics monitoring Kidney function , Nephrology consult and physical therapy consult for increased weakness. Quality Stroke Does the patient have a stroke diagnosis?: No VTE Prior VTE?: No VTE Risk Level:: Medical - moderate - high VTE Device Contraindication: Treatment Not Tolerated VTE Drug Contraindication: N/A - Med Ordered
[2025-02-28] MEDS: Doxycycline Hyclate 100 MG in 0.9 % Sodium Chloride 250 ML 166.7 MG IV (13:08)
[2025-02-28 16:58] LABS: Glucose, Whole Blood 331 mg/dL (60-115)
[2025-02-28 20:59] LABS: Glucose, Whole Blood 429 mg/dL (60-115)
[2025-02-28] MEDS: INSULIN ASPART PROTAMINE SUBCUT (21:10)
[2025-02-28] MEDS: INSULIN ASPART SUBCUT (21:10)
[2025-02-28] MEDS: Atorvastatin Calcium 40 MG TABLET PO (21:14)
[2025-02-28] MEDS: Tamsulosin HCL 0.4 MG CAPSULE PO (21:14)
[2025-02-28] MEDS: Donepezil HCl 10 MG TABLET PO (21:14)
[2025-02-28] MEDS: Sennosides 8.6 MG TABLET 17.2 MG PO (21:14)
[2025-02-28 22:51] LABS: Glucose, Whole Blood 339 mg/dL (60-115)
[2025-02-28] MEDS: Insulin Regular, Human 100 UNIT/ML 10 ML VIAL IVPUSH (23:59)
[2025-03-01] VITALS (7 sets, daily range): BP systolic 124–163; BP diastolic 57–84; PULSE 64–78; RESP 17–20; TEMP 36.7–37.2; O2SAT 92–97
[2025-03-01] MEDS: Doxycycline Hyclate 100 MG in 0.9 % Sodium Chloride 250 ML 166.67 MG IV ×2 (01:13→14:18)
[2025-03-01] MEDS: cefTRIAXone sodium 1 GM VIAL IVPUSH (01:14)
[2025-03-01] MEDS: 0.9 % Sodium Chloride Flush 3 ML SYRINGE IVFLUSH ×3 (01:14→20:39)
[2025-03-01 02:56] LABS: Glucose, Whole Blood 160 mg/dL (60-115)
[2025-03-01] MEDS: Omeprazole 20 MG CAPSULE.DR PO (06:42)
[2025-03-01 07:12] LABS: Glucose, Whole Blood 220 mg/dL (60-115)
[2025-03-01 07:19] LABS: Basophils Absolute Auto 0.1 X10*3/uL (0.0-0.2); Basophils Percent Auto 0.7 % (0-2); Eosinophils Absolute Auto 0.4 X10*3/uL (0.0-0.4); Eosinophils Percent Auto 5.3 % (0-4); Hematocrit 28.5 % (42.0-52.0); Hemoglobin 9.4 g/dl (14.0-18.0); Imm Gran Abs Auto 0.04 X10*3/uL (0.00-0.03); Imm Gran Pct Auto 0.5 % (0.0-0.4); Lymphocytes Absolute Auto 1.3 X10*3/uL (1.2-4.9); Lymphocytes Percent Auto 17.3 % (20-40); MANUAL DIFF FLAG SCAN; Mean Corpuscular Hemoglobin 28.7 pg (27.0-33.0); Mean Corpuscular Volume 87.2 fL (80.0-98.0); Monocytes Absolute Auto 0.6 X10*3/uL (0.1-1.2); Monocytes Percent Auto 7.9 % (2-11); Neutrophils Absolute Auto 5.2 x10*3/uL (2.0-8.3); Neutrophils Percent Auto 68.3 % (45-73); PLT CLUMP 1; Red Blood Count 3.27 X10*6/uL (4.60-5.80); Red Cell Distribution Width 15.2 % (11.0-16.0); SCAN SMEAR FLAG 1
[2025-03-01 07:26] LABS: Platelet Count 170 X10*3/uL (160-400); White Blood Count 7.7 X10*3/uL (4.8-10.8)
[2025-03-01 07:31] LABS: Anion Gap 16 (12-20); Blood Urea Nitrogen 32 mg/dL (9-16); Calcium 8.7 mg/dL (8.4-10.2); Carbon Dioxide 26 mmol/L (22-29); Chloride 102 mmol/L (96-108); Creatinine Clr Calc Pharmacy 41.5; Estimated Glomerular Filt Rate 36; Glucose Random 213 mg/dL (60-115); Sodium 140 mmol/L (135-145)
[2025-03-01 07:53] LABS: SLIDE REVIEW VERIFIED
[2025-03-01] MEDS: Memantine HCl 10 MG TABLET PO ×2 (08:53→20:39)
[2025-03-01] MEDS: Aspirin 81 MG TAB.CHEW PO (08:54)
[2025-03-01] MEDS: Apixaban 5 MG TABLET PO ×2 (08:54→20:39)
[2025-03-01] MEDS: amLODIPine Besylate 2.5 MG TABLET PO (08:54)
[2025-03-01] MEDS: Sucralfate 1 GM TABLET PO ×3 (08:54→17:07)
[2025-03-01] MEDS: INSULIN ASPART SUBCUT ×2 (08:54→20:38)
[2025-03-01] MEDS: INSULIN ASPART PROTAMINE SUBCUT ×2 (08:54→20:38)
[2025-03-01] MEDS: Empagliflozin 10 MG TABLET PO (08:54)
[2025-03-01] MEDS: Metoprolol Tartrate 100 MG TABLET PO ×2 (08:54→20:38)
[2025-03-01] MEDS: Isosorbide Mononitrate 60 MG TAB.ER.24H PO (08:54)
[2025-03-01 10:59] LABS: Glucose, Whole Blood 260 mg/dL (60-115)
[2025-03-01] MEDS: Insulin Lispro 100 UNIT/ML 3 ML VIAL SUBCUT ×3 (11:56→20:38)
--- NOTE | 2025-03-01 12:49 | HO.PM.IMPN ---
Subjective Subjective Date of Service: 03/01/25 Interval History: seen and evaluated denies any fever or pain tolerating PO Cr trending down weaning down O2 supplement Review of Systems Review of Systems: Yes all other systems are reviewed and are negative Physical Exam Vital Signs: Vital Signs: Last Vital Signs Temp 98.0 F 03/01/25 11:03 Pulse 64 03/01/25 11:03 Resp 20 03/01/25 11:03 BP 127/73 03/01/25 11:03 Pulse Ox 96 03/01/25 11:03 O2 Del Method Room Air 03/01/25 11:03 O2 Flow Rate 2 03/01/25 07:10 Oxygen Flow Rate 2 02/27/25 18:39 BMI result Body Mass Index 36.7 Const: Other: Constitutional : Awake, interactive, not in distress Neck : Normal inspection, Supple Cardiovascular : RRR, no JVP, trace lower extremity edema Respiratory : good bilateral air entry, basal fine crackles, wheezes or rhonchi, O2 supplement Gastrointestinal: soft, lax, Normal bowel sounds, Non tender Skin : Warm, Dry Neurological : Alert & oriented to self and place , No focal deficit Objective Data Active Medications Acetaminophen (Acetaminophen 325 Mg Tablet) 650 mg PO Q6H PRN PRN Reason: Pain, Mild 1-3,fever,headache Albuterol/Ipratropium (Albuterol/Iprat 2.5/0.5mg 3 Ml Ampul.Neb) 3 ml INHALE Q4H PRN PRN Reason: Shortness of Breath/Wheezing Amlodipine Besylate (Amlodipine Besylate 2.5 Mg Tablet) 2.5 mg PO DAILY [facility]; Protocol Last Admin: 03/01/25 08:54 Dose: 2.5 mg Documented By: LUCRETIA Apixaban (Apixaban 5 Mg Tablet) 5 mg PO BID [facility] Last Admin: 03/01/25 08:54 Dose: 5 mg Documented By: LUCRETIA Aspirin (Aspirin 81 Mg Tab.Chew) 81 mg PO DAILY [facility] Last Admin: 03/01/25 08:54 Dose: 81 mg Documented By: LUCRETAI Atorvastatin Calcium (Atorvastatin Calcium 40 Mg Tablet) 40 mg PO BEDTIME [facility] Last Admin: 02/28/25 21:14 Dose: 40 mg Documented By: MICHAELA Calcium Carbonate (Calcium Carbonate 750 Mg Tab.Chew) 750 mg PO Q4H PRN PRN Reason: Heartburn Ceftriaxone Sodium (Ceftriaxone Sodium 1 Gm Vial) 1 gm IVPUSH Q24H [facility] Stop: 03/07/25 01:59 Last Admin: 03/01/25 01:14 Dose: 1 gm Documented By: GRZEGORZ Dextrose (Dextrose 50 % 25 Gm/50 Ml Syringe) 25 gm IVPUSH Q15M PRN; Protocol PRN Reason: per Hypoglycemia Standing Ord. Donepezil HCl (Donepezil Hcl 10 Mg Tablet) 10 mg PO BEDTIME [facility] Last Admin: 02/28/25 21:14 Dose: 10 mg Documented By: MICHAELA Empagliflozin (Empagliflozin 10 Mg Tablet) 10 mg PO DAILY [facility] Last Admin: 03/01/25 08:54 Dose: 10 mg Documented By: LUCRETIA Glucose (Glucose Gel 15 Gm Gel..Gram.) 15 gm PO Q15M PRN; Protocol PRN Reason: per Hypoglycemia Standing Ord. Doxycycline Hyclate 100 mg/ (Sodium Chloride) 250 mls @ 166.67 mls/hr IV Q12H [facility] Stop: 03/07/25 01:59 Last Infusion: 03/01/25 02:46 Dose: Infused Documented By: GRZEGORZ Insulin Human Lispro (Insulin Lispro 100 Unit/Ml 3 Ml Vial) 0 unit SUBCUT QIDACHS [facility]; Protocol Last Admin: 03/01/25 11:56 Dose: 6 unit Documented By: LUCRETIA Isosorbide Mononitrate (Isosorbide Mononitrate 60 Mg Tab.Er.24h) 60 mg PO DAILY [facility]; Protocol Last Admin: 03/01/25 08:54 Dose: 60 mg Documented By: LUCRETIA Magnesium Hydroxide (Milk Of Magnesia 30 Ml Oral.Susp) 30 ml PO DAILY PRN PRN Reason: Constipation Melatonin (Melatonin 3 Mg Tablet) 6 mg PO BEDTIME PRN PRN Reason: Insomnia Memantine (Memantine Hcl 10 Mg Tablet) 10 mg PO BID [facility] Last Admin: 03/01/25 08:53 Dose: 10 mg Documented By: LUCRETIA Metoprolol Tartrate (Metoprolol Tartrate 100 Mg Tablet) 100 mg PO BID [facility]; Protocol Last Admin: 03/01/25 08:54 Dose: 100 mg Documented By: LUCRETIA Pt Own (Novolog Mix (70/30 50 Units)) 50 units SUBCUT BID [facility] Last Admin: 03/01/25 08:54 Dose: 50 units Documented By: LUCRETIA Omeprazole (Omeprazole 20 Mg Capsule.) 20 mg PO DAILY@0630 [facility] Last Admin: 03/01/25 06:42 Dose: 20 mg Documented By: GRZEGORZ Ondansetron HCl (Ondansetron Hcl 4 Mg/2 Ml Vial) 4 mg IVPUSH Q8H PRN PRN Reason: Nausea and Vomiting Polyethylene Glycol (Polyethylene Glycol 3350 17 Gm Powd.Pack) 17 gm PO DAILY PRN PRN Reason: Constipation Senna (Sennosides 8.6 Mg Tablet) 17.2 mg PO BEDTIME [facility] Last Admin: 02/28/25 21:14 Dose: 17.2 mg Documented By: MICHAELA Sodium Chloride (0.9 % Sodium Chloride Flush 3 Ml Syringe) 3 ml IVFLUSH QSHIFT [facility] Last Admin: 03/01/25 08:56 Dose: 3 ml Documented By: LUCRETIA Sucralfate (Sucralfate 1 Gm Tablet) 1 gm PO TIDAC [facility] Last Admin: 03/01/25 11:56 Dose: 1 gm Documented By: LUCRETIA Tamsulosin HCl (Tamsulosin Hcl 0.4 Mg Capsule) 0.4 mg PO BEDTIME [facility] Last Admin: 02/28/25 21:14 Dose: 0.4 mg Documented By: MICHAELA Labs 03/01/25 06:41 03/01/25 06:41 Labs: Laboratory Results - last 24 hr 02/28/25 02/28/25 02/28/25 16:50 20:48 22:47 MCV MCH MCHC RDW Plt Count MPV Immature Gran % (Auto) Neut % (Auto) Lymph % (Auto) [place] % (Auto) Eos % (Auto) Baso % (Auto) Lymph # (Auto) [place] # (Auto) Eos # (Auto) Baso # (Auto) Abs Immat Gran (auto) Absolute Neuts (auto) Absolute Nucleated RBC Nucleated RBC % (auto) Smear Tech's Comments Anion Gap Estim Creat Clear Calc Estimated GFR POC Glucose 331 H 429 H* 339 H Random Glucose Calcium 03/01/25 03/01/25 03/01/25 02:52 06:41 07:01 MCV 87.2 MCH 28.7 MCHC 33.0 RDW 15.2 Plt Count 170 MPV 12.0 Immature Gran % (Auto) 0.5 H Neut % (Auto) 68.3 Lymph % (Auto) 17.3 L [place] % (Auto) 7.9 Eos % (Auto) 5.3 H Baso % (Auto) 0.7 Lymph # (Auto) 1.3 [place] # (Auto) 0.6 Eos # (Auto) 0.4 Baso # (Auto) 0.1 Abs Immat Gran (auto) 0.04 H Absolute Neuts (auto) 5.2 Absolute Nucleated RBC 0.000 Nucleated RBC % (auto) 0.0 Smear Tech's Comments VERIFIED Anion Gap 16 Estim Creat Clear Calc 41.5 Estimated GFR 36 POC Glucose 160 H 220 H Random Glucose 213 H Calcium 8.7 03/01/25 10:56 MCV MCH MCHC RDW Plt Count MPV Immature Gran % (Auto) Neut % (Auto) Lymph % (Auto) [place] % (Auto) Eos % (Auto) Baso % (Auto) Lymph # (Auto) [place] # (Auto) Eos # (Auto) Baso # (Auto) Abs Immat Gran (auto) Absolute Neuts (auto) Absolute Nucleated RBC Nucleated RBC % (auto) Smear Tech's Comments Anion Gap Estim Creat Clear Calc Estimated GFR POC Glucose 260 H Random Glucose Calcium Microbiology Microbiology Results: Microbiology 02/28/25 Unknown Urine Culture - Final Urine clean catch - Clean Catch Midstream 02/28/25 03:14 Blood Culture - Preliminary Blood - Venous No growth after 24 hours. 02/28/25 03:14 Blood Culture - Preliminary Blood - Venous No growth after 24 hours. Assessment and Plan (1) CAP (community acquired pneumonia): Status: Acute (2) Acute kidney injury superimposed on chronic kidney disease: Status: Acute Plan Patient is a 79-year-old male Sami-speaking only with past medical history of pneumonia, atrial fibrillation on anticoagulation, hypertension, gout, hyperlipidemia, CHF, allergic rhinitis, dementia, neuropathy, CAD, GERD, BPH, anemia and patient uses home O2 is being admitted for JAMES, CHF exacerbation and increased weakness requiring physical therapy evaluation. Acute kidney injury on CKD3 Cr improved to 1.8 Strict I's and O's, daily weights, low-sodium diet Avoid nephrotoxic medications including NSAIDs Holding gabapentin and allopurinol dc Hydration nephrology consult if not improving Diastolic CHF elevated BNP of 222 restart Bumex 2 mg but consider decreasing it to daily only continue metoprolol but it is noted that patient is not currently on an LEI inhibitor prior to this admission. low Na diet Pneumonia CXR showed LLL infiltrates All viral studies were negative Continue antibiotics pending cultures Metabolic acidosis Likely secondary to JAMES, resolved Chronic atrial fibrillation Continue metoprolol and Eliquis Current rhythm AFib, rate controlled Diabetes mellitus insulin-dependent Sliding scale insulin ordered Lantus 50 units bedtime adjust insulin as needed Diabetic diet ordered Alzheimer's dementia Chronic, patient is normally on donepezil and memantine. Fall risk measures in place Weakness Patient does use a cane at home. No report of any recent falls. PT eval acute Hypermagnesemia Magnesium elevated and we will hold oral magnesium for now. Anticoagulation ordered for DVT prophylaxis. PPI ordered. Patient requires inpatient admission for IV hydration, IV antibiotics monitoring Kidney function , Nephrology consult and physical therapy consult for increased weakness. Quality Stroke Does the patient have a stroke diagnosis?: No VTE Prior VTE?: No VTE Risk Level:: Medical - moderate - high VTE Device Contraindication: Treatment Not Tolerated VTE Drug Contraindication: N/A - Med Ordered
[2025-03-01 15:34] LABS: Glucose, Whole Blood 219 mg/dL (60-115)
[2025-03-01 20:02] LABS: Glucose, Whole Blood 235 mg/dL (60-115)
[2025-03-01] MEDS: Sennosides 8.6 MG TABLET 17.2 MG PO (20:38)
[2025-03-01] MEDS: Donepezil HCl 10 MG TABLET PO (20:38)
[2025-03-01] MEDS: Tamsulosin HCL 0.4 MG CAPSULE PO (20:39)
[2025-03-01] MEDS: Atorvastatin Calcium 40 MG TABLET PO (20:39)
[2025-03-01] MEDS: Melatonin 3 MG TABLET 6 MG PO (20:39)
[2025-03-02] MEDS: Doxycycline Hyclate 100 MG in 0.9 % Sodium Chloride 250 ML 166.67 MG IV (02:45)
[2025-03-02] MEDS: cefTRIAXone sodium 1 GM VIAL IVPUSH (02:45)
[2025-03-02 03:30] VITALS: O2SAT 88
[2025-03-02 03:35] VITALS: O2SAT 94
[2025-03-02 04:00] VITALS: BP 122/59; PULSE 65; RESP 18; TEMP 36.8; O2SAT 93
[2025-03-02] MEDS: Omeprazole 20 MG CAPSULE.DR PO (05:34)
[2025-03-02 05:51] LABS: MANUAL DIFF FLAG NO
[2025-03-02 05:56] LABS: Basophils Percent Auto 0.6 % (0-2); Eosinophils Absolute Auto 0.2 X10*3/uL (0.0-0.4); Eosinophils Percent Auto 2.9 % (0-4); Hematocrit 26.4 % (42.0-52.0); Hemoglobin 8.5 g/dl (14.0-18.0); Imm Gran Abs Auto 0.02 X10*3/uL (0.00-0.03); Imm Gran Pct Auto 0.3 % (0.0-0.4); Lymphocytes Absolute Auto 1.2 X10*3/uL (1.2-4.9); Lymphocytes Percent Auto 17.5 % (20-40); Mean Corpuscular HGB Conc 32.2 g/dl (31.0-36.0); Mean Corpuscular Hemoglobin 28.1 pg (27.0-33.0); Mean Corpuscular Volume 87.1 fL (80.0-98.0); Mean Platelet Volume 11.2 fL (9.4-12.4); Monocytes Absolute Auto 0.8 X10*3/uL (0.1-1.2); Monocytes Percent Auto 12.2 % (2-11); Neutrophils Absolute Auto 4.5 x10*3/uL (2.0-8.3); Neutrophils Percent Auto 66.5 % (45-73); Platelet Count 195 X10*3/uL (160-400); Red Blood Count 3.03 X10*6/uL (4.60-5.80); Red Cell Distribution Width 15.6 % (11.0-16.0); White Blood Count 6.8 X10*3/uL (4.8-10.8)
[2025-03-02 06:13] LABS: Anion Gap 13 (12-20); Blood Urea Nitrogen 34 mg/dL (9-16); Calcium 8.7 mg/dL (8.4-10.2); Carbon Dioxide 28 mmol/L (22-29); Chloride 104 mmol/L (96-108); Creatinine Clr Calc Pharmacy 43.4; Estimated Glomerular Filt Rate 38; Glucose Random 60 mg/dL (60-115); Potassium 3.6 mmol/L (3.3-5.1); Sodium 141 mmol/L (135-145)
[2025-03-02 07:27] LABS: Glucose, Whole Blood 80 mg/dL (60-115)
[2025-03-02 07:47] VITALS: BP 139/61; PULSE 65; RESP 20; TEMP 36.3; O2SAT 97
[2025-03-02] MEDS: Metoprolol Tartrate 100 MG TABLET PO (07:55)
[2025-03-02] MEDS: Aspirin 81 MG TAB.CHEW PO (07:56)
[2025-03-02] MEDS: Apixaban 5 MG TABLET PO (07:56)
[2025-03-02] MEDS: Isosorbide Mononitrate 60 MG TAB.ER.24H PO (07:56)
[2025-03-02] MEDS: Bumetanide 1 MG TABLET 2 MG PO (07:56)
[2025-03-02] MEDS: amLODIPine Besylate 2.5 MG TABLET PO (07:56)
[2025-03-02] MEDS: Empagliflozin 10 MG TABLET PO (07:56)
[2025-03-02] MEDS: Sucralfate 1 GM TABLET PO ×2 (07:56→12:23)
[2025-03-02] MEDS: Memantine HCl 10 MG TABLET PO (07:56)
[2025-03-02] MEDS: 0.9 % Sodium Chloride Flush 3 ML SYRINGE IVFLUSH (08:01)
[2025-03-02] MEDS: Milk of Magnesia 30 ML ORAL.SUSP PO (08:01)
[2025-03-02] MEDS: [UNRECOGNIZED DRUG - OTHER] 1 EACH SUBCUT (09:47)
--- NOTE | 2025-03-02 10:47 | MHC.CM.PN ---
PER MD ROUNDS, PT WILL BE CLEARED TO DC TODAY HOME WITH RESUMPTION OF SERVICES CM CALLED PTS SON/HCP. BELTRAN [phone], HE INDICATED HE WAS [employer]UR[employer] SPEAKING, HOWEVER DECLINED CM OFFER TO CALL BACK WITH AN [employer], HE INSTEAD PUT ANOTHER FAMILY MEMBER ON THE PHONE. PER DISCUSSION: PT WILL DC HOME VIA [facility] THIS AFTERNOON AT 1500 HOURS
[2025-03-02 11:42] LABS: Glucose, Whole Blood 203 mg/dL (60-115)
--- NOTE | 2025-03-02 11:44 | PM.DS ---
DS: Providers Provider Date of Service: 03/02/25 Date of admission: 02/27/25 23:01 Date of discharge: 03/02/25 Primary care physician: Kathy Villafana MD DS: Diagnosis Discharge Diagnosis (1) CAP (community acquired pneumonia): Status: Acute (2) Acute kidney injury superimposed on chronic kidney disease: Status: Acute (3) Weakness: Status: Acute (4) Hypermagnesemia: Status: Acute (5) Metabolic acidosis: Status: Acute DS: Summary Hospital Course Hospital Course: Admission note HPI a 79-year-old male Vietnamese-speaking only with past medical history of pneumonia, atrial fibrillation on anticoagulation, hypertension, gout, hyperlipidemia, CHF, allergic rhinitis, dementia, neuropathy, CAD, GERD, BPH, anemia and patient uses home O2 presents to the emergency department via EMS as family reported patient was exhibiting signs of weakness and possible tremor-like activity at least 2 times in the last 48 hours. Fire Extinguisher Mechanic was used to initiate HPI with patient but due to dementia patient was not able to elaborate on past medical history or current issues. Patient's son had already returned home. Patient is known to the hospitalist staff due to previous admissions. Overall concerns expressed by emergency provider were JAMES on chronic kidney disease, metabolic acidosis and CHF exacerbation with a noted elevated BNP. Patient did receive 1 L of IV fluid as patient may be dry. Periwick has been administered to monitor intake and output. There is no leukocytosis. Patient is afebrile. 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 Patient denies any headaches, vision changes or loss of feeling in the lower extremities. There were no concerns for seizure, tremors or alteration in baseline neuro status during exam for HPI. CTA of the head was completed and was negative for any acute findings. Patient currently able to interact, communicate verbally and there have been no issues with dysphagia including taking medications and eating food and drinking fluids. Patient has no noted deficits on either the right or left side on exam. Patient presented with no current wound issues.It should be noted per nursing staff that patient was living in [place] and was under the care of his son and his son abandon patient and could no longer care for him. Patient's other son who lives in this local area went to [place] and brought his father back to this area and has continued to provide care for some time. Son is also Vietnamese-speaking but per nursing appeared very worried overall about patient's issues medically. It may be that son and his family are in need of home care support and further education on CHF, dementia and aging. Per nursing staff patient usually walks with a cane. Hospital course # Acute kidney injury on CKD3, likely prerenal with elevated Cr to 2.5 on admission. improved to 1.76 with IV fluids and holding nephrotoxins as Bumex and Allopurinol. will decrease Bumex to 2 mg daily and Gabapentin to 400 mg bid rather than 800 mg bid. explained to family. to repeat BMP next week and follow with Nephrology follow up as outpatient. # Hx Diastolic CHF. Noted to be dehydrated on admission. BNP less than baseline. Held Bumex and given IV fluids. restarted Bumex 2 mg but decreasing it to daily only for now with closely monitoring his weight, urine output and follow up BMP. continue metoprolol. low Na diet. # Hypoxia secondary to community acquired Pneumonia, CXR showed LLL infiltrates. All viral studies were negative. Treated with Doxycycline and Ceftriaxone with good response as he was weaned off O2 supplement with no reported dyspnea or hypoxia. Cultures remained negative. # Metabolic acidosis. secondary to JAMES, resolved # Weakness . Patient does use a cane at home. No report of any recent falls. PT evaluated the patient and recommended [facility] to follow for home PT. # acute Hypermagnesemia , Held PO Magnesium for elevated readings. restart on discharge and follow with PCP. Discharge plan Continue Doxycycline and Ceftin for 1 more week Decrease Bumex to 2 mg daily instead of two times a day Monitor swelling in lower extremities , weight and breathing and discuss with PCP for further adjustment of Bumex dose. Decrease Gabapentin to 400 mg two times a day instead of 800 to decrease sedation and confusion repeat blood test next week and follow with nephrology as needed Time Attestation Discharge Coordination Time (in mins): 43 Quality: Safe Use of Opioids Does Pt have an Active Cancer Diagnosis on the Problem List?: No Quality: Stroke Does the patient have a stroke diagnosis?: No Physical Exam Vital Signs: Vital Signs: Last Vital Signs Temp 97.3 F 03/02/25 07:47 Pulse 65 03/02/25 07:47 Resp 20 03/02/25 07:47 BP 139/61 03/02/25 07:47 Pulse Ox 97 03/02/25 07:47 O2 Del Method Room Air 03/02/25 07:47 O2 Flow Rate 2 03/02/25 03:35 Oxygen Flow Rate 2 02/27/25 18:39 BMI result Body Mass Index 36.7 Const: Other: Constitutional : Awake, interactive, not in distress Neck : Normal inspection, Supple Cardiovascular : RRR, no JVP, trace lower extremity edema Respiratory : good bilateral air entry, no crackles, wheezes or rhonchi, on room air Gastrointestinal: soft, lax, Normal bowel sounds, Non tender Skin : Warm, Dry Neurological : Alert & oriented to self and place , No focal deficit DS: Data Data Completed and Pending Completed studies during hospitalization [Text1]: Procedures Control Bleeding in Gastrointestinal Tract, Via Natural or Artificial Opening Endoscopic (08/17/23) Excision of Right Foot Skin, External Approach (10/07/21) Excision of Stomach, Pylorus, Via Natural or Artificial Opening Endoscopic, Diagnostic (08/17/23) Insertion of Infusion Device into Upper Vein, Percutaneous Approach (11/27/24) Introduction of Mineral-based Topical Hemostatic Agent into Upper GI, Via Natural or Artificial Opening Endoscopic, [employer] 6 (08/17/23) Introduction of Other Therapeutic Substance into Upper GI, Via Natural or Artificial Opening Endoscopic (08/17/23) Transfusion of Nonautologous Frozen Plasma into Peripheral Vein, Percutaneous Approach (08/17/23) Transfusion of Nonautologous Red Blood Cells into Peripheral Vein, Percutaneous Approach (08/17/23) Labs on day of discharge: Laboratory Results - last 24 hr 03/01/25 03/01/25 03/02/25 15:12 19:53 05:30 WBC 6.8 RBC 3.03 L Hgb 8.5 L Hct 26.4 L MCV 87.1 MCH 28.1 MCHC 32.2 RDW 15.6 Plt Count 195 MPV 11.2 Immature Gran % (Auto) 0.3 Neut % (Auto) 66.5 Lymph % (Auto) 17.5 L [place] % (Auto) 12.2 H Eos % (Auto) 2.9 Baso % (Auto) 0.6 Lymph # (Auto) 1.2 [place] # (Auto) 0.8 Eos # (Auto) 0.2 Baso # (Auto) 0.0 Abs Immat Gran (auto) 0.02 Absolute Neuts (auto) 4.5 Absolute Nucleated RBC 0.000 Nucleated RBC % (auto) 0.0 Sodium 141 Potassium 3.6 Chloride 104 Carbon Dioxide 28 Anion Gap 13 BUN 34 H Creatinine 1.76 H Estim Creat Clear Calc 43.4 Estimated GFR 38 POC Glucose 219 H 235 H Random Glucose 60 Calcium 8.7 03/02/25 03/02/25 07:22 11:36 WBC RBC Hgb Hct MCV MCH MCHC RDW Plt Count MPV Immature Gran % (Auto) Neut % (Auto) Lymph % (Auto) [place] % (Auto) Eos % (Auto) Baso % (Auto) Lymph # (Auto) [place] # (Auto) Eos # (Auto) Baso # (Auto) Abs Immat Gran (auto) Absolute Neuts (auto) Absolute Nucleated RBC Nucleated RBC % (auto) Sodium Potassium Chloride Carbon Dioxide Anion Gap BUN Creatinine Estim Creat Clear Calc Estimated GFR POC Glucose 80 203 H Random Glucose Calcium Preliminary micro results at discharge 02/28/25 03:14 Blood Culture - Preliminary Blood - Venous No growth after 48 hours. 02/28/25 03:14 Blood Culture - Preliminary Blood - Venous No growth after 48 hours. Imaging Chest x-ray: Radiologist's impression: Impression: Left basilar consolidation and small pleural effusion This document has been electronically signed by: Emigdio Lyon MD on 02/28/2025 00:07:49 Discharge Plan Discharge Anticipated Discharge Date/Time: 03/02/25 11:27 Patient Disposition: Home Health Service Discharge Diagnosis: Pneumonia Acute kidney injury Referrals: Kathy Villafana MD [Primary Care Provider] - 1 Week Discharge Medications: New doxycycline monohydrate 100 mg Capsule 100 mg PO Q12H Qty: 14 0RF cefuroxime axetil 250 mg tablet 250 mg PO BID Qty: 14 0RF Continued Eliquis 5 mg tablet 5 mg PO BID donepezil 10 mg tablet 1 tab PO BEDTIME CertaVite Senior 0.4-300-250 mg-mcg-mcg tablet 1 tab PO DAILY atorvastatin [Lipitor] 40 mg tablet 40 mg PO BEDTIME Qty: 30 0RF metoprolol tartrate 100 mg tablet 100 mg PO BID memantine 10 mg tablet 10 mg PO BID allopurinol 100 mg tablet 50 mg PO DAILY (DME) lancets [Lancets,Ultra Thin] Misc See Rx Instructions .Route Qty: 100 0RF Rx Instructions: As directed cetirizine 10 mg tablet 10 mg PO DAILY magnesium oxide 250 mg magnesium tablet 250 mg PO DAILY isosorbide mononitrate 60 mg Tablet Extended Release 24 Hr 60 mg PO DAILY Qty: 90 0RF Protocol: Hold for SBP< HOLD for SBP < : 90 aspirin 81 mg Tablet,Chewable 81 mg PO DAILY Qty: 60 0RF amlodipine 5 mg tablet 2.5 mg PO DAILY Qty: 90 0RF tamsulosin [Flomax] 0.4 mg capsule 0.4 mg PO BEDTIME Qty: 60 0RF insulin asp prt-insulin aspart [Novolog Mix 70-30 U-100 Insuln] 100 unit/mL (70-30) solution 76 unit subcut BIDWM Rx Instructions: INJECT 76 UNITS SUBCUTANEOUSLY TWICE DAILY WITH BREAKFAST AND WITH DINNER dapagliflozin propanediol [Farxiga] 5 mg tablet 5 mg PO DAILY omeprazole 20 mg capsule,delayed release(DR/EC) 20 mg PO BID@0630,1630 sucralfate 1 gram tablet 1 g PO TIDAC diphenhydramine HCl [Nell-Dryl] 25 mg tablet 12.5 mg PO BEDTIME PRN (Reason: Allergy Symptoms) (DME) insulin syringe-needle U-100 1 mL 31 gauge x 5/16 syringe See Rx Instructions subcut TID Qty: 10 Rx Instructions: As directed Changed gabapentin 800 mg tablet 400 mg PO BID Qty: 60 0RF bumetanide 1 mg Tablet 2 mg PO DAILY Qty: 180 0RF Protocol: Hold for SBP< HOLD for SBP < : 90 Discharge Orders: Discharge Order (Routine); Ordered 03/02/25 Ordered By: Sarath Bennett Diet: Low salt diet Activity on Discharge: As tolerated Stand Alone Forms: Patient Portal Discharge page Print Language: Vietnamese Other Ambulatory Orders: Basic Metabolic Panel (Routine) Timeframe: 4 Days Facility: [facility] - Location: Laboratory Ordered By: Sarath Bennett Care Plan Goals: Continue Doxycycline and Ceftin for 1 more week Decrease Bumex to 2 mg daily instead of two times a day Monitor swelling in lower extremities , weight and breathing and discuss with PCP for further adjustment of Bumex dose. Decrease Gabapentin to 400 mg two times a day instead of 800 to decrease sedation and confusion repeat blood test next week and follow with nephrology as needed in Vietnamese: Contin?e con Doxiciclina y Ceftin por amy semana m?s. Disminuya Bumex a 2 mg amy vez al d?a en lugar de dos veces al d?a. Monitoree la hinchaz?n en las extremidades inferiores, el peso y la respiraci?n, y com?ntelo con efrnandez m?dico de atenci?n primaria para ajustar la dosis de Bumex si es necesario. Disminuya Gabapentina a 400 mg dos veces al d?a en lugar de 800 mg para reducir la sedaci?n y la confusi?n. Repita el an?lisis de hali la pr?xima semana y contin?e el seguimiento con nefrolog?a seg?n sea necesario. Health Concerns: Kidney injury Pneumonia Plan of Treatment: Antibiotics Medications adjustment Assessment: as above
[2025-03-02 12:00] VITALS: BP 127/65; PULSE 70; RESP 20; TEMP 36.3; O2SAT 98
--- NOTE | 2025-03-02 12:08 | P.F2F_ITS ---
Service Date Service Date: 03/02/25 Encounter Date of encounter: 03/02/25 Reasons for Services Signs and symptoms assessed: physical decondtioning renal failure, CHF Reason for long-term: medication management, teach disease management and other (FLuid overload, edema, SOB ) Reason for physical therapy: home safety and mobility and therapeutic exercises Homebound: Leaving the home is medically contraindicated at this time without the asist of a device and/or another person due th the listed conditions above and below. Reason homebound: unsteady gait / fall risk Certification: Based on the above findings, I certify that this patient is confined to the home and needs intermittent long-term care, physical therapy and/or speech therapy, or continues to need occupational therapy. The patient is under my care, and I have initiated the establishment of the plan of care. The patient will be followed by a physician who will periodically review the plan of care. Time Spent With Patient Time: Total time managing care of this patient today ____ minutes.
[2025-03-02] MEDS: Insulin Lispro 100 UNIT/ML 3 ML VIAL SUBCUT (12:23)
[2025-03-02] MEDS: Doxycycline Monohydrate 100 MG CAPSULE PO (14:12)
[2025-03-02 15:11] VITALS: BP 119/71; PULSE 82; RESP 20; TEMP 36.3; O2SAT 96
== END 2025-03-02 15:58 | disposition home health service (06) | DRG 193 ==
LOC: HO.ED 20:04 → HO.EDOVER 02-28 00:19 → HO.IMC 02-28 15:22
PROVIDERS: Admitting Provider Nurse Practitioner Family; Emergency Provider Internal Medicine; PCP General Practice; Visit Provider Student in an Organized Health Care Education/Training Program
DX: J18.9 Pneumonia, unspecified organism (principal); I13.0 Hypertensive heart and chronic kidney disease with heart failure and stage 1 through stage 4 chronic kidney disease, or unspecified chronic kidney disease; I50.33 Acute on chronic diastolic (congestive) heart failure; N17.9 Acute kidney failure, unspecified; I48.20 Chronic atrial fibrillation, unspecified; N18.32 Chronic kidney disease, stage 3b; E86.0 Dehydration; E83.41 Hypermagnesemia; G30.9 Alzheimer's disease, unspecified; F02.80 Dementia in other diseases classified elsewhere, unspecified severity, without behavioral disturbance, psychotic disturbance, mood disturbance, and anxiety; E11.22 Type 2 diabetes mellitus with diabetic chronic kidney disease; I25.10 Atherosclerotic heart disease of native coronary artery without angina pectoris; Z20.822 Contact with and (suspected) exposure to COVID-19; Z79.4 Long term (current) use of insulin; Z79.01 Long term (current) use of anticoagulants; Z79.84 Long term (current) use of oral hypoglycemic drugs; Z79.899 Other long term (current) drug therapy
CPT/HCPCS: 0241U; 36415; 70496; 70498; 71045; 80048; 80053; 81001; 82947; 83036; 83735; 83880; 84443; 84484; 84550; 85025; 85610; 85730; 87040; 87086; 93005; 97162; 99285; J0696; Q9967

== ENCOUNTER → 2025-02-27 19:06 | Outpatient (BNV) | payer OTHER, SELFPAY | PROVIDERS: Emergency Provider Internal Medicine; Visit Provider Radiology Diagnostic Radiology | DX: I67.82 Cerebral ischemia (principal); J90 Pleural effusion, not elsewhere classified | CPT/HCPCS: 70496; 70498; 71045 ==

== ENCOUNTER → 2025-02-27 19:09 | Outpatient (BNV) | payer OTHER, SELFPAY | PROVIDERS: Admitting Provider Nurse Practitioner Family; Emergency Provider Internal Medicine; Visit Provider Internal Medicine | DX: I48.91 Unspecified atrial fibrillation (principal) | CPT/HCPCS: 93010 ==

== ENCOUNTER → 2025-02-27 20:01 | Outpatient (BNV) | payer OTHER, SELFPAY | PROVIDERS: Emergency Provider Internal Medicine; Visit Provider Nurse Practitioner Family | DX: J18.9 Pneumonia, unspecified organism (principal); N17.9 Acute kidney failure, unspecified; N18.9 Chronic kidney disease, unspecified; R53.1 Weakness | CPT/HCPCS: 99233; 99239; G0180 ==

== ENCOUNTER 2025-02-27 23:01 | Outpatient (BNV) | payer OTHER, SELFPAY | END 2025-02-28 11:06 | PROVIDERS: Admitting Provider Nurse Practitioner Family; Emergency Provider Internal Medicine; Visit Provider Internal Medicine | DX: I48.91 Unspecified atrial fibrillation (principal) | CPT/HCPCS: 93010 ==

== ENCOUNTER 2025-03-07 15:26 | Inpatient (IN) | payer OTHER, SELFPAY ==
--- NOTE | ~2025-03-07 | CT_ITS ---
CLINICAL HISTORY: Unwitnessed fall, headache, R O fracture, bleed CT Brain without contrast Comparison: CT/REG/IL/SR - CT HEAD/BRAIN WO IV CON - 03/28/23 21:51 EDT FINDINGS: Cortical sulci: There is diffuse prominence of the cortical sulci compatible with age-related atrophy. Ventricles: Normal for age Brain parenchyma: There is patchy lucency throughout the deep white matter indicating chronic microvascular leukomalacia. Extra axial spaces: Normal Posterior Fossa: Normal Extracranial soft tissues: Normal Additional abnormality: Atherosclerosis calcification of the distal carotid artery and vertebral artery. IMPRESSION: Age-related atrophy with chronic microvascular leukomalacia. No hemorrhage, mass effect, or acute findings identified. This document has been electronically signed by: Hanna Masters MD on 03/07/2025 18:51:00
--- NOTE | ~2025-03-07 | XR_ITS ---
CLINICAL HISTORY: Fall weakness rule out pneumonia 1 view chest x-ray Comparison: 01/08/2025 Findings: Left basilar consolidation and small pleural effusion. Right lung now clear without infiltrates. No pneumothorax. Heart size enlarged. No acute bony abnormalities. Impression: Small left pleural effusion. Atelectasis/infiltrate of the left lung base. This document has been electronically signed by: Hanna Masters MD on 03/07/2025 17:21:02
--- NOTE | ~2025-03-07 | CT_ITS ---
CLINICAL HISTORY: Fall, neck pain CT cervical spine without contrast Comparison: CT/SR - CT ANGIO HEAD NECK - 02/27/25 20:24 EDT Findings: Vertebral alignment is within normal limits. There is degenerative change. No acute fractures or dislocations. No acute findings on limited view of the intracranial contents. No cervical fluid collections or masses. No consolidation or effusion at the lung apices. IMPRESSION: No acute findings. This document has been electronically signed by: Hanna Masters MD on 03/07/2025 18:56:42
[2025-03-07 15:34] VITALS: BP 116/54; BP 122/70; PULSE 65; PULSE 77; RESP 14; TEMP 36.3; O2SAT 93; O2SAT 97; BMI 35.4
--- NOTE | 2025-03-07 15:59 | ED.FALL ---
HPI - Fall General Chief Complaint: Fall Stated Complaint: unwit fall, dizzy Time Seen by Provider: 03/07/25 15:58 Source: patient and family (Hadley (son): [phone]-Sbdwicv-speaking only, Migdalia (kigbolge-bv-oyf): [phone]-wrpqml some Sudanese, Montserratian 1st language) Mode of arrival: EMS History of Present Illness ED Provider: Dr. Subhash Corey HPI Narrative: 80-year-old male, Montserratian-speaking past medical history of pneumonia, atrial fibrillation on anticoagulation, hypertension, gout, hyperlipidemia, CHF, allergic rhinitis, outside dementia, neuropathy, CAD, GERD, BPH, anemia and patient uses home O2 as needed who presents to the emergency department by ambulance for evaluation of unwitnessed fall. Information comes from the patient's son Hadley and qrtcdbby-zm-glk Migdalia. the son states he provides 24 hour care for his father. The patient woke up this morning, ate breakfast, took his medications and was lying in bed. The son went down stairs and the son's daughter came down stairs and said that the patient was lying on the bedroom floor. The patient had an unwitnessed fall. Patient complains of neck pain chronically and he was complaining of neck pain but had no other complaints. patient was recently admitted to [facility] from 02/27/2025 until 05/2025 for community-acquired pneumonia, acute on chronic kidney injury, weakness, hypomagnesemia. Related Data Home Medications ?Medication ?Instructions ?Recorded ?Confirmed apixaban 5 mg tablet (Eliquis) 5 mg PO BID 09/05/21 02/27/25 donepezil 10 mg tablet 1 tab PO BEDTIME 09/05/21 02/27/25 rezwmajr-wvf-asjaa acid 0.4 1 tab PO DAILY 09/05/21 02/27/25 mg-lycopene 300 mcg-lutein 250 mcg tablet (CertaVite Senior) allopurinol 100 mg tablet 50 mg PO DAILY gout pain 10/07/21 02/27/25 insulin syringe-needle U-100 1 mL #10 ea 12/22/21 05/08/22 31 gauge x 04/10 memantine 10 mg tablet 10 mg PO BID 05/08/22 02/27/25 metoprolol tartrate 100 mg tablet 100 mg PO BID 05/08/22 02/27/25 cetirizine 10 mg tablet 10 mg PO DAILY congestion 08/17/23 02/27/25 omeprazole 20 mg capsule,delayed 20 mg PO BID@0630,1630 05/17/24 02/27/25 release sucralfate 1 gram tablet 1 g PO TIDAC 05/17/24 02/27/25 magnesium oxide 250 mg PO DAILY 11/25/24 02/27/25 insulin aspar prt-insulin aspart 76 unit subcut BIDWM 12/24/24 02/27/25 100 unit/mL (70-30) subcutaneous soln (Novolog Mix 70-30 U-100 Insuln) diphenhydramine HCl 25 mg tablet 12.5 mg PO BEDTIME PRN Allergy 01/08/25 02/27/25 (Nell-Dryl) Symptoms dapagliflozin propanediol 5 mg 5 mg PO DAILY 02/27/25 02/27/25 tablet (Farxiga) Previous Rx's ?Medication ?Instructions ?Recorded atorvastatin 40 mg tablet (Lipitor) 40 mg PO BEDTIME #30 tabs 09/09/21 lancets (Lancets,Ultra Thin) #100 ea 10/21/21 amlodipine 5 mg tablet 2.5 mg (1/2 x 5 mg) PO DAILY #90 12/03/24 tabs aspirin 81 mg chewable tablet 81 mg PO DAILY #60 tabs 12/03/24 isosorbide mononitrate 60 mg 60 mg PO DAILY #90 tabs 12/03/24 tablet,extended release 24 hr tamsulosin 0.4 mg capsule (Flomax) 0.4 mg PO BEDTIME #60 caps 12/03/24 bumetanide 1 mg tablet 2 mg PO DAILY #180 tabs 03/02/25 cefuroxime axetil 250 mg tablet 250 mg PO BID #14 tabs 03/02/25 doxycycline monohydrate 100 mg 100 mg PO Q12H #14 caps 03/02/25 capsule gabapentin 800 mg tablet 400 mg (1/2 x 800 mg) PO BID #60 03/02/25 tabs Allergies Allergy/AdvReac Type Severity Reaction Status Date / Time No Known Allergies Allergy Verified 03/07/25 15:35 Review of Systems Review of Systems: Yes all other systems are reviewed and are negative [facility] Past Medical History Medical History (Updated 03/07/25 @ 19:24 by Subhash Corey MD) CHF exacerbation Chronic atrial fibrillation Diabetes mellitus Alzheimer's dementia Acute hypoxic respiratory failure Pneumonia Pneumonia Acute respiratory failure Hypoxia CAD (coronary artery disease) Trash foot Diabetic foot infection Heart failure with preserved ejection fraction HLD (hyperlipidemia) Atrial fibrillation NSTEMI (non-ST elevated myocardial infarction) Kidney failure Diabetes HTN (hypertension) Surgical History No pertinent past surgical history Family History Family History Father No problems noted. Mother No problems noted. Social History Social History Household Members: Family Household Members Other:: sons and daughter in law Housing: House Do you presently have visiting nurse or other home services: Yes Unable to assess alcohol history related to: Unable to respond Alcohol intake: never Patient Tobacco Use Status: Never used Tobacco Smoked in Last 30 Days: No e-Cigarette/Vaping Use: Never Used Second Hand Smoke Exposure: No Use of substances other than those prescribed or required for medical reasons: No Advance Directives: Yes Advance Directives on File: Yes Advance Directives Date on File: 09/06/21 Do you have a plan to hurt others: No Plan service: No Current occupational status: retired Physical Exam Vital Signs: Vital Signs: Last Vital Signs Temp 97.5 F 03/07/25 19:15 Pulse 73 03/07/25 19:15 Resp 16 03/07/25 19:15 BP 122/60 03/07/25 19:15 Pulse Ox 96 03/07/25 19:15 O2 Del Method Room Air 03/07/25 19:15 BMI result Body Mass Index 35.4 Vital signs were normal. Exam: General: Awake, alert in no distress , oriented to person only, has no memory of the fall Head: Normocephalic, atraumatic EENT: PERRL, Lids normal, sclera normal, conjunctiva normal, nose normal , ears normal, throat without erythema or exudates Neck: Supple, no adenopathy, no midline cervical spine tenderness Lung: breath sounds symmetric, no wheezing, rales or rhonchi Chest: symmetric movement, nontender Heart: regular rate and rhythm, normal S1, S2 no murmurs or rubs Abdomen: soft, non-tender, nondistended, normal bowel sounds Back: no vertebral tenderness, no CVAT Extremities: patient has blood on his toes of his left foot secondary to a nail injury to the 2nd toe, moves all extremities symmetrically, trace pitting edema to lower extremities. Neuro: Awake, alert, oriented 2 per, normal speech, cranial nerves intact, moves all extremities symmetrically Psych: Pleasant, cooperative Medications Administered Generic Name Dose Route Start Last Admin Trade Name Demetrio PRN Reason Stop Dose Admin Lactated Ringer's 1,000 mls @ 999 mls/hr 03/07/25 19:06 03/07/25 19:17 Lr IV 03/07/25 20:06 999 mls/hr .Q1H1M STA Administration Medical Decision Making Medical Decision Making [facility] Narrative: 80-year-old male, Montserratian-speaking past medical history of pneumonia, atrial fibrillation on anticoagulation, hypertension, gout, hyperlipidemia, CHF, allergic rhinitis, outside dementia, neuropathy, CAD, GERD, BPH, anemia and patient uses home O2 as needed who presents to the emergency department by ambulance for evaluation of unwitnessed fall. Patient woke up this morning and did it was normal routine. Son left him in bed and the patient had an unwitnessed fall and was found lying in the bedroom floor by his granddaughter. Vital signs were normal exam did reveal injury to the left 2nd toe with bleeding from the toenail but no suturable laceration. His exam was otherwise unremarkable Differential diagnosis: Includes but is not limited to skull fracture, intracranial bleed, neck fracture, neck sprain, myocardial infarction, myocardial ischemia, anemia, electrolyte abnormalities Course: 19:18 Independent interpretation patient's laboratory evaluation as follows: Chronic normocytic anemia with an H&H of 10.8 and 33.7[place] [address]. BUN and creatinine were elevated 32 and 2.29 with a low GFR of 28 compared to a GFR of 38 on 03/02/2025. Glucose elevated 275. This is consistent with a acute kidney injury. AST elevated 41. Troponin was detectable but not elevated at 5.3. Lipase was normal at 12. CK was 137. Urinalysis is pending collection. CT scan of the head and cervical spine revealed no acute process. Chest x-ray one view revealed no acute abnormalities. Given the patient has significant decrease in his GFR, I believe the patient has acute kidney injury on top of his chronic kidney disease. Patient was ordered to get lactated Ringer's x1 L. the patient will need admission to continue to give him IV fluids and to further evaluate his acute kidney injury. I did discuss admission over tiger text with the covering hospitalist Dr. Clark and the patient will be admitted for further treatment. Admission/Observation Consideration of admission/observation: Escalation of care including admission/observation considered ( yes) Lab Data MDM Lab Attestation statement: I reviewed the patient's lab results. 03/07/25 16:37 03/07/25 16:38 Labs: Lab Results 03/07/25 03/07/25 Range/Units 16:37 16:38 WBC 10.1 (4.8-10.8) X10*3/uL RBC 3.81 L D (4.60-5.80) X10*6/uL Hgb 10.8 L D (14.0-18.0) g/dl Hct 33.7 L D (42.0-52.0) % MCV 88.5 (80.0-98.0) fL MCH 28.3 (27.0-33.0) pg MCHC 32.0 (31.0-36.0) g/dl RDW 15.9 (11.0-16.0) % Plt Count 182 (160-400) X10*3/uL MPV 11.2 (9.4-12.4) fL Immature Gran % (Auto) 0.3 (0.0-0.4) % Neut % (Auto) 76.3 H (45-73) % Lymph % (Auto) 12.4 L (20-40) % [place] % (Auto) 9.0 (2-11) % Eos % (Auto) 1.4 (0-4) % Baso % (Auto) 0.6 (0-2) % Lymph # (Auto) 1.3 (1.2-4.9) X10*3/uL [place] # (Auto) 0.9 (0.1-1.2) X10*3/uL Eos # (Auto) 0.1 (0.0-0.4) X10*3/uL Baso # (Auto) 0.1 (0.0-0.2) X10*3/uL Abs Immat Gran (auto) 0.03 (0.00-0.03) X10*3/uL Absolute Neuts (auto) 7.7 (2.0-8.3) x10*3/uL Absolute Nucleated RBC 0.000 (0.0-0.012) X10*3/uL Nucleated RBC % (auto) 0.0 (0.0-0.2) /100WBC Sodium 138 (135-145) mmol/L Potassium 4.9 D (3.3-5.1) mmol/L Chloride 98 (96-108) mmol/L Carbon Dioxide 23 (22-29) mmol/L Anion Gap 22 H (12-20) BUN 32 H (9-16) mg/dL Creatinine 2.29 H (0.5-1.4) mg/dL Estim Creat Clear Calc 30.3 Estimated GFR 28 Random Glucose 275 H (60-115) mg/dL Calcium 9.0 (8.4-10.2) mg/dL Magnesium 2.5 (1.6-2.6) mg/dL Total Bilirubin 0.5 (0.0-1.0) mg/dL AST 41 H (5-37) U/L ALT 16 (0-40) U/L Alkaline Phosphatase 94 (39-117) U/L Total Creatine Kinase 137 (38-174) U/L Troponin I High Sens 5.3 (<3.5-35.0) ng/L Total Protein 7.7 (6.5-8.0) g/dL Albumin 3.8 (3.5-5.0) g/dL Lipase 12 (8-78) U/L Ethyl Alcohol < 10 mg/dL Independent Interpretation I performed an independent interpretation of an: EKG and Plain X-Ray Interpretation: My independent interpretation patient's 12 EKG done at 16:50 hours is as follows: Atrial fibrillation with a rate of 61, no ST segment elevation, no ST segment depression, diffuse flattening of the T-waves which are nonspecific. No PVCs. My independent interpretation patient's one-view chest x-ray is as follows: No acute disease Radiology Impression Discussion of test interpretation with radiology: I have reviewed the radiologist's reading. Radiologist Impression: 1 view chest x-ray Comparison: 01/08/2025 Findings: Left basilar consolidation and small pleural effusion. Right lung now clear without infiltrates. No pneumothorax. Heart size enlarged. No acute bony abnormalities. Impression: Small left pleural effusion. Atelectasis/infiltrate of the left lung base. This document has been electronically signed by: Hanna Masters MD on 03/07/2025 17:21:02 CT Brain without contrast Comparison: CT/REG/AL/SR - CT HEAD/BRAIN WO IV CON - 03/28/23 21:51 EDT FINDINGS: Cortical sulci: There is diffuse prominence of the cortical sulci compatible with age-related atrophy. Ventricles: Normal for age Brain parenchyma: There is patchy lucency throughout the deep white matter indicating chronic microvascular leukomalacia. Extra axial spaces: Normal Posterior Fossa: Normal Extracranial soft tissues: Normal Additional abnormality: Atherosclerosis calcification of the distal carotid artery and vertebral artery. IMPRESSION: Age-related atrophy with chronic microvascular leukomalacia. No hemorrhage, mass effect, or acute findings identified. This document has been electronically signed by: Hanna Masters MD on 03/07/2025 18:51:00 CT cervical spine without contrast Comparison: CT/SR - CT ANGIO HEAD NECK - 02/27/25 20:24 EDT Findings: Vertebral alignment is within normal limits. There is degenerative change. No acute fractures or dislocations. No acute findings on limited view of the intracranial contents. No cervical fluid collections or masses. No consolidation or effusion at the lung apices. IMPRESSION: No acute findings. This document has been electronically signed by: Hanna Masters MD on 03/07/2025 18:56:42 Discharge Plan Discharge Clinical Impression: Acute kidney injury Fall Qualifiers: Encounter type: initial encounter Qualified Code(s): W19.XXXA - Unspecified fall, initial encounter Print Language: Montserratian
--- NOTE | 2025-03-07 16:11 | ECG_ITS ---
Test Reason : weakness, fall Blood Pressure : */* mmHG Vent. Rate : 61 BPM Atrial Rate : * BPM P-R Int : * ms QRS Dur : 86 ms QT Int : 444 ms P-R-T Axes : * 32 47 degrees QTcB Int : 446 ms Atrial fibrillation Cannot rule out inferior infarct Abnormal ECG When compared with ECG of 28-Feb-2025 11:06, No significant changes seen Referred By: Subhash Corey Electronically Signed By: Brendon Joaquin
--- NOTE | 2025-03-07 16:33 | MHC.EDTECH ---
This tech walked into the patient's room to obtain patient's lab work and to complete an EKG. Patient's son who is bedside started to become defensive stating, he has dementia and I don't want my dad to be stuck multiple times - he has no veins. And if you can't find the vein, get someone else to do the job. This tech educated patient and other family member in regards to importance of obtaining blood work so the patient can receive a proper work up to ensure the best care. Family members then became agitated and became verbally aggressive towards this technical report writer stating, you started off right and now you're acting like a bitch. Other family member who is bedside then stated, you better fucking go before I punch you in the fucking face, you bitch. control valve mechanic/primary RN made aware of situation.
--- OUTSIDE RECORDS SUMMARY | 2025-03-07 16:34 | XMS_ITS | Encounter Summary ---
Author Organization [employer] Address [address] [facility] [address] [place] [address] Care Team Providers Care Dyeing Machine Tender Name Role Phone Kathy Villafana MD Primary Care Provider [phone] Encounter Details Date Type Department Care Team (Late st Contact Info) Description 02/09/2025 Telephone [facility] [address] [place], [place] [phone] Kathy Villafana MD [address] [place], [place] [phone] Social History Tobacco Use Types Packs/Day Years [...] Description 05/11/2025 3:45 PM EDT Office Visit [facility] [address] [place] [address] Kathy Villafana MD [address] [place] [address] documented as of this encounter Visit Diagnoses Not on filedocumented in this encounter Additional Health Concerns Assessment Noted Time PHQ-9 Depression Total Score: 0 02/20/20 24 2:34 PM EDT documented as of this encounter Care Teams Dyeing Machine Tender Relationship Specialty Start Date End Date Kathy Villafana MD [address] [place] [phone] PCP - General Family Medicine 08/05/21 [facility] 12/04/24 Corinne A 01/15/25 documented as of this encounter
--- OUTSIDE RECORDS SUMMARY | 2025-03-07 16:34 | XMS_ITS | Encounter Summary ---
Author Organization [employer] Address [address] [facility] 7t [place] [address] Care Team Providers Care Bottling Attendant Name Role Phone Kathy Villafana MD Primary Care Provider [phone] Reason for Visit * Reason Onset Date Comments difficulty with extraction 05/23/2023 Encounter Details Date Type Department Care Team (Late st Contact Info) Description 05/23/2023 Telephone [facility]ULT D[facility] [address] [place], [place] [phone] Tr Tay DDS [address] [place], [place] [phone] difficulty with extraction Social History Tobacco Use [...] No room on PAR end. Can front office supervisor help with scheduling . * Telephone Encounter [...] patient to be seen today. Called front office supervisor. Recommended to contact you for insight documented in this encounter Plan of Treatment Upcoming Encounters Date Type Department Care Team (Late st Contact Info) Description 05/11/2025 3:45 PM EDT Office Visit [facility] [address] [place] [address] Kathy Villafana MD [address] [place] [address] documented as of this encounter Visit Diagnoses Not on filedocumented in this encounter Additional Health Concerns Assessment Noted Time PHQ-9 Depression Total Score: 0 01/22/20 23 3:42 PM EST documented as of this encounter Care Teams Bottling Attendant Relationship Specialty Start Date End Date Kathy Villafana MD [address] [place] [address] PCP - General Family Medicine 08/05/21 [facility] 12/04/24 Corinne VNA 01/15/25 documented as of this encounter
--- OUTSIDE RECORDS SUMMARY | 2025-03-07 16:34 | XMS_ITS | Encounter Summary ---
Author Organization [employer] Address [address] [facility] [address] [place] [address] Care Team Providers Care Squaring Machine Operator Name Role Phone Kathy Villafana MD Primary Care Provider [phone] Reason for Visit * Reason Onset Date Comments Appointment Request 02/12/2025 Encounter Details Date Type Department Care Team ([facility] st Contact Info) Description 02/12/2025 Telephone [facility] [address] [place], [place] [phone] Kathy Villafana MD [address] [place], [place] [phone] Appointment Request Social History Tobacco Use Types [...] Description 05/11/2025 3:45 PM EDT Office Visit [facility] [address] [place] [address] Kathy Villafana MD [address] [place] [address] documented as of this encounter Visit Diagnoses Not on filedocumented in this encounter Additional Health Concerns Assessment Noted Time PHQ-9 Depression Total Score: 0 02/20/20 24 2:34 PM EDT documented as of this encounter Care Teams Squaring Machine Operator Relationship Specialty Start Date End Date Kathy Villafana MD [address] [place] [phone] PCP - General Family Medicine 08/05/21 [facility] 12/04/24 Corinne A 01/15/25 documented as of this encounter
--- OUTSIDE RECORDS SUMMARY | 2025-03-07 16:34 | XMS_ITS | Encounter Summary ---
Author Organization [employer] Address [address] [address] [facility] [place] [address] Care Team Providers Care Radio Announcer Name Role Phone Kathy Villafana MD Primary Care Provider [phone] Encounter Details Date Type Department Care Team (Late st Contact Info) Description 01/09/2025 Orders Only [facility] [address] [place], [place] [phone] Kathy Villafana MD [address] [place], [place] [phone] Social History Tobacco Use Types Packs/Day Years [...] Visit [facility] [address] [place] [address] Kathy Villafana MD [address] [place] [address] documented as of this encounter Visit Diagnoses Not on filedocumented in this encounter Additional Health Concerns Assessment Noted Time PHQ-9 Depression Total Score: 0 02/20/20 24 2:34 PM EDT documented as of this encounter Care Teams Radio Announcer Relationship Specialty Start Date End Date Kathy Villafana MD [address] [place] [phone] PCP - General Family Medicine 08/05/21 [facility] 12/04/24 Corinne A 01/15/25 documented as of this encounter
--- OUTSIDE RECORDS SUMMARY | 2025-03-07 16:34 | XMS_ITS | Encounter Summary ---
Author Organization [facility] Address [address] [facility] 7t [place] [address] Care Team Providers Care Supervisor Poultry Processing Name Role Phone Kathy Villafana MD Primary Care Provider [phone] Encounter Details Date Type Department Care Team (Late Contact Info) Description 05/22/2023 Abstract [facility] ADULT DENTAL [address] [place], [place] [phone] Tr Tay DDS [address] [place], [place] [phone] Social History Tobacco Use Types Packs/Day Years [...] Upcoming Encounters Date Type Department Care Team ([facility] Contact Info) Description 05/11/2025 3:45 PM EDT Office Visit [facility] [address] [place], [place] [phone] Kathy Villafana MD [address] [place] [address] documented as of this encounter Visit Diagnoses Not on filedocumented in this encounter Additional Health Concerns Assessment Noted Time PHQ-9 Depression Total Score: 0 01/22/20 23 3:42 PM EST documented as of this encounter Care Teams Supervisor Poultry Processing Relationship Specialty Start Date End Date Kathy Villafana MD [address] [place] [address] PCP - General Family Medicine 08/05/21 [facility] 12/04/24 Corinne BROOKSA 01/15/25 documented as of this encounter
--- OUTSIDE RECORDS SUMMARY | 2025-03-07 16:34 | XMS_ITS | Encounter Summary ---
Author Organization [email or web address] [facility] Address [address] [place] [address] 7t [place] [address] Care Team Providers Care Manager Nursing Name Role Phone Kathy Villafana MD Primary Care Provider Reason for Visit * Reason Comments Med Refill Encounter Details Date Type Department Care Team (Late Contact Info) Description 05/24/2023 Refill [facility] [address] [place] [phone] Kathy Villafana MD [address] [place] [phone] Social History Tobacco Use Types Packs/Day Years [...] Upcoming Encounters Date Type Department Care Team ([facility] Contact Info) Description 05/11/2025 3:45 PM EDT Office Visit [facility] [address] [place] [address] Kathy Villafana MD [address] [place] [address] documented as of this encounter Visit Diagnoses Not on filedocumented in this encounter Additional Health Concerns Assessment Noted Time PHQ-9 Depression Total Score: 0 01/22/20 23 3:42 PM EST documented as of this encounter Care Teams Manager Nursing Relationship Specialty Start Date End Date Kathy Villafana MD [address] [place] [address] PCP - General Family Medicine 08/05/21 [facility] 12/04/24 Corinne [facility] 01/15/25 documented as of this encounter
--- OUTSIDE RECORDS SUMMARY | 2025-03-07 16:34 | XMS_ITS | Encounter Summary ---
Author Organization [employer] Address [address] [facility] 7t [place] [address] Care Team Providers Care Furnace Feeder Name Role Phone Kathy Villafana MD Primary Care Provider [phone] Encounter Details Date Type Department Care Team (Late st Contact Info) Description 01/12/2023 Orders Only [facility] [address] [place] [address] Mary Ann Skaggs LPN Social History Tobacco [...] 3:45 PM EDT Office Visit [facility] [address] [place] [address] Kathy Villafana MD [address] [place] [address] documented as of this encounter Visit Diagnoses Not on filedocumented in this encounter Care Teams Furnace Feeder Relationship Specialty Start Date End Date Kathy Villafana MD [address] [place] [address] PCP - General Family Medicine 08/05/21 [facility] documented as of this encounter
--- OUTSIDE RECORDS SUMMARY | 2025-03-07 16:34 | XMS_ITS | Encounter Summary ---
Author Organization [employer] Address [address] 7[address] [place] [address] Care Team Providers Care Vault Attendant Name Role Phone Kathy Villafana MD Primary Care Provider [phone] Reason for Visit * Reason Onset Date Comments Hospital Follow-up 01/20/2025 Encounter Details Date Type Department Care Team ([facility] st Contact Info) Description 01/20/2025 Telephone [facility] [address] [place], [place] [phone] Kathy Villafana MD [address] [place], [place] [phone] Hospital Follow-up Social History Tobacco Use Types [...] from pt requesting a HDF appt. Hospital: [facility] Date of admission: 01/08/2025 Discharge date: 01/13/2025 Diagnosed:hypoxic respiratory failure *Send message to [place] Clinical Care Coordinators documented in this encounter Plan of Treatment Upcoming Encounters Date Type Department Care Team (Late st Contact Info) Description 05/11/2025 3:45 PM EDT Office Visit [facility] [address] [place] [phone] Kathy Villafana MD [address] [place] [phone] documented as of this encounter Visit Diagnoses Not on filedocumented in this encounter Additional Health Concerns Assessment Noted Time PHQ-9 Depression Total Score: 0 02/20/20 24 2:34 PM EDT documented as of this encounter Care Teams Vault Attendant Relationship Specialty Start Date End Date Kathy Villafana MD [address] [place] [phone] PCP - General Family Medicine 08/05/21 [facility] 12/04/24 [place] A 01/15/25 documented as of this encounter
--- OUTSIDE RECORDS SUMMARY | 2025-03-07 16:34 | XMS_ITS | Encounter Summary ---
Author Organization [facility] Address [address] [place] [address] 7t [place] [address] Care Team Providers Care Cook Railroad Name Role Phone Kathy Villafana MD Primary Care Provider [phone] Reason for Visit * Reason Comments Med Refill Encounter Details Date Type Department Care Team (Late st Contact Info) Description 05/16/2023 Refill [facility] [address] [place] [address] [phone] Kathy Villafana MD [address] [place] [address] [phone] Social History Tobacco Use Types Packs/Day Years [...] 3:45 PM EDT Office Visit [facility] [address] [place] [address] [phone] Kathy Villafana MD [address] [place] [address] [phone] documented as of this encounter Visit Diagnoses Not on filedocumented in this encounter Additional Health Concerns Assessment Noted Time PHQ-9 Depression Total Score: 0 01/22/20 23 3:42 PM EST documented as of this encounter Care Teams Cook Railroad Relationship Specialty Start Date End Date Kathy Villafana MD [address] [place] [address] PCP - General Family Medicine 08/05/21 [facility] 12/04/24 Corinne [facility] 01/15/25 documented as of this encounter
--- OUTSIDE RECORDS SUMMARY | 2025-03-07 16:34 | XMS_ITS | Encounter Summary ---
Author Organization [employer] Address [address] [facility] 7t [place] [address] Care Team Providers Care Industrial Maintenance Electrician Name Role Phone Kathy Villafana MD Primary Care Provider Encounter Details Date Type Department Care Team (Late st Contact Info) Description 12/12/[address] [facility] [address] [place] [address] Mary Ann Skaggs LPN Social History Tobacco [...] Description 05/11/2025 3:45 PM EDT Office Visit [facility] [address] [place] [address] Kathy Villafana MD [address] [place] [address] documented as of this encounter Visit Diagnoses Not on filedocumented in this encounter Care Teams Industrial Maintenance Electrician Relationship Specialty Start Date End Date Kathy Villafana MD [address] [place] [address] PCP - General Family Medicine 08/05/21 [facility]04[facility] documented as of this encounter
--- OUTSIDE RECORDS SUMMARY | 2025-03-07 16:34 | XMS_ITS | Clinical Summary ---
Author Organization [employer] Address [address] [facility] [address] 7t [place] [address] Care Team Providers Care Latex Foam Worker Name Role Phone Kathy Villafana MD Primary Care Provider [phone] Allergies No known active allergies Medications Blood [...] complication, with long-term current use of insulin ([facility]) INJECT 76 UNITS SUBCUTANEOUSLY WITH BREAKFAST, AND [...] affected areas 150 g Active Continuous Glucose Cnc Mill Programmer ([employer] [place] 2 [place]) deviceIndication s:Type 2 diabetes mellitus with diabetic neuropathy, with long-term current use of insulin ([facility]) Scan sensor every 8 hours 1 each Active Continuous Glucose Sensor ([place] 2 Sensor) miscIndications: Type 2 diabetes mellitus with diabetic neuropathy, with long-term current use of insulin ([facility]) Apply 1 sensor every 14 days 2 each Active apixaban (Eliquis) 5 MG tabletIndication s:Atrial fibrillation, unspecified type ([facility]) TAKE 1 TABLET BY MOUTH TWICE DAILY [...] hyperglycemia, with long-term current use of insulin ([facility]) TEST BLOOD SUGAR THREE TIMES DAILY 100 [...] MOUTH AT BEDTIME NEEDED 90 tablet 3 025 Active amLODIPine (Norvasc) 2.5 MG tablet TAKE 1 TABLET BY MOUTH EVERY MORNING 30 tablet 11 025 Active tamsulosin (Flomax) 0.4 MG 24 hr capsule TAKE 1 CAPSULE BY MOUTH AT BEDTIME 30 capsule 11 Active cetirizine (ZyrTEC) 10 MG tablet TAKE 1 TABLET BY MOUTH EVERY MORNING 90 tablet 3 025 Active hydrocortisone 2.5 % cream APPLY TOPICALLY TO THE AFFECTED AREA(S) THREE TIMES DAILY IN THE MORNING, AT NOON, AND AT BEDTIME 30 g 1 Active diphenhydrAMINE (Nell-Dryl) 25 MG tablet TAKE 1/2 TABLET BY MOUTH AT BEDTIME NEEDED 90 tablet 3 024 2024 Discontinued(R eorder (will not trigger notification to Pharmacy)) cetirizine (ZyrTEC) 10 MG tablet TAKE 1 TABLET BY MOUTH EVERY MORNING 90 tablet 024 2024 Discontinued amLODIPine (Norvasc) 5 MG tablet Take 0.5 tablets (2.5 mg) by mouth Once per day. 15 tablet 025 2024 Discontinued bumetanide (Bumex) 1 MG [...] Villafana, here for a HDF Admitted to [facility] from 05/17-05/19/2024 Patient presented c/o dizziness [...] sebaceous cysts on his back, his care process manager recently drained one and although there [...] will be referred to PT/OT clinic for aruv-ld-fsts examination, and after evaluation by PT/OT will order a power mobility device. Chronic periodontitis 05/21/2023 Alzheimer's disease 01/22/2023 Assessment & Plan (05/21/2024 10:21 AM EDT): Continue Donepezil 10mg and Memantine 10mg daily Son is MARRIAGE AND FAMILY COUNSELOR, needs assistance with paperwork for medical power or assistant county attorney Decided against medical guardianship due to fears he would become responsible for debts of his father Continue day/night cycles Continue gentle redirection during hallucinations Assessment & Plan (06/15/2023 6:06 AM EDT): Continue Donepezil 10mg and Memantine 10mg daily Son is MARRIAGE AND FAMILY COUNSELOR, needs assistance with paperwork for medical power or assistant county attorney Decided against medical guardianship due to fears he would become responsible for debts of his father Continue day/night cycles Continue gentle redirection during hallucinations Assessment & Plan (01/25/2023 1:02 PM EST): Continue Donepezil 10mg Son is MARRIAGE AND FAMILY COUNSELOR and medical power or assistant county attorney Atrial fibrillation 01/22/2023 Assessment & Plan [...] Encounters Date Type Department Care Team Description 03/07/2025 Refill [facility] [address] [place] [address] Kathy Villafana MD Atrial fibrillation, unspecified type ([facility]) 2025 Telephone [facility] [address] [place] [address] Kathy Villafana MD FYI 02/16/2025 Telephone [facility] [address] [place] [address] Kathy Villafana MD No Show 02/16/2025 Telephone [facility] [address] [place] [address] Kathy Villafana MD 02/16/2025 Refill [facility] [address] [place] [address] Kathy Villafana MD 02/12/2025 Telephone [facility] [address] [place] [phone] Kathy Villafana MD Appointment Request 02/12/2025 Refill [facility] [address] [place] [phone] Kathy Villafana MD 02/09/2025 2:45 PM EDT Telemedicine [facility] [address] [place] [phone] Kathy Villafana MD Hospital discharge follow-up (Primary Dx); CKD stage 3 secondary to diabetes (CMS/HCC); Dietary counseling; Exercise counseling; Class 2 severe obesity with serious comorbidity and body mass index (BMI) of 36.0 to 36.9 in adult, unspecified obesity type (CMS/HCC); Alzheimer's disease (CMS/HCC); Generalized edema; Poor mobility 02/09/2025 Telephone [facility] [address] [place] [phone] Kathy Villafana MD 02/09/2025 Travel 02/09/2025 Telephone [facility] [address] [place] [phone] Kathy Villafana MD [facility] (Incontinence supply, glove, exam vnyl lg) 02/09/2025 Telephone [facility] [address] [place] [phone] Amairani Knowles, PharmD 02/02/2025 Refill [facility] [address] [place] [phone] Kathy Villafana MD 01/20/2025 Patient Outreach [facility] [address] [place] [phone] Kathy Villafana MD Transition Of Care (Tcm) (HDF- Scheduled) 01/20/2025 Telephone [facility] [address] [place] [phone] Kathy Villafana MD Hospital Follow-up 01/16/2025 Telephone [facility] [address] [place] [address] Kathy Villafana MD FYI 01/11/2025 Refill [facility] [address] [place], [place] [address] [address] Kathy Villafana MD Type 2 diabetes mellitus with hyperglycemia, with long-term current use of insulin ([facility]) 01/09/2025 Orders Only [facility] [place] [address] Kathy Villafana MD 01/08/2025 Orders Only GENERIC EXTERNAL DATA DEPARTMENT Provider, Generic External Data 01/08/2025 Refill [facility] [place] [address] Kathy Villafana MD 01/07/2025 Telephone [facility] [place] [place] [address] Kathy Villafana MD New Med Request 01/06/2025 Orders Only GENERIC EXTERNAL DATA DEPARTMENT Provider, Generic External Data 01/02/2025 Telephone [facility] [place] [address] Kathy Villafana MD Lab Orders 01/02/2025 Telephone [facility] [place] [address] Kathy Villafana MD Durable Medical Equipment 12/16/2024 9:15 AM EST Office Visit [facility] [place] [address] Kathy Villafana MD Chronic renal disease, stage IV ([facility]) (Primary Dx); CKD stage 3 secondary to diabetes ([facility]); RSV (acute bronchiolitis due to respiratory syncytial virus) 12/16/2024 Refill [facility] [place] [address] Kathy Villafana MD 12/16/2024 Travel 12/09/2024 Refill [facility] [place] [address] Shama Winter, PharmD from Last 3 Months Social History Tobacco [...] PM EDT Office Visit [facility] [address] [place] [address] Kathy Villafana MD [address] [place] [address] Health Maintenance Due Date Last Done Comments [...] Screening 02/19/2025 02/20/2024 Eye Exam 08/29/2025 08/29/2024, 1002/2024, 08/29/2024, Additional history exists Tobacco Screening 02/09/2026 02/09/2025 Dental X-Ray: Full Mouth 05/22/2026 05/21/2023 HIB Vaccines Aged Out No longer eligi [...] neuropathy, with long-term current use of insulin ([facility]) LIPID PANEL, STANDARD Routine 02/20/2024 3:00 PM EDT Type 2 diabetes mellitus with diabetic neuropathy, with long-term current use of insulin ([facility]) INTRAORAL - COMPLETE SERIES OF RADIOGRAPHIC IMAGES Routine 05/21/2023 2:30 PM EDT PERIODIC ORAL EVALUATION - ESTABLISHED PATIENT Routine 05/21/2023 2:30 PM EDT from Last 3 Months or Most Recently Relevant to Health Maintenance Results * (ABNORMAL) VENOUS BLOOD GAS (01/08/2025 2:42 PM EST) Only the most recent of3 resultswithin the time period is included. VBG pH 7.32 7.32 - 7.43 [facility] Comment:METER #: [id number] additional_comment: Gary robles VBG PCO2 76 mmHg [facility] Comment:METER #: [id number] additional_comment: Gary robles VBG PO2 57 mmHg [facility] Comment:METER #: [id number] additional_comment: Gary MARIEG Base Excess 11.5 mmol/L [facility] Comment:METER #: [id number] additional_comment: Gary MARIEG HCO3 40(H) 22 - 26 mmol/L [facility] Comment:METER #: [id number] additional_comment: Gayr robles O2 Sat, Cas 81.0 % [facility] Comment:METER #: [id number] additional_comment: Gary robles 01/08/2025 2:42 PM EST 01/08/2025 2:47 PM EST us Generic External Data Provider LAB BLOOD ORDERAB LES Final Result [facility] [address] [place] [phone] * High Sensitivity Troponin I (01/08/2025 2:39 PM EST) Pathologist [facility] TROPONIN I HIGH SENSITIVITY 6.8 <3.5 - 35.0 ng/L [facility] Comment:The Patel high sens itivity Troponin-I results should beused in conjunction with other diagnostic information suchas ECG, clinical observations and information, and patientsymptoms to aid in the diagnosis of [place]. 01/08/2025 2:39 PM EST 01/08/2025 2:43 PM EST Generic External Data Provider LAB BLOOD ORDERAB LES Final Result Performing Organization Address [facility]/ZIP Co de Phone Number [facility] [address] [place] [phone] * SARS-CoV-2 RNA, Influenza A/B, and RSV RNA, Ql NAAT (01/08/2025 12:19 PM EST) Only the most recent of2 resultswithin the time period is included. [facility] Influenza A PCR NEGATIVE Negative [facility] Influenza B PCR NEGATIVE Negative [facility] Resp Syncy Virus RNA Qual PCR NEGATIVE Negative [facility] SARS COV2 PCR NEGATIVE Negative [facility] Comment:All test results mus t be [...] use by authorized laboratories.Testing performed on the [employer] GeneXpert utilizingreal-time RT-PCR.All SARS CoV2 and positive influenza A/B results arereported to [facility]. 01/08/2025 12:1 9 PM EST 01/08/2025 12:21 PM EST Generic External Data Provider LAB MICROBIOLOGY - GENERAL ORDERABLES Final Result Performing Organization Address City/[facility]/ZIP Co de Phone Number [facility] [address] [place] [phone] * (ABNORMAL) Partial Thromboplastin Time, Activated (APTT) (01/08/2025 9:32 AM EST) Partial Thromboplastin Time 37.2(H) 26.0 - 36.8 SEC [facility] Comment:For information rega rding the monitoring of direct thrombininhibitors, please refer to Pharmacy. 01/08/2025 9:32 AM EST 01/08/2025 9:39 AM EST Generic External Data Provider LAB BLOOD ORDERAB LES Final Result Performing Organization Address [facility] Phone Number [facility] [address] [place] [phone] * (ABNORMAL) Prothrombin Time-INR (01/08/2025 9:32 AM EST) Prothrombin Time 17.3(H) 10.9 - 12.4 SEC [facility] INTERNATIONAL NORM RATIO 1.5(H) 0.9 - 1.1 [facility] Comment:INTERNATIONAL NORMAL IZED RATIO (INR) REFERENCE [...] ORDERAB LES Final Result Performing Organization Address [facility] Co de Phone Number [facility] [address] [place] [phone] * Lactic Acid (01/08/2025 9:32 AM EST) Lactic Acid 1.3 0.5 - 2.0 mmol/L [facility] 01/08/2025 9:32 AM EST 01/08/2025 9:39 AM EST us Generic External Data Provider LAB BLOOD ORDERAB LES Final Result [facility] [address] [facility] [place] [address] [phone] * XR Chest 1 View (01/08/2025 9:18 AM EST) Only the most recent of2 resultswithin the time period is included. Anatomical Region Laterality Modality Chest Radiographic Agueda ging 01/08/2025 9:18 AM EST Narrative 01/08/2025 11:08 AM EST ? [facility] ?[address] ?[place] [address] ?XRay Report ? Signed ? Patient: Dayton Oquendo ?MR#: ?? [id number] ? : 1945 ?Acct:[id number] ? Age/Sex: 79 / M ?ADM Date: 01/08/25 ? Loc: HO.ED ? Attending Dr: ? Ordering Physician: Subhash Corey MD ?? Date of Service: 01/08/25 ?? Procedure(s): XR chest 1V ?? Accession Number(s): [id number] ? cc: Kathy Villafana; Subhash Corey MD [...] ??Rony Lion MD ??01/08/2025 11:05 AM EST ?? RP ? Dictated By: ?Rony Lion MD ? Signed By: ?<Electronically signed by Rony Lion MD in OV> ?01/08/255 ? DD/ 0918 ? TD/TT: 01/08/25 1053 ? Paedodontist: ? Procedure Note Donoteverettinterpreter, Image - 01/08/[address] [address] XRay Report Signed Patient: Dayton Oquendo AMR#: [id number] : 5Acct:[id number] Age/Sex: 79 / MADM Date: 01/08/25 Loc: HO.ED Attending Dr: Ordering Physician: Subhash Corey MD Date of Service: 01/08/25 Procedure(s): XR chest 1V Accession Number(s): [id number] cc: Kathy Villafana; Subhash Corey MD EXAMINATION: [...] Rony Lion MD 01/08/2025 11:05 AM EST Dictated By: Rony Lion MD Signed By: <Electronically signed by Rony Lion MD in OV> 01/08/25 1105 DD/ 0918 TD/TT: 01/08/25 1053 Paedodontist: [facility] External Provider IMG XR PROCEDURES Edited Result - Final * (ABNORMAL) CBC auto differential (01/06/2025 3:40 PM EST) White Blood Count 9.1 4.8 - 10.8 X10*3/uL [facility] Red Blood Count 3.42(L) 4.60 - 5.80 X10*6/uL [facility] Hemoglobin 10.2(L) 14.0 - 18.0 g/dl [facility] Hematocrit 33.1(L) 42.0 - 52.0 % [facility] Mean Corpuscular Volume 96.8 80.0 - 98.0 fL [facility] Mean Corpuscular Hemoglobin 29.8 27.0 - 33.0 pg [facility] Mean Corpuscular HGB Conc 30.8(L) 31.0 - 36.0 g/dl [facility] Red Cell Distribution Width 15.7 11.0 - 16.0 % [facility] Platelet Count 180 160 - 400 X10*3/uL [facility] Mean Platelet Volume 12.1 9.4 - 12.4 fL [facility] Neutrophils Percent Auto 85.2(H) 45 - 73 % [facility] Imm Gran Pct Auto 0.3 0.0 - 0.4 % [facility] Lymphocytes Percent Auto 7.4(L) 20 - 40 % [facility] Monocytes Percent Auto 5.9 2 - 11 % [facility] Eosinophils Percent Auto 1.0 0 - 4 % [facility] Basophils Percent Auto 0.2 0 - 2 % [facility] NRBC Pct Auto 0.0 0.0 - 0.2 /100WBC [facility] Neutrophils Absolute Auto 7.8 2.0 - 8.3 x10*3/uL [facility] Imm Gran Abs Auto 0.03 0.00 - 0.03 X10*3/uL [facility] Lymphocytes Absolute Auto 0.7(L) 1.2 - 4.9 X10*3/uL [facility] Monocytes Absolute Auto 0.5 0.1 - 1.2 X10*3/uL [facility] Eosinophils Absolute Auto 0.1 0.0 - 0.4 X10*3/uL [facility] Basophils Absolute Auto 0.0 0.0 - 0.2 X10*3/uL [facility] NRBC Abs Auto 0.000 0.0 - 0.012 X10*3/uL [facility] 01/06/2025 3:40 PM EST 01/06/2025 3:43 PM EST Generic External Data Provider LAB BLOOD ORDERAB LES Final Result Performing Organization Address [facility] Co de Phone Number [facility] [address] [place] [phone] * (ABNORMAL) B Type Natriuretic Peptide (BNP) (01/06/2025 3:40 PM EST) [facility] B Type Natriuretic Peptide 430(H) <100 pg/mL [facility] Comment:For those patients w ho are being treated with Natrecor(nesiritide, recombinant BNP), BNP testing should beperformed at least two hours post treatment in order toensure that only endogenous levels of BNP are detected. 01/06/2025 3:40 PM EST 01/06/2025 3:43 PM EST Generic External Data Provider LAB BLOOD ORDERAB LES Final Result Performing Organization Address [facility] de Phone Number [facility] [address] [place] [phone] * (ABNORMAL) Basic Metabolic Panel (01/06/2025 3:40 PM EST) [facility] Sodium 139 135 - 145 mmol/L [facility] Potassium 5.6(H) 3.3 - 5.1 mmol/L [facility] Comment:Slight Hemolysis.Int erpret result with caution. Chloride 102 96 - 108 mmol/L [facility] Carbon Dioxide 28 22 - 29 mmol/L [facility] Anion Gap 15 12 - 20 [facility] Urea Nitrogen (BUN) 30(H) 9 - 16 mg/dL [facility] Creatinine, Serum 1.85(H) 0.5 - 1.4 mg/dL [facility] Creatinine Clr Calc Pharmacy TNP [facility] Comment:Unable to calculate eCrCL; all parameters not provided. Estimated Glomerular Filt Rate 35 [facility] Comment:Chronic Kidney Disea se: Estimated GFR < 60 mL/min/[id number] Kidney Disease: Estimated GFR < 15 mL/min/1.73m2 Glucose 323(H) 60 - 115 mg/dL [facility] Calcium 8.8 8.4 - 10.2 mg/dL [facility] 01/06/2025 3:40 PM EST 01/06/2025 3:43 PM EST us Generic External Data Provider LAB BLOOD ORDERAB LES Final Result [facility] [address] [place] [phone] * (ABNORMAL) POCT HGB A1C (09/22/2024 2:39 PM EDT) Hemoglobin A1C 8.8(A) 4.0 - 6.0 % QC Media Lot # [id number] Lot# Expiration Date 048 Blood 09/22/2024 2:39 PM EDT us Kathy Villafana MD POINT OF CARE TEST ENTER/EDIT ORDERABLES Final Result * (ABNORMAL) Lipid Panel, Standard (02/20/2024 3:00 PM EDT) Triglycerides 186(H) <150 mg/dL [facility] Comment:Desirable Triglyceri de: less than 150 mg/dLBorderline High Triglyceride 150-199 mg/dLHigh Triglyceride: 200-499 mg/dLVery High Triglyceride: greater than or equal to 5OO mg/dL Cholesterol 159 <200 mg/dL [facility] Comment:Desirable Cholestero l: less than 200 mg/dLBorderline High Cholesterol: 200-239 mg/dLHigh Cholesterol: greater than 239 mg/dL LDL Cholesterol Calculated 78 <100 mg/dL [facility] Comment:Desirable LDL: less than 100 mg/dLNear Optimal/Above Optimal LDL: 110- 129 mg/dLBorderline High LDL: 130-159 mg/dLHigh LDL: 160-189 mg/dLVery High LDL: greater than or equal to 190 mg/dL HDL Cholesterol 44 >40 mg/dL [facility] Comment:Desirable HDL: great er than 40 mg/dL Note: This HDL assay may give artificially low results in patients with liver disease. Blood Venous blood specimen / Unknown 02/20/2024 3:00 PM EDT 02/20/2024 4:04 PM EDT us Kathy Villafana MD LAB BLOOD ORDERABLES Final Res ult [facility] [address] [place], [place] [phone] from Last 3 Months or Most Recently Relevant to Health Maintenance Insurance [facility] Advance Directives Documents on File Type Date Recorded Patient Heat Treat Operator Expl anation Advance Directives and Livin g Will 06/28/2023 Health Care Proxy Care Teams Latex Foam Worker Relationship Specialty Start Date End Date Kathy Villafana MD [address] [place] [phone] PCP - General Family Medicine 08/05/21 [facility] 12/04/24 [facility] 01/15/25
--- OUTSIDE RECORDS SUMMARY | 2025-03-07 16:35 | XMS_ITS | Encounter Summary ---
Author Organization [employer] Address [address] [facility] 7t [place] [address] Care Team Providers Care Manager Talent Management Name Role Phone Kathy Villafana MD Primary Care Provider [phone] Encounter Details Date Type Department Care Team (Late st Contact Info) Description 11/28/2023 Orders Only [facility] [address] [place], [place] [phone] Kathy Villafana MD 230 [place], [place] [phone] Social History Tobacco Use Types Packs/Day Years [...] Description 05/11/2025 3:45 PM EDT Office Visit [facility] [address] [place] [address] Kathy Villafana MD 230 [place] [address] documented as of this encounter Visit Diagnoses Not on filedocumented in this encounter Additional Health Concerns Assessment Noted Time PHQ-9 Depression Total Score: 0 01/22/20 23 3:42 PM EST documented as of this encounter Care Teams Manager Talent Management Relationship Specialty Start Date End Date Kathy Villafana MD 230 [place] [address] PCP - General Family Medicine 08/05/21 [facility] 12/04/24 Corinne BROOKSA 01/15/25 documented as of this encounter
--- OUTSIDE RECORDS SUMMARY | 2025-03-07 16:35 | XMS_ITS | Encounter Summary ---
Author Organization [employer] [facility] Address 75 [facility] 7t [place] [address] Care Team Providers Care Information Engineer Name Role Phone Kathy Villafana MD Primary Care Provider [phone] Reason for Visit * Reason Comments Med Refill Encounter Details Date Type Department Care Team (Late Contact Info) Description 12/01/2022 Refill [facility] [address] [place], [place] [phone] Kathy Villafana MD [address] [place] [address] [phone] Type 2 diabetes mellitus with hyperglycemia, with long-term current use of insulin (CMS/[facility]) Social History Tobacco Use Types [...] 3:45 PM EDT Office Visit [facility] [address] [place] [address] [phone] Kathy Villafana MD 230 [place], [place] [phone] documented as of this encounter Visit Diagnoses Diagnosis Type 2 diabetes mellitus with hyperglycemia, with long-term current use of insulin (CMS/HCC) documented in this encounter Care Teams Information Engineer Relationship Specialty Start Date End Date Kathy Villafana MD 230 [place] [address] PCP - General Family Medicine 08/05/21 [facility] 12/04/24 Corinne A 01/15/25 documented as of this encounter
--- OUTSIDE RECORDS SUMMARY | 2025-03-07 16:35 | XMS_ITS | Clinical Summary ---
Author Organization [facility] Address [address] [address] Care Team Providers Care Monogram And Letter Paster Name Role Phone Kathy Villafana MD Primary Care Provider [phone] Medications pantoprazole (PROTONIX) 40 MG EC tablet [...] Due Date Last Done Comments Pneumococcal Vaccine: 50+ Years (1 of 2 - PCV) 1951 Diabetes: Ophthalmology Exam 01/10/2023 Diabetes: Pedal Pulse Checked 01/10/2023 Diabetes: Sensory Foot Exam 01/10/2023 Diabetes: Visual Foot Exam 01/10/2023 Diabetes: Hemoglobin A1C 12/23/202409/22/ 024, 02/20/2024, 10/08/2023, Additional history exists Influenza Vaccine (Season Ended) 2025 Hepatitis B Vaccine Aged Out No longe r eligible based on patient's age to complete this topic Insurance [facility] ([id number]) KENJI AUGUSTINE [id number] [facility] ([id number]) KENJI AUGUSTINE [id number] Care Teams Monogram And Letter Paster Relationship Specialty Start Date End Date Kathy Villafana MD PCP - General Insurance Auditor 10/13/21
--- OUTSIDE RECORDS SUMMARY | 2025-03-07 16:35 | XMS_ITS | Encounter Summary ---
Author Organization [employer] Address 75 [facility] 7t [place] [address] Care Team Providers Care Competitive Shopper Name Role Phone Kathy Villafana MD Primary Care Provider [phone] Reason for Visit * Reason Onset Date Comments triage 12/06/2022 Encounter Details Date Type Department Care Team (Late st Contact Info) Description 12/06/2022 Telephone [facility] 230 [place], [place] [phone] Kathy Villafana MD 230 [place], [place] [phone] triage Social History Tobacco Use Types Packs/Day [...] No answer LVM to return call to [facility] triage line. * Telephone Encounter - Abhishek Herman - 12/06/2022 2:25 PM EST Symptom: Constipation Outcome: Schedule an appointment to be seen within 24 hours Reason: No high acuity concerns reported by caller The caller accepted this outcome speaks bulgarian documented in this encounter Plan of Treatment Upcoming Encounters Date Type Department Care Team (Late st Contact Info) Description 05/11/2025 3:45 PM EDT Office Visit [facility] 230 [place] [address] Kathy Villafana MD 230 [place] [address] documented as of this encounter Visit Diagnoses Not on filedocumented in this encounter Care Teams Competitive Shopper Relationship Specialty Start Date End Date Kathy Villafana MD 230 [place], [place] [phone] PCP - General Family Medicine 08/05/21 [facility] 12/04/24 Corinne [facility] 01/15/25 documented as of this encounter
--- OUTSIDE RECORDS SUMMARY | 2025-03-07 16:35 | XMS_ITS | Encounter Summary ---
Author Organization [employer] [facility] Address [address] [place] [address] 7t [place] [address] Care Team Providers Care Reinforcing Steel Worker Name Role Phone Kathy Villafana MD Primary Care Provider [phone] Reason for Visit * Reason Comments Med Refill Encounter Details Date Type Department Care Team (Late st Contact Info) Description 08/18/2023 Refill [facility] [address] [place] [address] [phone] Kathy Villafana MD [address] [place] [address] [phone] Social History Tobacco Use Types Packs/Day Years [...] Description 05/11/2025 3:45 PM EDT Office Visit [facility] [address] [place] [address] [phone] Kathy Villafana MD [address] [place] [address] [phone] documented as of this encounter Visit Diagnoses Not on filedocumented in this encounter Additional Health Concerns Assessment Noted Time PHQ-9 Depression Total Score: 0 01/22/20 23 3:42 PM EST documented as of this encounter Care Teams Reinforcing Steel Worker Relationship Specialty Start Date End Date Kathy Villafana MD 230 [place] [address] PCP - General Family Medicine 08/05/21 [facility] 12/04/24 Corinne [facility] 01/15/25 documented as of this encounter
--- OUTSIDE RECORDS SUMMARY | 2025-03-07 16:35 | XMS_ITS | Encounter Summary ---
Author Organization [employer] Address [address] [facility] [address] 7t [place] [address] Care Team Providers Care Curriculum Consultant Name Role Phone Kathy Villafana MD Primary Care Provider [phone] Reason for Visit * Reason Comments Med Refill Encounter Details Date Type Department Care Team ([facility] st Contact Info) Description 11/18/2023 Refill [facility] 230 [place], [place] [phone] Kathy Villafana MD 230 [place], [place] [phone] Type 2 diabetes mellitus with hyperglycemia, with long-term current use of insulin ([facility]) Social History Tobacco Use Types [...] Description 05/11/2025 3:45 PM EDT Office Visit [facility] [address] [place] [address] Kathy Villafana MD [address] [place] [address] documented as of this encounter Visit Diagnoses Diagnosis Type 2 diabetes mellitus with hyperglycemia, with long-term current use of insulin ([facility]) documented in this encounter Additional Health Concerns Assessment Noted Time PHQ-9 Depression Total Score: 0 01/22/20 23 3:42 PM EST documented as of this encounter Care Teams Curriculum Consultant Relationship Specialty Start Date End Date Kathy Villafana MD [address] [place] [address] PCP - General Family Medicine 08/05/21 [facility] 12/04/24 Corinne [facility] 01/15/25 documented as of this encounter
--- OUTSIDE RECORDS SUMMARY | 2025-03-07 16:35 | XMS_ITS | Encounter Summary ---
Author Organization [facility] Address [address] [place] [address] Phone Care Team Providers Care Learning Manager Name Role Phone Kathy Villafana MD Primary Care Provider [phone] Reason for Visit * Reason Comments Med Refill Encounter Details Date Type Department Care Team (Late st Contact Info) Description 07/14/2022 Refill [facility] [address] [place] [phone] Salty Kim, DO [address] [place] [address] Social History Tobacco Use Types Packs/Day Years [...] on filedocumented in this encounter Care Teams Learning Manager Relationship Specialty Start Date End Date Kathy Villafana MD PCP - General Python Architect 10/13/21 documented as of this encounter
--- OUTSIDE RECORDS SUMMARY | 2025-03-07 16:35 | XMS_ITS | Encounter Summary ---
Author Organization [employer] Address [address] [facility] [address] 7t [place] [address] Care Team Providers Care Supervisor Mixing Name Role Phone Kathy Villafana MD Primary Care Provider [phone] Reason for Visit * Reason Comments Med Refill Encounter Details Date Type Department Care Team ([facility] st Contact Info) Description 11/28/2023 Refill [facility] 230 [place], [place] [phone] Kathy Villafana MD [address] [place], [place] [phone] Social History Tobacco Use Types Packs/Day Years [...] Visit [facility] [address] [place] [address] Kathy Villafana MD [address] [place] [address] documented as of this encounter Visit Diagnoses Not on filedocumented in this encounter Additional Health Concerns Assessment Noted Time PHQ-9 Depression Total Score: 0 01/22/20 23 3:42 PM EST documented as of this encounter Care Teams Supervisor Mixing Relationship Specialty Start Date End Date Kathy Villafana MD [address] [place] [address] PCP - General Family Medicine 08/05/21 [facility] 12/04/24 Corinne BROOKSA 01/15/25 documented as of this encounter
--- OUTSIDE RECORDS SUMMARY | 2025-03-07 16:35 | XMS_ITS | Encounter Summary ---
Author Organization [employer] Address [address] [facility] [address]t [place] [address] Care Team Providers Care Sprinkling System Installer Name Role Phone Kathy Villafana MD Primary Care Provider [phone] Encounter Details Date Type Department Care Team (Late st Contact Info) Description 12/20/2023 Abstract [facility] 230 [place], [place] [phone] Kathy Villafana MD 230 [place], [place] [phone] Social History Tobacco Use Types Packs/Day Years [...] Description 05/11/2025 3:45 PM EDT Office Visit [facility] [address] [place] [address] Kathy Villafana MD 230 [place] [address] documented as of this encounter Visit Diagnoses Not on filedocumented in this encounter Additional Health Concerns Assessment Noted Time PHQ-9 Depression Total Score: 0 01/22/20 23 3:42 PM EST documented as of this encounter Care Teams Sprinkling System Installer Relationship Specialty Start Date End Date Kathy Villafana MD 230 [place] [address] PCP - General Family Medicine 08/05/21 [facility] 12/04/24 Corinne BROOKSA 01/15/25 documented as of this encounter
--- OUTSIDE RECORDS SUMMARY | 2025-03-07 16:35 | XMS_ITS | Encounter Summary ---
Author Organization [employer] Address [address] [facility] [address] 7t [place] [address] Care Team Providers Care Healthcare Project Manager Name Role Phone Kathy Villafana MD Primary Care Provider [phone] Reason for Visit * Reason Onset Date Comments FYI 2025 Encounter Details Date Type Department Care Team ([facility] st Contact Info) Description 2025 Telephone [facility] 230 [place], [place] [phone] Kathy Villafana MD 230 [place], [place] [phone] FYI Social History Tobacco Use Types Packs/Day Years [...] encounter Miscellaneous Notes * Telephone Encounter - Della Pruitt RN - 2025 4:23 PM EDT Noted * Telephone Encounter - Be Colon - 2025 4:09 PM EDT TC from [facility] with Corinne BROOKSA reports received a referral to start patient on nursing services. Corinne [facility]NA went to visit patient today and did not answer door. They attempted to call patient a few times and his emergency contacts and no answer. They state will try again this week and if unsuccessful pt would have to get re-referred documented in this encounter Plan of Treatment Upcoming Encounters Date Type Department Care Team (Late st Contact Info) Description 05/11/2025 3:45 PM EDT Office Visit [facility] 230 [place] [address] Kathy Villafana MD 230 [place] [address] documented as of this encounter Visit Diagnoses Not on filedocumented in this encounter Additional Health Concerns Assessment Noted Time PHQ-9 Depression Total Score: 0 02/20/20 24 2:34 PM EDT documented as of this encounter Care Teams Healthcare Project Manager Relationship Specialty Start Date End Date Kathy Villafana MD 230 [facility] [place] [address] PCP - General Family Medicine 08/05/21 [facility] 12/04/24 Corinne HOOKS 01/15/25 documented as of this encounter
--- OUTSIDE RECORDS SUMMARY | 2025-03-07 16:35 | XMS_ITS | Encounter Summary ---
Author Organization [employer] Address 75 [facility] 7t [place] [address] Care Team Providers Care Upholstery Trimmer Name Role Phone Kathy Villafana MD Primary Care Provider [phone] Encounter Details Date Type Department Care Team (Late st Contact Info) Description 11/17/2022 Orders Only [facility] [address] [place] [address] Mary Ann Skaggs LPN Social History Tobacco [...] Description 05/11/2025 3:45 PM EDT Office Visit [facility] 230 [place] [address] Kathy Villafana MD 230 [place] [address] documented as of this encounter Visit Diagnoses Not on filedocumented in this encounter Care Teams Upholstery Trimmer Relationship Specialty Start Date End Date Kathy Villafana MD 230 [place] [address] PCP - General Family Medicine 08/05/21 [facility] 12/04/24 [facility] documented as of this encounter
--- OUTSIDE RECORDS SUMMARY | 2025-03-07 16:35 | XMS_ITS | Encounter Summary ---
Author Organization [employer] Address [address] [facility] [address] 7t [place] [address] Care Team Providers Care Research Professor Of Biostatistics Name Role Phone Kathy Villafana MD Primary Care Provider [phone] Reason for Visit * Reason Onset Date Comments Hospital Follow-up 06/05/2024 Encounter Details Date Type Department Care Team ([facility] st Contact Info) Description 06/05/2024 Telephone [facility] 230 [place], [place] [phone] Kathy Villafana MD 230 [place], [place] [phone] Hospital Follow-up Social History Tobacco Use Types [...] from pt requesting a HDF appt. Hospital: [facility] Date of admission: 05/19 Discharge date: 05/21 Diagnosed: Fever and swelling documented in this encounter Plan of Treatment Upcoming Encounters Date Type Department Care Team (Late st Contact Info) Description 05/11/2025 3:45 PM EDT Office Visit [facility] [address] [place] [address] Kathy Villafana MD [address] [place] [address] documented as of this encounter Visit Diagnoses Not on filedocumented in this encounter Additional Health Concerns Assessment Noted Time PHQ-9 Depression Total Score: 0 02/20/20 24 2:34 PM EDT documented as of this encounter Care Teams Research Professor Of Biostatistics Relationship Specialty Start Date End Date Kathy Villafana MD [address] [place] [address] PCP - General Family Medicine 08/05/21 [facility] 12/04/24 Corinne [facility] 01/15/25 documented as of this encounter
--- OUTSIDE RECORDS SUMMARY | 2025-03-07 16:35 | XMS_ITS | Encounter Summary ---
Author Organization [employer] Address [address] [facility] [address] 7t [place] [address] Care Team Providers Care Cotton Picking Machine Operator Name Role Phone Kathy Villafana MD Primary Care Provider [phone] Encounter Details Date Type Department Care Team (Late st Contact Info) Description 09/24/2023 Abstract [facility] 230 [place], [place] [phone] Kathy Villafana MD 230 [place], [place] [phone] Social History Tobacco Use Types Packs/Day Years [...] 3:45 PM EDT Office Visit [facility] 230 [place] [address] Kathy Villafana MD 230 [place] [address] documented as of this encounter Visit Diagnoses Not on filedocumented in this encounter Additional Health Concerns Assessment Noted Time PHQ-9 Depression Total Score: 0 01/22/20 23 3:42 PM EST documented as of this encounter Care Teams Cotton Picking Machine Operator Relationship Specialty Start Date End Date Kathy Villafana MD 230 [place] [address] PCP - General Family Medicine 08/05/21 [facility] 12/04/24 Corinne BROOKSA 01/15/25 documented as of this encounter
--- OUTSIDE RECORDS SUMMARY | 2025-03-07 16:35 | XMS_ITS | Encounter Summary ---
Author Organization [employer] Address [address] [facility] [address] 7t [place] [address] Care Team Providers Care Ceramic Engineering Professor Name Role Phone Kathy Villafana MD Primary Care Provider [phone] Encounter Details Date Type Department Care Team (Late st Contact Info) Description 11/14/2023 Orders Only [facility] 230 [place], [place] [phone] Kathy Villafana MD 230 [place], [place] [phone] Social History Tobacco Use Types Packs/Day Years [...] 3:45 PM EDT Office Visit [facility] 230 [place] [address] Kathy Villafana MD 230 [place] [address] documented as of this encounter Visit Diagnoses Not on filedocumented in this encounter Additional Health Concerns Assessment Noted Time PHQ-9 Depression Total Score: 0 01/22/20 23 3:42 PM EST documented as of this encounter Care Teams Ceramic Engineering Professor Relationship Specialty Start Date End Date Kathy Villafana MD 230 [place] [address] PCP - General Family Medicine 08/05/21 [facility] 12/04/24 Corinne BROOKSA 01/15/25 documented as of this encounter
--- OUTSIDE RECORDS SUMMARY | 2025-03-07 16:35 | XMS_ITS | Encounter Summary ---
Author Organization [employer] Address [address] [facility] [address] [place] [address] Care Team Providers Care Car Varnisher Name Role Phone Kathy Villafana MD Primary Care Provider Reason for Visit * Reason Onset Date Comments Hospital Follow-up 12/03/2024 Encounter Details Date Type Department Care Team ([facility] st Contact Info) Description 12/03/2024 Telephone [facility] 230 [place], [place] [phone] Kathy Villafana MD 230 [place], [place] [phone] Hospital Follow-up Social History Tobacco Use Types [...] from pt requesting a HDF appt. Hospital: [facility] Date of admission: 11/25/2024 Discharge date: 12/03/2024 Diagnosed: Heart Attack *Send message to [facility] documented in this encounter Plan of Treatment Upcoming Encounters Date Type Department Care Team (Late st Contact Info) Description 05/11/2025 3:45 PM EDT Office Visit [facility] [address] [place] [address] Kathy Villafana MD [address] [place] [address] documented as of this encounter Visit Diagnoses Not on filedocumented in this encounter Additional Health Concerns Assessment Noted Time PHQ-9 Depression Total Score: 0 02/20/20 24 2:34 PM EDT documented as of this encounter Care Teams Car Varnisher Relationship Specialty Start Date End Date Kathy Villafana MD [address] [place] [address] PCP - General Family Medicine 08/05/21 [facility] 12/04/24 Corinne A 01/15/25 documented as of this encounter
--- OUTSIDE RECORDS SUMMARY | 2025-03-07 16:35 | XMS_ITS | Encounter Summary ---
Author Organization [employer] Address [address] [facility] [address] 7[address] [place] [address] Care Team Providers Care Quality Assurance Analyst Name Role Phone Kathy Villafana MD Primary Care Provider [phone] Reason for Visit * Reason Comments Med Refill Encounter Details Date Type Department Care Team (Late st Contact Info) Description 03/07/2025 Refill [facility] [address] [place], [place] [phone] Kathy Villafana MD 230 [place], [place] [phone] Atrial fibrillation, unspecified type (CMS/HCC) Social History Tobacco Use Types Packs/Day Years [...] [facility] 230 [place] [address] Kathy Villafana MD 230 [place] [address] documented as of this encounter Visit Diagnoses Diagnosis Atrial fibrillation, unspecified type (CMS/HCC) documented in this encounter Additional Health Concerns Assessment Noted Time PHQ-9 Depression Total Score: 0 02/20/20 24 2:34 PM EDT documented as of this encounter Care Teams Quality Assurance Analyst Relationship Specialty Start Date End Date Kathy Villafana MD [address] [place] [address] PCP - General Family Medicine 08/05/21 [facility] 12/04/24 Corinne [facility] 01/15/25 documented as of this encounter
--- OUTSIDE RECORDS SUMMARY | 2025-03-07 16:35 | XMS_ITS | Encounter Summary ---
Author Organization [employer] Address [address] [facility] [address] [place] [address] Care Team Providers Care Comfort Station Attendant Name Role Phone Kathy Villafana MD Primary Care Provider [phone] Encounter Details Date Type Department Care Team (Late st Contact Info) Description 09/18/2023 Abstract [facility] 230 [place], [place] [phone] Kathy Villafana MD 230 [place], [place] [phone] Social History Tobacco Use Types Packs/Day Years [...] Description 05/11/2025 3:45 PM EDT Office Visit [facility] 230 [place] [address] Kathy Villafana MD 230 [place] [address] documented as of this encounter Visit Diagnoses Not on filedocumented in this encounter Additional Health Concerns Assessment Noted Time PHQ-9 Depression Total Score: 0 01/22/20 23 3:42 PM EST documented as of this encounter Care Teams Comfort Station Attendant Relationship Specialty Start Date End Date Kathy Villafana MD 230 [place] [address] PCP - General Family Medicine 08/05/21 [facility] 12/04/24 Corinne BROOKSA 01/15/25 documented as of this encounter
[2025-03-07 16:41] LABS: MANUAL DIFF FLAG NO
[2025-03-07 16:42] LABS: Basophils Absolute Auto 0.1 X10*3/uL (0.0-0.2); Basophils Percent Auto 0.6 % (0-2); Eosinophils Absolute Auto 0.1 X10*3/uL (0.0-0.4); Eosinophils Percent Auto 1.4 % (0-4); Hematocrit 33.7 % (42.0-52.0); Hemoglobin 10.8 g/dl (14.0-18.0); Imm Gran Abs Auto 0.03 X10*3/uL (0.00-0.03); Imm Gran Pct Auto 0.3 % (0.0-0.4); Lymphocytes Absolute Auto 1.3 X10*3/uL (1.2-4.9); Lymphocytes Percent Auto 12.4 % (20-40); Mean Corpuscular Hemoglobin 28.3 pg (27.0-33.0); Mean Corpuscular Volume 88.5 fL (80.0-98.0); Mean Platelet Volume 11.2 fL (9.4-12.4); Monocytes Absolute Auto 0.9 X10*3/uL (0.1-1.2); Neutrophils Absolute Auto 7.7 x10*3/uL (2.0-8.3); Neutrophils Percent Auto 76.3 % (45-73); Platelet Count 182 X10*3/uL (160-400); Red Blood Count 3.81 X10*6/uL (4.60-5.80); Red Cell Distribution Width 15.9 % (11.0-16.0); White Blood Count 10.1 X10*3/uL (4.8-10.8)
--- NOTE | 2025-03-07 16:58 | PC.NURSE ---
this RN called to room by family member (son) who appeared agitated, this RN accompanied by DOMINGO Chavez and PCT Jalyn. pts son began explaining to this RN his interaction with PCT Iman stating that they were trying to explain that their father (the pt) is a hard stick and that she better be good or she could get someone else . educated family and pt that the PCT here are extensively trained in phlebotomy and have other skills set in place to ensure the health and safety of the family. the pts son continued to be verbally aggressive, making demands. Again, this RN educated pts son that obtaining blood work is a vital part of all ED work up and that it is necessary for the ED to attempt as well as to obtain further diagnostics such as EKG and vitals. family appeared to have de-escalate through further education. information architect Seamus made aware of families verbal altercation with PCT Iman. family allowed DOMINGO Chavez to obtain blood work at this time.
[2025-03-07 17:00] LABS: Ethanol < 10 mg/dL
[2025-03-07 17:00] LABS: Alanine Aminotransferase 16 U/L (0-40); Albumin Level 3.8 g/dL (3.5-5.0); Alkaline Phosphatase 94 U/L (39-117); Anion Gap 22 (12-20); Aspartate Amino Transferase 41 U/L (5-37); Bilirubin Total 0.5 mg/dL (0.0-1.0); Blood Urea Nitrogen 32 mg/dL (9-16); Carbon Dioxide 23 mmol/L (22-29); Chloride 98 mmol/L (96-108); Creatinine Clr Calc Pharmacy 30.3; Estimated Glomerular Filt Rate 28; Glucose Random 275 mg/dL (60-115); Lipase 12 U/L (8-78); Magnesium 2.5 mg/dL (1.6-2.6); Potassium 4.9 mmol/L (3.3-5.1); Sodium 138 mmol/L (135-145); Total Protein 7.7 g/dL (6.5-8.0)
[2025-03-07 17:04] LABS: Troponin-I High Sensitivity 5.3 ng/L (<3.5-35.0)
[2025-03-07 17:43] VITALS: BP 118/55; PULSE 63; RESP 16; TEMP 36.8; O2SAT 97
--- NOTE | 2025-03-07 18:56 | PC.NURSE ---
assumed care of patient, patient family out to nursing station multiple times asking about ct results. educated patient once we get results provider will review and update on plan of care
[2025-03-07 19:15] VITALS: BP 122/60; PULSE 73; RESP 16; TEMP 36.4; O2SAT 96
[2025-03-07] MEDS: Lactated Ringers 1,000 ML 999 ML IV (19:17)
[2025-03-07 20:31] VITALS: BP 112/47; PULSE 80; RESP 16; TEMP 36.6; O2SAT 96
[2025-03-07 20:34] LABS: Appearance Urine Clear; Color Urine Yellow; Glucose Urine UA >=1000 mg/dL (Negative); Leukocyte Esterase Urine Negative (Negative); Nitrite Urine Negative (Negative); UMIC TRIGGER UACC YES; Urine Blood Negative (Negative); Urine Ketones Negative (Negative); Urine Protein Negative (Neg-Trace)
[2025-03-07 20:39] LABS: Bacteria Urine None Seen (None Seen); Hyaline Casts Urine 0-2 /LPF (0-2); RBC Urine 0-2 /HPF (0-2); Squamous Epithelial Cell Urine 0-2 /HPF (0-2); WBC Urine 0-5 /HPF (0-5)
--- NOTE | 2025-03-07 22:40 | P.HPHOSP_ITS ---
History of Present Illness Date of Service: 03/07/25 Attending physician on admission: Luis Alfredo Clark Chief Complaint: fall on eliquis Patient is an 80-year-old Latvian-speaking male with a past medical history significant for recent pneumonia, AFib on Eliquis, hypertension, T2DM, gout, hyperlipidemia, HFpEF, dementia, neuropathy, CAD, GERD, BPH, anemia and chronic respiratory failure on oxygen as needed, who presented to the ED today after a fall. The patient was lying in bed in his family members heard a thud, he was found on the ground and they called EMS as he is on Eliquis. The patient states that he did not have any symptoms precipitating his fall including chest pain, shortness of breath or seizure-like activity. He denies loss of consciousness or head strike. The patient's son Hadley and daughter in law Migdalia provide 24 hour care for him. He reported that he woke up this morning, ate breakfast and took his medications and was lying in bed. The son went downstairs and the son's daughter came done there was and said that the patient was lying on the bedroom floor. This fall was unwitnessed, however the patient feels confident that there were no precipitating events and he did not lose consciousness. He did report neck pain to the ED provider but denies this when asked by myself. He was recently admitted for community-acquired pneumonia and JAMES with weakness and hypomagnesemia. He has no infectious symptoms today including fever, chills, nausea, vomiting, diarrhea, cough or upper respiratory symptoms. He denies any urinary symptoms including frequency, urgency or dysuria. Review of Systems 2 Constitutional: Constitutional: Denies body ache(s), Denies chills, Denies fatigue, Denies fever(s) and Denies headache(s) Eyes: Eyes: Denies change in vision and Denies photophobia ENT: Denies headache(s), Denies nasal congestion, Denies nasal discharge and Denies sore throat Cardiovascular: Cardiovascular: Denies chest pain, Denies rapid heart rate, Denies leg edema, Denies lightheadedness and Denies dyspnea Respiratory: Respiratory: Denies chest congestion, Denies cough, Denies dyspnea and Denies wheezing Gastrointestinal: Gastrointestinal: Denies abdominal pain, Denies diarrhea, Denies nausea and Denies vomiting Genitourinary: Genitourinary: Denies difficulty urinating, Denies dysuria, Denies urinary frequency and Denies urinary urgency Musculoskeletal: Musculoskeletal: Denies back pain and Denies myalgias Integumentary/Breasts: Skin/Breast: Denies rash Neurologic: Denies confusion and Denies headache(s) Psychiatric: Psychiatric: Denies confusion Endocrine: Endocrine: Denies fatigue Hematologic/Lymphatic: Hematologic/Lymphatic: Denies easy bleeding and Denies easy bruising Allergic/Immunologic: Allergic/Immunologic: Denies wheezing [facility] Medical History (Updated 03/07/25 @ 19:24 by Subhash Corey MD) CHF exacerbation Chronic atrial fibrillation Diabetes mellitus Alzheimer's dementia Acute hypoxic respiratory failure Pneumonia Pneumonia Acute respiratory failure Hypoxia CAD (coronary artery disease) Trash foot Diabetic foot infection Heart failure with preserved ejection fraction HLD (hyperlipidemia) Atrial fibrillation NSTEMI (non-ST elevated myocardial infarction) Kidney failure Diabetes HTN (hypertension) Family History Father No problems noted. Mother No problems noted. Surgical History No pertinent past surgical history Social History Household Members: Family Household Members Other:: sons and daughter in law Housing: House Do you presently have visiting nurse or other home services: Yes Unable to assess alcohol history related to: Unable to respond Alcohol intake: never Patient Tobacco Use Status: Never used Tobacco Smoked in Last 30 Days: No e-Cigarette/Vaping Use: Never Used Second Hand Smoke Exposure: No Use of substances other than those prescribed or required for medical reasons: No Advance Directives: Yes Advance Directives on File: Yes Advance Directives Date on File: 09/06/21 Do you have a plan to hurt others: No Plan service: No Current occupational status: retired Narrative: No smoking, alcohol or drug use Meds Allergies Allergy/AdvReac Type Severity Reaction Status Date / Time No Known Allergies Allergy Verified 03/07/25 15:35 Active Medications: Current Medications Dextrose (Dextrose 50 % 25 Gm/50 Ml Syringe) 25 gm IVPUSH Q15M PRN; Protocol PRN Reason: per Hypoglycemia Standing Ord. Glucose (Glucose Gel 15 Gm Gel..Gram.) 15 gm PO Q15M PRN; Protocol PRN Reason: per Hypoglycemia Standing Ord. Insulin Human Lispro (Insulin Lispro 100 Unit/Ml 3 Ml Vial) 0 unit SUBCUT QIDACHS [facility]; Protocol Home Medications ?Medication ?Instructions ?Recorded ?Confirmed ?Last Taken ?Type apixaban 5 mg tablet (Eliquis) 5 mg PO BID 09/05/21 02/27/25 02/27/25 History donepezil 10 mg tablet 1 tab PO BEDTIME 09/05/21 02/27/25 02/27/25 History rjuyuunh-dpv-lxsff acid 0.4 1 tab PO DAILY 09/05/21 02/27/25 02/27/25 History mg-lycopene 300 mcg-lutein 250 mcg tablet (CertaVite Senior) allopurinol 100 mg tablet 50 mg PO DAILY gout pain 10/07/21 02/27/25 02/27/25 History insulin syringe-needle U-100 1 mL #10 ea 12/22/21 05/08/22 02/27/25 History 31 gauge x 16 memantine 10 mg tablet 10 mg PO BID 05/08/22 02/27/25 02/27/25 History metoprolol tartrate 100 mg tablet 100 mg PO BID 05/08/22 02/27/25 02/27/25 History cetirizine 10 mg tablet 10 mg PO DAILY congestion 08/17/23 02/27/25 02/27/25 History omeprazole 20 mg capsule,delayed 20 mg PO BID@0630,1630 05/17/24 02/27/25 02/27/25 History release sucralfate 1 gram tablet 1 g PO TIDAC 05/17/24 02/27/25 02/27/25 History magnesium oxide 250 mg PO DAILY 11/25/24 02/27/25 02/27/25 History insulin aspar prt-insulin aspart 76 unit subcut BIDWM 12/24/24 02/27/25 02/27/25 History 100 unit/mL (70-30) subcutaneous soln (Novolog Mix 70-30 U-100 Insuln) diphenhydramine HCl 25 mg tablet 12.5 mg PO BEDTIME PRN Allergy 01/08/25 02/27/25 02/27/25 History (Nell-Dryl) Symptoms dapagliflozin propanediol 5 mg 5 mg PO DAILY 02/27/25 02/27/25 02/27/25 History tablet (Farxiga) Physical Exam 2 Vital Signs and Narrative: Vital Signs: Last Vital Signs Temp 97.9 F 03/07/25 20:31 Pulse 80 03/07/25 20:31 Resp 16 03/07/25 20:31 BP 112/47 L 03/07/25 20:31 Pulse Ox 96 03/07/25 20:31 O2 Del Method Room Air 03/07/25 20:31 BMI result Body Mass Index 35.4 General: AOx3, no acute distress, 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 Motor grossly intact bilaterally Extremities: No lower extremity edema Psych: Appropriate affect Const: General: No confusion Orientation/consciousness: No confusion Eyes: Direct Ophthalmoscopy: No photophobia Neuro: General: No confusion Results Labs 03/07/25 16:37 03/07/25 16:38 Labs: Laboratory Results - last 24 hr 03/07/25 03/07/25 03/07/25 16:37 16:38 20:28 MCV 88.5 MCH 28.3 MCHC 32.0 RDW 15.9 Plt Count 182 MPV 11.2 Immature Gran % (Auto) 0.3 Neut % (Auto) 76.3 H Lymph % (Auto) 12.4 L [place] % (Auto) 9.0 Eos % (Auto) 1.4 Baso % (Auto) 0.6 Lymph # (Auto) 1.3 [place] # (Auto) 0.9 Eos # (Auto) 0.1 Baso # (Auto) 0.1 Abs Immat Gran (auto) 0.03 Absolute Neuts (auto) 7.7 Absolute Nucleated RBC 0.000 Nucleated RBC % (auto) 0.0 Anion Gap 22 H Estim Creat Clear Calc 30.3 Estimated GFR 28 Random Glucose 275 H Calcium 9.0 Magnesium 2.5 Total Bilirubin 0.5 AST 41 H ALT 16 Alkaline Phosphatase 94 Total Creatine Kinase 137 Total Protein 7.7 Albumin 3.8 Lipase 12 Urine Color Yellow Urine Appearance Clear Urine pH 7.0 Ur Specific [place] 1.020 Urine Protein Negative Urine Glucose (UA) >=1000 H Urine Ketones Negative Urine Blood Negative Urine Nitrite Negative Ur Leukocyte Esterase Negative Urine RBC 0-2 Urine WBC 0-5 Ur Squamous Epith Cells 0-2 Urine Bacteria None Seen Hyaline Casts 0-2 Ethyl Alcohol < 10 Assessment and Plan (1) Acute kidney injury superimposed on chronic kidney disease: Status: Acute (2) Fall: Qualifiers: Encounter type: initial encounter Qualified Code(s): W19.XXXA - Unspecified fall, initial encounter Status: Acute Plan Patient is an 80-year-old Latvian-speaking male with a past medical history significant for recent pneumonia, AFib on Eliquis, hypertension, gout, T2DM, hyperlipidemia, HFpEF, dementia, neuropathy, CAD, GERD, BPH, anemia and chronic respiratory failure on oxygen as needed, who presented to the ED today after a fall. 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 - creatinine 2.29, was 1.76 5 days ago - given 1 L LR in ED, hold further fluids due to CHF - avoid nephrotoxins - renal US - monitor BMP - consider neprhology consult if no improvement with AM labs chronic L pleural effusion - small left pleural effusion on CXR, chronic - no SOB, cough, or LE edema chronic persistent a fib - continue home meds, rate controlled HTN - continue home meds T2DM - sliding scale insulin - diabetic diet Gout - hold allopuroniol due to JAMES HLD - continue home meds Chronic HFpEF, no acute exacerbation dementia - continue home meds neuropathy - hold gabapentin due to JAMES chronic respiratory failure with hypoxia, no acute exacerbation - O2 PRN med rec not complete upon admission full code VTE prophy: moses Pt with JAMES on CKD requiring admission for at least 2 midnights stay for IV fluids, and monitoring. Quality Stroke Does the patient have a stroke diagnosis?: No VTE Prior VTE?: No VTE Risk Level:: Medical - moderate - high VTE Device Contraindication: Treatment Not Indicated VTE Drug Contraindication: N/A - Med Ordered
[2025-03-07] MEDS: 0.9 % Sodium Chloride Flush 3 ML SYRINGE IVFLUSH (23:20)
[2025-03-07 23:21] VITALS: BP 134/72; PULSE 72; RESP 14; TEMP 36.6; O2SAT 96
[2025-03-08] VITALS (11 sets, daily range): BP systolic 116–155; BP diastolic 53–85; PULSE 68–108; RESP 16–18; TEMP 36.2–36.7; O2SAT 93–97; BMI 36.9
[2025-03-08 06:39] LABS: Hematocrit 30.1 % (42.0-52.0); Hemoglobin 9.5 g/dl (14.0-18.0); Mean Corpuscular HGB Conc 31.6 g/dl (31.0-36.0); Mean Corpuscular Hemoglobin 27.9 pg (27.0-33.0); Mean Corpuscular Volume 88.5 fL (80.0-98.0); Mean Platelet Volume 11.7 fL (9.4-12.4); Platelet Count 184 X10*3/uL (160-400); Red Cell Distribution Width 15.8 % (11.0-16.0); White Blood Count 7.1 X10*3/uL (4.8-10.8)
[2025-03-08 06:58] LABS: Anion Gap 16 (12-20); Blood Urea Nitrogen 29 mg/dL (9-16); Calcium 8.7 mg/dL (8.4-10.2); Carbon Dioxide 28 mmol/L (22-29); Chloride 98 mmol/L (96-108); Estimated Glomerular Filt Rate 32; Glucose Random 348 mg/dL (60-115); Potassium 4.8 mmol/L (3.3-5.1); Sodium 137 mmol/L (135-145)
[2025-03-08 07:28] LABS: Glucose, Whole Blood 310 mg/dL (60-115)
[2025-03-08] MEDS: Insulin Lispro 100 UNIT/ML 3 ML VIAL SUBCUT ×4 (07:46→22:14)
[2025-03-08] MEDS: 0.9 % Sodium Chloride Flush 3 ML SYRINGE IVFLUSH ×3 (07:46→22:14)
--- NOTE | 2025-03-08 07:48 | PC.NURSE ---
Pt found climbing OOB; pt very unsteady on feet; redirected to stretcher, lights turned on, curtain opened and camera in place for pt safety
--- NOTE | 2025-03-08 08:49 | P.PNIM_ITS ---
Subjective Subjective Date of Service: 03/09/25 Review of Systems Follow up fall, james sitting up in chair Physical Exam 2 Vital Signs: Vital Signs: Last Vital Signs Temp 97.2 F 03/08/25 08:00 Pulse 71 03/08/25 08:00 Resp 18 03/08/25 08:00 BP 127/60 03/08/25 08:00 Pulse Ox 93 03/08/25 08:00 O2 Del Method Room Air 03/08/25 08:00 BMI result Body Mass Index 35.4 Appearing in no acute distress head is normocephalic atraumatic eyes pupils are PERRLA sclera is anicteric mouth throat mucous membranes are intact and moist neck is supple no lymphadenopathy, no JVD noted lung sounds are clear to auscultation heart regular rate rhythm, clear S1, S2 positive bowel sounds, abdomen is soft, nontender neuro patient is alert x3, no focal deficits Objective Data Active Medications Acetaminophen (Acetaminophen 325 Mg Tablet) 975 mg PO Q6H PRN PRN Reason: Pain, Mild 1-3,fever,headache Calcium Carbonate (Calcium Carbonate 750 Mg Tab.Chew) 750 mg PO Q4H PRN PRN Reason: Heartburn Dextrose (Dextrose 50 % 25 Gm/50 Ml Syringe) 25 gm IVPUSH Q15M PRN; Protocol PRN Reason: per Hypoglycemia Standing Ord. Glucose (Glucose Gel 15 Gm Gel..Gram.) 15 gm PO Q15M PRN; Protocol PRN Reason: per Hypoglycemia Standing Ord. Insulin Human Lispro (Insulin Lispro 100 Unit/Ml 3 Ml Vial) 0 unit SUBCUT QIDAS [facility]; Protocol Last Admin: 03/08/25 07:46 Dose: 8 unit Documented By: SAULO Magnesium Hydroxide (Milk Of Magnesia 30 Ml Oral.Susp) 30 ml PO DAILY PRN PRN Reason: Constipation Melatonin (Melatonin 3 Mg Tablet) 6 mg PO BEDTIME PRN PRN Reason: Insomnia Ondansetron HCl (Ondansetron Hcl 4 Mg/2 Ml Vial) 4 mg IVPUSH Q8H PRN PRN Reason: Nausea and Vomiting Sodium Chloride (0.9 % Sodium Chloride Flush 3 Ml Syringe) 3 ml IVFSH [facility] Last Admin: 03/08/25 07:46 Dose: 3 ml Documented By: SAULO Labs 03/09/25 05:35 03/09/25 05:35 Labs: Laboratory Results - last 24 hr 03/07/25 03/07/25 03/07/25 16:37 16:38 20:28 MCV 88.5 MCH 28.3 MCHC 32.0 RDW 15.9 Plt Count 182 MPV 11.2 Immature Gran % (Auto) 0.3 Neut % (Auto) 76.3 H Lymph % (Auto) 12.4 L [place] % (Auto) 9.0 Eos % (Auto) 1.4 Baso % (Auto) 0.6 Lymph # (Auto) 1.3 [place] # (Auto) 0.9 Eos # (Auto) 0.1 Baso # (Auto) 0.1 Abs Immat Gran (auto) 0.03 Absolute Neuts (auto) 7.7 Absolute Nucleated RBC 0.000 Nucleated RBC % (auto) 0.0 Anion Gap 22 H Estim Creat Clear Calc 30.3 Estimated GFR 28 POC Glucose Random Glucose 275 H Calcium 9.0 Magnesium 2.5 Total Bilirubin 0.5 AST 41 H ALT 16 Alkaline Phosphatase 94 Total Creatine Kinase 137 Total Protein 7.7 Albumin 3.8 Lipase 12 Urine Color Yellow Urine Appearance Clear Urine pH 7.0 Ur Specific [place] 1.020 Urine Protein Negative Urine Glucose (UA) >=1000 H Urine Ketones Negative Urine Blood Negative Urine Nitrite Negative Ur Leukocyte Esterase Negative Urine RBC 0-2 Urine WBC 0-5 Ur Squamous Epith Cells 0-2 Urine Bacteria None Seen Hyaline Casts 0-2 Ethyl Alcohol < 10 03/08/25 03/08/25 06:12 07:23 MCV 88.5 MCH 27.9 MCHC 31.6 RDW 15.8 Plt Count 184 MPV 11.7 Immature Gran % (Auto) Neut % (Auto) Lymph % (Auto) [place] % (Auto) Eos % (Auto) Baso % (Auto) Lymph # (Auto) [place] # (Auto) Eos # (Auto) Baso # (Auto) Abs Immat Gran (auto) Absolute Neuts (auto) Absolute Nucleated RBC 0.000 Nucleated RBC % (auto) 0.0 Anion Gap 16 Estim Creat Clear Calc 34.0 Estimated GFR 32 POC Glucose 310 H Random Glucose 348 H Calcium 8.7 Magnesium Total Bilirubin AST ALT Alkaline Phosphatase Total Creatine Kinase Total Protein Albumin Lipase Urine Color Urine Appearance Urine pH Ur Specific [place] Urine Protein Urine Glucose (UA) Urine Ketones Urine Blood Urine Nitrite Ur Leukocyte Esterase Urine RBC Urine WBC Ur Squamous Epith Cells Urine Bacteria Hyaline Casts Ethyl Alcohol Assessment and Plan (1) Fall: Status: Acute Plan Patient is an 80-year-old Italian-speaking male with a past medical history significant for recent pneumonia, AFib on Eliquis, hypertension, gout, T2DM, hyperlipidemia, HFpEF, dementia, neuropathy, CAD, GERD, BPH, anemia and chronic respiratory failure on oxygen as needed, who presented to the ED today after a fall. 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 creatinine 2.04, was 1.76 5 days ago given 1 L LR in ED, hold further fluids due to CHF avoid nephrotoxins renal US monitor BMP consider neprhology consult if no improvement with AM labs chronic L pleural effusion small left pleural effusion on CXR, chronic no SOB, cough, or LE edema chronic persistent a fib continue home meds, rate controlled HTN continue home meds T2DM sliding scale insulin diabetic diet Gout hold allopuroniol due to JAMES HLD continue home meds Chronic HFpEF no acute exacerbation dementia continue home meds neuropathy hold gabapentin due to JAMES chronic respiratory failure with hypoxia, no acute exacerbation O2 PRN full code VTE prophy: eliquis Pt with JAMES on CKD requiring admission for at least 2 midnights stay for IV fluids, and monitoring. Quality Stroke Does the patient have a stroke diagnosis?: No VTE Prior VTE?: No VTE Risk Level:: Medical - moderate - high VTE Device Contraindication: Treatment Not Indicated VTE Drug Contraindication: N/A - Med Ordered
[2025-03-08 11:49] LABS: Glucose, Whole Blood 332 mg/dL (60-115)
--- NOTE | 2025-03-08 13:11 | PHA.MEDREC ---
Addendum entered by Blessing Barbour RPh 03/08/25 13:29: MED REC REVIEWED BY AMANUEL Original Note: Pharmacy Consult ? Medication Reconciliation Pharmacy has completed the medication reconciliation. Patient was DC'ed 03/02. Used DC papers and claims to confirm medications. Spoke with patients son over the phone with an tape transferrer to confirm the changes. He said patient started the antibiotics and said his gabapentin and bumetanide was decreased. He said everything else stayed the same. Son reports patient took medications the morning before he came to the hospital.
--- NOTE | 2025-03-08 16:16 | MHC.CM.PN ---
PT LIVES WITH HIS SON, BELTRAN, WHO PROVIDES 18/06 CARE FOR PT VALERY S/O ALSO LIVES IN THE HOME HE HAS HOME O2 ? YRN HCP ON FILE PCP: DANELLE REYES IMM DELIVERED DCP: [facility]
[2025-03-08 16:29] LABS: Glucose, Whole Blood 365 mg/dL (60-115)
--- NOTE | 2025-03-08 18:26 | PC.NURSE ---
Novolog brought to pharmacy to store. Papers in Physical chart.
[2025-03-08 20:24] LABS: Glucose, Whole Blood 308 mg/dL (60-115)
[2025-03-09 03:22] VITALS: BP 139/64; PULSE 106; RESP 18; TEMP 36.7; O2SAT 97
--- NOTE | 2025-03-09 05:53 | HO.SKINPHOTO ---
Location: Right Arm Category: Rash, patient scratched open Stage: Length: Width: Depth: cm Location: Category: Stage: Length: Width: Depth: cm Location: Category: Stage: Length: Width: Depth: cm Location: Category: Stage: Length: Width: Depth: cm Location: Category: Stage: Length: Width: Depth: cm Location: Category: Stage: Length: Width: Depth: cm
--- NOTE | 2025-03-09 06:21 | PC.NURSE ---
This AM a rash was noticed on patients R upper arm, patient had been scratching at this area and broke skin, pt has not recieved any recent medication at this time. picture taken and placed in skin note. doctor notified and asked for order of benadryl. Family called and notified.
[2025-03-09 06:23] LABS: Hematocrit 32.6 % (42.0-52.0); Hemoglobin 10.2 g/dl (14.0-18.0); Mean Corpuscular HGB Conc 31.3 g/dl (31.0-36.0); Mean Corpuscular Hemoglobin 28.3 pg (27.0-33.0); Mean Corpuscular Volume 90.6 fL (80.0-98.0); Mean Platelet Volume 12.1 fL (9.4-12.4); Platelet Count 169 X10*3/uL (160-400); Red Cell Distribution Width 15.7 % (11.0-16.0); White Blood Count 8.5 X10*3/uL (4.8-10.8)
[2025-03-09 06:33] LABS: Anion Gap 16 (12-20); Blood Urea Nitrogen 28 mg/dL (9-16); Calcium 8.8 mg/dL (8.4-10.2); Carbon Dioxide 24 mmol/L (22-29); Chloride 100 mmol/L (96-108); Estimated Glomerular Filt Rate 32; Glucose Random 307 mg/dL (60-115); Potassium 4.6 mmol/L (3.3-5.1); Sodium 135 mmol/L (135-145)
[2025-03-09] MEDS: Bumetanide 1 MG TABLET 2 MG PO (07:54)
[2025-03-09] MEDS: Apixaban 5 MG TABLET PO (07:54)
[2025-03-09] MEDS: allopurinoL 100 MG TABLET 50 MG PO (07:55)
[2025-03-09] MEDS: amLODIPine Besylate 2.5 MG TABLET PO (07:55)
[2025-03-09] MEDS: Aspirin 81 MG TAB.CHEW PO (07:55)
[2025-03-09 07:58] LABS: Glucose, Whole Blood 289 mg/dL (60-115)
[2025-03-09 08:00] VITALS: BP 151/69; PULSE 89; RESP 18; TEMP 36.6; O2SAT 94
[2025-03-09] MEDS: Sucralfate 1 GM TABLET PO ×2 (08:29→11:43)
[2025-03-09] MEDS: Hydrocortisone 1 % Cream 28.35 GM TUBE 1 APPL TOPICAL (08:29)
[2025-03-09] MEDS: Isosorbide Mononitrate 60 MG TAB.ER.24H PO (08:29)
[2025-03-09] MEDS: Empagliflozin 10 MG TABLET PO (08:29)
[2025-03-09] MEDS: Gabapentin 400 MG CAPSULE PO (08:29)
[2025-03-09] MEDS: Multivitamin TABLET 1 TAB PO (08:29)
[2025-03-09] MEDS: Loratadine 10 MG TABLET PO (08:30)
--- NOTE | 2025-03-09 08:31 | PM.DS ---
DS: Providers Provider Date of Service: 03/09/25 Date of admission: 03/07/25 22:41 Date of discharge: 03/09/25 Primary care physician: Kathy Villafana MD Consults: 03/08/25 10:20 Consult to Wound Care Routine Reason for consultation: abrasion to L foot 2/3 toes DS: Diagnosis Discharge Diagnosis (1) Fall: Status: Acute DS: Summary Hospital Course Hospital Course: History and physical as per admitting provider. Patient is an 80-year-old Indonesian-speaking male with a past medical history significant for recent pneumonia, AFib on Eliquis, hypertension, T2DM, gout, hyperlipidemia, HFpEF, dementia, neuropathy, CAD, GERD, BPH, anemia and chronic respiratory failure on oxygen as needed, who presented to the ED today after a fall. The patient was lying in bed in his family members heard a thud, he was found on the ground and they called EMS as he is on Eliquis. The patient states that he did not have any symptoms precipitating his fall including chest pain, shortness of breath or seizure-like activity. He denies loss of consciousness or head strike. The patient's son Hadley and daughter in law Migdalia provide 24 hour care for him. He reported that he woke up this morning, ate breakfast and took his medications and was lying in bed. The son went downstairs and the son's daughter came done there was and said that the patient was lying on the bedroom floor. This fall was unwitnessed, however the patient feels confident that there were no precipitating events and he did not lose consciousness. He did report neck pain to the ED provider but denies this when asked by myself. He was recently admitted for community-acquired pneumonia and JAMES with weakness and hypomagnesemia. He has no infectious symptoms today including fever, chills, nausea, vomiting, diarrhea, cough or upper respiratory symptoms. He denies any urinary symptoms including frequency, urgency or dysuria. 80-year-old man treated for mechanical fall and JAMES on CKD stage IIIB. Due to patient's history of dementia, he likely fell due to getting up from the bed too quickly. I discussed this with patient's family and they reported that yesterday have explained this to him but he is forgetful. Head CT and spine CT were negative for any acute abnormalities, troponin negative, EKG with rate controlled chronic AFib, CPK 137, UA negative for infection, x-ray showing chronic left pleural effusion. No infectious source noted. Patient blood pressure has been stable during hospitalization. He has been able to sit up in his chair. Appetite good. Plan is to discharge patient home with family. JAMES on CKD stage IIIB. Creatinine trended down, close to baseline. Treated with IV fluids Chronic persistent atrial fibrillation. Continue home medications Hypertension. Continue home medications Diabetes mellitus type 2. Continue home medications Gout. Continue allopurinol Hyperlipidemia. Continue home medications Chronic heart failure preserved ejection fraction. No exacerbation during hospitalization Dementia. Supportive care Neuropathy. Continue gabapentin Chronic respiratory failure. No hypoxia or exacerbation during hospitalization. Continue oxygen as needed Right arm scratches with bruising likely from fall. No vesicular appearance. No new medications started, had Benadryl and hydrocortisone with good effect, may continue to use this. Time Attestation Discharge Coordination Time (in mins): 42 Quality: Safe Use of Opioids Does Pt have an Active Cancer Diagnosis on the Problem List?: No Quality: Stroke Does the patient have a stroke diagnosis?: No Physical Exam Vital Signs: Vital Signs: Last Vital Signs Temp 97.8 F 03/09/25 08:00 Pulse 89 03/09/25 08:00 Resp 18 03/09/25 08:00 BP 151/69 H 03/09/25 08:00 Pulse Ox 94 03/09/25 08:00 O2 Del Method Room Air 03/09/25 08:00 BMI result Body Mass Index 36.9 Appearing in no acute distress head is normocephalic atraumatic eyes pupils are PERRLA sclera is anicteric mouth throat mucous membranes are intact and moist neck is supple no lymphadenopathy, no JVD noted lung sounds are clear to auscultation heart regular rate rhythm, clear S1, S2 positive bowel sounds, abdomen is soft, nontender neuro patient is alert x3, no focal deficits Right arm scratches DS: Data Data Completed and Pending Completed studies during hospitalization [Text1]: Procedures Control Bleeding in Gastrointestinal Tract, Via Natural or Artificial Opening Endoscopic (08/17/23) Excision of Right Foot Skin, External Approach (10/07/21) Excision of Stomach, Pylorus, Via Natural or Artificial Opening Endoscopic, Diagnostic (08/17/23) Insertion of Infusion Device into Upper Vein, Percutaneous Approach (11/27/24) Introduction of Mineral-based Topical Hemostatic Agent into Upper GI, Via Natural or Artificial Opening Endoscopic, [employer] 6 (08/17/23) Introduction of Other Therapeutic Substance into Upper GI, Via Natural or Artificial Opening Endoscopic (08/17/23) Transfusion of Nonautologous Frozen Plasma into Peripheral Vein, Percutaneous Approach (08/17/23) Transfusion of Nonautologous Red Blood Cells into Peripheral Vein, Percutaneous Approach (08/17/23) Labs on day of discharge: Laboratory Results - last 24 hr 03/08/25 03/08/25 03/08/25 11:43 16:22 20:16 WBC RBC Hgb Hct MCV MCH MCHC RDW Plt Count MPV Absolute Nucleated RBC Nucleated RBC % (auto) Sodium Potassium Chloride Carbon Dioxide Anion Gap BUN Creatinine Estim Creat Clear Calc Estimated GFR POC Glucose 332 H 365 H* 308 H Random Glucose Calcium 03/09/25 03/09/25 05:35 07:26 WBC 8.5 RBC 3.60 L Hgb 10.2 L Hct 32.6 L MCV 90.6 MCH 28.3 MCHC 31.3 RDW 15.7 Plt Count 169 MPV 12.1 Absolute Nucleated RBC 0.000 Nucleated RBC % (auto) 0.0 Sodium 135 Potassium 4.6 Chloride 100 Carbon Dioxide 24 Anion Gap 16 BUN 28 H Creatinine 2.02 H Estim Creat Clear Calc 35.0 Estimated GFR 32 POC Glucose 289 H Random Glucose 307 H Calcium 8.8 Discharge Plan Discharge Anticipated Discharge Date/Time: 03/09/25 08:21 Patient Disposition: Home, Self-Care Discharge Diagnosis: Fall JAMES on CKD Discharge Medications: Continued Eliquis 5 mg tablet 5 mg PO BID donepezil 10 mg tablet 1 tab PO BEDTIME CertaVite Senior 0.4-300-250 mg-mcg-mcg tablet 1 tab PO DAILY atorvastatin [Lipitor] 40 mg tablet 40 mg PO BEDTIME Qty: 30 0RF metoprolol tartrate 100 mg tablet 100 mg PO BID memantine 10 mg tablet 10 mg PO BID allopurinol 100 mg tablet 50 mg PO DAILY (DME) lancets [Lancets,Ultra Thin] Misc See Rx Instructions .Route Qty: 100 0RF Rx Instructions: As directed cetirizine 10 mg tablet 10 mg PO DAILY magnesium oxide 250 mg magnesium tablet 250 mg PO DAILY isosorbide mononitrate 60 mg Tablet Extended Release 24 Hr 60 mg PO DAILY Qty: 90 0RF Protocol: Hold for SBP< HOLD for SBP < : 90 aspirin 81 mg Tablet,Chewable 81 mg PO DAILY Qty: 60 0RF tamsulosin [Flomax] 0.4 mg capsule 0.4 mg PO BEDTIME Qty: 60 0RF insulin asp prt-insulin aspart [Novolog Mix 70-30 U-100 Insuln] 100 unit/mL (70-30) solution 76 unit subcut BIDWM Rx Instructions: INJECT 76 UNITS SUBCUTANEOUSLY TWICE DAILY WITH BREAKFAST AND WITH DINNER dapagliflozin propanediol [Farxiga] 5 mg tablet 5 mg PO DAILY gabapentin 800 mg tablet 400 mg PO BID Qty: 60 0RF bumetanide 1 mg Tablet 2 mg PO DAILY Qty: 180 0RF Protocol: Hold for SBP< HOLD for SBP < : 90 amlodipine 2.5 mg tablet 2.5 mg PO QAM omeprazole 20 mg capsule,delayed release(DR/EC) 20 mg PO BID@0630,1630 sucralfate 1 gram tablet 1 g PO TIDAC diphenhydramine HCl [Nell-Dryl] 25 mg tablet 12.5 mg PO BEDTIME PRN (Reason: Allergy Symptoms) (DME) insulin syringe-needle U-100 1 mL 31 gauge x 5/16 syringe See Rx Instructions subcut TID Qty: 10 Rx Instructions: As directed Discontinued doxycycline monohydrate 100 mg Capsule 100 mg PO Q12H Qty: 14 0RF cefuroxime axetil 250 mg tablet 250 mg PO BID Qty: 14 0RF Discharge Orders: Discharge Order (Routine); Ordered 03/09/25 Ordered By: Sue Wild Diet: Advance to usual diet Activity on Discharge: As tolerated Stand Alone Forms: Patient Portal Discharge page Print Language: Indonesian Care Plan Goals: May use hydrocortisone cream for itchy rash on arms Continue 24 hour care with family Health Concerns: Fall JAMES on CKD Plan of Treatment: Follow up with primary care provider as needed Take all medications as prescribed Assessment: See discharge summary
--- NOTE | 2025-03-09 11:11 | MHC.CM.PN ---
pt is dcd home self care by alivia
[2025-03-09 11:26] LABS: Glucose, Whole Blood 296 mg/dL (60-115)
--- NOTE | 2025-03-09 11:31 | MHC.CM.PN ---
booking id number is [id number]
[2025-03-09] MEDS: Insulin Lispro 100 UNIT/ML 3 ML VIAL SUBCUT (11:43)
[2025-03-09 13:49] VITALS: BP 121/63; PULSE 93; RESP 16; TEMP 37; O2SAT 93
== END 2025-03-09 14:39 | disposition home or self-care (01) | DRG 683 ==
LOC: HO.ED 19:24 → HO.EDOVER 22:50 → HO.S3 03-08 07:49
PROVIDERS: Admitting Provider Physician Assistant; Emergency Provider Emergency Medicine Emergency Medical Services; PCP General Practice; Visit Provider Nurse Practitioner Acute Care
DX: N17.9 Acute kidney failure, unspecified (principal); I13.0 Hypertensive heart and chronic kidney disease with heart failure and stage 1 through stage 4 chronic kidney disease, or unspecified chronic kidney disease; I48.19 Other persistent atrial fibrillation; I50.32 Chronic diastolic (congestive) heart failure; N40.0 Benign prostatic hyperplasia without lower urinary tract symptoms; N18.32 Chronic kidney disease, stage 3b; E11.22 Type 2 diabetes mellitus with diabetic chronic kidney disease; M10.9 Gout, unspecified; G30.9 Alzheimer's disease, unspecified; F02.80 Dementia in other diseases classified elsewhere, unspecified severity, without behavioral disturbance, psychotic disturbance, mood disturbance, and anxiety; E78.5 Hyperlipidemia, unspecified; E11.40 Type 2 diabetes mellitus with diabetic neuropathy, unspecified; I25.10 Atherosclerotic heart disease of native coronary artery without angina pectoris; W19.XXXA Unspecified fall, initial encounter; Z99.81 Dependence on supplemental oxygen; Z79.4 Long term (current) use of insulin; Z79.01 Long term (current) use of anticoagulants; Z79.899 Other long term (current) drug therapy
CPT/HCPCS: 36415; 70450; 71045; 72125; 80048; 80053; 80307; 81001; 82550; 82947; 83690; 83735; 84484; 85025; 85027; 93005; 99285; J7120

== ENCOUNTER → 2025-03-07 16:11 | Outpatient (BNV) | payer MEDICARE, MEDICAID, SELFPAY | PROVIDERS: Admitting Provider Physician Assistant; Emergency Provider Emergency Medicine Emergency Medical Services; Visit Provider Internal Medicine Cardiovascular Disease | DX: I48.91 Unspecified atrial fibrillation (principal) | CPT/HCPCS: 93010 ==

== ENCOUNTER → 2025-03-07 16:12 | Outpatient (BNV) | payer MEDICARE, MEDICAID, SELFPAY | PROVIDERS: Emergency Provider Emergency Medicine Emergency Medical Services; Visit Provider Nuclear Medicine | DX: M54.2 Cervicalgia (principal); G31.1 Senile degeneration of brain, not elsewhere classified; R90.82 White matter disease, unspecified; J90 Pleural effusion, not elsewhere classified; J98.11 Atelectasis | CPT/HCPCS: 70450; 71045; 72125 ==

== ENCOUNTER → 2025-03-07 22:41 | Outpatient (BNV) | payer MEDICARE, MEDICAID, SELFPAY | PROVIDERS: Admitting Provider Physician Assistant; Emergency Provider Emergency Medicine Emergency Medical Services; Visit Provider Physician Assistant | DX: N18.32 Chronic kidney disease, stage 3b (principal); N17.9 Acute kidney failure, unspecified | CPT/HCPCS: 99223 ==

== ENCOUNTER 2025-04-20 17:50 | Emergency (ER) | payer OTHER, SELFPAY ==
[2025-04-20] VITALS (7 sets, daily range): BP systolic 102–126; BP diastolic 55–69; PULSE 52–82; RESP 12–18; TEMP 36.2; O2SAT 96–98; BMI 36.7
--- NOTE | 2025-04-20 | ECG_ITS ---
Test Reason : SYNCOPE Blood Pressure : */* mmHG Vent. Rate : 54 BPM Atrial Rate : * BPM P-R Int : * ms QRS Dur : 92 ms QT Int : 460 ms P-R-T Axes : * 31 6 degrees QTcB Int : 436 ms Atrial fibrillation with slow ventricular response Possible Inferior infarct , age undetermined Cannot rule out Anterior infarct , age undetermined Abnormal ECG When compared with ECG of 07-Mar-2025 16:50, Minimal criteria for Anterior infarct are now Present No significant change was found Referred By: Generic ED Physician Electronically Signed By: Brendon Joaquin
--- NOTE | 2025-04-20 20:33 | ECG_ITS ---
Test Reason : BRADYCARDIA/SOB Blood Pressure : */* mmHG Vent. Rate : 39 BPM Atrial Rate : 39 BPM P-R Int : 240 ms QRS Dur : 128 ms QT Int : 520 ms P-R-T Axes : 24 -33 18 degrees QTcB Int : 418 ms Marked sinus bradycardia with 1st degree A-V block Possible Left atrial enlargement Left axis deviation Non-specific intra-ventricular conduction block Abnormal ECG When compared with ECG of 20-Apr-2025 18:12, Sinus rhythm has replaced Atrial fibrillation QRS duration has increased Minimal criteria for Anterior infarct are no longer Present Nonspecific T wave abnormality no longer evident in Anterior leads Referred By: Emily Seymour Electronically Signed By:
--- NOTE | 2025-04-20 20:52 | ED.GENADULT ---
HPI - General Adult General Chief complaint: General Medical Stated complaint: syncopal episode, ams,low bp,wekaness Time Seen by Provider: 04/20/25 19:47 Source: patient and EMS Mode of arrival: EMS Limitations: other (Alzheimer's dementia) History of Present Illness ED Provider: Dr. Emily Seymour HPI narrative: Patient comes to the emergency room via ambulance complaining of dizziness. According to EMS, earlier today, patient was incontinent and his family was helping him take a shower, patient went unresponsive and then EMS arrived. At the time of EMS arrival, patient was awake, alert and oriented, had no complaints. In the emergency room, patient arrived awake, alert, oriented. Patient states that he remembers that he was getting ready to take a shower, then he started feeling that his neck was spasming and was able to sit down. Patient states that he did not lose consciousness, denies hitting his head. Patient states that for several years he has had dizziness when he stands, states that he always needs a walker because he constantly gets dizzy. At this time, patient states that he has not chest pain or shortness of breath, no dizziness or unsteadiness, no neck pain. However, patient does have history of Alzheimer's dementia, and it is unclear how reliable his history is Related Data Home Medications ?Medication ?Instructions ?Recorded ?Confirmed apixaban 5 mg tablet (Eliquis) 5 mg PO BID 09/05/21 03/08/25 donepezil 10 mg tablet 1 tab PO BEDTIME 09/05/21 03/08/25 sisuwcmp-bpc-kwkre acid 0.4 1 tab PO DAILY 09/05/21 03/08/25 mg-lycopene 300 mcg-lutein 250 mcg tablet (CertaVite Senior) allopurinol 100 mg tablet 50 mg PO DAILY gout pain 10/07/21 03/08/25 insulin syringe-needle U-100 1 mL #10 ea 12/22/21 03/08/25 31 gauge x 04/10 memantine 10 mg tablet 10 mg PO BID 05/08/22 03/08/25 metoprolol tartrate 100 mg tablet 100 mg PO BID 05/08/22 03/08/25 cetirizine 10 mg tablet 10 mg PO DAILY congestion 08/17/23 03/08/25 omeprazole 20 mg capsule,delayed 20 mg PO BID@0630,1630 05/17/24 03/08/25 release sucralfate 1 gram tablet 1 g PO TIDAC 05/17/24 03/08/25 magnesium oxide 250 mg PO DAILY 11/25/24 03/08/25 insulin aspar prt-insulin aspart 76 unit subcut BIDWM 12/24/24 03/08/25 100 unit/mL (70-30) subcutaneous soln (Novolog Mix 70-30 U-100 Insuln) diphenhydramine HCl 25 mg tablet 12.5 mg PO BEDTIME PRN Allergy 01/08/25 03/08/25 (Nell-Dryl) Symptoms dapagliflozin propanediol 5 mg 5 mg PO DAILY 02/27/25 03/08/25 tablet (Farxiga) amlodipine 2.5 mg tablet 2.5 mg PO QAM 03/08/25 03/08/25 Previous Rx's ?Medication ?Instructions ?Recorded atorvastatin 40 mg tablet (Lipitor) 40 mg PO BEDTIME #30 tabs 09/09/21 lancets (Lancets,Ultra Thin) #100 ea 10/21/21 aspirin 81 mg chewable tablet 81 mg PO DAILY #60 tabs 12/03/24 isosorbide mononitrate 60 mg 60 mg PO DAILY #90 tabs 12/03/24 tablet,extended release 24 hr tamsulosin 0.4 mg capsule (Flomax) 0.4 mg PO BEDTIME #60 caps 12/03/24 bumetanide 1 mg tablet 2 mg PO DAILY #180 tabs 03/02/25 gabapentin 800 mg tablet 400 mg (1/2 x 800 mg) PO BID #60 03/02/25 tabs Allergies Allergy/AdvReac Type Severity Reaction Status Date / Time No Known Allergies Allergy Verified 04/20/25 18:11 Review of Systems Review of Systems: Constitutional : No Weight loss, No Fever, No Chills, No Night Sweats, No Fatigue, No Malaise ENT/Mouth : No Hearing loss, No Ear Pain, No Nasal Congestion, No Sinus Pain, No Hoarseness, No sore throat, No Rhinorrhea, No Swallowing Difficulty Eyes: No Eye Pain, No Swelling, No Redness, No Foreign Body, No Discharge, No Vision Changes Cardiovascular : No Chest Pain, No SOB, No Dyspnea on Exertion, No Orthopnea, No Edema, No Palpitations Respiratory : No Cough, No Sputum, No Wheezing, No Smoke Exposure, No Dyspnea Gastrointestinal : No Nausea, No Vomiting, No Diarrhea, No Constipation, No abdominal Pain, No Hematochezia, No Melena Genitourinary : no irregular bleeding, No Dysuria, No Urinary Frequency, No Hematuria, No Urinary Incontinence, No Urgency, No Flank Pain, No Urinary Flow Changes, No Hesitancy Musculoskeletal : No joint pain, No Myalgias, No Joint Swelling Skin : No Skin Lesions, No rash Neuro : No Weakness, No Numbness, No Paresthesias, per EMS/family, patient had loss of consciousness. Patient denies loss of consciousness. Complaining of dizziness that is self-resolved Psych : No Anxiety/Panic, No Depression, No SI/HI/AH/VH, No Social Issues, Heme/Lymph: No Bruising, No Bleeding,No Lymphadenopathy Endocrine : No Polyuria, No Polydipsia, No Temperature Intolerance PMFSH Past Medical History Medical History Seizure CKD stage 3b, GFR 30-44 ml/min CHF exacerbation Chronic atrial fibrillation Diabetes mellitus Alzheimer's dementia Acute hypoxic respiratory failure Pneumonia Pneumonia Acute respiratory failure Hypoxia CAD (coronary artery disease) Trash foot Diabetic foot infection Heart failure with preserved ejection fraction HLD (hyperlipidemia) Atrial fibrillation NSTEMI (non-ST elevated myocardial infarction) Kidney failure Diabetes HTN (hypertension) Surgical History No pertinent past surgical history Family History Family History Father No problems noted. Mother No problems noted. Social History Social History Household Members: Family and Children Household Members Other:: sons and daughter in law Housing: House Do you presently have visiting nurse or other home services: Yes Unable to assess alcohol history related to: Unable to respond Alcohol intake: former Patient Tobacco Use Status: Never used Tobacco Smoked in Last 30 Days: No e-Cigarette/Vaping Use: Never Used Second Hand Smoke Exposure: No Use of substances other than those prescribed or required for medical reasons: No Advance Directives: Yes Advance Directives on File: Yes Advance Directives Date on File: 09/06/21 service: No Current occupational status: retired Physical Exam ED Vital Signs: Vital Signs - 24 hr 04/20/25 18:09 04/20/25 18:12 04/20/25 19:15 Temperature 97.2 F 97.1 F Pulse Rate 52 Respiratory Rate 18 Blood Pressure 116/55 L Pulse Oximetry 98 Oxygen Delivery Method Room Air 04/20/25 20:53 04/20/25 21:07 04/20/25 21:08 Temperature Pulse Rate 57 74 82 Respiratory Rate 12 Blood Pressure 126/66 126/66 113/62 Pulse Oximetry 96 Oxygen Delivery Method Room Air 04/20/25 22:44 Temperature Pulse Rate 63 Respiratory Rate 12 Blood Pressure 102/69 Pulse Oximetry 96 Oxygen Delivery Method Room Air BMI result Body Mass Index 36.7 Const Other: Appearance: Alert. Oriented X3. No acute distress. Eyes: Pupils equal, round and reactive to light. ENT: Pharynx normal. Neck: Normal inspection. Neck supple. No lymph nodes noted. No crepitus CVS: Normal heart rate and rhythm. Pulses normal. Normal S1 and S2 Respiratory: No respiratory distress. Breath sounds normal. No Wheezing. No rales Abdomen: Soft and nontender. No rigidity. No distention. Skin: Skin warm and dry. Normal skin color. Normal skin turgor. Extremities: No lower extremity edema. No Lacerations. No Rash Neuro: Oriented X 3. No motor deficit. No sensory deficit. Moving all extremities. No slurred speech. CN 2 through 12 grossly intact Psych: calm, cooperative, normal affect Course Course Course Narrative: Patient complaining of feeling dizzy. Family reports loss of consciousness, the family denies LOC. However, patient has dementia and it is unclear how reliable his history is. At this time, patient states that he feels well and has no complaints Patient's vitals stable, blood pressure 116/55, pulse 52, respirations 18, oxygen saturation 98% on room air Labs pending Medical Decision Making Medical Decision Making MDM Narrative: My interpretation of EKG: Atrial fibrillation with slow ventricular rate, heart rate 64, no ST segment depression or elevation, no T-wave inversion, QTC 436 My interpretation of labs, no significant abnormality in patient's hematology and chemistry, troponin 7.4. According to the tech, patient was able to ambulated as a pretty good pace using a walker. Patient denies any symptoms. Patient states that he feels well. Urinalysis negative for UTI, ETOH negative, serology negative Patient's vitals are stable, no episodes of hypotension or hypotension, oxygen saturation steady 96-98% even with exertion. Ambulating, patient did well with a walker which he uses at home. Overall, patient states that he feels well, has no complaints. Patient has history of Alzheimer's dementia but is still able to have a fairly coherent conversation and make his needs known Given the description of 2 days 7 by the patient's family to EMS, is likely that the patient had a vasovagal syncope/near syncope. Patient ready for discharge Differential Diagnosis Differential Diagnoses: The differential diagnosis associated with the presentation includes (Syncope, near syncopal, orthostatic hypotension, dehydration) Admission/Observation Consideration of admission/observation: Escalation of care including admission/observation considered (Given patient's past medical history and age, observation was considered) Lab Data MDM Lab Attestation statement: I reviewed the patient's lab results. 04/20/25 20:48 04/20/25 14:14 Labs: Lab Results 04/20/25 04/20/25 04/20/25 Range/Units 14:14 20:48 20:49 WBC 6.5 (4.8-10.8) X10*3/uL RBC 3.86 L (4.60-5.80) X10*6/uL Hgb 10.0 L (14.0-18.0) g/dl Hct 32.3 L (42.0-52.0) % MCV 83.7 (80.0-98.0) fL MCH 25.9 L (27.0-33.0) pg MCHC 31.0 (31.0-36.0) g/dl RDW 16.2 H (11.0-16.0) % Plt Count 157 L (160-400) X10*3/uL MPV 12.6 H (9.4-12.4) fL Immature Gran % (Auto) 0.3 (0.0-0.4) % Neut % (Auto) 65.6 (45-73) % Lymph % (Auto) 22.2 (20-40) % [place] % (Auto) 7.9 (2-11) % Eos % (Auto) 3.2 (0-4) % Baso % (Auto) 0.8 (0-2) % Lymph # (Auto) 1.4 (1.2-4.9) X10*3/uL [place] # (Auto) 0.5 (0.1-1.2) X10*3/uL Eos # (Auto) 0.2 (0.0-0.4) X10*3/uL Baso # (Auto) 0.1 (0.0-0.2) X10*3/uL Abs Immat Gran (auto) 0.02 (0.00-0.03) X10*3/uL Absolute Neuts (auto) 4.3 (2.0-8.3) x10*3/uL Absolute Nucleated RBC 0.000 (0.0-0.012) X10*3/uL Nucleated RBC % (auto) 0.0 (0.0-0.2) /100WBC Sodium 138 (135-145) mmol/L Potassium 3.6 D (3.3-5.1) mmol/L Chloride 97 (96-108) mmol/L Carbon Dioxide 24 (22-29) mmol/L Anion Gap 21 H (12-20) BUN 35 H (9-16) mg/dL Creatinine 1.91 H (0.5-1.4) mg/dL Estim Creat Clear Calc 39.3 Estimated GFR 34 Random Glucose 262 H (60-115) mg/dL Calcium 8.8 (8.4-10.2) mg/dL Magnesium 2.5 (1.6-2.6) mg/dL Total Bilirubin 0.7 (0.0-1.0) mg/dL Direct Bilirubin 0.2 (0.0-0.5) mg/dL AST 24 (5-37) U/L ALT 10 (0-40) U/L Alkaline Phosphatase 93 (39-117) U/L Troponin I High Sens 7.4 (<3.5-35.0) ng/L B-Natriuretic Peptide 205 H (<100) pg/mL Total Protein 7.3 (6.5-8.0) g/dL Albumin 3.8 (3.5-5.0) g/dL Urine Color Urine Appearance Urine pH (5.0-9.0) Ur Specific [place] (1.005-1.025) Urine Protein (Neg-Trace) mg/dL Urine Glucose (UA) (Negative) mg/dL Urine Ketones (Negative) mg/dL Urine Blood (Negative) Urine Nitrite (Negative) Ur Leukocyte Esterase (Negative) Urine RBC (0-2) /HPF Urine WBC (0-5) /HPF Ur Squamous Epith Cells (0-2) /HPF Urine Bacteria (None Seen) Hyaline Casts (0-2) /LPF Ethyl Alcohol < 10 mg/dL Influenza Type A (PCR) NEGATIVE (Negative) Influenza Type B (PCR) NEGATIVE (Negative) RSV RNA Qual (PCR) NEGATIVE (Negative) SARS-CoV-2 RNA (RT-PCR) NEGATIVE (Negative) 04/20/25 Range/Units 23:45 WBC (4.8-10.8) X10*3/uL RBC (4.60-5.80) X10*6/uL Hgb (14.0-18.0) g/dl Hct (42.0-52.0) % MCV (80.0-98.0) fL MCH (27.0-33.0) pg MCHC (31.0-36.0) g/dl RDW (11.0-16.0) % Plt Count (160-400) X10*3/uL MPV (9.4-12.4) fL Immature Gran % (Auto) (0.0-0.4) % Neut % (Auto) (45-73) % Lymph % (Auto) (20-40) % [place] % (Auto) (2-11) % Eos % (Auto) (0-4) % Baso % (Auto) (0-2) % Lymph # (Auto) (1.2-4.9) X10*3/uL [place] # (Auto) (0.1-1.2) X10*3/uL Eos # (Auto) (0.0-0.4) X10*3/uL Baso # (Auto) (0.0-0.2) X10*3/uL Abs Immat Gran (auto) (0.00-0.03) X10*3/uL Absolute Neuts (auto) (2.0-8.3) x10*3/uL Absolute Nucleated RBC (0.0-0.012) X10*3/uL Nucleated RBC % (auto) (0.0-0.2) /100WBC Sodium (135-145) mmol/L Potassium (3.3-5.1) mmol/L Chloride (96-108) mmol/L Carbon Dioxide (22-29) mmol/L Anion Gap (12-20) BUN (9-16) mg/dL Creatinine (0.5-1.4) mg/dL Estim Creat Clear Calc Estimated GFR Random Glucose (60-115) mg/dL Calcium (8.4-10.2) mg/dL Magnesium (1.6-2.6) mg/dL Total Bilirubin (0.0-1.0) mg/dL Direct Bilirubin (0.0-0.5) mg/dL AST (5-37) U/L ALT (0-40) U/L Alkaline Phosphatase (39-117) U/L Troponin I High Sens (<3.5-35.0) ng/L B-Natriuretic Peptide (<100) pg/mL Total Protein (6.5-8.0) g/dL Albumin (3.5-5.0) g/dL Urine Color Yellow Urine Appearance Clear Urine pH 5.5 (5.0-9.0) Ur Specific [place] 1.020 (1.005-1.025) Urine Protein Negative (Neg-Trace) mg/dL Urine Glucose (UA) >=1000 H (Negative) mg/dL Urine Ketones Negative (Negative) mg/dL Urine Blood Negative (Negative) Urine Nitrite Negative (Negative) Ur Leukocyte Esterase Negative (Negative) Urine RBC 0-2 (0-2) /HPF Urine WBC 0-5 (0-5) /HPF Ur Squamous Epith Cells 0-2 (0-2) /HPF Urine Bacteria None Seen (None Seen) Hyaline Casts 3-5 (0-2) /LPF Ethyl Alcohol mg/dL Influenza Type A (PCR) (Negative) Influenza Type B (PCR) (Negative) RSV RNA Qual (PCR) (Negative) SARS-CoV-2 RNA (RT-PCR) (Negative) Independent Interpretation I performed an independent interpretation of an: EKG Critical Care Time Critical Care Time Critical Care Time: Yes Total Critical Care Time: 35 Attestation: I have personally provided critical care time. Time includes review of lab data, radiology results, discussion with consultants, and monitoring for potential decompensation. Intervention performed as documented. Discharge Plan Discharge Clinical Impression: Dizziness, Vasovagal near-syncope Patient Disposition: Home, Self-Care Instructions: Near Syncope (ED), Dizziness (ED) Additional Instructions: Please follow-up with your primary care physician tomorrow. If you have any worsening or new symptoms, please return to the emergency room or call 911 Prescriptions: No Action Eliquis 5 mg tablet 5 mg PO BID donepezil 10 mg tablet 1 tab PO BEDTIME CertaVite Senior 0.4-300-250 mg-mcg-mcg tablet 1 tab PO DAILY atorvastatin [Lipitor] 40 mg tablet 40 mg PO BEDTIME Qty: 30 0RF metoprolol tartrate 100 mg tablet 100 mg PO BID memantine 10 mg tablet 10 mg PO BID allopurinol 100 mg tablet 50 mg PO DAILY (DME) lancets [Lancets,Ultra Thin] Misc See Rx Instructions .Route Qty: 100 0RF Rx Instructions: As directed cetirizine 10 mg tablet 10 mg PO DAILY magnesium oxide 250 mg magnesium tablet 250 mg PO DAILY isosorbide mononitrate 60 mg Tablet Extended Release 24 Hr 60 mg PO DAILY Qty: 90 0RF Protocol: Hold for SBP< HOLD for SBP < : 90 aspirin 81 mg Tablet,Chewable 81 mg PO DAILY Qty: 60 0RF tamsulosin [Flomax] 0.4 mg capsule 0.4 mg PO BEDTIME Qty: 60 0RF insulin asp prt-insulin aspart [Novolog Mix 70-30 U-100 Insuln] 100 unit/mL (70-30) solution 76 unit subcut BIDWM Rx Instructions: INJECT 76 UNITS SUBCUTANEOUSLY TWICE DAILY WITH BREAKFAST AND WITH DINNER dapagliflozin propanediol [Farxiga] 5 mg tablet 5 mg PO DAILY gabapentin 800 mg tablet 400 mg PO BID Qty: 60 0RF bumetanide 1 mg Tablet 2 mg PO DAILY Qty: 180 0RF Protocol: Hold for SBP< HOLD for SBP < : 90 amlodipine 2.5 mg tablet 2.5 mg PO QAM omeprazole 20 mg capsule,delayed release(DR/EC) 20 mg PO BID@0630,1630 sucralfate 1 gram tablet 1 g PO TIDAC diphenhydramine HCl [Nell-Dryl] 25 mg tablet 12.5 mg PO BEDTIME PRN (Reason: Allergy Symptoms) (DME) insulin syringe-needle U-100 1 mL 31 gauge x 5/16 syringe See Rx Instructions subcut TID Qty: 10 Rx Instructions: As directed Print Language: Unable To Collect
[2025-04-20 21:01] LABS: MANUAL DIFF FLAG NO
[2025-04-20 21:02] LABS: Basophils Absolute Auto 0.1 X10*3/uL (0.0-0.2); Basophils Percent Auto 0.8 % (0-2); Eosinophils Absolute Auto 0.2 X10*3/uL (0.0-0.4); Eosinophils Percent Auto 3.2 % (0-4); Hematocrit 32.3 % (42.0-52.0); Imm Gran Abs Auto 0.02 X10*3/uL (0.00-0.03); Imm Gran Pct Auto 0.3 % (0.0-0.4); Lymphocytes Absolute Auto 1.4 X10*3/uL (1.2-4.9); Lymphocytes Percent Auto 22.2 % (20-40); Mean Corpuscular Hemoglobin 25.9 pg (27.0-33.0); Mean Corpuscular Volume 83.7 fL (80.0-98.0); Mean Platelet Volume 12.6 fL (9.4-12.4); Monocytes Absolute Auto 0.5 X10*3/uL (0.1-1.2); Monocytes Percent Auto 7.9 % (2-11); Neutrophils Absolute Auto 4.3 x10*3/uL (2.0-8.3); Neutrophils Percent Auto 65.6 % (45-73); Platelet Count 157 X10*3/uL (160-400); Red Blood Count 3.86 X10*6/uL (4.60-5.80); Red Cell Distribution Width 16.2 % (11.0-16.0); White Blood Count 6.5 X10*3/uL (4.8-10.8)
[2025-04-20 21:15] LABS: Ethanol < 10 mg/dL
[2025-04-20 21:17] LABS: Alanine Aminotransferase 10 U/L (0-40); Albumin Level 3.8 g/dL (3.5-5.0); Alkaline Phosphatase 93 U/L (39-117); Anion Gap 21 (12-20); Aspartate Amino Transferase 24 U/L (5-37); Bilirubin Direct 0.2 mg/dL (0.0-0.5); Bilirubin Total 0.7 mg/dL (0.0-1.0); Blood Urea Nitrogen 35 mg/dL (9-16); Calcium 8.8 mg/dL (8.4-10.2); Carbon Dioxide 24 mmol/L (22-29); Chloride 97 mmol/L (96-108); Creatinine Clr Calc Pharmacy 39.3; Estimated Glomerular Filt Rate 34; Glucose Random 262 mg/dL (60-115); Magnesium 2.5 mg/dL (1.6-2.6); Potassium 3.6 mmol/L (3.3-5.1); Sodium 138 mmol/L (135-145); Total Protein 7.3 g/dL (6.5-8.0)
[2025-04-20 21:21] LABS: B Type Natriuretic Peptide 205 pg/mL (<100)
[2025-04-20 21:23] LABS: Troponin-I High Sensitivity 7.4 ng/L (<3.5-35.0)
[2025-04-20 21:38] LABS: Influenza A PCR NEGATIVE (Negative); Influenza B PCR NEGATIVE (Negative); Resp Syncy Virus RNA Qual PCR NEGATIVE (Negative); SARS COV2 PCR INHOUSE NEGATIVE (Negative)
[2025-04-20 23:48] LABS: Appearance Urine Clear; Color Urine Yellow; Glucose Urine UA >=1000 mg/dL (Negative); Leukocyte Esterase Urine Negative (Negative); Nitrite Urine Negative (Negative); PH 5.5 (5.0-9.0); UMIC TRIGGER UACC YES; Urine Blood Negative (Negative); Urine Ketones Negative (Negative); Urine Protein Negative (Neg-Trace)
[2025-04-20 23:51] LABS: Bacteria Urine None Seen (None Seen); RBC Urine 0-2 /HPF (0-2); Squamous Epithelial Cell Urine 0-2 /HPF (0-2); WBC Urine 0-5 /HPF (0-5)
[2025-04-21 00:01] LABS: Amphetamine Screen Urine Not Detected (Not Detect); Barbiturates, Urine Not Detected (Not Detect); Benzodiazepines Screen Urine Not Detected (Not Detect); Buprenorphine Scr Not Detected (Not Detect); Cannabinoid Screen Urine Not Detected (Not Detect); Cocaine Screen Urine Not Detected (Not Detect); Fentanyl, urine Not Detected (Not Detect); Methadone Screen, Urine Not Detected (Not Detect); Opiate Screen Urine Not Detected (Not Detect); Oxycodone Screen Urine Not Detected (Not Detect); Phencyclidine Screen Urine Not Detected (Not Detect)
--- NOTE | 2025-04-21 00:18 | PC.NURSE ---
straight cath completed, removed approximately 300ml. Pt tolerated well. Urine sent to lab.
--- NOTE | 2025-04-21 00:19 | PC.NURSE ---
T/w spoke with daughter in law Migdalia to updat e and give discharge instructions. Migdalia aware and would like a call when patient leaves in ambulance.
[2025-04-21 00:46] VITALS: BP 137/46; PULSE 74; RESP 18; TEMP 36.5; O2SAT 95
--- NOTE | 2025-04-21 00:56 | PC.NURSE ---
spoke with son and grandson to update of pt being on his way home. report given to ems.
[2025-04-21 00:58] VITALS: BP 137/46; PULSE 74; RESP 18; TEMP 36.5; O2SAT 95
== END 2025-04-21 01:06 | disposition home or self-care (01) ==
PROVIDERS: Emergency Provider Emergency Medicine; PCP General Practice
DX: R55 Syncope and collapse (principal); R42 Dizziness and giddiness; Z03.818 Encounter for observation for suspected exposure to other biological agents ruled out; E11.22 Type 2 diabetes mellitus with diabetic chronic kidney disease; I13.0 Hypertensive heart and chronic kidney disease with heart failure and stage 1 through stage 4 chronic kidney disease, or unspecified chronic kidney disease; N18.30 Chronic kidney disease, stage 3 unspecified; I50.30 Unspecified diastolic (congestive) heart failure; E78.5 Hyperlipidemia, unspecified; I48.91 Unspecified atrial fibrillation; Z79.4 Long term (current) use of insulin; Z79.01 Long term (current) use of anticoagulants; Z79.02 Long term (current) use of antithrombotics/antiplatelets; Z79.899 Other long term (current) drug therapy; Z79.82 Long term (current) use of aspirin
CPT/HCPCS: 0241U; 36415; 51701; 80048; 80076; 80307; 81001; 83735; 83880; 84484; 85025; 93005; 99283; 99285

== ENCOUNTER → 2025-04-20 18:12 | Outpatient (BNV) | payer OTHER, SELFPAY | PROVIDERS: Emergency Provider Emergency Medicine; PCP General Practice; Visit Provider Internal Medicine Cardiovascular Disease | DX: I44.0 Atrioventricular block, first degree (principal); I45.4 Nonspecific intraventricular block; R00.1 Bradycardia, unspecified | CPT/HCPCS: 93010 ==

== ENCOUNTER 2025-04-25 18:06 | Emergency (ER) | payer OTHER, SELFPAY ==
--- NOTE | ~2025-04-25 | CT_ITS ---
CLINICAL HISTORY: urinary retention CT abdomen and pelvis without contrast Comparison: None Findings: Small hiatal hernia. Atelectasis. Small left pleural effusion. Gynecomastia. Cardiomegaly without significant pericardial effusion. Coronary artery calcifications. Atrophic pancreas. Bilateral perinephric stranding, nonspecific. No urolithiasis or hydronephrosis. Radiopaque 1.3 cm focus in the proximal stomach, question ingested foreign body, should be correlated clinically. No bowel obstruction. Large rectal stool burden with mural thickening and presacral stranding, concerning proctitis. Large colonic stool burden. No bowel obstruction. Fat containing umbilical hernia. Fat containing inguinal hernias. Prostatomegaly noted. Normal appendix. Mildly distended bladder. Osteopenia with diffuse multilevel spondylosis. Multilevel Schmorl's nodes. Thoracic diffuse idiopathic skeletal hyperostosis. Focal spondylosis at L5-S1. IMPRESSION: 1. Findings consistent with proctitis. 2. Large colorectal stool burden. 3. Question ingested foreign body as described. This document has been electronically signed by: Miguel Silver MD on 04/25/2025 23:07:50
[2025-04-25 18:16] VITALS: BP 110/70; PULSE 70; O2SAT 96
[2025-04-25 18:18] VITALS: BP 107/59; PULSE 72; RESP 18; TEMP 36.5; O2SAT 93; BMI 34.7
--- NOTE | 2025-04-25 18:29 | ED_ITS ---
HPI - General Adult General Chief complaint: General Medical Stated complaint: no urination since yesterday Time Seen by Provider: 04/25/25 18:09 Source: patient and family Mode of arrival: wheelchair Limitations: language barrier (Nepali-speaking gum maker utilized) History of Present Illness ED Provider: Luma Barton NP HPI narrative: Patient is an 80-year-old male who presents emergency department with son for evaluation. Patient's son reports that since 17:00 yesterday evening he has had minimal urinary output. States that he has to remind his father to use the bathroom and tried to pee, but each time that he does it is only small amounts. He reports that patient has a history of kidney disease and he is on a fluid restriction, ?a little under 2 L bottle of soda?. He states that patient has underlying dementia and will often answered no to any questioning that is asked. Patient does not provide much answers to myself when asked, when asked if he is experiencing pain he states now, he is otherwise just smiling. Patient's son does not believe that he appears to be in any pain recently. Denies any fevers or chills. No nausea or vomiting but he has had a decreased appetite today. Related Data Home Medications ?Medication ?Instructions ?Recorded ?Confirmed apixaban 5 mg tablet (Eliquis) 5 mg PO BID 09/05/21 03/08/25 donepezil 10 mg tablet 1 tab PO BEDTIME 09/05/21 03/08/25 irmorqow-ixx-wouck acid 0.4 1 tab PO DAILY 09/05/21 03/08/25 mg-lycopene 300 mcg-lutein 250 mcg tablet (CertaVite Senior) allopurinol 100 mg tablet 50 mg PO DAILY gout pain 10/07/21 03/08/25 insulin syringe-needle U-100 1 mL #10 ea 12/22/21 03/08/25 31 gauge x 16 memantine 10 mg tablet 10 mg PO BID 05/08/22 03/08/25 metoprolol tartrate 100 mg tablet 100 mg PO BID 05/08/22 03/08/25 cetirizine 10 mg tablet 10 mg PO DAILY congestion 08/17/23 03/08/25 omeprazole 20 mg capsule,delayed 20 mg PO BID@0630,1630 05/17/24 03/08/25 release sucralfate 1 gram tablet 1 g PO TIDAC 05/17/24 03/08/25 magnesium oxide 250 mg PO DAILY 11/25/24 03/08/25 insulin aspar prt-insulin aspart 76 unit subcut BIDWM 12/24/24 03/08/25 100 unit/mL (70-30) subcutaneous soln (Novolog Mix 70-30 U-100 Insuln) diphenhydramine HCl 25 mg tablet 12.5 mg PO BEDTIME PRN Allergy 01/08/25 03/08/25 (Nell-Dryl) Symptoms dapagliflozin propanediol 5 mg 5 mg PO DAILY 02/27/25 03/08/25 tablet (Farxiga) amlodipine 2.5 mg tablet 2.5 mg PO QAM 03/08/25 03/08/25 Previous Rx's ?Medication ?Instructions ?Recorded atorvastatin 40 mg tablet (Lipitor) 40 mg PO BEDTIME #30 tabs 09/09/21 lancets (Lancets,Ultra Thin) #100 ea 10/21/21 aspirin 81 mg chewable tablet 81 mg PO DAILY #60 tabs 12/03/24 isosorbide mononitrate 60 mg 60 mg PO DAILY #90 tabs 12/03/24 tablet,extended release 24 hr tamsulosin 0.4 mg capsule (Flomax) 0.4 mg PO BEDTIME #60 caps 12/03/24 bumetanide 1 mg tablet 2 mg PO DAILY #180 tabs 03/02/25 gabapentin 800 mg tablet 400 mg (1/2 x 800 mg) PO BID #60 03/02/25 tabs polyethylene glycol 3350 17 17 g PO DAILY #119 grams 04/26/25 gram/dose oral powder (Miralax) Allergies Allergy/AdvReac Type Severity Reaction Status Date / Time No Known Allergies Allergy Verified 04/25/25 18:20 Review of Systems 2 Review of Systems: Yes all other systems are reviewed and are negative PMFSH Past Medical History Attestation statement: The following information was validated with the patient. Source: old records reviewed Medical History Seizure CKD stage 3b, GFR 30-44 ml/min CHF exacerbation Chronic atrial fibrillation Diabetes mellitus Alzheimer's dementia Acute hypoxic respiratory failure Pneumonia Pneumonia Acute respiratory failure Hypoxia CAD (coronary artery disease) Trash foot Diabetic foot infection Heart failure with preserved ejection fraction HLD (hyperlipidemia) Atrial fibrillation NSTEMI (non-ST elevated myocardial infarction) Kidney failure Diabetes HTN (hypertension) Surgical History No pertinent past surgical history Family History Family History Father No problems noted. Mother No problems noted. Social History Social History Household Members: Family and Children Household Members Other:: sons and daughter in law Housing: House Do you presently have visiting nurse or other home services: Yes Unable to assess alcohol history related to: Unable to respond Alcohol intake: former Patient Tobacco Use Status: Never used Tobacco e-Cigarette/Vaping Use: Never Used Second Hand Smoke Exposure: No Advance Directives: Yes Advance Directives on File: Yes Advance Directives Date on File: 09/06/21 service: No Current occupational status: retired Physical Exam ED Vital Signs: Vital Signs - 24 hr 04/25/25 18:18 04/25/25 18:54 04/25/25 21:50 Temperature 97.7 F 97.0 F 96.0 F L Pulse Rate 72 50 66 Respiratory Rate 18 14 16 Blood Pressure 107/59 L 108/66 114/53 L Pulse Oximetry 93 94 95 Oxygen Delivery Method Room Air Room Air Room Air 04/25/25 23:18 04/26/25 02:16 Temperature 97.9 F Pulse Rate 52 59 Respiratory Rate 16 20 Blood Pressure 123/53 L 140/55 H Pulse Oximetry 95 99 Oxygen Delivery Method Room Air Room Air BMI result Body Mass Index 34.7 Appearance: Alert.? Disoriented No acute distress.?Normal affect. Eyes: Pupils equal, round and reactive to light.? ENT: Pharynx normal.?? Neck: Normal inspection.? Neck supple.?? CVS: Heart sounds normal. Normal heart rate and rhythm.? Pulses normal.?? Respiratory: No respiratory distress.? Lung sounds clear to auscultation bilaterally?? Abdomen: Soft and non-tender. Normoactive bowel sounds. no CVAT Skin: Skin warm and dry.? Normal skin color.? Extremities: No lower extremity edema.? No calf ttp? Neuro: Moves all extremities spontaneously. Sensation intact bilaterally. Course Reevaluation(s) Reevaluation #1: CT of the abdomen and pelvis revealing findings consistent with proctitis, large rectal stool burden with mural thickening and presacral stranding without obstruction. There is question of ingested foreign body with radiopaque 1.3 cm focus in the proximal stomach, on evaluation of prior CT imaging in June of 2024 there appears to be a similar finding. Patient with history of dementia can not ascertained for certain whether he did or did not ingest any foreign body but I do not suspect that this is acute. Upon digital rectal examination there is no hard or formed stool in the rectal vault, there is a small amount of soft stool that is present, please mineral will enema was instilled. Unfortunately he was not able to produce a sufficient bowel movement. He was able to void a very small amount into the commode. Repeat bladder scan indicating PVR of 919 mL, will place Bragg catheter at this time and obtain urinalysis Reevaluation #2: Initial urinary output of 1100 clear yellow urine. Urinalysis reveals no evidence of infection. Post IV fluids JAMES has resolved. Patient will need outpatient follow-up with urology for urinary retention further evaluation/management with Bragg catheter. This was discussed with patient's family and they are agreeable plan of care. At this time feel that he is stable for discharge home. Given strict return precautions. All questions answered Medications Administered Discontinued Medications Generic Name Dose Route Start Last Admin Trade Name Freq PRN Reason Stop Dose Admin Sodium Chloride 1,000 mls @ 999 mls/hr 04/25/25 21:30 04/25/25 22:23 Ns IV 04/25/25 22:30 999 mls/hr .Q1H1M REYNALDO Administration Mineral Oil 133 ml 04/25/25 23:28 04/25/25 23:39 Mineral Oil Enema 133 Ml Enema IN 04/25/25 23:29 133 ml ONCE ONE Administration Medical Decision Making Medical Decision Making MDM Narrative: Patient is an 80-year-old male with past medical history of pneumonia, atrial fibrillation on Eliquis, hypertension, gout, hyperlipidemia, CHF, allergic rhinitis, dementia, neuropathy, CAD, GERD, BPH, anemia who presents emergency department for evaluation of sons expressed concern for decreased urinary output since yesterday evening as per HPI. Overall patient is well-appearing. He offers no physical complaints when asked, her patient's son at bedside his mentation is at his baseline. Will obtain CBC to evaluate for leukocytosis/ anemia, CMP and lipase to evaluate for abnormal electrolytes /abnormal renal function/ abnormal hepatic/biliary function, bladder scan and Urinalysis. Bladder scan reveals volume of 238 mL. Has a benign abdominal examination. No tenderness. No distention. Differential Diagnosis Differential Diagnoses: The differential diagnosis associated with the presentation includes (Urinary retention, BPH, urinary tract infection, JAMES ) Admission/Observation Consideration of admission/observation: Escalation of care including admission/observation considered Lab Data MDM Lab Attestation statement: I reviewed the patient's lab results. 04/25/25 19:19 04/26/25 02:49 Labs: Lab Results 04/25/25 04/25/25 04/26/25 Range/Units 19:19 21:58 02:23 WBC 8.4 (4.8-10.8) X10*3/uL RBC 3.96 L (4.60-5.80) X10*6/uL Hgb 10.3 L (14.0-18.0) g/dl Hct 32.9 L (42.0-52.0) % MCV 83.1 (80.0-98.0) fL MCH 26.0 L (27.0-33.0) pg MCHC 31.3 (31.0-36.0) g/dl RDW 16.6 H (11.0-16.0) % Plt Count 152 L (160-400) X10*3/uL MPV 11.0 (9.4-12.4) fL Immature Gran % (Auto) 0.4 (0.0-0.4) % Neut % (Auto) 73.0 (45-73) % Lymph % (Auto) 15.1 L (20-40) % [place] % (Auto) 8.1 (2-11) % Eos % (Auto) 2.7 (0-4) % Baso % (Auto) 0.7 (0-2) % Lymph # (Auto) 1.3 (1.2-4.9) X10*3/uL [place] # (Auto) 0.7 (0.1-1.2) X10*3/uL Eos # (Auto) 0.2 (0.0-0.4) X10*3/uL Baso # (Auto) 0.1 (0.0-0.2) X10*3/uL Abs Immat Gran (auto) 0.03 (0.00-0.03) X10*3/uL Absolute Neuts (auto) 6.2 (2.0-8.3) x10*3/uL Absolute Nucleated RBC 0.000 (0.0-0.012) X10*3/uL Nucleated RBC % (auto) 0.0 (0.0-0.2) /100WBC Sodium 139 (135-145) mmol/L Potassium 3.7 (3.3-5.1) mmol/L Chloride 101 (96-108) mmol/L Carbon Dioxide 25 (22-29) mmol/L Anion Gap 17 (12-20) BUN 40 H (9-16) mg/dL Creatinine 2.31 H (0.5-1.4) mg/dL Estim Creat Clear Calc 30.6 Estimated GFR 27 Random Glucose 302 H (60-115) mg/dL Calcium 8.7 (8.4-10.2) mg/dL Total Bilirubin 0.6 (0.0-1.0) mg/dL AST 24 (5-37) U/L ALT 14 (0-40) U/L Alkaline Phosphatase 97 (39-117) U/L Total Protein 7.0 (6.5-8.0) g/dL Albumin 3.6 (3.5-5.0) g/dL Urine Color Yellow Urine Appearance Clear Urine pH 6.0 (5.0-9.0) Ur Specific [place] 1.015 (1.005-1.025) Urine Protein Negative (Neg-Trace) mg/dL Urine Glucose (UA) >=1000 H (Negative) mg/dL Urine Ketones Negative (Negative) mg/dL Urine Blood Negative (Negative) Urine Nitrite Negative (Negative) Ur Leukocyte Esterase Negative (Negative) Urine RBC 0-2 (0-2) /HPF Urine WBC 0-5 (0-5) /HPF Ur Squamous Epith Cells 0-2 (0-2) /HPF Urine Bacteria None Seen (None Seen) Hyaline Casts 0-2 (0-2) /LPF Stool Occult Blood POSITIVE (NEGATIVE) 04/26/25 Range/Units 02:49 WBC (4.8-10.8) X10*3/uL RBC (4.60-5.80) X10*6/uL Hgb (14.0-18.0) g/dl Hct (42.0-52.0) % MCV (80.0-98.0) fL MCH (27.0-33.0) pg MCHC (31.0-36.0) g/dl RDW (11.0-16.0) % Plt Count (160-400) X10*3/uL MPV (9.4-12.4) fL Immature Gran % (Auto) (0.0-0.4) % Neut % (Auto) (45-73) % Lymph % (Auto) (20-40) % [place] % (Auto) (2-11) % Eos % (Auto) (0-4) % Baso % (Auto) (0-2) % Lymph # (Auto) (1.2-4.9) X10*3/uL [place] # (Auto) (0.1-1.2) X10*3/uL Eos # (Auto) (0.0-0.4) X10*3/uL Baso # (Auto) (0.0-0.2) X10*3/uL Abs Immat Gran (auto) (0.00-0.03) X10*3/uL Absolute Neuts (auto) (2.0-8.3) x10*3/uL Absolute Nucleated RBC (0.0-0.012) X10*3/uL Nucleated RBC % (auto) (0.0-0.2) /100WBC Sodium 140 (135-145) mmol/L Potassium 3.7 (3.3-5.1) mmol/L Chloride 102 (96-108) mmol/L Carbon Dioxide 26 (22-29) mmol/L Anion Gap 16 (12-20) BUN 40 H (9-16) mg/dL Creatinine 1.98 H (0.5-1.4) mg/dL Estim Creat Clear Calc 35.7 Estimated GFR 33 Random Glucose 232 H (60-115) mg/dL Calcium 8.9 (8.4-10.2) mg/dL Total Bilirubin (0.0-1.0) mg/dL AST (5-37) U/L ALT (0-40) U/L Alkaline Phosphatase (39-117) U/L Total Protein (6.5-8.0) g/dL Albumin (3.5-5.0) g/dL Urine Color Urine Appearance Urine pH (5.0-9.0) Ur Specific [place] (1.005-1.025) Urine Protein (Neg-Trace) mg/dL Urine Glucose (UA) (Negative) mg/dL Urine Ketones (Negative) mg/dL Urine Blood (Negative) Urine Nitrite (Negative) Ur Leukocyte Esterase (Negative) Urine RBC (0-2) /HPF Urine WBC (0-5) /HPF Ur Squamous Epith Cells (0-2) /HPF Urine Bacteria (None Seen) Hyaline Casts (0-2) /LPF Stool Occult Blood (NEGATIVE) Radiology Impression Discussion of test interpretation with radiology: I have reviewed the radiologist's reading. Radiologist Impression: CT abdomen and pelvis without contrast Comparison: None Findings: Small hiatal hernia. Atelectasis. Small left pleural effusion. Gynecomastia. Cardiomegaly without significant pericardial effusion. Coronary artery calcifications. Atrophic pancreas. Bilateral perinephric stranding, nonspecific. No urolithiasis or hydronephrosis. Radiopaque 1.3 cm focus in the proximal stomach, question ingested foreign body, should be correlated clinically. No bowel obstruction. Large rectal stool burden with mural thickening and presacral stranding, concerning proctitis. Large colonic stool burden. No bowel obstruction. Fat containing umbilical hernia. Fat containing inguinal hernias. Prostatomegaly noted. Normal appendix. Mildly distended bladder. Osteopenia with diffuse multilevel spondylosis. Multilevel Schmorl's nodes. Thoracic diffuse idiopathic skeletal hyperostosis. Focal spondylosis at L5-S1. IMPRESSION: 1. Findings consistent with proctitis. 2. Large colorectal stool burden. 3. Question ingested foreign body as described. Independent Historian Clinical information obtained from an independent historian. History obtained from or confirmed by: Other (Son) External Record Review External record reviewed: Inpatient record and Outpatient record Chronic Conditions Patient?s care impacted by: Other (See narrative above) Discharge Plan Discharge Clinical Impression: Acute urinary retention, Constipation Patient Disposition: Home, Self-Care Instructions: Constipation (ED), Bragg Catheter Placement and Care (ED), How to Change a Catheter Drainage Bag (DC) Additional Instructions: Patient was found to be retaining urine in his bladder today. He was unable to urinate sufficiently to empty his bladder. A Bragg catheter needed to be placed. Please follow the instructions regarding Bragg catheter care and drainage bag. [facility] will be contacting you within 2 business?days after being discharged from the Emergency?Department.? During this?phone call, they will inform you when your follow up appointment will be scheduled. If you have not received a call from [facility] after 2 business?days, please call the?office at [phone]. Additionally, he is noted to be constipated. We attempted to give an enema in the emergency department with only small effect. Please encourage him to utilize the bathroom at least 2-3 times daily over the next few days to push for a bowel movement. Additionally have sent a prescription for MiraLax to take daily to help promote stool passage. You may return to emergency department any new or worsening symptoms or concerns Prescriptions: New polyethylene glycol 3350 [Miralax] 17 gram/dose powder 17 g PO DAILY Qty: 119 0RF No Action Eliquis 5 mg tablet 5 mg PO BID donepezil 10 mg tablet 1 tab PO BEDTIME CertaVite Senior 0.4-300-250 mg-mcg-mcg tablet 1 tab PO DAILY atorvastatin [Lipitor] 40 mg tablet 40 mg PO BEDTIME Qty: 30 0RF metoprolol tartrate 100 mg tablet 100 mg PO BID memantine 10 mg tablet 10 mg PO BID allopurinol 100 mg tablet 50 mg PO DAILY (DME) lancets [Lancets,Ultra Thin] Misc See Rx Instructions .Route Qty: 100 0RF Rx Instructions: As directed cetirizine 10 mg tablet 10 mg PO DAILY magnesium oxide 250 mg magnesium tablet 250 mg PO DAILY isosorbide mononitrate 60 mg Tablet Extended Release 24 Hr 60 mg PO DAILY Qty: 90 0RF Protocol: Hold for SBP< HOLD for SBP < : 90 aspirin 81 mg Tablet,Chewable 81 mg PO DAILY Qty: 60 0RF tamsulosin [Flomax] 0.4 mg capsule 0.4 mg PO BEDTIME Qty: 60 0RF insulin asp prt-insulin aspart [Novolog Mix 70-30 U-100 Insuln] 100 unit/mL (70-30) solution 76 unit subcut BIDWM Rx Instructions: INJECT 76 UNITS SUBCUTANEOUSLY TWICE DAILY WITH BREAKFAST AND WITH DINNER dapagliflozin propanediol [Farxiga] 5 mg tablet 5 mg PO DAILY gabapentin 800 mg tablet 400 mg PO BID Qty: 60 0RF bumetanide 1 mg Tablet 2 mg PO DAILY Qty: 180 0RF Protocol: Hold for SBP< HOLD for SBP < : 90 amlodipine 2.5 mg tablet 2.5 mg PO QAM omeprazole 20 mg capsule,delayed release(DR/EC) 20 mg PO BID@0630,1630 sucralfate 1 gram tablet 1 g PO TIDAC diphenhydramine HCl [Nell-Dryl] 25 mg tablet 12.5 mg PO BEDTIME PRN (Reason: Allergy Symptoms) (DME) insulin syringe-needle U-100 1 mL 31 gauge x 5/16 syringe See Rx Instructions subcut TID Qty: 10 Rx Instructions: As directed Referrals: [facility] [Provider Group] Print Language: Unable To Collect
[2025-04-25 18:54] VITALS: BP 108/66; PULSE 50; RESP 14; TEMP 36.1; O2SAT 94
[2025-04-25 19:25] LABS: Basophils Absolute Auto 0.1 X10*3/uL (0.0-0.2); Basophils Percent Auto 0.7 % (0-2); Eosinophils Absolute Auto 0.2 X10*3/uL (0.0-0.4); Eosinophils Percent Auto 2.7 % (0-4); Hematocrit 32.9 % (42.0-52.0); Hemoglobin 10.3 g/dl (14.0-18.0); Imm Gran Abs Auto 0.03 X10*3/uL (0.00-0.03); Imm Gran Pct Auto 0.4 % (0.0-0.4); Lymphocytes Absolute Auto 1.3 X10*3/uL (1.2-4.9); Lymphocytes Percent Auto 15.1 % (20-40); MANUAL DIFF FLAG NO; Mean Corpuscular HGB Conc 31.3 g/dl (31.0-36.0); Mean Corpuscular Volume 83.1 fL (80.0-98.0); Monocytes Absolute Auto 0.7 X10*3/uL (0.1-1.2); Monocytes Percent Auto 8.1 % (2-11); Neutrophils Absolute Auto 6.2 x10*3/uL (2.0-8.3); Platelet Count 152 X10*3/uL (160-400); Red Blood Count 3.96 X10*6/uL (4.60-5.80); Red Cell Distribution Width 16.6 % (11.0-16.0); White Blood Count 8.4 X10*3/uL (4.8-10.8)
--- OUTSIDE RECORDS SUMMARY | 2025-04-25 19:40 | XMS_ITS | Encounter Summary ---
Author Organization [facility] Address [address] [place] [address] Care Team Providers Care Director Social Welfare Name Role Phone Kathy Villafana MD Primary Care Provider [phone] Encounter Details Date Type Department Care Team ([facility] Contact Info) Description 05/22/2023 Abstract [facility] [address] [place], [place] [phone] Tr Tay DDS [address] [place], [place] [phone] Social History Tobacco Use Types Packs/Day Years [...] Upcoming Encounters Date Type Department Care Team ([facility] Contact Info) Description 05/06/2025 3:30 PM EDT Office Visit [facility] [address] [place] [address] Kathy Villafana MD [address] [place] [address] documented as of this encounter Visit Diagnoses Not on filedocumented in this encounter Additional Health Concerns Assessment Noted Time PHQ-9 Depression Total Score: 0 01/22/20 23 3:42 PM EST documented as of this encounter Care Teams Director Social Welfare Relationship Specialty Start Date End Date Kathy Villafana MD [address] [place] [address] PCP - General Family Medicine 08/05/21 [facility] 12/04/24 Corinne BROOKSA 01/15/25 documented as of this encounter
[2025-04-25 19:41] LABS: Alanine Aminotransferase 14 U/L (0-40); Albumin Level 3.6 g/dL (3.5-5.0); Alkaline Phosphatase 97 U/L (39-117); Anion Gap 17 (12-20); Aspartate Amino Transferase 24 U/L (5-37); Bilirubin Total 0.6 mg/dL (0.0-1.0); Blood Urea Nitrogen 40 mg/dL (9-16); Calcium 8.7 mg/dL (8.4-10.2); Carbon Dioxide 25 mmol/L (22-29); Chloride 101 mmol/L (96-108); Creatinine Clr Calc Pharmacy 30.6; Estimated Glomerular Filt Rate 27; Glucose Random 302 mg/dL (60-115); Potassium 3.7 mmol/L (3.3-5.1); Sodium 139 mmol/L (135-145)
--- NOTE | 2025-04-25 21:13 | PC.NURSE ---
Report received and care assumed at 1900. The pt remains alert, oriented to self and minimally verbal. He does not appear to display any outward s/s of discomfort at this time. Son and DIL to bedside inquiring about what all has been done thus far, educated on need for UA. Son attempted to assist the pt void by providing verbal encouragement and holding a urinal in place which he states is usually enough however this time the pt was unable to void. Family provided with options and potential next steps as they expressed their concern surrounding the pt's weakness over the past few days and his inability to stand/ambulate with 1 assist which is his baseline. Family adement that they do not want the patient to go to STR/[facility] unless it is an absolute last resort and ask that we do whatever we can to get him better. RN spoke with PRESTON to make her aware of staff's failed attempts at obtaining a UA and the families willingness for the pt to be straight cathed for a urine sample, per [employer] case to be discussed by MD. RN to hold off on placement of catheter until the case is discussed to determine whether to place straight cath vs montelongo
[2025-04-25 21:50] VITALS: BP 114/53; PULSE 66; RESP 16; TEMP 35.6; O2SAT 95
--- NOTE | 2025-04-25 21:57 | PC.NURSE ---
RN and EDTs to bedside for elvin care s/p bowel incontinence. The pt was able to follow commands and independently roll himself from side to side. While staff providing elvin care, EDT observed what appeared to be blood in the pt's stool and bedside occult completed with what appeared to be positive results, PRESTON notified and new orders entered. The pt is well appearing, remains with baseline presentation since assumption of care at 1900.
[2025-04-25 22:09] LABS: OBS Int Ctl Valid YES
[2025-04-25 22:11] LABS: OBS1 POSITIVE (NEGATIVE)
[2025-04-25] MEDS: 0.9 % Sodium Chloride 1,000 ML 999 ML IV (22:23)
[2025-04-25 23:18] VITALS: BP 123/53; PULSE 52; RESP 16; TEMP 36.6; O2SAT 95
[2025-04-25] MEDS: Mineral OiL enema 133 ML ENEMA PR (23:39)
[2025-04-26 02:16] VITALS: BP 140/55; PULSE 59; RESP 20; O2SAT 99
[2025-04-26 02:29] LABS: Appearance Urine Clear; Color Urine Yellow; Glucose Urine UA >=1000 mg/dL (Negative); Leukocyte Esterase Urine Negative (Negative); Nitrite Urine Negative (Negative); Specific Gravity - Urine 1.015 (1.005-1.025); UMIC TRIGGER UACC YES; Urine Blood Negative (Negative); Urine Ketones Negative (Negative); Urine Protein Negative (Neg-Trace)
[2025-04-26 02:36] LABS: Bacteria Urine None Seen (None Seen); Hyaline Casts Urine 0-2 /LPF (0-2); RBC Urine 0-2 /HPF (0-2); Squamous Epithelial Cell Urine 0-2 /HPF (0-2); WBC Urine 0-5 /HPF (0-5)
[2025-04-26 03:07] LABS: Anion Gap 16 (12-20); Blood Urea Nitrogen 40 mg/dL (9-16); Calcium 8.9 mg/dL (8.4-10.2); Carbon Dioxide 26 mmol/L (22-29); Chloride 102 mmol/L (96-108); Creatinine Clr Calc Pharmacy 35.7; Estimated Glomerular Filt Rate 33; Glucose Random 232 mg/dL (60-115); Potassium 3.7 mmol/L (3.3-5.1); Sodium 140 mmol/L (135-145)
--- NOTE | 2025-04-26 03:36 | PC.NURSE ---
RN spoke with family for the fourth time tonight. DIL is aware of plan for discharge home with montelongo catheter in place, RN reviewed dc instructions via phone. Ambulance transport being booked at the moment
[2025-04-26 05:24] VITALS: BP 123/78; PULSE 72; RESP 18; TEMP 36.8; O2SAT 96
== END 2025-04-26 05:25 | disposition home or self-care (01) ==
PROVIDERS: Nurse Practitioner Family; Emergency Provider Internal Medicine
DX: K59.00 Constipation, unspecified (principal); R33.9 Retention of urine, unspecified; K44.9 Diaphragmatic hernia without obstruction or gangrene; J98.11 Atelectasis; J90 Pleural effusion, not elsewhere classified; E11.9 Type 2 diabetes mellitus without complications; I10 Essential (primary) hypertension; E78.5 Hyperlipidemia, unspecified; I48.91 Unspecified atrial fibrillation; Z79.01 Long term (current) use of anticoagulants; Z79.02 Long term (current) use of antithrombotics/antiplatelets; Z79.82 Long term (current) use of aspirin; Z79.4 Long term (current) use of insulin
CPT/HCPCS: 36415; 51702; 51798; 74176; 80048; 80053; 81001; 82272; 85025; 96360; 96361; 99285

== ENCOUNTER → 2025-04-25 21:20 | Outpatient (BNV) | payer OTHER, SELFPAY | PROVIDERS: Emergency Provider Internal Medicine; Visit Provider Radiology Diagnostic Radiology | DX: K56.41 Fecal impaction (principal) | CPT/HCPCS: 74176 ==

== ENCOUNTER 2025-04-30 17:34 | Emergency (ER) | payer OTHER, SELFPAY ==
[2025-04-30 17:53] VITALS: BP 132/55; PULSE 63; RESP 17; TEMP 36.7; O2SAT 95; BMI 30.3
--- OUTSIDE RECORDS SUMMARY | 2025-04-30 18:27 | XMS_ITS | Encounter Summary ---
Author Organization [facility] Address [address] [place] [address] Care Team Providers Care Tightening Machine Operator Name Role Phone Kathy Villafana MD Primary Care Provider [phone] Encounter Details Date Type Department Care Team (Late Contact Info) Description 05/22/2023 Abstract [facility] [address] [place], [place] [phone] Tr Tay DDS [address] [place], [place] [phone] Social History Tobacco Use Types Packs/Day Years [...] Upcoming Encounters Date Type Department Care Team ([facility] Contact Info) Description 05/06/2025 3:30 PM EDT Office Visit [facility] [address] [place] [address] Kathy Villafana MD [address] [place] [address] documented as of this encounter Visit Diagnoses Not on filedocumented in this encounter Additional Health Concerns Assessment Noted Time PHQ-9 Depression Total Score: 0 01/22/20 23 3:42 PM EST documented as of this encounter Care Teams Tightening Machine Operator Relationship Specialty Start Date End Date Kathy Villafana MD [address] [place] [address] PCP - General Family Medicine 08/05/21 [facility] 12/04/24 Corinne BROOKSA 01/15/25 documented as of this encounter
--- NOTE | 2025-04-30 18:40 | ED.MALEGU ---
HPI - Male Genitourinary General Chief complaint: Urogenital-Male Stated complaint: UNABLE TO HEAR CMED Time Seen by Provider: 04/30/25 18:39 Source: patient and family Mode of arrival: wheelchair Limitations: no limitations History of Present Illness ED Provider: HPI Narrative: Patient is brought by family for having a rash of the glans. Patient is uncircumcised had acute urinary retention and Bragg catheter was placed last week now he noticed irritation at the penis along with whitish discharge around the glans no fever no chills Related Data Home Medications ?Medication ?Instructions ?Recorded ?Confirmed apixaban 5 mg tablet (Eliquis) 5 mg PO BID 09/05/21 03/08/25 donepezil 10 mg tablet 1 tab PO BEDTIME 09/05/21 03/08/25 uldmrsla-zcf-ibrhc acid 0.4 1 tab PO DAILY 09/05/21 03/08/25 mg-lycopene 300 mcg-lutein 250 mcg tablet (CertaVite Senior) allopurinol 100 mg tablet 50 mg PO DAILY gout pain 10/07/21 03/08/25 insulin syringe-needle U-100 1 mL #10 ea 12/22/21 03/08/25 31 gauge x /16 memantine 10 mg tablet 10 mg PO BID 05/08/22 03/08/25 metoprolol tartrate 100 mg tablet 100 mg PO BID 05/08/22 03/08/25 cetirizine 10 mg tablet 10 mg PO DAILY congestion 08/17/23 03/08/25 omeprazole 20 mg capsule,delayed 20 mg PO BID@0630,1630 05/17/24 03/08/25 release sucralfate 1 gram tablet 1 g PO TIDAC 05/17/24 03/08/25 magnesium oxide 250 mg PO DAILY 11/25/24 03/08/25 insulin aspar prt-insulin aspart 76 unit subcut BIDWM 12/24/24 03/08/25 100 unit/mL (70-30) subcutaneous soln (Novolog Mix 70-30 U-100 Insuln) diphenhydramine HCl 25 mg tablet 12.5 mg PO BEDTIME PRN Allergy 01/08/25 03/08/25 (Nell-Dryl) Symptoms dapagliflozin propanediol 5 mg 5 mg PO DAILY 02/27/25 03/08/25 tablet (Farxiga) amlodipine 2.5 mg tablet 2.5 mg PO QAM 03/08/25 03/08/25 Previous Rx's ?Medication ?Instructions ?Recorded atorvastatin 40 mg tablet (Lipitor) 40 mg PO BEDTIME #30 tabs 09/09/21 lancets (Lancets,Ultra Thin) #100 ea 10/21/21 aspirin 81 mg chewable tablet 81 mg PO DAILY #60 tabs 12/03/24 isosorbide mononitrate 60 mg 60 mg PO DAILY #90 tabs 12/03/24 tablet,extended release 24 hr tamsulosin 0.4 mg capsule (Flomax) 0.4 mg PO BEDTIME #60 caps 12/03/24 bumetanide 1 mg tablet 2 mg PO DAILY #180 tabs 03/02/25 gabapentin 800 mg tablet 400 mg (1/2 x 800 mg) PO BID #60 03/02/25 tabs polyethylene glycol 3350 17 17 g PO DAILY #119 grams 04/26/25 gram/dose oral powder (Miralax) Allergies Allergy/AdvReac Type Severity Reaction Status Date / Time No Known Allergies Allergy Verified 04/30/25 17:58 Review of Systems Review of Systems: Yes all other systems are reviewed and are negative PMFSH Past Medical History Medical History Seizure CKD stage 3b, GFR 30-44 ml/min CHF exacerbation Chronic atrial fibrillation Diabetes mellitus Alzheimer's dementia Acute hypoxic respiratory failure Pneumonia Pneumonia Acute respiratory failure Hypoxia CAD (coronary artery disease) Trash foot Diabetic foot infection Heart failure with preserved ejection fraction HLD (hyperlipidemia) Atrial fibrillation NSTEMI (non-ST elevated myocardial infarction) Kidney failure Diabetes HTN (hypertension) Surgical History No pertinent past surgical history Family History Family History Father No problems noted. Mother No problems noted. Social History Social History Household Members: Family and Children Household Members Other:: sons and daughter in law Housing: House Do you presently have visiting nurse or other home services: Yes Unable to assess alcohol history related to: Unable to respond Alcohol intake: former Patient Tobacco Use Status: Never used Tobacco e-Cigarette/Vaping Use: Never Used Second Hand Smoke Exposure: No Advance Directives: Yes Advance Directives on File: Yes Advance Directives Date on File: 09/06/21 Do you have a plan to hurt others: No Plan service: No Current occupational status: retired Physical Exam Vital Signs: Vital Signs: Last Vital Signs Temp 97.8 F 05/01/25 00:10 Pulse 60 05/01/25 00:10 Resp 16 05/01/25 00:10 BP 140/86 H 05/01/25 00:10 Pulse Ox 98 05/01/25 00:10 O2 Del Method Room Air 05/01/25 00:10 BMI result Body Mass Index 30.3 Appearance: Alert. Oriented X2-3. No acute distress. Bed-bound Eyes: PERRLA, No Nystagmus ENT: Pharynx normal. Oral Mucosa moist Neck: Normal inspection. Neck supple. CVS: Normal heart rate and rhythm. Pulses normal. Respiratory: No respiratory distress. Equal air entry bilateral, no wheezing/rales/rhonchi Abdomen: Soft and nontender. Bowel sounds are present, no mass palpable, no CVA tenderness : Yeast on the glans surrounding erythema Skin: Skin warm and dry. Normal skin color. Normal skin turgor. Extremities: No lower extremity edema. No calf tenderness Neuro: Oriented X 3. No motor deficit. No sensory deficit.No cerebellar signs , cranial nerves II-XII intact Medications Administered Discontinued Medications Generic Name Dose Route Start Last Admin Trade Name Freq PRN Reason Stop Dose Admin Clotrimazole 1 appl 04/30/25 18:52 04/30/25 19:19 Clotrimazole 1 % Cream 15 Gm Tube TOPICAL 04/30/25 18:53 1 appl ONCE ONE Administration Protocol Medical Decision Making Medical Decision Making MDM Narrative: Patient has indwelling Bragg catheter and comes here for rash around the glans area noted to have yeast infection also noted that patient has had slightly elevated creatinine patient was given p.o. fluids in the ER advised to continue Lab Data MDM Lab Attestation statement: I reviewed the patient's lab results. 04/30/25 19:47 04/30/25 19:30 Labs: Lab Results 06/05/25 06/05/25 Range/Units 19:30 19:47 WBC 8.1 (4.8-10.8) X10*3/uL RBC 3.93 L (4.60-5.80) X10*6/uL Hgb 10.2 L (14.0-18.0) g/dl Hct 33.5 L (42.0-52.0) % MCV 85.2 (80.0-98.0) fL MCH 26.0 L (27.0-33.0) pg MCHC 30.4 L (31.0-36.0) g/dl RDW 17.0 H (11.0-16.0) % Plt Count 173 (160-400) X10*3/uL MPV 12.2 (9.4-12.4) fL Immature Gran % (Auto) 0.4 (0.0-0.4) % Neut % (Auto) 66.6 (45-73) % Lymph % (Auto) 19.2 L (20-40) % [place] % (Auto) 9.3 (2-11) % Eos % (Auto) 3.9 (0-4) % Baso % (Auto) 0.6 (0-2) % Lymph # (Auto) 1.6 (1.2-4.9) X10*3/uL [place] # (Auto) 0.8 (0.1-1.2) X10*3/uL Eos # (Auto) 0.3 (0.0-0.4) X10*3/uL Baso # (Auto) 0.1 (0.0-0.2) X10*3/uL Abs Immat Gran (auto) 0.03 (0.00-0.03) X10*3/uL Absolute Neuts (auto) 5.4 (2.0-8.3) x10*3/uL Absolute Nucleated RBC 0.000 (0.0-0.012) X10*3/uL Nucleated RBC % (auto) 0.0 (0.0-0.2) /100WBC Sodium 137 (135-145) mmol/L Potassium 4.1 (3.3-5.1) mmol/L Chloride 99 (96-108) mmol/L Carbon Dioxide 26 (22-29) mmol/L Anion Gap 16 (12-20) BUN 41 H (9-16) mg/dL Creatinine 2.48 H (0.5-1.4) mg/dL Estim Creat Clear Calc 30.1 Estimated GFR 25 Random Glucose 315 H (60-115) mg/dL Calcium 9.1 (8.4-10.2) mg/dL Magnesium 2.6 (1.6-2.6) mg/dL Total Bilirubin 0.7 (0.0-1.0) mg/dL AST 31 (5-37) U/L ALT 12 (0-40) U/L Alkaline Phosphatase 99 (39-117) U/L Total Protein 7.5 (6.5-8.0) g/dL Albumin 3.7 (3.5-5.0) g/dL Urine Color Yellow Urine Appearance Clear Urine pH 5.5 (5.0-9.0) Ur Specific [place] 1.020 (1.005-1.025) Urine Protein Trace (Neg-Trace) mg/dL Urine Glucose (UA) >=1000 H (Negative) mg/dL Urine Ketones Negative (Negative) mg/dL Urine Blood Large (3+) H (Negative) Urine Nitrite Negative (Negative) Ur Leukocyte Esterase Trace H (Negative) Urine RBC >20 H (0-2) /HPF Urine WBC 6-10 H (0-5) /HPF Ur Squamous Epith Cells 0-2 (0-2) /HPF Urine Bacteria None Seen (None Seen) Hyaline Casts 3-5 (0-2) /LPF Discharge Plan Discharge Clinical Impression: Balanitis Patient Disposition: Home, Self-Care Instructions: Balanitis (ED) Additional Instructions: Local care as advised Drink plenty of fluids Apply clotrimazole cream twice a day as given to you until heals completely Prescriptions: No Action Eliquis 5 mg tablet 5 mg PO BID donepezil 10 mg tablet 1 tab PO BEDTIME CertaVite Senior 0.4-300-250 mg-mcg-mcg tablet 1 tab PO DAILY atorvastatin [Lipitor] 40 mg tablet 40 mg PO BEDTIME Qty: 30 0RF metoprolol tartrate 100 mg tablet 100 mg PO BID memantine 10 mg tablet 10 mg PO BID allopurinol 100 mg tablet 50 mg PO DAILY (DME) lancets [Lancets,Ultra Thin] Misc See Rx Instructions .Route Qty: 100 0RF Rx Instructions: As directed cetirizine 10 mg tablet 10 mg PO DAILY magnesium oxide 250 mg magnesium tablet 250 mg PO DAILY isosorbide mononitrate 60 mg Tablet Extended Release 24 Hr 60 mg PO DAILY Qty: 90 0RF Protocol: Hold for SBP< HOLD for SBP < : 90 aspirin 81 mg Tablet,Chewable 81 mg PO DAILY Qty: 60 0RF tamsulosin [Flomax] 0.4 mg capsule 0.4 mg PO BEDTIME Qty: 60 0RF insulin asp prt-insulin aspart [Novolog Mix 70-30 U-100 Insuln] 100 unit/mL (70-30) solution 76 unit subcut BIDWM Rx Instructions: INJECT 76 UNITS SUBCUTANEOUSLY TWICE DAILY WITH BREAKFAST AND WITH DINNER dapagliflozin propanediol [Farxiga] 5 mg tablet 5 mg PO DAILY gabapentin 800 mg tablet 400 mg PO BID Qty: 60 0RF bumetanide 1 mg Tablet 2 mg PO DAILY Qty: 180 0RF Protocol: Hold for SBP< HOLD for SBP < : 90 amlodipine 2.5 mg tablet 2.5 mg PO QAM omeprazole 20 mg capsule,delayed release(DR/EC) 20 mg PO BID@0630,1630 sucralfate 1 gram tablet 1 g PO TIDAC diphenhydramine HCl [Nell-Dryl] 25 mg tablet 12.5 mg PO BEDTIME PRN (Reason: Allergy Symptoms) polyethylene glycol 3350 [Miralax] 17 gram/dose powder 17 g PO DAILY Qty: 119 0RF (DME) insulin syringe-needle U-100 1 mL 31 gauge x 5/16 syringe See Rx Instructions subcut TID Qty: 10 Rx Instructions: As directed Referrals: Bob Sawyer MD [Physician] - 05/26/25 (THIS IS AN APPT ALREADY [facility], CALL DR SAWYER OFFICE IF TIME UNKNOWN) Kathy Villafana MD [Physician] - Interventions: ED Discharge Assessment Last Done: 05/01/25 00:10 Discharge Date/Time: 05/01/25 00:10 Print Language: Unable To Collect
--- NOTE | 2025-04-30 19:13 | PC.NURSE ---
Pharmacy contacted for lotrimin dose, awaiting arrival
[2025-04-30] MEDS: Clotrimazole 1 % Cream 15 GM TUBE 1 APPL TOPICAL (19:19)
--- NOTE | 2025-04-30 19:37 | PC.NURSE ---
JILLIAN lav tube during blood draw x6 attempts; anna alegre MD aware, no further orders at this time; pt resting comfortably in bed, care ongoing.
[2025-04-30 19:51] LABS: MANUAL DIFF FLAG NO
[2025-04-30 19:52] LABS: Alanine Aminotransferase 12 U/L (0-40); Albumin Level 3.7 g/dL (3.5-5.0); Alkaline Phosphatase 99 U/L (39-117); Anion Gap 16 (12-20); Aspartate Amino Transferase 31 U/L (5-37); Bilirubin Total 0.7 mg/dL (0.0-1.0); Blood Urea Nitrogen 41 mg/dL (9-16); Calcium 9.1 mg/dL (8.4-10.2); Carbon Dioxide 26 mmol/L (22-29); Chloride 99 mmol/L (96-108); Creatinine Clr Calc Pharmacy 30.1; Estimated Glomerular Filt Rate 25; Glucose Random 315 mg/dL (60-115); Magnesium 2.6 mg/dL (1.6-2.6); Potassium 4.1 mmol/L (3.3-5.1); Sodium 137 mmol/L (135-145); Total Protein 7.5 g/dL (6.5-8.0)
[2025-04-30 19:54] LABS: Appearance Urine Clear; Basophils Absolute Auto 0.1 X10*3/uL (0.0-0.2); Basophils Percent Auto 0.6 % (0-2); Color Urine Yellow; Eosinophils Absolute Auto 0.3 X10*3/uL (0.0-0.4); Eosinophils Percent Auto 3.9 % (0-4); Glucose Urine UA >=1000 mg/dL (Negative); Hematocrit 33.5 % (42.0-52.0); Hemoglobin 10.2 g/dl (14.0-18.0); Imm Gran Abs Auto 0.03 X10*3/uL (0.00-0.03); Imm Gran Pct Auto 0.4 % (0.0-0.4); Leukocyte Esterase Urine Trace (Negative); Lymphocytes Absolute Auto 1.6 X10*3/uL (1.2-4.9); Lymphocytes Percent Auto 19.2 % (20-40); Mean Corpuscular HGB Conc 30.4 g/dl (31.0-36.0); Mean Corpuscular Volume 85.2 fL (80.0-98.0); Mean Platelet Volume 12.2 fL (9.4-12.4); Monocytes Absolute Auto 0.8 X10*3/uL (0.1-1.2); Monocytes Percent Auto 9.3 % (2-11); Neutrophils Absolute Auto 5.4 x10*3/uL (2.0-8.3); Neutrophils Percent Auto 66.6 % (45-73); Nitrite Urine Negative (Negative); PH 5.5 (5.0-9.0); Platelet Count 173 X10*3/uL (160-400); Red Blood Count 3.93 X10*6/uL (4.60-5.80); UMIC TRIGGER UACC YES; Urine Blood Large (3+) (Negative); Urine Ketones Negative (Negative); Urine Protein Trace mg/dL (Neg-Trace); White Blood Count 8.1 X10*3/uL (4.8-10.8)
[2025-04-30 19:56] LABS: Bacteria Urine None Seen (None Seen); RBC Urine >20 /HPF (0-2); Squamous Epithelial Cell Urine 0-2 /HPF (0-2); UACC Culture Trigger YES
[2025-04-30 20:49] VITALS: BP 134/62; PULSE 56; RESP 20; TEMP 36.4; O2SAT 98
[2025-04-30 22:31] VITALS: BP 131/63; PULSE 75; RESP 20; TEMP 36.6; O2SAT 97
[2025-05-01 00:10] VITALS: BP 140/86; PULSE 60; RESP 16; TEMP 36.6; O2SAT 98
== END 2025-05-01 00:10 | disposition home or self-care (01) ==
PROVIDERS: Emergency Provider Internal Medicine
DX: N48.1 Balanitis (principal); Z79.899 Other long term (current) drug therapy
CPT/HCPCS: 36415; 80053; 81001; 83735; 85025; 87086; 99283; 99284

== ENCOUNTER 2025-05-23 20:42 | Emergency (ER) | payer OTHER, SELFPAY ==
[2025-05-23 20:53] VITALS: BP 102/44; BP 123/64; PULSE 56; PULSE 66; RESP 14; O2SAT 95; O2SAT 99; BMI 31.2
[2025-05-23 20:54] LABS: Glucose, Whole Blood 389 mg/dL (60-115)
--- NOTE | 2025-05-23 20:59 | ECG_ITS ---
Test Reason : arrythmia Blood Pressure : */* mmHG Vent. Rate : 54 BPM Atrial Rate : * BPM P-R Int : * ms QRS Dur : 90 ms QT Int : 182 ms P-R-T Axes : * 5 0 degrees QTcB Int : 172 ms Atrial fibrillation with slow ventricular response Inferior infarct (cited on or before 20-Apr-2025) Abnormal ECG When compared with ECG of 20-Apr-2025 18:12, Nonspecific T wave abnormality now evident in Lateral leads Referred By: Gianna Bragg Electronically Signed By: EMERSON LIANG
[2025-05-23 21:24] LABS: MANUAL DIFF FLAG NO
[2025-05-23 21:25] LABS: Basophils Absolute Auto 0.1 X10*3/uL (0.0-0.2); Basophils Percent Auto 0.7 % (0-2); Eosinophils Absolute Auto 0.2 X10*3/uL (0.0-0.4); Eosinophils Percent Auto 1.8 % (0-4); Hematocrit 29.2 % (42.0-52.0); Imm Gran Abs Auto 0.03 X10*3/uL (0.00-0.03); Imm Gran Pct Auto 0.3 % (0.0-0.4); Lymphocytes Absolute Auto 1.4 X10*3/uL (1.2-4.9); Lymphocytes Percent Auto 13.2 % (20-40); Mean Corpuscular HGB Conc 30.8 g/dl (31.0-36.0); Mean Corpuscular Hemoglobin 25.2 pg (27.0-33.0); Mean Corpuscular Volume 81.8 fL (80.0-98.0); Mean Platelet Volume 11.3 fL (9.4-12.4); Monocytes Absolute Auto 0.7 X10*3/uL (0.1-1.2); Monocytes Percent Auto 6.7 % (2-11); Neutrophils Absolute Auto 8.4 x10*3/uL (2.0-8.3); Neutrophils Percent Auto 77.3 % (45-73); Platelet Count 227 X10*3/uL (160-400); Red Blood Count 3.57 X10*6/uL (4.60-5.80); White Blood Count 10.8 X10*3/uL (4.8-10.8)
[2025-05-23 21:26] LABS: Glucose, Whole Blood 368 mg/dL (60-115)
[2025-05-23 21:26] LABS: Venous Blood Gas Refer to POC result
[2025-05-23 21:26] LABS: Glucose, Whole Blood 346 mg/dL (60-115); VBG Base Excess 7.4 mmol/L; VBG HCO3 31 mmol/L (22-26); VBG pCO2 42 mmHg; VBG pH 7.48 (7.32-7.43); VBG pO2 48 mmHg
[2025-05-23 21:40] LABS: Beta-Hydroxybutyrate 0.18 mmol/L (0.02-0.27)
[2025-05-23 21:50] LABS: Glucose, Whole Blood 348 mg/dL (60-115)
[2025-05-23 21:52] LABS: Alanine Aminotransferase 13 U/L (0-40); Albumin Level 3.7 g/dL (3.5-5.0); Alkaline Phosphatase 108 U/L (39-117); Anion Gap 17 (12-20); Aspartate Amino Transferase 20 U/L (5-37); Bilirubin Total 0.5 mg/dL (0.0-1.0); Blood Urea Nitrogen 35 mg/dL (9-16); Calcium 8.9 mg/dL (8.4-10.2); Carbon Dioxide 26 mmol/L (22-29); Chloride 98 mmol/L (96-108); Creatinine Clr Calc Pharmacy 35.1; Estimated Glomerular Filt Rate 31; Glucose Random 407 mg/dL (60-115); Magnesium 2.3 mg/dL (1.6-2.6); Potassium 3.6 mmol/L (3.3-5.1); Sodium 137 mmol/L (135-145); Total Protein 7.2 g/dL (6.5-8.0)
[2025-05-23 22:12] LABS: Glucose, Whole Blood 325 mg/dL (60-115)
[2025-05-23 23:00] LABS: Glucose, Whole Blood 316 mg/dL (60-115)
[2025-05-23 23:02] LABS: Appearance Urine Turbid; Color Urine Yellow; Glucose Urine UA >=1000 mg/dL (Negative); Leukocyte Esterase Urine Large (3+) (Negative); Nitrite Urine Negative (Negative); PH 5.5 (5.0-9.0); Specific Gravity - Urine 1.015 (1.005-1.025); UMIC TRIGGER UACC YES; Urine Blood Large (3+) (Negative); Urine Ketones Negative (Negative); Urine Protein Trace mg/dL (Neg-Trace)
[2025-05-23 23:05] LABS: Bacteria Urine 1+ (None Seen); RBC Urine >20 /HPF (0-2); Squamous Epithelial Cell Urine 0-2 /HPF (0-2); UACC Culture Trigger YES; WBC Urine >50 /HPF (0-5)
--- NOTE | 2025-05-23 23:17 | ED.GENADULT ---
HPI - General Adult General Chief complaint: General Medical Stated complaint: hypoglycemia, high POC (547) Time Seen by Provider: 05/23/25 20:58 Source: patient and family Limitations: language barrier History of Present Illness ED Provider: Gianna Bragg PA-C HPI narrative: 80-year-old male with a history of insulin-dependent diabetes, hypertension, hyperlipidemia, known coronary artery disease, prior NSTEMI, gout, who presents with hypoglycemia. Family members state they were told the patient may have an infection given his blood sugars have been elevated at home over the past few days. They were instructed to increase his insulin. The patient typically takes 76 units of NovoLog twice a day and with meals. Overnight, they gave a total of 90 units. The family states the patient has not been sick recently, no cough or cold symptoms, no fever, no complaint of dysuria, no active nausea vomiting or diarrhea. Related Data Home Medications ?Medication ?Instructions ?Recorded ?Confirmed apixaban 5 mg tablet (Eliquis) 5 mg PO BID 09/05/21 03/08/25 donepezil 10 mg tablet 1 tab PO BEDTIME 09/05/21 03/08/25 irfqwule-tyk-luvix acid 0.4 1 tab PO DAILY 09/05/21 03/08/25 mg-lycopene 300 mcg-lutein 250 mcg tablet (CertaVite Senior) allopurinol 100 mg tablet 50 mg PO DAILY gout pain 10/07/21 03/08/25 insulin syringe-needle U-100 1 mL #10 ea 12/22/21 03/08/25 31 gauge x 5/16 memantine 10 mg tablet 10 mg PO BID 05/08/22 03/08/25 metoprolol tartrate 100 mg tablet 100 mg PO BID 05/08/22 03/08/25 cetirizine 10 mg tablet 10 mg PO DAILY congestion 08/17/23 03/08/25 omeprazole 20 mg capsule,delayed 20 mg PO BID@0630,1630 05/17/24 03/08/25 release sucralfate 1 gram tablet 1 g PO TIDAC 05/17/24 03/08/25 magnesium oxide 250 mg PO DAILY 11/25/24 03/08/25 insulin aspar prt-insulin aspart 76 unit subcut BIDWM 12/24/24 03/08/25 100 unit/mL (70-30) subcutaneous soln (Novolog Mix 70-30 U-100 Insuln) diphenhydramine HCl 25 mg tablet 12.5 mg PO BEDTIME PRN Allergy 01/08/25 03/08/25 (Nell-Dryl) Symptoms dapagliflozin propanediol 5 mg 5 mg PO DAILY 02/27/25 03/08/25 tablet (Farxiga) amlodipine 2.5 mg tablet 2.5 mg PO QAM 03/08/25 03/08/25 Previous Rx's ?Medication ?Instructions ?Recorded atorvastatin 40 mg tablet (Lipitor) 40 mg PO BEDTIME #30 tabs 09/09/21 lancets (Lancets,Ultra Thin) #100 ea 10/21/21 aspirin 81 mg chewable tablet 81 mg PO DAILY #60 tabs 12/03/24 isosorbide mononitrate 60 mg 60 mg PO DAILY #90 tabs 12/03/24 tablet,extended release 24 hr tamsulosin 0.4 mg capsule (Flomax) 0.4 mg PO BEDTIME #60 caps 12/03/24 bumetanide 1 mg tablet 2 mg PO DAILY #180 tabs 03/02/25 gabapentin 800 mg tablet 400 mg (1/2 x 800 mg) PO BID #60 03/02/25 tabs polyethylene glycol 3350 17 17 g PO DAILY #119 grams 04/26/25 gram/dose oral powder (Miralax) cephalexin 500 mg capsule 500 mg PO BID #14 caps 05/24/25 Allergies Allergy/AdvReac Type Severity Reaction Status Date / Time No Known Allergies Allergy Verified 05/23/25 20:56 Review of Systems Review of Systems: Yes all other systems are reviewed and are negative Constitutional: Constitutional: Denies fatigue and Denies fever(s) Cardiovascular: Cardiovascular: Denies chest pain and Denies dyspnea Respiratory: Respiratory: Denies cough and Denies dyspnea Gastrointestinal: Gastrointestinal: Denies abdominal pain, Denies nausea and Denies vomiting Endocrine: Endocrine: Denies fatigue PMFSH Past Medical History Attestation statement: The following information was validated with the patient. Medical History Seizure CKD stage 3b, GFR 30-44 ml/min CHF exacerbation Chronic atrial fibrillation Diabetes mellitus Alzheimer's dementia Acute hypoxic respiratory failure Pneumonia Pneumonia Acute respiratory failure Hypoxia CAD (coronary artery disease) Trash foot Diabetic foot infection Heart failure with preserved ejection fraction HLD (hyperlipidemia) Atrial fibrillation NSTEMI (non-ST elevated myocardial infarction) Kidney failure Diabetes HTN (hypertension) Surgical History No pertinent past surgical history Family History Family History Father No problems noted. Mother No problems noted. Social History Social History Household Members: Family and Children Household Members Other:: sons and daughter in law Housing: House Do you presently have visiting nurse or other home services: Yes Unable to assess alcohol history related to: Unable to respond Alcohol intake: former Patient Tobacco Use Status: Never used Tobacco e-Cigarette/Vaping Use: Never Used Second Hand Smoke Exposure: No Advance Directives: Yes Advance Directives on File: Yes Advance Directives Date on File: 09/06/21 Do you have a plan to hurt others: No Plan service: No Current occupational status: retired Physical Exam ED Vital Signs: Vital Signs - 24 hr 05/23/25 20:53 05/24/25 00:56 Temperature 97.5 F Pulse Rate 56 57 Respiratory Rate 14 14 Blood Pressure 123/64 117/46 L Pulse Oximetry 95 97 Oxygen Delivery Method Room Air Room Air BMI result Body Mass Index 31.2 Const Other: Alert Orientation/consciousness: patient oriented x3 Resp Effort & Inspection: normal respiratory effort Cardio Other: Normal peripheral perfusion Skin Other: Warm dry no rash Neuro General: patient oriented x3, no focal motor deficits and CN's II-XI intact bilaterally Psych Other: Cooperative Medications Administered Discontinued Medications Generic Name Dose Route Start Last Admin Trade Name Freq PRN Reason Stop Dose Admin Ceftriaxone Sodium 2 gm 05/23/25 23:08 05/23/25 23:43 Ceftriaxone Sodium 2 Gm Vial IVPUSH 05/23/25 23:09 2 gm ONCE ONE Administration Medical Decision Making Medical Decision Making MDM Narrative: 80-year-old male with a history of insulin-dependent diabetes, hypertension, hyperlipidemia, known coronary artery disease, prior NSTEMI, gout, who presents with hypoglycemia. Family members state they were told the patient may have an infection given his blood sugars have been elevated at home over the past few days. They were instructed to increase his insulin. The patient typically takes 76 units of NovoLog twice a day and with meals. Overnight, they gave a total of 90 units. The family states the patient has not been sick recently, no cough or cold symptoms, no fever, no complaint of dysuria, no active nausea vomiting or diarrhea. Problem: Diabetes, age History: Per patient's family primarily I have considered the following differential diagnoses: Insulin reaction Plan: It is clear that the patient received too much insulin. We will be screening basic labs and a urinalysis. He is stable at this point, we will continue to trend his point of care sugars until he stabilizes. The patient is also eating a meal. I have independently reviewed the following tests: Labs: No leukocytosis, no electrolyte abnormality, urine appears infected, at the time of discharge the final point of care was 162 Lab Data 05/23/25 21:19 05/23/25 21:19 Labs: Lab Results 05/23/25 05/23/25 05/23/25 Range/Units 20:51 21:04 21:19 WBC 10.8 (4.8-10.8) X10*3/uL RBC 3.57 L (4.60-5.80) X10*6/uL Hgb 9.0 L (14.0-18.0) g/dl Hct 29.2 L (42.0-52.0) % MCV 81.8 (80.0-98.0) fL MCH 25.2 L (27.0-33.0) pg MCHC 30.8 L (31.0-36.0) g/dl RDW 18.0 H (11.0-16.0) % Plt Count 227 D (160-400) X10*3/uL MPV 11.3 (9.4-12.4) fL Immature Gran % (Auto) 0.3 (0.0-0.4) % Neut % (Auto) 77.3 H (45-73) % Lymph % (Auto) 13.2 L (20-40) % Teller % (Auto) 6.7 (2-11) % Eos % (Auto) 1.8 (0-4) % Baso % (Auto) 0.7 (0-2) % Lymph # (Auto) 1.4 (1.2-4.9) X10*3/uL Teller # (Auto) 0.7 (0.1-1.2) X10*3/uL Eos # (Auto) 0.2 (0.0-0.4) X10*3/uL Baso # (Auto) 0.1 (0.0-0.2) X10*3/uL Abs Immat Gran (auto) 0.03 (0.00-0.03) X10*3/uL Absolute Neuts (auto) 8.4 H (2.0-8.3) x10*3/uL Absolute Nucleated RBC 0.000 (0.0-0.012) X10*3/uL Nucleated RBC % (auto) 0.0 (0.0-0.2) /100WBC VBG pH (7.32-7.43) VBG pCO2 mmHg VBG pO2 mmHg VBG HCO3 (22-26) mmol/L VBG O2 Saturation % VBG Base Excess mmol/L Sodium 137 (135-145) mmol/L Potassium 3.6 (3.3-5.1) mmol/L Chloride 98 (96-108) mmol/L Carbon Dioxide 26 (22-29) mmol/L Anion Gap 17 (12-20) BUN 35 H (9-16) mg/dL Creatinine 2.09 H (0.5-1.4) mg/dL Estim Creat Clear Calc 35.1 Estimated GFR 31 POC Glucose 389 H* 368 H* (60-115) mg/dL Random Glucose 407 H* (60-115) mg/dL Calcium 8.9 (8.4-10.2) mg/dL Magnesium 2.3 (1.6-2.6) mg/dL Total Bilirubin 0.5 (0.0-1.0) mg/dL AST 20 (5-37) U/L ALT 13 (0-40) U/L Alkaline Phosphatase 108 (39-117) U/L Total Protein 7.2 (6.5-8.0) g/dL Albumin 3.7 (3.5-5.0) g/dL Beta-Hydroxybutyrate 0.18 (0.02-0.27) mmol/L Urine Color Urine Appearance Urine pH (5.0-9.0) Ur Specific [place] (1.005-1.025) Urine Protein (Neg-Trace) mg/dL Urine Glucose (UA) (Negative) mg/dL Urine Ketones (Negative) mg/dL Urine Blood (Negative) Urine Nitrite (Negative) Ur Leukocyte Esterase (Negative) Urine RBC (0-2) /HPF Urine WBC (0-5) /HPF Ur Squamous Epith Cells (0-2) /HPF Urine Bacteria (None Seen) Hyaline Casts (0-2) /LPF 05/23/25 05/23/25 05/23/25 Range/Units 21:23 21:47 22:09 WBC (4.8-10.8) X10*3/uL RBC (4.60-5.80) X10*6/uL Hgb (14.0-18.0) g/dl Hct (42.0-52.0) % MCV (80.0-98.0) fL MCH (27.0-33.0) pg MCHC (31.0-36.0) g/dl RDW (11.0-16.0) % Plt Count (160-400) X10*3/uL MPV (9.4-12.4) fL Immature Gran % (Auto) (0.0-0.4) % Neut % (Auto) (45-73) % Lymph % (Auto) (20-40) % Teller % (Auto) (2-11) % Eos % (Auto) (0-4) % Baso % (Auto) (0-2) % Lymph # (Auto) (1.2-4.9) X10*3/uL Teller # (Auto) (0.1-1.2) X10*3/uL Eos # (Auto) (0.0-0.4) X10*3/uL Baso # (Auto) (0.0-0.2) X10*3/uL Abs Immat Gran (auto) (0.00-0.03) X10*3/uL Absolute Neuts (auto) (2.0-8.3) x10*3/uL Absolute Nucleated RBC (0.0-0.012) X10*3/uL Nucleated RBC % (auto) (0.0-0.2) /100WBC VBG pH 7.48 H (7.32-7.43) VBG pCO2 42 mmHg VBG pO2 48 mmHg VBG HCO3 31 H (22-26) mmol/L VBG O2 Saturation 72.0 % VBG Base Excess 7.4 mmol/L Sodium (135-145) mmol/L Potassium (3.3-5.1) mmol/L Chloride (96-108) mmol/L Carbon Dioxide (22-29) mmol/L Anion Gap (12-20) BUN (9-16) mg/dL Creatinine (0.5-1.4) mg/dL Estim Creat Clear Calc Estimated GFR POC Glucose 346 H 348 H 325 H (60-115) mg/dL Random Glucose (60-115) mg/dL Calcium (8.4-10.2) mg/dL Magnesium (1.6-2.6) mg/dL Total Bilirubin (0.0-1.0) mg/dL AST (5-37) U/L ALT (0-40) U/L Alkaline Phosphatase (39-117) U/L Total Protein (6.5-8.0) g/dL Albumin (3.5-5.0) g/dL Beta-Hydroxybutyrate (0.02-0.27) mmol/L Urine Color Urine Appearance Urine pH (5.0-9.0) Ur Specific [place] (1.005-1.025) Urine Protein (Neg-Trace) mg/dL Urine Glucose (UA) (Negative) mg/dL Urine Ketones (Negative) mg/dL Urine Blood (Negative) Urine Nitrite (Negative) Ur Leukocyte Esterase (Negative) Urine RBC (0-2) /HPF Urine WBC (0-5) /HPF Ur Squamous Epith Cells (0-2) /HPF Urine Bacteria (None Seen) Hyaline Casts (0-2) /LPF 05/23/25 05/23/25 05/23/25 Range/Units 22:54 22:56 23:48 WBC (4.8-10.8) X10*3/uL RBC (4.60-5.80) X10*6/uL Hgb (14.0-18.0) g/dl Hct (42.0-52.0) % MCV (80.0-98.0) fL MCH (27.0-33.0) pg MCHC (31.0-36.0) g/dl RDW (11.0-16.0) % Plt Count (160-400) X10*3/uL MPV (9.4-12.4) fL Immature Gran % (Auto) (0.0-0.4) % Neut % (Auto) (45-73) % Lymph % (Auto) (20-40) % Teller % (Auto) (2-11) % Eos % (Auto) (0-4) % Baso % (Auto) (0-2) % Lymph # (Auto) (1.2-4.9) X10*3/uL Teller # (Auto) (0.1-1.2) X10*3/uL Eos # (Auto) (0.0-0.4) X10*3/uL Baso # (Auto) (0.0-0.2) X10*3/uL Abs Immat Gran (auto) (0.00-0.03) X10*3/uL Absolute Neuts (auto) (2.0-8.3) x10*3/uL Absolute Nucleated RBC (0.0-0.012) X10*3/uL Nucleated RBC % (auto) (0.0-0.2) /100WBC VBG pH (7.32-7.43) VBG pCO2 mmHg VBG pO2 mmHg VBG HCO3 (22-26) mmol/L VBG O2 Saturation % VBG Base Excess mmol/L Sodium (135-145) mmol/L Potassium (3.3-5.1) mmol/L Chloride (96-108) mmol/L Carbon Dioxide (22-29) mmol/L Anion Gap (12-20) BUN (9-16) mg/dL Creatinine (0.5-1.4) mg/dL Estim Creat Clear Calc Estimated GFR POC Glucose 316 H 237 H (60-115) mg/dL Random Glucose (60-115) mg/dL Calcium (8.4-10.2) mg/dL Magnesium (1.6-2.6) mg/dL Total Bilirubin (0.0-1.0) mg/dL AST (5-37) U/L ALT (0-40) U/L Alkaline Phosphatase (39-117) U/L Total Protein (6.5-8.0) g/dL Albumin (3.5-5.0) g/dL Beta-Hydroxybutyrate (0.02-0.27) mmol/L Urine Color Yellow Urine Appearance Turbid Urine pH 5.5 (5.0-9.0) Ur Specific [place] 1.015 (1.005-1.025) Urine Protein Trace (Neg-Trace) mg/dL Urine Glucose (UA) >=1000 H (Negative) mg/dL Urine Ketones Negative (Negative) mg/dL Urine Blood Large (3+) H (Negative) Urine Nitrite Negative (Negative) Ur Leukocyte Esterase Large (3+) H (Negative) Urine RBC >20 H (0-2) /HPF Urine WBC >50 H (0-5) /HPF Ur Squamous Epith Cells 0-2 (0-2) /HPF Urine Bacteria 1+ (None Seen) Hyaline Casts 3-5 (0-2) /LPF 05/24/25 05/24/25 05/24/25 Range/Units 00:48 01:18 02:02 WBC (4.8-10.8) X10*3/uL RBC (4.60-5.80) X10*6/uL Hgb (14.0-18.0) g/dl Hct (42.0-52.0) % MCV (80.0-98.0) fL MCH (27.0-33.0) pg MCHC (31.0-36.0) g/dl RDW (11.0-16.0) % Plt Count (160-400) X10*3/uL MPV (9.4-12.4) fL Immature Gran % (Auto) (0.0-0.4) % Neut % (Auto) (45-73) % Lymph % (Auto) (20-40) % Teller % (Auto) (2-11) % Eos % (Auto) (0-4) % Baso % (Auto) (0-2) % Lymph # (Auto) (1.2-4.9) X10*3/uL Teller # (Auto) (0.1-1.2) X10*3/uL Eos # (Auto) (0.0-0.4) X10*3/uL Baso # (Auto) (0.0-0.2) X10*3/uL Abs Immat Gran (auto) (0.00-0.03) X10*3/uL Absolute Neuts (auto) (2.0-8.3) x10*3/uL Absolute Nucleated RBC (0.0-0.012) X10*3/uL Nucleated RBC % (auto) (0.0-0.2) /100WBC VBG pH (7.32-7.43) VBG pCO2 mmHg VBG pO2 mmHg VBG HCO3 (22-26) mmol/L VBG O2 Saturation % VBG Base Excess mmol/L Sodium (135-145) mmol/L Potassium (3.3-5.1) mmol/L Chloride (96-108) mmol/L Carbon Dioxide (22-29) mmol/L Anion Gap (12-20) BUN (9-16) mg/dL Creatinine (0.5-1.4) mg/dL Estim Creat Clear Calc Estimated GFR POC Glucose 184 H 187 H 183 H (60-115) mg/dL Random Glucose (60-115) mg/dL Calcium (8.4-10.2) mg/dL Magnesium (1.6-2.6) mg/dL Total Bilirubin (0.0-1.0) mg/dL AST (5-37) U/L ALT (0-40) U/L Alkaline Phosphatase (39-117) U/L Total Protein (6.5-8.0) g/dL Albumin (3.5-5.0) g/dL Beta-Hydroxybutyrate (0.02-0.27) mmol/L Urine Color Urine Appearance Urine pH (5.0-9.0) Ur Specific [place] (1.005-1.025) Urine Protein (Neg-Trace) mg/dL Urine Glucose (UA) (Negative) mg/dL Urine Ketones (Negative) mg/dL Urine Blood (Negative) Urine Nitrite (Negative) Ur Leukocyte Esterase (Negative) Urine RBC (0-2) /HPF Urine WBC (0-5) /HPF Ur Squamous Epith Cells (0-2) /HPF Urine Bacteria (None Seen) Hyaline Casts (0-2) /LPF 05/24/25 05/24/25 Range/Units 02:31 04:19 WBC (4.8-10.8) X10*3/uL RBC (4.60-5.80) X10*6/uL Hgb (14.0-18.0) g/dl Hct (42.0-52.0) % MCV (80.0-98.0) fL MCH (27.0-33.0) pg MCHC (31.0-36.0) g/dl RDW (11.0-16.0) % Plt Count (160-400) X10*3/uL MPV (9.4-12.4) fL Immature Gran % (Auto) (0.0-0.4) % Neut % (Auto) (45-73) % Lymph % (Auto) (20-40) % Teller % (Auto) (2-11) % Eos % (Auto) (0-4) % Baso % (Auto) (0-2) % Lymph # (Auto) (1.2-4.9) X10*3/uL Teller # (Auto) (0.1-1.2) X10*3/uL Eos # (Auto) (0.0-0.4) X10*3/uL Baso # (Auto) (0.0-0.2) X10*3/uL Abs Immat Gran (auto) (0.00-0.03) X10*3/uL Absolute Neuts (auto) (2.0-8.3) x10*3/uL Absolute Nucleated RBC (0.0-0.012) X10*3/uL Nucleated RBC % (auto) (0.0-0.2) /100WBC VBG pH (7.32-7.43) VBG pCO2 mmHg VBG pO2 mmHg VBG HCO3 (22-26) mmol/L VBG O2 Saturation % VBG Base Excess mmol/L Sodium (135-145) mmol/L Potassium (3.3-5.1) mmol/L Chloride (96-108) mmol/L Carbon Dioxide (22-29) mmol/L Anion Gap (12-20) BUN (9-16) mg/dL Creatinine (0.5-1.4) mg/dL Estim Creat Clear Calc Estimated GFR POC Glucose 194 H 162 H (60-115) mg/dL Random Glucose (60-115) mg/dL Calcium (8.4-10.2) mg/dL Magnesium (1.6-2.6) mg/dL Total Bilirubin (0.0-1.0) mg/dL AST (5-37) U/L ALT (0-40) U/L Alkaline Phosphatase (39-117) U/L Total Protein (6.5-8.0) g/dL Albumin (3.5-5.0) g/dL Beta-Hydroxybutyrate (0.02-0.27) mmol/L Urine Color Urine Appearance Urine pH (5.0-9.0) Ur Specific [place] (1.005-1.025) Urine Protein (Neg-Trace) mg/dL Urine Glucose (UA) (Negative) mg/dL Urine Ketones (Negative) mg/dL Urine Blood (Negative) Urine Nitrite (Negative) Ur Leukocyte Esterase (Negative) Urine RBC (0-2) /HPF Urine WBC (0-5) /HPF Ur Squamous Epith Cells (0-2) /HPF Urine Bacteria (None Seen) Hyaline Casts (0-2) /LPF Discharge Plan Discharge Clinical Impression: Hypoglycemia, Urinary tract infection Patient Disposition: Home, Self-Care Instructions: Urinary Tract Infection in Men (ED), Hypoglycemia in a Person with Diabetes (ED) Additional Instructions: The blood sugar normalized prior to discharge. You were also found to have a urinary tract infection. See home care instructions, take the cephalexin as directed. Need to take your insulin as directed, you should not manipulate your dosing without instruction by your primary care provider. Call to schedule a follow up appointment to have discussion about managing your diabetes. Prescriptions: New cephalexin 500 mg capsule 500 mg PO BID Qty: 14 0RF No Action Eliquis 5 mg tablet 5 mg PO BID donepezil 10 mg tablet 1 tab PO BEDTIME CertaVite Senior 0.4-300-250 mg-mcg-mcg tablet 1 tab PO DAILY atorvastatin [Lipitor] 40 mg tablet 40 mg PO BEDTIME Qty: 30 0RF metoprolol tartrate 100 mg tablet 100 mg PO BID memantine 10 mg tablet 10 mg PO BID allopurinol 100 mg tablet 50 mg PO DAILY (DME) lancets [Lancets,Ultra Thin] Misc See Rx Instructions .Route Qty: 100 0RF Rx Instructions: As directed cetirizine 10 mg tablet 10 mg PO DAILY magnesium oxide 250 mg magnesium tablet 250 mg PO DAILY isosorbide mononitrate 60 mg Tablet Extended Release 24 Hr 60 mg PO DAILY Qty: 90 0RF Protocol: Hold for SBP< HOLD for SBP < : 90 aspirin 81 mg Tablet,Chewable 81 mg PO DAILY Qty: 60 0RF tamsulosin [Flomax] 0.4 mg capsule 0.4 mg PO BEDTIME Qty: 60 0RF insulin asp prt-insulin aspart [Novolog Mix 70-30 U-100 Insuln] 100 unit/mL (70-30) solution 76 unit subcut BIDWM Rx Instructions: INJECT 76 UNITS SUBCUTANEOUSLY TWICE DAILY WITH BREAKFAST AND WITH DINNER dapagliflozin propanediol [Farxiga] 5 mg tablet 5 mg PO DAILY gabapentin 800 mg tablet 400 mg PO BID Qty: 60 0RF bumetanide 1 mg Tablet 2 mg PO DAILY Qty: 180 0RF Protocol: Hold for SBP< HOLD for SBP < : 90 amlodipine 2.5 mg tablet 2.5 mg PO QAM omeprazole 20 mg capsule,delayed release(DR/EC) 20 mg PO BID@0630,1630 sucralfate 1 gram tablet 1 g PO TIDAC diphenhydramine HCl [Nell-Dryl] 25 mg tablet 12.5 mg PO BEDTIME PRN (Reason: Allergy Symptoms) polyethylene glycol 3350 [Miralax] 17 gram/dose powder 17 g PO DAILY Qty: 119 0RF (DME) insulin syringe-needle U-100 1 mL 31 gauge x 5/16 syringe See Rx Instructions subcut TID Qty: 10 Rx Instructions: As directed Interventions: ED Discharge Assessment Last Done: 05/24/25 05:43 Discharge Date/Time: 05/24/25 05:46 Print Language: Unable To Collect
[2025-05-23] MEDS: cefTRIAXone sodium 2 GM VIAL IVPUSH (23:43)
[2025-05-23 23:52] LABS: Glucose, Whole Blood 237 mg/dL (60-115)
[2025-05-24 00:51] LABS: Glucose, Whole Blood 184 mg/dL (60-115)
[2025-05-24 00:56] VITALS: BP 117/46; PULSE 57; RESP 14; TEMP 36.4; O2SAT 97
[2025-05-24 01:23] LABS: Glucose, Whole Blood 187 mg/dL (60-115)
[2025-05-24 02:05] LABS: Glucose, Whole Blood 183 mg/dL (60-115)
[2025-05-24 02:34] LABS: Glucose, Whole Blood 194 mg/dL (60-115)
--- NOTE | 2025-05-24 02:34 | PC.NURSE ---
pt given sunbutter and jelly sandwich as well as orange juice, pt ate 100% of meal.
[2025-05-24 04:23] LABS: Glucose, Whole Blood 162 mg/dL (60-115)
--- NOTE | 2025-05-24 04:55 | PC.NURSE ---
Addendum entered by Monica Kilgore 05/24/25 04:56: Called pt son Hadley and gave d/c instructions over the phone, Hadley states he understands. Awaiting EMS transport. Will call Hadley once EMS arrives. Original Note: Called pt son Hadley and gave d/c instructions over thee jose carlos
[2025-05-24 05:43] VITALS: BP 112/62; PULSE 68; RESP 14; TEMP 36.6; O2SAT 95
--- NOTE | 2025-05-24 05:43 | PC.NURSE ---
EMS arrived to pick pt up. Hadley (son and health care proxy) was called. Hadley states he will be waiting for EMS to arrive.
== END 2025-05-24 05:46 | disposition home or self-care (01) ==
PROVIDERS: Physician Assistant Medical; Emergency Provider Emergency Medicine Emergency Medical Services
DX: E11.649 Type 2 diabetes mellitus with hypoglycemia without coma (principal); N39.0 Urinary tract infection, site not specified; I49.9 Cardiac arrhythmia, unspecified; I48.91 Unspecified atrial fibrillation; E11.9 Type 2 diabetes mellitus without complications; Z79.899 Other long term (current) drug therapy; Z79.4 Long term (current) use of insulin
CPT/HCPCS: 36415; 80053; 81001; 81003; 82010; 82803; 82947; 83735; 85025; 87086; 87088; 87147; 87186; 93005; 96374; 99284; J0696

== ENCOUNTER → 2025-05-23 20:59 | Outpatient (BNV) | payer OTHER, SELFPAY | PROVIDERS: Emergency Provider Emergency Medicine Emergency Medical Services; Visit Provider Internal Medicine | DX: I48.91 Unspecified atrial fibrillation (principal); I25.2 Old myocardial infarction | CPT/HCPCS: 93010 ==

== ENCOUNTER 2025-05-26 13:29 | Outpatient (AMB) | payer OTHER, SELFPAY ==
--- NOTE | 2025-05-26 13:31 | MHC.OFFVIS ---
Intake Visit Reasons: Urinary Retention Intake Note: Patient presents for follow up on urinary retention Urology meds: allopurinol, Tamsulosin Blood thinners :asprin Shipping Manager Required: Yes Accompanied by: Health Care Proxy Allergies No Known Allergies Allergy (Verified 05/26/25 13:39) HPI Comments Details: Venu is a pleasant [place]-speaking male. He is a patient of Dr. Thomas. He is seen for the following urologic conditions - lower urinary tract symptoms Recent hospital admission with retention 1100 cc Here for 4 week voiding trial Passed voiding trial Given Flomax and finasteride Lower urinary tract symptoms Hospital admission found to have urinary retention Placed on Flomax Background diabetes on insulin and other medications [facility] Medical History Seizure CKD stage 3b, GFR 30-44 ml/min CHF exacerbation Chronic atrial fibrillation Diabetes mellitus Alzheimer's dementia Acute hypoxic respiratory failure Pneumonia Pneumonia Acute respiratory failure Hypoxia CAD (coronary artery disease) Trash foot Diabetic foot infection Heart failure with preserved ejection fraction HLD (hyperlipidemia) Atrial fibrillation NSTEMI (non-ST elevated myocardial infarction) Kidney failure Diabetes HTN (hypertension) Surgical History No pertinent past surgical history Family History Father No problems noted. Mother No problems noted. Social History Household Members: Family and Children Household Members Other:: sons and daughter in law Housing: House Do you presently have visiting nurse or other home services: Yes Unable to assess alcohol history related to: Unable to respond Alcohol intake: former Patient Tobacco Use Status: Never used Tobacco e-Cigarette/Vaping Use: Never Used Second Hand Smoke Exposure: No Advance Directives Date on File: 09/06/21 service: No Current occupational status: retired Review of Systems Const Denies chills and Denies fever(s) Card Reports no additional complaints and Denies syncope Resp Denies cough GI Denies abdominal pain and Denies heartburn Reports as per HPI and Denies change in libido Neuro Denies syncope Psych Denies change in libido Endo Denies change in libido Physical Exam Const General: cooperative, healthy appearing, comfortable and no acute distress Orientation/consciousness: patient oriented x3 HEENT Face and sinus: Yes normal facial exam Mouth: moist mucous membranes Neck Neck: Yes normal visual inspection, Yes full ROM and Yes trachea midline Chest Chest palpation & inspection: normal inspection of the chest Resp Effort & Inspection: normal respiratory effort, able to speak in complete sentences and no respiratory distress GI Inspection: Yes normal to inspection Back/Spine/Pelvis Cervical Spine: normal cervical lordosis Thoracic/Lumbar Spine: thoracic and lumbar spine normal to inspection Skin General skin exam: no rashes or lesions noted Neuro General: patient oriented x3, gait normal, tone normal and moves all extremities Extrem General: Yes normal to inspection and Yes capillary refill normal Office Procedures Bladder/Catheter Procedure Details: Patient presents to office for voiding trial. 120mls sterile water instilled through catheter, patient tolerated well. Removed 16 fr montelongo catheter, patient tolerated removal well. Patient able to void approximately 120mls. Bladder scanned by MA. Patient will have visit with Dr. Sawyer as scheduled 28604-Fldzqrdveo of Bladder Procedure code (CPT) selection complete Post Void Residual Post Residual Void Post Void Residual (PVR): 0 22154-Rmto Void Residual by ultrasound Assessment & Plan Assessment & Plan (1) BPH w urinary obs/LUTS: Code(s): N40.1 - Benign prostatic hyperplasia with lower urinary tract symptoms; N13.8 - Other obstructive and reflux uropathy Category: Medical Plan Three-month follow-up check PVR Orders: Orders AMB Bladder/Catheter Procedure Today R33.9 - Retention of urine, unspecified AMB Urinalysis Automated Today Z13.9 - Encounter for screening, unspecified AMB Post Void Residual by ultrasound Today N13.8 - Other obstructive and reflux uropathy, N40.1 - Benign prostatic hyperplasia with lower urinary tract symptoms Medications: New finasteride 5 mg PO DAILY 90 tabs 0RF 90 days N13.8 - Other obstructive and reflux uropathy, N32.0 - Bladder-neck obstruction, N40.1 - Benign prostatic hyperplasia with lower urinary tract symptoms Changed From tamsulosin (Flomax) 0.4 mg PO BEDTIME 60 caps 0RF N13.8 - Other obstructive and reflux uropathy, N40.1 - Benign prostatic hyperplasia with lower urinary tract symptoms To tamsulosin (Flomax) 0.4 mg PO BEDTIME 90 caps 0RF 90 days N13.8 - Other obstructive and reflux uropathy, N40.1 - Benign prostatic hyperplasia with lower urinary tract symptoms Patient Instructions: This note is constructed using voice recognition software. While every effort has been made to ensure accuracy entry level account executive errors may have been included. Imaging studies, laboratory and physical exam results were discussed and reviewed in detail. No major barriers to patient understanding were identified. An opportunity to ask questions regarding the treatment plan was provided. All questions were answered. The patient expressed understanding and agreement with the above treatment plan. The patient is aware they should contact our office by phone for worsening of their current condition or the appearance of new urologic symptoms. Compliance is encouraged with any medications and followup testing that is ordered. It is a privilege to participate in the urologic care of your patient. If you have any questions or concerns regarding treatment for the above conditions, or other urologic issues, please do not hesitate to contact me. The office telephone contact is [phone]. Sincerely, Dr Bob Sawyer MD, LISBETH [facility] - Urology Compassionate Specialist Care for the Genitourinary System Coding Level of Care Code Est Pt Level 4 (05406) Diagnoses BPH w urinary obs/LUTS N40.1; N13.8 CPT Codes Bladder/Catheter Procedure - CPT: 98728-Nrmpuvtkgx of Bladder ([id number]) Post Residual Void - PVR CPT Code: 15945-Kzet Void Residual by ultrasound ([id number])
--- OUTSIDE RECORDS SUMMARY | 2025-05-26 14:40 | XMS_ITS | Continuity of Care Document ---
Author Name Fabio Woodard Address [address] [place] [id number] Organization Unknown Address [address] [place] [address] Medications No known medications Problems No known problems
--- OUTSIDE RECORDS SUMMARY | 2025-05-26 14:40 | XMS_ITS | Continuity of Care Document ---
Author Organization [facility] Address [address] [place] [id number] Care Team Providers Care Director Of Revenue Cycle Management Name Role Phone [facility] Primary Care Provider HIM CCA OTHER Assessment No assessment recorded. Plan of Treatment Reminders Order Date Submit Date Provider Last Modified By Organization Details Last Modified Time Details Appointments None recorded. Lab glucose, fingerstic k, blood 2024 025 [facility], [address] [place] [address], [id number] 21:39:18 glucose, fingerstic k, blood 2024 025 [facility], [address] [place] [address], [id number] 5 21:39:18 culture, urine 2024 025 [facility], [address] [place] [address], [place], [phone], 5 20:21:09 urinalysis , dipstick 2024 025 [facility], [address] [place] [address], [id number] 21:39:17 Referral None recorded. Procedures None recorded. Surgeries None recorded. Imaging None recorded. Medication Orders None recorded. Patient TargetsNo targets recorded. Patient InstructionsNo instructions recorded. Reason for Referral None Reported. Results Created Date Observation Date Name Description Value Unit Range Abnormal Flag Note LastModifiedBy Organization Detail LastModifiedTime Result Notes None recorded. Medical Equipment None Reported. Allergies No known drug allergies Medications Name Sig Start Date Stop Date Status Note LastModified by Organization Details LastModified Time medbox status USE DIRECTED active Not Available Not Available No t Available atorvastatin 40 mg tablet TAKE 1 TABLET BY MOUTH AT BEDTIME active Not Available Not Available No t Available gabapentin 600 mg tablet TAKE 1 TABLET BY MOUTH TWICE DAILY IN THE MORNING AND IN THE EVENING active Not Available Not Available No t Available ketoconazole 2 % shampoo APPLY TOPICALLY TO SCALP AND ALREDEDOR DE LAS OREJAS THEN RINSE TWICE A WEEK active Not Available Not Available No t Available cetirizine 10 mg tablet TAKE 1 TABLET BY MOUTH EVERY MORNING active Not Available Not Available No t Available metoprolol tartrate 100 mg tablet TAKE 1 TABLET BY MOUTH TWICE DAILY IN THE MORNING AND IN THE EVENING WITH FOOD active Not Available Not Available No t Available donepezil 10 mg tablet TAKE 1 TABLET BY MOUTH AT BEDTIME active Not Available Not Available No t Available sucralfate 1 gram tablet TAKE 1 TABLET BY MOUTH THREE TIMES DAILY IN THE MORNING, AT NOON, AND IN THE EVENING BEFORE MEALS active Not Available Not Available No t Available amlodipine 2.5 mg tablet active Not Available Not Available Not Available amlodipine 5 mg tablet TAKE 1/2 TABLET (2.5 MG) BY MOUTH EVERY DAY active Not Available Not Available No t Available allopurinol 100 mg tablet TAKE 1/2 TABLET BY MOUTH EVERY MORNING active Not Available Not Available No t Available triamcinolon e acetonide 0.1 % topical cream APPLY TOPICALLY TWICE DAILY active Not Available Not Available Not Available isosorbide mononitrate ER 60 mg tablet,exten ded release 24 hr TAKE 1 TABLET BY MOUTH EVERY DAY active Not Available Not Available No t Available tamsulosin 0.4 mg capsule TAKE 1 CAPSULE BY MOUTH DAILY AT BEDTIME active Not Available Not Available N ot Available gabapentin 800 mg tablet TAKE 1 TABLET BY MOUTH TWICE DAILY IN THE MORNING AND IN THE EVENING active Not Available Not Available No t Available benzonatate 100 mg capsule TAKE 1 CAPSULE BY MOUTH THREE TIMES A DAY IN THE MORNING, NOON, AND BEDTIME IF NEEDED FOR COUGH active Not Available Not Available No t Available doxycycline monohydrate 100 mg capsule TAKE 1 CAPSULE BY MOUTH TWICE A DAY active Not Available Not Available No t Available omeprazole 20 mg capsule,demetrio yed release TAKE 1 CAPSULE BY MOUTH TWICE DAILY IN THE MORNING AND IN THE EVENING active Not Available Not Available No t Available aspirin 81 mg chewable tablet TAKE 1 TABLET BY MOUTH EVERY DAY active Not Available Not Available No t Available bumetanide 1 mg tablet TAKE 1 TABLET BY MOUTH EVERY DAY active Not Available Not Available No t Available mupirocin 2 % topical ointment APPLY TO THE AFFECTED AREA(S) TWICE DAILY active Not Available Not Available Not Available cefuroxime axetil 500 mg tablet TAKE 1 TABLET BY MOUTH EVERY 12 HOURS active Not Available Not Available No t Available magnesium 250 mg (as magnesium oxide) tablet TAKE 1 TABLET BY MOUTH EVERY MORNING active Not Available Not Available No t Available Nell-Lanta 200 mg-200 mg-20 mg/5 mL oral suspension TAKE 5 ML BY MOUTH EVERY 6 HOURS NEEDED FOR INDIGESTION FOR UP TO 10 DAYS. active Not Available Not Available No t Available Novolog Mix 70-30 U-100 Insulin 100 unit/mL subcutaneous solution INJECT 76 UNITS SUBCUTANEOU SLY TWICE DAILY WITH BREAKFAST AND WITH DINNER active Not Available Not Available No t Available memantine 10 mg tablet TAKE 1 TABLET BY MOUTH TWICE DAILY IN THE MORNING AND IN THE EVENING active Not Available Not Available No t Available Alcohol Prep Pads USE DIRECTED THREE TIMES DAILY active Not Available Not Available No t Available FreeStyle Lite Strips TEST BLOOD SUGAR THREE TIMES DAILY active Not Available Not Available Not Available diclofenac 1 % topical gel APPLY DIRECTED TO AFFECTED AREA(S) TWICE DAILY active Not Available Not Available Not Available ClearLax 17 gram/dose oral powder TAKE 17 GM MIXED IN 8 OUNCES OF WATER ONCE DAILY FOR FOURTEEN DAYS active Not Available Not Available No t Available Cerovite Senior 0.4 mg-300 mcg-250 mcg tablet TAKE 1 TABLET BY MOUTH EVERY MORNING active Not Available Not Available No t Available TRUEplus Lancets 33 gauge TEST BLOOD SUGAR THREE TIMES DAILY active Not Available Not Available Not Available Eliquis 5 mg tablet TAKE 1 TABLET BY MOUTH TWICE DAILY IN THE MORNING AND IN THE EVENING active Not Available Not Available No t Available BD Insulin Syringe Ultra-Fine 1 mL 31 gauge x 5/16 USE DIRECTED TWICE DAILY active Not Available Not Available Not Available white petrolatum 42 % topical ointment APPLY TOPICALLY NEEDED FOR DRY SKIN active Not Available Not Available No t Available Nell-Dryl 25 mg tablet TAKE 1/2 TABLET BY MOUTH AT BEDTIME NEEDED active Not Available Not Available No t Available OneLAX Magnesium Citrate oral solution leland botella completa amy vez NEEDED FOR CONSTIPATIO N active Not Available Not Available No t Available Vitals Date Recorded Heart rate Respiratory rate Oxygen saturation Oxygen saturation in Arterial blood by Pulse oximetry Body temperature Systolic blood pressure Diastolic blood pressure Provider Name and Address Organization Details Last Updated DateTime 52 /min 16 /min 99 % 99 % 97.5 [degF] 121 mm[Hg] 62 mm[Hg] Not Available [facility] - production 19:08:40 Social History None recorded. Functional Status None recorded. Mental Status None recorded. Family History Nothing Reported. Medical History No medical history recorded. Past Encounters Encounter ID Performer Location Encounter Start Date Encounter Closed Date Diagnosis/Indication Diagnosis SNOMED-CT Code Diagnosis ICD10 Code Diagnosis Note [id number] Emelia Correa MD [place] [id number] 04/28/2025 20:52:22 04/28/2025 21:35:09 Urinary symptoms [id number] R39.9 [id number] Soumya Laughlin MD [place] [id number] 0 05/04/2025 19:33:15 05/04/2025 20:39:35 Complication of urinary catheter [id number] T83.9XXD [id number] Shane Branch MD [place] [id number] 05/08/2025 11:03:20 05/08/2025 12:26:38 Blood in urine [id number] R31.9 [id number] Regulo Schultz MD [place] [id number] 05/13/2025 18:11:25 05/14/2025 13:30:00 Complication of urinary catheter [id number] T83.9XXA [id number] JAZLYN GOTTI MD [address] [id number] 05/23/2025 19:04:19 05/23/2025 21:25:22 Urinary symptoms [id number] R39.9 Evaluation in the field was performed by my cardiology teacher colleague, as noted above, I provided real-time direction and supervisio n for this visit. The evaluation revealed 80-year-ol d male with a history of Alzheimer s disease, type 2 diabetes mellitus, GERD, hypertensi on, and hyperlipid emia presents with blood-ting ed urine and leakage around his Montelongo catheter. Per his daughter, the catheter has been draining urine, but there is visible leakage around the insertion site and blood-ting ed urine noted in the tubing. The patient has a known tendency to pull on his Montelongo and has been seen previously for similar concerns. He reports discomfort at the urethral opening and believes the catheter has not been properly secured, resulting in tension and irritation .The family denies fever, chills, nausea, vomiting, abdominal or back pain, or change in mental status. VS: BP 121/ 62, HR 52, RR 16, SpO2 99%, Room Air at RestTemper ature 97.5 FExam : Mental status at baseline, lungs CTA. Montelongo catheter in place- was replaced by the paramedicB lood Glucose: 513 mg/dL (after 70 units Novolog ~40 min prior), then 525 mg/dL despite an additional 20 units ~10 min priorUrina lysis: Positive for leukocyte esterase, blood, ketones, and ++++ glucoseUri ne Culture (05/08): >100K Enterobact er asburiae and 50K Group B Streptococ cus; no treatment initiated at that time as patient was at baselineAl lergies reviewed Impression :Severe hyperglyce elie, possibly driven by underlying infectionF oley catheter-a ssociated urinary tract infection with mechanical issues leading to urethral irritation and leakage Plan:Montelongo catheter was replaced by EMS; drainage is now appropriat e.Due to BLS limitation s, cardiology teacher were unable to initiate IV fluids or administer IV antibiotic s, both of which are likely indicated given:Poor ly controlled hyperglyce elie refractory to high-dose insulinPos itive urinalysis suggestive of infectionR ecent urine culture growing uropathoge nsNew-onse t bleeding and leakage around the catheter siteALS was requested to initiate IV access and fluids; however, no ALS unit was available. Discussed options with the daughter-i n-law, including ED transfer vs observatio n and re-evaluat ion tomorrow. Given the patient s nocturnal sleep pattern and concern for potential sepsis or worsening hyperglyce elie if untreated, the decision was made to transfer the patient to [place] [facility] . Primary care, consider__ _ Dispositio n:We discussed the situation and I recommende d referral to the emergency department . Hyperglycemia [id number] R 73.9 Health Concerns Section Related Observation LastModified by Organization Detai ls LastModified Time None Recorded Concern Status LastModified by Organization Details LastModified Time None Recorded Payers Encounter Date Sequence Insurance Name Policy Number Policy Remy Covered Member ID Remy Member ID Guarantor Name 05/23/2025 1 [facility] - DOS ON OR AFTER 2023 - DUAL ELIGIBLE - CORRECTION OPTIONS AND ONE CARE (MEDICARE REPLACEMENT/ADV ANTAGE - HMO) Dayton Forrest [id number] Dayton Forrest Notes Date Note Type Note Provider Name and Address Organization Details Recorded Time 05/23/2025 text/html CRC Nurse Triage Notes (Marva Mejia): Reason For Request: Patient is having problems w/ his Montelongo Cath, urine is coming out the sides. Chief Complaints: Urinary Catheter/Nephrostomy Tube Problems PMH: Dementia (e.g., Alzheimer's Disease), Diabetes Mellitus Type 2, Gastroesophageal Reflux Disease (GERD), Hypertension, Hyperlipidemia PMH Reviewed at 05/23/2025:34 Allergies Reviewed at 05/23/2025:34 Comments: 80 y.o male complains of Urinary Catheter/Nephrostomy Tube Problems Patients daughter calling in to place a referrral. Patient with an indwelling montelongo, has been in >3 weeks. Per daughter it is leaking around the urethra, +blood. There is urine in the tubing and bag. She is concerned that that it may be clogged. He has an appt with the urologist May 26. She denies that he is having any abdominal pain/pressure. I provided information on the mobile health provider response time and advised the patient and/or caregiver to monitor reported signs and symptoms. I discussed the warning signs of when to seek emergency care. Film Color Tester Organization Information for [employer] Legal Name: [employer]. Address: [address] [place] [id number], Clerk Guide: Chris Brock MD CLIA No.: [id number] Film Color Tester POC Test Results from [employer] Blood Glucose Measurement (19:34:47) Blood Glucose: 513 mg/dL Attachments uploaded as part of this test result can be found under Documents section. Urine Dipstick (19:43:30) Urine leukocytes: 125+++ DONY Urine nitrites: - NIT Urine urobilinogen: 0.2 URO Urine protein: 30+ PRO Urine pH: 5 pH Urine blood: +++ BLO Urine specific gravity: 1.010 SG Urine ketones: 5+ KET Urine bilirubin: 1+ FRANKI Urine glucose: 2000++++ GLU Attachments uploaded as part of this test result can be found under Documents section. Blood Glucose Measurement (19:59:04) Blood Glucose: 525 mg/dL Attachments uploaded as part of this test result can be found under Documents section. ...................... ...................... ...................... ...................... ...................... ...................... ......... Film Color Tester Note From Mynor Solano: Was dispatched for a 80 Y/O male for a Montelongo Cath issue. UOA PT family reported the PT has been leaking around the Cath with some slight blood, and with the PT being A/Ox2 at baseline the family has caught the PT pulling on his old Cath. PT vitals were obtained and an assessment was performed. Nothing remarkable was found upon completion of assessment. PT Montelongo Cath was changed with a 16FR W/O issue. PT urine was collected for a culture, and a dipstick test. PT BGL was also obtained and noted the PT BGL was 513, family reported they gave him 70 units of insulin about an hour prior to [facility] arrival after the PT BGL was reading 311. [facility] was contacted, [facility] suggested transport to the ED due to the PT having sugar in his urine and his BGL being over 500. Family was against it at first. [facility] suggested to the family if they do not want him going to the ED to have an ALS unit come out and give fluids to help lower his BGL, family was okay with this. Dispatched was contacted for an ALS unit for fluids to be given. Dispatched advised there was no ALS available for sometime, after some convincing family was okay with the PT being transported to the hospital. EMS arrived, PT was transported to [facility] W/O incident. Crew cleared. [facility] Lab Orders: glucose, fingerstick, blood: Performed glucose, fingerstick, blood: Performed culture, urine: Performed urinalysis, dipstick: Performed ...................... ...................... ...................... ...................... ...................... ...................... ......... [facility] Consulted: Jazlyn Gotti ...................... ...................... ...................... ...................... ...................... ...................... ......... Disposition: Calos GOTTI MD [address] [facility],[address], [place], [address], [employer] 05/23/2025 21:22:12
--- OUTSIDE RECORDS SUMMARY | 2025-05-26 14:40 | XMS_ITS | Clinical Summary ---
Author Organization [facility] Facility Address [address] [address] Care Team Providers Care Staff Design Engineer Name Role Phone Kathy Villafana MD Primary Care Provider [phone] Medications pantoprazole (PROTONIX) 40 MG EC tablet [...] Years (1 of 2 - PCV) 1964 Diabetes: Ophthalmology Exam 01/10/2023 Diabetes: Pedal Pulse Checked 01/10/2023 Diabetes: Sensory Foot Exam 01/10/2023 Diabetes: Visual Foot Exam 01/10/2023 Diabetes: Hemoglobin A1C 12/23/202409/22/ 024, 02/20/2024, 10/08/2023, Additional history exists Influenza Vaccine (Season Ended) 2025 Hepatitis B Vaccine Aged Out No longe r eligible based on patient's age to complete this topic Insurance [facility] ([id number]) [facility] ([id number]) [place] [id number] Care Teams Staff Design Engineer Relationship Specialty Start Date End Date Kathy Villafana MD PCP - General Customs House Broker 10/13/21
== END 2025-05-26 15:08 | disposition home or self-care (01) ==
LOC: HO.HUSH 13:30
PROVIDERS: PCP General Practice; Visit Provider Urology
DX: N40.1 Benign prostatic hyperplasia with lower urinary tract symptoms (principal); N13.8 Other obstructive and reflux uropathy
CPT/HCPCS: 51700; 99214

== ENCOUNTER → 2025-05-26 13:29 | Outpatient (BNVA) | payer OTHER, SELFPAY | PROVIDERS: PCP General Practice; Visit Provider Urology | DX: N40.1 Benign prostatic hyperplasia with lower urinary tract symptoms (principal); N13.8 Other obstructive and reflux uropathy; R33.9 Retention of urine, unspecified | CPT/HCPCS: 51700; 51798; 99212 ==

== ENCOUNTER 2025-06-21 20:56 | Emergency (ER) | payer OTHER, SELFPAY ==
--- NOTE | 2025-06-21 | ECG_ITS ---
Test Reason : CIPRIANO Blood Pressure : */* mmHG Vent. Rate : 50 BPM Atrial Rate : * BPM P-R Int : * ms QRS Dur : 88 ms QT Int : 454 ms P-R-T Axes : * 15 -3 degrees QTcB Int : 413 ms Atrial fibrillation with slow ventricular response Low voltage QRS Inferior infarct (cited on or before 20-Apr-2025) Cannot rule out Anterior infarct , age undetermined Abnormal ECG When compared with ECG of 23-May-2025 21:04, QT has lengthened Referred By: Generic ED Physician Electronically Signed By: PANKAJ BRASWELL MD
[2025-06-21 21:04] VITALS: BP 115/57; BP 98/64; PULSE 56; PULSE 57; RESP 18; TEMP 36.5; O2SAT 98; BMI 32.1
--- OUTSIDE RECORDS SUMMARY | 2025-06-21 21:43 | XMS_ITS | Encounter Summary ---
Author Organization [employer] Address [address] [place] [address] Care Team Providers Care Telehealth Case Manager Name Role Phone Kathy Villafana MD Primary Care Provider [phone] Encounter Details Date Type Department Care Team (Late Contact Info) Description 05/22/2023 Abstract [facility] [address], [place] [phone] Tr Tay DDS [address], [place] [phone] Social History Tobacco Use Types Packs/Day Years [...] Department Care Team (Late Contact Info) Description 08/05/2025 3:45 PM EDT Office Visit [facility] MEDICINE [address] [place] [address] Kathy Villafana MD [address] [place] [address] documented as of this encounter Visit Diagnoses Not on filedocumented in this encounter Additional Health Concerns Assessment Noted Time PHQ-9 Depression Total Score: 0 01/22/20 23 3:42 PM EST documented as of this encounter Care Teams Telehealth Case Manager Relationship Specialty Start Date End Date Kathy Villafana MD [address] [place] [address] PCP - General Family Medicine 08/05/21 [facility] 12/04/24 Corinne BROOKSA 01/15/25 documented as of this encounter
--- OUTSIDE RECORDS SUMMARY | 2025-06-21 21:43 | XMS_ITS | Clinical Summary ---
Author Organization [facility] Facility Address [address] [address] Care Team Providers Care Mushroom Cultivator Name Role Phone Kathy Villafana MD Primary Care Provider [phone] Medications pantoprazole (PROTONIX) 40 MG EC tablet [...] 02/20/2024, 10/08/2023, Additional history exists Influenza Vaccine (#1) 2025 Hepatitis B Vaccine Aged Out No longe r eligible based on patient's age to complete this topic Insurance [facility] ([id number]) KENJI AUGUSTINE [id number] [facility] ([id number]) [place] AUGUSTINE [id number] Care Teams Mushroom Cultivator Relationship Specialty Start Date End Date Kathy Villafana MD PCP - General Smoke Tester 10/13/21
--- OUTSIDE RECORDS SUMMARY | 2025-06-21 21:43 | XMS_ITS | Data Portability ---
Author Organization [facility], [facility] [employer] Support [employer] [facility] Address [address] [place] [address] Care Team Providers Care Plate Worker Helper Name Role Phone [facility] Primary Care Provider HIM CCA OTHER Assessment Encounter Date Assessment Date Assessment LastModified by Organization Details LastModified Time 04/28/2025 04/28/2025 I have reviewed and agree with the assessment and plan as documented by the switch house operator. I provided real-time medical direction for this encounter and was immediately available to provide additional phone-based assistance as needed. HPI: 80M seen today for discomfort around catheter near penis. Pt had dislodged tubing. No urinary symptoms. No fever or other concerns. O/E: Vitals at baseline. Montelongo caused irritation around penis as per medic. Bacitracin and tape applied to secure in place. Exam otherwise unremarkable per the switch house operator. UA negative Impression/Plan: Montelongo catheter discomfort, resolved. For PCP follow up. We discussed the diagnostic uncertainty of home visits and the risk associated with this. In this case, the patient and I felt this to be an acceptable and reasonable amount of risk given the benefit of avoiding an ED visit. We discussed the need to seek care urgently/emergentl y in the setting of any new or worsening serious symptoms, particularly weakness, dizziness, fever, chills, CP, SOB, worsening diarrhea, nausea, vomiting or any other concerns [email or web address] Not available 04/28/2025 20:54:45 05/04/2025 05/04/2025 I provided real -time medical direction via phone for this encounter and was available for additional phone-based assistance as needed. I have reviewed and agree with the Assessment and Plan as documented by the Animal Pathology Teacher. Patient given the opportunity to ask questions. Our service contacted for an assessment of: placement of Montelongo catheter As per above, patient had Motnelongo catheter placed and changed by this service approximately 6 days ago. Placement and the securing of the catheter had caused chafing and discomfort and family calls to have this assessed. Per switch house operator on the scene, . Vital signs are stable patient is afebrile. Montelongo catheter trouble she did as above. Impression: Problem with Montelongo catheter Plan: Montelongo catheter securing device adjusted which relieved the problem. Family updated on results. Allergies: Reviewed PCP f/u: We discussed the diagnostic uncertainty of home visits and the risk associated with this. In this case, the patient and I felt this to be an acceptable and reasonable amount of risk given the benefit of avoiding an ED visit. We discussed the need to seek care urgently/emergentl y in the setting of any new or worsening serious symptoms, particularly fever chills lightheadedness altered mental status [email or web address] Not available 05/04/2025 20:15:26 05/08/2025 05/08/2025 As noted, we were called to see this patient regarding concerns of hematuria. Evaluation in the field was performed by my switch house operator colleague, as noted above, I provided real-time direction and supervision for this visit. Patient's family state that he had a montelongo catheter placing the emergency department 2 weeks ago for urinary retention. The state today they think he pulled his montelongo catheter today and he complained of some pain. They notice bright red blood in his montelongo bag. Medic states that when he arrived there already changed the montelongo bag and the patient is making normal urine. Urine dip does show some glucose and blood. Nitrites and leukocytes are negative. Will send urine culture. Patients fingerstick is 305. There was also mention of the patient being fatigued. Patient's family state that he's been fatigue since October when he had his heart attack. Since he was seen in the ER two weeks ago his strength has been getting better according to family. There will advise the hematuria is most likely a small laceration which bled from the patient pulling the Montelongo catheter. The bleeding has stopped. Medic has manually irrigated the patient's Montelongo. It continues to drain normal urine. Family was advised that if the patient were to have bleeding again or if he does not make any urine this could be concern for a blockage from a blood clot, then they should call us back to reevaluate the patient. They were advised to follow up with his PCP. Impression: Hematuria Plan: Follow up PCP Primary care, consider labs Disposition: We discussed the diagnostic uncertainty of home visits and the risk associated with this. In this case, the patient and I felt this to be an acceptable and reasonable amount of risk given the benefit of avoiding an ED visit. We discussed the need to seek care urgently/emergentl y in the setting of any new or worsening serious symptoms, particularly fever, abdominal pain, hematuria, decreased urine output from montelongo catheter. [email or web address] Not available 05/08/2025 11:55:44 05/13/2025 05/13/2025 I have reviewed and agree with the Assessment and Plan as documented by the Animal Pathology Teacher. I provided real-time medical direction via phone for this encounter, and was available for additional phone based assistance as needed. I would add/emphasize: Patient seen for discomfort due to Montelongo catheter leg attachment falling off. AVSS afebrile and well-appearing per report. Catheter securement device replaced. Catheter functioning well. No signs of infection at this time. Patient to follow-up with care team. [email or web address] Not available 05/14/2025 10:11:16 Plan of Treatment Reminders Order Date Submit Date Provider Last Modified By Organization Details Last Modified Time Details Appointments None recorded. Lab glucose, fingerstic k, blood 2024 025 [facility], [address] [place] [address], [id number] 21:39:18 glucose, fingerstic k, blood 2024 025 [facility], [address] [place] [address], [id number] 21:39:18 culture, urine 2024 025 [facility], [address], [facility], [place], [address], 5 20:17:18 urinalysis , dipstick 2024 025 [facility], [address] [place] [address], [id number] 21:39:17 urinalysis , dipstick 2024 025 [facility], [address] [place], [id number] 12:24:15 culture, urine 2024 025 [facility] (Centralized Electronic Ordering - All Locations), Patient Can Go To The Location Of Their Choice, [id number] 10:05:36 urinalysis , dipstick 2024 025 [facility], [address] [place] [address], [id number] 21:20:58 Referral None recorded. Procedures None recorded. Surgeries None recorded. Imaging None recorded. Medication Orders None recorded. Patient TargetsNo targets recorded. Patient InstructionsNo instructions recorded. Reason for Referral None Reported. Results Created Date Observation Date Name Description Value Unit Range Abnormal Flag Note LastModifiedBy Organization Detail LastModifiedTime 05/08/2005/10/2025 URINE CULTU RE, UROLO GY BRYON P urine culture, urology workup Final report abnormal Not Available [facility] ([facility]) [address] [facility], [place], [address], 05/10/2025 10:05:36 05/08/2005/10/2025 URINE CULTU RE, UROLO GY BRYON P result 1 Entero bacter asburi ae abnormal Some Enter obact erale s may devel op resis tance durin g thera py with third -gene ratio n cepha lospo rins. This resis tance is most commo nly seen with Citro bacte r freun dii compl ex, Enter obact er cloac ae compl ex, and Klebs iella aerog tristen. [place] jim that initi ally test susce ptibl e may becom e resis tant withi n a few days after initi ation of thera py. Testi ng subse quent isola jim may be warra nted if clini linnette indic ated. (CLSI M100- Ed33) Great er than 100,0 00 colon y formi ng units per mL Not Available [facility] ([facility]) [address] [facility], [place], [address], 05/10/2025 10:05:36 05/08/20 25 05/10/2025 URINE CULTU RE, UROLO GY BRYON P result 2 COMMEN T abnormal Beta hemol ytic Strep tococ cus, group B 50,00 0-100 ,000 colon y formi ng units per mL Susce ptibi lity not regi lly perfo rmed on this organ ism. Penic illin and ampic illin are drugs of choic e for treat ment of beta- hemol ytic strep tococ katrin infec tions . Susce ptibi lity testi ng of penic illin s and other beta- lacta m agent s appro luma by the FDA for treat ment of beta- hemol ytic strep tococ katrin infec tions need not be perfo rmed routi flash becau se nonsu scept ible isola jim are extre julio rare in any beta- hemol ytic strep tococ cus and have not been repor jovany for Strep tococ cus pyoge milton (grou p A). (CLSI ) Not Available [facility] ([facility]) [address] [facility] [address], [place], [address], 05/10/2025 10:05:36 05/08/20 25 05/10/2025 URINE CULTU RE, UROLO GY BRYON P antimicrobia l susceptibili ty Commen t S = Susce ptibl e; I = Inter media te; R = Resis tant P = Posit kiera; N = Negat kiera MICS are expre ssed in micro grams per mL Antib iotic RSLT# 1 RSLT# 2 RSLT# 3 RSLT# 4 Amoxi cilli n/Cla vulan ic Acid R Cefep jagruti S Cefox itin R Cefpo doxim e S Ertap enem S Genta micin S Levof loxac in S Nitro furan toin I Tetra cycli ne S Tobra mycin S Trime thopr im/Hamm lfa S Not Available [facility] ([facility]) [address] [facility], [place], [address], 05/10/2025 10:05:36 05/23/20 25 05/28/2025 CULTU RE, URINE , SPECI AL culture, urine, special SEE NOTE abnormal CULTU RE, URINE , SPECI AL Micro Numbe r: [id number] Test Statu s: Final Speci men Sourc e: Urine , clean catch Speci men Quali ty: Adequ ate Resul t: Great er than 100,0 00 CFU/m L of Enter obact er asbur iae Great er than 100,0 00 CFU/m L of Group B Strep tococ cus isola jovany Beta- hemol ytic strep tococ ci are predi ctabl y susce ptibl e to Penic illin and other beta- lacta ms. Susce ptibi lity testi ng not routi flash perfo rmed. Pleas e conta ct the labor atory withi n 3 days if susce ptibi lity testi ng is sarah ed. E.asb uriae ----- ----- ----- - INT SOBIA AMOX/ CLAVU LANAT E R >=32 CEFAZ JIMENEZ R >=32 1 CEFEP JAGRUTI S <=0.1 2 CEFTA ZIDIM E S <= 0.5 CIPRO FLOXA GIOVANNA S <=0.0 6 GENTA MICIN S <=1 IMIPE NEM S 0.5 LEVOF LOXAC IN S <=0.1 2 MEROP ENEM S <=0.2 5 NITRO FURAN TOIN S 32 PIP/T AZOBA CTAM S <=4 TRIME THOPR IM/HAMM LFA S <=20 S = Susce ptibl e I = Inter media te R = Resis tant NS = Not susce ptibl e SDD = Susce ptibl e Dose Depen dent * = Not Teste d NR = Not Repor jovany NN = See Thera py Comme nts THERA PY COMME NTS Note 1: For uncom plica jovany UTI cause d by E. coli, K. pneum oniae or P. mirab ilis: Cefaz jimenez is susce ptibl e if SOBIA <32 mcg/m L and predi cts susce ptibl e to the oral agent s cefac christ, cefdi misha, cefpo doxim e, cefpr ozil, cefur oxime , cepha lexin and lorac arbef . Not Available [facility] [place] [facility] [address], [place], [address], 05/28/2025 18:52:04 Result Notes None recorded. Medical Equipment None [...] t Available Vitals Date Recorded Heart rate Body weight Oxygen saturation Oxygen saturation in Arterial blood by Pulse oximetry Body height Body temperature Respiratory rate Systolic And Diastolic Provider Name and Address Organization Details Last Updated DateTime 5 68 /min 22753.6 g 93 % 93 % 152.4 cm 98 [degF] 14 /min 158/78 mm[Hg] Not Available [employer] 5 20:52:24 Date Recorded Heart rate Respiratory rate Body weight Body temperature Body height Oxygen saturation Oxygen saturation in Arterial blood by Pulse oximetry Systolic And Diastolic Provider Name and Address Organization Details Last Updated DateTime 5 71 /min 16 /min 549360. 76 g 97.3 [degF] 187.96 cm 97 % 97 % 140/58 mm[Hg] Not Available [employer] 5 19:33:18 Date Recorded Body height Body weight Body temperature Heart rate Respiratory rate Oxygen saturation Oxygen saturation in Arterial blood by Pulse oximetry Systolic And Diastolic Provider Name and Address Organization Details Last Updated DateTime 5 167.64 cm 94967.5 2 g 97.7 [degF] 58 /min 18 /min 96 % 96 % 112/65 mm[Hg] Not Available [employer] 5 11:03:23 Date Recorded Body temperature Respiratory rate Heart rate Oxygen saturation Oxygen saturation in Arterial blood by Pulse oximetry Systolic And Diastolic Provider Name and Address Organization Details Last Updated DateTime 5 98.7 [degF] 16 /min 86 /min 97 % 97 % 146/82 mm[Hg] Not Available [employer] 5 18:49:01 Date Recorded Heart rate Respiratory rate Oxygen saturation Oxygen saturation in Arterial blood by Pulse oximetry Body temperature Systolic And Diastolic Provider Name and Address Organization Details Last Updated DateTime 5 52 /min 16 /min 99 % 99 % 97.5 [degF] 121/62 mm[Hg] Not Available [employer] [facility] [employer] 19:08:40 Social History None recorded. Functional Status None recorded. Mental Status None recorded. Family History Nothing Reported. Medical History No medical history recorded. Past Encounters Encounter ID Performer Location Encounter Start Date Encounter Closed Date Diagnosis/Indication Diagnosis SNOMED-CT Code Diagnosis ICD10 Code Diagnosis Note [id number] Bianca Mullen MD Main - [address] [address] 04/06/2025 17:26:11 04/06/2025 19:11:32 Eruption [id number] R21 80 year old male with dementia, on anticoagul ation, being evaluated for several days of a rash. Caregiver reporting rash on his R arm and upper back, no itching, patient not bothered. No trauma to report, no fever/chil ls. Has had these types of rashes in the past, but only in the hospital. Patient with limited mobility, ambulatory but requires assistance . No hematuria or bloody stool reported. Exam notable for dark purple coalescing macules at back of R upper arm, and upper back. Presentati on consistent with purpura, in the setting of old age and being on anticoagul ation. No further interventi on indicated at this time, advised family to continue to monitor, FU outpatient team for CBC if worsening over the next few days. I have reviewed and agree with the assessment and plan as documented by the switch house operator. I provided real-time medical direction for this encounter and was immediatel y available to provide additional phone-base d assistance as needed. We discussed the diagnostic uncertaint y of home visits and associated risks. We discussed the need to seek care urgently/e mergently in the setting of any new or worsening symptoms. [id number] Emelia Correa MD Main - [address] [address] 04/28/2025 20:52:22 04/28/2025 21:35:09 Urinary symptoms [id number] R39.9 [id number] Soumya Laughlin MD [facility] [address] [address] 05/04/2025 19:33:15 05/04/2025 20:39:35 Complication of urinary catheter [id number] T83.9XXD [id number] Shane Branch MD [address] [address] 05/08/2025 11:03:20 05/08/2025 12:26:38 Blood in urine [id number] R31.9 [id number] Regulo Schultz MD [address] [address] 05/13/2025 18:11:25 05/14/2025 13:30:00 Complication of urinary catheter [id number] T83.9XXA [id number] JAZLYN GOTTI MD [address] [address] 05/23/2025 19:04:19 05/23/2025 21:25:22 Urinary symptoms 059975094 R39.9 Evaluation in the field was performed by my switch house operator colleague, as noted above, I provided real-time [...] now appropriat e.Due to BLS limitation s, switch house operator were unable to initiate IV fluids or [...] was made to transfer the patient to [facility] . Primary care, consider__ _ Dispositio n:We discussed the situation and I recommende d referral to the emergency department . Hyperglycemia 76182973 R 73.9 Health Concerns Section Related Observation LastModified by Organization Detai ls LastModified Time None Recorded Concern Status LastModified by Organization Details LastModified Time None Recorded Advance Directives Directive None Recorded Payers Insurance Date Sequence Insurance Name Policy Number Policy Paulino Covered Member ID Paulino Member ID Guarantor Name 06/21/2025 1 [facility] - DOS ON OR AFTER 2023 - DUAL ELIGIBLE - SHELTER OPTIONS AND ONE CARE (MEDICARE REPLACEMENT/ADV ANTAGE - HMO) Dayton Forrest [id number] Dayton Forrest Notes Date Note Type Note Provider Name and Address Organization Details Recorded Time 04/28/2025 text/html HPI: Son called as Patient with Dementia and reinsertion of FC on Sunday now complains of burning. Son did not observe penis and swelling and redness undetermined. Urine clear today had some blood noted in bag yesterday. Unsure if FC tubing is anchored. ...................... ...................... ...................... ...................... ...................... ...................... ......... [facility] Nurse Triage Notes (Casie Sandoval): Reason For Request: Montelongo cath / uti Chief Complaints: Urinary Catheter/Nephrostomy Tube Problems, Urinary Symptoms PMH: Dementia (e.g., Alzheimer's Disease), Diabetes Mellitus Type 2, Gastroesophageal Reflux Disease (GERD), Hypertension, Hyperlipidemia PMH Reviewed at 04/28/2025 Allergies Reviewed at 04/28/2025:52 Comments: HPI reviewed Animal Pathology Teacher Organization Information for Dhaval Campbell [employer] Legal Name: [facility] Address: [address] [place] [address], [place] [address], Tool Storage Attendant: Kiet Olmedo MD [place] No.: [id number] Animal Pathology Teacher POC Test Results from Dhaval Campbell Urine Dipstick (19:01:22) Urine leukocytes: - DONY Urine nitrites: - NIT Urine urobilinogen: 0.2 URO Urine protein: - PRO Urine pH: 5.0 pH Urine blood: - BLO Urine specific gravity: 1.005 SG Urine ketones: - KET Urine bilirubin: - FRANIK Urine glucose: - GLU ...................... ...................... ...................... ...................... ...................... ...................... ......... Animal Pathology Teacher Note From Dhaval Campbell: Patient in bed with Montelongo catheter. Caregiver reports patient has dementia. Caregiver reports Montelongo catheter installed five days ago for urinary retention. Caregiver concerned catheter has irritated skin. Caregiver reports no other complaint or concern. Caregiver reports patient complains of burning at tip of penis. No other complaints normal intake, elimination, and mentation. Patient denies other pain or complaints. Patient pink warm dry secondary exam unremarkable. Lung sounds clear negative increase work of breathing positive sentences abdomen soft nontender. Extremities unremarkable no edema noted. Negative CVA tenderness. Sticker that holds catheter to leg has become dislodged, bag has been pulling on catheter, rubbing skin of penis, causing abrasion. Good output, 300 ML clear very pale yellow fluid in collection bag. No sediment or odor noted. No discharge from penis. Triple antibiotic ointment applied, sticker to hold montelongo applied, and tube adjusted to decrease irritation. UA negative. Red flags, patient education discussed. Caregiver and family demonstrate understanding of care and plan. ...................... ...................... ...................... ...................... ...................... ...................... ......... [facility] Consulted: Emelia Correa ...................... ...................... ...................... ...................... ...................... ...................... ......... Disposition: Fulfilled Emelia Correa MD [address] [place] [address],[address], [place], [address], [facility] [place] 04/28/2025 20:55:19 05/04/2025 text/html CRC Nurse Triage Notes (Bishop Martinez): Reason For Request: catheter pain Chief Complaints: Urinary Catheter/Nephrostomy Tube Problems PMH: Dementia (e.g., Alzheimer's Disease), Diabetes Mellitus Type 2, Gastroesophageal Reflux Disease (GERD), Hypertension, Hyperlipidemia PMH Reviewed at 05/04/2025 - 17:59 Allergies Reviewed at 05/04/2025 - 17:59 Comments: 80 y.o male complains of Urinary Catheter/Nephrostomy Tube Problems CG reports the pt has catheter in place - Increased pain with movement - Pulling. Catheter is draining - Yellow in color Denies fever Pt is taking Tylenol for pain [facility] - Montelongo caused irritation around penis as per medic. Bacitracin and tape applied to secure in place. Exam otherwise unremarkable per the switch house operator. UA negative Wellness check for montelongo catheter troubleshooting I provided information on the mobile health provider response time and advised the patient and/or caregiver to monitor reported signs and symptoms. I discussed the warning signs of when to seek emergency care. ...................... ...................... ...................... ...................... ...................... ...................... ......... Animal Pathology Teacher Note From Aryan Shipley: NJ1 sent to the above address for the pts family requesting a Montelongo catheter trouble. Upon arrival the so met outside and brought sc1 in to the pt. The pt is an 80 yo male who has Dementia and Alzheimer's disease. The pt had a catheter placed on 04/28/2025 by [facility] and the pt has some chaffing to the head of his penis. After some investigation the tubing secure was a little high and that was forcing the tubing of the catheter to push and rub the head of his penis causing irritation. The catheter secure was changed over to his other leg and the tubing was now straighter with less of a curve to the tubing. Dr Laughlin was contacted and notified and the results were explained and Dr Laughlin was pleased. NJ1 cleared the call.WRR ...................... ...................... ...................... ...................... ...................... ...................... ......... [facility] Consulted: Soumya Laughlin ...................... ...................... ...................... ...................... ...................... ...................... ......... Disposition: Fulfilled Soumya Laughlin MD [address] [facility],[address], [place], [address], [facility] 05/04/2025 20:15:33 05/08/2025 text/html ROS as noted in the HPI [facility] Nurse Triage Notes (Marva Mejia): Reason For Request: catheter /blood in urine Chief Complaints: Urinary Catheter/Nephrostomy Tube Problems PMH: Dementia (e.g., Alzheimer's Disease), Diabetes Mellitus Type 2, Gastroesophageal Reflux Disease (GERD), Hypertension, Hyperlipidemia PMH Reviewed at 05/08/2025: Allergies Reviewed at 05/08/2025:22 Comments: 80 y.o male complains of Urinary Catheter/Nephrostomy Tube Problems Patients daughter calling in to place a referral. She is vague with concern/symptoms. Patient has a chronic indwelling montelongo. She reports hematuria x3 days. She is unsure if the patient is playing or tugging on the tubing. She notes the patient has been more fatigued over the last couple of days, Patient has not complained of any pain. She is unsure of fever/chill or odor to the urine. She would like him evaluated. I provided information on the mobile health provider response time and advised the patient and/or caregiver to monitor reported signs and symptoms. I discussed the warning signs of when to seek emergency care. Animal Pathology Teacher Organization Information for Emil Terrazas WILLARD [employer] Legal Name: [employer]. Address: [address] [place] [address], Tool Storage Attendant: Byron BURRIS No.: [id number] Animal Pathology Teacher POC Test Results from Emil Terrazas Cayden LAMAR Urine Dipstick (11:01:12) Urine leukocytes: wil DONY Urine nitrites: neg NIT Urine urobilinogen: neg URO Urine protein: neg PRO Urine pH: 6.5 pH Urine blood: pos BLO Urine specific gravity: 1.020 SG Urine ketones: neg KET Urine bilirubin: neg FRANKI Urine glucose: positive GLU ...................... ...................... ...................... ...................... ...................... ...................... ......... Animal Pathology Teacher Note From Emil Terrazas: 80 yo male found by daughter in law saying ouch while touching his Montelongo catheter. Pts tape on thigh had fallen off and pt may have been pulling it and montelongo bag was full of bright red blood and urine. Drained by family and noted it was regular yellow again and slightly cloudy. Urine dipstick results and culture relayed to Dr. Branch. Family noted that pt was improving since coming home from his 2 MIs but 2 weeks ago was having urinary retention and was sent home from ER with montelongo bag and has May 26 follow up appt. No services at home but son cares for him 18/06. Pt denies currently any pain, fevers or chills. Urine culture to go to [facility]. Montelongo appeared to be in place with urine output. Gave 20 mg cc of saline flush into catheter with good flow and good return to bag. Family did not have a tape thigh paulino so gave them two tegaderms and two rolls of tape to help secure it as needed. Taped the montelongo to thigh using tegaderm and tape and pt able to stand with no pain. appears to be enough slack to allow walking with out pain. Son thanked us for that. Daughter in law to ask for tape and montelongo kits at next visit. Pt continued to watch [employer] and answer questions. Stood with no dizziness and took a couple steps without issues. [facility] Lab Orders: urinalysis, dipstick: Performed culture, urine: Performed ...................... ...................... ...................... ...................... ...................... ...................... ......... [facility] Consulted: Shane Branch ...................... ...................... ...................... ...................... ...................... ...................... ......... Disposition: Calos Shane Branch MD [address] [facility],[address], [place], [address], [place] 05/08/2025 12:11:17 05/13/2025 text/html CRC Nurse Triage Notes (Betzaida Bee): Reason For Request: Pt is having catheter complications per son, part of tubing is dirty, does not want montelongo completely changed just part. Pt is bleeding near montelongo Denies: Unable to void greater than 5 hours Erection that will not go away after 2 hours Fall or trauma that results in urinary incontinence in the setting of pain Fall or injury that results in incontinence in the absence of pain Lower back pain either unilateral or bilateral, unable to void, painful urination -hematuria Painful urination Frequent and increased urination with flank pain Painful urination with or without fever Inability to fully empty bladder Chief Complaints: Urinary Catheter/Nephrostomy Tube Problems, Urinary Symptoms PMH: Dementia (e.g., Alzheimer's Disease), Diabetes Mellitus Type 2, Gastroesophageal Reflux Disease (GERD), Hypertension, Hyperlipidemia PMH Reviewed at 05/13/2025 - 16: Allergies Reviewed at 05/13/2025 - 16: Comments: 80 y.o male complains of Urinary Catheter Problems, Urinary Symptoms. Patients son states that there is blood tinged urine in his fathers catheter. He is requesting that this be checked. He states he thinks its because there is no catheter secure device and it been tugging and hanging but wants to make sure. He states the patient does have pain around the urethra opening, denies any nausea or vomiting. denies fever or chills, denies any abdominal or back discomfort and urine is coming through the montelongo Catheter tubing. reviewed red flags. I provided information on the mobile health provider response time and advised the patient and/or caregiver to monitor reported signs and symptoms. I discussed the warning signs of when to seek emergency care. ...................... ...................... ...................... ...................... ...................... ...................... ......... Animal Pathology Teacher Note From Sharan Melo: Dispatched to the call address for the male with issues with his catheter. Pts son states that the Pts montelongo catheter is pulling sometimes. He had the original leg attachment come off and a replacement was put on last week but it is a different style. Pt denies any pain, diff breathing/sob, cough, fevers, abd discomfort or other complaints at this time. Pt was found sitting on living room recliner, CAOx4, airway open and patent, breathing rapid but non labored, skin PWD with fair turgor, mucous membranes pink but dry, -JVD, -HEENT, pupils PERRL, abd soft non tender/distended, lungs CTA, Afebrile, +CMSx4, -edema swelling. Catheter was not properly attached to the leg paulino. Pt was assessed. Montelongo was fixed to not pull anymore. [facility] consulted. Red flags discussed ALL times are approx. ...................... ...................... ...................... ...................... ...................... ...................... ......... [facility] Consulted: Regulo Schultz ...................... ...................... ...................... ...................... ...................... ...................... ......... Disposition: Fulfilled Regulo Schultz MD [address] [place] [address],[address], [place], [address], [place] 05/14/2025 10:13:26 05/23/2025 text/html ROS as noted in the [facility] CRC Nurse Triage Notes (Marva Mejia): Reason [...] signs of when to seek emergency care. Animal Pathology Teacher Organization Information for [facility] [employer] Legal Name: [employer]. Address: [address] [place] [id number], Tool Storage Attendant: Chris Brock MD CLIA No.: [id number] Animal Pathology Teacher POC Test Results from [facility] - [facility] Blood Glucose Measurement (19:34:47) Blood Glucose: 513 [...] ...................... ...................... ...................... ...................... ...................... ...................... ......... Animal Pathology Teacher Note From Mynor Solano: Was dispatched for [...] of insulin about an hour prior to [facility] arrival after the PT BGL was reading 311. [facility] was contacted, [facility] suggested transport to the ED due to the PT having sugar in his urine and his BGL being over 500. Family was against it at first. [facility] suggested to the family if they do [...] hospital. EMS arrived, PT was transported to [facility] W/O incident. Crew cleared. [facility] Lab Orders: glucose, fingerstick, blood: Performed glucose, fingerstick, blood: Performed culture, urine: Performed urinalysis, dipstick: Performed ...................... ...................... ...................... ...................... ...................... ...................... ......... [facility] Consulted: Jazlyn Gotti ...................... ...................... ...................... ...................... ...................... ...................... ......... Disposition: Calos GOTTI MD [address] [facility],[address], [place], [address], OSIEL - SHIRLEY CONNOLLY 05/23/2025 21:22:12
[2025-06-21 22:11] LABS: MANUAL DIFF FLAG NO
[2025-06-21 22:12] LABS: Hematocrit 30.4 % (42.0-52.0); Hemoglobin 9.1 g/dl (14.0-18.0); Imm Gran Abs Auto 0.03 X10*3/uL (0.00-0.03); Imm Gran Pct Auto 0.3 % (0.0-0.4); Lymphocytes Absolute Auto 1.0 X10*3/uL (1.2-4.9); Mean Corpuscular HGB Conc 29.9 g/dl (31.0-36.0); Mean Corpuscular Hemoglobin 24.7 pg (27.0-33.0); Mean Corpuscular Volume 82.6 fL (80.0-98.0); NRBC Abs Auto 0.000 X10*3/uL (0.0-0.012); NRBC Pct Auto 0.0 /100WBC (0.0-0.2); Platelet Count 215 X10*3/uL (160-400); Red Blood Count 3.68 X10*6/uL (4.60-5.80); White Blood Count 9.4 X10*3/uL (4.8-10.8)
[2025-06-21 22:16] LABS: Glucose, Whole Blood 336 mg/dL (60-115)
[2025-06-21 22:31] LABS: Alanine Aminotransferase 9 U/L (0-40); Albumin Level 3.8 g/dL (3.5-5.0); Alkaline Phosphatase 114 U/L (39-117); Anion Gap 15 (12-20); Aspartate Amino Transferase 22 U/L (5-37); Blood Urea Nitrogen 40 mg/dL (9-16); Calcium 8.8 mg/dL (8.4-10.2); Carbon Dioxide 29 mmol/L (22-29); Chloride 98 mmol/L (96-108); Creatinine Clr Calc Pharmacy 34.9; Estimated Glomerular Filt Rate 31; Potassium 3.9 mmol/L (3.3-5.1); Sodium 138 mmol/L (135-145); Total Protein 7.7 g/dL (6.5-8.0); Troponin-I High Sensitivity 6.4 ng/L (<3.5-35.0)
[2025-06-21] MEDS: Lidocaine HCl 1%/Epi 1:100,000 10 ML VIAL INFILTRATI (23:05)
--- NOTE | 2025-06-22 01:09 | ED.GENADULT ---
HPI - General Adult General Chief complaint: Skin/Abscess/Foreign Body Stated complaint: cyst on back Time Seen by Provider: 06/21/25 22:29 Source: patient and family Limitations: language barrier and other (Dementia) History of Present Illness ED Provider: Gianna Bragg PA-C HPI narrative: 80-year-old male with a history of dementia, insulin-dependent diabetes, hypertension, hyperlipidemia, known coronary artery disease, prior NSTEMI, gout, presents with an infected cyst. Per the patient's son who is at bedside, his father has a cyst on his back that has been present for a year, it has been drained before. Over the past day, it began draining pus. Denies fevers. Related Data Home Medications ?Medication ?Instructions ?Recorded ?Confirmed apixaban 5 mg tablet (Eliquis) 5 mg PO BID 09/05/21 03/08/25 donepezil 10 mg tablet 1 tab PO BEDTIME 09/05/21 03/08/25 [id number] acid 0.4 1 tab PO DAILY 09/05/21 03/08/25 mg-lycopene 300 mcg-lutein 250 mcg tablet (CertaVite Senior) allopurinol 100 mg tablet 50 mg PO DAILY gout pain 10/07/21 03/08/25 insulin syringe-needle U-100 1 mL #10 ea 12/22/21 03/08/25 31 gauge x 04/10 memantine 10 mg tablet 10 mg PO BID 05/08/22 03/08/25 metoprolol tartrate 100 mg tablet 100 mg PO BID 05/08/22 03/08/25 cetirizine 10 mg tablet 10 mg PO DAILY congestion 08/17/23 03/08/25 omeprazole 20 mg capsule,delayed 20 mg PO BID@0630,1630 05/17/24 03/08/25 release sucralfate 1 gram tablet 1 g PO TIDAC 05/17/24 03/08/25 magnesium oxide 250 mg PO DAILY 11/25/24 03/08/25 insulin aspar prt-insulin aspart 76 unit subcut BIDWM 12/24/24 03/08/25 100 unit/mL (70-30) subcutaneous soln (Novolog Mix 70-30 U-100 Insuln) diphenhydramine HCl 25 mg tablet 12.5 mg PO BEDTIME PRN Allergy 01/08/25 03/08/25 (Nell-Dryl) Symptoms dapagliflozin propanediol 5 mg 5 mg PO DAILY 02/27/25 03/08/25 tablet (Farxiga) amlodipine 2.5 mg tablet 2.5 mg PO QAM 03/08/25 03/08/25 Previous Rx's ?Medication ?Instructions ?Recorded atorvastatin 40 mg tablet (Lipitor) 40 mg PO BEDTIME #30 tabs 09/09/21 lancets (Lancets,Ultra Thin) #100 ea 10/21/21 aspirin 81 mg chewable tablet 81 mg PO DAILY #60 tabs 12/03/24 isosorbide mononitrate 60 mg 60 mg PO DAILY #90 tabs 12/03/24 tablet,extended release 24 hr bumetanide 1 mg tablet 2 mg PO DAILY #180 tabs 03/02/25 gabapentin 800 mg tablet 400 mg (1/2 x 800 mg) PO BID #60 03/02/25 tabs polyethylene glycol 3350 17 17 g PO DAILY #119 grams 04/26/25 gram/dose oral powder (Miralax) cephalexin 500 mg capsule 500 mg PO BID #14 caps 05/24/25 finasteride 5 mg tablet 5 mg PO DAILY 90 days #90 tabs 05/26/25 tamsulosin 0.4 mg capsule (Flomax) 0.4 mg PO BEDTIME 90 days #90 caps 05/26/25 doxycycline hyclate 100 mg capsule 100 mg PO BID #13 caps 06/22/25 Allergies Allergy/AdvReac Type Severity Reaction Status Date / Time No Known Allergies Allergy Verified 06/21/25 21:14 Review of Systems Review of Systems: Unable to obtain secondary to patient's underlying dementia Yes all other systems are reviewed and are negative PMFSH Past Medical History Attestation statement: The following information was validated with the patient. Medical History Seizure CKD stage 3b, GFR 30-44 ml/min CHF exacerbation Chronic atrial fibrillation Diabetes mellitus Alzheimer's dementia Acute hypoxic respiratory failure Pneumonia Pneumonia Acute respiratory failure Hypoxia CAD (coronary artery disease) Trash foot Diabetic foot infection Heart failure with preserved ejection fraction HLD (hyperlipidemia) Atrial fibrillation NSTEMI (non-ST elevated myocardial infarction) Kidney failure Diabetes HTN (hypertension) Surgical History No pertinent past surgical history Family History Family History Father No problems noted. Mother No problems noted. Social History Social History Household Members: Family and Children Household Members Other:: sons and daughter in law Housing: House Do you presently have visiting nurse or other home services: Yes Unable to assess alcohol history related to: Unable to respond Alcohol intake: former Patient Tobacco Use Status: Never used Tobacco e-Cigarette/Vaping Use: Never Used Second Hand Smoke Exposure: No Advance Directives: Yes Advance Directives on File: Yes Advance Directives Date on File: 09/06/21 service: No Current occupational status: retired Physical Exam ED Exam Exam: Alert well-appearing Vital Signs: Vital Signs - 24 hr 06/21/25 21:04 Temperature 97.7 F Pulse Rate 57 Respiratory Rate 18 Blood Pressure 115/57 L Pulse Oximetry 98 Oxygen Delivery Method Room Air BMI result Body Mass Index 32.1 Const Orientation/consciousness: oriented to person Resp Effort & Inspection: normal respiratory effort Cardio Other: Normal peripheral perfusion Back/Spine/Pelvis Other: Tender, fluctuant, discolored swelling over lower mid back, actively draining pus, it is superficial Skin Other: Warm dry no rash Neuro General: oriented to person, no focal motor deficits and CN's II-XI intact bilaterally Psych Other: Cooperative Medications Administered Discontinued Medications Generic Name Dose Route Start Last Admin Trade Name Freq PRN Reason Stop Dose Admin Doxycycline Monohydrate 100 mg 06/21/25 22:49 06/21/25 23:05 Doxycycline Monohydrate 100 Mg Capsule PO 06/21/25 22:50 100 mg ONCE ONE Administration Lidocaine/Epinephrine 10 ml 06/21/25 22:49 06/21/25 23:05 Lidocaine Hcl 1%/Epi 1:100,000 10 Ml Vial INFILTRATI 06/21/25 22:50 10 ml ONCE ONE Administration Procedures Abscess I/D Site: back Sedation/analgesia: none Local Anesthetic: lidocaine 1% and with epi Amount of anesthesia used (mL): 5 Technique: incised with blade Amount of fluid expressed (mL): 5 (it was purulent drainage and sebum) Sent for culture/gram staining?: No Irrigation: Yes Packing used?: none Medical Decision Making Medical Decision Making MDM Narrative: 80-year-old male with a history of dementia, insulin-dependent diabetes, hypertension, hyperlipidemia, known coronary artery disease, prior NSTEMI, gout, presents with an infected cyst. Per the patient's son who is at bedside, his father has a cyst on his back that has been present for a year, it has been drained before. Over the past day, it began draining pus. Denies fevers. Problem: Diabetes , dementia History: Per patient's son I have considered the following differential diagnoses: Cellulitis, purulent cellulitis, abscess, infected sebaceous cyst Plan: Patient requires I and D, once I opened the lesion, it was clear it is an infected sebaceous cyst. We will place on doxycycline, and give recommendations for surgical consult to have it completely removed. No indication for imaging, labs were obtained from triage. I have independently reviewed the following tests: Labs: No leukocytosis, left shift noted, stable anemia, blood sugar minimally elevated at 336, no gap, creatinine at baseline, Lab Data 06/21/25 22:05 06/21/25 22:05 Labs: Lab Results 06/21/25 06/21/25 Range/Units 22:05 22:11 WBC 9.4 (4.8-10.8) X10*3/uL RBC 3.68 L (4.60-5.80) X10*6/uL Hgb 9.1 L (14.0-18.0) g/dl Hct 30.4 L (42.0-52.0) % MCV 82.6 (80.0-98.0) fL MCH 24.7 L (27.0-33.0) pg MCHC 29.9 L (31.0-36.0) g/dl RDW 18.2 H (11.0-16.0) % Plt Count 215 (160-400) X10*3/uL MPV 10.5 (9.4-12.4) fL Immature Gran % (Auto) 0.3 (0.0-0.4) % Neut % (Auto) 79.2 H (45-73) % Lymph % (Auto) 11.0 L (20-40) % [place] % (Auto) 6.8 (2-11) % Eos % (Auto) 2.2 (0-4) % Baso % (Auto) 0.5 (0-2) % Lymph # (Auto) 1.0 L (1.2-4.9) X10*3/uL [place] # (Auto) 0.6 (0.1-1.2) X10*3/uL Eos # (Auto) 0.2 (0.0-0.4) X10*3/uL Baso # (Auto) 0.1 (0.0-0.2) X10*3/uL Abs Immat Gran (auto) 0.03 (0.00-0.03) X10*3/uL Absolute Neuts (auto) 7.4 (2.0-8.3) x10*3/uL Absolute Nucleated RBC 0.000 (0.0-0.012) X10*3/uL Nucleated RBC % (auto) 0.0 (0.0-0.2) /100WBC Sodium 138 (135-145) mmol/L Potassium 3.9 (3.3-5.1) mmol/L Chloride 98 (96-108) mmol/L Carbon Dioxide 29 (22-29) mmol/L Anion Gap 15 (12-20) BUN 40 H (9-16) mg/dL Creatinine 2.07 H (0.5-1.4) mg/dL Estim Creat Clear Calc 34.9 Estimated GFR 31 POC Glucose 336 H (60-115) mg/dL Random Glucose 367 H* (60-115) mg/dL Calcium 8.8 (8.4-10.2) mg/dL Total Bilirubin 0.5 (0.0-1.0) mg/dL AST 22 (5-37) U/L ALT 9 (0-40) U/L Alkaline Phosphatase 114 (39-117) U/L Troponin I High Sens 6.4 (<3.5-35.0) ng/L Total Protein 7.7 (6.5-8.0) g/dL Albumin 3.8 (3.5-5.0) g/dL Discharge Plan Discharge Clinical Impression: Infected sebaceous cyst of skin Patient Disposition: Home, Self-Care Instructions: Cyst (ED), Abscess Incision and Drainage (DC) Additional Instructions: You have a sebaceous cyst that became infected. The infection was drained at bedside. See home care instructions. Take the doxycycline as directed. Cysts will reaccumulate, you need to follow up with your primary care provider, they can expedite a surgical consult for you, to have the cyst removed, once the infection has resolved. Call tomorrow to make an appointment. Prescriptions: New doxycycline hyclate 100 mg capsule 100 mg PO BID Qty: 13 0RF No Action Eliquis 5 mg tablet 5 mg PO BID donepezil 10 mg tablet 1 tab PO BEDTIME CertaVite Senior 0.4-300-250 mg-mcg-mcg tablet 1 tab PO DAILY atorvastatin [Lipitor] 40 mg tablet 40 mg PO BEDTIME Qty: 30 0RF metoprolol tartrate 100 mg tablet 100 mg PO BID memantine 10 mg tablet 10 mg PO BID allopurinol 100 mg tablet 50 mg PO DAILY (DME) lancets [Lancets,Ultra Thin] Misc See Rx Instructions .Route Qty: 100 0RF Rx Instructions: As directed cetirizine 10 mg tablet 10 mg PO DAILY magnesium oxide 250 mg magnesium tablet 250 mg PO DAILY isosorbide mononitrate 60 mg Tablet Extended Release 24 Hr 60 mg PO DAILY Qty: 90 0RF Protocol: Hold for SBP< HOLD for SBP < : 90 aspirin 81 mg Tablet,Chewable 81 mg PO DAILY Qty: 60 0RF insulin asp prt-insulin aspart [Novolog Mix 70-30 U-100 Insuln] 100 unit/mL (70-30) solution 76 unit subcut BIDWM Rx Instructions: INJECT 76 UNITS SUBCUTANEOUSLY TWICE DAILY WITH BREAKFAST AND WITH DINNER dapagliflozin propanediol [Farxiga] 5 mg tablet 5 mg PO DAILY gabapentin 800 mg tablet 400 mg PO BID Qty: 60 0RF bumetanide 1 mg Tablet 2 mg PO DAILY Qty: 180 0RF Protocol: Hold for SBP< HOLD for SBP < : 90 amlodipine 2.5 mg tablet 2.5 mg PO QAM cephalexin 500 mg capsule 500 mg PO BID Qty: 14 0RF omeprazole 20 mg capsule,delayed release(DR/EC) 20 mg PO BID@0630,1630 sucralfate 1 gram tablet 1 g PO TIDAC diphenhydramine HCl [Nell-Dryl] 25 mg tablet 12.5 mg PO BEDTIME PRN (Reason: Allergy Symptoms) polyethylene glycol 3350 [Miralax] 17 gram/dose powder 17 g PO DAILY Qty: 119 0RF (DME) insulin syringe-needle U-100 1 mL 31 gauge x 5/16 syringe See Rx Instructions subcut TID Qty: 10 Rx Instructions: As directed tamsulosin [Flomax] 0.4 mg capsule 0.4 mg PO BEDTIME 90 Days Qty: 90 0RF finasteride 5 mg tablet 5 mg PO DAILY 90 Days Qty: 90 0RF Print Language: Swiss
[2025-06-22 01:30] VITALS: BP 135/66; PULSE 51; RESP 20; TEMP 36.8; O2SAT 96
== END 2025-06-22 02:19 | disposition home or self-care (01) ==
PROVIDERS: Emergency Provider Emergency Medicine; PCP General Practice
DX: L72.3 Sebaceous cyst (principal); E11.9 Type 2 diabetes mellitus without complications; I10 Essential (primary) hypertension; I25.10 Atherosclerotic heart disease of native coronary artery without angina pectoris; I48.91 Unspecified atrial fibrillation; R00.1 Bradycardia, unspecified; Z79.899 Other long term (current) drug therapy; Z79.4 Long term (current) use of insulin
CPT/HCPCS: 10060; 36415; 80053; 82947; 84484; 85025; 93005; 99284; J2004

== ENCOUNTER → 2025-06-21 21:44 | Outpatient (BNV) | payer OTHER, SELFPAY | PROVIDERS: Emergency Provider Emergency Medicine; PCP General Practice; Visit Provider Internal Medicine Cardiovascular Disease | DX: I48.91 Unspecified atrial fibrillation (principal); I25.2 Old myocardial infarction | CPT/HCPCS: 93010 ==

== ENCOUNTER 2025-07-02 19:05 | Emergency (ER) | payer OTHER, SELFPAY ==
--- NOTE | ~2025-07-02 | CT_ITS ---
CLINICAL HISTORY: fall, head strike CT cervical spine without contrast Comparison: 03/07/2025 Findings: No acute fracture or dislocation. Posterior alignment is normal. Moderate degenerative change. No radiopaque foreign bodies. Impression: No acute processes This document has been electronically signed by: Emigdio Lyon MD on 07/02/2025 22:30:19
--- NOTE | ~2025-07-02 | CT_ITS ---
CLINICAL HISTORY: fall, head strike CT head without contrast Comparison: 03/07/2025 Findings: No intracranial mass, midline shift, hydrocephalus, or acute hemorrhage. Moderate chronic ischemic white matter disease with volume loss. No acute process in sinuses or mastoids. No acute bony abnormality. Right posterior parietal scalp hematoma. Impression: No acute intracranial process This document has been electronically signed by: Emigdio Lyon MD on 07/02/2025 22:31:43
[2025-07-02 19:21] VITALS: BP 107/50; BP 118/62; PULSE 66; PULSE 76; RESP 14; TEMP 36.5; O2SAT 94; O2SAT 97; BMI 31.4
--- NOTE | 2025-07-02 19:32 | ECG_ITS ---
Test Reason : FALL Blood Pressure : */* mmHG Vent. Rate : 52 BPM Atrial Rate : * BPM P-R Int : * ms QRS Dur : 90 ms QT Int : 444 ms P-R-T Axes : * 0 22 degrees QTcB Int : 412 ms Atrial fibrillation with slow ventricular response Low voltage QRS Inferior infarct (cited on or before 20-Apr-2025) Abnormal ECG When compared with ECG of 21-Jun-2025 21:44, No significant change was found Referred By: Generic ED Physician Electronically Signed By: EMERSON LIANG
[2025-07-02 20:10] LABS: MANUAL DIFF FLAG NO
[2025-07-02 20:15] LABS: Hematocrit 32.3 % (42.0-52.0); Hemoglobin 9.5 g/dl (14.0-18.0); Imm Gran Abs Auto 0.01 X10*3/uL (0.00-0.03); Imm Gran Pct Auto 0.2 % (0.0-0.4); Lymphocytes Absolute Auto 1.4 X10*3/uL (1.2-4.9); Mean Corpuscular HGB Conc 29.4 g/dl (31.0-36.0); Mean Corpuscular Hemoglobin 24.2 pg (27.0-33.0); Mean Corpuscular Volume 82.4 fL (80.0-98.0); NRBC Abs Auto 0.000 X10*3/uL (0.0-0.012); NRBC Pct Auto 0.0 /100WBC (0.0-0.2); Platelet Count 213 X10*3/uL (160-400); Red Blood Count 3.92 X10*6/uL (4.60-5.80); White Blood Count 6.4 X10*3/uL (4.8-10.8)
[2025-07-02 20:19] LABS: Partial Thromboplastin Time 34.4 SEC (26.7-34.1)
[2025-07-02 20:23] LABS: Alanine Aminotransferase 12 U/L (0-40); Albumin Level 3.7 g/dL (3.5-5.0); Alkaline Phosphatase 100 U/L (39-117); Anion Gap 15 (12-20); Aspartate Amino Transferase 27 U/L (5-37); Blood Urea Nitrogen 32 mg/dL (9-16); Calcium 8.9 mg/dL (8.4-10.2); Carbon Dioxide 31 mmol/L (22-29); Chloride 98 mmol/L (96-108); Creatinine Clr Calc Pharmacy 35.6; Estimated Glomerular Filt Rate 32; Potassium 3.1 mmol/L (3.3-5.1); Sodium 141 mmol/L (135-145); Total Protein 7.3 g/dL (6.5-8.0)
[2025-07-02 20:31] LABS: Troponin-I High Sensitivity 6.7 ng/L (<3.5-35.0)
--- NOTE | 2025-07-02 22:01 | ED.FALL ---
HPI - Fall General Chief Complaint: Fall Stated Complaint: Fall, + head strike Time Seen by Provider: 07/02/25 21:53 Source: EMS Mode of arrival: EMS Limitations: other (Dementia) History of Present Illness ED Provider: Dr. Emily Seymour HPI Narrative: Patient comes to the emergency room via ambulance. According to EMS, patient had a fall today. Patient has history of dementia and does not remember anything. Patient states that he feels completely normal and has no complaints. According to EMS, the son reported that the patient refuses care most of the time at home, tries to ambulate without assistance. Patient's son reports that the patient is very stubborn and it is hard to redirect the patient. According to EMS, they are not sure what his medications are but they note that patient is not take any blood thinners. Also, about a week ago, patient had a cyst drained from his back and they would like to have him checked out . Related Data Home Medications ?Medication ?Instructions ?Recorded ?Confirmed apixaban 5 mg tablet (Eliquis) 5 mg PO BID 09/05/21 03/08/25 donepezil 10 mg tablet 1 tab PO BEDTIME 09/05/21 03/08/25 trcflcma-cjn-qnixg acid 0.4 1 tab PO DAILY 09/05/21 03/08/25 mg-lycopene 300 mcg-lutein 250 mcg tablet (CertaVite Senior) allopurinol 100 mg tablet 50 mg PO DAILY gout pain 10/07/21 03/08/25 insulin syringe-needle U-100 1 mL #10 ea 12/22/21 03/08/25 31 gauge x 04/10 memantine 10 mg tablet 10 mg PO BID 05/08/22 03/08/25 metoprolol tartrate 100 mg tablet 100 mg PO BID 05/08/22 03/08/25 cetirizine 10 mg tablet 10 mg PO DAILY congestion 08/17/23 03/08/25 omeprazole 20 mg capsule,delayed 20 mg PO BID@0630,1630 05/17/24 03/08/25 release sucralfate 1 gram tablet 1 g PO TIDAC 05/17/24 03/08/25 magnesium oxide 250 mg PO DAILY 11/25/24 03/08/25 insulin aspar prt-insulin aspart 76 unit subcut BIDWM 12/24/24 03/08/25 100 unit/mL (70-30) subcutaneous soln (Novolog Mix 70-30 U-100 Insuln) diphenhydramine HCl 25 mg tablet 12.5 mg PO BEDTIME PRN Allergy 01/08/25 03/08/25 (Nell-Dryl) Symptoms dapagliflozin propanediol 5 mg 5 mg PO DAILY 02/27/25 03/08/25 tablet (Farxiga) amlodipine 2.5 mg tablet 2.5 mg PO QAM 03/08/25 03/08/25 Previous Rx's ?Medication ?Instructions ?Recorded atorvastatin 40 mg tablet (Lipitor) 40 mg PO BEDTIME #30 tabs 09/09/21 lancets (Lancets,Ultra Thin) #100 ea 10/21/21 aspirin 81 mg chewable tablet 81 mg PO DAILY #60 tabs 12/03/24 isosorbide mononitrate 60 mg 60 mg PO DAILY #90 tabs 12/03/24 tablet,extended release 24 hr bumetanide 1 mg tablet 2 mg PO DAILY #180 tabs 03/02/25 gabapentin 800 mg tablet 400 mg (1/2 x 800 mg) PO BID #60 03/02/25 tabs polyethylene glycol 3350 17 17 g PO DAILY #119 grams 04/26/25 gram/dose oral powder (Miralax) cephalexin 500 mg capsule 500 mg PO BID #14 caps 05/24/25 finasteride 5 mg tablet 5 mg PO DAILY 90 days #90 tabs 05/26/25 tamsulosin 0.4 mg capsule (Flomax) 0.4 mg PO BEDTIME 90 days #90 caps 05/26/25 doxycycline hyclate 100 mg capsule 100 mg PO BID #13 caps 06/22/25 cefuroxime axetil 250 mg tablet 250 mg PO BID #14 tabs 07/03/25 Allergies Allergy/AdvReac Type Severity Reaction Status Date / Time No Known Allergies Allergy Verified 07/02/25 19:30 Review of Systems Review of Systems: Yes Other (Advanced dementia) [facility] Past Medical History Medical History Seizure CKD stage 3b, GFR 30-44 ml/min CHF exacerbation Chronic atrial fibrillation Diabetes mellitus Alzheimer's dementia Acute hypoxic respiratory failure Pneumonia Pneumonia Acute respiratory failure Hypoxia CAD (coronary artery disease) Trash foot Diabetic foot infection Heart failure with preserved ejection fraction HLD (hyperlipidemia) Atrial fibrillation NSTEMI (non-ST elevated myocardial infarction) Kidney failure Diabetes HTN (hypertension) Surgical History No pertinent past surgical history Family History Family History Father No problems noted. Mother No problems noted. Social History Social History Household Members: Family and Children Household Members Other:: sons and daughter in law Housing: House Do you presently have visiting nurse or other home services: Yes Unable to assess alcohol history related to: Unable to respond Alcohol intake: never Patient Tobacco Use Status: Never used Tobacco e-Cigarette/Vaping Use: Never Used Second Hand Smoke Exposure: No Advance Directives: Yes Advance Directives on File: Yes Advance Directives Date on File: 09/06/21 service: No Current occupational status: retired Physical Exam Exam: Exam: Appearance: Alert. Alert and oriented x1, no acute distress Eyes: Pupils equal, round and reactive to light. ENT: Pharynx normal. Neck: Normal inspection. Neck supple. No lymph nodes noted. No crepitus CVS: Normal heart rate and rhythm. Pulses normal. Normal S1 and S2 Respiratory: No respiratory distress. Breath sounds normal. No Wheezing. No rales Abdomen: Soft and nontender. No rigidity. No distention. Skin: Skin warm and dry. Normal skin color. Normal skin turgor. Patient has a sebaceous cyst in the lower back. Does not seem to be infected. However, the patient patient states that it does hurt. Extremities: No lower extremity edema. No Lacerations. No Rash Neuro: Oriented X 1. No motor deficit. No sensory deficit. Moving all extremities. No slurred speech. CN 2 through 12 grossly intact Psych: calm, cooperative, normal affect Vital Signs: Vital Signs: Last Vital Signs Temp 97.8 F 07/02/25 22:03 Pulse 56 07/02/25 22:03 Resp 14 07/02/25 22:03 BP 119/63 07/02/25 22:03 Pulse Ox 98 07/02/25 22:03 O2 Del Method Room Air 07/02/25 22:03 BMI result Body Mass Index 31.4 Medications Administered Discontinued Medications Generic Name Dose Route Start Last Admin Trade Name Demetrio PRN Reason Stop Dose Admin Potassium Chloride 40 meq 07/02/25 22:04 07/02/25 22:26 Potassium Chloride Packet 20 Meq Packet PO 07/02/25 22:05 40 meq ONCE ONE Administration Medical Decision Making Medical Decision Making [facility] Narrative: My interpretation of labs: No significant abnormality in patient's hematology, chemistry shows a potassium of 3.1, creatinine 2.01 which is at patient's baseline. Patient's potassium being repleted p.o. urinalysis positive for UTI. From previous UTI, patient's urine is sensitive to cephalosporins and pretty much all antibiotics. Patient was given the 1st dose of cefuroxime [address] and cervical spine CT did not show any acute abnormality. Potassium was repleted p.o. Patient lives at home with his son, son is a janitorial maintenance worker. Patient does have a cyst in the back, seems that it has been tried to be drained multiple times in the past. Last time the patient was here it was explained to the patient's family that ideally this should be done by surgery since it keeps regrowing. Patient will likely need marsupialization. Patient was giving a surgery consult Differential Diagnosis Differential Diagnoses: The differential diagnosis associated with the presentation includes (Mechanical fall, UTI, dementia) Admission/Observation Consideration of admission/observation: Escalation of care including admission/observation considered (Given patient's age and symptoms, observation was considered) Lab Data MDM Lab Attestation statement: I reviewed the patient's lab results. 07/02/25 20:00 07/02/25 20:00 Labs: Lab Results 07/02/25 07/03/25 Range/Units 20:00 00:02 WBC 6.4 (4.8-10.8) X10*3/uL RBC 3.92 L (4.60-5.80) X10*6/uL Hgb 9.5 L (14.0-18.0) g/dl Hct 32.3 L (42.0-52.0) % MCV 82.4 (80.0-98.0) fL MCH 24.2 L (27.0-33.0) pg MCHC 29.4 L (31.0-36.0) g/dl RDW 18.0 H (11.0-16.0) % Plt Count 213 (160-400) X10*3/uL MPV 11.1 (9.4-12.4) fL Immature Gran % (Auto) 0.2 (0.0-0.4) % Neut % (Auto) 61.6 (45-73) % Lymph % (Auto) 22.0 (20-40) % [place] % (Auto) 10.7 (2-11) % Eos % (Auto) 4.4 H (0-4) % Baso % (Auto) 1.1 (0-2) % Lymph # (Auto) 1.4 (1.2-4.9) X10*3/uL [place] # (Auto) 0.7 (0.1-1.2) X10*3/uL Eos # (Auto) 0.3 (0.0-0.4) X10*3/uL Baso # (Auto) 0.1 (0.0-0.2) X10*3/uL Abs Immat Gran (auto) 0.01 (0.00-0.03) X10*3/uL Absolute Neuts (auto) 3.9 (2.0-8.3) x10*3/uL Absolute Nucleated RBC 0.000 (0.0-0.012) X10*3/uL Nucleated RBC % (auto) 0.0 (0.0-0.2) /100WBC APTT 34.4 H (26.7-34.1) SEC Sodium 141 (135-145) mmol/L Potassium 3.1 L D (3.3-5.1) mmol/L Chloride 98 (96-108) mmol/L Carbon Dioxide 31 H (22-29) mmol/L Anion Gap 15 (12-20) BUN 32 H (9-16) mg/dL Creatinine 2.01 H (0.5-1.4) mg/dL Estim Creat Clear Calc 35.6 Estimated GFR 32 Random Glucose 154 H (60-115) mg/dL Calcium 8.9 (8.4-10.2) mg/dL Total Bilirubin 0.5 (0.0-1.0) mg/dL AST 27 (5-37) U/L ALT 12 (0-40) U/L Alkaline Phosphatase 100 (39-117) U/L Troponin I High Sens 6.7 (<3.5-35.0) ng/L Total Protein 7.3 (6.5-8.0) g/dL Albumin 3.7 (3.5-5.0) g/dL Urine Color Yellow Urine Appearance Cloudy Urine pH 5.5 (5.0-9.0) Ur Specific [place] 1.010 (1.005-1.025) Urine Protein Trace (Neg-Trace) mg/dL Urine Glucose (UA) >=1000 H (Negative) mg/dL Urine Ketones Negative (Negative) mg/dL Urine Blood Trace H (Negative) Urine Nitrite Negative (Negative) Ur Leukocyte Esterase Large (3+) H (Negative) Urine RBC 0-2 (0-2) /HPF Urine WBC >50 H (0-5) /HPF Ur Squamous Epith Cells 0-2 (0-2) /HPF Urine Bacteria 4+ (None Seen) Hyaline Casts 0-2 (0-2) /LPF Independent Interpretation I performed an independent interpretation of an: CT Scan Radiology Impression Discussion of test interpretation with radiology: I have reviewed the radiologist's reading. Radiologist Impression: No intracranial mass, midline shift, hydrocephalus, or acute hemorrhage. Moderate chronic ischemic white matter disease with volume loss. No acute process in sinuses or mastoids. No acute bony abnormality. Right posterior parietal scalp hematoma. No acute fracture or dislocation. Posterior alignment is normal. Moderate degenerative change. No radiopaque foreign bodies. Critical Care Time Critical Care Time Critical Care Time: Yes Total Critical Care Time: 35 Attestation: I have personally provided critical care time. Time includes review of lab data, radiology results, discussion with consultants, and monitoring for potential decompensation. Intervention performed as documented. Discharge Plan Discharge Clinical Impression: Fall, Acute UTI, Acute recurrent cystitis Patient Disposition: Home, Self-Care Instructions: Urinary Tract Infection in Men (ED), Fall Prevention for Older Adults (ED), Cyst (ED) Additional Instructions: Please follow-up with your primary care physician tomorrow. If you have any worsening or new symptoms, please return to the emergency room or call 911 Prescriptions: New cefuroxime axetil 250 mg tablet 250 mg PO BID Qty: 14 0RF No Action Eliquis 5 mg tablet 5 mg PO BID donepezil 10 mg tablet 1 tab PO BEDTIME CertaVite Senior 0.4-300-250 mg-mcg-mcg tablet 1 tab PO DAILY atorvastatin [Lipitor] 40 mg tablet 40 mg PO BEDTIME Qty: 30 0RF metoprolol tartrate 100 mg tablet 100 mg PO BID memantine 10 mg tablet 10 mg PO BID allopurinol 100 mg tablet 50 mg PO DAILY (DME) lancets [Lancets,Ultra Thin] Misc See Rx Instructions .Route Qty: 100 0RF Rx Instructions: As directed cetirizine 10 mg tablet 10 mg PO DAILY magnesium oxide 250 mg magnesium tablet 250 mg PO DAILY isosorbide mononitrate 60 mg Tablet Extended Release 24 Hr 60 mg PO DAILY Qty: 90 0RF Protocol: Hold for SBP< HOLD for SBP < : 90 aspirin 81 mg Tablet,Chewable 81 mg PO DAILY Qty: 60 0RF insulin asp prt-insulin aspart [Novolog Mix 70-30 U-100 Insuln] 100 unit/mL (70-30) solution 76 unit subcut BIDWM Rx Instructions: INJECT 76 UNITS SUBCUTANEOUSLY TWICE DAILY WITH BREAKFAST AND WITH DINNER dapagliflozin propanediol [Farxiga] 5 mg tablet 5 mg PO DAILY gabapentin 800 mg tablet 400 mg PO BID Qty: 60 0RF bumetanide 1 mg Tablet 2 mg PO DAILY Qty: 180 0RF Protocol: Hold for SBP< HOLD for SBP < : 90 amlodipine 2.5 mg tablet 2.5 mg PO QAM cephalexin 500 mg capsule 500 mg PO BID Qty: 14 0RF doxycycline hyclate 100 mg capsule 100 mg PO BID Qty: 13 0RF omeprazole 20 mg capsule,delayed release(DR/EC) 20 mg PO BID@0630,1630 sucralfate 1 gram tablet 1 g PO TIDAC diphenhydramine HCl [Nell-Dryl] 25 mg tablet 12.5 mg PO BEDTIME PRN (Reason: Allergy Symptoms) polyethylene glycol 3350 [Miralax] 17 gram/dose powder 17 g PO DAILY Qty: 119 0RF (DME) insulin syringe-needle U-100 1 mL 31 gauge x 5/16 syringe See Rx Instructions subcut TID Qty: 10 Rx Instructions: As directed tamsulosin [Flomax] 0.4 mg capsule 0.4 mg PO BEDTIME 90 Days Qty: 90 0RF finasteride 5 mg tablet 5 mg PO DAILY 90 Days Qty: 90 0RF Referrals: Rick Uriarte MD [Physician, General Surgery] Print Language: Khmer
[2025-07-02 22:03] VITALS: BP 119/63; PULSE 56; RESP 14; TEMP 36.6; O2SAT 98
[2025-07-02] MEDS: Potassium Chloride Packet 20 MEQ PACKET 40 MEQ PO (22:26)
--- NOTE | 2025-07-02 22:33 | PC.NURSE ---
Pt found to have c-collar off. Imaging not resulted- placed c-collar back on pt and educated pt on use.
--- NOTE | 2025-07-03 00:02 | PC.NURSE ---
Straight catherization completed. pt tolerated well. urine sample sent down to lab. [facility] provider. Pt changed into clean brief and pants. call [employer] within reach plan of care ongoing
--- NOTE | 2025-07-03 00:11 | MHC.EDTECH ---
Emptied 385ML of yellow urine from straight cath. Urine specimen has been sent down to lab.
[2025-07-03 00:15] LABS: Appearance Urine Cloudy; Glucose Urine UA >=1000 mg/dL (Negative); PH 5.5 (5.0-9.0); Specific Gravity - Urine 1.010 (1.005-1.025); UMIC TRIGGER UACC YES
[2025-07-03 00:17] LABS: UACC Culture Trigger YES
--- NOTE | 2025-07-03 01:14 | PC.NURSE ---
Provided Migdalia with discharge summary and instructions. Migdalia verbalized understanding
--- NOTE | 2025-07-03 01:49 | PC.NURSE ---
Call placed to family- Migdalia to report pt is on his way back home via EMS.
[2025-07-03 01:50] VITALS: BP 122/49; PULSE 74; RESP 16; TEMP 36.1; O2SAT 96
== END 2025-07-03 01:52 | disposition home or self-care (01) ==
PROVIDERS: Emergency Provider Emergency Medicine; PCP General Practice
DX: N39.0 Urinary tract infection, site not specified (principal); L72.8 Other follicular cysts of the skin and subcutaneous tissue; N18.30 Chronic kidney disease, stage 3 unspecified; I50.9 Heart failure, unspecified; G30.9 Alzheimer's disease, unspecified; F02.80 Dementia in other diseases classified elsewhere, unspecified severity, without behavioral disturbance, psychotic disturbance, mood disturbance, and anxiety; Z91.81 History of falling; Z79.899 Other long term (current) drug therapy
CPT/HCPCS: 36415; 51701; 70450; 72125; 80053; 81001; 84484; 85025; 85730; 87086; 87088; 87186; 93005; 99284; 99285

== ENCOUNTER → 2025-07-02 19:29 | Outpatient (BNV) | payer OTHER, SELFPAY | PROVIDERS: Emergency Provider Emergency Medicine; PCP General Practice; Visit Provider Radiology Diagnostic Radiology | DX: S09.90XA Unspecified injury of head, initial encounter (principal); W19.XXXA Unspecified fall, initial encounter | CPT/HCPCS: 70450; 72125 ==

== ENCOUNTER → 2025-07-02 19:32 | Outpatient (BNV) | payer OTHER, SELFPAY | PROVIDERS: Emergency Provider Emergency Medicine; PCP General Practice; Visit Provider Internal Medicine | DX: I48.91 Unspecified atrial fibrillation (principal); I25.2 Old myocardial infarction | CPT/HCPCS: 93010 ==

== ENCOUNTER 2025-07-20 19:16 | Inpatient (IN) | payer OTHER, SELFPAY ==
--- NOTE | ~2025-07-20 | XR_ITS ---
CLINICAL HISTORY: syncope 2 view chest x-ray Comparison: CR - XR CHEST 1V - 03/07/25 16:41 EDT Findings: Small left pleural effusion/atelectatic changes, unchanged in the interval. Heart size is normal. No acute fracture. IMPRESSION: Small left pleural effusion/atelectatic changes, unchanged in the interval. This document has been electronically signed by: Balaji Lopez MD on 07/20/2025 22:34:55
--- NOTE | ~2025-07-20 | CT_ITS ---
CLINICAL HISTORY: syncope, on eliquis CT head without contrast Comparison: CT head 07/02/2025 Findings: No intra-axial mass, midline shift, hydrocephalus, or acute hemorrhage. Small scalp hematoma overlying right frontal parietal convexity. Moderate atrophy-like change and white matter disease. There is no sinus or mastoid fluid. The orbits are unremarkable. No skull fracture. IMPRESSION: 1. No acute intracranial findings. Specifically, no evidence of acute intracranial hemorrhage, mass effect or midline shift. This document has been electronically signed by: Neymar Gordon MD on 07/20/2025 23:35:46
[2025-07-20 19:25] VITALS: BP 90/50; PULSE 60; O2SAT 98; BMI 32.6
--- NOTE | 2025-07-20 19:30 | ECG_ITS ---
Test Reason : SYNCOPE Blood Pressure : */* mmHG Vent. Rate : 53 BPM Atrial Rate : * BPM P-R Int : * ms QRS Dur : 84 ms QT Int : 440 ms P-R-T Axes : * 33 -5 degrees QTcB Int : 412 ms Atrial fibrillation with slow ventricular response Abnormal ECG When compared with ECG of 02-Jul-2025 19:51, Nonspecific T wave abnormality no longer evident in Anterior leads Referred By: Generic ED Physician Electronically Signed By: EMERSON LIANG
[2025-07-20 20:36] LABS: MANUAL DIFF FLAG NO
[2025-07-20 20:38] VITALS: BP 114/53; PULSE 62; RESP 14; TEMP 36.6; O2SAT 93
[2025-07-20 20:43] LABS: Hematocrit 29.8 % (42.0-52.0); Hemoglobin 9.0 g/dl (14.0-18.0); Imm Gran Abs Auto 0.02 X10*3/uL (0.00-0.03); Imm Gran Pct Auto 0.2 % (0.0-0.4); Lymphocytes Absolute Auto 1.2 X10*3/uL (1.2-4.9); Mean Corpuscular HGB Conc 30.2 g/dl (31.0-36.0); Mean Corpuscular Hemoglobin 24.6 pg (27.0-33.0); Mean Corpuscular Volume 81.4 fL (80.0-98.0); NRBC Abs Auto 0.000 X10*3/uL (0.0-0.012); NRBC Pct Auto 0.0 /100WBC (0.0-0.2); Platelet Count 203 X10*3/uL (160-400); Red Blood Count 3.66 X10*6/uL (4.60-5.80); White Blood Count 9.6 X10*3/uL (4.8-10.8)
[2025-07-20 20:52] LABS: INTERNATIONAL NORM RATIO 1.7 (0.9-1.1); Prothrombin Time 19.1 SEC (10.9-12.4)
--- OUTSIDE RECORDS SUMMARY | 2025-07-20 20:54 | XMS_ITS | Encounter Summary ---
Author Organization [employer] Address [address] [facility] [address] [place] [address] Care Team Providers Care Physiology Teacher Name Role Phone Kathy Villafana MD Primary Care Provider [phone] Encounter Details Date Type Department Care Team (Late Contact Info) Description 05/22/2023 Abstract [facility] AD[facility] DENTAL [address] [place], [place] [phone] Tr Tay DDS [address] [place], [place] [phone] Social History Tobacco Use Types Packs/Day Years [...] Description 08/05/2025 3:45 PM EDT Office Visit [facility] MED[facility] [address] [place], [place] [phone] Kathy Villafana MD [address] [place], [place] [phone] 10/06/2025 2:30 PM EST Office Visit [facility] OPTOMETRY [address] [place], [place] [phone] Juannayeli Jenise, OD [address] [place], [place] [phone] documented as of this encounter Visit Diagnoses Not on filedocumented in this encounter Additional Health Concerns Assessment Noted Time PHQ-9 Depression Total Score: 0 01/22/20 23 3:42 PM EST documented as of this encounter Care Teams Physiology Teacher Relationship Specialty Start Date End Date Kathy Villafana MD [address] [place], [place] [phone] PCP - General Family Medicine 08/05/21 [facility] 12/04/24 [facility] 01/15/25 documented as of this encounter
--- OUTSIDE RECORDS SUMMARY | 2025-07-20 20:55 | XMS_ITS | Continuity of Care Document ---
Author Name [facility], Medical Address [address] [place] [id number] Organization Unknown Address [address] [place] [address] Medications No known medications Problems No known problems
--- OUTSIDE RECORDS SUMMARY | 2025-07-20 20:55 | XMS_ITS | Continuity of Care Document ---
Author Name Fabio Woodard Address [address] [place] [id number] Organization Unknown Address [address] [place] [address] Medications No known medications Problems No known problems
--- OUTSIDE RECORDS SUMMARY | 2025-07-20 20:55 | XMS_ITS | Encounter Summary ---
Author Organization [facility] Address [address] [place] [address] [address] [place] [address] Care Team Providers Care Nylon Winder Name Role Phone Kathy Villafana MD Primary Care Provider [phone] Reason for Visit * Reason Comments Med Refill Encounter Details Date Type Department Care Team (Late Contact Info) Description 05/24/2023 Refill [facility] [address] [place] [address] [phone] Kathy Villafana MD [address] [place] [address] [phone] Social History Tobacco Use Types Packs/Day Years [...] Description 08/05/2025 3:45 PM EDT Office Visit [facility] [address] [place] [phone] Kathy Villafana MD [address] [place], [place] [phone] 10/06/2025 2:30 PM EST Office Visit [facility] OPTOMETRY [address] [place], [place] [phone] Jenise Garcia, OD [address] [place], [place] [phone] documented as of this encounter Visit Diagnoses Not on filedocumented in this encounter Additional Health Concerns Assessment Noted Time PHQ-9 Depression Total Score: 0 01/22/20 23 3:42 PM EST documented as of this encounter Care Teams Nylon Winder Relationship Specialty Start Date End Date Kathy Villafana MD [address] [place], [place] [phone] PCP - General Family Medicine 08/05/21 [facility] 12/04/24 [facility] 01/15/25 documented as of this encounter
--- OUTSIDE RECORDS SUMMARY | 2025-07-20 20:55 | XMS_ITS | Clinical Summary ---
Author Organization [employer] Address [address] [facility] [address] [place] [address] Care Team Providers Care Mailroom Assistant Name Role Phone Kathy Villafana MD Primary Care Provider [phone] Allergies No known active allergies Medications Blood Pressure Monitor kit to monitor blood pressure daily Active Acetaminophen Extra Strength 500 MG tablet Take 500 mg by mouth every 6 (six) hours if needed. 022 Active Refresh Tears 0.5 % ophthalmic solution PLACE 1 DROP IN EACH EYE EVERY 4 TO 6 HOURS FOR REDNESS Active Clotrimazole Anti-Fungal 1 % cream APPLY TOPICALLY TO AFFECTED AREA(S) TWICE DAILY FOR 28 DAYS 023 Active Diclofenac Sodium 1 % gelIndications:Ch ronic midline low back pain without sciatica Use twice daily affected areas 150 g Active UltiCare Insulin Syringe 31G X 5/16 1 ML misc USE DIRECTED TWICE DAILY 100 each 11 Active Nell-Lanta 200-200-20 MG/5ML oral suspension TAKE 5 ML BY MOUTH EVERY 6 HOURS NEEDED FOR INDIGESTION FOR UP TO 10 DAYS. 355 mL 3 024 Active FT ClearLax 17 GM/SCOOP powder TAKE 17 GM MIXED IN 8 OUNCES OF WATER ONCE DAILY FOR FOURTEEN DAYS Active memantine (Namenda) 10 MG tablet Take 1 tablet (10 mg) by mouth 2 times daily. TAKE 1 TABLET BY MOUTH TWICE DAILY IN THE MORNING AND IN THE EVENING 180 tablet 3 024 Active Alcohol Swabs (Alcohol Prep) 70 % pads USE DIRECTED THREE TIMES DAILY 100 each 11 11/20/2 024 Active atorvastatin (Lipitor) 40 MG tabletIndications :Other hyperlipidemia TAKE 1 TABLET BY MOUTH AT BEDTIME 90 tablet Active isosorbide mononitrate ER (Imdur) 60 MG 24 hr tablet Take 1 tablet (60 mg) by mouth Once per day. 30 tablet Active TRUEplus Lancets 33G miscIndications:T ype 2 diabetes mellitus with hyperglycemia, with long-term current use of insulin ([facility]) TEST BLOOD SUGAR THREE TIMES DAILY 100 each Active Blood Glucose Monitoring Suppl (FreeStyle Lite) device Inject under the skin 2 times daily. Test daily before all meals/snacks and once before bedtime. 1 each Active Misc. Devices (Pulse Oximeter) misc 1 each if needed (SOB, cough). 1 each Active gabapentin (Neurontin) 800 MG tablet TAKE 1 TABLET BY MOUTH TWICE DAILY IN THE MORNING AND IN THE EVENING 180 tablet Active omeprazole (PriLOSEC) [address] capsule TAKE 1 CAPSULE BY MOUTH TWICE DAILY IN THE MORNING AND IN THE EVENING 180 capsule Active dapagliflozin (Farxiga) 5 MG Take 1 tablet (5 mg) by mouth Once per day. 30 tablet 2025 Active bumetanide (Bumex) 1 MG tablet Take 1 tablet (1 mg) by mouth 2 times daily. 60 tablet Active diphenhydrAMINE (Nell-Dryl) 25 MG tablet TAKE 1/2 TABLET BY MOUTH AT BEDTIME NEEDED 90 tablet Active amLODIPine (Norvasc) 2.5 MG tablet TAKE 1 TABLET BY MOUTH EVERY MORNING 30 tablet Active tamsulosin (Flomax) 0.4 MG 24 hr capsule TAKE 1 CAPSULE BY MOUTH AT BEDTIME 30 capsule Active cetirizine (ZyrTEC) 10 MG tablet TAKE 1 TABLET BY MOUTH EVERY MORNING 90 tablet Active hydrocortisone 2.5 % cream APPLY TOPICALLY TO THE AFFECTED AREA(S) THREE TIMES DAILY IN THE MORNING, AT NOON, AND AT BEDTIME 30 g 1 03/25/2 025 Active apixaban (Eliquis) 5 MG tabletIndications :Atrial fibrillation, unspecified type ([facility]) TAKE 1 TABLET BY MOUTH TWICE DAILY IN THE MORNING AND IN THE EVENING 60 tablet 025 Active sucralfate (Carafate) 1 g tablet TAKE 1 TABLET BY MOUTH THREE TIMES DAILY IN THE MORNING, AT NOON, AND IN THE EVENING BEFORE MEALS 90 tablet Active ketoconazole (NIZOral) 2 % shampoo APPLY TOPICALLY TO SCALP AND ALREDEDOR DE L[place] OREJAS THEN RINSE TWICE A WEEK 120 mL Active white petrolatum gel APPLY TOPICALLY TO THE AFFECTED AREA(S) EVERY DAY NEEDED FOR DRY SKIN 368 g 025 Active Aspirin Low Dose 81 MG chewable tablet TAKE 1 TABLET BY MOUTH EVERY MORNING (CHEW) 90 tablet 1 025 Active NovoLOG MIX 70/30 (70-30) 100 UNIT/ML injectionIndicati ons:Type 2 diabetes mellitus without complication, with long-term current use of insulin ([facility]) INJECT 76 UNITS SUBCUTANEOUSLY TWICE DAILY WITH BREAKFAST AND WITH DINNER 50 mL 025 Active FREESTYLE LITE test stripIndications: Type 2 diabetes mellitus with diabetic neuropathy, with long-term current use of insulin ([facility]) TEST BLOOD SUGAR THREE TIMES DAILY 100 strip 11 025 Active allopurinol (Zyloprim) 100 MG tablet TAKE 1/2 TABLET BY MOUTH EVERY MORNING 45 tablet 3 025 Active metoprolol tartrate (Lopressor) 100 MG tablet TAKE 1 TABLET BY MOUTH TWICE DAILY IN THE MORNING AND IN THE EVENING WITH FOOD 180 tablet 025 Active Multiple Vitamins-Minerals (Cerovite Senior) tablet TAKE 1 TABLET BY MOUTH EVERY MORNING 90 tablet 025 Active magnesium oxide 250 MG tablet TAKE 1 TABLET BY MOUTH EVERY MORNING 90 tablet 025 Active donepezil (Aricept) 10 MG tablet TAKE 1 TABLET BY MOUTH AT BEDTIME 90 tablet 3 025 Active allopurinol (Zyloprim) 100 MG tablet TAKE 1/2 TABLET BY MOUTH EVERY MORNING (GOUT) 45 tablet 3 024 2024 Discontinued Multiple Vitamins-Minerals (Cerovite Senior) tablet TAKE 1 TABLET BY MOUTH EVERY MORNING 90 tablet 025 2024 Discontinued donepezil (Aricept) 10 MG tablet TAKE 1 TABLET BY MOUTH AT BEDTIME 90 tablet 025 2024 Discontinued magnesium oxide 250 MG tablet TAKE 1 TABLET BY MOUTH EVERY MORNING 90 tablet 025 2024 Discontinued metoprolol tartrate (Lopressor) 100 MG tablet TAKE 1 TABLET BY MOUTH TWICE DAILY IN THE MORNING AND IN THE EVENING WITH FOOD 180 tablet 025 2024 Discontinued Active Problems Problem Noted Date Diagnosed Date [...] Villafana, here for a HDF Ad[facility] [place]17-05[facility]19/2024 Patient presented c/o dizziness and [...] recurrent sebaceous cysts on his back, his healthcare economics consultant recently drained one and although there is [...] will be referred to PT/OT clinic for [id number] examination, and after evaluation by PT/OT will order a power mobility device. Chronic periodontitis 05/21/2023 Alzheimer's disease 01/22/2023 Assessment & Plan (05/21/2024 10:21 AM EDT): Continue Donepezil 10mg and Memantine 10mg daily Son is WOOD POLE TREATER, needs assistance with paperwork for medical power or trade mark attorney Decided against medical guardianship due to fears he would become responsible for debts of his father Continue day/night cycles Continue gentle redirection during hallucinations Assessment & Plan (06/15/2023 6:06 AM EDT): Continue Donepezil 10mg and Memantine 10mg daily Son is WOOD POLE TREATER, needs assistance with paperwork for medical power or trade mark attorney Decided against medical guardianship due to fears he would become responsible for debts of his father Continue day/night cycles Continue gentle redirection during hallucinations Assessment & Plan (01/25/2023 1:02 PM EST): Continue Donepezil 10mg Son is WOOD POLE TREATER and medical power or trade mark attorney Atrial fibrillation 01/22/2023 Assessment & Plan [...] 4:09 PM EDT): Patient's family requesting a [employer] ivan meter so he does not have to [...] Encounters Date Type Department Care Team Description 07/13/[address] [address] Kathy Villafana MD 07/07/[address] [address] Kathy Villafana MD ER Follow-up 07/03/2025 Orders Only GENERIC EXTERNAL DATA DEPARTMENT Provider, Generic External Data 07/02/2025 Orders Only GENERIC EXTERNAL DATA DEPARTMENT Provider, Generic External Data 06/29/[address] [facility] [address] [place] [address] Kathy Villafana MD 06/22/[address] [address] Kathy Villafana MD Supplies 06/21/2025 Orders Only GENERIC EXTERNAL DATA DEPARTMENT Provider, Generic External Data 05/24/2025 Orders Only GENERIC EXTERNAL DATA DEPARTMENT Provider, Generic External Data 05/23/2025 Orders Only GENERIC EXTERNAL DATA DEPARTMENT Provider, Generic External Data 05/06/2025 3:30 PM EDT Telemedicine [address] [address] Kathy Villafana MD Chronic renal disease, stage IV (CMS/HCC) (Primary Dx); Paroxysmal atrial fibrillation (CMS/HCC); Type 2 diabetes mellitus with stage 3b chronic kidney disease, with long-term current use of insulin (CMS/HCC); Bragg catheter in place; Type 2 diabetes mellitus with stage 3 chronic kidney disease, with long-term current use of insulin, unspecified whether stage 3a or 3b CKD (CMS/HCC) 05/06/2025 Travel 04/30/[address] [address] Kathy Villafana MD Nurse Triage 04/28/[address] [address] Kathy Villafana MD Nurse Triage 04/20/2025 Orders Only GENERIC EXTERNAL DATA DEPARTMENT Provider, Generic External Data from Last 3 Months Social History Tobacco [...] 65 09/22/2024 2:28 PM EDT Temperature 36.3 C (97.3 F) 09/22/2024 2:28 PM EDT Respiratory Rate 18 09/22/2024 2:28 PM EDT [...] Care Team (Late st Contact Info) Description 08/05/2025 3:45 PM EDT Office Visit [facility] [address] [place] [address] Kathy Villafana MD [address] [place] [address] 10/06/2025 2:30 PM EST Office Visit [facility] [address] [place] [address] Jenise Garcia, OD [address] [place] [address] Health Maintenance Due Date Last Done Comments [...] COVID-19 Vaccine ( - season) 2024 12/21/2021 Diabetes: Hemoglobin A1C 12/23/202409/22/ 024, 07/10/2024, 02/20/2024, Additional history exists Depression Screening 02/19/2025 02/20/2024, 02/20/20 24 Diabetes: Foot Exam 02/19/2025 02/20/2024 Lipid Panel 02/19/2025 02/20/2024, 09/28/2021 SDOH Screening 02/19/2025 02/20/2024 Influenza Vaccine (#1) 2025 Eye Exam 08/29/2025 08/29/2024, 10/02/2024, 08/29/2024, Additional history exists Tobacco Screening 05/06/2026 05/06/2025 Dental X-Ray: Full Mouth 05/22/2026 05/21/2023 HIB [...] patient's age to complete this topic Meningococcal B Vaccine Aged Out No l onger eligible based on patient's age to complete [...] Procedure Name Priority Date/Time Associated Diagnosis Comments URINALYSIS, COMPLETE, WITH REFLEX TO CULTURE Routine 07/03/2025 12:02 AM EDT URINALYSIS WITH REFLEX MICROSCOPIC Routine 07/03/2025 12:02 AM EDT CULTURE, URINE, ROUTINE Routine 07/03/2025 12:[address] HEAD WO CONTRAST Routine 07/02/2025 1 0:[address] CERVICAL SPINE WO CONTRAST Routine 07/02/2025 10:30 PM EDT HIGH SENSITIVITY TROPONIN I Routine 07/02/2025 8:00 PM EDT COMPREHENSIVE METABOLIC PANEL Routine 07/02/2025 8:00 PM EDT APTT Routine 07/02/2025 8:00 PM EDT CBC WITH AUTO DIFFERENTIAL Routine 07/02/2025 8:00 PM EDT GLUCOSE, WHOLE BLOOD Routine 06/21/2025 10:11 PM EDT HIGH SENSITIVITY TROPONIN I Routine 06/21/2025 10:05 PM EDT COMPREHENSIVE METABOLIC PANEL Routine 06/21/2025 10:05 PM EDT CBC WITH AUTO DIFFERENTIAL Routine 06/21/2025 10:05 PM EDT GLUCOSE, WHOLE BLOOD Routine 05/24/2025 4:19 AM EDT GLUCOSE, WHOLE BLOOD Routine 05/24/2025 2:31 AM EDT GLUCOSE, WHOLE BLOOD Routine 05/24/2025 2:02 AM EDT GLUCOSE, WHOLE BLOOD Routine 05/24/2025 1:18 AM EDT GLUCOSE, WHOLE BLOOD Routine 05/24/2025 12:48 AM EDT GLUCOSE, WHOLE BLOOD Routine 05/23/2025 11:48 PM EDT GLUCOSE, WHOLE BLOOD Routine 05/23/2025 10:56 PM EDT URINALYSIS, COMPLETE, WITH REFLEX TO CULTURE Routine 05/23/2025 10:54 PM EDT CULTURE, URINE, ROUTINE Routine 05/23/2025 10:54 PM EDT GLUCOSE, WHOLE BLOOD Routine 05/23/2025 10:09 PM EDT GLUCOSE, WHOLE BLOOD Routine 05/23/2025 9:47 PM EDT VENOUS BLOOD GAS Routine 05/23/2025 9:23 PM EDT GLUCOSE, WHOLE BLOOD Routine 05/23/2025 9:23 PM EDT MAGNESIUM Routine 05/23/2025 9:19 PM EDT COMPREHENSIVE METABOLIC PANEL Routine 05/23/2025 9:19 PM EDT BETA-HYDROXYBUTYRATE Routine 05/23/2025 9:19 PM EDT CBC WITH AUTO DIFFERENTIAL Routine 05/23/2025 9:19 PM EDT HOLD GREEN GEL Routine 05/23/2025 9:18 PM EDT GLUCOSE, WHOLE BLOOD Routine 05/23/2025 9:04 PM EDT DRUG MONITOR, PANEL 1, SCREEN, URINE Routine 04/20/2025 11:45 PM EDT URINALYSIS, COMPLETE, WITH REFLEX TO CULTURE Routine 04/20/2025 11:45 PM EDT SARS COV2/INFLUENZA A/B AND RSV RNA QL NAAT Routine 04/20/2025 8:49 PM EDT HIGH SENSITIVITY TROPONIN I Routine 04/20/2025 8:48 PM EDT B TYPE NATRIURETIC PEPTIDE (BNP) Routine 04/20/2025 8:48 PM EDT ETHANOL Routine 04/20/2025 8:48 PM EDT CBC WITH AUTO DIFFERENTIAL Routine 04/20/2025 8:48 PM EDT MAGNESIUM Routine 04/20/2025 2:14 PM EDT BASIC METABOLIC PANEL Routine 04/20/2025 2:14 PM EDT HEPATIC FUNCTION PANEL Routine 2:14 PM EDT POCT GLYCATED HEMOGLOBIN, TOTAL Routine 09/22/2024 2:39 PM EDT Type 2 diabetes mellitus with diabetic neuropathy, with long-term current use of insulin ([facility]) LIPID PANEL, STANDARD Routine 02/20/2024 3:00 PM EDT Type 2 diabetes mellitus with diabetic neuropathy, with long-term current use of insulin ([facility]) INTRAORAL - COMPLETE SERIES OF RADIOGRAPHIC IMAGES Routine 05/21/2023 2:30 PM EDT PERIODIC ORAL EVALUATION - ESTABLISHED PATIENT Routine 05/21/2023 2:30 PM EDT from Last 3 Months or Most Recently Relevant to Health Maintenance Results * (ABNORMAL) Urinalysis, Complete, with Reflex to Culture (07/03/2025 12:02 AM EDT) Only the most recent of3 resultswithin the time period is included. Color Urine Yellow [facility] Appearance Urine Cloudy [facility] PH 5.5 5.0 - 9.0 [facility] Glucose Urine UA >=1000(A) Negative mg/dL [facility] Urine Blood Trace(A) Negative [facility] Specific [place] - Urine 1.010 1.005 - 1.025 [facility] Urine Protein Trace Neg-Trace mg/dL [facility] Urine Ketones Negative Negative mg/dL [facility] Nitrite Urine Negative Negative [facility] Leukocyte Esterase Urine Large (3+)(A) Negative [facility] RBC Urine 0-2 0 - 2 /HPF [facility] Urine WBC >50(A) 0 - 5 /HPF [facility] Urine Squamous Epithelial Cell 0-2 0 - 2 /HPF [facility] Urine Bacteria 4+ None Seen [facility] Hyaline Casts, Urine 0-2 0 - 2 /LPF [facility] 07/03/2025 12:0 2 AM EDT 07/03/2025 12:10 AM EDT Narrative [facility] - 07/03/2025 12:18 AM EDT [id number], Catheterized us Generic External Data Provider LAB URINE ORDERAB LES Final Result [facility] [address] [place] [phone] * (ABNORMAL) Urinalysis w/reflex microscopic (07/03/2025 12:02 AM EDT) Color Urine Yellow [facility] Appearance Urine Cloudy [facility] PH 5.5 5.0 - 9.0 [facility] Glucose Urine UA >=1000(A) Negative mg/dL [facility] Urine Blood Trace(A) Negative [facility] Specific [place] - Urine 1.010 1.005 - 1.025 [facility] Urine Protein Trace Neg-Trace mg/dL [facility] Urine Ketones Negative Negative mg/dL [facility] Nitrite Urine Negative Negative [facility] Leukocyte Esterase Urine Large (3+)(A) Negative [facility] 07/03/2025 12:0 2 AM EDT 07/03/2025 12:10 AM EDT Narrative [facility] - 07/03/2025 12:15 AM EDT [id number], Catheterized us Generic External Data Provider LAB URINE ORDERAB LES Final Result Performing Organization Address City/State/[facility] Co de Phone Number [facility] [address] [place] [phone] * Culture, Urine, Routine (07/03/2025 12:00 AM EDT) Only the most recent of2 resultswithin the time period is included. Urine Urine specimen from urinary conduit / Unknown 07/03/2025 07/03/2025 Comment:Urine Cath Narrative [facility] - 07/06/2025 7:22 AM EDT Enterobacter cloacae complex Quant > 100,000 cfu/mL Enterobacter cloacae complex: Cefazolin >=32(R) Enterobacter cloacae complex: Cefepime <=0.12(S) Enterobacter cloacae complex: Ciprofloxacin <=0.06(S) Enterobacter cloacae complex: Ertapenem <=0.12(S) Enterobacter cloacae complex: Gentamicin <=1(S) Enterobacter cloacae complex: Nitrofurantoin <=16(S) Enterobacter cloacae complex: Trimethoprim/Sulfamethoxazole <=20(S) Specimen Source: Urine Catheterized us Generic External Data Provider LAB MICROBIOLOGY - GENERAL ORDERABLES Final Result [facility] [address] [place] [phone] * CT Head w/o Contrast (07/02/2025 10:31 PM EDT) Anatomical Region Laterality Modality Head, Neck Computed Tomogra phy 07/02/2025 10:3 1 PM EDT Narrative 07/02/2025 10:33 PM EDT [place] [address] CT Scan Report Signed Patient: Dayton Oquendo MR#: [id number] : 1945 Acct:[id number] Age/Sex: 80 / M ADM Date: 07/02/25 Loc: HO.ED Attending Dr: Ordering Physician: Sofi Oneal Date of Service: 07/02/25 Procedure(s): CT head/brain wo IV con Accession Number(s): [id number] cc: Sofi Oneal; Kathy Villafana Report Number: [id number]: Total DLP = 772.04 mGy-cm CLINICAL HISTORY: fall, head strike CT head without contrast Comparison: 03/07/2025 Findings: No intracranial mass, midline shift, hydrocephalus, or acute hemorrhage. Moderate chronic ischemic white matter disease with volume loss. No acute process in sinuses or mastoids. No acute bony abnormality. Right posterior parietal scalp hematoma. Impression: No acute intracranial process This document has been electronically signed by: Emigdio Lyon MD on 07/02/2025 22:31:43 Dictated By: Emigdio Lyon MD Signed By: <Electronically signed by Emigdio Lyon MD in OV> 07/02/252231 DD/ 30 TD/TT: 07/02/252230 Strategic Planning Analyst: Procedure Note Donotuseinterpreter, Image - 07/02/[address] [address] [address] Scan Report Signed Patient: Dayton Oquendo AMR#: [id number] : 5Acct:[id number] Age/Sex: 80 / MADM Date: 07/02/25 Loc: HO.ED Attending Dr: Ordering Physician: Sofi Oneal Date of Service: 07/02/25 Procedure(s): CT head/brain wo IV con Accession Number(s): [id number] cc: Sofi Oneal; Kathy Villafana Report Number: [id number]: Total DLP = 772.04 mGy-cm CLINICAL HISTORY: fall, head strike CT head without contrast Comparison: 03/07/2025 Findings: No intracranial mass, midline shift, hydrocephalus, or acute hemorrhage. Moderate chronic ischemic white matter disease with volume loss. No acute process in sinuses or mastoids. No acute bony abnormality. Right posterior parietal scalp hematoma. Impression: No acute intracranial process This document has been electronically signed by: Emigdio Lyon MD on 07/02/2025 22:31:43 Dictated By: Emigdio Lyon MD Signed By: <Electronically signed by Emigdio Lyon MD in OV> 07/02/252231 DD/ 30 TD/TT: 07/02/252230 Strategic Planning Analyst: us [facility] External Provider IMG CT PROCEDURES Final Result * CT Cervical Spine w/o Contrast (07/02/2025 10:30 PM EDT) Anatomical Region Laterality Modality Spine, C-spine Computed Tomogra phy 07/02/2025 10:3 0 PM EDT Narrative 07/02/2025 10:32 PM EDT [address] [address] [address] Scan Report Signed Patient: Dayton Oquendo MR#: [id number] : 1945 Acct:[id number] Age/Sex: 80 / M ADM Date: 07/02/25 Loc: HO.ED Attending Dr: Ordering Physician: Sofi Oneal Date of Service: 07/02/25 Procedure(s): CT cervical spine wo IV con Accession Number(s): [id number] cc: Sofi Oneal; Kathy Villafana Report Number: [id number]: Total DLP = 497.38 mGy-cm CLINICAL HISTORY: fall, head strike CT cervical spine without contrast Comparison: 03/07/2025 Findings: No acute fracture or dislocation. Posterior alignment is normal. Moderate degenerative change. No radiopaque foreign bodies. Impression: No acute processes This document has been electronically signed by: Emigdio Lyon MD on 07/02/2025 22:30:19 Dictated By: Emigdio Lyon MD Signed By: <Electronically signed by Emigdio Lyon MD in OV> 07/02/252230 DD/ 29 TD/TT: 07/02/252229 Strategic Planning Analyst: Procedure Note Doncarineinterpreter, Image - 07/02/[address] [place] [address] [address] Scan Report Signed Patient: Dayton Oquendo AMR#: [id number] : 5Acct:[id number] Age/Sex: 80 / MADM Date: 07/02/25 Loc: .ED Attending Dr: Ordering Physician: Sofi Oneal Date of Service: 07/02/25 Procedure(s): CT cervical spine wo IV con Accession Number(s): [id number] cc: Sofi Oneal; Kathy Villafana Report Number: [id number]: Total DLP = 497.38 mGy-cm CLINICAL HISTORY: fall, head strike CT cervical spine without contrast Comparison: 03/07/2025 Findings: No acute fracture or dislocation. Posterior alignment is normal. Moderate degenerative change. No radiopaque foreign bodies. Impression: No acute processes This document has been electronically signed by: Emigdio Lyon MD on 07/02/2025 22:30:19 Dictated By: Emigdio Lyon MD Signed By: <Electronically signed by Emigdio Lyon MD in OV> 07/02/252230 DD/ 29 TD/TT: 07/02/252229 Strategic Planning Analyst: [facility] External Provider IMG CT PROCEDURES Final Result * High Sensitivity Troponin I (07/02/2025 8:00 PM EDT) Only the most recent of3 resultswithin the time period is included. [facility] TROPONIN I HIGH SENSITIVITY 6.7 <3.5 - 35.0 ng/L [facility] Comment:The Patel high sens itivity Troponin-I results should beused in conjunction with other diagnostic information suchas ECG, clinical observations and information, and patientsymptoms to aid in the diagnosis of [place]. 07/02/2025 8:00 PM EDT 07/02/2025 8:07 PM EDT Generic External Data Provider LAB BLOOD ORDERAB LES Final Result [facility] [address] [place] [phone] * (ABNORMAL) CBC auto differential (07/02/2025 8:00 PM EDT) Only the most recent of4 resultswithin the time period is included. [facility] White Blood Count 6.4 4.8 - 10.8 X10*3/uL [facility] Red Blood Count 3.92(L) 4.60 - 5.80 X10*6/uL [facility] Hemoglobin 9.5(L) 14.0 - 18.0 g/dl [facility] Hematocrit 32.3(L) 42.0 - 52.0 % [facility] Mean Corpuscular Volume 82.4 80.0 - 98.0 fL [facility] Mean Corpuscular Hemoglobin 24.2(L) 27.0 - 33.0 pg [facility] Mean Corpuscular HGB Conc 29.4(L) 31.0 - 36.0 g/dl [facility] Red Cell Distribution Width 18.0(H) 11.0 - 16.0 % [facility] Platelet Count 213 160 - 400 X10*3/uL [facility] Mean Platelet Volume 11.1 9.4 - 12.4 fL [facility] Neutrophils Percent Auto 61.6 45 - 73 % [facility] Imm Gran Pct Auto 0.2 0.0 - 0.4 % [facility] Lymphocytes Percent Auto 22.0 20 - 40 % [facility] Monocytes Percent Auto 10.7 2 - 11 % [facility] Eosinophils Percent Auto 4.4(H) 0 - 4 % [facility] Basophils Percent Auto 1.1 0 - 2 % [facility] NRBC Pct Auto 0.0 0.0 - 0.2 /100WBC [facility] Neutrophils Absolute Auto 3.9 2.0 - 8.3 x10*3/uL [facility] Imm Gran Abs Auto 0.01 0.00 - 0.03 X10*3/uL [facility] Lymphocytes Absolute Auto 1.4 1.2 - 4.9 X10*3/uL [facility] Monocytes Absolute Auto 0.7 0.1 - 1.2 X10*3/uL [facility] Eosinophils Absolute Auto 0.3 0.0 - 0.4 X10*3/uL [facility] Basophils Absolute Auto 0.1 0.0 - 0.2 X10*3/uL [facility] NRBC Abs Auto 0.000 0.0 - 0.012 X10*3/uL [facility] 07/02/2025 8:00 PM EDT 07/02/2025 8:07 PM EDT us Generic External Data Provider LAB BLOOD ORDERAB LES Final Result [facility] [address] [place] [address] [phone] * (ABNORMAL) Partial Thromboplastin Time, Activated (APTT) (07/02/2025 8:00 PM EDT) Partial Thromboplastin Time 34.4(H) 26.7 - 34.1 SEC [facility] 07/02/2025 8:00 PM EDT 07/02/2025 8:07 PM EDT us Generic External Data Provider LAB BLOOD ORDERAB LES Final Result [facility] [address] [place], [place] [phone] * (ABNORMAL) Comprehensive Metabolic Panel (07/02/2025 8:00 PM EDT) Only the most recent of3 resultswithin the time period is included. Sodium 141 135 - 145 mmol/L [facility] Potassium 3.1(L) 3.3 - 5.1 mmol/L [facility] Chloride 98 96 - 108 mmol/L [facility] Carbon Dioxide 31(H) 22 - 29 mmol/L [facility] Anion Gap 15 12 - 20 [facility] Urea Nitrogen (BUN) 32(H) 9 - 16 mg/dL [facility] Creatinine, Serum 2.01(H) 0.5 - 1.4 mg/dL [facility] Creatinine Clr Calc Pharmacy 35.6 [facility] Comment:eGFR (calculated fro m the MDRD study equation) and eCrCl(calculated from the Cockcroft-Gault equation) are based ondifferent parameters and may not yield comparable results.If eCrCl result is absurd, please check patient'sheight/weight. Estimated Glomerular Filt Rate 32 [facility] Comment:Chronic Kidney Disea se: Estimated GFR < 60 mL/min/1.38w0Tkuloo Kidney Disease: Estimated GFR < 15 mL/min/1.73m2 Glucose 154(H) 60 - 115 mg/dL [facility] Calcium 8.9 8.4 - 10.2 mg/dL [facility] Bilirubin, Total 0.5 0.0 - 1.0 mg/dL [facility] Aspartate Amino Transferase 27 5 - 37 U/L [facility] Alanine Aminotransferase 12 0 - 40 U/L [facility] Total Protein 7.3 6.5 - 8.0 g/dL [facility] Albumin Level 3.7 3.5 - 5.0 g/dL [facility] Alkaline Phosphatase 100 39 - 117 U/L [facility] 07/02/2025 8:00 PM EDT 07/02/2025 8:07 PM EDT Generic External Data Provider LAB BLOOD ORDERAB LES Final Result Performing Organization Address [facility]/ZIP Co de Phone Number [facility] [address] [place] [address] [phone] * (ABNORMAL) Glucose, Whole Blood (06/21/2025 10:11 PM EDT) Only the most recent of12 resultswithin the time period is included. Glucose, Whole Blood 336(H) 60 - 115 mg/dL [facility] Comment:METER #: [id number] 06/21/2025 10:1 1 PM EDT 06/21/2025 10:15 PM EDT Generic External Data Provider LAB BLOOD ORDERAB LES Final Result Performing Organization Address [facility] Co de Phone Number [facility] [address] [place] [address] [phone] * (ABNORMAL) VENOUS BLOOD GAS (05/23/2025 9:23 PM EDT) VBG pH 7.48(H) 7.32 - 7.43 [facility] Comment:METER #: [id number] additional_comment: Cb patlha VBG PCO2 42 mmHg [facility] Comment:METER #: [id number] additional_comment: Cb patlha VBG PO2 48 mmHg [facility] Comment:METER #: [id number] additional_comment: Cb patlha VBG Base Excess 7.4 mmol/L [facility] Comment:METER #: [id number] additional_comment: Gary falcon VBG HCO3 31(H) 22 - 26 mmol/L [facility] Comment:METER #: [id number] additional_comment: Gary falcon O2 Sat, Cas 72.0 % [facility] Comment:METER #: [id number] additional_comment: Gary falcon 05/23/2025 9:23 PM EDT 05/23/2025 9:26 PM EDT us Generic External Data Provider LAB BLOOD ORDERAB LES Final Result Performing Organization Address [facility]/ZIP Co de Phone Number [facility] [address] [place] [phone] * Beta-Hydroxybutyrate (05/23/2025 9:19 PM EDT) Beta-Hydroxybut yrate 0.18 0.02 - 0.27 mmol/L [facility] 05/23/2025 9:19 PM EDT 05/23/2025 9:22 PM EDT Generic External Data Provider LAB BLOOD ORDERAB LES Final Result Performing Organization Address [facility] Phone Number [facility] [address] [place] [phone] * Magnesium (05/23/2025 9:19 PM EDT) Only the most recent of2 resultswithin the time period is included. Magnesium 2.3 1.6 - 2.6 mg/dL [facility] 05/23/2025 9:19 PM EDT 05/23/2025 9:22 PM EDT Generic External Data Provider LAB BLOOD ORDERAB LES Final Result Performing Organization Address [facility] Co de Phone Number [facility] [address] [place] [phone] * Hold Green Gel (05/23/2025 9:18 PM EDT) Hold Green Gel See Note [facility] Comment:Specimen held untest ed for 24 hours; Call to requestChemistry testing. 05/23/2025 9:18 PM EDT 05/23/2025 9:25 PM EDT Generic External Data Provider HISTORICAL/NON OR DERABLE LABS Final Result [facility] [address] [place] [address] [phone] * Drug Monitoring, Panel 1, Screen, Urine (04/20/2025 11:45 PM EDT) Opiate Screen Urine Not Detected Not Detect [facility] Comment:Opiate cut-off is 30 0 ng/mL.Positive results are unconfirmed and should not be used fornon-medical purposes. Barbiturates, Urine Not Detected Not Detect [facility] Comment:Barbiturate cut-off is 200 ng/mL.Positive results are unconfirmed and should not be used fornon-medical purposes. Phencyclidine Screen Urine Not Detected Not Detect [facility] Comment:Phencyclidine cut-of f is 25 ng/mL.Positive results are unconfirmed and should not be used fornon-medical purposes. Amphetamine Screen Urine Not Detected Not Detect [facility] Comment:Amphetamine cut-off is 1000 ng/mL.Positive results are unconfirmed and should not be used fornon-medical purposes. Benzodiazepines Screen Urine Not Detected Not Detect [facility] Comment:Benzodiazepine cut-o ff is 200 ng/mL.Positive results are unconfirmed and should not be used fornon-medical purposes. Cocaine Screen Urine Not Detected Not Detect [facility] Comment:Cocaine cut-off is 3 00 ng/mL.Positive results are unconfirmed and should not be used fornon-medical purposes. Cannabinoid Screen Urine Not Detected Not Detect [facility] Comment:Cannabinoid cut-off is 50 ng/mL.Positive results are unconfirmed and should not be used fornon-medical purposes. Methadone Screen, Urine Not Detected Not Detect ng/mL [facility] Comment:Methadone cut-off is 300 ng/mL.Positive results are unconfirmed and should not be used fornon-medical purposes. FENTANYL URINE Not Detected Not Detect [facility] Comment:Fentanyl cut-off is 1 ng/mL.Positive results are unconfirmed and should not be used fornon-medical purposes. Oxycodone Urine Screen Not Detected Not Detect ng/mL [facility] Comment:Oxycodone cut-off is 100 ng/mL.Positive results are unconfirmed and should not be used fornon-medical purposes. Buprenorphine Screen Not Detected Not Detect ng/mL [facility] Comment:Buprenorphine cut-of f is 5 ng/mL.Positive results are unconfirmed and should not be used fornon-medical purposes. 04/20/2025 11:4 5 PM EDT 04/20/2025 11:46 PM EDT us Generic External Data Provider LAB URINE ORDERAB LES Final Result [facility] [address] [place] [address] [phone] * SARS-CoV-2 RNA, Influenza A/B, and RSV RNA, Ql NAAT (04/20/2025 8:49 PM EDT) Influenza A PCR NEGATIVE Negative [facility] Influenza B PCR NEGATIVE Negative [facility] Resp Syncy Virus RNA Qual PCR NEGATIVE Negative [facility] SARS COV2 PCR NEGATIVE Negative [facility] Comment:All test results mus t [...] use by authorized laboratories.Testing performed on the [employer] GeneXpert utilizingreal-time RT-PCR.All SARS CoV2 and positive influenza A/B results arereported to [facility]. 04/20/2025 8:49 PM EDT 04/20/2025 8:58 PM EDT Generic External Data Provider LAB MICROBIOLOGY - GENERAL ORDERABLES Final Result Performing Organization Address [facility] Co de Phone Number [facility] [address] [place] [phone] * Ethanol (04/20/2025 8:48 PM EDT) ETHANOL (MG/DL) IN SER/PLAS <10 mg/dL [facility] Comment:Serum/plasma ethanol results are to be used formedical/treatment purposes only. 04/20/2025 8:48 PM EDT 04/20/2025 8:58 PM EDT Generic External Data Provider LAB BLOOD ORDERAB LES Final Result Performing Organization Address [facility] de Phone Number [facility] [address] [place] [phone] * (ABNORMAL) B Type Natriuretic Peptide (BNP) (04/20/2025 8:48 PM EDT) B Type Natriuretic Peptide 205(H) <100 pg/mL [facility] 04/20/2025 8:48 PM EDT 04/20/2025 8:58 PM EDT Generic External Data Provider LAB BLOOD ORDERAB LES Final Result Performing Organization Address [facility] de Phone Number [facility] [address] [place] [phone] * Hepatic Function Panel (04/20/2025 2:14 PM EDT) Bilirubin, Total 0.7 0.0 - 1.0 mg/dL [facility] Bilirubin, Direct 0.2 0.0 - 0.5 mg/dL [facility] Aspartate Amino Transferase 24 5 - 37 U/L [facility] Alanine Aminotransferase 10 0 - 40 U/L [facility] Total Protein 7.3 6.5 - 8.0 g/dL [facility] Albumin Level 3.8 3.5 - 5.0 g/dL [facility] Alkaline Phosphatase 93 39 - 117 U/L [facility] 04/20/2025 2:14 PM EDT 04/20/2025 8:58 PM EDT us Generic External Data Provider LAB BLOOD ORDERAB LES Final Result [facility] [address] [place] [phone] [phone] * (ABNORMAL) Basic Metabolic Panel (04/20/2025 2:14 PM EDT) Sodium 138 135 - 145 mmol/L [facility] Potassium 3.6 3.3 - 5.1 mmol/L [facility] Chloride 97 96 - 108 mmol/L [facility] Carbon Dioxide 24 22 - 29 mmol/L [facility] Anion Gap 21(H) 12 - 20 [facility] Urea Nitrogen (BUN) 35(H) 9 - 16 mg/dL [facility] Creatinine, Serum 1.91(H) 0.5 - 1.4 mg/dL [facility] Creatinine Clr Calc Pharmacy 39.3 [facility] Comment:eGFR (calculated fro m the MDRD study equation) and eCrCl(calculated from the Cockcroft-Gault equation) are based ondifferent parameters and may not yield comparable results.If eCrCl result is absurd, please check patient'sheight/weight. Estimated Glomerular Filt Rate 34 [facility] Comment:Chronic Kidney Disea se: Estimated GFR < 60 mL/min/1.74x2Kbhcji Kidney Disease: Estimated GFR < 15 mL/min/1.73m2 Glucose 262(H) 60 - 115 mg/dL [facility] Calcium 8.8 8.4 - 10.2 mg/dL [facility] 04/20/2025 2:14 PM EDT 04/20/2025 8:58 PM EDT us Generic External Data Provider LAB BLOOD ORDERAB LES Final Result [facility] [address] [place] [phone] * (ABNORMAL) POCT HGB A1C (09/22/2024 2:39 PM EDT) Hemoglobin A1C 8.8(A) 4.0 - 6.0 % QC Media Lot # [id number] Lot# Expiration Date 840 Blood 09/22/2024 2:39 PM EDT Kathy Villafana MD POINT OF CARE TEST ENTER/EDIT ORDERABLES Final Result * (ABNORMAL) Lipid Panel, Standard (02/20/2024 3:00 PM EDT) Triglycerides 186(H) <150 mg/dL [facility] Comment:Desirable Triglyceri de: less than 150 mg/dLBorderline High Triglyceride 150-199 mg/dLHigh Triglyceride: 200-499 mg/dLVery High Triglyceride: greater than or equal to 5OO mg/dL Cholesterol 159 <200 mg/dL [facility] Comment:Desirable Cholestero l: less than 200 mg/dLBorderline High Cholesterol: 200-239 mg/dLHigh Cholesterol: greater than 239 mg/dL LDL Cholesterol Calculated 78 <100 mg/dL [facility] Comment:Desirable LDL: less than 100 mg/dLNear Optimal/Above Optimal LDL: 110- 129 mg/dLBorderline High LDL: 130-159 mg/dLHigh LDL: 160-189 mg/dLVery High LDL: greater than or equal to 190 mg/dL HDL Cholesterol 44 >40 mg/dL [facility] Comment:Desirable HDL: great er than 40 mg/dL Note: This HDL assay may give artificially low results in patients with liver disease. 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
--- OUTSIDE RECORDS SUMMARY | 2025-07-20 20:55 | XMS_ITS | Continuity of Care Document ---
Author Name Fabio Woodard Address [address] [place] [phone] Organization Unknown Address [address] [place] [address] Medications No known medications Problems No known problems
--- OUTSIDE RECORDS SUMMARY | 2025-07-20 20:55 | XMS_ITS | Encounter Summary ---
Author Organization [employer] Address [address] [place] [address] Care Team Providers Care Custodian Blood Bank Name Role Phone Kathy Villafana MD Primary Care Provider [phone] Reason for Visit * Reason Comments Med Refill Encounter Details Date Type Department Care Team (Late st Contact Info) Description 11/28/[address] [facility] [address] [place], [place] [phone] Kathy Villafana MD [address] [place], [place] [phone] Social History Tobacco Use Types Packs/Day Years [...] 08/05/2025 3:45 PM EDT Office [facility] [address] [place] [address] Kathy Villafana MD [address] [place] [address] 10/06/2025 2:30 PM EST Office Visit [facility] [address] [place] [address] Tarka, Jenise, OD [address] [place] [address] documented as of this encounter Visit Diagnoses Not on filedocumented in this encounter Additional Health Concerns Assessment Noted Time PHQ-9 Depression Total Score: 0 01/22/20 23 3:42 PM EST documented as of this encounter Care Teams Custodian Blood Bank Relationship Specialty Start Date End Date Kathy Villafana MD [address] [place] [phone] PCP - General Family Medicine 08/05/21 [facility] 12/04/24 [facility] 01/15/25 documented as of this encounter
--- OUTSIDE RECORDS SUMMARY | 2025-07-20 20:55 | XMS_ITS | Encounter Summary ---
Author Organization [employer] Address [address] [facility] [address]t [place] [address] Care Team Providers Care Stenographic Court Reporter Name Role Phone Kathy Villafana MD Primary Care Provider [phone] Encounter Details Date Type Department Care Team (Late st Contact Info) Description 12/12/2022 Orders Only [facility] [address] [place] [address] Mary Ann Skaggs LPN Social History Tobacco [...] Description 08/05/2025 3:45 PM EDT Office Visit [facility] MED[facility] [address] [place] [address] Kathy Villafana MD [address] [place] [address] 10/06/2025 2:30 PM EST Office Visit [facility] OPTOMETRY [address] [place] [address] Jenise Garcia OD [address] [place] [address] documented as of this encounter Visit Diagnoses Not on filedocumented in this encounter Care Teams Stenographic Court Reporter Relationship Specialty Start Date End Date Kathy Villafana MD [address] [place] [address] PCP - General Family Medicine 08/05/21 [facility] 12/04/24 [facility] A 01/15/25 documented as of this encounter
--- OUTSIDE RECORDS SUMMARY | 2025-07-20 20:55 | XMS_ITS | Encounter Summary ---
Author Organization [employer] Address [address] [facility] 7t [place] [address] Care Team Providers Care Uniform Attendant Name Role Phone Kathy Villafana MD Primary Care Provider [phone] Reason for Visit * Reason Onset Date Comments Hospital Follow-up 06/05/2024 Encounter Details Date Type Department Care Team ([facility] st Contact Info) Description 06/05/2024 Telephone [facility] [address] [place], [place] [phone] Kathy Villafana MD [address] [place], [place] [phone] Hospital Follow-up Social History Tobacco Use Types [...] from pt requesting a HDF appt. Hospital: [facility] Date of admission: 05/19 Discharge date: 05/21 Diagnosed: Fever and swelling documented in this encounter Plan of Treatment Upcoming Encounters Date Type Department Care Team (Late st Contact Info) Description 08/05/2025 3:45 PM EDT Office Visit [facility] [address] [place] [address] Kathy Villafana MD [address] [place] [address] 10/06/2025 2:30 PM EST Office Visit [facility] [address] [place] [address] Jenise Garcia, OD [address] [place] [address] documented as of this encounter Visit Diagnoses Not on filedocumented in this encounter Additional Health Concerns Assessment Noted Time PHQ-9 Depression Total Score: 0 02/20/20 2:34 PM EDT documented as of this encounter Care Teams Uniform Attendant Relationship Specialty Start Date End Date Kathy Villafana MD [address] [place] [address] PCP - General Family Medicine 08/05/21 [facility] 12/04/24 Corinne HOOKS 01/15/25 documented as of this encounter
--- OUTSIDE RECORDS SUMMARY | 2025-07-20 20:55 | XMS_ITS | Encounter Summary ---
Author Organization [facility] Address [address] [place] [address] Phone Care Team Providers Care Bilingual Student Tutor Name Role Phone Kathy Villafana MD Primary Care Provider [phone] Reason for Visit * Reason Comments Med Refill Encounter Details Date Type Department Care Team (Late st Contact Info) Description 07/14/2022 Refill [facility] [address] [place] [phone] Salty Kim, DO [address] [place] [phone] Social History Tobacco Use Types Packs/Day Years [...] on filedocumented in this encounter Care Teams Bilingual Student Tutor Relationship Specialty Start Date End Date Kathy Villafana MD PCP - General Business Information Analyst 10/13/21 documented as of this encounter
--- OUTSIDE RECORDS SUMMARY | 2025-07-20 20:55 | XMS_ITS | Encounter Summary ---
Author Organization [employer] Address [address] [facility] 7[address] [place] [address] Care Team Providers Care National Account Director Name Role Phone Kathy Villafana MD Primary Care Provider [phone] Reason for Visit * Reason Onset Date Comments Appointment Request 02/12/2025 Encounter Details Date Type Department Care Team ([facility] st Contact Info) Description 02/12/[address] [facility] [address] [place], [place] [phone] Kathy Villafana MD [address] [place], [place] [phone] Appointment Request Social History Tobacco Use Types [...] Description 08/05/2025 3:45 PM EDT Office Visit [facility] [address] [place] [address] Kathy Villafana MD [address] [place] [address] 10/06/2025 2:30 PM EST Office Visit [facility] OPTOMETRY [address] [place] [address] TarkaJenise, OD [address] [place] [address] documented as of this encounter Visit Diagnoses Not on filedocumented in this encounter Additional Health Concerns Assessment Noted Time PHQ-9 Depression Total Score: 0 02/20/20 24 2:34 PM EDT documented as of this encounter Care Teams National Account Director Relationship Specialty Start Date End Date Kathy Villafana MD [address] [place] [address] PCP - General Family Medicine 08/05/21 [facility] 12/04/24 Corinne HOOKS 01/15/25 documented as of this encounter
--- OUTSIDE RECORDS SUMMARY | 2025-07-20 20:55 | XMS_ITS | Encounter Summary ---
Author Organization [employer] Address [address] [place] [address] Care Team Providers Care Landing Signal Officer Name Role Phone Kathy Villafana MD Primary Care Provider [phone] Encounter Details Date Type Department Care Team ([facility] st Contact Info) Description 01/09/2025 Orders Only [facility] [address] [place], [place] [phone] Kathy Villafana MD [address] [place], [place] [phone] Social History Tobacco Use Types Packs/Day Years [...] Description 08/05/2025 3:45 PM EDT Office Visit [facility] [address] [place] [address] Kathy Villafana MD [address] [place] [address] 10/06/2025 2:30 PM EST Office Visit [facility] OPTOMET[facility] [address] [place] [address] Tarka, Jenise, OD [address] [place] [address] documented as of this encounter Visit Diagnoses Not on filedocumented in this encounter Additional Health Concerns Assessment Noted Time PHQ-9 Depression Total Score: 0 02/20/20 24 2:34 PM EDT documented as of this encounter Care Teams Landing Signal Officer Relationship Specialty Start Date End Date Kathy Villafana MD [address] [place] [address] PCP - General Family Medicine 08/05/21 [facility] 12/04/24 [facility] 01/15/25 documented as of this encounter
--- OUTSIDE RECORDS SUMMARY | 2025-07-20 20:55 | XMS_ITS | Encounter Summary ---
Author Organization [employer] Address [address] [place] [address] 7t [place] [address] Care Team Providers Care Tube Wrapper Name Role Phone Kathy Villafana MD Primary Care Provider [phone] Reason for Visit * Reason Comments Med Refill Encounter Details Date Type Department Care Team (Late Contact Info) Description 05/16/2023 Refill [facility] [address] [place] [address] [phone] Kathy Villafana MD [address] [place] [address] [phone] Social History Tobacco Use Types Packs/Day Years [...] Description 08/05/2025 3:45 PM EDT Office Visit [facility] [address] [place] [address] [phone] Kathy Villafana MD [address] [place] [address] [phone] 10/06/2025 2:30 PM EST Office Visit [facility] [address] [place] [address] Jenise Garcia, OD [address] [place] [address] documented as of this encounter Visit Diagnoses Not on filedocumented in this encounter Additional Health Concerns Assessment Noted Time PHQ-9 Depression Total Score: 0 01/22/20 23 3:42 PM EST documented as of this encounter Care Teams Tube Wrapper Relationship Specialty Start Date End Date Kathy Villafana MD [address] [place] [address] PCP - General Family Medicine 08/05/21 [facility] 12/04/24 Corinne [facility]NA 01/15/25 documented as of this encounter
--- OUTSIDE RECORDS SUMMARY | 2025-07-20 20:55 | XMS_ITS | Encounter Summary ---
Author Organization [facility] Address [address] [place] [address] Encounters * CPT with Fabio Woodard at [facility] on 2025-05-24 { reasonForRequest : Patient is having problems w/ his Montelongo Cath, urine is coming out the sides. , patientReports : , denies :[], chiefComplai nts : Urinary Catheter/Nephrostomy Tube Problems , pmh : Dementia (e.g., Alzheimer's Disease), Diabetes Mellitus Type 2, Gastroesophageal Reflux Disease (GERD), Hypertension, Hyperlipidemia , allergies : No Known Drug Allergies , otherAllergies : , painAssessment : , visitOutcome : &quot ;, additionalComments : 80 y.o male complains of Urinary Catheter/Nephrostomy Tube Problems\n\nPatients daughter calling in to place a referrral.\nPatient with an indwelling montelongo, hasbeen in >3 weeks.\nPer daughter it is leaking around the urethra, +blood.\nThere is urine in the tubing and bag.\nShe is concerned that that it may be clogged.\nHe has an appt with the urologist May 26.\nShe denies that he is having any abdominal pain/pressure.\n\n\nI provided information on the mobile health provider response time and advised the patient and/or caregiver to monitor reported signs and symptoms. I discussed the warning signs of when to seek emergency care. } Was dispatched for a 80 Y/O male [...] of insulin about an hour prior to [facility] arrival after the PT BGL was reading 311. [facility] was contacted, [facility] suggested transport to the ED due to the PT having sugar in his urine and his BGL being over 500. Family was against it at first. [facility] suggested to the family if they do not want him going to the ED to have an ALS unit come out and give fluids to help lower his BGL, family was okay with this. Dispatched was contacted for an ALS unit for fluids to be given. Dispatched advised there was no ALS available for sometime, after some convincingfamily was okay with the PT being transported to the hospital. EMS arrived, PT was transported to [facility] W/O incident. Crew cleared. URINE_DIPSTICK, WOUND_CARE, STRAIGHT_CATHETERIZATION, CULTURE_URINE Written by Fabio Woodard on 2025-05-24
--- OUTSIDE RECORDS SUMMARY | 2025-07-20 20:55 | XMS_ITS | Encounter Summary ---
Author Organization [employer] Address [address] 7t [place] [address] Care Team Providers Care Steamfitter Name Role Phone Kathy Villafana MD Primary Care Provider [phone] Encounter Details Date Type Department Care Team ([facility] st Contact Info) Description 02/09/2025 Telephone [facility] [address] [place], [place] [phone] Kathy Villafana MD [address] [place], [place] [phone] Social History Tobacco Use Types Packs/Day Years [...] Description 08/05/2025 3:45 PM EDT Office Visit [facility] [address] [place] [address] Katyh Villafana MD [address] [place] [address] 10/06/2025 2:30 PM EST Office Visit [facility] OPTOMETRY [address] [place] [address] Tarka, Jenise, OD [address] [place] [address] documented as of this encounter Visit Diagnoses Not on filedocumented in this encounter Additional Health Concerns Assessment Noted Time PHQ-9 Depression Total Score: 0 02/20/20 24 2:34 PM EDT documented as of this encounter Care Teams Steamfitter Relationship Specialty Start Date End Date Kathy Villafana MD [address] [place] [phone] PCP - General Family Medicine 08/05/21 [facility] 12/04/24 Corinne [facility] 01/15/25 documented as of this encounter
--- OUTSIDE RECORDS SUMMARY | 2025-07-20 20:55 | XMS_ITS | Encounter Summary ---
Author Organization [employer] Address [address] [facility] 7t [place] [address] Care Team Providers Care Good Humor Vendor Name Role Phone Kathy Villafana MD Primary Care Provider [phone] Reason for Visit * Reason Onset Date Comments Hospital Follow-up 01/20/2025 Encounter Details Date Type Department Care Team ([facility] st Contact Info) Description 01/20/2025 Telephone [facility] [address] [place], [place] [phone] Kathy Villafana MD [address] [place], [place] [phone] Hospital Follow-up Social History Tobacco Use Types [...] from pt requesting a HDF appt. [place] [facility] [place] of admission: 01/08/2025 Discharge date: 01/13/2025 Diagnosed:hypoxic respiratory failure *Send message to [place] Clinical Care Coordinators documented in this encounter Plan of Treatment Upcoming Encounters Date Type Department Care Team (Late st Contact Info) Description 08/05/2025 3:45 PM EDT Office Visit [facility] [address] [place] [address] Kathy Villafana MD [address] [place] [address] 10/06/2025 2:30 PM EST Office Visit [facility] OPTOMETRY [address] [place] [address] Jenise Garcia, OD [address] [place] [address] documented as of this encounter Visit Diagnoses Not on filedocumented in this encounter Additional Health Concerns Assessment Noted Time PHQ-9 Depression Total Score: 0 02/20/20 24 2:34 PM EDT documented as of this encounter Care Teams Good Humor Vendor Relationship Specialty Start Date End Date Kathy Villafana MD [address] [place] [address] PCP - General Family Medicine 08/05/21 [facility] 12/04/24 Corinne HOOKS 01/15/25 documented as of this encounter
--- OUTSIDE RECORDS SUMMARY | 2025-07-20 20:55 | XMS_ITS | Encounter Summary ---
Author Organization [facility] Address [address] [place] [address] Encounters * CPT with Medical instED at [facility] on 2025-06-22 { reasonForRequest : wound on back w/pus , patientReports : &quot ;, denies :[ Horner Flash, circumferential horner , Horner reported with black tissue to the area , Open skin area after a fall with uncontrolled bleeding ,&qu ot;Abscess/infection with streaking noted, presence of fever or without ], chiefComplaints : Wound Care , pmh : Dementia (e.g., Alzheimer's Disease), Diabetes Mellitus Type 2, Gastroesophageal Reflux Disease (GERD), Hypertension, Hyperlipidemia , allergies : No Known Drug Allergies , otherAllergies : , painA ssessment : , visitOutcome : , additionalComments :"Additional Information: Family reports patient had an allergic reaction during a procedure in [place] to \ a liquid they gave him\ , but family is unsure what the reaction was to\n80 y.o male complains of Wound Care\nPatient and patient's family member are Swedish speaking primarily, spanish medical interpreter# [id number] used for triage. Patient's family reports patient has a lump on his back that burst two days ago. Family reports area is draining pus and blood. Family reports pt has historyof operation on his back for similar wound done in [place]. Family is unsure what the operationwas for/ what they were trying to remove, but states the wound is in the same place as when this occurred before. Patient with no reported fever or chills. I provided information on the [employer] [employer] response time and advised the patient and/or caregiver to monitor reported signs and symptoms. I discussed the warning signs of when to seek emergency care -Mavis Wheeler RN } This visit is for an 80-year-old male with a history including but not limited to dementia, DM typeII, GERD, HTN, HLD. Family request the visit to address a lump on the patient's back. Family statesthat lump has been present for many years and has required multiple procedures while living in [place]. Most recent procedure was approximately five years ago. Lump has been growing, becoming more painful and draining blood and pus over the last two days. Patient denies any other systemic symptoms. NKDA. Patient presents awake and alert, in no acute distress and speaking full sentences. His vital signsare reasonably stable and he is afebrile. Nonfocal neurological exam. Normal gait with walker at baseline. Lungs are clear throughout auscultation. Abdomen is soft, nontender, nondistended. Approximately 4 cm x 3 cm cyst on his lower back, just left of the spine, braised, red, tender, draining pus and blood. I recommend emergency department evaluation for incision and debridement. Family is agreeable for ambulance transport to [facility] emergency department. 911 was initiated and SBAR was given to Ruthann WALL. ORAL_MEDICATION, WOUND_CARE Written by Medical instED on 2025-06-22
--- OUTSIDE RECORDS SUMMARY | 2025-07-20 20:55 | XMS_ITS | Encounter Summary ---
Author Organization [employer] Address [address] 7t [place] [address] Care Team Providers Care Wolf Hunter Name Role Phone Kathy Villafana MD Primary Care Provider [phone] Encounter Details Date Type Department Care Team (Late st Contact Info) Description 01/12/2023 Orders Only [facility] CHC MED & PEDS [address] [place] [address] Mary Ann Skaggs LPN Social History Tobacco [...] Description 08/05/2025 3:45 PM EDT Office Visit [facility] [address] [place] [address] Kathy Villafana MD [address] [place] [address] 10/06/2025 2:30 PM EST Office Visit [facility] OPTOMETRY [address] [place] [address] Jenise Garcia OD [address] [place] [address] documented as of this encounter Visit Diagnoses Not on filedocumented in this encounter Care Teams Wolf Hunter Relationship Specialty Start Date End Date Kathy Villafana MD [address] [place] [address] PCP - General Family Medicine 08/05/21 [facility] 12/04/24 Corinne A 01/15/25 documented as of this encounter
--- OUTSIDE RECORDS SUMMARY | 2025-07-20 20:55 | XMS_ITS | Encounter Summary ---
Author Organization [employer] Address [address] [place] [address] 7t [place] [address] Care Team Providers Care Facility Planner Name Role Phone Kathy Villafana MD Primary Care Provider [phone] Reason for Visit * Reason Comments Med Refill Encounter Details Date Type Department Care Team (Late Contact Info) Description 12/01/2022 Refill [facility] CHC MED & PEDS [address] [place], [place] [phone] Kathy Villafana MD [address] [place] [address] [phone] Type 2 diabetes mellitus with hyperglycemia, with long-term current use of insulin ([facility]) Social History Tobacco Use Types [...] Description 08/05/2025 3:45 PM EDT Office Visit [facility] MEDICINE [address] [place], [place] [phone] Kathy Villafana MD [address] [place], [place] [phone] 10/06/2025 2:30 PM EST Office Visit [facility] OPTOMETRY [address] [place], [place] [phone] Jenise Garcia, OD [address] [place] [address] documented as of this encounter Visit Diagnoses Diagnosis Type 2 diabetes mellitus with hyperglycemia, with long-term current use of insulin ([facility]) documented in this encounter Care Teams Facility Planner Relationship Specialty Start Date End Date Kathy Villafana MD [address] [place] [address] PCP - General Family Medicine 08/05/21 [facility] 12/04/24 Corinne [facility]NA 01/15/25 documented as of this encounter
--- OUTSIDE RECORDS SUMMARY | 2025-07-20 20:55 | XMS_ITS | Encounter Summary ---
Author Organization [employer] Address [address] [facility] 7t [place] [address] Care Team Providers Care Business Analyst Manager Name Role Phone Kathy Villafana MD Primary Care Provider [phone] Encounter Details Date Type Department Care Team (Late st Contact Info) Description 11/17/2022 Orders Only [facility] CHC MED & PEDS [address] [place] [address] Mary Ann Skaggs LPN Social History Tobacco [...] Description 08/05/2025 3:45 PM EDT Office Visit [facility] MEDICINE [address] [place] [address] Kathy Villafana MD [address] [place] [address] 10/06/2025 2:30 PM EST Office Visit [facility] OPTOMETRY [address] [place] [address] Jenise Garcia OD [address] [place] [address] documented as of this encounter Visit Diagnoses Not on filedocumented in this encounter Care Teams Business Analyst Manager Relationship Specialty Start Date End Date Kathy Villafana MD [address] [place] [address] PCP - General Family Medicine 08/05/21 [facility] 12/04/24 Corinne A 01/15/25 documented as of this encounter
--- OUTSIDE RECORDS SUMMARY | 2025-07-20 20:55 | XMS_ITS | Encounter Summary ---
Author Organization [employer] Address [address] 7t [place] [address] Care Team Providers Care Voice Systems Engineer Name Role Phone Kathy Villafana MD Primary Care Provider [phone] Encounter Details Date Type Department Care Team ([facility] st Contact Info) Description 09/24/2023 Abstract [facility] MEDICINE [address] [place], [place] [phone] Kathy Villafana MD [address] [place], [place] [phone] Social History Tobacco Use Types Packs/Day Years Used Date Smoking Tobacco: Never Passive Smoke Exposure: Never Smokeless Tobacco: Never Alcohol Use Standard Drinks/Week Comments Never 0 (1 standard drink = 0.6 oz pur e alcohol) Depression Answer Date Recorded Patient Health Questionnaire-9 Score 0 01/22/2023 Housing Stability Answer Date Recorded What is your housing situation today? I have rahmerna vinson 09/10/[address] you [...] Description 08/05/2025 3:45 PM EDT Office Visit [facility] MED[facility]INE [address] [place] [address] Kathy Villafana MD [address] [place] [address] 10/06/2025 2:30 PM EST Office Visit [facility] OPTOMETRY [address] [place] [address] Jenise Garcia, OD [address] [place] [address] documented as of this encounter Visit Diagnoses Not on filedocumented in this encounter Additional Health Concerns Assessment Noted Time PHQ-9 Depression Total Score: 0 01/22/20 23 3:42 PM EST documented as of this encounter Care Teams Voice Systems Engineer Relationship Specialty Start Date End Date Kathy Villafana MD [address] [place] [address] PCP - General Family Medicine 08/05/21 [facility] 12/04/24 Corinne VNA 01/15/25 documented as of this encounter
--- OUTSIDE RECORDS SUMMARY | 2025-07-20 20:55 | XMS_ITS | Encounter Summary ---
Author Organization [employer] Address [address] [facility] 7t [place] [address] Care Team Providers Care Tennis Professional Name Role Phone Kathy Villafana MD Primary Care Provider Reason for Visit * Reason Onset Date Comments Hospital Follow-up 12/03/2024 Encounter Details Date Type Department Care Team ([facility] st Contact Info) Description 12/03/2024 Telephone [facility]IC[facility] [address] [place], [place] [phone] Kathy Villafana MD [address] [place], [place] [phone] Hospital Follow-up Social History Tobacco Use Types [...] from pt requesting a HDF appt. Hospital: [facility] [place] Date of admission: 11/25/2024 Discharge date: 12/03/2024 Diagnosed: Heart Attack *Send message to [place] Clinical Care Coordinators documented in this encounter Plan of Treatment Upcoming Encounters Date Type Department Care Team (Late st Contact Info) Description 08/05/2025 3:45 PM EDT Office Visit [facility] MEDICINE [address] [place] [address] Kathy Villafana MD [address] [place] [address] 10/06/2025 2:30 PM EST Office Visit [facility] OPTOMETRY [address] [place] [address] Jenise Garcia, OD [address] [place] [address] documented as of this encounter Visit Diagnoses Not on filedocumented in this encounter Additional Health Concerns Assessment Noted Time PHQ-9 Depression Total Score: 0 02/20/20 24 2:34 PM EDT documented as of this encounter Care Teams Tennis Professional Relationship Specialty Start Date End Date Kathy Villafana MD [address] [place] [address], [place] [address] PCP - General Family Medicine 08/05/21 [facility] 12/04/24 Corinne HOOKS 01/15/25 documented as of this encounter
--- OUTSIDE RECORDS SUMMARY | 2025-07-20 20:55 | XMS_ITS | Encounter Summary ---
Author Organization [employer] Address [address] [place] [address] 7t [place] [address] Care Team Providers Care Weed Controller Name Role Phone Kathy Villafana MD Primary Care Provider [phone] Reason for Visit * Reason Comments Med Refill Encounter Details Date Type Department Care Team (Late Contact Info) Description 08/18/2023 Refill [facility] MEDICINE [address] [place] [address] [phone] Kathy Villafana MD [address] [place] [address] [phone] Social History Tobacco Use Types Packs/Day Years [...] Description 08/05/2025 3:45 PM EDT Office Visit [facility] MEDICINE [address] [place] [address] [phone] Kathy Villafana MD [address] [place] [address] [phone] 10/06/2025 2:30 PM EST Office Visit [facility] OPTOMETRY [address] [place] [address] Jenise Garcia, OD [address] [place] [address] documented as of this encounter Visit Diagnoses Not on filedocumented in this encounter Additional Health Concerns Assessment Noted Time PHQ-9 Depression Total Score: 0 01/22/20 23 3:42 PM EST documented as of this encounter Care Teams Weed Controller Relationship Specialty Start Date End Date Kathy Villafana MD [address] [place] [address] PCP - General Family Medicine 08/05/21 [facility] 12/04/24 Corinne VNA 01/15/25 documented as of this encounter
--- OUTSIDE RECORDS SUMMARY | 2025-07-20 20:55 | XMS_ITS | Clinical Summary ---
Author Organization [facility] Address [address] [address] Care Team Providers Care Marine Equipment Design Engineer Name Role Phone Kathy Villafana MD Primary Care Provider [phone] Medications pantoprazole (PROTONIX) 40 MG EC tablet [...] patient's age to complete this topic Insurance [facility] ([id number]) KENJI AUGUSTINE [id number] [facility] ([id number]) KENJI AUGUSTINE [id number] Care Teams Marine Equipment Design Engineer Relationship Specialty Start Date End Date Kathy Villafana MD PCP - General Supervisor Meter Shop 10/13/21
--- OUTSIDE RECORDS SUMMARY | 2025-07-20 20:55 | XMS_ITS | Encounter Summary ---
Author Organization [employer] Address [address] 7t [place] [address] Care Team Providers Care Facility Maintenance Mechanic Name Role Phone Kathy Villafana MD Primary Care Provider Reason for Visit * Reason Comments Med Refill Encounter Details Date Type Department Care Team ([facility] st Contact Info) Description 11/18/2023 Refill [facility] MEDICINE [address] [place], [place] [phone] Kathy Villafana MD [address] [place], [place] [phone] Type 2 diabetes mellitus with hyperglycemia, with long-term current use of insulin ([facility]) Social History Tobacco Use Types Packs/Day Years [...] Description 08/05/2025 3:45 PM EDT Office Visit [facility] MEDICINE [address] [place] [address] Kathy Villafana MD [address] [place] [address] 10/06/2025 2:30 PM EST Office Visit [facility] OPTOMETRY [address] [place] [address] Tarka, Jenise, OD [address] [place] [address] documented as of this encounter Visit Diagnoses Diagnosis Type 2 diabetes mellitus with hyperglycemia, with long-term current use of insulin ([facility]) documented in this encounter Additional Health Concerns Assessment Noted Time PHQ-9 Depression Total Score: 0 01/22/20 23 3:42 PM EST documented as of this encounter Care Teams Facility Maintenance Mechanic Relationship Specialty Start Date End Date Kathy Villafana MD [address] [place] [address] PCP - General Family Medicine 08/05/21 [facility] 12/04/24 Corinne VNA 01/15/25 documented as of this encounter
--- OUTSIDE RECORDS SUMMARY | 2025-07-20 20:55 | XMS_ITS | Encounter Summary ---
Author Organization [facility] Address [address] [place] [address] Encounters * CPT with Fabio Woodard at [facility] on 2025-05-13 { reasonForRequest : Pt is having catheter complications per son, part of tubing is dirty, does not want montelongo completely changed just part. Pt is bleeding near montelongo , patientReports : , denies :[ Unable to void greater than 5 hours ,&quo t;Erection that will not go away after 2 hours , Fall or trauma that results in urinary incontinence in the setting of pain , Fall or injury that results in incontinence in the absence of pain , Lower back pain either unilateral or bilateral, unable to void, painful urination -hematuria , Painful urination , Frequent and increased urination with flank pain , Painful urination with or without fever , Inability to fully empty bl adder ], chiefComplaints : Urinary Catheter/Nephrostomy Tube Problems, Urinary S ymptoms , pmh : Dementia (e.g., Alzheimer's Disease), Diabetes Mellitus Type 2, Gastroesophageal Reflux Disease (GERD), Hypertension, Hyperlipidemia , allergies :"No Known Drug Allergies , otherAllergies : , painAssessment : , visitOutcome : , additionalComments : 80 y.o malecomplains of Urinary Catheter Problems, Urinary Symptoms. Patients son states that there is blood ti nged urine in his fathers catheter. He is [...] through the montelongo Catheter tubing. reviewed red flags.\nI provided information on the mobile health provider response time and advised the patient and/or caregiver to monitor reported signs and symptoms. I discussed the warning signs of when to seek emergency care. } Dispatched to the call address for the [...] pink but dry, -JVD, -HEENT, pupils PERRL, abdsoft non tender/distended, lungs CTA, Afebrile, +CMSx4, -edema swelling. Catheter was not properly attached to the leg paulino. Pt was assessed. Montelongo was fixed to not pull anymore. [facility] consulted. Red flags discussed ALL times are approx. ORAL_MEDICATION, EKG, POC_BLOODWORK, GLUCOSE, URINE_DIPSTICK, WOUND_CARE, STRAIGHT_CATHETERIZATION,CULTURE_URINE Written by Fabio Woodard on 2025-05-13
--- OUTSIDE RECORDS SUMMARY | 2025-07-20 20:55 | XMS_ITS | Encounter Summary ---
Author Organization [employer] Address [address] [place] [address] Care Team Providers Care Color Print Inspector Name Role Phone Kathy Villafana MD Primary Care Provider [phone] Encounter Details Date Type Department Care Team (Late st Contact Info) Description 12/20/2023 Abstract [facility] [address] [place], [place] [phone] Kathy Villafana MD [address] [place], [place] [phone] Social History Tobacco Use Types Packs/Day Years [...] Description 08/05/2025 3:45 PM EDT Office Visit [facility] [address] [place] [address] Kathy Villafana MD [address] [place] [address] 10/06/2025 2:30 PM EST Office Visit [facility] [address] [place] [address] Jenise Garcia, OD [address] [place] [address] documented as of this encounter Visit Diagnoses Not on filedocumented in this encounter Additional Health Concerns Assessment Noted Time PHQ-9 Depression Total Score: 0 01/22/20 23 3:42 PM EST documented as of this encounter Care Teams Color Print Inspector Relationship Specialty Start Date End Date Kathy Villafana MD [address] [place] [address] PCP - General Family Medicine 08/05/21 [facility] 12/04/24 [facility] 01/15/25 documented as of this encounter
--- OUTSIDE RECORDS SUMMARY | 2025-07-20 20:55 | XMS_ITS | Encounter Summary ---
Author Organization [employer] Address [address] [facility] [address] [facility] [address] 7t [place] [address] Care Team Providers Care Dietitian Teacher Name Role Phone Kathy Villafana MD Primary Care Provider [phone] Reason for Visit * Reason Onset Date Comments triage 12/06/2022 Encounter Details Date Type Department Care Team (Late st Contact Info) Description 12/06/2022 Telephone [facility] MEDICINE [address] [place], [place] [phone] Kathy Villafana MD [address] [place], [place] [phone] triage Social History Tobacco Use Types Packs/Day [...] No answer LVM to return call to [facility] triage line. * Telephone Encounter - Abhishek Herman - 12/06/2022 2:25 PM EST Symptom: Constipation Outcome: Schedule an appointment to be seen within 24 hours Reason: No high acuity concerns reported by caller The caller accepted this outcome speaks german documented in this encounter Plan of Treatment Upcoming Encounters Date Type Department Care Team (Late st Contact Info) Description 08/05/2025 3:45 PM EDT Office Visit [facility] MED[facility]INE [address] [place] [address] Kathy Villafana MD [address] [place] [address] 10/06/2025 2:30 PM EST Office Visit [facility] OPTOMETRY [address] [place], [place] [phone] Jenise Garcia, OD [address] [place] [address] documented as of this encounter Visit Diagnoses Not on filedocumented in this encounter Care Teams Dietitian Teacher Relationship Specialty Start Date End Date Kathy Villafana MD [address] [place] [address] PCP - General Family Medicine 08/05/21 [facility] 12/04/24 [facility] 01/15/25 documented as of this encounter
--- OUTSIDE RECORDS SUMMARY | 2025-07-20 20:55 | XMS_ITS | Encounter Summary ---
Author Organization [employer] Address [address] [place] [address] Care Team Providers Care Manager Of Health Name Role Phone Kathy Villafana MD Primary Care Provider [phone] Encounter Details Date Type Department Care Team ([facility] st Contact Info) Description 11/14/2023 Orders Only [facility] MED[facility]INE [address] [place], [place] [phone] Kathy Villafana MD [address] [place], [place] [phone] Social History Tobacco Use Types Packs/Day Years Used Date Smoking Tobacco: Never Passive Smoke Exposure: Never Smokeless Tobacco: Never Alcohol Use Standard Drinks/Week Comments Never 0 (1 standard drink = 0.6 oz pur e alcohol) Depression Answer Date Recorded Patient Health Questionnaire-9 Score 0 01/22/2023 Housing Stability Answer Date Recorded What is your housing situation today? I have rahmrena vinson 09/10/[address] you [...] 3:45 PM EDT Office Visit [facility] [address] [place] [address] Kathy Villafana MD [address] [place] [address] 10/06/2025 2:30 PM EST Office Visit [facility] OPTOMET[facility] [address] [place] [address] Jenise Garcia, OD [address] [place] [address] documented as of this encounter Visit Diagnoses Not on filedocumented in this encounter Additional Health Concerns Assessment Noted Time PHQ-9 Depression Total Score: 0 01/22/20 23 3:42 PM EST documented as of this encounter Care Teams Manager Of Health Relationship Specialty Start Date End Date Kathy Villafana MD [address] [place] [address] PCP - General Family Medicine 08/05/21 [facility] 12/04/24 [facility] 01/15/25 documented as of this encounter
--- OUTSIDE RECORDS SUMMARY | 2025-07-20 20:55 | XMS_ITS | Encounter Summary ---
Author Organization [facility] Address [address] [place] [address] Encounters * CPT with Fabio Woodard at [employer] on 2025-05-08 { reasonForRequest : catheter /blood in urine , patientReports : , denies :[], chiefComplaints : Urinary Catheter/Nephrostomy Tube Pro blems , pmh : Dementia (e.g., Alzheimer's Disease), Diabetes Mellitus Type 2, Ga stroesophageal Reflux Disease (GERD), Hypertension, Hyperlipidemia , allergies :"No Known Drug Allergies , otherAllergies : , painAssessment :&q uot; , visitOutcome : , additionalComments : 80 y.o male complains of Urinary Catheter/Nephrostomy Tube Problems\n\nPatients daughter calling in to place a referral.\nShe is vague with concern/symptoms.\nPatient has a chronic indwelling montelongo.\nShe reports hematuria x3 days.\nShe is unsure if the patient is playing or tugging on the tubing.\nShe notes the patient has been more fatigued over the last couple of days,\nPatient has not complained of any pain.\nShe is unsure of fever/chill or odor to the urine.\nShe would like him evaluated.\n\nI provided information on the mobile health provider response time and advised the patient and/or caregiver to monitor reported signs and symptoms. I discussed the warning signs of when to seek emergency care."} 80 yo male found by daughter in [...] to stand with no pain. appears to beenough slack to allow walking with out pain. Son thanked us for that. Daughter in law to ask for tape and montelongo kits at next visit. Pt continued to watch [employer] and answer questions. Stood with no dizziness and took a couple steps without issues. URINE_DIPSTICK, WOUND_CARE, STRAIGHT_CATHETERIZATION, CULTURE_URINE Written by Fabio Woodard on 2025-05-08
--- OUTSIDE RECORDS SUMMARY | 2025-07-20 20:55 | XMS_ITS | Encounter Summary ---
Author Organization [employer] Address [address] [place] [address] Care Team Providers Care Box Person Name Role Phone Kathy Villafana MD Primary Care Provider [phone] Encounter Details Date Type Department Care Team ([facility] st Contact Info) Description 09/18/[address] [facility] MEDICINE [address] [place], [place] [phone] Kathy Villafana MD [address] [place], [place] [phone] Social History Tobacco Use Types Packs/Day Years [...] 3:45 PM EDT Office Visit [facility] MED[facility]INE [address] [place] [address] Kathy Villafana MD [address] [place] [address] 10/06/2025 2:30 PM EST Office Visit [facility] OPTOMETRY [address] [place] [address] Jenise Garcia, OD [address] [place] [address] documented as of this encounter Visit Diagnoses Not on filedocumented in this encounter Additional Health Concerns Assessment Noted Time PHQ-9 Depression Total Score: 0 01/22/20 23 3:42 PM EST documented as of this encounter Care Teams Box Person Relationship Specialty Start Date End Date Kathy Villafana MD [address] [place] [address] PCP - General Family Medicine 08/05/21 [facility] 12/04/24 Cor[facility] 01/15/25 documented as of this encounter
--- OUTSIDE RECORDS SUMMARY | 2025-07-20 20:55 | XMS_ITS | Encounter Summary ---
Author Organization [employer] Address [address] [place] [address] Care Team Providers Care Research Development Director Name Role Phone Kathy Villafana MD Primary Care Provider [phone] Encounter Details Date Type Department Care Team ([facility] st Contact Info) Description 11/28/[address] [facility] MED[facility] [address] [place], [place] [phone] Kathy Villafana MD [address] [place], [place] [phone] Social History Tobacco Use Types Packs/Day Years [...] Office Visit [facility] [address] [place] [address] Kathy Villafana MD [address] [place] [address] 10/06/2025 2:30 PM EST Office Visit [facility] [address] [place] [address] Jenise Garcia, OD [address] [place] [address] documented as of this encounter Visit Diagnoses Not on filedocumented in this encounter Additional Health Concerns Assessment Noted Time PHQ-9 Depression Total Score: 0 01/22/20 23 3:42 PM EST documented as of this encounter Care Teams Research Development Director Relationship Specialty Start Date End Date Kathy Villafana MD [address] [place] [address] PCP - General Family Medicine 08/05/21 [facility] 12/04/24 [facility] 01/15/25 documented as of this encounter
--- OUTSIDE RECORDS SUMMARY | 2025-07-20 20:55 | XMS_ITS | Encounter Summary ---
Author Organization [employer] Address [address] [facility] 7[address] [place] [address] Care Team Providers Care Bacteriology Professor Name Role Phone Kathy Villafana MD Primary Care Provider [phone] Reason for Visit * Reason Onset Date Comments difficulty with extraction 05/23/2023 Encounter Details Date Type Department Care Team (Late st Contact Info) Description 05/23/2023 Telephone [facility] [address] [place], [place] [phone] Tr Tay DDS [address] [place], [place] [phone] difficulty with extraction Social History Tobacco Use [...] No room on PAR end. Can front desk receptionist help with scheduling . * Telephone Encounter [...] patient to be seen today. Called front desk receptionist. Recommended to contact you for insight documented in this encounter Plan of Treatment Upcoming Encounters Date Type Department Care Team (Late st Contact Info) Description 08/05/2025 3:45 PM EDT Office Visit [facility] MEDICINE [address] [place] [address] Kathy Villafana MD [address] [place] [address] 10/06/2025 2:30 PM EST Office Visit [facility] OPTOMETRY [address] [place] [address] Jenise Garcia, OD [address] [place] [address] documented as of this encounter Visit Diagnoses Not on filedocumented in this encounter Additional Health Concerns Assessment Noted Time PHQ-9 Depression Total Score: 0 01/22/20 23 3:42 PM EST documented as of this encounter Care Teams Bacteriology Professor Relationship Specialty Start Date End Date Kathy Villafana MD [address] [place] [address] PCP - General Family Medicine 08/05/21 [facility] 12/04/24 Corinne HOOKS 01/15/25 documented as of this encounter
--- OUTSIDE RECORDS SUMMARY | 2025-07-20 20:55 | XMS_ITS | Encounter Summary ---
Author Organization [facility] Address [address] [place] [address] Encounters * CPT with Fabio Woodard at [facility] on 2025-05-05 { reasonForRequest : catheter pain , patientReports : ,&quo t;denies :[], chiefComplaints : Urinary Catheter/Nephrostomy Tube Problems , pmh : Dementia (e.g., Alzheimer's Disease), Diabetes Mellitus Type 2, Gastroesophageal Reflux Disease (GERD), Hypertension, Hyperlipidemia , allergies : No Known Drug Allergies , otherAllergies : , painAssessment : , visitOutcome : , additionalComments : 80 y.o male complains ofUrinary Catheter/Nephrostomy Tube Problems\n\nCG reports the pt has catheter in place - Increased pain with movement - \ Pulling.\ \n\nCatheter is draining - Yellow in color\n\nDenies fever\n\nPt is taking Tylenol for pain\n\nPt was seen by [facility] on 04/28 for same - Montelongo caused irritationaround penis as per medic. Bacitracin and tape applied to secure in place. Exam otherwise unremarkable per the web worker. UA negative\n\nWellness check for montelongo catheter troubleshooting\n\nI provided information on the mobile health provider response time and advised the patient and/or caregiver to monitor reported signs and symptoms. I discussed the warning signs of when to seek emergency care."} RI1 sent to the above address for the pts family requesting a Montelongo catheter trouble. Upon arrival the so met outside and brought sc1 in to the pt. The pt is an 80 yo male who has Dementia and Alzheimer's disease. The pt had a catheter placed on 04/28/2025 by [facility] and the pt has some chaffing to [...] were explained and Dr Laughlin was pleased. SC1 cleared the call.WRR URINE_DIPSTICK, WOUND_CARE, STRAIGHT_CATHETERIZATION, CULTURE_URINE Written by Fabio Woodard on 2025-05-05
--- OUTSIDE RECORDS SUMMARY | 2025-07-20 20:55 | XMS_ITS | Continuity of Care Document ---
Author Name Fabio Woodard Address [address] [place] [id number] Organization Unknown Address [address] [place] [id number] Medications No known medications Problems No known problems
[2025-07-20 21:04] LABS: Alanine Aminotransferase 11 U/L (0-40); Albumin Level 3.7 g/dL (3.5-5.0); Alkaline Phosphatase 101 U/L (39-117); Anion Gap 17 (12-20); Aspartate Amino Transferase 21 U/L (5-37); Blood Urea Nitrogen 44 mg/dL (9-16); Calcium 8.8 mg/dL (8.4-10.2); Carbon Dioxide 30 mmol/L (22-29); Chloride 97 mmol/L (96-108); Creatinine Clr Calc Pharmacy 29.1; Estimated Glomerular Filt Rate 26; Potassium 4.0 mmol/L (3.3-5.1); Sodium 140 mmol/L (135-145); Total Protein 7.1 g/dL (6.5-8.0)
--- NOTE | 2025-07-20 21:43 | PC.NURSE ---
MD in room with family and marine equipment sales engineer
--- NOTE | 2025-07-20 21:50 | ED.SYNCOPE ---
HPI - Syncope General Chief Complaint: Syncope Stated Complaint: Vagal syncopal A&O x0 is baseline Time Seen by Provider: 07/20/25 21:13 Source: family, EMS and old records reviewed Mode of arrival: EMS Limitations: language barrier and other (dementia) History of Present Illness ED Provider: Dr. Lou Odonnell HPI narrative: 80-year-old male history of atrial fibrillation on Eliquis, HFpEF, CAD, diabetes, chronic renal insufficiency presenting with episode of shakiness and syncope that occurred immediately prior to arrival. Patient's son is at bedside and gives most of his history through a water resources engineer. Patient son reports that he is having several of these episodes where he passes out while getting up to use the toilet. Admits this is happened multiple times over the last several months. Describes getting him into the bathroom, sitting on the toilet, patient complaining of neck pain and then looking towards his right and passing out. Unconscious episode lasts about a minute or so. He does not have a postictal period afterward. No reported chest pain. No reported headache though he does admit to posterior neck pain radiating into the back of his scalp. This has happened several times now. It has never happened when he is lying down in bed. His son reports that when they get him back into bed his blood pressure is often recorded as low (as low as 98/58). Has been seen recently here in the emergency department for a fall but was diagnosed with a urinary tract infection and sent home on antibiotics earlier this month. His son reports he finished his course of antibiotics but has not improved. No reported fever. No cough or cold-type symptoms. No nausea, vomiting or diarrhea. No hematochezia or melena. Related Data Home Medications ?Medication ?Instructions ?Recorded ?Confirmed apixaban 5 mg tablet (Eliquis) 5 mg PO BID 09/05/21 07/21/25 donepezil 10 mg tablet 10 mg PO BEDTIME 09/05/21 07/21/25 jljnerbw-bst-zptiy acid 0.4 1 tab PO DAILY 09/05/21 07/21/25 mg-lycopene 300 mcg-lutein 250 mcg tablet (CertaVite Senior) allopurinol 100 mg tablet 50 mg PO DAILY gout pain 10/07/21 07/21/25 insulin syringe-needle U-100 1 mL #10 ea 12/22/21 03/08/25 31 gauge x 16 memantine 10 mg tablet 10 mg PO BID 05/08/22 07/21/25 metoprolol tartrate 100 mg tablet 100 mg PO BID 05/08/22 07/21/25 cetirizine 10 mg tablet 10 mg PO DAILY congestion 08/17/23 07/21/25 omeprazole 20 mg capsule,delayed 20 mg PO BID@0630,1630 05/17/24 07/21/25 release sucralfate 1 gram tablet 1 g PO TIDAC 05/17/24 07/21/25 magnesium oxide 250 mg PO DAILY 11/25/24 07/21/25 insulin aspar prt-insulin aspart 76 unit subcut BIDWM 12/24/24 07/21/25 100 unit/mL (70-30) subcutaneous soln (Novolog Mix 70-30 U-100 Insuln) diphenhydramine HCl 25 mg tablet 12.5 mg PO BEDTIME PRN Allergy 01/08/25 07/21/25 (Nell-Dryl) Symptoms dapagliflozin propanediol 5 mg 5 mg PO DAILY 02/27/25 07/21/25 tablet (Farxiga) amlodipine 2.5 mg tablet 2.5 mg PO DAILY 03/08/25 07/21/25 bumetanide 1 mg tablet 1 mg PO BID@0800,1200 07/21/25 07/21/25 gabapentin 800 mg tablet 800 mg PO BID 07/21/25 07/21/25 Previous Rx's ?Medication ?Instructions ?Recorded atorvastatin 40 mg tablet (Lipitor) 40 mg PO BEDTIME #30 tabs 09/09/21 lancets (Lancets,Ultra Thin) #100 ea 10/21/21 aspirin 81 mg chewable tablet 81 mg PO DAILY #60 tabs 12/03/24 polyethylene glycol 3350 17 17 g PO DAILY #119 grams 04/26/25 gram/dose oral powder (Miralax) tamsulosin 0.4 mg capsule (Flomax) 0.4 mg PO BEDTIME 90 days #90 caps 05/26/25 finasteride 5 mg tablet 5 mg PO DAILY 90 days #90 tabs 07/07/25 Allergies Allergy/AdvReac Type Severity Reaction Status Date / Time No Known Allergies Allergy Verified 07/20/25 19:28 Review of Systems Review of Systems: as per HPI, full review of systems performed and negative but for the above mentioned pertinent positives and negatives. [facility] Past Medical History Medical History (Updated 07/21/25 @ 16:21 by Marcelle Dietrich MD) Seizure Alzheimer's dementia Chronic atrial fibrillation CKD stage 3b, GFR 30-44 ml/min CHF exacerbation Diabetes mellitus Acute hypoxic respiratory failure Pneumonia Pneumonia Acute respiratory failure Hypoxia CAD (coronary artery disease) Trash foot Diabetic foot infection Heart failure with preserved ejection fraction HLD (hyperlipidemia) Atrial fibrillation NSTEMI (non-ST elevated myocardial infarction) Kidney failure Diabetes HTN (hypertension) Surgical History No pertinent past surgical history Family History Family History Father No problems noted. Mother No problems noted. Social History Social History Household Members: Family Household Members Other:: sons and daughter in law Housing: House Do you presently have visiting nurse or other home services: Yes Unable to assess alcohol history related to: Unable to respond Alcohol intake: never Patient Tobacco Use Status: Never used Tobacco Smoked in Last 30 Days: No e-Cigarette/Vaping Use: Never Used Patient Interested in Nicotine Replacement: No Patient Given Instructions on How to Stop Smoking: No Second Hand Smoke Exposure: No Use of substances other than those prescribed or required for medical reasons: No Currently Displaying Signs/Symptoms of Drug Intoxication Withdrawal: No Have you been hit, kicked, punched, or otherwise hurt by someone within the past year? If so, by whom?: No Do you feel safe in your current relationship?: No Current Relationship Is there a partner from a previous relationship who is making you feel unsafe now?: No Are you made to feel afraid or neglected: No Spiritual Healthcare Practices: non practicing Denominational Advance Directives: Yes Advance Directives on File: Yes Advance Directives Date on File: 09/06/21 Do you have a plan to hurt others: No Plan Recently lost weight without trying: No Eating poorly because of decreased appetite: No Nutrition Risks: No Nutritional Risk Poor oral hygiene: Yes service: No Current occupational status: retired Physical Exam Exam: Exam: GENERAL: Chronically ill-appearing, conversant, no acute distress. SKIN: Normal skin color for ethnicity, warm, open ulcer noted on the upper lumbar spine midline, draining purulent fluid, minimal surrounding erythema, no crepitus, no blistering, no tenderness to palpation. HEENT: Normocephalic, atraumatic, no stridor, posterior oropharynx nonerythematous, EOMI. NECK: Soft, supple, full ROM, midline structures nontender, no step-offs, no deformities, no lymphadenopathy. CHEST: Heart irregularly irregular, no murmurs, symmetric chest rise and fall. PULMONARY: Clear to auscultation bilaterally, no labored breathing, no wheezes/rhales/ rhonchi. ABDOMINAL: Soft, nondistended, nontender, positive bowel sounds in all quadrants. : Deferred. MUSCULOSKELETAL: Normal tone, full range of motion, no deformities, no peripheral edema. NEURO: Alert and oriented to person, CN II through XII intact, no focal neurologic deficits. PSYCHIATRIC: Flat affect, fluid speech, appropriate demeanor. Vital Signs: Vital Signs: Last Vital Signs Temp 97.9 F 07/21/25 19:50 Pulse 84 07/21/25 19:50 Resp 18 07/21/25 19:50 BP 140/89 H 07/21/25 19:50 Pulse Ox 95 07/21/25 19:50 O2 Del Method Room Air 07/21/25 19:50 O2 Flow Rate 1 07/21/25 06:00 BMI result Body Mass Index 32.6 Medications Administered Generic Name Dose Route Start Last Admin Trade Name Freq PRN Reason Stop Dose Admin Apixaban 2.5 mg 07/21/25 09:00 07/21/25 20:20 Apixaban 2.5 Mg Tablet PO 2.5 mg BID REYNALDO Administration Atorvastatin Calcium 40 mg 07/21/25 21:00 07/21/25 20:19 Atorvastatin Calcium 40 Mg Tablet PO 40 mg BEDTIME REYNALDO Administration Donepezil HCl 10 mg 07/21/25 21:00 07/21/25 20:19 Donepezil Hcl 10 Mg Tablet PO 10 mg BEDTIME REYNALDO Administration Gabapentin 800 mg 07/21/25 21:00 07/21/25 20:19 Gabapentin 400 Mg Capsule PO 800 mg BID REYNALDO Administration Lactated Ringer's 500 mls @ 80 mls/hr 07/21/25 18:15 07/21/25 18:10 Lr IVCONT 07/22/25 00:29 80 mls/hr .[id number] REYNALDO Administration Insulin Human Lispro 0 unit 07/21/25 21:00 07/21/25 20:20 Insulin Lispro 100 Unit/Ml 3 Ml Vial SUBCUT 10 unit QIDACHS REYNALDO Administration Protocol Melatonin 6 mg 07/21/25 00:40 07/21/25 20:19 Melatonin 3 Mg Tablet PO 6 mg BEDTIME PRN Administration Insomnia Memantine 10 mg 07/21/25 21:00 07/21/25 20:19 Memantine Hcl 10 Mg Tablet PO 10 mg BID REYNALDO Administration Metoprolol Tartrate 50 mg 07/21/25 21:00 07/21/25 20:20 Metoprolol Tartrate 50 Mg Tablet PO 50 mg BID REYNALDO Administration Protocol Omeprazole 20 mg 07/21/25 16:30 07/21/25 17:50 Omeprazole 20 Mg Capsule.Dr PO 20 mg BID@0630,1630 REYNALDO Administration Sodium Chloride 3 ml 07/21/25 08:00 07/21/25 20:20 0.9 % Sodium Chloride Flush 3 Ml Syringe IVFLUSH 3 ml QSHIFT [facility] Administration Sucralfate 1 gm 07/21/25 16:30 07/21/25 17:50 Sucralfate 1 Gm Tablet PO 1 gm TIDAC REYNALDO Administration Tamsulosin HCl 0.4 mg 07/21/25 21:00 07/21/25 20:20 Tamsulosin Hcl 0.4 Mg Capsule PO 0.4 mg BEDTIME REYNALDO Administration Discontinued Medications Generic Name Dose Route Start Last Admin Trade Name Freq PRN Reason Stop Dose Admin Lactated Ringer's 1,000 mls @ 80 mls/hr 07/21/25 16:45 07/21/25 18:12 Lr IVCONT 07/21/25 22:59 Not Given .[id number] [facility] Insulin Human Lispro 8 unit 07/21/25 17:40 07/21/25 17:55 Insulin Lispro 100 Unit/Ml 3 Ml Vial SUBCUT 07/21/25 17:41 8 unit ONCE ONE Administration Medical Decision Making Medical Decision Making [facility] Narrative: Patient presents today with chief complaint of syncope. I considered multiple diagnoses of etiology including most importantly cardiac arrhythmia, seizure, subarachnoid hemorrhage, vascular catastrophe such as AAA, as well as other more common etiologies such as a vasovagal syncope and orthostasis. Broad-based work-up was initiated to evaluate etiology including head CT, EKG and chest x-rays. Patient has a history of CHF, making him high risk in the setting of multiple syncopal episodes over the last month. Plan for admission to hospitalist for further care and evaluation. Family understands and agrees with plan for admission. Differential Diagnosis Differential Diagnoses: The differential diagnosis associated with the presentation includes (as above) Admission/Observation Consideration of admission/observation: Escalation of care including admission/observation considered Consult Healthcare Provider Management of the patient was discussed with: Hospitalist Lab Data MDM Lab Attestation statement: I reviewed the patient's lab results. 07/21/25 09:36 07/21/25 09:36 Labs: Lab Results 07/20/25 Range/Units 20:31 WBC 9.6 (4.8-10.8) X10*3/uL RBC 3.66 L (4.60-5.80) X10*6/uL Hgb 9.0 L (14.0-18.0) g/dl Hct 29.8 L (42.0-52.0) % MCV 81.4 (80.0-98.0) fL MCH 24.6 L (27.0-33.0) pg MCHC 30.2 L (31.0-36.0) g/dl RDW 18.5 H (11.0-16.0) % Plt Count 203 (160-400) X10*3/uL MPV 11.9 (9.4-12.4) fL Immature Gran % (Auto) 0.2 (0.0-0.4) % Neut % (Auto) 77.9 H (45-73) % Lymph % (Auto) 12.2 L (20-40) % Coffey % (Auto) 7.1 (2-11) % Eos % (Auto) 2.0 (0-4) % Baso % (Auto) 0.6 (0-2) % Lymph # (Auto) 1.2 (1.2-4.9) X10*3/uL Coffey # (Auto) 0.7 (0.1-1.2) X10*3/uL Eos # (Auto) 0.2 (0.0-0.4) X10*3/uL Baso # (Auto) 0.1 (0.0-0.2) X10*3/uL Abs Immat Gran (auto) 0.02 (0.00-0.03) X10*3/uL Absolute Neuts (auto) 7.5 (2.0-8.3) x10*3/uL Absolute Nucleated RBC 0.000 (0.0-0.012) X10*3/uL Nucleated RBC % (auto) 0.0 (0.0-0.2) /100WBC PT 19.1 H (10.9-12.4) SEC INR 1.7 H (0.9-1.1) Sodium 140 (135-145) mmol/L Potassium 4.0 D (3.3-5.1) mmol/L Chloride 97 (96-108) mmol/L Carbon Dioxide 30 H (22-29) mmol/L Anion Gap 17 (12-20) BUN 44 H (9-16) mg/dL Creatinine 2.43 H (0.5-1.4) mg/dL Estim Creat Clear Calc 29.1 Estimated GFR 26 Random Glucose 303 H (60-115) mg/dL Calcium 8.8 (8.4-10.2) mg/dL Magnesium 2.6 (1.6-2.6) mg/dL Total Bilirubin 0.4 (0.0-1.0) mg/dL AST 21 (5-37) U/L ALT 11 (0-40) U/L Alkaline Phosphatase 101 (39-117) U/L Troponin I High Sens 6.1 (<3.5-35.0) ng/L B-Natriuretic Peptide 366 H (<100) pg/mL Total Protein 7.1 (6.5-8.0) g/dL Albumin 3.7 (3.5-5.0) g/dL Independent Interpretation I performed an independent interpretation of an: EKG Interpretation: My independent interpretation of the ECG reveals atrial fibrillation with a rate of 53, low voltage throughout, normal axis, normal intervals, no ST elevations or depressions to suggest ischemic changes, relatively unchanged from previous on 07/02/2025. Radiology Impression Discussion of test interpretation with radiology: I have reviewed the radiologist's reading. Radiologist Impression: CT head without contrast Comparison: CT head 07/02/2025 Findings: No intra-axial mass, midline shift, hydrocephalus, or acute hemorrhage. Small scalp hematoma overlying right frontal parietal convexity. Moderate atrophy-like change and white matter disease. There is no sinus or mastoid fluid. The orbits are unremarkable. No skull fracture. IMPRESSION: 1. No acute intracranial findings. Specifically, no evidence of acute intracranial hemorrhage, mass effect or midline shift. This document has been electronically signed by: Neymar Gordon MD on 07/20/2025 23:35:46 2 view chest x-ray Comparison: CR - XR CHEST 1V - 03/07/25 16:41 EDT Findings: Small left pleural effusion/atelectatic changes, unchanged in the interval. Heart size is normal. No acute fracture. IMPRESSION: Small left pleural effusion/atelectatic changes, unchanged in the interval. This document has been electronically signed by: Balaji Lopez MD on 07/20/2025 22:34:5 Independent Historian Clinical information obtained from an independent historian. History obtained from or confirmed by: Other (son) External Record Review External record reviewed: Inpatient record Chronic Conditions Patient?s care impacted by: Diabetes, Hypertension and Other (afib, dementia) Procedures Procedure Narrative Procedure Narrative: Ultrasound-guided IV 20 gauge 1.16 in IV placed in left upper extremity. Adequate blood return, flushes well secured with Tegaderm. Performed by Gianna Bragg PA-C Discharge Plan Discharge Clinical Impression: Syncopal episodes, Atrial fibrillation with slow ventricular response, CHF (congestive heart failure) Patient Disposition: Admitted As Inpatient Interventions: Admission Worksheet (ED) Last Done: 07/21/25 05:20 Discharge Date/Time: 07/21/25 06:20
--- NOTE | 2025-07-20 22:00 | PC.NURSE ---
MD Odonnell made aware of family concern for patient's apparent right shoulder/neck swelling. appears slightly asymmetrical to left side. no erythema or pain with palpation
[2025-07-20 22:10] VITALS: BP 108/54; PULSE 52; RESP 16; TEMP 36.6
[2025-07-20 22:35] LABS: Magnesium 2.6 mg/dL (1.6-2.6)
[2025-07-20 22:47] LABS: Troponin-I High Sensitivity 6.1 ng/L (<3.5-35.0)
[2025-07-20 23:04] LABS: B Type Natriuretic Peptide 366 pg/mL (<100)
[2025-07-20 23:46] VITALS: PULSE 55
--- NOTE | 2025-07-20 23:47 | PM.IMHP ---
History of Present Illness Date of Service: 07/20/25 Attending physician on admission: Luis Alfredo Clark Chief Complaint: ?seizure activity Patient is an 80-year-old male with a past medical history significant for dementia, AFib on Eliquis, HFpEF, BPH, NSTEMI, gout, CAD, CKD 3B and history upper GI bleed, who presented to the ED due to a witnessed syncopal episode. Patient was in the restroom and got up from the toilet and had a syncopal episode. The family reported seizure-like activity with some convulsions and eyes rolled back with LOC. No head strike. The patient did not have a postictal period, no bowel or urine incontinence, he does not recall the episode. The patient complained of neck pain prior to the syncopal episode. The patient does take multiple medications and has persistent AFib. He is unsure if he is taking his eliquis or any anticoagulants. [facility] Medical History Seizure CKD stage 3b, GFR 30-44 ml/min CHF exacerbation Chronic atrial fibrillation Diabetes mellitus Alzheimer's dementia Acute hypoxic respiratory failure Pneumonia Pneumonia Acute respiratory failure Hypoxia CAD (coronary artery disease) Trash foot Diabetic foot infection Heart failure with preserved ejection fraction HLD (hyperlipidemia) Atrial fibrillation NSTEMI (non-ST elevated myocardial infarction) Kidney failure Diabetes HTN (hypertension) Family History Father No problems noted. Mother No problems noted. Surgical History No pertinent past surgical history Social History Household Members: Family and Children Household Members Other:: sons and daughter in law Housing: House Do you presently have visiting nurse or other home services: Yes Unable to assess alcohol history related to: Unable to respond Alcohol intake: never Patient Tobacco Use Status: Never used Tobacco e-Cigarette/Vaping Use: Never Used Second Hand Smoke Exposure: No Advance Directives: Yes Advance Directives on File: Yes Advance Directives Date on File: 09/06/21 Do you have a plan to hurt others: No Plan service: No Current occupational status: retired Meds Allergies Allergy/AdvReac Type Severity Reaction Status Date / Time No Known Allergies Allergy Verified 07/20/25 19:28 Home Medications ?Medication ?Instructions ?Recorded ?Confirmed ?Last Taken ?Type apixaban 5 mg tablet (Eliquis) 5 mg PO BID 09/05/21 03/08/25 02/27/25 History donepezil 10 mg tablet 1 tab PO BEDTIME 09/05/21 03/08/25 02/27/25 History yiwbjfew-ila-gxyjz acid 0.4 1 tab PO DAILY 09/05/21 03/08/25 02/27/25 History mg-lycopene 300 mcg-lutein 250 mcg tablet (CertaVite Senior) allopurinol 100 mg tablet 50 mg PO DAILY gout pain 10/07/21 03/08/25 02/27/25 History insulin syringe-needle U-100 1 mL #10 ea 12/22/21 03/08/25 02/27/25 History 31 gauge x 16 memantine 10 mg tablet 10 mg PO BID 05/08/22 03/08/25 02/27/25 History metoprolol tartrate 100 mg tablet 100 mg PO BID 05/08/22 03/08/25 02/27/25 History cetirizine 10 mg tablet 10 mg PO DAILY congestion 08/17/23 03/08/25 02/27/25 History omeprazole 20 mg capsule,delayed 20 mg PO BID@0630,1630 05/17/24 03/08/25 02/27/25 History release sucralfate 1 gram tablet 1 g PO TIDAC 05/17/24 03/08/25 02/27/25 History magnesium oxide 250 mg PO DAILY 11/25/24 03/08/25 02/27/25 History insulin aspar prt-insulin aspart 76 unit subcut BIDWM 12/24/24 03/08/25 02/27/25 History 100 unit/mL (70-30) subcutaneous soln (Novolog Mix 70-30 U-100 Insuln) diphenhydramine HCl 25 mg tablet 12.5 mg PO BEDTIME PRN Allergy 01/08/25 03/08/25 02/27/25 History (Nell-Dryl) Symptoms dapagliflozin propanediol 5 mg 5 mg PO DAILY 02/27/25 03/08/25 02/27/25 History tablet (Farxiga) amlodipine 2.5 mg tablet 2.5 mg PO QAM 03/08/25 03/08/25 Unknown History Physical Exam Vital Signs and Narrative: Vital Signs: Last Vital Signs Temp 97.8 F 07/20/25 22:10 Pulse 52 07/20/25 22:10 Resp 16 07/20/25 22:10 BP 108/54 L 07/20/25 22:10 Pulse Ox 93 07/20/25 20:38 O2 Del Method Room Air 07/20/25 22:10 BMI result Body Mass Index 32.6 General: AOx3, no acute distress, seen with electronic console display operator Resp: CTA bilaterally, no crackles or wheezing CVS: irregularly irregular, normal rate GI: +BS, NT, no distention Skin: Warm, dry Neuro: Cranial nerves II-XII grossly intact bilaterally. Motor grossly intact bilaterally Extremities: No pitting edema Psych: Appropriate affect Results Labs 07/20/25 20:31 07/20/25 20:31 Labs: Laboratory Results - last 24 hr 07/20/25 20:31 MCV 81.4 MCH 24.6 L MCHC 30.2 L RDW 18.5 H Plt Count 203 MPV 11.9 Immature Gran % (Auto) 0.2 Neut % (Auto) 77.9 H Lymph % (Auto) 12.2 L Coleman % (Auto) 7.1 Eos % (Auto) 2.0 Baso % (Auto) 0.6 Lymph # (Auto) 1.2 Coleman # (Auto) 0.7 Eos # (Auto) 0.2 Baso # (Auto) 0.1 Abs Immat Gran (auto) 0.02 Absolute Neuts (auto) 7.5 Absolute Nucleated RBC 0.000 Nucleated RBC % (auto) 0.0 PT 19.1 H INR 1.7 H Anion Gap 17 Estim Creat Clear Calc 29.1 Estimated GFR 26 Random Glucose 303 H Calcium 8.8 Magnesium 2.6 Total Bilirubin 0.4 AST 21 ALT 11 Alkaline Phosphatase 101 B-Natriuretic Peptide 366 H Total Protein 7.1 Albumin 3.7 Assessment and Plan (1) Syncopal episodes: Status: Acute (2) Atrial fibrillation with slow ventricular response: Status: Acute (3) Acute kidney injury superimposed on stage 3b chronic kidney disease: Status: Acute (4) Chronic anemia: Status: Acute (5) Class 1 obesity: Status: Acute Plan Patient is an 80-year-old male with a past medical history significant for dementia, AFib on Eliquis, HFpEF, BPH, NSTEMI, gout, CAD, CKD 3B and history upper GI bleed, who presented to the ED due to a witnessed syncopal episode. syncopal episode - witnessed syncopal episode, likely syncopal convulsions - head CT negative - no leukocytosis or evidence of infection - CXR with small L pleural effusion - BNP 366 - concern for polypharmacy - check orthostatics - echo - monitor on tele - cardiology consult - check EEG and neuro consult a fib with slow ventricular response - hold metoprolol for now - continue eliquis (await med rec) - monitor on tele JAMES on CKD - cr 2.43 - IVF held due to HFpEF - avoid nephrotoxins - monitor cr chronic anemia - hemoglobin 9.0, stable - no need for blood transfusion at this time - monitor CBC chronic HFpEF, no acute exacerbation - no evidence of fluid overload on exam, no SOB, crackles or pitting edema - CXR with small L pleural effusion - BNP 366 - continue home meds BPH - continue home meds gout - continue home meds CAD - continue home meds med rec pending full code VTE prophy: eliquis (await med rec) Pt with syncopal episode with convulsions, requiring admission for at least 2 midnights stay for monitoring and further evaluation. Quality Stroke Does the patient have a stroke diagnosis?: No VTE Prior VTE?: No VTE Risk Level:: Medical - moderate - high VTE Device Contraindication: Treatment Not Indicated VTE Drug Contraindication: N/A - Med Ordered
[2025-07-21] VITALS (12 sets, daily range): BP systolic 125–148; BP diastolic 44–89; PULSE 56–86; RESP 13–18; TEMP 36.1–36.9; O2SAT 93–98; BMI 32.3; BMI 32.6
--- NOTE | 2025-07-21 | EEG_ITS ---
Reason For EEG: Syncope Medications: eliquis, donepezil, multivit, allopurinol, insulin,memantine, cetirizine, magnesium, farxiga History: H/O dementia, afib, NSTEMI, gout, CAD, CKD, GI bleed, resp failure, htn, diabetes, pneumonia, acute hypoxic resp failure- admitted for witnessed syncopal episode- pt stood from toilet and LOC with some convulsions and eyes rolled back witnessed by family- Coal Weigher Comments: Photic stimulation: Completed Hyperventilation: Performed Behavioral state: cooperative and followed commands State of consciousness: awake with periods of light sleep Skull defect: no Sedation: no Duration of study: 00:22:40 Description: The waking background activity consists of low-voltage fast frequencies seen diffusely intermixed with a poorly defined low-voltage 7.5 hertz posterior slow alpha. Photic stimulation is without activation. Hyperventilation produces no change in the background activity. Brief periods of drowsiness characterized by diffuse theta slowing. No focal, lateralizing or paroxysmal discharges are seen Impression: This waking and briefly drowsy EEG is considered within normal limits. No epileptiform discharges are seen MTDD
--- NOTE | 2025-07-21 05:50 | PC.NURSE ---
pt used urinal independently. about 725 mL CYU emptied, charted
--- NOTE | 2025-07-21 06:20 | PC.NURSE ---
charge suze and manolo aware patient in room. BID ANALYST taking vitals. bed alarm on
--- NOTE | 2025-07-21 07:00 | CA_ITS ---
Transthoracic Echocardiogram Patient (Last, First, Middle): Dayton Oquendo A Gender: Male Date of : 1945 Age: 80 Procedure Date: 07/21/2025 Procedure Type: Transthoracic [place] [facility] [place]: 177.8 cm Weight: 101.61 kg BSA: 2.19 m2 Heart Rate: 73 bpm BP: 143 / 67 mmHg Glue Spreader: VH/RC Referring MD: Alona Muñiz PA-C Symptoms: syncope Study Quality: Adequate ECG Rhythm: Atrial Fibrillation Conclusions: - The left ventricular systolic function is normal. The calculated ejection fraction is 60% by biplane method. - No obvious valvular pathology seen on this study. Findings Left Ventricle Normal left ventricular cavity size. There is mildly increased left ventricular wall thickness. The left ventricular systolic function is normal. The calculated ejection fraction is 60% by biplane method. There is no evidence of regional wall motion abnormalities. Diastolic function is indeterminate on the basis of available data. Right Ventricle Normal right ventricular cavity size. There is normal right ventricular systolic function. Atria The left atrium is moderately dilated. The right atrium is mildly dilated. Aortic Valve There is a normal trileaflet aortic valve. There is no aortic valve stenosis. There is no aortic valve regurgitation. Mitral Valve The mitral valve appears normal. There is no mitral valve regurgitation. There is no mitral valve stenosis. Pulmonic Valve The pulmonic valve is likely normal. Tricuspid Valve There is trace tricuspid valve regurgitation. There is no evidence of pulmonary hypertension. Great Vessels The asc aorta is normal in size. Venous The inferior vena cava is normal in size and collapses less than 50% with inspiration. Pericardium/Pleural Prominent epicardial adipose tissue noted. There is no evidence of pericardial effusion. Prior Study Comparison Changes noted compared to prior study dated: 11/28/2024. Improved LVEF. Recommendations, Care & Conclusions No obvious valvular pathology seen on this study. Measurements 2D Linear Measurements IVSd: 1.29 0.6-0.9/0.6-1.0 cm LVIDd: 4.65 3.9-5.3/4.2-5.9 cm LVIDd Index: 2.12 2.4-3.2/2.2-3.1 cm/m2 LVIDs: 3.34 2.0-3.6 cm LVPWd: 1.41 0.7-1.1 cm LA Diam: 4.70 2.7-3.8/3.0-4.0 cm LAIDs Index: 2.15 1.5-2.3 cm/m2 LV Mass: 308.38 67-162/88-224 g LV Mass Index: 140.81 43-95/49-115 g/m2 LVOT Diam: 2.30 3.0+(-)1.3 cm 2D Systolic Function EF 4C: 61.10 >55% EF 2C: 58.60 >55% EF BiP: 59.80 >55% Mitral Valve MV Pk E: 0.86 MV Decel Time: 192.00 E'Lateral: 8.92 E'Medial: 8.38 E/E' Med: 10.30 E/E' Lat: 9.70 PHT: 56.00 MVA PHT: 3.93 Decel Fergus: 4.53 Aortic Valve AoV Pk Fuentes: 1.24 AoV Mn Fuentes: 1.00 AoV VTI: 0.36 AoV Pk Grad: 6.00 Aov Mn Grad: 4.00 ELENA Cont.VTI: 2.65 LVOT LVOT Pk Fuentes: 1.01 LVOT Mn Fuentes: 0.60 LVOT VTI: 0.23 LVOT Pk Grad: 4.00 LVOT Mn Grad: 2.00 LVOT Diam: 2.30 LVOT Area: 4.15 Diastolic Function MV Pk E: 0.86 E'Medial: 8.38 E/E' Med: 10.30 E' Laterial: 8.92 E/E' Lat: 9.70 Right Ventricle TAPSE (mm): 20.30 TVS' Fuentes: 10.90 Tricuspid Valve RA Press: 3.00 Great Vessels Aorta Sinus of Valsalva: 3.70 2.0-3.5 cm Ao Asc: 3.70 2.1-3.4 cm Pulmonary Valve PV Pk Fuentes: 0.79 Peak PV Grad: 2.00 Updated in Other Vendor System with Status of Final Som Salguero MD electronically signed on 07/21/2025 11:23:13 AM with status of Final
--- NOTE | 2025-07-21 08:42 | PM.NEUROCN ---
History of Present Illness Data of Consult Service Date: 07/21/25 Primary Care Provider: Unknown Physician HPI Reason for consult: Syncope ? Sz This is an 80-year-old male with a h/o Alzheimer's dementia, AFib on Eliquis, HFpEF, BPH, NSTEMI, gout, CAD, CKD 3B and history upper GI bleed, who presented to the ED due to a witnessed syncopal episode. Patient was in the restroom and got up from the toilet and had a syncopal episode. The family reported seizure-like activity with some convulsions and eyes rolled back with LOC. No head strike. The patient did not have a postictal period, no bowel or urine incontinence, he does not recall the episode. The patient complained of neck pain prior to the syncopal episode. The patient does take multiple medications and has persistent AFib. He is unsure if he is taking his Eliquis or any anticoagulants. Labs show UTI . CT scan of brain Is negative for acute findings. [facility] Past Medical History Medical History (Updated 07/21/25 @ 16:21 by Marcelle Dietrich MD) Seizure Alzheimer's dementia Chronic atrial fibrillation CKD stage 3b, GFR 30-44 ml/min CHF exacerbation Diabetes mellitus Acute hypoxic respiratory failure Pneumonia Pneumonia Acute respiratory failure Hypoxia CAD (coronary artery disease) Trash foot Diabetic foot infection Heart failure with preserved ejection fraction HLD (hyperlipidemia) Atrial fibrillation NSTEMI (non-ST elevated myocardial infarction) Kidney failure Diabetes HTN (hypertension) Family History Family History Father No problems noted. Mother No problems noted. Surgical History Surgical History No pertinent past surgical history Social History Social History Household Members: Family Household Members Other:: sons and daughter in law Housing: House Do you presently have visiting nurse or other home services: Yes Unable to assess alcohol history related to: Unable to respond Alcohol intake: never Patient Tobacco Use Status: Never used Tobacco e-Cigarette/Vaping Use: Never Used Second Hand Smoke Exposure: No Advance Directives Date on File: 09/06/21 service: No Current occupational status: retired Meds Allergies Allergy/AdvReac Type Severity Reaction Status Date / Time No Known Allergies Allergy Verified 07/20/25 19:28 Active Medications: Current Medications Acetaminophen (Acetaminophen 325 Mg Tablet) 975 mg PO Q6H PRN PRN Reason: Pain, Mild 1-3,fever,headache Apixaban (Apixaban 2.5 Mg Tablet) 2.5 mg PO BID REYNALDO Calcium Carbonate (Calcium Carbonate 750 Mg Tab.Chew) 750 mg PO Q4H PRN PRN Reason: Heartburn Magnesium Hydroxide (Milk Of Magnesia 30 Ml Oral.Susp) 30 ml PO DAILY PRN PRN Reason: Constipation Melatonin (Melatonin 3 Mg Tablet) 6 mg PO BEDTIME PRN PRN Reason: Insomnia Ondansetron HCl (Ondansetron Hcl 4 Mg/2 Ml Vial) 4 mg IVPUSH Q8H PRN PRN Reason: Nausea and Vomiting Oxycodone HCl (Oxycodone Hcl Immed Release 5 Mg Tablet) 5 mg PO Q6H PRN PRN Reason: Pain, Severe (Pain Scale 7-10) Sodium Chloride (0.9 % Sodium Chloride Flush 3 Ml Syringe) 3 ml IVFLUSH QSHIFT REYNALDO Tramadol HCl (Tramadol Hcl 50 Mg Tablet) 50 mg PO Q6H PRN PRN Reason: Pain, Moderate(Pain Scale 4-6) Home Medications ?Medication ?Instructions ?Recorded ?Confirmed ?Last Taken ?Type apixaban 5 mg tablet (Eliquis) 5 mg PO BID 09/05/21 07/21/25 02/27/25 History donepezil 10 mg tablet 10 mg PO BEDTIME 09/05/21 07/21/25 02/27/25 History yhnpxxri-qwv-zlhus acid 0.4 1 tab PO DAILY 09/05/21 07/21/25 02/27/25 History mg-lycopene 300 mcg-lutein 250 mcg tablet (CertaVite Senior) allopurinol 100 mg tablet 50 mg PO DAILY gout pain 10/07/21 07/21/25 02/27/25 History insulin syringe-needle U-100 1 mL #10 ea 12/22/21 03/08/25 02/27/25 History 31 gauge x 16 memantine 10 mg tablet 10 mg PO BID 05/08/22 07/21/25 02/27/25 History metoprolol tartrate 100 mg tablet 100 mg PO BID 05/08/22 07/21/25 02/27/25 History cetirizine 10 mg tablet 10 mg PO DAILY congestion 08/17/23 07/21/25 02/27/25 History omeprazole 20 mg capsule,delayed 20 mg PO BID@0630,1630 05/17/24 07/21/25 02/27/25 History release sucralfate 1 gram tablet 1 g PO TIDAC 05/17/24 07/21/25 02/27/25 History magnesium oxide 250 mg PO DAILY 11/25/24 07/21/25 02/27/25 History insulin aspar prt-insulin aspart 76 unit subcut BIDWM 12/24/24 07/21/25 02/27/25 History 100 unit/mL (70-30) subcutaneous soln (Novolog Mix 70-30 U-100 Insuln) diphenhydramine HCl 25 mg tablet 12.5 mg PO BEDTIME PRN Allergy 01/08/25 07/21/25 02/27/25 History (Nell-Dryl) Symptoms dapagliflozin propanediol 5 mg 5 mg PO DAILY 02/27/25 07/21/25 02/27/25 History tablet (Farxiga) amlodipine 2.5 mg tablet 2.5 mg PO DAILY 03/08/25 07/21/25 Unknown History bumetanide 1 mg tablet 1 mg PO BID@0800,1200 07/21/25 07/21/25 Unknown History gabapentin 800 mg tablet 800 mg PO BID 07/21/25 07/21/25 Unknown History Physical Exam Vital Signs: Vital Signs: Last Vital Signs Temp 97.5 F 07/21/25 08:00 Pulse 59 07/21/25 08:00 Resp 18 07/21/25 08:00 BP 126/61 07/21/25 08:00 Pulse Ox 98 07/21/25 08:00 O2 Del Method Room Air 07/21/25 08:00 O2 Flow Rate 1 07/21/25 06:00 BMI result Body Mass Index 32.3 Neuro: Other: He is alert pleasant and cooperative. He is oriented to person but not to time. His neurological examination is entirely nonfocal. Plantar responses flexor. Neck is supple Results Labs 07/20/25 20:31 07/20/25 20:31 Labs: Short CBC 07/20/25 Range/Units 20:31 WBC 9.6 (4.8-10.8) X10*3/uL Hgb 9.0 L (14.0-18.0) g/dl Hct 29.8 L (42.0-52.0) % Plt Count 203 (160-400) X10*3/uL BMP 07/20/25 20:31 Sodium 140 Potassium 4.0 D Chloride 97 Carbon Dioxide 30 H BUN 44 H Creatinine 2.43 H Calcium 8.8 Liver Function 07/20/25 Range/Units 20:31 Total Bilirubin 0.4 (0.0-1.0) mg/dL AST 21 (5-37) U/L ALT 11 (0-40) U/L Alkaline Phosphatase 101 (39-117) U/L Albumin 3.7 (3.5-5.0) g/dL Assessment and Plan (1) Seizure: Start date: 07/20/25 Status: Acute He appears to have had a syncopal episode and then some twitching activity which was interpreted as a seizure. He has no previous history of seizures. It could possibly be hypoxic seizure related to cerebral hypoperfusion from a syncopal episode. Would recommend EEG and a 7 day cardiac event monitor. I would not start him on any antiepileptic drugs unless the EEG shows some abnormality consistent with a seizure disorder. (2) Alzheimer's dementia: Qualifiers: Alzheimer's disease onset: unspecified onset Dementia severity: unspecified severity Dementia behavioral or psychological symptom: without behavioral, psychotic, or mood disturbance or anxiety Qualified Code(s): G30.9 - Alzheimer's disease, unspecified; F02.80 - Dementia in other diseases classified elsewhere, unspecified severity, without behavioral disturbance, psychotic disturbance, mood disturbance, and anxiety Status: Acute Procedures Date of Service Date of Service: 07/21/25
[2025-07-21 09:46] LABS: Hematocrit 27.6 % (42.0-52.0); Hemoglobin 8.4 g/dl (14.0-18.0); Mean Corpuscular HGB Conc 30.4 g/dl (31.0-36.0); Mean Corpuscular Hemoglobin 24.1 pg (27.0-33.0); Mean Corpuscular Volume 79.3 fL (80.0-98.0); NRBC Abs Auto 0.000 X10*3/uL (0.0-0.012); NRBC Pct Auto 0.0 /100WBC (0.0-0.2); Platelet Count 176 X10*3/uL (160-400); Red Blood Count 3.48 X10*6/uL (4.60-5.80); White Blood Count 8.2 X10*3/uL (4.8-10.8)
[2025-07-21 09:57] LABS: Anion Gap 18 (12-20); Blood Urea Nitrogen 38 mg/dL (9-16); Calcium 8.4 mg/dL (8.4-10.2); Carbon Dioxide 27 mmol/L (22-29); Chloride 97 mmol/L (96-108); Creatinine Clr Calc Pharmacy 33.0; Estimated Glomerular Filt Rate 30; Potassium 4.6 mmol/L (3.3-5.1); Sodium 137 mmol/L (135-145)
--- NOTE | 2025-07-21 09:58 | P.PNIM_ITS ---
Subjective Subjective Date of Service: 07/21/25 Interval History: Seen and evaluated in his room where he is resting comfortably in bed No acute events overnight Pt reports he feels ?pretty good? No acute medical complaints Hx of dementia, poor historian, unsure why he is here Review of Systems Review of Systems: Yes all other systems are reviewed and are negative Physical Exam 2 Exam: Exam: General: Alert and oriented to person and place, not to time or situation. In no acute distress Resp: CTA bilaterally CVS: S1, S2, RRR GI: +BS, NT, no distention Skin: Warm, dry Neuro: Cranial nerves II-XII grossly intact bilaterally. Motor grossly intact bilaterally Extremities: No edema Psych: Pleasantly confused Vital Signs: Vital Signs: Last Vital Signs Temp 97.5 F 07/21/25 08:00 Pulse 59 07/21/25 08:00 Resp 18 07/21/25 08:00 BP 126/61 07/21/25 08:00 Pulse Ox 98 07/21/25 08:00 O2 Del Method Room Air 07/21/25 08:00 O2 Flow Rate 1 07/21/25 06:00 BMI result Body Mass Index 32.3 Objective Data Active Medications Acetaminophen (Acetaminophen 325 Mg Tablet) 975 mg PO Q6H PRN PRN Reason: Pain, Mild 1-3,fever,headache Apixaban (Apixaban 2.5 Mg Tablet) 2.5 mg PO BID REYNALDO On Hold: 07/21/25 09:00 Calcium Carbonate (Calcium Carbonate 750 Mg Tab.Chew) 750 mg PO Q4H PRN PRN Reason: Heartburn Magnesium Hydroxide (Milk Of Magnesia 30 Ml Oral.Susp) 30 ml PO DAILY PRN PRN Reason: Constipation Melatonin (Melatonin 3 Mg Tablet) 6 mg PO BEDTIME PRN PRN Reason: Insomnia Ondansetron HCl (Ondansetron Hcl 4 Mg/2 Ml Vial) 4 mg IVPUSH Q8H PRN PRN Reason: Nausea and Vomiting Oxycodone HCl (Oxycodone Hcl Immed Release 5 Mg Tablet) 5 mg PO Q6H PRN PRN Reason: Pain, Severe (Pain Scale 7-10) Sodium Chloride (0.9 % Sodium Chloride Flush 3 Ml Syringe) 3 ml IVFLUSH QSHIFT [facility] Tramadol HCl (Tramadol Hcl 50 Mg Tablet) 50 mg PO Q6H PRN PRN Reason: Pain, Moderate(Pain Scale 4-6) Labs 07/21/25 09:36 07/21/25 09:36 Labs: Laboratory Results - last 24 hr 07/20/25 07/21/25 20:31 09:36 MCV 81.4 79.3 L MCH 24.6 L 24.1 L MCHC 30.2 L 30.4 L RDW 18.5 H 18.4 H Plt Count 203 176 MPV 11.9 11.8 Immature Gran % (Auto) 0.2 Neut % (Auto) 77.9 H Lymph % (Auto) 12.2 L [place] % (Auto) 7.1 Eos % (Auto) 2.0 Baso % (Auto) 0.6 Lymph # (Auto) 1.2 [place] # (Auto) 0.7 Eos # (Auto) 0.2 Baso # (Auto) 0.1 Abs Immat Gran (auto) 0.02 Absolute Neuts (auto) 7.5 Absolute Nucleated RBC 0.000 0.000 Nucleated RBC % (auto) 0.0 0.0 PT 19.1 H INR 1.7 H Anion Gap 17 18 Estim Creat Clear Calc 29.1 33.0 Estimated GFR 26 30 Random Glucose 303 H 316 H Calcium 8.8 8.4 Magnesium 2.6 Total Bilirubin 0.4 AST 21 ALT 11 Alkaline Phosphatase 101 B-Natriuretic Peptide 366 H Total Protein 7.1 Albumin 3.7 Assessment and Plan (1) Syncopal episodes: Status: Acute Plan Patient is an 80-year-old male with a past medical history significant for dementia, AFib on Eliquis, HFpEF, BPH, NSTEMI, gout, CAD, CKD 3B and history upper GI bleed, who presented to the ED due to a witnessed syncopal episode. syncopal episode - witnessed syncopal episode, likely syncopal convulsions - head CT negative - no leukocytosis or evidence of infection - CXR with small L pleural effusion; BNP 366 - concern for polypharmacy - orthostatics positive; will give some gentle IVF; repeat orthostatics tomorrow - echo showed LVEF 60%, moderately dilated left atrium and mildly dilated right atrium - monitor on tele - cardiology consulted, suggested reducing metoprolol - neurology consulted, suggested seizure activity possibly a hypoxic seizure related to cerebral hypoperfusion from a syncopal episode - will check EEG a fib with slow ventricular response - reduced metoprolol from 100 mg b.i.d. to 50 mg b.i.d.; HR currently in the 80s - reduce Eliquis to 2.5mg daily - monitor on tele JAMES on CKD - cr 2.43, improved today to 2.13 - IVF initially held due to HFpEF; will gently resuscitate with 500 cc IVF - avoid nephrotoxins - monitor cr chronic anemia - hemoglobin 8.4, slightly below baseline - no need for blood transfusion at this time - monitor CBC chronic HFpEF, no acute exacerbation - no evidence of fluid overload on exam, no SOB, crackles or pitting edema - prior echocardiogram from November, LVEF of 20-25% with wall motion abnormalities thought to be possibly stress-induced cardiomyopathy - CXR with small L pleural effusion - BNP 366 - continue home meds BPH - continue home meds gout - continue home meds CAD - continue home meds med rec pending full code VTE prophy: eliquis Pt with syncopal episode with convulsions, requiring admission for at least 2 midnights stay for monitoring and further evaluation. Quality Stroke Does the patient have a stroke diagnosis?: No VTE Prior VTE?: No VTE Risk Level:: Medical - moderate - high VTE Device Contraindication: Treatment Not Indicated VTE Drug Contraindication: N/A - Med Ordered
--- NOTE | 2025-07-21 10:15 | PM.CNCAR ---
History of Present Illness History of Present Illness Date of Service: 07/21/25 Chief complaint: Syncope Narrative: This is a cardiology consultation regarding syncopal episode. Discussed with patient using oncology account specialist. Per notes, history of dementia, atrial fibrillation on Eliquis, heart failure with preserved ejection fraction, CAD, chronic kidney disease and many comorbidities. It appears that he was admitted because of witnessed syncopal episode. Patient was in the restroom and got up from the toilet and he had a syncopal episode. Family reported seizure-like activity with some convulsions and eyes rolled back. No postictal period. The patient had apparently complained of neck pain prior to the syncopal episode. However, when I questioned him patient states he does not really remember what happened. He states he felt dizzy but he does not recall any passing out. He is also denying any other complaints like chest pains or shortness of breath. He cannot give me any other prior cardiac history. Review of Systems Review of Systems: Yes all other systems are reviewed and are negative Constitutional: Constitutional: Reports as per HPI and Reports no additional constitutional complaints Eyes: Eyes: Reports as per HPI and Denies no additional eye complaints ENT: Denies system reviewed and no additional complaints, except as documented and Reports as per HPI Cardiovascular: Cardiovascular: Reports as per HPI, Reports no additional cardiovascular complaints, Denies acrocyanosis, Denies cool extremities, Denies chest pain, Reports syncope, Denies leg edema, Denies lightheadedness, Denies palpitations and Denies dyspnea Respiratory: Respiratory: Reports as per HPI, Denies no additional respiratory complaints and Denies dyspnea Gastrointestinal: Gastrointestinal: Reports as per HPI and Denies no additional gastrointestinal complaints Genitourinary: Genitourinary: Reports no additional male genitourinary complaints and Reports as per HPI Musculoskeletal: Musculoskeletal: Reports no additional musculoskeletal complaints and Reports as per HPI Integumentary/Breasts: Skin/Breast: Reports system reviewed and no additional complaints, except as docu Neurologic: Reports system reviewed and no additional complaints, except as documented, Reports as per HPI and Reports syncope Psychiatric: Psychiatric: Reports no additional psychiatric complaints and Reports as per HPI Endocrine: Endocrine: Reports no additional endocrine complaints, Reports as per HPI and Denies palpitations Hematologic/Lymphatic: Hematologic/Lymphatic: Reports no additional hematologic/lymphatic complaints and Reports as per HPI Allergic/Immunologic: Allergic/Immunologic: Reports no additional allergic/immunologic complaints and Reports as per [facility] Past Medical History Medical History (Updated 07/21/25 @ 10:19 by Som Salguero MD) Chronic atrial fibrillation Seizure CKD stage 3b, GFR 30-44 ml/min CHF exacerbation Diabetes mellitus Alzheimer's dementia Acute hypoxic respiratory failure Pneumonia Pneumonia Acute respiratory failure Hypoxia CAD (coronary artery disease) Trash foot Diabetic foot infection Heart failure with preserved ejection fraction HLD (hyperlipidemia) Atrial fibrillation NSTEMI (non-ST elevated myocardial infarction) Kidney failure Diabetes HTN (hypertension) Family History Family History Father No problems noted. Mother No problems noted. Surgical History Surgical History No pertinent past surgical history Social History Social History Household Members: Family Household Members Other:: sons and daughter in law Housing: House Do you presently have visiting nurse or other home services: Yes Unable to assess alcohol history related to: Unable to respond Alcohol intake: never Patient Tobacco Use Status: Never used Tobacco Smoked in Last 30 Days: No e-Cigarette/Vaping Use: Never Used Patient Interested in Nicotine Replacement: No Patient Given Instructions on How to Stop Smoking: No Second Hand Smoke Exposure: No Use of substances other than those prescribed or required for medical reasons: No Have you been hit, kicked, punched, or otherwise hurt by someone within the past year? If so, by whom?: No Do you feel safe in your current relationship?: No Current Relationship Is there a partner from a previous relationship who is making you feel unsafe now?: No Are you made to feel afraid or neglected: No Spiritual Healthcare Practices: non practicing Buddhist Advance Directives: Yes Advance Directives on File: Yes Advance Directives Date on File: 09/06/21 Do you have a plan to hurt others: No Plan Recently lost weight without trying: No Eating poorly because of decreased appetite: No Nutrition Risks: No Nutritional Risk Poor oral hygiene: Yes service: No Current occupational status: retired Meds Allergies Allergy/AdvReac Type Severity Reaction Status Date / Time No Known Allergies Allergy Verified 07/20/25 19:28 Active Medications: Current Medications Acetaminophen (Acetaminophen 325 Mg Tablet) 975 mg PO Q6H PRN PRN Reason: Pain, Mild 1-3,fever,headache Apixaban (Apixaban 2.5 Mg Tablet) 2.5 mg PO BID [facility] On Hold: 07/21/25 09:00 Calcium Carbonate (Calcium Carbonate 750 Mg Tab.Chew) 750 mg PO Q4H PRN PRN Reason: Heartburn Magnesium Hydroxide (Milk Of Magnesia 30 Ml Oral.Susp) 30 ml PO DAILY PRN PRN Reason: Constipation Melatonin (Melatonin 3 Mg Tablet) 6 mg PO BEDTIME PRN PRN Reason: Insomnia Ondansetron HCl (Ondansetron Hcl 4 Mg/2 Ml Vial) 4 mg IVPUSH Q8H PRN PRN Reason: Nausea and Vomiting Oxycodone HCl (Oxycodone Hcl Immed Release 5 Mg Tablet) 5 mg PO Q6H PRN PRN Reason: Pain, Severe (Pain Scale 7-10) Sodium Chloride (0.9 % Sodium Chloride Flush 3 Ml Syringe) [address] [facility] Tramadol HCl (Tramadol Hcl 50 Mg Tablet) 50 mg PO Q6H PRN PRN Reason: Pain, Moderate(Pain Scale 4-6) Home Medications ?Medication ?Instructions ?Recorded ?Confirmed ?Last Taken ?Type apixaban 5 mg tablet (Eliquis) 5 mg PO BID 09/05/21 03/08/25 02/27/25 History donepezil 10 mg tablet 10 mg PO BEDTIME 09/05/21 03/08/25 02/27/25 History giodxhgv-srt-ywogb acid 0.4 1 tab PO DAILY 09/05/21 03/08/25 02/27/25 History mg-lycopene 300 mcg-lutein 250 mcg tablet (CertaVite Senior) allopurinol 100 mg tablet 50 mg PO DAILY gout pain 10/07/21 03/08/25 02/27/25 History insulin syringe-needle U-100 1 mL #10 ea 12/22/21 03/08/25 02/27/25 History 31 gauge x 04/10 memantine 10 mg tablet 10 mg PO BID 05/08/22 03/08/25 02/27/25 History metoprolol tartrate 100 mg tablet 100 mg PO BID 05/08/22 03/08/25 02/27/25 History cetirizine 10 mg tablet 10 mg PO DAILY congestion 08/17/23 03/08/25 02/27/25 History omeprazole 20 mg capsule,delayed 20 mg PO BID@0630,1630 05/17/24 03/08/25 02/27/25 History release sucralfate 1 gram tablet 1 g PO TIDAC 05/17/24 03/08/25 02/27/25 History magnesium oxide 250 mg PO DAILY 11/25/24 03/08/25 02/27/25 History insulin aspar prt-insulin aspart 76 unit subcut BIDWM 12/24/24 03/08/25 02/27/25 History 100 unit/mL (70-30) subcutaneous soln (Novolog Mix 70-30 U-100 Insuln) diphenhydramine HCl 25 mg tablet 12.5 mg PO BEDTIME PRN Allergy 01/08/25 03/08/25 02/27/25 History (Nell-Dryl) Symptoms dapagliflozin propanediol 5 mg 5 mg PO DAILY 02/27/25 03/08/25 02/27/25 History tablet (Farxiga) amlodipine 2.5 mg tablet 2.5 mg PO QAM 03/08/25 03/08/25 Unknown History Physical Exam Vital Signs: Vital Signs: Last Vital Signs Temp 97.5 F 07/21/25 08:00 Pulse 59 07/21/25 08:00 Resp 18 07/21/25 08:00 BP 126/61 07/21/25 08:00 Pulse Ox 98 07/21/25 08:00 O2 Del Method Room Air 07/21/25 08:00 O2 Flow Rate 1 07/21/25 06:00 BMI result Body Mass Index 32.3 Const: General: comfortable and no acute distress Orientation/consciousness: patient oriented x3 HEENT: Other: Unremarkable Head: Yes normal to inspection Neck: Neck: Yes normal visual inspection Chest: Chest palpation & inspection: normal inspection of the chest Resp: Auscultation: clear to auscultation bilaterally Cardio: Palpation: normal PMI Heart sounds: S1 normal heart sound present, S2 normal heart sound present, no gallops, no murmurs and no rubs GI: Palpation (GI): Soft to palpation Back/Spine/Pelvis: Other: unremarkable Skin: General skin exam: no rashes or lesions noted Neuro: General: patient oriented x3 Extrem: General: Yes normal to inspection Psych: Mental Status: mental status grossly normal Objective Labs and Meds 07/21/25 09:36 07/21/25 09:36 Lab results: Laboratory Results - last 24 hr 07/20/25 07/21/25 20:31 09:36 WBC 9.6 8.2 RBC 3.66 L 3.48 L Hgb 9.0 L 8.4 L Hct 29.8 L 27.6 L MCV 81.4 79.3 L MCH 24.6 L 24.1 L MCHC 30.2 L 30.4 L RDW 18.5 H 18.4 H Plt Count 203 176 MPV 11.9 11.8 Immature Gran % (Auto) 0.2 Neut % (Auto) 77.9 H Lymph % (Auto) 12.2 L [place] % (Auto) 7.1 Eos % (Auto) 2.0 Baso % (Auto) 0.6 Lymph # (Auto) 1.2 [place] # (Auto) 0.7 Eos # (Auto) 0.2 Baso # (Auto) 0.1 Abs Immat Gran (auto) 0.02 Absolute Neuts (auto) 7.5 Absolute Nucleated RBC 0.000 0.000 Nucleated RBC % (auto) 0.0 0.0 PT 19.1 H INR 1.7 H Sodium 140 137 Potassium 4.0 D 4.6 Chloride 97 97 Carbon Dioxide 30 H 27 Anion Gap 17 18 BUN 44 H 38 H Creatinine 2.43 H 2.13 H Estim Creat Clear Calc 29.1 33.0 Estimated GFR 26 30 Random Glucose 303 H 316 H Calcium 8.8 8.4 Magnesium 2.6 Total Bilirubin 0.4 AST 21 ALT 11 Alkaline Phosphatase 101 Troponin I High Sens 6.1 B-Natriuretic Peptide 366 H Total Protein 7.1 Albumin 3.7 ECG Interpretation: EKG shows atrial fibrillation at a rate of 53/Min. Nonspecific ST-T changes. Overall, similar to previous EKGs. Assessment and Plan (1) Syncopal episodes: Status: Acute (2) Cardiomyopathy: Status: Acute (3) Chronic atrial fibrillation: Status: Acute Plan In a prior echocardiogram from January, LVEF of 20-25% with wall motion abnormalities thought to be possibly stress-induced cardiomyopathy. Currently, high sensitivity troponins within range. Cardiac BNP slightly elevated at 366. Overall, cardiomyopathy as above, many comorbidities, stated dementia, syncopal episode of unknown etiology. We will keep on telemetry to ensure there is no long pauses/asystole. Can also monitor for any VT due to history of LV dysfunction. He is listed to be on metoprolol 100 mg b.i.d. at home but we can hold that and let his heart rate go up a bit. Continue anticoagulation. We will follow up on repeat echocardiogram. Procedures Date of Service Date of Service: 07/21/25
--- NOTE | 2025-07-21 11:44 | MHC.CM.PN ---
IMM 07/21/25 DELIVERED TO HCP'S DELLA OVER PHONE AT # ON FILE D/T PT W/[facility]EMENT[facility], [facility] REPORTS PT LIVES W/THEM AND THEY PROVIDE 24HR CARE 50.25 [employer] HRS, NO VNA AT THIS TIME, PT USES A FWW AT HOME, WC FOR LONG DISTANCE AND APPT'S, HAS HOME O2 W/[facility]A PRN, PT HAS NOT NEEDED CONT O2 PER [facility]. GOAL FOR PT IS DC HOME AND FAMILY OPEN TO VNA IF RECOMMENDED. [facility] VERIFIES PCP/HCP ON FILE ARE CORRECT.
--- NOTE | 2025-07-21 13:46 | PHA.MEDREC ---
Addendum entered by rUbano Davila PharmD 07/21/25 13:52: reviewed Original Note: Pharmacy Consult ? Medication Reconciliation Pharmacy has completed the medication reconciliation. Spoke to patient cuauhtemoc Butcher through pulverizing and sifting operator service (#[id number]) over the phone to confirm med list. son Could only confirm Novolog 70-30 76 units bid. Son knows he has to bring in patient insulin. Utilized med list from [facility] to confirm med list.
[2025-07-21] MEDS: 0.9 % Sodium Chloride Flush 3 ML SYRINGE IVFLUSH ×3 (15:20→20:20)
[2025-07-21 17:43] LABS: Glucose, Whole Blood 337 mg/dL (60-115)
[2025-07-21] MEDS: Lactated Ringers 500 ML 80 ML IVCONT (18:10)
[2025-07-21 19:37] LABS: Glucose, Whole Blood 361 mg/dL (60-115)
[2025-07-22] VITALS (14 sets, daily range): BP systolic 116–142; BP diastolic 51–65; PULSE 52–126; RESP 16–20; TEMP 36.3–36.7; O2SAT 91–96
[2025-07-22 07:07] LABS: Hematocrit 28.2 % (42.0-52.0); Hemoglobin 8.3 g/dl (14.0-18.0); Mean Corpuscular HGB Conc 29.4 g/dl (31.0-36.0); Mean Corpuscular Hemoglobin 24.1 pg (27.0-33.0); Mean Corpuscular Volume 81.7 fL (80.0-98.0); NRBC Abs Auto 0.000 X10*3/uL (0.0-0.012); NRBC Pct Auto 0.0 /100WBC (0.0-0.2); Platelet Count 189 X10*3/uL (160-400); Red Blood Count 3.45 X10*6/uL (4.60-5.80); White Blood Count 7.8 X10*3/uL (4.8-10.8)
[2025-07-22 07:10] LABS: Glucose, Whole Blood 276 mg/dL (60-115)
[2025-07-22 07:11] LABS: Anion Gap 14 (12-20); Blood Urea Nitrogen 35 mg/dL (9-16); Calcium 8.5 mg/dL (8.4-10.2); Carbon Dioxide 28 mmol/L (22-29); Chloride 98 mmol/L (96-108); Creatinine Clr Calc Pharmacy 36.1; Estimated Glomerular Filt Rate 33; Potassium 4.3 mmol/L (3.3-5.1); Sodium 136 mmol/L (135-145)
[2025-07-22] MEDS: 0.9 % Sodium Chloride Flush 3 ML SYRINGE IVFLUSH ×3 (07:55→20:44)
--- NOTE | 2025-07-22 10:29 | PM.PNCARD ---
Subjective Subjective Date of Service: 07/22/25 Interval history: Discussed with patient using double end tenon operator. He states he feels okay. Denies any cardiac symptoms like angina or shortness of breath or palpitations or syncope or in fact anything else of concern. Review of Systems Review of Systems Yes all other systems are reviewed and are negative Constitutional: Reports as per HPI and Reports no additional constitutional complaints Eyes: Reports as per HPI and Denies no additional eye complaints Denies system reviewed and no additional complaints, except as documented and Reports as per HPI Cardiovascular: Reports as per HPI, Reports no additional cardiovascular complaints, Denies acrocyanosis, Denies cool extremities, Denies chest pain, Denies leg edema, Denies lightheadedness, Denies palpitations and Denies dyspnea Respiratory: Reports as per HPI, Denies no additional respiratory complaints and Denies dyspnea Gastrointestinal: Reports as per HPI and Denies no additional gastrointestinal complaints Genitourinary: Reports no additional male genitourinary complaints and Reports as per HPI Musculoskeletal: Reports no additional musculoskeletal complaints and Reports as per HPI Skin/Breast: Reports system reviewed and no additional complaints, except as docu Reports system reviewed and no additional complaints, except as documented and Reports as per HPI Psychiatric: Reports no additional psychiatric complaints and Reports as per HPI Endocrine: Reports no additional endocrine complaints, Reports as per HPI and Denies palpitations Hematologic/Lymphatic: Reports no additional hematologic/lymphatic complaints and Reports as per HPI Allergic/Immunologic: Reports no additional allergic/immunologic complaints and Reports as per HPI Physical Exam Vital Signs: Last Vital Signs Temp 98.1 F 07/22/25 06:58 Pulse 97 07/22/25 09:19 Resp 16 07/22/25 06:58 BP 126/51 L 07/22/25 09:40 Pulse Ox 91 L 07/22/25 06:58 O2 Del Method Room Air 07/22/25 06:58 O2 Flow Rate 1 07/21/25 06:00 BMI result Body Mass Index 32.3 Const General: comfortable and no acute distress Orientation/consciousness: patient oriented x3 HEENT Other: Unremarkable Head: Yes normal to inspection Neck Neck: Yes normal visual inspection Chest Chest palpation & inspection: normal inspection of the chest Resp Auscultation: clear to auscultation bilaterally Cardio Palpation: normal PMI Heart sounds: S1 normal heart sound present, S2 normal heart sound present, no gallops, no murmurs and no rubs GI Palpation (GI): Soft to palpation Back/Spine/Pelvis Other: unremarkable Skin General skin exam: no rashes or lesions noted Neuro General: patient oriented x3 Extrem General: Yes normal to inspection Psych Mental Status: mental status grossly normal Objective Labs and Meds 07/22/25 06:42 07/22/25 06:42 Lab results: Laboratory Results - last 24 hr 07/21/25 07/21/25 07/22/25 17:37 19:34 06:42 WBC 7.8 RBC 3.45 L Hgb 8.3 L Hct 28.2 L MCV 81.7 MCH 24.1 L MCHC 29.4 L RDW 18.3 H Plt Count 189 MPV 12.0 Absolute Nucleated RBC 0.000 Nucleated RBC % (auto) 0.0 Sodium 136 Potassium 4.3 Chloride 98 Carbon Dioxide 28 Anion Gap 14 BUN 35 H Creatinine 1.95 H Estim Creat Clear Calc 36.1 Estimated GFR 33 POC Glucose 337 H 361 H* Random Glucose 293 H Calcium 8.5 07/22/25 06:59 WBC RBC Hgb Hct MCV MCH MCHC RDW Plt Count MPV Absolute Nucleated RBC Nucleated RBC % (auto) Sodium Potassium Chloride Carbon Dioxide Anion Gap BUN Creatinine Estim Creat Clear Calc Estimated GFR POC Glucose 276 H Random Glucose Calcium Progress Note: A&P Assessment and plan (1) Syncopal episodes: Status: Acute (2) Cardiomyopathy: Status: Acute (3) Chronic atrial fibrillation: Status: Acute Plan In a prior echocardiogram from January, LVEF of 20-25% with wall motion abnormalities thought to be possibly stress-induced cardiomyopathy. In the repeat study from yesterday, LVEF is 60% and fully recovered. Currently, high sensitivity troponins within range. Cardiac BNP slightly elevated at 366. Overall, cardiomyopathy with recovered LVEF, many comorbidities, stated dementia, syncopal episode of unknown etiology. No overt findings on telemetry. He has atrial fibrillation in the 50s-60s. He was on metoprolol 100 mg b.i.d. and that is being held. He is now on a smaller dose at 50 mg b.i.d.. We can continue that. Remains on anticoagulation. Otherwise, no specific recommendations. Time Spent With Patient Time: Total time managing care of this patient today ____ minutes. Progress Note: Quality Stroke Does the patient have a stroke diagnosis?: No Procedures Date of Service Date of Service: 07/22/25
--- NOTE | 2025-07-22 10:57 | HO.WOUND ---
Wound Consult: Initial 80yr old male admitted to [facility] on 07/20/25 - See progress notes and H&P for detailed history.? Wound consult placed for Lower Back wound on admission.? Patient agreeable to assessment and photo documentation.? Patient is not able to provide much information on the duration of the wound and etiology. TT to Provider KENJI Watson for surgery consult vs imaging to ruleout need for debridement. 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 Measurements:2cm x2 cm Wound Bed: unable to visualize, dark hyperpigmented tissue with two pin point opening drainage sero purulent creamy drainage no odor noted - firm and fluctance areas noted Pain: denies Goals of Treatment: ? Dry dressing and further eval for assessment and need to further debridement by surgery Recommendations: 1. Turn and Reposition every 2 hours and as needed for patient comfort.? Use pillows or wedges to support off loading positions. 2. Off Load all bony prominences with use of pillows and heel boots if needed.? Apply Preventative foams where needed. ? 3. Monitor for incontinence and moisture control, use barrier creams when needed for prevention and treatment. 4. Provide adequate and supplemental nutrition.? 5. Continue low air loss mattress. 6. When applicable maintain blood glucose levels per Providers order. Lower Back - Cleanse with saline moist gauze, pat dry. Apply skin prep cover with dry gauze dressing. Change daily. Re-consult wound care Nurse for wound deterioration or wound changes.
[2025-07-22 11:23] LABS: Glucose, Whole Blood 276 mg/dL (60-115)
--- NOTE | 2025-07-22 12:30 | MHC.CM.PN ---
Addendum entered by Toña Schneider RN 07/22/25 12:38: REF TO [facility] PLACED FOR SN. Original Note: EMR REVIEWED, [facility] PT NOW W/AFIB W/PAUSES AND WILL NEED FURTHER CARDIO AND POSSIBLE PACEMAKER, NO PLAN FOR DC AT THIS TIME, CM WILL CONT TO FOLLOW DC NEEDS.
--- NOTE | 2025-07-22 12:50 | HO.PM.IMPN ---
Subjective Subjective Date of Service: 07/22/25 Interval History: Pt seen and evaluated in his room where he is resting comfortably in recliner Pt himself has no acute complaints, though has dementia at baseline Was noted to have purulent discharge from small abscess on back Also noted on telemetry to have a short episode AFib with slow ventricular response in the 30s with 2.8 2nd pauses; lasted only a few beats Orthostatics still positive, though improved from yesterday; able to stand and pivot with PT Review of Systems Review of Systems: Yes Unobtainable due to mental status Physical Exam Exam: Exam: General: Alert and oriented to person and place, not to time or situation. In no acute distress Resp: CTA bilaterally CVS: Irregularly irregular rhythm GI: +BS, NT, no distention Skin: Warm, dry Back: 1.5cm area of erythema and induration with purulent discharge located in central lower-mid back. As pictured below Neuro: Cranial nerves II-XII grossly intact bilaterally. Motor grossly intact bilaterally Extremities: No edema Psych: Appropriate affect Vital Signs: Vital Signs: Last Vital Signs Temp 98.1 F 07/22/25 06:58 Pulse 126 H 07/22/25 11:12 Resp 16 07/22/25 06:58 BP 126/51 L 07/22/25 09:40 Pulse Ox 96 07/22/25 11:12 O2 Del Method Room Air 07/22/25 06:58 O2 Flow Rate 1 07/21/25 06:00 BMI result Body Mass Index 32.3 Objective Data Active Medications Acetaminophen (Acetaminophen 325 Mg Tablet) 975 mg PO Q6H PRN PRN Reason: Pain, Mild 1-3,fever,headache Allopurinol (Allopurinol 100 Mg Tablet) 50 mg PO DAILY [facility] Last Admin: 07/22/25 09:41 Dose: 50 mg Documented By: LILO Amlodipine Besylate (Amlodipine Besylate 2.5 Mg Tablet) 2.5 mg PO DAILY [facility]; Protocol Last Admin: 07/22/25 09:40 Dose: 2.5 mg Documented By: LILO Apixaban (Apixaban 2.5 Mg Tablet) 2.5 mg PO BID [facility] Last Admin: 07/22/25 09:41 Dose: 2.5 mg Documented By: LILO Aspirin (Aspirin 81 Mg Tab.Chew) 81 mg PO DAILY [facility] Last Admin: 07/22/25 09:41 Dose: 81 mg Documented By: LILO Atorvastatin Calcium (Atorvastatin Calcium 40 Mg Tablet) 40 mg PO BEDTIME [facility] Last Admin: 07/21/25 20:19 Dose: 40 mg Documented By: JOHNIE Calcium Carbonate (Calcium Carbonate 750 Mg Tab.Chew) 750 mg PO Q4H PRN PRN Reason: Heartburn Dextrose (Dextrose 50 % 25 Gm/50 Ml Syringe) 25 gm IVPUSH Q15M PRN; Protocol PRN Reason: per Hypoglycemia Standing Ord. Diphenhydramine HCl (Diphenhydramine Hcl 12.5 Mg/5 Ml Liquid) 12.5 mg PO BEDTIME PRN PRN Reason: Allergy Symptoms Donepezil HCl (Donepezil Hcl 10 Mg Tablet) 10 mg PO BEDTIME [facility] Last Admin: 07/21/25 20:19 Dose: 10 mg Documented By: JOHNIE Doxycycline Monohydrate (Doxycycline Monohydrate 100 Mg Capsule) 100 mg PO Q12H [facility] Last Admin: 07/22/25 09:42 Dose: 100 mg Documented By: LILO Finasteride (Finasteride 5 Mg Tablet) 5 mg PO DAILY [facility] Last Admin: 07/22/25 09:42 Dose: 5 mg Documented By: LILO Gabapentin (Gabapentin 400 Mg Capsule) 800 mg PO BID [facility] Last Admin: 07/22/25 09:40 Dose: 800 mg Documented By: LILO Glucose (Glucose Gel 15 Gm Gel..Gram.) 15 gm PO Q15M PRN; Protocol PRN Reason: per Hypoglycemia Standing Ord. Insulin Human Lispro (Insulin Lispro 100 Unit/Ml 3 Ml Vial) 0 unit SUBCUT QIDACHS [facility]; Protocol Last Admin: 07/22/25 11:56 Dose: 6 unit Documented By: LILO Loratadine (Loratadine 10 Mg Tablet) 10 mg PO DAILY [facility] Last Admin: 07/22/25 09:40 Dose: 10 mg Documented By: LILO Magnesium Hydroxide (Milk Of Magnesia 30 Ml Oral.Susp) 30 ml PO DAILY PRN PRN Reason: Constipation Magnesium Oxide (Magnesium Oxide 400 Mg Tablet) 200 mg PO DAILY [facility] Last Admin: 07/22/25 09:42 Dose: 200 mg Documented By: LILO Melatonin (Melatonin 3 Mg Tablet) 6 mg PO BEDTIME PRN PRN Reason: Insomnia Last Admin: 07/21/25 20:19 Dose: 6 mg Documented By: JOHNIE Memantine (Memantine Hcl 10 Mg Tablet) 10 mg PO BID [facility] Last Admin: 07/22/25 09:42 Dose: 10 mg Documented By: LILO Metoprolol Tartrate (Metoprolol Tartrate 25 Mg Tablet) 25 mg PO BID [facility]; Protocol Multivitamins/Vitamin C (Multivitamin Tablet) 1 tab PO DAILY [facility] Last Admin: 07/22/25 09:41 Dose: 1 tab Documented By: LILO Omeprazole (Omeprazole 20 Mg Capsule.Dr) 20 mg PO BID@0630,1630 [facility] Last Admin: 07/22/25 05:34 Dose: 20 mg Documented By: REBEKA Ondansetron HCl (Ondansetron Hcl 4 Mg/2 Ml Vial) 4 mg IVPUSH Q8H PRN PRN Reason: Nausea and Vomiting Oxycodone HCl (Oxycodone Hcl Immed Release 5 Mg Tablet) 5 mg PO Q6H PRN PRN Reason: Pain, Severe (Pain Scale 7-10) Sodium Chloride (0.9 % Sodium Chloride Flush 3 Ml Syringe) 3 ml IVFLUSH QSHIFT [facility] Last Admin: 07/22/25 07:55 Dose: 3 ml Documented By: LILO Sucralfate (Sucralfate 1 Gm Tablet) 1 gm PO TIDAC [facility] Last Admin: 07/22/25 11:56 Dose: 1 gm Documented By: LILO Tamsulosin HCl (Tamsulosin Hcl 0.4 Mg Capsule) 0.4 mg PO BEDTIME [facility] Last Admin: 07/21/25 20:20 Dose: 0.4 mg Documented By: JOHNIE Tramadol HCl (Tramadol Hcl 50 Mg Tablet) 50 mg PO Q6H PRN PRN Reason: Pain, Moderate(Pain Scale 4-6) Labs 07/22/25 06:42 07/22/25 06:42 Labs: Laboratory Results - last 24 hr 07/21/25 07/21/25 07/22/25 17:37 19:34 06:42 MCV 81.7 MCH 24.1 L MCHC 29.4 L RDW 18.3 H Plt Count 189 MPV 12.0 Absolute Nucleated RBC 0.000 Nucleated RBC % (auto) 0.0 Anion Gap 14 Estim Creat Clear Calc 36.1 Estimated GFR 33 POC Glucose 337 H 361 H* Random Glucose 293 H Calcium 8.5 07/22/25 07/22/25 06:59 11:04 MCV MCH MCHC RDW Plt Count MPV Absolute Nucleated RBC Nucleated RBC % (auto) Anion Gap Estim Creat Clear Calc Estimated GFR POC Glucose 276 H 276 H Random Glucose Calcium Assessment and Plan (1) Syncopal episodes: Status: Acute Plan Patient is an 80-year-old male with a past medical history significant for dementia, AFib on Eliquis, HFpEF, BPH, NSTEMI, gout, CAD, CKD 3B and history upper GI bleed, who presented to the ED due to a witnessed syncopal episode. syncopal episode - witnessed syncopal episode, likely syncopal convulsions - head CT negative - no leukocytosis or evidence of infection - CXR with small L pleural effusion; BNP 366 - concern for polypharmacy - orthostatics positive for past two days; improved with morning after gentle IVF; repeat orthostatics tomorrow, hold diuretics - echo showed LVEF 60%, moderately dilated left atrium and mildly dilated right atrium - monitor on tele - cardiology consulted, suggested reducing metoprolol to 25 bid - neurology consulted, suggested seizure activity possibly a hypoxic seizure related to cerebral hypoperfusion from a syncopal episode - EEG grossly WNL and negative for epileptiform discharges a fib with slow ventricular response - HR this morning was noted to briefly dip into the 30s with 2.8 second pauses - reduced metoprolol from 100 mg b.i.d. 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 Quality Stroke Does the patient have a stroke diagnosis?: No VTE Prior VTE?: No VTE Risk Level:: Medical - moderate - high VTE Device Contraindication: Treatment Not Indicated VTE Drug Contraindication: N/A - Med Ordered
[2025-07-22 16:25] LABS: Glucose, Whole Blood 355 mg/dL (60-115)
[2025-07-22 20:19] LABS: Glucose, Whole Blood 297 mg/dL (60-115)
[2025-07-22] MEDS: Insulin Glargine,Hum.rec.anlog 100 UNIT/ML 10 ML VIAL 15 UNIT SUBCUT (22:14)
[2025-07-23] VITALS (12 sets, daily range): BP systolic 103–146; BP diastolic 50–73; PULSE 63–93; RESP 16–17; TEMP 36.2–36.4; O2SAT 95–96
[2025-07-23 06:54] LABS: Anion Gap 15 (12-20); Blood Urea Nitrogen 41 mg/dL (9-16); Calcium 8.5 mg/dL (8.4-10.2); Carbon Dioxide 27 mmol/L (22-29); Chloride 98 mmol/L (96-108); Creatinine Clr Calc Pharmacy 35.0; Estimated Glomerular Filt Rate 32; Potassium 4.3 mmol/L (3.3-5.1); Sodium 136 mmol/L (135-145)
[2025-07-23 07:09] LABS: Hematocrit 27.4 % (42.0-52.0); Hemoglobin 8.2 g/dl (14.0-18.0); Mean Corpuscular HGB Conc 29.9 g/dl (31.0-36.0); Mean Corpuscular Hemoglobin 24.0 pg (27.0-33.0); Mean Corpuscular Volume 80.4 fL (80.0-98.0); NRBC Abs Auto 0.000 X10*3/uL (0.0-0.012); NRBC Pct Auto 0.0 /100WBC (0.0-0.2); Platelet Count 182 X10*3/uL (160-400); Red Blood Count 3.41 X10*6/uL (4.60-5.80); White Blood Count 7.8 X10*3/uL (4.8-10.8)
[2025-07-23 07:28] LABS: Glucose, Whole Blood 244 mg/dL (60-115)
[2025-07-23] MEDS: 0.9 % Sodium Chloride Flush 3 ML SYRINGE IVFLUSH ×3 (08:19→21:37)
--- NOTE | 2025-07-23 11:12 | MHC.CM.PN ---
Addendum entered by Toña Schneider RN 07/23/25 14:04: BOOKING ID #[id number] Original Note: EMR REVIEWED, PT REMAINS ORTHOSTATIC, ANTIC PT WILL RETURN HOME W/NEW [facility] FOR SN/PT ONCE MEDICALLY CLEARED. CM WILL CONT TO FOLLOW DC NEEDS.
[2025-07-23] MEDS: Lactated Ringers 250 ML 999 ML IV (11:19)
[2025-07-23 11:28] LABS: Glucose, Whole Blood 333 mg/dL (60-115)
[2025-07-23 15:30] LABS: Glucose, Whole Blood 340 mg/dL (60-115)
--- NOTE | 2025-07-23 17:16 | P.PNIM_ITS ---
Subjective Subjective Date of Service: 07/23/25 Interval History: Pt seen and evaluated in his room where he is resting comfortably in his chair Has no acute complaints Overnight telemetry without acute events, though had another 3.2 second pause with brief episode of slow ventricular response Pt asymptomatic Review of Systems Review of Systems: Yes all other systems are reviewed and are negative Physical Exam 2 Exam: Exam: General: AOx2, mildly confused. In no acute distress Resp: CTA bilaterally CVS: Irregularly irregular rhythm GI: +BS, NT, no distention Skin: Warm, dry Back: Area of been lower back covered in clean dressing Neuro: Cranial nerves II-XII grossly intact bilaterally. Motor grossly intact bilaterally Extremities: No edema Psych: Appropriate affect Vital Signs: Vital Signs: Last Vital Signs Temp 97.2 F 07/23/25 15:52 Pulse 82 07/23/25 15:55 Resp 17 07/23/25 15:52 BP 132/58 L 07/23/25 15:55 Pulse Ox 96 07/23/25 15:52 O2 Del Method Room Air 07/23/25 15:52 O2 Flow Rate 1 07/21/25 06:00 BMI result Body Mass Index 32.3 Objective Data Active Medications Acetaminophen (Acetaminophen 325 Mg Tablet) 975 mg PO Q6H PRN PRN Reason: Pain, Mild 1-3,fever,headache Allopurinol (Allopurinol 100 Mg Tablet) 50 mg PO DAILY [facility] Last Admin: 07/23/25 08:14 Dose: 50 mg Documented By: NORBERTO Amlodipine Besylate (Amlodipine Besylate 2.5 Mg Tablet) 2.5 mg PO DAILY [facility]; Protocol Last Admin: 07/23/25 08:15 Dose: 2.5 mg Documented By: NORBERTO Apixaban (Apixaban 2.5 Mg Tablet) 2.5 mg PO BID [facility] Last Admin: 07/23/25 08:15 Dose: 2.5 mg Documented By: NORBERTO Aspirin (Aspirin 81 Mg Tab.Chew) 81 mg PO DAILY [facility] Last Admin: 07/23/25 08:15 Dose: 81 mg Documented By: NORBERTO Atorvastatin Calcium (Atorvastatin Calcium 40 Mg Tablet) 40 mg PO BEDTIME [facility] Last Admin: 07/22/25 20:38 Dose: 40 mg Documented By: BOYD Calcium Carbonate (Calcium Carbonate 750 Mg Tab.Chew) 750 mg PO Q4H PRN PRN Reason: Heartburn Dextrose (Dextrose 50 % 25 Gm/50 Ml Syringe) 25 gm IVPUSH Q15M PRN; Protocol PRN Reason: per Hypoglycemia Standing Ord. Diphenhydramine HCl (Diphenhydramine Hcl 12.5 Mg/5 Ml Liquid) 12.5 mg PO BEDTIME PRN PRN Reason: Allergy Symptoms Donepezil HCl (Donepezil Hcl 10 Mg Tablet) 10 mg PO BEDTIME [facility] Last Admin: 07/22/25 20:38 Dose: 10 mg Documented By: BOYD Doxycycline Monohydrate (Doxycycline Monohydrate 100 Mg Capsule) 100 mg PO Q12H [facility] Last Admin: 07/23/25 08:15 Dose: 100 mg Documented By: NORBERTO Finasteride (Finasteride 5 Mg Tablet) 5 mg PO DAILY [facility] Last Admin: 07/23/25 08:16 Dose: 5 mg Documented By: NORBERTO Gabapentin (Gabapentin 400 Mg Capsule) 800 mg PO BID [facility] Last Admin: 07/23/25 08:14 Dose: 800 mg Documented By: NORBERTO Glucose (Glucose Gel 15 Gm Gel..Gram.) 15 gm PO Q15M PRN; Protocol PRN Reason: per Hypoglycemia Standing Ord. Insulin Glargine (Insulin Glargine,Hum.Rec.Anlog 100 Unit/Ml 10 Ml Vial) 15 unit SUBCUT BEDTIME [facility] Last Admin: 07/22/25 22:14 Dose: 15 unit Documented By: BOYD Insulin Human Lispro (Insulin Lispro 100 Unit/Ml 3 Ml Vial) 0 unit SUBCUT QIDACHS [facility]; Protocol Last Admin: 07/23/25 16:43 Dose: 8 unit Documented By: NORBERTO Loratadine (Loratadine 10 Mg Tablet) 10 mg PO DAILY [facility] Last Admin: 07/23/25 08:15 Dose: 10 mg Documented By: NORBERTO Magnesium Hydroxide (Milk Of Magnesia 30 Ml Oral.Susp) 30 ml PO DAILY PRN PRN Reason: Constipation Magnesium Oxide (Magnesium Oxide 400 Mg Tablet) 200 mg PO DAILY [facility] Last Admin: 07/23/25 08:15 Dose: 200 mg Documented By: NORBERTO Melatonin (Melatonin 3 Mg Tablet) 6 mg PO BEDTIME PRN PRN Reason: Insomnia Last Admin: 07/21/25 20:19 Dose: 6 mg Documented By: JOHNIE Memantine (Memantine Hcl 10 Mg Tablet) 10 mg PO BID [facility] Last Admin: 07/23/25 08:15 Dose: 10 mg Documented By: NORBERTO Multivitamins/Vitamin C (Multivitamin Tablet) 1 tab PO DAILY [facility] Last Admin: 07/23/25 08:15 Dose: 1 tab Documented By: NORBERTO Omeprazole (Omeprazole 20 Mg Capsule.Dr) 20 mg PO BID@0630,1630 [facility] Last Admin: 07/23/25 16:44 Dose: 20 mg Documented By: NORBERTO Ondansetron HCl (Ondansetron Hcl 4 Mg/2 Ml Vial) 4 mg IVPUSH Q8H PRN PRN Reason: Nausea and Vomiting Oxycodone HCl (Oxycodone Hcl Immed Release 5 Mg Tablet) 5 mg PO Q6H PRN PRN Reason: Pain, Severe (Pain Scale 7-10) Sodium Chloride (0.9 % Sodium Chloride Flush 3 Ml Syringe) 3 ml IVFLUSH QSHIFT [facility] Last Admin: 07/23/25 16:44 Dose: 3 ml Documented By: NORBERTO Sucralfate (Sucralfate 1 Gm Tablet) 1 gm PO TIDAC [facility] Last Admin: 07/23/25 16:43 Dose: 1 gm Documented By: NORBERTO Tamsulosin HCl (Tamsulosin Hcl 0.4 Mg Capsule) 0.4 mg PO BEDTIME [facility] Last Admin: 07/22/25 20:38 Dose: 0.4 mg Documented By: BOYD Tramadol HCl (Tramadol Hcl 50 Mg Tablet) 50 mg PO Q6H PRN PRN Reason: Pain, Moderate(Pain Scale 4-6) Labs 07/23/25 05:26 07/23/25 05:26 Labs: Laboratory Results - last 24 hr 07/22/25 07/23/25 07/23/25 19:50 05:26 07:25 MCV 80.4 MCH 24.0 L MCHC 29.9 L RDW 18.2 H Plt Count 182 MPV 11.8 Absolute Nucleated RBC 0.000 Nucleated RBC % (auto) 0.0 Anion Gap 15 Estim Creat Clear Calc 35.0 Estimated GFR 32 POC Glucose 297 H 244 H Random Glucose 253 H Calcium 8.5 TSH 1.92 07/23/25 07/23/25 11:25 15:25 MCV MCH MCHC RDW Plt Count MPV Absolute Nucleated RBC Nucleated RBC % (auto) Anion Gap Estim Creat Clear Calc Estimated GFR POC Glucose 333 H 340 H Random Glucose Calcium TSH Assessment and Plan (1) Syncopal episodes: Status: Acute Plan Patient is an 80-year-old male with a past medical history significant for dementia, AFib on Eliquis, HFpEF, BPH, NSTEMI, gout, CAD, CKD 3B and history upper GI bleed, who presented to the ED due to a witnessed syncopal episode. syncopal episode - witnessed syncopal episode, likely syncopal convulsions - head CT negative - no leukocytosis or evidence of infection - CXR with small L pleural effusion; BNP 366 - concern for polypharmacy - orthostatics positive for past two days; improved with morning after gentle IVF; repeat orthostatics tomorrow, hold diuretics - echo showed LVEF 60%, moderately dilated left atrium and mildly dilated right atrium - monitor on tele - cardiology consulted, suggested discontinuing metoprolol - neurology consulted, suggested seizure activity possibly a hypoxic seizure related to cerebral hypoperfusion from a syncopal episode - EEG grossly WNL and negative for epileptiform discharges a fib with slow ventricular response - HR was noted to briefly dip into the 30s with 2.8 second pauses on 07/22; similar episode on 07/23 with 3.2nd pause - reduced metoprolol from 100 mg b.i.d. to 50 mg b.i.d. then to 25 bid. 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 Quality Stroke Does the patient have a stroke diagnosis?: No VTE Prior VTE?: No VTE Risk Level:: Medical - moderate - high VTE Device Contraindication: Treatment Not Indicated VTE Drug Contraindication: N/A - Med Ordered
[2025-07-23 21:06] LABS: Glucose, Whole Blood 444 mg/dL (60-115)
[2025-07-23] MEDS: Insulin Glargine,Hum.rec.anlog 100 UNIT/ML 10 ML VIAL 15 UNIT SUBCUT (21:36)
[2025-07-24] VITALS (9 sets, daily range): BP systolic 98–164; BP diastolic 57–66; PULSE 64–125; RESP 16–20; TEMP 36.2–36.8; O2SAT 94–99
[2025-07-24 03:11] LABS: Glucose, Whole Blood 355 mg/dL (60-115)
[2025-07-24 07:30] LABS: Glucose, Whole Blood 361 mg/dL (60-115)
[2025-07-24] MEDS: 0.9 % Sodium Chloride Flush 3 ML SYRINGE IVFLUSH (07:57)
--- NOTE | 2025-07-24 11:10 | MHC.CM.PN ---
Addendum entered by Pooja Fraga 07/24/25 14:06: [facility] transportation auth received, booking ID# [id number]. Original Note: Second IMM given 07/24. Pt is medically cleared for discharge home with new [facility] services, he will transport home via [facility]. Pts family member Migdalia was called and notified of the discharge.
[2025-07-24 11:36] LABS: Glucose, Whole Blood 385 mg/dL (60-115)
[2025-07-24] MEDS: Insulin Glargine,Hum.rec.anlog 100 UNIT/ML 10 ML VIAL 10 UNIT SUBCUT (11:48)
--- NOTE | 2025-07-24 15:10 | P.DS_ITS ---
DS: Providers Provider Date of Service: 07/24/25 Date of admission: 07/20/25 23:46 Date of discharge: 07/24/25 Primary care physician: Kathy Villafana MD Consults: 07/21/25 00:40 Consult to Cardiology Routine Consulting Provider: [facility] Reason for consultation: syncope Has provider been notified: No Consult to Neurology Routine Consulting Provider: [facility] Reason for consultation: witnessed convulsions Has provider been notified: No 07/21/25 12:25 Consult to Wound Care Routine Reason for consultation: oozing back abrasion DS: Diagnosis Discharge Diagnosis (1) Syncopal episodes: Status: Acute DS: Summary Hospital Course Hospital Course: From admission HPI: Date of Service: 07/20/25 Attending physician on admission: Luis Alfredo Clark Chief Complaint: ?seizure activity Patient is an 80-year-old male with a past medical history significant for dementia, AFib on Eliquis, HFpEF, BPH, NSTEMI, gout, CAD, CKD 3B and history upper GI bleed, who presented to the ED due to a witnessed syncopal episode. Patient was in the restroom and got up from the toilet and had a syncopal episode. The family reported seizure-like activity with some convulsions and eyes rolled back with LOC. No head strike. The patient did not have a postictal period, no bowel or urine incontinence, he does not recall the episode. The pat ient complained of neck pain prior to the syncopal episode. The patient does take multiple medications and has persistent AFib. He is unsure if he is taking his eliquis or any anticoagulants. Hospital course: Pt was initially admitted to the hospital for syncopal episode with concerns for possible seizure-like activity. Infectious workup in the hospital was negative, but pt was noted to have positive orthostatic hypotension. Pt was seen and evaluated by Neurology and underwent an EEG which was negative for seizure disorder; neurology suggested seizure-like activity likely related to hypoxic seizure from cerebral hypoperfusion. Pt was also noted to have an JAMES on CKD, likely secondary to diuretic use. Pt was given gentle IVF hydration and Bumex was stopped. Repeat echo showed pt with recovered LVEF of 60%. Hospital stay also complicated by episodes of AFib with slow ventricular response and 2.2 and 3.2 second pauses on monitoring. Patient's metoprolol was decreased. Syncopal episode likely multifactorial and iatrogenic: In the setting of orthostatic hypotension secondary to diuretic use as well as AFib with slow ventricular response due to beta-gabriela use. Lastly, pt was noted to have a small epidural inclusion cyst abscess on his back which family states repeatedly gets infected. Family report pt already has outpatient appointment scheduled with General surgery for cyst removal. Pt will be discharged home on multiple changes to his medications: Metoprolol will be reduced from 100 mg b.i.d. to 25 mg b.i.d.; Eliquis 5 mg b.i.d. will be reduced to 2.5 mg b.i.d.; and Bumex 1 mg b.i.d. will be stopped and pt will instead take furosemide 40 mg daily. Pt should have close follow-up with Cardiology in 1-2 weeks for monitoring of volume status and response to therapies. Pt will also be discharged on doxycycline 100 mg b.i.d. x4 days. Pt should resume all other home medications. Pt seen and evaluated by PT and will be discharged home with services. Additional details concerning hospital stay as indicated below. syncopal episode - witnessed syncopal episode, likely syncopal convulsions not true seizure - head CT negative - no leukocytosis or evidence of infection - CXR with small L pleural effusion; BNP 366, similar to prior - concern for polypharmacy - orthostatics initally positive x2 days, now negative after gentle IVF - echo showed recovered LVEF of 60%, moderately dilated left atrium and mildly dilated right atrium - cardiology consulted, suggested reducing metoprolol to 25mg bid - neurology consulted, suggested seizure activity possibly a hypoxic seizure related to cerebral hypoperfusion from a syncopal episode - EEG grossly WNL and negative for epileptiform discharges a fib with slow ventricular response - HR was noted to briefly dip into the 30s with 2.8 second pauses on 07/22; similar episode on 07/23 with 3.2nd pause - reduced metoprolol from 100 mg b.i.d. to 50 mg b.i.d. 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 - echo showed LVEF 60%, moderately dilated left atrium and mildly dilated right atrium - CXR with small L pleural effusion, chronic since 05/17/24 - BNP 366 - will d/c Bumex and switch to furosemide 40mg daily; pt will need close cardiology followup after discharge to monitor for volume status Insulin-dependent type 2 diabetes - POCs difficult to control while in hospital - continue Farxiga, home insulin dosing - follow diabetic diet and diabetic snacking BPH - continue tamsulosin gout -continue allopurinol CAD - continue aspirin, atorvastatin Time Attestation Discharge Coordination Time (in mins): 35 Quality: Safe Use of Opioids Does Pt have an Active Cancer Diagnosis on the Problem List?: No Quality: Stroke Does the patient have a stroke diagnosis?: No Physical Exam Exam: Exam: General: AOx2, mildly confused. In no acute distress Resp: CTA bilaterally CVS: Irregularly irregular rhythm GI: +BS, NT, no distention Skin: Warm, dry Back: Area of been lower back covered in clean dressing Neuro: Cranial nerves II-XII grossly intact bilaterally. Motor grossly intact bilaterally Extremities: No edema Psych: Appropriate affect Vital Signs: Vital Signs: Last Vital Signs Temp 98.0 F 07/24/25 11:27 Pulse 64 07/24/25 11:27 Resp 16 07/24/25 11:27 BP 149/66 H 07/24/25 11:27 Pulse Ox 96 07/24/25 11:27 O2 Del Method Room Air 07/24/25 11:27 O2 Flow Rate 1 07/21/25 06:00 BMI result Body Mass Index 32.3 DS: Data Data Completed and Pending Completed studies during hospitalization [Text1]: Procedures Control Bleeding in Gastrointestinal Tract, Via Natural or Artificial Opening Endoscopic (08/17/23) Excision of Right Foot Skin, External Approach (10/07/21) Excision of Stomach, Pylorus, Via Natural or Artificial Opening Endoscopic, Diagnostic (08/17/23) Insertion of Infusion Device into Upper Vein, Percutaneous Approach (11/27/24) Introduction of Mineral-based Topical Hemostatic Agent into Upper GI, Via Natural or Artificial Opening Endoscopic, [employer] 6 (08/17/23) Introduction of Other Therapeutic Substance into Upper GI, Via Natural or Artificial Opening Endoscopic (08/17/23) Transfusion of Nonautologous Frozen Plasma into Peripheral Vein, Percutaneous Approach (08/17/23) Transfusion of Nonautologous Red Blood Cells into Peripheral Vein, Percutaneous Approach (08/17/23) Labs on day of discharge: Laboratory Results - last 24 hr 07/23/25 07/23/25 07/24/25 15:25 21:02 03:07 POC Glucose 340 H 444 H* 355 H* 07/24/25 07/24/25 07:14 11:26 POC Glucose 361 H* 385 H* Discharge Plan Discharge Anticipated Discharge Date/Time: 07/24/25 14:27 Patient Disposition: Home Health Service Discharge Diagnosis: Syncopal episodes Referrals: Corinne HOOKS [Outside] - 1 Week Referral Note: LONG-TERM, HOME PT Kathy Villafana MD [Primary Care Provider, Internal Medicine] - 1 Week Som Salguero MD [Physician, Cardiology] - 1 Week Referral Note: F/U for recent changes to CHF meds: Metoprolol cut from 100 mg b.i.d. to 25 mg b.i.d.; Bumex 1 mg twice a day discontinued and placed on furosemide 40 mg daily Discharge Medications: New Eliquis 2.5 mg tablet 2.5 mg PO BID Qty: 90 0RF Rx Instructions: Take one pill twice a day furosemide [Lasix] 40 mg tablet 40 mg PO DAILY Qty: 90 0RF Rx Instructions: Take one tablet once a day metoprolol tartrate 25 mg tablet 25 mg PO BID Qty: 180 0RF Rx Instructions: Take one tablet twice a day doxycycline monohydrate 100 mg capsule 100 mg PO BID Qty: 9 0RF Rx Instructions: Take one capsule twice a day with food for the next four days. Begin the evening of 07/24 and end the evening of 07/28 Continued finasteride 5 mg tablet 5 mg PO DAILY 90 Days Qty: 90 0RF donepezil 10 mg tablet 10 mg PO BEDTIME CertaVite Senior 0.4-300-250 mg-mcg-mcg tablet 1 tab PO DAILY atorvastatin [Lipitor] 40 mg tablet 40 mg PO BEDTIME Qty: 30 0RF memantine 10 mg tablet 10 mg PO BID allopurinol 100 mg tablet 50 mg PO DAILY (DME) lancets [Lancets,Ultra Thin] Misc See Rx Instructions .Route Qty: 100 0RF Rx Instructions: As directed cetirizine 10 mg tablet 10 mg PO DAILY magnesium oxide 250 mg magnesium tablet 250 mg PO DAILY aspirin 81 mg Tablet,Chewable 81 mg PO DAILY Qty: 60 0RF insulin asp prt-insulin aspart [Novolog Mix 70-30 U-100 Insuln] 100 unit/mL (70-30) solution 76 unit subcut BIDWM Rx Instructions: INJECT 76 UNITS SUBCUTANEOUSLY TWICE DAILY WITH BREAKFAST AND WITH DINNER dapagliflozin propanediol [Farxiga] 5 mg tablet 5 mg PO DAILY amlodipine 2.5 mg tablet 2.5 mg PO DAILY gabapentin 800 mg tablet 800 mg PO BID omeprazole 20 mg capsule,delayed release(DR/EC) 20 mg PO BID@0630,1630 sucralfate 1 gram tablet 1 g PO TIDAC diphenhydramine HCl [Nell-Dryl] 25 mg tablet 12.5 mg PO BEDTIME PRN (Reason: Allergy Symptoms) polyethylene glycol 3350 [Miralax] 17 gram/dose powder 17 g PO DAILY Qty: 119 0RF (DME) insulin syringe-needle U-100 1 mL 31 gauge x 5/16 syringe See Rx Instructions subcut TID Qty: 10 Rx Instructions: As directed tamsulosin [Flomax] 0.4 mg capsule 0.4 mg PO BEDTIME 90 Days Qty: 90 0RF Discontinued Eliquis 5 mg tablet 5 mg PO BID metoprolol tartrate 100 mg tablet 100 mg PO BID bumetanide 1 mg tablet 1 mg PO BID@0800,1200 Protocol: Hold for SBP< HOLD for SBP < : 90 Discharge Orders: Discharge Order (Routine); Ordered 07/24/25 Ordered By: Naida [place] Activity on Discharge: As tolerated Stand Alone Forms: Patient Portal Discharge page Print Language: Yoruba Care Plan Goals: See below Health Concerns: Syncope Generalized weakness/difficulty walking Orthostatic hypotension JAMES on CKD Bradycardia/AFib with slow ventricular response Plan of Treatment: You were admitted to the hospital after witnessed syncopal episode with concerns for possible seizure-like activity. Workup was negative for trauma or infection or seizure disorder; however, you were noted to have positive orthostatics and also experienced slow heart rate with a few episodes of short pauses in between beats. Your Bumex was discontinued and replaced on a lower dose of furosemide. Your metoprolol and Eliquis were also reduced. You were also incidentally found to have an infected cyst on your back and you will be discharged on a short course of antibiotics. -- for epidural inclusion cyst abscess, continue doxycycline 100 mg twice a day with food for the next 4 days, started in the evening of 07/24 and ending on the evening of 07/28. You have already previously scheduled outpatient General surgery appointment for cyst removal. -- your metoprolol has been reduced from 100 mg twice a day to 25 mg twice a day -- stopped taking Bumex 1 mg twice a day. He will instead be prescribed furosemide 40 mg daily -- your Eliquis has been reduced from 5 mg twice a day to 2.5 mg twice a day -- follow up with Dr. Salguero in Cardiology in 1-2 weeks to monitor for changes to your CHF medications -- follow up with your PCP in 1-2 weeks for routine post hospitalization follow up Assessment: See discharge summary
--- NOTE | 2025-07-24 15:31 | P.F2F_ITS ---
Service Date Service Date: 07/24/25 Encounter Date of encounter: 07/24/25 Reasons for Services Signs and symptoms assessed: Confusion, generalized weakness, difficulty ambulating. Hx of syncopal episodes over the past year+ Reason for senior care: medication management Reason for physical therapy: home safety and mobility Homebound: Leaving the home is medically contraindicated at this time without the asist of a device and/or another person due th the listed conditions above and below. Reason homebound: unsteady gait / fall risk, poor balance / fall risk and weakness related to hospital stay Certification: Based on the above findings, I certify that this patient is confined to the home and needs intermittent senior care care, physical therapy and/or speech therapy, or continues to need occupational therapy. The patient is under my care, and I have initiated the establishment of the plan of care. The patient will be followed by a physician who will periodically review the plan of care. Time Spent With Patient Time: Total time managing care of this patient today ____ minutes.
== END 2025-07-24 16:48 | disposition home health service (06) | DRG 312 ==
LOC: HO.ED 22:08 → HO.EDOVER 07-21 01:48 → HO.IMC 07-21 05:12
PROVIDERS: Admitting Provider Physician Assistant; Emergency Provider Emergency Medicine; PCP General Practice; Visit Provider Student in an Organized Health Care Education/Training Program
DX: I95.1 Orthostatic hypotension (principal); I13.0 Hypertensive heart and chronic kidney disease with heart failure and stage 1 through stage 4 chronic kidney disease, or unspecified chronic kidney disease; I50.32 Chronic diastolic (congestive) heart failure; I48.19 Other persistent atrial fibrillation; R56.9 Unspecified convulsions; N18.32 Chronic kidney disease, stage 3b; D63.1 Anemia in chronic kidney disease; G30.9 Alzheimer's disease, unspecified; L72.0 Epidermal cyst; M10.9 Gout, unspecified; I49.5 Sick sinus syndrome; F02.80 Dementia in other diseases classified elsewhere, unspecified severity, without behavioral disturbance, psychotic disturbance, mood disturbance, and anxiety; I25.10 Atherosclerotic heart disease of native coronary artery without angina pectoris; E11.22 Type 2 diabetes mellitus with diabetic chronic kidney disease; N40.0 Benign prostatic hyperplasia without lower urinary tract symptoms; Z79.4 Long term (current) use of insulin; Z79.01 Long term (current) use of anticoagulants; Z79.899 Other long term (current) drug therapy
CPT/HCPCS: 36415; 70450; 71046; 80048; 80053; 82947; 83735; 83880; 84443; 84484; 85025; 85027; 85610; 93005; 93306; 95816; 97162; 99285; J1271; J7120; Q9957

== ENCOUNTER → 2025-07-20 21:50 | Outpatient (BNV) | payer OTHER, SELFPAY | PROVIDERS: Emergency Provider Emergency Medicine; Visit Provider Student in an Organized Health Care Education/Training Program | DX: R55 Syncope and collapse (principal) | CPT/HCPCS: 70450; 71046 ==

== ENCOUNTER 2025-07-20 23:46 | Outpatient (BNV) | payer OTHER, SELFPAY | END 2025-07-21 16:00 | PROVIDERS: Admitting Provider Physician Assistant; Emergency Provider Emergency Medicine; PCP General Practice; Visit Provider Psychiatry & Neurology Neurology | DX: R55 Syncope and collapse (principal) | CPT/HCPCS: 95819 ==

== ENCOUNTER 2025-07-20 23:46 | Outpatient (BNV) | payer OTHER, SELFPAY | END 2025-07-21 07:00 | PROVIDERS: Admitting Provider Physician Assistant; Emergency Provider Emergency Medicine; PCP General Practice; Visit Provider Internal Medicine | DX: I48.91 Unspecified atrial fibrillation (principal); I51.7 Cardiomegaly | CPT/HCPCS: 93306 ==

== ENCOUNTER → 2025-07-20 23:46 | Outpatient (BNV) | payer OTHER, SELFPAY | PROVIDERS: Admitting Provider Physician Assistant; Emergency Provider Emergency Medicine; PCP General Practice; Visit Provider Psychiatry & Neurology Neurology | DX: R56.9 Unspecified convulsions (principal); G30.9 Alzheimer's disease, unspecified; F02.80 Dementia in other diseases classified elsewhere, unspecified severity, without behavioral disturbance, psychotic disturbance, mood disturbance, and anxiety | CPT/HCPCS: 99222 ==

== ENCOUNTER → 2025-07-20 23:46 | Outpatient (BNV) | payer OTHER, SELFPAY | PROVIDERS: Admitting Provider Physician Assistant; Emergency Provider Emergency Medicine; Visit Provider Internal Medicine | DX: R55 Syncope and collapse (principal); I42.9 Cardiomyopathy, unspecified; I48.20 Chronic atrial fibrillation, unspecified | CPT/HCPCS: 93010; 99223; 99233 ==

== ENCOUNTER → 2025-07-20 23:46 | Outpatient (BNV) | payer OTHER, SELFPAY | PROVIDERS: Admitting Provider Physician Assistant; Emergency Provider Emergency Medicine; PCP General Practice; Visit Provider Physician Assistant | DX: R55 Syncope and collapse (principal); I48.91 Unspecified atrial fibrillation; N17.9 Acute kidney failure, unspecified; N18.32 Chronic kidney disease, stage 3b; D64.9 Anemia, unspecified; E66.811 Obesity, class 1 | CPT/HCPCS: 99223; 99233 ==

== ENCOUNTER 2025-07-27 18:45 | Emergency (ER) | payer OTHER, SELFPAY ==
--- NOTE | 2025-07-27 | ECG_ITS ---
Test Reason : FALL Blood Pressure : */* mmHG Vent. Rate : 82 BPM Atrial Rate : * BPM P-R Int : * ms QRS Dur : 86 ms QT Int : 372 ms P-R-T Axes : * 38 -2 degrees QTcB Int : 434 ms Atrial fibrillation with premature ventricular or aberrantly conducted complexes Abnormal ECG When compared with ECG of 20-Jul-2025 19:43, Vent. rate has increased by 29 bpm Referred By: Generic ED Physician Electronically Signed By: Brendon Joaquin
--- NOTE | ~2025-07-27 | CT_ITS ---
CLINICAL HISTORY: trauma CT head without contrast Comparison: CT/REG/SR - CT HEAD/BRAIN WO IV CON - 07/20/25 22:17 EDT Findings: No intra-axial mass, midline shift, hydrocephalus, or acute hemorrhage. Moderate atrophy-like change or white matter disease. There is no sinus or mastoid fluid. The orbits are unremarkable. No skull fracture. IMPRESSION: 1. No acute intracranial findings, specifically no acute intracranial hemorrhage. 2. Moderate atrophy-like change or white matter disease. This document has been electronically signed by: Balaji Lopez MD on 07/27/2025 22:32:16
--- NOTE | ~2025-07-27 | CT_ITS ---
CLINICAL HISTORY: trauma CT cervical spine without contrast Comparison: CT/SR - CT CERVICAL SPINE WO IV CON - 07/02/2025 08:15 PM EDT Findings: Normal vertebral body alignment. Mild multilevel spondylosis with disc space narrowing, endplate sclerosis, osteophytosis and facet arthropathy. No acute fractures or dislocations. No acute findings on limited view of the intracranial contents. Soft tissues of the neck are normal. No consolidation or effusion at the lung apices. IMPRESSION: No evidence of acute fracture or traumatic listhesis of the cervical spine. Mild multilevel spondylosis. This document has been electronically signed by: Balaji Lopez MD on 07/27/2025 22:41:20
[2025-07-27 18:54] VITALS: BP 142/78; PULSE 65; RESP 20; TEMP 37; O2SAT 100; O2SAT 98; BMI 208.9
[2025-07-27 19:07] VITALS: BP 129/58; PULSE 65; RESP 20; TEMP 37; O2SAT 98
--- OUTSIDE RECORDS SUMMARY | 2025-07-27 19:40 | XMS_ITS | Clinical Summary ---
Author Organization [facility] Facility Address [address] [address] Care Team Providers Care Hand Etcher Name Role Phone Kathy Villafana MD Primary Care Provider [phone] Medications pantoprazole (PROTONIX) 40 MG EC tablet [...] patient's age to complete this topic Insurance [facility] ([id number]) KENJI AUGUSTINE [id number] [facility] ([id number]) KENJI AUGUSTINE [id number] Care Teams Hand Etcher Relationship Specialty Start Date End Date Kathy Villafana MD PCP - General Clay Dry Press Operator 10/13/21
--- OUTSIDE RECORDS SUMMARY | 2025-07-27 19:40 | XMS_ITS | Encounter Summary ---
Author Organization [employer] Address [address] [place] [address] [address] [place] [address] Care Team Providers Care German Tutor Name Role Phone Kathy Villafana MD Primary Care Provider [phone] Reason for Visit * Reason Comments Med Refill Encounter Details Date Type Department Care Team (Late Contact Info) Description 08/18/[address] [facility] MEDICINE [address] [place] [address] Kathy Villafana MD [address] [place] [address] Social History Tobacco Use Types Packs/Day Years [...] Care Team (Late st Contact Info) Description 10/06/2025 2:30 PM EST Office Visit [facility] OPTOMETRY [address] [place], [place] [phone] Tarka, Jenise, OD [address] [place] [address] documented as of this encounter Visit Diagnoses Not on filedocumented in this encounter Additional Health Concerns Assessment Noted Time PHQ-9 Depression Total Score: 0 01/22/20 23 3:42 PM EST documented as of this encounter Care Teams German Tutor Relationship Specialty Start Date End Date Kathy Villafana MD [address] [place] [address] PCP - General Family Medicine 08/05/21 [facility] 12/04/24 Cor[facility] A 01/15/25 documented as of this encounter
--- OUTSIDE RECORDS SUMMARY | 2025-07-27 19:40 | XMS_ITS | Encounter Summary ---
Author Organization [employer] Address [address] [place] [address] [address] [place] [address] Care Team Providers Care Aviation Metalsmith Name Role Phone Kathy Villafana MD Primary Care Provider Encounter Details Date Type Department Care Team (Late st Contact Info) Description 01/12/2023 Orders Only [facility] MED & PEDS [address] [place] [address] Mary Ann Skaggs LPN Social History Tobacco [...] Description 10/06/2025 2:30 PM EST Office Visit [facility] OPTOMETRY [address] [place] [address] Jenise Garcia, OD [address] [place] [address] documented as of this encounter Visit Diagnoses Not on filedocumented in this encounter Care Teams Aviation Metalsmith Relationship Specialty Start Date End Date Kathy Villafana MD [address] [place] [address] PCP - General Family Medicine 08/05/21 [facility] documented as of this encounter
--- OUTSIDE RECORDS SUMMARY | 2025-07-27 19:40 | XMS_ITS | Encounter Summary ---
Author Organization [employer] Address [address] [facility] [address] [place] [address] Care Team Providers Care Lehr Loader Name Role Phone Kathy Villafana MD Primary Care Provider Reason for Visit * Reason Onset Date Comments Hospital Follow-up 06/05/2024 Encounter Details Date Type Department Care Team ([facility] st Contact Info) Description 06/05/2024 Telephone [facility] MEDICINE [address] [place], [place] [phone] Kathy Villafana MD [address] [place], [place] [phone] Hospital Follow-up Social History Tobacco Use Types [...] from pt requesting a HDF appt. [place] [facility] [place] of admission: 05/19 Discharge date: 05/21 Diagnosed: Fever and swelling documented in this encounter Plan of Treatment Upcoming Encounters Date Type Department Care Team (Late st Contact Info) Description 10/06/2025 2:30 PM EST Office Visit [facility] OPTOMETRY [address] [place] [address] Jenise Garcia, OD [address] [place] [address] documented as of this encounter Visit Diagnoses Not on filedocumented in this encounter Additional Health Concerns Assessment Noted Time PHQ-9 Depression Total Score: 0 02/20/20 24 2:34 PM EDT documented as of this encounter Care Teams Lehr Loader Relationship Specialty Start Date End Date Kathy Villafana MD [address] [place] [address] PCP - General Family Medicine 08/05/21 [facility] 12/04/24 [facility] 01/15/25 documented as of this encounter
--- OUTSIDE RECORDS SUMMARY | 2025-07-27 19:40 | XMS_ITS | Encounter Summary ---
Author Organization [employer] Address [address] [place] [address] Care Team Providers Care Documentation Coordinator Name Role Phone Kathy Villafana MD Primary Care Provider [phone] Encounter Details Date Type Department Care Team ([facility] st Contact Info) Description 09/18/2023 Abstract [facility] MEDICINE [address] [place], [place] [phone] Kathy Villafana MD [address] [place], [place] [phone] Social History Tobacco Use Types Packs/Day Years [...] Description 10/06/2025 2:30 PM EST Office Visit [facility] OPTOMETRY [address] [place] [address] Jenise Garcia, OD [address] [place] [address] documented as of this encounter Visit Diagnoses Not on filedocumented in this encounter Additional Health Concerns Assessment Noted Time PHQ-9 Depression Total Score: 0 01/22/20 23 3:42 PM EST documented as of this encounter Care Teams Documentation Coordinator Relationship Specialty Start Date End Date Kathy Villafana MD [address] [place] [address] PCP - General Family Medicine 08/05/21 [facility] 12/04/24 [facility] 01/15/25 documented as of this encounter
--- OUTSIDE RECORDS SUMMARY | 2025-07-27 19:40 | XMS_ITS | Encounter Summary ---
Author Organization [employer] Address [address] [place] [address] Care Team Providers Care Hospital Personnel Director Name Role Phone Kathy Villafana MD Primary Care Provider [phone] Encounter Details Date Type Department Care Team (Late st Contact Info) Description 12/20/2023 Abstract [facility] MEDICINE [address] [place], [place] [phone] Kathy Villafana MD [address] [place], [place] [phone] Social History Tobacco Use Types Packs/Day Years [...] 2:30 PM EST Office Visit [facility] OPTOMETRY [address] [place] [address] Jenise Garcia, OD [address] [place] [address] documented as of this encounter Visit Diagnoses Not on filedocumented in this encounter Additional Health Concerns Assessment Noted Time PHQ-9 Depression Total Score: 0 01/22/20 23 3:42 PM EST documented as of this encounter Care Teams Hospital Personnel Director Relationship Specialty Start Date End Date Kathy Villafana MD [address] [place] [address] PCP - General Family Medicine 08/05/21 [facility] 12/04/24 [facility] 01/15/25 documented as of this encounter
--- OUTSIDE RECORDS SUMMARY | 2025-07-27 19:40 | XMS_ITS | Clinical Summary ---
Author Organization [employer] Address [address] [facility] 7[address] [place] [address] Care Team Providers Care Packerhead Machine Operator Name Role Phone Kathy Villafana MD Primary Care Provider [phone] Allergies No known active allergies Medications Blood [...] hyperglycemia, with long-term current use of insulin ([facility]) TEST BLOOD SUGAR THREE TIMES DAILY 100 [...] 5 MG tabletIndications :Atrial fibrillation, unspecified type ([facility]/HCC) TAKE 1 TABLET BY MOUTH TWICE [...] complication, with long-term current use of insulin ([facility]) INJECT 76 UNITS SUBCUTANEOUSLY TWICE DAILY WITH BREAKFAST AND WITH DINNER 50 mL 025 Active FREESTYLE LITE test stripIndications: Type 2 diabetes mellitus with diabetic neuropathy, with long-term current use of insulin ([facility]) TEST BLOOD SUGAR THREE TIMES DAILY 100 [...] Villafana, here for a HDF Admitted to [facility] from 05/17-05/19/2024 Patient presented c/o dizziness and [...] sebaceous cysts on his back, his career manager recently drained one and although there [...] will be referred to PT/OT clinic for [id number] examination, and after evaluation by PT/OT will order a power mobility device. Chronic periodontitis 05/21/2023 Alzheimer's disease 01/22/2023 Assessment & Plan (05/21/2024 10:21 AM EDT): Continue Donepezil 10mg and Memantine 10mg daily Son is ARCHITECTURAL ENGINEER, needs assistance with paperwork for medical power or commonwealth attorney Decided against medical guardianship due to fears he would become responsible for debts of his father Continue day/night cycles Continue gentle redirection during hallucinations Assessment & Plan (06/15/2023 6:06 AM EDT): Continue Donepezil 10mg and Memantine 10mg daily Son is ARCHITECTURAL ENGINEER, needs assistance with paperwork for medical power or commonwealth attorney Decided against medical guardianship due to fears he would become responsible for debts of his father Continue day/night cycles Continue gentle redirection during hallucinations Assessment & Plan (01/25/2023 1:02 PM EST): Continue Donepezil 10mg Son is ARCHITECTURAL ENGINEER and medical power or commonwealth attorney Atrial fibrillation 01/22/2023 Assessment & Plan [...] 4:09 PM EDT): Patient's family requesting a Zanbatostyle ivan meter so he does not have [...] Type Department Care Team Description 07/13/[address] [address] Kathy Villafana MD 07/07/[address] [address] Kathy Villafana MD ER Follow-up 07/03/2025 Orders Only GENERIC EXTERNAL DATA DEPARTMENT Provider, Generic External Data 07/02/2025 Orders Only GENERIC EXTERNAL DATA DEPARTMENT Provider, Generic External Data 06/29/2025 Refill [facility] [address] [place] [address] Kathy Villafana MD 06/22/[address] [address] Kathy Villafana MD Supplies 06/21/2025 Orders Only GENERIC EXTERNAL DATA DEPARTMENT Provider, Generic External Data 05/24/2025 Orders Only GENERIC EXTERNAL DATA DEPARTMENT Provider, Generic External Data 05/23/2025 Orders Only GENERIC EXTERNAL DATA DEPARTMENT Provider, Generic External Data 05/06/2025 3:30 PM EDT Telemedicine [address] [address] Kathy Villafana MD Chronic renal disease, stage [...] 3b CKD (CMS/HCC) 05/06/2025 Travel 04/30/[address] [address] Kathy Villafana MD Nurse Triage 04/28/[address] [address] Kathy Villafana MD Nurse Triage from Last 3 Months Social History Tobacco [...] Description 10/06/2025 2:30 PM EST Office Visit [facility] [address] [place] [address] Radha Jenise, OD [address] [place] [address] Health Maintenance Due Date Last Done Comments [...] - season) 2024 12/21/2021 Diabetes: Hemoglobin A1C 12/23/2024 024, 07/10/2024, 02/20/2024, Additional history exists Depression Screening 02/19/2025 02/20/2024, 02/20/20 Diabetes: Foot Exam 02/19/2025 02/20/2024 Lipid Panel 02/19/2025 02/20/2024, 09/28/2021 SDOH Screening 02/19/2025 02/20/2024 Influenza Vaccine (#1) 2025 Eye Exam 08/29/2025 08/29/2024, 1002/2024, 08/29/2024, Additional history exists Tobacco Screening 05/06/2026 [...] WHOLE BLOOD Routine 05/23/2025 9:04 PM EDT POCT GLYCATED HEMOGLOBIN, TOTAL Routine 09/22/2024 2:39 PM EDT Type 2 diabetes mellitus with diabetic neuropathy, with long-term current use of insulin ([facility]) LIPID PANEL, STANDARD Routine 02/20/2024 3:00 PM EDT Type 2 diabetes mellitus with diabetic neuropathy, with long-term current use of insulin ([facility]) INTRAORAL - COMPLETE SERIES OF RADIOGRAPHIC IMAGES Routine 05/21/2023 2:30 PM EDT PERIODIC ORAL EVALUATION - ESTABLISHED PATIENT Routine 05/21/2023 2:30 PM EDT from Last 3 Months or Most Recently Relevant to Health Maintenance Results * (ABNORMAL) Urinalysis, Complete, with Reflex to Culture (07/03/2025 12:02 AM EDT) Only the most recent of2 resultswithin the time period is included. Color Urine Yellow [facility] Appearance Urine Cloudy [facility] PH 5.5 5.0 - 9.0 [facility] Glucose Urine UA >=1000(A) Negative mg/dL [facility] Urine Blood Trace(A) Negative [facility] Specific [place] - Urine 1.010 1.005 - 1.025 [facility] Urine Protein Trace Neg-Trace mg/dL [facility] Urine Ketones Negative Negative mg/dL [facility] Nitrite Urine Negative Negative [facility] Leukocyte Esterase Urine Large (3+)(A) Negative [facility] RBC Urine 0-2 0 - 2 /HPF [facility] Urine WBC >50(A) 0 - 5 /HPF [facility] Urine Squamous Epithelial Cell 0-2 0 - 2 /HPF [facility] Urine Bacteria 4+ None Seen [facility] Hyaline Casts, Urine 0-2 0 - 2 /LPF [facility] 07/03/2025 12:0 2 AM EDT 07/03/2025 12:10 AM EDT Narrative [facility] - 07/03/2025 12:18 AM EDT [id number], Catheterized Generic External Data Provider LAB URINE ORDERAB LES Final Result Performing Organization Address [facility] Co de Phone Number [facility] [address] [place] [address] [phone] * (ABNORMAL) Urinalysis w/reflex microscopic (07/03/2025 12:02 AM EDT) Color Urine Yellow [facility] Appearance Urine Cloudy [facility] PH 5.5 5.0 - 9.0 [facility] Glucose Urine UA >=1000(A) Negative mg/dL [facility] Urine Blood Trace(A) Negative [facility] Specific [place] - Urine 1.010 1.005 - 1.025 [facility] Urine Protein Trace Neg-Trace mg/dL [facility] Urine Ketones Negative Negative mg/dL [facility] Nitrite Urine Negative Negative [facility] Leukocyte Esterase Urine Large (3+)(A) Negative [facility] 07/03/2025 12:0 2 AM EDT 07/03/2025 12:10 AM EDT Narrative [facility] - 07/03/2025 12:15 AM EDT [id number], Catheterized Generic External Data Provider LAB URINE ORDERAB LES Final Result Performing Organization Address [facility]/ZIP Co de Phone Number [facility] [address] [place] [address] [phone] * Culture, Urine, Routine (07/03/2025 12:00 AM EDT) Only the most recent of2 resultswithin the time period is included. Urine Urine specimen from urinary conduit / Unknown 07/03/2025 07/03/2025 Comment:Urine Cath Narrative [facility] - 07/06/2025 7:22 AM EDT Enterobacter [...] GENERAL ORDERABLES Final Result Performing Organization Address City/State/[facility] Co de Phone Number [facility] [address] [place] [address] [phone] * CT Head w/o Contrast (07/02/2025 10:31 PM EDT) Anatomical Region Laterality Modality Head, Neck Computed Tomogra phy 07/02/2025 10:3 1 PM EDT Narrative 07/02/2025 10:33 PM EDT [place] [address] CT Scan Report Signed Patient: Dayton Oquendo MR#: [id number] : 1945 Acct:[id number] Age/Sex: 80 / M ADM Date: 07/02/25 Loc: .ED Attending Dr: Ordering Physician: Sofi Oneal Date of Service: 07/02/25 Procedure(s): CT head/brain wo IV con Accession Number(s): [id number] cc: Sofi Oneal; Kathy Villafana Report Number: [id number]: Total DLP = 772.04 mGy-cm CLINICAL HISTORY: [...] in OV> 07/02/252231 DD/ 30 TD/TT: 07/02/252230 Master Certified Rv Technician: Procedure Note Donotuseinterpreter, Image - 07/02/[address] [address] [address] Scan Report Signed Patient: Dayton Oquendo AMR#: [id number] : 5Acct:[id number] Age/Sex: 80 / MADM Date: 07/02/25 Loc: HO.ED Attending Dr: Ordering Physician: Sofi Oneal Date of Service: 07/02/25 Procedure(s): CT head/brain wo IV con Accession Number(s): [id number] cc: Sofi Oneal; Kathy Villafana Report Number: [id number]: Total DLP = 772.04 mGy-cm CLINICAL HISTORY: [...] in OV> 07/02/252231 DD/ 30 TD/TT: 07/02/252230 Master Certified Rv Technician: [facility] External Provider IMG CT PROCEDURES Final Result * CT Cervical Spine w/o Contrast (07/02/2025 10:30 PM EDT) Anatomical Region Laterality Modality Spine, C-spine Computed Tomogra phy 07/02/2025 10:3 0 PM EDT Narrative 07/02/2025 10:32 PM EDT [place] [address] CT Scan Report Signed Patient: Dayton Oquendo MR#: [id number] : 1945 Acct:[id number] Age/Sex: 80 / M ADM Date: 07/02/25 Loc: HO.ED Attending Dr: Ordering Physician: Sofi Oneal Date of Service: 07/02/25 Procedure(s): CT cervical spine wo IV con Accession Number(s): [id number] cc: Sofi Oneal; Kathy Villafana Report Number: [id number]: Total DLP = 497.38 mGy-cm CLINICAL HISTORY: [...] in OV> 07/02/252230 DD/ 29 TD/TT: 07/02/252229 Master Certified Rv Technician: Procedure Note Donotuseinterpreter, Image - 07/02/[address] [address] [address] Scan Report Signed Patient: Dayton Oquendo AMR#: [id number] : 5Acct:[id number] Age/Sex: 80 / MADM Date: 07/02/25 Loc: .ED Attending Dr: Ordering Physician: Sofi Oneal Date of Service: 07/02/25 Procedure(s): CT cervical spine wo IV con Accession Number(s): [id number] cc: Sofi Oneal; Kathy Villafana Report Number: [id number]: Total DLP = 497.38 mGy-cm CLINICAL HISTORY: [...] in OV> 07/02/252230 DD/ 29 TD/TT: 07/02/252229 Master Certified Rv Technician: [facility] External Provider IMG CT PROCEDURES Final Result * High Sensitivity Troponin I (07/02/2025 8:00 PM EDT) Only the most recent of2 resultswithin the time period is included. Pathologist [facility] TROPONIN I HIGH SENSITIVITY 6.7 <3.5 - 35.0 ng/L [facility] Comment:The Patel high sens itivity Troponin-I results should beused in conjunction with other diagnostic information suchas ECG, clinical observations and information, and patientsymptoms to aid in the diagnosis of HI. 07/02/2025 8:00 PM EDT 07/02/2025 8:07 PM EDT Generic External Data Provider LAB BLOOD ORDERAB LES Final Result [facility] [address] [place] [phone] * (ABNORMAL) CBC auto differential (07/02/2025 8:00 PM EDT) Only the most recent of3 resultswithin the time period is included. White Blood Count 6.4 4.8 - 10.8 X10*3/uL [facility] Red Blood Count 3.92(L) 4.60 - 5.80 X10*6/uL [facility] Hemoglobin 9.5(L) 14.0 - 18.0 g/dl [facility] Hematocrit 32.3(L) 42.0 - 52.0 % [facility] Mean Corpuscular Volume 82.4 80.0 - 98.0 fL [facility] Mean Corpuscular Hemoglobin 24.2(L) 27.0 - 33.0 pg [facility] Mean Corpuscular HGB Conc 29.4(L) 31.0 - 36.0 g/dl [facility] Red Cell Distribution Width 18.0(H) 11.0 - 16.0 % [facility] Platelet Count 213 160 - 400 X10*3/uL [facility] Mean Platelet Volume 11.1 9.4 - 12.4 fL [facility] Neutrophils Percent Auto 61.6 45 - 73 % [facility] Imm Gran Pct Auto 0.2 0.0 - 0.4 % [facility] Lymphocytes Percent Auto 22.0 20 - 40 % [facility] Monocytes Percent Auto 10.7 2 - 11 % [facility] Eosinophils Percent Auto 4.4(H) 0 - 4 % [facility] Basophils Percent Auto 1.1 0 - 2 % [facility] NRBC Pct Auto 0.0 0.0 - 0.2 /100WBC [facility] Neutrophils Absolute Auto 3.9 2.0 - 8.3 x10*3/uL [facility] Imm Gran Abs Auto 0.01 0.00 - 0.03 X10*3/uL [facility] Lymphocytes Absolute Auto 1.4 1.2 - 4.9 X10*3/uL [facility] Monocytes Absolute Auto 0.7 0.1 - 1.2 X10*3/uL [facility] Eosinophils Absolute Auto 0.3 0.0 - 0.4 X10*3/uL [facility] Basophils Absolute Auto 0.1 0.0 - 0.2 X10*3/uL [facility] NRBC Abs Auto 0.000 0.0 - 0.012 X10*3/uL [facility] 07/02/2025 8:00 PM EDT 07/02/2025 8:07 PM EDT us Generic External Data Provider LAB BLOOD ORDERAB LES Final Result Performing Organization Address City/[facility]/ZIP Co de Phone Number [facility] [address] [place] [phone] * (ABNORMAL) Partial Thromboplastin Time, Activated (APTT) (07/02/2025 8:00 PM EDT) Partial Thromboplastin Time 34.4(H) 26.7 - 34.1 SEC [facility] 07/02/2025 8:00 PM EDT 07/02/2025 8:07 PM EDT Generic External Data Provider LAB BLOOD ORDERAB LES Final Result Performing Organization Address [facility] Co de Phone Number [facility] [address] [place] [phone] * (ABNORMAL) Comprehensive Metabolic Panel (07/02/2025 8:00 PM EDT) Only the most recent of3 resultswithin the time period is included. Sodium 141 135 - 145 mmol/L [facility] Potassium 3.1(L) 3.3 - 5.1 mmol/L [facility] Chloride 98 96 - 108 mmol/L [facility] Carbon Dioxide 31(H) 22 - 29 mmol/L [facility] Anion Gap 15 12 - 20 [facility] Urea Nitrogen (BUN) 32(H) 9 - 16 mg/dL [facility] Creatinine, Serum 2.01(H) 0.5 - 1.4 mg/dL [facility] Creatinine Clr Calc Pharmacy 35.6 [facility] Comment:eGFR (calculated fro m the MDRD study equation) and eCrCl(calculated from the Cockcroft-Gault equation) are based ondifferent parameters and may not yield comparable results.If eCrCl result is absurd, please check patient'sheight/weight. Estimated Glomerular Filt Rate 32 [facility] Comment:Chronic Kidney Disea se: Estimated GFR < 60 mL/min/1.86h2Lfxxkr Kidney Disease: Estimated GFR < 15 mL/min/1.73m2 Glucose 154(H) 60 - 115 mg/dL [facility] Calcium 8.9 8.4 - 10.2 mg/dL [facility] Bilirubin, Total 0.5 0.0 - 1.0 mg/dL [facility] Aspartate Amino Transferase 27 5 - 37 U/L [facility] Alanine Aminotransferase 12 0 - 40 U/L [facility] Total Protein 7.3 6.5 - 8.0 g/dL [facility] Albumin Level 3.7 3.5 - 5.0 g/dL [facility] Alkaline Phosphatase 100 39 - 117 U/L [facility] 07/02/2025 8:00 PM EDT 07/02/2025 8:07 PM EDT Generic External Data Provider LAB BLOOD ORDERAB LES Final Result Performing Organization Address City/[facility] Co de Phone Number [facility] [address] [place] [phone] * (ABNORMAL) Glucose, Whole Blood (06/21/2025 10:11 PM EDT) Only the most recent of12 resultswithin the time period is included. Glucose, Whole Blood 336(H) 60 - 115 mg/dL [facility] Comment:METER #: [id number] 06/21/2025 10:1 1 PM EDT 06/21/2025 10:15 PM EDT Generic External Data Provider LAB BLOOD ORDERAB LES Final Result Performing Organization Address [facility] Co de Phone Number [facility] [address] [place] [phone] * (ABNORMAL) VENOUS BLOOD GAS (05/23/2025 9:23 PM EDT) Pathologist [facility] VBG pH 7.48(H) 7.32 - 7.43 [facility] Comment:METER #: [id number] additional_comment: Cb patlha VBG PCO2 42 mmHg [facility] Comment:METER #: [id number] additional_comment: Cb patlha VBG PO2 48 mmHg [facility] Comment:METER #: [id number] additional_comment: Cb patlha VBG Base Excess 7.4 mmol/L [facility] Comment:METER #: [id number] additional_comment: Cb patlha VBG HCO3 31(H) 22 - 26 mmol/L [facility] Comment:METER #: [id number] additional_comment: Cb patlha O2 Sat, Cas 72.0 % [facility] Comment:METER #: [id number] additional_comment: Cb orallmelanie 05/23/2025 9:23 PM EDT 05/23/2025 9:26 PM EDT us Generic External Data Provider LAB BLOOD ORDERAB LES Final Result Performing Organization Address City/[facility]/ZIP Co de Phone Number [facility] [address] [place] [phone] * Beta-Hydroxybutyrate (05/23/2025 9:19 PM EDT) Beta-Hydroxybut yrate 0.18 0.02 - 0.27 mmol/L [facility] 05/23/2025 9:19 PM EDT 05/23/2025 9:22 PM EDT us Generic External Data Provider LAB BLOOD ORDERAB LES Final Result Performing Organization Address City/[facility]/ZIP Co de Phone Number [facility] [address] [place] [address] [phone] * Magnesium (05/23/2025 9:19 PM EDT) Magnesium 2.3 1.6 - 2.6 mg/dL [facility] 05/23/2025 9:19 PM EDT 05/23/2025 9:22 PM EDT Generic External Data Provider LAB BLOOD ORDERAB LES Final Result Performing Organization Address [facility]/ZIP Co de Phone Number [facility] [address] [place] [address] [phone] * Hold Green Gel (05/23/2025 9:18 PM EDT) Hold Green Gel See Note [facility] Comment:Specimen held untest ed for 24 hours; Call to requestChemistry testing. 05/23/2025 9:18 PM EDT 05/23/2025 9:25 PM EDT Generic External Data Provider HISTORICAL/NON OR DERABLE LABS Final Result Performing Organization Address [facility] Co de Phone Number [facility] [address] [place] [phone] * (ABNORMAL) POCT HGB A1C (09/22/2024 2:39 PM EDT) Pathologist [facility] Hemoglobin A1C 8.8(A) 4.0 - 6.0 % QC Media Lot # [id number] Lot# Expiration Date ,[id number] Blood 09/22/2024 2:39 PM EDT Kathy Villafana MD POINT OF CARE TEST ENTER/EDIT ORDERABLES Final Result * (ABNORMAL) Lipid Panel, Standard (02/20/2024 3:00 PM EDT) Triglycerides 186(H) <150 mg/dL [facility] Comment:Desirable Triglyceri de: less than 150 mg/dLBorderline High Triglyceride 150-199 mg/dLHigh Triglyceride: 200-499 mg/dLVery High Triglyceride: greater than or equal to 5OO mg/dL Cholesterol 159 <200 mg/dL [facility] Comment:Desirable Cholestero l: less than 200 mg/dLBorderline High Cholesterol: 200-239 mg/dLHigh Cholesterol: greater than 239 mg/dL LDL Cholesterol Calculated 78 <100 mg/dL [facility] Comment:Desirable LDL: less than 100 mg/dLNear Optimal/Above Optimal LDL: 110- 129 mg/dLBorderline High LDL: 130-159 mg/dLHigh LDL: 160-189 mg/dLVery High LDL: greater than or equal to 190 mg/dL HDL Cholesterol 44 >40 mg/dL [facility] Comment:Desirable HDL: great er than 40 mg/dL Note: This HDL assay may give artificially low results in patients with liver disease. Blood Venous blood specimen / Unknown 02/20/2024 3:00 PM EDT 02/20/2024 4:04 PM EDT us Kathy Villafana MD LAB BLOOD ORDERABLES Final Res ult [facility] [address] [place] [phone] from Last 3 Months or Most Recently Relevant to Health Maintenance Insurance [facility] [employer] (O D-SNP) KENJI AUGUSTINE [id number] Advance Directives Documents on File Type Date Recorded Patient Drug Abuse Program Coordinator Expl anation Advance Directives and Livin g Will 06/28/2023 Health Care Proxy Care Teams Packerhead Machine Operator Relationship Specialty Start Date End Date Kathy Villafana MD [address] [place] [address] PCP - General Family Medicine 08/05/21 [facility] 12/04/24 [facility] 01/15/25
--- OUTSIDE RECORDS SUMMARY | 2025-07-27 19:40 | XMS_ITS | Encounter Summary ---
Author Organization [employer] Address [address] [facility] [address] [place] [address] Care Team Providers Care Inbound Customer Service Agent Name Role Phone Kathy Villafana MD Primary Care Provider [phone] Encounter Details Date Type Department Care Team ([facility] st Contact Info) Description 09/24/2023 Abstract [facility] [address] [place], [place] [phone] Kathy Villafana MD [address] [place], [place] [phone] Social History Tobacco Use Types Packs/Day Years [...] Description 10/06/2025 2:30 PM EST Office Visit [facility] [address] [place] [address] Jenise Garcia, OD [address] [place] [address] documented as of this encounter Visit Diagnoses Not on filedocumented in this encounter Additional Health Concerns Assessment Noted Time PHQ-9 Depression Total Score: 0 01/22/20 23 3:42 PM EST documented as of this encounter Care Teams Inbound Customer Service Agent Relationship Specialty Start Date End Date Kathy Villafana MD [address] [place] [address] PCP - General Family Medicine 08/05/21 [facility] 12/04/24 [facility] 01/15/25 documented as of this encounter
--- OUTSIDE RECORDS SUMMARY | 2025-07-27 19:40 | XMS_ITS | Encounter Summary ---
Author Organization [employer] Address [address] [facility] [address] [place] [address] Care Team Providers Care Drapery Counselor Name Role Phone Kathy Villafana MD Primary Care Provider Reason for Visit * Reason Onset Date Comments Appointment Request 02/12/2025 Encounter Details Date Type Department Care Team ([facility] st Contact Info) Description 02/12/2025 Telephone [facility] [address] [place], [place] [phone] Kathy Villafana MD [address] [place], [place] [phone] Appointment Request Social History Tobacco Use Types [...] Description 10/06/2025 2:30 PM EST Office Visit [facility] [address] [place] [address] Tarnayeli Jenise, OD [address] [place] [address] documented as of this encounter Visit Diagnoses Not on filedocumented in this encounter Additional Health Concerns Assessment Noted Time PHQ-9 Depression Total Score: 0 02/20/20 24 2:34 PM EDT documented as of this encounter Care Teams Drapery Counselor Relationship Specialty Start Date End Date Kathy Villafana MD [address] [place] [address] PCP - General Family Medicine 08/05/21 [facility] 12/04/24 [facility] 01/15/25 documented as of this encounter
--- OUTSIDE RECORDS SUMMARY | 2025-07-27 19:40 | XMS_ITS | Encounter Summary ---
Author Organization [employer] Address [address] [facility] 7t [place] [address] Care Team Providers Care Filling Machine Set Up Mechanic Name Role Phone Kathy Villafana MD Primary Care Provider [phone] Reason for Visit * Reason Onset Date Comments Hospital Follow-up 12/03/2024 Encounter Details Date Type Department Care Team ([facility] st Contact Info) Description 12/03/2024 Telephone [facility] MEDICINE 230 [place], [place] [phone] Kathy Villafana MD 230 [place], [place] [phone] Hospital Follow-up Social History Tobacco Use Types [...] pt requesting a HDF appt. [place] [facility] admission: 11/25/2024 Discharge date: 12/03/2024 Diagnosed: Heart Attack *Send message to [place] [facility] Care Coordinators documented in this encounter Plan of Treatment Upcoming Encounters Date Type Department Care Team (Late st Contact Info) Description 10/06/2025 2:30 PM EST Office Visit [facility] OPTOMETRY [address] [place] [address] Tarnayeli Jenise, OD [address] [place] [address] documented as of this encounter Visit Diagnoses Not on filedocumented in this encounter Additional Health Concerns Assessment Noted Time PHQ-9 Depression Total Score: 0 02/20/20 24 2:34 PM EDT documented as of this encounter Care Teams Filling Machine Set Up Mechanic Relationship Specialty Start Date End Date Kathy Villafana MD 230 [place] [address] PCP - General Family Medicine 08/05/21 [facility] 12/04/24 [place] [facility] 01/15/25 documented as of this encounter
--- OUTSIDE RECORDS SUMMARY | 2025-07-27 19:40 | XMS_ITS | Encounter Summary ---
Author Organization [employer] Address [address] [facility] [address] 7t [place] [address] Care Team Providers Care Business Technology Analyst Name Role Phone Kathy Villafana MD Primary Care Provider Encounter Details Date Type Department Care Team ([facility] st Contact Info) Description 01/09/2025 Orders Only [facility] MEDICINE 230 [place], [place] [phone] Kathy Villafana MD 230 [place], [place] [phone] Social History Tobacco Use Types Packs/Day Years [...] Description 10/06/2025 2:30 PM EST Office Visit [facility] OPTOMETRY 267 [place], [place] [phone] Jenise Garcia, OD 267 [place] [address] documented as of this encounter Visit Diagnoses Not on filedocumented in this encounter Additional Health Concerns Assessment Noted Time PHQ-9 Depression Total Score: 0 02/20/20 24 2:34 PM EDT documented as of this encounter Care Teams Business Technology Analyst Relationship Specialty Start Date End Date Kathy Villafana MD 230 [place] [address] PCP - General Family Medicine 08/05/21 [facility] 12/04/24 [facility] 01/15/25 documented as of this encounter
--- OUTSIDE RECORDS SUMMARY | 2025-07-27 19:40 | XMS_ITS | Encounter Summary ---
Author Organization [employer] Address [address] [facility] 7t [place] [address] Care Team Providers Care Business Continuity Consultant Name Role Phone Kathy Villafana MD Primary Care Provider [phone] Reason for Visit * Reason Onset Date Comments triage 12/06/2022 Encounter Details Date Type Department Care Team (Late st Contact Info) Description 12/06/2022 Telephone [facility] MEDICINE 230 [place], [place] [phone] Kathy Villafana MD [address] [place], [place] [phone] triage Social History Tobacco Use Types Packs/Day [...] No answer LVM to return call to [facility] triage line. * Telephone Encounter - Abhishek Herman - 12/06/2022 2:25 PM EST Symptom: Constipation Outcome: Schedule an appointment to be seen within 24 hours Reason: No high acuity concerns reported by caller The caller accepted this outcome speaks iranian documented in this encounter Plan of Treatment Upcoming Encounters Date Type Department Care Team (Late st Contact Info) Description 10/06/2025 2:30 PM EST Office Visit [facility] OPTOMETRY [address] [place] [address] Radha Jenise, OD 267 [place] [address] documented as of this encounter Visit Diagnoses Not on filedocumented in this encounter Care Teams Business Continuity Consultant Relationship Specialty Start Date End Date Kathy Villafana MD [address] [place] [address] PCP - General Family Medicine 08/05/21 [facility] 12/04/24 [facility] 01/15/25 documented as of this encounter
--- OUTSIDE RECORDS SUMMARY | 2025-07-27 19:40 | XMS_ITS | Encounter Summary ---
Author Organization [employer] Address [address] [place] [address] 7t [place] [address] Care Team Providers Care Mortgage Advisor Name Role Phone Kathy Villafana MD Primary Care Provider Encounter Details Date Type Department Care Team (Late st Contact Info) Description 12/12/2022 Orders Only [facility] CHC MED & PEDS [address] [place] [address] Mary Ann Skaggs LPN Social History Tobacco [...] Description 10/06/2025 2:30 PM EST Office Visit [facility] OPTOMETRY [address] [place] [address] Jenise Garcia, OD [address] [place] [address] documented as of this encounter Visit Diagnoses Not on filedocumented in this encounter Care Teams Mortgage Advisor Relationship Specialty Start Date End Date Kathy Villafana MD 230 [place] [address] PCP - General Family Medicine 08/05/21 [facility] documented as of this encounter
--- OUTSIDE RECORDS SUMMARY | 2025-07-27 19:40 | XMS_ITS | Encounter Summary ---
Author Organization [employer] Address [address] [facility] 7t [place] [address] Care Team Providers Care Flatwork Ironer Name Role Phone Kathy Villafana MD Primary Care Provider [phone] Encounter Details Date Type Department Care Team (Late Contact Info) Description 05/22/2023 Abstract [facility] ADULT DENTAL [address] [place] [address] Tr Tay, SHERLYN [address] [place], [place] [phone] Social History Tobacco Use Types Packs/Day Years [...] Department Care Team (Late Contact Info) Description 10/06/2025 2:30 PM EST Office Visit [facility] OPTOMETRY 267 [place] [address] Radha Jenise, OD [address] [place] [address] documented as of this encounter Visit Diagnoses Not on filedocumented in this encounter Additional Health Concerns Assessment Noted Time PHQ-9 Depression Total Score: 0 01/22/20 23 3:42 PM EST documented as of this encounter Care Teams Flatwork Ironer Relationship Specialty Start Date End Date Kathy Villafana MD 230 [place] [address] PCP - General Family Medicine 08/05/21 [facility] 12/04/24 [facility] 01/15/25 documented as of this encounter
--- OUTSIDE RECORDS SUMMARY | 2025-07-27 19:40 | XMS_ITS | Encounter Summary ---
Author Organization [employer] Address [address] [place] [address] 7t [place] [address] Care Team Providers Care Steel Worker Name Role Phone Kathy Villafana MD Primary Care Provider Encounter Details Date Type Department Care Team (Late st Contact Info) Description 11/17/2022 Orders Only [facility] CHC MED & PEDS [address] [place] [address] Mray Ann Skaggs LPN Social History Tobacco Use [...] Description 10/06/2025 2:30 PM EST Office Visit [facility] OPTOMETRY [address] [place] [address] Jenise Garcia, OD 267 [place] [address] documented as of this encounter Visit Diagnoses Not on filedocumented in this encounter Care Teams Steel Worker Relationship Specialty Start Date End Date Kathy Villafana MD 230 [place] [address] PCP - General Family Medicine 08/05/21 [facility] 12/04/24 [facility] documented as of this encounter
--- OUTSIDE RECORDS SUMMARY | 2025-07-27 19:40 | XMS_ITS | Encounter Summary ---
Author Organization [employer] Address [address] [facility] [address] 7t [place] [address] Care Team Providers Care Conveyor System Dispatcher Name Role Phone Kathy Villafana MD Primary Care Provider [phone] Encounter Details Date Type Department Care Team ([facility] st Contact Info) Description 11/28/2023 Orders Only [facility] MEDICINE 230 [place], [place] [phone] Kathy Villafana MD 230 [place], [place] [phone] Social History Tobacco Use Types Packs/Day Years [...] Description 10/06/2025 2:30 PM EST Office Visit [facility] OPTOMETRY [address] [place] [address] Jenise Garcia, OD 267 [place] [address] documented as of this encounter Visit Diagnoses Not on filedocumented in this encounter Additional Health Concerns Assessment Noted Time PHQ-9 Depression Total Score: 0 01/22/20 23 3:42 PM EST documented as of this encounter Care Teams Conveyor System Dispatcher Relationship Specialty Start Date End Date Kathy Villafana MD 230 [place] [address] PCP - General Family Medicine 08/05/21 [facility] 12/04/24 [facility] 01/15/25 documented as of this encounter
--- OUTSIDE RECORDS SUMMARY | 2025-07-27 19:40 | XMS_ITS | Encounter Summary ---
Author Organization [employer] Address [address] [facility] 7t [place] [address] Care Team Providers Care Biology Instructor Name Role Phone Kathy Villafana MD Primary Care Provider [phone] Reason for Visit * Reason Onset Date Comments difficulty with extraction 05/23/2023 Encounter Details Date Type Department Care Team (Late st Contact Info) Description 05/23/2023 Telephone [facility] ADULT DENTAL 230 [place], [place] [phone] Tr Tay DDS [address] [place], [place] [phone] difficulty with extraction Social History Tobacco Use [...] 2:30 PM EST Office Visit [facility] OPTOMETRY 267 [place] [address] Jenise Garcia, OD [address] [place] [address] documented as of this encounter Visit Diagnoses Not on filedocumented in this encounter Additional Health Concerns Assessment Noted Time PHQ-9 Depression Total Score: 0 01/22/20 23 3:42 PM EST documented as of this encounter Care Teams Biology Instructor Relationship Specialty Start Date End Date Kathy Villafana MD 230 [place] [address] PCP - General Family Medicine 08/05/21 [facility] 12/04/24 [facility] 01/15/25 documented as of this encounter
--- OUTSIDE RECORDS SUMMARY | 2025-07-27 19:40 | XMS_ITS | Encounter Summary ---
Author Organization [facility] Address [address] [place] [address] Phone Care Team Providers Care Hospice Admitting Clerk Name Role Phone Kathy Villafana MD Primary Care Provider [phone] Reason for Visit * Reason Comments Med Refill Encounter Details Date Type Department Care Team (Late st Contact Info) Description 07/14/2022 Refill [facility] [address] [place] [phone] Salty Kim, DO [address] [place] [address] Social History Tobacco Use Types Packs/Day Years [...] on filedocumented in this encounter Care Teams Hospice Admitting Clerk Relationship Specialty Start Date End Date Kathy Villafana MD PCP - General Credit Support Counselor 10/13/21 documented as of this encounter
--- OUTSIDE RECORDS SUMMARY | 2025-07-27 19:40 | XMS_ITS | Encounter Summary ---
Author Organization [employer] Address [address] [facility] 7t [place] [address] Care Team Providers Care Ornamental Plaster Sticker Name Role Phone Kathy Villafana MD Primary Care Provider [phone] Reason for Visit * Reason Comments Med Refill Encounter Details Date Type Department Care Team (Late Contact Info) Description 12/01/2022 Refill [facility] CHC MED & PEDS 505 [place], [place] [phone] Kathy Villafana MD 230 [place], [place] [phone] Type 2 diabetes mellitus with hyperglycemia, with long-term current use of insulin (CMS/HCC) Social History Tobacco Use Types Packs/Day [...] Description 10/06/2025 2:30 PM EST Office Visit [facility] OPTOMETRY 267 [place], [place] [phone] Jenise Garcia OD [address] [place], [place] [phone] documented as of this encounter Visit Diagnoses Diagnosis Type 2 diabetes mellitus with hyperglycemia, with long-term current use of insulin (CMS/HCC) documented in this encounter Care Teams Ornamental Plaster Sticker Relationship Specialty Start Date End Date Kathy Villafana MD 230 [facility] [place] [address] PCP - General Family Medicine 08/05/21 [facility] 12/04/24 [facility] 01/15/25 documented as of this encounter
--- OUTSIDE RECORDS SUMMARY | 2025-07-27 19:40 | XMS_ITS | Encounter Summary ---
Author Organization [employer] Address [address] [place] [address] 7t [place] [address] Care Team Providers Care Truck Bracer Name Role Phone Kathy Villafana MD Primary Care Provider [phone] Reason for Visit * Reason Comments Med Refill Encounter Details Date Type Department Care Team (Late Contact Info) Description 05/16/2023 Refill [facility] MEDICINE 230 [place] [address] Kathy Villafana MD 230 [place] [address] Social History Tobacco Use Types Packs/Day Years [...] Description 10/06/2025 2:30 PM EST Office Visit [facility] OPTOMETRY 267 [place], [place] [phone] Tarka, Jenise, OD 267 [place] [address] documented as of this encounter Visit Diagnoses Not on filedocumented in this encounter Additional Health Concerns Assessment Noted Time PHQ-9 Depression Total Score: 0 01/22/20 23 3:42 PM EST documented as of this encounter Care Teams Truck Bracer Relationship Specialty Start Date End Date Kathy Villafana MD 230 [place] [address] PCP - General Family Medicine 08/05/21 [facility] 12/04/24 [facility] 01/15/25 documented as of this encounter
--- OUTSIDE RECORDS SUMMARY | 2025-07-27 19:40 | XMS_ITS | Encounter Summary ---
Author Organization [employer] Address [address] [facility] 7t [place] [address] Care Team Providers Care Medical Assembly Name Role Phone Kathy Villafana MD Primary Care Provider [phone] Reason for Visit * Reason Onset Date Comments Hospital Follow-up 01/20/2025 Encounter Details Date Type Department Care Team ([facility] st Contact Info) Description 01/20/2025 Telephone [facility] MEDICINE 230 [place], [place] [phone] Kathy Villafana MD 230 [place], [place] [phone] Hospital Follow-up Social History Tobacco Use Types [...] from pt requesting a HDF appt. Hospital: [facility] Date of admission: 01/08/2025 Discharge date: 01/13/2025 Diagnosed:hypoxic respiratory failure *Send message to [place] Clinical Care Coordinators documented in this encounter Plan of Treatment Upcoming Encounters Date Type Department Care Team (Late st Contact Info) Description 10/06/2025 2:30 PM EST Office Visit [facility] OPTOMETRY [address] [place] [address] Tarka Jenise, OD [address] [place] [address] documented as of this encounter Visit Diagnoses Not on filedocumented in this encounter Additional Health Concerns Assessment Noted Time PHQ-9 Depression Total Score: 0 02/20/20 24 2:34 PM EDT documented as of this encounter Care Teams Medical Assembly Relationship Specialty Start Date End Date Kathy Villaafna MD 230 [place] [address] PCP - General Family Medicine 08/05/21 [facility]04[facility] documented as of this encounter
--- OUTSIDE RECORDS SUMMARY | 2025-07-27 19:40 | XMS_ITS | Encounter Summary ---
Author Organization [employer] Address [address] [facility] [address] 7t [place] [address] Care Team Providers Care Ocular Care Aide Name Role Phone Kathy Villafana MD Primary Care Provider [phone] Encounter Details Date Type Department Care Team ([facility] st Contact Info) Description 02/09/[address] [facility] MEDICINE 230 [place], [place] [phone] Kathy Villafana MD 230 [place], [place] [phone] Social History Tobacco Use Types Packs/Day Years [...] PM EST Office Visit [facility] OPTOMETRY [address] [place], [place] [phone] Jenise Garcia, OD 267 [place] [address] documented as of this encounter Visit Diagnoses Not on filedocumented in this encounter Additional Health Concerns Assessment Noted Time PHQ-9 Depression Total Score: 0 02/20/20 24 2:34 PM EDT documented as of this encounter Care Teams Ocular Care Aide Relationship Specialty Start Date End Date Kathy Villafana MD 230 [place] [address] PCP - General Family Medicine 08/05/21 [facility] 12/04/24 [facility] 01/15/25 documented as of this encounter
--- OUTSIDE RECORDS SUMMARY | 2025-07-27 19:40 | XMS_ITS | Encounter Summary ---
Author Organization [employer] Address [address] [place] [address] 7t [place] [address] Care Team Providers Care Director Of Solutions Architecture Name Role Phone Kathy Villafana MD Primary Care Provider [phone] Reason for Visit * Reason Comments Med Refill Encounter Details Date Type Department Care Team (Late Contact Info) Description 05/24/2023 Refill [facility] MEDICINE 230 [place], [place] [phone] Kathy Villafana MD 230 [place], [place] [phone] Social History Tobacco Use Types Packs/Day Years [...] Description 10/06/2025 2:30 PM EST Office Visit [facility] OPTOMETRY 267 [place] [address] Jenise Garcia, OD [address] [place] [address] documented as of this encounter Visit Diagnoses Not on filedocumented in this encounter Additional Health Concerns Assessment Noted Time PHQ-9 Depression Total Score: 0 01/22/20 23 3:42 PM EST documented as of this encounter Care Teams Director Of Solutions Architecture Relationship Specialty Start Date End Date Kathy Villafana MD [address] [place] [address] PCP - General Family Medicine 08/05/21 [facility] 12/04/24 [facility] 01/15/25 documented as of this encounter
--- OUTSIDE RECORDS SUMMARY | 2025-07-27 19:41 | XMS_ITS | Encounter Summary ---
Author Organization [employer] Address [address] [facility] [address] 7t [place] [address] Care Team Providers Care Senior Business Architect Name Role Phone Ktahy Villafana MD Primary Care Provider [phone] Reason for Visit * Reason Comments Med Refill Encounter Details Date Type Department Care Team (Late st Contact Info) Description 11/28/2023 Refill [facility] MEDICINE 230 [place], [place] [phone] Kathy Villafana MD 230 [place], [place] [phone] Social History Tobacco Use Types Packs/Day Years [...] Description 10/06/2025 2:30 PM EST Office Visit [facility] OPTOMETRY 267 [place] [address] Jenise Garcia, OD 267 [place] [address] documented as of this encounter Visit Diagnoses Not on filedocumented in this encounter Additional Health Concerns Assessment Noted Time PHQ-9 Depression Total Score: 0 01/22/20 23 3:42 PM EST documented as of this encounter Care Teams Senior Business Architect Relationship Specialty Start Date End Date Kathy Villafana MD 230 [place] [address] PCP - General Family Medicine 08/05/21 [facility] 12/04/24 [facility] 01/15/25 documented as of this encounter
--- OUTSIDE RECORDS SUMMARY | 2025-07-27 19:41 | XMS_ITS | Encounter Summary ---
Author Organization [employer] Address [address] [facility] [address] 7t [place] [address] Care Team Providers Care Web Software Engineer Name Role Phone Kathy Villafana MD Primary Care Provider [phone] Reason for Visit * Reason Comments Med Refill Encounter Details Date Type Department Care Team ([facility] st Contact Info) Description 11/18/2023 Refill [facility] MEDICINE 230 [place], [place] [phone] Kathy Villafana MD 230 [place], [place] [phone] Type 2 diabetes mellitus with hyperglycemia, with long-term current use of insulin ([facility]) Social History Tobacco Use Types [...] Description 10/06/2025 2:30 PM EST Office Visit [facility] OPTOMETRY 267 [place], [place] [phone] Jenise Garcia, OD 267 [place] [address] documented as of this encounter Visit Diagnoses Diagnosis Type 2 diabetes mellitus with hyperglycemia, with long-term current use of insulin ([facility]) documented in this encounter Additional Health Concerns Assessment Noted Time PHQ-9 Depression Total Score: 0 01/22/20 23 3:42 PM EST documented as of this encounter Care Teams Web Software Engineer Relationship Specialty Start Date End Date Kathy Villafana MD 230 [place] [address] PCP - General Family Medicine 08/05/21 [facility] 12/04/24 [place] [facility] 01/15/25 documented as of this encounter
--- OUTSIDE RECORDS SUMMARY | 2025-07-27 19:41 | XMS_ITS | Encounter Summary ---
Author Organization [employer] Address [address] [facility] [address] 7t [place] [address] Care Team Providers Care Station Engineer Main Line Name Role Phone Kathy Villafana MD Primary Care Provider [phone] Encounter Details Date Type Department Care Team ([facility] st Contact Info) Description 11/14/2023 Orders Only [facility] MEDICINE 230 [place], [place] [phone] Kathy Villafana MD 230 [place], [place] [phone] Social History Tobacco Use Types Packs/Day Years [...] Description 10/06/2025 2:30 PM EST Office Visit [facility] OPTOMETRY 267 [place] [address] Jenise Garcia, OD 267 [place] [address] documented as of this encounter Visit Diagnoses Not on filedocumented in this encounter Additional Health Concerns Assessment Noted Time PHQ-9 Depression Total Score: 0 01/22/20 23 3:42 PM EST documented as of this encounter Care Teams Station Engineer Main Line Relationship Specialty Start Date End Date Kathy Villafana MD 230 [place] [address] PCP - General Family Medicine 08/05/21 [facility] 12/04/24 [facility] 01/15/25 documented as of this encounter
[2025-07-27 19:43] LABS: Hematocrit 30.1 % (42.0-52.0); Hemoglobin 9.1 g/dl (14.0-18.0); Imm Gran Abs Auto 0.02 X10*3/uL (0.00-0.03); Imm Gran Pct Auto 0.3 % (0.0-0.4); Lymphocytes Absolute Auto 1.2 X10*3/uL (1.2-4.9); MANUAL DIFF FLAG SCAN; Mean Corpuscular HGB Conc 30.2 g/dl (31.0-36.0); Mean Corpuscular Hemoglobin 24.3 pg (27.0-33.0); Mean Corpuscular Volume 80.5 fL (80.0-98.0); NRBC Abs Auto 0.000 X10*3/uL (0.0-0.012); NRBC Pct Auto 0.0 /100WBC (0.0-0.2); PLT CLUMP 1; Red Blood Count 3.74 X10*6/uL (4.60-5.80); SCAN SMEAR FLAG 1
[2025-07-27 19:55] LABS: Alanine Aminotransferase 11 U/L (0-40); Albumin Level 3.6 g/dL (3.5-5.0); Alkaline Phosphatase 101 U/L (39-117); Anion Gap 21 (12-20); Aspartate Amino Transferase 46 U/L (5-37); Blood Urea Nitrogen 37 mg/dL (9-16); Calcium 8.6 mg/dL (8.4-10.2); Carbon Dioxide 20 mmol/L (22-29); Chloride 100 mmol/L (96-108); Creatinine Clr Calc Pharmacy 11.6; Estimated Glomerular Filt Rate 34; Potassium 5.0 mmol/L (3.3-5.1); Sodium 136 mmol/L (135-145); Total Protein 7.6 g/dL (6.5-8.0)
[2025-07-27 20:11] LABS: White Blood Count 6.9 X10*3/uL (4.8-10.8)
--- NOTE | 2025-07-27 22:01 | PC.NURSE ---
Spoke with patient's son utilizing hospital senior sales executive. All questions answered.
[2025-07-27 22:18] VITALS: BP 129/58; PULSE 58; RESP 18; TEMP 36.8; O2SAT 96
--- NOTE | 2025-07-28 00:01 | ED.GENADULT ---
HPI - General Adult General Chief complaint: Fall Stated complaint: mechanical fall, + c-collar, +thinners Time Seen by Provider: 07/27/25 20:01 Source: family and EMS Limitations: other (Dementia) History of Present Illness ED Provider: Gianna Bragg PA-C HPI narrative: 80-year-old male with a history of dementia, known gait instability, insulin-dependent diabetes, hypertension, hyperlipidemia, known coronary artery disease, prior NSTEMI, gout, who presents after unwitnessed fall. Patient lives with the his family, patient was found on the ground it was unwitnessed. Unknown if he lost consciousness or struck his head. There was no obvious sign of head trauma. The patient does use Eliquis. Related Data Home Medications ?Medication ?Instructions ?Recorded ?Confirmed donepezil 10 mg tablet 10 mg PO BEDTIME 09/05/21 07/21/25 ziaqvhdf-oty-rgyma acid 0.4 1 tab PO DAILY 09/05/21 07/21/25 mg-lycopene 300 mcg-lutein 250 mcg tablet (CertaVite Senior) allopurinol 100 mg tablet 50 mg PO DAILY gout pain 10/07/21 07/21/25 insulin syringe-needle U-100 1 mL #10 ea 12/22/21 03/08/25 31 gauge x 16 memantine 10 mg tablet 10 mg PO BID 05/08/22 07/21/25 cetirizine 10 mg tablet 10 mg PO DAILY congestion 08/17/23 07/21/25 omeprazole 20 mg capsule,delayed 20 mg PO BID@0630,1630 05/17/24 07/21/25 release sucralfate 1 gram tablet 1 g PO TIDAC 05/17/24 07/21/25 magnesium oxide 250 mg PO DAILY 11/25/24 07/21/25 insulin aspar prt-insulin aspart 76 unit subcut BIDWM 12/24/24 07/21/25 100 unit/mL (70-30) subcutaneous soln (Novolog Mix 70-30 U-100 Insuln) diphenhydramine HCl 25 mg tablet 12.5 mg PO BEDTIME PRN Allergy 01/08/25 07/21/25 (Nell-Dryl) Symptoms dapagliflozin propanediol 5 mg 5 mg PO DAILY 02/27/25 07/21/25 tablet (Farxiga) amlodipine 2.5 mg tablet 2.5 mg PO DAILY 03/08/25 07/21/25 gabapentin 800 mg tablet 800 mg PO BID 07/21/25 07/21/25 Previous Rx's ?Medication ?Instructions ?Recorded atorvastatin 40 mg tablet (Lipitor) 40 mg PO BEDTIME #30 tabs 09/09/21 lancets (Lancets,Ultra Thin) #100 ea 10/21/21 aspirin 81 mg chewable tablet 81 mg PO DAILY #60 tabs 12/03/24 polyethylene glycol 3350 17 17 g PO DAILY #119 grams 04/26/25 gram/dose oral powder (Miralax) tamsulosin 0.4 mg capsule (Flomax) 0.4 mg PO BEDTIME 90 days #90 caps 05/26/25 finasteride 5 mg tablet 5 mg PO DAILY 90 days #90 tabs 07/07/25 apixaban 2.5 mg tablet (Eliquis) 2.5 mg PO BID #90 tabs 07/24/25 doxycycline monohydrate 100 mg 100 mg PO BID #9 caps 07/24/25 capsule furosemide 40 mg tablet (Lasix) 40 mg PO DAILY #90 tabs 07/24/25 metoprolol tartrate 25 mg tablet 25 mg PO BID #180 tabs 07/24/25 Allergies Allergy/AdvReac Type Severity Reaction Status Date / Time No Known Allergies Allergy Verified 07/27/25 19:03 Review of Systems Review of Systems: Unable to obtain secondary to dementia Yes all other systems are reviewed and are negative PMFSH Past Medical History Attestation statement: The following information was validated with the patient. Medical History (Updated 07/29/25 @ 00:01 by Victor Manuel Stroud) Seizure Alzheimer's dementia Chronic atrial fibrillation CKD stage 3b, GFR 30-44 ml/min CHF exacerbation Diabetes mellitus Acute hypoxic respiratory failure Pneumonia Pneumonia Acute respiratory failure Hypoxia CAD (coronary artery disease) Trash foot Diabetic foot infection Heart failure with preserved ejection fraction HLD (hyperlipidemia) Atrial fibrillation NSTEMI (non-ST elevated myocardial infarction) Kidney failure Diabetes HTN (hypertension) Surgical History No pertinent past surgical history Family History Family History Father No problems noted. Mother No problems noted. Social History Social History Household Members: Family Household Members Other:: sons and daughter in law Housing: House Do you presently have visiting nurse or other home services: Yes Unable to assess alcohol history related to: Unable to respond Alcohol intake: never Patient Tobacco Use Status: Never used Tobacco e-Cigarette/Vaping Use: Never Used Second Hand Smoke Exposure: No Advance Directives Date on File: 09/06/21 service: No Current occupational status: retired Physical Exam ED Vital Signs: Vital Signs - 24 hr 07/27/25 18:54 07/27/25 19:07 07/27/25 22:18 Temperature 98.6 F 98.6 F 98.3 F Pulse Rate 65 65 58 Respiratory Rate 20 20 18 Blood Pressure 129/58 L 129/58 L Pulse Oximetry 98 98 96 Oxygen Delivery Method Room Air Room Air Room Air BMI result Body Mass Index 208.9 Const Other: Alert well-appearing sitting in bed, C-collar in place, , smiling, no sign of head trauma on exam Orientation/consciousness: oriented to person Resp Effort & Inspection: normal respiratory effort Cardio Other: Normal peripheral perfusion Skin Other: Warm dry no rash Neuro Other: Following my commands, he knows who he is, he is able to manipulate all extremities when asked General: oriented to person, no focal motor deficits and CN's II-XI intact bilaterally Extrem Other: Strength 5/5 bilateral upper and lower extremities with resistance, Psych Other: Cooperative Medical Decision Making Medical Decision Making MDM Narrative: 80-year-old male with a history of dementia, known gait instability, insulin-dependent diabetes, hypertension, hyperlipidemia, known coronary artery disease, prior NSTEMI, gout, who presents after unwitnessed fall. Patient lives with the his family, patient was found on the ground it was unwitnessed. Unknown if he lost consciousness or struck his head. There was no obvious sign of head trauma. The patient does use Eliquis. Problem: Dementia, gait instability History: Per patient's family and EMS I have considered the following differential diagnoses: Intracranial hemorrhage, cervical spine injury, fracture, dislocation Plan: The patient is seen frequently emergency department, at times secondary to numerous falls at home. The patient is not a reliable historian, the family is currently not at bedside, we will scan his head and neck. It is reassuring that he is at his baseline mentation, there was no new neurologic deficits, he is not actively vomiting to suggest an intracranial hemorrhage. He is able to move his arms, with a full range, he is able to perform straight leg raise both sides, without eliciting pain, he does not require x-rays. We will screen basic labs in the event that he sustained an acute injury and requires further attention. I have independently reviewed the following tests: Labs: No leukocytosis, stable anemia, no electrolyte abnormality for the patient, creatinine at baseline, CT brain:Findings: No intra-axial mass, midline shift, hydrocephalus, or acute hemorrhage. Moderate atrophy-like change or white matter disease. There is no sinus or mastoid fluid. The orbits are unremarkable. No skull fracture. IMPRESSION: 1. No acute intracranial findings, specifically no acute intracranial hemorrhage. 2. Moderate atrophy-like change or white matter disease. CT cervical spineFindings: Normal vertebral body alignment. Mild multilevel spondylosis with disc space narrowing, endplate sclerosis, osteophytosis and facet arthropathy. No acute fractures or dislocations. No acute findings on limited view of the intracranial contents. Soft tissues of the neck are normal. No consolidation or effusion at the lung apices. IMPRESSION: No evidence of acute fracture or traumatic listhesis of the cervical spine. Mild multilevel spondylosis. Differential Diagnosis Differential Diagnoses: The differential diagnosis associated with the presentation includes See medical decision-making Admission/Observation Consideration of admission/observation: Escalation of care including admission/observation considered Not applicable Lab Data MDM Lab Attestation statement: I reviewed the patient's lab results. 07/27/25 19:33 07/27/25 19:33 Labs: Lab Results 07/27/25 Range/Units 19:33 WBC 6.9 (4.8-10.8) X10*3/uL RBC 3.74 L (4.60-5.80) X10*6/uL Hgb 9.1 L (14.0-18.0) g/dl Hct 30.1 L (42.0-52.0) % MCV 80.5 (80.0-98.0) fL MCH 24.3 L (27.0-33.0) pg MCHC 30.2 L (31.0-36.0) g/dl RDW 19.3 H (11.0-16.0) % Plt Count TNP MPV 10.6 (9.4-12.4) fL Immature Gran % (Auto) 0.3 (0.0-0.4) % Neut % (Auto) 69.4 (45-73) % Lymph % (Auto) 17.2 L (20-40) % [place] % (Auto) 8.6 (2-11) % Eos % (Auto) 3.9 (0-4) % Baso % (Auto) 0.6 (0-2) % Lymph # (Auto) 1.2 (1.2-4.9) X10*3/uL [place] # (Auto) 0.6 (0.1-1.2) X10*3/uL Eos # (Auto) 0.3 (0.0-0.4) X10*3/uL Baso # (Auto) 0.0 (0.0-0.2) X10*3/uL Abs Immat Gran (auto) 0.02 (0.00-0.03) X10*3/uL Absolute Neuts (auto) 4.8 (2.0-8.3) x10*3/uL Absolute Nucleated RBC 0.000 (0.0-0.012) X10*3/uL Nucleated RBC % (auto) 0.0 (0.0-0.2) /100WBC Smear Tech's Comments VERIFIED Sodium 136 (135-145) mmol/L Potassium 5.0 (3.3-5.1) mmol/L Chloride 100 (96-108) mmol/L Carbon Dioxide 20 L (22-29) mmol/L Anion Gap 21 H (12-20) BUN 37 H (9-16) mg/dL Creatinine 1.90 H (0.5-1.4) mg/dL Estim Creat Clear Calc 11.6 Estimated GFR 34 Random Glucose 323 H (60-115) mg/dL Calcium 8.6 (8.4-10.2) mg/dL Total Bilirubin 0.5 (0.0-1.0) mg/dL AST 46 H (5-37) U/L ALT 11 (0-40) U/L Alkaline Phosphatase 101 (39-117) U/L Total Protein 7.6 (6.5-8.0) g/dL Albumin 3.6 (3.5-5.0) g/dL Radiology Impression Discussion of test interpretation with radiology: I have reviewed the radiologist's reading. Discharge Plan Discharge Clinical Impression: Fall at home Patient Disposition: Home, Self-Care Additional Instructions: Imaging of the brain and cervical spine were obtained, everything was normal. You had no lab abnormalities. Follow up with your primary care as needed. Prescriptions: No Action finasteride 5 mg tablet 5 mg PO DAILY 90 Days Qty: 90 0RF donepezil 10 mg tablet 10 mg PO BEDTIME CertaVite Senior 0.4-300-250 mg-mcg-mcg tablet 1 tab PO DAILY atorvastatin [Lipitor] 40 mg tablet 40 mg PO BEDTIME Qty: 30 0RF memantine 10 mg tablet 10 mg PO BID allopurinol 100 mg tablet 50 mg PO DAILY (DME) lancets [Lancets,Ultra Thin] Misc See Rx Instructions .Route Qty: 100 0RF Rx Instructions: As directed cetirizine 10 mg tablet 10 mg PO DAILY magnesium oxide 250 mg magnesium tablet 250 mg PO DAILY aspirin 81 mg Tablet,Chewable 81 mg PO DAILY Qty: 60 0RF insulin asp prt-insulin aspart [Novolog Mix 70-30 U-100 Insuln] 100 unit/mL (70-30) solution 76 unit subcut BIDWM Rx Instructions: INJECT 76 UNITS SUBCUTANEOUSLY TWICE DAILY WITH BREAKFAST AND WITH DINNER dapagliflozin propanediol [Farxiga] 5 mg tablet 5 mg PO DAILY amlodipine 2.5 mg tablet 2.5 mg PO DAILY gabapentin 800 mg tablet 800 mg PO BID Eliquis 2.5 mg tablet 2.5 mg PO BID Qty: 90 0RF Rx Instructions: Take one pill twice a day furosemide [Lasix] 40 mg tablet 40 mg PO DAILY Qty: 90 0RF Rx Instructions: Take one tablet once a day metoprolol tartrate 25 mg tablet 25 mg PO BID Qty: 180 0RF Rx Instructions: Take one tablet twice a day doxycycline monohydrate 100 mg capsule 100 mg PO BID Qty: 9 0RF Rx Instructions: Take one capsule twice a day with food for the next four days. Begin the evening of 07/24 and end the evening of 07/28 omeprazole 20 mg capsule,delayed release(DR/EC) 20 mg PO BID@0630,1630 sucralfate 1 gram tablet 1 g PO TIDAC diphenhydramine HCl [Nell-Dryl] 25 mg tablet 12.5 mg PO BEDTIME PRN (Reason: Allergy Symptoms) polyethylene glycol 3350 [Miralax] 17 gram/dose powder 17 g PO DAILY Qty: 119 0RF (DME) insulin syringe-needle U-100 1 mL 31 gauge x 5/16 syringe See Rx Instructions subcut TID Qty: 10 Rx Instructions: As directed tamsulosin [Flomax] 0.4 mg capsule 0.4 mg PO BEDTIME 90 Days Qty: 90 0RF Interventions: ED Discharge Assessment Last Done: 07/28/25 01:19 Discharge Date/Time: 07/28/25 01:20 Print Language: Bangladeshi
[2025-07-28 01:19] VITALS: BP 129/58; PULSE 58; RESP 18; TEMP 36.8; O2SAT 96
== END 2025-07-28 01:20 | disposition home or self-care (01) ==
PROVIDERS: Emergency Provider Emergency Medicine
DX: R26.89 Other abnormalities of gait and mobility (principal); F03.C0 Unspecified dementia, severe, without behavioral disturbance, psychotic disturbance, mood disturbance, and anxiety; E78.5 Hyperlipidemia, unspecified; I25.10 Atherosclerotic heart disease of native coronary artery without angina pectoris; E11.22 Type 2 diabetes mellitus with diabetic chronic kidney disease; I13.0 Hypertensive heart and chronic kidney disease with heart failure and stage 1 through stage 4 chronic kidney disease, or unspecified chronic kidney disease; N18.9 Chronic kidney disease, unspecified; I50.9 Heart failure, unspecified; Z79.4 Long term (current) use of insulin; Z79.899 Other long term (current) drug therapy; Z91.81 History of falling
CPT/HCPCS: 36415; 70450; 72125; 80053; 85025; 93005; 99284

== ENCOUNTER → 2025-07-27 19:07 | Outpatient (BNV) | payer OTHER, SELFPAY | PROVIDERS: Emergency Provider Emergency Medicine; Visit Provider Internal Medicine Cardiovascular Disease | DX: I48.91 Unspecified atrial fibrillation (principal); I49.3 Ventricular premature depolarization | CPT/HCPCS: 93010 ==

== ENCOUNTER → 2025-07-27 20:01 | Outpatient (BNV) | payer OTHER, SELFPAY | PROVIDERS: Emergency Provider Emergency Medicine; Visit Provider Student in an Organized Health Care Education/Training Program | DX: Z04.3 Encounter for examination and observation following other accident (principal) | CPT/HCPCS: 70450; 72125 ==

== ENCOUNTER 2025-08-12 13:05 | Outpatient (AMB) | payer OTHER, SELFPAY ==
--- NOTE | 2025-08-12 13:10 | MHC.OFFVIS ---
Vital Signs 08/12/25 13:21 BP 108/62 Blood Pressure Location Rt brachial Position Sitting Pulse 72 Intake Visit Reasons: infected sebaceous cyst Intake Note: Patient seen at [facility] ED for infected abscess on back. Here for evaluation of cyst on back. Reports doxycycline 100mg BID for 4d course completed. Patient c/o: inflammation, redness, oozing, bleeding. Son reports this lesion was treated many years ago in [place] but grew back. 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 He has had this for about 3 months. His daughter says that an I&D was previously done in the ED which did not really resolve the problem He continues to have this chronic induration with drainage. The patient has dementia so does not really offer anything with regards to history. He is on a wheelchair and does not have significant verbal output. [facility] Medical History (Updated 08/12/25 @ 13:46 by Rick Uriarte MD) Abscess of back Cardiomyopathy Class 1 obesity Chronic anemia CHF (congestive heart failure) Alzheimer's dementia Chronic atrial fibrillation CKD stage 3b, GFR 30-44 ml/min CHF exacerbation Diabetes mellitus Acute hypoxic respiratory failure Pneumonia Pneumonia Acute respiratory failure Hypoxia CAD (coronary artery disease) Trash foot Diabetic foot infection Heart failure with preserved ejection fraction HLD (hyperlipidemia) Atrial fibrillation NSTEMI (non-ST elevated myocardial infarction) Kidney failure Diabetes HTN (hypertension) Surgical History Status post laser cataract surgery of both eyes No pertinent past surgical history Family History Father No problems noted. Mother No problems noted. Social History Household Members: Family Household Members Other:: sons and daughter in law Housing: House Do you presently have visiting nurse or other home services: Yes Unable to assess alcohol history related to: Unable to respond Alcohol intake: never Patient Tobacco Use Status: Never used Tobacco e-Cigarette/Vaping Use: Never Used Second Hand Smoke Exposure: No Advance Directives Date on File: 09/06/21 service: No Current occupational status: retired Review of Systems Const Details: According to daughter and son Denies chills and Denies fever(s) Card Denies dyspnea Resp Denies dyspnea GI Denies abdominal pain Neuro Details: significant dementia Physical Exam Vital Signs: Last Vital Signs Pulse 72 08/12/25 13:21 BP 108/62 08/12/25 13:21 Const Other: on wheelchair, not verbally communicative awake General: comfortable and no acute distress Resp Effort & Inspection: normal respiratory effort Cardio Rate: regular rate GI Other: protuberant but soft Back/Spine/Pelvis Other: fluctuant area, with the redness, about 3 cm in diameter incision with an abscess from a chronically infected epidermal cyst Office Procedures Procedure Thyroid Biopsy Procedural Documentation: Procedure: Sharp excisional debridement and I and D of a chronically infected epidermal cyst of the back The patient was in lateral decubitus position. The area of the cyst was prepped and draped. Lidocaine 1% was used as a field block. I made a generous cruciate incision on the skin overlying this abscess. This was done with a blade 11. This carried down through the full-thickness of the skin And subcutaneous tissue and the abscess cavity was entered. Note of a lot of hypergranulation tissue within the abscess cavity. I did sharp excisional debridement of all these diseased skin and subcutaneous tissue. I left the wound open and I applied dressings He tolerated procedure well. There were no immediate complications. Assessment & Plan Assessment & Plan (1) Abscess of back: Code(s): L02.212 - Cutaneous abscess of back [any part, except buttock] Category: Medical Plan: This is likely secondary to a chronically infected epidermal cyst. I explained to the family that it is best to do another I&D and debridement in the office. I explained the technique under local anesthesia. I reviewed the risks, benefits, and alternatives and They had given verbal consent. I&D and sharp excisional debridement was done in the office. He tolerated procedure well. The family was given wound care instructions. I will see him again for a wound check next week. He can take Tylenol p.r.n. for pain. Coding Level of Care Code New Pt Level 3 (29835) Diagnoses Abscess of back L02.212
[2025-08-12 13:21] VITALS: BP 108/62; PULSE 72
--- OUTSIDE RECORDS SUMMARY | 2025-08-12 16:38 | XMS_ITS | Encounter Summary ---
Author Organization [employer] Address [address] [facility] 7t [place] [address] Care Team Providers Care Cold Roller Name Role Phone Kathy Villafana MD Primary Care Provider [phone] Encounter Details Date Type Department Care Team (Late st Contact Info) Description 01/12/2023 Orders Only [facility] CHC MED & PEDS [address] [place], [place] [phone] Mary Ann Skaggs LPN Social History Tobacco [...] Care Team (Late st Contact Info) Description 08/19/2025 10:30 AM EDT Office Visit [facility] MEDICINE [address] [place] [address] Kathy Villafana MD [address] [place] [address] 08/31/2025 1:30 PM EDT Office Visit [facility] ADULT DENTAL [address] [place] [address] Julieth Torres 10/06/2025 2:30 PM EST Office Visit [facility] OPTOMETRY [address] [place] [address] Jenise Garcia OD [address] [place] [address] documented as of this encounter Visit Diagnoses Not on filedocumented in this encounter Care Teams Cold Roller Relationship Specialty Start Date End Date Kathy Villafana MD [address] [place] [address] PCP - General Family Medicine 08/05/21 [facility] 12/04/24 Corinne Kelvin 01/15/25 documented as of this encounter
--- OUTSIDE RECORDS SUMMARY | 2025-08-12 16:38 | XMS_ITS | Encounter Summary ---
Author Organization [employer] Address [address] [facility] 7[address] [place] [address] Care Team Providers Care Orchestra Teacher Name Role Phone Kathy Villafana MD Primary Care Provider [phone] Reason for Visit * Reason Onset Date Comments Appointment Request 02/12/2025 Encounter Details Date Type Department Care Team ([facility] st Contact Info) Description 02/12/2025 Telephone [facility] MEDICINE [address] [place], [place] [phone] Kathy Villafana MD [address] [place], [place] [phone] Appointment Request Social History Tobacco Use Types [...] Description 08/19/2025 10:30 AM EDT Office Visit [facility] MEDICINE [address] [place] [address] Kathy Villafana MD [address] [place] [address] 08/31/2025 1:30 PM EDT Office Visit [facility] ADULT DENTAL [address] [place] [address] Julieth Torres 10/06/2025 2:30 PM EST Office Visit [facility] OPTOMETRY [address] [place], [place] [phone] Jenise Garcia OD [address] [place] [address] documented as of this encounter Visit Diagnoses Not on filedocumented in this encounter Additional Health Concerns Assessment Noted Time PHQ-9 Depression Total Score: 0 02/20/20 24 2:34 PM EDT documented as of this encounter Care Teams Orchestra Teacher Relationship Specialty Start Date End Date Kathy Villafana MD [address] [place] [address] PCP - General Family Medicine 08/05/21 [facility] 12/04/24 Corinne A 01/15/25 documented as of this encounter
--- OUTSIDE RECORDS SUMMARY | 2025-08-12 16:38 | XMS_ITS | Encounter Summary ---
Author Organization [employer] Address [address] [facility] 7[address] [place] [address] Care Team Providers Care Chinchilla Machine Operator Name Role Phone Kathy Villafana MD Primary Care Provider [phone] Encounter Details Date Type Department Care Team (Late Contact Info) Description 05/22/2023 Abstract [facility] ADULT DENTAL [address] [place], [place] [phone] Tr Tay DDS [address] [place], [place] [phone] Social History Tobacco Use Types Packs/Day Years [...] Department Care Team (Late Contact Info) Description 08/19/2025 10:30 AM EDT Office Visit [facility] MEDICINE [address] [place], [place] [phone] Kathy Villafana MD [address] [place] [address] 08/31/2025 1:30 PM EDT Office Visit [facility] ADULT DENTAL [address] [place] [address] Julieth Torres 10/06/2025 2:30 PM EST Office Visit [facility] OPTOMETRY [address] [place], [place] [phone] Jenise Garcia, OD [address] [place] [address] documented as of this encounter Visit Diagnoses Not on filedocumented in this encounter Additional Health Concerns Assessment Noted Time PHQ-9 Depression Total Score: 0 01/22/20 23 3:42 PM EST documented as of this encounter Care Teams Chinchilla Machine Operator Relationship Specialty Start Date End Date Kathy Villafana MD [address] [place] [address] [phone] PCP - General Family Medicine 08/05/21 [facility] 12/04/24 Corinne [facility] 01/15/25 documented as of this encounter
--- OUTSIDE RECORDS SUMMARY | 2025-08-12 16:38 | XMS_ITS | Encounter Summary ---
Author Organization [employer] Address [address] [place] [address] 7[address] [place] [address] Care Team Providers Care Hose Operator Name Role Phone Kathy Villafana MD Primary Care Provider [phone] Reason for Visit * Reason Comments Med Refill Encounter Details Date Type Department Care Team (Late Contact Info) Description 05/16/2023 Refill [facility] MEDICINE [address] [place] [phone] Kathy Villafana MD [address] [place] [address] [phone] Social History Tobacco Use Types Packs/Day Years [...] 10:30 AM EDT Office Visit [facility] MEDICINE [address] [place] [phone] Kathy Villafana MD [address] [place] [phone] 08/31/2025 1:30 PM EDT Office Visit [facility] ADULT DENTAL [address] [place] [address] Julieth Torres 10/06/2025 2:30 PM EST Office Visit [facility] OPTOMETRY [address] [place] [address] Jenise Garcia, OD [address] [place] [address] documented as of this encounter Visit Diagnoses Not on filedocumented in this encounter Additional Health Concerns Assessment Noted Time PHQ-9 Depression Total Score: 0 01/22/20 23 3:42 PM EST documented as of this encounter Care Teams Hose Operator Relationship Specialty Start Date End Date Kathy Villafana MD [address] [place] [address] PCP - General Family Medicine 08/05/21 [facility] 12/04/24 [place] [facility] 01/15/25 documented as of this encounter
--- OUTSIDE RECORDS SUMMARY | 2025-08-12 16:39 | XMS_ITS | Encounter Summary ---
Author Organization [employer] Address [address] [facility] [address] [place] [address] Care Team Providers Care Aoc Plans Intelligence Officer Chief Name Role Phone Kathy Villafana MD Primary Care Provider [phone] Encounter Details Date Type Department Care Team ([facility] st Contact Info) Description 02/09/2025 Telephone [facility] MEDICINE [address] [place], [place] [phone] Kathy Villafana MD [address] [place], [place] [phone] Social History Tobacco Use Types Packs/Day Years [...] Description 08/19/2025 10:30 AM EDT Office Visit [facility] MEDICINE [address] [place] [address] Kathy Villafana MD [address] [place] [address] 08/31/2025 1:30 PM EDT Office Visit [facility] ADULT DENTAL [address] [place] [address] Julieth Torres 10/06/2025 2:30 PM EST Office Visit [facility] OPTOMETRY [address] [place] [address] TarJenise tyler, OD [address] [place] [address] documented as of this encounter Visit Diagnoses Not on filedocumented in this encounter Additional Health Concerns Assessment Noted Time PHQ-9 Depression Total Score: 0 02/20/20 24 2:34 PM EDT documented as of this encounter Care Teams Aoc Plans Intelligence Officer Chief Relationship Specialty Start Date End Date Kathy Villafana MD [address] [place] [address] PCP - General Family Medicine 08/05/21 [facility] 12/04/24 Corinne [facility] 01/15/25 documented as of this encounter
--- OUTSIDE RECORDS SUMMARY | 2025-08-12 16:39 | XMS_ITS | Encounter Summary ---
Author Organization [employer] Address [address] [facility] [address]t [place] [address] Care Team Providers Care Systems Auditor Name Role Phone Kathy Villafana MD Primary Care Provider [phone] Reason for Visit * Reason Onset Date Comments Hospital Follow-up 08/03/2025 Encounter Details Date Type Department Care Team ([facility] st Contact Info) Description 08/03/2025 Telephone [facility] MEDICINE [address] [place], [place] [phone] Kathy Villafana MD [address] [place], [place] [phone] Hospital Follow-up Social History Tobacco Use Types [...] encounter Miscellaneous Notes * Telephone Encounter - Carlo Amador - 08/03/2025 11:22 AM EDT Tc from pt requesting a HDF appt. Hospital: [facility] Date of admission: 07/20/2025 Discharge date: 07/24/2025 Diagnosed: Fall *Send message to [place] Clinical Care Coordinators Contact son at [phone] (upper sorbian) documented in this encounter Plan of Treatment Upcoming Encounters Date Type Department Care Team (Late st Contact Info) Description 08/19/2025 10:30 AM EDT Office Visit [facility] MEDICINE [address] [place] [address] Kathy Villafana MD [address] [place] [address] 08/31/2025 1:30 PM EDT Office Visit [facility] ADULT DENTAL [address] [place] [address] Julieth Torres 10/06/2025 2:30 PM EST Office Visit [facility] OPTOMETRY [address] [place] [address] Jenise Garcia OD [address] [place] [address] documented as of this encounter Visit Diagnoses Not on filedocumented in this encounter Additional Health Concerns Assessment Noted Time PHQ-9 Depression Total Score: 0 02/20/20 24 2:34 PM EDT documented as of this encounter Care Teams Systems Auditor Relationship Specialty Start Date End Date Kathy Villafana MD [address] [place] [address] PCP - General Family Medicine 08/05/21 [facility] 12/04/24 Corinne [facility] 01/15/25 documented as of this encounter
--- OUTSIDE RECORDS SUMMARY | 2025-08-12 16:39 | XMS_ITS | Encounter Summary ---
Author Organization [employer] Address [address] [facility] [address] [place] [address] Care Team Providers Care Manager Payment Name Role Phone Kathy Villafana MD Primary Care Provider [phone] Reason for Visit * Reason Onset Date Comments difficulty with extraction 05/23/2023 Encounter Details Date Type Department Care Team (Late st Contact Info) Description 05/23/2023 Telephone [facility] ADULT DENTAL [address] [place], [place] [phone] Tr Tay DDS [address] [place], [place] [phone] difficulty with extraction Social History Tobacco Use [...] time. No room on PAR end. Can hotel front office manager help with scheduling . * Telephone Encounter [...] for patient to be seen today. Called hotel front office manager. Recommended to contact you for insight documented in this encounter Plan of Treatment Upcoming Encounters Date Type Department Care Team (Late st Contact Info) Description 08/19/2025 10:30 AM EDT Office Visit [facility] MEDICINE [address] [place] [address] Kathy Villafana MD [address] [place] [address] 08/31/2025 1:30 PM EDT Office Visit [facility] ADULT DENTAL [address] [place] [address] Julieth Torres 10/06/2025 2:30 PM EST Office Visit [facility] OPTOMETRY [address] [place] [address] Jenise Garcia OD [address] [place] [address] documented as of this encounter Visit Diagnoses Not on filedocumented in this encounter Additional Health Concerns Assessment Noted Time PHQ-9 Depression Total Score: 0 01/22/20 23 3:42 PM EST documented as of this encounter Care Teams Manager Payment Relationship Specialty Start Date End Date Kathy Villafana MD [address] [place] [phone] PCP - General Family Medicine 08/05/21 [facility] 12/04/24 Corinne HOOKS 01/15/25 documented as of this encounter
--- OUTSIDE RECORDS SUMMARY | 2025-08-12 16:39 | XMS_ITS | Encounter Summary ---
Author Organization [employer] Address [address] [facility] [address] [place] [address] Care Team Providers Care Seasonal Warehouse Associate Name Role Phone Kathy Villafana MD Primary Care Provider [phone] Encounter Details Date Type Department Care Team ([facility] st Contact Info) Description 01/09/[address] [facility] MEDICINE [address] [place], [place] [phone] Kathy Villafana MD [address] [place], [place] [phone] Social History Tobacco Use Types Packs/Day Years [...] Description 08/19/2025 10:30 AM EDT Office Visit [facility] MEDICINE [address] [place] [address] Katyh Villafana MD [address] [place] [address] 08/31/2025 1:30 PM EDT Office Visit [facility] ADULT DENTAL [address] [place] [address] Julieth Torres 10/06/2025 2:30 PM EST Office Visit [facility] OPTOMETRY [address] [place] [address] TarkaJenise, OD [address] [place] [address] documented as of this encounter Visit Diagnoses Not on filedocumented in this encounter Additional Health Concerns Assessment Noted Time PHQ-9 Depression Total Score: 0 02/20/20 24 2:34 PM EDT documented as of this encounter Care Teams Seasonal Warehouse Associate Relationship Specialty Start Date End Date Kathy Villafana MD [address] [place] [address] PCP - General Family Medicine 08/05/21 [facility] 12/04/24 Corinne [facility] 01/15/25 documented as of this encounter
--- OUTSIDE RECORDS SUMMARY | 2025-08-12 16:39 | XMS_ITS | Encounter Summary ---
Author Organization [employer] Address [address] [facility] 7[address] [place] [address] Care Team Providers Care Sales Operations Name Role Phone Kathy Villafana MD Primary Care Provider [phone] Reason for Visit * Reason Onset Date Comments triage 12/06/2022 Encounter Details Date Type Department Care Team (Late st Contact Info) Description 12/06/2022 Telephone [facility] MEDICINE [address] [place], [place] [phone] Kathy Villafana MD [address] [place], [place] [phone] triage Social History Tobacco Use Types Packs/Day [...] No answer LVM to return call to [facility] triage line. * Telephone Encounter - Abhishek Herman - 12/06/2022 2:25 PM EST Symptom: Constipation Outcome: Schedule an appointment to be seen within 24 hours Reason: No high acuity concerns reported by caller The caller accepted this outcome speaks sri lankan documented in this encounter Plan of Treatment Upcoming Encounters Date Type Department Care Team (Late st Contact Info) Description 08/19/2025 10:30 AM EDT Office Visit [facility] MEDICINE [address] [place] [address] Kathy Villafana MD [address] [place] [address] 08/31/2025 1:30 PM EDT Office Visit [facility] ADULT DENTAL [address] [place] [address] Julieth Torres 10/06/2025 2:30 PM EST Office Visit [facility] OPTOMETRY [address] [place], [place] [phone] Jenise Garcia, OD [address] [place] [address] documented as of this encounter Visit Diagnoses Not on filedocumented in this encounter Care Teams Sales Operations Relationship Specialty Start Date End Date Kathy Villafana MD [address] [place], [place] [phone] PCP - General Family Medicine 08/05/21 [facility] 12/04/24 Corinne [facility] 01/15/25 documented as of this encounter
--- OUTSIDE RECORDS SUMMARY | 2025-08-12 16:39 | XMS_ITS | Encounter Summary ---
Author Organization [employer] Address [address] [facility] 7[address] [place] [address] Care Team Providers Care Grinder Setup Operator Name Role Phone Kathy Villafana MD Primary Care Provider [phone] Encounter Details Date Type Department Care Team (Late st Contact Info) Description 12/12/2022 Orders Only [facility] CHC MED & PEDS [address] [place], [place] [phone] Mary Ann Skaggs LPN Social History Tobacco [...] Description 08/19/2025 10:30 AM EDT Office Visit [facility] MEDICINE [address] [place] [address] Kathy Villafana MD [address] [place] [address] 08/31/2025 1:30 PM EDT Office Visit [facility] ADULT DENTAL [address] [place] [address] Julieth Torres 10/06/2025 2:30 PM EST Office Visit [facility] OPTOMETRY [address] [place] [address] Jenise Garcia OD [address] [place] [address] documented as of this encounter Visit Diagnoses Not on filedocumented in this encounter Care Teams Grinder Setup Operator Relationship Specialty Start Date End Date Kathy Villafana MD [address] [place] [address] PCP - General Family Medicine 08/05/21 [facility] 12/04/24 Corinne Kelvin 01/15/25 documented as of this encounter
--- OUTSIDE RECORDS SUMMARY | 2025-08-12 16:39 | XMS_ITS | Encounter Summary ---
Author Organization [employer] Address [address] [facility] 7[address] [place] [address] Care Team Providers Care Licensed Marine Engineer Name Role Phone Kathy Villafana MD Primary Care Provider [phone] Encounter Details Date Type Department Care Team (Late st Contact Info) Description 11/17/2022 Orders Only [facility] CHC MED & PEDS [address] [place], [place] [phone] Mary Ann Skaggs LPN Social History Tobacco [...] Description 08/19/2025 10:30 AM EDT Office Visit [facility] MEDICINE [address] [place] [address] Kathy Villafana MD [address] [place] [address] 08/31/2025 1:30 PM EDT Office Visit [facility] ADULT DENTAL [address] [place] [address] Julieth Torres 10/06/2025 2:30 PM EST Office Visit [facility] OPTOMETRY [address] [place] [address] Jenise Garcia OD [address] [place] [address] documented as of this encounter Visit Diagnoses Not on filedocumented in this encounter Care Teams Licensed Marine Engineer Relationship Specialty Start Date End Date Kathy Villafana MD [address] [place] [address] PCP - General Family Medicine 08/05/21 [facility] 12/04/24 Corinne Kelvin 01/15/25 documented as of this encounter
--- OUTSIDE RECORDS SUMMARY | 2025-08-12 16:39 | XMS_ITS | Clinical Summary ---
Author Organization [employer] Address [address] [facility] [address] [place] [address] Care Team Providers Care Clockmaker Apprentice Name Role Phone Kathy Villafana MD Primary Care Provider Allergies No known active allergies Medications Blood [...] DAYS 023 Active Diclofenac Sodium 1 % gelIndications:C hronic [...] 11/20/2 024 Active atorvastatin (Lipitor) 40 MG tabletIndication s:Other hyperlipidemia TAKE 1 TABLET BY MOUTH AT BEDTIME 90 tablet 3 Active isosorbide mononitrate ER (Imdur) 60 MG 24 hr tablet Take 1 tablet (60 mg) by mouth Once per day. 30 tablet Active TRUEplus Lancets 33G miscIndications: Type 2 diabetes mellitus with hyperglycemia, with long-term current use of insulin ([facility]) TEST BLOOD SUGAR THREE [...] AND AT BEDTIME 30 g 1 Active ketoconazole (NIZOral) 2 % shampoo APPLY TOPICALLY TO SCALP AND ALREDEDOR DE L[place] OREJAS THEN RINSE TWICE A WEEK 120 mL Active white petrolatum gel APPLY TOPICALLY TO THE AFFECTED AREA(S) EVERY DAY NEEDED FOR DRY SKIN 368 g Active NovoLOG MIX 70/30 (70-30) 100 UNIT/ML injectionIndicat ions:Type 2 diabetes mellitus without complication, with long-term current use of insulin ([facility]) INJECT 76 UNITS SUBCUTANEOUSLY TWICE DAILY WITH BREAKFAST AND WITH DINNER 50 mL Active FREESTYLE LITE test stripIndications :Type 2 diabetes mellitus with diabetic neuropathy, with long-term current use of insulin ([facility]) TEST BLOOD SUGAR THREE TIMES DAILY 100 strip Active allopurinol (Zyloprim) 100 MG tablet TAKE 1/2 TABLET BY MOUTH EVERY MORNING 45 tablet 3 Active metoprolol tartrate (Lopressor) 100 MG tablet TAKE 1 TABLET BY MOUTH TWICE DAILY IN THE MORNING AND IN THE EVENING WITH FOOD 180 tablet Active Multiple Vitamins-Mineral s (Cerovite Senior) tablet TAKE 1 TABLET BY MOUTH EVERY MORNING 90 tablet Active magnesium oxide 250 MG tablet TAKE 1 TABLET BY MOUTH EVERY MORNING 90 tablet Active donepezil (Aricept) 10 MG tablet TAKE 1 TABLET BY MOUTH AT BEDTIME 90 tablet 3 025 Active sucralfate (Carafate) 1 g tablet TAKE 1 TABLET BY MOUTH THREE TIMES DAILY IN THE MORNING, AT NOON, AND IN THE EVENING BEFORE MEALS 90 tablet 3 Active apixaban (Eliquis) 2.5 MG tablet Take 1 tablet (2.5 mg) by mouth 2 times daily. 60 tablet 6 Active apixaban (Eliquis) 5 MG tabletIndication s:Atrial fibrillation, unspecified type (CMS/HCC) TAKE 1 TABLET BY MOUTH TWICE DAILY IN THE MORNING AND IN THE EVENING 60 tablet 025 2024 Discontinued(D ose adjustment) sucralfate (Carafate) 1 g tablet TAKE 1 TABLET BY MOUTH THREE TIMES DAILY IN THE MORNING, AT NOON, AND IN THE EVENING BEFORE MEALS 90 tablet 3 025 2024 Discontinued Aspirin Low Dose 81 MG chewable tablet TAKE 1 TABLET BY MOUTH EVERY MORNING (CHEW) 90 tablet 1 025 2024 Discontinued(T herapy completed) Multiple Vitamins-Mineral s (Cerovite Senior) tablet TAKE [...] Villafana, here for a HDF Ad[place] [facility] [place]19[place] Patient presented c/o dizziness and [...] recurrent sebaceous cysts on his back, his residential child care counselor recently drained one and although there is [...] will be referred to PT/OT clinic for [id number] examination, and after evaluation by PT/OT will order a power mobility device. Chronic periodontitis 05/21/2023 Alzheimer's disease 01/22/2023 Assessment & Plan (05/21/2024 10:21 AM EDT): Continue Donepezil 10mg and Memantine 10mg daily Son is [employer] SAL[employer]OCIATE, needs assistance with paperwork for medical power or civil litigation attorney Decided against medical guardianship due to fears he would become responsible for debts of his father Continue day/night cycles Continue gentle redirection during hallucinations Assessment & Plan (06/15/2023 6:06 AM EDT): Continue Donepezil 10mg and Memantine 10mg daily Son is [employer] SAL[employer] ASSOCIATE, needs assistance with paperwork for medical power or civil litigation attorney Decided against medical guardianship due to fears he would become responsible for debts of his father Continue day/night cycles Continue gentle redirection during hallucinations Assessment & Plan (01/25/2023 1:02 PM EST): Continue Donepezil 10mg Son is REG[employer] SAL[employer] ASSOCIATE and medical power or civil litigation attorney Atrial fibrillation 01/22/2023 Assessment & Plan [...] PM EDT): Patient's family requesting a freestyle ivan meter so he does not have [...] Encounters Date Type Department Care Team Description 08/07/2025 Orders Only [facility] [address] [place] [address] Kathy Villafana MD 08/07/2025 Refill [facility] [address] [place] [address] Kathy Villafana MD Atrial fibrillation, unspecified type (CMS/HCC) 08/05/2025 Telephone [facility] [address] [place] [address] Kathy Villafana MD HDF appointment 08/05/2025 Telephone [facility] [address] [place] [phone] Kathy Villafana MD Error (VOID this visit) 08/05/2025 Refill [facility] [address] [place] [address] Kathy Villafana MD 08/03/2025 Telephone [facility] [address] [place] [phone] Kathy Villafana MD Hospital Follow-up 07/28/2025 Telephone [facility] [address] [place] [phone] Kathy Villafana MD FYI 07/13/2025 Refill [facility] [address] [place] [phone] Kathy Villafana MD 07/07/2025 Telephone [facility] [address] [place] [phone] Kathy Villafana MD ER Follow-up 07/03/2025 Orders Only GENERIC EXTERNAL DATA DEPARTMENT Provider, Generic External Data 07/02/2025 Orders Only GENERIC EXTERNAL DATA DEPARTMENT Provider, Generic External Data 06/29/2025 Refill [facility] [address] [place] [address] Kathy Villafana MD 06/22/2025 Telephone [facility] [address] [place] [phone] Kathy Villafana MD Supplies 06/21/2025 Orders Only [...] Description 08/19/2025 10:30 AM EDT Office Visit [facility] [address] [place] [address] Kathy Villafana MD [address] [place] [address] 08/31/2025 1:30 PM EDT Office Visit [facility] ADULT DENTAL [address] [place] [address] Julieth Torres 10/06/2025 2:30 PM EST Office Visit [facility] OPTOMETRY [address], [place] [phone] Jenise Garcia, OD [address] [place] [address] Health Maintenance Due Date Last Done Comments Dental Prophylaxis 1945 Alcohol/Substance Use Screening 1957 DTaP/Tdap/Td Vaccines (1 - Tdap) 1964 Pneumococcal Vaccine: 50+ Years (1 of 2 - PCV) 1964 Zoster Vaccines (1 of 2) 1995 RSV Patients and Patients Aged 60 years or older (1 - 1-dose 75+ series) 2020 Dental Oral Exam 11/21/2023 05/21/2023 Dental X-Ray: Bitewings 05/22/2024 05/21/2023 Diabetes: Hemoglobin A1C 12/23/202409/22/ 024, 07/10/2024, 02/20/2024, Additional history exists Depression Screening 02/19/2025 02/20/2024, 02/20/20 Diabetes: Foot Exam 02/19/2025 02/20/2024 Lipid Panel 02/19/2025 02/20/2024, 09/28/2021 SDOH Screening 02/19/2025 02/20/2024 COVID-19 Vaccine (2 - season) 2025 12/21/2021 Influenza Vaccine (#1) 2025 Eye Exam 08/29/2025 [...] neuropathy, with long-term current use of insulin ([facility]) LIPID PANEL, STANDARD Routine 02/20/2024 3:00 PM EDT Type 2 diabetes mellitus with diabetic neuropathy, with long-term current use of insulin ([facility]) INTRAORAL - COMPLETE SERIES [...] time period is included. Color Urine Yellow [facility] Appearance Urine Cloudy [facility] PH 5.5 5.0 - 9.0 [facility] Glucose Urine UA >=1000(A) Negative mg/dL [facility] Urine Blood Trace(A) Negative [facility] Specific Theodore - Urine 1.010 1.005 - 1.025 [facility] Urine Protein Trace Neg-Trace mg/dL [facility] Urine Ketones Negative Negative mg/dL [facility] Nitrite Urine Negative Negative [facility] Leukocyte Esterase Urine Large (3+)(A) Negative [facility] RBC Urine 0-2 0 - 2 /HPF [facility] Urine WBC >50(A) 0 - 5 /HPF [facility] Urine Squamous Epithelial Cell 0-2 0 - 2 /HPF [facility] Urine Bacteria 4+ None Seen [facility] Hyaline Casts, Urine 0-2 0 - 2 /LPF [facility] 07/03/2025 12:0 2 AM EDT 07/03/2025 12:10 AM EDT Narrative [facility] - 07/03/2025 12:18 AM EDT [id number], Catheterized us Generic External Data Provider LAB URINE ORDERAB LES Final Result [facility] [address] [place] [phone] * (ABNORMAL) Urinalysis w/reflex microscopic (07/03/2025 12:02 AM EDT) Color Urine Yellow [facility] Appearance Urine Cloudy [facility] PH 5.5 5.0 - 9.0 [facility] Glucose Urine UA >=1000(A) Negative mg/dL [facility] Urine Blood Trace(A) Negative [facility] Specific Theodore - Urine 1.010 1.005 - 1.025 [facility] Urine Protein Trace Neg-Trace mg/dL [facility] Urine Ketones Negative Negative mg/dL [facility] Nitrite Urine Negative Negative [facility] Leukocyte Esterase Urine Large (3+)(A) Negative [facility] 07/03/2025 12:0 2 AM EDT 07/03/2025 12:10 AM EDT Narrative [facility] - 07/03/2025 12:15 AM EDT [id number], Catheterized Generic External Data Provider LAB URINE ORDERAB LES Final Result Performing Organization Address [facility] Co de Phone Number [facility] [address] [place] [phone] * Culture, Urine, Routine (07/03/2025 12:00 AM EDT) Only the most recent of2 resultswithin the time period is included. Urine Urine specimen from urinary conduit / Unknown 07/03/2025 07/03/2025 Comment:Urine Cath Narrative [facility] - 07/06/2025 7:22 AM EDT Enterobacter cloacae complex Quant > 100,000 cfu/mL Enterobacter cloacae complex: Cefazolin >=32(R) Enterobacter cloacae complex: Cefepime <=0.12(S) Enterobacter cloacae complex: Ciprofloxacin <=0.06(S) Enterobacter cloacae complex: Ertapenem <=0.12(S) Enterobacter cloacae complex: Gentamicin <=1(S) Enterobacter cloacae complex: Nitrofurantoin <=16(S) Enterobacter cloacae complex: Trimethoprim/Sulfamethoxazole <=20(S) Specimen Source: Urine Catheterized Generic External Data Provider LAB MICROBIOLOGY - GENERAL ORDERABLES Final Result Performing Organization Address [facility] Co de Phone Number [facility] [address] [place] [address] [phone] * CT Head w/o Contrast (07/02/2025 10:31 PM EDT) Anatomical Region Laterality Modality Head, Neck Computed Tomogra phy 07/02/2025 10:3 1 PM EDT Narrative 07/02/2025 10:33 PM EDT [address] [address] [address] Scan Report Signed Patient: Dayton Oquendo MR#: [id number] : 1945 Acct:[id number] Age/Sex: 80 / M ADM Date: 07/02/25 Loc: HO.ED Attending Dr: Ordering Physician: Sofi Oneal Date of Service: 07/02/25 Procedure(s): CT head/brain wo IV con Accession Number(s): [id number] cc: Sofi Oneal; Kathy Villafana Report Number: [id number]: Total DLP = 772.04 mGy-cm CLINICAL HISTORY: [...] in OV> 07/02/252231 DD/ 30 TD/TT: 07/02/252230 Poured Wall Foreman: Procedure Note Donotuseinterpreter, Image - 07/02/[address] [address] [address] Scan Report Signed Patient: Dayton Oquendo AMR#: [id number] : 5Acct:[id number] Age/Sex: 80 / MADM Date: 07/02/25 Loc: HO.ED Attending Dr: Ordering Physician: Sofi Oneal Date of Service: 07/02/25 Procedure(s): CT head/brain wo IV con Accession Number(s): [id number] cc: Sofi Oneal; Kathy Villafana Report Number: [id number]: Total DLP = 772.04 mGy-cm CLINICAL HISTORY: [...] in OV> 07/02/252231 DD/ 30 TD/TT: 07/02/252230 Poured Wall Foreman: [facility] External Provider IMG CT PROCEDURES Final Result * CT Cervical Spine w/o Contrast (07/02/2025 10:30 PM EDT) Anatomical Region Laterality Modality Spine, C-spine Computed Tomogra phy 07/02/2025 10:3 0 PM EDT Narrative 07/02/2025 10:32 PM EDT [place] [address] CT Scan Report Signed Patient: Dayton Oquendo MR#: [id number] : 1945 Acct:[id number] Age/Sex: 80 / M ADM Date: 07/02/25 Loc: HO.ED Attending Dr: Ordering Physician: Sofi Oneal Date of Service: 07/02/25 Procedure(s): CT cervical spine wo IV con Accession Number(s): [id number] cc: Sofi Oneal; Kathy Villafana Report Number: [id number]: Total DLP = 497.38 mGy-cm CLINICAL HISTORY: [...] in OV> 07/02/252230 DD/ 29 TD/TT: 07/02/252229 Poured Wall Foreman: Procedure Note Donotuseinterpreter, Image - 07/02/[address] [address] [address] Scan Report Signed Patient: Dayton Oquendo AMR#: [id number] : 5Acct:[id number] Age/Sex: 80 / MADM Date: 07/02/25 Loc: HO.ED Attending Dr: Ordering Physician: Sofi Oneal Date of Service: 07/02/25 Procedure(s): CT cervical spine wo IV con Accession Number(s): [id number] cc: Sofi Oneal; Kathy Villafana Report Number: [id number]: Total DLP = 497.38 mGy-cm CLINICAL HISTORY: [...] in OV> 07/02/252230 DD/ 29 TD/TT: 07/02/252229 Poured Wall Foreman: [facility] External Provider IMG CT PROCEDURES Final Result * High Sensitivity Troponin I (07/02/2025 8:00 PM EDT) Only the most recent of2 resultswithin the time period is included. TROPONIN I HIGH SENSITIVITY 6.7 <3.5 - 35.0 ng/L [facility] Comment:The Patel high sens itivity Troponin-I results should beused in conjunction with other diagnostic information suchas ECG, clinical observations and information, and patientsymptoms to aid in the diagnosis of MD. 07/02/2025 8:00 PM EDT 07/02/2025 8:07 PM EDT us Generic External Data Provider LAB BLOOD ORDERAB LES Final Result [facility] [address] [place], [place] [phone] * (ABNORMAL) CBC auto differential (07/02/2025 8:00 PM EDT) Only the most recent of3 resultswithin the time period is included. White Blood Count 6.4 4.8 - 10.8 X10*3/uL [facility] Red Blood Count 3.92(L) 4.60 - 5.80 X10*6/uL [facility] Hemoglobin 9.5(L) 14.0 - 18.0 g/dl [facility] Hematocrit 32.3(L) 42.0 - 52.0 % [facility] Mean Corpuscular Volume 82.4 80.0 - 98.0 fL [facility] Mean Corpuscular Hemoglobin 24.2(L) 27.0 - 33.0 pg [facility] Mean Corpuscular HGB Conc 29.4(L) 31.0 - 36.0 g/dl [facility] Red Cell Distribution Width 18.0(H) 11.0 - 16.0 % [facility] Platelet Count 213 160 - 400 X10*3/uL [facility] Mean Platelet Volume 11.1 9.4 - 12.4 fL [facility] Neutrophils Percent Auto 61.6 45 - 73 % [facility] Imm Gran Pct Auto 0.2 0.0 - 0.4 % [facility] Lymphocytes Percent Auto 22.0 20 - 40 % [facility] Monocytes Percent Auto 10.7 2 - 11 % [facility] Eosinophils Percent Auto 4.4(H) 0 - 4 % [facility] Basophils Percent Auto 1.1 0 - 2 % [facility] NRBC Pct Auto 0.0 0.0 - 0.2 /100WBC [facility] Neutrophils Absolute Auto 3.9 2.0 - 8.3 x10*3/uL [facility] Imm Gran Abs Auto 0.01 0.00 - 0.03 X10*3/uL [facility] Lymphocytes Absolute Auto 1.4 1.2 - 4.9 X10*3/uL [facility] Monocytes Absolute Auto 0.7 0.1 - 1.2 X10*3/uL [facility] Eosinophils Absolute Auto 0.3 0.0 - 0.4 X10*3/uL [facility] Basophils Absolute Auto 0.1 0.0 - 0.2 X10*3/uL [facility] NRBC Abs Auto 0.000 0.0 - 0.012 X10*3/uL [facility] 07/02/2025 8:00 PM EDT 07/02/2025 8:07 PM EDT us Generic External Data Provider LAB BLOOD ORDERAB LES Final Result [facility] [address] [place] [phone] * (ABNORMAL) Partial Thromboplastin Time, Activated (APTT) (07/02/2025 8:00 PM EDT) Partial Thromboplastin Time 34.4(H) 26.7 - 34.1 SEC [facility] 07/02/2025 8:00 PM EDT 07/02/2025 8:07 PM EDT us Generic External Data Provider LAB BLOOD ORDERAB LES Final Result Performing Organization Address City/[facility]/ZIP Co de Phone Number [facility] [address] [place] [phone] * (ABNORMAL) Comprehensive Metabolic Panel (07/02/2025 8:00 PM EDT) Only the most recent of3 resultswithin the time period is included. Sodium 141 135 - 145 mmol/L [facility] Potassium 3.1(L) 3.3 - 5.1 mmol/L [facility] Chloride 98 96 - 108 mmol/L [facility] Carbon Dioxide 31(H) 22 - 29 mmol/L [facility] Anion Gap 15 12 - 20 [facility] Urea Nitrogen (BUN) 32(H) 9 - 16 mg/dL [facility] Creatinine, Serum 2.01(H) 0.5 - 1.4 mg/dL [facility] Creatinine Clr Calc Pharmacy 35.6 [facility] Comment:eGFR (calculated fro m the MDRD study equation) and eCrCl(calculated from the Cockcroft-Gault equation) are based ondifferent parameters and may not yield comparable results.If eCrCl result is absurd, please check patient'sheight/weight. Estimated Glomerular Filt Rate 32 [facility] Comment:Chronic Kidney Disea se: Estimated GFR < 60 mL/min/1.52s2Jxyjun Kidney Disease: Estimated GFR < 15 mL/min/1.73m2 Glucose 154(H) 60 - 115 mg/dL [facility] Calcium 8.9 8.4 - 10.2 mg/dL [facility] Bilirubin, Total 0.5 0.0 - 1.0 mg/dL [facility] Aspartate Amino Transferase 27 5 - 37 U/L [facility] Alanine Aminotransferase 12 0 - 40 U/L [facility] Total Protein 7.3 6.5 - 8.0 g/dL [facility] Albumin Level 3.7 3.5 - 5.0 g/dL [facility] Alkaline Phosphatase 100 39 - 117 U/L [facility] 07/02/2025 8:00 PM EDT 07/02/2025 8:07 PM EDT us Generic External Data Provider LAB BLOOD ORDERAB LES Final Result [facility] [address] [place] [phone] [phone] * (ABNORMAL) Glucose, Whole Blood (06/21/2025 10:11 PM EDT) Only the most recent of12 resultswithin the time period is included. Glucose, Whole Blood 336(H) 60 - 115 mg/dL [facility] Comment:METER #: [id number] 06/21/2025 10:1 1 PM EDT 06/21/2025 10:15 PM EDT us Generic External Data Provider LAB BLOOD ORDERAB LES Final Result Performing Organization Address [facility]/ZIP Co de Phone Number [facility] [address] [place] [phone] * (ABNORMAL) VENOUS BLOOD GAS (05/23/2025 9:23 PM EDT) VBG pH 7.48(H) 7.32 - 7.43 [facility] Comment:METER #: [id number] additional_comment: Cb patlha VBG PCO2 42 mmHg [facility] Comment:METER #: [id number] additional_comment: Cb patlha VBG PO2 48 mmHg [facility] Comment:METER #: [id number] additional_comment: Cb patlha VBG Base Excess 7.4 mmol/L [facility] Comment:METER #: [id number] additional_comment: Cb patlha VBG HCO3 31(H) 22 - 26 mmol/L [facility] Comment:METER #: [id number] additional_comment: Cb patlha O2 Sat, Cas 72.0 % [facility] Comment:METER #: [id number] additional_comment: Cb orallmelanie 05/23/2025 9:23 PM EDT 05/23/2025 9:26 PM EDT us Generic External Data Provider LAB BLOOD ORDERAB LES Final Result Performing Organization Address City/[facility]/ZIP Co de Phone Number [facility] [address] [place] [phone] [phone] * Beta-Hydroxybutyrate (05/23/2025 9:19 PM EDT) Beta-Hydroxybut yrate 0.18 0.02 - 0.27 mmol/L [facility] 05/23/2025 9:19 PM EDT 05/23/2025 9:22 PM EDT Generic External Data Provider LAB BLOOD ORDERAB LES Final Result Performing Organization Address [facility] Co de Phone Number [facility] [address] [place] [phone] * Magnesium (05/23/2025 9:19 PM EDT) Magnesium 2.3 1.6 - 2.6 mg/dL [facility] 05/23/2025 9:19 PM EDT 05/23/2025 9:22 PM EDT Generic External Data Provider LAB BLOOD ORDERAB LES Final Result Performing Organization Address [facility] Co de Phone Number [facility] [address] [place] [phone] * Hold Green Gel (05/23/2025 9:18 PM EDT) Hold Green Gel See Note [facility] Comment:Specimen held untest ed for 24 hours; Call to requestChemistry testing. 05/23/2025 9:18 PM EDT 05/23/2025 9:25 PM EDT Generic External Data Provider HISTORICAL/NON OR DERABLE LABS Final Result Performing Organization Address [facility] Co de Phone Number [facility] [address] [place] [phone] * (ABNORMAL) POCT HGB A1C (09/22/2024 2:39 PM EDT) Hemoglobin A1C 8.8(A) 4.0 - 6.0 % QC Media Lot # [id number] Lot# Expiration Date Blood 09/22/2024 2:39 PM EDT Kathy Villafana MD POINT OF CARE TEST ENTER/EDIT ORDERABLES Final Result * (ABNORMAL) Lipid Panel, Standard (02/20/2024 3:00 PM EDT) Triglycerides 186(H) <150 mg/dL [facility] Comment:Desirable Triglyceri de: less than 150 mg/dLBorderline High Triglyceride 150-199 mg/dLHigh Triglyceride: 200-499 mg/dLVery High Triglyceride: greater than or equal to 5OO mg/dL Cholesterol 159 <200 mg/dL [facility] Comment:Desirable Cholestero l: less than 200 mg/dLBorderline High Cholesterol: 200-239 mg/dLHigh Cholesterol: greater than 239 mg/dL LDL Cholesterol Calculated 78 <100 mg/dL [facility] Comment:Desirable LDL: less than 100 mg/dLNear Optimal/Above Optimal LDL: 110- 129 mg/dLBorderline High LDL: 130-159 mg/dLHigh LDL: 160-189 mg/dLVery High LDL: greater than or equal to 190 mg/dL HDL Cholesterol 44 >40 mg/dL [facility] Comment:Desirable HDL: great er than 40 mg/dL Note: This HDL assay may give artificially low results in patients with liver disease. Blood Venous blood specimen / Unknown 02/20/2024 3:00 PM EDT 02/20/2024 4:04 PM EDT Kathy Villafana MD LAB BLOOD ORDERABLES Final Res ult [facility] [address] [place] [phone] from Last 3 Months or Most Recently Relevant to Health Maintenance Insurance [facility] Member Subscriber Plan / Payer ( fective 2021-Present) Name:Dayton Oquendo Relation to Subscriber:Self Name:Dayton Oquendo Payer ID:Not on file Group ID:Not on file Type:Not on file Address: [place] [id number] [facility] OPTIONS (O D-SNP) [place] [id number] [facility] [facility] Advance Directives Documents on File Type Date Recorded Patient Vocational Adviser Expl anation Advance Directives and Livin g Will 06/28/2023 Health Care Proxy Care Teams Clockmaker Apprentice Relationship Specialty Start Date End Date Kathy Villafana MD [address] [place] [address] PCP - General Family Medicine 08/05/21 [facility] 12/04/24 Corinne A 01/15/25
--- OUTSIDE RECORDS SUMMARY | 2025-08-12 16:39 | XMS_ITS | Encounter Summary ---
Author Organization [employer] Address [address] [facility] [address] 7t [place] [address] Care Team Providers Care Garment Sewer Hand Name Role Phone Kathy Villafana MD Primary Care Provider [phone] Encounter Details Date Type Department Care Team ([facility] st Contact Info) Description 11/14/2023 Orders Only [facility] MEDICINE 230 [place], [place] [phone] aKthy Villafana MD 230 [place], [place] [phone] Social History Tobacco Use Types Packs/Day Years [...] Description 08/19/2025 10:30 AM EDT Office Visit [facility] MED[facility]INE 230 [place] [address] Kathy Villafana MD 230 [place] [address] 08/31/2025 1:30 PM EDT Office Visit [facility] ADULT DENTAL 230 [place] [address] Julieth Torres 10/06/2025 2:30 PM EST Office Visit [facility] OPTOMETRY 267 [place] [address] TarkaJenise, OD [address] [place] [address] documented as of this encounter Visit Diagnoses Not on filedocumented in this encounter Additional Health Concerns Assessment Noted Time PHQ-9 Depression Total Score: 0 01/22/20 23 3:42 PM EST documented as of this encounter Care Teams Garment Sewer Hand Relationship Specialty Start Date End Date Kathy Villafana MD [address] [place] [address] PCP - General Family Medicine 08/05/21 [facility] 12/04/24 Corinne [facility] 01/15/25 documented as of this encounter
--- OUTSIDE RECORDS SUMMARY | 2025-08-12 16:39 | XMS_ITS | Encounter Summary ---
Author Organization [employer] Address [address] [place] [address] 7t [place] [address] Care Team Providers Care Regional Maintenance Manager Name Role Phone Kathy Villafana MD Primary Care Provider [phone] Reason for Visit * Reason Comments Med Refill Encounter Details Date Type Department Care Team (Late Contact Info) Description 08/18/2023 Refill [facility] MEDICINE [address] [place] [address] [phone] Kathy Villafana MD [address] [place] [address] [phone] Social History Tobacco Use Types Packs/Day Years [...] 10:30 AM EDT Office Visit [facility] MEDICINE [address] [place] [address] [phone] Kathy Villafana MD [address] [place] [address] [phone] 08/31/2025 1:30 PM EDT Office Visit [facility] ADULT DENTAL 230 [place] [address] Julieth Torres 10/06/2025 2:30 PM EST Office Visit [facility] OPTOMETRY [address] [place] [address] Jenise Garcia, OD [address] [place] [address] documented as of this encounter Visit Diagnoses Not on filedocumented in this encounter Additional Health Concerns Assessment Noted Time PHQ-9 Depression Total Score: 0 01/22/20 23 3:42 PM EST documented as of this encounter Care Teams Regional Maintenance Manager Relationship Specialty Start Date End Date Kathy Villafana MD 230 [place] [address] PCP - General Family Medicine 08/05/21 [facility] 12/04/24 [place] [facility] 01/15/25 documented as of this encounter
--- OUTSIDE RECORDS SUMMARY | 2025-08-12 16:39 | XMS_ITS | Encounter Summary ---
Author Organization [employer] Address 75 [facility] 7t [place] [address] Care Team Providers Care Steam Tank Operator Name Role Phone Kathy Villafana MD Primary Care Provider [phone] Reason for Visit * Reason Onset Date Comments Hospital Follow-up 01/20/2025 Encounter Details Date Type Department Care Team ([facility] st Contact Info) Description 01/20/2025 Telephone [facility] MEDICINE 230 [place], [place] [phone] Kathy Villafana MD 230 [place], [place] [phone] Hospital Follow-up Social History Tobacco Use Types [...] from pt requesting a HDF appt. Hospital: [facility] Date of admission: 01/08/2025 Discharge date: 01/13/2025 Diagnosed:hypoxic respiratory failure *Send message to [place] Clinical Care Coordinators documented in this encounter Plan of Treatment Upcoming Encounters Date Type Department Care Team (Late st Contact Info) Description 08/19/2025 10:30 AM EDT Office Visit [facility] MEDICINE 230 [place] [address] Kathy Villafana MD 230 [place] [address] 08/31/2025 1:30 PM EDT Office Visit [facility] ADULT DENTAL [address] [place] [address] Julieth Torres 10/06/2025 2:30 PM EST Office Visit [facility] OPTOMETRY 267 [place] [address] Jenise Garcia OD [address] [place] [address] documented as of this encounter Visit Diagnoses Not on filedocumented in this encounter Additional Health Concerns Assessment Noted Time PHQ-9 Depression Total Score: 0 02/20/20 24 2:34 PM EDT documented as of this encounter Care Teams Steam Tank Operator Relationship Specialty Start Date End Date Kathy Villafana MD [address] [place] [address] [address] PCP - General Family Medicine 08/05/21 [facility] 12/04/24 Corinne [facility] 01/15/25 documented as of this encounter
--- OUTSIDE RECORDS SUMMARY | 2025-08-12 16:39 | XMS_ITS | Encounter Summary ---
Author Organization [employer] Address [address] [facility] [address] 7t [place] [address] Care Team Providers Care Tire Fixer Name Role Phone Kathy Villafana MD Primary Care Provider [phone] Encounter Details Date Type Department Care Team ([facility] st Contact Info) Description 09/18/2023 Abstract [facility] MEDICINE 230 [place], [place] [phone] Kathy Villafana MD 230 [place], [place] [phone] Social History Tobacco Use Types Packs/Day Years [...] Description 08/19/2025 10:30 AM EDT Office Visit [facility] MEDICINE 230 [place] [address] Kathy Villafana MD 230 [place] [address] 08/31/2025 1:30 PM EDT Office Visit [facility] ADULT DENTAL 230 [place] [address] Julieth Torres 10/06/2025 2:30 PM EST Office Visit [facility] OPTOMETRY 267 [place], [place] [phone] TarJenise tyler, OD [address] [place] [address] documented as of this encounter Visit Diagnoses Not on filedocumented in this encounter Additional Health Concerns Assessment Noted Time PHQ-9 Depression Total Score: 0 01/22/20 23 3:42 PM EST documented as of this encounter Care Teams Tire Fixer Relationship Specialty Start Date End Date Kathy Villafana MD [address] [place] [address] PCP - General Family Medicine 08/05/21 [facility] 12/04/24 Corinne [facility] 01/15/25 documented as of this encounter
--- OUTSIDE RECORDS SUMMARY | 2025-08-12 16:39 | XMS_ITS | Encounter Summary ---
Author Organization [facility] Address [address] [place] [address] Phone Care Team Providers Care Boiler House Operator Name Role Phone Kathy Villafana MD Primary Care Provider [phone] Reason for Visit * Reason Comments Med Refill Encounter Details Date Type Department Care Team (Late st Contact Info) Description 07/14/2022 Refill [facility] [address] [place] [phone] Salty Kim, DO [address] [place] [address] Social History Tobacco Use Types Packs/Day Years [...] on filedocumented in this encounter Care Teams Boiler House Operator Relationship Specialty Start Date End Date Kathy Villafana MD PCP - General Circus Rider 10/13/21 documented as of this encounter
--- OUTSIDE RECORDS SUMMARY | 2025-08-12 16:39 | XMS_ITS | Encounter Summary ---
Author Organization [facility] Address [address] [place] [address] 7t [place] [address] Care Team Providers Care Wet Wheeler Name Role Phone Kathy Villafana MD Primary Care Provider [phone] Reason for Visit * Reason Comments Med Refill Encounter Details Date Type Department Care Team (Late Contact Info) Description 05/24/2023 Refill [facility] MEDICINE [address] [place] [address] [phone] Kathy Villafana MD [address] [place] [address] [phone] Social History Tobacco Use Types Packs/Day Years [...] Description 08/19/2025 10:30 AM EDT Office Visit [facility] MEDICINE [address] [place] [address] Kathy Villafana MD 230 [place] [address] 08/31/2025 1:30 PM EDT Office Visit [facility] ADULT DENTAL 230 [place] [address] TorresJulieth lyn 10/06/2025 2:30 PM EST Office Visit [facility] OPTOMETRY 267 [place], [place] [phone] TarJenise tyler, OD [address] [place] [address] documented as of this encounter Visit Diagnoses Not on filedocumented in this encounter Additional Health Concerns Assessment Noted Time PHQ-9 Depression Total Score: 0 01/22/20 23 3:42 PM EST documented as of this encounter Care Teams Wet Wheeler Relationship Specialty Start Date End Date Kathy Villafana MD [address] [place] [address] PCP - General Family Medicine 08/05/21 [facility] 12/04/24 oCrinne [facility] 01/15/25 documented as of this encounter
--- OUTSIDE RECORDS SUMMARY | 2025-08-12 16:39 | XMS_ITS | Encounter Summary ---
Author Organization [employer] Address [address] [place] [address] 7t [place] [address] Care Team Providers Care Spring Former Hand Name Role Phone Kathy Villafana MD Primary Care Provider [phone] Reason for Visit * Reason Comments Med Refill Encounter Details Date Type Department Care Team (Late Contact Info) Description 12/01/2022 Refill [facility] MED & PEDS [address] [place], [place] [phone] Kathy Villafana MD [address] [place] [address] [phone] Type 2 diabetes mellitus with hyperglycemia, with long-term current use of insulin ([facility]) Social History Tobacco Use Types Packs/Day [...] Description 08/19/2025 10:30 AM EDT Office Visit [facility] MEDICINE [address] [place] [address] [phone] Kathy Villafana MD [address] [place] [address] [phone] 08/31/2025 1:30 PM EDT Office Visit [facility] ADULT DENTAL [address] [place] [address] [phone] Julieth Torres 10/06/2025 2:30 PM EST Office Visit [facility] OPTOMETRY [address] [place] [address] Jenise Garcia, OD 267 [place], [place] [phone] documented as of this encounter Visit Diagnoses Diagnosis Type 2 diabetes mellitus with hyperglycemia, with long-term current use of insulin ([facility]) documented in this encounter Care Teams Spring Former Hand Relationship Specialty Start Date End Date Kathy Villafana MD [address] [place] [address] PCP - General Family Medicine 08/05/21 [facility] 12/04/24 Corinne [facility] 01/15/25 documented as of this encounter
--- OUTSIDE RECORDS SUMMARY | 2025-08-12 16:39 | XMS_ITS | Encounter Summary ---
Author Organization [employer] Address [address] [facility] [address] 7t [place] [address] Care Team Providers Care Certified Flex Endoscope Reprocessor Name Role Phone Kathy Villafana MD Primary Care Provider [phone] Encounter Details Date Type Department Care Team ([facility] st Contact Info) Description 08/07/2025 Refill [facility] MEDICINE 230 [place], [place] [phone] Kathy Villafana MD 230 [place], [place] [phone] Atrial fibrillation, unspecified type (CMS/HCC) Social History [...] Telephone Encounter - Della Pruitt RN - 08/10/2025 3:47 PM EDT TC placed again to both numbers in chart, no answer, left another VM. Attempt x 3. Pt./ son to f/upat HDF appt. 08/19/25 or sooner prn * Telephone Encounter - Della Pruitt RN - 08/10/2025 11:52 AM EDT TC attempted to both numbers again, someone picked up at [phone] however did not respond. Leftanother message at son's number [phone]. Attempt x 2. Will reattempt in pm if no c/b * Telephone Encounter - Della Pruitt RN - 08/07/2025 3:14 PM EDT TC placed to son at both numbers to advise of rx changes, no answer, left messages on both numbers requesting call back to Red Team RN upon receipt of message. Will reattempt Sunday if no c/b documented in this encounter Plan of Treatment Upcoming Encounters Date Type Department Care Team (Late st Contact Info) Description 08/19/2025 10:30 AM EDT Office Visit [facility] MEDICINE 230 [place] [address] Kathy Villafana MD 230 [place] [address] 08/31/2025 1:30 PM EDT Office Visit [facility] ADULT DENTAL 230 [place] [address] Julieth Torres 10/06/2025 2:30 PM EST Office Visit [facility] OPTOMETRY [address] [place], [place] [phone] TarkaJensie, OD 267 [place] [address] documented as of this encounter Visit Diagnoses Diagnosis Atrial fibrillation, unspecified type (CMS/HCC) documented in this encounter Additional Health Concerns Assessment Noted Time PHQ-9 Depression Total Score: 0 02/20/20 24 2:34 PM EDT documented as of this encounter Care Teams Certified Flex Endoscope Reprocessor Relationship Specialty Start Date End Date Kathy Villafana MD 230 [place], [place] [phone] PCP - General Family Medicine 08/05/21 [facility] 12/04/24 Corinne [facility] 01/15/25 documented as of this encounter
--- OUTSIDE RECORDS SUMMARY | 2025-08-12 16:39 | XMS_ITS | Encounter Summary ---
Author Organization [employer] Address [address] 7t [place] [address] Care Team Providers Care Manager Equity Name Role Phone Kathy Villafana MD Primary Care Provider [phone] Reason for Visit * Reason Comments Med Refill Encounter Details Date Type Department Care Team (Late st Contact Info) Description 11/28/2023 Refill [facility] MED[facility]INE 230 [place], [place] [phone] Kathy Villafana MD 230 [place], [place] [phone] Social History Tobacco Use Types Packs/Day Years [...] t he electric, gas, oil or water [employer] threatened to shut off services in your [...] Description 08/19/2025 10:30 AM EDT Office Visit [facility] 230 [place] [address] Kathy Villafana MD 230 [place] [address] 08/31/2025 1:30 PM EDT Office Visit [facility] ADULT DENTAL 230 [place] [address] Julieth Torres 10/06/2025 2:30 PM EST Office Visit [facility] OPTOMETRY [address] [place] [address] Jenise Garcia OD 267 [place] [address] documented as of this encounter Visit Diagnoses Not on filedocumented in this encounter Additional Health Concerns Assessment Noted Time PHQ-9 Depression Total Score: 0 01/22/20 23 3:42 PM EST documented as of this encounter Care Teams Manager Equity Relationship Specialty Start Date End Date Kathy Villafana MD 230 [place] [address] PCP - General Family Medicine 08/05/21 [facility] 12/04/24 Corinne HOOKS 01/15/25 documented as of this encounter
--- OUTSIDE RECORDS SUMMARY | 2025-08-12 16:39 | XMS_ITS | Encounter Summary ---
Author Organization [employer] Address [address] [facility] [address] 7t [place] [address] Care Team Providers Care Equipment Mechanic Name Role Phone Kathy Villafana MD Primary Care Provider [phone] Encounter Details Date Type Department Care Team (Late st Contact Info) Description 12/20/2023 Abstract [facility] MEDICINE 230 [place], [place] [phone] Kathy Villafana MD 230 [place], [place] [phone] Social History Tobacco Use Types Packs/Day Years [...] Office Visit [facility] MEDICINE 230 [place] [address] Kathy Villafana MD 230 [place] [address] 08/31/2025 1:30 PM EDT Office Visit [facility] ADULT DENTAL 230 [place] [address] Julieth Torres 10/06/2025 2:30 PM EST Office Visit [facility] OPTOMETRY 267 [place], [place] [phone] TarJenise tyler, OD 267 [place] [address] documented as of this encounter Visit Diagnoses Not on filedocumented in this encounter Additional Health Concerns Assessment Noted Time PHQ-9 Depression Total Score: 0 01/22/20 23 3:42 PM EST documented as of this encounter Care Teams Equipment Mechanic Relationship Specialty Start Date End Date Kathy Villafana MD [address] [place] [address] PCP - General Family Medicine 08/05/21 [facility] 12/04/24 Corinne [facility] 01/15/25 documented as of this encounter
--- OUTSIDE RECORDS SUMMARY | 2025-08-12 16:39 | XMS_ITS | Encounter Summary ---
Author Organization [employer] Address [address] 7t [place] [address] Care Team Providers Care Communications Professional Name Role Phone Kathy Villafana MD Primary Care Provider [phone] Encounter Details Date Type Department Care Team ([facility] st Contact Info) Description 09/24/2023 Abstract [facility] MEDICINE [address] [place], [place] [phone] Kathy Villafana MD [address] [place], [place] [phone] Social History Tobacco Use Types Packs/Day Years [...] Description 08/19/2025 10:30 AM EDT Office Visit [facility] MEDICINE [address] [place] [address] Kathy Villafana MD [address] [place] [address] 08/31/2025 1:30 PM EDT Office Visit [facility] ADULT DENTAL [address] [place] [address] Julieth Torres 10/06/2025 2:30 PM EST Office Visit [facility] OPTOMETRY [address] [place], [place] [phone] TarJenise tyler, OD 267 [place] [address] documented as of this encounter Visit Diagnoses Not on filedocumented in this encounter Additional Health Concerns Assessment Noted Time PHQ-9 Depression Total Score: 0 01/22/20 23 3:42 PM EST documented as of this encounter Care Teams Communications Professional Relationship Specialty Start Date End Date Kathy Villafana MD [address] [place] [address] PCP - General Family Medicine 08/05/21 [facility] 12/04/24 Corinne [facility] 01/15/25 documented as of this encounter
--- OUTSIDE RECORDS SUMMARY | 2025-08-12 16:39 | XMS_ITS | Encounter Summary ---
Author Organization [employer] Address [address] 7t [place] [address] Care Team Providers Care Car Seat Coverer Name Role Phone Kathy Villafana MD Primary Care Provider [phone] Encounter Details Date Type Department Care Team ([facility] st Contact Info) Description 08/07/2025 Orders Only [facility] MEDICINE 230 [place], [place] [phone] Kathy Villafana MD 230 [place], [place] [phone] Social History Tobacco Use Types Packs/Day Years [...] 08/19/2025 10:30 AM EDT Office Visit [facility] MED[facility] 230 [place] [address] Kathy Villafana MD 230 [place] [address] 08/31/2025 1:30 PM EDT Office Visit [facility] ADULT DENTAL [address] [place] [address] Julieth Torres 10/06/2025 2:30 PM EST Office Visit [facility] OPTOMETRY 267 [place] [address] TarkaJenise, OD 267 [place] [address] documented as of this encounter Visit Diagnoses Not on filedocumented in this encounter Additional Health Concerns Assessment Noted Time PHQ-9 Depression Total Score: 0 02/20/20 24 2:34 PM EDT documented as of this encounter Care Teams Car Seat Coverer Relationship Specialty Start Date End Date Kathy Villafana MD 230 [place] [address] PCP - General Family Medicine 08/05/21 [facility] 12/04/24 Corinne [facility] 01/15/25 documented as of this encounter
--- OUTSIDE RECORDS SUMMARY | 2025-08-12 16:39 | XMS_ITS | Clinical Summary ---
Author Organization [facility] Address [address] [address] Care Team Providers Care Supervisor [employer] Name Role Phone Kathy Villafana MD Primary Care Provider [phone] Medications pantoprazole (PROTONIX) 40 MG EC tablet [...] patient's age to complete this topic Insurance [facility] ([id number]) KENJI AUGUSTINE [id number] [facility] ([id number]) KENJI AUGUSTINE [phone] Care Teams Supervisor [employer] Relationship Specialty Start Date End Date Kathy Villafana MD PCP - General Sheep Clipper 10/13/21
--- OUTSIDE RECORDS SUMMARY | 2025-08-12 16:39 | XMS_ITS | Encounter Summary ---
Author Organization [employer] Address [address] [facility] [facility] [address] 7t [place] [address] Care Team Providers Care Military Source Operations Specialist Name Role Phone Kathy Villafana MD Primary Care Provider [phone] Encounter Details Date Type Department Care Team ([facility] st Contact Info) Description 11/28/2023 Orders Only [facility] MEDICINE 230 [place], [place] [phone] Kathy Villafana MD 230 [place], [place] [phone] Social History Tobacco Use Types Packs/Day Years [...] Description 08/19/2025 10:30 AM EDT Office Visit [facility] MEDICINE 230 [place] [address] Kathy Villafana MD 230 [place] [address] 08/31/2025 1:30 PM EDT Office Visit [facility] ADULT DENTAL 230 [place] [address] Julieth Torres 10/06/2025 2:30 PM EST Office Visit [facility] OPTOMETRY [address] [place] [address] TarkaJenise, OD 267 [place] [address] documented as of this encounter Visit Diagnoses Not on filedocumented in this encounter Additional Health Concerns Assessment Noted Time PHQ-9 Depression Total Score: 0 01/22/20 23 3:42 PM EST documented as of this encounter Care Teams Military Source Operations Specialist Relationship Specialty Start Date End Date Kathy Villafana MD [address] [place] [address] PCP - General Family Medicine 08/05/21 [facility] 12/04/24 Corinne [facility] 01/15/25 documented as of this encounter
--- OUTSIDE RECORDS SUMMARY | 2025-08-12 16:39 | XMS_ITS | Encounter Summary ---
Author Organization [employer] Address [address] [facility] [address] 7t [place] [address] Care Team Providers Care Junior Accounting Clerk Name Role Phone Kathy Villaafna MD Primary Care Provider [phone] Reason for Visit * Reason Comments Med Refill Encounter Details Date Type Department Care Team ([facility] st Contact Info) Description 11/18/[address] [facility] MEDICINE 230 [place], [place] [phone] Kathy Villafana MD 230 [place], [place] [phone] Type 2 diabetes mellitus with hyperglycemia, with long-term current use of insulin ([facility]) Social History Tobacco Use Types Packs/Day [...] Description 08/19/2025 10:30 AM EDT Office Visit [facility] MEDICINE 230 [place] [address] Kathy Villafana MD 230 [place] [address] 08/31/2025 1:30 PM EDT Office Visit [facility] ADULT DENTAL 230 [place] [address] Julieth Torres 10/06/2025 2:30 PM EST Office Visit [facility] OPTOMETRY 267 [place] [address] TarJenise tyler, OD 267 [place] [address] documented as of this encounter Visit Diagnoses Diagnosis Type 2 diabetes mellitus with hyperglycemia, with long-term current use of insulin ([facility]) documented in this encounter Additional Health Concerns Assessment Noted Time PHQ-9 Depression Total Score: 0 01/22/20 23 3:42 PM EST documented as of this encounter Care Teams Junior Accounting Clerk Relationship Specialty Start Date End Date Kathy Villafana MD [address] [place] [address] PCP - General Family Medicine 08/05/21 [facility] 12/04/24 Corinne [facility] 01/15/25 documented as of this encounter
--- OUTSIDE RECORDS SUMMARY | 2025-08-12 16:39 | XMS_ITS | Encounter Summary ---
Author Organization [employer] Address 75 [facility] 7t [place] [address] Care Team Providers Care Coin Machine Supervisor Name Role Phone Kathy Villafana MD Primary Care Provider Reason for Visit * Reason Onset Date Comments Hospital Follow-up 12/03/2024 Encounter Details Date Type Department Care Team ([facility] st Contact Info) Description 12/03/2024 Telephone [facility] MEDICINE [address] [place], [place] [phone] Kathy Villafana MD 230 [place], [place] [phone] Hospital Follow-up Social History Tobacco Use Types [...] from pt requesting a HDF appt. Hospital: [facility] Date of admission: 11/25/2024 Discharge date: 12/03/2024 Diagnosed: Heart Attack *Send message to [place] Clinical Care Coordinators documented in this encounter Plan of Treatment Upcoming Encounters Date Type Department Care Team (Late st Contact Info) Description 08/19/2025 10:30 AM EDT Office Visit [facility] MEDICINE [address] [place] [address] Kathy Villafana MD 230 [place] [address] 08/31/2025 1:30 PM EDT Office Visit [facility] ADULT DENTAL [address] [place] [address] Julieth Torres 10/06/2025 2:30 PM EST Office Visit [facility] OPTOMETRY [address] [place] [address] Jenise Garcia OD 267 [place] [address] documented as of this encounter Visit Diagnoses Not on filedocumented in this encounter Additional Health Concerns Assessment Noted Time PHQ-9 Depression Total Score: 0 02/20/20 24 2:34 PM EDT documented as of this encounter Care Teams Coin Machine Supervisor Relationship Specialty Start Date End Date Kathy Villafana MD 230 [facility] [place] [address] PCP - General Family Medicine 08/05/21 [facility] 12/04/24 Corinne [facility] 01/15/25 documented as of this encounter
--- OUTSIDE RECORDS SUMMARY | 2025-08-12 16:39 | XMS_ITS | Encounter Summary ---
Author Organization [employer] Address 75 [facility] 7t [place] [address] Care Team Providers Care Machinist Wood Name Role Phone Kathy Villafana MD Primary Care Provider [phone] Reason for Visit * Reason Onset Date Comments Hospital Follow-up 06/05/2024 Encounter Details Date Type Department Care Team ([facility] st Contact Info) Description 06/05/2024 Telephone [facility] MEDICINE 230 [place], [place] [phone] Kathy Villafana MD 230 [place], [place] [phone] Hospital Follow-up Social History Tobacco Use Types [...] from pt requesting a HDF appt. Hospital: [facility] [place] Date of admission: 05/19 Discharge date: 05/21 Diagnosed: Fever and swelling documented in this encounter Plan of Treatment Upcoming Encounters Date Type Department Care Team (Late st Contact Info) Description 08/19/2025 10:30 AM EDT Office Visit [facility] MEDICINE 230 [place] [address] Kathy Villafana MD 230 [place] [address] 08/31/2025 1:30 PM EDT Office Visit [facility] ADULT DENTAL 230 [place] [address] Julieth Torres 10/06/2025 2:30 PM EST Office Visit [facility] OPTOMETRY [address] [place] [address] Jenise Garcia OD [address] [place] [address] documented as of this encounter Visit Diagnoses Not on filedocumented in this encounter Additional Health Concerns Assessment Noted Time PHQ-9 Depression Total Score: 0 02/20/20 24 2:34 PM EDT documented as of this encounter Care Teams Machinist Wood Relationship Specialty Start Date End Date Kathy Villafana MD 230 [place] [address] PCP - General Family Medicine 08/05/21 [facility] 12/04/24 Corinne [facility] 01/15/25 documented as of this encounter
== END 2025-08-12 13:47 | disposition home or self-care (01) ==
LOC: HO.HGS 13:06
PROVIDERS: PCP General Practice; Visit Provider Surgery
DX: L02.212 Cutaneous abscess of back [any part, except buttock and flank] (principal)
CPT/HCPCS: 99203

== ENCOUNTER → 2025-08-12 13:05 | Outpatient (BNVA) | payer OTHER, SELFPAY | PROVIDERS: PCP General Practice; Visit Provider Surgery | DX: L02.212 Cutaneous abscess of back [any part, except buttock and flank] (principal) | CPT/HCPCS: 10060; 99202 ==

== ENCOUNTER 2025-08-18 01:43 | Inpatient (IN) | payer OTHER, SELFPAY ==
[2025-08-18] VITALS (12 sets, daily range): BP systolic 110–157; BP diastolic 57–83; PULSE 53–70; RESP 12–18; TEMP 36.2–36.8; O2SAT 93–99; BMI 34.3; BMI 30.6
--- NOTE | ~2025-08-18 | XR_ITS ---
CLINICAL HISTORY: SOB 1 view chest x-ray Comparison: CR - XR CHEST 2V - 07/20/25 22:10 EDT Findings: Bilateral basilar infiltrates or edema and small layering pleural effusions. Cardiac silhouette is enlarged. No acute fracture. IMPRESSION: Bilateral basilar infiltrates or edema and small layering pleural effusions. This document has been electronically signed by: Martin Brooks MD, PHD on 08/18/2025 03:20:07
--- NOTE | 2025-08-18 02:09 | ECG_ITS ---
Test Reason : SOB Blood Pressure : */* mmHG Vent. Rate : 58 BPM Atrial Rate : * BPM P-R Int : * ms QRS Dur : 88 ms QT Int : 438 ms P-R-T Axes : * 36 54 degrees QTcB Int : 429 ms Atrial fibrillation with slow ventricular response Low voltage QRS Abnormal ECG When compared with ECG of 27-Jul-2025 19:07, No significant change was found Referred By: Generic ED Physician Electronically Signed By: Brendon Joaquin
[2025-08-18 02:40] LABS: Hematocrit 25.8 % (42.0-52.0); Hemoglobin 7.7 g/dl (14.0-18.0); Mean Corpuscular Volume 79.4 fL (80.0-98.0); Platelet Count 188 X10*3/uL (160-400); Red Blood Count 3.25 X10*6/uL (4.60-5.80)
--- OUTSIDE RECORDS SUMMARY | 2025-08-18 03:21 | XMS_ITS | Encounter Summary ---
Author Organization [facility] Address [address] [place] [address] 7t [place] [address] Care Team Providers Care Infant Caregiver Name Role Phone Kathy Villafana MD Primary Care Provider [phone] Reason for Visit * Reason Comments Med Refill Encounter Details Date Type Department Care Team (Late st Contact Info) Description 05/16/2023 Refill [facility] MEDICINE [address] [place] [address] [phone] Kathy Villafana MD [address] [place] [address] [phone] Social History Tobacco Use Types Packs/Day Years [...] Care Team (Late st Contact Info) Description 08/31/2025 1:30 PM EDT Office Visit [facility] ADULT DENTAL [address] [place] [address] [phone] Julieth Torres 09/07/2025 2:45 PM EDT Office Visit [facility] MEDICINE [address] [place] [address] [phone] Kathy Villafana MD 230 [place], [place] [phone] 10/06/2025 2:30 PM EST Office Visit [facility] OPTOMETRY [address] [place], [place] [phone] Jenise Garcia, OD [address] [place] [address] documented as of this encounter Visit Diagnoses Not on filedocumented in this encounter Additional Health Concerns Assessment Noted Time PHQ-9 Depression Total Score: 0 01/22/20 23 3:42 PM EST documented as of this encounter Care Teams Infant Caregiver Relationship Specialty Start Date End Date Kathy Villafana MD 230 [place], [place] [phone] PCP - General Family Medicine 08/05/21 [facility] 12/04/24 [facility] 01/15/25 documented as of this encounter
--- OUTSIDE RECORDS SUMMARY | 2025-08-18 03:21 | XMS_ITS | Encounter Summary ---
Author Organization [employer] Address 75 [facility] 7t [place] [address] Care Team Providers Care Junior Media Buyer Name Role Phone Kathy Villafana MD Primary Care Provider [phone] Encounter Details Date Type Department Care Team (Late Contact Info) Description 05/22/2023 Abstract [facility] ADULT DENTAL 230 [place] [address] Tr Tay DDS [address] [place], [place] [phone] Social History Tobacco Use Types Packs/Day Years [...] Description 08/31/2025 1:30 PM EDT Office Visit [facility] ADULT DENTAL 230 [place], [place] [phone] Melissa Julieth 09/07/2025 2:45 PM EDT Office Visit [facility] MEDICINE 230 [place], [place] [phone] Kathy Villafana MD 230 [place], [place] [phone] 10/06/2025 2:30 PM EST Office Visit [facility] OPTOMETRY [address] [place], [place] [phone] Jenise Garcia, OD [address] [place], [place] [phone] documented as of this encounter Visit Diagnoses Not on filedocumented in this encounter Additional Health Concerns Assessment Noted Time PHQ-9 Depression Total Score: 0 01/22/20 23 3:42 PM EST documented as of this encounter Care Teams Junior Media Buyer Relationship Specialty Start Date End Date Kathy Villafana MD [address] [place] [address] [phone] PCP - General Family Medicine 08/05/21 [facility] 12/04/24 Cor[facility] 01/15/25 documented as of this encounter
--- OUTSIDE RECORDS SUMMARY | 2025-08-18 03:21 | XMS_ITS | Encounter Summary ---
Author Organization [employer] Address [address] [place] [address] 7t [place] [address] Care Team Providers Care Associate Marketing Manager Name Role Phone Kathy Villafana MD Primary Care Provider [phone] Encounter Details Date Type Department Care Team (Late st Contact Info) Description 01/12/2023 Orders Only [facility] CHC MED & PEDS [address] [place] [address] Mary Ann Skaggs LPN Social History Tobacco [...] Description 08/31/2025 1:30 PM EDT Office Visit [facility] ADULT DENTAL [address] [place] [address] Julieth Torres 09/07/2025 2:45 PM EDT Office Visit [facility] MEDICINE [address] [place] [address] Kathy Villafana MD 230 [place] [address] 10/06/2025 2:30 PM EST Office Visit [facility] OPTOMETRY [address] [place] [address] Jenise Garcia, OD [address] [place] [address] documented as of this encounter Visit Diagnoses Not on filedocumented in this encounter Care Teams Associate Marketing Manager Relationship Specialty Start Date End Date Kathy Villafana MD 230 [place] [address] PCP - General Family Medicine 08/05/21 [facility] 12/04/24 Corinne [facility] 01/15/25 documented as of this encounter
--- OUTSIDE RECORDS SUMMARY | 2025-08-18 03:21 | XMS_ITS | Encounter Summary ---
Author Organization [employer] Address 75 [facility] 7t [place] [address] Care Team Providers Care Pararescue Craftsman Name Role Phone Kathy Villafana MD Primary Care Provider [phone] Reason for Visit * Reason Onset Date Comments Appointment Request 02/12/2025 Encounter Details Date Type Department Care Team ([facility] st Contact Info) Description 02/12/2025 Telephone [facility] MEDICINE [address] [place], [place] [phone] Kathy Villafana MD 230 [place], [place] [phone] Appointment Request Social History Tobacco Use Types [...] Description 08/31/2025 1:30 PM EDT Office Visit [facility] ADULT DENTAL [address] [place] [address] Julieth Torres 09/07/2025 2:45 PM EDT Office Visit [facility] MEDICINE [address] [place] [address] Kathy Villafana MD [address] [place] [address] 10/06/2025 2:30 PM EST Office Visit [facility] OPTOMETRY [address] [place] [address] Jenise Garcia OD [address] [place] [address] documented as of this encounter Visit Diagnoses Not on filedocumented in this encounter Additional Health Concerns Assessment Noted Time PHQ-9 Depression Total Score: 0 02/20/20 24 2:34 PM EDT documented as of this encounter Care Teams Pararescue Craftsman Relationship Specialty Start Date End Date Kathy Villafana MD 230 [place] [address] PCP - General Family Medicine 08/05/21 [facility] 12/04/24 Corinne A 01/15/25 documented as of this encounter
--- OUTSIDE RECORDS SUMMARY | 2025-08-18 03:22 | XMS_ITS | Encounter Summary ---
Author Organization [employer] Address [address] [place] [address] 7t [place] [address] Care Team Providers Care Analytics Developer Name Role Phone Kathy Villafana MD Primary Care Provider [phone] Reason for Visit * Reason Comments Med Refill Encounter Details Date Type Department Care Team (Late Contact Info) Description 12/01/2022 Refill [facility] CHC MED & PEDS [address] [place], [place] [phone] Kathy Villafana MD [address] [place] [address] [phone] Type 2 diabetes mellitus with hyperglycemia, with long-term current use of insulin ([facility]) Social History Tobacco Use Types Packs/Day Years [...] Department Care Team (Late Contact Info) Description 08/31/2025 1:30 PM EDT Office Visit [facility] ADULT DENTAL [address] [place] [address] [phone] Julieth Torres 09/07/2025 2:45 PM EDT Office Visit [facility] MEDICINE [address] [place] [address] Kathy Villafana MD [address] [place] [address] [phone] 10/06/2025 2:30 PM EST Office Visit [facility] OPTOMETRY [address] [place] [address] Jenise Garcia, OD [address] [place] [address] documented as of this encounter Visit Diagnoses Diagnosis Type 2 diabetes mellitus with hyperglycemia, with long-term current use of insulin ([facility]) documented in this encounter Care Teams Analytics Developer Relationship Specialty Start Date End Date Kathy Villafana MD [address] [place] [address] PCP - General Family Medicine 08/05/21 [facility] 12/04/24 Cor[facility] 01/15/25 documented as of this encounter
--- OUTSIDE RECORDS SUMMARY | 2025-08-18 03:22 | XMS_ITS | Encounter Summary ---
Author Organization [employer] Address 75 [facility] 7t [place] [address] Care Team Providers Care Family Services Specialist Name Role Phone Kathy Villafana MD Primary Care Provider [phone] Reason for Visit * Reason Onset Date Comments Hospital Follow-up 06/05/2024 Encounter Details Date Type Department Care Team ([facility] st Contact Info) Description 06/05/2024 Telephone [facility] MEDICINE 230 [place], [place] [phone] Kathy Villafana MD 230 [place], [place] [phone] Hospital Follow-up Social History Tobacco Use Types [...] requesting a HDF appt. Hospital: [facility] Date of admission: 05/19 Discharge date: 05/21 Diagnosed: Fever and swelling documented in this encounter Plan of Treatment Upcoming Encounters Date Type Department Care Team (Late st Contact Info) Description 08/31/2025 1:30 PM EDT Office Visit [facility] ADULT DENTAL [address] [place] [address] Julieth Torres 09/07/2025 2:45 PM EDT Office Visit [facility] MEDICINE [address] [place] [address] Kathy Villafana MD 230 [place] [address] 10/06/2025 2:30 PM EST Office Visit [facility] OPTOMETRY [address] [place] [address] Jenise Garcia OD [address] [place] [address] documented as of this encounter Visit Diagnoses Not on filedocumented in this encounter Additional Health Concerns Assessment Noted Time PHQ-9 Depression Total Score: 0 02/20/20 24 2:34 PM EDT documented as of this encounter Care Teams Family Services Specialist Relationship Specialty Start Date End Date Kathy Villafana MD 230 [place] [address] PCP - General Family Medicine 08/05/21 [facility] 12/04/24 Corinne [facility] 01/15/25 documented as of this encounter
--- OUTSIDE RECORDS SUMMARY | 2025-08-18 03:22 | XMS_ITS | Encounter Summary ---
Author Organization [employer] Address [address] [place] [address] 7t [place] [address] Care Team Providers Care Drier Tender Naphthalene Name Role Phone Kathy Villafana MD Primary Care Provider [phone] Encounter Details Date Type Department Care Team (Late st Contact Info) Description 12/12/2022 Orders Only [facility] CHC MED & PEDS [address] [place] [address] Mary Ann Skaggs LPN Social History Tobacco [...] Description 08/31/2025 1:30 PM EDT Office Visit [facility] ADULT DENTAL [address] [place] [address] Julieth Torres 09/07/2025 2:45 PM EDT Office Visit [facility] MEDICINE [address] [place] [address] Kathy Villafana MD 230 [place] [address] 10/06/2025 2:30 PM EST Office Visit [facility] OPTOMETRY [address] [place] [address] Jenise Garcia, OD [address] [place] [address] documented as of this encounter Visit Diagnoses Not on filedocumented in this encounter Care Teams Drier Tender Naphthalene Relationship Specialty Start Date End Date Kathy Villafana MD 230 [place] [address] PCP - General Family Medicine 08/05/21 [facility] 12/04/24 Corinne Kelvin 01/15/25 documented as of this encounter
--- OUTSIDE RECORDS SUMMARY | 2025-08-18 03:22 | XMS_ITS | Encounter Summary ---
Author Organization [employer] Address 75 [facility] 7t [place] [address] Care Team Providers Care Rounding Machine Operator Name Role Phone Kathy Villafana MD Primary Care Provider [phone] Reason for Visit * Reason Onset Date Comments Hospital Follow-up 08/03/2025 Encounter Details Date Type Department Care Team ([facility] st Contact Info) Description 08/03/2025 Telephone [facility] MEDICINE 230 [place], [place] [phone] Kathy Villafana MD 230 [place], [place] [phone] Hospital Follow-up Social History Tobacco Use Types [...] pt requesting a HDF appt. [place] [facility] Date of admission: 07/20/2025 Discharge date: 07/24/2025 Diagnosed: Fall *Send message to [place] Clinical Care Coordinators Contact son at [phone] (english) documented in this encounter Plan of Treatment Upcoming Encounters Date Type Department Care Team (Late st Contact Info) Description 08/31/2025 1:30 PM EDT Office Visit [facility] ADULT DENTAL 230 [place] [address] Julieth Torres 09/07/2025 2:45 PM EDT Office Visit [facility] MEDICINE [address] [place] [address] Kathy Villafana MD 230 [place] [address] 10/06/2025 2:30 PM EST Office Visit [facility] OPTOMETRY [address] [place] [address] Jenise Garcia OD [address] [place] [address] documented as of this encounter Visit Diagnoses Not on filedocumented in this encounter Additional Health Concerns Assessment Noted Time PHQ-9 Depression Total Score: 0 02/20/20 24 2:34 PM EDT documented as of this encounter Care Teams Rounding Machine Operator Relationship Specialty Start Date End Date Kathy Villafana MD 230 [place] [address] PCP - General Family Medicine 08/05/21 [facility] 12/04/24 Corinne [facility] 01/15/25 documented as of this encounter
--- OUTSIDE RECORDS SUMMARY | 2025-08-18 03:22 | XMS_ITS | Encounter Summary ---
Author Organization [employer] Address [address] [facility] [address] 7t [place] [address] Care Team Providers Care Mandrel Press Hand Name Role Phone Kathy Villafana MD Primary Care Provider [phone] Encounter Details Date Type Department Care Team ([facility] st Contact Info) Description 08/07/2025 Refill [facility] MEDICINE 230 [place], [place] [phone] Kathy Villafana MD 230 [place], [place] [phone] Atrial fibrillation, unspecified type (CMS/HCC) Social History [...] both numbers again, someone picked up at [phone] however did not respond. Leftanother message at son's number [phone]. Attempt x 2. Will reattempt in pm [...] Description 08/31/2025 1:30 PM EDT Office Visit [facility] ADULT DENTAL [address] [place] [address] Julieth Torres 09/07/2025 2:45 PM EDT Office Visit [facility] MEDICINE [address] [place] [address] Kathy Villafana MD 230 [place] [address] 10/06/2025 2:30 PM EST Office Visit [facility] OPTOMETRY [address] [place] [address] TarkaJenise, OD 267 [place] [address] documented as of this encounter Visit Diagnoses Diagnosis Atrial fibrillation, unspecified type (CMS/HCC) documented in this encounter Additional Health Concerns Assessment Noted Time PHQ-9 Depression Total Score: 0 02/20/20 24 2:34 PM EDT documented as of this encounter Care Teams Mandrel Press Hand Relationship Specialty Start Date End Date Kathy Villafana MD 230 [place] [address] PCP - General Family Medicine 08/05/21 [facility] 12/04/24 Cor[facility]ne [facility] 01/15/25 documented as of this encounter
--- OUTSIDE RECORDS SUMMARY | 2025-08-18 03:22 | XMS_ITS | Encounter Summary ---
Author Organization [employer] Address [address] [facility] [address] 7t [place] [address] Care Team Providers Care Newscast Producer Name Role Phone Kathy Villafana MD Primary Care Provider [phone] Encounter Details Date Type Department Care Team ([facility] st Contact Info) Description 09/18/2023 Abstract [facility] MEDICINE 230 [place], [place] [phone] Kathy Villafana MD [address] [place], [place] [phone] Social History Tobacco Use Types Packs/Day Years [...] Description 08/31/2025 1:30 PM EDT Office Visit [facility] ADULT DENTAL 230 [place] [address] Julieth Torres 09/07/2025 2:45 PM EDT Office Visit [facility] MEDICINE 230 [place] [address] Kathy Villafana MD 230 [place] [address] 10/06/2025 2:30 PM EST Office Visit [facility] OPTOMETRY [address] [place] [address] Tarka, Jenise, OD [address] [place] [address] documented as of this encounter Visit Diagnoses Not on filedocumented in this encounter Additional Health Concerns Assessment Noted Time PHQ-9 Depression Total Score: 0 01/22/20 23 3:42 PM EST documented as of this encounter Care Teams Newscast Producer Relationship Specialty Start Date End Date Kathy Villafana MD [address] [place] [address] PCP - General Family Medicine 08/05/21 [facility] 12/04/24 Cor[facility] 01/15/25 documented as of this encounter
--- OUTSIDE RECORDS SUMMARY | 2025-08-18 03:22 | XMS_ITS | Encounter Summary ---
Author Organization [employer] Address [address] [facility] [address]t [place] [address] Care Team Providers Care Glass Breaker Name Role Phone Kathy Villafana MD Primary Care Provider [phone] Reason for Visit * Reason Comments Med Refill Encounter Details Date Type Department Care Team ([facility] st Contact Info) Description 11/18/2023 Refill [facility] MEDICINE 230 [place], [place] [phone] Kathy Villafana MD 230 [place], [place] [phone] Type 2 diabetes mellitus with hyperglycemia, with long-term current use of insulin ([facility]) Social History Tobacco Use Types Packs/Day Years [...] 1:30 PM EDT Office Visit [facility] ADULT DENTAL [address] [place] [address] Julieth Torres 09/07/2025 2:45 PM EDT Office Visit [facility] MEDICINE [address] [place] [address] Kathy Villafana MD [address] [place] [address] 10/06/2025 2:30 PM EST Office Visit [facility] OPTOMETRY 267 [place] [address] TarkaJenise, OD [address] [place] [address] documented as of this encounter Visit Diagnoses Diagnosis Type 2 diabetes mellitus with hyperglycemia, with long-term current use of insulin ([facility]) documented in this encounter Additional Health Concerns Assessment Noted Time PHQ-9 Depression Total Score: 0 01/22/20 23 3:42 PM EST documented as of this encounter Care Teams Glass Breaker Relationship Specialty Start Date End Date Kathy Villafana MD 230 [place] [address] PCP - General Family Medicine 08/05/21 [facility] 12/04/24 Corinne [facility] 01/15/25 documented as of this encounter
--- OUTSIDE RECORDS SUMMARY | 2025-08-18 03:22 | XMS_ITS | Encounter Summary ---
Author Organization [employer] Address [address] 7[address] [place] [address] Care Team Providers Care Tree Pruner Name Role Phone Kathy Villafana MD Primary Care Provider [phone] Reason for Visit * Reason Comments Med Refill Encounter Details Date Type Department Care Team (Late st Contact Info) Description 11/28/[address] [facility] MEDICINE [address] [place], [place] [phone] Kathy Villafana MD 230 [place], [place] [phone] Social History Tobacco Use Types Packs/Day Years [...] t he electric, gas, oil or water [employer] threatened to shut off services in your [...] Description 08/31/2025 1:30 PM EDT Office Visit [facility] ADULT DENTAL [address] [place] [address] Julieth Torres 09/07/2025 2:45 PM EDT Office Visit [facility] MEDICINE [address] [place] [address] Kathy Villafana MD 230 [place] [address] 10/06/2025 2:30 PM EST Office Visit [facility] OPTOMETRY [address] [place] [address] Jenise Garcia, OD [address] [place] [address] documented as of this encounter Visit Diagnoses Not on filedocumented in this encounter Additional Health Concerns Assessment Noted Time PHQ-9 Depression Total Score: 0 01/22/20 23 3:42 PM EST documented as of this encounter Care Teams Tree Pruner Relationship Specialty Start Date End Date Kathy Villafana MD 230 [place] [address] PCP - General Family Medicine 08/05/21 [facility] 12/04/24 Corinne HOOKS 01/15/25 documented as of this encounter
--- OUTSIDE RECORDS SUMMARY | 2025-08-18 03:22 | XMS_ITS | Encounter Summary ---
Author Organization [employer] Address [address] 7t [place] [address] Care Team Providers Care Pan Devulcanizer Helper Name Role Phone Kathy Villafana MD Primary Care Provider [phone] Encounter Details Date Type Department Care Team (Late st Contact Info) Description 12/20/[address] [facility] MEDICINE [address] [place], [place] [phone] Kathy Villafana MD 230 [place], [place] [phone] Social History Tobacco Use Types Packs/Day Years [...] Description 08/31/2025 1:30 PM EDT Office Visit [facility] ADULT DENTAL [address] [place] [address] Julieth Torres 09/07/2025 2:45 PM EDT Office Visit [facility] MEDICINE [address] [place] [address] Kathy Villafana MD [address] [place] [address] 10/06/2025 2:30 PM EST Office Visit [facility] OPTOMETRY [address] [place] [address] Tarka, Jenise, OD [address] [place] [address] documented as of this encounter Visit Diagnoses Not on filedocumented in this encounter Additional Health Concerns Assessment Noted Time PHQ-9 Depression Total Score: 0 01/22/20 23 3:42 PM EST documented as of this encounter Care Teams Pan Devulcanizer Helper Relationship Specialty Start Date End Date Kathy Villafana MD [address] [place] [id number] PCP - General Family Medicine 08/05/21 [facility] 12/04/24 Corinne [facility] 01/15/25 documented as of this encounter
--- OUTSIDE RECORDS SUMMARY | 2025-08-18 03:22 | XMS_ITS | Encounter Summary ---
Author Organization [employer] Address [address] [place] [address] 7t [place] [address] Care Team Providers Care Spacecraft Systems Engineer Name Role Phone Kathy Villafana MD Primary Care Provider [phone] Reason for Visit * Reason Comments Med Refill Encounter Details Date Type Department Care Team (Late Contact Info) Description 05/24/2023 Refill [facility] MEDICINE [address] [place] [address] [phone] Kathy Villafana MD [address] [place] [phone] Social History Tobacco Use Types Packs/Day Years [...] Description 08/31/2025 1:30 PM EDT Office Visit [facility] ADULT DENTAL [address] [place] [address] Julieth Torres 09/07/2025 2:45 PM EDT Office Visit [facility] MEDICINE [address] [place] [address] Kathy Villafana MD [address] [place] [address] 10/06/2025 2:30 PM EST Office Visit [facility] OPTOMETRY [address] [place] [address] TarkaJenise, OD [address] [place] [address] documented as of this encounter Visit Diagnoses Not on filedocumented in this encounter Additional Health Concerns Assessment Noted Time PHQ-9 Depression Total Score: 0 01/22/20 23 3:42 PM EST documented as of this encounter Care Teams Spacecraft Systems Engineer Relationship Specialty Start Date End Date Kathy Villafana MD [address] [place] [address] PCP - General Family Medicine 08/05/21 [facility] 12/04/24 Corinne [facility] 01/15/25 documented as of this encounter
--- OUTSIDE RECORDS SUMMARY | 2025-08-18 03:22 | XMS_ITS | Clinical Summary ---
Author Organization [facility] Address [address] [address] Care Team Providers Care Chip Tuner Name Role Phone Kathy Villafana MD Primary Care Provider [phone] Medications pantoprazole (PROTONIX) 40 MG EC tablet [...] patient's age to complete this topic Insurance [facility] ([id number]) KENJI AUGUSTINE [id number] [facility] ([id number]) KENJI AUGUSTINE [id number] Care Teams Chip Tuner Relationship Specialty Start Date End Date Kathy Villafana MD PCP - General Block Press Operator 10/13/21
--- OUTSIDE RECORDS SUMMARY | 2025-08-18 03:22 | XMS_ITS | Encounter Summary ---
Author Organization [employer] Address [address] [place] [address] Care Team Providers Care Pricing Supervisor Name Role Phone Kathy Villafana MD Primary Care Provider [phone] Encounter Details Date Type Department Care Team ([facility] st Contact Info) Description 01/09/2025 Orders Only [facility] MEDICINE [address] [place], [place] [phone] Kathy Villafana MD 230 [place], [place] [phone] Social History Tobacco Use Types Packs/Day Years [...] Description 08/31/2025 1:30 PM EDT Office Visit [facility] ADULT DENTAL 230 [place] [address] Julieth Torres 09/07/2025 2:45 PM EDT Office Visit [facility] MEDICINE 230 [place] [address] Kathy Villafana MD [address] [place] [address] 10/06/2025 2:30 PM EST Office Visit [facility] OPTOMETRY [address] [place] [address] TarkaJenise, OD [address] [place] [address] documented as of this encounter Visit Diagnoses Not on filedocumented in this encounter Additional Health Concerns Assessment Noted Time PHQ-9 Depression Total Score: 0 02/20/20 24 2:34 PM EDT documented as of this encounter Care Teams Pricing Supervisor Relationship Specialty Start Date End Date Kathy Villafana MD [address] [place] [address] PCP - General Family Medicine 08/05/21 [facility] 12/04/24 Corinne [facility] 01/15/25 documented as of this encounter
--- OUTSIDE RECORDS SUMMARY | 2025-08-18 03:22 | XMS_ITS | Encounter Summary ---
Author Organization [employer] Address [address] [facility] 7t [place] [address] Care Team Providers Care Asbestos Textile Supervisor Name Role Phone Kathy Villafana MD Primary Care Provider [phone] Reason for Visit * Reason Onset Date Comments Hospital Follow-up 12/03/2024 Encounter Details Date Type Department Care Team ([facility] st Contact Info) Description 12/03/2024 Telephone [facility] MEDICINE [address] [place], [place] [phone] Kathy Villafana MD 230 [place], [place] [phone] Hospital Follow-up Social History Tobacco Use Types [...] from pt requesting a HDF appt. Hospital: [facility] Date of admission: 11/25/2024 Discharge date: 12/03/2024 Diagnosed: Heart Attack *Send message to [place] Clinical Care Coordinators documented in this encounter Plan of Treatment Upcoming Encounters Date Type Department Care Team (Late st Contact Info) Description 08/31/2025 1:30 PM EDT Office Visit [facility] ADULT DENTAL [address] [place] [address] Julieth Torres 09/07/2025 2:45 PM EDT Office Visit [facility] MEDICINE [address] [place] [address] Kathy Villafana MD [address] [place] [address] 10/06/2025 2:30 PM EST Office Visit [facility] OPTOMETRY [address] [place] [address] Jenise Garcia OD [address] [place] [address] documented as of this encounter Visit Diagnoses Not on filedocumented in this encounter Additional Health Concerns Assessment Noted Time PHQ-9 Depression Total Score: 0 02/20/20 24 2:34 PM EDT documented as of this encounter Care Teams Asbestos Textile Supervisor Relationship Specialty Start Date End Date Kathy Villafana MD 230 [place] [address] PCP - General Family Medicine 08/05/21 [facility] 12/04/24 Corinne [facility] 01/15/25 documented as of this encounter
--- OUTSIDE RECORDS SUMMARY | 2025-08-18 03:22 | XMS_ITS | Encounter Summary ---
Author Organization [employer] Address [address] [place] [address] Care Team Providers Care It Security Administrator Name Role Phone Kathy Villafana MD Primary Care Provider [phone] Encounter Details Date Type Department Care Team ([facility] st Contact Info) Description 09/24/2023 Abstract [facility] MEDICINE [address] [place], [place] [phone] Kathy Villafana MD [address] [place], [place] [phone] Social History Tobacco Use Types Packs/Day Years [...] Description 08/31/2025 1:30 PM EDT Office Visit [facility] ADULT DENTAL [address] [place] [address] Julieth Torres 09/07/2025 2:45 PM EDT Office Visit [facility] MEDICINE [address] [place] [address] Kathy Villafana MD [address] [place] [address] 10/06/2025 2:30 PM EST Office Visit [facility] OPTOMETRY [address] [place] [address] Tarka, Jenise, OD [address] [place] [address] documented as of this encounter Visit Diagnoses Not on filedocumented in this encounter Additional Health Concerns Assessment Noted Time PHQ-9 Depression Total Score: 0 01/22/20 23 3:42 PM EST documented as of this encounter Care Teams It Security Administrator Relationship Specialty Start Date End Date Kathy Villafana MD [address] [place] [address] PCP - General Family Medicine 08/05/21 [facility] 12/04/24 Corinne [facility] 01/15/25 documented as of this encounter
--- OUTSIDE RECORDS SUMMARY | 2025-08-18 03:22 | XMS_ITS | Encounter Summary ---
Author Organization [employer] Address [address] [facility] 7t [place] [address] Care Team Providers Care Production Support Developer Name Role Phone Kathy Villafana MD Primary Care Provider [phone] Reason for Visit * Reason Onset Date Comments Hospital Follow-up 01/20/2025 Encounter Details Date Type Department Care Team ([facility] st Contact Info) Description 01/20/2025 Telephone [facility] MEDICINE [address] [place], [place] [phone] Kathy Villafana MD 230 [place], [place] [phone] Hospital Follow-up Social History Tobacco Use Types [...] from pt requesting a HDF appt. Hospital: [facility] [place] [facility] Date of admission: 01/08/2025 Discharge date: 01/13/2025 Diagnosed:hypoxic respiratory failure *Send message to [place] Clinical Care Coordinators documented in this encounter Plan of Treatment Upcoming Encounters Date Type Department Care Team (Late st Contact Info) Description 08/31/2025 1:30 PM EDT Office Visit [facility] ADULT DENTAL [address] [place] [address] Julieth Torres 09/07/2025 2:45 PM EDT Office Visit [facility] MEDICINE [address] [place] [address] Kathy Villafana MD [address] [place] [address] 10/06/2025 2:30 PM EST Office Visit [facility] OPTOMETRY [address] [place] [address] Jenise Garcia, WILLIAM [address] [place] [address] documented as of this encounter Visit Diagnoses Not on filedocumented in this encounter Additional Health Concerns Assessment Noted Time PHQ-9 Depression Total Score: 0 02/20/20 24 2:34 PM EDT documented as of this encounter Care Teams Production Support Developer Relationship Specialty Start Date End Date Kathy Villafana MD [address] [place] [address], [place] [address] PCP - General Family Medicine 08/05/21 [facility] 12/04/24 Corinne [facility] 01/15/25 documented as of this encounter
--- OUTSIDE RECORDS SUMMARY | 2025-08-18 03:22 | XMS_ITS | Clinical Summary ---
Author Organization [employer] Address [address] [facility] 7[address] [place] [address] Care Team Providers Care Landing Support Specialist Name Role Phone Kathy Villafana MD [...] hyperglycemia, with long-term current use of insulin ([facility]) TEST BLOOD SUGAR THREE TIMES [...] complication, with long-term current use of insulin ([facility]) INJECT 76 UNITS SUBCUTANEOUSLY TWICE DAILY WITH BREAKFAST AND WITH DINNER 50 mL Active FREESTYLE LITE test stripIndications :Type 2 diabetes mellitus with diabetic neuropathy, with long-term current use of insulin ([facility]) TEST BLOOD SUGAR THREE TIMES [...] tablet 1 025 2024 Discontinued(T herapy completed) Active Problems Problem Noted Date Diagnosed Date [...] Villafana, here for a HDF Admitted to [facility] from 05/17-05/19/2024 Patient presented c/o dizziness and [...] sebaceous cysts on his back, his healthcare facility administrator recently drained one and although there is [...] will be referred to PT/OT clinic for necw-eu-duwm examination, and after evaluation by PT/OT will order a power mobility device. Chronic periodontitis 05/21/2023 Alzheimer's disease 01/22/2023 Assessment & Plan (05/21/2024 10:21 AM EDT): Continue Donepezil 10mg and Memantine 10mg daily Son is HOG OPERATOR, needs assistance with paperwork for medical power or securities attorney Decided against medical guardianship due to fears he would become responsible for debts of his father Continue day/night cycles Continue gentle redirection during hallucinations Assessment & Plan (06/15/2023 6:06 AM EDT): Continue Donepezil 10mg and Memantine 10mg daily Son is HOG OPERATOR, needs assistance with paperwork for medical power or securities attorney Decided against medical guardianship due to fears he would become responsible for debts of his father Continue day/night cycles Continue gentle redirection during hallucinations Assessment & Plan (01/25/2023 1:02 PM EST): Continue Donepezil 10mg Son is HOG OPERATOR and medical power or securities attorney Atrial fibrillation 01/22/2023 Assessment & Plan [...] Encounters Date Type Department Care Team Description 08/14/2025 Telephone [facility]INE [address] [facility] [place] [address] Kathy Villafana MD Appointment Request 08/07/2025 Orders Only [facility] MEDICINE [address] [facility] [place] [address] Kathy Villafana MD 08/07/2025 Refill C MEDICINE [address] [place] [phone] Kathy Villafana MD Atrial fibrillation, unspecified type (CMS/HCC) 08/05/2025 Telephone [facility] MEDICINE [address] [place] [phone] Kathy Villafana MD HDF appointment 08/05/2025 Telephone [facility] MEDICINE [address] [place] [phone] Kathy Villafana MD Error (VOID this visit) 08/05/2025 Refill [facility] CHC MED & PEDS [address] [place] [address] Kathy Villafana MD 08/03/2025 Telephone [facility] MEDICINE [address] [place] [phone] Kathy Villafana MD Hospital Follow-up 07/28/2025 Telephone [facility] MEDICINE [address] [place] [phone] Kathy Villafana MD FY 07/13/2025 Refill [facility] MEDICINE [address] [place] [phone] Kathy Villafana MD 07/07/2025 Telephone [facility] MEDICINE [address] [place] [phone] Kathy Villafana MD ER Follow-up 07/03/2025 Orders Only GENERIC EXTERNAL DATA DEPARTMENT Provider, Generic External Data 07/02/2025 Orders Only GENERIC EXTERNAL DATA DEPARTMENT Provider, Generic External Data 06/29/2025 Refill [facility] MED [facility] PEDS [address] [place] [address] Kathy Villafana MD 06/22/2025 Telephone [facility] MEDICINE [address] [place] [phone] Kathy Villafana MD Supplies 06/21/2025 Orders Only [...] Description 08/31/2025 1:30 PM EDT Office Visit [facility] ADULT DENTAL [address] [place] [address] TorresAntonysa 09/07/2025 2:45 PM EDT Office Visit [facility] MEDICINE [address] [place] [address] Kathy Villafana MD [address] [place] [address] 10/06/2025 2:30 PM EST Office Visit [facility] OPTOMETRY [address] [place], [place] [phone] Jenise Garcia, OD [address] [place] [address] Health Maintenance Due Date Last Done Comments [...] X-Ray: Bitewings 05/22/2024 05/21/2023 Diabetes: Hemoglobin A1C 12/23/202409/22/2 024, 07/10/2024, 02/20/2024, Additional history exists Depression Screening 02/19/2025 02/20/2024, 02/20/20 24 Diabetes: Foot Exam 02/19/2025 02/20/2024 Lipid Panel 02/19/2025 02/20/2024, 09/28/2021 SDOH Screening 02/19/2025 02/20/2024 COVID-19 Vaccine (2 - season) 2025 12/21/2021 Influenza Vaccine (#1) 2025 Eye Exam 08/29/2025 08/29/2024, 10/0 02/2024, 08/29/2024, Additional history exists Tobacco Screening 05/06/2026 [...] neuropathy, with long-term current use of insulin ([facility]) LIPID PANEL, STANDARD Routine 02/20/2024 3:00 PM EDT Type 2 diabetes mellitus with diabetic neuropathy, with long-term current use of insulin ([facility]) INTRAORAL - COMPLETE SERIES OF RADIOGRAPHIC IMAGES Routine 05/21/2023 2:30 PM EDT PERIODIC ORAL EVALUATION - ESTABLISHED PATIENT Routine 05/21/2023 2:30 PM EDT from Last 3 Months or Most Recently Relevant to Health Maintenance Results * (ABNORMAL) Urinalysis, Complete, with Reflex to Culture (07/03/2025 12:02 AM EDT) Only the most recent of2 resultswithin the time period is included. Color Urine Yellow [facility] Appearance Urine Cloudy [facility] PH 5.5 5.0 - 9.0 [facility] Glucose Urine UA >=1000(A) Negative mg/dL [facility] Urine Blood Trace(A) Negative [facility] Specific Rico - Urine 1.010 1.005 - 1.025 [facility] Urine Protein Trace Neg-Trace mg/dL [facility] Urine Ketones Negative Negative mg/dL [facility] Nitrite Urine Negative Negative [facility] Leukocyte Esterase Urine Large (3+)(A) Negative [facility] RBC Urine 0-2 0 - 2 /HPF [facility] Urine WBC >50(A) 0 - 5 /HPF [facility] Urine Squamous Epithelial Cell 0-2 0 - 2 /HPF [facility] Urine Bacteria 4+ None Seen [facility] Hyaline Casts, Urine 0-2 0 - 2 /LPF [facility] 07/03/2025 12:0 2 AM EDT 07/03/2025 12:10 AM EDT [facility] - 07/03/2025 12:18 AM EDT [id number], Catheterized us Generic External Data Provider LAB URINE ORDERAB LES Final Result Performing Organization Address City/State/[facility] Co de Phone Number [facility] [address] [place] [phone] * (ABNORMAL) Urinalysis w/reflex microscopic (07/03/2025 12:02 AM EDT) Color Urine Yellow [facility] Appearance Urine Cloudy [facility] PH 5.5 5.0 - 9.0 [facility] Glucose Urine UA >=1000(A) Negative mg/dL [facility] Urine Blood Trace(A) Negative [facility] Specific Rico - Urine 1.010 1.005 - 1.025 [facility] Urine Protein Trace Neg-Trace mg/dL [facility] Urine Ketones Negative Negative mg/dL [facility] Nitrite Urine Negative Negative [facility] Leukocyte Esterase Urine Large (3+)(A) Negative [facility] 07/03/2025 12:0 2 AM EDT 07/03/2025 12:10 AM EDT Narrative [facility] - 07/03/2025 12:15 AM EDT [id number], Catheterized Generic External Data Provider LAB URINE ORDERAB LES Final Result Performing Organization Address [facility] Co de Phone Number [facility] [address] [place] [phone] * Culture, Urine, Routine (07/03/2025 12:00 AM EDT) Only the most recent of2 resultswithin the time period is included. Urine Urine specimen from urinary conduit / Unknown 07/03/2025 07/03/2025 Comment:Urine Cath Narrative [facility] - 07/06/2025 7:22 AM EDT [...] GENERAL ORDERABLES Final Result Performing Organization Address [facility] Co de Phone Number [facility] [address] [place] [phone] * CT Head w/o Contrast (07/02/2025 10:31 PM EDT) Anatomical Region Laterality Modality Head, Neck Computed Tomogra phy 07/02/2025 10:3 1 PM EDT Narrative 07/02/2025 10:33 PM EDT [address] [address] [address] Scan Report Signed Patient: Dayton Oquendo MR#: [id number] : 1945 Acct:[id number] Age/Sex: 80 / M ADM Date: 07/02/25 Loc: HO.ED Attending Dr: Ordering Physician: Sofi Oneal Date of Service: 07/02/25 Procedure(s): CT head/brain wo IV con Accession Number(s): [id number] cc: Sofi Oneal; Kathy Villafana Report Number: [id number]: Total DLP = 772.04 mGy-cm CLINICAL HISTORY: [...] in OV> 07/02/252231 DD/ 30 TD/TT: 07/02/252230 Production Pattern Maker: Procedure Note Donotuseinterpreter, Image - 07/02/[address] [place] [address] [address] Scan Report Signed Patient: Dayton Oquendo AMR#: [id number] : 5Acct:[id number] Age/Sex: 80 / MADM Date: 07/02/25 Loc: .ED Attending Dr: Ordering Physician: Sofi Oneal Date of Service: 07/02/25 Procedure(s): CT head/brain wo IV con Accession Number(s): [id number] cc: Sofi Oneal; Kathy Villafana Report Number: [id number]: Total DLP = 772.04 mGy-cm CLINICAL HISTORY: [...] in OV> 07/02/252231 DD/ 30 TD/TT: 07/02/252230 Production Pattern Maker: [facility] External Provider IMG CT PROCEDURES Final Result * CT Cervical Spine w/o Contrast (07/02/2025 10:30 PM EDT) Anatomical Region Laterality Modality Spine, C-spine Computed Tomogra phy 07/02/2025 10:3 0 PM EDT Narrative 07/02/2025 10:32 PM EDT [place] [address] CT Scan Report Signed Patient: Dayton Oquendo MR#: [id number] : 1945 Acct:[id number] Age/Sex: 80 / M ADM Date: 07/02/25 Loc: .ED Attending Dr: Ordering Physician: Sofi Oneal Date of Service: 07/02/25 Procedure(s): CT cervical spine wo IV con Accession Number(s): [id number] cc: Sofi Oneal; Kathy Villafana Report Number: [id number]: Total DLP = 497.38 mGy-cm CLINICAL HISTORY: [...] in OV> 07/02/252230 DD/ 29 TD/TT: 07/02/252229 Production Pattern Maker: Procedure Note Donotuseinterpreter, Image - 07/02/[address] [address] [address] Scan Report Signed Patient: Dayton Oquendo AMR#: [id number] : 5Acct:[id number] Age/Sex: 80 / MADM Date: 07/02/25 Loc: HO.ED Attending Dr: Ordering Physician: Sofi Oneal Date of Service: 07/02/25 Procedure(s): CT cervical spine wo IV con Accession Number(s): [id number] cc: Sofi Oneal; Kathy Villafana Report Number: [id number]: Total DLP = 497.38 mGy-cm CLINICAL HISTORY: [...] in OV> 07/02/252230 DD/ 29 TD/TT: 07/02/252229 Production Pattern Maker: [facility] External Provider IMG CT PROCEDURES Final Result * High Sensitivity Troponin I (07/02/2025 8:00 PM EDT) Only the most recent of2 resultswithin the time period is included. TROPONIN I HIGH SENSITIVITY 6.7 <3.5 - 35.0 ng/L [facility] Comment:The Patel high sens itivity Troponin-I results should beused in conjunction with other diagnostic information suchas ECG, clinical observations and information, and patientsymptoms to aid in the diagnosis of CT. 07/02/2025 8:00 PM EDT 07/02/2025 8:07 PM EDT Generic External Data Provider LAB BLOOD ORDERAB LES Final Result [facility] [address] [place] [address] [phone] * (ABNORMAL) CBC auto differential (07/02/2025 8:00 PM EDT) Only the most recent of3 resultswithin the time period is included. White Blood Count 6.4 4.8 - 10.8 X10*3/uL [facility] Red Blood Count 3.92(L) 4.60 - 5.80 X10*6/uL [facility] Hemoglobin 9.5(L) 14.0 - 18.0 g/dl [facility] Hematocrit 32.3(L) 42.0 - 52.0 % [facility] Mean Corpuscular Volume 82.4 80.0 - 98.0 fL [facility] Mean Corpuscular Hemoglobin 24.2(L) 27.0 - 33.0 pg [facility] Mean Corpuscular HGB Conc 29.4(L) 31.0 - 36.0 g/dl [facility] Red Cell Distribution Width 18.0(H) 11.0 - 16.0 % [facility] Platelet Count 213 160 - 400 X10*3/uL [facility] Mean Platelet Volume 11.1 9.4 - 12.4 fL [facility] Neutrophils Percent Auto 61.6 45 - 73 % [facility] Imm Gran Pct Auto 0.2 0.0 - 0.4 % [facility] Lymphocytes Percent Auto 22.0 20 - 40 % [facility] Monocytes Percent Auto 10.7 2 - 11 % [facility] Eosinophils Percent Auto 4.4(H) 0 - 4 % [facility] Basophils Percent Auto 1.1 0 - 2 % [facility] NRBC Pct Auto 0.0 0.0 - 0.2 /100WBC [facility] Neutrophils Absolute Auto 3.9 2.0 - 8.3 x10*3/uL [facility] Imm Gran Abs Auto 0.01 0.00 - 0.03 X10*3/uL [facility] Lymphocytes Absolute Auto 1.4 1.2 - 4.9 X10*3/uL [facility] Monocytes Absolute Auto 0.7 0.1 - 1.2 X10*3/uL [facility] Eosinophils Absolute Auto 0.3 0.0 - 0.4 X10*3/uL [facility] Basophils Absolute Auto 0.1 0.0 - 0.2 X10*3/uL [facility] NRBC Abs Auto 0.000 0.0 - 0.012 X10*3/uL [facility] 07/02/2025 8:00 PM EDT 07/02/2025 8:07 PM EDT Generic External Data Provider LAB BLOOD ORDERAB LES Final Result Performing Organization Address [facility]/ZIP Co de Phone Number [facility] [address] [place] [phone] * (ABNORMAL) Partial Thromboplastin Time, Activated (APTT) (07/02/2025 8:00 PM EDT) Pathologist [facility] Partial Thromboplastin Time 34.4(H) 26.7 - 34.1 SEC [facility] 07/02/2025 8:00 PM EDT 07/02/2025 8:07 PM EDT Generic External Data Provider LAB BLOOD ORDERAB LES Final Result Performing Organization Address [facility]/ZIP Co de Phone Number [facility] [address] [place] [address] [phone] * (ABNORMAL) Comprehensive Metabolic Panel (07/02/2025 8:00 PM EDT) Only the most recent of3 resultswithin the time period is included. Pathologist [facility] Sodium 141 135 - 145 mmol/L [facility] Potassium 3.1(L) 3.3 - 5.1 mmol/L [facility] Chloride 98 96 - 108 mmol/L [facility] Carbon Dioxide 31(H) 22 - 29 mmol/L [facility] Anion Gap 15 12 - 20 [facility] Urea Nitrogen (BUN) 32(H) 9 - 16 mg/dL [facility] Creatinine, Serum 2.01(H) 0.5 - 1.4 mg/dL [facility] Creatinine Clr Calc Pharmacy 35.6 [facility] Comment:eGFR (calculated fro m the MDRD study equation) and eCrCl(calculated from the Cockcroft-Gault equation) are based ondifferent parameters and may not yield comparable results.If eCrCl result is absurd, please check patient'sheight/weight. Estimated Glomerular Filt Rate 32 [facility] Comment:Chronic Kidney Disea se: Estimated GFR < 60 mL/min/1.91z8Xdlozd Kidney Disease: Estimated GFR < 15 mL/min/1.73m2 Glucose 154(H) 60 - 115 mg/dL [facility] Calcium 8.9 8.4 - 10.2 mg/dL [facility] Bilirubin, Total 0.5 0.0 - 1.0 mg/dL [facility] Aspartate Amino Transferase 27 5 - 37 U/L [facility] Alanine Aminotransferase 12 0 - 40 U/L [facility] Total Protein 7.3 6.5 - 8.0 g/dL [facility] Albumin Level 3.7 3.5 - 5.0 g/dL [facility] Alkaline Phosphatase 100 39 - 117 U/L [facility] 07/02/2025 8:00 PM EDT 07/02/2025 8:07 PM EDT us Generic External Data Provider LAB BLOOD ORDERAB LES Final Result [facility] [address] [place], [place] [phone] * (ABNORMAL) Glucose, Whole Blood (06/21/2025 10:11 PM EDT) Only the most recent of12 resultswithin the time period is included. Glucose, Whole Blood 336(H) 60 - 115 mg/dL [facility] Comment:METER #: [id number] 06/21/2025 10:1 1 PM EDT 06/21/2025 10:15 PM EDT us Generic External Data Provider LAB BLOOD ORDERAB LES Final Result Performing Organization Address City/[facility]/ZIP Co de Phone Number [facility] [address] [place] [phone] * (ABNORMAL) VENOUS BLOOD GAS (05/23/2025 9:23 PM EDT) VBG pH 7.48(H) 7.32 - 7.43 [facility] Comment:METER #: [id number] additional_comment: Cb patlha VBG PCO2 42 mmHg [facility] Comment:METER #: [id number] additional_comment: Cb patlha VBG PO2 48 mmHg [facility] Comment:METER #: [id number] additional_comment: Cb patlha VBG Base Excess 7.4 mmol/L [facility] Comment:METER #: [id number] additional_comment: Cb patlha VBG HCO3 31(H) 22 - 26 mmol/L [facility] Comment:METER #: [id number] additional_comment: Cb patlha O2 Sat, Cas 72.0 % [facility] Comment:METER #: [id number] additional_comment: Cb patlha 05/23/2025 9:23 PM EDT 05/23/2025 9:26 PM EDT us Generic External Data Provider LAB BLOOD ORDERAB LES Final Result Performing Organization Address City/[facility]/ZIP Co de Phone Number [facility] [address] [place] [phone] * Beta-Hydroxybutyrate (05/23/2025 9:19 PM EDT) Beta-Hydroxybut yrate 0.18 0.02 - 0.27 mmol/L [facility] 05/23/2025 9:19 PM EDT 05/23/2025 9:22 PM EDT Generic External Data Provider LAB BLOOD ORDERAB LES Final Result Performing Organization Address [facility] de Phone Number [facility] [address] [place] [phone] * Magnesium (05/23/2025 9:19 PM EDT) Magnesium 2.3 1.6 - 2.6 mg/dL [facility] 05/23/2025 9:19 PM EDT 05/23/2025 9:22 PM EDT [facility] External Data Provider LAB BLOOD ORDERAB LES Final Result Performing Organization Address [facility] de Phone Number [facility] [address] [place] [address] [phone] * Hold Green Gel (05/23/2025 9:18 PM EDT) Hold Green Gel See Note [facility] Comment:Specimen held untest ed for 24 hours; Call to requestChemistry testing. 05/23/2025 9:18 PM EDT 05/23/2025 9:25 PM EDT Generic External Data Provider HISTORICAL/NON OR DERABLE LABS Final Result Performing Organization Address [facility] de Phone Number [facility] [address] [place] [phone] * (ABNORMAL) POCT HGB A1C (09/22/2024 2:39 PM EDT) Hemoglobin A1C 8.8(A) 4.0 - 6.0 % QC Media Lot # [id number] Lot# Expiration Date ,704 Blood 09/22/2024 2:39 PM EDT Kathy Villafana MD POINT OF CARE TEST ENTER/EDIT ORDERABLES Final Result * (ABNORMAL) Lipid Panel, Standard (02/20/2024 3:00 PM EDT) Triglycerides 186(H) <150 mg/dL [facility] Comment:Desirable Triglyceri de: less than 150 mg/dLBorderline High Triglyceride 150-199 mg/dLHigh Triglyceride: 200-499 mg/dLVery High Triglyceride: greater than or equal to 5OO mg/dL Cholesterol 159 <200 mg/dL [facility] Comment:Desirable Cholestero l: less than 200 mg/dLBorderline High Cholesterol: 200-239 mg/dLHigh Cholesterol: greater than 239 mg/dL LDL Cholesterol Calculated 78 <100 mg/dL [facility] Comment:Desirable LDL: less than 100 mg/dLNear Optimal/Above Optimal LDL: 110- 129 mg/dLBorderline High LDL: 130-159 mg/dLHigh LDL: 160-189 mg/dLVery High LDL: greater than or equal to 190 mg/dL HDL Cholesterol 44 >40 mg/dL [facility] Comment:Desirable HDL: great er than 40 mg/dL Note: This HDL assay may give artificially low results in patients with liver disease. Blood Venous blood specimen / Unknown 02/20/2024 3:00 PM EDT 02/20/2024 4:04 PM EDT Kathy Villafana MD LAB BLOOD ORDERABLES Final Res ult [facility] [address] [place] [phone] from Last 3 Months or Most Recently Relevant to Health Maintenance Insurance [facility] Member Subscriber Plan / Payer (Ef fective 2021-Present) Name:Dayton Oquendo Relation to Subscriber:Self Name:Nilo SimonncDayton burgess Payer ID:Not on file Group ID:Not on file Type:Not on file Address: [address] [employer] (HMO D-SNP) [place] [id number] [facility] Advance Directives Documents on File Type Date Recorded Patient Resort Desk Clerk Expl anation Advance Directives and Livin g Will 06/28/2023 Health Care Proxy Care Teams Landing Support Specialist Relationship Specialty Start Date End Date Kathy Villafana MD [address] [place] [address] PCP - General Family Medicine 08/05/21 [facility] 12/04/24 Corinne [facility] 01/15/25
--- OUTSIDE RECORDS SUMMARY | 2025-08-18 03:22 | XMS_ITS | Encounter Summary ---
Author Organization [employer] Address [address] [facility] [address] [place] [address] Care Team Providers Care Jackaroo Name Role Phone Kathy Villafana MD Primary Care Provider [phone] Encounter Details Date Type Department Care Team (Late st Contact Info) Description 11/17/2022 Orders Only [facility] CHC MED & PEDS [address] [place] [address] Mary Ann Skaggs LPN Social History Tobacco [...] Description 08/31/2025 1:30 PM EDT Office Visit [facility] ADULT DENTAL [address] [place] [address] Julieth Torres 09/07/2025 2:45 PM EDT Office Visit [facility] MEDICINE [address] [place] [address] Kathy Villafana MD [address] [place] [address] 10/06/2025 2:30 PM EST Office Visit [facility] OPTOMETRY [address] [place] [address] Jenise Garcia, OD [address] [place] [address] documented as of this encounter Visit Diagnoses Not on filedocumented in this encounter Care Teams Jackaroo Relationship Specialty Start Date End Date Kathy Villafana MD [address] [place] [address] PCP - General Family Medicine 08/05/21 [facility] 12/04/24 Corinne Kelvin 01/15/25 documented as of this encounter
--- OUTSIDE RECORDS SUMMARY | 2025-08-18 03:22 | XMS_ITS | Encounter Summary ---
Author Organization [facility] Address [address] [place] [address] Phone Care Team Providers Care Cattle Knocker Name Role Phone Kathy Villafana MD Primary Care Provider [phone] Reason for Visit * Reason Comments Med Refill Encounter Details Date Type Department Care Team (Late st Contact Info) Description 07/14/2022 Refill [facility] [address] [place] [phone] Salty Kim, DO [address] [place] [phone] Social History Tobacco Use Types Packs/Day Years [...] on filedocumented in this encounter Care Teams Cattle Knocker Relationship Specialty Start Date End Date Kathy Villafana MD PCP - General Embalmer Assistant 10/13/21 documented as of this encounter
--- OUTSIDE RECORDS SUMMARY | 2025-08-18 03:22 | XMS_ITS | Encounter Summary ---
Author Organization [employer] Address [address] [facility] 7t [place] [address] Care Team Providers Care Lorry Weigher Name Role Phone Kathy Villafana MD Primary Care Provider [phone] Reason for Visit * Reason Onset Date Comments difficulty with extraction 05/23/2023 Encounter Details Date Type Department Care Team (Late st Contact Info) Description 05/23/2023 Telephone [facility] ADULT DENTAL [address] [place], [place] [phone] Tr Tay DDS [address] [place], [place] [phone] difficulty with extraction Social History Tobacco Use [...] No room on PAR end. Can front facer help with scheduling . * Telephone Encounter [...] patient to be seen today. Called front facer. Recommended to contact you for insight documented in this encounter Plan of Treatment Upcoming Encounters Date Type Department Care Team (Late st Contact Info) Description 08/31/2025 1:30 PM EDT Office Visit [facility] ADULT DENTAL [address] [place] [address] Julieth Torres 09/07/2025 2:45 PM EDT Office Visit [facility] MEDICINE [address] [place] [address] Kathy Villafana MD [address] [place] [address] 10/06/2025 2:30 PM EST Office Visit [facility] OPTOMETRY [address] [place] [address] Jenise Garcia, OD [address] [place] [address] documented as of this encounter Visit Diagnoses Not on filedocumented in this encounter Additional Health Concerns Assessment Noted Time PHQ-9 Depression Total Score: 0 01/22/20 23 3:42 PM EST documented as of this encounter Care Teams Lorry Weigher Relationship Specialty Start Date End Date Kathy Villafana MD [address] [place] [address] PCP - General Family Medicine 08/05/21 [facility] 12/04/24 Corinne HOOKS 01/15/25 documented as of this encounter
--- OUTSIDE RECORDS SUMMARY | 2025-08-18 03:22 | XMS_ITS | Encounter Summary ---
Author Organization [employer] Address 75 [facility] 7t [place] [address] Care Team Providers Care Dividend Deposit Entry Clerk Name Role Phone Kathy Villafana MD Primary Care Provider [phone] Reason for Visit * Reason Onset Date Comments triage 12/06/2022 Encounter Details Date Type Department Care Team (Late st Contact Info) Description 12/06/2022 Telephone [facility] MEDICINE [address] [place], [place] [phone] Kathy Villafana MD [address] [place], [place] [phone] triage Social History Tobacco Use Types Packs/Day [...] No answer LVM to return call to [facility] triage line. * Telephone Encounter - Abhishek Herman - 12/06/2022 2:25 PM EST Symptom: Constipation Outcome: Schedule an appointment to be seen within 24 hours Reason: No high acuity concerns reported by caller The caller accepted this outcome speaks estonian documented in this encounter Plan of Treatment Upcoming Encounters Date Type Department Care Team (Late st Contact Info) Description 08/31/2025 1:30 PM EDT Office Visit [facility] ADULT DENTAL [address] [place] [address] TorresAntony lynsa 09/07/2025 2:45 PM EDT Office Visit [facility] MEDICINE [address] [place] [address] Kathy Villafana MD [address] [place] [address] 10/06/2025 2:30 PM EST Office Visit [facility] OPTOMETRY [address] [place], [place] [phone] Jenise Garcia, OD [address] [place] [address] documented as of this encounter Visit Diagnoses Not on filedocumented in this encounter Care Teams Dividend Deposit Entry Clerk Relationship Specialty Start Date End Date Kathy Villafana MD [address] [place] [address] PCP - General Family Medicine 08/05/21 [facility] 12/04/24 Corinne VNA 01/15/25 documented as of this encounter
--- OUTSIDE RECORDS SUMMARY | 2025-08-18 03:22 | XMS_ITS | Encounter Summary ---
Author Organization [employer] Address [address] [facility] [address] 7t [place] [address] Care Team Providers Care Commercial Print Salesman Name Role Phone Kathy Villafana MD Primary Care Provider [phone] Encounter Details Date Type Department Care Team ([facility] st Contact Info) Description 11/28/2023 Orders Only [facility] MEDICINE [address] [place], [place] [phone] Kathy Villafana MD [address] [place], [place] [phone] Social History Tobacco Use Types Packs/Day Years [...] Office Visit [facility] ADULT DENTAL [address] [place] [address] Julieth Torres 09/07/2025 2:45 PM EDT Office Visit [facility] MEDICINE [address] [place] [address] Kathy Villafana MD [address] [place] [address] 10/06/2025 2:30 PM EST Office Visit [facility] OPTOMETRY [address] [place] [address] Tarka, Jenise, OD [address] [place] [address] documented as of this encounter Visit Diagnoses Not on filedocumented in this encounter Additional Health Concerns Assessment Noted Time PHQ-9 Depression Total Score: 0 01/22/20 23 3:42 PM EST documented as of this encounter Care Teams Commercial Print Salesman Relationship Specialty Start Date End Date Kathy Villafana MD [address] [place] [address] PCP - General Family Medicine 08/05/21 [facility] 12/04/24 Corinne [facility] 01/15/25 documented as of this encounter
--- OUTSIDE RECORDS SUMMARY | 2025-08-18 03:22 | XMS_ITS | Encounter Summary ---
Author Organization [employer] Address [address] [facility] [address] 7t [place] [address] Care Team Providers Care Tar Distributor Operator Name Role Phone Kathy Villafana MD Primary Care Provider [phone] Encounter Details Date Type Department Care Team ([facility] st Contact Info) Description 02/09/2025 Telephone [facility] MEDICINE [address] [place], [place] [phone] Kathy Villafana MD [address] [place], [place] [phone] Social History Tobacco Use Types Packs/Day Years [...] Description 08/31/2025 1:30 PM EDT Office Visit [facility] ADULT DENTAL [address] [place] [address] Julieth Torres 09/07/2025 2:45 PM EDT Office Visit [facility] MEDICINE [address] [place] [address] Kathy Villafana MD [address] [place] [address] 10/06/2025 2:30 PM EST Office Visit [facility] OPTOMETRY [address] [place] [address] TarkaJenise, OD [address] [place] [address] documented as of this encounter Visit Diagnoses Not on filedocumented in this encounter Additional Health Concerns Assessment Noted Time PHQ-9 Depression Total Score: 0 02/20/20 24 2:34 PM EDT documented as of this encounter Care Teams Tar Distributor Operator Relationship Specialty Start Date End Date Kathy Villafana MD [address] [place] [address] PCP - General Family Medicine 08/05/21 [facility] 12/04/24 Corinne [facility] 01/15/25 documented as of this encounter
--- OUTSIDE RECORDS SUMMARY | 2025-08-18 03:22 | XMS_ITS | Encounter Summary ---
Author Organization [employer] [facility] Address [address] [place] [address] 7t [place] [address] Care Team Providers Care Director Drug Name Role Phone Kathy Villafana MD Primary Care Provider [phone] Reason for Visit * Reason Comments Med Refill Encounter Details Date Type Department Care Team (Late st Contact Info) Description 08/18/2023 Refill [facility] MEDICINE [address] [place] [address] [phone] Kathy Villafana MD [address] [place] [address] [phone] Social History Tobacco Use Types Packs/Day Years [...] 1:30 PM EDT Office Visit [facility] ADULT DENTAL [address] [place] [address] [phone] Julieth Torres 09/07/2025 2:45 PM EDT Office Visit [facility] MEDICINE [address] [place] [address] [phone] Kathy Villafana MD [address] [place], [place] [phone] 10/06/2025 2:30 PM EST Office Visit [facility] OPTOMETRY [address] [place], [place] [phone] Jenise Garcia, OD [address] [place] [address] documented as of this encounter Visit Diagnoses Not on filedocumented in this encounter Additional Health Concerns Assessment Noted Time PHQ-9 Depression Total Score: 0 01/22/20 23 3:42 PM EST documented as of this encounter Care Teams Director Drug Relationship Specialty Start Date End Date Kathy Villafana MD [address] [place], [place] [phone] PCP - General Family Medicine 08/05/21 [facility] 12/04/24 [place] [facility] 01/15/25 documented as of this encounter
--- OUTSIDE RECORDS SUMMARY | 2025-08-18 03:22 | XMS_ITS | Encounter Summary ---
Author Organization [employer] Address [address] [facility] [address] 7t [place] [address] Care Team Providers Care Specimen Boss Name Role Phone Kathy Villafana MD Primary Care Provider [phone] Encounter Details Date Type Department Care Team ([facility] st Contact Info) Description 11/14/2023 Orders Only [facility] MEDICINE [address] [place], [place] [phone] Kathy Villafana MD [address] [place], [place] [phone] Social History Tobacco Use Types Packs/Day Years [...] [facility] AD[facility] [address] [place] [address] Julieth Torres 09/07/2025 2:45 PM EDT Office Visit [facility] MEDICINE [address] [place] [address] Kathy Villafana MD [address] [place] [address] 10/06/2025 2:30 PM EST Office Visit [facility] OPTOMETRY [address] [place] [address] Tarka, Jenise, OD [address] [place] [address] documented as of this encounter Visit Diagnoses Not on filedocumented in this encounter Additional Health Concerns Assessment Noted Time PHQ-9 Depression Total Score: 0 01/22/20 23 3:42 PM EST documented as of this encounter Care Teams Specimen Boss Relationship Specialty Start Date End Date Kathy Villafana MD [address] [place] [address] PCP - General Family Medicine 08/05/21 [facility] 12/04/24 Corinne [facility]NA 01/15/25 documented as of this encounter
--- OUTSIDE RECORDS SUMMARY | 2025-08-18 03:22 | XMS_ITS | Encounter Summary ---
Author Organization [employer] Address [address] [facility] [address] 7[address] [place] [address] Care Team Providers Care Tail End Rider Name Role Phone Kathy Villafana MD Primary Care Provider [phone] Encounter Details Date Type Department Care Team ([facility] st Contact Info) Description 08/07/2025 Orders Only [facility] MEDICINE [address] [place], [place] [phone] Kathy Villafana MD [address] [place], [place] [phone] Social History Tobacco Use Types Packs/Day Years [...] Description 08/31/2025 1:30 PM EDT Office Visit [facility] ADULT DENTAL [address] [place] [address] Julieth Torres 09/07/2025 2:45 PM EDT Office Visit [facility] MEDICINE [address] [place] [address] Kathy Villafana MD [address] [place] [address] 10/06/2025 2:30 PM EST Office Visit [facility] OPTOMETRY [address] [place] [address] TarkaJenise, OD [address] [place] [address] documented as of this encounter Visit Diagnoses Not on filedocumented in this encounter Additional Health Concerns Assessment Noted Time PHQ-9 Depression Total Score: 0 02/20/20 24 2:34 PM EDT documented as of this encounter Care Teams Tail End Rider Relationship Specialty Start Date End Date Kathy Villafana MD [address] [place] [address] PCP - General Family Medicine 08/05/21 [facility] 12/04/24 Corinne [facility]NA 01/15/25 documented as of this encounter
--- OUTSIDE RECORDS SUMMARY | 2025-08-18 03:22 | XMS_ITS | Encounter Summary ---
Author Organization [employer] Address 75 [facility] 7t [place] [address] Care Team Providers Care Realtime Captioner Name Role Phone Kathy Villafana MD Primary Care Provider [phone] Reason for Visit * Reason Onset Date Comments Appointment Request 08/14/2025 Encounter Details Date Type Department Care Team ([facility] st Contact Info) Description 08/14/2025 Telephone [facility] MEDICINE [address] [place], [place] [phone] Kathy Villafana MD [address] [place], [place] [phone] Appointment Request Social History Tobacco Use Types [...] encounter Miscellaneous Notes * Telephone Encounter - Mirian Alvarez RN - 08/14/2025 3:25 PM EDT TC placed to patient EC ([facility]) using BLS #ID [id number] on HIPAA [phone] regarding below message. EC informed this RN that he has to change to patient appt at his PCP office d/t a surgeon appt on the same day. RN rescheduled the appt with patient PCP. EC agreed to the appt. PT to F/U PRN. * Telephone Encounter - Stan Goodman - 08/14/2025 2:51 PM EDT Tc from pt son requesting to reschedule apt that was scheduled on 08/19 , as pt had back surgery andhas to see surgeon on same day Contact pt son at [phone] documented in this encounter Plan of Treatment Upcoming Encounters Date Type Department Care Team (Late st Contact Info) Description 08/31/2025 1:30 PM EDT Office Visit [facility] ADULT DENTAL [address] [place] [address] Julieth Torres 09/07/2025 2:45 PM EDT Office Visit [facility] MEDICINE [address] [place] [address] Kathy Villafana MD [address] [place] [address] 10/06/2025 2:30 PM EST Office Visit [facility] OPTOMETRY [address] [place] [address] Jenise Garcia, OD [address] [place] [address] documented as of this encounter Visit Diagnoses Not on filedocumented in this encounter Additional Health Concerns Assessment Noted Time PHQ-9 Depression Total Score: 0 02/20/20 24 2:34 PM EDT documented as of this encounter Care Teams Realtime Captioner Relationship Specialty Start Date End Date Kathy Villafana MD [address] [place], [place] [phone] PCP - General Family Medicine 08/05/21 [facility] 12/04/24 [place] [facility] 01/15/25 documented as of this encounter
--- NOTE | 2025-08-18 03:28 | ED.PEDSOB ---
HPI - Pediatric SOB/Dyspnea General Chief Complaint: Dyspnea Stated Complaint: SOB Time Seen by Provider: 08/18/25 03:15 Source: patient, family, EMS, RN notes reviewed, old records reviewed and taffy candy maker Mode of arrival: EMS Limitations: language barrier and altered mental status (dementia) History of Present Illness ED Provider: Dr. Lou Odonnell HPI Narrative: 80-year-old male with a history of dementia, renal insufficiency, Insulin-dependent diabetes, hypertension, hyperlipidemia, prior NSTEMI, gout, CAD, presenting with shortness of breath from home. Patient was brought in by EMS. Evidently family called because the patient was short of breath tonight. It is unclear at what time his symptoms started. EMS arrived at the home and the patient was lying flat. When they sat him up his breathing improved in his oxygen saturation was 95-97%. Patient is unable to give any history secondary to his dementia. He has no complaints at this time. Related Data Home Medications ?Medication ?Instructions ?Recorded ?Confirmed donepezil 10 mg tablet 10 mg PO BEDTIME 09/05/21 07/21/25 usphlzzc-iqj-ixizr acid 0.4 1 tab PO DAILY 09/05/21 07/21/25 mg-lycopene 300 mcg-lutein 250 mcg tablet (CertaVite Senior) allopurinol 100 mg tablet 50 mg PO DAILY gout pain 10/07/21 07/21/25 insulin syringe-needle U-100 1 mL #10 ea 12/22/21 03/08/25 31 gauge x 5/16 memantine 10 mg tablet 10 mg PO BID 05/08/22 07/21/25 cetirizine 10 mg tablet 10 mg PO DAILY congestion 08/17/23 07/21/25 omeprazole 20 mg capsule,delayed 20 mg PO BID@0630,1630 05/17/24 07/21/25 release sucralfate 1 gram tablet 1 g PO TIDAC 05/17/24 07/21/25 magnesium oxide 250 mg PO DAILY 11/25/24 07/21/25 insulin aspar prt-insulin aspart 76 unit subcut BIDWM 12/24/24 07/21/25 100 unit/mL (70-30) subcutaneous soln (Novolog Mix 70-30 U-100 Insuln) diphenhydramine HCl 25 mg tablet 12.5 mg PO BEDTIME PRN Allergy 01/08/25 07/21/25 (Nell-Dryl) Symptoms dapagliflozin propanediol 5 mg 5 mg PO DAILY 02/27/25 07/21/25 tablet (Farxiga) amlodipine 2.5 mg tablet 2.5 mg PO DAILY 03/08/25 07/21/25 gabapentin 800 mg tablet 800 mg PO BID 07/21/25 07/21/25 insulin aspar prt-insulin aspart 1 sliding scale dose subcut 08/12/25 100 unit/mL (70-30) subcutaneous USEASDIRECTD soln (Novolog Mix 70-30 U-100 Insuln) qqjpmdqr-qsl-zqpji acid 0.4 1 tab PO DAILY 08/12/25 mg-lycopene 300 mcg-lutein 250 mcg tablet (Cerovite Senior) Previous Rx's ?Medication ?Instructions ?Recorded atorvastatin 40 mg tablet (Lipitor) 40 mg PO BEDTIME #30 tabs 09/09/21 lancets (Lancets,Ultra Thin) #100 ea 10/21/21 aspirin 81 mg chewable tablet 81 mg PO DAILY #60 tabs 12/03/24 polyethylene glycol 3350 17 17 g PO DAILY #119 grams 04/26/25 gram/dose oral powder (Miralax) tamsulosin 0.4 mg capsule (Flomax) 0.4 mg PO BEDTIME 90 days #90 caps 05/26/25 finasteride 5 mg tablet 5 mg PO DAILY 90 days #90 tabs 07/07/25 apixaban 2.5 mg tablet (Eliquis) 2.5 mg PO BID #90 tabs 07/24/25 furosemide 40 mg tablet (Lasix) 40 mg PO DAILY #90 tabs 07/24/25 metoprolol tartrate 25 mg tablet 25 mg PO BID #180 tabs 07/24/25 Allergies Allergy/AdvReac Type Severity Reaction Status Date / Time No Known Allergies Allergy Verified 08/18/25 02:07 Pediatric Review of Systems Limitations: Yes ROS unobtainable due to patients medical condition PMFSH Past Medical History Medical History Abscess of back Cardiomyopathy Class 1 obesity Chronic anemia CHF (congestive heart failure) Alzheimer's dementia Chronic atrial fibrillation CKD stage 3b, GFR 30-44 ml/min CHF exacerbation Diabetes mellitus Acute hypoxic respiratory failure Pneumonia Pneumonia Acute respiratory failure Hypoxia CAD (coronary artery disease) Trash foot Diabetic foot infection Heart failure with preserved ejection fraction HLD (hyperlipidemia) Atrial fibrillation NSTEMI (non-ST elevated myocardial infarction) Kidney failure Diabetes HTN (hypertension) Surgical History Status post laser cataract surgery of both eyes No pertinent past surgical history Family History Family History Father No problems noted. Mother No problems noted. Social History Social History Household Members: Family Household Members Other:: sons and daughter in law Housing: House Do you presently have visiting nurse or other home services: Yes Alcohol intake: never Patient Tobacco Use Status: Never used Tobacco Smoked in Last 30 Days: No e-Cigarette/Vaping Use: Never Used Second Hand Smoke Exposure: No Advance Directives: Yes Advance Directives on File: Yes Advance Directives Date on File: 09/06/21 service: No Current occupational status: retired Pediatric Exam Narrative: Physical exam: GENERAL: Chronically ill-appearing, moderate respiratory distress. SKIN: Normal skin color for ethnicity, warm, dry, no rashes noted. HEENT: Normocephalic, atraumatic, no stridor, EOMI. NECK: Soft, supple, full ROM, midline structures nontender, no step-offs, no deformities, no lymphadenopathy. CHEST: Heart regular tachycardia, symmetric chest rise and fall. PULMONARY: Coarse lung sounds bilaterally, diminished at the bases, moderate respiratory distress with poor air movement, no wheezes. ABDOMINAL: Soft, protuberant nontender, quiet bowel sounds in all quadrants. : Deferred. MUSCULOSKELETAL: Normal tone, full range of motion, no deformities, 2+ peripheral edema bilaterally. NEURO: Alert and oriented to person, CN II through XII intact, no focal neurologic deficits. PSYCHIATRIC: Anxious affect, appropriate demeanor. General: Limitations: language barrier and altered mental status (dementia) Medical Decision Making Medical Decision Making MDM Narrative: Patient presents today with chief complaint of shortness of breath. Differential diagnosis includes, but is not limited to, upper respiratory infection, pneumonia, COPD exacerbation, asthma exacerbation, CHF, pneumothorax, pleural effusion, pulmonary embolism, ACS. Broad-based work-up will be initiated to evaluate for etiology of patient's symptoms. 4:55 AM 08/18/2025 (Dr. Lou Odonnell, Lorenzo.O.) patient has an elevated BNP suggestive of CHF exacerbation. His x-ray does show bilateral pleural effusions. Red blood cells are low with a hemoglobin of 7.7, down about 2 g from previous at the beginning of this month. He has no active bleeding. Awaiting the rest of his blood work. Anticipate admission for CHF exacerbation. Differential Diagnosis Differential Diagnoses: The differential diagnosis associated with the presentation includes (As above) Admission/Observation Consideration of admission/observation: Escalation of care including admission/observation considered Consult Healthcare Provider Management of the patient was discussed with: Hospitalist Lab Data MDM Lab Attestation statement: I reviewed the patient's lab results. 08/18/25 02:35 Labs: Lab Results 08/18/25 Range/Units 02:35 WBC 8.2 (4.8-10.8) X10*3/uL RBC 3.25 L (4.60-5.80) X10*6/uL Hgb 7.7 L (14.0-18.0) g/dl Hct 25.8 L (42.0-52.0) % MCV 79.4 L (80.0-98.0) fL MCH 23.7 L (27.0-33.0) pg MCHC 29.8 L (31.0-36.0) g/dl RDW 18.6 H (11.0-16.0) % Plt Count 188 (160-400) X10*3/uL MPV 11.9 (9.4-12.4) fL Immature Gran % (Auto) 0.2 (0.0-0.4) % Neut % (Auto) 73.0 (45-73) % Lymph % (Auto) 16.0 L (20-40) % [place] % (Auto) 7.2 (2-11) % Eos % (Auto) 3.0 (0-4) % Baso % (Auto) 0.6 (0-2) % Lymph # (Auto) 1.3 (1.2-4.9) X10*3/uL [place] # (Auto) 0.6 (0.1-1.2) X10*3/uL Eos # (Auto) 0.3 (0.0-0.4) X10*3/uL Baso # (Auto) 0.1 (0.0-0.2) X10*3/uL Abs Immat Gran (auto) 0.02 (0.00-0.03) X10*3/uL Absolute Neuts (auto) 6.0 (2.0-8.3) x10*3/uL Absolute Nucleated RBC 0.000 (0.0-0.012) X10*3/uL Nucleated RBC % (auto) 0.0 (0.0-0.2) /100WBC Troponin I High Sens 6.4 (<3.5-35.0) ng/L NT-Pro-B Natriuret Pep 6270.9 H (<300) pg/mL Independent Interpretation I performed an independent interpretation of an: EKG Interpretation: My independent interpretation of the ECG reveals slow atrial fibrillation with a rate of 58, normal axis, normal intervals, no ST elevations or depressions to suggest ischemic changes, relatively unchanged from previous on 07/27/2025. Radiology Impression Discussion of test interpretation with radiology: I have reviewed the radiologist's reading. Radiologist Impression: 1 view chest x-ray Comparison: CR - XR CHEST 2V - 07/20/25 22:10 EDT Findings: Bilateral basilar infiltrates or edema and small layering pleural effusions. Cardiac silhouette is enlarged. No acute fracture. IMPRESSION: Bilateral basilar infiltrates or edema and small layering pleural effusions. Independent Historian Clinical information obtained from an independent historian. History obtained from or confirmed by: EMS External Record Review External record reviewed: Inpatient record Chronic Conditions Patient?s care impacted by: Diabetes, Hypertension and Other (Dementia, CAD) Discharge Plan Discharge Clinical Impression: Acute exacerbation of CHF (congestive heart failure), Acute dyspnea Patient Disposition: Admitted As Inpatient Print Language: Japanese
[2025-08-18 04:58] LABS: Calcium 8.9 mg/dL (8.4-10.2); Chloride 101 mmol/L (96-108); Potassium 4.2 mmol/L (3.3-5.1); Sodium 139 mmol/L (135-145)
[2025-08-18] MEDS: Furosemide 40 MG/4 ML VIAL IVPUSH (05:35)
--- NOTE | 2025-08-18 05:39 | PM.IMHP ---
History of Present Illness Date of Service: 08/18/25 Attending physician on admission: Luis Alfredo Clark Chief Complaint: SOB Patient is an 80-year-old Greek-speaking male with a past medical history significant for dementia, AFib on Eliquis, HFpEF, BPH, NSTEMI, gout, CAD, CKD 3B and history upper GI bleed, who presented to the ED due to shortness of breath via EMS. When EMS arrived the patient was short of breath however after sitting upwards he had improvement, oxygenation between 95-97%. The onset of symptoms is unclear as the patient has dementia and is unable to provide much history at this time as he is also very drowsy, family members also unsure of the timeline. The patient is currently not expressing any complaints. Workup in the emergency department significant for elevated BNP and pulmonary edema on imaging. Hemoglobin 7.7, down from 9.1 on 07/27/25. He does have a history of GI bleed but expresses no active bleeding sources. Patient was given 40 mg IV Lasix and we will be admitted for acute CHF exacerbation with acute on chronic anemia. Review of Systems Review of Systems: Yes Unobtainable due to mental condition and Unobtainable due to mental status [facility] Medical History (Updated 08/18/25 @ 05:54 by Alona Muñiz PA-C) Abscess of back Cardiomyopathy Class 1 obesity Chronic anemia CHF (congestive heart failure) Alzheimer's dementia Chronic atrial fibrillation CKD stage 3b, GFR 30-44 ml/min CHF exacerbation Diabetes mellitus Acute hypoxic respiratory failure Pneumonia Pneumonia Acute respiratory failure Hypoxia CAD (coronary artery disease) Trash foot Diabetic foot infection Heart failure with preserved ejection fraction HLD (hyperlipidemia) Atrial fibrillation NSTEMI (non-ST elevated myocardial infarction) Kidney failure Diabetes HTN (hypertension) Family History Father No problems noted. Mother No problems noted. Surgical History Status post laser cataract surgery of both eyes No pertinent past surgical history Social History Household Members: Family Household Members Other:: sons and daughter in law Housing: House Do you presently have visiting nurse or other home services: Yes Alcohol intake: never Patient Tobacco Use Status: Never used Tobacco Smoked in Last 30 Days: No e-Cigarette/Vaping Use: Never Used Second Hand Smoke Exposure: No Advance Directives: Yes Advance Directives on File: Yes Advance Directives Date on File: 09/06/21 service: No Current occupational status: retired Meds Allergies Allergy/AdvReac Type Severity Reaction Status Date / Time No Known Allergies Allergy Verified 08/18/25 02:07 Active Medications: Current Medications Acetaminophen (Acetaminophen 325 Mg Tablet) 975 mg PO Q6H PRN PRN Reason: Pain, Mild 1-3,fever,headache Calcium Carbonate (Calcium Carbonate 750 Mg Tab.Chew) 750 mg PO Q4H PRN PRN Reason: Heartburn Dextrose (Dextrose 50 % 25 Gm/50 Ml Syringe) 25 gm IVPUSH Q15M PRN; Protocol PRN Reason: per Hypoglycemia Standing Ord. Glucose (Glucose Gel 15 Gm Gel..Gram.) 15 gm PO Q15M PRN; Protocol PRN Reason: per Hypoglycemia Standing Ord. Insulin Glargine (Insulin Glargine,Hum.Rec.Anlog 100 Unit/Ml 10 Ml Vial) 15 unit SUBCUT BEDTIME REYNALDO Insulin Human Lispro (Insulin Lispro 100 Unit/Ml 3 Ml Vial) 0 unit SUBCUT QIDACHS REYNALDO; Protocol Magnesium Hydroxide (Milk Of Magnesia 30 Ml Oral.Susp) 30 ml PO DAILY PRN PRN Reason: Constipation Melatonin (Melatonin 3 Mg Tablet) 6 mg PO BEDTIME PRN PRN Reason: Insomnia Ondansetron HCl (Ondansetron Hcl 4 Mg/2 Ml Vial) 4 mg IVPUSH Q8H PRN PRN Reason: Nausea and Vomiting Oxycodone HCl (Oxycodone Hcl Immed Release 5 Mg Tablet) 5 mg PO Q6H PRN PRN Reason: Pain, Severe (Pain Scale 7-10) Sodium Chloride (0.9 % Sodium Chloride Flush 3 Ml Syringe) 3 ml IVFLUSH QSHIFT REYNALDO Tramadol HCl (Tramadol Hcl 50 Mg Tablet) 50 mg PO Q6H PRN PRN Reason: Pain, Moderate(Pain Scale 4-6) Home Medications ?Medication ?Instructions ?Recorded ?Confirmed ?Last Taken ?Type donepezil 10 mg tablet 10 mg PO BEDTIME 09/05/21 07/21/25 02/27/25 History jcazcbgf-nxe-kusnd acid 0.4 1 tab PO DAILY 10/11/21 08/26/25 04/04/25 History mg-lycopene 300 mcg-lutein 250 mcg tablet ([facility]) allopurinol 100 mg tablet 50 mg PO DAILY gout pain 10/07/21 07/21/25 02/27/25 History insulin syringe-needle U-100 1 mL #10 ea 12/22/21 03/08/25 02/27/25 History 31 gauge x 16 memantine 10 mg tablet 10 mg PO BID 05/08/22 07/21/25 02/27/25 History cetirizine 10 mg tablet 10 mg PO DAILY congestion 08/17/23 07/21/25 02/27/25 History omeprazole 20 mg capsule,delayed 20 mg PO BID@0630,1630 05/17/24 07/21/25 02/27/25 History release sucralfate 1 gram tablet 1 g PO TIDAC 05/17/24 07/21/25 02/27/25 History magnesium oxide 250 mg PO DAILY 11/25/24 07/21/25 02/27/25 History insulin aspar prt-insulin aspart 76 unit subcut BIDWM 12/24/24 07/21/25 02/27/25 History 100 unit/mL (70-30) subcutaneous soln (Novolog Mix 70-30 U-100 Insuln) diphenhydramine HCl 25 mg tablet 12.5 mg PO BEDTIME PRN Allergy 01/08/25 07/21/25 02/27/25 History (Nell-Dryl) Symptoms dapagliflozin propanediol 5 mg 5 mg PO DAILY 02/27/25 07/21/25 02/27/25 History tablet (Farxiga) amlodipine 2.5 mg tablet 2.5 mg PO DAILY 03/08/25 07/21/25 Unknown History gabapentin 800 mg tablet 800 mg PO BID 07/21/25 07/21/25 Unknown History insulin aspar prt-insulin aspart 1 sliding scale dose subcut 08/12/25 Unknown History 100 unit/mL (70-30) subcutaneous USEASDIRECTD soln (Novolog Mix 70-30 U-100 Insuln) ebnwaktu-huc-ckexs acid 0.4 1 tab PO DAILY 08/12/25 Unknown History mg-lycopene 300 mcg-lutein 250 mcg tablet (Cer[employer]ite Senior) Physical Exam Vital Signs and Narrative: Vital Signs: Last Vital Signs Temp 97.6 F 08/18/25 05:34 Pulse 68 08/18/25 05:34 Resp 13 08/18/25 05:34 BP 135/68 08/18/25 05:35 Pulse Ox 93 08/18/25 05:34 O2 Del Method Room Air 08/18/25 05:34 BMI result Body Mass Index 34.3 General: Alert, unable to determine orientation, iPad for interpretation used and pt could hear but would not follow along with conversation, no acute distress Resp: crackles bilteral lower lungs, no wheezing CVS: S1, S2, bradycardic, irregularly irregular GI: +BS, NT, no distention Skin: Warm, dry Neuro: Cranial nerves II-XII grossly intact bilaterally. Motor grossly intact bilaterally Extremities: No pitting edema Psych: Appropriate affect Results Labs 08/18/25 02:35 08/18/25 04:36 Labs: Laboratory Results - last 24 hr 08/18/25 08/18/25 02:35 04:36 MCV 79.4 L MCH 23.7 L MCHC 29.8 L RDW 18.6 H Plt Count 188 MPV 11.9 Immature Gran % (Auto) 0.2 Neut % (Auto) 73.0 Lymph % (Auto) 16.0 L Letcher % (Auto) 7.2 Eos % (Auto) 3.0 Baso % (Auto) 0.6 Lymph # (Auto) 1.3 Letcher # (Auto) 0.6 Eos # (Auto) 0.3 Baso # (Auto) 0.1 Abs Immat Gran (auto) 0.02 Absolute Neuts (auto) 6.0 Absolute Nucleated RBC 0.000 Nucleated RBC % (auto) 0.0 Anion Gap 14 Estim Creat Clear Calc 33.7 Estimated GFR 30 Random Glucose 179 H Calcium 8.9 Magnesium 2.7 H Troponin I High Sens 6.4 NT-Pro-B Natriuret Pep 6270.9 H Assessment and Plan (1) Acute exacerbation of CHF (congestive heart failure): Status: Acute (2) Pleural effusion: Status: Acute (3) Acute on chronic anemia: Status: Acute (4) CKD stage 3b, GFR 30-44 ml/min: Status: Chronic (5) Class 2 obesity: Status: Acute Plan Patient is an 80-year-old male with a past medical history significant for dementia, AFib on Eliquis, HFpEF, BPH, NSTEMI, gout, CAD, CKD 3B and history upper GI bleed, who presented to the ED due to shortness of breath via EMS. Acute CHF exacerbation with bilateral pleural effusions - no leukocytosis, vitals stable, afebrile, no infection identified - chest x-ray with Bilateral basilar infiltrates or edema and small layering pleural effusions. - BNP elevated at 6270.9 - EKG with chronic AFib, rate controlled - troponin negative - patient is started on 40 mg IV Lasix in ED - re-assess need for further diuretics by day team - last echo 06/2025 with EF 60% - monitor on telemetry Acute on chronic anemia - hemoglobin 7 0.7 from 9.1 on 07/27/2025 - no obvious bleeding sources at this time - check iron - check fecal occult blood test - hold Eliquis pending above testing Type 2 diabetes - diabetic diet - sliding scale insulin - Lantus nightly Chronic AFib - EKG with AFib, rate controlled - hold metoprolol - hold Eliquis pending anemia evaluation CKD 3B - cr near baseline, 2.15 - no IVF due to fluid overload - monitor BMP - avoid nephrotoxins when possible class 2 obesity - BMI 34.3 - weight loss encouraged BPH - continue finasteride and Flomax HTN - continue amlodipine CAD - continue statin Gout - continue allopurinol Med rec pending Full code VTE prophylaxis: Pneumoboots pending anemia evaluation Patient with acute CHF exacerbation with bilateral pleural effusions complicated by acute on chronic anemia, requiring admission for at least 2 midnight stay for diuresis, monitoring and further evaluation. Quality Stroke Does the patient have a stroke diagnosis?: No VTE Prior VTE?: No VTE Risk Level:: Medical - moderate - high VTE Device Contraindication: N/A - Device Ordered VTE Drug Contraindication: Treatment Not Indicated
--- NOTE | 2025-08-18 06:52 | HO.NURTONUR ---
Pt is 80 Japanese speaking alert male but confused biba from home family reports difficulty breathing. O2 on room 93-95%. BNP 6270, 22 right hand meds given in ed lasix. male purewick history of dementia, renal insufficiency, Insulin-dependent diabetes, hypertension, hyperlipidemia, prior NSTEMI, gout, CAD
--- NOTE | 2025-08-18 09:29 | PHA.MEDREC ---
Addendum entered by Urbano Davila PharmD 08/18/25 09:37: reviewed Original Note: Pharmacy Consult ? Medication Reconciliation Pharmacy has completed the medication reconciliation. Patient is a poor historian due to dementia. Tried calling patient son , however had to leave a voicemail. Utilized claims and discharge packet from 07/24/25 to confirm med list. Will update with any changes if/when son calls back.
[2025-08-18] MEDS: 0.9 % Sodium Chloride Flush 3 ML SYRINGE IVFLUSH ×2 (10:33→22:29)
[2025-08-18 11:39] LABS: Glucose, Whole Blood 114 mg/dL (60-115)
--- NOTE | 2025-08-18 11:57 | MHC.CM.PN ---
PT WITH DEMENTIA, CM CALLED PRIMARY CONTACT/[id number], DHARA [phone] SHE REPORTS PT LIVES WITH HER AND HER HE HAS 50.25 NEURORADIOLOGIST HOURS PER WEEK, BUT THEY PROVIDE 24/7 CARE HCP ON FILE PCP: DANELLE JULES REPORTS PT HAS NOT BEEN WALKING LATELY DUE TO SOB AND SEIZURES DCP: HOME RESUME 24/7 CARE VS STR BLS TRANSPORT REQUIRED FOR EITHER DISPO
--- NOTE | 2025-08-18 13:03 | PM.EVENT ---
Event Note Date of Service: 08/18/25 Event Note: 80-year-old male with a past medical history significant for dementia, AFib on Eliquis, HFpEF, BPH, NSTEMI, gout, CAD, CKD 3B and history upper GI bleed, who presented to the ED due to shortness of breath via EMS. Acute CHF exacerbation with bilateral pleural effusions no leukocytosis, vitals stable, afebrile, no infection identified chest x-ray with Bilateral basilar infiltrates or edema and small layering pleural effusions. ProBNP elevated at 6270.9 EKG with chronic AFib, rate controlled troponin negative last echo 06/2025 with EF 60%, repeat pending Lasix IV 40 mg BID cardiology consult Acute on chronic iron def anemia hemoglobin 7 from 9.1 on 07/27/2025 no obvious bleeding sources at this time iron 18 hold Eliquis pending above testing I unit PRBC ordered, lasix after Type 2 diabetes diabetic diet sliding scale insulin Lantus Chronic AFib EKG with AFib, rate controlled hold metoprolol hold Eliquis pending anemia evaluation CKD 3B cr near baseline, 2.15 no IVF due to fluid overload monitor BMP avoid nephrotoxins when possible class 2 obesity BMI 34.3 weight loss encouraged BPH continue finasteride and Flomax HTN continue amlodipine CAD continue statin Gout continue allopurinol Full code VTE prophylaxis: Pneumoboots pending anemia evaluation Patient with acute CHF exacerbation with bilateral pleural effusions complicated by acute on chronic anemia, requiring admission for at least 2 midnight stay for diuresis, monitoring and further evaluation. Time Spent With Patient Time: Total time managing care of this patient today ____ minutes.
--- NOTE | 2025-08-18 14:39 | PC.NURSE ---
Hospitalist provider notified that blood consent form signed needed, waiting on provider to reply.
--- NOTE | 2025-08-18 16:54 | PC.NURSE ---
Back documentation PT changed and placed on a hospital bed for, pt moved bowels and was cleaned.
--- NOTE | 2025-08-18 16:55 | PC.NURSE ---
Back documentation PT O2 sat at 89% on room air PT put on 2LNC and at 95%.
--- NOTE | 2025-08-18 16:58 | PC.NURSE ---
Back documentation PT's home med Insulin Novolog Mix 70/30 given to this Nurse with instructions per Pt's son and health care proxy. This Nurse gave medication in bag to Pulmonary Disease Specialist Elkie. 1 Patient medication record sheet in pt's chart. PT 's copy at bedside with pt.
--- NOTE | 2025-08-18 17:01 | PC.NURSE ---
Back documentation Son called and updates on PT. PT's son aware that he is getting a blood transfusion.
[2025-08-18 17:13] LABS: Glucose, Whole Blood 203 mg/dL (60-115)
--- NOTE | 2025-08-18 17:54 | PC.NURSE ---
plan per provider charting to infuse one unit of blood and administer iv lasix after transfusion. difficulty in obtaining consent form signatures, blood bank made aware
--- NOTE | 2025-08-18 18:55 | PC.NURSE ---
unit of blood infusing at this time, patient tolerating well.
--- NOTE | 2025-08-18 19:22 | HO.NURTONUR ---
Addendum entered by Kalie Winter RN 08/18/25 19:59: informed by FILEMAKER DEVELOPER during report for pt that furosemide on the MAR is to be given once rbc is done transfusing. Original Note: RN took over care of patient at 1900; pt currently has blood transfusing . He is admitted. No signs of respiratory distress. Pt is AxOx4; hungarian speaking. Able to make needs known. Will continue to monitor. RN will go with pt and bus transportation manager to bring pt to his designated admission room.
[2025-08-18 19:31] LABS: Glucose, Whole Blood 184 mg/dL (60-115)
--- NOTE | 2025-08-18 19:55 | PC.NURSE ---
Back documentation Delay of Insulin coverage due to pt's tray arriving late, POC rechecked and pt provided coverage per sliding scale.
[2025-08-18 21:02] LABS: Glucose, Whole Blood 229 mg/dL (60-115)
[2025-08-18] MEDS: Insulin Glargine,Hum.rec.anlog 100 UNIT/ML 10 ML VIAL 15 UNIT SUBCUT (22:28)
[2025-08-19] VITALS (8 sets, daily range): BP systolic 135–164; BP diastolic 67–76; PULSE 65–97; RESP 16–18; TEMP 35.9–36.5; O2SAT 93–99
[2025-08-19] MEDS: Furosemide 40 MG/4 ML VIAL IVPUSH ×3 (01:01→17:22)
[2025-08-19 07:03] LABS: Hematocrit 30.4 % (42.0-52.0); Hemoglobin 9.2 g/dl (14.0-18.0); Mean Corpuscular HGB Conc 30.3 g/dl (31.0-36.0); Mean Corpuscular Hemoglobin 24.0 pg (27.0-33.0); Mean Corpuscular Volume 79.2 fL (80.0-98.0); NRBC Abs Auto 0.000 X10*3/uL (0.0-0.012); NRBC Pct Auto 0.0 /100WBC (0.0-0.2); PLT CLUMP 1; Red Blood Count 3.84 X10*6/uL (4.60-5.80)
[2025-08-19 07:04] LABS: Anion Gap 13 (12-20); Blood Urea Nitrogen 32 mg/dL (9-16); Calcium 8.5 mg/dL (8.4-10.2); Carbon Dioxide 29 mmol/L (22-29); Chloride 100 mmol/L (96-108); Creatinine Clr Calc Pharmacy 37.1; Estimated Glomerular Filt Rate 35; Potassium 4.3 mmol/L (3.3-5.1); Sodium 138 mmol/L (135-145); White Blood Count 7.0 X10*3/uL (4.8-10.8)
[2025-08-19 07:06] LABS: NT Pro B Type Natriuretic Pept 3379.6 pg/mL (<300)
[2025-08-19 07:16] LABS: Glucose, Whole Blood 247 mg/dL (60-115)
[2025-08-19] MEDS: 0.9 % Sodium Chloride Flush 3 ML SYRINGE IVFLUSH ×3 (08:23→21:44)
[2025-08-19 08:35] LABS: Platelet Count 148 X10*3/uL (160-400)
--- NOTE | 2025-08-19 10:32 | MHC.CM.PN ---
Per ROUNDS discussion, Patient is not yet medically cleared for dc (pending Cardiology & PT Consults); CM will continue to follow.
[2025-08-19 11:12] LABS: Glucose, Whole Blood 264 mg/dL (60-115)
--- NOTE | 2025-08-19 13:22 | P.PNIM_ITS ---
Subjective Subjective Date of Service: 08/19/25 Review of Systems Follow up CHF, anemia no pain or discomfort Physical Exam 2 Exam: Exam: Appearing in no acute distress lung sounds are clear to auscultation heart regular rate rhythm, clear S1, S2 positive bowel sounds, abdomen is soft, nontender neuro patient is alert, confused Vital Signs: Vital Signs: Last Vital Signs Temp 97.5 F 08/19/25 11:48 Pulse 80 08/19/25 11:48 Resp 16 08/19/25 11:48 BP 145/70 H 08/19/25 11:48 Pulse Ox 99 08/19/25 11:48 O2 Del Method Nasal Cannula 08/19/25 11:48 O2 Flow Rate 3.5 08/19/25 11:48 BMI result Body Mass Index 30.6 Objective Data Active Medications Acetaminophen (Acetaminophen 325 Mg Tablet) 975 mg PO Q6H PRN PRN Reason: Pain, Mild 1-3,fever,headache Allopurinol (Allopurinol 100 Mg Tablet) 50 mg PO DAILY [facility] Last Admin: 08/19/25 08:13 Dose: 50 mg Documented By: LUCRETIA Calcium Carbonate (Calcium Carbonate 750 Mg Tab.Chew) 750 mg PO Q4H PRN PRN Reason: Heartburn Dextrose (Dextrose 50 % 25 Gm/50 Ml Syringe) 25 gm IVPUSH Q15M PRN; Protocol PRN Reason: per Hypoglycemia Standing Ord. Dextrose (Dextrose 50 % 25 Gm/50 Ml Syringe) 25 gm IVPUSH Q15M PRN; Protocol PRN Reason: per Hypoglycemia Standing Ord. Donepezil HCl (Donepezil Hcl 10 Mg Tablet) 10 mg PO BEDTIME [facility] Last Admin: 08/18/25 22:28 Dose: 10 mg Documented By: MIKEY Finasteride (Finasteride 5 Mg Tablet) 5 mg PO DAILY [facility] Last Admin: 08/19/25 08:14 Dose: 5 mg Documented By: LUCRETIA Furosemide (Furosemide 40 Mg/4 Ml Vial) 40 mg IVPUSH BID@0900,1800 [facility]; Protocol Last Admin: 08/19/25 08:14 Dose: 40 mg Documented By: LUCRETIA Gabapentin (Gabapentin 400 Mg Capsule) 800 mg PO BID [facility] Last Admin: 08/19/25 08:13 Dose: 800 mg Documented By: LUCRETIA Glucose (Glucose Gel 15 Gm Gel..Gram.) 15 gm PO Q15M PRN; Protocol PRN Reason: per Hypoglycemia Standing Ord. Glucose (Glucose Gel 15 Gm Gel..Gram.) 15 gm PO Q15M PRN; Protocol PRN Reason: per Hypoglycemia Standing Ord. Insulin Glargine (Insulin Glargine,Hum.Rec.Anlog 100 Unit/Ml 10 Ml Vial) 15 unit SUBCUT BEDTIME [facility] Last Admin: 08/18/25 22:28 Dose: 15 unit Documented By: MIKEY Insulin Human Lispro (Insulin Lispro 100 Unit/Ml 3 Ml Vial) 0 unit SUBCUT QIDAS [facility]; Protocol Last Admin: 08/19/25 13:08 Dose: 6 unit Documented By: LUCRETIA Loratadine (Loratadine 10 Mg Tablet) 10 mg PO DAILY [facility] Last Admin: 08/19/25 08:13 Dose: 10 mg Documented By: LUCRETIA Magnesium Hydroxide (Milk Of Magnesia 30 Ml Oral.Susp) 30 ml PO DAILY PRN PRN Reason: Constipation Magnesium Oxide (Magnesium Oxide 400 Mg Tablet) 400 mg PO DAILY [facility] Last Admin: 08/19/25 08:13 Dose: 400 mg Documented By: LUCRETIA Melatonin (Melatonin 3 Mg Tablet) 6 mg PO BEDTIME PRN PRN Reason: Insomnia Pt Own (Insulin Asp Prt-Insulin Aspart [ Novolog Mix 70-30 U- 100 Insuln] 0 sliding scale dose SUBCUT QIDACHS [facility] On Hold: 08/18/25 17:31 Last Admin: 08/18/25 19:57 Dose: Not Given Documented By: CHRIS Non-Admin Reason: See Note Comments: PT Tray arrived late, POC rechecked pt provided coverage per sliding scale orders. Omeprazole (Omeprazole 20 Mg Capsule.) 20 mg PO BID@0630,1630 [facility] Last Admin: 08/19/25 05:45 Dose: 20 mg Documented By: MIKEY Ondansetron HCl (Ondansetron Hcl 4 Mg/2 Ml Vial) 4 mg IVPUSH Q8H PRN PRN Reason: Nausea and Vomiting Oxycodone HCl (Oxycodone Hcl Immed Release 5 Mg Tablet) 5 mg PO Q6H PRN PRN Reason: Pain, Severe (Pain Scale 7-10) Sodium Chloride (0.9 % Sodium Chloride Flush 3 Ml Syringe) 3 ml IVFLUSH QSHIFT [facility] Last Admin: 08/19/25 08:23 Dose: 3 ml Documented By: LUCRETIA Sucralfate (Sucralfate 1 Gm Tablet) 1 gm PO TIDAC [facility] Last Admin: 08/19/25 13:09 Dose: 1 gm Documented By: LUCRETIA Tamsulosin HCl (Tamsulosin Hcl 0.4 Mg Capsule) 0.4 mg PO BEDTIME [facility] Last Admin: 08/18/25 22:28 Dose: 0.4 mg Documented By: MIKEY Tramadol HCl (Tramadol Hcl 50 Mg Tablet) 50 mg PO Q6H PRN PRN Reason: Pain, Moderate(Pain Scale 4-6) Labs 08/19/25 06:20 08/19/25 06:20 Labs: Laboratory Results - last 24 hr 08/18/25 08/18/25 08/18/25 14:05 17:08 19:27 MCV MCH MCHC RDW Plt Count MPV Absolute Nucleated RBC Nucleated RBC % (auto) Anion Gap Estim Creat Clear Calc Estimated GFR POC Glucose 203 H 184 H Random Glucose Calcium NT-Pro-B Natriuret Pep Blood Type A Positive Antibody Screen NEGATIVE Crossmatch See Detail 08/18/25 08/19/25 08/19/25 20:52 06:20 06:20 MCV 79.2 L MCH 24.0 L MCHC 30.3 L RDW 18.3 H Plt Count 148 L MPV 12.3 Absolute Nucleated RBC 0.000 Nucleated RBC % (auto) 0.0 Anion Gap Cancelled 13 Estim Creat Clear Calc Cancelled Estimated GFR POC Glucose 229 H Random Glucose Calcium NT-Pro-B Natriuret Pep Blood Type Antibody Screen Crossmatch 08/19/25 08/19/25 08/19/25 06:20 06:20 06:20 MCV MCH MCHC RDW Plt Count MPV Absolute Nucleated RBC Nucleated RBC % (auto) Anion Gap Estim Creat Clear Calc 37.1 Estimated GFR Cancelled 35 POC Glucose Random Glucose Cancelled 251 H Calcium Cancelled NT-Pro-B Natriuret Pep Blood Type Antibody Screen Crossmatch 08/19/25 08/19/25 08/19/25 06:20 07:07 11:02 MCV MCH MCHC RDW Plt Count MPV Absolute Nucleated RBC Nucleated RBC % (auto) Anion Gap Estim Creat Clear Calc Estimated GFR POC Glucose 247 H 264 H Random Glucose Calcium 8.5 NT-Pro-B Natriuret Pep 3379.6 H Blood Type Antibody Screen Crossmatch Assessment and Plan (1) Acute exacerbation of CHF (congestive heart failure): Status: Acute Plan 80-year-old male with a past medical history significant for dementia, AFib on Eliquis, HFpEF, BPH, NSTEMI, gout, CAD, CKD 3B and history upper GI bleed, who presented to the ED due to shortness of breath via EMS. Acute CHF exacerbation with bilateral pleural effusions no leukocytosis, vitals stable, afebrile, no infection identified chest x-ray with Bilateral basilar infiltrates or edema and small layering pleural effusions. ProBNP elevated at 6270.9, down to 3379.6 EKG with chronic AFib, rate controlled troponin negative last echo 06/2025 with EF 60%, repeat pending Lasix IV 40 mg BID cardiology consult pending Acute on chronic iron def anemia hemoglobin 7 from 9.1 on 07/27/2025 no obvious bleeding sources at this time iron 18, Iron infusion x2 I unit PRBC ordered, lasix after with good effect Type 2 diabetes diabetic diet has home insulin in pharmacy but BS on lower side so will stay with hospital SS sliding scale insulin Lantus Chronic AFib EKG with AFib, rate controlled metoprolol restarted eliquis today after anemia eval CKD 3B cr near baseline, 2.15 no IVF due to fluid overload monitor BMP avoid nephrotoxins when possible class 2 obesity BMI 34.3 weight loss encouraged BPH continue finasteride and Flomax HTN continue amlodipine CAD continue asa and statin Gout continue allopurinol Obesity class 1. BMI 30.6 Discussed importance of weight management as this may be contributing to worsening of other comorbidities Full code VTE prophylaxis: eliquis Patient with acute CHF exacerbation with bilateral pleural effusions complicated by acute on chronic anemia, requiring admission for at least 2 midnight stay for diuresis, monitoring and further evaluation. Quality Stroke Does the patient have a stroke diagnosis?: No VTE Prior VTE?: No VTE Risk Level:: Medical - moderate - high VTE Device Contraindication: N/A - Device Ordered VTE Drug Contraindication: Treatment Not Indicated
[2025-08-19 16:42] LABS: Glucose, Whole Blood 304 mg/dL (60-115)
--- NOTE | 2025-08-19 17:07 | P.CONCA_ITS ---
History of Present Illness History of Present Illness Date of Service: 08/19/25 Chief complaint: CHF Narrative: [age] year gentleman with background history of chronic kidney disease, obesity who is on chronic anticoagulation presenting with shortness of breath. He has noticed to be anemic. Imaging raise concern for congestive heart failure. The patient was seen at bedside with a sign language interpreter. He was on supplemental oxygen. He said he does not use oxygen at home. He is denying any dyspnea currently. No chest discomfort. Denying any bleeding. No active complaints to report. [facility] Past Medical History Medical History (Updated 08/18/25 @ 05:54 by Alona Muñiz PA-C) Abscess of back Cardiomyopathy Class 1 obesity Chronic anemia CHF (congestive heart failure) Alzheimer's dementia Chronic atrial fibrillation CKD stage 3b, GFR 30-44 ml/min CHF exacerbation Diabetes mellitus Acute hypoxic respiratory failure Pneumonia Pneumonia Acute respiratory failure Hypoxia CAD (coronary artery disease) Trash foot Diabetic foot infection Heart failure with preserved ejection fraction HLD (hyperlipidemia) Atrial fibrillation NSTEMI (non-ST elevated myocardial infarction) Kidney failure Diabetes HTN (hypertension) Family History Family History Father No problems noted. Mother No problems noted. Surgical History Surgical History Status post laser cataract surgery of both eyes No pertinent past surgical history Social History Social History Household Members: Children Household Members Other:: sons and daughter in law Housing: House Do you presently have visiting nurse or other home services: No Alcohol intake: never Patient Tobacco Use Status: Never used Tobacco e-Cigarette/Vaping Use: Never Used Second Hand Smoke Exposure: No Advance Directives Date on File: 09/06/21 service: No Current occupational status: retired Meds Allergies Allergy/AdvReac Type Severity Reaction Status Date / Time No Known Allergies Allergy Verified 08/18/25 02:07 Active Medications: Current Medications Acetaminophen (Acetaminophen 325 Mg Tablet) 975 mg PO Q6H PRN PRN Reason: Pain, Mild 1-3,fever,headache Allopurinol (Allopurinol 100 Mg Tablet) 50 mg PO DAILY [facility] Last Admin: 08/19/25 08:13 Dose: 50 mg Amlodipine Besylate (Amlodipine Besylate 2.5 Mg Tablet) 2.5 mg PO DAILY [facility]; Protocol Apixaban (Apixaban 2.5 Mg Tablet) 2.5 mg PO BID [facility] Aspirin (Aspirin 81 Mg Tab.Chew) 81 mg PO DAILY [facility] Atorvastatin Calcium (Atorvastatin Calcium 40 Mg Tablet) 40 mg PO BEDTIME [facility] Calcium Carbonate (Calcium Carbonate 750 Mg Tab.Chew) 750 mg PO Q4H PRN PRN Reason: Heartburn Dextrose (Dextrose 50 % 25 Gm/50 Ml Syringe) 25 gm IVPUSH Q15M PRN; Protocol PRN Reason: per Hypoglycemia Standing Ord. Dextrose (Dextrose 50 % 25 Gm/50 Ml Syringe) 25 gm IVPUSH Q15M PRN; Protocol PRN Reason: per Hypoglycemia Standing Ord. Donepezil HCl (Donepezil Hcl 10 Mg Tablet) 10 mg PO BEDTIME [facility] Last Admin: 08/18/25 22:28 Dose: 10 mg Finasteride (Finasteride 5 Mg Tablet) 5 mg PO DAILY [facility] Last Admin: 08/19/25 08:14 Dose: 5 mg Furosemide (Furosemide 40 Mg/4 Ml Vial) 40 mg IVPUSH BID@0900,1800 [facility]; Protocol Last Admin: 08/19/25 08:14 Dose: 40 mg Gabapentin (Gabapentin 400 Mg Capsule) 800 mg PO BID [facility] Last Admin: 08/19/25 08:13 Dose: 800 mg Glucose (Glucose Gel 15 Gm Gel..Gram.) 15 gm PO Q15M PRN; Protocol PRN Reason: per Hypoglycemia Standing Ord. Glucose (Glucose Gel 15 Gm Gel..Gram.) 15 gm PO Q15M PRN; Protocol PRN Reason: per Hypoglycemia Standing Ord. Iron Sucrose 200 mg/ Sodium (Chloride) 110 mls @ 440 mls/hr IV DAILY@1700 [facility] Stop: 08/21/25 16:59 Insulin Glargine (Insulin Glargine,Hum.Rec.Anlog 100 Unit/Ml 10 Ml Vial) 15 unit SUBCUT BEDTIME [facility] Last Admin: 08/18/25 22:28 Dose: 15 unit Insulin Human Lispro (Insulin Lispro 100 Unit/Ml 3 Ml Vial) 0 unit SUBCUT QIDACHS [facility]; Protocol Last Admin: 08/19/25 13:08 Dose: 6 unit Loratadine (Loratadine 10 Mg Tablet) 10 mg PO DAILY [facility] Last Admin: 08/19/25 08:13 Dose: 10 mg Magnesium Hydroxide (Milk Of Magnesia 30 Ml Oral.Susp) 30 ml PO DAILY PRN PRN Reason: Constipation Magnesium Oxide (Magnesium Oxide 400 Mg Tablet) 400 mg PO DAILY [facility] Last Admin: 08/19/25 08:13 Dose: 400 mg Melatonin (Melatonin 3 Mg Tablet) 6 mg PO BEDTIME PRN PRN Reason: Insomnia Metoprolol Tartrate (Metoprolol Tartrate 25 Mg Tablet) 25 mg PO BID [facility]; Protocol Pt Own (Insulin Asp Prt-Insulin Aspart [ Novolog Mix 70-30 U- 100 Insuln] 0 sliding scale dose SUBCUT QIDACHS [facility] On Hold: 08/18/25 17:31 Last Admin: 08/18/25 19:57 Dose: Not Given Omeprazole (Omeprazole 20 Mg Capsule.Dr) 20 mg PO BID@0630,1630 [facility] Last Admin: 08/19/25 05:45 Dose: 20 mg Ondansetron HCl (Ondansetron Hcl 4 Mg/2 Ml Vial) 4 mg IVPUSH Q8H PRN PRN Reason: Nausea and Vomiting Oxycodone HCl (Oxycodone Hcl Immed Release 5 Mg Tablet) 5 mg PO Q6H PRN PRN Reason: Pain, Severe (Pain Scale 7-10) Sodium Chloride (0.9 % Sodium Chloride Flush 3 Ml Syringe) 3 ml IVFLUSH QSHIFT [facility] Last Admin: 08/19/25 08:23 Dose: 3 ml Sucralfate (Sucralfate 1 Gm Tablet) 1 gm PO TIDAC [facility] Last Admin: 08/19/25 13:09 Dose: 1 gm Tamsulosin HCl (Tamsulosin Hcl 0.4 Mg Capsule) 0.4 mg PO BEDTIME [facility] Last Admin: 08/18/25 22:28 Dose: 0.4 mg Tramadol HCl (Tramadol Hcl 50 Mg Tablet) 50 mg PO Q6H PRN PRN Reason: Pain, Moderate(Pain Scale 4-6) Home Medications ?Medication ?Instructions ?Recorded ?Confirmed ?Last Taken ?Type donepezil 10 mg tablet 10 mg PO BEDTIME 09/05/2102/27/25 History hcxlzvof-jqp-hfhnq acid 0.4 1 tab PO DAILY 09/05/2102/27/25 History mg-lycopene 300 mcg-lutein 250 mcg tablet ([facility]) allopurinol 100 mg tablet 50 mg PO DAILY gout pain 11/1508/18/25 02/27/25 History insulin syringe-needle U-100 1 mL #10 ea 12/22/2102/2402/27/25 History 31 gauge x 04/10 memantine 10 mg tablet 10 mg PO BID 05/08/2202/27/25 History cetirizine 10 mg tablet 10 mg PO DAILY congestion 08/18/25 02/27/25 History omeprazole 20 mg capsule,delayed 20 mg PO BID@0630,163 0 05/17/24 08/18/25 02/27/25 History release sucralfate 1 gram tablet 1 g PO TIDAC 05/17/2402/27/25 History magnesium oxide 250 mg PO DAILY 11/25/2402/27/25 History insulin aspar prt-insulin aspart 76 unit subcut BIDWM 12/24/24 08/18/25 02/27/25 History 100 unit/mL (70-30) subcutaneous soln (Novolog Mix 70-30 U-100 Insuln) diphenhydramine HCl 25 mg tablet 12.5 mg PO BEDTIME [place] N Allergy 01/08/25 08/18/25 02/27/25 History (Nell-Dryl) Symptoms dapagliflozin propanediol 5 mg 5 mg PO DAILY 02/27/25 08/18/25 02/27/25 History tablet (Farxiga) amlodipine 2.5 mg tablet 2.5 mg PO DAILY 03/08/25 Unknown History gabapentin 800 mg tablet 800 mg PO BID 07/21/2508/18 Unknown History insulin aspar prt-insulin aspart 1 sliding scale dose subcut 08/12/25 08/18/25 Unknown History 100 unit/mL (70-30) subcutaneous USEASDIRECTD soln (Novolog Mix 70-30 U-100 Insuln) wzyaisxd-qal-eurme acid 0.4 1 tab PO DAILY 08/12/25 Unknown History mg-lycopene 300 mcg-lutein 250 mcg tablet ([facility]) Physical Exam 2 Vital Signs: Vital Signs: Last Vital Signs Temp 97.3 F 08/19/25 15:43 Pulse 85 08/19/25 15:43 Resp 16 08/19/25 15:43 BP 135/72 08/19/25 15:43 Pulse Ox 94 08/19/25 15:43 O2 Del Method Room Air 08/19/25 15:43 O2 Flow Rate 2 08/19/25 11:48 BMI result Body Mass Index 30.6 GENERAL APPEARANCE: in no acute distress, pleasant. NECK: no carotid bruit, no jugular venous distention. SKIN: no suspicious lesions, warm and dry. HEART: no murmurs, regular rate and rhythm. LUNGS: clear to auscultation bilaterally. ABDOMEN: soft, nontender. EXTREMITIES: no edema. PERIPHERAL PULSES: equal. NEUROLOGIC: No gross deficits, AAO X 3 Objective Labs and Meds 08/19/25 06:20 08/19/25 06:20 Lab results: Laboratory Results - last 24 hr 08/18/25 08/18/25 08/18/25 14:05 17:08 19:27 WBC RBC Hgb Hct MCV MCH MCHC RDW Plt Count MPV Absolute Nucleated RBC Nucleated RBC % (auto) Sodium Potassium Chloride Carbon Dioxide Anion Gap BUN Creatinine Estim Creat Clear Calc Estimated GFR POC Glucose 203 H 184 H Random Glucose Calcium NT-Pro-B Natriuret Pep Blood Type A Positive Antibody Screen NEGATIVE Crossmatch See Detail 08/18/25 08/19/25 08/19/25 20:52 06:20 06:20 WBC 7.0 RBC 3.84 L Hgb 9.2 L Hct 30.4 L MCV 79.2 L MCH 24.0 L MCHC 30.3 L RDW 18.3 H Plt Count 148 L MPV 12.3 Absolute Nucleated RBC 0.000 Nucleated RBC % (auto) 0.0 Sodium Cancelled 138 Potassium Cancelled Chloride Carbon Dioxide Anion Gap BUN Creatinine Estim Creat Clear Calc Estimated GFR POC Glucose 229 H Random Glucose Calcium NT-Pro-B Natriuret Pep Blood Type Antibody Screen Crossmatch 08/19/25 08/19/25 08/19/25 06:20 06:20 06:20 WBC RBC Hgb Hct MCV MCH MCHC RDW Plt Count MPV Absolute Nucleated RBC Nucleated RBC % (auto) Sodium Potassium 4.3 Chloride Cancelled 100 Carbon Dioxide Cancelled 29 Anion Gap Cancelled BUN Creatinine Estim Creat Clear Calc Estimated GFR POC Glucose Random Glucose Calcium NT-Pro-B Natriuret Pep Blood Type Antibody Screen Crossmatch 08/19/25 08/19/25 08/19/25 06:20 06:20 06:20 WBC RBC Hgb Hct MCV MCH MCHC RDW Plt Count MPV Absolute Nucleated RBC Nucleated RBC % (auto) Sodium Potassium Chloride Carbon Dioxide Anion Gap 13 BUN Cancelled 32 H Creatinine Cancelled 1.85 H Estim Creat Clear Calc Cancelled Estimated GFR POC Glucose Random Glucose Calcium NT-Pro-B Natriuret Pep Blood Type Antibody Screen Crossmatch 08/19/25 08/19/25 08/19/25 06:20 06:20 06:20 WBC RBC Hgb Hct MCV MCH MCHC RDW Plt Count MPV Absolute Nucleated RBC Nucleated RBC % (auto) Sodium Potassium Chloride Carbon Dioxide Anion Gap BUN Creatinine Estim Creat Clear Calc 37.1 Estimated GFR Cancelled 35 POC Glucose Random Glucose Cancelled 251 H Calcium Cancelled NT-Pro-B Natriuret Pep Blood Type Antibody Screen Crossmatch 08/19/25 08/19/25 08/19/25 06:20 07:07 11:02 WBC RBC Hgb Hct MCV MCH MCHC RDW Plt Count MPV Absolute Nucleated RBC Nucleated RBC % (auto) Sodium Potassium Chloride Carbon Dioxide Anion Gap BUN Creatinine Estim Creat Clear Calc Estimated GFR POC Glucose 247 H 264 H Random Glucose Calcium 8.5 NT-Pro-B Natriuret Pep 3379.6 H Blood Type Antibody Screen Crossmatch 08/19/25 16:38 WBC RBC Hgb Hct MCV MCH MCHC RDW Plt Count MPV Absolute Nucleated RBC Nucleated RBC % (auto) Sodium Potassium Chloride Carbon Dioxide Anion Gap BUN Creatinine Estim Creat Clear Calc Estimated GFR POC Glucose 304 H Random Glucose Calcium NT-Pro-B Natriuret Pep Blood Type Antibody Screen Crossmatch Assessment and Plan (1) Acute exacerbation of CHF (congestive heart failure): Status: Acute Plan Pleasant 80-year-old gentleman with acute exacerbation of heart failure in the setting of anemia. He is on chronic anticoagulation and came with hemoglobin 7. Clinically appears to be euvolemic and is denying any symptoms currently 2. Transitioned to oral diuretics. If transfusion done then IV diuretics should be used. Etiology of anemia should be worked up and Eliquis should be held for now. He is also taking baby aspirin. We will follow along with you. Thank you for allowing me to participate in the care of your patient. Please feel free to contact me if you have any questions. Procedures Date of Service Date of Service: 08/19/25
[2025-08-19 21:20] LABS: Glucose, Whole Blood 292 mg/dL (60-115)
[2025-08-19] MEDS: Insulin Glargine,Hum.rec.anlog 100 UNIT/ML 10 ML VIAL 15 UNIT SUBCUT (21:43)
[2025-08-20] VITALS (9 sets, daily range): BP systolic 123–153; BP diastolic 64–78; PULSE 70–86; RESP 16–19; TEMP 36.1–36.7; O2SAT 92–96
[2025-08-20 07:02] LABS: Anion Gap 15 (12-20); Blood Urea Nitrogen 34 mg/dL (9-16); Calcium 9.0 mg/dL (8.4-10.2); Carbon Dioxide 31 mmol/L (22-29); Chloride 96 mmol/L (96-108); Creatinine Clr Calc Pharmacy 35.2; Estimated Glomerular Filt Rate 33; Potassium 4.3 mmol/L (3.3-5.1); Sodium 138 mmol/L (135-145)
[2025-08-20 07:08] LABS: Hematocrit 32.3 % (42.0-52.0); Hemoglobin 9.9 g/dl (14.0-18.0); Mean Corpuscular HGB Conc 30.7 g/dl (31.0-36.0); Mean Corpuscular Hemoglobin 24.4 pg (27.0-33.0); Mean Corpuscular Volume 79.6 fL (80.0-98.0); NRBC Abs Auto 0.000 X10*3/uL (0.0-0.012); NRBC Pct Auto 0.0 /100WBC (0.0-0.2); Platelet Count 185 X10*3/uL (160-400); Red Blood Count 4.06 X10*6/uL (4.60-5.80); White Blood Count 8.1 X10*3/uL (4.8-10.8)
[2025-08-20 07:20] LABS: Glucose, Whole Blood 357 mg/dL (60-115)
[2025-08-20] MEDS: 0.9 % Sodium Chloride Flush 3 ML SYRINGE IVFLUSH ×3 (08:31→22:41)
[2025-08-20 11:25] LABS: Glucose, Whole Blood 301 mg/dL (60-115)
--- NOTE | 2025-08-20 12:37 | MHC.CM.PN ---
PT is recommending home with services; CM will follow.
[2025-08-20] MEDS: INSULIN ASP PRT INSULIN ASPART 20 EACH SUBCUT (14:41)
[2025-08-20 16:17] LABS: Glucose, Whole Blood 276 mg/dL (60-115)
--- NOTE | 2025-08-20 16:54 | HO.PM.IMPN ---
Subjective Subjective Date of Service: 08/20/25 Interval History: No acute issues overnight. No cardiac complaints. Sugars remain elevated compared to home (all information gleaned via flagger) Review of Systems Denies chest pain Denies shortness of breath Denies nausea vomiting diarrhea Denies fever chills Physical Exam Vital Signs: Vital Signs: Last Vital Signs Temp 97.1 F 08/20/25 15:20 Pulse 84 08/20/25 15:20 Resp 17 08/20/25 15:20 BP 123/64 08/20/25 15:20 Pulse Ox 92 08/20/25 15:20 O2 Del Method Room Air 08/20/25 15:20 O2 Flow Rate 2 08/19/25 11:48 BMI result Body Mass Index 30.6 Const: Other: Awake alert oriented x3 in no acute distress Resp: Other: Clear to auscultation bilaterally no rales rhonchi or wheezes Cardio: Other: No S4; positive S1-S2; no S3 murmurs rubs or gallops GI: Other: Soft nontender nondistended normoactive bowel sounds Extrem: Other: No edema bilaterally Objective Data Active Medications Acetaminophen (Acetaminophen 325 Mg Tablet) 975 mg PO Q6H PRN PRN Reason: Pain, Mild 1-3,fever,headache Allopurinol (Allopurinol 100 Mg Tablet) 50 mg PO DAILY [facility] Last Admin: 08/20/25 08:29 Dose: 50 mg Documented By: LA NENA Amlodipine Besylate (Amlodipine Besylate 2.5 Mg Tablet) 2.5 mg PO DAILY [facility]; Protocol Last Admin: 08/20/25 08:30 Dose: 2.5 mg Documented By: LA NENA Apixaban (Apixaban 2.5 Mg Tablet) 2.5 mg PO BID [facility] Last Admin: 08/20/25 08:30 Dose: 2.5 mg Documented By: LA NENA Aspirin (Aspirin 81 Mg Tab.Chew) 81 mg PO DAILY [facility] Last Admin: 08/20/25 08:31 Dose: 81 mg Documented By: LA NENA Atorvastatin Calcium (Atorvastatin Calcium 40 Mg Tablet) 40 mg PO BEDTIME [facility] Last Admin: 08/19/25 21:42 Dose: 40 mg Documented By: MIKEY Calcium Carbonate (Calcium Carbonate 750 Mg Tab.Chew) 750 mg PO Q4H PRN PRN Reason: Heartburn Dextrose (Dextrose 50 % 25 Gm/50 Ml Syringe) 25 gm IVPUSH Q15M PRN; Protocol PRN Reason: per Hypoglycemia Standing Ord. Dextrose (Dextrose 50 % 25 Gm/50 Ml Syringe) 25 gm IVPUSH Q15M PRN; Protocol PRN Reason: per Hypoglycemia Standing Ord. Donepezil HCl (Donepezil Hcl 10 Mg Tablet) 10 mg PO BEDTIME [facility] Last Admin: 08/19/25 21:42 Dose: 10 mg Documented By: MIKEY Empagliflozin (Empagliflozin 10 Mg Tablet) 10 mg PO DAILY [facility] Finasteride (Finasteride 5 Mg Tablet) 5 mg PO DAILY [facility] Last Admin: 08/20/25 08:30 Dose: 5 mg Documented By: LA NENA Furosemide (Furosemide 40 Mg Tablet) 40 mg PO DAILY [facility]; Protocol Last Admin: 08/20/25 08:30 Dose: 40 mg Documented By: LA NENA Gabapentin (Gabapentin 400 Mg Capsule) 800 mg PO BID [facility] Last Admin: 08/20/25 08:30 Dose: 800 mg Documented By: LA NENA Glucose (Glucose Gel 15 Gm Gel..Gram.) 15 gm PO Q15M PRN; Protocol PRN Reason: per Hypoglycemia Standing Ord. Glucose (Glucose Gel 15 Gm Gel..Gram.) 15 gm PO Q15M PRN; Protocol PRN Reason: per Hypoglycemia Standing Ord. Iron Sucrose 200 mg/ Sodium (Chloride) 110 mls @ 440 mls/hr IV DAILY@1700 [facility] Stop: 08/21/25 16:59 Last Infusion: 08/19/25 17:50 Dose: Infused Documented By: LUCRETIA Insulin Glargine (Insulin Glargine,Hum.Rec.Anlog 100 Unit/Ml 10 Ml Vial) 15 unit SUBCUT BEDTIME [facility] Last Admin: 08/19/25 21:43 Dose: 15 unit Documented By: MIKEY Insulin Human Lispro (Insulin Lispro 100 Unit/Ml 3 Ml Vial) 0 unit SUBCUT QIDACHS [facility]; Protocol Last Admin: 08/20/25 11:48 Dose: 8 unit Documented By: LA NENA Loratadine (Loratadine 10 Mg Tablet) 10 mg PO DAILY [facility] Last Admin: 08/20/25 08:31 Dose: 10 mg Documented By: LA NENA Magnesium Hydroxide (Milk Of Magnesia 30 Ml Oral.Susp) 30 ml PO DAILY PRN PRN Reason: Constipation Magnesium Oxide (Magnesium Oxide 400 Mg Tablet) 400 mg PO DAILY [facility] Last Admin: 08/20/25 08:30 Dose: 400 mg Documented By: LA NENA Melatonin (Melatonin 3 Mg Tablet) 6 mg PO BEDTIME PRN PRN Reason: Insomnia Metoprolol Tartrate (Metoprolol Tartrate 25 Mg Tablet) 25 mg PO BID [facility]; Protocol Last Admin: 08/20/25 08:30 Dose: 25 mg Documented By: LA NENA Pt Own (Insulin Asp Prt-Insulin Aspart [ Novolog Mix 70-30 U- 100 Insuln] 0 sliding scale dose SUBCUT QIDACHS [facility] On Hold: 08/18/25 17:31 Last Admin: 08/18/25 19:57 Dose: Not Given Documented By: CHRIS Non-Admin Reason: See Note Comments: PT Tray arrived late, POC rechecked pt provided coverage per sliding scale orders. Omeprazole (Omeprazole 20 Mg Capsule.) 20 mg PO BID@0630,1630 [facility] Last Admin: 08/20/25 05:52 Dose: 20 mg Documented By: MIKEY Ondansetron HCl (Ondansetron Hcl 4 Mg/2 Ml Vial) 4 mg IVPUSH Q8H PRN PRN Reason: Nausea and Vomiting Oxycodone HCl (Oxycodone Hcl Immed Release 5 Mg Tablet) 5 mg PO Q6H PRN PRN Reason: Pain, Severe (Pain Scale 7-10) Sodium Chloride (0.9 % Sodium Chloride Flush 3 Ml Syringe) 3 ml IVFLUSH QSHIFT [facility] Last Admin: 08/20/25 08:31 Dose: 3 ml Documented By: LA NENA Sucralfate (Sucralfate 1 Gm Tablet) 1 gm PO TIDAC [facility] Last Admin: 08/20/25 11:48 Dose: 1 gm Documented By: LA NENA Tamsulosin HCl (Tamsulosin Hcl 0.4 Mg Capsule) 0.4 mg PO BEDTIME [facility] Last Admin: 08/19/25 21:43 Dose: 0.4 mg Documented By: MIKEY Tramadol HCl (Tramadol Hcl 50 Mg Tablet) 50 mg PO Q6H PRN PRN Reason: Pain, Moderate(Pain Scale 4-6) Labs 08/20/25 06:18 08/20/25 06:18 Labs: Laboratory Results - last 24 hr 08/19/25 08/20/25 08/20/25 21:15 06:18 07:17 MCV 79.6 L MCH 24.4 L MCHC 30.7 L RDW 18.6 H Plt Count 185 MPV 12.2 Absolute Nucleated RBC 0.000 Nucleated RBC % (auto) 0.0 Anion Gap 15 Estim Creat Clear Calc 35.2 Estimated GFR 33 POC Glucose 292 H 357 H* Random Glucose 339 H Calcium 9.0 08/20/25 08/20/25 11:15 16:05 MCV MCH MCHC RDW Plt Count MPV Absolute Nucleated RBC Nucleated RBC % (auto) Anion Gap Estim Creat Clear Calc Estimated GFR POC Glucose 301 H 276 H Random Glucose Calcium Assessment and Plan (1) Acute exacerbation of CHF (congestive heart failure): Status: Acute (2) CKD stage 3b, GFR 30-44 ml/min: Status: Chronic Plan 80-year-old male with a past medical history significant for dementia, AFib on Eliquis, HFpEF, BPH, NSTEMI, gout, CAD, CKD 3B and history upper GI bleed, who presented to the ED due to shortness of breath via EMS. 1.Acute CHF exacerbation with bilateral pleural effusions -markedly improved -doing well with p.o. Lasix -continue outpatient therapies 2. Chronic atrial fibrillation -acceptable rate control on current therapies -adjust as indicated -resume Eliquis 3.Acute on chronic iron def anemia -hemoglobin stable -restart Eliquis and check CBC in a.m.. -we will discuss outpatient follow up with GI in a.m. 4.Type 2 diabetes -sugars remain elevated as compared to home per son -son brought inpatient insulin; 70/30 -we will give 20 units tonight and follow sugars in a.m. 5.CKD 3B -stable and well compensated Full code eliquis Requires ongoing inpatient stay to reach introduced Eliquis and check CBC in a.m. Quality Stroke Does the patient have a stroke diagnosis?: No VTE Prior VTE?: No VTE Risk Level:: Medical - moderate - high VTE Device Contraindication: N/A - Device Ordered VTE Drug Contraindication: Treatment Not Indicated
[2025-08-20 20:19] LABS: Glucose, Whole Blood 246 mg/dL (60-115)
[2025-08-20] MEDS: Insulin Glargine,Hum.rec.anlog 100 UNIT/ML 10 ML VIAL 15 UNIT SUBCUT (22:38)
[2025-08-21 04:00] VITALS: BP 127/70; PULSE 75; RESP 20; TEMP 36.7; O2SAT 93
[2025-08-21 06:17] LABS: MANUAL DIFF FLAG NO
[2025-08-21 06:19] LABS: Hematocrit 31.6 % (42.0-52.0); Hemoglobin 9.4 g/dl (14.0-18.0); Imm Gran Abs Auto 0.04 X10*3/uL (0.00-0.03); Imm Gran Pct Auto 0.5 % (0.0-0.4); Lymphocytes Absolute Auto 1.4 X10*3/uL (1.2-4.9); Mean Corpuscular HGB Conc 29.7 g/dl (31.0-36.0); Mean Corpuscular Hemoglobin 24.7 pg (27.0-33.0); Mean Corpuscular Volume 82.9 fL (80.0-98.0); NRBC Abs Auto 0.000 X10*3/uL (0.0-0.012); NRBC Pct Auto 0.0 /100WBC (0.0-0.2); Platelet Count 185 X10*3/uL (160-400); Red Blood Count 3.81 X10*6/uL (4.60-5.80); White Blood Count 8.4 X10*3/uL (4.8-10.8)
[2025-08-21 06:37] LABS: Alanine Aminotransferase < 6 U/L (0-40); Albumin Level 3.4 g/dL (3.5-5.0); Alkaline Phosphatase 102 U/L (39-117); Anion Gap 15 (12-20); Aspartate Amino Transferase 18 U/L (5-37); Blood Urea Nitrogen 32 mg/dL (9-16); Calcium 8.4 mg/dL (8.4-10.2); Carbon Dioxide 29 mmol/L (22-29); Chloride 99 mmol/L (96-108); Creatinine Clr Calc Pharmacy 37.5; Estimated Glomerular Filt Rate 36; Potassium 4.5 mmol/L (3.3-5.1); Sodium 138 mmol/L (135-145); Total Protein 6.7 g/dL (6.5-8.0)
[2025-08-21 06:58] VITALS: BP 156/74; PULSE 78; RESP 16; TEMP 36.3; O2SAT 94
[2025-08-21 07:03] LABS: Glucose, Whole Blood 315 mg/dL (60-115)
[2025-08-21] MEDS: 0.9 % Sodium Chloride Flush 3 ML SYRINGE IVFLUSH (08:15)
--- NOTE | 2025-08-21 09:09 | P.CDIM_ITS ---
PROVIDER RESPONSE TEXT: To clarify, the appropriate diagnosis supported by the clinical indicators: Diabetes mellitus Type 2 with hyperglycemia: suspected QUERY TEXT: PHYSICIAN'S DOCUMENTATION REQUEST Date of Query: 08/21/2025 05:48 AM EDT Patient Name: Dayton Oquendo Admit Date: 08/18/2025 Dear Sharan Pelletier DO, A review of the medical record indicates additional documentation may be needed. Please review below and update the documentation accordingly. Clinical Indicators: LABS: POC glucose - 304 H 357 H DM Type 2 Sugars remain elevated as compared to home per son. Insulin Please clarify the following regarding the lab findings: Diabetes mellitus Type 2 with hyperglycemia resolved, possible, probable, suspected etc. Other specified Other (explain) Clinically unable to determine (explain) Thank you, Marian Fabian, CCS, CDIS Use of terms such as suspected, likely, concern for, or probable (associated with a specific diagnosis that is being evaluated, monitored, or treated as if it exists) are acceptable and can be coded in the inpatient setting, when documented at the time of discharge. Please use your independent medical judgment in providing your response. THIS QUERY IS PART OF THE PERMANENT MEDICAL RECORD
[2025-08-21 11:25] VITALS: BP 152/87; PULSE 68; RESP 18; TEMP 36.2; O2SAT 96
[2025-08-21 11:28] LABS: Glucose, Whole Blood 37 mg/dL (60-115)
[2025-08-21 12:06] LABS: Glucose, Whole Blood 312 mg/dL (60-115)
--- NOTE | 2025-08-21 13:28 | P.DS_ITS ---
DS: Providers Provider Date of Service: 08/21/25 Date of admission: 08/18/25 05:31 Date of discharge: 08/21/25 Primary care physician: Kathy Villafana MD Consults: 08/18/25 13:21 Consult to Cardiology Routine Consulting Provider: [facility] Reason for consultation: CHF DS: Diagnosis Discharge Diagnosis (1) Acute exacerbation of CHF (congestive heart failure): Status: Acute (2) CKD stage 3b, GFR 30-44 ml/min: Status: Chronic DS: Summary Hospital Course Hospital Course: 80-year-old Macedonian-speaking male with a past medical history significant for dementia, AFib on Eliquis, HFpEF, BPH, NSTEMI, gout, CAD, CKD 3B and history upper GI bleed, who presented to the ED due to shortness of breath via EMS. When EMS arrived the patient was short of breath however after sitting upwards he had improvement, oxygenation between 95-97%. The onset of symptoms is unclear as the patient has dementia and is unable to provide much history at this time as he is also very drowsy, family members also unsure of the timeline. The patient is currently not expressing any complaints. Workup in the emergency department significant for elevated BNP and pulmonary edema on imaging. Hemoglobin 7.7, down from 9.1 on 07/27/25. He does have a history of GI bleed but expresses no active bleeding sources. Patient was given 40 mg IV Lasix and we will be admitted for acute CHF exacerbation with acute on chronic anemia. Hospital Course Patient was admitted to telemetry where monitor failed to demonstrate any acute dysrhythmias. Was seen in consultation by Cardiology who at the time felt he was adequately diuresed and transitioned to oral diuretics. Echocardiogram was done and demonstrated improvement in EF as compared to most recent. Patient's sugars were labile however patient did not receive his home regimen of 70/30 insulin. Discussed with son he will resume insulin at the sliding scale patient is used to at home. He will follow up PCP and Cardiology as scheduled Time Attestation Discharge Coordination Time (in mins): 35 Quality: Safe Use of Opioids Does Pt have an Active Cancer Diagnosis on the Problem List?: No Quality: Stroke Does the patient have a stroke diagnosis?: No Physical Exam Vital Signs: Vital Signs: Last Vital Signs Temp 97.2 F 08/21/25 11:25 Pulse 68 08/21/25 11:25 Resp 18 08/21/25 11:25 BP 152/87 H 08/21/25 11:25 Pulse Ox 96 08/21/25 11:25 O2 Del Method Room Air 08/21/25 11:25 O2 Flow Rate 2 08/19/25 11:48 BMI result Body Mass Index 30.6 Const: Other: Awake alert oriented x3 in no acute distress Resp: Other: Clear to auscultation bilaterally no rales rhonchi or wheezes Cardio: Other: No S4; positive S1-S2; no S3 murmurs rubs or gallops GI: Other: Soft nontender nondistended normoactive bowel sounds Extrem: Other: No edema bilaterally DS: Data Data Completed and Pending Completed studies during hospitalization [Text1]: Procedures Control Bleeding in Gastrointestinal Tract, Via Natural or Artificial Opening Endoscopic (08/17/23) Excision of Right Foot Skin, External Approach (10/07/21) Excision of Stomach, Pylorus, Via Natural or Artificial Opening Endoscopic, Diagnostic (08/17/23) Insertion of Infusion Device into Upper Vein, Percutaneous Approach (11/27/24) Introduction of Mineral-based Topical Hemostatic Agent into Upper GI, Via Marie ural or Artificial Opening Endoscopic, [employer] 6 (08/17/23) Introduction of Other Therapeutic Substance into Upper GI, Via Natural or Artificial Opening Endoscopic (08/17/23) Transfusion of Nonautologous Frozen Plasma into Peripheral Vein, Percutaneous Approach (08/17/23) Transfusion of Nonautologous Red Blood Cells into Peripheral Vein, Percutaneous Approach (08/17/23) Labs on day of discharge: Laboratory Results - last 24 hr 08/20/25 08/20/25 08/21/25 16:05 20:14 05:58 WBC 8.4 RBC 3.81 L Hgb 9.4 L Hct 31.6 L MCV 82.9 MCH 24.7 L MCHC 29.7 L RDW 19.2 H Plt Count 185 MPV 11.8 Immature Gran % (Auto) 0.5 H Neut % (Auto) 64.6 Lymph % (Auto) 17.1 L [place] % (Auto) 9.5 Eos % (Auto) 7.2 H Baso % (Auto) 1.1 Lymph # (Auto) 1.4 [place] # (Auto) 0.8 Eos # (Auto) 0.6 H Baso # (Auto) 0.1 Abs Immat Gran (auto) 0.04 H Absolute Neuts (auto) 5.5 Absolute Nucleated RBC 0.000 Nucleated RBC % (auto) 0.0 Sodium 138 Potassium 4.5 Chloride 99 Carbon Dioxide 29 Anion Gap 15 BUN 32 H Creatinine 1.83 H Estim Creat Clear Calc 37.5 Estimated GFR 36 POC Glucose 276 H 246 H Fasting Glucose 307 H Calcium 8.4 D Total Bilirubin 0.5 AST 18 ALT < 6 Alkaline Phosphatase 102 Total Protein 6.7 Albumin 3.4 L 08/21/25 08/21/25 08/21/25 06:59 11:25 12:01 WBC RBC Hgb Hct MCV MCH MCHC RDW Plt Count MPV Immature Gran % (Auto) Neut % (Auto) Lymph % (Auto) [place] % (Auto) Eos % (Auto) Baso % (Auto) Lymph # (Auto) [place] # (Auto) Eos # (Auto) Baso # (Auto) Abs Immat Gran (auto) Absolute Neuts (auto) Absolute Nucleated RBC Nucleated RBC % (auto) Sodium Potassium Chloride Carbon Dioxide Anion Gap BUN Creatinine Estim Creat Clear Calc Estimated GFR POC Glucose 315 H 37 L* 312 H Fasting Glucose Calcium Total Bilirubin AST ALT Alkaline Phosphatase Total Protein Albumin Discharge Plan Discharge Anticipated Discharge Date/Time: 08/21/25 13:13 Patient Disposition: Home Health Service Discharge Diagnosis: HFpEF 8 Referrals: Kathy Villafana MD [Primary Care Provider, Internal Medicine] - 1 Week Discharge Medications: Continued finasteride 5 mg tablet 5 mg PO DAILY 90 Days Qty: 90 0RF donepezil 10 mg tablet 10 mg PO BEDTIME CertaVite Senior 0.4-300-250 mg-mcg-mcg tablet 1 tab PO DAILY atorvastatin [Lipitor] 40 mg tablet 40 mg PO BEDTIME Qty: 30 0RF memantine 10 mg tablet 10 mg PO BID allopurinol 100 mg tablet 50 mg PO DAILY (DME) lancets [Lancets,Ultra Thin] Misc See Rx Instructions .Route Qty: 100 0RF Rx Instructions: As directed cetirizine 10 mg tablet 10 mg PO DAILY magnesium oxide 250 mg magnesium tablet 250 mg PO DAILY aspirin 81 mg Tablet,Chewable 81 mg PO DAILY Qty: 60 0RF insulin asp prt-insulin aspart [Novolog Mix 70-30 U-100 Insuln] 100 unit/mL (70-30) solution 76 unit subcut BIDWM Rx Instructions: INJECT 76 UNITS SUBCUTANEOUSLY TWICE DAILY WITH BREAKFAST AND WITH DINNER dapagliflozin propanediol [Farxiga] 5 mg tablet 5 mg PO DAILY amlodipine 2.5 mg tablet 2.5 mg PO DAILY gabapentin 800 mg tablet 800 mg PO BID Eliquis 2.5 mg tablet 2.5 mg PO BID Qty: 90 0RF Rx Instructions: Take one pill twice a day furosemide [Lasix] 40 mg tablet 40 mg PO DAILY Qty: 90 0RF Rx Instructions: Take one tablet once a day metoprolol tartrate 25 mg tablet 25 mg PO BID Qty: 180 0RF Rx Instructions: Take one tablet twice a day omeprazole 20 mg capsule,delayed release(DR/EC) 20 mg PO BID@0630,1630 sucralfate 1 gram tablet 1 g PO TIDAC diphenhydramine HCl [Nell-Dryl] 25 mg tablet 12.5 mg PO BEDTIME PRN (Reason: Allergy Symptoms) polyethylene glycol 3350 [Miralax] 17 gram/dose powder 17 g PO DAILY Qty: 119 0RF (DME) insulin syringe-needle U-100 1 mL 31 gauge x 5/16 syringe See Rx Instructions subcut TID Qty: 10 Rx Instructions: As directed tamsulosin [Flomax] 0.4 mg capsule 0.4 mg PO BEDTIME 90 Days Qty: 90 0RF Cerovite Senior 0.4 mg-300 mcg- 250 mcg tablet 1 tab PO DAILY insulin asp prt-insulin aspart [Novolog Mix 70-30 U-100 Insuln] 100 unit/mL (70-30) solution 1 sliding scale dose subcut USEASDIRECTD Discharge Orders: Discharge Order (Routine); Ordered 08/21/25 Ordered By: Sharan Pelletier Diet: Advance to usual diet Activity on Discharge: As tolerated Stand Alone Forms: Patient Portal Discharge page Print Language: Macedonian Care Plan Goals: Resume all meds as taken prior to hospitalization Health Concerns: Follow up with PCP as scheduled cardiology will call you to arrange follow up Plan of Treatment: Utilize 70/30 insulin as he previously did Assessment: See discharge summary
--- NOTE | 2025-08-21 13:32 | P.F2F_ITS ---
Service Date Service Date: 08/21/25 Encounter Date of encounter: 08/21/25 Encounter: Acute hospitalization Reasons for Services Signs and symptoms assessed: Assess respiratory status and monitor blood sugar Reason for long-term: diabetic teaching and medication management Reason for physical therapy: home safety and mobility and restore joint function Homebound: Leaving the home is medically contraindicated at this time without the asist of a device and/or another person due th the listed conditions above and below. Reason homebound: bedbound/chairbound and unable to drive Certification: Based on the above findings, I certify that this patient is confined to the home and needs intermittent long-term care, physical therapy and/or speech therapy, or continues to need occupational therapy. The patient is under my care, and I have initiated the establishment of the plan of care. The patient will be followed by a physician who will periodically review the plan of care. Time Spent With Patient Time: Total time managing care of this patient today ____ minutes.
--- NOTE | 2025-08-21 13:55 | MHC.CM.PN ---
Addendum entered by Magdalena Patton 08/21/25 14:38: [facility] transport auth # is [id number]. Original Note: Patient has been medically cleared for dc to home today, with services. A referral was made to Idris [facility]OOKS, who has been made aware of today's dc. Patient will dc to home today at 4PM, via [facility]; family is aware.
[2025-08-21 15:30] LABS: Glucose, Whole Blood 106 mg/dL (60-115)
[2025-08-21 15:42] VITALS: BP 128/65; PULSE 62; RESP 14; TEMP 36.3; O2SAT 95
--- NOTE | 2025-09-22 16:02 | P.CDIM_ITS ---
PROVIDER RESPONSE TEXT: To clarify, the appropriate diagnosis supported by the clinical indicators: Obesity Class I QUERY TEXT: PHYSICIAN'S DOCUMENTATION REQUEST Date of Query: 09/02/2025 09:56 AM EDT Patient Name: Dayton Oquendo Admit Date: 08/18/2025 Dear Sharan Pelletier DO, RETROSPECTIVE QUERY A review of the medical record indicates additional documentation may be needed. Please review below and update the documentation accordingly. Clinical Indicators: ED 08/18/2025 - PMH: Obesity class I H&P and Event note - Class 2 Obesity with BMI 34.3 Nursing notes Height and Weight 08/18/25 : Class I with BMI 30.6 96.8kg 5ft 10in Consistency between two noted diagnosis: Obesity Class I Obesity Class II Other (explain) Clinically unable to determine (explain) Thank you, Marian Fabian, CCS, CDIS Use of terms such as suspected, likely, concern for, or probable (associated with a specific diagnosis that is being evaluated, monitored, or treated as if it exists) are acceptable and can be coded in the inpatient setting, when documented at the time of discharge. Please use your independent medical judgment in providing your response. THIS QUERY IS PART OF THE PERMANENT MEDICAL RECORD
== END 2025-08-21 17:00 | disposition home health service (06) | DRG 291 ==
LOC: HO.ED 05:00 → HO.EDOVER 05:36 → HO.IMC 17:54
PROVIDERS: Nurse Practitioner Acute Care; Admitting Provider Physician Assistant; Emergency Provider Emergency Medicine; PCP General Practice; Visit Provider Hospitalist
DX: I13.0 Hypertensive heart and chronic kidney disease with heart failure and stage 1 through stage 4 chronic kidney disease, or unspecified chronic kidney disease (principal); I50.33 Acute on chronic diastolic (congestive) heart failure; I48.20 Chronic atrial fibrillation, unspecified; N18.32 Chronic kidney disease, stage 3b; E11.22 Type 2 diabetes mellitus with diabetic chronic kidney disease; G30.9 Alzheimer's disease, unspecified; F02.80 Dementia in other diseases classified elsewhere, unspecified severity, without behavioral disturbance, psychotic disturbance, mood disturbance, and anxiety; E11.65 Type 2 diabetes mellitus with hyperglycemia; E66.812 Obesity, class 2; D50.9 Iron deficiency anemia, unspecified; Z71.3 Dietary counseling and surveillance; N40.0 Benign prostatic hyperplasia without lower urinary tract symptoms; M10.9 Gout, unspecified; E66.811 Obesity, class 1; Z68.30 Body mass index [BMI] 30.0-30.9, adult; Z68.34 Body mass index [BMI] 34.0-34.9, adult; I25.10 Atherosclerotic heart disease of native coronary artery without angina pectoris; Z79.4 Long term (current) use of insulin; Z79.01 Long term (current) use of anticoagulants; Z79.82 Long term (current) use of aspirin; Z79.899 Other long term (current) drug therapy
CPT/HCPCS: 36415; 71045; 80048; 80053; 82947; 83540; 83735; 83880; 84484; 85025; 85027; 86850; 86900; 86901; 86923; 93005; 97110; 97162; 99285; J1756; J1938; P9016

== ENCOUNTER → 2025-08-18 02:09 | Outpatient (BNV) | payer OTHER, SELFPAY | PROVIDERS: Admitting Provider Physician Assistant; Emergency Provider Emergency Medicine; PCP General Practice; Visit Provider Internal Medicine Cardiovascular Disease | DX: I48.91 Unspecified atrial fibrillation (principal) | CPT/HCPCS: 93010 ==

== ENCOUNTER → 2025-08-18 02:09 | Outpatient (BNV) | payer OTHER, SELFPAY | PROVIDERS: Emergency Provider Emergency Medicine; Visit Provider General Practice | DX: R06.02 Shortness of breath (principal) | CPT/HCPCS: 71045 ==

== ENCOUNTER → 2025-08-18 05:31 | Outpatient (BNV) | payer OTHER, SELFPAY | PROVIDERS: Admitting Provider Physician Assistant; Emergency Provider Emergency Medicine; PCP General Practice; Visit Provider Internal Medicine Cardiovascular Disease | DX: I50.9 Heart failure, unspecified (principal) | CPT/HCPCS: 99222 ==

== ENCOUNTER → 2025-08-18 05:31 | Outpatient (BNV) | payer OTHER, SELFPAY | PROVIDERS: Admitting Provider Physician Assistant; Emergency Provider Emergency Medicine; PCP General Practice; Visit Provider Nurse Practitioner Acute Care | DX: I50.9 Heart failure, unspecified (principal); J90 Pleural effusion, not elsewhere classified; D64.9 Anemia, unspecified; N18.32 Chronic kidney disease, stage 3b; E66.812 Obesity, class 2 | CPT/HCPCS: 99223; 99232; 99499 ==